=== PATIENT | male | born 1970 | race Caucasian/White ===

== ENCOUNTER 2017-04-19 22:22 | Observation (INO) | payer OTHER ==
[~2017-04-19] VITALS: Ht 188 cm; Wt 201.6 kg
[2017-04-19 23:06] LABS: BASOPHILS % 0.4 % (0.0-1.0); EOSINOPHILS # (AUTO) 0.1 (0.0-0.4); EOSINOPHILS % 2.2 % (0.0-6.0); HEMATOCRIT 39.1 % (38.2-49.6); HEMOGLOBIN 13.8 g/dL (14.0-18.0); LYMPHOCYTES # (AUTO) 1.8 (1.0-3.2); MEAN CORPUSCULAR HEMOGLOBIN 31.5 pg (28-32); MEAN CORPUSCULAR HGB CONC 35.3 g/dL (31-35); MEAN CORPUSCULAR VOLUME 89.3 fL (81-99); MONOCYTES # (AUTO) 0.4 (0.2-0.8); MONOCYTES % 6.9 % (4.4-11.3); NEUTROPHILS # (AUTO) 3.2 (2.1-6.9); PLATELET COUNT 202 x10e3/uL (140-360); RED BLOOD COUNT 4.38 x10e6/uL (4.3-5.7); RED CELL DISTRIBUTION WIDTH 14.4 % (11.7-14.4)
[2017-04-19 23:17] LABS: INR 1.19; PROTHROMBIN TIME 14.2 seconds (11.9-14.5)
[2017-04-19 23:18] LABS: PARTIAL THROMBOPLASTIN TIME 33.6 seconds (23.8-35.5)
[2017-04-19 23:28] LABS: ALANINE AMINOTRANSFERASE 37 IU/L (0-55); ALBUMIN 3.8 g/dL (3.5-5.0); ALBUMIN/GLOBULIN RATIO 1.1 (0.8-2.0); ALKALINE PHOSPHATASE 92 IU/L (40-150); ANION GAP 17.2 mmol/L (8-16); BLOOD UREA NITROGEN 11 mg/dL (7-26); BUN/CREATININE RATIO 9 (6-25); CALCIUM 9.3 mg/dL (8.4-10.2); CARBON DIOXIDE 26 mmol/L (22-29); CHLORIDE 100 mmol/L (98-107); CREATINE KINASE 201 IU/L (30-200); CREATININE, SERUM 1.22 mg/dL (0.72-1.25); EST GLOMERULAR FILTRATION RATE > 60 ML/MIN (60-); GLUCOSE 117 mg/dL (74-118); LIPASE 18 U/L (8-78); POTASSIUM 3.2 mmol/L (3.5-5.1); SODIUM 140 mmol/L (136-145)
[2017-04-20] VITALS (8 sets, daily range): BP systolic 98–140; BP diastolic 8–68
--- NOTE | 2017-04-20 00:26 | Diagnostic Imaging Report ---
EXAM: CHEST SINGLE (PORTABLE), AP 1 view INDICATION: Left-sided chest, jaw and arm pain COMPARISON: None FINDINGS: LINES/TUBES: None LUNGS: Perihilar and bibasilar atelectasis and bronchial thickening. PLEURA: No effusions or pneumothorax. HEART AND MEDIASTINUM: The heart is within normal size limits. Upper median sternotomy wires. Nonspecific densities projected over the lower thorax, may be external to the patient. BONES AND SOFT TISSUES: No acute findings. IMPRESSION: Perihilar and bibasilar atelectasis and bronchial thickening. This may be due to low inspiration or infection in the proper clinical setting. Signed by: Dr. Simona Godinez M.D. on 04/20/2017 12:22 AM
--- NOTE | 2017-04-20 00:33 | Diagnostic Imaging Report ---
EXAM: CT CHEST W INDICATION: Left-sided chest, jaw and arm pain COMPARISON: None TECHNIQUE: Multidetector CT scanning of the chest was performed. Coronal and sagittal multiplanar reformations were obtained. PE protocol performed. IV Contrast: 84 cc Isovue-370 CTDIvol has been reviewed. It is below the limits set by the Radiation Protocol Committee (RPC). FINDINGS: LUNGS AND AIRWAYS: The trachea and major bronchi are unremarkable. Limited evaluation for small pulmonary nodules secondary to respiratory artifact. Increased attenuation of the lungs secondary to low inspiration. Right middle lobe and lingular atelectasis and bronchial thickening. Scattered atelectatic changes in the lung bases. PLEURA: No effusions or pneumothorax. HEART, MEDIASTINUM, VESSELS: Mild cardiac enlargement, which may be secondary to low inspiration.. No abnormal pericardial effusion. No thoracic aortic aneurysm. 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 No mediastinal mass. Mildly prominent right hilar lymphoid tissue up to 1.8 cm. No evidence of a pulmonary embolism. UPPER ABDOMEN: No acute finding. MUSCULOSKELETAL: Incidental bilateral gynecomastia. Surgical changes of median sternotomy. IMPRESSION: Low inspiration with predominantly perihilar and right middle lobe atelectasis and bronchial thickening, which could be seen secondary to chronic changes or acute bronchitis. No evidence of a pulmonary embolism. Signed by: Dr. Simona Godinez M.D. on 04/20/2017 12:30 AM
[2017-04-20] MEDS ORDERED: KETOROLAC TROMETHAMINE 30 MG/ML VIAL IV STA (01:54)
[2017-04-20] MEDS ORDERED: POTASSIUM CHLORIDE 20 MEQ TAB CR PO STA (01:55)
[2017-04-20] MEDS ORDERED: ONDANSETRON HCL INJ 2 MG/ML VIAL IV PRN (02:00)
[2017-04-20] MEDS ORDERED: SODIUM CHLORIDE 0.9% 500ML 500 ML IV ONE (02:00)
[2017-04-20] MEDS ORDERED: DEXTROSE 50% SYRINGE 50 ML IV PRN (02:00)
--- OUTSIDE RECORDS SUMMARY | 2017-04-20 02:06 | XMS REPORT | Clinical Summary ---
Author Author Eliel Church Organization [facility] Address Unknown Phone Unavailable Care Team Providers Care Elevator Repairer Name Role Phone Asked, Pcp PCP Unavailable Allergies Active Allergy Reactions Severity Noted Date Comments Ampicillin Rash Low 01/21/2016 Other 10/23/2015 Paper tape Metoclopramide Hcl Rash Low 01/22/2016 Ondansetron Hcl Rash Low 10/23/2015 Current Medications Prescription Sig. Disp. Refills Start End Date Status Date aspirin (ECOTRIN) 325 MG Take 325 mg by mouth Active enteric coated tablet daily. enoxaparin (LOVENOX) 150 Inject 150 mg under the Active mg/mL injection skin daily. clopidogrel (PLAVIX) 75 Take 75 mg by mouth Active mg tablet daily. furosemide (LASIX) 40 mg Take 40 mg by mouth Active tablet daily. metFORMIN (GLUCOPHAGE) Take 1,000 mg by mouth 2 Active 1,000 mg tablet (two) times a day with meals. QUEtiapine (SEROquel) 400 Take 800 mg by mouth Active MG tablet nightly. atorvastatin (LIPITOR) 40 Take 40 mg by mouth 0 01/25/20 Active MG tablet nightly. 16 pantoprazole (PROTONIX) Take 40 mg by mouth once 1 04/12/19 Active 40 MG EC tablet daily. 17 gabapentin (NEURONTIN) Take 300 mg by mouth 3 Active 300 mg capsule (three) times a day as needed (pain). fluticasone-vilanterol Inhale 1 inhalations Active (BREO ELLIPTA) 100-25 daily. mcg/dose blister with device powder for inhalation isosorbide mononitrate Take 30 mg by mouth Active (IMDUR) 30 MG 24 hr daily. tablet nitroglycerin (NITROSTAT) Place 0.4 mg under the Active 0.4 MG SL tablet tongue every 5 (five) minutes as needed for chest pain. acetaminophen-codeine Take 1 tablet by mouth Active (TYLENOL WITH CODEINE #4) every 4 (four) hours as 300-60 mg per tablet needed for moderate pain. ibuprofen (ADVIL,MOTRIN) Take 800 mg by mouth Active 800 MG tablet every 8 (eight) hours as needed for mild pain. metoprolol tartrate Take 25 mg by mouth 2 Active (LOPRESSOR) 25 mg tablet (two) times a day. budesonide-formoterol Inhale 2 puffs 2 (two) 04/25/19 Discontin (SYMBICORT) 80-4.5 times a day. 17 ued mcg/actuation inhaler gabapentin (NEURONTIN) TAKE ONE CAPSULE BY MOUTH 1 04/12/19 04/25/19 Discontin 300 mg capsule 3 TIMES A DAY NEEDED 17 17 ued FOR PAIN isosorbide mononitrate TAKE 1 TABLET BY MOUTH 1 04/12/19 04/25/19 Discontin (IMDUR) 30 MG 24 hr EVERY DAY IN THE MORNING 17 17 ued tablet METOPROLOL SUCCINATE ORAL Take 25 mg by mouth 2 04/25/19 Discontin (two) times a day. 17 ued traMADol (ULTRAM) 50 mg Take 1 tablet (50 mg 20 tablet 0 04/25/19 tablet total) by mouth every 6 17 17 (six) hours as needed for moderate pain for up to 5 days. 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., MD underlying condition 04/24/2016 without complication, without long-term current use of insulin (Primary Dx); Other emphysema; Pulmonary embolism, other; Precordial pain; Chest pain, unspecified type after 04/19/2016 Family History Medical History Relation Name Comments Heart attack Brother Hodgkin's lymphoma Brother Factor V Leiden Father deficiency Heart attack Father Stroke Father Factor V Leiden Mother deficiency Heart attack Mother Hodgkin's lymphoma Sister Relation Name Status Comments Brother Father Mother Sister Social History Tobacco Use Types Packs/Day Years Used Date Current Every Day Smoker Cigarettes 0.5 35 Comments: prev 2-3 packs per day Alcohol Use Drinks/Week oz/Week Comments No Sex Assigned at Date Recorded Not on file Last Filed Vital Signs Vital Sign Reading Time Taken Blood Pressure 133/72 04/24/2016 3:53 PM LEGAL ADMINISTRATOR Pulse 90 04/24/2016 5:12 PM LEGAL ADMINISTRATOR Temperature 36.3 C (97.4 F) 04/24/2016 3:53 PM LEGAL ADMINISTRATOR Respiratory Rate 17 04/24/2016 5:12 PM LEGAL ADMINISTRATOR Oxygen Saturation 94% 04/24/2016 5:08 PM LEGAL ADMINISTRATOR Inhaled Oxygen - - Concentration Weight - - Height 188 cm (6' 2") 04/23/2016 7:29 PM LEGAL ADMINISTRATOR Body Mass Index - - Plan of Treatment Health Maintenance Due Date Last Done Comments FOOT EXAM 1980 OPHTHALMOLOGY EXAM 1980 URINE MICROALBUMIN 1980 INFLUENZA VACCINE 09/18/2016 Implants Implanted Type Area Railway Signal Technician Device Expiration Model / Identifier Date Serial / Lot . Procedures Procedure Name Priority Date/Time Associated Diagnosis Comments CV STRESS TEST NUCLEAR Routine 04/24/2016 Results for this CARDIO 2:08 PM LEGAL ADMINISTRATOR procedure are in the results section. after 04/19/2016 Results * CV stress test (04/24/2016 2:08 PM) Component Value Ref Range Resting HR 68 Resting BP 124 Peak MET Achieved 1.0 Protocol Name REGADENO Time in Exercise Phase 00:01:00 Max Systolic BP 124 Max Diastolic BP 92 Max Heart Rate 114 Max Predicted Heart Rate 175 Target HR Formula (220 - Age)*100% Test Indication CHEST PAIN Arrhy During Ex ECG Interp Before EX ECG Interp During Ex Ex Summary Comment Overall HR Response to Exercise Overall BP Response To Exercise Reason for Termination Stress Test Impression -Waveform interpreted in report associated with image study. No interpretation is provided as part of this Stress ECG report.-Electronically Signed By Alison LOGAN, Jordi Llamas ([id number]), editor trade journal Andra Muñoz ([id number]) on 04/25/2016 10:05:51 PM Specimen Performing Laboratory [facility] [address] [place] [address] * CV myocardial perfusion (04/24/2016 2:08 PM) Specimen Performing Laboratory [facility] [address] [place] [address] Narrative Nuclear Cardiology and Cardiac CT [address] [place] [address] Myocardial Perfusion Imaging Report Stress ECG tracings are available in MethOD, HPF and CV Web All ECg interpretations are included in this report Pat.Name:ARANZA LOPEZ Pat.ID:[id number] .Date: 04/24/2016Refer.MD:EARL RUGGIERO MD Exam Time: 11:58:00 AM Study Type:Myocardial Perfusion Imaging Height:73inWeight:324lb BSA: 2.64 m2 DOBAge:1970 ,45Y Sex: MALEBP: 124/92 HR:68 bpmHCT: 36.6 % Nuclear Tech:Wai Philip, CMRT, TRACTOR OPERATOR HELPER/Adrian Douglas, TRACTOR OPERATOR HELPER, ARRT/Jeremías Bowden, TRACTOR OPERATOR HELPER, ARRT Pat. Stat.:Inpatient Room:37 Nuclear Event ID:[id number] Order ID:[id number] Reason for Study:Chest pain, unspecified* History / Clinical:Congestive heart failure, COPD, Coronary artery disease, Family history CAD, Hyperlipidemia, Hypertension, Transient ischemic attack/CVA, CAD, h/o [place] Procedures:Two Day Stress / Rest Race: Risk Factors:Cardiovascular Disease, Hyperlipidemia, Hypertension, Smoker, Family history of cardiovascular disease Clinical Symptoms:Regadenoson Physical Exam:S1, S2 Surgery: Serum K+ Date,3.5/04/24/2016, Troponin I Date,1)negative /04/23/2016 , BUN/Creatinine Date,12/0.9/04/24/2016 Medications:Aspirin, Insulin, Lipitor, Nitrates, Plavix, Breo-Ellipta, Atrovent, Lovenox Albeuterol SUMMARY: SCINTIGRAPHIC RESULTS Perfusion Defect Size (% LV) 0 % Total 0 % Ischemia 0 % Scar Left Ventricular Perfusion Results There is normal tracer distribution throughout the myocardium during stress. Gated SPECT Results The post-stress left ventricular ejection fraction is 76 % with normal regional wall motion and left ventricular thickening.Left ventricular end-diastolic volume is 97 ml; end-systolic volume is23 ml. The left ventricle is of normal size at stress.The right ventricle is of normal size with normal wall motion. Conclusion Normal regadenoson Tc-99m tetrofosmin myocardial perfusion study. The left ventricular ejection fraction is normal. Comments Patients with a normal stress myocardial perfusion study have a low (< 1%) annual risk of cardiac or nonfatal myocardial infarction. Study Quality/Artifacts The study quality is good. Comparison to Previous Study None available. STRESS: Baseline Vital Signs:Intervention: Regadenoson 0.4mg /5ml IV over 10 seconds followed by radiotracer injection and 5ml saline flush ECG: Normal Sinus Rhythm HR:68 BP:124/92 Stress Test Results: Target HR: 149 Symptoms and Complications: Arrhythmias: None Terminated: As per Regadenoson protocol Symptoms:Chest pain Complications: None Conclusions: Normal heart rate response to pharmacological stress, Normal blood pressure response to pharmacological stress Stress ECG Interp: No ischemic ST segment change occurred with stress. Signed 04/24/2016 02:37 PM Shannan Gloria MD Procedure Note Interface, Radiology Results In - 04/24/2016 2:37 PM [facility] Nuclear Cardiology and Cardiac CT [address] [place] [address] Myocardial Perfusion Imaging Report Stress ECG tracings are available in MethOD, [facility] and [employer] Web All ECg interpretations are included in this report Pat.Name: ARANZA LOPEZ Pat.ID: [id number] .Date: 04/24/2016 Refer.MD: EARL RUGGIERO MD Exam Time: 11:58:00 AM Study Type:Myocardial Perfusion Imaging Height: 73in Weight: 324lb BSA: 2.64 m2 Age: 4 1970,45Y Sex: MALE BP: 124/92 HR: 68 bpm HCT: 36.6 % Nuclear Tech:Wai Philip, SANDIPT, TRACTOR OPERATOR HELPER/Adrian Douglas TRACTOR OPERATOR HELPER, ARRT/TOSHIA Kathleen, ARRT Pat. Stat.:Inpatient Room: [facility] [place] Nuclear Event ID:[id number] Order ID: [id number] Reason for Study:Chest pain, unspecified* History / Clinical:Congestive heart failure, COPD, Coronary artery disease, Family history CAD, Hyperlipidemia, Hypertension, Transient ischemic attack/CVA, CAD, h/o [place] Procedures:Two Day Stress / Rest Race: Risk Factors:Cardiovascular Disease, Hyperlipidemia, Hypertension, Smoker, Family history of cardiovascular disease Clinical Symptoms:Regadenoson Physical Exam:S1, S2 Surgery: Serum K+ Date, 3.5/04/24/2016, Troponin I Date, 1)negative /04/23/2016 , BUN/Creatinine Date, 120.904/24/2016 Medications:Aspirin, Insulin, Lipitor, Nitrates, Plavix, Breo-Ellipta, Atrovent, Lovenox Albeuterol SUMMARY: SCINTIGRAPHIC RESULTS Perfusion Defect Size (% LV) 0 % Total 0 % Ischemia 0 % Scar Left Ventricular Perfusion Results There is normal tracer distribution throughout the myocardium during stress. Gated SPECT Results The post-stress left ventricular ejection fraction is 76 % with normal regional wall motion and left ventricular thickening. Left ventricular end-diastolic volume is 97 ml; end-systolic volume is 23 ml. The left ventricle is of normal size at stress. The right ventricle is of normal size with normal wall motion. Conclusion Normal regadenoson Tc-99m tetrofosmin myocardial perfusion study. The left ventricular ejection fraction is normal. Comments Patients with a normal stress myocardial perfusion study have a low (< 1%) annual risk of cardiac or nonfatal myocardial infarction. Study Quality/Artifacts The study quality is good. Comparison to Previous Study None available. STRESS: Baseline Vital Signs: Intervention: Regadenoson 0.4mg/5ml IV over 10 seconds followed by radiotracer injection and 5ml saline flush ECG: Normal Sinus Rhythm HR: 68 BP: 124/92 Stress Test Results: Target HR: 149 Symptoms and Complications: Arrhythmias: None Terminated: As per Regadenoson protocol Symptoms: Chest pain Complications: None Conclusions: Normal heart rate response to pharmacological stress, Normal blood pressure response to pharmacological stress Stress ECG Interp: No ischemic ST segment change occurred with stress. Signed 04/24/2016 02:37 PM Shannan Gloria MD * POC glucose (04/24/2016 9:52 AM) Component Value Ref Range POC glucose 152 (H) 65 - 99 mg/dL Comment: [facility] Notified RN Meter ID: [id number] Medical Lead: Abebe Lobo Specimen Performing Laboratory [facility] DEPARTMENT OF PATHOLOGY AND GENOMIC MEDICINE [address] [place] [address] * B natriuretic peptide (04/24/2016 9:35 AM) Only the most recent of 2 results within the time period is included. Component Value Ref Range BNP 19 0 - 100 pg/mL Specimen Performing Laboratory Blood [facility] DEPARTMENT OF PATHOLOGY AND GENOMIC MEDICINE [address] [place] [address] * Respiratory pathogen panel (04/24/2016 9:30 AM) Component Value Ref Range Respiratory pathogen Negative for all pathogens tested: panel Negative for Adenovirus Negative for Coronavirus HKU1 Negative for Coronavirus NL63 Negative for Coronavirus 229E Negative for Coronavirus OC43 Negative for Human Metapneumovirus Negative for Rhinovirus/Enterovirus Negative for Influenza A Negative for Influenza A/H1 Negative for Influenza A/H3 Negative for Influenza A/H1-2009 Negative for Influenza B Negative for Parainfluenza Virus 1 Negative for Parainfluenza Virus 2 Negative for Parainfluenza Virus 3 Negative for Parainfluenza Virus 4 Negative for Respiratory Syncytial Virus Negative for Bordetella pertussis Negative for Chlamydophila pneumoniae Negative for Mycoplasma pneumoniae This real-time PCR assay detects the presence of nucleic acids (RNA or DNA) for the respiratory pathogens listed. A result of "Not-detected" does not exclude the possibility of the presence of one or more pathogens at concentrations less than the detectable limits of the assay. Comment: Specimen Information Specimen Source: Nasopharyngeal Specimen Site: washing Specimen Performing Laboratory Nasopharyngeal - Washing [facility] DEPARTMENT OF PATHOLOGY AND GENOMIC MEDICINE [address] [place] [address] * ECG ED Preliminary Interpretation - NOT AN ORDER (04/24/2016 3:32 AM) Justyn Ochoa MD 04/24/20163:32 AM ECG ED Preliminary Interpretation - Not an Order Performed by: INGRID OCHOA Authorized by: INGRID OCHOA ECG reviewed by ED Physician in the absence of a bun icer: yes Previous ECG: Previous ECG:Unavailable Interpretation: Interpretation: abnormal Rate: ECG rate:79 ECG rate assessment: normal Rhythm: Rhythm: sinus rhythm Ectopy: Ectopy: none QRS: QRS axis:Normal QRS intervals:Normal Conduction: Conduction: normal ST segments: ST segments:Normal T waves: T waves: flattening and inverted Flattening:AVL Inverted:V2 * Estimated GFR (04/24/2016 3:15 AM) Only the most recent of 3 results within the time period is included. Component Value Ref Range GFR Non Af Amer >90 mL/min/1.73 m2 GFR Af Amer >90 mL/min/1.73 m2 Comment: Chronic kidney disease: <60 mL/min/1.73m2 Kidney failure: <15 mL/min/1.73m2 The estimated GFR is calculated from the IDMS-traceable Modification of Diet in Renal Disease Equation. The accuracy of the calculation is poor when the creatinine is normal. Calculated values >90 mL/min/1.73m2 are not reported. This equation has not been validated in children (<18 years), women, the elderly (>70 years), or ethnic groups other than Caucasians and Americans. Specimen Performing Laboratory Plasma specimen [facility] DEPARTMENT OF PATHOLOGY AND GENOMIC MEDICINE [address] [place] [address] * Troponin (04/24/2016 3:15 AM) Only the most recent of 2 results within the time period is included. Component Value Ref Range Troponin <0.30 0.00 - 0.30 ng/mL Comment: 0.30 - 1.49 ng/ml May indicate increased risk of acute coronary syndrome. >=1.5 ng/ml Consistent with acute myocardial infarction. The diagnostic value of a single normal or non-diagnostic result is questionable. Serial samples at 2-6 hour intervals are required to rule out acute myocardial injury. Specimen Performing Laboratory Plasma specimen [facility] DEPARTMENT OF PATHOLOGY AND GENOMIC MEDICINE [address] [place] [address] * Partial thromboplastin time (04/24/2016 3:15 AM) Component Value Ref Range PTT 28.9 23.0 - 36.0 sec Comment: PTT therapeutic range for unfractionated heparin is 61.0-112.0 seconds which corresponds to Anti-Xa 0.3-0.7 U/ml. Specimen Performing Laboratory Blood [facility] DEPARTMENT OF PATHOLOGY AND [facility] [address] [place] [address] * Prothrombin time with INR (04/24/2016 3:15 AM) Only the most recent of 2 results within the time period is included. Component Value Ref Range Prothrombin time 13.4 12.0 - 15.0 sec INR 1.0 Comment: The International Normalized Ratio (INR) is a therapeutic monitoring tool for patients who are stable on oral anticoagulant therapy. An INR of 2.0-3.0 is suggested for deep vein thrombosis/pulmonary embolism. Specimen Performing Laboratory Blood [facility] DEPARTMENT OF PATHOLOGY AND [address] [address] * CBC with platelet and differential (04/24/2016 3:15 AM) Only the most recent of 3 results within the time period is included. Component Value Ref Range WBC 4.71 4.50 - 11.00 k/uL RBC 4.13 (L) 4.40 - 6.00 m/uL HGB 12.5 (L) 14.0 - 18.0 g/dL HCT 36.6 (L) 41.0 - 51.0 % MCV 88.6 82.0 - 100.0 fL MCH 30.3 27.0 - 34.0 pg MCHC 34.2 31.0 - 37.0 g/dL RDW - SD 44.3 37.0 - 55.0 fL MPV 9.6 8.8 - 13.2 fL Platelet count 198 150 - 400 k/uL Nucleated RBC 0.00 /100 WBC Neutrophils 35.7 (L) 39.0 - 69.0 % Lymphocytes 51.2 (H) 25.0 - 45.0 % Monocytes 8.9 0.0 - 10.0 % Eosinophils 3.2 0.0 - 5.0 % Basophils 0.6 0.0 - 1.0 % Immature granulocytes 0.4Comment: "Immature granulocytes" 0.0 - 1.0 % (promyelocytes, myelocytes, metamyelocytes) Specimen Performing Laboratory Blood [facility] DEPARTMENT OF PATHOLOGY AND [facility] [address] [place] [address] * Thyroid stimulating hormone (04/24/2016 3:15 AM) Component Value Ref Range TSH 1.67 0.27 - 4.20 uIU/mL Specimen Performing Laboratory Plasma specimen [facility] DEPARTMENT OF PATHOLOGY AND GENOMIC MEDICINE [address] [place] [address] * T4, free (04/24/2016 3:15 AM) Component Value Ref Range T4, free 1.0 0.9 - 1.7 ng/dL Specimen Performing Laboratory Plasma specimen [facility] DEPARTMENT OF PATHOLOGY AND GENOMIC MEDICINE [address] [place] [address] * Hemoglobin A1c (04/24/2016 3:15 AM) Component Value Ref Range Hemoglobin A1C 5.1 4.0 - 5.6 % Comment: HbA1c cutoffs for diagnosing diabetes: 4.0% - 5.6%=normal 5.7% - 6.4%=increased risk for diabetes (prediabetes) >=6.5%=diabetes Goals for glycemic control (ADA 2016) < 7.0% Target for non adults with diabetes. More or less stringent targets may be appropriate for individual patients. <7.5% Target for Children and adolescents with type 1 diabetes. Specimen Performing Laboratory Blood [facility] DEPARTMENT OF PATHOLOGY AND GENOMIC MEDICINE [address] [place] [address] * Lipid panel (04/24/2016 3:15 AM) Component Value Ref Range Cholesterol 181 <200 mg/dL Triglycerides 231 (H) <150 mg/dL HDL cholesterol 28 (L) >40 mg/dL LDL cholesterol 138 (H)Comment: Result obtained by direct LDL <100 mg/dL measurement Lipid panel SeeBelow interpretation Comment: Total Cholesterol (mg/dL) <200 Desirable 200-239 Borderline-high >=240 High Triglycerides (mg/dL) <150 Normal 150-199 Borderline-high 200-499 High >=500 Very high HDL Cholesterol (mg/dL) <40 Low (male) <40 Low (female) LDL Cholesterol (mg/dL) <100 Optimal 100-129 Near or above optimal 130-159 Borderline-high 160-189 High >=190 Very high Risk Catergories that modify LDL goals. Risk Catergories LDL goal (mg/dL) CHD and CHD risk equivalent <100 (10-year risk >20%) Multiple (2+) risk factors <130 (10-year risk=<20%) 0-1 risk factors <160 (<10-year risk) Defining levels of lipids in metabolic syndrome Triglycerides >=150 mg/dL HDL Cholesterol Men <40 mg/dL Women <40 mg/dL Non-HDL cholesterol is a second target for therapy in persons with high triglycerides (>=200 mg/dL) Specimen Performing Laboratory Plasma specimen [facility] DEPARTMENT OF PATHOLOGY AND GENOMIC MEDICINE [address] [place] [address] * Basic metabolic panel (04/24/2016 3:15 AM) Only the most recent of 2 results within the time period is included. Component Value Ref Range Sodium 139 135 - 148 mEq/L Potassium 3.4 (L) 3.5 - 5.0 mEq/L Chloride 103 98 - 112 mEq/L CO2 24 24 - 31 mEq/L Anion gap 12 7 - 15 mEq/L Comment: Starting from May , anion gap calculation no longer incorporates potassium. Please note the change. BUN 12 6 - 20 mg/dL Creatinine 1.0 0.7 - 1.2 mg/dL Glucose 110 (H) 65 - 99 mg/dL Calcium 8.3 8.3 - 10.2 mg/dL Specimen Performing Laboratory Plasma specimen [facility] DEPARTMENT OF PATHOLOGY AND [facility] [address] [place] [address] * D-dimer (04/24/2016 12:58 AM) Component Value Ref Range D-dimer 0.32 0.00 - 0.40 ug/mL FEU Comment: Units are ug/ml Fibrinogen Equivalent Unit. When combined with low clinical probability, D-dimer results of less than 0.5 ug/ml FEU have a good negative predictive value in excluding PE or DVT. For D-dimer results greater than 0.5 ug/ml FEU further testing is indicated if PE or DVT is suspected clinically. Elevated D-dimer results have been reported in DVT, PE, and DIC cases and may indicate the presence of a clot. D-dimer results may be elevated due to old age, , inflammatory diseases, trauma, post-operative states, sepsis, and malignancies. Specimen Performing Laboratory Blood [facility] DEPARTMENT OF PATHOLOGY AND GENOMIC MEDICINE [address] [place] [address] * XR Chest 1 Vw (04/23/2016 8:59 PM) Specimen Performing Laboratory [facility] [address] [place] [address] Narrative Examination: XR CHEST 1 VW Clinical history: chest pain Comparison: January 21, 2016 Impression: 1. Mild interstitial prominence likely represents borderline pulmonary congestion. The heart is not enlarged. 2. No confluent infiltrate or effusion is demonstrated. 3. Postsurgical changes are stable. Appearance of the chest is otherwise unchanged. [facility]-[id number] Procedure Note Hm Interface, Radiology Results Incoming - 04/23/2016 9:04 PM LEGAL ADMINISTRATOR Examination: XR CHEST 1 VW Clinical history: chest pain Comparison: January 21, 2016 Impression: 1. Mild interstitial prominence likely represents borderline pulmonary congestion. The heart is not enlarged. 2. No confluent infiltrate or effusion is demonstrated. 3. Postsurgical changes are stable. Appearance of the chest is otherwise unchanged. [facility]-[id number] * ECG 12 lead (04/23/2016 8:42 PM) Component Value Ref Range Ventricular rate 79 Atrial rate 79 CA interval 150 QRSD interval 88 QT interval 408 QTC interval 467 P axis 1 64 QRS axis 1 43 T wave axis 64 EKG impression Normal sinus rhythm-Possible Left atrial enlargement-Borderline ECG-In automated comparison with ECG of 22-JAN-2016 00:47,-No significant change was found- Specimen Performing Laboratory [facility] [address] [place] [address] * Creatine kinase, total (CPK) (04/23/2016 8:30 PM) Component Value Ref Range Creatine kinase 120 39 - 308 U/L Specimen Performing Laboratory Plasma specimen [facility] DEPARTMENT OF PATHOLOGY AND GENOMIC MEDICINE [address] [place] [address] * Comprehensive metabolic panel (04/23/2016 8:30 PM) Component Value Ref Range Sodium 140 135 - 148 mEq/L Potassium 3.8 3.5 - 5.0 mEq/L Chloride 101 98 - 112 mEq/L CO2 23 (L) 24 - 31 mEq/L Anion gap 16 (H) 7 - 15 mEq/L Comment: Starting from May , anion gap calculation no longer incorporates potassium. Please note the change. BUN 13 6 - 20 mg/dL Creatinine 0.9 0.7 - 1.2 mg/dL Glucose 98 65 - 99 mg/dL Calcium 8.8 8.3 - 10.2 mg/dL Protein 6.6 6.3 - 8.3 g/dL Comment: [place] 4.6-7.0 g/dL 1 week 4.4-7.6 g/dL 7 months-1year 5.1-7.3 g/dL 1-2 years 5.6-7.5 g/dL >3 years 6.0-8.0 g/dL 18-150 6.3-8.3 g/dL Albumin 3.8 3.5 - 5.0 g/dL A/G ratio 1.4 0.7 - 3.8 Alkaline phosphatase 90 40 - 129 U/L AST 22 10 - 50 U/L ALT 23 5 - 50 U/L Total bilirubin 0.3 0.0 - 1.2 mg/dL Specimen Performing Laboratory Plasma specimen [facility] DEPARTMENT OF PATHOLOGY AND GENOMIC MEDICINE [address] [place] [address] after 04/19/2016 Insurance Payer Benefit Subscriber ID Type Phone Address Plan / Group [employer] MEDICAID [employer] xxxxxxxxx HMO COMM [employer]+ VIMAL [address] [place] [address]
--- OUTSIDE RECORDS SUMMARY | 2017-04-20 02:07 | XMS REPORT | Clinical Summary ---
Author Author AMISH PhotoTLCMinidoka [facility] HospitalDNA SEQJeff[facility] Hospital Organization [facility] Address Unknown Phone Unavailable Care Team Providers Care Passenger Service Manager Name Role Phone PCP Unavailable Allergies Active Allergy Reactions Severity Noted Date Comments Baclofen 12/25/2016 Prochlorperazine 01/05/2017 Edisylate Cyclobenzaprine 12/25/2016 Florien Analogues 01/05/2017 Caused nausea and Syncope ( When he passed out he broke his neck ) Morphine 12/25/2016 Other 10/23/2015 Paper tape Ampicillin Rash Low 01/21/2016 Metoclopramide Hcl Rash Low 01/22/2016 Ondansetron Hcl Rash Low 10/23/2015 Current Medications Prescription Sig. Disp. Refills Start End Date Status Date albuterol (ACCUNEB) 0.63 Take 1 ampule by Active mg/3 mL nebulizer nebulization every 6 solution (six) hours as needed for Wheezing or Shortness of Breath . aspirin 81 MG EC tablet Take 81 mg by mouth Active daily. budesonide (PULMICORT) 90 Inhale 1 puff by mouth Active mcg/actuation inhaler via inhaler 2 (two) times daily. clopidogrel (PLAVIX) 75 Take 75 mg by mouth Active mg tablet daily. metFORMIN (GLUCOPHAGE) Take 1,000 mg by mouth 2 Active 1000 MG tablet (two) times daily with breakfast and dinner. metoprolol (LOPRESSOR) 25 Take 25 mg by mouth 2 Active MG tablet (two) times daily. pantoprazole (PROTONIX) Take 20 mg by mouth Active 20 MG tablet daily. potassium chloride Take 20 mEq by mouth Active (KLOR-CON) 20 mEq packet daily. ranolazine (RANEXA) 500 Take 500 mg by mouth 2 Active MG 12 hr tablet (two) times daily. QUEtiapine (SEROQUEL) 400 Take 400 mg by mouth Active MG tablet nightly. hydrOXYzine (ATARAX) 50 Take 50 mg by mouth every Active MG tablet 8 (eight) hours as needed for Anxiety. isosorbide mononitrate Take 30 mg by mouth. Active (IMDUR) 30 MG 24 hr tablet atorvastatin (LIPITOR) 40 Take 40 mg by mouth. 01/25/20 Active MG tablet 16 furosemide (LASIX) 40 MG Take 40 mg by mouth 2 Active tablet (two) times daily . ALPRAZolam (XANAX) 0.5 MG Take 0.5 mg by mouth Active tablet every 8 (eight) hours as needed for Anxiety. doxepin (SINEQUAN) 100 MG Take 100 mg by mouth Active capsule nightly. DULoxetine (CYMBALTA) 60 Take 60 mg by mouth Active MG capsule daily. levETIRAcetam (KEPPRA) Take 500 mg by mouth 2 Active 500 MG tablet (two) times daily. LORazepam (ATIVAN) 0.5 MG Take 0.5 mg by mouth Active tablet every 12 (twelve) hours as needed for Anxiety. melatonin 5 mg Cap Take 5 mg by mouth Active nightly. methadone (DOLOPHINE) 5 Take 5 mg by mouth 2 Active MG tablet (two) times daily as needed for Pain. mirtazapine (REMERON) 7.5 Take 7.5 mg by mouth Active MG tablet nightly. oxyCODONE-acetaminophen Take 1 tablet by mouth Active (PERCOCET) 10-325 mg per every 6 (six) hours as tablet needed for Pain. acetaminophen (TYLENOL) Take 650 mg by mouth Active 325 MG tablet every 6 (six) hours as needed for Pain. carisoprodol (SOMA) 350 Take 1 tablet (350 mg 90 tablet 0 02/07/20 Active MG tablet total) by mouth every 8 17 (eight) hours as needed for Muscle spasms. Max Daily Amount: 1,050 mg pregabalin (LYRICA) 100 Take 1 capsule (100 mg 60 capsule 2 02/19/19 Active MG capsule total) by mouth 2 (two) 18 times daily. Max Daily Amount: 200 mg atorvastatin (LIPITOR) 40 Take 40 mg by mouth 01/10/20 Discontin MG tablet daily. 17 ued carisoprodol (SOMA) 350 Take 350 mg by mouth 01/25/20 Discontin MG tablet every 8 (eight) hours as 17 ued needed for Muscle spasms. isosorbide dinitrate Take 30 mg by mouth 01/15/20 Discontin (ISORDIL) 30 MG tablet daily. 17 ued furosemide (LASIX) 40 MG Take 40 mg by mouth 2 01/25/20 Discontin tablet (two) times daily. 17 ued mirtazapine (REMERON) 15 Take 15 mg by mouth 01/25/20 Discontin MG tablet nightly. 17 ued naproxen Take 220 mg by mouth 01/25/20 Discontin (ALEVE,ANAPROX,MIDOL) 220 every 6 (six) hours. 17 ued MG tablet acetaminophen 500 mg Take 1,000 mg by mouth 2 01/25/20 Discontin coapsule (two) times daily. 17 ued ALPRAZolam (XANAX) 1 MG I po q6hr prn x4days. 16 tablet 0 01/08/20 01/25/20 Discontin tablet 17 17 ued fluticasone-vilanterol Inhale by mouth via 01/25/20 Discontin 100-25 mcg/dose DsDv inhaler. 17 ued gabapentin (NEURONTIN) Take 300 mg by mouth. 01/25/20 Discontin 300 MG capsule 17 ued nitroglycerin (NITROSTAT) Place 0.4 mg under the 01/25/20 Discontin 0.4 MG SL tablet tongue. 17 ued aspirin 325 MG EC tablet Take 325 mg by mouth. 01/25/20 Discontin 17 ued clopidogrel (PLAVIX) 75 Take 75 mg by mouth. 01/10/20 Discontin mg tablet 17 ued metFORMIN (GLUCOPHAGE) Take 1,000 mg by mouth. 01/25/20 Discontin 1000 MG tablet 17 ued metoprolol (LOPRESSOR) 25 Take 25 mg by mouth. 01/25/20 Discontin MG tablet 17 ued pantoprazole (PROTONIX) Take 40 mg by mouth. 04/12/19 01/25/20 Discontin 40 MG tablet 17 17 ued SYMBICORT 80-4.5 11/25/19 01/25/20 Discontin mcg/actuation inhaler 17 17 ued furosemide (LASIX) 20 MG 11/25/19 01/25/20 Discontin tablet 17 17 ued fenofibrate (TRICOR) 145 Take 1 tablet (145 mg 30 tablet 11 01/16/20 01/25/20 Discontin MG tablet total) by mouth daily. 17 17 ued pregabalin (LYRICA) 100 Take 100 mg by mouth 2 02/19/19 Discontin MG capsule (two) times daily. 18 ued Active Problems Problem Noted Date Bilateral swelling of feet 01/22/2016 Chest pain 01/21/2016 Precordial pain 01/21/2016 Encounters Date Type Specialty Care Team Description 03/20/2017 Orders Only Family Janet Wang MD 03/15/2017 Orders Only Family Janet Wang MD 03/06/2017 Office Visit Family Janet Wang, Bipolar disorder, in MD partial remission, most recent episode manic (HCC) (Primary Dx);Fall as cause of accidental injury in home as place of occurrence, initial encounter;Chronic bilateral low back pain without sciatica;Essential hypertension;Right hip pain;DM coma, type 2 (HCC) 02/19/2017 Refill Janet Cervantes MD 02/14/2017 Orders Only Family Janet Wang MD 02/08/2017 Orders Only Family Janet Wang MD 02/06/2017 Telephone Family Janet Wang, Medication Refill 01/29/2017 Telephone Family Janet Wang Advice Only 01/24/2017 Office Visit Family Altagracia Mcnally, Bipolar affective BRIM CUTTER disorder, current episode mixed, current episode severity unspecified (HCC) (Primary Dx);Type 2 diabetes mellitus with other neurologic complication, without long-term current use of insulin (HCC);History of CVA (cerebrovascular accident);Coronary artery disease involving paimiut heart without angina pectoris, unspecified vessel or lesion type;Chronic pain syndrome;Essential hypertension 01/21/2017 Orders Only Family Narciso Boston MD 01/18/2017 Telephone Janet Cervantes Advice Only 01/15/2017 Orders Only Janet Cervantes MD 01/14/2017 Telephone Janet Cervantes, Advice Only 01/14/2017 Orders Only Janet Cervantes MD 01/07/2017 Refill Family Medicine Janet Stewart MD 01/05/2017 Office Visit Family Medicine Janet Stewart, Myositis of multiple MD sites, unspecified myositis type (Primary Dx);Bipolar affective disorder, current episode mixed, current episode severity unspecified (HCC);Opioid dependence with opioid-induced mood disorder (HCC);Type 2 diabetes mellitus with other neurologic complication, without long-term current use of insulin (HCC);History of CVA (cerebrovascular accident);Morbid obesity (HCC);Other hyperlipidemia 01/02/2017 Telephone Family Medicine Janet Stewart, Medication Management 01/01/2017 Orders Only Family Medicine Janet Stewart MD 12/29/2016 Telephone Family Medicine Elizabeth Regalado, Chest Pain 12/28/2016 Telephone Family Medicine Elizabeth Regalado, Pain Management 12/25/2016 Office Visit Family Medicine Altagracia Allen, Chronic pain syndrome BRIM CUTTER (Primary Dx);Essential hypertension;Chronic obstructive pulmonary disease, unspecified COPD type (HCC);Gastroesophageal reflux disease without esophagitis after 04/19/2016 Family History Medical History Relation Name Comments Hodgkin's lymphoma Brother Stroke Brother COPD Father Cancer Father Heart disease Father Stroke Father Hodgkin's lymphoma Maternal Grandmother COPD Mother Heart disease Mother Hodgkin's lymphoma Mother Heart disease Sister Relation Name Status Comments Brother Father Maternal Grandmother Mother Sister Social History Tobacco Use Types Packs/Day Years Used Date Former Smoker Cigarettes Alcohol Use Drinks/Week oz/Week Comments No Sex Assigned at Date Recorded Not on file Last Filed Vital Signs Vital Sign Reading Time Taken Blood Pressure 146/88 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 Pulse 95 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 Specimen Performing Laboratory Blood OTHER (EXTERNAL) * XR spine lumbar 2 or 3 views (03/15/2017) * Drug screen, urine, comprehensive (03/15/2017) Specimen Performing Laboratory Urine OTHER (EXTERNAL) * XR ankle 2 views left (01/31/2017) Specimen Performing Laboratory OTHER (EXTERNAL) * Basic Metabolic Panel (01/24/2017) Specimen Performing Laboratory Blood OTHER (EXTERNAL) * Comprehensive metabolic panel (01/07/2017) Specimen Performing Laboratory Blood OTHER (EXTERNAL) * CBC with platelet count + automated diff (12/26/2016) Only the most recent of 4 results within the time period is included. Specimen Performing Laboratory Blood OTHER (EXTERNAL) after 04/19/2016
--- OUTSIDE RECORDS SUMMARY | 2017-04-20 02:07 | XMS REPORT ---
Author Author [facility] Address Unknown Phone Unavailable Care Team Providers Care Calender Wind Up Tender Name Role Phone UNKNOWN, REFFERING PP Unavailable KISHOR, LAIRD Unavailable Unavailable RASSOLI, AMIR Unavailable Unavailable Divinsky, Ianir Unavailable Unavailable Problems This patient has no known problems. Allergies, Adverse Reactions, Alerts This patient has no known allergies or adverse reactions. Medications This patient has no known medications. Results Test Description Test Time Test Comments Text Results Atomic Results Result Comments D-Dimer, Quantitative 2016-09-07 09:54:00 D-Dimer, Quant (test code=DDQNT) 620 ng/mL 0-500 Troponin [id number] 09:37:00* Test Item Value Reference Range Comments Troponin T (test code=JOSÉ) <0.010 ng/mL 0.000-0.090 Comprehensive Metabolic Wxzbw6238-38-92 09:37:00* Test Item Value Reference Range Comments Sodium (test code=NA) 138 mmol/L 135-145 Potassium (test code=K) 3.6 mmol/L 3.5-5.1 Chloride (test code=CL) 103 mmol/L 98-105 Carbon Dioxide (test code=CO2) 26 mmol/L 22-29 Glucose (test code=GLU) 107 mg/dL 70-115 Blood Urea Nitrogen (test code=BUN) 14 mg/dL 6-20 Creatinine (test code=CREAT) 0.9 mg/dL 0.7-1.2 Calcium (test code=CA) 8.7 mg/dL 8.3-10.5 Prot Total (test code=TP) 5.5 g/dL 6.4-8.3 Albumin (test code=ALB) 3.6 g/dL 3.5-5.2 A/G Ratio (test code=AGRATIO) 1.9 Ratio Globulin (test code=GLOB) 1.9 2.9-3.1 Bili Total (test code=TBIL) 0.4 mg/dL 0.1-0.9 Alk Phos (test code=APHOS) 84 U/L 40-129 AST (test code=AST) 25 U/L 1-40 ALT (test code=ALT) 22 U/L 1-41 BUN/Creatinine Ratio (test code=BCRATIO) 15.6 Anion Gap (test code=AGAP) 9 mmol/L 7-16 Estimated GFR (test code=GFR) >60 mL/min/1.73m2 eGFR (estimated Glomerular Filtration Rate) is an estimated value,calculated from the patient's serum creatinine using the MDRD equation.It is NOT the patient's actual GFR. The eGFR provides a more clinicallyuseful measure of kidney disease than serum creatinine alone.This calculation takes sex and race into account, if the informationis provided. If the race is not provided, and the patient isAfrican- Belgian, multiply by 1.212. If sex is not provided, and thepatient is female, multiply by 0.742. Results for patients <18 years ofage have not been validated by the MDRD study and should be interpretedwith caution.eGFR Result Interpretation:eGFR > or=60 is in the Normal RangeeGFR < 60 may mean kidney diseaseeGFR < 15 may mean kidney failureRanges recommended by the National Kidney Foundation,http://nkdep.nih.gov CBC with Jmtrlxkuihgw4069-14-52 09:00:00* Test Item Value Reference Range Comments WBC (test code=WBC) 5.2 K/cumm 4.4-10.5 RBC (test code=RBC) 4.09 M/cumm 4.10-5.70 Hemoglobin (test code=HGB) 12.6 gm/dL 13.4-17.4 Hematocrit (test code=HCT) 36.2 % 38.7-52.0 MCV (test code=MCV) 88.5 fL 80-100 MCH (test code=MCH) 30.9 pg 27.0-32.5 MCHC (test code=MCHC) 34.9 g/dL 32.0-37.5 RDW (test code=RDW) 15.5 % 11.5-14.5 Platelet Count (test code=PLTCT) 191 K/cumm 140-440 MPV (test code=MPV) 8.4 fL Diff Method (test code=DIFFM) Auto Neutrophil (test code=NEUT) 61.9 % 36-70 Lymphocyte (test code=LYMPH) 27.7 % 12-44 Monocyte (test code=MONO) 6.7 % 0-11 Eosinophil (test code=EOS) 3.4 % 0-7 Basophil (test code=BASO) 0.3 % 0-2 Neutro Abs (test code=ANEUT) 3.2 K/cumm 1.6-7.4 Lymph Abs (test code=ALYMPH) 1.4 K/cumm 0.5-4.6 [place] Abs (test code=AMONO) 0.4 K/cumm 0.0-1.2 Eos Abs (test code=AEOS) 0.18 K/cumm 0.00-0.74 Baso Abs (test code=ABASO) 0.0 K/cumm 0.00-0.21 Glucose blood lajtgynoflo7468-38-94 11:05:00* Test Item Value Reference Range Comments Glucose blood fingerstick (test qxwg=IQN4416) 173 mg/dL 65-120 Complete blood count (CBC) with automated white blood cell (WBC) hhgyxfrvnyjb1158-72-08 06:15:00* Test Item Value Reference Range Comments White blood cell count (test tkco=PKI2486) 6.0 4.3-10.9 Blood erythrocytes count (number/volume) (test qogh=76415-5) 4.52 M/ul 4.33- 5.43 Hemoglobin measurement (test fduo=JBC8332) 13.6 g/dL 13.6-17.9 Blood hematocrit (volume fraction) (test tcqu=61289-8) 39.7 % 39.6-49.0 MCV (test eeoq=76224-0) 87.7 fL 80-100 MCH (test jlkt=86218-2) 30.0 pg 27.0-35.0 MCHC (test code=MCHC) 34.2 g/dL 32.0-36.0 Platelets (test code=PLT) 184 152-406 Red Cell Distribution Width (test code=RDW) 15.0 % 12.1-15.2 Blood platelet mean volume (test trdk=23349-0) 8.2 fL 7.6-11.3 Neutrophils % (test code=RENETTA%) 61.7 % 41.7-73.7 Lymphocytes/leuk NFr Bld (test xqxi=99732-1) 26.6 % 15.3-44.8 Monocyte percentage (test tmgu=2831-1) 9.0 % 3.3-12.3 Eosinophil % (test fvnn=170-0) 1.9 % 0-4.4 Basophil % (test svpk=43583-5) 0.8 % 0-1.3 Absolute neutrophil count (test wnat=664-6) 3.7 1.8-8.0 Absolute lymphocyte count (test lbce=40766-0) 1.6 0.7-4.9 Absolute monocyte count (test qyfd=664-4) 0.5 0.1-1.3 Absolute Eosinophils (test code=EOA) 0.1 0-0.5 Absolute Basophils (test code=BASA) 0.0 0-0.5 Primary Language [facility] F1322-87-28 05:57:00* Test Item Value Reference Range Comments Troponin I (test code=TROP) < 0.03 <0.03 Primary Language Palestinian Physician Instructions Edit Troponin Times according to first ED TroponinBasic Metabolic Gqguw6722-85-21 05:55 :00* Test Item Value Reference Range Comments Sodium level (test yxpj=IGE5684) 139 meq/L 135-145 4.0 Chloride measurement (test sgtq=SFN5108) 107 meq/L 101-111 Bicarbonate (test code=CO2) 26 meq/L 21-31 Glucose measurement (test ldgk=TTT4009) 112 mg/dL 65-120 ADA Clinical Practice Recommendation: <100 mg/dl=Normal Fasting Glucose BUN Bld-mCnc (test gest=7565-5) 14 mg/dL 6-20 Creatinine measurement (test nsta=YGY9166) 0.99 mg/dL 0.61-1.24 The creatinine method used has been calibrated to be traceable to Isotope dilution Mass Spectrometry (IDMS). For more information: www.nkdep.nih.gov Estimated glomerular filtration rate (GFR) determination (test srje=15200-6) 81 mL =/>90 FOR CHRONIC KIDNEY DISEASE: GFR STAGE DESCRIPTION =/>90 STAGE 1 NORMAL--OR-- MINIMAL KIDNEY DAMAGE WITH NORMAL GFR 60-89 STAGE 2 MILD DECREASE IN GFR 30-59 STAGE 3 MODERATE DECREASE IN GFR 15-29 STAGE 4 SEVERE DECREASE IN GFR <15 STAGE 5 KIDNEY FAILURE The Glomerular Filtration Rate (GFR) has been calculated using the IDMS-Traceable MDRD Study Equation. Calcium Level (test code=CA) 9.1 mg/dL 8.5-10.5 Primary Language Cynthia D0430-06-48 22:43:00* Test Item Value Reference Range Comments Troponin I (test code=TROP) < 0.03 <0.03 Primary Language Palestinian Physician Instructions Edit Troponin Times according to first ED TroponinUrine dipstick testing at point-of- pheb5464-34-26 17:00:00* Test Item Value Reference Range Comments Urine specific gravity measurement (test iqmm=2476-3) 1.020 1.005-1.030 Urine glucose detection (test ghxe=2881-2) Negative NEG Urine Ketones (test code=UKET) NEGATIVE NEG Urine blood detection (test lifx=65845-4) Negative NEG Urine pH (test supu=6346-1) 6.0 5.0-7.0 Urinalysis with microscopy (test lqdr=32448-6) NEGATIVE NEG Urine nitrate measurement (test elgc=45044-4) NEGATIVE NEG Urine Leukocyte Esterase (test code=UESTR) TRACE NEG Comment Bed:20 mc NEG NEG NEG TRACE NEG 6.0 NEG Y 1.020Brain natriuretic peptide (BNP) mzwdbexzqgp8682-00-70 15:04:00* Test Item Value Reference Range Comments Brain natriuretic peptide (BNP) measurement (test agan=44120-1) 46 pg/mL <= 100 Basic Metabolic Hrwfg6187-96-08 14:54:00* Test Item Value Reference Range Comments Sodium level (test ealw=FWG8581) 140 meq/L 135-145 3.6 Chloride measurement (test veiy=VAO4035) 105 meq/L 101-111 Bicarbonate (test code=CO2) 24 meq/L 21-31 Glucose measurement (test qdwn=GOU1336) 115 mg/dL 65-120 ADA Clinical Practice Recommendation: <100 mg/dl=Normal Fasting Glucose BUN Bld-mCnc (test vjiy=8535-5) 12 mg/dL 6-20 Creatinine measurement (test ojvg=LYJ4829) 1.02 mg/dL 0.61-1.24 The creatinine method used has been calibrated to be traceable to Isotope dilution Mass Spectrometry (IDMS). For more information: www.nkdep.nih.gov Estimated glomerular filtration rate (GFR) determination (test xfiq=01571-4) 79 mL =/>90 FOR CHRONIC KIDNEY DISEASE: GFR STAGE DESCRIPTION =/>90 STAGE 1 NORMAL--OR-- MINIMAL KIDNEY DAMAGE WITH NORMAL GFR 60-89 STAGE 2 MILD DECREASE IN GFR 30-59 STAGE 3 MODERATE DECREASE IN GFR 15-29 STAGE 4 SEVERE DECREASE IN GFR <15 STAGE 5 KIDNEY FAILURE The Glomerular Filtration Rate (GFR) has been calculated using the IDMS-Traceable MDRD Study Equation. Calcium Level (test code=CA) 9.3 mg/dL 8.5-10.5 Liver (Hepatic) Aaboxswd1345-08-96 14:54:00* Test Item Value Reference Range Comments Aspartate aminotransferase (AST) measurement (test seiy=IYT5941) 22 [iU]/L 10 -42 ALT/SGPT (test code=SGPT) 23 [iU]/L 10-60 Alkaline Phosphatase (test code=ALK) 76 [iU]/L 42-121 Bilirubin total (test lgxq=UNI3779) 0.8 mg/dL 0.3-1.2 Bilirubin direct (test ujcc=0464-4) 0.1 mg/dL 0-0.2 Serum total protein measurement (test ibsr=8833-0) 6.5 g/dL 6.0-8.3 Albumin measurement (test awdd=IBH0633) 4.1 g/dL 3.2-5.5 Globulin (test code=GLOB) 2.4 g/dL 2.3-3.5 Albumin/Globulin Ratio (test code=A/G) 1.7 1.1-1.8 Creatine Ihlogtbzpflmy4058-41-46 14:54:00* Test Item Value Reference Range Comments Creatine Phosphokinase (test code=CPK) 114 [iU]/L 22-269 CKMB Creatine Kinase HQ1428-66-61 14:54:00* Test Item Value Reference Range Comments CKMB Creatine Kinase MB (test code=CKMB) 1.6 ng/mL 0.3-4.0 Magnesium nkigiogvjmk3218-59-23 14:54:00* Test Item Value Reference Range Comments Magnesium measurement (test usrm=91489-4) 1.9 mg/dL 1.8-2.5 Troponin (Emerg Dept Use Only)2016-06-06 14:51:00* Test Item Value Reference Range Comments Troponin (Emerg Dept Use Only) (test code=TROPED) < 0.03 <0.03 Comment Bed:20 Test Ordered to Rule Out VTE/DVT? NProthrombin time (PT) with international normalized ratio (INR)2016-06-06 14:40:00* Test Item Value Reference Range Comments PT Prothrombin Time (test code=PROTIME) 11.8 s 9.5-12.5 INR in Blood by Coagulation assay (test kwkz=65150-6) 1.04 Monitor pts using INR value (not prothrombin time) INR Coumadin Therapy: Low Range ( prophylaxis) 2.0-3.0 High Range (high risk of clot formation) 2.5-3.5 Test Ordered to Rule Out VTE/DVT? N Test Ordered to Rule Out VTE/DVT? NPTT, Activated Partial Bviatn5113-78-53 14:40:00* Test Item Value Reference Range Comments PTT, Activated Partial Thromb (test code=PTT) 33.2 s 24.3-36.9 Test Ordered to Rule Out VTE/DVT? N Test Ordered to Rule Out VTE/DVT? NComplete blood count (CBC) with automated white blood cell (WBC) picbehkzpdnh9811-63-72 14:37:00* Test Item Value Reference Range Comments White blood cell count (test ajxq=BHV2613) 6.2 4.3-10.9 Blood erythrocytes count (number/volume) (test adgs=72288-6) 4.87 M/ul 4.33- 5.43 Hemoglobin measurement (test gwpz=JYO9276) 14.4 g/dL 13.6-17.9 Blood hematocrit (volume fraction) (test ycxf=98835-7) 42.5 % 39.6-49.0 MCV (test wzbv=07434-7) 87.3 fL 80-100 MCH (test yjtg=80074-9) 29.5 pg 27.0-35.0 MCHC (test code=MCHC) 33.8 g/dL 32.0-36.0 Platelets (test code=PLT) 213 152-406 Red Cell Distribution Width (test code=RDW) 14.6 % 12.1-15.2 Blood platelet mean volume (test znas=35416-0) 8.2 fL 7.6-11.3 Neutrophils % (test code=RENETTA%) 56.1 % 41.7-73.7 Lymphocytes/leuk NFr Bld (test obex=54119-6) 33.4 % 15.3-44.8 Monocyte percentage (test ofcv=3868-0) 8.3 % 3.3-12.3 Eosinophil % (test oinw=928-6) 1.5 % 0-4.4 Basophil % (test fqum=42798-0) 0.7 % 0-1.3 Absolute neutrophil count (test dzol=149-2) 3.5 1.8-8.0 Absolute lymphocyte count (test npsr=36060-8) 2.1 0.7-4.9 Absolute monocyte count (test jpzl=700-6) 0.5 0.1-1.3 Absolute Eosinophils (test code=EOA) 0.1 0-0.5 Absolute Basophils (test code=BASA) 0.0 0-0.5 CHEST SINGLE (PORTABLE) [place] [address] Patient Name: ARANZA WHITNEY MR #: [id number] : 1970 Age/Sex: 46/M Req #: [id number] Adm Physician: Ordered by: SARA IVERSON MD Report #: [id number] Location: ER Room/Bed: Procedure: DX/CHEST SINGLE (PORTABLE) Exam Date: 04/20/17 Exam Time: 6 REPORT STATUS: Signed EXAM: CHEST SINGLE (PORTABLE), AP 1 view INDICATION: Left-sided chest, jaw and arm pain COMPARISON: None FINDINGS: LINES/TUBES: None LUNGS: Perihilar and bibasilar atelectasis and bronchial thickening. PLEURA: No effusions or pneumothorax. HEART AND MEDIASTINUM: The heart is within normal size limits. Upper median sternotomy wires. Nonspecific densities projected over the lower thorax, may be external to the patient. BONES AND SOFT TISSUES: No acute findings. IMPRESSION: Perihilar and bibasilar atelectasis and bronchial thickening. This may be due to low inspiration or infection in the proper clinical setting. Signed by: Dr. Vitaly Diehl M.D. on 04/20/2017 12:22 AM Dictated By: VITALY DIEHL MD Transcribed By: ADALBERTO on 04/20/1721 COPY TO: SARA IVERSON MD CT CHEST W [place] [address] Patient Name: ARANZA WHITNEY MR #: [id number] : 1970 Age/Sex: 46/M Req #: [id number] Adm Physician: Ordered by: SARA IVERSON MD Report #: [id number] Location: ER Room/Bed: Procedure: [id number] CT/CT CHEST W Exam Date: 04/20/17 Exam Time: 2017 REPORT STATUS: Signed EXAM: CT CHEST W INDICATION : Left-sided chest, jaw and arm pain COMPARISON: None TECHNIQUE: Multidetector CT scanning of the chest was performed. Coronal and sagittal multiplanar reformations were obtained. PE protocol performed. IV Contrast: 84 cc Isovue-370 CTDIvol has been reviewed. It is below the limits set by the Radiation Protocol Committee (RPC). FINDINGS: LUNGS AND AIRWAYS: The trachea and major bronchi are unremarkable. Limited evaluation for small pulmonary nodules secondary to respiratory artifact. Increased attenuation of the lungs secondary to low inspiration. Right middle lobe and lingular atelectasis and bronchial thickening. Scattered atelectatic changes in the lung bases. PLEURA: No effusions or pneumothorax. HEART, MEDIASTINUM, VESSELS: Mild cardiac enlargement, which may be secondary to low inspiration.. No abnormal pericardial effusion. No thoracic aortic aneurysm. 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 No mediastinal mass. Mildly prominent right hilar lymphoid tissue up to 1.8 cm. No evidence of a pulmonary embolism. UPPER ABDOMEN: No acute finding. MUSCULOSKELETAL: Incidental bilateral gynecomastia. Surgical changes of median sternotomy. IMPRESSION: Low inspiration with predominantly perihilar and right middle lobe atelectasis and bronchial thickening, which could be seen secondary to chronic changes or acute bronchitis. No evidence of a pulmonary embolism. Signed by: Dr. Vitaly Diehl M.D. on 04/20/2017 12:30 AM Dictated By: VITALY DIEHL MD Transcribed By : ADALBERTO on 04/20/1729 COPY TO: SAAR IVERSON MD
[2017-04-20] MEDS ORDERED: IOPAMIDOL 370 MG/ML 200 ML INFUS..BTL INJ ONE (03:50)
[2017-04-20] MEDS ORDERED: SODIUM CHLORIDE 0.9% 50ML 50 ML ONE (03:50)
[2017-04-20] MEDS: INSULIN REGULAR, HUMAN 100 UNIT/1 ML 3ML VIAL SQ SCH ×2 (07:30→11:30)
[2017-04-20] MEDS: HYDROCODONE/APAP 10MG-325MG TAB PO PRN ×2 (08:45→20:51)
[2017-04-20] MEDS: FAMOTIDINE 20 MG/2 ML VIAL IV SCH ×2 (08:49→20:51)
[2017-04-20] MEDS: ASPIRIN 81 MG ENTERIC COATED PO SCH (08:49)
[2017-04-20] MEDS: CLOPIDOGREL BISULFATE 75 MG TAB PO SCH (08:49)
[2017-04-20 10:50] LABS: CREATINE KINASE 153 IU/L (30-200)
[2017-04-20] MEDS: NITROGLYCERIN 0.4 MG SUBL SL PRN ×2 (11:50→11:55)
[2017-04-20 12:24] LABS: KETONES,URINE TRACE (NEGATIVE); LEUKOCYTE ESTERASE ,URINE 1+ (NEGATIVE); NITRITE,URINE NEGATIVE (NEGATIVE); PROTEIN,URINE DIPSTICK NEGATIVE (NEGATIVE); URINE UROBILINOGEN 0.2 mg/dL (0.2 - 1)
[2017-04-20 12:33] LABS: BILIRUBIN,URINE 1+ (NEGATIVE)
[2017-04-20 12:34] LABS: CLARITY,URINE CLEAR (CLEAR); COLOR,URINE YELLOW (YELLOW)
[2017-04-20] MEDS ORDERED: HYDRALAZINE HCL 20 MG/ML VIAL IV PRN (12:45)
[2017-04-20 12:52] LABS: CHOL/HDL RATIO 6.7 (3.9-4.7); MAGNESIUM 1.9 MG/DL (1.3-2.1); PHOSPHORUS 3.8 MG/DL (2.3-4.7)
[2017-04-20] MEDS ORDERED: METOPROLOL TARTRATE INJ 1 MG/ML VIAL IV PRN (13:00)
[2017-04-20 13:01] LABS: RBC,URINE 0-5 /HPF (0-5)
[2017-04-20 13:02] LABS: CALCIUM OXALATE CRYSTALS,UR RARE (FEW)
[2017-04-20] MEDS: METHADONE HCL 10 MG TAB PO SCH ×2 (14:01→20:51)
[2017-04-20 18:10] LABS: CREATINE KINASE MB 1.3 ng/mL (0-5.0)
[2017-04-20] MEDS ORDERED: METHOCARBAMOL 750 MG TAB PO PRN (19:00)
[2017-04-20] MEDS ORDERED: DOXEPIN HCL 25 MG CAP PO SCH (21:00)
[2017-04-20] MEDS: ALBUTEROL SULF 0.083% NEB SOLN 3 ML NEB NEB PRN (21:33)
[2017-04-20] MEDS ORDERED: FUROSEMIDE40 MG PO (21:53)
[2017-04-20] MEDS ORDERED: DOXEPIN HCL25 MG PO (21:55)
[2017-04-20] MEDS ORDERED: ATORVASTATIN CA20 MG PO (21:55)
[2017-04-20] MEDS ORDERED: SOMA350 MG PO (22:17)
[2017-04-20] MEDS ORDERED: QUETIAPINE FUM100 MG PO (22:17)
[2017-04-20] MEDS ORDERED: KEPPRA500 MG PO (22:17)
[2017-04-20] MEDS ORDERED: PLAVIX75 MG PO (22:17)
[2017-04-20] MEDS ORDERED: PREDNISONE10 MG PO (22:17)
[2017-04-20] MEDS ORDERED: HYDROXYZINE HCL25 MG PO (22:17)
[2017-04-20] MEDS ORDERED: LYRICA50 MG PO (22:17)
[2017-04-20] MEDS ORDERED: XARELTO20 MG (22:17)
[2017-04-20] MEDS ORDERED: METOPROLOL TART25 MG PO (22:17)
[2017-04-20] MEDS ORDERED: TRAZODONE HCL50 MG PO (22:17)
[2017-04-20] MEDS ORDERED: PANTOPRAZOLE SO40 MG PO (22:17)
[2017-04-20] MEDS ORDERED: PROMETHAZINE HC25 M1 PO (22:17)
[2017-04-20] MEDS ORDERED: CYMBALTA30 MG PO (22:17)
[2017-04-20] MEDS ORDERED: LAMICTAL25 MG PO (22:17)
[2017-04-20] MEDS ORDERED: MIRTAZAPINE15 MG PO (22:17)
[2017-04-20] MEDS ORDERED: LORAZEPAM0.5 MG PO (22:17)
[2017-04-20] MEDS ORDERED: QUETIAPINE FUMA25 MG PO (22:17)
[2017-04-20] MEDS ORDERED: LORAZEPAM 0.5 MG TAB PO PRN (22:30)
[2017-04-20] MEDS ORDERED: PROMETHAZINE HCL 25 MG TAB PO PRN (22:30)
[2017-04-20] MEDS ORDERED: CARISOPRODOL 350 MG TAB PO PRN (22:30)
[2017-04-20] MEDS ORDERED: HYDROXYZINE HCL 25 MG TAB PO PRN (22:30)
[2017-04-20] MEDS ORDERED: TRAZODONE HCL 50 MG TAB PO SCH (22:48)
[2017-04-20] MEDS: LAMOTRIGINE 25 MG TAB PO SCH (23:04)
[2017-04-20] MEDS: PREGABALIN 50 MG CAP PO SCH (23:04)
[2017-04-20] MEDS ORDERED: QUETIAPINE FUMARATE 100 MG TAB PO SCH (23:11)
[2017-04-21] VITALS: BP 130/60
[2017-04-21 04:00] VITALS: BP 125/73
[2017-04-21] MEDS: NITROGLYCERIN 0.4 MG SUBL SL PRN (05:44)
[2017-04-21] MEDS: ASPIRIN 81 MG ENTERIC COATED PO SCH (05:49)
[2017-04-21 06:19] VITALS: BP 137/65
[2017-04-21] MEDS: ALBUTEROL SULF 0.083% NEB SOLN 3 ML NEB NEB PRN ×2 (06:20→10:14)
[2017-04-21 07:04] LABS: CHOL/HDL RATIO 7.1 (3.9-4.7)
[2017-04-21 07:30] VITALS: BP 117/60
[2017-04-21] MEDS: FAMOTIDINE 20 MG/2 ML VIAL IV SCH (08:05)
[2017-04-21] MEDS: LAMOTRIGINE 25 MG TAB PO SCH (08:05)
[2017-04-21] MEDS: CLOPIDOGREL BISULFATE 75 MG TAB PO SCH (08:06)
[2017-04-21] MEDS: METHADONE HCL 10 MG TAB PO SCH (08:06)
[2017-04-21] MEDS: PREGABALIN 50 MG CAP PO SCH (08:06)
[2017-04-21] MEDS ORDERED: DULOXETINE HCL 30 MG DELAYED RELEASE PO SCH (09:00)
[2017-04-21] MEDS ORDERED: QUETIAPINE FUMARATE 25 MG TAB PO SCH (09:00)
[2017-04-21] MEDS ORDERED: PREDNISONE 10 MG TAB PO SCH (09:00)
[2017-04-21] MEDS ORDERED: LIDOCAINE 5% PATCH TP SCH (09:00)
[2017-04-21] MEDS ORDERED: LEVETIRACETAM 500 MG TAB PO SCH (09:00)
[2017-04-21] MEDS ORDERED: FUROSEMIDE 40 MG TAB PO SCH (09:00)
[2017-04-21] MEDS ORDERED: CLOPIDOGREL BISULFATE 75 MG TAB PO SCH (09:00)
[2017-04-21] MEDS ORDERED: PANTOPRAZOLE SOD 40 MG TABEC PO SCH (09:00)
[2017-04-21] MEDS ORDERED: RIVAROXABAN 20 MG TABLET PO SCH (09:00)
[2017-04-21] MEDS ORDERED: METOPROLOL TARTRATE 25 MG TAB PO SCH (09:00)
[2017-04-21 11:52] VITALS: BP 109/57
[2017-04-21] MEDS ORDERED: MIRTAZAPINE 15 MG TAB PO SCH (21:00)
[2017-04-21] MEDS ORDERED: ATORVASTATIN 20 MG TAB PO SCH (21:00)
== END 2017-04-21 16:13 | disposition home or self-care (01) ==
LOC: ER 22:22 → ERHOLD 04-20 02:04 → IMCU 04-20 03:52
PROVIDERS: ADMIT Internal Medicine; ATTEND Internal Medicine
DX: R07.9 Chest pain, unspecified (principal); I25.10 Atherosclerotic heart disease of native coronary artery without angina pectoris; E11.9 Type 2 diabetes mellitus without complications; E78.5 Hyperlipidemia, unspecified; I11.0 Hypertensive heart disease with heart failure; I50.9 Heart failure, unspecified; R68.84 Jaw pain; I71.01 Dissection of thoracic aorta; G40.909 Epilepsy, unspecified, not intractable, without status epilepticus; Z95.1 Presence of aortocoronary bypass graft; K21.9 Gastro-esophageal reflux disease without esophagitis; I69.351 Hemiplegia and hemiparesis following cerebral infarction affecting right dominant side; Z88.5 Allergy status to narcotic agent; Z88.1 Allergy status to other antibiotic agents; Z88.8 Allergy status to other drugs, medicaments and biological substances; Z91.018 Allergy to other foods; I34.0 Nonrheumatic mitral (valve) insufficiency; Z79.891 Long term (current) use of opiate analgesic; Z68.43 Body mass index [BMI] 50.0-59.9, adult; Z87.891 Personal history of nicotine dependence; E66.9 Obesity, unspecified
CPT/HCPCS: 36415 ×2; 71045; 71260; 80053; 80061 ×2; 81001; 82550 ×2; 82553 ×2; 83690; 83735 ×2; 83880; 84100; 84484 ×2; 84550; 85025; 85379; 85610; 85730; 93005 ×3; 93306; 94640 ×3; 99284; G0378 ×2; J1885; J7040; Q9967

== ENCOUNTER 2017-05-26 21:08 | Observation (INO) | payer OTHER ==
[~2017-05-26] VITALS: Ht 188 cm; Wt 201.4 kg
[~2017-05-26 21:08] MED LIST: ATORVASTATIN CA20 MG PO; CYMBALTA30 MG PO; DOXEPIN HCL25 MG PO; FUROSEMIDE40 MG PO; HYDROXYZINE HCL25 MG PO; KEPPRA500 MG PO; LAMICTAL25 MG PO; LORAZEPAM0.5 MG PO; LYRICA50 MG PO; METOPROLOL TART25 MG PO; MIRTAZAPINE15 MG PO; PANTOPRAZOLE SO40 MG PO; PLAVIX75 MG PO; PREDNISONE10 MG PO; PROMETHAZINE HC25 M1 PO; QUETIAPINE FUM100 MG PO; QUETIAPINE FUMA25 MG PO; SOMA350 MG PO; TRAZODONE HCL50 MG PO; XARELTO20 MG
--- OUTSIDE RECORDS SUMMARY | 2017-05-26 21:10 | XMS REPORT | Clinical Summary ---
Author Author [facility] Address Unknown Phone Unavailable Care Team Providers Care Landing Worker Name Role Phone Asked, Pcp PCP Unavailable [...] 25 mg tablet (two) times a day. Active Problems Problem Noted Date Bilateral swelling of feet 01/22/2016 Precordial pain 01/21/2016 Chest pain 01/21/2016 Family History Medical History Relation Name Comments [...] Not on file Last Filed Vital Signs Not on file Plan of Treatment Health Maintenance Due Date Last Done Comments INFLUENZA VACCINE 09/18/2017 Implants Implanted Type Area Metalworking Specialist Device Expiration Model / Identifier Date Serial / Lot . Results Not on fileafter 05/25/2016 Insurance Payer Benefit Subscriber ID Type Phone Address Plan / Group [facility] MEDICAID [facility] xxxxxxxxx HMO [place] [address]
--- OUTSIDE RECORDS SUMMARY | 2017-05-26 21:10 | XMS REPORT | Clinical Summary ---
Author Author [facility] Address Unknown Phone Unavailable Care Team Providers Care Contractor Buyer Name Role Phone PCP Unavailable Allergies Active Allergy Reactions Severity Noted Date Comments Baclofen 12/25/2016 Prochlorperazine 01/05/2017 Edisylate Cyclobenzaprine 12/25/2016 [place] Analogues 01/05/2017 Caused nausea and Syncope ( [...] Office Visit Family Altagracia Mcnally, Bipolar affective PEDIATRIC SPEECH LANGUAGE PATHOLOGIST disorder, current episode mixed, current episode severity unspecified (HCC) (Primary Dx);Type 2 diabetes mellitus with other neurologic complication, without long-term current use of insulin (HCC);History of CVA (cerebrovascular accident);Coronary artery disease involving [place] heart without angina pectoris, unspecified vessel or [...] Family Medicine Altagracia Allen, Chronic pain syndrome PEDIATRIC SPEECH LANGUAGE PATHOLOGIST (Primary Dx);Essential hypertension;Chronic obstructive pulmonary disease, unspecified COPD type (HCC);Gastroesophageal reflux disease without esophagitis after 05/25/2016 Family History Medical History Relation Name Comments [...] Taken Blood Pressure 146/88 01/24/2017 4:05 PM FORKLIFT WHEEL LOADER Pulse 95 01/24/2017 4:05 PM FORKLIFT WHEEL LOADER Temperature 36.9 C (98.4 F) 01/24/2017 4:05 PM FORKLIFT WHEEL LOADER Respiratory Rate 19 01/24/2017 4:05 PM FORKLIFT WHEEL LOADER Oxygen Saturation 98% 01/24/2017 4:05 PM FORKLIFT WHEEL LOADER Inhaled Oxygen - - Concentration Weight 177.8 kg (392 lb) 01/05/2017 6:03 AM FORKLIFT WHEEL LOADER Height - - Body Mass Index - - Plan of Treatment Health Maintenance Due Date Last Done Comments INFLUENZA VACCINE 11/18/2017 Results * Hemoglobin A1c (03/20/2017) Only the [...] Specimen Performing Laboratory Blood OTHER (EXTERNAL) after 05/25/2016
--- OUTSIDE RECORDS SUMMARY | 2017-05-26 21:11 | XMS REPORT | Continuity of Care Document ---
Author Author [facility] Organization [facility] Address [address] [place] [address] Phone Unavailable Care Team Providers Care Pest Control Worker Helper Name Role Phone NO, PCP PCP Unavailable Advance Directives Directive Response Recorded Date/Time Does the patient have an advance directive? No 04/20/17 4:59am If yes, is advance directive on file with [facility]? No 04/20/17 4:59am If not on file with [facility] will patient provide a copy? No 04/20/17 4:59am Do you have a Directive to Physician? No 04/20/17 12:10am Do you have a Medical Power of Raspberry Checker? No 04/20/17 12:10am Do you have an out of hospital Do Not Resuscitate Order? No 04/20/17 12:10am Do you have any special needs we should be aware of? No 04/20/17 12:10am Do you have a support person here with you today? No 04/20/17 12:10am Did patient receive Notice of Privacy Practices? Yes 04/20/17 12:10am Did patient receive patient rights and responsibilities? Yes 04/20/17 12:10am Problems Medical Problem Onset Date Status Chest pain Unknown Medications Current Home Medications Medication Dose Units Route Directions Days Qty Instructions Start Date Atorvastatin Calcium 20 Mg Tablet 40 Mg Oral Bedtime 30 Tab Carisoprodol (Soma) 350 Mg Tablet 350 Mg Oral Every 8 Hours as needed for Cramps Clopidogrel Bisulfate (Plavix) 75 Mg Tablet 75 Mg Oral Daily 30 Tab Doxepin Hcl 25 Mg Capsule 100 Mg Oral Qhs 30 Cap Duloxetine Hcl (Cymbalta) 30 Mg Capsule.dr 60 Mg Oral Daily 30 Cap Furosemide 40 Mg Tablet 40 Mg Oral Twice A Day 30 Tab Hydroxyzine Hcl 25 Mg Tablet 50 Mg Oral Every 8 Hours as needed for Anxiety 30 Tab Lamotrigine (Lamictal) 25 Mg Tab Mg Oral Twice A Day Levetiracetam (Keppra) 500 Mg Tablet 500 Mg Oral Twice A Day Lorazepam 0.5 Mg Tablet 0.5 Mg Oral Every 8 Hours as needed for Anxiety Metoprolol Tartrate 25 Mg Tablet 25 Mg Oral Twice A Day Mirtazapine 15 Mg Tab 7.5 Mg Oral Qhs Pantoprazole Sodium (Protonix) 40 Mg Tablet.dr 20 Mg Oral Daily Prednisone 10 Mg Tab 10 Mg Oral Twice A Day Pregabalin (Lyrica) 50 Mg Cap 100 Mg Oral Twice A Day 30 Tab Promethazine Hcl 25 Mg Tablet 25 Mg Oral Every 6 Hours as needed for Nasal Congestion Quetiapine Fumarate 25 Mg Tablet 25 Mg Oral Every Morning Quetiapine Fumarate 100 Mg Tablet 425 Mg Oral Qhs 30 Tab Rivaroxaban (Xarelto) 20 Mg Tablet Daily Trazodone Hcl 50 Mg Tablet 150 Mg Oral Qhs 30 Tab Social History Social History Problem Response Recorded Date/Time Onset Date Status Hx Psychiatric Problems Yes 04/20/2017 4:59am Not Applicable Not Applicable Hx Eating Disorder Yes 04/20/2017 4:59am Not Applicable Not Applicable Hx Substance Use Disorder No 04/20/2017 4:59am Not Applicable Not Applicable Hx Depression No 04/20/2017 4:59am Not Applicable Not Applicable Smoking Status Start Date Stop Date Former smoker Hospital Discharge Instructions No hospital discharge instruction information available. Plan of Care Discharge Date 04/21/17 4:13pm Disposition HOME, SELF-CARE Instructions/Education Provided Chest Pain - Noncardiac Chest Pain - Chest Wall Prescriptions See Medication Section Functional Status Query Response Date Recorded Assistive Devices None April 20, 2017 5:12am Ambulation Ability Maximum Assistance April 20, 2017 5:12am Toileting Ability Standby Assistance April 21, 2017 1:00pm Allergies, Adverse Reactions, Alerts Allergen Type Severity Reaction Status Last Updated Morphine Allergy Unknown Active 04/20/17 Warfarin Allergy Unknown Active 04/20/17 Ampicillin Allergy Unknown Active 04/20/17 Metoclopramide Allergy Unknown Active 04/20/17 Ondansetron Allergy Unknown Active 04/20/17 Green Vegetables Allergy Unknown Active 04/20/17 Margerine Allergy Unknown Active 04/20/17 Paper Tape Allergy Unknown Active 04/20/17 Immunizations No immunization information available. Vital Signs Acute Vital Signs Vital Response Date/Time Temperature (Fahrenheit) 97.8 degrees F (97.6 - 99.5) 04/21/2017 11:52am Pulse Pulse Rate (adult) 82 bpm (60 - 90) 04/21/2017 11:52am Respiratory Rate 20 bpm (12 - 24) 04/21/2017 11:52am Blood Pressure 109/57 mm Hg 04/21/2017 11:52am Height 6 ft 2 in 04/19/2017 10:36pm Weight 444.38 lb 04/21/2017 12:56am Body Mass Index 57.1 kg/m^2 04/21/2017 12:56am Results Laboratory Results Test Name Result Units Flags Reference Collection Date/Time Result Date/ Time Comments White Blood Count 5.52 x10e3/uL 4.8-10.8 04/19/2017 10:58pm 04/19/2017 11:09pm Red Blood Count 4.38 x10e6/uL 4.3-5.7 04/19/2017 10:58pm 04/19/2017 11: 09pm Hemoglobin 13.8 g/dL L 14.0-18.0 04/19/2017 10:58pm 04/19/2017 11:09pm Hematocrit 39.1 % 38.2-49.6 04/19/2017 10:58pm 04/19/2017 11:09pm Mean Corpuscular Volume 89.3 fL 81-99 04/19/2017 10:58pm 04/19/2017 11: 09pm Mean Corpuscular Hemoglobin 31.5 pg 28-32 04/19/2017 10:58pm 2017 11:09pm Mean Corpuscular Hemoglobin Concent 35.3 g/dL H 31-35 04/19/2017 10:58pm 04/19/2017 11:09pm Red Cell Distribution Width 14.4 % 11.7-14.4 04/19/2017 10:58pm 2017 11:09pm Platelet Count 202 x10e3/uL 140-360 04/19/2017 10:58pm 04/19/2017 11: 09pm Neutrophils (%) (Auto) 57.0 % 38.7-80.0 04/19/2017 10:58pm 04/19/2017 11:09pm Lymphocytes (%) (Auto) 33.0 % 18.0-39.1 04/19/2017 10:58pm 04/19/2017 11:09pm Monocytes (%) (Auto) 6.9 % 4.4-11.3 04/19/2017 10:58pm 04/19/2017 11: 09pm Eosinophils (%) (Auto) 2.2 % 0.0-6.0 04/19/2017 10:58pm 04/19/2017 11: 09pm Basophils (%) (Auto) 0.4 % 0.0-1.0 04/19/2017 10:58pm 04/19/2017 11: 09pm IM GRANULOCYTES % 0.5 % 0.0-1.0 04/19/2017 10:58pm 04/19/2017 11:09pm Neutrophils # (Auto) 3.2 2.1-6.9 04/19/2017 10:58pm 04/19/2017 11: 09pm Lymphocytes # (Auto) 1.8 1.0-3.2 04/19/2017 10:58pm 04/19/2017 11: 09pm Monocytes # (Auto) 0.4 0.2-0.8 04/19/2017 10:58pm 04/19/2017 11:09pm Eosinophils # (Auto) 0.1 0.0-0.4 04/19/2017 10:58pm 04/19/2017 11: 09pm Basophils # (Auto) 0.0 0.0-0.1 04/19/2017 10:58pm 04/19/2017 11:09pm Absolute Immature Granulocyte (auto 0.03 x10e3/uL 0-0.1 04/19/2017 10: 58pm 04/19/2017 11:09pm Prothrombin Time 14.2 seconds 11.9-14.5 04/19/2017 10:58pm 04/19/2017 11:22pm Prothromb Time International Ratio 1.19 04/19/2017 10:58pm 2017 11:22pm Oral Anticoagulant Therapy INR Values: 1. Low Intensity Therapy 1.5 - 2.0 2. Moderate Intensity Therapy 2.0 - 3.0 3. High Intensity Therapy(1) 2.5 - 3.5 4. High Intensity Therapy(2) 3.0 - 4.0 5. Panic Value INR > 5.0 Activated Partial Thromboplast Time 33.6 seconds 23.8-35.5 04/19/2017 10 :58pm 04/19/2017 11:22pm D-Dimer Quantitative (PE/DVT) 0.56 ug/mLFEU H 0.00-0.45 04/19/2017 10: 58pm 04/19/2017 11:22pm Urine Color YELLOW YELLOW 04/20/2017 11:25am 04/20/2017 12:34pm Urine Clarity CLEAR CLEAR 04/20/2017 11:25am 04/20/2017 12:34pm Urine Specific [place] 1.020 1.010-1.025 04/20/2017 11:25am 2017 12:34pm Urine pH 5 5 - 7 04/20/2017 11:25am 04/20/2017 12:34pm Urine Leukocyte Esterase 1+ H NEGATIVE 04/20/2017 11:25am 04/20/2017 12:34pm Urine Nitrite NEGATIVE NEGATIVE 04/20/2017 11:25am 04/20/2017 12: 34pm Urine Protein NEGATIVE NEGATIVE 04/20/2017 11:25am 04/20/2017 12: 34pm Urine Glucose (UA) NEGATIVE NEGATIVE 04/20/2017 11:25am 04/20/2017 12 :34pm Urine Ketones TRACE H NEGATIVE 04/20/2017 11:25am 04/20/2017 12:34pm Urine Urobilinogen 0.2 mg/dL 0.2 - 1 04/20/2017 11:25am 04/20/2017 12: 34pm Urine Bilirubin 1+ H NEGATIVE 04/20/2017 11:25am 04/20/2017 12:34pm Confirmatory test currently unavailable. False positive results may occur. Urine Blood NEGATIVE NEGATIVE 04/20/2017 11:25am 04/20/2017 12:34pm Urine WBC 6-10 /HPF H 0-5 04/20/2017 11:25am 04/20/2017 1:02pm Urine RBC 0-5 /HPF 0-5 04/20/2017 11:25am 04/20/2017 1:02pm Urine Bacteria NONE /HPF NONE 04/20/2017 11:25am 04/20/2017 1:02pm Urine Epithelial Cells NONE /LPF NONE 04/20/2017 11:25am 04/20/2017 1: 02pm Urine Calcium Oxalate Crystals RARE FEW 04/20/2017 11:25am 2017 1:02pm Sodium Level 140 mmol/L 136-145 04/19/2017 10:58pm 04/19/2017 11:28pm Potassium Level 3.2 mmol/L L 3.5-5.1 04/19/2017 10:58pm 04/19/2017 11: 28pm Chloride Level 100 mmol/L 98-107 04/19/2017 10:58pm 04/19/2017 11:28pm Carbon Dioxide Level 26 mmol/L 22-29 04/19/2017 10:58pm 04/19/2017 11: 28pm Anion Gap 17.2 mmol/L H 8-16 04/19/2017 10:58pm 04/19/2017 11:28pm Blood Urea Nitrogen 11 mg/dL 7-26 04/19/2017 10:58pm 04/19/2017 11: 28pm Creatinine 1.22 mg/dL 0.72-1.25 04/19/2017 10:58pm 04/19/2017 11:28pm BUN/Creatinine Ratio 9 6-25 04/19/2017 10:58pm 04/19/2017 11:28pm Estimat Glomerular Filtration Rate > 60 ML/MIN 60- 04/19/2017 10:58pm 04/19/2017 11:28pm Ranges were taken from the National Kidney Disease Education Program and the National Kidney Foundation literature. Reference ranges: 60 or greater: Normal 16-59 (for 3 consecutive months): Chronic kidney disease 15 or less: Kidney failure Glucose Level 117 mg/dL 74-118 04/19/2017 10:58pm 04/19/2017 11:28pm Calcium Level 9.3 mg/dL 8.4-10.2 04/19/2017 10:58pm 04/19/2017 11:28pm Uric Acid 9.7 mg/dL H 4.8-8.0 04/20/2017 10:16am 04/20/2017 12:53pm Phosphorus Level 3.8 MG/DL 2.3-4.7 04/20/2017 10:16am 04/20/2017 12: 53pm Magnesium Level 1.9 MG/DL 1.3-2.1 04/20/2017 10:16am 04/20/2017 12: 53pm Total Bilirubin 0.5 mg/dL 0.2-1.2 04/19/2017 10:58pm 04/19/2017 11: 28pm Aspartate Amino Transf (AST/SGOT) 29 IU/L 5-34 04/19/2017 10:58pm 04/19 11:28pm Alanine Aminotransferase (ALT/SGPT) 37 IU/L 0-55 04/19/2017 10:58pm 03/2017 11:28pm Total Protein 7.3 g/dL 6.5-8.1 04/19/2017 10:58pm 04/19/2017 11:28pm Albumin 3.8 g/dL 3.5-5.0 04/19/2017 10:58pm 04/19/2017 11:28pm Globulin 3.5 g/dL 2.3-3.5 04/19/2017 10:58pm 04/19/2017 11:28pm Albumin/Globulin Ratio 1.1 0.8-2.0 04/19/2017 10:58pm 04/19/2017 11: 28pm Alkaline Phosphatase 92 IU/L 40-150 04/19/2017 10:58pm 04/19/2017 11: 28pm Triglycerides Level 248 MG/DL H 0-149 04/21/2017 5:50am 04/21/2017 7: 06am Cholesterol Level 141 MD/DL 0-199 04/21/2017 5:50am 04/21/2017 7:06am Less than 200 mg/dL Low Risk 201 - 239 mg/dL Borderline Risk 240 mg/dl and greater High Risk LDL Cholesterol 71 MG/DL 60-130 04/21/2017 5:50am 04/21/2017 7:06am HDL Cholesterol 20 MG/DL L 40-60 04/21/2017 5:50am 04/21/2017 7:06am Cholesterol/HDL Ratio 7.1 H 3.9-4.7 04/21/2017 5:50am 04/21/2017 7: 06am B-Type Natriuretic Peptide < 12.0 pg/mL 0-100 04/19/2017 10:58pm 2017 11:28pm Creatine Kinase 145 IU/L 30-200 04/20/2017 5:13pm 04/20/2017 6:01pm Creatine Kinase MB 1.30 ng/mL 0-5.0 04/20/2017 5:13pm 04/20/2017 6: 11pm Troponin I 0.006 ng/mL 0-0.300 04/20/2017 5:13pm 04/20/2017 6:11pm Lipase 18 U/L 8-78 04/19/2017 10:58pm 04/19/2017 11:28pm Procedures Procedure Status Date Provider(s) Computed tomography of chest with contrast Active 04/20/17 SARA IVERSON MD Encounters Encounter Location Arrival/Admit Date Discharge/Depart Date Attending Provider Discharged Inpatient (obs) [facility] 04/20/17 2:04am 06/05 4:13pm ALVARO SCHUMACHER MD
--- NOTE | 2017-05-26 22:35 | Diagnostic Imaging Report ---
EXAMINATION: Head CT without contrast. HISTORY:Syncope. COMPARISON:None. TECHNIQUE: Multidetector axial images were obtained from the foramen magnum to the vertex without contrast. The images were reconstructed using brain and bone algorithms. Thin section brain images were reformatted into coronal and sagittal planes. Intravenous contrast: None IMAGE QUALITY: Acceptable. FINDINGS: Skull/scalp: No lytic or blastic. lesions. No surgical changes. Parenchyma: No abnormal density. No acute hemorrhage, mass or acute major vascular territorial infarct. Arteries: No density suggestive of thrombosis. Dural sinuses: No abnormal density suggestive of thrombosis. Ventricles: No hydrocephalus or displacement. Extra-axial spaces: No abnormal density. Brain volume: Moderate cerebellar volume loss Craniocervical junction: No mass, Chiari malformation, or basilar invagination. Sella: No mass. Paranasal/mastoid sinuses: Imaged portions unremarkable. IMPRESSION: No acute intracranial abnormality. Nonspecific moderate cerebellar volume loss. Signed by: Dr. Dian Browning M.D. on 05/26/2017 10:31 PM
[2017-05-26 22:55] LABS: BASOPHILS % 0.6 % (0.0-1.0); EOSINOPHILS # (AUTO) 0.2 (0.0-0.4); EOSINOPHILS % 2.1 % (0.0-6.0); HEMATOCRIT 38.5 % (38.2-49.6); HEMOGLOBIN 13.5 g/dL (14.0-18.0); LYMPHOCYTES # (AUTO) 2.3 (1.0-3.2); LYMPHOCYTES % 31.5 % (18.0-39.1); MEAN CORPUSCULAR HEMOGLOBIN 31.3 pg (28-32); MEAN CORPUSCULAR HGB CONC 35.1 g/dL (31-35); MEAN CORPUSCULAR VOLUME 89.1 fL (81-99); MONOCYTES # (AUTO) 0.6 (0.2-0.8); MONOCYTES % 8.8 % (4.4-11.3); NEUTROPHILS % 56.3 % (38.7-80.0); PLATELET COUNT 187 x10e3/uL (140-360); RED BLOOD COUNT 4.32 x10e6/uL (4.3-5.7); RED CELL DISTRIBUTION WIDTH 13.1 % (11.7-14.4)
--- NOTE | 2017-05-26 22:57 | Diagnostic Imaging Report ---
EXAMINATION: CHEST SINGLE (PORTABLE) INDICATION: Chest pain COMPARISON: CT of the chest on 04/19/2017 and chest x-ray on 04/20/2017 FINDINGS: TUBES and LINES: None. LUNGS: Lungs are not well inflated. There are bibasilar atelectasis. There is mild prominence of the central pulmonary vasculature, consistent with pulmonary venous congestion. PLEURA: No pleural effusion or pneumothorax. HEART AND MEDIASTINUM: Cardiac size is mildly enlarged. There are atherosclerotic calcifications within the aorta. Midline sternotomy wires and cerclage are intact BONES AND SOFT TISSUES: No acute osseous lesion. Soft tissues are unremarkable. UPPER ABDOMEN: No free air under the diaphragm. IMPRESSION: 1. No acute thoracic abnormality. 2. Low lung volumes and severely limited due to patient's body habitus Signed by: Dr. Antonio Soto M.D. on 05/26/2017 10:54 PM
[2017-05-26 23:03] LABS: INR 1.14; PROTHROMBIN TIME 13.7 seconds (11.9-14.5)
[2017-05-26 23:04] LABS: PARTIAL THROMBOPLASTIN TIME 32.7 seconds (23.8-35.5)
[2017-05-26 23:13] LABS: ALANINE AMINOTRANSFERASE 40 IU/L (0-55); ALBUMIN 3.6 g/dL (3.5-5.0); ALBUMIN/GLOBULIN RATIO 1.2 (0.8-2.0); ALKALINE PHOSPHATASE 88 IU/L (40-150); ANION GAP 11.7 mmol/L (8-16); BLOOD UREA NITROGEN 14 mg/dL (7-26); BUN/CREATININE RATIO 11 (6-25); CALCIUM 8.8 mg/dL (8.4-10.2); CARBON DIOXIDE 25 mmol/L (22-29); CHLORIDE 106 mmol/L (98-107); CREATININE, SERUM 1.27 mg/dL (0.72-1.25); EST GLOMERULAR FILTRATION RATE > 60 ML/MIN (60-); GLUCOSE 128 mg/dL (74-118); POTASSIUM 3.7 mmol/L (3.5-5.1); SODIUM 139 mmol/L (136-145)
[2017-05-26 23:24] LABS: CREATINE KINASE 74 IU/L (30-200)
[2017-05-27] VITALS (7 sets, daily range): BP systolic 89–138; BP diastolic 46–82
[2017-05-27] MEDS ORDERED: SODIUM CHLORIDE FLUSH 10 ML SYR INJ PRN
--- OUTSIDE RECORDS SUMMARY | 2017-05-27 00:15 | XMS REPORT | Clinical Summary ---
Author Author [facility] [employer] Organization [facility] [employer] Address Unknown Phone Unavailable Care Team Providers Care Affirmative Action Specialist Name Role Phone Asked, Pcp PCP Unavailable [...] INFLUENZA VACCINE 09/18/2017 Implants Implanted Type Area Spray Gun Operator Device Expiration Model / Identifier Date Serial / Lot . Results Not on fileafter 05/26/2016 Insurance Payer Benefit Subscriber ID Type Phone Address Plan / Group [facility] MEDICAID [facility] xxxxxxxxx HMO COMM [place] [address]
--- OUTSIDE RECORDS SUMMARY | 2017-05-27 00:15 | XMS REPORT | Clinical Summary ---
Author Author [facility] Organization [facility] Address Unknown Phone Unavailable Care Team Providers Care Mechanical Apprentice Name Role Phone PCP Unavailable Allergies Active Allergy Reactions Severity Noted Date Comments Baclofen 12/25/2016 Prochlorperazine 01/05/2017 Edisylate Cyclobenzaprine 12/25/2016 [place] Analogues 01/05/2017 Caused nausea and Syncope ( [...] Office Visit Family Altagracia Mcnally, Bipolar affective BAIL BOND AGENT disorder, current episode mixed, current episode severity unspecified (HCC) (Primary Dx);Type 2 diabetes mellitus with other neurologic complication, without long-term current use of insulin (HCC);History of CVA (cerebrovascular accident);Coronary artery disease involving nez perce heart without angina pectoris, unspecified vessel or [...] Family Medicine Altagracia Allen, Chronic pain syndrome BAIL BOND AGENT (Primary Dx);Essential hypertension;Chronic obstructive pulmonary disease, unspecified COPD type (HCC);Gastroesophageal reflux disease without esophagitis after 05/26/2016 Family History Medical History Relation Name Comments [...] Taken Blood Pressure 146/88 01/24/2017 4:05 PM SCALLOP CUTTER Pulse 95 01/24/2017 4:05 PM SCALLOP CUTTER Temperature 36.9 C (98.4 F) 01/24/2017 4:05 PM SCALLOP CUTTER Respiratory Rate 19 01/24/2017 4:05 PM SCALLOP CUTTER Oxygen Saturation 98% 01/24/2017 4:05 PM SCALLOP CUTTER Inhaled Oxygen - - Concentration Weight 177.8 kg (392 lb) 01/05/2017 6:03 AM SCALLOP CUTTER Height - - Body Mass Index - [...] Specimen Performing Laboratory Blood OTHER (EXTERNAL) after 05/26/2016
[2017-05-27] MEDS ORDERED: NITROGLYCERIN 2% OINT 1 GM PKT TOP ONE (00:30)
[2017-05-27] MEDS ORDERED: CARISOPRODOL 350 MG TAB PO PRN (07:30)
[2017-05-27] MEDS ORDERED: PROMETHAZINE HCL 25 MG TAB PO PRN (07:30)
[2017-05-27] MEDS ORDERED: LORAZEPAM 0.5 MG TAB PO PRN (07:30)
[2017-05-27] MEDS ORDERED: HYDROXYZINE HCL 25 MG TAB PO PRN (07:30)
--- NOTE | 2017-05-27 08:11 | History and Physical ---
PRIMARY CARE PHYSICIAN: Dr. Cruz CHIEF COMPLAINT: Fall from wheelchair. HISTORY OF PRESENT ILLNESS: A 47-year-old man with a history of chronic pain disorder and psychosomatoform disorder, who had been seen multiple times at [facility] for complaints of chronic pain with all testing negative, now presenting here from the nursing facility with complaints of falling out of wheelchair. CT scan of the brain is negative for any acute abnormalities. Chest x-ray is also negative. Cardiac enzymes are negative here. Currently, the patient states that he feels a little better and wants to go home to celebrate his birthday. PAST MEDICAL HISTORY: Questionable bipolar disorder, psychosomatoform disorder, chronic pain syndrome, epilepsy, atypical chest pain, hyperlipidemia, Plavix use, hypertension, gout, insomnia, morbid obesity. PAST SURGICAL HISTORY: Unknown. ALLERGIES: PER ELECTRONIC MEDICAL RECORDS. FAMILY HISTORY/SOCIAL HISTORY: [facility] resident. No alcohol or illicits at this time. MEDICATIONS: Per electronic medical record. REVIEW OF SYSTEMS: Denies any chest pain or shortness of breath. PHYSICAL EXAMINATION VITAL SIGNS: Have been reviewed. GENERAL: A tired-appearing man resting in bed. HEENT: Anicteric. Pupils respond to light. No oral lesions. CARDIOVASCULAR: Normal S1 and S2. LUNGS: Moderate breath sounds. ABDOMEN: Soft, nontender and nondistended. EXTREMITIES: No edema. SKIN: Dry. PSYCHIATRIC: Flat affect. NEUROLOGICAL: Alert and oriented times 3. LABS: Reviewed. MEDICATIONS: Reviewed. ASSESSMENT AND PLAN: A 47-year-old man with: 1. Fall: All testing is negative. Currently, the patient denies any pain. Computerized tomography scan of the brain was negative. Cardiac enzymes negative. 2. Psychosomatoform disorder: Restart home medications. 3. Chronic pain syndrome: Restart home medications. 4. Questionable bipolar disorder: Restart home medications. 5. Epilepsy: Continue home medications. 6. Insomnia and agitation: Restart Seroquel. 7. Hyperlipidemia: Statin. 8. Prophylaxis: Use sequential compression devices. 9. Disposition: Physical therapy. Transition back to nursing facility today. All findings are negative. Furthermore, the patient wants to be discharged today. Job#: [id number] [place]
--- NOTE | 2017-05-27 08:14 | Discharge Summary ---
PRINCIPAL DIAGNOSES 1. Psychosomatoform disorder. 2. Fall without any injuries. 3. Chronic pain syndrome. 4. Epilepsy. 5. Bipolar disorder. SECONDARY DIAGNOSES 1. Bipolar disorder. 2. Epilepsy. CHIEF COMPLAINT: Fall. HISTORY OF PRESENT ILLNESS: A 47-year-old man with fall. Please refer to the H and P for further details. HOSPITAL COURSE: The patient fell. All imaging negative. No pain at this time. No injuries. The patient is currently symptom free. He has been resumed on his home medications and will be discharged to the nursing facility. DISCHARGE MEDICATIONS: Per electronic medical record. FOLLOWUP: Primary care doctor in 1 week. CONDITION ON DISCHARGE: Stable and improving. DISCHARGE LOCATION: Prior living situation. DIANE RENTERIA MD Job#: [id number] [place]
[2017-05-27] MEDS: FUROSEMIDE 40 MG TAB PO SCH ×2 (08:34→09:00)
[2017-05-27 08:46] LABS: CREATINE KINASE 59 IU/L (30-200)
[2017-05-27] MEDS: QUETIAPINE FUMARATE 25 MG TAB PO SCH ×2 (09:00→09:11)
[2017-05-27] MEDS: PREGABALIN 50 MG CAP PO SCH ×2 (09:00→09:11)
[2017-05-27] MEDS: LEVETIRACETAM 500 MG TAB PO SCH ×2 (09:00→09:09)
[2017-05-27] MEDS: RIVAROXABAN 10 MG TABLET PO SCH ×2 (09:00→09:25)
[2017-05-27] MEDS: PREDNISONE 10 MG TAB PO SCH ×2 (09:00→09:11)
[2017-05-27] MEDS: METOPROLOL TARTRATE 25 MG TAB PO SCH (09:00)
[2017-05-27] MEDS: LAMOTRIGINE 25 MG TAB PO SCH ×2 (09:00→09:31)
[2017-05-27] MEDS: DOXEPIN HCL 25 MG CAP PO SCH ×2 (09:00→09:14)
[2017-05-27] MEDS: PANTOPRAZOLE SOD 40 MG TABEC PO SCH ×2 (09:00→09:11)
[2017-05-27] MEDS: DULOXETINE HCL 30 MG DELAYED RELEASE PO SCH ×2 (09:00→09:09)
[2017-05-27] MEDS ORDERED: RIVAROXABAN 20 MG TABLET PO SCH (09:00)
[2017-05-27] MEDS: CLOPIDOGREL BISULFATE 75 MG TAB PO SCH ×2 (09:00→09:11)
[2017-05-27 09:05] LABS: CHOL/HDL RATIO 5.3 (3.9-4.7)
[2017-05-27 14:08] LABS: CREATINE KINASE 69 IU/L (30-200)
[2017-05-27] MEDS ORDERED: SODIUM CHLORIDE 0.9% 500ML 500 ML IV ONE (16:05)
[2017-05-27] MEDS ORDERED: MIRTAZAPINE 15 MG TAB PO SCH (21:00)
[2017-05-27] MEDS ORDERED: ATORVASTATIN 20 MG TAB PO SCH (21:00)
[2017-05-27] MEDS ORDERED: ATORVASTATIN 40 MG TAB PO SCH (21:00)
[2017-05-27] MEDS ORDERED: QUETIAPINE FUMARATE 100 MG TAB PO SCH (21:00)
[2017-05-27] MEDS ORDERED: TRAZODONE HCL 50 MG TAB PO SCH (21:00)
== END 2017-05-27 17:38 | disposition home or self-care (01) ==
LOC: ER 21:08 → ERHOLD 23:59 → IMCU 05-27 01:14
PROVIDERS: ADMIT Internal Medicine; ATTEND Internal Medicine
DX: F45.9 Somatoform disorder, unspecified (principal); R55 Syncope and collapse; R07.2 Precordial pain; W05.0XXA Fall from non-moving wheelchair, initial encounter; G89.4 Chronic pain syndrome; G40.909 Epilepsy, unspecified, not intractable, without status epilepticus; G47.00 Insomnia, unspecified; E78.5 Hyperlipidemia, unspecified; R45.1 Restlessness and agitation; F31.9 Bipolar disorder, unspecified
CPT/HCPCS: 36415 ×2; 70450; 71045; 80053; 80061; 82550 ×2; 82553 ×2; 84484 ×2; 85025; 85610; 85730; 93005; 93306; 93880; 99284; G0378 ×2; J7040

== ENCOUNTER 2017-06-23 16:37 | Emergency (ER) | payer OTHER ==
[~2017-06-23] VITALS: Ht 188 cm; Wt 217.7 kg
--- OUTSIDE RECORDS SUMMARY | 2017-06-23 16:40 | XMS REPORT | Clinical Summary ---
Author Author [facility] [employer] Organization [facility] Address Unknown Phone Unavailable Care Team Providers Care Pastry Assistant Name Role Phone Asked, Pcp PCP Unavailable [...] INFLUENZA VACCINE 09/18/2017 Implants Implanted Type Area Sales And Marketing Representative Device Expiration Model / Identifier Date Serial / Lot . Results Not on fileafter 06/22/2016 Insurance Payer Benefit Subscriber ID Type Phone Address Plan / Group [facility] MEDICAID [facility] xxxxxxxxx HMO COMM STAR[place] [address]
--- OUTSIDE RECORDS SUMMARY | 2017-06-23 16:40 | XMS REPORT | Clinical Summary ---
Author Author AMISH [facility]St[facility] Organization [facility] Address Unknown Phone Unavailable Care Team Providers Care Talent Manager Name Role Phone PCP Unavailable Allergies Active Allergy Reactions Severity Noted Date Comments Baclofen 12/25/2016 Prochlorperazine 01/05/2017 Edisylate Cyclobenzaprine 12/25/2016 [place] Analogues 01/05/2017 Caused nausea and Syncope ( [...] Office Visit Family Altagracia Mcnally, Bipolar affective SENIOR SAS DEVELOPER disorder, current episode mixed, current episode severity unspecified (HCC) (Primary Dx);Type 2 diabetes mellitus with other neurologic complication, without long-term current use of insulin (HCC);History of CVA (cerebrovascular accident);Coronary artery disease involving [place] heart without angina pectoris, unspecified vessel or [...] Family Medicine Altagracia Allen, Chronic pain syndrome SENIOR SAS DEVELOPER (Primary Dx);Essential hypertension;Chronic obstructive pulmonary disease, unspecified COPD type (HCC);Gastroesophageal reflux disease without esophagitis after 06/22/2016 Family History Medical History Relation Name Comments [...] Taken Blood Pressure 146/88 01/24/2017 4:05 PM SOCIAL SCIENCE TEACHER Pulse 95 01/24/2017 4:05 PM SOCIAL SCIENCE TEACHER Temperature 36.9 C (98.4 F) 01/24/2017 4:05 PM SOCIAL SCIENCE TEACHER Respiratory Rate 19 01/24/2017 4:05 PM SOCIAL SCIENCE TEACHER Oxygen Saturation 98% 01/24/2017 4:05 PM SOCIAL SCIENCE TEACHER Inhaled Oxygen - - Concentration Weight 177.8 kg (392 lb) 01/05/2017 6:03 AM SOCIAL SCIENCE TEACHER Height - - Body Mass Index - [...] Specimen Performing Laboratory Blood OTHER (EXTERNAL) after 06/22/2016
--- OUTSIDE RECORDS SUMMARY | 2017-06-23 16:40 | XMS REPORT | Continuity of Care Document ---
Author Author [facility] Organization [facility] Address [address] [place] [address] Phone Unavailable Care Team Providers Care Supervisor [employer] Name Role Phone MARYBEL WOODARD MD PCP Insurance Providers Guarantor Lui Whitney Address [address] [place] [address] Email NONE Payer [facility] [employer] Policy Number [id number] Subscriber's Name Jessica,Lui Relationship 18 Self / Same As Patient Group Number [id number] Effective Date 17 Advance Directives Directive Response Recorded Date/Time Does the patient have an advance directive? No 05/27/17 1:44am If yes, is advance directive on file with [facility]? No 05/27/17 1:44am If not on file with [facility] will patient provide a copy? Yes 05/27/17 1:44am Do you have a Directive to Physician? No 05/27/17 12:08am Do you have a Medical Power of Pressroom Supervisor? No 05/27/17 12:08am Do you have an out of hospital Do Not Resuscitate Order? No 05/27/17 12:08am Do you have any special needs we should be aware of? No 05/27/17 12:08am Do you have a support person here with you today? Yes 05/27/17 12:08am Did patient receive Notice of Privacy Practices? Yes 05/27/17 12:08am Did patient receive patient rights and responsibilities? Yes 05/27/17 12:08am Problems Medical Problem Onset Date Status Chest pain Unknown Syncope Unknown Medications Current Home Medications Medication Dose [...] Onset Date Status Hx Psychiatric Problems Yes 2017 1:44am Not Applicable Not Applicable Hx Eating Disorder Yes 2017 1:44am Not Applicable Not Applicable Hx Substance Use Disorder No 2017 1:44am Not Applicable Not Applicable Hx Depression No 2017 1:44am Not Applicable Not Applicable Hx Alcohol Use No 2017 1:44am Not Applicable Not Applicable Hx Substance Use Treatment No 2017 1:44am Not Applicable Not Applicable Hx Physical Abuse No 2017 1:44am Not Applicable Not Applicable Smoking Status Start Date Stop Date Current every day smoker Hospital Discharge Instructions No hospital discharge instruction information available. Plan of Care Discharge Date 05/27/17 5:38pm Disposition HOME, SELF-CARE Instructions/Education Provided Syncope Chest Pain - Chest Wall Prescriptions See Medication Section Referrals pcp (Internal Medicine) Order Date: 5-7 Days Entered Date: 2017 7:50am Additional Instructions/Education RESUME ACTIVITY TOLERATED LOW FAT LOW SALT DIET GO TO NEAREST EMERGENGY IF FEVER GREATER THAN 100.1 URELEIVED PAIN, NAUSE VOMTING Functional Status Query Response Date Recorded Assistive Devices Straight Cane 2017 1:55am Ambulation Ability Standby Assistance 1 person assist 2017 1:55am Toileting Ability Moderate Assistance 2017 1:55am Allergies, Adverse Reactions, Alerts Allergen Type Severity [...] (Fahrenheit) 97.8 degrees F (97.6 - 99.5) 2017 5:40pm Pulse Pulse Rate (adult) 64 bpm (60 - 90) 2017 5:40pm Respiratory Rate 21 bpm (12 - 24) 2017 5:40pm Blood Pressure 104/49 mm Hg 2017 5:40pm Height 6 ft 2 in 05/26/2017 9:10pm Weight 444 lb 05/26/2017 9:10pm Body Mass Index 57.0 kg/m^2 2017 1:44am Results Laboratory Results Test Name Result Units Flags Reference Collection Date/Time Result Date/ Time Comments D-Dimer Quantitative (PE/DVT) 0.56 ug/mLFEU H 0.00-0.45 04/19/2017 10: 58pm 04/19/2017 11:22pm Urine Color YELLOW YELLOW 04/20/2017 11:25am 04/20/2017 12:34pm Urine Clarity CLEAR CLEAR 04/20/2017 11:25am 04/20/2017 12:34pm Urine Specific [place] 1.020 1.010-1.025 04/20/2017 11:252017 12:34pm Urine pH 5 5 - 7 04/20/2017 11:25am 04/20/2017 12:34pm Urine Leukocyte Esterase 1+ H NEGATIVE 04/20/2017 11:25am 04/20/2017 12:34pm Urine Nitrite NEGATIVE NEGATIVE 04/20/2017 11:25am 04/20/2017 12: 34pm Urine Protein NEGATIVE NEGATIVE 04/20/2017 11:25am 04/20/2017 12: 34pm Urine Glucose (UA) NEGATIVE NEGATIVE 04/20/2017 11:2504/20/2017 12 :34pm Urine Ketones TRACE H NEGATIVE 04/20/2017 11:25am 04/20/2017 12:34pm Urine Urobilinogen 0.2 mg/dL 0.2 - 1 04/20/2017 11:25am 04/20/2017 12: 34pm Urine Bilirubin 1+ H NEGATIVE 04/20/2017 11:2504/20/2017 12:34pm Confirmatory test currently unavailable. False positive results may occur. Urine Blood NEGATIVE NEGATIVE 04/20/2017 11:2504/20/2017 12:34pm Urine WBC 6-10 /HPF H 0-5 04/20/2017 11:2504/20/2017 1:02pm Urine RBC 0-5 /HPF 0-5 04/20/2017 11:25am 04/20/2017 1:02pm Urine Bacteria NONE /HPF NONE 04/20/2017 11:25am 04/20/2017 1:02pm Urine Epithelial Cells NONE /LPF NONE 04/20/2017 11:25am 04/20/2017 1: 02pm Urine Calcium Oxalate Crystals RARE FEW 04/20/2017 11:25am 2017 1:02pm Uric Acid 9.7 mg/dL H 4.8-8.0 04/20/2017 10:16am 04/20/2017 12:53pm Phosphorus Level 3.8 MG/DL 2.3-4.7 04/20/2017 10:16am 04/20/2017 12: 53pm Magnesium Level 1.9 MG/DL 1.3-2.1 04/20/2017 10:16am 04/20/2017 12: 53pm B-Type Natriuretic Peptide < 12.0 pg/mL 0-100 04/19/2017 10:58pm 2017 11:28pm Lipase 18 U/L 8-78 04/19/2017 10:58pm 04/19/2017 11:28pm White Blood Count 7.14 x10e3/uL 4.8-10.8 05/26/2017 10:40pm 05/26/2017 10:59pm Red Blood Count 4.32 x10e6/uL 4.3-5.7 05/26/2017 10:40pm 05/26/2017 10: 59pm Hemoglobin 13.5 g/dL L 14.0-18.0 05/26/2017 10:40pm 05/26/2017 10:59pm Hematocrit 38.5 % 38.2-49.6 05/26/2017 10:40pm 05/26/2017 10:59pm Mean Corpuscular Volume 89.1 fL 81-99 05/26/2017 10:40pm 05/26/2017 10: 59pm Mean Corpuscular Hemoglobin 31.3 pg 28-32 05/26/2017 10:40pm 2017 10:59pm Mean Corpuscular Hemoglobin Concent 35.1 g/dL H 31-35 05/26/2017 10:40pm 05/26/2017 10:59pm Red Cell Distribution Width 13.1 % 11.7-14.4 05/26/2017 10:40pm 2017 10:59pm Platelet Count 187 x10e3/uL 140-360 05/26/2017 10:40pm 05/26/2017 10: 59pm Neutrophils (%) (Auto) 56.3 % 38.7-80.0 05/26/2017 10:40pm 05/26/2017 10:59pm Lymphocytes (%) (Auto) 31.5 % 18.0-39.1 05/26/2017 10:40pm 05/26/2017 10:59pm Monocytes (%) (Auto) 8.8 % 4.4-11.3 05/26/2017 10:40pm 05/26/2017 10: 59pm Eosinophils (%) (Auto) 2.1 % 0.0-6.0 05/26/2017 10:40pm 05/26/2017 10: 59pm Basophils (%) (Auto) 0.6 % 0.0-1.0 05/26/2017 10:40pm 05/26/2017 10: 59pm IM GRANULOCYTES % 0.7 % 0.0-1.0 05/26/2017 10:40pm 05/26/2017 10:59pm Neutrophils # (Auto) 4.0 2.1-6.9 05/26/2017 10:40pm 05/26/2017 10: 59pm Lymphocytes # (Auto) 2.3 1.0-3.2 05/26/2017 10:40pm 05/26/2017 10: 59pm Monocytes # (Auto) 0.6 0.2-0.8 05/26/2017 10:40pm 05/26/2017 10:59pm Eosinophils # (Auto) 0.2 0.0-0.4 05/26/2017 10:40pm 05/26/2017 10: 59pm Basophils # (Auto) 0.0 0.0-0.1 05/26/2017 10:40pm 05/26/2017 10:59pm Absolute Immature Granulocyte (auto 0.05 x10e3/uL 0-0.1 05/26/2017 10: 40pm 05/26/2017 10:59pm Prothrombin Time 13.7 seconds 11.9-14.5 05/26/2017 10:40pm 05/26/2017 11:07pm Prothromb Time International Ratio 1.14 05/26/2017 10:40pm 2017 11:07pm Oral Anticoagulant Therapy INR Values: 1. Low Intensity Therapy 1.5 - 2.0 2. Moderate Intensity Therapy 2.0 - 3.0 3. High Intensity Therapy(1) 2.5 - 3.5 4. High Intensity Therapy(2) 3.0 - 4.0 5. Panic Value INR > 5.0 Activated Partial Thromboplast Time 32.7 seconds 23.8-35.5 05/26/2017 10 :40pm 05/26/2017 11:07pm Sodium Level 139 mmol/L 136-145 05/26/2017 10:40pm 05/26/2017 11:14pm Potassium Level 3.7 mmol/L 3.5-5.1 05/26/2017 10:40pm 05/26/2017 11: 14pm Chloride Level 106 mmol/L 98-107 05/26/2017 10:40pm 05/26/2017 11:14pm Carbon Dioxide Level 25 mmol/L 22-29 05/26/2017 10:40pm 05/26/2017 11: 14pm Anion Gap 11.7 mmol/L 8-16 05/26/2017 10:40pm 05/26/2017 11:14pm Blood Urea Nitrogen 14 mg/dL 7-05/26/2017 10:40pm 05/26/2017 11: 14pm Creatinine 1.27 mg/dL H 0.72-1.25 05/26/2017 10:40pm 05/26/2017 11:14pm BUN/Creatinine Ratio 11 6-25 05/26/2017 10:40pm 05/26/2017 11:14pm Estimat Glomerular Filtration Rate > 60 ML/MIN 60- 05/26/2017 10:40pm 05/26/2017 11:14pm Ranges were taken from the National Kidney Disease Education Program and the National Kid[employer] Foundation literature. Reference ranges: 60 or greater: Normal 16-59 (for 3 consecutive months): Chronic kidney disease 15 or less: Kidney failure Glucose Level 128 mg/dL H 74-118 05/26/2017 10:40pm 05/26/2017 11:14pm Calcium Level 8.8 mg/dL 8.4-10.2 05/26/2017 10:40pm 05/26/2017 11:14pm Total Bilirubin 0.4 mg/dL 0.2-1.2 05/26/2017 10:40pm 05/26/2017 11: 14pm Aspartate Amino Transf (AST/SGOT) 21 IU/L 5-34 05/26/2017 10:40pm 05/26 11:14pm Alanine Aminotransferase (ALT/SGPT) 40 IU/L 0-55 05/26/2017 10:40pm 09/2017 11:14pm Total Protein 6.6 g/dL 6.5-8.1 05/26/2017 10:40pm 05/26/2017 11:14pm Albumin 3.6 g/dL 3.5-5.0 05/26/2017 10:40pm 05/26/2017 11:14pm Globulin 3.0 g/dL 2.3-3.5 05/26/2017 10:40pm 05/26/2017 11:14pm Albumin/Globulin Ratio 1.2 0.8-2.0 05/26/2017 10:40pm 05/26/2017 11: 14pm Alkaline Phosphatase 88 IU/L 40-150 05/26/2017 10:40pm 05/26/2017 11: 14pm Triglycerides Level 276 MG/DL H 0-149 2017 8:10am 2017 9: 07am Cholesterol Level 132 MD/DL 0-199 2017 8:10am 2017 9:07am Less than 200 mg/dL Low Risk 201 - 239 mg/dL Borderline Risk 240 mg/dl and greater High Risk LDL Cholesterol 52 MG/DL L 60-130 2017 8:10am 2017 9:07am HDL Cholesterol 25 MG/DL L 40-60 2017 8:10am 2017 9:07am Cholesterol/HDL Ratio 5.3 H 3.9-4.7 2017 8:10am 2017 9: 07am Creatine Kinase 69 IU/L 30-200 2017 1:49pm 2017 2:09pm Creatine Kinase MB 1.10 ng/mL 0-5.0 2017 1:49pm 2017 2: 18pm Troponin I < 0.001 ng/mL 0-0.300 2017 1:49pm 2017 2:18pm Procedures Procedure Status Date Provider(s) Computed tomography of chest with contrast Active 04/20/17 SARA IVERSON MD Computed tomography of brain without radiopaque contrast Active 05/26/17 AZAEL HARMAN MD Encounters Encounter Location Arrival/Admit Date Discharge/Depart Date Attending Provider Admitted Inpatient (obs) [facility] 05/26/17 11:59pm DIANE RENTERIA MD Discharged Inpatient (obs) [facility] 04/20/17 2:04am 06/05 4:13pm ALVARO SCHUMACHER MD
[2017-06-23] MEDS ORDERED: ONDANSETRON HCL 4 MG ORAL DISINTEGRATING TAB PO ONE (17:45)
[2017-06-23] MEDS ORDERED: SODIUM CHLORIDE 0.9% 1000ML 1,000 ML IV STA (17:45)
[2017-06-23] MEDS ORDERED: PROMETHAZINE 25MG/ NS 50ML (IV) IV ONE (18:15)
[2017-06-23] MEDS ORDERED: FENTANYL CITRATE/PF 100MCG/2 ML INJ IV ONE (18:15)
[2017-06-23 18:18] LABS: BASOPHILS % 0.4 % (0.0-1.0); EOSINOPHILS # (AUTO) 0.1 (0.0-0.4); EOSINOPHILS % 1.9 % (0.0-6.0); HEMATOCRIT 40.9 % (38.2-49.6); HEMOGLOBIN 14.1 g/dL (14.0-18.0); LYMPHOCYTES % 28.8 % (18.0-39.1); MEAN CORPUSCULAR HGB CONC 34.5 g/dL (31-35); MEAN CORPUSCULAR VOLUME 89.9 fL (81-99); MONOCYTES # (AUTO) 0.5 (0.2-0.8); MONOCYTES % 6.9 % (4.4-11.3); NEUTROPHILS # (AUTO) 4.3 (2.1-6.9); NEUTROPHILS % 61.3 % (38.7-80.0); PLATELET COUNT 235 x10e3/uL (140-360); RED BLOOD COUNT 4.55 x10e6/uL (4.3-5.7); RED CELL DISTRIBUTION WIDTH 13.5 % (11.7-14.4)
[2017-06-23 18:38] LABS: ALBUMIN 3.9 g/dL (3.5-5.0); ANION GAP 17.8 mmol/L (8-16); CALCIUM 9.5 mg/dL (8.4-10.2); CREATININE, SERUM 1.32 mg/dL (0.72-1.25); MAGNESIUM 2.1 MG/DL (1.3-2.1); POTASSIUM 3.8 mmol/L (3.5-5.1)
--- NOTE | 2017-06-23 19:36 | Diagnostic Imaging Report ---
EXAM: CT ABDOMEN AND PELVIS with IV CONTRAST DATE: 06/23/2017 5:45 PM Time stamp on Exam: 1910 hours INDICATION: Abdominal pain, nausea and vomiting, right-sided pain COMPARISON: None TECHNIQUE: The abdomen and pelvis were scanned using a multidetector helical scanner. Coronal and sagittal reformations were obtained. Routine protocol performed. IV Contrast: 100 cc Isovue-370 Oral Contrast: Water CTDIvol has been reviewed. It is below the limits set by the Radiation Protocol Committee (RPC). FINDINGS: LOWER THORAX: Nonspecific 5 mm right middle lobe pulmonary nodule, likely postinfectious/postinflammatory. LIVER: No masses BILIARY: Cholecystectomy without ductal dilation. SPLEEN: No masses PANCREAS: No masses ADRENALS: No nodules KIDNEYS: Normal appearance of the right kidney. There is no left kidney. GI TRACT: No distention, wall thickening or evidence of obstruction. Normal appendix. VESSELS: Mild atherosclerotic changes of the abdominal aorta without aneurysm. Infrarenal inferior vena cava filter. PERITONEUM/RETROPERITONEUM: No free air or fluid LYMPH NODES: No lymphadenopathy REPRODUCTIVE ORGANS: Unremarkable BLADDER: Unremarkable SOFT TISSUES: Tiny umbilical hernia. BONES: Degenerative disc disease predominantly at L3/L4. IMPRESSION: No acute findings in the CT of the abdomen or pelvis. Signed by: Dr. Simona Godinez M.D. on 06/23/2017 7:33 PM
[2017-06-23] MEDS ORDERED: HYOSCYAMINE SULFATE 0.5 MG/ML AMP IV ONE (20:00)
[2017-06-24] MEDS ORDERED: SODIUM CHLORIDE 0.9% 50ML 50 ML ONE (01:25)
[2017-06-24] MEDS ORDERED: IOPAMIDOL 370 MG/ML 200 ML INFUS..BTL INJ ONE (01:25)
== END 2017-06-23 23:07 | disposition home or self-care (01) ==
LOC: ER 16:37
DX: R10.31 Right lower quadrant pain (principal); R11.2 Nausea with vomiting, unspecified; I25.10 Atherosclerotic heart disease of native coronary artery without angina pectoris; I10 Essential (primary) hypertension; I50.9 Heart failure, unspecified; E78.5 Hyperlipidemia, unspecified; Z95.1 Presence of aortocoronary bypass graft
CPT/HCPCS: 36415; 74177; 80053; 82150; 83605; 83690; 83735; 85025; 99283; J1980; J2550; J7030

== ENCOUNTER 2018-01-02 00:47 | Emergency (ER) | payer OTHER ==
[~2018-01-02] VITALS: Ht 188 cm; Wt 195.0 kg
--- OUTSIDE RECORDS SUMMARY | 2018-01-02 00:50 | XMS REPORT | Clinical Summary ---
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 Ok to take tylenol with codeine no reaction Hydrocodone-Acetaminophen Rash Low 12/22/2017 Paper tape Other 10/23/2015 Metoclopramide Hcl Rash Low 01/22/2016 Tramadol 12/22/2017 Ondansetron Hcl Rash Low 10/23/2015 Medications End Date Status Medication Sig Dispensed Refills Start Date Active enoxaparin (LOVENOX) 150 Inject 150 mg 0 mg/mL injection under the skin daily. Active clopidogrel (PLAVIX) 75 Take 75 mg by 0 mg tablet mouth daily. Active furosemide (LASIX) 40 mg Take 40 mg by 0 tablet mouth daily. Active metFORMIN (GLUCOPHAGE) Take 1,000 mg 0 1,000 mg tablet by mouth 2 (two) times a day with meals. Active QUEtiapine (SEROquel) 400 Take 800 mg 0 MG tablet by mouth nightly. Active atorvastatin (LIPITOR) 40 Take 40 mg by 0 MG tablet mouth 6 nightly. Active pantoprazole (PROTONIX) Take 40 mg by 1 40 MG EC tablet mouth once 7 daily. Active gabapentin (NEURONTIN) Take 300 mg 0 300 mg capsule by mouth 3 (three) times a day as needed (pain). Active fluticasone-vilanterol Inhale 1 0 (BREO ELLIPTA) 100-25 inhalations mcg/dose blister with daily. device powder for inhalation Active isosorbide mononitrate Take 30 mg by 0 (IMDUR) 30 MG 24 hr mouth daily. tablet Active nitroglycerin (NITROSTAT) Place 0.4 mg 0 0.4 MG SL tablet under the tongue every 5 (five) minutes as needed for chest pain. Active acetaminophen-codeine Take 1 tablet 0 (TYLENOL WITH CODEINE #4) by mouth 300-60 mg per tablet every 4 (four) hours as needed for moderate pain. Active ibuprofen (ADVIL,MOTRIN) Take 800 mg 0 800 MG tablet by mouth every 8 (eight) hours as needed for mild pain. Active metoprolol tartrate Take 25 mg by 0 (LOPRESSOR) 25 mg tablet mouth 2 (two) times a day. 01/23/2018 Active aspirin (ECOTRIN) 81 MG Take 1 tablet 30 tablet 0 enteric coated tablet (81 mg total) 8 by mouth daily for 30 days. 12/24/2017 Discontinued aspirin (ECOTRIN) 325 MG Take 325 mg 0 enteric coated tablet by mouth daily. 12/31/2017 clindamycin (CLEOCIN HCL) Take 1 21 capsule 0 300 MG capsule capsule (300 8 mg total) by mouth 3 (three) times a day for 7 days. 12/31/2017 clindamycin (CLEOCIN HCL) Take 1 21 capsule 0 300 MG capsule capsule (300 8 mg total) by mouth 3 (three) times a day for 7 days. Active Problems Problem Noted Date Bilateral swelling of feet 01/22/2016 Precordial pain 01/21/2016 Chest pain 01/21/2016 Encounters Care Team Description Date Type Specialty Farzad Santos MD CV LEFT HEART CATH LV GRAM WITH CORS [28812 (CPT)] 12/24/2017 Surgery Procedural Cardiology Hawa Russell MD Bavare, Arusha Amod, MD Yerramadha, Muralidhar Reddy, MD Chest pain, unspecified type (Primary Dx); Cutaneous abscess of abdominal wall; Precordial pain; Bilateral swelling of feet 12/22/2017 Emergency General Internal Medicine - 12/24/2017 after 01/01/2017 Family History Medical History Relation Name Comments Heart attack Brother Hodgkin's lymphoma Brother Factor V Leiden Father deficiency Heart attack Father Stroke Father Factor V Leiden Mother deficiency Heart attack Mother Hodgkin's lymphoma Sister Relation Name Status Comments Brother Father Mother Sister Social History Date Tobacco Use Types Packs/Day Years Used Current Every Day Smoker Cigarettes 0.5 35 Smokeless Tobacco: Never Used Comments: prev 2-3 packs per day Alcohol Use Drinks/Week oz/Week Comments No Sex Assigned at Date Recorded Not on file Industry Job Start Date Occupation Not on file Not on file Not on file Travel End Travel History Travel Start No recent travel history available. Last Filed Vital Signs Time Taken Vital Sign Reading 12/24/2017 1:52 PM TRACK LAYER Blood Pressure 133/62 12/24/2017 1:52 PM TRACK LAYER Pulse 76 12/24/2017 11:24 AM TRACK LAYER Temperature 36.8 C (98.3 F) 12/24/2017 11:24 AM TRACK LAYER Respiratory Rate 18 12/24/2017 11:24 AM TRACK LAYER Oxygen Saturation 97% - Inhaled Oxygen - Concentration 12/22/2017 3:31 AM TRACK LAYER Weight 186 kg (410 lb) 12/22/2017 3:31 AM TRACK LAYER Height 188 cm (6' 2") 12/22/2017 3:31 AM TRACK LAYER Body Mass Index 52.64 Plan of Treatment Health Maintenance Due Date Last Done Comments MMR VACCINES (1 of - 05/28/1971 Standard series) VARICELLA VACCINES (1 of 05/28/1983 2 - 2-dose adolescent series) INFLUENZA VACCINE 09/18/2017 HEPATITIS B VACCINES Aged Out No longer eligible based on patient's age to complete this topic IPV VACCINES Aged Out No longer eligible based on patient's age to complete this topic MENINGOCOCCAL VACCINE Aged Out No longer eligible based on patient's age to complete this topic Implants Device Identifier Shelf Expiration Date Model / Serial / Lot Implanted Type Area Manufactur er 08/17/2018 [id number] / / [id number] Device Vasclr Clsr Vasoactive Cardiovasc Right: Groin Intstnl Peptd 6fr Angio-Seal - ular [id number] Implants Implanted: Qty: 1 on 12/24/2017 by Farzad Santos MD . Procedures Comments Procedure Name Priority Date/Time Associated Diagnosis CV LEFT HEART CATH LV Routine 12/24/2017 GRAM WITH CORS 10:16 AM TRACK LAYER ECG 12-LEAD Routine 12/24/2017 7:03 AM TRACK LAYER ESTIMATED GFR Routine 12/24/2017 5:00 AM TRACK LAYER HC COMPLETE BLD COUNT Routine 12/24/2017 W/AUTO DIFF 5:00 AM TRACK LAYER BASIC METABOLIC PANEL Routine 12/24/2017 5:00 AM TRACK LAYER TYPE AND SCREEN Routine 12/24/2017 5:00 AM TRACK LAYER PARTIAL THROMBOPLASTIN Routine 12/24/2017 TIME (PTT) 5:00 AM TRACK LAYER PROTHROMBIN TIME WITH INR Routine 12/24/2017 5:00 AM TRACK LAYER TROPONIN Timed 12/23/2017 6:57 PM TRACK LAYER NM MYOCARDIAL PERFUSION Routine 12/23/2017 STRESS ONLY 2:52 PM TRACK LAYER CV STRESS TEST NUCLEAR Routine 12/23/2017 CARDIO 2:52 PM TRACK LAYER TROPONIN Timed 12/23/2017 1:57 PM TRACK LAYER ECHOCARDIOGRAM 2D Routine 12/22/2017 COMPLETE W MMODE SPECTRAL 6:32 PM TRACK LAYER COLOR DOPPLER (22455) TROPONIN Timed 12/22/2017 10:58 AM TRACK LAYER TROPONIN Timed 12/22/2017 6:[address] ANGIOGRAM PE CHEST STAT 12/22/2017 5:48 AM TRACK LAYER ECG 12-LEAD STAT 12/22/2017 4:28 AM TRACK LAYER XR CHEST 1 VW PORTABLE STAT 12/22/2017 3:52 AM TRACK LAYER ESTIMATED GFR STAT 12/22/2017 3:36 AM TRACK LAYER B NATRIURETIC PEPTIDE STAT 12/22/2017 3:36 AM TRACK LAYER TROPONIN STAT 12/22/2017 3:36 AM TRACK LAYER LIPASE LEVEL STAT 12/22/2017 3:36 AM TRACK LAYER HEPATIC FUNCTION PANEL STAT 12/22/2017 3:36 AM TRACK LAYER BASIC METABOLIC PANEL STAT 12/22/2017 3:36 AM TRACK LAYER HC COMPLETE BLD COUNT STAT 12/22/2017 W/AUTO DIFF 3:36 AM TRACK LAYER ECG ED PRELIMINARY Routine 12/22/2017 INTERPRETATION 3:28 AM TRACK LAYER after 01/01/2017 Results * Cv labor utilization superintendent procedure (12/24/2017 10:16 AM TRACK LAYER) Narrative Performed At [facility] MD Physician Signed CardiologyBrief Op Note Date of Service: 12/24/2017 8:53 AM Case Time: 12/24/2017 8:53 AM Surgeon: Farzad Santos MD Procedure: CV LEFT HEART CATH LV GRAM WITH CORS Location: [facility] Biomass Plant Manager Invasive Location []Hide copied text []Hover for attribution information Cardiac Catheterization Operative Note Lui Lopez,[id number] y.o. male 12/24/2017; [facility] BRAKE LINING MAKER RM 1 Procedure(s): CV LEFT HEART CATH without LV GRAM WITH CORS Tolerated procedure well Condition: stable Complications:None; patient tolerated the procedure well. Findings: LM: Normal LAD:Large. Normal.Wraps around apex LCX: Large, Dominant. multiple OMs. Normal RCA: Non -Dominant, Medium size. normal LVEDP: 44 No gradient across the aortic valve Contrast: 80 ml Fluoro time:8.6 Air Kerma :[id number] Procedure Details: After informed consent patient was brought in to the labor utilization superintendent and was prepped and draped in a sterile fashion. Under moderate sedation and under local anesthesia a 6F sheath was placed into the common femoral artery using modified Seldinger technique.Due to patient severe obesity this was done with the help of US as well as fluroscopy. We used amplatz wire to advance a 6F 23 cms.A 6F JL4 diagnostic catheter was advanced over a J wire and LM was engaged. Serial angiogram were performed. The JL4 was removed over a J-wire. A 6F 3 DRC diagnostic catheter was advanced and RCA was engaged. Serial coronary angiograms were performed.The 3DRC catheter was e and aortic valve was crossed. LVEDP was measured.The catheter was removed over a J wire. A limited femoral angiogram was performed. The puncture site was closed with 6F Angioseal device over amplatz wire. Good hemostasis was obtained. Pre-op Diagnosis: * No Diagnosis Codes entered * Surgeon(s) and Role: * Farzad Santos MD - Primary Anesthesia: Moderate sedation Blood Products Administered:None Estimated Blood Loss:None Sheath/IV: Specimens: * No specimens in log * Grafts/Implants: Implant Name Type Inv. Item Serial No. Barge Master Lot No. LRB No. Used Action DEVICE VASCLR CLSR VASOACTIVE INTSTNL PEPTD 6FR ANGIO-SEAL - [id number] Cardiovascular Implants DEVICE VASCLR CLSR VASOACTIVE INTSTNL PEPTD 6FR ANGIO-SEAL [id number] Right 1 Implanted Impression: Normal coronaries Elevated LVEDP Farzad Santos MD Date: 12/24/2017Time: 10:06 AM Performing Organization Address [facility] Phone Number [facility] [address] [place] [address] * ECG 12 lead (12/24/2017 7:03 AM TRACK LAYER) Only the most recent of 2 results within the time period is included. Ventricular rate 71 [facility] Atrial rate 71 [facility] SD interval 172 [facility] QRSD interval 92 [facility] QT interval 438 [facility] QTC interval 475 [facility] P axis 1 68 [facility] QRS axis 1 26 [facility] T wave axis 65 [facility] EKG impression Normal sinus rhythm-Normal H MUSE ECG-In automated comparison with ECG of 22-DEC-2017 04:28,-Vent. rate has decreased BY50 BPM-ST no longer depressed in Anterolateral leads-Nonspecific T wave abnormality no longer evident in Lateral leads- Performing Organization Address [facility] Phone Number [facility] MUSE [address] [place] [address] * Estimated GFR (12/24/2017 5:00 AM TRACK LAYER) Only the most recent of 2 results within the time period is included. Estimated GFR 65 mL/min/1.73 m2 [facility] DEPARTMENT OF Comment: PATHOLOGY AND CatergoryUnitsInte GENOMIC MEDICINE rpretation G1 >=90 Normal or high G2 60-89Mildly decreased [id number] Mildly to moderately decreased [id number] Moderately to severely decreased G4 15-29Severely decreased G5 <15Kidney failure The eGFR was calculated using the Chronic Kidney Disease Epidemiology Collaboration (CKD-EPI) equation. Interpretation is based on recommendations of the National Kidney Foundation-Kidney Disease Outcomes Quality Initiative (NKF-KDOQI) published in 2014. Specimen Plasma specimen Performing Organization Address [facility] Phone Number [address] [place] [address] PATHOLOGY AND [employer] MEDICINE * Partial thromboplastin time, activated (12/24/2017 5:00 AM TRACK LAYER) PTT 42.1 (H) 23.0 - 36.0 sec [facility] DEPARTMENT OF Comment: PATHOLOGY AND PTT therapeutic range for GENOMIC MEDICINE unfractionated heparin is 61.0-112.0 seconds which corresponds to Anti-Xa 0.3-0.7 U/ml. Specimen Blood Performing Organization Address [facility] Phone Number [address] [place] [address] PATHOLOGY AND [employer] Communication [facility] * Prothrombin time with INR (12/24/2017 5:00 AM TRACK LAYER) Prothrombin time 12.9 11.5 - 14.5 sec [facility] DEPARTMENT OF PATHOLOGY AND [employer] MEDICINE INR 1.0 [facility] DEPARTMENT OF Comment: PATHOLOGY AND The International Normalized GENOMIC MEDICINE Ratio (INR) is a therapeutic monitoring tool for patients who are stable on oral anticoagulant therapy. An INR of 2.0-3.0 is suggested for deep vein thrombosis/pulmonary embolism. Specimen Blood Performing Organization Address [facility] Phone Number [address] [place] [phone] PATHOLOGY AND [employer] MEDICINE * CBC with platelet and differential (12/24/2017 5:00 AM TRACK LAYER) Only the most recent of 2 results within the time period is included. WBC 5.75 4.50 - 11.00 k/uL [facility] DEPARTMENT OF PATHOLOGY AND GENOMIC MEDICINE RBC 4.44 4.40 - 6.00 m/uL [facility] DEPARTMENT OF PATHOLOGY AND GENOMIC MEDICINE HGB 13.7 (L) 14.0 - 18.0 g/dL [facility] DEPARTMENT OF PATHOLOGY AND GENOMIC MEDICINE HCT 41.1 41.0 - 51.0 % [facility] DEPARTMENT OF PATHOLOGY AND GENOMIC MEDICINE MCV 92.6 82.0 - 100.0 fL [facility] DEPARTMENT OF PATHOLOGY AND GENOMIC MEDICINE MCH 30.9 27.0 - 34.0 pg [facility] DEPARTMENT OF PATHOLOGY AND GENOMIC MEDICINE MCHC 33.3 31.0 - 37.0 g/dL [facility] DEPARTMENT OF PATHOLOGY AND GENOMIC MEDICINE RDW - SD 45.7 37.0 - 55.0 fL [facility] DEPARTMENT OF PATHOLOGY AND GENOMIC MEDICINE MPV 10.6 8.8 - 13.2 fL [facility] DEPARTMENT OF PATHOLOGY AND GENOMIC MEDICINE Platelet count 193 150 - 400 k/uL [facility] DEPARTMENT OF PATHOLOGY AND GENOMIC MEDICINE Nucleated RBC 0.00 /100 WBC [facility] DEPARTMENT OF PATHOLOGY AND GENOMIC MEDICINE Neutrophils 51.0 39.0 - 69.0 % [facility] DEPARTMENT OF PATHOLOGY AND GENOMIC MEDICINE Lymphocytes 37.2 25.0 - 45.0 % [facility] DEPARTMENT OF PATHOLOGY AND GENOMIC MEDICINE Monocytes 8.2 0.0 - 10.0 % [facility] DEPARTMENT OF PATHOLOGY AND GENOMIC MEDICINE Eosinophils 2.4 0.0 - 5.0 % [facility] DEPARTMENT OF PATHOLOGY AND GENOMIC MEDICINE Basophils 0.5 0.0 - 1.0 % [facility] DEPARTMENT OF PATHOLOGY AND GENOMIC MEDICINE Specimen Blood Performing Organization Address [facility] Phone Number [address] [place] [address] PATHOLOGY [facility] * Type and screen (12/24/2017 5:00 AM TRACK LAYER) ABO grouping O [facility] DEPARTMENT OF PATHOLOGY AND GENOMIC MEDICINE Rh type NEG [facility] DEPARTMENT OF PATHOLOGY AND GENOMIC MEDICINE Antibody screen NEG [facility] DEPARTMENT OF PATHOLOGY AND GENOMIC MEDICINE Specimen Blood Performing Organization Address [facility] Phone Number [address] [place] [address] PATHOLOGY [facility] * Basic metabolic panel (12/24/2017 5:00 AM TRACK LAYER) Only the most recent of 2 results within the time period is included. Sodium 143 135 - 148 mEq/L [facility] DEPARTMENT OF PATHOLOGY AND GENOMIC MEDICINE Potassium 4.1 3.5 - 5.0 mEq/L [facility] DEPARTMENT OF PATHOLOGY AND GENOMIC MEDICINE Chloride 101 98 - 112 mEq/L [facility] DEPARTMENT OF PATHOLOGY AND GENOMIC MEDICINE CO2 30 24 - 31 mEq/L [facility] DEPARTMENT OF PATHOLOGY AND GENOMIC MEDICINE Anion gap 12@ANIO 7 - 15 mEq/L [facility] DEPARTMENT OF PATHOLOGY AND GENOMIC MEDICINE BUN 18 6 - 20 mg/dL [facility] PATHOLOGY AND GENOMIC MEDICINE Creatinine 1.30 (H) 0.70 - 1.20 mg/dL [facility] OF PATHOLOGY AND GENOMIC MEDICINE Glucose 161 (H) 65 - 99 mg/dL [facility] PATHOLOGY AND GENOMIC MEDICINE Calcium 9.9 8.3 - 10.2 mg/dL [facility] OF PATHOLOGY AND GENOMIC MEDICINE Specimen Plasma specimen Performing Organization Address [facility] Phone Number [address] [place] [address] PATHOLOGY AND [facility] * Troponin (12/23/2017 6:57 PM TRACK LAYER) Only the most recent of 5 results within the time period is included. Troponin <0.300 0.000 - 0.300 ng/mL [facility] DEPARTMENT OF Comment: PATHOLOGY AND 0.30 - 1.49 GENOMIC MEDICINE ng/mlMay indicate increased risk of acute coronary syndrome. >=1.5 ng/ml Consistent with acute myocardial infarction. The diagnostic value of a single normal or non-diagnostic result is questionable.Serial samples at 2-6 hour intervals are required to rule out acute myocardial injury. Specimen Plasma specimen Performing Organization Address [facility] Phone Number [address] [place] [address] PATHOLOGY [facility] * Cv stress test (12/23/2017 2:52 PM TRACK LAYER) Resting BP [facility] MUSE Protocol Name CHRISTA H MUSE Time in Exercise Phase 00:03:16 [facility] Max Systolic BP 146 H MUSE Max Diastolic BP 86 H MUSE Max Heart Rate 106 H MUSE Max Predicted Heart Rate 173 H MUSE Test Indication [facility] Arrhy During Ex [facility] ECG Interp Before EX [facility] ECG Interp During Ex [facility] Ex Summary Comment [facility] Overall HR Response to [facility] Exercise Overall BP Response To [facility] Exercise Reason for Termination [facility] Stress Test Impression Reason for Termination: [facility] -Comments: --Waveform interpreted in report associated with image study.No interpretation is provided as part of this Stress ECG report.-Electronically Signed By Farzad Santos MD ([id number]), multimedia editor Merline Palmer ([id number]) on 12/24/2017 10:25:10 AM Performing Organization Address City/State/Zipcode Phone Number [facility] MUSE [address] [place] [address] * Nm myocardial perfusion (12/23/2017 2:52 PM TRACK LAYER) Target HR 173.00 bpm [facility] Resting HR 71 BPM [facility] Resting BP 143/96 mmHg [facility] Narrative Performed At [facility] Study Quality: good. Normal left ventricular systolic function. Stress only study. Patient was noted to have inferioe defect that is small to medium in size. Patient had severe , typical angina with stress and also had mild worsening od ST elevation in inferolateral elads, despite the fact that these chanegs are old. Will cancel the rest imaging and proceed with cath. Performing Organization Address [facility] Phone Number [facility] [address] [place] [address] * Echocardiogram complete w contrast and 3D if needed (12/22/2017 6:32 PM TRACK LAYER) Velocity Ratio (V1/V2) 0.99 m/s [facility] IVS,d 1.28 cm [facility] EF 61.32 % [facility] LA volume 70.00 cm3 [facility] LVPWD,d 1.88 cm [facility] AoV Mean PG 3.27 mmHg [facility] AV LVOT peak gradient 6.18 mmHg [facility] MV valve area p 1/2 3.96 cm2 [facility] method E/A ratio 1.09 [facility] E wave decelartion time 200.88 msec [facility] LVOT Diam,S 2.42 cm [facility] LVOT area 4.60 cm2 [facility] LVOT Vmax 1.24 m/s [facility] LVOT VTI 0.26 m [facility] AoV Peak PG 6.28 mmHg [facility] MV Peak E Aly 0.95 m/s [facility] MV stenosis pressure 1/2 55.55 ms [facility] time MV Peak A Aly 0.87 m/s [facility] LV Vol,s A2C 53.16 mL [facility] LV Vol,d A2C 129.70 mL [facility] AoV Area, Vmax 4.55 cm2 [facility] AoV Area, VTI 5.18 cm2 [facility] AoV Vmax 1.25 m/s [facility] LA Area d A4C 78 cm2 [facility] LV,d 4.38 cm [facility] LV,s 2.95 cm [facility] LV Vol,d A4C 88.65 ml [facility] LV Vol,s A4C 42.27 ml [facility] TR Vpeak 3.16 mm/s [facility] MV E A ratio 1.09 [facility] RA pressure 5.00 mmHg [facility] TR pk grad 30.16 mmHg [facility] RVSP 44.99 mmHg [facility] LV SYS VOL 33.58 ml [facility] LV JOSHUA VOL 86.81 ml [facility] LA diam s 4.90 cm [facility] LA area s A4C 27.07 cm2 [facility] LV SV Teich 2D 53.23 ml [facility] LVOT SI 40.81 ml/m2 [facility] AoV Cusp sep 1.23 [facility] Aortic Root 3.75 cm [facility] AoV Vmn 0.87 [facility] IVS s 2D 1.77 [facility] LA Ao Ratio Mmode 1.32 [facility] D E excurs 2.10 [facility] E f slope 0.06 [facility] E prime lat 0.10 [facility] E nabil sept 0.11 [facility] PV acc T slope 4.40 [facility] PV AT 154.14 msec [facility] AoV VTI 0.23 m [facility] LV EF,A2C 59.01 % [facility] LV EF,A4C 52.32 % [facility] LV EF,BP 54.62 % [facility] [place],d A2C 8.13 cm [facility] [place],d A4C 8.20 cm [facility] [place],s A2C 6.33 cm [facility] [place],s A4C 6.75 cm [facility] LV SV,A2C 76.54 % [facility] LV SV,A4C 46.38 % [facility] LV Vol,d BP 107.58 ml [facility] LV Vol,s BP 48.82 nl [facility] LVOT Vmn 0.82 [facility] Pt Size 187.96 [facility] Pt Wt 185.97 [facility] LVOT mean grad 3.06 mmHg [facility] LVPW s PLAX 2.27 cm [facility] MV Decel slope 4.73 m/s2 [facility] Narrative Performed At [facility] Left ventricular systolic function is normal. Left Ventricular ejection fraction is 55 - 60%. No pericardial effusion Mild pulmonary hypertension present. Performing Organization Address City/State/Zipcode Phone Number [facility] [address] [place] [address] * CT Angiogram Pe Chest (12/22/2017 5:48 AM TRACK LAYER) Narrative Performed At EXAMINATION: CT ANGIOGRAM PE CHEST RADIANT CLINICAL HISTORY: rule out PE TECHNIQUE:PE PROTOCOL: CT angiographic images of the chest were obtained during intravenous administration of iodinated contrast. Computerized reformatted images and 3-D MIP images were also obtained and archived (CT pulmonary embolus protocol). CT imaging was performed with iterative reconstruction technique and/or automated exposure control to reduce radiation dose. COMPARISON: 01/21/2016 IMPRESSION: CHEST: 1. Pulmonary Arteries: Timing of the bolus is late. Suboptimal opacification of the pulmonary arteries. A large or central pulmonary embolus is not identified. Assessment of peripheral pulmonary vasculature limited. 2. Aorta: The thoracic aorta is nonaneurysmal 3. Heart: The heart is normal in size. Sternotomy wires are present. 4. Pericardial Fluid: No pericardial effusion. 5. Mediastinum: No enlarged mediastinal or hilar lymphadenopathy. No mediastinal mass. 4. Airways: Central airways are patent. 5. Lungs: Interstitial pulmonary congestion is noted. No acute infiltrates. Mild patchy bandlike atelectasis at the lung bases. No suspicious masses. 6. Pleural Fluid: No pleural effusions. 7. Bones: Degenerative changes of the osseous structures. No suspicious lesions. 8. Upper Abdomen: Fatty infiltration of the liver. Status post cholecystectomy. Spleen appears enlarged. This is incompletely included in the [id number]. 9. Other Findings: None SUMMARY: 1. No CT scan evidence of acute pulmonary embolus. 2.Interstitial pulmonary congestion and mild pulmonary edema. No acute infiltrates. [facility]-[id number] Procedure Note Interface, Radiology Results Incoming - 12/22/2017 6:02 AM TRACK LAYER EXAMINATION: CT ANGIOGRAM PE CHEST CLINICAL HISTORY: rule out PE TECHNIQUE: PE PROTOCOL: CT angiographic images of the chest were obtained during intravenous administration of iodinated contrast. Computerized reformatted images and 3-D MIP images were also obtained and archived (CT pulmonary embolus protocol). CT imaging was performed with iterative reconstruction technique and/or automated exposure control to reduce radiation dose. COMPARISON: 01/21/2016 IMPRESSION: CHEST: 1. Pulmonary Arteries: Timing of the bolus is late. Suboptimal opacification of the pulmonary arteries. A large or central pulmonary embolus is not identified. Assessment of peripheral pulmonary vasculature limited. 2. Aorta: The thoracic aorta is nonaneurysmal 3. Heart: The heart is normal in size. Sternotomy wires are present. 4. Pericardial Fluid: No pericardial effusion. 5. Mediastinum: No enlarged mediastinal or hilar lymphadenopathy. No mediastinal mass. 4. Airways: Central airways are patent. 5. Lungs: Interstitial pulmonary congestion is noted. No acute infiltrates. Mild patchy bandlike atelectasis at the lung bases. No suspicious masses. 6. Pleural Fluid: No pleural effusions. 7. Bones: Degenerative changes of the osseous structures. No suspicious lesions. 8. Upper Abdomen: Fatty infiltration of the liver. Status post cholecystectomy. Spleen appears enlarged. This is incompletely included in the pvpfy-aw-wjbw. 9. Other Findings: None SUMMARY: 1. No CT scan evidence of acute pulmonary embolus. 2. Interstitial pulmonary congestion and mild pulmonary edema. No acute infiltrates. [facility]-[id number] Performing Organization Address [facility] Phone [facility] [address] [place] [address] * XR Chest 1 Vw Portable (12/22/2017 3:52 AM TRACK LAYER) Narrative Performed At EXAMINATION:XR CHEST 1 VW PORTABLE RADIANT CLINICAL HISTORY:chest pain COMPARISON:04/23/2016 IMPRESSION: Cardiac silhouette is normal. Mild to moderate vascular congestion/edema. No effusions or pneumothorax. No acute osseous abnormalities. [facility]-[id number] Procedure Note Interface, Radiology Results Incoming - 12/22/2017 4:16 AM TRACK LAYER EXAMINATION: XR CHEST 1 VW PORTABLE CLINICAL HISTORY: chest pain COMPARISON: 04/23/2016 IMPRESSION: Cardiac silhouette is normal. Mild to moderate vascular congestion/edema. No effusions or pneumothorax. No acute osseous abnormalities. [facility]-[id number] Performing Organization Address [facility] Phone Number Cover [phone] [place] [address] * B natriuretic peptide (12/22/2017 3:36 AM TRACK LAYER) BNP 17 0 - 100 pg/mL [facility] DEPARTMENT OF PATHOLOGY AND GENOMIC MEDICINE Specimen Blood Performing Organization Address [facility] Phone Number [address] [place] [address] PATHOLOGY AND GENOMIC MEDICINE * Lipase level (12/22/2017 3:36 AM TRACK LAYER) Lipase 30 13 - 60 U/L [facility] DEPARTMENT OF PATHOLOGY AND GENOMIC MEDICINE Specimen Plasma specimen Performing Organization Address [facility] Phone Number [address] [place] [address] PATHOLOGY AND GENOMIC MEDICINE * Hepatic function panel (12/22/2017 3:36 AM TRACK LAYER) Albumin 4.2 3.5 - 5.0 g/dL [facility] DEPARTMENT OF PATHOLOGY AND GENOMIC MEDICINE Total bilirubin 0.3 0.0 - 1.2 mg/dL [facility] DEPARTMENT OF PATHOLOGY AND GENOMIC MEDICINE Bilirubin direct <0.1 0.0 - 0.3 mg/dL [facility] DEPARTMENT OF PATHOLOGY AND GENOMIC MEDICINE Alkaline phosphatase 86 40 - 129 U/L [facility] DEPARTMENT OF PATHOLOGY AND GENOMIC MEDICINE Protein 7.2 6.3 - 8.3 g/dL [facility] DEPARTMENT OF Comment: PATHOLOGY AND GENOMIC MEDICINE 4.6-7.0 g/dL 1 week 4.4-7.6 g/dL 7 months-1year 5.1-7.3 g/dL 1-2 years5.6-7 .5 g/dL >3 years6.0-8 .0 g/dL 18-150 6.3-8.3 g/dL ALT 24 5 - 50 U/L [facility] DEPARTMENT OF PATHOLOGY AND GENOMIC MEDICINE AST 35 10 - 50 U/L [facility] DEPARTMENT OF PATHOLOGY AND GENOMIC MEDICINE Specimen Plasma specimen Performing Organization Address [facility] Phone Number [address] [place] [address] PATHOLOGY AND GENOMIC MEDICINE * ECG ED Preliminary Interpretation - NOT AN ORDER (12/22/2017 3:28 AM TRACK LAYER) Narrative Performed At Hawa Russell MD 12/23/2017 11:06 AM ECG ED Preliminary Interpretation - Not an Order Performed by: HAWA RUSSELL Authorized by: HAWA RUSSELL ECG reviewed by ED Physician in the absence of a nurse healthcare manager: yes Interpretation: Interpretation: abnormal Rate: ECG rate:121 ECG rate assessment: tachycardic Rhythm: Rhythm: sinus tachycardia Ectopy: Ectopy: none QRS: QRS axis:Normal Conduction: Conduction: normal ST segments: ST segments:Abnormal Depression:V3, V2 and V4 T waves: T waves: normal after 01/01/2017 Insurance Payer Benefit Subscriber ID Type Phone Address Plan / Group [facility] MEDICAID [employer] xxxxxxxxx HMO COMM [address]+ [address] [facility] (Home) [place] [address] Advance Directives Patient has advance care planning documents, and code status on file. For more i nformation, please contact: Eliel Garcia [address] [place] [address] Date Inactivated Comments Code Status Date Activated 12/24/2017 7:48 PM Full Code 12/22/2017 10:39 AM Code Status decision reached by: Patient 01/24/2016 4:50 PM Full Code 01/22/2016 3:07 AM Code Status decision reached by: Patient
--- OUTSIDE RECORDS SUMMARY | 2018-01-02 00:51 | XMS REPORT ---
Author Author [facility] Address Unknown Phone Unavailable Care Team Providers Care Embedded Software Test Engineer Name Role Phone UNKNOWN, REFFERING PP Unavailable Jean Carlos CLOUD Unavailable Unavailable Kassandra HARMAN Unavailable Unavailable Jean Carlos IVERSON Unavailable Unavailable RASSOLI, AMIR Unavailable Unavailable Divinsky, Ianir Unavailable Unavailable Payers Payer Name Policy Type Policy Number Effective Date Expiration Date Problems This patient has no known problems. Allergies, Adverse Reactions, Alerts Allergy Name Allergy Type Status Severity Reaction(s) Onset Date Inactive Date Treating Clinician Comments morphine DA Active [place] 2017-11-20 00:00:00 ampicillin DA Active SV 2017-11-20 00:00:00 tramadol DA Active U 2017-11-20 00:00:00 gabapentin DA Active SV 2017-11-20 00:00:00 metoclopramide DA Active U 2017-11-20 00:00:00 ondansetron DA Active [place] 2017-11-20 00:00:00 ketorolac DA Active [place] 2017-11-20 00:00:00 morphine DA Active [place] 2017-11-01 00:00:00 ampicillin DA Active SV 2017-11-01 00:00:00 tramadol DA Active U 2017-11-01 00:00:00 gabapentin DA Active SV 2017-11-01 00:00:00 metoclopramide DA Active U 2017-11-01 00:00:00 ondansetron DA Active [place] 2017-11-01 00:00:00 ketorolac DA Active MO 2017-11-01 00:00:00 morphine DA Active [place] 2017-09-29 00:00:00 ampicillin DA Active SV 2017-09-29 00:00:00 tramadol DA Active U 2017-09-29 00:00:00 gabapentin DA Active SV 2017-09-29 00:00:00 metoclopramide DA Active U 2017-09-29 00:00:00 ondansetron DA Active [place] 2017-09-29 00:00:00 ketorolac DA Active MO 2017-09-29 00:00:00 Medications This patient has no known medications. Results Test Description Test Time Test Comments Text Results Atomic Results Result Comments D-Dimer, Quantitative 2016-09-07 09:54:00 D-Dimer, Quant (test code=DDQNT) 620 ng/mL 0-500 Troponin [id number] 09:37:00* Test Item Value Reference Range Comments Troponin T (test code=JOSÉ) <0.010 ng/mL 0.000-0.090 Comprehensive Metabolic Ioqsl3104-08-63 09:37:00* Test Item Value Reference Range Comments [...] race is not provided, and the patient isAfrican-Jamaican, multiply by 1.212. If sex is not provided, and thepatient is female, multiply by 0.742. Results for patients <18 years ofage have not been validated by the MDRD study and should be interpretedwith caution.eGFR Result Interpretation:eGFR > or=60 is in the Normal RangeeGFR < 60 may mean kidney diseaseeGFR < 15 may mean kidney failureRanges recommended by the National Kidney Foundat ion,http://nkdep.nih.gov CBC with Ojifpqurdxtz9543-14-24 09:00:00* Test Item Value Reference Range Comments [...] Lymph Abs (test code=ALYMPH) 1.4 K/cumm 0.5-4.6 [place] Abs (test code=AMONO) 0.4 K/cumm 0.0-1.2 Eos Abs (test code=AEOS) 0.18 K/cumm 0.00-0.74 Baso Abs (test code=ABASO) 0.0 K/cumm 0.00-0.21 Glucose blood wrvanbwuaic6859-88-01 11:05:00* Test Item Value Reference Range Comments Glucose blood fingerstick (test iuze=ZTJ5388) 173 mg/dL 65-120 Complete blood count (CBC) with automated white blood cell (WBC) differential 2016-06-07 06:15:00* Test Item Value Reference Range Comments White blood cell count (test bxpl=IUE4414) 6.0 4.3-10.9 Blood erythrocytes count (number/volume) (test syzp=03613-9) 4.52 M/ul 4.33-5.43 Hemoglobin measurement (test ggeq=FSQ7767) 13.6 g/dL 13.6-17.9 Blood hematocrit (volume fraction) (test tauo=36558-3) 39.7 % 39.6-49.0 MCV (test qxbc=32294-4) 87.7 fL 80-100 MCH (test yiki=77013-6) 30.0 pg 27.0-35.0 MCHC (test code=MCHC) 34.2 g/dL 32.0-36.0 Platelets (test code=PLT) 184 152-406 Red Cell Distribution Width (test code=RDW) 15.0 % 12.1-15.2 Blood platelet mean volume (test jlpj=59678-7) 8.2 fL 7.6-11.3 Neutrophils % (test code=RENETTA%) 61.7 % 41.7-73.7 Lymphocytes/leuk NFr Bld (test kyer=72522-9) 26.6 % 15.3-44.8 Monocyte percentage (test evno=7558-1) 9.0 % 3.3-12.3 Eosinophil % (test bfyw=171-8) 1.9 % 0-4.4 Basophil % (test tdcg=60331-7) 0.8 % 0-1.3 Absolute neutrophil count (test ddgw=423-8) 3.7 1.8-8.0 Absolute lymphocyte count (test pskt=82108-1) 1.6 0.7-4.9 Absolute monocyte count (test oolz=967-9) 0.5 0.1-1.3 Absolute Eosinophils (test code=EOA) 0.1 0-0.5 Absolute Basophils (test code=BASA) 0.0 0-0.5 [facility] K4405-03-64 05:57:00* Test Item Value Reference Range Comments Troponin I (test code=TROP) < 0.03 <0.03 Primary Language Iranian Physician Instructions Edit Troponin Times according to first ED TroponinBasi Metabolic Xpqvp6635-16-80 05:55:00 * Test Item Value Reference Range Comments Sodium level (test bdvi=GHY1474) 139 meq/L 135-145 4.0 Chloride measurement (test jses=YKX6785) 107 meq/L 101-111 Bicarbonate (test code=CO2) 26 meq/L 21-31 Glucose measurement (test jtxw=SWT7748) 112 mg/dL 65-120 ADA Clinical Practice Recommendation: <100 mg/dl=Normal Fasting Glucose BUN Bld-mCnc (test cswc=4404-3) 14 mg/dL 6-20 Creatinine measurement (test jplk=VTS4475) 0.99 mg/dL 0.61-1.24 The creatinine method used has been calibrated to be traceable to Isotope dilution Mass Spectrometry (IDMS). For more information: www.nkdep.nih.gov Estimated glomerular filtration rate (GFR) determination (test mdxa=42048-1) 81 mL =/>90 FOR CHRONIC KIDNEY DISEASE: GFR STAGE DESCRIPTION=/>90 STAGE 1 NORMAL--OR-- MINIMAL KIDNEY DAMAGE WITH NORMAL GFR 60-89 STAGE 2 MILD DECREASE IN GFR 30-59 STAGE 3 MODERATE DECREASE IN GFR 15-29 STAGE 4 SEVERE DECREASE IN GFR <15 STAGE 5 KIDNEY FAILURE The Glomerular Filtration Rate (GFR) has been calculated using the IDMS-Traceable MDRD Study Equation. Calcium Level (test code=CA) 9.1 mg/dL 8.5-10.5 [facility] F9013-41-20 22:43:00* Test Item Value Reference Range Comments Troponin I (test code=TROP) < 0.03 <0.03 Primary Language Iranian Physician Instructions Edit Troponin Times according to first ED TroponinUrine dipstick testing at [facility] 2016-06-06 17:00:00* Test Item Value Reference Range Comments Urine specific gravity measurement (test naav=8519-0) 1.020 1.005-1.030 Urine glucose detection (test jaqq=5952-7) Negative NEG Urine Ketones (test code=UKET) NEGATIVE NEG Urine blood detection (test otma=08797-4) Negative NEG Urine pH (test nzov=9750-4) 6.0 5.0-7.0 Urinalysis with microscopy (test zcvf=95142-8) NEGATIVE NEG Urine nitrate measurement (test ctyh=96784-9) NEGATIVE NEG Urine Leukocyte Esterase (test code=UESTR) TRACE NEG Comment Bed:20 mc NEG NEG NEG TRACE NEG 6.0 NEG Y 1.020Brain natriuretic peptide (BNP) sesvyovaxir4167-46-31 15:04:00* Test Item Value Reference Range Comments Brain natriuretic peptide (BNP) measurement (test xnhr=36305-5) 46 pg/mL <=100 Basic Metabolic Ixuci3953-46-56 14:54:00* Test Item Value Reference Range Comments Sodium level (test pulm=OZU6937) 140 meq/L 135-145 3.6 Chloride measurement (test qpff=FSG8608) 105 meq/L 101-111 Bicarbonate (test code=CO2) 24 meq/L 21-31 Glucose measurement (test qgjj=MKZ3466) 115 mg/dL 65-120 ADA Clinical Practice Recommendation: <100 mg/dl=Normal Fasting Glucose BUN Bld-mCnc (test prci=9133-4) 12 mg/dL 6-20 Creatinine measurement (test dchd=TJB5632) 1.02 mg/dL 0.61-1.24 The creatinine method used has been calibrated to be traceable to Isotope dilution Mass Spectrometry (IDMS). For more information: www.nkdep.nih.gov Estimated glomerular filtration rate (GFR) determination (test evte=84399-0) 79 mL =/>90 FOR CHRONIC KIDNEY DISEASE: GFR STAGE DESCRIPTION=/>90 STAGE 1 NORMAL--OR-- MINIMAL KIDNEY DAMAGE WITH NORMAL GFR 60-89 STAGE 2 MILD DECREASE IN GFR 30-59 STAGE 3 MODERATE DECREASE IN GFR 15-29 STAGE 4 SEVERE DECREASE IN GFR <15 STAGE 5 KIDNEY FAILURE The Glomerular Filtration Rate (GFR) has been calculated using the IDMS-Traceable MDRD Study Equation. Calcium Level (test code=CA) 9.3 mg/dL 8.5-10.5 Liver (Hepatic) Bfawhnql2676-25-16 14:54:00* Test Item Value Reference Range Comments Aspartate aminotransferase (AST) measurement (test yagg=ITP0732) 22 [iU]/L 10-42 ALT/SGPT (test code=SGPT) 23 [iU]/L 10-60 Alkaline Phosphatase (test code=ALK) 76 [iU]/L 42-121 Bilirubin total (test wkxb=IZY3381) 0.8 mg/dL 0.3-1.2 Bilirubin direct (test okcb=0681-1) 0.1 mg/dL 0-0.2 Serum total protein measurement (test awfi=2470-6) 6.5 g/dL 6.0-8.3 Albumin measurement (test lprg=JAB5590) 4.1 g/dL 3.2-5.5 Globulin (test code=GLOB) 2.4 g/dL 2.3-3.5 Albumin/Globulin Ratio (test code=A/G) 1.7 1.1-1.8 Creatine Hkchcipaurrmg7798-02-36 14:54:00* Test Item Value Reference Range Comments Creatine Phosphokinase (test code=CPK) 114 [iU]/L 22-269 CKMB Creatine Kinase RL3879-21-39 14:54:00* Test Item Value Reference Range Comments CKMB Creatine Kinase MB (test code=CKMB) 1.6 ng/mL 0.3-4.0 Magnesium atmsyyjorra0067-76-24 14:54:00* Test Item Value Reference Range Comments Magnesium measurement (test rpjo=13739-4) 1.9 mg/dL 1.8-2.5 Troponin (Emerg Dept Use Only)2016-06-06 14:51:00* Test Item Value Reference Range Comments Troponin (Emerg Dept Use Only) (test code=TROPED) < 0.03 <0.03 Comment Bed:20 Test Ordered to Rule Out VTE/DVT? NProthrombin time (PT) with international normalized ratio (INR)2016-06-06 14:40:00* Test Item Value Reference Range Comments PT Prothrombin Time (test code=PROTIME) 11.8 s 9.5-12.5 INR in Blood by Coagulation assay (test feka=57945-2) 1.04 Monitor pts using INR value (not prothrombin time) INR Coumadin Therapy: Low Range (prophylaxis) 2.0-3.0 High Range (high risk of clot formation) 2.5-3.5 Test Ordered to Rule Out VTE/DVT? N Test Ordered to Rule Out VTE/DVT? NPTT, Activated Partial Somkpb8374-85-85 14:40:00* Test Item Value Reference Range Comments PTT, Activated Partial Thromb (test code=PTT) 33.2 s 24.3-36.9 Test Ordered to Rule Out VTE/DVT? N Test Ordered to Rule Out VTE/DVT? NComplete blood count (CBC) with automated white blood cell (WBC) ltzdonfdmmnq9618-89-37 14:37:00* Test Item Value Reference Range Comments White blood cell count (test ctcs=HZH4077) 6.2 4.3-10.9 Blood erythrocytes count (number/volume) (test ufcc=79024-3) 4.87 M/ul 4.33-5.43 Hemoglobin measurement (test swwp=NYJ4699) 14.4 g/dL 13.6-17.9 Blood hematocrit (volume fraction) (test cgnk=73190-2) 42.5 % 39.6-49.0 MCV (test ajdv=26465-7) 87.3 fL 80-100 MCH (test rhsz=60723-3) 29.5 pg 27.0-35.0 MCHC (test code=MCHC) 33.8 g/dL 32.0-36.0 Platelets (test code=PLT) 213 152-406 Red Cell Distribution Width (test code=RDW) 14.6 % 12.1-15.2 Blood platelet mean volume (test vbsu=91244-7) 8.2 fL 7.6-11.3 Neutrophils % (test code=RENETTA%) 56.1 % 41.7-73.7 Lymphocytes/leuk NFr Bld (test fwxq=06140-4) 33.4 % 15.3-44.8 Monocyte percentage (test kupd=0295-1) 8.3 % 3.3-12.3 Eosinophil % (test tfot=988-5) 1.5 % 0-4.4 Basophil % (test rrdk=05575-2) 0.7 % 0-1.3 Absolute neutrophil count (test buua=711-6) 3.5 1.8-8.0 Absolute lymphocyte count (test epae=27532-3) 2.1 0.7-4.9 Absolute monocyte count (test vzxz=456-9) 0.5 0.1-1.3 Absolute Eosinophils (test code=EOA) 0.1 0-0.5 Absolute Basophils (test code=BASA) 0.0 0-0.5 CT ABDOMEN/PELVIS [place] [address] Patient Name: ARANZA WHITNEY MR #: [id number] : 1970 Age/Sex: 47/M Req #: [id number] Adm Physician: Ordered by: RUFIN[address] CASH CONTROLLER Report #: [id number] Location: ER Room/Bed: Procedure: [id number] CT/CT ABDOMEN/PELVIS W Exam D ate: 06/23/17 Exam Time: 1900 REPORT STATUS: Si gned EXAM: CT ABDOMEN AND PELVIS with IV CONTRAST DATE: 06/23/2017 5:45 PM T ana stamp on Exam: 1910 hours INDICATION: Abdominal pain, nausea and vomiting , right-sided pain COMPARISON: None TECHNIQUE: The abdomen and pelvis were scanned using a multidetector helical scanner. Coronal and sagittal reformati ons were obtained. Routine protocol performed. IV Contrast: 100 cc Isovue-37 0 Oral Contrast: Water CTDIvol has been reviewed. It is below the limits set by the Radiation Protocol Committee (RPC). FINDINGS: LOWER THORAX: Non specific 5 mm right middle lobe pulmonary nodule, likely postinfectious/postin flammatory. LIVER: No masses BILIARY: Cholecystectomy without ductal dila tion. SPLEEN: No masses PANCREAS: No masses ADRENALS: No nodules KIDNEYS: Normal appearance of the right kidney. There is no left kidney. GI TRACT: No distention, wall thickening or evidence of obstruction. Normal appe ndix. VESSELS: Mild atherosclerotic changes of the abdominal aorta without aneurysm. Infrarenal inferior vena cava filter. PERITONEUM/RETROPERITONEUM: No free air or fluid LYMPH NODES: No lymphadenopathy REPRODUCTIVE ORGANS: Unremarkable BLADDER: Unremarkable SOFT TISSUES: Tiny umbilical hernia. BONES: Degenerative disc disease predominantly at L3/L4. IMPRESSION: No acute findings in the CT of the abdomen or pelvis. Signed by: Dr. Vitaly Fontanez M.D. on 06/23/2017 7:33 PM Dictated By: VITALY GODINEZ MD Electr onically Signed By: VITALY GODINEZ MD on 06/23/171932 Transcribed By: ADALBERTO frost 06/23/171932 COPY TO: RUFINA ST[address] CASH CONTROLLER CT BRAIN WO [place] [address] Patient Name: ARANZA WHITNEY MR #: [id number] : 10/1970 Age/Sex: 46/M Req #: [id number] Adm Physician: Ordered by: AZAEL HARMAN MD Report #: [id number] Location: ER Room /Bed: Procedure: [id number] CT/CT BRAIN WO Exam Date: 05/26/17 Exam Time: 2144 REPORT STATUS: Signed EXAMINATION: Head CT without contrast. HISTORY:Syncope. COMP ARISON:None. TECHNIQUE: Multidetector axial images were obtained from the fora men magnum to the vertex without contrast. The images were reconstructed using brain and bone algorithms. Thin section brain images were reformatted into c oronal and sagittal planes. Intravenous contrast: None IMAGE QUALIT Y: Acceptable. FINDINGS: Skull/scalp: No lytic or blastic. lesions. No surgical changes. Parenchyma: No abnormal density. No acute hemorrhag e, mass or acute major vascular territorial infarct. Arteries: No density suggestive of thrombosis. Dural sinuses: No abnormal density suggestive of thrombosis. Ventricles: No hydrocephalus or displacement. Extra -axial spaces: No abnormal density. Brain volume: Moderate cerebellar vo lume loss Craniocervical junction: No mass, Chiari malformation, or basila r invagination. Sella: No mass. Paranasal/mastoid sinuses: Imaged portions unremarkable. IMPRESSION: No acute intracranial abnormality. Nonspecific moderate cerebellar volume loss. Signed by: Dr. Dian arreola M.D. on 05/26/2017 10:31 PM Dictated By: DIAN MACIAS MD [facility] Signed By: DIAN MACIAS MD on 05/26/172230 Transcribed By: ADALBERTO on 05/26/172230 COPY TO: AZAEL HARMAN MD CHEST SINGLE (PORTABLE) [place] [address] Patient Name: ARANZA WHITNEY MR #: [id number] : 1970 Age/Sex: 46/M Req #: [id number] Adm Physician: Ordered by: AZAEL HARMAN MD Report #: [id number] Location: ER Room/Bed: Procedure: [id number] DX/CHEST SINGLE (PORTABLE) Exam Date: 05/26/17 Exam Time: [address] ATUS: Signed EXAMINATION: CHEST SINGLE (PORTABLE) INDICATION: Chest pain COMPARISON: CT of the chest on 04/19/2017 and chest x-ray o n 04/20/2017 FINDINGS: TUBES and LINES: None. LUNGS: Lungs are not well inflated. There are bibasilar atelectasis. There is mild prominenc e of the central pulmonary vasculature, consistent with pulmonary venous conge stion. PLEURA: No pleural effusion or pneumothorax. HEART AND MEDIAST INUM: Cardiac size is mildly enlarged. There are atherosclerotic calcificatio ns within the aorta. Midline sternotomy wires and cerclage are intact BON ES AND SOFT TISSUES: No acute osseous lesion. Soft tissues are unremarkable. UPPER ABDOMEN: No free air under the diaphragm. IMPRESSION: 1. No acute thoracic abnormality. 2. Low lung volumes and severely limited due to patient's body habitus Signed by: Dr. Antonio Soto M.D. on 05/26/2017 10: 54 PM Dictated By: ANTONIO RICK MD 53 Transcribed By: ADALBERTO on 05/26/172253 COPY TO: AZAEL HARMAN MD CHEST SINGLE (PORTABLE) [place] [address] Patient Name: ARANZA WHITNEY MR #: [id number] : 10/1970 Age/Sex: 46/M Req #: [id number] Adm Physician: Ordered by: SARA IVERSON MD Report #: [id number] Location: ER Room/Bed: Procedure: [id number] DX/CHEST SINGLE (PORTABLE) Exam Date: 04/20/17 Exam Time: 0007 REPORT STATUS: S igned EXAM: CHEST SINGLE (PORTABLE), AP 1 view INDICATION: Left-sided chest , jaw and arm pain COMPARISON: None FINDINGS: LINES/TUBES: None JAILYN NGS: Perihilar and bibasilar atelectasis and bronchial thickening. PLEURA: No effusions or pneumothorax. HEART AND MEDIASTINUM: The heart is within n ormal size limits. Upper median sternotomy wires. Nonspecific densities projec jon over the lower thorax, may be external to the patient. BONES AND SOFT TISSUES: No acute findings. IMPRESSION: Perihilar and bibasilar atelect asis and bronchial thickening. This may be due to low inspiration or infection in the proper clinical setting. Signed by: Kelley Vicente on 04/20/2017 12:22 AM Dictated By: VITALY GODINEZ MD Electronically Sig pedro By: VITALY GODINEZ MD on 04/20/17 0022 Transcribed By: ADALBERTO on 04/20/17 0 022 COPY TO: SARA IVERSON MD CT CHEST W [place] [address] Patient Name: ARANZA WHITNEY MR #: [id number] : 1970 Age/Sex: 46/M Req #: [id number] Adm Physician: Ordered by: SARA IVERSON MD Report #: [id number] Location: ER Room/Bed: Procedure: [id number] CT/CT CHEST W Exam Date: 8 Exam Time: 2253 REPORT STATUS: Signed EXAM : CT CHEST W INDICATION: Left-sided chest, jaw and arm pain COMPARISON: No ne TECHNIQUE: Multidetector CT scanning of the chest was performed. Coronal a nd sagittal multiplanar reformations were obtained. PE protocol performed. I V Contrast: 84 cc Isovue-370 CTDIvol has been reviewed. It is below the limits set by the Radiation Protocol Committee (RPC). FINDINGS: LUNGS AND AIR WAYS: The trachea and major bronchi are unremarkable. Limited evaluation for s mall pulmonary nodules secondary to respiratory artifact. Increased attenuatio n of the lungs secondary to low inspiration. Right middle lobe and lingular at electasis and bronchial thickening. Scattered atelectatic changes in the lung bases. PLEURA: No effusions or pneumothorax. HEART, MEDIASTINUM, VESSE LS: Mild cardiac enlargement, which may be secondary to low inspiration.. No a bnormal pericardial effusion. No thoracic aortic aneurysm. 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 No mediastinal mass. Mildly prominent right hilar lymphoid tissue up to 1.8 cm. No evide nce of a pulmonary embolism. UPPER ABDOMEN: No acute finding. MUSCULOS KELETAL: Incidental bilateral gynecomastia. Surgical changes of median sternot adore. IMPRESSION: Low inspiration with predominantly perihilar and right m iddle lobe atelectasis and bronchial thickening, which could be seen secondary to chronic changes or acute bronchitis. No evidence of a pulmonary embol ism. Signed by: Dr. Vitaly Godinez M.D. on 04/20/2017 12:30 AM Dictated By: VITALY GODINEZ MD Transcribed By: ADALBERTO on 04/20/1729 COPY TO: Kassandra IVERSON MD
--- OUTSIDE RECORDS SUMMARY | 2018-01-02 00:51 | XMS REPORT | Clinical Summary ---
Author Author AMISH [employer] Organization [facility] Address Unknown Phone Unavailable Care Team Providers Care Package Sealer Name Role Phone Janet Stewart MD PCP Allergies Comments Active Allergy Reactions Severity Noted Date Ampicillin Rash Low 01/21/2016 Baclofen 12/25/2016 Prochlorperazine 01/05/2017 Edisylate Cyclobenzaprine 12/25/2016 Caused nausea and Syncope ( When he passed out he broke his neck ) [place] Analogues 01/05/2017 Metoclopramide Hcl Rash Low 01/22/2016 Morphine 12/25/2016 Ondansetron Hcl Rash Low 10/23/2015 Paper tape Other 10/23/2015 Medications End Date Status Medication Sig Dispensed Refills Start Date Active albuterol (ACCUNEB) 0.63 Take 1 ampule 0 mg/3 mL nebulizer by solution nebulization every 6 (six) hours as needed for Wheezing or Shortness of Breath . Active aspirin 81 MG EC tablet Take 81 mg by 0 mouth daily. Active budesonide (PULMICORT) 90 Inhale 1 puff 0 mcg/actuation inhaler by mouth via inhaler 2 (two) times daily. Active clopidogrel (PLAVIX) 75 Take 75 mg by 0 mg tablet mouth daily. Active metFORMIN (GLUCOPHAGE) Take 1,000 mg 0 1000 MG tablet by mouth 2 (two) times daily with breakfast and dinner. Active metoprolol (LOPRESSOR) 25 Take 25 mg by 0 MG tablet mouth 2 (two) times daily. Active pantoprazole (PROTONIX) Take 20 mg by 0 20 MG tablet mouth daily. Active potassium chloride Take 20 mEq 0 (KLOR-CON) 20 mEq packet by mouth daily. Active ranolazine (RANEXA) 500 Take 500 mg 0 MG 12 hr tablet by mouth 2 (two) times daily. Active QUEtiapine (SEROQUEL) 400 Take 400 mg 0 MG tablet by mouth nightly. Active hydrOXYzine (ATARAX) 50 Take 50 mg by 0 MG tablet mouth every 8 (eight) hours as needed for Anxiety. Active isosorbide mononitrate Take 30 mg by 0 (IMDUR) 30 MG 24 hr mouth. tablet Active atorvastatin (LIPITOR) 40 Take 40 mg by 0 01/24/201 MG tablet mouth. 6 Active furosemide (LASIX) 40 MG Take 40 mg by 0 tablet mouth 2 (two) times daily . Active ALPRAZolam (XANAX) 0.5 MG Take 0.5 mg 0 tablet by mouth every 8 (eight) hours as needed for Anxiety. Active doxepin (SINEQUAN) 100 MG Take 100 mg 0 capsule by mouth nightly. Active DULoxetine (CYMBALTA) 60 Take 60 mg by 0 MG capsule mouth daily. Active levETIRAcetam (KEPPRA) Take 500 mg 0 500 MG tablet by mouth 2 (two) times daily. Active LORazepam (ATIVAN) 0.5 MG Take 0.5 mg 0 tablet by mouth every 12 (twelve) hours as needed for Anxiety. Active melatonin 5 mg Cap Take 5 mg by 0 mouth nightly. Active methadone (DOLOPHINE) 5 Take 5 mg by 0 MG tablet mouth 2 (two) times daily as needed for Pain. Active mirtazapine (REMERON) 7.5 Take 7.5 mg 0 MG tablet by mouth nightly. Active oxyCODONE-acetaminophen Take 1 tablet 0 (PERCOCET) 10-325 mg per by mouth tablet every 6 (six) hours as needed for Pain. Active acetaminophen (TYLENOL) Take 650 mg 0 325 MG tablet by mouth every 6 (six) hours as needed for Pain. Active carisoprodol (SOMA) 350 Take 1 tablet 90 tablet 0 02/06/201 MG tablet (350 mg 7 total) by mouth every 8 (eight) hours as needed for Muscle spasms. Max Daily Amount: 1,050 mg Active pregabalin (LYRICA) 100 Take 1 60 capsule 2 02/19/201 MG capsule capsule (100 8 mg total) by mouth 2 (two) times daily. Max Daily Amount: 200 mg 01/09/2017 Discontinued atorvastatin (LIPITOR) 40 Take 40 mg by 0 MG tablet mouth daily. 01/24/2017 Discontinued carisoprodol (SOMA) 350 Take 350 mg 0 MG tablet by mouth every 8 (eight) hours as needed for Muscle spasms. 01/14/2017 Discontinued isosorbide dinitrate Take 30 mg by 0 (ISORDIL) 30 MG tablet mouth daily. 01/24/2017 Discontinued furosemide (LASIX) 40 MG Take 40 mg by 0 tablet mouth 2 (two) times daily. 01/24/2017 Discontinued mirtazapine (REMERON) 15 Take 15 mg by 0 MG tablet mouth nightly. 01/24/2017 Discontinued naproxen Take 220 mg 0 (ALEVE,ANAPROX,MIDOL) 220 by mouth MG tablet every 6 (six) hours. 01/24/2017 Discontinued acetaminophen 500 mg Take 1,000 mg 0 coapsule by mouth 2 (two) times daily. 01/24/2017 Discontinued ALPRAZolam (XANAX) 1 MG I po q6hr prn 16 tablet 0 tablet x4days. 7 01/24/2017 Discontinued fluticasone-vilanterol Inhale by 0 100-25 mcg/dose DsDv mouth via inhaler. 01/24/2017 Discontinued gabapentin (NEURONTIN) Take 300 mg 0 300 MG capsule by mouth. 01/24/2017 Discontinued nitroglycerin (NITROSTAT) Place 0.4 mg 0 0.4 MG SL tablet under the tongue. 01/24/2017 Discontinued aspirin 325 MG EC tablet Take 325 mg 0 by mouth. 01/09/2017 Discontinued clopidogrel (PLAVIX) 75 Take 75 mg by 0 mg tablet mouth. 01/24/2017 Discontinued metFORMIN (GLUCOPHAGE) Take 1,000 mg 0 1000 MG tablet by mouth. 01/24/2017 Discontinued metoprolol (LOPRESSOR) 25 Take 25 mg by 0 MG tablet mouth. 01/24/2017 Discontinued pantoprazole (PROTONIX) Take 40 mg by 0 40 MG tablet mouth. 7 01/24/2017 Discontinued SYMBICORT 80-4.5 0 mcg/actuation inhaler 7 01/24/2017 Discontinued furosemide (LASIX) 20 MG 0 tablet 7 01/24/2017 Discontinued fenofibrate (TRICOR) 145 Take 1 tablet 30 tablet 11 MG tablet (145 mg 7 total) by mouth daily. 02/19/2017 Discontinued pregabalin (LYRICA) 100 Take 100 mg 0 MG capsule by mouth 2 (two) times daily. Active Problems Problem Noted Date Bilateral swelling of feet 01/22/2016 Chest pain 01/21/2016 Precordial pain 01/21/2016 Encounters Care Team Description Date Type Specialty Janet Stewart MD 03/20/2017 Orders Only Family Janet Wang MD 03/15/2017 Orders Only Family Janet Wang MD Bipolar disorder, in partial remission, most recent episode manic (HCC) (Primary Dx); Fall as cause of accidental injury in home as place of occurrence, initial encounter; Chronic bilateral low back pain without sciatica; Essential hypertension; Right hip pain; DM coma, type 2 (HCC) 03/06/2017 Office Visit Family Janet Wang MD 02/19/2017 Refill Family Janet Wang MD 02/14/2017 Orders Only Family Janet Wang MD 02/08/2017 Orders Only Family Janet Wang MD Medication Refill 02/06/2017 Telephone Family Janet Wang MD Advice Only 01/29/2017 Telephone Family Altagracia Mcnally NP Bipolar affective disorder, current episode mixed, current episode severity unspecified (HCC) (Primary Dx); Type 2 diabetes mellitus with other neurologic complication, without long-term current use of insulin (HCC); History of CVA (cerebrovascular accident); Coronary artery disease involving tejon heart without angina pectoris, unspecified vessel or lesion type; Chronic pain syndrome; Essential hypertension; Chronic obstructive pulmonary disease, unspecified COPD type ([facility]) 01/24/2017 Office Visit Family Narciso Boston MD 01/21/2017 Orders Only Janet Cervantes MD Advice Only 01/18/2017 Telephone Janet Cervantes MD 01/15/2017 Orders Only Family Janet Wang MD Advice Only 01/14/2017 Telephone Janet Cervantes MD 01/14/2017 Orders Only Family Janet Wang MD 01/07/2017 Refill Family Janet Wang MD Myositis of multiple sites, unspecified myositis type (Primary Dx); Bipolar affective disorder, current episode mixed, current episode severity unspecified (HCC); Opioid dependence with opioid-induced mood disorder (HCC); Type 2 diabetes mellitus with other neurologic complication, without long-term current use of insulin (HCC); History of CVA (cerebrovascular accident); Morbid obesity ([facility]); Other hyperlipidemia; Pulmonary emphysema, unspecified emphysema type (HCC); Coronary artery disease involving tejon heart without angina pectoris, unspecified vessel or lesion type; Neuropathy 01/05/2017 Office Visit Family Janet Wang MD Medication Management 01/02/2017 Telephone Family Janet Wang MD 01/01/2017 Orders Only Family Medicine after 01/01/2017 Family History Medical History Relation Name Comments Hodgkin's lymphoma Brother Stroke Brother COPD Father Cancer Father Heart disease Father Stroke Father Hodgkin's lymphoma Maternal Grandmother COPD Mother Heart disease Mother Hodgkin's lymphoma Mother Heart disease Sister Relation Name Status Comments Brother Father Maternal Grandmother Mother Sister Social History Date Tobacco Use Types Packs/Day Years Used Former Smoker Cigarettes Alcohol Use Drinks/Week oz/Week Comments No Sex Assigned at Date Recorded Not on file Industry Job Start Date Occupation Not on file Not on file Not on file Travel End Travel History Travel Start No recent travel history available. Last Filed Vital Signs Time Taken Vital Sign Reading 01/24/2017 4:05 PM [employer] Blood Pressure 146/88 01/24/2017 4:05 PM [employer] Pulse 95 01/24/2017 4:05 PM [employer] Temperature 36.9 C (98.4 F) 01/24/2017 4:05 PM [employer] Respiratory Rate 19 01/24/2017 4:05 PM [employer] Oxygen Saturation 98% - Inhaled Oxygen - Concentration 01/05/2017 6:03 AM [employer] Weight 177.8 kg (392 lb) - Height - - Body Mass Index - Plan of Treatment Health Maintenance Due Date Last Done Comments INFLUENZA VACCINE 11/18/2017 Procedures Comments Procedure Name Priority Date/Time Associated Diagnosis HEMOGLOBIN A1C Routine 03/20/2017 DRUG SCREEN, URINE, Routine 03/15/2017 COMPREHENSIVE XR SPINE LUMBER 2 OR 3 Routine 03/15/2017 VIEWS HEMOGLOBIN A1C Routine 03/08/2017 XR ANKLE 2 VIEWS LEFT Routine 01/31/2017 BASIC METABOLIC PANEL (7) Routine 01/24/2017 COMPREHENSIVE METABOLIC Routine 01/07/2017 PANEL after 01/01/2017 Results * Hemoglobin A1c (03/20/2017) Only the most recent of 2 results within the time period is included. Specimen Blood Narrative Performed At Performing Organization Address City/State/[facility] Phone Number OTHER (EXTERNAL) * XR spine lumbar 2 or 3 views (03/15/2017) Narrative Performed At * Drug screen, urine, comprehensive (03/15/2017) Specimen Urine Narrative Performed At Performing Organization Address City/State/[facility] Phone Number OTHER (EXTERNAL) * XR ankle 2 views left (01/31/2017) Narrative Performed At Performing Organization Address City/[facility] Phone Number OTHER (EXTERNAL) * Basic Metabolic Panel (01/24/2017) Specimen Blood Narrative Performed At Performing Organization Address City/State/[place] Phone Number OTHER (EXTERNAL) * Comprehensive metabolic panel (01/07/2017) Specimen Blood Narrative Performed At Performing Organization Address City/State/[place] Phone Number OTHER (EXTERNAL) after 01/01/2017 Insurance Payer Benefit Subscriber ID Type Phone Address Plan / Group MEDICAID - MEDICAID [facility] xxxxxxxxx Medicaid CARE COMM STAR Contracted PLAN
--- OUTSIDE RECORDS SUMMARY | 2018-01-02 00:51 | XMS REPORT | Continuity of Care Document ---
Author Author [facility] Interface Address Unknown Phone Unavailable Problems Problem Status Onset Date Classification Date Reported Comments Source Medications Medication Details Route Status Patient Instructions Ordering Provider Order Date Source Allergies, Adverse Reactions, Alerts Substance Category Reaction Severity Reaction type Status Date Reported Comments Source Immunizations Immunization Date Given Site Status Last Updated Comments Source Results Order Name Results Value Reference Range Date Interpretation Comments Source Vital Signs Vital Sign Value Date Comments Source Encounters Location Location Details Encounter Type Encounter Number Reason For Visit Attending Provider ADM Date DC Date Status Source Outpatient [id number] TANA BENNETT 01/08/2016 Active [facility] Procedures Procedure Code Date Perfomer Comments Source
[2018-01-02] MEDS ORDERED: NITROGLYCERIN 2% OINT 1 GM PKT ONE (01:49)
[2018-01-02 02:00] LABS: BASOPHILS # (AUTO) 0.1 (0.0-0.1); BASOPHILS % 0.8 % (0.0-1.0); EOSINOPHILS # (AUTO) 0.2 (0.0-0.4); EOSINOPHILS % 2.1 % (0.0-6.0); HEMATOCRIT 40.7 % (38.2-49.6); HEMOGLOBIN 14.2 g/dL (14.0-18.0); LYMPHOCYTES # (AUTO) 2.4 (1.0-3.2); LYMPHOCYTES % 31.7 % (18.0-39.1); MEAN CORPUSCULAR HEMOGLOBIN 31.7 pg (28-32); MEAN CORPUSCULAR HGB CONC 34.9 g/dL (31-35); MEAN CORPUSCULAR VOLUME 90.8 fL (81-99); MONOCYTES # (AUTO) 0.5 (0.2-0.8); MONOCYTES % 7.2 % (4.4-11.3); NEUTROPHILS # (AUTO) 4.3 (2.1-6.9); NEUTROPHILS % 57.1 % (38.7-80.0); PLATELET COUNT 269 x10e3/uL (140-360); RED BLOOD COUNT 4.48 x10e6/uL (4.3-5.7); RED CELL DISTRIBUTION WIDTH 13.8 % (11.7-14.4)
[2018-01-02 02:09] LABS: INR 1.49; PROTHROMBIN TIME 19.3 seconds (11.9-14.5)
[2018-01-02 02:12] LABS: ALANINE AMINOTRANSFERASE 28 IU/L (0-55); ALBUMIN 4.1 g/dL (3.5-5.0); ALBUMIN/GLOBULIN RATIO 1.6 (0.8-2.0); ALKALINE PHOSPHATASE 75 IU/L (40-150); ANION GAP 18.5 mmol/L (8-16); BLOOD UREA NITROGEN 15 mg/dL (7-26); BUN/CREATININE RATIO 13 (6-25); CALCIUM 8.3 mg/dL (8.4-10.2); CARBON DIOXIDE 20 mmol/L (22-29); CHLORIDE 99 mmol/L (98-107); CREATINE KINASE 210 IU/L (30-200); CREATININE, SERUM 1.14 mg/dL (0.72-1.25); EST GLOMERULAR FILTRATION RATE > 60 ML/MIN (60-); GLUCOSE 123 mg/dL (74-118); POTASSIUM 3.5 mmol/L (3.5-5.1); SODIUM 134 mmol/L (136-145)
--- NOTE | 2018-01-02 02:25 | Diagnostic Imaging Report ---
EXAM: CHEST SINGLE (PORTABLE), AP 1 view INDICATION: Chest pain, left side COMPARISON: None FINDINGS: Limited evaluation secondary to soft tissue attenuation. LINES/TUBES: None LUNGS: Perihilar bronchial thickening and atelectasis. PLEURA: No effusions or pneumothorax. HEART AND MEDIASTINUM: Stable appearance BONES AND SOFT TISSUES: No acute findings. Median sternotomy hardware. IMPRESSION: No interval change Signed by: Dr. Simona Godinez M.D. on 01/02/2018 2:22 AM
[2018-01-02 02:57] VITALS: BP 129/80
== END 2018-01-02 03:15 | disposition left against medical advice (07) ==
LOC: ER 00:47
DX: R07.89 Other chest pain (principal); Z87.891 Personal history of nicotine dependence
CPT/HCPCS: 36415; 71045; 80053; 82550; 82553; 83880; 84484; 85025; 85610; 85730; 93005; 99284

== ENCOUNTER 2018-02-09 01:16 | Inpatient (IN) | payer OTHER ==
[~2018-02-09] VITALS: Ht 188 cm; Wt 212.3 kg
[2018-02-09] VITALS (7 sets, daily range): BP systolic 100–165; BP diastolic 50–71
--- OUTSIDE RECORDS SUMMARY | 2018-02-09 01:20 | XMS REPORT | Clinical Summary ---
Author Author AMISH [employer] Organization [facility] [employer] [facility] Address Unknown Phone Unavailable Care Team Providers Care Health And Safety Coordinator Name Role Phone Janet Stewart MD PCP Allergies Comments Active Allergy Reactions Severity Noted Date Ampicillin Rash Low 01/21/2016 Baclofen 12/25/2016 Prochlorperazine 01/05/2017 Edisylate Cyclobenzaprine 12/25/2016 Caused nausea and Syncope ( When he passed out he broke his neck ) [place] Analogues 01/05/2017 Metoclopramide Hcl Rash Low 01/22/2016 [...] times daily. Max Daily Amount: 200 mg 02/19/2017 Discontinued pregabalin (LYRICA) 100 Take 100 mg 0 MG capsule by mouth 2 (two) times daily. Active Problems Problem Noted Date Bilateral swelling of feet 01/22/2016 Chest pain 01/21/2016 Precordial pain 01/21/2016 Encounters Care Team Description Date Type Specialty Janet Stewart MD 03/20/2017 Orders Only Family Medicine Janet Stewart MD 03/15/2017 Orders Only Family Medicine Janet Stewart MD Bipolar disorder, in partial remission, most recent episode manic (HCC) (Primary Dx); Fall as cause of accidental injury in home as place of occurrence, initial encounter; Chronic bilateral low back pain without sciatica; Essential hypertension; Right hip pain; DM coma, type 2 (HCC) 03/06/2017 Office Visit Family Medicine Janet Stewart MD 02/19/2017 Refill Family Medicine Janet Stewart MD 02/14/2017 Orders Only Family Medicine Janet Stewart MD 02/08/2017 Orders Only Family Medicine after 02/08/2017 Family History Medical History Relation Name Comments [...] travel history available. Last Filed Vital Signs Not on file Plan of Treatment Health Maintenance Due Date Last Done Comments INFLUENZA VACCINE 11/18/2017 Procedures Comments Procedure Name Priority Date/Time Associated Diagnosis HEMOGLOBIN A1C Routine 03/20/2017 DRUG SCREEN, URINE, Routine 03/15/2017 COMPREHENSIVE XR SPINE LUMBER 2 OR 3 Routine 03/15/2017 VIEWS HEMOGLOBIN A1C Routine 03/08/2017 after 02/08/2017 Results * Hemoglobin A1c (03/20/2017) Only the most recent of 2 results within the time period is included. Specimen Blood Narrative Performed At Performing Organization Address City/State/Zipcode Phone Number OTHER (EXTERNAL) * XR spine lumbar 2 or 3 views (03/15/2017) Narrative Performed At * Drug screen, urine, comprehensive (03/15/2017) Specimen Urine Narrative Performed At Performing Organization Address City/State/Zipcode Phone Number OTHER (EXTERNAL) after 02/08/2017 Insurance Payer Benefit Subscriber ID Type Phone Address Plan / Group MEDICAID - MEDICAID [facility] xxxxxxxxx Medicaid CARE COMM STAR Contracted PLAN
--- OUTSIDE RECORDS SUMMARY | 2018-02-09 01:20 | XMS REPORT | Clinical Summary ---
Author Author Eliel Yazidi Organization [facility] Address Unknown Phone Unavailable Care Team Providers Care Sterile Supervisor Name Role Phone Asked, No Pcp PCP [...] tablet mouth 2 (two) times a day. 12/24/2017 Discontinued aspirin (ECOTRIN) 325 MG Take 325 mg 0 enteric coated tablet by mouth daily. 01/23/2018 aspirin (ECOTRIN) 81 MG Take 1 tablet 30 tablet 0 enteric coated tablet (81 mg total) 8 by mouth daily for 30 days. 12/31/2017 clindamycin (CLEOCIN HCL) Take 1 [...] LEFT HEART CATH LV GRAM WITH CORS [01571 (CPT)] 12/24/2017 Surgery Procedural Cardiology Hawa Russell MD Bavare, Arusha Amod, MD Yerramadha, Muralidhar Reddy, MD Chest pain, unspecified type (Primary Dx); Cutaneous abscess of abdominal wall; Precordial pain; Bilateral swelling of feet 12/22/2017 Emergency General Internal Medicine - 12/24/2017 after 02/08/2017 Family History Medical History Relation [...] Taken Vital Sign Reading 12/24/2017 1:52 PM CUSTOMS OFFICER Blood Pressure 133/62 12/24/2017 1:52 PM CUSTOMS OFFICER Pulse 76 12/24/2017 11:24 AM CUSTOMS OFFICER Temperature 36.8 C (98.3 F) 12/24/2017 11:24 AM CUSTOMS OFFICER Respiratory Rate 18 12/24/2017 11:24 AM CUSTOMS OFFICER Oxygen Saturation 97% - Inhaled Oxygen - Concentration 12/22/2017 3:31 AM CUSTOMS OFFICER Weight 186 kg (410 lb) 12/22/2017 3:31 AM CUSTOMS OFFICER Height 188 cm (6' 2") 12/22/2017 3:31 AM CUSTOMS OFFICER Body Mass Index 52.64 Plan of Treatment Health Maintenance Due Date Last Done Comments INFLUENZA VACCINE 09/18/2017 Implants Device Identifier Shelf Expiration Date Model / Serial / Lot Implanted Type Area Manufactur er 08/17/2018 [id number] / / [id number] Device Vasclr Clsr Vasoactive Cardiovasc Right: Groin Intstnl Peptd 6fr Angio-Seal - ular [id number] Implants Implanted: Qty: 1 on 12/24/2017 by Farzad Santos MD . Procedures Comments Procedure Name Priority Date/Time Associated Diagnosis CV LEFT HEART CATH LV Routine 12/24/2017 GRAM WITH CORS 10:16 AM CUSTOMS OFFICER ECG 12-LEAD Routine 12/24/2017 7:03 AM CUSTOMS OFFICER ESTIMATED GFR Routine 12/24/2017 5:00 AM CUSTOMS OFFICER HC COMPLETE BLD COUNT Routine 12/24/2017 W/AUTO DIFF 5:00 AM CUSTOMS OFFICER BASIC METABOLIC PANEL Routine 12/24/2017 5:00 AM CUSTOMS OFFICER TYPE AND SCREEN Routine 12/24/2017 5:00 AM CUSTOMS OFFICER PARTIAL THROMBOPLASTIN Routine 12/24/2017 TIME (PTT) 5:00 AM CUSTOMS OFFICER PROTHROMBIN TIME WITH INR Routine 12/24/2017 5:00 AM CUSTOMS OFFICER TROPONIN Timed 12/23/2017 6:57 PM CUSTOMS OFFICER NM MYOCARDIAL PERFUSION Routine 12/23/2017 STRESS ONLY 2:52 PM CUSTOMS OFFICER CV STRESS TEST NUCLEAR Routine 12/23/2017 CARDIO 2:52 PM CUSTOMS OFFICER TROPONIN Timed 12/23/2017 1:57 PM CUSTOMS OFFICER ECHOCARDIOGRAM 2D Routine 12/22/2017 COMPLETE W MMODE SPECTRAL 6:32 PM CUSTOMS OFFICER COLOR DOPPLER ([id number]) TROPONIN Timed 12/22/2017 10:58 AM CUSTOMS OFFICER TROPONIN Timed 12/22/2017 6:[address] ANGIOGRAM PE CHEST STAT 12/22/2017 5:48 AM CUSTOMS OFFICER ECG 12-LEAD STAT 12/22/2017 4:28 AM CUSTOMS OFFICER XR CHEST 1 VW PORTABLE STAT 12/22/2017 3:52 AM CUSTOMS OFFICER ESTIMATED GFR STAT 12/22/2017 3:36 AM CUSTOMS OFFICER B NATRIURETIC PEPTIDE STAT 12/22/2017 3:36 AM CUSTOMS OFFICER TROPONIN STAT 12/22/2017 3:36 AM CUSTOMS OFFICER LIPASE LEVEL STAT 12/22/2017 3:36 AM CUSTOMS OFFICER HEPATIC FUNCTION PANEL STAT 12/22/2017 3:36 AM CUSTOMS OFFICER BASIC METABOLIC PANEL STAT 12/22/2017 3:36 AM CUSTOMS OFFICER HC COMPLETE BLD COUNT STAT 12/22/2017 W/AUTO DIFF 3:36 AM CUSTOMS OFFICER ECG ED PRELIMINARY Routine 12/22/2017 INTERPRETATION 3:28 AM CUSTOMS OFFICER after 02/08/2017 Results * Cv brine room laborer procedure (12/24/2017 10:16 AM CUSTOMS OFFICER) Narrative Performed At [facility] Farzad Santos MD Physician Signed CardiologyBrief Op Note Date of Service: 12/24/2017 8:53 AM Case Time: 12/24/2017 8:53 AM Surgeon: Farzad Santos MD Procedure: CV LEFT HEART CATH LV GRAM WITH CORS Location: [facility] Boilers Inspector Invasive Location []Hide copied text []Hover for attribution information Cardiac Catheterization Operative Note Lui Lopez,[id number] y.o. 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 Item Serial No. Intermodal Customer Service Lot No. LRB No. Used Action DEVICE VASCLR CLSR VASOACTIVE INTSTNL PEPTD 6FR ANGIO-SEAL - [id number] Cardiovascular Implants DEVICE VASCLR CLSR VASOACTIVE INTSTNL PEPTD 6FR ANGIO-SEAL [id number] Right 1 Implanted Impression: Normal coronaries Elevated LVEDP Farzad Santos MD Date: 12/24/2017Time: 10:06 AM Performing Organization Address [facility] Phone Number [facility] [address] [place] [address] * ECG 12 lead (12/24/2017 7:03 AM CUSTOMS OFFICER) Only the most recent of 2 results within the time period is included. Ventricular rate 71 [facility] Atrial rate 71 [facility] MD interval 172 [facility] QRSD interval 92 [facility] QT interval 438 [facility] QTC interval 475 [facility] P axis 1 68 [facility] QRS axis 1 26 [facility] T wave axis 65 [facility] EKG impression Normal sinus rhythm-Normal [facility] ECG-In automated comparison with ECG of 22-DEC-2017 04:28,-Vent. rate has decreased BY50 BPM-ST no longer depressed in Anterolateral leads-Nonspecific T wave abnormality no longer evident in Lateral leads- Performing Organization Address [facility] Phone Number [facility] [address] [place] [address] * Estimated GFR (12/24/2017 5:00 AM CUSTOMS OFFICER) Only the most recent of 2 results within the time period is included. Estimated GFR 65 mL/min/1.73 m2 [facility] DEPARTMENT OF Comment: PATHOLOGY AND CatergoryUnitsInte GENOMIC MEDICINE rpretation G1 >=90 Normal or high G2 60-89Mildly decreased Y6v28-68 Mildly to moderately decreased G4s92-48 Moderately to severely decreased G4 15-29Severely decreased G5 <15Kidney failure The eGFR was calculated using the Chronic Kidney Disease Epidemiology Collaboration (CKD-EPI) equation. Interpretation is based on recommendations of the National Kidney Foundation-Kidney Disease Outcomes Quality Initiative (NKF-KDOQI) published in 2014. Specimen Plasma specimen Performing Organization Address [facility] Phone Number [facility] [place] [address] PATHOLOGY AND [facility] * Partial thromboplastin time, activated (12/24/2017 5:00 AM CUSTOMS OFFICER) PTT 42.1 (H) 23.0 - 36.0 sec [facility] DEPARTMENT OF Comment: PATHOLOGY AND PTT therapeutic range for GENOMIC MEDICINE unfractionated heparin is 61.0-112.0 seconds which corresponds to Anti-Xa 0.3-0.7 U/ml. Specimen Blood Performing Organization Address [facility] Phone Number [address] [place] [address] PATHOLOGY [facility] * Prothrombin time with INR (12/24/2017 5:00 AM CUSTOMS OFFICER) Prothrombin time 12.9 11.5 - 14.5 sec [facility] DEPARTMENT OF PATHOLOGY AND GENOMIC MEDICINE INR 1.0 [facility] DEPARTMENT OF Comment: PATHOLOGY AND The International Normalized [facility] Ratio (INR) is a therapeutic monitoring tool for patients who are stable on oral anticoagulant therapy. An INR of 2.0-3.0 is suggested for deep vein thrombosis/pulmonary embolism. Specimen Blood Performing Organization Address City/[facility] Phone Number [address] [place] [address] PATHOLOGY AND [facility] * CBC with platelet and differential (12/24/2017 5:00 AM CUSTOMS OFFICER) Only the most recent of 2 results within the time period is included. WBC 5.75 4.50 - 11.00 k/uL [facility] DEPARTMENT OF PATHOLOGY AND GENOMIC MEDICINE RBC 4.44 4.40 - 6.00 m/uL [facility] DEPARTMENT OF PATHOLOGY AND GENOMIC MEDICINE HGB 13.7 (L) 14.0 - 18.0 g/dL [facility] DEPARTMENT OF PATHOLOGY AND GENOMIC MEDICINE HCT 41.1 41.0 - 51.0 % [facility] DEPARTMENT OF PATHOLOGY AND GENOMIC MEDICINE MCV 92.6 82.0 - 100.0 fL [facility] DEPARTMENT OF PATHOLOGY AND GENOMIC MEDICINE MCH 30.9 27.0 - 34.0 pg [facility] DEPARTMENT OF PATHOLOGY AND GENOMIC MEDICINE MCHC 33.3 31.0 - 37.0 g/dL [facility] DEPARTMENT OF PATHOLOGY AND GENOMIC MEDICINE RDW - SD 45.7 37.0 - 55.0 fL [facility] DEPARTMENT OF PATHOLOGY AND GENOMIC MEDICINE MPV 10.6 8.8 - 13.2 fL [facility] DEPARTMENT OF PATHOLOGY AND GENOMIC MEDICINE Platelet count 193 150 - 400 k/uL [facility] DEPARTMENT OF PATHOLOGY AND GENOMIC MEDICINE Nucleated RBC 0.00 /100 WBC [facility] DEPARTMENT OF PATHOLOGY AND GENOMIC MEDICINE Neutrophils 51.0 39.0 - 69.0 % [facility] DEPARTMENT OF PATHOLOGY AND GENOMIC MEDICINE Lymphocytes 37.2 25.0 - 45.0 % [facility] DEPARTMENT OF PATHOLOGY AND GENOMIC MEDICINE Monocytes 8.2 0.0 - 10.0 % [facility] DEPARTMENT OF PATHOLOGY AND GENOMIC MEDICINE Eosinophils 2.4 0.0 - 5.0 % [facility] DEPARTMENT OF PATHOLOGY AND GENOMIC MEDICINE Basophils 0.5 0.0 - 1.0 % [facility] DEPARTMENT OF PATHOLOGY AND GENOMIC MEDICINE Specimen Blood Performing Organization Address City/[facility] Phone Number [address] [place] [address] PATHOLOGY AND GENOMIC MEDICINE * Type and screen (12/24/2017 5:00 AM CUSTOMS OFFICER) ABO grouping O [facility] DEPARTMENT OF PATHOLOGY AND GENOMIC MEDICINE Rh type NEG [facility] OF PATHOLOGY AND GENOMIC MEDICINE Antibody screen NEG [facility] OF PATHOLOGY AND GENOMIC MEDICINE Specimen Blood Performing Organization Address City/[facility] Phone Number [address] [place] [address] PATHOLOGY [facility] * Basic metabolic panel (12/24/2017 5:00 AM CUSTOMS OFFICER) Only the most recent of 2 results within the time period is included. Sodium 143 135 - 148 mEq/L [facility] DEPARTMENT OF PATHOLOGY AND GENOMIC MEDICINE Potassium 4.1 3.5 - 5.0 mEq/L [facility] DEPARTMENT OF PATHOLOGY AND GENOMIC MEDICINE Chloride 101 98 - 112 mEq/L [facility] DEPARTMENT OF PATHOLOGY AND GENOMIC MEDICINE CO2 30 24 - 31 mEq/L [facility] DEPARTMENT OF PATHOLOGY AND GENOMIC MEDICINE Anion gap 12@ANIO 7 - 15 mEq/L [facility] DEPARTMENT OF PATHOLOGY AND GENOMIC MEDICINE BUN 18 6 - 20 mg/dL [facility] DEPARTMENT OF PATHOLOGY AND GENOMIC MEDICINE Creatinine 1.30 (H) 0.70 - 1.20 mg/dL [facility] DEPARTMENT OF PATHOLOGY AND GENOMIC MEDICINE Glucose 161 (H) 65 - 99 mg/dL [facility] DEPARTMENT OF PATHOLOGY AND GENOMIC MEDICINE Calcium 9.9 8.3 - 10.2 mg/dL [facility] DEPARTMENT OF PATHOLOGY AND GENOMIC MEDICINE Specimen Plasma specimen Performing Organization Address City/[facility] Phone Number [facility] [address] [facility] [address] [place] [id number] PATHOLOGY AND GENOMIC MEDICINE * Troponin (12/23/2017 6:57 PM CUSTOMS OFFICER) Only the most recent of 5 results within the time period is included. Troponin <0.300 0.000 - 0.300 ng/mL [facility] DEPARTMENT OF Comment: PATHOLOGY AND 0.30 - 1.49 GENOMIC MEDICINE ng/mlMay indicate increased risk of acute coronary syndrome. >=1.5 ng/ml Consistent with acute myocardial infarction. The diagnostic value of a single normal or non-diagnostic result is questionable.Serial samples at 2-6 hour intervals are required to rule out acute myocardial injury. Specimen Plasma specimen Performing Organization Address [facility] Phone Number [address] [place] [phone] PATHOLOGY AND GENOMIC MEDICINE * Cv stress test (12/23/2017 2:52 PM CUSTOMS OFFICER) Resting BP [facility] Protocol Name [facility]STA H [facility]USE Time in Exercise Phase 00:03:16 [facility] Max Systolic BP 146 [facility] Max Diastolic BP 86 [facility] Max Heart Rate 106 [facility] Max Predicted Heart Rate 173 [facility] Test Indication [facility] Arrhy During [...] of this Stress ECG report.-Electronically Signed By Tom LOGAN, Farzad ([id number]), international editorial producer Merline Plamer ([id number]) on 12/24/2017 10:25:10 AM Performing Organization Address City/[facility]/Zipcode Phone Number [facility] [address] [place] [address] * Nm myocardial perfusion (12/23/2017 2:52 PM CUSTOMS OFFICER) Target HR 173.00 bpm [facility] Resting [...] and proceed with cath. Performing Organization Address City/State/Zipcode Phone Number [facility] [address] [place] [address] * Echocardiogram complete w contrast and 3D if needed (12/22/2017 6:32 PM CUSTOMS OFFICER) Velocity Ratio (V1/V2) 0.99 m/s [facility] [...] LV EF,BP 54.62 % [facility] Jackson Alexander,d A2C 8.13 cm [facility] Jackson Alexander,d A4C 8.20 cm [facility] Jackson Alexander,s A2C 6.33 cm [facility] Jackson Alexander,s A4C 6.75 cm [facility] LV SV,A2C [...] 4.73 m/s2 [facility] Narrative Performed At [facility] Left ventricular systolic function is normal. Left Ventricular ejection fraction is 55 - 60%. No pericardial effusion Mild pulmonary hypertension present. Performing Organization Address City/State/Zipcode Phone Number [facility] [address] [place] [address] * CT Angiogram Pe Chest (12/22/2017 5:48 AM CUSTOMS OFFICER) Narrative Performed At EXAMINATION: CT ANGIOGRAM PE [...] enlarged. This is incompletely included in the [id number]. 9. Other Findings: None SUMMARY: 1. No CT scan evidence of acute pulmonary embolus. 2.Interstitial pulmonary congestion and mild pulmonary edema. No acute infiltrates. [id number] Procedure Note Interface, Radiology Results Incoming - 12/22/2017 6:02 AM CUSTOMS OFFICER EXAMINATION: CT ANGIOGRAM PE CHEST CLINICAL HISTORY: [...] enlarged. This is incompletely included in the [id number]. 9. Other Findings: None SUMMARY: 1. No CT scan evidence of acute pulmonary embolus. 2. Interstitial pulmonary congestion and mild pulmonary edema. No acute infiltrates. [id number] Performing Organization Address [facility] Phone Number [facility] [address] [place] [address] * XR Chest 1 Vw Portable (12/22/2017 3:52 AM CUSTOMS OFFICER) Narrative Performed At EXAMINATION:XR CHEST 1 VW PORTABLE RADIANT CLINICAL HISTORY:chest pain COMPARISON:04/23/2016 IMPRESSION: Cardiac silhouette is normal. Mild to moderate vascular congestion/edema. No effusions or pneumothorax. No acute osseous abnormalities. [id number] Procedure Note Hm Interface, Radiology Results Incoming - 12/22/2017 4:16 AM CUSTOMS OFFICER EXAMINATION: XR CHEST 1 VW PORTABLE CLINICAL HISTORY: chest pain COMPARISON: 04/23/2016 IMPRESSION: Cardiac silhouette is normal. Mild to moderate vascular congestion/edema. No effusions or pneumothorax. No acute osseous abnormalities. [id number] Performing Organization Address [facility] Phone Number [facility] [address] [place] [address] * B natriuretic peptide (12/22/2017 3:36 AM CUSTOMS OFFICER) BNP 17 0 - 100 pg/mL [facility] DEPARTMENT OF PATHOLOGY AND GENOMIC MEDICINE Specimen Blood Performing Organization Address [facility] Phone Number [address] [place] [address] PATHOLOGY AND GENOMIC MEDICINE * Lipase level (12/22/2017 3:36 AM CUSTOMS OFFICER) Lipase 30 13 - 60 U/L [facility] DEPARTMENT OF PATHOLOGY AND GENOMIC MEDICINE Specimen Plasma specimen Performing Organization Address [facility]/Zipcode Phone Number [facility] [address] [place] [address] PATHOLOGY AND GENOMIC MEDICINE * Hepatic function panel (12/22/2017 3:36 AM CUSTOMS OFFICER) Albumin 4.2 3.5 - 5.0 g/dL [facility] DEPARTMENT OF PATHOLOGY AND GENOMIC MEDICINE Total bilirubin 0.3 0.0 - 1.2 mg/dL [facility] DEPARTMENT OF PATHOLOGY AND GENOMIC MEDICINE Bilirubin direct <0.1 0.0 - 0.3 mg/dL [facility] DEPARTMENT OF PATHOLOGY AND GENOMIC MEDICINE Alkaline phosphatase 86 40 - 129 U/L [facility] DEPARTMENT OF PATHOLOGY AND GENOMIC MEDICINE Protein 7.2 6.3 - 8.3 g/dL [facility] DEPARTMENT OF Comment: PATHOLOGY AND [place] GENOMIC MEDICINE 4.6-7.0 g/dL 1 week 4.4-7.6 g/dL 7 months-1year 5.1-7.3 g/dL 1-2 years5.6-7 .5 g/dL >3 years6.0-8 .0 g/dL 18-150 6.3-8.3 g/dL ALT 24 5 - 50 U/L [facility] DEPARTMENT OF PATHOLOGY AND GENOMIC MEDICINE AST 35 10 - 50 U/L [facility] DEPARTMENT OF PATHOLOGY AND GENOMIC MEDICINE Specimen Plasma specimen Performing Organization Address [facility] Phone Number [place] [address] [place] [address] PATHOLOGY AND GENOMIC MEDICINE * ECG ED Preliminary Interpretation - NOT AN ORDER (12/22/2017 3:28 AM CUSTOMS OFFICER) Narrative Performed At Hawa Russell MD 12/23/2017 11:06 AM ECG ED Preliminary Interpretation - Not an Order Performed by: HAWA RUSSELL Authorized by: HAWA RUSSELL ECG reviewed by ED Physician in the absence of a genetics physician: yes Interpretation: Interpretation: abnormal Rate: ECG rate:121 ECG rate assessment: tachycardic Rhythm: Rhythm: sinus tachycardia Ectopy: Ectopy: none QRS: QRS axis:Normal Conduction: Conduction: normal ST segments: ST segments:Abnormal Depression:V3, V2 and V4 T waves: T waves: normal after 02/08/2017 Insurance Payer Benefit Subscriber ID Type Phone Address Plan / Group [employer] MEDICAID [employer] xxxxxxxxx HMO COMM STAR+ VIMAL [address] (Home) [place] [address] Advance Directives Patient has advance care planning documents, and code status on file. For more i nformation, please contact: Eliel Garcia [address] [place] [address] Date Inactivated Comments Code Status Date Activated 12/24/2017 7:48 PM Full Code 12/22/2017 10:39 AM Code Status decision reached by: Patient 01/24/2016 4:50 PM Full Code 01/22/2016 3:07 AM Code Status decision reached by: Patient
[2018-02-09] MEDS ORDERED: ASPIRIN 81 MG CHEW TAB PO ONE ×2 (01:30→14:30)
[2018-02-09] MEDS ORDERED: SODIUM CHLORIDE 0.9% 1000ML 1,000 ML IV SCH (01:45)
--- NOTE | 2018-02-09 01:45 | NUR ---
Patient evaluated, not oriented to time. Unknown baseline mental status. Noted to be tachycardic- will treat as possible sepsis at this time. Fluctuating oxygen saturation likely secondary to obesity hypoventilation syndrome. Spesis protocol initiated.
[2018-02-09] MEDS ORDERED: VANCOMYCIN 1GM/NS 250 ML 250 ML IV STA (01:46)
[2018-02-09] MEDS ORDERED: CEFEPIME HCL 1 GM VIAL IV SCH (02:00)
[2018-02-09] MEDS ORDERED: SODIUM CHLORIDE 0.9% 1000ML 1,000 ML IV ONE (02:00)
[2018-02-09 02:11] LABS: BASOPHILS % 0.3 % (0.0-1.0); EOSINOPHILS # (AUTO) 0.1 (0.0-0.4); EOSINOPHILS % 1.7 % (0.0-6.0); HEMATOCRIT 39.9 % (38.2-49.6); HEMOGLOBIN 13.7 g/dL (14.0-18.0); LYMPHOCYTES # (AUTO) 2.3 (1.0-3.2); LYMPHOCYTES % 34.9 % (18.0-39.1); MEAN CORPUSCULAR HEMOGLOBIN 31.1 pg (28-32); MEAN CORPUSCULAR HGB CONC 34.3 g/dL (31-35); MEAN CORPUSCULAR VOLUME 90.5 fL (81-99); MONOCYTES # (AUTO) 0.4 (0.2-0.8); MONOCYTES % 5.7 % (4.4-11.3); NEUTROPHILS # (AUTO) 3.8 (2.1-6.9); NEUTROPHILS % 56.9 % (38.7-80.0); PLATELET COUNT 208 x10e3/uL (140-360); RED BLOOD COUNT 4.41 x10e6/uL (4.3-5.7); RED CELL DISTRIBUTION WIDTH 13.7 % (11.7-14.4)
[2018-02-09 02:31] LABS: ALBUMIN 4.1 g/dL (3.5-5.0); ALBUMIN/GLOBULIN RATIO 1.5 (0.8-2.0); ANION GAP 17.4 mmol/L (8-16); CALCIUM 8.9 mg/dL (8.4-10.2); CREATININE, SERUM 1.51 mg/dL (0.72-1.25)
[2018-02-09 02:38] LABS: CREATINE KINASE MB 3.3 ng/mL (0-5.0)
[2018-02-09 02:58] LABS: POTASSIUM 2.4 mmol/L (3.5-5.1)
[2018-02-09] MEDS ORDERED: POTASSIUM CHLORIDE 20 MEQ TAB CR PO STA (03:00)
[2018-02-09] MEDS ORDERED: POTASSIUM CHLORIDE 10MEQ/100ML 100 ML IV ONE (03:00)
[2018-02-09] MEDS ORDERED: POTASSIUM CHLORIDE 20 MEQ TAB CR PO ONE (03:18)
[2018-02-09] MEDS ORDERED: POTASSIUM CHLORIDE 10MEQ/100ML 100 ML ONE (03:18)
[2018-02-09] MEDS ORDERED: CEFEPIME 1GM/NS 0.9% 50 ML 50 ML IV ONE (03:19)
[2018-02-09 03:51] LABS: CLARITY,URINE CLEAR (CLEAR); COLOR,URINE YELLOW (YELLOW); KETONES,URINE NEGATIVE (NEGATIVE); LEUKOCYTE ESTERASE ,URINE 1+ (NEGATIVE); NITRITE,URINE NEGATIVE (NEGATIVE); PHENCYCLIDINE SCREEN,URINE NEGATIVE (NEGATIVE); PROTEIN,URINE DIPSTICK NEGATIVE (NEGATIVE)
[2018-02-09 03:52] LABS: AMPHETAMINES SCREEN,URINE NEGATIVE (NEGATIVE); BENZODIAZEPINES SCREEN,URINE NEGATIVE (NEGATIVE)
[2018-02-09 03:53] LABS: BACTERIA,URINE RARE /HPF; BILIRUBIN,URINE NEGATIVE (NEGATIVE); EPITHELIAL CELLS,URINE RARE /LPF; RBC,URINE 0-5 /HPF (0-5); URINE UROBILINOGEN 0.2 mg/dL (0.2 - 1)
--- NOTE | 2018-02-09 04:21 | NUR ---
PATIENTS EMAR RECORDS DO NOT REFLECT ACTUAL TIME MEDICATIONS WERE ADMINISTERED. IT DEPARTMENT OPENED UP A CRITICAL TICKET IN REGARDS TO DIFFICULTY ACCESSING PATIENT MAR. ER CHARGE AND NON DESTRUCTIVE TESTING SUPERVISOR INFORMED, PLEASE REFLECT TO SOPATecXIS REMOVAL TIMES FOR REAL TIME MEDICATION ADMINSTRATION TIMES.
--- NOTE | 2018-02-09 04:41 | Diagnostic Imaging Report ---
CHEST SINGLE (PORTABLE), 02/09/2018 1:46 AM Technique: CHEST SINGLE (PORTABLE) Comparison: 01/02/2018 Clinical history: Shortness of breath Findings: See Impression Impression: Limited by portable technique and motion. 1. Lines/Tubes: Stable median sternotomy wires and hardware 2. Stable cardiomediastinal silhouette. 3. Limited evaluation. Perihilar opacities may reflect central vascular congestion and/or atelectasis 4. No effusion or pneumothorax. Signed by: Dr Tanvi Pritchett MD on 02/09/2018 4:38 AM
--- NOTE | 2018-02-09 04:52 | Diagnostic Imaging Report ---
EXAM: CT CHEST W DATE: 02/09/2018 1:46 AM INDICATION: Altered mental status COMPARISON: 04/19/2017 TECHNIQUE: Multidetector CT scanning of the chest was performed. Coronal and sagittal multiplanar reformations were obtained. CT low dose techniques were utilized, as applicable. IV Contrast: 100 ml Isovue 370/300, 70 mL administered FINDINGS: Extensive noise related to large body habitus and suboptimal contrast attenuation within the main pulmonary artery (124 HU) precludes adequate assessment of the pulmonary arteries for embolism. No large central main filling defect. LUNGS AND PLEURA: Central airways are patent. Stable right greater than left perihilar opacity and right upper/middle lobe traction bronchiectasis from prior, likely atelectasis/scarring. No effusions or pneumothorax. HEART, MEDIASTINUM, VESSELS: Normal heart size, aortic and main pulmonary artery caliber. No pericardial effusion. Stable prominent mediastinal nodes. UPPER ABDOMEN: Administered high density fluid within the stomach and lower esophagus. MUSCULOSKELETAL: Changes status post median sternotomy with incomplete union superiorly. Partially visualized ACDF. IMPRESSION: 1. Severely limited assessment related to body habitus and suboptimal attenuation in the pulmonary arteries. No large central embolism. 2. Otherwise stable from prior. No consolidation. Signed by: Dr Tanvi Pritchett MD on 02/09/2018 4:49 AM
--- NOTE | 2018-02-09 05:10 | Diagnostic Imaging Report ---
EXAMINATION: Head CT without contrast. HISTORY:Sharp right-sided headache. COMPARISON:CT brain from 05/26/2017. TECHNIQUE: Multidetector axial images were obtained from the foramen magnum to the vertex without contrast. The images were reconstructed using brain and bone algorithms. Thin section brain images were reformatted into coronal and sagittal planes. Dose modulation, iterative reconstruction, and/or weight based adjustment of the mA/kV was utilized to reduce the radiation dose to as low as reasonably achievable. Intravenous contrast: None IMAGE QUALITY: Acceptable. FINDINGS: Skull/scalp: No lytic or blastic. lesions. No surgical changes. Parenchyma: No abnormal density. No acute hemorrhage, mass or acute major vascular territorial infarct. Arteries: No density suggestive of thrombosis. Dural sinuses: No abnormal density suggestive of thrombosis. Ventricles: No hydrocephalus or displacement. Extra-axial spaces: No abnormal density. Brain volume: Unchanged moderate cerebellar volume loss. Craniocervical junction: No mass, Chiari malformation, or basilar invagination. Sella: No mass. Paranasal/mastoid sinuses: Imaged portions unremarkable. IMPRESSION: No acute intracranial abnormality. Unchanged nonspecific moderate cerebellar volume loss. Signed by: Dr. Dian Browning M.D. on 02/09/2018 5:07 AM
--- NOTE | 2018-02-09 05:32 | NUR ---
IV POTASSIUM AND PO POTASSIUM GIVEN TODAY AT 0318. ISSUE WITH [facility] EMAR RESOLVED
[2018-02-09] MEDS ORDERED: IOPAMIDOL 370 MG/ML 200 ML INFUS..BTL INJ ONE (06:08)
[2018-02-09] MEDS ORDERED: SODIUM CHLORIDE 0.9% 50ML 50 ML ONE (06:08)
--- NOTE | 2018-02-09 06:45 | NUR ---
Patient transferred from ER via stretcher. Patient c/o weakness to BLE, multiple staff assisted to transfer patient from stretcher to bed. A&O3, respirations even & unlabored, no distress noted. Tele # [phone] IV to R AC 18g SL. Patient does c/o pain, unable to rate or state the location at this time. Call light within reach, bed alarm placed, & siderailsx2 raised.
[2018-02-09] MEDS ORDERED: METFORMIN HCL1000 MG PO (06:56)
[2018-02-09] MEDS ORDERED: ISOSORBIDE MONONITRATE PO (06:56)
[2018-02-09] MEDS ORDERED: RISPERDAL1 MG PO (06:56)
[2018-02-09] MEDS ORDERED: MOBIC15 MG PO (06:56)
[2018-02-09] MEDS ORDERED: TRICOR145 MG PO (06:56)
[2018-02-09] MEDS ORDERED: RANEXA500 MG PO (06:56)
[2018-02-09] MEDS ORDERED: [UNRECOGNIZED DRUG - OTHER] PO (06:56)
--- NOTE | 2018-02-09 07:58 | NUR ---
ASSESSMENT COMPLETE NO DISTRESS NOTED,UPDATED ON POC VOICED UNDERSTANDING, DENIES PAIN AT THIS TIME, R AC 20G NO SS OF INFILTRATION NOTED, NO OTHER CO VOICED CALL LIGHT IN REACH WILL CONTINUE TO MONITOR
[2018-02-09] MEDS ORDERED: POTASSIUM CHLORIDE 20 MEQ TAB CR PO SCH (09:00)
[2018-02-09] MEDS: POTASSIUM CHLORIDE 20 MEQ TAB CR PO SCH (09:34)
[2018-02-09] MEDS ORDERED: LORAZEPAM 0.5 MG TAB PO PRN (09:45)
--- NOTE | 2018-02-09 10:56 | History and Physical ---
CHIEF COMPLAINT: Left side hemiparesis, both in upper and lower extremity. Baseline dysarthria with previous CVA. Atherosclerotic heart disease with previous bypass surgery approximately 3 year ago. Chest pain. Headaches. HISTORY OF PRESENT ILLNESS: Patient is a 47-year-old male, previous cerebral infarction diagnosis at [facility] where the patient resides. The patient came in with increase in headaches, visual changes, and left hemiparesis both upper and lower extremity, and difficulty walking. Prior to that, the patient was without any deficit per patient. Baseline, the patient had chronic obstructive pulmonary disease associated with recurrent acute exacerbation. He had hypertensive heart disease with previous bypass surgery. He had bypass and then 2 redo bypass, last was approximately 3 years ago. He also has posttraumatic stress disorder associated with schizoaffective disorder, bipolar type. Baseline, the patient has dysarthria, most likely from his previous stroke. He is morbidly obese at baseline. The patient will go in the middle of the night with increasing headaches and visual changes and increasing left-sided weakness. The patient also complained of left-sided chest pain as well. Chest pain is pressure like radiating to his left side, both in the left facial area and then his left upper extremity as well. The patient is currently stable. He does not have any vomiting. He does have some nausea previously. The patient also has history of DVT and previous IVC filter placement years ago. Currently, the patient is on Plavix, Xarelto, fully anticoagulated. PAST MEDICAL HISTORY: CVA, COPD, hypertensive heart disease, coronary artery disease with previous bypass surgery, congestive heart failure, posttraumatic stress disorder, schizoaffective disorder bipolar type, seizure disorder, hypertension, major depression, osteoarthritis, dyslipidemia, anticoagulant therapy from previous DVT, epilepsy, panic disorder, and psycho-somatoform disorder. PAST SURGICAL HISTORY: Left nephrectomy, appendectomy, coronary artery bypass surgery, neck surgery, lower back surgery, history of spinal stenosis with lumbar spinal surgery. SOCIAL HISTORY: The patient is a resident of [facility]. He does not smoke or use alcohol. ALLERGIES: AMPICILLIN, GABAPENTIN, REGLAN, MORPHINE, AND ONDANSETRON. HOME MEDICATIONS: Duloxetine, furosemide, Imdur, potassium, Keppra, Lamictal, Lyrica, metformin, metoprolol, Mobic, Protonix, Plavix, Ranexa, Risperdal, TriCor, Xarelto, Lipitor, doxepin, and trazodone. P.r.n. medications hyoscyamine, Soma, clonazepam, Flexeril, and lactulose. REVIEW OF SYSTEMS: Left-sided chest pain, headaches, visual changes, left-sided weakness, and nausea. PHYSICAL EXAMINATION GENERAL: The patient is obese. He is not in any distress. He has dysarthria baseline. VITAL SIGNS: Temperature is 98, blood pressure 127/57, pulse rate is 95, and respirations 18. HEENT: Normocephalic, atraumatic, anicteric. NECK: Supple grossly. PULMONARY: Diminished breath sound without any wheezing. CARDIOVASCULAR: Regular rate and rhythm. ABDOMEN: Morbidly obese. Scar in left flank area, sternal scar. Nontender. Non-distention. EXTREMITIES: No gross cyanosis or edema. NEUROLOGIC: Left hemiparesis. Dysarthria. LABORATORY: Sodium 137, potassium 2.4, chloride 99, bicarb 23, BUN 17, creatinine 1.5. Glucose 189. WBC 6.6. Hemoglobin 13.7. Hematocrit 40. Platelets 208. IMPRESSION 1. Left side hemiparesis. The patient is stating that this is new. I am not sure because he does have history of CVA previously. He is on multiple medication. 2. Chest pain could be unstable angina, not clear given the patient's dysarthria, but he does have sign and symptoms of consisting with coronary artery disease where he did have bypass surgery previously with a sternal scar as evident. 3. Morbidly obese, possible obstructive sleep apnea, and pulmonary hypertension. With baseline, most likely diastolic dysfunction congestive heart failure. 4. Low potassium, we will replace. 5. Multiple medical chronic problems including epilepsy, PTSD, major depression, panic disorder, chronic kidney disease, hypertension, dyslipidemia, chronic neck and lower back pain with previous surgery. PLAN: Echocardiogram. Consultation with Dr. Scott. Consultation with Dr. Agustin, Neurology. Resume home medications. PT/OT. MRI of the brain without contrast if able to do. He does have titanium plate in his neck and his lower back area. The patient is on Xarelto. We will resume Xarelto, Plavix, and other medications as well including his epilepsy medication. Job#: [id number] GREGORIO
[2018-02-09] MEDS: HYDROCODONE/APAP 10MG-325MG TAB PO PRN (13:47)
[2018-02-09] MEDS: CEFEPIME 1GM/NS 0.9% 50 ML 50 ML IV SCH (14:19)
[2018-02-09 15:58] LABS: ANION GAP 12.7 mmol/L (8-16); BLOOD UREA NITROGEN 14 mg/dL (7-26); BUN/CREATININE RATIO 12 (6-25); CALCIUM 8.5 mg/dL (8.4-10.2); CARBON DIOXIDE 25 mmol/L (22-29); CHLORIDE 103 mmol/L (98-107); CREATININE, SERUM 1.14 mg/dL (0.72-1.25); EST GLOMERULAR FILTRATION RATE > 60 ML/MIN (60-); GLUCOSE 142 mg/dL (74-118); POTASSIUM 3.7 mmol/L (3.5-5.1); SODIUM 137 mmol/L (136-145)
--- NOTE | 2018-02-09 16:00 | Consultation ---
DATE OF CONSULTATION: February 09, 2018 ATTENDING PHYSICIAN: Dr. Del Sanders. Thank you so much for asking to see this nice man in consultation. Mr. Lopez is a very complex and morbidly obese 47-year-old man, resident of [facility]. CHIEF COMPLAINT: Patient is a very poor historian, but finally does admit that he came to the hospital because he found he could not walk. HISTORY OF PRESENT ILLNESS: Patient is a very poor historian, but reports that he was previously walking and now finds that left side of his body is weak, left arm and left leg. PAST MEDICAL HISTORY: Very complex with coronary artery bypass graft surgery 2014. He report he is life flighted from [place] to [facility] in the [facility]. Evidently, he has had previous deep venous thrombosis and pulmonary embolus and IVC filter placement. Evidently, he has had previous cerebrovascular accident as well and some psychiatric illness called schizoaffective disorder, bipolar. MEDICATIONS: His medicines in the residential include; 1. Duloxetine 40 mg b.i.d. 2. Furosemide 40 mg b.i.d. 3. Isosorbide Imdur 30 mg daily. 4. Potassium 99 mg daily. 5. Keppra 500 mg twice daily. 6. Lamictal 25 mg twice a day. 7. Lyrica 100 mg twice daily. 8. Metformin 1000 mg twice daily. 9. Metoprolol 25 mg twice daily. 10. Meloxicam 15 mg daily. 11. Pantoprazole 20 mg daily. 12. Plavix 75 mg daily. 13. Ranolazine 500 mg twice a day. 14. Risperdal 0.5 mg b.i.d. 15. TriCor 145 mg daily. 16. Xarelto 20 mg daily. 17. Atorvastatin 40 mg daily. 18. Doxepin 100 mg each evening. 19. Trazodone 150 mg each evening. SOCIAL HISTORY: He does not smoke or drink. FAMILY HISTORY: He reports that his father of cancer. His mother has coronary artery disease. His sister is apparently healthy. PHYSICAL EXAMINATION GENERAL: At time shows a large morbidly obese man, reported 6 feet 2 inches tall and reported weight 430 pounds. He has multiple tattoos and very poor dentition. HEENT: Unremarkable. NECK: No jugular venous distention visible. No bruits. THORAX: There is healed midline sternotomy. HEART: Sounds S1, S2 equal. No murmurs. LUNGS: Relatively clear. ABDOMEN: Markedly protuberant. There is left lateral nephrectomy incision healed. EXTREMITIES: Trace pretibial edema. LABORATORY DATA: Current echocardiogram showed mild left ventricular hypertrophy and ejection fraction estimated 60% with mildly dilated left atrium. His carotid Doppler scan did not show any severe stenosis. One set of cardiac enzymes on the chart is negative. His creatinine is 1.5, potassium 2.4, glucose 189. ASSESSMENT 1. New left-sided weakness suggesting cerebrovascular accident. 2. Coronary artery disease, clinically stable with previous coronary artery bypass graft surgery. 3. Type 2 adult onset diabetes. 4. Mild renal insufficiency, status post nephrectomy. PLAN: In view of his size, we will need to use medical management alone and supportive care. Prognosis is guarded. Thank you for asking me to see him in consultation. Job#: [id number] CARY
[2018-02-09] MEDS: METOPROLOL TARTRATE 25 MG TAB PO SCH (17:00)
[2018-02-09] MEDS: RANOLAZINE 500 MG TABSR PO SCH (17:00)
[2018-02-09] MEDS ORDERED: DULOXETINE HCL 30 MG DELAYED RELEASE PO SCH (17:00)
[2018-02-09] MEDS: LEVETIRACETAM 500 MG TAB PO SCH (17:43)
[2018-02-09] MEDS: LAMOTRIGINE 25 MG TAB PO SCH (17:44)
[2018-02-09] MEDS: FUROSEMIDE 40 MG TAB PO SCH (17:44)
[2018-02-09] MEDS: RISPERIDONE 1 MG TAB PO SCH (17:45)
--- NOTE | 2018-02-09 19:30 | NUR ---
RECEIVED PATIENT IN BED. RESPONSIVE WITH SLURRING OF SPEECH AND WEAKNESS OF LEFT UPPER AND LOWER EXTREMITIES. CALL LIGHT WITHIN REACH AND INSTRUCTED TO USE IF ASSISTANCE IS NEEDED.
--- NOTE | 2018-02-09 19:35 | NUR ---
dr escobar paged re: pt unable to do MRI due to obesity. waiting for call back
[2018-02-09] MEDS: PREGABALIN 50 MG CAP PO SCH (20:00)
[2018-02-09] MEDS: TRAZODONE HCL 50 MG TAB PO SCH (21:16)
[2018-02-09] MEDS: DOXEPIN HCL 25 MG CAP PO SCH (21:16)
[2018-02-09] MEDS: ATORVASTATIN 20 MG TAB PO SCH (21:16)
[2018-02-09] MEDS: MIRTAZAPINE 15 MG TAB PO SCH (21:16)
[2018-02-10] VITALS: BP 96/52
[2018-02-10] MEDS: CEFEPIME 1GM/NS 0.9% 50 ML 50 ML IV SCH ×2 (03:04→14:57)
[2018-02-10 05:57] LABS: BASOPHILS % 0.4 % (0.0-1.0); EOSINOPHILS # (AUTO) 0.1 (0.0-0.4); HEMATOCRIT 37.8 % (38.2-49.6); HEMOGLOBIN 12.6 g/dL (14.0-18.0); LYMPHOCYTES # (AUTO) 1.5 (1.0-3.2); LYMPHOCYTES % 30.7 % (18.0-39.1); MEAN CORPUSCULAR HGB CONC 33.3 g/dL (31-35); MEAN CORPUSCULAR VOLUME 92.9 fL (81-99); MONOCYTES # (AUTO) 0.4 (0.2-0.8); MONOCYTES % 8.8 % (4.4-11.3); NEUTROPHILS # (AUTO) 2.9 (2.1-6.9); NEUTROPHILS % 57.5 % (38.7-80.0); PLATELET COUNT 180 x10e3/uL (140-360); RED BLOOD COUNT 4.07 x10e6/uL (4.3-5.7); RED CELL DISTRIBUTION WIDTH 13.8 % (11.7-14.4)
[2018-02-10 06:16] LABS: ANION GAP 13.3 mmol/L (8-16); BLOOD UREA NITROGEN 12 mg/dL (7-26); BUN/CREATININE RATIO 11 (6-25); CALCIUM 8.6 mg/dL (8.4-10.2); CARBON DIOXIDE 25 mmol/L (22-29); CHLORIDE 102 mmol/L (98-107); CREATINE KINASE 339 IU/L (30-200); EST GLOMERULAR FILTRATION RATE > 60 ML/MIN (60-); GLUCOSE 182 mg/dL (74-118); POTASSIUM 3.3 mmol/L (3.5-5.1); SODIUM 137 mmol/L (136-145)
--- NOTE | 2018-02-10 06:55 | NUR ---
REPORT GIVEN TO ONCOMING NURSE
[2018-02-10] MEDS: PANTOPRAZOLE SOD 40 MG TABEC PO SCH (08:29)
[2018-02-10] MEDS: PREGABALIN 50 MG CAP PO SCH ×2 (08:29→20:40)
[2018-02-10] MEDS: DULOXETINE HCL 20 MG DELAYED RELEASE PO SCH ×3 (08:30→18:41)
[2018-02-10] MEDS: LEVETIRACETAM 500 MG TAB PO SCH ×2 (08:30→18:41)
[2018-02-10] MEDS: POTASSIUM CHLORIDE 20 MEQ TAB CR PO SCH (08:30)
[2018-02-10] MEDS: FUROSEMIDE 40 MG TAB PO SCH ×2 (08:31→18:41)
[2018-02-10] MEDS: LAMOTRIGINE 25 MG TAB PO SCH ×2 (08:31→18:41)
[2018-02-10] MEDS: RANOLAZINE 500 MG TABSR PO SCH ×2 (08:35→18:41)
[2018-02-10] MEDS: RISPERIDONE 1 MG TAB PO SCH ×2 (08:36→08:46)
[2018-02-10] MEDS: RIVAROXABAN 20 MG TABLET PO SCH (08:37)
[2018-02-10] MEDS: ISOSORBIDE MONONITRATE 30 MG TAB CR PO SCH (08:37)
[2018-02-10] MEDS: FENOFIBRATE 145 MG TAB PO SCH (08:37)
[2018-02-10] MEDS: HYDROCODONE/APAP 10MG-325MG TAB PO PRN (08:38)
[2018-02-10] MEDS: METOPROLOL TARTRATE 25 MG TAB PO SCH ×2 (08:44→18:41)
[2018-02-10] MEDS: CLOPIDOGREL BISULFATE 75 MG TAB PO SCH (08:45)
[2018-02-10 09:01] VITALS: BP 115/56
--- NOTE | 2018-02-10 10:00 | NUR ---
Patient informed primary nurse his belongings bag was left in [facility]. I called [employer] @[phone] and spoke to Miguel who took report on missing belongings. 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 Patient notified.
[2018-02-10] MEDS ORDERED: ALBUTEROL/IPRATROPIUM 3 ML NEB NEB PRN (10:15)
[2018-02-10] MEDS: ALBUTEROL/IPRATROPIUM 3 ML NEB NEB SCH ×2 (10:15→19:27)
[2018-02-10] MEDS ORDERED: POTASSIUM CHLORIDE 10MEQ EA PO ONE (11:00)
[2018-02-10 12:00] VITALS: BP 124/59
[2018-02-10] MEDS ORDERED: VALPROATE SOD INJ 500 MG in SODIUM CHLORIDE 0.9% 100 ML 100 ML IV SCH (14:00)
[2018-02-10] MEDS: HYDROCORTISONE SOD SUCCINATE 250 MG VIAL IV SCH ×2 (15:00→20:40)
--- NOTE | 2018-02-10 16:00 | NUR ---
Handoff report given to nurse Bell verbalized understanding.
--- NOTE | 2018-02-10 16:38 | NUR ---
called [facility] spoke with nurse Feliciano to make patient's nurse aware 1500 medications not given due to patient's c/o of IV burning and hurting, and asked to speak with charge nurse.
--- NOTE | 2018-02-10 16:40 | NUR ---
PT RECEIVED FROM FROM MED [facility] 1, A&O X 4, DENIES PAIN NO S/S OF DISTRESS NOTED. ORIENTED TO ROOM, CALL LIGHT INPLACE
[2018-02-10] MEDS: VALPROATE SOD INJ 500 MG in SODIUM CHLORIDE 0.9% 100 ML 100 ML IV SCH ×2 (16:55→22:00)
--- NOTE | 2018-02-10 17:08 | Consultation ---
DATE OF CONSULTATION: February 10, 2018 NEUROLOGY CONSULT HISTORY OF PRESENT ILLNESS: Mr. Lopez is a 47-year-old right-hand dominant man with multiple vascular risk factors, admitted to [facility] on February 09, 2018, with symptoms suspicious for stroke. Mr. Lopez endorses a unilateral headache, which is described as follows: The pain is located over the right side of the head and does not radiate. The pain is described as sharp and is moderate to severe in intensity. Mr. Lopez endorses blurred vision affecting both eyes. However, he cannot provide additional details regarding a headache. Specifically, he cannot say whether or not there is photophobia, phonophobia, nausea, vomiting, or dizziness associated with the headaches. In addition to the above symptoms, the patient endorses mild dysarthria, moderate expressive aphasia, and left hemiparesis. All these symptoms began approximately 1 day ago and have occurred intermittently. At present, all of the above-described symptoms are present. Mr. Lopez does not report experiencing similar symptoms, including the severe unilateral headache, previously. He does report a prior history of transient ischemic attacks at the ages of 17 years, 22 years, and 26 years. According to the patient, he has never had a stroke. Due to the presence of the above-described symptoms, emergency medical services were contacted and Mr. Lopez was brought to the emergency center at [facility] for further evaluation. Upon arrival in the emergency center, the patient was afebrile with a blood pressure of 129/63 mmHg and a pulse 118 beats per minute. The patient's neurological examination in the emergency room was significant for disorientation and a decreased level of alertness. A CT of the brain without contrast was performed while Mr. Lopez was in the emergency room. This study did not reveal evidence of recent large territorial ischemia or hemorrhage. It should be noted there is no evidence of remote large territorial ischemia, hemorrhage, mass, or mass effect as well. Mr. Lopez was admitted to [facility] for further evaluation and treatment of his symptoms. REVIEW OF SYSTEMS: Blurred vision, dysarthria, aphasia, weakness of the left arm and leg, impairment of balance and gait, unilateral headache. Otherwise, the 12-point review of systems is negative. PAST MEDICAL HISTORY: Hypertension, hyperlipidemia, coronary artery disease, atrial fibrillation, chronic obstructive pulmonary disease, bipolar disorder, seizure disorder treated with Keppra, multiple prior transient ischemic attacks, non-Hodgkin's lymphoma. PAST SURGICAL HISTORY: Coronary artery bypass graft times 3, left nephrectomy, appendectomy, possible prior tonsillectomy, cervical spine surgery. PAST HOSPITALIZATIONS: Surgeries/procedures as listed, numerous prior hospitalizations. FAMILY MEDICAL HISTORY: The patient's paternal and maternal grandparents are . Their medical histories are unknown. The patient's father is from non-Hodgkin's lymphoma. His mother is alive and healthy. One brother is from non-Hodgkin's lymphoma. Two sisters are alive. The eldest sister has heart disease. The younger sister is morbidly obese. Mr. Lopez has 3 children, 1 son and 2 daughters, all of whom are alive and healthy. SOCIAL HISTORY: Mr. Lopez is single. He is a [facility] resident. The patient is on disability. Mr. Lopez reports smoking 1 cigar per day. He does not report current or prior alcohol or recreational drug use. HOME MEDICATIONS: Reviewed. Please see the list of home medications available on electronic medical record. ALLERGIES: AMPICILLIN, GABAPENTIN, METOCLOPRAMIDE, MORPHINE, ONDANSETRON. NO KNOWN FOOD ALLERGIES. NO KNOWN ALLERGIES TO LATEX. NO KNOWN ALLERGIES TO IODINE OR OTHER CONTRAST MATERIALS. PHYSICAL EXAMINATION VITAL SIGNS: Height 74 inches, weight 430 pounds, BMI 55.2 kg per meter squared. Blood pressure 115/56 mmHg, pulse 76 beats per minute, respiratory rate 16 breaths per minute, oxygen saturation 96% on room air. GENERAL: The patient is awake and alert, does not appear distressed. Morbidly obese. HEENT: Normocephalic and atraumatic. Pupils are equal, round, and reactive to light. Moist mucous membranes. NECK: Supple. No appreciable thyromegaly. No appreciable carotid bruits. CARDIOVASCULAR: S1 and S2. Regular rate and rhythm. No murmurs, rubs or gallops. RESPIRATORY: Expiratory wheezes throughout. EXTREMITIES: The skin is warm and dry. No clubbing or cyanosis. One plus pretibial pitting edema is present. The posterior tibial and dorsalis pedis pulses are 1+ and symmetric. SKIN: No rashes or lesions. NEUROLOGIC: Memory/attention: The patient is awake and alert, oriented to person, place, time, and situation. CRANIAL NERVES: Cranial nerve 1, not tested. Cranial nerve II, III, IV, and : Pupils are equal and round, react briskly to light (from 3 mm to 2 mm). Extraocular movements intact. No nystagmus. Cranial nerve V: Sensation is diminished to light touch in the right V1 and V2 distributions. Sensation to pinprick is diminished in the left V1 through V3 distributions. Strength of the temporalis and masseter muscles is within normal limits. Cranial nerve VII: There is possible left facial asymmetry. However, all facial movements are symmetric. Strength is within normal limits. Cranial nerve VIII: Hearing is diminished to finger rub bilaterally. Cranial nerve IX and X: The soft palate elevates equally and symmetrically. Cranial nerve XI: Normal strength of the bilateral sternocleidomastoid and trapezius muscles. Cranial nerve XII: The tongue protrudes midline. Moves symmetrically from side to side. STRENGTH: Bulk is normal. Strength is 5/5 in the right arm and right leg. Mr. Lopez reports he cannot move either his left arm or left leg. However, the patient "assists" with passive extension of the fingers, wrists, and elbow. Mr. Lopez "assists" with lifting of the left leg as well. Tone is normal in all 4 extremities. DTRs: Are 1+ and symmetric at the triceps, biceps, brachioradialis. Deep tendon reflexes are absent and symmetric at the patellas and Achilles. Plantar responses are flexor bilaterally. SENSATION: Is decreased to light touch and pinprick over the left arm and left leg. CEREBELLAR: Tmdoaa-[id number] and heel-chan movements are intact on the right without dysmetria or other impairment. Unable to assess in the left arm and left leg secondary to weakness. GAIT: Deferred. SPEECH: Spontaneous speech is mildly dysarthric with moderate to severe expressive aphasia. INVOLUNTARY MOVEMENTS: None. PRONATOR DRIFT: As per motor exam. LABORATORY DATA: The most recent basic metabolic panel is significant for potassium of 3.3, and an elevated serum glucose of 182. Liver function panel drawn on February 09, 2018, was unremarkable. Creatinine kinase 270, 339. CK-MB 3.3, 2.3. Troponin I 0.141, 0.117. Serum glucoses have ranged from 124 to 193 in the past 24 hours. CBC with differential and platelets reveals a white blood cell count of 4.99 with a normal differential. The hemoglobin and hematocrit are 12.6 and 37.8, respectively. The platelet count is 180,000. An arterial blood gas revealed pH of 7.435, pCO2 of 36.1, pO2 of 37, bicarbonate 24.1, total CO2 25, oxygen saturation of 73, base excess of zero, and FIO2 of 21. A urinalysis was significant for 1+ leukocyte esterase, and 6-10 white blood cells. A urine drug screen was negative. DIAGNOSTIC STUDIES: Chest x-ray on February 09, 2018, limited by portable technique and motion. 1. Lines/tubes: Stable median sternotomy wires and hardware. 2. Stable cardiomediastinal silhouette. 3. Limited evaluation. Perihilar opacities may reflect central vascular congestion and/or atelectasis. 4. No effusion or pneumothorax. CT of the brain without contrast on February 09, 2018, on my review, there is no evidence of recent large territorial ischemia, hemorrhage, mass, or mass effect. There is no evidence of remote large territorial ischemia or hemorrhage. Cerebral volumes appear appropriate for age. There are findings compatible with mild to moderate chronic small vessel ischemic disease. CT of the chest with contrast on February 09, 2018: 1. Severely limited assessment related to body habitus and suboptimal attenuation of pulmonary arteries. No large central embolism. 2. Otherwise, stable from prior. No consolidation. Echocardiogram on February 09, 2018, ejection fraction 60% to 65%. Concentric left ventricular hypertrophy. Left atrium is dilated. Bilateral carotid artery ultrasound with Doppler on February 09, 2018, mild (1 to 15% stenosis) of the bilateral internal carotid arteries. Flow is antegrade in the bilateral vertebral arteries. Electrocardiogram on February 10, 2018, normal sinus rhythm at 69 beats per minute. ASSESSMENT AND PLAN: Mr. Lopez is a 47-year-old man with an extensive past medical history admitted with a unilateral, severe headache with dysarthria, aphasia, and "left hemiparesis." The patient has undergone a thorough neurological examination with findings detailed above. The patient's laboratory data and other diagnostic studies have been reviewed and are documented above. Mr. Lopez reports the above-described symptoms have occurred intermittently over the past 24 hours. Therefore, there is low suspicion for either a transient ischemic attack or stroke. In my opinion, it is possible Mr. Lopez is experiencing a complex migraine. Therefore, treatment recommendations are as follows: 1. Promethazine 25 mg intravenously every 6 hours times 2 doses. 2. Hydrocortisone 125 mg intravenously every 6 hours times 2 doses. 3. Valproate 500 mg intravenously every 6 hours times 2 doses. 4[address] Repeat a CT of the brain without contrast to exclude a diagnosis of stroke. 5. Defer treatment of the remaining medical comorbidities to the primary and other services following the patient. Thank you for this consultation. I will continue to follow the patient while he remains in the hospital. Time spent 70 minutes. Job#: [id number] EDE VELARDE
[2018-02-10] MEDS ORDERED: SODIUM CHLORIDE 0.9% 250ML 250 ML ONE (18:26)
[2018-02-10] MEDS: RISPERIDONE 0.5 MG TAB PO SCH (18:43)
[2018-02-10] MEDS: PROMETHAZINE 25MG/ NS 50ML (IV) IV SCH (19:00)
--- NOTE | 2018-02-10 19:35 | NUR ---
Patient received lying in bed. AAO x 3. No complaints of pain. No signs of respiratory distress. Patient instructed to call for assistance when needed. Call light within reach.
--- NOTE | 2018-02-10 19:40 | Diagnostic Imaging Report ---
EXAMINATION: Head CT without contrast. HISTORY:TIA, migraine. COMPARISON:CT brain from 02/09/2018. TECHNIQUE: Multidetector axial images were obtained from the foramen magnum to the vertex without contrast. The images were reconstructed using brain and bone algorithms. Thin section brain images were reformatted into coronal and sagittal planes. Dose modulation, iterative reconstruction, and/or weight based adjustment of the mA/kV was utilized to reduce the radiation dose to as low as reasonably achievable. Intravenous contrast: None IMAGE QUALITY: Acceptable. FINDINGS: Skull/scalp: No lytic or blastic. lesions. No surgical changes. Parenchyma: No abnormal density. No acute hemorrhage, mass or acute major vascular territorial infarct. Arteries: No density suggestive of thrombosis. Dural sinuses: No abnormal density suggestive of thrombosis. Ventricles: No hydrocephalus or displacement. Extra-axial spaces: No abnormal density. Brain volume: Unchanged moderate cerebellar volume loss. Craniocervical junction: No mass, Chiari malformation, or basilar invagination. Sella: No mass. Paranasal/mastoid sinuses: Imaged portions unremarkable. IMPRESSION: No acute intracranial abnormality. Unchanged nonspecific moderate cerebellar volume loss. Signed by: Dr. Dian Browning M.D. on 02/10/2018 7:36 PM
[2018-02-10] MEDS: DOXEPIN HCL 25 MG CAP PO SCH (20:40)
[2018-02-10] MEDS: ATORVASTATIN 20 MG TAB PO SCH (20:40)
[2018-02-10] MEDS: TRAZODONE HCL 50 MG TAB PO SCH (20:40)
[2018-02-10] MEDS: MIRTAZAPINE 15 MG TAB PO SCH (20:40)
[2018-02-10 21:00] VITALS: BP 122/69
[2018-02-10 22:04] VITALS: BP 122/69
[2018-02-11] MEDS: PROMETHAZINE 25MG/ NS 50ML (IV) IV SCH ×6 (00:09→23:48)
[2018-02-11 01:10] VITALS: BP 123/70
[2018-02-11] MEDS: ALBUTEROL/IPRATROPIUM 3 ML NEB NEB SCH ×4 (01:25→19:38)
[2018-02-11] MEDS: CEFEPIME 1GM/NS 0.9% 50 ML 50 ML IV SCH ×2 (03:00→14:30)
[2018-02-11 06:45] VITALS: BP 108/65
[2018-02-11 08:00] VITALS: BP 118/70
[2018-02-11] MEDS: PANTOPRAZOLE SOD 40 MG TABEC PO SCH (08:00)
[2018-02-11] MEDS: PREGABALIN 50 MG CAP PO SCH ×2 (08:00→21:19)
--- NOTE | 2018-02-11 08:00 | NUR ---
PT ROUNDING EARLIER. NO COMPLAINTS VOICED AT THAT TIME.
[2018-02-11] MEDS: LAMOTRIGINE 25 MG TAB PO SCH ×2 (09:00→17:00)
[2018-02-11] MEDS: ISOSORBIDE MONONITRATE 30 MG TAB CR PO SCH (09:00)
[2018-02-11] MEDS: DULOXETINE HCL 20 MG DELAYED RELEASE PO SCH ×2 (09:00→17:00)
[2018-02-11] MEDS: METOPROLOL TARTRATE 25 MG TAB PO SCH ×2 (09:00→17:00)
[2018-02-11] MEDS: FUROSEMIDE 40 MG TAB PO SCH ×2 (09:00→17:00)
[2018-02-11] MEDS: CLOPIDOGREL BISULFATE 75 MG TAB PO SCH (09:00)
[2018-02-11] MEDS: POTASSIUM CHLORIDE 20 MEQ TAB CR PO SCH (09:00)
[2018-02-11] MEDS: RANOLAZINE 500 MG TABSR PO SCH ×2 (09:00→17:00)
[2018-02-11] MEDS: RISPERIDONE 0.5 MG TAB PO SCH ×2 (09:00→17:00)
[2018-02-11] MEDS: RIVAROXABAN 20 MG TABLET PO SCH (09:00)
[2018-02-11] MEDS: FENOFIBRATE 145 MG TAB PO SCH (09:00)
[2018-02-11] MEDS: LEVETIRACETAM 500 MG TAB PO SCH ×2 (09:00→17:00)
--- NOTE | 2018-02-11 12:00 | NUR ---
DR DILL IN EARLIER NO NEW ORDERS.
[2018-02-11 12:53] VITALS: BP 106/61
[2018-02-11] MEDS: PROMETHAZINE HCL 25 MG TAB PO PRN (13:00)
[2018-02-11 15:58] VITALS: BP 114/66
--- NOTE | 2018-02-11 18:30 | NUR ---
NO CHANGES AT THIS TIME IN PT STATUS.
[2018-02-11 20:00] VITALS: BP 119/70
[2018-02-11] MEDS: TRAZODONE HCL 50 MG TAB PO SCH (21:00)
[2018-02-11] MEDS: ATORVASTATIN 20 MG TAB PO SCH (21:19)
[2018-02-11] MEDS: DOXEPIN HCL 25 MG CAP PO SCH (21:19)
[2018-02-11] MEDS: MIRTAZAPINE 15 MG TAB PO SCH (21:19)
[2018-02-12] VITALS (8 sets, daily range): BP systolic 97–118; BP diastolic 62–80
[2018-02-12] MEDS: PROMETHAZINE 25MG/ NS 50ML (IV) IV SCH
[2018-02-12] MEDS: ALBUTEROL/IPRATROPIUM 3 ML NEB NEB SCH ×4 (01:25→20:30)
[2018-02-12] MEDS: CARISOPRODOL 350 MG TAB PO PRN (02:19)
[2018-02-12] MEDS: CEFEPIME 1GM/NS 0.9% 50 ML 50 ML IV SCH ×2 (02:19→14:47)
[2018-02-12] MEDS: RIVAROXABAN 20 MG TABLET PO SCH (09:41)
[2018-02-12] MEDS: RISPERIDONE 0.5 MG TAB PO SCH ×2 (09:41→17:57)
[2018-02-12] MEDS: FENOFIBRATE 145 MG TAB PO SCH (09:41)
[2018-02-12] MEDS: RANOLAZINE 500 MG TABSR PO SCH ×2 (09:42→17:57)
[2018-02-12] MEDS: LEVETIRACETAM 500 MG TAB PO SCH ×2 (09:42→17:56)
[2018-02-12] MEDS: DULOXETINE HCL 20 MG DELAYED RELEASE PO SCH ×2 (09:42→17:00)
[2018-02-12] MEDS: LAMOTRIGINE 25 MG TAB PO SCH ×2 (09:42→17:56)
[2018-02-12] MEDS: PREGABALIN 50 MG CAP PO SCH ×2 (09:42→21:14)
[2018-02-12] MEDS: ISOSORBIDE MONONITRATE 30 MG TAB CR PO SCH (09:42)
[2018-02-12] MEDS: POTASSIUM CHLORIDE 20 MEQ TAB CR PO SCH (09:42)
[2018-02-12] MEDS: METOPROLOL TARTRATE 25 MG TAB PO SCH ×2 (09:42→17:57)
[2018-02-12] MEDS: PANTOPRAZOLE SOD 40 MG TABEC PO SCH (09:42)
[2018-02-12] MEDS: CLOPIDOGREL BISULFATE 75 MG TAB PO SCH (09:42)
[2018-02-12] MEDS: FUROSEMIDE 40 MG TAB PO SCH ×2 (09:42→17:56)
[2018-02-12 10:26] LABS: BASOPHILS % 0.5 % (0.0-1.0); EOSINOPHILS # (AUTO) 0.1 (0.0-0.4); EOSINOPHILS % 1.6 % (0.0-6.0); HEMATOCRIT 41.4 % (38.2-49.6); HEMOGLOBIN 14.2 g/dL (14.0-18.0); LYMPHOCYTES # (AUTO) 1.6 (1.0-3.2); LYMPHOCYTES % 28.5 % (18.0-39.1); MEAN CORPUSCULAR HEMOGLOBIN 31.4 pg (28-32); MEAN CORPUSCULAR HGB CONC 34.3 g/dL (31-35); MEAN CORPUSCULAR VOLUME 91.6 fL (81-99); MONOCYTES # (AUTO) 0.4 (0.2-0.8); MONOCYTES % 6.7 % (4.4-11.3); NEUTROPHILS # (AUTO) 3.5 (2.1-6.9); NEUTROPHILS % 62.2 % (38.7-80.0); PLATELET COUNT 196 x10e3/uL (140-360); RED BLOOD COUNT 4.52 x10e6/uL (4.3-5.7); RED CELL DISTRIBUTION WIDTH 13.4 % (11.7-14.4)
[2018-02-12 10:47] LABS: ANION GAP 13.7 mmol/L (8-16); CALCIUM 9.3 mg/dL (8.4-10.2); CREATININE, SERUM 1.39 mg/dL (0.72-1.25); POTASSIUM 3.7 mmol/L (3.5-5.1)
[2018-02-12] MEDS: KETOROLAC TROMETHAMINE 30 MG/ML VIAL IV SCH ×3 (11:22→17:57)
--- NOTE | 2018-02-12 12:14 | NUR ---
Cdl A Driver to bedside to discuss plan of care with patient/family. CM/SW role and care transitions discussed. Anticipated discharge plan discussed along with duration of care. CM/SW discussed patients right to make decisions in care. CM/SW work hours given. Patient lives: in assisted living at [facility] Admit/Transfer: thru ED, from [facility] POA/Emergency contact: pt states his family members do not have phones. they communicate thru [employer]. states to call Juan (program administrator at [facility]) [phone] Current/Previous Home Health: previously with [facility] PCP/Follow-up Care: Anthony Current/Previous DME: none; but pt asking for a wheelchair now Other Services: none Employment Status: unemployed Areas of Concerns: n/a Referral Needs: may need home health for therapy on discharge Education Needs: medical management IMM/MATIAS given and signed (if applicable): n/a Goal for discharge: home with home health; pt states he would like to have [facility] home health if possible. choice letter signed and placed in chart. Copy to pt. Pt also asked about other assisted living facilities, CM provided him with Senior Resource guide with list of [facility]. CM/SW left business card at the bedside with contact information. Name and number was also written on the patients whiteboard. Patient verbalized understanding of discussion. CM will follow-up with ongoing discharge and transition of care needs.
--- NOTE | 2018-02-12 16:00 | NUR ---
Spoke with Dr. Sanders regarding PT recommendation for inpatient rehab. Informed MD of pt's insurance. Would only be able to get pt home health. MD gave order to set up home health. Also notified MD that pt is asking for a wheelchair and bedside commode to assist with ADLs. Received order for DME.
[2018-02-12] MEDS ORDERED: ATORVASTATIN 40 MG TAB PO SCH (21:00)
[2018-02-12] MEDS: TRAZODONE HCL 50 MG TAB PO SCH (21:10)
[2018-02-12] MEDS: DOXEPIN HCL 25 MG CAP PO SCH (21:10)
[2018-02-12] MEDS: MIRTAZAPINE 15 MG TAB PO SCH (21:10)
[2018-02-13] VITALS: BP 101/57
[2018-02-13] MEDS: ALBUTEROL/IPRATROPIUM 3 ML NEB NEB SCH ×2 (01:30→07:26)
[2018-02-13] MEDS: HYDROCODONE/APAP 10MG-325MG TAB PO PRN (01:42)
[2018-02-13] MEDS: PROMETHAZINE HCL 25 MG TAB PO PRN (01:42)
[2018-02-13] MEDS: CEFEPIME 1GM/NS 0.9% 50 ML 50 ML IV SCH ×2 (02:33→14:30)
[2018-02-13] MEDS: CARISOPRODOL 350 MG TAB PO PRN (03:04)
[2018-02-13 04:00] VITALS: BP 108/59
[2018-02-13 08:33] VITALS: BP 133/72
[2018-02-13] MEDS: PANTOPRAZOLE SOD 40 MG TABEC PO SCH (09:17)
[2018-02-13] MEDS: PREGABALIN 50 MG CAP PO SCH (09:17)
[2018-02-13] MEDS: DULOXETINE HCL 20 MG DELAYED RELEASE PO SCH ×2 (09:17→17:00)
[2018-02-13] MEDS: LAMOTRIGINE 25 MG TAB PO SCH ×2 (09:18→17:00)
[2018-02-13] MEDS: ISOSORBIDE MONONITRATE 30 MG TAB CR PO SCH (09:18)
[2018-02-13] MEDS: LEVETIRACETAM 500 MG TAB PO SCH ×2 (09:18→17:00)
[2018-02-13] MEDS: FUROSEMIDE 40 MG TAB PO SCH ×2 (09:18→17:00)
[2018-02-13] MEDS: POTASSIUM CHLORIDE 20 MEQ TAB CR PO SCH (09:18)
[2018-02-13] MEDS: RIVAROXABAN 20 MG TABLET PO SCH (09:19)
[2018-02-13] MEDS: RANOLAZINE 500 MG TABSR PO SCH ×2 (09:19→17:00)
[2018-02-13] MEDS: FENOFIBRATE 145 MG TAB PO SCH (09:19)
[2018-02-13] MEDS: CLOPIDOGREL BISULFATE 75 MG TAB PO SCH (09:19)
[2018-02-13] MEDS: RISPERIDONE 0.5 MG TAB PO SCH ×2 (09:19→17:00)
[2018-02-13] MEDS: METOPROLOL TARTRATE 25 MG TAB PO SCH ×2 (09:19→17:00)
--- NOTE | 2018-02-13 10:33 | NUR ---
MIAH called and spoke with Estela at [employer]. Verified that pt was previously with this company and they still take his insurance. Estela stated they are able to provide service at [facility]. Referral was faxed to [phone] / P [phone]. Informed Estela that pt is discharging today. [employer] [facility] [address] [place] [address] Miah called and spoke with Harini at [facility]. She verified they are able to take pt's insurance. Referral for wheelchair and bedside commode was faxed to [phone] / P [phone]. Informed [facility] that pt is discharging today and requested order to be processed stat.
--- NOTE | 2018-02-13 12:00 | NUR ---
Spoke with Radha from [facility]. Gave her an updated phone number for pt. She stated they are able to accept pt and will call him and schedule a time to come out to see him. MIAH called and spoke with Namrata at [facility] for DME. Namrata stated they are still pending insurance auth, but will be able to deliver the equipment tomorrow as long as they have a credit card on file. Earliest delivery date is tomorrow since their delivery techs do not carry bariatric equipment on their trucks.
[2018-02-13 12:08] VITALS: BP 130/76
--- NOTE | 2018-02-13 13:26 | Progress Note ---
DATE: February 13, 2018 CARDIOLOGY PROGRESS NOTE I am seeing this patient for Dr. Bg Weber. The patient at this time is feeling better. The patient is not having any dizziness or TIA. The patient is already seen by primary physician and Dr. Weber in the past. At this time, I believe he is going to be discharged by the primary physician. The patient has a long history of coronary artery disease and complex bypass surgery in 2014. The patient had a stroke on the left side, but is able to move the left arm, but not the left leg. The patient is in skilled assisted-care facility. The patient also IVC filter placed in the past. The patient is known to have type 2 diabetes mellitus. He is on Plavix and Xarelto because of DVT. Also, the patient is on Keppra and isosorbide daily, and Lasix daily. 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 Does not complain of chest pain at this time. The patient did not have an acute cerebrovascular accident at this time. The patient is going to be discharged. Cardiac carpenter, the patient is stable. The patient is discharged by Dr. Bg Weber from cardiac point of view. IMPRESSION 1. Transient ischemic attack, but no new stroke. 2. Chest pain, atypical. 3. Morbid obesity. Weighs about 400 pounds. 4. Type 2 diabetes mellitus. 5. Possible depression. 6. History of deep venous thrombosis. 7. Hyperlipidemia. The patient is quite stable at the point he can be discharged. Job#: [id number] EDE
--- NOTE | 2018-02-13 15:30 | NUR ---
Received call from Jodi at [facility]. She stated that they provided pt with a heavy duty walker, bariatric wheelchair and bariatric bedside commode on October 18, 2016 so they would not be able to get another one thru insurance. CM spoke with pt and he stated that he never received anything. Jodi said they delivered to pt's room at [facility] in [facility]. Pt said he was at [facility] a year ago, but continues to state that he did not receive anything. Asked about out of pocket arzola for these equipment. Jodi said bariatric wheelchair would be $750 and bedside commode is $225. Pt stated that is too expensive. CM offered to find DME at a more affordable rate. Pt stated he will not pay for anything out of pocket and he will just use his electric chair until it breaks. Stated he just wants to go home. PT at bedside to work with pt and he is refusing to work with them, again stating he just wants to go home. Clinicals were faxed to Guero Perez at [phone]. [address] [place] [address] - nursing to call this number for report. [facility] [address] [place] [address]
[2018-02-13 16:24] VITALS: BP 133/71
--- NOTE | 2018-02-13 19:07 | NUR ---
PT'S MEDICATIONS NOT GIVEN BECAUSE HE HAS BEEN DISCHARGED AND IS WAITING FOR HIS RIDE. PT SITTING IN CHAIR, ALERT AND ORIENTED X3, NO C/O PAIN AT THIS TIME. IV TAKEN OUT SITE CLEAN, NO REDNESS OR SWELLING NOTED.DISCHARGED PAPERS SIGNED AND PT COPY IS WITH HIM.
--- NOTE | 2018-02-13 22:42 | NUR ---
SPOKE TO JORGE WITH [facility]. REQUESTED SPECIALITY BED OPERATIONS ADMINISTRATIVE ASSISTANT. CONFIRMATION #[id number].
== END 2018-02-13 19:45 | disposition home health service (06) | DRG 69 ==
LOC: ER 01:16 → MED/SURG 04:48 → ER 06:30 → OBSVTOIN 09:34 → MED/SURG2 02-10 16:21
PROVIDERS: ADMIT Internal Medicine; ATTEND Internal Medicine
DX: G45.9 Transient cerebral ischemic attack, unspecified (principal); I50.30 Unspecified diastolic (congestive) heart failure; I13.0 Hypertensive heart and chronic kidney disease with heart failure and stage 1 through stage 4 chronic kidney disease, or unspecified chronic kidney disease; Z68.43 Body mass index [BMI] 50.0-59.9, adult; G81.94 Hemiplegia, unspecified affecting left nondominant side; J44.1 Chronic obstructive pulmonary disease with (acute) exacerbation; G43.109 Migraine with aura, not intractable, without status migrainosus; I25.10 Atherosclerotic heart disease of native coronary artery without angina pectoris; Z95.1 Presence of aortocoronary bypass graft; I69.322 Dysarthria following cerebral infarction; R07.9 Chest pain, unspecified; E87.6 Hypokalemia; E66.01 Morbid (severe) obesity due to excess calories; G47.33 Obstructive sleep apnea (adult) (pediatric); I27.20 Pulmonary hypertension, unspecified; F43.10 Post-traumatic stress disorder, unspecified; F32.9 Major depressive disorder, single episode, unspecified; Z90.5 Acquired absence of kidney; E11.9 Type 2 diabetes mellitus without complications; Z79.01 Long term (current) use of anticoagulants; Z86.718 Personal history of other venous thrombosis and embolism; N18.3 Chronic kidney disease, stage 3 (moderate); Z88.1 Allergy status to other antibiotic agents; Z88.5 Allergy status to narcotic agent; Z88.8 Allergy status to other drugs, medicaments and biological substances
CPT/HCPCS: 36415; 36600; 70450; 71045; 71260; 80048; 80053; 80307; 81001; 82550; 82553; 82948; 83735; 84484; 85025; 93005; 93306; 93880; 94640; 97139; 99284; J0692; J1720; J1885; J2550; J3370; J3480; J7030; J7050; Q9967

== ENCOUNTER 2018-04-10 12:50 | Emergency (ER) | payer OTHER ==
[~2018-04-10] VITALS: Ht 188 cm; Wt 204.1 kg
[~2018-04-10 12:50] MED LIST changes: +ISOSORBIDE MONONITRATE PO; +METFORMIN HCL1000 MG PO; +MOBIC15 MG PO; +RANEXA500 MG PO; +RISPERDAL1 MG PO; +TRICOR145 MG PO; +[UNRECOGNIZED DRUG - OTHER] PO
[2018-04-10 14:14] LABS: BASOPHILS % 0.5 % (0.0-1.0); EOSINOPHILS # (AUTO) 0.1 (0.0-0.4); EOSINOPHILS % 2.2 % (0.0-6.0); HEMATOCRIT 40.6 % (38.2-49.6); HEMOGLOBIN 13.6 g/dL (14.0-18.0); LYMPHOCYTES # (AUTO) 1.9 (1.0-3.2); LYMPHOCYTES % 29.6 % (18.0-39.1); MEAN CORPUSCULAR HEMOGLOBIN 30.6 pg (28-32); MEAN CORPUSCULAR HGB CONC 33.5 g/dL (31-35); MEAN CORPUSCULAR VOLUME 91.2 fL (81-99); MONOCYTES # (AUTO) 0.6 (0.2-0.8); NEUTROPHILS # (AUTO) 3.7 (2.1-6.9); NEUTROPHILS % 57.9 % (38.7-80.0); PLATELET COUNT 226 x10e3/uL (140-360); RED BLOOD COUNT 4.45 x10e6/uL (4.3-5.7); RED CELL DISTRIBUTION WIDTH 13.7 % (11.7-14.4)
[2018-04-10 14:19] LABS: BILIRUBIN,URINE NEGATIVE (NEGATIVE); CLARITY,URINE CLEAR (CLEAR); COLOR,URINE YELLOW (YELLOW); INR 0.9; KETONES,URINE NEGATIVE (NEGATIVE); LEUKOCYTE ESTERASE ,URINE NEGATIVE (NEGATIVE); NITRITE,URINE NEGATIVE (NEGATIVE); PROTEIN,URINE DIPSTICK NEGATIVE (NEGATIVE); URINE UROBILINOGEN 0.2 mg/dL (0.2 - 1)
[2018-04-10 14:20] LABS: PARTIAL THROMBOPLASTIN TIME 30.7 seconds (23.8-35.5)
--- NOTE | 2018-04-10 14:26 | NUR ---
PATIENT REQUESTING PAIN MEDICATION. STATES HE IS ALSO ALLERGIC TO TORADOL AND TRAMADOL. THESE ARE NOT ON HIS LIST. HE STATES, "THAT IS AN OLD LIST I CARRY A ROUND"
[2018-04-10 14:28] LABS: WBC,URINE (MAN) 0-5 /HPF (0-5)
[2018-04-10 14:30] LABS: ALANINE AMINOTRANSFERASE 33 IU/L (0-55); ALBUMIN 3.6 g/dL (3.5-5.0); ALBUMIN/GLOBULIN RATIO 1.4 (0.8-2.0); ALKALINE PHOSPHATASE 90 IU/L (40-150); AMYLASE 26 U/L (25-125); ANION GAP 9.1 mmol/L (8-16); BLOOD UREA NITROGEN 10 mg/dL (7-26); BUN/CREATININE RATIO 9 (6-25); CALCIUM 8.9 mg/dL (8.4-10.2); CARBON DIOXIDE 25 mmol/L (22-29); CHLORIDE 103 mmol/L (98-107); CREATINE KINASE 138 IU/L (30-200); CREATININE, SERUM 1.06 mg/dL (0.72-1.25); EST GLOMERULAR FILTRATION RATE > 60 ML/MIN (60-); GLUCOSE 159 mg/dL (74-118); LIPASE 30 U/L (8-78); POTASSIUM 4.1 mmol/L (3.5-5.1); SODIUM 133 mmol/L (136-145)
[2018-04-10] MEDS ORDERED: HYDROMORPHONE 1MG/1ML INJ IV PRN (14:30)
[2018-04-10] MEDS ORDERED: NITROGLYCERIN 2% OINT 1 GM PKT TOP ONE (14:30)
[2018-04-10] MEDS ORDERED: HYDROMORPHONE 2MG/ML 2 MG/ML ML IV PRN (14:30)
[2018-04-10] MEDS ORDERED: ASPIRIN 325 MG TAB PO ONE (14:30)
--- NOTE | 2018-04-10 14:35 | Diagnostic Imaging Report ---
Examination: Single AP view of the chest. COMPARISON: 02/09/2018 INDICATION: Left chest pressure, dry cough, ankle swelling DISCUSSION: Lungs are well-inflated. No gross consolidation, pleural effusion, or pneumothorax. Stable mild enlargement of the cardiac silhouette. Prominence of the central pulmonary vasculature. Median sternotomy postsurgical changes. No acute osseous abnormality. IMPRESSION: Mild enlargement of the cardiac silhouette with pulmonary venous congestion. Signed by: Dr. Luan Santana M.D. on 04/10/2018 2:32 PM
[2018-04-10] MEDS ORDERED: FUROSEMIDE INJ 10 MG/ML 4 ML VIAL IV ONE (16:00)
--- NOTE | 2018-04-10 16:14 | NUR ---
DR. IBRAHIM AT BEDSIDE SPEAKING WITH PATIENT. HE IS UPSET. STATES HE IS IN PAIN AND WERE ARE NOT TREATING IT. AND IF WERE GOING TO GIVE HIM LASIX HE WOULD RATHER GO BACK TO HIS ASSISTED LIVING AND PEE. 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
[2018-04-10] MEDS ORDERED: ALBUTEROL/IPRATROPIUM 3 ML NEB NEB ONE (16:15)
[2018-04-10] MEDS ORDERED: ASPIR 8181 MG PO (16:28)
[2018-04-10] MEDS ORDERED: METHYLPREDNISOLONE SOD SUCC 125 MG/2ML VIAL IV NR (16:30)
--- NOTE | 2018-04-10 16:30 | NUR ---
DR. SALGADO AT BEDSIDE EVALUATING PATIENT
--- NOTE | 2018-04-11 02:50 | Consultation ---
DATE OF CONSULTATION: 04/10/2018 Cardiology Consultation REFERRING PHYSICIAN: Alesha Crowder MD. CONSULTING PHYSICIAN: Hay Ospina MD, Interventional Cardiology REASON FOR CONSULTATION: Palpitations. HISTORY OF PRESENT ILLNESS: Mr. Lopez is a 47-year-old man known from multiple previous visits to various hospitals with recurrent symptoms. He reports a remote history of CAD, status post bypass; diabetes mellitus, type 2; hypertension; depression; dyslipidemia; and prior history of DVT. He lives in an assisted-living facility. He has extreme morbid obesity. He has bipolar disorder; seizure disorder, treated with Keppra; COPD; and atrial fibrillation, status post left nephrectomy. On previous recent evaluation, he had preserved left ventricular systolic function with LVH, left atrial dilatation, mild plaque on carotid ultrasound with antegrade vertebrals, and a normal EKG. On current evaluation, he has normal sinus rhythm and normal EKG. Serial cardiac enzymes negative x1 and BNP of 55. Normal creatinine. He presents with self described episode of tachycardia per his own assessment. On telemetry, he has been in sinus rhythm with no evidence of arrhythmia. He does not elicit any shortness of breath at this point in time and improved symptoms overall. On multiple prior admissions, he has described various different symptoms for TIA or CVA as well as recent chest discomfort with reassuring workup. He also had a history of PTSD, major depression, and panic disorder. REVIEW OF SYSTEMS: A 12 systems review negative except for as noted above. PAST MEDICAL HISTORY: As per HPI. Complex reported history. ALLERGIES: REPORTED TO AMPICILLIN, GABAPENTIN, KETOROLAC, METOCLOPRAMIDE, MORPHINE, ZOFRAN, AND TRAMADOL. SOCIAL HISTORY: No active smoking, alcohol, or drugs. FAMILY HISTORY: Noncontributory. PHYSICAL EXAMINATION: VITAL SIGNS: Temperature 97.3, heart rate 72, respiratory rate 18, blood pressure 139/91. O2 sat 99% on room air. GENERAL: No acute distress. Alert. NECK: No JVD. CHEST: Clear to auscultation. CARDIOVASCULAR: Regular rate and rhythm. Normal S1 and S2. No S3. No S4. No murmurs. No rubs. ABDOMEN: Soft, nontender, nondistended. EXTREMITIES: No cyanosis or clubbing, with trace edema to bilateral lower extremities. LABORATORY DATA: Studies reviewed. Chest x-ray, mild enlargement of cardiac silhouette with mild pulmonary venous congestion, now status post IV Lasix, symptomatic improvement by patient. INR 0.9. Sodium 133, potassium 4.1, chloride 103, bicarbonate 25, BUN 10, creatinine 1.06, glucose 159, calcium 8.9, total bilirubin 0.4, AST 25, ALT 33, alk phos 90. CK 138, CK-MB 2.2, troponin I less than 0.001. BNP 55.4, total protein 6.1, albumin 3.6, lipase 30, amylase 26. White blood cell count 6.3, hemoglobin 13.6, platelets 266. INR 0.9. PT 13. PTT 30. CARDIOVASCULAR MEDICATIONS: 1. Furosemide 40 mg IV x1. 2. Aspirin 325 mg daily. 3. Nitroglycerine p.r.n. 4. Hydromorphone 0.5 mg p.r.n. 5. Methylprednisolone 125 mg x1. 6. Albuterol p.r.n. All medications include aspirin, atorvastatin, clopidogrel, fenofibrate, furosemide, metoprolol, Ranolazine, Xarelto, isosorbide dinitrate. ASSESSMENT: 1. Reported palpitations with no documented evidence of arrhythmia while inhouse with reported history of paroxysmal atrial fibrillation, on Xarelto. 2. Chest pain, atypical and chronic recurrent, multiple admissions to various hospitals including [facility], [facility], in this hospital with different complaints including this atypical chest pain repeatedly with rule out. 3. Opiate-seeking behavior. 4. History of coronary artery disease with prior bypass. 5. Bipolar disorder. 6. Depression and anxiety. 7. Posttraumatic stress disorder. 8. Chronic obstructive pulmonary disease. 9. Remote history of deep vein thrombosis. 10. Status post nephrectomy, partial. RECOMMENDATIONS: 1. Rule out with serial cardiac enzymes. 2. Pain management, would advice with non opiate alternatives. 3. As blood pressure allows, resume antihypertensives. 4. Continue antiplatelets and anticoagulants. 5. Continue statin. 6. Outpatient followup for further evaluation advised, this patient ruled out and discharged. MD IAIN Morel/MODL /[id number]
== END 2018-04-10 18:25 | disposition home or self-care (01) ==
LOC: ER 12:50
DX: R07.89 Other chest pain (principal); J44.1 Chronic obstructive pulmonary disease with (acute) exacerbation; I50.9 Heart failure, unspecified; R11.2 Nausea with vomiting, unspecified; I10 Essential (primary) hypertension; I25.10 Atherosclerotic heart disease of native coronary artery without angina pectoris; E78.5 Hyperlipidemia, unspecified; F43.10 Post-traumatic stress disorder, unspecified; G89.4 Chronic pain syndrome; I25.2 Old myocardial infarction; Z85.528 Personal history of other malignant neoplasm of kidney; Z85.028 Personal history of other malignant neoplasm of stomach
CPT/HCPCS: 36415; 71045; 80053; 81001; 82150; 82550; 82553; 83690; 83880; 84484; 85025; 85610; 85730; 93005; 99284; J1940

== ENCOUNTER 2018-05-29 00:03 | Emergency (ER) | payer OTHER ==
[~2018-05-29] VITALS: Ht 188 cm; Wt 204.1 kg
[~2018-05-29 00:03] MED LIST changes: +ASPIR 8181 MG PO
--- OUTSIDE RECORDS SUMMARY | 2018-05-29 00:05 | XMS REPORT | Continuity of Care Document ---
Author Author [facility] Interface Address Unknown Phone Unavailable Problems Problem Status Onset Date Classification Date Reported Comments Source Physical deconditioning Active 04/25/2018 05/28/2018 [facility] Impaired mobility and ADLs Active 04/25/2018 05/28/2018 [facility] Impaired gait and mobility Active 04/25/2018 05/28/2018 [facility] At risk for falls Active 04/25/2018 05/28/2018 [facility] Chest pain Active 07/03/2010 05/28/2018 [facility] Pulmonary embolus Active 07/03/2010 05/28/2018 [facility] Medications Medication Details Route Status Patient Instructions Ordering Provider Order Date Source clopidogrel (PLAVIX) 75 mg tablet Take 1 Tab by mouth daily. Oral Active 07/04/2010 [facility] gabapentin (NEURONTIN) 300 mg capsule Take 2 Caps by mouth 2 times daily. Oral Active 07/04/2010 [facility] nitroGLYCERIN (NITROSTAT) 0.[address] 1 Tab under tongue every 5 minutes as needed for Chest pain. Sublingual Active 07/04/2010 [facility] warfarin (COUMADIN) 7.5 mg tablet Take 1 Tab by mouth daily (warfarin). Oral Active 07/04/2010 [facility] risperdone (RISPERDAL) 1 mg tablet Take by mouth every morning. 0.5mg in am2.5mg in pmAs previously instructed Oral Active 07/04/2010 [facility] famotidine (PEPCID) 20 mg tablet Take 1 Tab by mouth 2 times daily. Oral Active 07/04/2010 [facility] lisinopril (PRINIVIL, ZESTRIL) 2.5 mg tablet Take 8 Tabs by mouth daily. Oral Active 07/04/2010 [facility] metoprolol tartrate (LOPRESSOR) 25 mg tablet Take 1 Tab by mouth 2 times daily. Oral Active 07/04/2010 [facility] rosuvastatin (CRESTOR) 10 mg tablet Take 1 Tab by mouth at bedtime. Oral Active 07/04/2010 [facility] Allergies, Adverse Reactions, Alerts Substance Category Reaction Severity Reaction type Status Date Reported Comments Source Morphine Propensity to adverse reactions to drug Active 07/03/2010 [facility] Ondansetron Hcl (Pf) Propensity to adverse reactions to drug Active 07/03/2010 [facility] Immunizations Immunization Date Given Site Status Last Updated Comments Source Results Order Name Results Value Reference Range Date Interpretation Comments Source Vital Signs Vital Sign Value Date Comments Source Systolic (mm Hg) 117 04/24/2018 [facility] Diastolic (mm Hg) 74 04/24/2018 [facility] Heart Rate 81 04/24/2018 [facility] Encounters Location Location Details Encounter Type Encounter Number Reason For Visit Attending Provider ADM Date DC Date Status Source Outpatient [id number] TANA BENNETT 01/08/2016 Active [facility] Travel [id number] 04/24/2018 [facility] Therapy [id number] Katina Tracy PT 04/24/2018 04/24/2018 [facility] Procedures Procedure Code Date Perfomer Comments Source
--- OUTSIDE RECORDS SUMMARY | 2018-05-29 00:05 | XMS REPORT | Clinical Summary ---
Author Author [facility] Organization [facility] Address Unknown Phone Unavailable Care Team Providers Care Orthopedic Podiatrist Name Role Phone PCP Unavailable Allergies Comments Active Allergy Reactions Severity Noted Date Morphine 07/03/2010 Ondansetron Hcl (Pf) 07/03/2010 Medications End Date Status Medication Sig Dispensed Refills Start Date Active clopidogrel (PLAVIX) 75 Take 1 Tab by 30 Tab 0 mg tabletIndications: mouth daily. 1 Other pulmonary embolism and infarction Active gabapentin (NEURONTIN) Take 2 Caps 90 Cap 0 300 mg by mouth 2 1 capsuleIndications: times daily. Psychiatric problem Active nitroGLYCERIN (NITROSTAT) Place 1 Tab 90 Tab 0 0.4 mg sublingual under tongue 1 tabletIndications: Chest every 5 pain, unspecified minutes as needed for Chest pain. Active warfarin (COUMADIN) 7.5 Take 1 Tab by 30 Tab 0 201 mg tabletIndications: mouth daily 1 Pulmonary embolus (warfarin). Active risperdone (RISPERDAL) 1 Take by 90 Tab 0 mg tabletIndications: mouth every 1 Psychiatric problem morning. 0.5mg in am 2.5mg in pm As previously instructed Active famotidine (PEPCID) 20 mg Take 1 Tab by 60 Tab 2 tabletIndications: Chest mouth 2 times 1 pain daily. Active lisinopril (PRINIVIL, Take 8 Tabs 30 Tab 0 ZESTRIL) 2.5 mg by mouth 1 tabletIndications: Chest daily. pain Active metoprolol tartrate Take 1 Tab by 60 Tab 0 (LOPRESSOR) 25 mg mouth 2 times 1 tabletIndications: Chest daily. pain Active rosuvastatin (CRESTOR) 10 Take 1 Tab by 30 Tab 0 mg tabletIndications: mouth at 1 Pulmonary embolus bedtime. Active Problems Problem Noted Date Physical deconditioning 04/25/2018 Impaired mobility and ADLs 04/25/2018 Impaired gait and mobility 04/25/2018 At risk for falls 04/25/2018 Psychiatric problem 07/04/2010 Chest pain 07/03/2010 Pulmonary embolus 07/03/2010 Encounters Care Team Description Date Type Specialty Katina Tracy PT Impaired gait and mobility (Primary Dx); Impaired mobility and ADLs; Physical deconditioning; At risk for falls 04/24/2018 Therapy Physical Therapy 04/24/2018 Travel after 05/06/2017 Social History Date Tobacco Use Types Packs/Day Years Used Never Assessed Sex Assigned at Date Recorded Not on file Industry Job Start Date Occupation Not on file Not on file Not on file Travel End Travel History Travel Start No recent travel history available. 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 COMMUNITY Present [id number] [place] [address] Advance Directives For more information, please contact: [address] [address] Date Inactivated Comments Code Status Date Activated 07/04/2010 9:05 PM Full Code 07/03/2010 10:11 AM
--- OUTSIDE RECORDS SUMMARY | 2018-05-29 00:05 | XMS REPORT | Clinical Summary ---
Author Author [facility] Organization [facility] Address Unknown Phone Unavailable Care Team Providers Care Rim Roller Setter Name Role Phone PCP Unavailable Allergies Comments [...] Take 1 Tab by 30 Tab 0 05/17/201 mg tabletIndications: mouth at 1 Pulmonary embolus bedtime. Active Problems Problem Noted Date Psychiatric problem 07/04/2010 Chest pain 07/03/2010 Pulmonary embolus 07/03/2010 Encounters Care Team Description Date Type Specialty Katina Tracy, BRITT 04/24/2018 Therapy Physical Therapy 04/24/2018 Travel after 04/23/2017 Social History Date Tobacco Use Types Packs/Day Years Used Never Assessed Sex Assigned at Date Recorded Not on file Industry Job Start Date Occupation Not on file Not on file Not on file Travel End Travel History Travel Start No recent travel history available. 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 COMMUNITY Present [id number] [place] [address] Advance Directives For more information, please contact: [address] [address] Date Inactivated Comments Code Status Date Activated 07/04/2010 9:05 PM Full Code 07/03/2010 10:11 AM
--- OUTSIDE RECORDS SUMMARY | 2018-05-29 00:05 | XMS REPORT | Clinical Summary ---
Author Author [facility] Organization [facility] Address Unknown Phone Unavailable Care Team Providers Care Calender Let Off Helper Name Role Phone PCP Unavailable Allergies Comments [...] 04/24/2018 Therapy Physical Therapy 04/24/2018 Travel after 2017 Social History Date Tobacco Use Types Packs/Day Years Used Never Assessed Sex Assigned at Date Recorded Not on file Industry Job Start Date Occupation Not on file Not on file Not on file Travel End Travel History Travel Start No recent travel history available. Last Filed Vital Signs Time Taken Vital Sign Reading 04/24/2018 2:06 PM COMMUNITY FACILITATOR Blood Pressure 117/74 04/24/2018 2:06 PM COMMUNITY FACILITATOR Pulse 81 - Temperature - - Respiratory Rate - 04/24/2018 2:06 PM COMMUNITY FACILITATOR Oxygen Saturation 96% - Inhaled Oxygen - Concentration - Weight - - Height - - Body Mass Index - Plan of Treatment Health Maintenance Due Date Last Done Comments IMM Influenza Seasonal 11/18/2018Nov to April (>/=19 yrs) Results Not on fileafter 2017 Insurance Type Payer Benefit Subscriber ID Effective Phone Address Plan / Dates Group [facility] xxxxxxxxx 2017- [phone] COMMUNITY Present [id number] [place] [address] Advance Directives For more information, please contact: [address] [address] Date Inactivated Comments Code Status Date Activated 07/04/2010 9:05 PM Full Code 07/03/2010 10:11 AM
[2018-05-29] MEDS ORDERED: NITROGLYCERIN 2% OINT 1 GM PKT TOP ONE (00:30)
[2018-05-29] MEDS ORDERED: FAMOTIDINE 20 MG/2 ML VIAL IV ONE (00:30)
[2018-05-29 00:33] LABS: BASOPHILS # (AUTO) 0.1 (0.0-0.1); BASOPHILS % 0.4 % (0.0-1.0); EOSINOPHILS # (AUTO) 0.2 (0.0-0.4); EOSINOPHILS % 1.7 % (0.0-6.0); HEMATOCRIT 42.5 % (38.2-49.6); HEMOGLOBIN 14.4 g/dL (14.0-18.0); LYMPHOCYTES # (AUTO) 3.4 (1.0-3.2); LYMPHOCYTES % 30.2 % (18.0-39.1); MEAN CORPUSCULAR HEMOGLOBIN 30.4 pg (28-32); MEAN CORPUSCULAR HGB CONC 33.9 g/dL (31-35); MEAN CORPUSCULAR VOLUME 89.7 fL (81-99); MONOCYTES # (AUTO) 0.8 (0.2-0.8); MONOCYTES % 7.1 % (4.4-11.3); NEUTROPHILS # (AUTO) 6.5 (2.1-6.9); NEUTROPHILS % 58.3 % (38.7-80.0); PLATELET COUNT 262 x10e3/uL (140-360); RED BLOOD COUNT 4.74 x10e6/uL (4.3-5.7); RED CELL DISTRIBUTION WIDTH 13.5 % (11.7-14.4)
[2018-05-29 00:37] LABS: INR 0.92; PROTHROMBIN TIME 12.9 seconds (11.9-14.5)
[2018-05-29 00:38] LABS: PARTIAL THROMBOPLASTIN TIME 27.8 seconds (23.8-35.5)
--- NOTE | 2018-05-29 00:53 | Diagnostic Imaging Report ---
EXAMINATION: CHEST SINGLE (PORTABLE) INDICATION: ^Chest pain, look for CHF, enlarge Mediastinum COMPARISON: Chest x-ray 04/10/2018 FINDINGS: AP view TUBES and LINES: Median sternotomy wires are again seen with fracture of the third wire. Mediastinal plates in the lower sternum remain unchanged. LUNGS: Lungs are moderately inflated. There are bibasilar atelectasis. There is mild prominence of the central pulmonary vasculature, consistent with pulmonary venous congestion. PLEURA: No pleural effusion or pneumothorax. HEART AND MEDIASTINUM: Cardiac size is mildly enlarged. BONES AND SOFT TISSUES: No acute osseous lesion. Anterior cervical fusion plate. Soft tissues are unremarkable. UPPER ABDOMEN: No free air under the diaphragm. IMPRESSION: Unchanged mild cardiomegaly with central pulmonary venous congestion and bibasilar atelectasis. Signed by: Dr. Augustine Bermudez M.D. on 05/29/2018 12:50 AM
[2018-05-29 00:56] LABS: ALANINE AMINOTRANSFERASE 31 IU/L (0-55); ALBUMIN 3.8 g/dL (3.5-5.0); ALBUMIN/GLOBULIN RATIO 1.2 (0.8-2.0); ALKALINE PHOSPHATASE 104 IU/L (40-150); ANION GAP 16.4 mmol/L (8-16); BLOOD UREA NITROGEN 19 mg/dL (7-26); BUN/CREATININE RATIO 15 (6-25); CALCIUM 9.6 mg/dL (8.4-10.2); CARBON DIOXIDE 28 mmol/L (22-29); CHLORIDE 97 mmol/L (98-107); CREATINE KINASE 97 IU/L (30-200); CREATININE, SERUM 1.26 mg/dL (0.72-1.25); EST GLOMERULAR FILTRATION RATE > 60 ML/MIN (60-); GLUCOSE 146 mg/dL (74-118); POTASSIUM 3.4 mmol/L (3.5-5.1); SODIUM 138 mmol/L (136-145)
[2018-05-29 00:58] LABS: CLARITY,URINE CLEAR (CLEAR); COLOR,URINE YELLOW (YELLOW); LEUKOCYTE ESTERASE ,URINE NEGATIVE (NEGATIVE); NITRITE,URINE NEGATIVE (NEGATIVE)
[2018-05-29 00:59] LABS: AMPHETAMINES SCREEN,URINE NEGATIVE (NEGATIVE); BENZODIAZEPINES SCREEN,URINE NEGATIVE (NEGATIVE); BILIRUBIN,URINE NEGATIVE (NEGATIVE); KETONES,URINE NEGATIVE (NEGATIVE); PHENCYCLIDINE SCREEN,URINE NEGATIVE (NEGATIVE); PROTEIN,URINE DIPSTICK NEGATIVE (NEGATIVE); URINE UROBILINOGEN 0.2 mg/dL (0.2 - 1)
[2018-05-29 01:14] LABS: RBC,URINE 0-5 /HPF (0-5); WBC,URINE (MAN) 0-5 /HPF (0-5)
[2018-05-29 01:15] LABS: EPITHELIAL CELLS,URINE RARE /LPF
[2018-05-29 01:43] VITALS: BP 115/65
== END 2018-05-29 02:41 | disposition home or self-care (01) ==
LOC: ER 00:03
DX: R07.89 Other chest pain (principal); I10 Essential (primary) hypertension; I51.9 Heart disease, unspecified; I25.10 Atherosclerotic heart disease of native coronary artery without angina pectoris; I50.9 Heart failure, unspecified; E66.01 Morbid (severe) obesity due to excess calories
CPT/HCPCS: 36415; 71045; 80053; 80307; 81001; 82550; 82553; 83690; 83880; 84484; 85025; 85610; 85730; 93005; 99284

== ENCOUNTER 2018-10-22 17:48 | Observation (INO) | payer OTHER ==
[~2018-10-22] VITALS: Ht 188 cm; Wt 186.4 kg
--- OUTSIDE RECORDS SUMMARY | 2018-10-22 17:51 | XMS REPORT | Clinical Summary ---
Author Author [facility] Organization [facility] Address Unknown Phone Unavailable Care Team Providers Care Special Makeup Fx Artist Instructor Name Role Phone PCP Unavailable Allergies Comments [...] 04/24/2018 Therapy Physical Therapy 04/24/2018 Travel after 10/21/2017 Social History Date Tobacco Use Types Packs/Day Years Used Never Assessed Sex Assigned at Date Recorded Not on file Industry Job Start Date Occupation Not on file Not on file Not on file Travel End Travel History Travel Start No recent travel history available. 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 COMMUNITY Present [id number] [place] [address] Advance Directives Date Inactivated Comments Code Status Date Activated 07/04/2010 9:05 PM Full Code 07/03/2010 10:11 AM
--- OUTSIDE RECORDS SUMMARY | 2018-10-22 17:52 | XMS REPORT | Clinical Summary ---
Author Author [facility] Organization [facility] Address Unknown Phone Unavailable Care Team Providers Care Junior Underwriter Name Role Phone Janet Stewart MD PCP Unavailable Allergies Comments Active Allergy Reactions Severity Noted Date Ampicillin Rash Low 01/21/2016 Baclofen 12/25/2016 Prochlorperazine 01/05/2017 Edisylate Cyclobenzaprine 12/25/2016 Caused nausea and Syncope ( When he passed out he broke his neck ) [place] Analogues 01/05/2017 Metoclopramide Hcl Rash Low 01/22/2016 [...] times daily. Max Daily Amount: 200 mg Active Problems Problem Noted Date Bilateral swelling of feet 01/22/2016 Chest pain 01/21/2016 Precordial pain 01/21/2016 Family History Medical History Relation [...] Signs Not on file Plan of Treatment Not on file Results Not on fileafter 10/21/2017 Insurance Payer Benefit Subscriber ID Type Phone Address Plan / Group MEDICAID - MEDICAID [facility] xxxxxxxxx Medicaid CARE COMM [employer]AR Contracted PLAN
--- OUTSIDE RECORDS SUMMARY | 2018-10-22 17:52 | XMS REPORT | Clinical Summary ---
Author Author [facility] Organization [facility] Address Unknown Phone Unavailable Care Team Providers Care Crisis Clinician Name Role Phone Asked, No Pcp PCP Unavailable Allergies Comments Active Allergy Reactions Severity Noted Date Ampicillin Rash Low 01/21/2016 Gabapentin 05/02/2018 Ears ring Morphine Other (See 12/22/2017 Comments) Pt notified he cannot take norco as its one of his previous allergy . Ok to take tylenol with codeine no reaction Hydrocodone-Acetaminophen Rash Low 12/22/2017 Paper tape Other 10/23/2015 Metoclopramide Hcl Rash Low 01/22/2016 Ketorolac 05/02/2018 Tramadol 12/22/2017 Ondansetron Hcl Rash Low 10/23/2015 Medications End Date Status Medication Sig Dispensed Refills Start Date Active furosemide (LASIX) 40 mg Take 40 mg by 0 tablet mouth 2 (two) times a day. Active atorvastatin (LIPITOR) 40 Take 40 mg by 0 MG tablet mouth 6 nightly. Active pantoprazole (PROTONIX) Take 20 mg by 1 40 MG EC tablet mouth every 7 morning. Active nitroglycerin (NITROSTAT) Place 0.4 mg 0 0.4 MG SL tablet under the tongue every 5 (five) minutes as needed for chest pain. Active metoprolol tartrate Take 25 mg by 0 (LOPRESSOR) 25 mg tablet mouth 2 (two) times a day. Active levETIRAcetam (KEPPRA) Take 500 mg 0 500 MG tablet by mouth 2 (two) times a day. Active pregabalin (LYRICA) 100 Take 100 mg 0 MG capsule by mouth 2 (two) times a day. Active ranolazine (RANEXA) 500 Take 500 mg 0 MG 12 hr ER tablet by mouth 2 (two) times a day. Active fenofibrate (TRICOR) 145 Take 145 mg 0 MG tablet by mouth every morning. Active rivaroxaban (XARELTO) 20 Take 20 mg by 0 mg tablet mouth every evening. Active traZODone (DESYREL) 150 Take 150 mg 0 MG tablet by mouth nightly as needed. Active hyoscyamine Take 0.125 mg 0 (ANASPAZ,LEVSIN) 0.125 mg by mouth tablet every 4 (four) hours as needed (nausea). Active carisoprodol (SOMA) 350 Take 350 mg 0 MG tablet by mouth every 8 (eight) hours as needed for muscle spasms. Active albuterol (PROAIR Inhale 2 0 HFA,PROVENTIL puffs every 4 HFA,VENTOLIN HFA) 90 (four) hours mcg/actuation inhaler as needed for wheezing or shortness of breath. Active promethazine (PHENERGAN) Take 25 mg by 0 25 MG tablet mouth every 6 (six) hours as needed for nausea or vomiting (congestion). Active potassium chloride Take 20 mEq 0 (KLOR-CON) 20 mEq packet by mouth every morning. Active clonAZEPAM (KlonoPIN) 1 Take 1 mg by 0 MG tablet mouth 2 (two) times a day as needed for seizures. 05/04/2019 Active metFORMIN (GLUCOPHAGE) Take 1 tablet 60 tablet 11 500 mg tablet (500 mg 9 total) by mouth 2 (two) times a day with meals. 12/24/2017 Discontinued aspirin (ECOTRIN) 325 MG Take 325 mg 0 enteric coated tablet by mouth daily. 03/10/2018 Discontinued enoxaparin (LOVENOX) 150 Inject 150 mg 0 mg/mL injection under the skin daily. 03/10/2018 Discontinued clopidogrel (PLAVIX) 75 Take 75 mg by 0 mg tablet mouth daily. 05/04/2018 Discontinued (Stop Taking at Discharge) metFORMIN (GLUCOPHAGE) Take 1,000 mg 0 1,000 mg tablet by mouth 2 (two) times a day with meals. 03/10/2018 Discontinued QUEtiapine (SEROquel) 400 Take 800 mg 0 MG tablet by mouth nightly. 05/02/2018 Discontinued (Med List Cleanup) gabapentin (NEURONTIN) Take 300 mg 0 300 mg capsule by mouth 3 (three) times a day as needed (pain). 03/10/2018 Discontinued fluticasone-vilanterol Inhale 1 0 (BREO ELLIPTA) 100-25 inhalations mcg/dose blister with daily. device powder for inhalation 03/10/2018 Discontinued (Stop Taking at Discharge) isosorbide mononitrate Take 30 mg by 0 (IMDUR) 30 MG 24 hr mouth daily. tablet 05/02/2018 Discontinued (Med List Cleanup) acetaminophen-codeine Take 1 tablet 0 (TYLENOL WITH CODEINE #4) by mouth 300-60 mg per tablet every 4 (four) hours as needed for moderate pain. 05/02/2018 Discontinued (Med List Cleanup) ibuprofen (ADVIL,MOTRIN) Take 800 mg 0 800 MG tablet by mouth every 8 (eight) hours as needed for mild pain. 01/23/2018 aspirin (ECOTRIN) 81 MG Take 1 [...] (three) times a day for 7 days. 05/02/2018 Discontinued (Med List Cleanup) DULoxetine (CYMBALTA) 20 Take 40 mg by 0 MG capsule mouth 2 (two) times a day. 03/10/2018 Discontinued lamoTRIgine (LaMICtal) 25 Take 25 mg by 0 MG tablet mouth 2 (two) times a day. 05/02/2018 Discontinued (Med List Cleanup) meloxicam (MOBIC) 15 mg Take 15 mg by 0 tablet mouth daily. 03/10/2018 Discontinued risperiDONE (RisperDAL) Take 0.5 mg 0 0.5 MG tablet by mouth 2 (two) times a day. 05/02/2018 Discontinued (Med List Cleanup) doxepin (SINEquan) 100 MG Take 100 mg 0 capsule by mouth nightly. 05/02/2018 Discontinued (Med List Cleanup) clonAZEPAM (KlonoPIN) 0.5 Take 0.5 mg 0 MG tablet by mouth 2 (two) times a day as needed for anxiety. 05/02/2018 Discontinued (Med List Cleanup) cyclobenzaprine Take 10 mg by 0 (FLEXERIL) 10 mg tablet mouth every 8 (eight) hours as needed for muscle spasms. 05/02/2018 Discontinued (Med List Cleanup) lactulose 20 gram/30 mL Take 10 g by 0 solution mouth 2 (two) times a day as needed (constipation ). 03/10/2018 Discontinued hydrOXYzine (ATARAX) 25 Take 50 mg by 0 MG tablet mouth every 8 (eight) hours as needed for anxiety. 04/09/2018 ipratropium-albuterol Take 3 mL by 30 mL 0 (DUO-NEB) 0.5-2.5 mg/mL nebulization 9 nebulizer every 4 (four) hours as needed for wheezing for up to 30 days. 04/09/2018 clopidogrel (PLAVIX) 75 Take 1 tablet 30 tablet 0 mg tablet (75 mg total) 9 by mouth daily for 30 days. 04/09/2018 aspirin (ECOTRIN) 81 MG Take 1 tablet 30 tablet 0 enteric coated tablet (81 mg total) 9 by mouth daily for 30 days. 04/09/2018 isosorbide mononitrate Take 1 tablet 30 tablet 0 (IMDUR) 60 MG 24 hr (60 mg total) 9 tablet by mouth daily for 30 days. 05/04/2018 Discontinued (Stop Taking at Discharge) isosorbide mononitrate Take 30 mg by 0 (IMDUR) 30 MG 24 hr mouth every tablet morning. 06/03/2018 insulin GLARGINE (LANTUS) Inject 50 15 mL 0 100 unit/mL injection Units under 9 (vial) the skin nightly for 30 days. 05/08/2018 levoFLOXacin (LEVAQUIN) Take 1 tablet 4 tablet 0 500 MG tablet (500 mg 9 total) by mouth daily for 4 days. 05/09/2018 methylPREDNISolone follow 21 tablet 0 (MEDROL DOSEPAK) 4 mg package 9 tablet directions Active Problems Problem Noted Date Chest pain, rule out acute myocardial infarction 05/03/2018 CHF (congestive heart failure) 03/06/2018 Bilateral swelling of feet 01/22/2016 Precordial pain 01/21/2016 Chest pain 01/21/2016 Encounters Care Team Description Date Type Specialty Pepito Slade MD Hyperglycemia (Primary Dx); Other chest pain; Left leg swelling; Right leg swelling; Abdominal fullness 09/24/2018 Emergency Emergency Medicine - 09/25/2018 Alexandre Blackmon DO Keller, Jason James, [employer] Contusion of left great toe without damage to nail, initial encounter (Primary Dx); Chronic chest pain; Personality disorder (HCC) 05/17/2018 Emergency Emergency Medicine Jayden Broderick MD Alberto, Paul, MD Chest pain, unspecified type (Primary Dx) 05/01/2018 Hospital General Surgery - Encounter 05/04/2018 Patel Hammonds MD Cv right heart cath [[id number] (CPT)] 03/10/2018 Surgery Procedural Cardiology Behzad Samano MD Yerramadha, Muralidhar Reddy, MD Acute on chronic diastolic congestive heart failure (HCC) (Primary Dx); Chest pain, unspecified type; PALLAVI (obstructive sleep apnea); Morbid obesity due to excess calories (HCC); Precordial pain; Bilateral swelling of feet 03/03/2018 Hospital General Surgery - Encounter 03/10/2018 Farzad Santos MD CV LEFT HEART CATH LV GRAM WITH CORS [[id number] (CPT)] 12/24/2017 Surgery Procedural Cardiology Zaid Russell MD Bavare, Arusha Amod, MD Yerramadha, Muralidhar Reddy, MD Chest pain, unspecified type (Primary Dx); Cutaneous abscess of abdominal wall; Precordial pain; Bilateral swelling of feet 12/22/2017 Emergency General Internal Medicine - 12/24/2017 after 10/21/2017 Family History Medical History Relation Name Comments [...] Used Comments: prev 2-3 packs per day Drinks/Week oz/Week Comments Alcohol Use Defer Sex Assigned at Date Recorded Not on file Industry Job Start Date Occupation Not on file Not on file Not on file Travel End Travel History Travel Start No recent travel history available. Last Filed Vital Signs Reading Time Taken Comments Vital Sign 98/51 09/24/2018 10:15 PM CDT Blood Pressure 99 09/24/2018 10:15 PM CDT Pulse 36.8 C (98.3 F) 09/24/2018 10:15 PM CDT Temperature 22 09/24/2018 10:15 PM CDT Respiratory Rate 95% 09/24/2018 10:15 PM CDT Oxygen Saturation - - Inhaled Oxygen Concentration 195 kg (430 lb) 05/17/2018 4:27 PM CDT Weight 188 cm (6' 2") 09/24/2018 7:32 PM CDT Height 55.21 05/17/2018 4:27 PM CDT Body Mass Index Plan of Treatment Health Maintenance Due Date Last Done Comments INFLUENZA VACCINE 09/18/2018 Implants Device Identifier Shelf Expiration Date Model / Serial / Lot Implanted Type Area Manufactur er 08/17/2018 [id number] / / [id number] Device Vasclr Clsr Vasoactive Cardiovasc Right: Groin Intstnl Peptd 6fr Angio-Seal - ular [id number] Implants Implanted: Qty: 1 on 12/24/2017 by Farzad Santos MD at [facility] . Description:plate in the neck Procedures Comments Procedure Name Priority Date/Time Associated Diagnosis ESTIMATED GFR STAT 09/24/2018 8:52 PM CDT B NATRIURETIC PEPTIDE STAT 09/24/2018 8:52 PM CDT TROPONIN STAT 09/24/2018 8:52 PM CDT PARTIAL THROMBOPLASTIN STAT 09/24/2018 TIME (PTT) 8:52 PM CDT PROTHROMBIN TIME WITH INR STAT 09/24/2018 8:52 PM CDT COMPREHENSIVE METABOLIC STAT 09/24/2018 PANEL 8:52 PM CDT HC COMPLETE BLD COUNT STAT 09/24/2018 W/AUTO DIFF 8:52 PM CDT XR CHEST 1 VW STAT 09/24/2018 8:10 PM CDT POC GLUCOSE Routine 09/24/2018 7:35 PM CDT ECG 12-LEAD STAT 09/24/2018 7:32 PM CDT ECG ED PRELIMINARY Routine 09/24/2018 INTERPRETATION 7:32 PM CDT ECG ED PRELIMINARY Routine 05/17/2018 INTERPRETATION 8:57 PM CDT MAGNESIUM LEVEL STAT 05/17/2018 6:15 PM CDT CREATINE KINASE, TOTAL STAT 05/17/2018 (CPK) 6:15 PM CDT PARTIAL THROMBOPLASTIN STAT 05/17/2018 TIME (PTT) 6:15 PM CDT PROTHROMBIN TIME WITH INR STAT 05/17/2018 6:15 PM CDT XR TOE 2+ VW LEFT STAT 05/17/2018 6:05 PM CDT XR CHEST 2 VW STAT 05/17/2018 6:05 PM CDT ESTIMATED GFR STAT 05/17/2018 4:54 PM CDT B NATRIURETIC PEPTIDE STAT 05/17/2018 4:54 PM CDT TROPONIN STAT 05/17/2018 4:54 PM CDT COMPREHENSIVE METABOLIC STAT 05/17/2018 PANEL 4:54 PM CDT HC COMPLETE BLD COUNT STAT 05/17/2018 W/AUTO DIFF 4:54 PM CDT ECG 12-LEAD STAT 05/17/2018 4:37 PM CDT POC GLUCOSE Routine 05/04/2018 11:59 AM CDT POC GLUCOSE Routine 05/04/2018 6:30 AM CDT ESTIMATED GFR Routine 05/04/2018 5:35 AM CDT BASIC METABOLIC PANEL Routine 05/04/2018 5:35 AM CDT HC COMPLETE BLD COUNT Routine 05/04/2018 W/AUTO DIFF 5:35 AM CDT POC GLUCOSE Routine 05/04/2018 12:55 AM CDT POC GLUCOSE Routine 05/03/2018 9:12 PM CDT POC GLUCOSE Routine 05/03/2018 5:21 PM CDT POC GLUCOSE Routine 05/03/2018 3:35 PM CDT POC GLUCOSE Routine 05/03/2018 12:00 PM CDT POC GLUCOSE Routine 05/03/2018 9:44 AM CDT POC GLUCOSE Routine 05/03/2018 7:08 AM CDT HEMOGLOBIN A1C Routine 05/03/2018 5:32 AM CDT ESTIMATED GFR Routine 05/03/2018 5:32 AM CDT BASIC METABOLIC PANEL Routine 05/03/2018 5:32 AM CDT HC COMPLETE BLD COUNT Routine 05/03/2018 W/AUTO DIFF 5:32 AM CDT ESTIMATED GFR Routine 05/02/2018 6:10 AM CDT BASIC METABOLIC PANEL Routine 05/02/2018 6:10 AM CDT TROPONIN Timed 05/02/2018 6:10 AM CDT ECG 12-LEAD Routine 05/02/2018 4:18 AM CDT TROPONIN Timed 05/02/2018 3:20 AM CDT XR CHEST 1 VW PORTABLE STAT 05/01/2018 11:08 PM CDT ESTIMATED GFR STAT 05/01/2018 10:52 PM CDT B NATRIURETIC PEPTIDE STAT 05/01/2018 10:52 PM CDT TROPONIN STAT 05/01/2018 10:52 PM CDT HC COMPLETE BLD COUNT STAT 05/01/2018 W/AUTO DIFF 10:52 PM CDT BASIC METABOLIC PANEL STAT 05/01/2018 10:52 PM CDT ECG ED PRELIMINARY Routine 05/01/2018 INTERPRETATION 10:48 PM CDT ECG 12-LEAD STAT 05/01/2018 10:45 PM CDT CV RIGHT HEART CATH Routine 03/10/2018 3:08 PM CLASSIFICATIONS OFFICER CC/CM POC CG8, ARTERIAL Routine 03/10/2018 2:55 PM CLASSIFICATIONS OFFICER CC/CM POC CG8, ARTERIAL Routine 03/10/2018 2:44 PM CLASSIFICATIONS OFFICER CC/CM ESTIMATED GFR Routine 03/10/2018 7:10 AM CLASSIFICATIONS OFFICER CC/CM HC COMPLETE BLD COUNT Routine 03/10/2018 W/AUTO DIFF 7:10 AM CLASSIFICATIONS OFFICER CC/CM BASIC METABOLIC PANEL Routine 03/10/2018 7:10 AM CLASSIFICATIONS OFFICER CC/CM TYPE AND SCREEN Routine 03/10/2018 12:10 AM CLASSIFICATIONS OFFICER CC/CM ARTERIAL BLOOD GAS Routine 03/08/2018 5:01 PM CLASSIFICATIONS OFFICER CC/CM ESTIMATED GFR Routine 03/07/2018 5:50 AM CLASSIFICATIONS OFFICER CC/CM MAGNESIUM LEVEL Routine 03/07/2018 5:50 AM CLASSIFICATIONS OFFICER CC/CM BASIC METABOLIC PANEL Routine 03/07/2018 5:50 AM CLASSIFICATIONS OFFICER CC/CM XR CHEST 1 VW PORTABLE Routine 03/06/2018 6:45 AM CLASSIFICATIONS OFFICER CC/CM ESTIMATED GFR Routine 03/06/2018 5:05 AM CLASSIFICATIONS OFFICER CC/CM MAGNESIUM LEVEL Routine 03/06/2018 5:05 AM CLASSIFICATIONS OFFICER CC/CM BASIC METABOLIC PANEL Routine 03/06/2018 5:05 AM CLASSIFICATIONS OFFICER CC/CM ESTIMATED GFR Routine 03/05/2018 4:16 AM CLASSIFICATIONS OFFICER CC/CM MAGNESIUM LEVEL Routine 03/05/2018 4:16 AM CLASSIFICATIONS OFFICER CC/CM BASIC METABOLIC PANEL Routine 03/05/2018 4:16 AM CLASSIFICATIONS OFFICER CC/CM ESTIMATED GFR Routine 03/04/2018 6:08 PM CLASSIFICATIONS OFFICER CC/CM MAGNESIUM LEVEL Routine 03/04/2018 6:08 PM CLASSIFICATIONS OFFICER CC/CM BASIC METABOLIC PANEL Routine 03/04/2018 6:08 PM CLASSIFICATIONS OFFICER CC/CM GRAM STAIN STAT 03/04/2018 8:34 AM CLASSIFICATIONS OFFICER CC/CM URINE CULTURE STAT 03/04/2018 8:34 AM CLASSIFICATIONS OFFICER CC/CM URINALYSIS SCREEN AND STAT 03/04/2018 MICROSCOPY, WITH REFLEX 7:40 AM CLASSIFICATIONS OFFICER CC/CM TO CULTURE ESTIMATED GFR Timed 03/04/2018 3:10 AM CLASSIFICATIONS OFFICER CC/CM BASIC METABOLIC PANEL Timed 03/04/2018 3:10 AM CLASSIFICATIONS OFFICER CC/CM HC COMPLETE BLD COUNT Timed 03/04/2018 W/AUTO DIFF 3:10 AM CLASSIFICATIONS OFFICER CC/CM TROPONIN Timed 03/04/2018 3:10 AM CLASSIFICATIONS OFFICER CC/CM ECG 12-LEAD Routine 03/04/2018 1:27 AM CLASSIFICATIONS OFFICER CC/CM TROPONIN Timed 03/04/2018 12:31 AM CLASSIFICATIONS OFFICER CC/CM XR CHEST 1 VW PORTABLE STAT 03/03/2018 9:26 PM CLASSIFICATIONS OFFICER CC/CM ECG 12-LEAD STAT 03/03/2018 9:08 PM CLASSIFICATIONS OFFICER CC/CM D-DIMER STAT 03/03/2018 9:08 PM CLASSIFICATIONS OFFICER CC/CM ESTIMATED GFR STAT 03/03/2018 9:08 PM CLASSIFICATIONS OFFICER CC/CM B NATRIURETIC PEPTIDE STAT 03/03/2018 9:08 PM CLASSIFICATIONS OFFICER CC/CM TROPONIN STAT 03/03/2018 9:08 PM CLASSIFICATIONS OFFICER CC/CM COMPREHENSIVE METABOLIC STAT 03/03/2018 PANEL 9:08 PM CLASSIFICATIONS OFFICER CC/CM PARTIAL THROMBOPLASTIN STAT 03/03/2018 TIME (PTT) 9:08 PM CLASSIFICATIONS OFFICER CC/CM PROTHROMBIN TIME WITH INR STAT 03/03/2018 9:08 PM CLASSIFICATIONS OFFICER CC/CM HC COMPLETE BLD COUNT STAT 03/03/2018 W/AUTO DIFF 9:08 PM CLASSIFICATIONS OFFICER CC/CM ECG ED PRELIMINARY Routine 03/03/2018 INTERPRETATION 9:06 PM CLASSIFICATIONS OFFICER CC/CM CV LEFT HEART CATH LV Routine 12/24/2017 GRAM WITH CORS 10:16 AM CLASSIFICATIONS OFFICER CC/CM ECG 12-LEAD Routine 12/24/2017 7:03 AM CLASSIFICATIONS OFFICER CC/CM ESTIMATED GFR Routine 12/24/2017 5:00 AM CLASSIFICATIONS OFFICER CC/CM HC COMPLETE BLD COUNT Routine 12/24/2017 W/AUTO DIFF 5:00 AM CLASSIFICATIONS OFFICER CC/CM BASIC METABOLIC PANEL Routine 12/24/2017 5:00 AM CLASSIFICATIONS OFFICER CC/CM TYPE AND SCREEN Routine 12/24/2017 5:00 AM CLASSIFICATIONS OFFICER CC/CM PARTIAL THROMBOPLASTIN Routine 12/24/2017 TIME (PTT) 5:00 AM CLASSIFICATIONS OFFICER CC/CM PROTHROMBIN TIME WITH INR Routine 12/24/2017 5:00 AM CLASSIFICATIONS OFFICER CC/CM TROPONIN Timed 12/23/2017 6:57 PM CLASSIFICATIONS OFFICER CC/CM NM MYOCARDIAL PERFUSION Routine 12/23/2017 STRESS ONLY 2:52 PM CLASSIFICATIONS OFFICER CC/CM CV STRESS TEST NUCLEAR Routine 12/23/2017 CARDIO 2:52 PM CLASSIFICATIONS OFFICER CC/CM TROPONIN Timed 12/23/2017 1:57 PM CLASSIFICATIONS OFFICER CC/CM ECHOCARDIOGRAM 2D Routine 12/22/2017 COMPLETE W MMODE SPECTRAL 6:32 PM CLASSIFICATIONS OFFICER CC/CM COLOR DOPPLER (17356) TROPONIN Timed 12/22/2017 10:58 AM CLASSIFICATIONS OFFICER CC/CM TROPONIN Timed 12/22/2017 6:15 AM CLASSIFICATIONS OFFICER CC/CM CT ANGIOGRAM PE CHEST STAT 12/22/2017 5:48 AM CLASSIFICATIONS OFFICER CC/CM ECG 12-LEAD STAT 12/22/2017 4:28 AM CLASSIFICATIONS OFFICER CC/CM XR CHEST 1 VW PORTABLE STAT 12/22/2017 3:52 AM CLASSIFICATIONS OFFICER CC/CM ESTIMATED GFR STAT 12/22/2017 3:36 AM CLASSIFICATIONS OFFICER CC/CM B NATRIURETIC PEPTIDE STAT 12/22/2017 3:36 AM CLASSIFICATIONS OFFICER CC/CM TROPONIN STAT 12/22/2017 3:36 AM CLASSIFICATIONS OFFICER CC/CM LIPASE LEVEL STAT 12/22/2017 3:36 AM CLASSIFICATIONS OFFICER CC/CM HEPATIC FUNCTION PANEL STAT 12/22/2017 3:36 AM CLASSIFICATIONS OFFICER CC/CM BASIC METABOLIC PANEL STAT 12/22/2017 3:36 AM CLASSIFICATIONS OFFICER CC/CM HC COMPLETE BLD COUNT STAT 12/22/2017 W/AUTO DIFF 3:36 AM CLASSIFICATIONS OFFICER CC/CM ECG ED PRELIMINARY Routine 12/22/2017 INTERPRETATION 3:28 AM CLASSIFICATIONS OFFICER CC/CM after 10/21/2017 Results * Estimated GFR (09/24/2018 8:52 PM CDT) Only the most recent of 15 results within the time period is included. Estimated GFR 71 mL/min/1.73 m2 [place] Comment: CONFUCIANIST CLEAR [facility] rpretation G1 >=90 Normal or high G2 60-89Mildly decreased [id number] Mildly to moderately decreased V1y53-20 Moderately to severely decreased G4 15-29Severely decreased G5 <15Kidney failure The eGFR was calculated using the Chronic Kidney Disease Epidemiology Collaboration (CKD-EPI) equation. Interpretation is based on recommendations of the National Kidney Foundation-Kidney Disease Outcomes Quality Initiative (NKF-KDOQI) published in 2014. Specimen Plasma specimen Performing Organization Address City/State/[place]code [place] [address] [place] [address] PATHOLOGY [facility] CONFUCIANIST [place] [address] [address] * Troponin (09/24/2018 8:52 PM CDT) Only the most recent of 13 results within the time period is included. Pathologist [facility] Troponin <0.006 0.000 - 0.040 ng/mL [place] Comment: ANTONIO GLOVER [facility] changed methodology effective: 06/24/2018 at 10:00 am The new method has a 99th percentile cutoff of 0.040 ng/mL Specimen Plasma specimen Performing Organization Address [facility] Phone Number [facility] DEPART[place] [address] [address] [place] [address] [address] * Partial thromboplastin time, activated (09/24/2018 8:52 PM CDT) Only the most recent of 4 results within the time period is included. Pathologist [facility] PTT 28.8 23.0 - 36.0 sec [place] Comment: ANTONIO GLOVER PTT therapeutic range for [facility] unfractionated heparin is 61.0-112.0 seconds which corresponds to Anti-Xa 0.3-0.7 U/ml. Specimen Blood Performing Organization Address [facility] Phone Number [facility] DEPARTMENT [place] [address] [address] [place] [address] [address] * Prothrombin time with INR (09/24/2018 8:52 PM CDT) Only the most recent of 4 results within the time period is included. Pathologist [facility] Prothrombin 12.5 11.5 - 14.5 sec [facility] INR 1.0 [place] Comment: ANTONIO GLOVER The International Normalized [facility] Ratio (INR) is a therapeutic monitoring tool for patients who are stable on oral anticoagulant therapy. An INR of 2.0-3.0 is suggested for deep vein thrombosis/pulmonary embolism. Specimen Blood Performing Organization Address [facility] Phone Number [facility] DEPARTMENT [place] [address] [place] [address] PATHOLOGY [facility] MEDICINE [place] CONFUCIANIST [place] [address] * CBC with platelet and differential (09/24/2018 8:52 PM CDT) Only the most recent of 10 results within the time period is included. WBC 7.66 4.50 - 11.00 k/uL [facility] RBC 4.07 (L) 4.40 - 6.00 m/uL [facility] HGB 12.4 (L) 14.0 - 18.0 g/dL [facility] HCT 37.7 (L) 41.0 - 51.0 % [facility] MCV 92.6 82.0 - 100.0 fL [facility] MCH 30.5 27.0 - 34.0 pg [facility] MCHC 32.9 31.0 - 37.0 g/dL [facility] RDW - SD 46.9 37.0 - 55.0 fL [facility] MPV 9.8 8.8 - 13.2 fL [facility] Platelet count 203 150 - 400 k/uL [facility] Nucleated RBC 0.30 /100 WBC [facility] Neutrophils 61.5 39.0 - 69.0 % [facility] Lymphocytes 26.8 25.0 - 45.0 % [facility] Monocytes 6.7 0.0 - 10.0 % [facility] Eosinophils 2.7 0.0 - 5.0 % [facility] Basophils 0.5 0.0 - 1.0 % [facility] Specimen Blood Performing Organization Address City/State/Zipcode Phone Number [facility] DEPARTMENT [place] [address] [address] [place] [phone] PATHOLOGY AND GENOMIC MEDICINE [place] [address] [address] * B natriuretic peptide (09/24/2018 8:52 PM CDT) Only the most recent of 5 results within the time period is included. BNP 25 0 - 100 pg/mL [facility] Specimen Blood Performing Organization Address City/[facility]/Zipcode Phone Number [facility] [place] [address] [address] [place] [phone] PATHOLOGY AND GENOMIC MEDICINE [facility] [address] [address] * Comprehensive metabolic panel (09/24/2018 8:52 PM CDT) Only the most recent of 3 results within the time period is included. Sodium 138 135 - 148 mEq/L [facility] Potassium 4.0 3.5 - 5.0 mEq/L [facility] Chloride 98 98 - 112 mEq/L [facility] CO2 29 24 - 31 mEq/L [facility] Anion gap 11@ANIO 7 - 15 mEq/L [facility] BUN 18 6 - 20 mg/dL [facility] Creatinine 1.20 0.70 - 1.20 mg/dL [facility] Glucose 268 (H) 65 - 99 mg/dL [facility] Calcium 9.2 8.3 - 10.2 mg/dL [facility] Protein 6.3 6.3 - 8.3 g/dL [place] Comment: [facility] 4.6-7.0 g/dL 1 week 4.4-7.6 g/dL 7 months-1year 5.1-7.3 g/dL 1-2 years5.6-7 .5 g/dL >3 years6.0-8 .0 g/dL 18-150 6.3-8.3 g/dL Albumin 3.6 3.5 - 5.0 g/dL [facility] A/G ratio 1.3 0.7 - 3.8 [facility] Alkaline 121 40 - 129 U/L [place] phosphatase [facility] AST 24 10 - 50 U/L [facility] ALT 21 5 - 50 U/L [facility] Total bilirubin 0.3 0.0 - 1.2 mg/dL [facility] Specimen Plasma specimen Performing Organization Address City/State/Zipcode [place] [address] [place] [phone] PATHOLOGY AND GENOMIC MEDICINE [facility] [address] [address] * XR Chest 1 Vw (09/24/2018 8:10 PM CDT) Specimen Narrative Performed At EXAMINATION:XR CHEST 1 VW RADIANT CLINICAL HISTORY:Chest painacutenonspecificlow prob CAD COMPARISON: May 17, 2018 . IMPRESSION: 1.Heart size is normal. Median sternotomy wires overlie the midline. 2.Interval left basilar atelectasis. 3.No pneumothorax. 4.Osseous structures are intact. [id number] Procedure Note Hm Interface, Radiology Results Incoming - 09/24/2018 8:24 PM CDT EXAMINATION: XR CHEST 1 VW CLINICAL HISTORY: Chest pain acute nonspecific low prob CAD COMPARISON: May 17, 2018 . IMPRESSION: 1. Heart size is normal. Median sternotomy wires overlie the midline. 2. Interval left basilar atelectasis. 3. No pneumothorax. 4. Osseous structures are intact. [id number] Performing Organization Address City/[facility]/Zipcode Phone Number [facility] [address] [place] [address] * POC glucose (09/24/2018 7:35 PM CDT) Only the most recent of 10 results within the time period is included. POC glucose 299 (H) 65 - 99 mg/dL [place] Comment: ANTONIO GLOVER Meter ID: [id number] [facility] Asphalt Heater Tender: Shun Garcia (TECH) Specimen Performing Organization Address City/[facility]/Zipcode [place] Number [place] [address] [place] [address] PATHOLOGY AND GENOMIC MEDICINE [place] ANTONIO GLOVER [address] [place] [address] [facility] * ECG 12 lead (09/24/2018 7:32 PM CDT) Only the most recent of 8 results within the time period is included. Ventricular 95 [facility] rate Atrial rate 95 [facility] UT interval 152 [facility] QRSD interval 92 [facility] QT interval 396 [facility] QTC interval 497 [facility] P axis 1 55 [facility] QRS axis 1 30 [facility] T wave axis 61 [facility] EKG impression Normal sinus rhythm-Prolonged [facility] QT Lateral infarct-Abnormal ECG-In automated comparison with ECG of 17-MAY-2018 16:37,-No significant change was found- Specimen Narrative Performed At Performing Organization Address [facility] Phone Number [facility] MUSE [address] [place] [address] * ECG ED Preliminary Interpretation - Not an Order (09/24/2018 7:32 PM CDT) Only the most recent of 5 results within the time period is included. Narrative Performed At Pepito Slade MD 09/25/2018 12:13 AM ECG ED Preliminary Interpretation - Not an Order Performed by: Pepito Slade MD Authorized by: Pepito Slade MD ECG reviewed by ED Physician in the absence of a human resources benefits specialist: yes (2007) Interpretation: Interpretation: normal Rate: ECG rate:95 ECG rate assessment: normal Rhythm: Rhythm: sinus rhythm Ectopy: Ectopy: none QRS: QRS axis:Normal QRS intervals:Normal Conduction: Conduction: normal ST segments: ST segments:Normal T waves: T waves: normal Other findings: Other findings: prolonged qTc interval * Magnesium level (05/17/2018 6:15 PM CDT) Only the most recent of 5 results within the time period is included. Magnesium 1.7 1.6 - 2.6 mg/dL [facility] Specimen Plasma specimen Performing Organization Address [facility] Phone Number [address] [place] [address] PATHOLOGY AND GENOMIC MEDICINE [address] * Creatine kinase, total (CPK) (05/17/2018 6:15 PM CDT) Creatine kinase 114 39 - 308 U/L [facility] Specimen Plasma specimen Performing Organization Address [facility] Phone Number [address] [place] [address] PATHOLOGY AND GENOMIC MEDICINE [address] * XR Toe 2+ Vw Left (05/17/2018 6:05 PM CDT) Specimen Narrative Performed At EXAMINATION:XR TOE 2VW LEFT [facility] CLINICAL HISTORY:left great toe injury TECHNIQUE:2views of left great toeobtained. COMPARISON:None. IMPRESSION: No acute fracture or dislocation identified. 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 Mild degenerative change of the IP joint of the hallux. [facility][id number] Procedure Note Interface, Radiology Results Incoming - 05/17/2018 7:02 PM CDT EXAMINATION: XR TOE 2 VW LEFT CLINICAL HISTORY: left great toe injury TECHNIQUE: 2 views of left great toe obtained. COMPARISON: None. IMPRESSION: No acute fracture or dislocation identified. 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 Mild degenerative change of the IP joint of the hallux. [facility]-[id number] Performing Organization Address [facility] Phone Number [facility] [address] [place] [address] * XR Chest 2 Vw (05/17/2018 6:05 PM CDT) Specimen Narrative Performed At EXAMINATION:XR CHEST 2 VW [facility] CLINICAL HISTORY:chest pain COMPARISON:05/01/2018. FINDINGS: Two views of the chest demonstrate normal cardiomediastinal silhouette. Pulmonary vasculature is within normal limits. Postsurgical change of median sternotomy is again noted. Both lungs are clear. No pleural disease is identified. Regional osseous structures is unremarkable. IMPRESSION: No radiographic evidence of acute cardiopulmonary process or active disease of the chest. [id number] Procedure Note Interface, Radiology Results Incoming - 05/17/2018 6:25 PM CDT EXAMINATION: XR CHEST 2 VW CLINICAL HISTORY: chest pain COMPARISON: 05/01/2018. FINDINGS: Two views of the chest demonstrate normal cardiomediastinal silhouette. Pulmonary vasculature is within normal limits. Postsurgical change of median sternotomy is again noted. Both lungs are clear. No pleural disease is identified. Regional osseous structures is unremarkable. IMPRESSION: No radiographic evidence of acute cardiopulmonary process or active disease of the chest. [id number] Performing Organization Address City/[facility]/Zipcode Phone Number [facility] [address] [place] [address] * Basic metabolic panel (05/04/2018 5:35 AM CDT) Only the most recent of 12 results within the time period is included. Sodium 132 (L) 135 - 148 mEq/L [facility] Potassium 4.8 3.5 - 5.0 mEq/L [facility] Chloride 94 (L) 98 - 112 mEq/L [facility] CO2 26 24 - 31 mEq/L [facility] Anion gap 12@ANIO 7 - 15 mEq/L [facility] BUN 22 (H) 6 - 20 mg/dL [facility] Creatinine 1.10 0.70 - 1.20 mg/dL [facility] Glucose 318 (H) 65 - 99 mg/dL [facility] Calcium 9.9 8.3 - 10.2 mg/dL [facility] Specimen Plasma specimen Performing Organization Address [facility] Phone Number [address] [place] [address] PATHOLOGY AND GENOMIC MEDICINE [address] * Hemoglobin A1c (05/03/2018 5:32 AM CDT) Hemoglobin A1C 6.5 (H) 4.0 - 6.0 % [place] Comment: CONFUCIANIST [facility] Less than 6% - Goal of therapy for Type II Diabetes Less than 7%-Goal of therapy for Type I Diabetes Less than 8%-Accepta ble control for Type I or Type II Diabetes Greater than 8%-Unacceptabl e control; action indicated. ([id number]) Specimen Blood Performing Organization Address [facility] Phone Number [address] [place] [address] PATHOLOGY AND GENOMIC MEDICINE [address] * XR Chest 1 Vw Portable (05/01/2018 11:08 PM CDT) Only the most recent of 4 results within the time period is included. Specimen Narrative Performed At EXAMINATION:XR CHEST 1 VW PORTABLE [facility] CLINICAL HISTORY:cp COMPARISON:03/06/2018 IMPRESSION: Prominence of the central peribronchial vascular markings is unchanged since a chest radiograph 12/22/2017. Allowing for portable technique, the lungs are otherwise grossly clear. The heart is not enlarged. There is no pneumothorax or obvious pleural effusion. There is no acute skeletal finding. [facility]-[id number] Procedure Note Interface, Radiology Results Incoming - 05/01/2018 11:31 PM CDT EXAMINATION: XR CHEST 1 VW PORTABLE CLINICAL HISTORY: cp COMPARISON: 03/06/2018 IMPRESSION: Prominence of the central peribronchial vascular markings is unchanged since a chest radiograph 12/22/2017. Allowing for portable technique, the lungs are otherwise grossly clear. The heart is not enlarged. There is no pneumothorax or obvious pleural effusion. There is no acute skeletal finding. [facility]-[id number] Performing Organization Address City/State/Zipcode Phone Number [facility] [address] [place] [address] * Cv parking lot laborer procedure (03/10/2018 3:08 PM CLASSIFICATIONS OFFICER CC/CM) Specimen Narrative Performed At Next Caller Lui Lopez 1970 [id number] 03/10/18 Indications: Pulmonary hypertension Procedures: RHC with cardiac output Closure: Manual compression Access site: Right internal jugular vein Procedure details: Risks and benefits were discussed with the patient, informed consent was obtained. Patient was brought to the parking lot laborer in a fasting state and prepped in a sterile manner. Patient was sedated with fentanyl and versed. The site was then infiltrated with 1% lidocaine.Right internal jugular vein was then accessed. A 6Fr balloon guided swan-krista catheter was then inserted into the venous sheath and directed toward the heart.Pressures were then measure.The catheter was then left at the PA position and thermodilution cardiac output was then measure.O2 sat was also obtained.The catheter was then removed from the body. RHC: CPWP: 13 mmHg PA: 31/10 mmHg Mean 20 RV: 35/5 mmHgMean 12 RA: 8 O2 sat: Arterial 93%; PA 59%; RA 54% C.O. 6.3 (T) 4.94 (F) C.I. 2.1 (T) 1.65 (F) P mmHg PVR: 1.11 TY Sheath was then removed and hemostasis was achieved with manual pressure. Patient tolerate the procedure well. Complication: There is no immediate complication EBL: 5 cc Impression: Normal pulmonary pressure.No evidence of pulmonary hypertension Plan: Medical therapy Flouro-time: 1.6 minutes Air Kerma: 110 mGy 03/10/18 Patel Hammonds MD Performing Organization Address City/[facility]/Zipcode Phone Number [facility] [address] [place] [address] * POC CG8, arterial (03/10/2018 2:55 PM CLASSIFICATIONS OFFICER CC/CM) Only the most recent of 2 results within the time period is included. Pathologist [facility] POC sodium 140 135 - 148 mmol/L [facility] POC potassium 3.6 3.5 - 5.0 mmol/L [facility] POC hematocrit 38 (L) 41 - 51 % [facility] Ionized 1.17 1.11 - 1.32 mmol/L [place] [facility] arterial, [facility] pH, arterial, 7.37 7.35 - 7.45 [facility] pCO2, arterial, 47 (H) 35 - 45 mm Hg [facility] pO2, arterial, 30 (LL)Comment: MD/RN aware of 80 - 90 mm Hg [place] POC results! [facility] O2 saturation, 54 (L) 95 - 100 % [place] arterial, [facility] Base excess, 2 -2 - 2 mmol/L [place] arterial, [facility] Bicarbonate, 27.4 21.0 - 28.0 mmol/L [place] [facility] CO2 calculated, 29 24 - 31 mmol/L [place] arterial, [facility] POC glucose 109 (H) 65 - 99 mg/dL [facility] Specimen Performing Organization Address [facility] Phone Number [facility] [place] [id number] [place] [address] [place] [address] PATHOLOGY AND GENOMIC MEDICINE [address] [place] [address] [facility] * Type and screen (03/10/2018 12:10 AM CLASSIFICATIONS OFFICER CC/CM) Only the most recent of 2 results within the time period is included. ABO grouping O [facility] Rh type NEG [facility] Antibody screen NEG [facility] Specimen Blood Performing Organization Address City/[facility] Phone Number [facility] [place] [id number] [place] [address] [place] [address] PATHOLOGY AND GENOMIC MEDICINE [address] * Arterial blood gas (03/08/2018 5:01 PM CLASSIFICATIONS OFFICER CC/CM) [facility] pH, arterial 7.44 7.35 - 7.45 [facility] pCO2, arterial 39 35 - 45 mmHg [facility] pO2, arterial 78 (L) 80 - 90 mmHg [facility] Bicarbonate, 26.5 21.0 - 28.0 mmol/L [facility] Base excess, 3 (H) -2 - 2 mEq/L [facility] O2 saturation, 97 95 - 100 % [facility] FiO2, inspired Unknown % [place] O2% [facility] Specimen Blood Performing Organization Address [facility] Phone Number [facility] DEPARTMENT [address] [place] [address] PATHOLOGY AND GENOMIC MEDICINE [address] * Gram stain (03/04/2018 8:34 AM CLASSIFICATIONS OFFICER CC/CM) [facility] Gram stain Moderate WBC's [place] result Few Gram positive rods CONFUCIANIST Comment: HOSPITAL Specimen Information Specimen Source: Urine Specimen Site: Catheterized Specimen Urine - Catheterized Performing Organization Address City/[facility] Phone Number [facility] [place] [address] PATHOLOGY AND GENOMIC MEDICINE [address] * Urine culture (03/04/2018 8:34 AM CLASSIFICATIONS OFFICER CC/CM) [facility] Urine culture Mixed erendira <=10-3 col/cc [place] isolate Comment: CONFUCIANIST Specimen Information HOSPITAL Specimen Source: Urine Specimen Site: Catheterized Specimen Urine - Catheterized Performing Organization Address City/[facility]/Zipcode Phone Number [facility] DEPARTMENT OF [address] [place] [address] PATHOLOGY AND GENOMIC MEDICINE [address] * Urinalysis screen and microscopy, with reflex to culture (03/04/2018 7:40 AM CLASSIFICATIONS OFFICER CC/CM) Pathologist [facility] Specimen site Catheterized [facility] Color, UA Yellow [facility] Appearance, UA Clear [facility] Specific 1.024 1.001 - 1.035 [place] gravity, UA [facility] pH, UA 5.0 5.0 - 8.5 [facility] Protein, UA Negative Negative [facility] Glucose, UA 3+ (A) Negative [facility] Ketones, UA Trace (A) Negative [facility] Bilirubin, UA Negative Negative [facility] Blood, UA Negative Negative [facility] Nitrite, UA Negative Negative [facility] Urobilinogen, Negative <2.0 [facility] Leukocyte Small (A) Negative [place] esterase, [facility] Epithelial Few /HPF [place] cells, UA [facility] Round Few 0 - 1 /HPF [place] epithelial CONFUCIANIST ST. cells, [facility] WBC, UA 6-10 (H) 0 - 1 /HPF [facility] RBC, UA 0-5 0 - 5 /HPF [facility] Bacteria, UA None seen None seen [facility] Yeast, UA None seen [facility] Yeast with None seen [place] [facility] Specimen Urine Performing Organization Address City/State/Zipcode [place] [address] [place] [address] PATHOLOGY AND GENOMIC MEDICINE [facility] [address] [place] [address] [facility] * D-dimer (03/03/2018 9:08 PM CLASSIFICATIONS OFFICER CC/CM) [facility] D-dimer <0.27 0.00 - 0.40 ug/mL [place] Comment: FEU [facility] Units are ug/ml Fibrinogen [facility] Equivalent Unit. When combined with low clinical probability, D-dimer results of less than 0.5 ug/ml FEU have a good negativepredictive value in excluding PE or DVT. For D-dimer results greater than 0.5ug/ml FEU further testing is indicated if PE or DVT is suspectedclinically. Elevated D-dimer results have been reported in DVT, PE, and DIC cases and may indicate the presence of a clot. D-dimer results may be elevated due to old age, , inflammatory diseases, trauma, post-operative states, sepsis, and malignancies. Specimen Blood Performing Organization Address City/State/Zipcode Phone Number [facility] [place] [address] [place] [address] PATHOLOGY AND GENOMIC MEDICINE [facility] [address] [place] [address] [facility] * Cv parking lot laborer procedure (12/24/2017 10:16 AM CLASSIFICATIONS OFFICER CC/CM) Specimen Narrative Performed At AMADEO Santos MD Physician Signed CardiologyBrief Op Note Date of Service: 12/24/2017 8:53 AM Case Time: 12/24/2017 8:53 AM Surgeon: Farzad Santos MD Procedure: CV LEFT HEART CATH LV GRAM WITH CORS Location: [facility] Industrial Relations Specialist Invasive Location []Hide copied text []Hover for attribution information Cardiac Catheterization Operative Note Lui Lopez,[id number] 47 y.o. male 12/24/2017; [facility] BLOOD COORDINATOR RM 1 Procedure(s): CV LEFT HEART CATH [...] consent patient was brought in to the parking lot laborer and was prepped and draped in [...] Implant Name Type Inv. Item Serial No. Nanny/Household Manager Lot No. LRB No. Used Action DEVICE VASCLR CLSR VASOACTIVE INTSTNL PEPTD 6FR ANGIO-SEAL - [id number] Cardiovascular Implants DEVICE VASCLR CLSR VASOACTIVE INTSTNL PEPTD 6FR ANGIO-SEAL [id number] Right 1 Implanted Impression: Normal coronaries Elevated LVEDP Farzad Santos MD Date: 12/24/2017Time: 10:06 AM Performing Organization Address [facility] Phone Number [facility] [address] [place] [address] * Cv stress test (12/23/2017 2:52 PM CLASSIFICATIONS OFFICER CC/CM) Resting BP [facility] Protocol Name CHRISTA [facility] Time in 00:03:16 [facility] Exercise Phase Max Systolic BP 146 [facility] Max Diastolic 86 [facility] BP Max Heart Rate 106 [facility] Max Predicted 173 [facility] Heart Rate Test Indication [facility] Arrhy During Ex [facility] ECG Interp [facility] Before EX ECG Interp [facility] During Ex Ex Summary [facility] Comment Overall HR [facility] Response to Exercise Overall BP [facility] Response To Exercise Reason for [facility] Termination Stress Test Reason for Termination: [facility] Impression -Comments: --Waveform interpreted in report associated with image study.No interpretation is provided as part of this Stress ECG report.-Electronically Signed By Tom LOGAN, Farzad ([id number]), production editor Merline Palmer ([id number]) on 12/24/2017 10:25:10 AM Specimen Performing Organization Address [facility] Phone Number [facility] MUSE [address] [place] [address] * Nm myocardial perfusion (12/23/2017 2:52 PM CLASSIFICATIONS OFFICER CC/CM) Target HR 173.00 bpm [facility] Resting HR 71 BPM [facility] Resting BP 143/96 mmHg [facility] Specimen Narrative Performed At [facility] Study Quality: [...] Address City/State/Zipcode Phone Number [facility] [address] [place] [address] * Echocardiogram complete w contrast and 3D if needed (12/22/2017 6:32 PM CLASSIFICATIONS OFFICER CC/CM) Velocity Ratio 0.99 m/s [facility] (V1/V2) IVS,d 1.28 cm [facility] EF 61.32 % [facility] LA volume 70.00 cm3 [facility] LVPWD,d 1.88 cm [facility] AoV Mean PG 3.27 mmHg [facility] AV LVOT peak 6.18 mmHg [facility] gradient MV valve area p 3.96 cm2 [facility] 1/2 method E/A ratio 1.09 [facility] E wave 200.88 msec [facility] decelartion time LVOT Diam,S 2.42 cm [facility] LVOT area 4.60 cm2 [facility] LVOT Vmax 1.24 m/s [facility] LVOT VTI 0.26 m [facility] AoV Peak PG 6.28 mmHg [facility] MV Peak E Aly 0.95 m/s [facility] MV stenosis 55.55 ms [facility] pressure 1/2 time MV Peak A Aly 0.87 m/s [...] 2D 1.77 [facility] LA Ao Ratio 1.32 [facility] Mmode D E excurs 2.10 [facility] E f slope 0.06 [facility] E prime lat 0.10 [facility] E nabil sept 0.11 [facility] PV acc T slope 4.40 [facility] PV AT 154.14 msec [facility] AoV VTI 0.23 m [facility] LV EF,A2C 59.01 % [facility] LV EF,A4C 52.32 % [facility] LV EF,BP 54.62 % [facility] [place],d A2C 8.13 cm [facility] [place],d A4C 8.20 cm [facility] [place],s A2C 6.33 cm [facility] [place],s A4C 6.75 cm [facility] LV SV,A2C [...] MV Decel slope 4.73 m/s2 [facility] Specimen Narrative Performed At [facility] Left ventricular systolic function is normal. Left Ventricular ejection fraction is 55 - 60%. No pericardial effusion Mild pulmonary hypertension present. Performing Organization Address City/State/Zipcode Phone Number [facility] [address] [place] [address] * CT Angiogram Pe Chest (12/22/2017 5:48 AM CLASSIFICATIONS OFFICER CC/CM) Specimen Narrative Performed At EXAMINATION: CT ANGIOGRAM PE [...] enlarged. This is incompletely included in the [id number]. 9. Other Findings: None SUMMARY: 1. No CT scan evidence of acute pulmonary embolus. 2.Interstitial pulmonary congestion and mild pulmonary edema. No acute infiltrates. [facility]-[id number] Procedure Note Interface, Radiology Results [facility] - 12/22/2017 6:02 AM CLASSIFICATIONS OFFICER CC/CM EXAMINATION: CT ANGIOGRAM PE CHEST CLINICAL HISTORY: [...] enlarged. This is incompletely included in the [id number]. 9. Other Findings: None SUMMARY: 1. No CT scan evidence of acute pulmonary embolus. 2. Interstitial pulmonary congestion and mild pulmonary edema. No acute infiltrates. [id number] Performing Organization Address City/[facility]/Zipcode Phone Number [facility] [address] [place] [address] * Lipase level (12/22/2017 3:36 AM CLASSIFICATIONS OFFICER CC/CM) Pathologist [facility] Lipase 30 13 - 60 U/L [facility] DEPARTMENT OF PATHOLOGY AND GENOMIC MEDICINE Specimen Plasma specimen Performing Organization Address City/[facility]/[place] [address] PATHOLOGY AND [facility] * Hepatic function panel (12/22/2017 3:36 AM CLASSIFICATIONS OFFICER CC/CM) Pathologist [facility] Albumin 4.2 3.5 - 5.0 g/dL [facility] DEPARTMENT OF PATHOLOGY AND GENOMIC MEDICINE Total bilirubin 0.3 0.0 - 1.2 mg/dL [facility] DEPARTMENT OF PATHOLOGY AND GENOMIC MEDICINE Bilirubin <0.1 0.0 - 0.3 mg/dL [facility] direct DEPARTMENT OF PATHOLOGY AND GENOMIC MEDICINE Alkaline 86 40 - 129 U/L [facility] phosphatase DEPARTMENT OF PATHOLOGY AND [facility] MEDICINE Protein 7.2 6.3 - 8.3 g/dL [facility] Comment: DEPARTMENT OF PATHOLOGY AND 4.6-7.0 g/dL GENOMIC MEDICINE week 4.4-7.6 g/dL 7 months-1year 5.1-7.3 g/dL 1-2 years5.6-7 .5 g/dL >3 years6.0-8 .0 g/dL 18-150 6.3-8.3 g/dL ALT 24 5 - 50 U/L [facility] DEPARTMENT OF PATHOLOGY AND GENOMIC MEDICINE AST 35 10 - 50 U/L [facility] DEPARTMENT OF PATHOLOGY AND GENOMIC MEDICINE Specimen Plasma specimen Performing Organization Address City/State/Zipcode Phone Number [facility] [place] [address] [place] [address] PATHOLOGY AND GENOMIC MEDICINE after 10/21/2017 Insurance Type Payer Benefit Subscriber ID Effective Phone Address Plan / Dates Group [id number] xxxxxxxxx 2015- COMM STAR+ Present VIMAL Advance Directives For more information, please contact: [phone] Patient [employer]shore [employer] Explanation Type Date Recorded Advance Directives, 09/10/2015 12:22 AM Living Will and Medical Power of Manager Shift Advance Directives, 09/10/2015 6:44 PM Living Will and Medical Power of Manager Shift Advance Directives, 09/28/2015 11:18 PM Living Will and Medical Power of Manager Shift Advance Directives, 09/29/2015 5:04 PM Living Will and Medical Power of Manager Shift Advance Directives, 09/24/2018 7:54 PM Living Will and Medical Power of Manager Shift Date Inactivated Comments Code Status Date Activated 05/04/2018 6:07 PM Full Code 05/02/2018 1:33 AM Code Status decision reached by: Patient 03/10/2018 9:08 PM Full Code 03/04/2018 1:10 AM Code Status decision reached by: Patient 12/24/2017 7:48 PM Full Code 12/22/2017 10:39 AM Code Status decision reached by: Patient 01/24/2016 4:50 PM Full Code 01/22/2016 3:07 AM Code Status decision reached by: Patient
--- OUTSIDE RECORDS SUMMARY | 2018-10-22 17:53 | XMS REPORT | Clinical Summary ---
Author Author [facility] Organization [facility] Address Unknown Phone Unavailable Care Team Providers Care Cardroom Hand Name Role Phone PCP Unavailable Allergies Comments [...] by 30 Tab 0 mg tabletIndications: mouth daily 1 Pulmonary embolus [...] 04/24/2018 Therapy Physical Therapy 04/24/2018 Travel after 09/02/2017 Social History Date Tobacco Use Types Packs/Day Years Used Never Assessed Sex Assigned at Date Recorded Not on file Industry Job Start Date Occupation Not on file Not on file Not on file Travel End Travel History Travel Start No recent travel history available. Last Filed Vital Signs Reading Time Taken Comments Vital Sign 117/74 04/24/2018 2:06 PM [employer]GEMENT [employer]OC[employer]ATE Blood Pressure 81 04/24/2018 2:06 PM [employer] MANAGEMENT [employer]IATE Pulse - - Temperature - - Respiratory Rate 96% 04/24/2018 2:06 PM [employer]OR[employer] MANAGEMENT ASSOCIATE Oxygen Saturation - - Inhaled Oxygen Concentration - - Weight - - Height - - Body Mass Index Plan of Treatment Health Maintenance Due Date Last Done Comments IMM Influenza Seasonal 11/18/2018Nov to April (>/=19 yrs) Results Not on fileafter 09/02/2017 Insurance Type Payer Benefit Subscriber ID Effective Phone Address Plan / Dates Group [facility] xxxxxxxxx 2017- [phone] COMMUNITY Present [id number] [place] [address] Advance Directives Date Inactivated Comments Code Status Date Activated 07/04/2010 9:05 PM Full Code 07/03/2010 10:11 AM
--- OUTSIDE RECORDS SUMMARY | 2018-10-22 17:53 | XMS REPORT | Summary of Care ---
Author Author [facility] - Health Organization [facility] - Health Address Unknown Phone Unavailable Care Team Providers Care Disk Operator Name Role Phone Laura Holland PCP Reason for Referral * (Routine) Referred By Contact Referred To Contact Status Reason Specialty Diagnoses / Procedures Jasson Florez MD [address] [place] [phone] New Request IM-INTERVENTIONA Diagnoses L CARDIOLOGY Chest pain, unspecified type P rocedures Discharge Follow-Up: Specialty Service IM-INTERVENTIONAL CARDIOLOGY; 2 Weeks * (Routine) Referred By Contact Referred To Contact Status Reason Specialty Diagnoses / Procedures Myrtle Dhaliwal, CONTINUITY WRITER [address] [place] [address] Laura Holland [id number] [place] [address] New Request Diagnoses Chest pain, unspecified type P rocedures Discharge Follow-up: PCP LAURA HOLLAND; 2 Weeks * MRI/CAT Scan (STAT) Referred By Contact Referred To Contact Status Reason Specialty Diagnoses / Procedures Annette Gamboa MD [address] [facility] [address] [place] [address] New Request Diagnostic Diagnoses Radiology Chest pain, unspecified type P rocedures CT THORAX WO CONTRAST CT ANGIOGRAM CHEST CT THORAX W CONTRAST * Radiology Services (STAT) Referred By Contact Referred To Contact Status Reason Specialty Diagnoses / Procedures Annette Gamboa MD [address] [facility] [address] [place] [address] New Request Diagnostic Diagnoses Radiology Chest pain, unspecified type P rocedures Chest 1 View * Radiology Services (STAT) Referred By Contact Referred To Contact Status Reason Specialty Diagnoses / Procedures Annette Gamboa MD [address] [facility] [address] [place] [address] New Request Diagnostic Diagnoses Radiology Chest pain, unspecified type P rocedures Chest 1 View Reason for Visit * Reason Comments * Auth/Cert Referred By Contact Referred To Contact Status Reason Specialty Diagnoses / Procedures [facility] [address] [place] [address] Emergency Medicine Encounter Details Care Team Description Date Type Department Annette Gamboa MD [address] [facility] [address] [place], [place] [id number] Ana Bravo MD [address] [place] [address] Chest pain 09/19/2018 Emergency [facility] - Medicine/Surgery CLC 4A 09/20/2018 [address] [place] [address] Allergies Comments Active Allergy Reactions Severity Noted Date Ampicillin Unknown - See 06/19/2018 comments Gabapentin Unknown - See 06/19/2018 comments "merino my stomach" Hydrocodone-Acetaminophen Other - See 07/07/2018 comments Metoclopramide Hcl Unknown - See 06/19/2018 comments Ketorolac Tromethamine Hives 09/19/2018 Tramadol Unknown - See High 07/07/2018 comments Ondansetron Hcl (Pf) Itching 06/19/2018 documented as of this encounter (statuses as of 09/20/2018) Medications End Date Status Medication Sig Dispensed Refills Start Date Active DULoxetine 20 mg capsule Take 40 mg by 0 mouth 2 (two) times daily. Active isosorbide mononitrate 30 Take 30 mg by 0 mg 24 hr tablet mouth daily. Active levETIRAcetam (KEPPRA) Take 500 mg 0 500 mg tablet by mouth 2 (two) times daily. Active lamotrigine (LAMICTAL Take 25 mg by 0 ORAL) mouth 2 (two) times daily. Active pregabalin (LYRICA) 100 Take 100 mg 0 mg capsule by mouth 2 (two) times daily. Active meloxicam (MOBIC) 15 mg Take 15 mg by 0 tablet mouth as needed for Inflammation. Active pantoprazole 20 mg EC Take 40 mg by 0 tablet mouth daily. Active homeopathic drugs (RENEEL Take by 0 ORAL) mouth. Active risperiDONE (RISPERDAL) Take 0.5 mg 0 0.5 mg tablet by mouth 2 (two) times daily. Active doxepin 100 mg capsule Take 100 mg 0 by mouth at bedtime. Active traZODone 150 mg tablet Take 150 mg 0 by mouth at bedtime. Active Hyoscyamine Sulfate Take 0.125 mg 0 (ANASPAZ) 0.125 mg TbDL by mouth every 4 (four) hours as needed. Active cyclobenzaprine HCl Take 10 mg by 0 (FLEXERIL ORAL) mouth every 8 (eight) hours as needed. Active hydrOXYzine 50 mg capsule Take 50 mg by 0 mouth 3 (three) times daily as needed for Anxiety. Active albuterol (PROAIR HFA) 90 Inhale 2 0 mcg/actuation inhaler Puffs every 6 (six) hours as needed for Wheezing or Shortness of Breath. Active proMETHazine 25 mg tablet Take 25 mg by 0 mouth every 6 (six) hours as needed. Active furosemide 40 mg Take 1 tablet 120 tablet 3 tabletIndications: Other by mouth 3 9 chest pain, Acute on (three) times chronic congestive heart daily. failure, unspecified heart failure type Active atorvastatin 80 mg Take 1 tablet 30 tablet 0 tabletIndications: Chest by mouth 9 pain at rest every evening. Active insulin glargine 100 inject 20 10 mL 0 unit/mL Units under 9 injectionIndications: the skin Type 2 diabetes mellitus every 12 with complication, (twelve) without long-term current hours. use of insulin Active aspirin 81 mg chewable Take 81 mg by 0 tablet mouth daily. Active digoxin 125 mcg tablet Take 0.125 mg 0 by mouth daily. Active insulin lispro (HUMALOG inject under 0 KWIKPEN INSULIN SC) the skin before meals as needed (150-200 blood glucose - 4 units; 201-300 blood glucose - 6 units; 301-400 blood glucose - 8 units; 401 and above blood glucose call MD). Active KCL 10 mEq tablet Take 10 mEq 0 by mouth 2 (two) times daily. Active metFORMIN 1,000 mg tablet Take 1,000 mg 0 by mouth 2 (two) times daily with meals. Active spironolactone 50 mg Take 50 mg by 0 tablet mouth daily. Active rivaroxaban (XARELTO) 20 Take 20 mg by 0 mg tablet mouth every evening. Active Carisoprodol 250 mg Take 250 mg 0 tablet by mouth every 8 (eight) hours as needed (Muscle spasm). Active nitroglycerin 0.[address] 0.4 mg 0 sublingual tablet under the tongue every 5 (five) minutes as needed for Chest pain. Active Loperamide HCl (IMODIUM Take 2 mg by 0 A-D) 2 mg Tab tablet mouth 4 (four) times daily as needed for Other (Diarrhea). Active lactulose 10 gram/15 mL Take 30 mL by 0 oral solution mouth 2 (two) times daily as needed for Constipation. 10/20/2018 Active metoprolol tartrate 50 mg Take 1 tablet 60 tablet 0 tabletIndications: Chest by mouth 2 9 pain, unspecified type (two) times daily for 30 days. 09/20/2018 Discontinued carisoprodol 350 mg Take 350 mg 0 tablet by mouth every 8 (eight) hours as needed. 09/20/2018 Discontinued multivit with Take 30 mL by 0 iron,minerals (GENERIX T mouth 2 (two) ORAL) times daily as needed. 09/20/2018 Discontinued metoprolol tartrate 25 mg Take 25 mg by 0 tablet mouth 2 (two) times daily. 09/20/2018 Discontinued ALPRAZolam (XANAX) 2 mg Take 2 mg by 0 tablet mouth 2 (two) times daily as needed for Anxiety. 09/20/2018 Discontinued clopidogrel 75 mg tablet Take 75 mg by 0 mouth daily. documented as of this encounter (statuses as of 09/20/2018) Active Problems Problem Noted Date Tachycardia 09/05/2018 Chronic obstructive pulmonary disease with acute exacerbation 07/15/2018 Atrial fibrillation 07/15/2018 Hypokalemia 07/15/2018 Hypocalcemia 07/15/2018 Hypomagnesemia 07/15/2018 Chest pain 07/14/2018 HLD (hyperlipidemia) 07/14/2018 Hypothyroid 07/14/2018 Emphysema lung 07/14/2018 DM (diabetes mellitus) 07/14/2018 Chest pain due to coronary artery disease 07/07/2018 Chest pain at rest 06/29/2018 Morbid obesity with body mass index of 50 or higher 06/20/2018 documented as of this encounter (statuses as of 09/20/2018) Social History Date Tobacco Use Types Packs/Day Years Used Current Some Day Smoker Smokeless Tobacco: Never Used Comments: Pt. smokes 1-2 cigarettes a day. Attempted to quit with Chantix x 1 month ago. Drinks/Week oz/Week Comments Alcohol Use No Sex Assigned at Date Recorded Not on file Industry Job Start Date Occupation Not on file Not on file Not on file Travel End Travel History Travel Start No recent travel history available. documented as of this encounter Last Filed Vital Signs Reading Time Taken Comments Vital Sign 97/58 09/20/2018 8:00 AM CDT Blood Pressure 98 09/20/2018 8:00 AM CDT Pulse 35.2 C (95.4 F) 09/20/2018 8:00 AM CDT Temperature 18 09/20/2018 8:00 AM CDT Respiratory Rate 97% 09/20/2018 8:00 AM CDT Oxygen Saturation - - Inhaled Oxygen Concentration 197.6 kg (435 lb 11.2 oz) 09/20/2018 12:43 AM CDT Weight 188 cm (6' 2") 09/20/2018 12:48 AM CDT Height 55.94 09/20/2018 12:43 AM CDT Body Mass Index documented in this encounter Progress Notes * Carie Silva RN - 09/20/2018 12:20 PM CDT Care Management Discharge Disposition Note (DCDN) 5-2-1 Interventions: Disease specific education;Intensive medication reconciliat ion/management;Teach back;Clear discharge plan 5-2-1 Providers: Physician;Frog Farmer/Supervisor Carpenters;Nurse Pinsetter Mechanic Automatic 5-2-1 Patient Capacity Improvements: Avoidance of adverse events/readmission;Tra nsportation arrangements Discharge Plan for ongoing care and services: Other Discharge location(s): [facility] Patient choice completed for referred services: Return to previous provider Discussed with patient/patients family involved in decision making: Yes Patient or family caregiver understands, and agrees with discharge plan. Transportation: Wheelchair Van Nursing informed of discharge plan: Yes Name of RN informed: Xiao Estimated discharge date: 09/20/18 Time: 1400 CM/SW Name & Contact number: Carie Silva RN Ph. [phone] The following information has been provided to the facility noted above: reason for the patient discharge or transfer; patients physical and psychosocial sta tus; summary of care, treatment, services provided to patient; and the patient p rogress toward goals. * Carie Silva RN - 09/20/2018 8:56 AM CDT Care Management Social Functional Assessment Patient Name: Lui Whitney Age: [age] year old Sex: male Patient's Previous Admission Date at [facility]: 07/07/2018 Current diagnosis and co-morbidities: chest pain Readmission Questions: Was patient discharged from any acute care hospital within the last 30 days: No Social Functional Assessment: Primary language spoken/preferred: Greenlandic Mental Status: Alert & Oriented to Person,Place & Time Information given by: Self Patient's support system: None Primary Aviation Survival Technician: Self MPOA: No Address of living arrangement : [facility] [address] [place] [id number] Persons living in home: Self Barriers to returning home: None Baseline functional status- ambulation: Requires minimal to moderate assistance Functional status-baseline personal care: Independent Baseline functional status- driving: Dependent Baseline functional status- grocery shopping: Dependent Functional status-baseline housekeeping: Dependent Functional status-baseline meal prep: Dependent Current functional status same as prior: Yes Do you have a PCP?: Yes Name of PCP: Laura Holland Home Health Care Agency: No Provider Services: No DME Company: No Equipment: Shower Chair;Wheelchair: Electric Hemodialysis: No Community resources utilized: SSA/SSI/Medicaid Funding Resources: Medicaid HMO Prescription coverage plan: Medicaid unlimited slots Pharmacy where meds are filled: Mail Order Anticipated services prior to disharge: Continue Medical Eval Expected mode of discharge transportation: Wheelchair van;Medicaid transportatio n Additional info required for discharge planning: Pending medical evaluation Recommended discharge plan: Home(return to [place]) SFA Complete: Social Functional Assessment complete: Yes Alcohol Use Screening (AUDIT-C) How often do you have a drink containing alcohol?: Never SCORE: 0 Role of Care Management explained. Carie Silva RN, BSN Torch Straightener And Heater- [facility] Department of Care Management O [phone] E [email or web address] F [phone] documented in this encounter Plan of Treatment Order Schedule Name Type Priority Associated Diagnoses EVERY 6 HOURS (START TIME ADJUSTABLE) START TIME ADJUSTABLE for 3 Occurrences starting 09/20/2018 until 09/20/2018, 1 completed Troponin I LAB Routine Health Maintenance Due Date Last Done Comments PNEUMOCOCCAL 0-64 YEARS 1976 COMBINED SERIES (1 of 1 - PPSV23) EYE EXAM 1980 URINE MICROALBUMIN 1980 FOOT EXAM 1988 DTaP,Tdap,and Td Vaccines 1989 (1 - Tdap) INFLUENZA VACCINE 10/19/2018 HgA1C 01/14/2019 07/14/2018, 06/19/2018 LDL-C 07/15/2019 07/14/2018, 06/20/2018 CREATININE (SERUM) 09/20/2019 09/19/2018, 09/04/2018, 07/15/2018, Additional history exists documented as of this encounter Implants Device Identifier Shelf Expiration Date Model / Serial / Lot Implanted Type 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 Chest documented as of this encounter Procedures Comments Procedure Name Priority Date/Time Associated Diagnosis POCT GLUCOSE (AUTOMATED) Routine 09/20/2018 8:54 AM CDT TROPONIN I Routine 09/20/2018 4:[address] THORAX WO CONTRAST STAT 09/19/2018 Chest pain, unspecified 10:28 PM CDT type XR CHEST 1 VW STAT 09/19/2018 Chest pain, unspecified 9:42 PM CDT type GALV/CLC ONLY - URINE STAT 09/19/2018 Chest pain, unspecified DRUG (IMMUNOASSAY) - 4 ER 9:02 PM CDT type PANEL CBC WITH DIFFERENTIAL STAT 09/19/2018 Chest pain, unspecified 8:03 PM CDT type EXTRA TUBE LT. BLUE STAT 09/19/2018 8:03 PM CDT N-TERMINAL PRO-BNP STAT 09/19/2018 Chest pain, unspecified 8:03 PM CDT type CBC WITH DIFF Routine 09/19/2018 Chest pain, unspecified 8:03 PM CDT type ETHANOL STAT 09/19/2018 Chest pain, unspecified 8:03 PM CDT type BASIC METABOLIC PANEL STAT 09/19/2018 Chest pain, unspecified (NA, K, CL, CO2, GLUCOSE, 8:03 PM CDT type BUN, CREATININE, CA) HEPATIC FUNCTION PANEL STAT 09/19/2018 Chest pain, unspecified (90895) (ALB,T.PRO,BILI 8:03 PM CDT type T,BU/BC,ALT,AST,ALK PHOS) TROPONIN I STAT 09/19/2018 Chest pain, unspecified 8:03 PM CDT type EKG-12 LEAD STAT 09/19/2018 7:54 PM CDT documented in this encounter Results * POCT GLUCOSE (AUTOMATED) (09/20/2018 8:54 AM CDT) Pathologist [facility] POCT GLU 387 (H) 70 - 110 mg/dL [facility] Specimen Blood Performing Organization Address City/State/Zipcode Phone Number [facility] CLIA: [id number], [address] [place] [address] St * Troponin I (09/20/2018 4:05 AM CDT) TROPONIN I 0.003 <=0.034 ng/mL [facility] SERVICES-[facility] Specimen Blood - VENOUS Narrative Performed At Equal or Less than 0.034 ng/ml---Normal [facility] Note: Cardiac troponin begins to rise 3-4 hours after the onset of ischemia. [facility] Repeat in 4-6 hours if the sample was drawn within 3-4 hours of the onset of the CAMPUS symptom and found normal. Between 0.035 and 0.120 ng/mL--- Borderline. Questionable myocardial injury or necrosis Note: Serial measurement may be necessary to confirm or exclude the diagnosis of myocardial injury or necrosis; Clinical correlation (symptoms, EKGs, imaging studies, and others) required; Repeat in 4-6 hours if clinically indicated. Equal or Higher than 0.121 ng/mL---Abnormal. Myocardial Injury or Necrosis Likely Biotin has been reported to cause a negative bias, interpret results relative to patient's use of biotin. Performing Organization Address City/State/Zipcode Phone Number [facility] CLIA: [id number], [address] [place] [address] SERVICES-[facility] * CT THORAX WO CONTRAST (09/19/2018 10:28 PM CDT) Specimen Impressions Performed At No thoracic aortic aneurysm. No displacement of aortic wall calcification PACS/VR/DOSE to indirectly suggest dissection. Focal groundglass attenuation in the anterior right upper lobe, similar to the previous exam. This may reflect persistent pneumonia. Continued follow-up is recommended to ensure resolution. Subsegmental atelectasis in the lung bases. RL: [id number] AFC: [id number] Narrative Performed At Ordering physician: ANNETTE GAMBOA PACS/VR/DOSE INDICATION: Chest pain COMPARISON: CTA of the chest dated 09/04/2017 TECHNIQUE: Axial images of the chest were performed without the administration of intravenous contrast material. Images were reformatted in the coronal and sagittal plane. CT scan was performed according to ALARA (as low as reasonably achievable) policy. FINDINGS: The patient is status post median sternotomy. The heart is stably enlarged without pericardial effusion. No thoracic aortic aneurysm is appreciated. Lack of contrast precludes evaluation for dissection, but no displacement of aortic wall calcification is seen to indirectly suggest dissection. There are no pathologically enlarged mediastinal or hilar lymph nodes. No acute process is appreciated in the visualized aspect of the upper abdomen. There is focal groundglass disease in the anterior right upper lobe. There is subsegmental atelectasis in the lung bases. Procedure Note [facility], Radiant Results Inft User - 09/19/2018 11:10 PM CDT Ordering physician: ANNETTE GAMBOA INDICATION: Chest pain COMPARISON: CTA of the chest dated 09/04/2017 TECHNIQUE: Axial images of the chest were performed without the administration of intravenous contrast material. Images were reformatted in the coronal and sagittal plane. CT scan was performed according to ALARA (as low as reasonably achievable) policy. FINDINGS: The patient is status post median sternotomy. The heart is stably enlarged without pericardial effusion. No thoracic aortic aneurysm is appreciated. Lack of contrast precludes evaluation for dissection, but no displacement of aortic wall calcification is seen to indirectly suggest dissection. There are no pathologically enlarged mediastinal or hilar lymph nodes. No acute process is appreciated in the visualized aspect of the upper abdomen. There is focal groundglass disease in the anterior right upper lobe. There is subsegmental atelectasis in the lung bases. IMPRESSION No thoracic aortic aneurysm. No displacement of aortic wall calcification to indirectly suggest dissection. Focal groundglass attenuation in the anterior right upper lobe, similar to the previous exam. This may reflect persistent pneumonia. Continued follow-up is recommended to ensure resolution. Subsegmental atelectasis in the lung bases. RL: 460 AFC: [id number] Performing Organization Address [facility]/State/Zipcode Phone Number PACS/VR/DOSE * Chest 1 View (09/19/2018 9:42 PM CDT) Specimen Impressions Performed At Cardiomegaly with mild edema. No effusions. PACS/VR/DOSE RL: [id number] AFC: [id number] Narrative Performed At Patient name: LUI WHITNEY PACS/VR/DOSE : 1970 48 years EXAMINATION: XR CHEST 1 VW Ordering Physician: ANNETTE GAMBOA CLINICAL HISTORY: chest pain COMPARISON: None TECHNIQUE: Single frontal view the chest was performed. FINDINGS: Sternotomy wires are identified. Cervical fusion hardware. Heart is mildly enlarged. Prominence of the vascularity is present. No definite infiltrate. No definite effusion or pneumothorax. Normal aortic contours. Procedure Note [facility], Radiant Results Inft User - 09/19/2018 11:08 PM CDT Patient name: LUI WHITNEY : 1970 48 years EXAMINATION: XR CHEST 1 VW Ordering Physician: ANNETTE GAMBOA CLINICAL HISTORY: chest pain COMPARISON: None TECHNIQUE: Single frontal view the chest was performed. FINDINGS: Sternotomy wires are identified. Cervical fusion hardware. Heart is mildly enlarged. Prominence of the vascularity is present. No definite infiltrate. No definite effusion or pneumothorax. Normal aortic contours. IMPRESSION Cardiomegaly with mild edema. No effusions. RL: [id number] AFC: [id number] Performing Organization Address City/State/Zipcode Phone Number PACS/VR/DOSE * DRUG SCREEN ER (URINE) (09/19/2018 9:02 PM CDT) AMPHET Negative Negative [facility] Cocaine Negative Negative [facility] Metabolite [facility] OPIATES Negative Negative [facility] THC Negative Negative [facility] Specimen Urine - URINE, CLEAN CATCH Narrative Performed At Urine Drug Cutoff Ranges [facility] Amphetamine: 1,000 ng/mL [facility] Cocaine: 150 ng/mL CAMPUS Opiates: 300 ng/mL Cannabinoids:50 ng/mL The results are to be used only for medical (i.e., treatment) purposes. Unconfirmed screening results must not be used for non-medical purposes (e.g., employment testing, legal testing). Performing Organization Address City/[facility]/Zipcode Phone Number [facility] CLIA: [id number], [address] [place], [place] [address] [facility] * EXTRA TUBE LT. BLUE (09/19/2018 8:03 PM CDT) Specimen Blood Performing Organization Address [facility]/Zipcode Phone Number [facility] CLIA: [id number], [address] [place] [address] [facility] * ETHANOL (09/19/2018 8:03 PM CDT) ALCOHOL <10 mg/dL [facility] Specimen Blood - VENOUS Narrative Performed At Toxic Greater than or equal to 80 mg/dL. [facility] NOTE: Whole blood values are approximately 10% to 15% lower than serum and [facility] plasma. CAMPUS Performing Organization Address City/[facility]/Zipcode Phone Number [facility] CLIA: [id number], [address] [place] [address] [facility] * CBC WITH DIFFERENTIAL (09/19/2018 8:03 PM CDT) WBC 8.70 4.20 - 10.70 [facility] 10*3/L [facility] RBC 4.22 (L) 4.26 - 5.52 10*6/L [facility] HGB 13.2 12.2 - 16.4 g/dL [facility] HCT 38.9 38.4 - 49.3 % [facility] MCV 92.2 81.7 - 95.6 fL [facility] MCH 31.3 26.1 - 32.7 pg [facility] MCHC 33.9 31.2 - 35.0 g/dL [facility] RDW-SD 47.6 38.5 - 51.6 fL [facility] RDW-CV 14.3 12.1 - 15.4 % [facility] PLT 217 150 - 328 10*3/L [facility] MPV 9.7 (L) 9.8 - 13.0 fL [facility] NRBC/100 WBC 0.0 0.0 - 10.0 /100 WBCs [facility] NRBC x10^3 <0.01 10*3/L [facility] GRAN MAT (NEUT) 67.6 % [facility] % [facility] IMM GRAN % 1.10 % [facility] LYMPH % 21.7 % [facility] MONO % 7.6 % [facility] EOS % 1.7 % [facility] BASO % 0.3 % [facility] GRAN MAT 5.87 1.99 - 6.95 10*3/uL [facility] x10^3(ANC) [facility] IMM GRAN x10^3 0.10 (H) 0.00 - 0.06 10*3/uL [facility] LYMPH x10^3 1.89 1.09 - 3.23 10*3/uL [facility] MONO x10^3 0.66 0.36 - 1.02 10*3/uL [facility] EOS x10^3 0.15 0.06 - 0.53 10*3/uL [facility] BASO x10^3 0.03 0.01 - 0.09 10*3/uL [facility] Specimen Blood - VENOUS Performing Organization Address City/[facility]/Zipcode Phone Number [facility] CLIA: [id number], [address] [place] [address] [facility] * N-TERMINAL PRO-BNP (09/19/2018 8:03 PM CDT) NT-proBNP 91 <=125 pg/mL [facility] Specimen Blood - VENOUS Narrative Performed At Biotin has been reported to cause a negative bias, interpret results relative to [facility] patient's use of biotin. [facility] Performing Organization Address City/[facility] Phone Number [facility] CLIA: [id number], [address] [place] [address] [facility] * Hepatic Function Panel (ALB, T.PRO, BILI T, BU/BC, ALT, AST, ALK PHOS) (09/19/2018 8:03 PM CDT) TOTAL BILI 0.3 0.1 - 1.1 mg/dL [facility] BILI UNCON 0.2 0.1 - 1.1 mg/dL [facility] BILI CONJ 0.0 0.0 - 0.3 mg/dL [facility] T PROTEIN 6.6 6.3 - 8.2 g/dL [facility] ALBUMIN 3.9 3.5 - 5.0 g/dL [facility] ALK PHOS 154 (H) 34 - 122 U/L [facility] ALT(SGPT) 39 9 - 51 U/L [facility] AST(SGOT) 21 13 - 40 U/L [facility] Specimen Blood - VENOUS Performing Organization Address City/[facility]/Zipcode Phone Number [facility] CLIA: [id number], [address] [place] [address] [facility] * Basic Metabolic Panel (NA, K, CL, CO2, GLUCOSE, BUN, CREATININE, CA) (09/19/2018 8:03 PM CDT) NA 140 135 - 145 mmol/L [facility] K 3.2 (L) 3.5 - 5.0 mmol/L [facility] CL 99 98 - 108 mmol/L [facility] CO2 TOTAL 25 23 - 31 mmol/L [facility] AGAP 16 2 - 16 [facility] BUN 18 7 - 23 mg/dL [facility] GLUCOSE 220 (H) 70 - 110 mg/dL [facility] CREATININE 1.10 0.60 - 1.25 mg/dL [facility] CALCIUM 9.3 8.6 - 10.6 mg/dL [facility] eGFR 71.4 mL/min/1.73m2 [facility] Calculation [facility] ([facility]) eGFR 86.6 mL/min/1.73m2 [facility] Calculation [facility] ([facility]) Specimen Blood - VENOUS Narrative Performed At Association of Glomerular Filtration Rate (GFR) and Staging of Kidney Disease* [facility] + + + + [facility] | GFR (mL/min/1.73 m2)| With Kidney Damage|Without Kidney Damage CAMPUS + + + + |>90|Stage one| Normal + + + + |60-89|Stage two| Decreased GFR + + + + |30-59|Stage three| Stage three + + + + |15-29|Stage four | Stage four + + + + |<15 (or dialysis)|Stage five | Stage five + + + + *Each stage assumes the associated GFR level has been in effect for at least three months.Stages 1 to 5, with or without kidney disease, indicate chronic kidney disease. Notes: Determination of stages one and two (with eGFR >59mL/min/1.73 m2) requires estimation of kidney damage for at least three months as defined by structural or functional abnormalities of the kidney, manifested by either: Pathological abnormalities or Markers of kidney damage (including abnormalities in the composition of the blood or urine or abnormalities in imaging tests). Performing Organization Address City/State/Zipcode Phone Number [facility] CLIA: [id number], [address] [place] [address] [facility] * Troponin I (09/19/2018 8:03 PM CDT) TROPONIN I 0.000 <=0.034 ng/mL [facility] Specimen Blood - VENOUS Narrative Performed At Equal or Less than 0.034 ng/ml---Normal [facility] Note: Cardiac troponin begins to rise 3-4 hours after the onset of ischemia. [facility] Repeat in 4-6 hours if the sample was drawn within 3-4 hours of the onset of the [place] symptom and found normal. Between 0.035 and 0.120 ng/mL--- Borderline. Questionable myocardial injury or necrosis Note: Serial measurement may be necessary to confirm or exclude the diagnosis of myocardial injury or necrosis; Clinical correlation (symptoms, EKGs, imaging studies, and others) required; Repeat in 4-6 hours if clinically indicated. Equal or Higher than 0.121 ng/mL---Abnormal. Myocardial Injury or Necrosis Likely Biotin has been reported to cause a negative bias, interpret results relative to patient's use of biotin. Performing Organization Address City/State/Zipcode Phone Number [facility] CLIA: [id number], [address] [place] [address] [facility] documented in this encounter Visit Diagnoses Diagnosis Chest pain, unspecified type - Primary Angina at rest Other and unspecified angina pectoris documented in this encounter Administered Medications Action Date Dose Rate Site Medication Order MAR Action 09/20/2018 9:02 AM CDT 81 mg aspirin chewable tablet 81 mg Given 81 mg, Oral, DAILY, First dose on 09/20/18 at 0900, Until Discontinued, Routine dextrose 50 % in water (D50W) injection 25 mL 25 mL, Slow IV Push, PRN, Starting 09/20/18 at 0151, Until Discontinued, DEBBIE, Blood Glucose < or=70 mg/dL and patient is unable to swallow or has mental status changes. 09/20/2018 9:03 AM CDT 125 mcg digoxin (LANOXIN) tablet 125 mcg Given 125 mcg, Oral, DAILY, First dose on 09/20/18 at 0900, Until Discontinued 09/20/2018 9:02 AM CDT 40 mg DULoxetine (CYMBALTA) capsule 40 mg Given 40 mg, Oral, BID, First dose on 09/20/18 at 0800, Until Discontinued, Routine 09/20/2018 3:59 AM CDT 40 mg furosemide (LASIX) injection 40 mg Given 40 mg, Slow IV Push, Q6H, First dose on 09/20/18 at 0145, Until Discontinued, Routine glucagon (GLUCAGEN DIAGNOSTIC KIT) injection 1 mg 1 mg, Intramuscular, PRN, Starting 09/20/18 at 0151, Until Discontinued, DEBBIE, Blood Glucose < or=70 mg/dL and patient is unable to swallow or has mental changes. 09/20/2018 9:13 AM CDT 20 Units Abdomen-SC insulin glargine (LANTUS U-100) Given injection 20 Units 20 Units, Subcutaneous, Q12H, First dose on 09/20/18 at 0800, Until Discontinued, Routine ipratropium (ATROVENT) 0.02 % nebulizer solution 0.5 mg 0.5 mg, Inhalation, Q4HPRN, Starting 09/20/18 at 0142, Until Discontinued, Routine, Wheezing, Shortness of Breath 09/20/2018 9:03 AM CDT 30 mg isosorbide mononitrate (IMDUR) 24 hr Given tablet 30 mg 30 mg, Oral, DAILY, First dose on 09/20/18 at 0900, Until Discontinued, Routine 09/20/2018 9:02 AM CDT 25 mg lamoTRIgine (LAMICTAL) tablet 25 mg Given 25 mg, Oral, BID, First dose on 09/20/18 at 0800, Until Discontinued 09/20/2018 9:03 AM CDT 500 mg levETIRAcetam (KEPPRA) tablet 500 mg Given 500 mg, Oral, BID, First dose on 09/20/18 at 0800, Until Discontinued, Routine 09/20/2018 4:05 AM CDT 750 mg levoFLOXacin in D5W (LEVAQUIN) 750 Given mg/150 mL Piggyback 750 mg 750 mg, IV Piggyback, Administer over 90 Minutes, Q24H ABX, First dose on 09/20/18 at 0245, Until Discontinued, DEBBIE, Reason for Anti-Infective: Empiric Therapy for Suspected Infection, Empiric Therapy Site: Skin / Soft tissue, Duration of therapy: 72 hours 09/20/2018 4:04 AM CDT 60 mg methylprednisolone sod succ Given (SOLU-MEDROL) injection 60 mg 60 mg, Intravenous, Q12H, First dose on 09/20/18 at 0200, Until Discontinued, Routine metoprolol tartrate (LOPRESSOR) tablet 50 mg 50 mg, Oral, BID, First dose on 09/20/18 at 2000, Until Discontinued, Routine 09/20/2018 9:04 AM CDT 4 mg morpHINE injection 4 mg Given 4 mg, Slow IV Push, Q4HPRN, Starting 09/20/18 at 0135, Until 09/21/18 at 0134, Routine, Pain (scale 7-10) 4 mg Given 09/20/2018 3:58 AM CDT 09/20/2018 9:02 AM CDT 100 mg pregabalin (LYRICA) capsule 100 mg Given 100 mg, Oral, BID, First dose on 09/20/18 at 0800, Until Discontinued, Routine, natural resources faculty member approving Restricted medication: ANA BRAVO 09/20/2018 9:03 AM CDT 0.5 mg risperiDONE (RISPERDAL) tablet 0.5 mg Given 0.5 mg, Oral, BID, First dose on 09/20/18 at 0800, Until Discontinued, Routine 09/20/2018 9:12 AM CDT 4 Units Abdomen-SC Sliding Scale Insulin - Aspart (NOVOLOG) Given + Fsbg Testing Subcutaneous, TID MEALS+HS, First dose on 09/20/18 at 0800, Until Discontinued, Routine Action Date Dose Rate Site Medication Order MAR Action 09/19/2018 8:13 PM CDT 325 mg aspirin tablet 325 mg Given 325 mg, Oral, ONCE, 1 dose, 09/19/18 at 2115, STAT 09/20/2018 9:03 AM CDT 75 mg clopidogrel (PLAVIX) tablet 75 mg Given 75 mg, Oral, DAILY, First dose on 09/20/18 at 0900, Until Discontinued, Routine 09/20/2018 12:16 AM CDT 0.5 mg Left Arm HYDROmorphone (DILAUDID) injection 0.5 Given mg 0.5 mg, Slow IV Push, ONCE, 1 dose, 09/20/18 at 0115, DEBBIE, Use approved by (Faculty): CLC PROVIDER 09/20/2018 9:03 AM CDT 25 mg metoprolol tartrate (LOPRESSOR) tablet Given 25 mg 25 mg, Oral, BID, First dose on 09/20/18 at 0800, Until Discontinued, Routine 09/19/2018 8:14 PM CDT 1 Inch Chest nitroglycerin (NITROL) 2 % ointment 1 Given Inch 1 Inch, Transdermal (Apply To Skin), ONCE, 1 dose, Sat09/19/18 at 2115, DEBBIE documented in this encounter Insurance Type Payer Benefit Subscriber ID Effective Phone Address Plan / Dates Group Medicaid [employer] [place] xxxxxxxxx 2018-P PLAN - MANAGED MEDICAID STAR PLUS resent documented as of this encounter
--- OUTSIDE RECORDS SUMMARY | 2018-10-22 17:53 | XMS REPORT | Clinical Summary ---
Author Author [facility] Organization [facility] Address Unknown Phone Unavailable Care Team Providers Care Real Estate Representative Name Role Phone PCP Unavailable Allergies Comments [...] 04/24/2018 Therapy Physical Therapy 04/24/2018 Travel after 05/31/2017 Social History Date Tobacco Use Types Packs/Day Years Used Never Assessed Sex Assigned at Date Recorded Not on file Industry Job Start Date Occupation Not on file Not on file Not on file Travel End Travel History Travel Start No recent travel history available. 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 COMMUNITY Present [id number] [place] [address] Advance Directives For more information, please contact: [address] [address] Date Inactivated Comments Code Status Date Activated 07/04/2010 9:05 PM Full Code 07/03/2010 10:11 AM
--- OUTSIDE RECORDS SUMMARY | 2018-10-22 17:53 | XMS REPORT | Summary of Care ---
Author Author [facility] - Health Organization [facility] - Health Address Unknown Phone Unavailable Care Team Providers Care Special Education Administrator Name Role Phone Gwendolyn Gimenezliet PCP Encounter Details Care Team Description Date Type Department Doctor Unassigned, [place] [address] [place] [address] 09/15/2018 Orders Only [facility] [address] [place] [address] Allergies Comments Active Allergy Reactions Severity Noted Date Ampicillin Unknown - See 06/19/2018 comments Gabapentin Unknown - See 06/19/2018 comments "merino my stomach" Hydrocodone-Acetaminophen Other - See 07/07/2018 comments Metoclopramide Hcl Unknown - See 06/19/2018 comments Tramadol Unknown - See High 07/07/2018 comments Ondansetron Hcl (Pf) Itching 06/19/2018 documented as of this encounter (statuses as of 09/15/2018) Medications End Date Status Medication Sig Dispensed [...] 15 mg by 0 tablet mouth daily. Active pantoprazole 20 mg EC Take 20 mg by 0 tablet mouth daily. Active [...] every 4 (four) hours as needed. Active carisoprodol 350 mg Take 350 mg 0 tablet by mouth every 8 (eight) hours as needed. Active cyclobenzaprine HCl Take 10 mg by 0 (FLEXERIL ORAL) mouth every 8 (eight) hours as needed. Active multivit with Take 30 mL by 0 iron,minerals (GENERIX T mouth 2 (two) ORAL) times daily as needed. Active hydrOXYzine 50 mg capsule Take 50 mg by 0 mouth 3 (three) times daily as needed for Itching. Active albuterol (PROAIR HFA) 90 Inhale 2 0 mcg/actuation inhaler Puffs every 6 (six) hours as needed for Wheezing or Shortness of Breath. Active proMETHazine 25 mg tablet Take 25 mg by 0 mouth every 4 (four) hours as needed. Active metoprolol tartrate 25 mg Take 25 mg by 0 tablet mouth 2 (two) times daily. Active ALPRAZolam (XANAX) 2 mg Take 2 mg by 0 tablet mouth 2 (two) times daily as needed for Anxiety. Active furosemide 40 mg Take 1 tablet [...] without long-term current hours. use of insulin documented as of this encounter (statuses as of 09/15/2018) Active Problems Problem Noted Date Tachycardia 09/05/2018 [...] as of this encounter (statuses as of 09/15/2018) Social History Date Tobacco Use Types Packs/Day [...] of this encounter Last Filed Vital Signs Not on filedocumented in this encounter Plan of Treatment Health Maintenance Due Date Last Done Comments PNEUMOCOCCAL 0-64 YEARS 1976 COMBINED SERIES (1 of 1 - PPSV23) EYE EXAM 1980 URINE MICROALBUMIN 1980 FOOT EXAM 1988 DTaP,Tdap,and Td Vaccines 1989 (1 - Tdap) INFLUENZA VACCINE 10/19/2018 HgA1C 01/14/2019 07/14/2018, 06/19/2018 LDL-C 07/15/2019 07/14/2018, 06/20/2018 CREATININE (SERUM) 09/05/2019 09/04/2018, 07/15/2018, 07/14/2018, Additional history exists documented as of this encounter Implants Device Identifier Shelf Expiration Date Model / Serial / Lot Implanted Type 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 Chest documented as of this encounter Procedures Comments Procedure Name Priority Date/Time Associated Diagnosis EXTERNAL PROVIDER RECORDS Routine 09/15/2018 12:01 AM CDT documented in this encounter Results Not on filedocumented in this encounter Insurance Type Payer Benefit Subscriber ID Effective Phone Address Plan / Dates Group Medicaid [employer] [place] xxxxxxxxx 2018-P PLAN - MANAGED MEDICAID STAR PLUS resent documented as of this encounter
--- OUTSIDE RECORDS SUMMARY | 2018-10-22 17:53 | XMS REPORT | Clinical Summary ---
Author Author [facility] Organization [facility] Address Unknown Phone Unavailable Care Team Providers Care Artificial Flowers Supervisor Name Role Phone PCP Unavailable Allergies Comments [...] 04/24/2018 Therapy Physical Therapy 04/24/2018 Travel after 07/05/2017 Social History Date Tobacco Use Types Packs/Day Years Used Never Assessed Sex Assigned at Date Recorded Not on file Industry Job Start Date Occupation Not on file Not on file Not on file Travel End Travel History Travel Start No recent travel history available. 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 COMMUNITY Present [id number] [place] [address] Advance Directives For more information, please contact: [address] [address] Date Inactivated Comments Code Status Date Activated 07/04/2010 9:05 PM Full Code 07/03/2010 10:11 AM
--- OUTSIDE RECORDS SUMMARY | 2018-10-22 17:53 | XMS REPORT | Clinical Summary ---
Author Author [facility] Organization [facility] Address Unknown Phone Unavailable Care Team Providers Care Ticket Dispatcher Name Role Phone PCP Unavailable Allergies Comments [...] 04/24/2018 Therapy Physical Therapy 04/24/2018 Travel after 07/09/2017 Social History Date Tobacco Use Types Packs/Day Years Used Never Assessed Sex Assigned at Date Recorded Not on file Industry Job Start Date Occupation Not on file Not on file Not on file Travel End Travel History Travel Start No recent travel history available. Last Filed Vital Signs Reading Time Taken Comments Vital Sign 117/74 04/24/2018 2:06 PM WAGE CONCILIATOR Blood Pressure 81 04/24/2018 2:06 PM WAGE CONCILIATOR Pulse - - Temperature - - Respiratory Rate 96% 04/24/2018 2:06 PM WAGE CONCILIATOR Oxygen Saturation - - Inhaled Oxygen Concentration - - Weight - - Height - - Body Mass Index Plan of Treatment Health Maintenance Due Date Last Done Comments IMM Influenza Seasonal 11/18/2018Nov to April (>/=19 yrs) Results Not on fileafter 07/09/2017 Insurance Type Payer Benefit Subscriber ID Effective Phone Address Plan / Dates Group [facility] xxxxxxxxx 2017- [phone] COMMUNITY Present [id number] [place] [address] Advance Directives Date Inactivated Comments Code Status Date Activated 07/04/2010 9:05 PM Full Code 07/03/2010 10:11 AM
--- OUTSIDE RECORDS SUMMARY | 2018-10-22 17:53 | XMS REPORT | Continuity of Care Document ---
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 [employer] Unavailable Unavailable Problems Problem Status Onset Date Classification Date Reported Comments Source Physical deconditioning Active 04/25/2018 09/03/2018 [facility] Impaired mobility and ADLs Active 04/25/2018 09/03/2018 [facility] Impaired gait and mobility Active 04/25/2018 09/03/2018 [facility] At risk for falls Active 04/25/2018 09/03/2018 [facility] Chest pain Active 07/03/2010 09/03/2018 [facility] Pulmonary embolus Active 07/03/2010 09/03/2018 [facility] Syncope Active Problem 05/29/2018 [facility] TIA Active Problem 05/29/2018 [facility] Medications Medication Details Route Status Patient Instructions Ordering Provider Order Date Source Aspirin (Aspir 81) 81 Mg Tablet.dr Alvarenga Active Lakesha 04/10/2018 [facility] Hydroxyzine Hcl 25 Mg Tablet, 50 Mg Oral Every 8 Hours as needed for Anxiety Active 02/09/2018 [facility] Prednisone 10 Mg Tab, 10 Mg Oral Twice A Day Active 02/09/2018 [facility] clopidogrel (PLAVIX) 75 mg tablet Take 1 Tab by mouth daily. Oral Active 07/04/2010 [facility] gabapentin (NEURONTIN) 300 mg capsule Take 2 Caps by mouth 2 times daily. Oral Active 07/04/2010 [facility] nitroGLYCERIN (NITROSTAT) 0.[address] 1 Tab under tongue every 5 minutes as needed for Chest pain. Sublingual Active 07/04/2010 [facility] warfarin (COUMADIN) 7.5 mg tablet Take 1 Tab by mouth daily (warfarin). Oral Active 07/04/2010 [facility] risperdone (RISPERDAL) 1 mg tablet Take by mouth every morning. 0.5mg in am2.5mg in pmAs previously instructed Oral Active 07/04/2010 [facility] famotidine (PEPCID) 20 mg tablet Take 1 Tab by mouth 2 times daily. Oral Active 07/04/2010 [facility] lisinopril (PRINIVIL, ZESTRIL) 2.5 mg tablet Take 8 Tabs by mouth daily. Oral Active 07/04/2010 [facility] metoprolol tartrate (LOPRESSOR) 25 mg tablet Take 1 Tab by mouth 2 times daily. Oral Active 07/04/2010 [facility] rosuvastatin (CRESTOR) 10 mg tablet Take 1 Tab by mouth at bedtime. Oral Active 07/04/2010 [facility] nitroGLYCERIN (NITROSTAT) 0.[address] 1 Tab under tongue every 5 minutes as needed for Chest pain. Sublingual Active 07/04/2010 [facility] rosuvastatin (CRESTOR) 10 mg tablet Take 1 Tab by mouth at bedtime. Oral Active 07/04/2010 [facility] Atorvastatin Calcium 20 Mg Tablet Bedtime Active [facility] Carisoprodol (Soma) 350 Mg Tablet Every 8 Hours as needed for Cramps Active [facility] Clopidogrel Bisulfate (Plavix) 75 Mg Tablet Daily Active [facility] Doxepin Hcl 25 Mg Capsule Qhs Active [facility] Duloxetine Hcl (Cymbalta) 30 Mg Capsule.dr Alvarenga Active [facility] Furosemide 40 Mg Tablet Twice A Day Active [facility] Hydroxyzine Hcl 25 Mg Tablet Every 8 Hours as needed for Anxiety Active [facility] Lamotrigine (Lamictal) 25 Mg Tab Twice A Day Active [facility] Levetiracetam (Keppra) 500 Mg Tablet Twice A Day Active [facility] Lorazepam 0.5 Mg Tablet Every 8 Hours as needed for Anxiety Active [facility] Metoprolol Tartrate 25 Mg Tablet Twice A Day Active [facility] Mirtazapine 15 Mg Tab Qhs Active [facility] Pantoprazole Sodium (Protonix) 40 Mg Tablet.dr Alvarenga Active [facility] Prednisone 10 Mg Tab Twice A Day Active [facility] Pregabalin (Lyrica) 50 Mg Cap Twice A Day Active [facility] Promethazine Hcl 25 Mg Tablet Every 6 Hours as needed for Nasal Congestion Active [facility] Quetiapine Fumarate 25 Mg Tablet Every Morning Active [facility] Quetiapine Fumarate 100 Mg Tablet Qhs Active [facility] Rivaroxaban (Xarelto) 20 Mg Tablet Daily Active [facility] Trazodone Hcl 50 Mg Tablet Qhs Active [facility] Atorvastatin Calcium 20 Mg Tablet Bedtime Active [facility] Carisoprodol (Soma) 350 Mg Tablet Every 8 Hours as needed for Cramps Active [facility] Clopidogrel Bisulfate (Plavix) 75 Mg Tablet Daily Active [facility] Doxepin Hcl 25 Mg Capsule Qhs Active [facility] Duloxetine Hcl (Cymbalta) 30 Mg Capsule. Twice A Day Active [facility] Fenofibrate (Tricor) 145 Mg Tab Daily Active [facility] Furosemide 40 Mg Tablet Twice A Day Active [facility] Isosorb Pettis/Imdur Daily Active [facility] Lamotrigine (Lamictal) 25 Mg Tab Twice A Day Active [facility] Levetiracetam (Keppra) 500 Mg Tablet Twice A Day Active [facility] Lorazepam 0.5 Mg Tablet Every 8 Hours as needed for Anxiety Active [facility] Meloxicam (Mobic) 15 Mg Tablet Daily Active [facility] Metformin Hcl 1,000 Mg Tablet Twice A Day Active [facility] Metoprolol Tartrate 25 Mg Tablet Twice A Day Active [facility] Mirtazapine 15 Mg Tab Qhs Active [facility] Pantoprazole Sodium (Protonix) 40 Mg Tablet. Daily Active [facility] Pregabalin (Lyrica) 50 Mg Cap Twice A Day Active [facility] Promethazine Hcl 25 Mg Tablet Every 6 Hours as needed for Nasal Congestion Active [facility] Quetiapine Fumarate 25 Mg Tablet Every Morning Active [facility] Quetiapine Fumarate 100 Mg Tablet Qhs Active [facility] Ranolazine (Ranexa) 500 Mg Tabsr Twice A Day Active [facility] Risperidone (Risperdal) 1 Mg Tablet Twice A Day Active [facility] Rivaroxaban (Xarelto) 20 Mg Tablet Daily Active [facility] Trazodone Hcl 50 Mg Tablet Qhs Active [facility] Allergies, Adverse Reactions, Alerts Substance Category Reaction Severity Reaction type Status Date Reported Comments Source Morphine Propensity to adverse reactions to drug Active 07/03/2010 [facility] Ondansetron Hcl (Pf) Propensity to adverse reactions to drug Active 07/03/2010 [facility] Green Vegetables Unknown Allergy to Substance Active 04/20/2017 [facility] Margerine Unknown Allergy to Substance Active 04/20/2017 [facility] Paper Tape Unknown Allergy to Substance Active 04/20/2017 [facility] Ampicillin Unknown Allergy to Substance Active 04/10/2018 [facility] Metoclopramide Unknown Allergy to Substance Active 04/10/2018 [facility] Ondansetron Unknown Allergy to Substance Active 04/10/2018 [facility] Tramadol EARS RINGING Intermediate Allergy to Substance Active 04/10/2018 [facility] Gabapentin Mild Allergy to Substance Active 04/10/2018 [facility] Ketorolac RASH Intermediate Allergy to Substance Active 04/10/2018 [facility] Immunizations No Data Provided for This Section Results Order Name Results Value Reference Range Date Interpretation Comments Source Urine color determination YELLOW YELLOW 05/29/2018 [facility] Urine clarity CLEAR CLEAR 05/29/2018 [facility] Specific gravity of Urine by Test strip 1.010 1.010 - 1.025 05/29/2018 [facility] Urine pH measurement by automated test strip 7 5 - 7 05/29/2018 [facility] Urine leukocyte esterase detection by dipstick NEGATIVE NEGATIVE 05/29/2018 [facility] Urine nitrite detection NEGATIVE NEGATIVE 05/29/2018 [facility] Urine protein measurement by test strip (mass/volume) NEGATIVE NEGATIVE 05/29/2018 [facility] Urine glucose detection NEGATIVE NEGATIVE 05/29/2018 [facility] Urine ketones detection by automated test strip NEGATIVE NEGATIVE 05/29/2018 [facility] Urine opiates screening test NEGATIVE NEGATIVE 05/29/2018 [facility] Barbiturates screen, urine NEGATIVE NEGATIVE 05/29/2018 [facility] Urine phencyclidine detection by screening method NEGATIVE NEGATIVE 05/29/2018 [facility] Urine amphetamines detection by screen method > 1000 ng/mL NEGATIVE NEGATIVE 05/29/2018 [facility] Urine Methamphetamines Screen NEGATIVE NEGATIVE 05/29/2018 [facility] Urine benzodiazepines detection by screening method NEGATIVE NEGATIVE 05/29/2018 [facility] Urine cocaine measurement (mass/volume) NEGATIVE NEGATIVE 05/29/2018 [facility] Urine cannabinoids detection by screening method NEGATIVE NEGATIVE 05/29/2018 [facility] Urine methadone screen NEGATIVE NEGATIVE 05/29/2018 [facility] Urine urobilinogen measurement by test strip (mass/volume) 0.2 0.2 - 1 05/29/2018 [facility] Urine total bilirubin measurement (mass/volume) NEGATIVE NEGATIVE 05/29/2018 [facility] Urine erythrocytes detection NEGATIVE NEGATIVE 05/29/2018 [facility] Automated urine sediment leukocyte count by microscopy (number/high power field) 0-5 0 - 5 05/29/2018 [facility] Erythrocytes detection in urine sediment by light microscopy 0-5 0 - 5 05/29/2018 [facility] Bacteria detection in urine sediment by light microscopy NONE NONE 05/29/2018 [facility] Epithelial cells detection in urine sediment by light microscopy RARE NONE 05/29/2018 [facility] Blood leukocytes automated count (number/volume) 11.14 4.8 - 10.8 05/29/2018 [facility] Blood erythrocytes automated count (number/volume) 4.74 4.3 - 5.7 05/29/2018 [facility] Blood hemoglobin measurement (moles/volume) 14.4 14.0 - 18.0 05/29/2018 [facility] Automated blood hematocrit (volume fraction) 42.5 38.2 - 49.6 05/29/2018 [facility] Automated erythrocyte mean corpuscular volume 89.7 81 - 99 05/29/2018 [facility] Automated erythrocyte mean corpuscular hemoglobin (mass per erythrocyte) 30.4 28 - 32 05/29/2018 [facility] Automated erythrocyte mean corpuscular hemoglobin concentration measurement (mass/volume) 33.9 31 - 35 05/29/2018 [facility] RDW BldCo-Rto 13.5 11.7 - 14.4 05/29/2018 [facility] Automated blood platelet count (count/volume) 262 140 - 360 05/29/2018 [facility] Automated blood segmented neutrophil count as percentage of total leukocytes 58.3 38.7 - 80.0 05/29/2018 [facility] Automated blood lymphocyte count as percentage ot total leukocytes 30.2 18.0 - 39.1 05/29/2018 [facility] Automated blood monocyte count as percentage of total leukocytes 7.1 4.4 - 11.3 05/29/2018 [facility] Automated blood eosinophil count as percentage of total leukocytes 1.7 0.0 - 6.0 05/29/2018 [facility] Automated blood basophil count as percentage of total leukocytes 0.4 0.0 - 1.0 05/29/2018 [facility] IM GRANULOCYTES % 2.3 0.0 - 1.0 05/29/2018 [facility] Automated blood neutrophil count 6.5 2.1 - 6.9 05/29/2018 [facility] Blood lymphocytes count (number/volume) 3.4 1.0 - 3.2 05/29/2018 [facility] Blood monocytes automated count (number/volume) 0.8 0.2 - 0.8 05/29/2018 [facility] Automated blood eosinophil count 0.2 0.0 - 0.4 05/29/2018 [facility] Automated blood basophil count (count/volume) 0.1 0.0 - 0.1 05/29/2018 [facility] Absolute Immature Granulocyte (auto 0.26 0 - 0.1 05/29/2018 [facility] Prothrombin time (PT) in platelet poor plasma by coagulation assay 12.9 11.9 - 14.5 05/29/2018 [facility] INR in Platelet poor plasma by Coagulation assay 0.92 05/29/2018 [facility] Activated partial thromboplastin time (aPTT) in platelet poor plasma bycoagulation assay 27.8 23.8 - 35.5 05/29/2018 [facility] Serum or plasma sodium measurement (moles/volume) 138 136 - 145 05/29/2018 [facility] Serum or plasma potassium measurement (moles/volume) 3.4 3.5 - 5.1 05/29/2018 [facility] Serum or plasma chloride measurement (moles/volume) 97 98 - 107 05/29/2018 [facility] Serum or plasma carbon dioxide, total measurement (moles/volume) 28 22 - 29 05/29/2018 [facility] Serum or plasma anion gap 16.4 8 - 16 05/29/2018 [facility] Serum or plasma urea nitrogen measurement (mass/volume) 19 7 - 26 05/29/2018 [facility] Serum or plasma creatinine measurement (mass/volume) 1.26 0.72 - 1.25 05/29/2018 [facility] Serum or plasma urea nitrogen/creatinine mass ratio 15 6 - 25 05/29/2018 [facility] Estimated glomerular filtration rate (GFR) determination > 60 60 05/29/2018 [facility] Glucose measurement 146 74 - 118 05/29/2018 [facility] Serum or plasma calcium measurement (mass/volume) 9.6 8.4 - 10.2 05/29/2018 [facility] Serum or plasma total bilirubin measurement (mass/volume) 0.4 0.2 - 1.2 05/29/2018 [facility] Aspartate Amino Transf (AST/SGOT) 18 5 - 34 05/29/2018 [facility] Serum or plasma alanine aminotransferase measurement (enzymatic activity/volume) 31 0 - 55 05/29/2018 [facility] Serum or plasma protein measurement (mass/volume) 7.0 6.5 - 8.1 05/29/2018 [facility] Serum or plasma albumin measurement (mass/volume) 3.8 3.5 - 5.0 05/29/2018 [facility] Plasma globulin measurement (mass/volume) 3.2 2.3 - 3.5 05/29/2018 [facility] Serum or plasma albumin/globulin mass ratio 1.2 0.8 - 2.0 05/29/2018 [facility] Serum or plasma alkaline phosphatase measurement (enzymatic activity/volume) 104 40 - 150 05/29/2018 [facility] BNP Bld-mCnc 34.1 0 - 100 05/29/2018 [facility] Serum or plasma creatine kinase measurement (enzymatic activity/volume) 97 30 - 200 05/29/2018 [facility] Serum or plasma creatine kinase MB measurement (mass/volume) 1.50 0 - 5.0 05/29/2018 [facility] Troponin I measurement by highly sensitive enzyme immunoassay 0.002 0 - 0.300 05/29/2018 [facility] Serum or plasma lipase measurement (enzymatic activity/volume) 41 8 - 78 05/29/2018 [facility] Serum or plasma amylase measurement (enzymatic activity/volume) 26 25 - 125 04/10/2018 [facility] Blood leukocytes automated count (number/volume) 6.31 4.8 - 10.8 04/10/2018 [facility] Blood erythrocytes automated count (number/volume) 4.45 4.3 - 5.7 04/10/2018 [facility] Blood hemoglobin measurement (moles/volume) 13.6 14.0 - 18.0 04/10/2018 [facility] Automated blood hematocrit (volume fraction) 40.6 38.2 - 49.6 04/10/2018 [facility] Automated erythrocyte mean corpuscular volume 91.2 81 - 99 04/10/2018 [facility] Automated erythrocyte mean corpuscular hemoglobin (mass per erythrocyte) 30.6 28 - 32 04/10/2018 [facility] Automated erythrocyte mean corpuscular hemoglobin concentration measurement (mass/volume) 33.5 31 - 35 04/10/2018 [facility] RDW BldCo-Rto 13.7 11.7 - 14.4 04/10/2018 [facility] Automated blood platelet count (count/volume) 226 140 - 360 04/10/2018 [facility] Automated blood segmented neutrophil count as percentage of total leukocytes 57.9 38.7 - 80.0 04/10/2018 [facility] Automated blood lymphocyte count as percentage ot total leukocytes 29.6 18.0 - 39.1 04/10/2018 [facility] Automated blood monocyte count as percentage of total leukocytes 9.0 4.4 - 11.3 04/10/2018 [facility] Automated blood eosinophil count as percentage of total leukocytes 2.2 0.0 - 6.0 04/10/2018 [facility] Automated blood basophil count as percentage of total leukocytes 0.5 0.0 - 1.0 04/10/2018 [facility] IM GRANULOCYTES % 0.8 0.0 - 1.0 04/10/2018 [facility] Automated blood neutrophil count 3.7 2.1 - 6.9 04/10/2018 [facility] Blood lymphocytes count (number/volume) 1.9 1.0 - 3.2 04/10/2018 [facility] Blood monocytes automated count (number/volume) 0.6 0.2 - 0.8 04/10/2018 [facility] Automated blood eosinophil count 0.1 0.0 - 0.4 04/10/2018 [facility] Automated blood basophil count (count/volume) 0.0 0.0 - 0.1 04/10/2018 [facility] Absolute Immature Granulocyte (auto 0.05 0 - 0.1 04/10/2018 [facility] Prothrombin time (PT) in platelet poor plasma by coagulation assay 13.0 11.9 - 14.5 04/10/2018 [facility] INR in Platelet poor plasma by Coagulation assay 0.90 04/10/2018 [facility] Activated partial thromboplastin time (aPTT) in platelet poor plasma bycoagulation assay 30.7 23.8 - 35.5 04/10/2018 [facility] Urine color determination YELLOW YELLOW 04/10/2018 [facility] Urine clarity CLEAR CLEAR 04/10/2018 [facility] Specific gravity of Urine by Test strip 1.015 1.010 - 1.025 04/10/2018 [facility] Urine pH measurement by automated test strip 6 5 - 7 04/10/2018 [facility] Urine leukocyte esterase detection by dipstick NEGATIVE NEGATIVE 04/10/2018 [facility] Urine nitrite detection NEGATIVE NEGATIVE 04/10/2018 [facility] Urine protein measurement by test strip (mass/volume) NEGATIVE NEGATIVE 04/10/2018 [facility] Urine glucose detection 1+ NEGATIVE 04/10/2018 [facility] Urine ketones detection by automated test strip NEGATIVE NEGATIVE 04/10/2018 [facility] Urine urobilinogen measurement by test strip (mass/volume) 0.2 0.2 - 1 04/10/2018 [facility] Urine total bilirubin measurement (mass/volume) NEGATIVE NEGATIVE 04/10/2018 [facility] Urine erythrocytes detection NEGATIVE NEGATIVE 04/10/2018 [facility] Automated urine sediment leukocyte count by microscopy (number/high power field) 0-5 0 - 5 04/10/2018 [facility] Erythrocytes detection in urine sediment by light microscopy NONE 0 - 5 04/10/2018 [facility] Bacteria detection in urine sediment by light microscopy NONE NONE 04/10/2018 [facility] Epithelial cells detection in urine sediment by light microscopy NONE NONE 04/10/2018 [facility] Serum or plasma sodium measurement (moles/volume) 133 136 - 145 04/10/2018 [facility] Serum or plasma potassium measurement (moles/volume) 4.1 3.5 - 5.1 04/10/2018 [facility] Serum or plasma chloride measurement (moles/volume) 103 98 - 107 04/10/2018 [facility] Serum or plasma carbon dioxide, total measurement (moles/volume) 25 22 - 29 04/10/2018 [facility] Serum or plasma anion gap 9.1 8 - 16 04/10/2018 [facility] Serum or plasma urea nitrogen measurement (mass/volume) 10 7 - 26 04/10/2018 [facility] Serum or plasma creatinine measurement (mass/volume) 1.06 0.72 - 1.25 04/10/2018 [facility] Serum or plasma urea nitrogen/creatinine mass ratio 9 6 - 25 04/10/2018 [facility] Estimated glomerular filtration rate (GFR) determination > 60 60 04/10/2018 [facility] Glucose measurement 159 74 - 118 04/10/2018 [facility] Serum or plasma calcium measurement (mass/volume) 8.9 8.4 - 10.2 04/10/2018 [facility] Serum or plasma total bilirubin measurement (mass/volume) 0.4 0.2 - 1.2 04/10/2018 [facility] Aspartate Amino Transf (AST/SGOT) 25 5 - 34 04/10/2018 [facility] Serum or plasma alanine aminotransferase measurement (enzymatic activity/volume) 33 0 - 55 04/10/2018 [facility] Serum or plasma protein measurement (mass/volume) 6.1 6.5 - 8.1 04/10/2018 [facility] Serum or plasma albumin measurement (mass/volume) 3.6 3.5 - 5.0 04/10/2018 [facility] Plasma globulin measurement (mass/volume) 2.5 2.3 - 3.5 04/10/2018 [facility] Serum or plasma albumin/globulin mass ratio 1.4 0.8 - 2.0 04/10/2018 [facility] Serum or plasma alkaline phosphatase measurement (enzymatic activity/volume) 90 40 - 150 04/10/2018 [facility] BNP Bld-mCnc 55.4 0 - 100 04/10/2018 [facility] Serum or plasma creatine kinase measurement (enzymatic activity/volume) 138 30 - 200 04/10/2018 [facility] Serum or plasma creatine kinase MB measurement (mass/volume) 2.20 0 - 5.0 04/10/2018 [facility] Troponin I measurement by highly sensitive enzyme immunoassay < 0.001 0 - 0.300 04/10/2018 [facility] Serum or plasma amylase measurement (enzymatic activity/volume) 26 25 - 125 04/10/2018 [facility] Serum or plasma lipase measurement (enzymatic activity/volume) 30 8 - 78 04/10/2018 [facility] Capillary blood glucose measurement by glucometer (mass/volume) 145 70 - 120 02/13/2018 [facility] Capillary blood glucose measurement by glucometer (mass/volume) 145 70 - 120 02/13/2018 [facility] Urine opiates screening test NEGATIVE NEGATIVE 02/09/2018 [facility] Barbiturates screen, urine NEGATIVE NEGATIVE 02/09/2018 [facility] Urine phencyclidine detection by screening method NEGATIVE NEGATIVE 02/09/2018 [facility] Urine amphetamines detection by screen method > 1000 ng/mL NEGATIVE NEGATIVE 02/09/2018 [facility] [facility] Urine Methamphetamines Screen NEGATIVE NEGATIVE 02/09/2018 [facility] Urine benzodiazepines detection by screening method NEGATIVE NEGATIVE 02/09/2018 [facility] Urine cocaine measurement (mass/volume) NEGATIVE NEGATIVE 02/09/2018 [facility] Urine cannabinoids detection by screening method NEGATIVE NEGATIVE 02/09/2018 [facility] Urine methadone screen NEGATIVE NEGATIVE 02/09/2018 [facility] Venous Blood pH 7.435 7.35 - 7.38 02/09/2018 [facility] Venous Blood Partial Pressure CO2 36.1 44 - 48 02/09/2018 [facility] Venous Blood Partial Pressure O2 37 40 - 41 02/09/2018 [facility] Venous Blood HCO3 24.1 21 - 22 02/09/2018 [facility] Venous Blood Total Carbon Dioxide 25 02/09/2018 [facility] Venous Blood Base Excess 0 02/09/2018 [facility] Venous Blood Oxygen Saturation 73 02/09/2018 [facility] FiO2 21 02/09/2018 [facility] Venous Blood pH 7.435 7.35 - 7.38 02/09/2018 [facility] Venous Blood Partial Pressure CO2 36.1 44 - 48 02/09/2018 [facility] Venous Blood Partial Pressure O2 37 40 - 41 02/09/2018 [facility] Venous Blood HCO3 24.1 21 - 22 02/09/2018 [facility] Venous Blood Total Carbon Dioxide 25 02/09/2018 [facility] Venous Blood Base Excess 0 02/09/2018 [facility] Venous Blood Oxygen Saturation 73 02/09/2018 [facility] FiO2 21 02/09/2018 [facility] Serum or plasma magnesium measurement (mass/volume) 1.8 1.3 - 2.1 02/09/2018 [facility] Serum or plasma magnesium measurement (mass/volume) 1.8 1.3 - 2.1 02/09/2018 [facility] Lactic Acid Level 14.5 4.5 - 19.8 06/23/2017 [facility] Lactic Acid Level 14.5 4.5 - 19.8 06/23/2017 [facility] Automated blood basophil count (count/volume) Automated blood basophil count (count/volume) 0.0 0.0 - 0.1 06/23/2017 [facility] Automated blood basophil count as percentage of total leukocytes Automated blood basophil count as percentage of total leukocytes 0.4 0.0 - 1.0 06/23/2017 [facility] Automated blood eosinophil count Automated blood eosinophil count 0.1 0.0 - 0.4 06/23/2017 [facility] Automated blood eosinophil count as percentage of total leukocytes Automated blood eosinophil count as percentage of total leukocytes 1.9 0.0 - 6.0 06/23/2017 [facility] Automated blood hematocrit (volume fraction) Automated blood hematocrit (volume fraction) 40.9 38.2 - 49.6 06/23/2017 [facility] Automated blood lymphocyte count as percentage ot total leukocytes Automated blood lymphocyte count as percentage ot total leukocytes 28.8 18.0 - 39.1 06/23/2017 [facility] Automated blood monocyte count as percentage of total leukocytes Automated blood monocyte count as percentage of total leukocytes 6.9 4.4 - 11.3 06/23/2017 [facility] Automated blood neutrophil count Automated blood neutrophil count 4.3 2.1 - 6.9 06/23/2017 [facility] Automated blood platelet count (count/volume) Automated blood platelet count (count/volume) 235 140 - 360 06/23/2017 [facility] Automated blood segmented neutrophil count as percentage of total leukocytes Automated blood segmented neutrophil count as percentage of total leukocytes 61.3 38.7 - 80.0 06/23/2017 [facility] Automated erythrocyte mean corpuscular hemoglobin (mass per erythrocyte) Automated erythrocyte mean corpuscular hemoglobin (mass per erythrocyte) 31.0 28 - 32 06/23/2017 [facility] Automated erythrocyte mean corpuscular hemoglobin concentration measurement (mass/volume) Automated erythrocyte mean corpuscular hemoglobin concentration measurement (mass/volume) 34.5 31 - 35 06/23/2017 [facility] Automated erythrocyte mean corpuscular volume Automated erythrocyte mean corpuscular volume 89.9 81 - 99 06/23/2017 [facility] Blood erythrocytes automated count (number/volume) Blood erythrocytes automated count (number/volume) 4.55 4.3 - 5.7 06/23/2017 [facility] Blood hemoglobin measurement (moles/volume) Blood hemoglobin measurement (moles/volume) 14.1 14.0 - 18.0 06/23/2017 [facility] Blood leukocytes automated count (number/volume) Blood leukocytes automated count (number/volume) 6.97 4.8 - 10.8 06/23/2017 [facility] Blood lymphocytes count (number/volume) Blood lymphocytes count (number/volume) 2.0 1.0 - 3.2 06/23/2017 [facility] Blood monocytes automated count (number/volume) Blood monocytes automated count (number/volume) 0.5 0.2 - 0.8 06/23/2017 [facility] Estimated glomerular filtration rate (GFR) determination Estimated glomerular filtration rate (GFR) determination 58 60 06/23/2017 [facility] Glucose measurement Glucose measurement 107 74 - 118 06/23/2017 [facility] Plasma globulin measurement (mass/volume) Plasma globulin measurement (mass/volume) 4.0 2.3 - 3.5 06/23/2017 [facility] Serum or plasma alanine aminotransferase measurement (enzymatic activity/volume) Serum or plasma alanine aminotransferase measurement (enzymatic activity/volume) 23 0 - 55 06/23/2017 [facility] Serum or plasma albumin measurement (mass/volume) Serum or plasma albumin measurement (mass/volume) 3.9 3.5 - 5.0 06/23/2017 [facility] Serum or plasma albumin/globulin mass ratio Serum or plasma albumin/globulin mass ratio 1.0 0.8 - 2.0 06/23/2017 [facility] Serum or plasma alkaline phosphatase measurement (enzymatic activity/volume) Serum or plasma alkaline phosphatase measurement (enzymatic activity/volume) 89 40 - 150 06/23/2017 [facility] Serum or plasma amylase measurement (enzymatic activity/volume) Serum or plasma amylase measurement (enzymatic activity/volume) 31 25 - 125 06/23/2017 [facility] Serum or plasma anion gap Serum or plasma anion gap 17.8 8 - 16 06/23/2017 [facility] Serum or plasma calcium measurement (mass/volume) Serum or plasma calcium measurement (mass/volume) 9.5 8.4 - 10.2 06/23/2017 [facility] Serum or plasma carbon dioxide, total measurement (moles/volume) Serum or plasma carbon dioxide, total measurement (moles/volume) 25 22 - 29 06/23/2017 [facility] Serum or plasma chloride measurement (moles/volume) Serum or plasma chloride measurement (moles/volume) 100 98 - 107 06/23/2017 [facility] Serum or plasma creatinine measurement (mass/volume) Serum or plasma creatinine measurement (mass/volume) 1.32 0.72 - 1.25 06/23/2017 [facility] Serum or plasma lipase measurement (enzymatic activity/volume) Serum or plasma lipase measurement (enzymatic activity/volume) 34 8 - 78 06/23/2017 [facility] Serum or plasma magnesium measurement (mass/volume) Serum or plasma magnesium measurement (mass/volume) 2.1 1.3 - 2.1 06/23/2017 [facility] Serum or plasma potassium measurement (moles/volume) Serum or plasma potassium measurement (moles/volume) 3.8 3.5 - 5.1 06/23/2017 [facility] Serum or plasma protein measurement (mass/volume) Serum or plasma protein measurement (mass/volume) 7.9 6.5 - 8.1 06/23/2017 [facility] Serum or plasma sodium measurement (moles/volume) Serum or plasma sodium measurement (moles/volume) 139 136 - 145 06/23/2017 [facility] Serum or plasma total bilirubin measurement (mass/volume) Serum or plasma total bilirubin measurement (mass/volume) 0.4 0.2 - 1.2 06/23/2017 [facility] Serum or plasma urea nitrogen measurement (mass/volume) Serum or plasma urea nitrogen measurement (mass/volume) 17 7 - 26 06/23/2017 [facility] Serum or plasma urea nitrogen/creatinine mass ratio Serum or plasma urea nitrogen/creatinine mass ratio 13 6 - 25 06/23/2017 [facility] Red Cell Distribution Width 13.5 11.7 - 14.4 06/23/2017 [facility] IM GRANULOCYTES % 0.7 0.0 - 1.0 06/23/2017 [facility] Absolute Immature Granulocyte (auto 0.05 0 - 0.1 06/23/2017 [facility] Aspartate Amino Transf (AST/SGOT) 31 5 - 34 06/23/2017 [facility] Serum or plasma creatine kinase MB measurement (mass/volume) Serum or plasma creatine kinase MB measurement (mass/volume) 1.10 0 - 5.0 2017 [facility] Serum or plasma creatine kinase measurement (enzymatic activity/volume) Serum or plasma creatine kinase measurement (enzymatic activity/volume) 69 30 - 200 2017 [facility] Troponin I measurement by highly sensitive enzyme immunoassay Troponin I measurement by highly sensitive enzyme immunoassay <0.001 0 - 0.300 2017 [facility] Serum or plasma cholesterol in HDL measurement (mass/volume) Serum or plasma cholesterol in HDL measurement (mass/volume) 25 40 - 60 2017 [facility] Serum or plasma cholesterol in LDL measurement (mass/volume) Serum or plasma cholesterol in LDL measurement (mass/volume) 52 60 - 130 2017 [facility] Serum or plasma cholesterol measurement (mass/volume) Serum or plasma cholesterol measurement (mass/volume) 132 0 - 199 2017 [facility] Serum or plasma total cholesterol/cholesterol in HDL mass ratio Serum or plasma total cholesterol/cholesterol in HDL mass ratio 5.3 3.9 - 4.7 2017 [facility] Serum or plasma triglyceride measurement (mass/volume) Serum or plasma triglyceride measurement (mass/volume) 276 0 - 149 2017 [facility] Activated partial thromboplastin time (aPTT) in platelet poor plasma bycoagulation assay Activated partial thromboplastin time (aPTT) in platelet poor plasma bycoagulation assay 32.7 23.8 - 35.5 05/26/2017 [facility] INR in Platelet poor plasma by Coagulation assay INR in Platelet poor plasma by Coagulation assay 1.14 05/26/2017 [facility] Prothrombin time (PT) in platelet poor plasma by coagulation assay Prothrombin time (PT) in platelet poor plasma by coagulation assay 13.7 11.9 - 14.5 05/26/2017 [facility] Automated urine sediment leukocyte count by microscopy (number/high power field) Automated urine sediment leukocyte count by microscopy (number/high power field) <10 0 - 5 04/20/2017 [facility] Bacteria detection in urine sediment by light microscopy Bacteria detection in urine sediment by light microscopy NONE NONE 04/20/2017 [facility] Calcium oxalate crystals detection in urine sediment by light microscopy Calcium oxalate crystals detection in urine sediment by light microscopy RARE FEW 04/20/2017 [facility] Epithelial cells detection in urine sediment by light microscopy Epithelial cells detection in urine sediment by light microscopy NONE NONE 04/20/2017 [facility] Erythrocytes detection in urine sediment by light microscopy Erythrocytes detection in urine sediment by light microscopy <5 0 - 5 04/20/2017 [facility] Specific gravity of Urine by Test strip Specific gravity of Urine by Test strip 1.020 1.010 - 1.025 04/20/2017 [facility] Urine clarity Urine clarity CLEAR CLEAR 04/20/2017 [facility] Urine color determination Urine color determination YELLOW YELLOW 04/20/2017 [facility] Urine erythrocytes detection Urine erythrocytes detection NEGATIVE NEGATIVE 04/20/2017 [facility] Urine glucose detection Urine glucose detection NEGATIVE NEGATIVE 04/20/2017 [facility] Urine ketones detection by automated test strip Urine ketones detection by automated test strip TRACE NEGATIVE 04/20/2017 [facility] Urine leukocyte esterase detection by dipstick Urine leukocyte esterase detection by dipstick 1+ NEGATIVE 04/20/2017 [facility] Urine nitrite detection Urine nitrite detection NEGATIVE NEGATIVE 04/20/2017 [facility] Urine pH measurement by automated test strip Urine pH measurement by automated test strip 5 5 - 7 04/20/2017 [facility] Urine protein measurement by test strip (mass/volume) Urine protein measurement by test strip (mass/volume) NEGATIVE NEGATIVE 04/20/2017 [facility] Urine total bilirubin measurement (mass/volume) Urine total bilirubin measurement (mass/volume) 1+ NEGATIVE 04/20/2017 [facility] Urine urobilinogen measurement by test strip (mass/volume) Urine urobilinogen measurement by test strip (mass/volume) 0.2 0.2 - 1 04/20/2017 [facility] Phosphorus measurement Phosphorus measurement 3.8 2.3 - 4.7 04/20/2017 [facility] Serum or plasma uric acid measurement (mass/volume) Serum or plasma uric acid measurement (mass/volume) 9.7 4.8 - 8.0 04/20/2017 [facility] Fibrin D-dimer DDU measurement in platelet poor plasma (mass/volume) Fibrin D-dimer DDU measurement in platelet poor plasma (mass/volume) 0.56 0.00 - 0.45 04/19/2017 [facility] B-Type Natriuretic Peptide <12.0 0 - 100 04/19/2017 [facility] Pathology Reports No Data Provided for This Section Diagnostic Reports No Data Provided for This Section Consultation Notes No Data Provided for This Section Discharge Summaries No Data Provided for This Section History and Physicals No Data Provided for This Section Vital Signs Vital Sign Value Date Comments Source Systolic (mm Hg) 117 04/24/2018 [facility] Diastolic (mm Hg) 74 04/24/2018 [facility] Heart Rate 81 04/24/2018 [facility] Encounters Location Location Details Encounter Type Encounter Number Reason For Visit Attending Provider ADM Date DC Date Status Source Outpatient [id number] TANA BENNETT 01/08/2016 [facility] Discharged Inpatient (obs) [id number] ALVARO SCHUMACHER MD 04/20/2017 04/21/2017 [facility] Discharged Inpatient (obs) [id number] DIANE RENTERIA MD 05/26/2017 2017 [facility] Departed Emergency Room [id number] DEBRA CLOUD MD 06/23/2017 06/23/2017 [facility] Departed Emergency Room [id number] ORACIO STARR MD 01/02/2018 01/02/2018 [facility] Discharged Inpatient [id number] DEXTER DILL MD 02/09/2018 02/13/2018 [facility] Departed Emergency Room [id number] ORACIO STARR MD 04/10/2018 04/10/2018 [facility] Travel [id number] 04/24/2018 [facility] Therapy [id number] Katina Tracy PT 04/24/2018 04/24/2018 [facility] Departed Emergency Room [id number] REED CURTIS MD 05/29/2018 05/29/2018 [facility] Procedures Procedure Code Date Perfomer Comments Source Computed tomography of brain without radiopaque contrast [id number] 02/10/2018 [facility] Computed tomography of chest with contrast [id number] 02/09/2018 [place] [facility] Computed tomography of abdomen and pelvis with contrast [id number] 06/23/2017 [facility] Assessment and Plan No Data Provided for This Section Plan of Care Plan of Care Date Source IMM Influenza Seasonal Nov to April (>/=19 yrs) 11/18/2018 [facility] Discharge Date 05/29/18 2:41am Disposition HOME, SELF-CARE Condition at Discharge Stable Instructions/Education Provided Chest Pain - Noncardiac Prescriptions See Medication Section 05/29/2018 [facility] Discharge Date 04/10/18 6:25pm Disposition HOME, SELF-CARE Condition at Discharge Stable Instructions/Education Provided Chest Pain - Chest Wall Forms Provided Work/School Excuse Prescriptions See Medication Section Referrals MARYBEL WOODARD MD Address: [address] [place] [id number] Additional Instructions/Education 1. 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 as an outpt you are not having an acute cardiac event at this time 04/10/2018 [facility] IMM Influenza Seasonal Nov to April (>/=19 yrs) 11/18/2017 [facility] Discharge Date 06/23/17 11:07pm Disposition HOME, SELF-CARE Condition at Discharge Stable Instructions/Education Provided Abdominal Pain - Adult Vomiting - Adult Forms Provided Work/School Excuse Prescriptions See Medication Section Referrals JULIO PETTY MD Order Date: Call for an appointment Address: [address] [place] [phone] Additional Instructions/Education Call for follow up appointment to see your medical provider or the referral listed. Take over the counter Motrin or Tylenol medication as needed for comfort. If prescribed pain medication on discharge, take the pain medication as prescribed and adhere to the warnings given for pain medication such as no swimming, driving operating heavy machinery, drinking or mixing with other medications that can interact with the narcotic. discussed at the bedside, drink fluids, rest and return to the emergency department for any fever, shortness of breath, chest pain, abdominal pain, trouble handling oral secretions or any new concerns. 06/23/2017 [facility] Social History Social History Date Source Social History Problem Response Recorded Date/Time Onset [...] Applicable Smoking Status Start Date Stop Date Never Smoker 05/29/2018 [facility] Tobacco UseTypesPacks/DayYears UsedDate Never Assessed Sex Assigned at BirthDate Recorded Not on file Job Start DateOccupationIndustry Not on file Not on file Not on file Travel HistoryTravel StartTravel End No recent travel history available. 07/03/2010 [facility] Family History No Data Provided for This Section Advance Directives Order Name Results Value Date Source Advance Directives Advance Directives Latest Code Status on FileCode StatusDate ActivatedDate InactivatedComments Full Code 07/03/2010 10:11 AM 07/04/2010 9:05 PM 09/03/2018 [facility] Advance Directives Advance Directives Latest Code Status on FileCode StatusDate ActivatedDate InactivatedComments Full Code 07/03/2010 10:11 AM 07/04/2010 9:05 PM 07/10/2018 [facility] Advance Directives Advance Directives For more information, please contact:[address] [id number] Code Status on FileCode StatusDate ActivatedDate InactivatedComments Full Code 07/03/2010 10:11 AM 07/04/2010 9:05 PM 07/06/2018 [facility] Advance Directives Advance Directives For more information, please contact:[address] [id number] Code Status on FileCode StatusDate ActivatedDate InactivatedComments Full Code 07/03/2010 10:11 AM 07/04/2010 9:05 PM 06/01/2018 [facility] Advance Directives Advance Directives Directive Response Recorded Date/Time Does the patient have an advance directive? No 02/09/18 7:58am Do you have a Directive to Physician? No 05/29/18 12:19am Do you have a Medical Power of Mysql Database Administrator? No 05/29/18 12:19am Do you have an out of hospital Do Not Resuscitate Order? No 05/29/18 12:19am Do you have any special needs we should be aware of? No 05/29/18 12:19am Do you have a support person here with you today? No 05/29/18 12:19am Did patient receive Notice of Privacy Practices? Yes 05/29/18 12:19am Did patient receive patient rights and responsibilities? Yes 05/29/18 12:19am 05/29/2018 [facility] Advance Directives Advance Directives For more information, please contact:[address] [id number] Code Status on FileCode StatusDate ActivatedDate InactivatedComments Full Code 07/03/2010 10:11 AM 07/04/2010 9:05 PM 05/28/2018 [facility] Advance Directives Advance Directives For more information, please contact:[address] [id number] Code Status on FileCode StatusDate ActivatedDate InactivatedComments Full Code 07/03/2010 10:11 AM 07/04/2010 9:05 PM 05/07/2018 [facility] Advance Directives Advance Directives For more information, please contact:[address] [id number] Code Status on FileCode StatusDate ActivatedDate InactivatedComments Full Code 07/03/2010 10:11 AM 07/04/2010 9:05 PM 04/24/2018 [facility] Advance Directives Advance Directives Directive Response Recorded Date/Time Does the patient have an advance directive? No 02/09/18 7:58am Do you have a Directive to Physician? No 04/10/18 2:32pm Do you have a Medical Power of Mysql Database Administrator? No 04/10/18 2:32pm Do you have an out of hospital Do Not Resuscitate Order? No 04/10/18 2:32pm Do you have any special needs we should be aware of? No 04/10/18 2:32pm Do you have a support person here with you today? No 04/10/18 2:32pm Did patient receive Notice of Privacy Practices? Yes 04/10/18 2:32pm Did patient receive patient rights and responsibilities? Yes 04/10/18 2:33pm 04/10/2018 [facility] Advance Directives Advance Directives Directive Response Recorded Date/Time Does the patient have an advance directive? No 05/27/17 1:44am If yes, is advance directive on file with [facility]? No 05/27/17 1:44am If not on file with [facility] will patient provide a copy? Yes 05/27/17 1:44am Do you have a Directive to Physician? No 06/23/17 9:24pm Do you have a Medical Power of Mysql Database Administrator? No 06/23/17 9:24pm Do you have an out of hospital Do Not Resuscitate Order? No 06/23/17 9:24pm Do you have any special needs we should be aware of? No 06/23/17 9:24pm Do you have a support person here with you today? No 06/23/17 9:24pm Did patient receive Notice of Privacy Practices? Yes 06/23/17 9:24pm Did patient receive patient rights and responsibilities? Yes 06/23/17 9:24pm 06/23/2017 [facility] Functional Status No Data Provided for This Section
--- OUTSIDE RECORDS SUMMARY | 2018-10-22 17:55 | XMS REPORT ---
Author Author [facility] Address Unknown Phone Unavailable Care Team Providers Care Automobile Tester Name Role Phone UNKNOWN, REFFERING PP Unavailable Nilson CURTIS Unavailable Unavailable Mattie STARR Unavailable Unavailable DEXTER DILL Unavailable Unavailable Jean Carlos CLOUD Unavailable Unavailable Kassandra HARMAN Unavailable Unavailable Jean Carlos IVERSON Unavailable Unavailable JUAN MIGUEL, RILEY Unavailable Unavailable Hubert Pina Unavailable Unavailable Payers Payer Name Policy Type Policy Number Effective Date Expiration Date Problems This patient has no known problems. Allergies, Adverse Reactions, Alerts Allergy Name Allergy Type Status Severity Reaction(s) Onset Date Inactive Date Treating Clinician Comments morphine DA Active U 2018-08-05 00:00:00 ampicillin DA Active 2018-08-04 00:00:00 tramadol DA Active U 2018-08-04 00:00:00 gabapentin DA Active 2018-08-04 00:00:00 metoclopramide DA Active U 2018-08-04 00:00:00 ondansetron DA Active AR 2018-08-04 00:00:00 ketorolac DA Active VA 2018-08-04 00:00:00 morphine DA Active AR 2018-06-05 00:00:00 ampicillin DA Active 2018-06-05 00:00:00 tramadol DA Active U 2018-06-05 00:00:00 gabapentin DA Active 2018-06-05 00:00:00 metoclopramide DA Active U 2018-06-05 00:00:00 ondansetron DA Active AR 2018-06-05 00:00:00 ketorolac DA Active MO 2018-06-05 00:00:00 morphine DA Active AR 2018-03-27 00:00:00 ampicillin DA Active SV 2018-03-27 00:00:00 tramadol DA Active U 2018-03-27 00:00:00 gabapentin DA Active SV 2018-03-27 00:00:00 metoclopramide DA Active U 2018-03-27 00:00:00 ondansetron DA Active AR 2018-03-27 00:00:00 ketorolac DA Active MO 2018-03-27 00:00:00 morphine DA Active AR 2017-11-20 00:00:00 ampicillin DA Active SV 2017-11-20 00:00:00 tramadol DA Active U 2017-11-20 00:00:00 gabapentin DA Active SV 2017-11-20 00:00:00 metoclopramide DA Active U 2017-11-20 00:00:00 ondansetron DA Active AR 2017-11-20 00:00:00 ketorolac DA Active MO 2017-11-20 00:00:00 morphine DA Active AR 2017-11-01 00:00:00 ampicillin DA Active SV 2017-11-01 00:00:00 tramadol DA Active U 2017-11-01 00:00:00 gabapentin DA Active SV 2017-11-01 00:00:00 metoclopramide DA Active U 2017-11-01 00:00:00 ondansetron DA Active AR 2017-11-01 00:00:00 ketorolac DA Active MO 2017-11-01 00:00:00 morphine DA Active AR 2017-09-29 00:00:00 ampicillin DA Active 2017-09-29 00:00:00 tramadol DA Active U 2017-09-29 00:00:00 gabapentin DA Active SV 2017-09-29 00:00:00 metoclopramide DA Active U 2017-09-29 00:00:00 ondansetron DA Active AR 2017-09-29 00:00:00 ketorolac DA Active MO 2017-09-29 00:00:00 Medications This patient has no known medications. Encounters Start Date/Time End Date/Time Encounter Type Admission Type Attending [facility] Care Department Encounter ID 2018-04-24 13:35:46 2018-04-24 13:35:46 Outpatient [facility] [id number] Results Test Description Test Time Test Comments Text Results Atomic Results Result Comments URINALYSIS COMPLETE 2018-10-08 13:37:00 UA COLOR (test code=COLU) Light-Yellow YELLOW UA APPEARANCE (test code=APPU) CLEAR CLEAR UA GLUCOSE DIPSTICK (test code=DGLUU) >1000 (4+) mg/dL NEGATIVE UA BILIRUBIN DIPSTICK (test code=BILU) NEGATIVE mg/dL NEGATIVE UA KETONE DIPSTICK (test code=KETU) NEGATIVE mg/dL NEGATIVE UA SPECIFIC GRAVITY (test code=SGU) 1.028 1.001-1.035 UA BLOOD DIPSTICK (test code=JOAQUIN) Negative mg/dL NEGATIVE UA PH DIPSTICK (test code=ROXIE) 5.5 5.0-8.0 UA PROTEIN DIPSTICK (test code=PROU) NEGATIVE mg/dL NEGATIVE UA UROBILINIOGEN DIPSTICK (test code=URO) Normal mg/dL NEGATIVE UA NITRITE DIPSTICK (test code=TWIN) NEGATIVE NEGATIVE UA LEUKOCYTE ESTERASE W REFLEX (test code=LEUUR) NEGATIVE Donal/uL NEGATIVE UA WBC (test code=WBCU) 0-5 per HPF 0-5 UA RBC (test code=RBCU) 0-2 #/HPF 0-5 UA EPITHELIAL CELLS (test code=EPIU) FEW per HPF FEW UA BACTERIA (test code=BACU) FEW #/HPF NONE UA MUCUS (test code=MUCU) FEW #/LPF FEW Urine Source? Clean CatchDRUGS OF ABUSE SCREEN [id number] 13:37:00* Test Item Value Reference Range Comments URN COCAINE (test code=COCAURN) NEGATIVE <300 ng/mL URN CANNABINOIDS (test code=CANNABURN) NEGATIVE <50 ng/mL URN AMPHETAMINE (test code=AMPHETURN) NEGATIVE <1000 ng/mL URN BARBITURATE (test code=BARBITURN) NEGATIVE <200 ng/mL URN BENZODIAZEPINE (test code=BENZOURN) NEGATIVE <200 ng/mL URN OPIATES (test code=OPIATURN) POSITIVE <300 ng/mL This test provides only a preliminary test result. A morespecific alternate chemical method must be used in order toobtain a confirmed analytical result. Gas chromatography/mass spectrometry (GC/MS) is thepreferred confirmatory method. Other chemical confirmationmethods are available. Clinical consideration and professional judgment should be applied to any drug of abusetest result, particularly when preliminary positive resultsare used.Unconfirmed screening results must not be used fornon-medical purposes (e.g., employment testing, legaltesting). URN PHENCYCLIDINE (PCP) (test code=PHENCURN) NEGATIVE <25 ng/mL URN METHADONE (test code=METHAURN) NEGATIVE <300 ng/mL Urine Source? Clean CatchURINALYSIS [id number] 13:13:00* Test Item Value Reference Range Comments UA COLOR (test code=COLU) Light-Yellow YELLOW UA APPEARANCE (test code=APPU) CLEAR CLEAR UA GLUCOSE DIPSTICK (test code=DGLUU) >1000 (4+) mg/dL NEGATIVE UA BILIRUBIN DIPSTICK (test code=BILU) NEGATIVE mg/dL NEGATIVE UA KETONE DIPSTICK (test code=KETU) NEGATIVE mg/dL NEGATIVE UA SPECIFIC GRAVITY (test code=SGU) 1.028 1.001-1.035 UA BLOOD DIPSTICK (test code=JOAQUIN) Negative mg/dL NEGATIVE UA PH DIPSTICK (test code=ROXIE) 5.5 5.0-8.0 UA PROTEIN DIPSTICK (test code=PROU) NEGATIVE mg/dL NEGATIVE UA UROBILINIOGEN DIPSTICK (test code=URO) Normal mg/dL NEGATIVE UA NITRITE DIPSTICK (test code=TWIN) NEGATIVE NEGATIVE UA LEUKOCYTE ESTERASE W REFLEX (test code=LEUUR) NEGATIVE Donal/uL NEGATIVE UA WBC (test code=WBCU) 0-5 per HPF 0-5 UA RBC (test code=RBCU) 0-2 #/HPF 0-5 UA EPITHELIAL CELLS (test code=EPIU) FEW per HPF FEW UA BACTERIA (test code=BACU) FEW #/HPF NONE UA MUCUS (test code=MUCU) FEW #/LPF FEW Urine Source? Clean CatchDRUGS OF ABUSE SCREEN [id number] 13:13:00* Test Item Value Reference Range Comments URN COCAINE (test code=COCAURN) <300 ng/mL URN CANNABINOIDS (test code=CANNABURN) <50 ng/mL URN AMPHETAMINE (test code=AMPHETURN) <1000 ng/mL URN BARBITURATE (test code=BARBITURN) <200 ng/mL URN BENZODIAZEPINE (test code=BENZOURN) <200 ng/mL URN OPIATES (test code=OPIATURN) <300 ng/mL URN PHENCYCLIDINE (PCP) (test code=PHENCURN) <25 ng/mL URN METHADONE (test code=METHAURN) <300 ng/mL Urine Source? Clean CatchB-TYPE NATRIURETIC [id number] 12:08:00* Test Item Value Reference Range Comments B-TYPE NATRIURETIC PEPTIDE (test code=BNP) 22.65 pgram/mL 0-100 [id number] 11:48:00* Test Item Value Reference Range Comments MAGNESIUM (test code=MAG) 2.2 mg/dL 1.8-2.4 - CT HEAD/BRAIN W/O [id number] 11:41:00 Name: ARANZA WHITNEY [facility] : 1970 Age/S: 48 / M [address] [facility] Unit #: [id number] Loc: [place] [address] Phys: Jan Ly MD Acct: [id number] Dis Date: Status: ADM IN PHONE #: [phone] Exam Date: 10/08/2018 1122 FAX #: [phone] Reason: ams EXAMS: CPT CODE: [id number] CT HEAD/BRAIN W/O CONT 46620 HISTORY: Confusion. COMPARISON: August 05, 2018. CT brain without contrast: Automated exposure control No acute intracranial bleeds or extra-axial collections and there is no acute territorial vascular infarction. The carter-white matter differentiation is preserved. The sulci, gyri, ventricles and subarachnoid spaces and the basilar cisterns are normal for patient's age. No herniation or hydrocephalus or midline shift is noted. Fourth ventricle remains midline. Portions of the visualized paranasal sinuses are unremarkable. No obvious bony calvarial defect is noted. IMPRESSION: No acute intracranial bleeds or extra-axial collections. No acute territorial vascular infarction. No herniation or hydrocephalus or midline shift. at 1141 Reported and signed by: Oliver Martinez M.D. CC: Jan Ly MD; Blake Cruz MD Technologist:Cb Dhaliwal RT(R)(CT) CTDI: DLP: Trnscb Date/Time: 10/08/2018 (4902) [email or web address] Orig Print D/T: S: 10/08/2018 (1597) PAGE 1 Signed Report BASIC METABOLIC [id number] 11:37:00* Test Item Value Reference Range Comments SODIUM (test code=NA) 139 mmol/L 136-145 POTASSIUM (test code=K) 3.6 mmol/L 3.5-5.1 CHLORIDE (test code=CL) 101.0 mmol/L 98-107 CARBON DIOXIDE (test code=CO2) 26.0 mmol/L 21-32 ANION GAP (test code=GAP) 15.6 10-20 GLUCOSE (test code=GLU) 230 mg/dL 74-106 BLOOD UREA NITROGEN (test code=BUN) 19 mg/dL 7-18 GLOMERULAR FILTRATION RATE (test code=GFR) 54 mL/min >=60 Estimated GFR by using Modified MDRD formula.Chronic kidney disease is defined as either kidney damageor GFR <60 mL/min/1.73 m2 for >3 months. CREATININE (test code=CREAT) 1.40 mg/dL 0.7-1.3 BUN/CREATININE RATIO (test code=BUN/CREA) 13.6 10-20 CALCIUM (test code=CA) 9.0 mg/dL 8.5-10.1 HEPATIC FUNCTION [id number] 11:37:00* Test Item Value Reference Range Comments TOTAL PROTEIN (test code=PROT) 6.7 gram/dL 6.4-8.2 ALBUMIN (test code=ALB) 3.6 g/dL 3.4-5.0 GLOBULIN (test code=GLOB) 3.1 gram/dL 2.7-4.2 ALBUMIN/GLOBULIN RATIO (test code=A/G) 1.2 0.75-1.50 BILIRUBIN TOTAL (test code=BILT) 0.40 mg/dL 0.0-1.0 BILIRUBIN DIRECT (test code=BILD) 0.09 mg/dL 0.0-0.20 SGOT/AST (test code=AST) 17 IUnit/L 15-37 SGPT/ALT (test code=ALT) 26 IUnit/L 12-78 ALKALINE PHOSPHATASE TOTAL (test code=ALKP) 116 IUnit/L 45-117 Note change in reference range due to change in reagent. [id number] 11:37:00* Test Item Value Reference Range Comments LIPASE (test code=LIP) 114 U/L 73.0-393.0 THYROID STIMULATING [id number] 11:37:00* Test Item Value Reference Range Comments THYROID STIMULATING HORMONE (test code=TSH) 1.560 uIU/mL 0.36-3.74 TSH REFERENCE RANGES: EUTHYROID: 0.35 - 4.3 mIU/mL HYPO : > 5.5 mIU/mL HYPER : < 0.35 mIU/mL [id number] 11:37:00* Test Item Value Reference Range Comments TROPONIN-I (test code=TROPI) <0.015 ng/mL 0-0.045 [id number] 11:37:00* Test Item Value Reference Range Comments ACETAMINOPHEN (test code=ACET) < 10 mcg/mL 10-30 A RANGE OF 10-30 mcg/mL IS A THERAPEUTIC RANGE. TOXIC CONCENTRATIONS: >150 mcg/mL AT 4 HOURS AFTER INGESTION >=50 mcg/mL AT 12 HOURS AFTER INGESTION [id number] 11:37:00* Test Item Value Reference Range Comments SALICYLATE (test code=JANET) 3.6 mg/dL 2.8-20.0 [id number] 11:37:00* Test Item Value Reference Range Comments ALCOHOL (test code=ALC) < 3 mg/dL 0.0-3.0 INTERPRETIVE DATA NOTE: POSITIVE SCREENING RESULTS SHOULD BE CONSIDERED PRESUMPTIVE.WHEN COLLECTED FOR MEDICAL PURPOSES ONLY. SPECIMEN WILL NOTBE COLLECTED BY CHAIN OF CUSTODY.IF A CONFIRMATION OF POSITIVE RESULTS IS DESIRED, ACONFIRMATION TEST MUST BE REQUESTED BY THE PHYSICIAN AT ANADDITIONAL CHARGE TO THE PATIENT. [id number] 10:58:00* Test Item Value Reference Range Comments AMMONIA (test code=AMM) 31 umol/L 11-32 PROTHROMBIN [id number] 10:57:00* Test Item Value Reference Range Comments PROTHROMBIN TIME PATIENT (test code=PTP) 14.0 seconds 9.0-14.0 INTERNATIONAL NORMAL RATIO (test code=INR) 1.2 0.8-1.2 The therapeutic range for oral anticoagulant therapy formost indications is an international normalized ratio (INR)of between 2.0 and 3.0. The recommended therapeutic INRrange for various clinical situations is listed below: Clinical Situation INR range Pulmonary e mbolism treatment (2.0-3.0)Venous thrombosis treatmentVenous thrombosis prophylaxis (high risk surgery)Prevention of systemic embolism from: Acute myocardial infarction Valvular heart disease Atrial fibrillation Mechanical prosthetic heart valves (2.5-3.5) IS PATIENT ON ANTICOAGULANTS? NTHROMBOPLASTIN TIME [id number] 10:57:00* Test Item Value Reference Range Comments THROMBOPLASTIN TIME PARTIAL (test code=PTT) 39.9 seconds 25.0-36.5 IS PATIENT ON ANTICOAGULANTS? NBASIC METABOLIC [id number] 10:55:00* Test Item Value Reference Range Comments SODIUM (test code=NA) 139 mmol/L 136-145 POTASSIUM (test code=K) 3.6 mmol/L 3.5-5.1 CHLORIDE (test code=CL) 101.0 mmol/L 98-107 CARBON DIOXIDE (test code=CO2) mmol/L 21-32 ANION GAP (test code=GAP) 10-20 GLUCOSE (test code=GLU) mg/dL 74-106 BLOOD UREA NITROGEN (test code=BUN) mg/dL 7-18 GLOMERULAR FILTRATION RATE (test code=GFR) mL/min >=60 CREATININE (test code=CREAT) mg/dL 0.7-1.3 BUN/CREATININE RATIO (test code=BUN/CREA) 10-20 CALCIUM (test code=CA) mg/dL 8.5-10.1 HEPATIC FUNCTION [id number] 10:55:00* Test Item Value Reference Range Comments TOTAL PROTEIN (test code=PROT) gram/dL 6.4-8.2 ALBUMIN (test code=ALB) g/dL 3.4-5.0 GLOBULIN (test code=GLOB) gram/dL 2.7-4.2 ALBUMIN/GLOBULIN RATIO (test code=A/G) 0.75-1.50 BILIRUBIN TOTAL (test code=BILT) mg/dL 0.0-1.0 BILIRUBIN DIRECT (test code=BILD) mg/dL 0.0-0.20 SGOT/AST (test code=AST) IUnit/L 15-37 SGPT/ALT (test code=ALT) IUnit/L 12-78 ALKALINE PHOSPHATASE TOTAL (test code=ALKP) IUnit/L 45-117 [id number] 10:55:00* Test Item Value Reference Range Comments LIPASE (test code=LIP) U/L 73.0-393.0 THYROID STIMULATING [id number] 10:55:00* Test Item Value Reference Range Comments THYROID STIMULATING HORMONE (test code=TSH) uIU/mL 0.36-3.74 [id number] 10:55:00* Test Item Value Reference Range Comments TROPONIN-I (test code=TROPI) ng/mL 0-0.045 [id number] 10:55:00* Test Item Value Reference Range Comments ACETAMINOPHEN (test code=ACET) mcg/mL 10-30 [id number] 10:55:00* Test Item Value Reference Range Comments SALICYLATE (test code=JANET) mg/dL 2.8-20.0 [id number] 10:55:00* Test Item Value Reference Range Comments ALCOHOL (test code=ALC) mg/dL 0-3 CBC W/O [id number] 10:53:00* Test Item Value Reference Range Comments WHITE BLOOD CELL (test code=WBC) 5.8 K/mm3 4.5-12.5 RED BLOOD CELL (test code=RBC) 4.43 mill/mm3 4.0-5.8 HEMOGLOBIN (test code=HGB) 13.5 gram/dL 13.0-17.5 HEMATOCRIT (test code=HCT) 39.9 % 42.0-52.0 MEAN CELL VOLUME (test code=MCV) 90.1 fL 80-98 MEAN CELL HGB (test code=MCH) 30.5 picogram 27.0-33.0 MEAN CELL HGB CONCETRATION (test code=MCHC) 33.8 gram/dL 33.0-36.0 RED CELL DISTRIBUTION WIDTH (test code=RDW) 13.8 % 11.6-16.2 PLATELET COUNT (test code=PLT) 175 K/mm3 150-450 MEAN PLATELET VOLUME (test code=MPV) 10.0 fL 6.7-11.0 - XR CHEST 1 [id number] 10:53:00 FAX: Jan Ly MD [phone] [place]: St: [facility] FAX: Blake Cazares MD [phone] Name: ARANZA WHITNEY [facility] : 1970 Age/S: 48/M [address] [facility] Unit #: [id number] Loc: [place] [address] Phys: Jan Ly MD Acct: [id number] Dis Date: Status: REG ER PHONE #: [phone] Exam Date: 10/08/2018 1044 FAX #: [phone] Reason: WEAKNESS EXAMS: CPT CODE: [id number] XR CHEST 1 V 21961 HISTORY: Weakness. COMPARISON: September 10, 2018. No acute infiltrates, effusion or congestion is noted. Suboptimal inspiration with dependent changes. Moderate cardiomegaly. Patient is post median sternotomy. Cervical fusion in the lower neck. IMPRESSION: No acute infiltrates, effusion or congestion. at 1053 Reported and signed by: Oliver Martinez M.D. CC: Jan Ly MD; Blake Cruz MD Technologist: LAURA DÍAZ, RT(R) [facility] Date/Time/By: 019 (1051) : By: [email or web address] Orig Print D/T: S: 10/08/2018 (0525) PAGE 1 Signed Report CBC W/O [id number] 10:44:00* Test Item Value Reference Range Comments WHITE BLOOD CELL (test code=WBC) K/mm3 4.5-12.5 RED BLOOD CELL (test code=RBC) mill/mm3 4.0-5.8 HEMOGLOBIN (test code=HGB) 13.5 gram/dL 13.0-17.5 HEMATOCRIT (test code=HCT) % 42.0-52.0 MEAN CELL VOLUME (test code=MCV) fL 80-98 MEAN CELL HGB (test code=MCH) picogram 27.0-33.0 MEAN CELL HGB CONCETRATION (test code=MCHC) gram/dL 33.0-36.0 RED CELL DISTRIBUTION WIDTH (test code=RDW) % 11.6-16.2 PLATELET COUNT (test code=PLT) K/mm3 150-450 MEAN PLATELET VOLUME (test code=MPV) fL 6.7-11.0 TROPONIN I [id number] 10:43:00* Test Item Value Reference Range Comments TROPONIN I RAPID (test code=TROPIRAP) 0.00 ng/mL <0.08 Please Note New Reference Range 0.00-0.079 ng/mL - Negative>or=0.08 ng/mL - Positive The use of serial sampling and testing protocol is arecommended practice.An elevated troponin level alone is often not sufficient fordiagnosis of myocardial infarction. Troponin results obtained by different assays may vary.Evaluation of the extent of myocardial damage based onincrease of troponin would be valid only if similarmethodology is used. ARTERIAL BLOOD [id number] 10:42:00* Test Item Value Reference Range Comments ARTERIAL BLOOD GAS PH (test code=PHA) 7.41 7.35-7.45 ARTERIAL BLOOD GAS PCO2 (test code=PCO2A) 39.0 mm Hg 35-45 ARTERIAL BLOOD GAS PO2 (test code=PO2A) 71.1 mmHg 80-100 BICARBONATE TOTAL HCO3 (test code=HCO3) 24.1 mmol/L 23.0-27.0 BASE EXCESS (test code=MYA) -0.4 mmol/L -3.0-5.0 ABG O2 SATURATION (test code=SATA) 93.9 % 90.0-98.0 ABG TYPE (test code=TYPEA) Arterial FIO2 (test code=FIO2A) 21.0 ABG SITE (test code=SITEA) Rt RADIAL ARTERY MODIFIED ALLENS (test code=MODALL) Yes CHECK PERFORMED SODIUM (test code=NA/ABG) 135.0 mEq/L 135-148 POTASSIUM (test code=K/ABG) 3.5 mEq/L 3.5-4.5 CHLORIDE (test code=CL/ABG) 99 mEq/L 98-106 GLUCOSE (test code=GLU/ABG) 235 mg/dL 74-99 HEMATOCRIT (test code=HCT/ABG) 41 % 42-52 IONIZED CALCIUM (test code=CAIABG) 1.13 mmol/L 1.1-1.37 TOTAL HGB (test code=THB) 13.9 gram/dL 13.0-17.5 HGB O2 SAT (test code=HBOSAT) 89.5 % 94.00-98.00 CARBOXYHEMOGLOBIN (test code=HOHGBT) 4.5 %totalHg 0.5-1.5 Results called to and read back by Ibis 10:40 - 10/08/2018; by costa jeff METHEMOGLOBIN (test code=METHGB) 0.2 % 0.0-1.50 O2 CONTENT (test code=O2CT) 17.5 % vol 18.0-22.0 B-TYPE NATRIURETIC [id number] 01:07:00* Test Item Value Reference Range Comments B-TYPE NATRIURETIC PEPTIDE (test code=BNP) 15.1 PG/ML 0-100 BASIC METABOLIC [id number] 01:04:00* Test Item Value Reference Range Comments SODIUM (test code=NA) 139 mEq/L 134-147 POTASSIUM (test code=K) 3.5 mEq/L 3.4-5.0 CHLORIDE (test code=CL) 107 mEq/L 100-108 CARBON DIOXIDE (test code=CO2) 25 mEq/L 21-33 ANION GAP (test code=GAP) 11 0-20 GLUCOSE (test code=GLU) 129 mg/dL 70-110 BLOOD UREA NITROGEN (test code=BUN) 13 mg/dL 7-18 GLOMERULAR FILTRATION RATE (test code=GFR) 71.4 95-105 Units of measure=ml/min/1.73 m2 CREATININE (test code=CREAT) 1.1 mg/dL 0.6-1.3 CALCIUM (test code=CA) 7.7 mg/dL 8.0-10.5 [id number] 01:04:00* Test Item Value Reference Range Comments TROPONIN-I (test code=TROPI) < 0.015 ng/mL 0.000-0.045 Negative: <=0.045 Positive: >=0.046 Correlation with serial results, other cardiac markers andclinical findings is necessary to determine the clinicalsignificance of this result. Results using different methodologies should not be comparedto one another as quantitative results may vary by method. - XR CHEST 2 [id number] 00:54:00 FAX: Ankita Billingsley MD [phone] [place]: St: REG FAX: Rodney Dubon MD [phone] FAX: Blake Cazares MD [phone] Name: ARANZA WHITNEY [facility] : 1970 Age/S: 48/M [address] [place] [address] Unit #: [id number] Loc: [place] [address] Phys: Rodney Dubon MD Acct: [id number] Dis Date: Status: REG ER PH ONE #: [phone] Exam Date: 09/16/2018 003 FAX #: [phone] Reason: chest pain EXAMS: CPT CODE: [id number] XR CHEST 2 V [id number] EXAM: CR, XR chest 2 views: 09/16/2018, 0029 hours HISTORY: chest pain TECHNIQUE: Frontal and lateral chest radiographs are submitted. COMPARISON: None available. FINDINGS: Trachea is in midl ine. Heart is normal in size. Midline sternotomy clips are present. Pul monary vascularity is not congested. Opacities in the right infrahilar shaheen ng. No airspace consolidation, pneumothorax or pleural effusion is seen. Osseous structures are stable. IMPRESSION: Right infrahil ar opacity may represent atelectasis or pneumonia. SL: [JSYED-H] at 0054 Reported and signed by: Jorje Blackmon M.D. CC: Deepak Ruby MD; Rodney Dubon MD; Blake Cruz M.D. Technologist: RT Kaylyn(R) Trnscrd Date/Time/By: 0 09/16/2018 (0054) : By: [email or web address] Orig Print D/T: S: 09/16/2018 (0057) PAGE 1 Signed Report CBC W/AUTO [id number] 00:28:00* Test Item Value Reference Range Comments WHITE BLOOD CELL (test code=WBC) 7.22 x10 3/uL 4.5-11.0 RED BLOOD CELL (test code=RBC) 4.36 x10 6/uL 4.00-5.60 HEMOGLOBIN (test code=HGB) 13.6 g/dL 12.5-16.9 HEMATOCRIT (test code=HCT) 39.7 % 37.5-50.7 MEAN CELL VOLUME (test code=MCV) 91.1 fL 81.0-99.0 MEAN CELL HGB (test code=MCH) 31.2 pg 27.0-33.0 MEAN CELL HGB CONCETRATION (test code=MCHC) 34.3 g/dL 33.0-37.0 RED CELL DISTRIBUTION WIDTH CV (test code=RDW) 14.1 % 11.5-14.5 RED CELL DISTRIBUTION WIDTH SD (test code=RDW-SD) 47.2 fL 37.0-54.0 PLATELET COUNT (test code=PLT) 218 x10 3/uL 150-400 MEAN PLATELET VOLUME (test code=MPV) 9.4 fL 7.0-9.0 NEUTROPHIL % (test code=NT%) 59.1 % 56.0-77.0 IMMATURE GRANULOCYTE % (test code=IG%) 1.0 % 0.0-2.0 LYMPHOCYTE % (test code=LY%) 29.2 % 14.0-32.0 MONOCYTE % (test code=MO%) 7.5 % 4.8-9.0 EOSINOPHIL % (test code=EO%) 2.6 % 0.3-3.7 BASOPHIL % (test code=BA%) 0.6 % 0.0-2.0 NUCLEATED RBC % (test code=NRBC%) 0.0 % 0-0 NEUTROPHIL # (test code=NT#) 4.27 x10 3/uL 2.0-7.6 IMMATURE GRANULOCYTE # (test code=IG#) 0.07 x10 3/uL 0.00-0.03 LYMPHOCYTE # (test code=LY#) 2.11 x10 3/uL 1.0-3.8 MONOCYTE # (test code=MO#) 0.54 x10 3/uL 0.1-0.8 EOSINOPHIL # (test code=EO#) 0.19 x10 3/uL 0.0-0.2 BASOPHIL # (test code=BA#) 0.04 x10 3/uL 0.0-0.2 NUCLEATED RBC # (test code=NRBC#) 0.00 x10 3/uL 0.0-0.1 MANUAL DIFF REQUIRED (test code=MDIFF) NO [id number] 19:28:00* Test Item Value Reference Range Comments GLUBED (test code=GLUBED) 154 MG/DL 70-110 Performed by certified roper operator at [facility] [id number] 12:07:00* Test Item Value Reference Range Comments GLUBED (test code=GLUBED) 213 MG/DL 70-110 Performed by certified roper operator at [facility] [id number] 07:55:00* Test Item Value Reference Range Comments GLUBED (test code=GLUBED) 203 MG/DL 70-110 Performed by certified roper operator at [facility] [id number] 20:11:00* Test Item Value Reference Range Comments GLUBED (test code=GLUBED) 216 MG/DL 70-110 Performed by certified roper operator at [facility] [id number] 16:32:00* Test Item Value Reference Range Comments GLUBED (test code=GLUBED) 257 MG/DL 70-110 Performed by certified roper operator at [facility] [id number] 11:24:00* Test Item Value Reference Range Comments GLUBED (test code=GLUBED) 253 MG/DL 70-110 Performed by certified roper operator at [facility] [id number] 08:54:00* Test Item Value Reference Range Comments GLUBED (test code=GLUBED) 201 MG/DL 70-110 Performed by certified roper operator at [facility] COMPREHENSIVE METABOLIC [id number] 07:38:00* Test Item Value Reference Range Comments SODIUM (test code=NA) 139 mEq/L 134-147 POTASSIUM (test code=K) 3.5 mEq/L 3.4-5.0 CHLORIDE (test code=CL) 104 mEq/L 100-108 CARBON DIOXIDE (test code=CO2) 31 mEq/L 21-33 ANION GAP (test code=GAP) 8 0-20 GLUCOSE (test code=GLU) 216 mg/dL 70-110 BLOOD UREA NITROGEN (test code=BUN) 13 mg/dL 7-18 GLOMERULAR FILTRATION RATE (test code=GFR) 71.4 95-105 Units of measure=ml/min/1.73 m2 CREATININE (test code=CREAT) 1.1 mg/dL 0.6-1.3 TOTAL PROTEIN (test code=PROT) 6.0 g/dL 6.4-8.2 ALBUMIN (test code=ALB) 3.00 g/dL 3.4-5.0 CALCIUM (test code=CA) 8.1 mg/dL 8.0-10.5 BILIRUBIN TOTAL (test code=BILT) 0.20 mg/dL 0.0-1.0 SGOT/AST (test code=AST) 14 IUnit/L 15-37 SGPT/ALT (test code=ALT) 24 IUnit/L 15-65 ALKALINE PHOSPHATASE TOTAL (test code=ALKP) 90 IUnit/L 20-125 CBC W/AUTO [id number] 07:19:00* Test Item Value Reference Range Comments WHITE BLOOD CELL (test code=WBC) 4.67 x10 3/uL 4.5-11.0 RED BLOOD CELL (test code=RBC) 3.73 x10 6/uL 4.00-5.60 HEMOGLOBIN (test code=HGB) 11.6 g/dL 12.5-16.9 HEMATOCRIT (test code=HCT) 34.6 % 37.5-50.7 MEAN CELL VOLUME (test code=MCV) 92.8 fL 81.0-99.0 MEAN CELL HGB (test code=MCH) 31.1 pg 27.0-33.0 MEAN CELL HGB CONCETRATION (test code=MCHC) 33.5 g/dL 33.0-37.0 RED CELL DISTRIBUTION WIDTH CV (test code=RDW) 14.2 % 11.5-14.5 RED CELL DISTRIBUTION WIDTH SD (test code=RDW-SD) 47.4 fL 37.0-54.0 PLATELET COUNT (test code=PLT) 190 x10 3/uL 150-400 MEAN PLATELET VOLUME (test code=MPV) 9.8 fL 7.0-9.0 NEUTROPHIL % (test code=NT%) 63.4 % 56.0-77.0 IMMATURE GRANULOCYTE % (test code=IG%) 1.1 % 0.0-2.0 LYMPHOCYTE % (test code=LY%) 25.3 % 14.0-32.0 MONOCYTE % (test code=MO%) 7.7 % 4.8-9.0 EOSINOPHIL % (test code=EO%) 2.1 % 0.3-3.7 BASOPHIL % (test code=BA%) 0.4 % 0.0-2.0 NUCLEATED RBC % (test code=NRBC%) 0.0 % 0-0 NEUTROPHIL # (test code=NT#) 2.96 x10 3/uL 2.0-7.6 IMMATURE GRANULOCYTE # (test code=IG#) 0.05 x10 3/uL 0.00-0.03 LYMPHOCYTE # (test code=LY#) 1.18 x10 3/uL 1.0-3.8 MONOCYTE # (test code=MO#) 0.36 x10 3/uL 0.1-0.8 EOSINOPHIL # (test code=EO#) 0.10 x10 3/uL 0.0-0.2 BASOPHIL # (test code=BA#) 0.02 x10 3/uL 0.0-0.2 NUCLEATED RBC # (test code=NRBC#) 0.00 x10 3/uL 0.0-0.1 MANUAL DIFF REQUIRED (test code=MDIFF) NO [id number] 03:42:00* Test Item Value Reference Range Comments TROPONIN-I (test code=TROPI) < 0.015 ng/mL 0.000-0.045 Negative: <=0.045 Positive: >=0.046 Correlation with serial results, other cardiac markers andclinical findings is necessary to determine the clinicalsignificance of this result. Results using different methodologies should not be comparedto one another as quantitative results may vary by method. COMMENTS: 3 troponins total (including troponin done in ED)LACTIC ACID 2ND [id number] 02:43:00* Test Item Value Reference Range Comments LACTIC ACID 2ND REPEAT (test code=LACT2) 2.5 mmol/L 0.4-1.9 [id number] 00:32:00* Test Item Value Reference Range Comments TROPONIN-I (test code=TROPI) < 0.015 ng/mL 0.000-0.045 Negative: <=0.045 Positive: >=0.046 Correlation with serial results, other cardiac markers andclinical findings is necessary to determine the clinicalsignificance of this result. Results using different methodologies should not be comparedto one another as quantitative results may vary by method. COMMENTS: 3 troponins total (including troponin done in ED)URINALYSIS COMPLETE 2018-09-11 00:22:00* Test Item Value Reference Range Comments UA COLOR (test code=COLU) YELLOW YEL/STRAW UA APPEARANCE (test code=APPU) CLEAR CLEAR UA GLUCOSE DIPSTICK (test code=DGLUU) NEGATIVE NEGATIVE UA BILIRUBIN DIPSTICK (test code=BILU) NEGATIVE NEGATIVE UA KETONE DIPSTICK (test code=KETU) NEGATIVE NEGATIVE UA SPECIFIC GRAVITY (test code=SGU) 1.025 1.005-1.030 UA BLOOD DIPSTICK (test code=JOAQUIN) NEGATIVE NEGATIVE UA PH DIPSTICK (test code=ROXIE) 5.0 5.0-7.0 UA PROTEIN DIPSTICK (test code=PROU) NEGATIVE NEGATIVE UA UROBILINIOGEN DIPSTICK (test code=URO) 0.2 mg/dL 0.2-1.0 UA NITRITE DIPSTICK (test code=TWIN) NEGATIVE NEGATIVE UA LEUKOCYTE ESTERASE DIPSTICK (test code=LEUU) TRACE NEGATIVE UA WBC (test code=WBCU) 0-3 WBC/HPF 0-3 UA RBC (test code=RBCU) 0-3 RBC/HPF 0-3 UA BACTERIA (test code=BACU) NONE SEEN /HPF NONE SEEN UA SQUAMOUS CELLS (test code=SQU) NONE SEEN /HPF NONE SEEN [id number] 23:51:00* Test Item Value Reference Range Comments DIGOXIN (test code=DIG) 0.1 NG/ML 0.8-2.0 LACTIC ACID [id number] 23:21:00* Test Item Value Reference Range Comments LACTIC ACID REPEAT (test code=LACTR) 2.1 mmol/l 0.4-1.9 - CTA ABD PEL W [id number] 22:16:00 Name: ARANZA WHITNEY [facility] : 1970 Age/S: 48 / M [address] [place] [address] Unit #: [id number] Loc: [place] [address] Phys: Coral Fonseca MD Acct: [id number] Dis Date: Status: REG ER PHONE #: [phone] Exam Date: 09/10/20182121 FAX #: [phone] Reason: dissection protocol EXAMS: CPT CODE: [id number] CTA ABD PEL W CONT 63991 Clinical Indication: dissection protocol Comparison: CTA chest 08/28/2018 TECHNIQUE: Helical imaging was performed after injection of IV contrast, from the chest through the symphysis with multiplanar reformations obtained. IV CONTRAST: 100 mL of Isovue-300 GI CONTRAST: Oral contrast was administered. DLP: 1978 mGy-cm FINDINGS: CT CHEST WITH CONTRAST: The study is suboptimal due to poor bolus timing. The contrast phase is portal venous instead of arterial phase. In the contrast phase, the aorta and its branches are not well visualized to evaluate for dissection. LUNG PARENCHYMA AND PLEURA: There are no lung nodules. Diffuse groundglass opacity is seen in the peribronchovascular distribution, likely representing pulmonary edema. Atelectasis is seen at the lung bases. There are no pleural effusions. There is no pneumothorax. AIRWAY: The central airway is normal.. LYMPH NODES: No axillary, hilar or mediastinal lymphadenopathy is seen. HEART: The heart is normal in size. There is no pericardial effusion. Mild coronary calcification is present. Sternotomy wires are present. VASCULAR STRUCTURES: The pulmonary arteries and great vessels are u nremarkable. The thoracic aorta is within normal limits. The superior vena cava is unremarkable. Mild atherosclerotic calcification affects the tho racic aorta. CT ABDOMEN AND PELVIS WITH CONTRAST: LI WILL: Liver is enlarged measuring 27.3 cm in cranial to caudal dimension. The liver parenchyma is normal in appearance without masses or intrahepati c biliary ductal dilatation. The portal vein is normal in caliber. PAGE 1 Signed Report (CONTINUED) Name: ARANZA WHITNEY [facility] [place] : 1970 Age/S: 48 / M [address] [place] [address] Blvd Unit #: [id number] Loc: [place] [address] Phys: Jean Carlos Fonseca MD Acct: [id number] Di s Date: Status: REG ER PHONE #: [phone] Exam Date: 09/10/20182121 FAX #: [phone] Reason: dissection protocol EXAMS: CPT CODE: [id number] CTA ABD PEL W CONT 55373 <Continued> BILIARY TREE: The common bile duct is normal in caliber without evidence of filling defects. GALLBLADDER: The gallbladder has been surgically resected. PANCREAS: The pancreas is unremarkable. The pancreatic duct is normal in caliber. SPLEEN: The spleen is enlarged measuring 15.8 cm in cranial to caudal dimension and there are no p arenchymal abnormalities. ADRENALS: The right adrenal gland is unr emarkable. The left adrenal gland is unremarkable. KIDNEYS : The kidneys demonstrates normal contrast enhancement. There are no hailey s. There is no evidence of renal or ureteral calculi. There is no evidence of hydronephrosis. BOWEL: The visualized portion of the esophagus is unremarkable. The stomach is unremarkable. The small bowel is normal in caliber and there is no evidence of masses or obstruction. The colon is normal in caliber without any masses. Moderate amount of stool is seen throughout the colon. APPENDIX: The appendix is nonvisualiz ed. PELVIS: There are no pelvic masses. The urinary bladder is unremarkable. The prostate and seminal vesicles are unremarkable. PERITONEUM: There is no evidence for free intraperitoneal fluid or air. SOFT TISSUES: The soft tissues are unremarkable. There is no alexander dence of masses or hernias. LYMPH NODES: There is no evidenc e of mesenteric, retroperitoneal, or inguinal lymphadenopathy. VASCULATURE: The abdominal aorta is normal in caliber. The branches of the abdominal aorta are widely patent. Splenorenal collateral vessels are present. An infrarenal IVC filter is present. MUSCULOSKELETAL: T he visualized bony skeleton is unremarkable. ACDF hardware fusing the cer vical spine are partially visualized. PAGE 2 Signed R eport (CONTINUED) Name: ARANZA WHITNEY [facility] : 1970 Age/S: 48 / M [address] Unit #: [id number] Loc: [place], [place] [address] Phys: Coral Fonseca MD Acct: [id number] Dis Date: Status: REG ER PHONE #: [phone] Exam Date: 09/10/20182121 FAX #: [phone] Reason: dissection protocol EXAMS: CPT CODE: [id number] CTA ABD PEL W CONT 04717 <Continued> IMPRESSION: This study is suboptimal due to poor bolus timing and body habitus. This study is nondiagnostic for evaluating dissection since the contrast phase is in the portal venous phase rather than in the arterial phase. 1. Hepatosplenomegaly. 2. Cholecystectomy. 3. Constipation. SL: LANVU-H at 2216 Reported and signed by: Joe Tomlin M.D. CC: Deepak Ruby MD; Coral Fonseca MD; Blake Cruz M.D. Technologist:RT Darell(R) CTDI: DLP: Trnscb Date/Time: 09/10/2018 (2216) t.SDR.LNV Orig Print D/T: S: 09/10/2018 (2219) PAGE 3 Signed Report - CT ANGIO [id number] 22:16:00 Name: ARANZA WHITNEY [facility] : 1970 Age/S: 48 / M [address] [place] [address] Blvd Unit #: [id number] Loc: [place] [address] Phys: Jean Carlos Fonseca MD Acct: [id number] Di s Date: Status: REG ER PHONE #: Exam Date: 09/10/20182121 FAX #: Reason: dissection protocol, cp EXAMS: CPT CODE: [id number] CT ANGIO CHEST 91994 Clinical Indication: diss ection protocol Comparison: CTA chest 08/28/2018 TECHNIQUE: H elical imaging was performed after injection of IV contrast, from the ches t through the symphysis with multiplanar reformations obtained. IV C ONTRAST: 100 mL of Isovue-300 GI CONTRAST: Oral contrast was administered. DLP: 1978 mGy-cm FINDINGS: CT CHEST WITH CON TRAST: The study is suboptimal due to poor bolus timing. The cont rast phase is portal venous instead of arterial phase. In the contrast ph ase, the aorta and its branches are not well visualized to evaluate for dissection. LUNG PARENCHYMA AND PLEURA: There are no lung nodu les. Diffuse groundglass opacity is seen in the peribronchovascular distribution, likely representing pulmonary edema. Atelectasis is seen at the lung bases. There are no pleural effusions. There is no pneumotho rax. AIRWAY: The central airway is normal.. LYMPH NO RASHMI: No axillary, hilar or mediastinal lymphadenopathy is seen. HEART: The heart is normal in size. There is no pericardial effusion. Mild coronary calcification is present. Sternotomy wires are present. VASCULAR STRUCTURES: The pulmonary arteries and great vessels are u nremarkable. The thoracic aorta is within normal limits. The superior vena cava is unremarkable. Mild atherosclerotic calcification affects the tho racic aorta. CT ABDOMEN AND PELVIS WITH CONTRAST: LI WILL: Liver is enlarged measuring 27.3 cm in cranial to caudal dimension. The liver parenchyma is normal in appearance without masses or intrahepati c biliary ductal dilatation. The portal vein is normal in caliber. PAGE 1 Signed Report (CONTINUED) Name: ARANZA WHITNEY [facility] : 1970 Age/S: 48 / M [address] [place] [address] Unit #: [id number] Loc: [place] [address] Phys: Jean Carlos Fonseca MD Acct: [id number] Di s Date: Status: REG ER PHONE #: Exam Date: 09/10/20182121 FAX #: Reason: dissection protocol, cp EXAMS: CPT CODE: [id number] CT ANGIO CHEST 44802 <Continued> BILIARY TREE: The common bile duct is normal in caliber without evidence of filling defects. GALLBLADDER: The gallbladder has been surgically resected. PANCREAS: The pancreas is unremarkable. The pancreatic duct is normal in caliber. SPLEEN: The spleen is enlarged measuring 15.8 cm in cranial to caudal dimension and there are no p arenchymal abnormalities. ADRENALS: The right adrenal gland is unr emarkable. The left adrenal gland is unremarkable. KIDNEYS : The kidneys demonstrates normal contrast enhancement. There are no hailey s. There is no evidence of renal or ureteral calculi. There is no evidence of hydronephrosis. BOWEL: The visualized portion of the esophagus is unremarkable. The stomach is unremarkable. The small bowel is normal in caliber and there is no evidence of masses or obstruction. The colon is normal in caliber without any masses. Moderate amount of stool is seen throughout the colon. APPENDIX: The appendix is nonvisualiz ed. PELVIS: There are no pelvic masses. The urinary bladder is unremarkable. The prostate and seminal vesicles are unremarkable. PERITONEUM: There is no evidence for free intraperitoneal fluid or air. SOFT TISSUES: The soft tissues are unremarkable. There is no alexander dence of masses or hernias. LYMPH NODES: There is no evidenc e of mesenteric, retroperitoneal, or inguinal lymphadenopathy. VASCULATURE: The abdominal aorta is normal in caliber. The branches of the abdominal aorta are widely patent. Splenorenal collateral vessels are present. An infrarenal IVC filter is present. MUSCULOSKELETAL: T he visualized bony skeleton is unremarkable. ACDF hardware fusing the cer vical spine are partially visualized. PAGE 2 Signed R eport (CONTINUED) Name: DEVONTEARANZA Elvia [facility] : 1970 Age/S: 48 / M [address] Unit #: [id number] Loc: [place], [place] [address] Phys: Coral Fonseca MD Acct: [id number] Dis Date: Status: REG ER PHONE #: [phone] Exam Date: 09/10/20182121 FAX #: [phone] Reason: dissection protocol, cp EXAMS: CPT CODE: [id number] CT ANGIO CHEST 89173 <Continued> IMPRESSION: This study is suboptimal due to poor bolus timing and body habitus. This study is nondiagnostic for evaluating dissection since the contrast phase is in the portal venous phase rather than in the arterial phase. 1. Hepatosplenomegaly. 2. Cholecystectomy. 3. Constipation. SL: LANVU-H at 2216 Reported and signed by: Joe Tomlin M.D. CC: Deepak Ruby MD; Coral Fonseca MD; Blake Cruz M.D. Technologist:Fanny Kennedy, RT(R) CTDI: DLP: Trnscb Date/Time: 09/10/2018 (2215) t.SDR.LNV Orig Print D/T: S: 09/10/2018 (2218) PAGE 3 Signed Report B-TYPE NATRIURETIC [id number] 21:21:00* Test Item Value Reference Range Comments B-TYPE NATRIURETIC PEPTIDE (test code=BNP) 17.8 PG/ML 0-100 - XR CHEST 1 [id number] 21:16:00 FAX: Ankita Billingsley MD [phone] [place]: St: REG FAX: Coral Fonseca MD [phone] FAX: Blake Cazares MD [phone] Name: ARANZA WHITNEY [facility] : 1970 Age/S: 48/M [address] [place] [address] Unit #: [id number] Loc: [address] [address] Phys: Coral Fonseca MD Acct: [id number] Dis Date: Status: REG ER PH ONE #: [phone] Exam Date: 09/10/20182051 FAX #: [phone] Reason: dissection protocol EXAMS: CPT CODE: [id number] XR CHEST 1 V Study: - XR C HEST 1 V 09/10/2018 8:23 PM Patient Name: ARANZA WHITNEY MR: [id number] : 1970; Age: 48 years y/o Male Ordering Physician: Coral Fonseca MD Clinical Indication: dissection protocol Comparison: August 27, 2018 x-ray FINDINGS LUNGS: The hypoinflated lungs are clear of consolidation, pleural effusion, and pn eumothorax. HEART AND MEDIASTINUM: Normal size heart. 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 LINES: None. OSSEOUS STRU CTURES: No fracture, dislocation, or suspicious focal osseous lesion. Medi an sternotomy wires and postoperative plates. Postoperative hardware in t he lower cervical spine. OTHER: None. IMPR ESSION: No acute abnormality as above discussed. SL: RADHA at 5891 Reported and signed by: Jean Carlos Ford M.D. PAGE 1 Signed Report (CONTINUED) FAX: Ankita Billingsley MD [phone] [place]: St: REG FAX: Coral Fonseca MD [phone] FAX: Blake Ford ra, MD [phone] Name: ARANZA WHITNEY [facility] : 1970 Age/S: 48/M [address] [place] [address] Unit #: [id number] Loc: [address] [address] Phys: Coral Fonseca MD Acct: [id number] Dis Date: Status: REG ER PHONE #: [phone] Exam Date: 09/10/20182051 FAX #: [phone] Reason: dissection protocol EXAMS: CPT CODE: [id number] XR CHEST 1 V 37917 < Continued> CC: Deepak Ruby MD; Coral Fonseca MD; Blake Cruz M.D. Technologist: VIDAL Ramirez RT(R); Amparo Daniel RT(R) Trnscrd Date/Time/By: 09/10/2018 (2115) : By: [email or web address] Orig Print D/T: S: 09/10/2018 (2118) PAGE 2 Signed Report - XR ELBOW 2 VIEWS RT 2018-09-10 21:15:00 FAX: Ankita Billingsley MD [phone] [place]: St: REG FAX: Coral Fonseca MD [phone] FAX: Blake Cazares MD [phone] Name: ARANZA WHITNEY [facility] : 1970 Age/S: 48/M [address] [place] [address] Unit #: [id number] Loc: [address] [address] Phys: Coral Fonseca MD Acct: [id number] Dis Date: Status: REG ER PH ONE #: [phone] Exam Date: 09/10/20182051 FAX #: [phone] Reason: fall EXAMS: CPT CODE: [id number] XR [place] [address] [place] [address] Clinical Indic ation: fall; Comparison: None FINDINGS: The 2 views of the right elbow show normal alignment without fractures or disl ocations. The joint spaces are normal. There is no joint effusion. There is mild elbow region soft tissue swelling in the posterior elbow. There ar e no radiopaque foreign bodies. If there is further concern, gabino mmend follow-up radiographs or MRI for complete assessment. IMPRESSION: No fracture or dislocation of the right elbow. SL: ROBEL at 2112 Reported and signed by: Joe Tomlin M.D. CC: Deepak Ruby MD; Coral Fonseca MD; Blake Cruz M.D. Technologist: VIDAL Ramirez RT(R); Amparo Daniel RT(R) Trnscrd Date/Time/By: 09/10/2018 ( 2114) : By: OpalLNV Orig Print D/T: S: 09/10/2018 (2117) PAGE 1 Signed Report BASIC METABOLIC [id number] 21:09:00* Test Item Value Reference Range Comments SODIUM (test code=NA) 139 mEq/L 134-147 POTASSIUM (test code=K) 2.7 mEq/L 3.4-5.0 CHLORIDE (test code=CL) 102 mEq/L 100-108 CARBON DIOXIDE (test code=CO2) 29 mEq/L 21-33 ANION GAP (test code=GAP) 11 0-20 GLUCOSE (test code=GLU) 212 mg/dL 70-110 BLOOD UREA NITROGEN (test code=BUN) 15 mg/dL 7-18 GLOMERULAR FILTRATION RATE (test code=GFR) 58.9 95-105 Units of measure=ml/min/1.73 m2 CREATININE (test code=CREAT) 1.3 mg/dL 0.6-1.3 CALCIUM (test code=CA) 8.6 mg/dL 8.0-10.5 HEPATIC FUNCTION [id number] 21:09:00* Test Item Value Reference Range Comments TOTAL PROTEIN (test code=PROT) 6.5 g/dL 6.4-8.2 ALBUMIN (test code=ALB) 3.40 g/dL 3.4-5.0 BILIRUBIN TOTAL (test code=BILT) 0.40 mg/dL 0.0-1.0 BILIRUBIN DIRECT (test code=BILD) 0.10 MG/DL 0.0-0.30 BILIRUBIN INDIRECT (test code=BILIND) 0.30 MG/DL SGOT/AST (test code=AST) 19 IUnit/L 15-37 SGPT/ALT (test code=ALT) 25 IUnit/L 15-65 ALKALINE PHOSPHATASE TOTAL (test code=ALKP) 112 IUnit/L 20-125 CBC W/AUTO [id number] 20:50:00* Test Item Value Reference Range Comments WHITE BLOOD CELL (test code=WBC) 7.22 x10 3/uL 4.5-11.0 RED BLOOD CELL (test code=RBC) 4.05 x10 6/uL 4.00-5.60 HEMOGLOBIN (test code=HGB) 12.4 g/dL 12.5-16.9 HEMATOCRIT (test code=HCT) 36.8 % 37.5-50.7 MEAN CELL VOLUME (test code=MCV) 90.9 fL 81.0-99.0 MEAN CELL HGB (test code=MCH) 30.6 pg 27.0-33.0 MEAN CELL HGB CONCETRATION (test code=MCHC) 33.7 g/dL 33.0-37.0 RED CELL DISTRIBUTION WIDTH CV (test code=RDW) 14.0 % 11.5-14.5 RED CELL DISTRIBUTION WIDTH SD (test code=RDW-SD) 46.2 fL 37.0-54.0 PLATELET COUNT (test code=PLT) 209 x10 3/uL 150-400 MEAN PLATELET VOLUME (test code=MPV) 9.8 fL 7.0-9.0 NEUTROPHIL % (test code=NT%) 53.9 % 56.0-77.0 IMMATURE GRANULOCYTE % (test code=IG%) 1.0 % 0.0-2.0 LYMPHOCYTE % (test code=LY%) 36.6 % 14.0-32.0 MONOCYTE % (test code=MO%) 6.2 % 4.8-9.0 EOSINOPHIL % (test code=EO%) 1.9 % 0.3-3.7 BASOPHIL % (test code=BA%) 0.4 % 0.0-2.0 NUCLEATED RBC % (test code=NRBC%) 0.0 % 0-0 NEUTROPHIL # (test code=NT#) 3.89 x10 3/uL 2.0-7.6 IMMATURE GRANULOCYTE # (test code=IG#) 0.07 x10 3/uL 0.00-0.03 LYMPHOCYTE # (test code=LY#) 2.64 x10 3/uL 1.0-3.8 MONOCYTE # (test code=MO#) 0.45 x10 3/uL 0.1-0.8 EOSINOPHIL # (test code=EO#) 0.14 x10 3/uL 0.0-0.2 BASOPHIL # (test code=BA#) 0.03 x10 3/uL 0.0-0.2 NUCLEATED RBC # (test code=NRBC#) 0.00 x10 3/uL 0.0-0.1 MANUAL DIFF REQUIRED (test code=MDIFF) NO TROPONIN-I [id number] 20:43:00* Test Item Value Reference Range Comments TROPONIN-I RAPID (test code=TROPIRAP) 0.00 ng/mL 0.00-0.08 Performed by certified roper operator at [facility] Negative: <=0.08 Positive: >=0.09An elevated troponin value alone is not sufficient todiagnose a myocardial infarction. Rather, the patient sclinical presentation (history, physical exam) and ECGshould be used in conjunction with troponin in thediagnostic evaluation of suspected myocardial infarction. Aserial sampling protocol is recommended to facilitate the identification of temporal changes in troponin levels characteristic of AR. LACTIC ACID [id number] 20:35:00* Test Item Value Reference Range Comments LACTIC ACID POC (test code=LACTP) 3.1 MMOL/L 0.90-1.70 Performed by certified roper operator at [facility] [id number] 04:55:00* Test Item Value Reference Range Comments GLUBED (test code=GLUBED) 223 MG/DL 70-110 Performed by certified roper operator at [facility] [id number] 21:25:00* Test Item Value Reference Range Comments GLUBED (test code=GLUBED) 195 MG/DL 70-110 Performed by certified roper operator at [facility] [id number] 12:25:00* Test Item Value Reference Range Comments GLUBED (test code=GLUBED) 166 MG/DL 70-110 Performed by certified roper operator at [facility] [id number] 08:14:00* Test Item Value Reference Range Comments GLUBED (test code=GLUBED) 218 MG/DL 70-110 Performed by certified roper operator at [facility] [id number] 21:21:00* Test Item Value Reference Range Comments GLUBED (test code=GLUBED) 193 MG/DL 70-110 Performed by certified roper operator at [facility] [id number] 17:27:00* Test Item Value Reference Range Comments GLUBED (test code=GLUBED) 184 MG/DL 70-110 Performed by certified roper operator at [facility] [id number] 12:21:00* Test Item Value Reference Range Comments GLUBED (test code=GLUBED) 187 MG/DL 70-110 Performed by certified roper operator at [facility] [id number] 10:20:00* Test Item Value Reference Range Comments GLUBED (test code=GLUBED) 185 MG/DL 70-110 Performed by certified roper operator at [facility] [id number] 20:07:00* Test Item Value Reference Range Comments GLUBED (test code=GLUBED) 238 MG/DL 70-110 Performed by certified roper operator at [facility] [id number] 17:10:00* Test Item Value Reference Range Comments GLUBED (test code=GLUBED) 220 MG/DL 70-110 Performed by certified roper operator at [facility] [id number] 12:07:00* Test Item Value Reference Range Comments GLUBED (test code=GLUBED) 197 MG/DL 70-110 Performed by certified roper operator at [facility] [id number] 08:58:00* Test Item Value Reference Range Comments GLUBED (test code=GLUBED) 185 MG/DL 70-110 Performed by certified roper operator at [facility] [id number] 21:18:00* Test Item Value Reference Range Comments GLUBED (test code=GLUBED) 251 MG/DL 70-110 Performed by certified roper operator at [facility] [id number] 18:01:00* Test Item Value Reference Range Comments GLUBED (test code=GLUBED) 202 MG/DL 70-110 Performed by certified roper operator at [facility] [id number] 16:46:00* Test Item Value Reference Range Comments GLUBED (test code=GLUBED) 197 MG/DL 70-110 Performed by certified roper operator at [facility] [id number] 07:11:00* Test Item Value Reference Range Comments GLUBED (test code=GLUBED) 200 MG/DL 70-110 Performed by certified roper operator at [facility] [id number] 03:39:00* Test Item Value Reference Range Comments TROPONIN-I (test code=TROPI) < 0.015 ng/mL 0.000-0.045 Negative: <=0.045 Positive: >=0.046 Correlation with serial results, other cardiac markers andclinical findings is necessary to determine the clinicalsignificance of this result. Results using different methodologies should not be comparedto one another as quantitative results may vary by method. COMMENTS: 3 troponins total (including troponin done in ED)- CT ANGIO CHEST 2018-08-28 01:22:00 Name: ARANZA WHITNEY [facility] : 1970 Age/S: 48 / M [address] [place] [address] Unit #: [id number] Loc: [place] [address] Phys: Song Echavarria MD Acct: [id number] Dis Date: Status: ADM IN PHONE #: [phone] Exam Date: 08/28/2018 0022 FAX #: [phone] Reason: chest pain EXAMS: CPT CODE: [id number] CT ANGIO CHEST 13693 PROCEDURE: CT ANGIOGRAM OF THE CHEST WITH RECONSTRUCTION DATED 08/28/2018. INDICATION: Chest pain. Prior history of aortic repair. COMPARISON: CT angiogram the chest dated 07/22/2018. TECHNIQUE: A dynamic contrast enhanced helical CT angiogram of the chest was performed with subsequent sagittal and coronal MIP reconstruction as well as 3-D reconstruction. IV Contrast: [address] imaging performed at this location utilizes radiation dose optimization techniques which include one or more of the followin) Automated exposure control; 2) Adjustment of mA and/or kV; 3) Use of iterative reconstructive technique. CT radiation dose DLP (mGy-cm): 471. FINDINGS: THORACIC AORTA: The patient is status post surgical repair of the ascending aorta. The aorta enhances normally without evidence of aneurysm or dissection. The proximal great vessels appear widely patent. Atherosclerotic calcification is noted in the coronary arteries. MEDIASTINUM: Examination of the mediastinum reveals no evidence of a mediastinal mass or mediastinal adenopathy. The 1.7 cm right hilar lymph node described on the preceding CT is stable in size. PLEURAL SPACE: No acute pleural space abnormalities are detected. LUNGS: The groundglass opacities seen in the perihilar regions and in the medial aspect of the right upper lobe and right middle lobe appear chronic and unchanged no new pulmonary infiltrates are identified. The 5 mm noncalcified nodule in the peripheral subpleural right middle lobe (series 2, image 62) is stable going back to a prior CT from 02/05/2016. No new or enlarging pulmonary nodules are identified. While the contrast injection was not optimized for pulmonary artery opacification, there is no evidence of embolic disease in the large central pulmonary arteries UPPER ABDOMEN: The visualized upper abdominal organs are unremarkable. PAGE 1 Signed Report (CONTINUED) Name: ARANZA WHITNEY [facility] : 1970 Age/S: 48 / M [address] [place] [address] Blvd Unit #: [id number] Loc: [place] [address] Phys: Song Echavarria MD Acct: [id number] Dis Date: Status: ADM IN PHONE #: [phone] Exam Date: 08/28/201821 FAX #: [phone] Reason: chest pain EXAMS: CPT CODE: [id number] CT ANGIO CHEST 48329 < Continued> ADDITIONAL FINDINGS: Note is made of bilateral gynecomastia. IMPRESSION: 1. No acute CT abnormalities of the lungs, mediastinum or pleural spaces are detected. The CT appearance of the chest has not significantly changed when compared the prior study dated 07/22/2018. SL: 131 at 0122 Reported and signed by: Richard Pickard M.D. CC: Deepak Ruby MD; Blake Cruz M.D.; Song Echavarria MD Technologist:Stan Briseno, RT(R) CTDI: DLP: Trnscb Date/Time: 08/28/2018 (012) t.LEAH Orig Print D/T: S: 08/28/2018 (012) PAGE 2 Signed Report [id number] 00:52:00* Test Item Value Reference Range Comments GLUBED (test code=GLUBED) 173 MG/DL 70-110 Performed by certified roper operator at [facility] [id number] 00:46:00* Test Item Value Reference Range Comments TROPONIN-I (test code=TROPI) < 0.015 ng/mL 0.000-0.045 Negative: <=0.045 Positive: >=0.046 Correlation with serial results, other cardiac markers andclinical findings is necessary to determine the clinicalsignificance of this result. Results using different methodologies should not be comparedto one another as quantitative results may vary by method. COMMENTS: 3 troponins total (including troponin done in ED)TROPONIN-I RAPID 2018-08-27 23:44:00* Test Item Value Reference Range Comments TROPONIN-I RAPID (test code=TROPIRAP) 0.00 ng/mL 0.00-0.08 Performed by certified roper operator at [facility] Negative: <=0.08 Positive: >=0.09An elevated troponin value alone is not sufficient todiagnose a myocardial infarction. Rather, the patient sclinical presentation (history, physical exam) and ECGshould be used in conjunction with troponin in thediagnostic evaluation of suspected myocardial infarction. Aserial sampling protocol is recommended to facilitate the identification of temporal changes in troponin levels characteristic of AR. CHEMISTRY 8 [id number] 23:23:00* Test Item Value Reference Range Comments ISTAT-SODIUM (test code=NAP) MMOL/L 134-147 ISTAT-POTASSIUM (test code=KP) MMOL/L 3.4-5.0 ISTAT-CHLORIDE (test code=CLP) MMOL/L 100-108 ISTAT CARBON DIOXIDE (test code=ISTAT-CO2) mmol/L 21-33 ISTAT CALCIUM IONIZED (test code=ISTAT-KAREEM) MG/DL 1.12-1.32 ISTAT-GLUCOSE (test code=GLUP) MG/DL 70-110 ISTAT-BUN (test code=BUNP) MG/DL 7-18 BEDSIDE CREATININE (test code=CREATBED) MG/DL 0.6-1.3 GLOMERULAR FILTRATION RATE POC (test code=GFRBED) 69 ML/MIN CHEMISTRY 8 [id number] 23:23:00* Test Item Value Reference Range Comments ISTAT-SODIUM (test code=NAP) 139 MMOL/L 134-147 ISTAT-POTASSIUM (test code=KP) 3.5 MMOL/L 3.4-5.0 ISTAT-CHLORIDE (test code=CLP) 99 MMOL/L 100-108 Performed by certified roper operator at [facility] ISTAT CARBON DIOXIDE (test code=ISTAT-CO2) 27.0 mmol/L 21-33 ISTAT CALCIUM IONIZED (test code=ISTAT-KAREEM) 1.20 MG/DL 1.12-1.32 ISTAT-GLUCOSE (test code=GLUP) 179 MG/DL 70-110 ISTAT-BUN (test code=BUNP) 17 MG/DL 7-18 BEDSIDE CREATININE (test code=CREATBED) 1.2 MG/DL 0.6-1.3 GLOMERULAR FILTRATION RATE POC (test code=GFRBED) 69 ML/MIN - XR CHEST 1 [id number] 23:19:00 FAX: Ankita Billingsley MD [phone] [place]: St: PRE FAX: Blake Cazares MD [phone] FAX: Song Montes MD [phone] Name: ARANZA WHITNEY [facility] : 1970 Age/S: 48/M [address] [place] [address] Unit #: [id number] Loc: [address] [address] Phys: Song Echavarria MD Acct: [id number] Dis Date: Status: PRE ER PH ONE #: [phone] Exam Date: 08/27/2018 2316 FAX #: [phone] Reason: Chest Pain EXAMS: CPT CODE: [id number] XR CHEST 1 V 93807 Chest, single view dated 08/27/2018. HISTORY: Chest pain. Compariso n is made to a prior study dated 08/04/2018. The patient is status post median sternotomy. The heart is normal in size. The cardiomediastin al shadow appears within normal limits. The lungs appear clear. The pulm onary vasculature is normal in caliber. No acute pleural space abnormalit ies are detected. IMPRESSION: 1. No radiographic eviden ce of acute cardiopulmonary disease. SL: 131 at 1019 Reported and signed by: Richard Pickard M.D. CC: Deepak Ruby MD; Blake Cruz M.D.; Song Echavarria MD Technologist: RT Catalino(Saritha) Trnscrd Date/Time/By: 08/27/2018 (5587) : By: OpalDMM Orig Print D/T: S: 08/27/2018 (5964) PAGE 1 Signed Report CBC W/AUTO DIFF 2018-08-27 23:18:00* Test Item Value Reference Range Comments WHITE BLOOD CELL (test code=WBC) 6.45 x10 3/uL 4.5-11.0 RED BLOOD CELL (test code=RBC) 4.22 x10 6/uL 4.00-5.60 HEMOGLOBIN (test code=HGB) 13.0 g/dL 12.5-16.9 HEMATOCRIT (test code=HCT) 38.0 % 37.5-50.7 MEAN CELL VOLUME (test code=MCV) 90.0 fL 81.0-99.0 MEAN CELL HGB (test code=MCH) 30.8 pg 27.0-33.0 MEAN CELL HGB CONCETRATION (test code=MCHC) 34.2 g/dL 33.0-37.0 RED CELL DISTRIBUTION WIDTH CV (test code=RDW) 13.4 % 11.5-14.5 RED CELL DISTRIBUTION WIDTH SD (test code=RDW-SD) 43.8 fL 37.0-54.0 PLATELET COUNT (test code=PLT) 223 x10 3/uL 150-400 MEAN PLATELET VOLUME (test code=MPV) 9.8 fL 7.0-9.0 NEUTROPHIL % (test code=NT%) 51.8 % 56.0-77.0 IMMATURE GRANULOCYTE % (test code=IG%) 1.9 % 0.0-2.0 LYMPHOCYTE % (test code=LY%) 37.1 % 14.0-32.0 MONOCYTE % (test code=MO%) 6.5 % 4.8-9.0 EOSINOPHIL % (test code=EO%) 2.2 % 0.3-3.7 BASOPHIL % (test code=BA%) 0.5 % 0.0-2.0 NUCLEATED RBC % (test code=NRBC%) 0.0 % 0-0 NEUTROPHIL # (test code=NT#) 3.35 x10 3/uL 2.0-7.6 IMMATURE GRANULOCYTE # (test code=IG#) 0.12 x10 3/uL 0.00-0.03 LYMPHOCYTE # (test code=LY#) 2.39 x10 3/uL 1.0-3.8 MONOCYTE # (test code=MO#) 0.42 x10 3/uL 0.1-0.8 EOSINOPHIL # (test code=EO#) 0.14 x10 3/uL 0.0-0.2 BASOPHIL # (test code=BA#) 0.03 x10 3/uL 0.0-0.2 NUCLEATED RBC # (test code=NRBC#) 0.00 x10 3/uL 0.0-0.1 MANUAL DIFF REQUIRED (test code=MDIFF) NO [id number] 22:06:00* Test Item Value Reference Range Comments GLUBED (test code=GLUBED) 180 MG/DL 70-110 Performed by certified roper operator at [facility] [id number] 22:06:00* Test Item Value Reference Range Comments GLUBED (test code=GLUBED) 144 MG/DL 70-110 Performed by certified roper operator at [facility] [id number] 22:06:00* Test Item Value Reference Range Comments GLUBED (test code=GLUBED) 198 MG/DL 70-110 Performed by certified roper operator at [facility] [id number] 22:06:00* Test Item Value Reference Range Comments GLUBED (test code=GLUBED) 180 MG/DL 70-110 Performed by certified roper operator at [facility] [id number] 22:05:00* Test Item Value Reference Range Comments GLUBED (test code=GLUBED) 147 MG/DL 70-110 Performed by certified roper operator at [facility] [id number] 22:05:00* Test Item Value Reference Range Comments GLUBED (test code=GLUBED) 159 MG/DL 70-110 Performed by certified roper operator at [facility] [id number] 22:05:00* Test Item Value Reference Range Comments GLUBED (test code=GLUBED) 114 MG/DL 70-110 Performed by certified roper operator at [facility] [id number] 22:05:00* Test Item Value Reference Range Comments GLUBED (test code=GLUBED) 166 MG/DL 70-110 Performed by certified roper operator at [facility] [id number] 22:05:00* Test Item Value Reference Range Comments GLUBED (test code=GLUBED) 154 MG/DL 70-110 Performed by certified roper operator at [facility] [id number] 22:05:00* Test Item Value Reference Range Comments GLUBED (test code=GLUBED) 133 MG/DL 70-110 Performed by certified roper operator at [facility] [id number] 12:28:00* Test Item Value Reference Range Comments GLUBED (test code=GLUBED) 147 MG/DL 70-110 Performed by certified roper operator at [facility] [id number] 08:31:00* Test Item Value Reference Range Comments GLUBED (test code=GLUBED) 144 MG/DL 70-110 Performed by certified roper operator at [facility] [id number] 21:01:00* Test Item Value Reference Range Comments GLUBED (test code=GLUBED) 168 MG/DL 70-110 Performed by certified roper operator at [facility] [id number] 21:01:00* Test Item Value Reference Range Comments GLUBED (test code=GLUBED) 154 MG/DL 70-110 Performed by certified roper operator at [facility] [id number] 14:38:00* Test Item Value Reference Range Comments GLUBED (test code=GLUBED) 228 MG/DL 70-110 Performed by certified roper operator at [facility] [id number] 14:38:00* Test Item Value Reference Range Comments GLUBED (test code=GLUBED) 141 MG/DL 70-110 Performed by certified roper operator at [facility] [id number] 14:37:00* Test Item Value Reference Range Comments GLUBED (test code=GLUBED) 132 MG/DL 70-110 Performed by certified roper operator at [facility] [id number] 14:37:00* Test Item Value Reference Range Comments GLUBED (test code=GLUBED) 160 MG/DL 70-110 Performed by certified roper operator at [facility] [id number] 08:50:00* Test Item Value Reference Range Comments GLUBED (test code=GLUBED) 188 MG/DL 70-110 Performed by certified roper operator at [facility] BASIC METABOLIC [id number] 08:44:00* Test Item Value Reference Range Comments SODIUM (test code=NA) 137 mEq/L 134-147 POTASSIUM (test code=K) 3.6 mEq/L 3.4-5.0 CHLORIDE (test code=CL) 102 mEq/L 100-108 CARBON DIOXIDE (test code=CO2) 27 mEq/L 21-33 ANION GAP (test code=GAP) 12 0-20 GLUCOSE (test code=GLU) 157 mg/dL 70-110 BLOOD UREA NITROGEN (test code=BUN) 17 mg/dL 7-18 GLOMERULAR FILTRATION RATE (test code=GFR) 58.9 95-105 Units of measure=ml/min/1.73 m2 CREATININE (test code=CREAT) 1.3 mg/dL 0.6-1.3 CALCIUM (test code=CA) 8.7 mg/dL 8.0-10.5 CBC W/AUTO [id number] 07:50:00* Test Item Value Reference Range Comments WHITE BLOOD CELL (test code=WBC) 5.29 x10 3/uL 4.5-11.0 RED BLOOD CELL (test code=RBC) 4.38 x10 6/uL 4.00-5.60 HEMOGLOBIN (test code=HGB) 13.3 g/dL 12.5-16.9 HEMATOCRIT (test code=HCT) 40.2 % 37.5-50.7 MEAN CELL VOLUME (test code=MCV) 91.8 fL 81.0-99.0 MEAN CELL HGB (test code=MCH) 30.4 pg 27.0-33.0 MEAN CELL HGB CONCETRATION (test code=MCHC) 33.1 g/dL 33.0-37.0 RED CELL DISTRIBUTION WIDTH CV (test code=RDW) 13.8 % 11.5-14.5 RED CELL DISTRIBUTION WIDTH SD (test code=RDW-SD) 46.5 fL 37.0-54.0 PLATELET COUNT (test code=PLT) 207 x10 3/uL 150-400 MEAN PLATELET VOLUME (test code=MPV) 10.5 fL 7.0-9.0 NEUTROPHIL % (test code=NT%) 49.5 % 56.0-77.0 IMMATURE GRANULOCYTE % (test code=IG%) 0.9 % 0.0-2.0 LYMPHOCYTE % (test code=LY%) 35.9 % 14.0-32.0 MONOCYTE % (test code=MO%) 10.6 % 4.8-9.0 EOSINOPHIL % (test code=EO%) 2.3 % 0.3-3.7 BASOPHIL % (test code=BA%) 0.8 % 0.0-2.0 NUCLEATED RBC % (test code=NRBC%) 0.0 % 0-0 NEUTROPHIL # (test code=NT#) 2.62 x10 3/uL 2.0-7.6 IMMATURE GRANULOCYTE # (test code=IG#) 0.05 x10 3/uL 0.00-0.03 LYMPHOCYTE # (test code=LY#) 1.90 x10 3/uL 1.0-3.8 MONOCYTE # (test code=MO#) 0.56 x10 3/uL 0.1-0.8 EOSINOPHIL # (test code=EO#) 0.12 x10 3/uL 0.0-0.2 BASOPHIL # (test code=BA#) 0.04 x10 3/uL 0.0-0.2 NUCLEATED RBC # (test code=NRBC#) 0.00 x10 3/uL 0.0-0.1 MANUAL DIFF REQUIRED (test code=MDIFF) NO [id number] 18:32:00* Test Item Value Reference Range Comments GLUBED (test code=GLUBED) 131 MG/DL 70-110 Performed by certified roper operator at [facility] [id number] 09:03:00* Test Item Value Reference Range Comments GLUBED (test code=GLUBED) 142 MG/DL 70-110 Performed by certified roper operator at [facility] [id number] 20:37:00* Test Item Value Reference Range Comments GLUBED (test code=GLUBED) 152 MG/DL 70-110 Performed by certified roper operator at [facility] [id number] 23:07:00* Test Item Value Reference Range Comments GLUBED (test code=GLUBED) 137 MG/DL 70-110 Performed by certified roper operator at [facility] [id number] 21:05:00* Test Item Value Reference Range Comments GLUBED (test code=GLUBED) 170 MG/DL 70-110 Performed by certified roper operator at [facility] [id number] 18:46:00* Test Item Value Reference Range Comments GLUBED (test code=GLUBED) 160 MG/DL 70-110 Performed by certified roper operator at [facility] [id number] 12:53:00* Test Item Value Reference Range Comments GLUBED (test code=GLUBED) 146 MG/DL 70-110 Performed by certified roper operator at [facility] [id number] 09:13:00* Test Item Value Reference Range Comments GLUBED (test code=GLUBED) 151 MG/DL 70-110 Performed by certified roper operator at [facility] [id number] 21:05:00* Test Item Value Reference Range Comments GLUBED (test code=GLUBED) 162 MG/DL 70-110 Performed by certified roper operator at [facility] [id number] 12:41:00* Test Item Value Reference Range Comments GLUBED (test code=GLUBED) 153 MG/DL 70-110 Performed by certified roper operator at [facility] [id number] 08:23:00* Test Item Value Reference Range Comments GLUBED (test code=GLUBED) 182 MG/DL 70-110 Performed by certified roper operator at [facility] [id number] 21:41:00* Test Item Value Reference Range Comments GLUBED (test code=GLUBED) 165 MG/DL 70-110 Performed by certified roper operator at [facility] [id number] 21:10:00* Test Item Value Reference Range Comments GLUBED (test code=GLUBED) 138 MG/DL 70-110 Performed by certified roper operator at [facility] [id number] 13:03:00* Test Item Value Reference Range Comments GLUBED (test code=GLUBED) 144 MG/DL 70-110 Performed by certified roper operator at [facility] [id number] 08:18:00* Test Item Value Reference Range Comments GLUBED (test code=GLUBED) 216 MG/DL 70-110 Performed by certified roper operator at [facility] [id number] 21:29:00* Test Item Value Reference Range Comments GLUBED (test code=GLUBED) 186 MG/DL 70-110 Performed by certified roper operator at [facility] [id number] 17:49:00* Test Item Value Reference Range Comments GLUBED (test code=GLUBED) 149 MG/DL 70-110 Performed by certified roper operator at [facility] [id number] 17:49:00* Test Item Value Reference Range Comments GLUBED (test code=GLUBED) 139 MG/DL 70-110 Performed by certified roper operator at [facility] [id number] 08:43:00* Test Item Value Reference Range Comments GLUBED (test code=GLUBED) 164 MG/DL 70-110 Performed by certified roper operator at [facility] [id number] 21:11:00* Test Item Value Reference Range Comments GLUBED (test code=GLUBED) 155 MG/DL 70-110 Performed by certified roper operator at [facility] [id number] 16:56:00* Test Item Value Reference Range Comments GLUBED (test code=GLUBED) 164 MG/DL 70-110 Performed by certified roper operator at [facility] [id number] 11:54:00* Test Item Value Reference Range Comments GLUBED (test code=GLUBED) 190 MG/DL 70-110 Performed by certified roper operator at [facility] [id number] 08:27:00* Test Item Value Reference Range Comments GLUBED (test code=GLUBED) 220 MG/DL 70-110 Performed by certified roper operator at [facility] [id number] 20:58:00* Test Item Value Reference Range Comments GLUBED (test code=GLUBED) 155 MG/DL 70-110 Performed by certified roper operator at [facility] [id number] 16:47:00* Test Item Value Reference Range Comments GLUBED (test code=GLUBED) 171 MG/DL 70-110 Performed by certified roper operator at [facility] [id number] 12:06:00* Test Item Value Reference Range Comments GLUBED (test code=GLUBED) 186 MG/DL 70-110 Performed by certified roper operator at [facility] [id number] 08:39:00* Test Item Value Reference Range Comments GLUBED (test code=GLUBED) 238 MG/DL 70-110 Performed by certified roper operator at [facility] BASIC METABOLIC [id number] 08:27:00* Test Item Value Reference Range Comments SODIUM (test code=NA) 134 mEq/L 134-147 POTASSIUM (test code=K) 4.1 mEq/L 3.4-5.0 CHLORIDE (test code=CL) 104 mEq/L 100-108 CARBON DIOXIDE (test code=CO2) 26 mEq/L 21-33 ANION GAP (test code=GAP) 8 0-20 GLUCOSE (test code=GLU) 240 mg/dL 70-110 BLOOD UREA NITROGEN (test code=BUN) 12 mg/dL 7-18 GLOMERULAR FILTRATION RATE (test code=GFR) 71.4 95-105 Units of measure=ml/min/1.73 m2 CREATININE (test code=CREAT) 1.1 mg/dL 0.6-1.3 CALCIUM (test code=CA) 8.3 mg/dL 8.0-10.5 [id number] 02:26:00* Test Item Value Reference Range Comments GLUBED (test code=GLUBED) 182 MG/DL 70-110 Performed by certified roper operator at [facility] [id number] 21:22:00* Test Item Value Reference Range Comments GLUBED (test code=GLUBED) 189 MG/DL 70-110 Performed by certified roper operator at [facility] [id number] 16:44:00* Test Item Value Reference Range Comments GLUBED (test code=GLUBED) 168 MG/DL 70-110 Performed by certified roper operator at [facility] [id number] 12:37:00* Test Item Value Reference Range Comments GLUBED (test code=GLUBED) 205 MG/DL 70-110 Performed by certified roper operator at [facility] [id number] 08:23:00* Test Item Value Reference Range Comments GLUBED (test code=GLUBED) 250 MG/DL 70-110 Performed by certified roper operator at [facility] [id number] 06:02:00* Test Item Value Reference Range Comments GLUBED (test code=GLUBED) 205 MG/DL 70-110 Performed by certified roper operator at [facility] [id number] 01:06:00* Test Item Value Reference Range Comments GLUBED (test code=GLUBED) 218 MG/DL 70-110 Performed by certified roper operator at [facility] [id number] 21:01:00* Test Item Value Reference Range Comments GLUBED (test code=GLUBED) 212 MG/DL 70-110 Performed by certified roper operator at [facility] [id number] 17:23:00* Test Item Value Reference Range Comments GLUBED (test code=GLUBED) 228 MG/DL 70-110 Performed by certified roper operator at [facility] CBC W/MANUAL [id number] 17:21:00* Test Item Value Reference Range Comments WHITE BLOOD CELL (test code=WBC) 5.88 x10 3/uL 4.5-11.0 RED BLOOD CELL (test code=RBC) 4.17 x10 6/uL 4.00-5.60 HEMOGLOBIN (test code=HGB) 12.8 g/dL 12.5-16.9 HEMATOCRIT (test code=HCT) 37.8 % 37.5-50.7 MEAN CELL VOLUME (test code=MCV) 90.6 fL 81.0-99.0 MEAN CELL HGB (test code=MCH) 30.7 pg 27.0-33.0 MEAN CELL HGB CONCETRATION (test code=MCHC) 33.9 g/dL 33.0-37.0 RED CELL DISTRIBUTION WIDTH CV (test code=RDW) 14.3 % 11.5-14.5 RED CELL DISTRIBUTION WIDTH SD (test code=RDW-SD) 47.4 fL 37.0-54.0 PLATELET COUNT (test code=PLT) 213 x10 3/uL 150-400 MEAN PLATELET VOLUME (test code=MPV) 10.0 fL 7.0-9.0 SEGMENTED NEUTROPHILS (test code=SEG) 66.7 % 37-69 LYMPHOCYTE (test code=LYMPH) 23.2 % 23-55 MONOCYTE (test code=MON) 7.4 % 0-10 EOSINOPHIL (test code=EOS) 0.9 % 0.0-4.0 BASOPHIL (test code=BASO) 0.9 % 0.0-2.0 METAMYELOCYTE (test code=META) 0.9 % 0.0-0.0 ANISOCYTOSIS (test code=ANISO) 1+ MICROCYTOSIS (test code=MICR) 1+ PLATELET ESTIMATE (test code=PLTEST) Adequate THOUSAND ADEQUATE PLATELET MORPHOLOGY (test code=PLTMORPH) FEW LARGE PLTS SEEN [id number] 11:39:00* Test Item Value Reference Range Comments GLUBED (test code=GLUBED) 293 MG/DL 70-110 Performed by certified roper operator at [facility] [id number] 08:39:00* Test Item Value Reference Range Comments GLUBED (test code=GLUBED) 280 MG/DL 70-110 Performed by certified roper operator at [facility] PROTHROMBIN [id number] 07:21:00* Test Item Value Reference Range Comments PROTHROMBIN TIME PATIENT (test code=PTP) 12.2 SECONDS 9.3-12.9 INTERNATIONAL NORMAL RATIO (test code=INR) 1.1 0.8-1.2 TARGET INR BY INDICATION Indication INR1. Prophylaxis of venous thrombosis 2.0 - 3.0 (orthopedic surgery), Prophylaxis of venous thrombosis (other than high-risk surgery), Treatment of Deep Vein Thrombosis/Pulmonary Embolism, Prevention of systemic embolism - Tissue heart valves, Acute Myocardial Infarction (to prevent systemic embolism), Valvular heart disease, Atrial Fibrillation, Bileaflet mechanical valve in aortic position.2. Mechanical prosthetic valves (high risk), 2.5 - 3.5 Presence of Lupus Anticoagulant or Antiphospholipid Antibodies, Prevention of systemic embolism - Acute Myocardial Infarction (to prevent recurrent infarct). THROMBOPLASTIN TIME [id number] 07:21:00* Test Item Value Reference Range Comments THROMBOPLASTIN TIME PARTIAL (test code=PTT) 33.4 Seconds 25.0-39.5 Therapeutic Range: 50.4 - 88.3 Seconds Effective 06/03/2018 COMPREHENSIVE METABOLIC [id number] 07:16:00* Test Item Value Reference Range Comments SODIUM (test code=NA) 136 mEq/L 134-147 POTASSIUM (test code=K) 3.3 mEq/L 3.4-5.0 CHLORIDE (test code=CL) 102 mEq/L 100-108 CARBON DIOXIDE (test code=CO2) 26 mEq/L 21-33 ANION GAP (test code=GAP) 11 0-20 GLUCOSE (test code=GLU) 209 mg/dL 70-110 BLOOD UREA NITROGEN (test code=BUN) 14 mg/dL 7-18 GLOMERULAR FILTRATION RATE (test code=GFR) 79.8 95-105 Units of measure=ml/min/1.73 m2 CREATININE (test code=CREAT) 1.0 mg/dL 0.6-1.3 TOTAL PROTEIN (test code=PROT) 6.2 g/dL 6.4-8.2 ALBUMIN (test code=ALB) 3.10 g/dL 3.4-5.0 CALCIUM (test code=CA) 8.4 mg/dL 8.0-10.5 BILIRUBIN TOTAL (test code=BILT) 0.30 mg/dL 0.0-1.0 SGOT/AST (test code=AST) 19 IUnit/L 15-37 SGPT/ALT (test code=ALT) 26 IUnit/L 15-65 ALKALINE PHOSPHATASE TOTAL (test code=ALKP) 92 IUnit/L 20-125 LIPID PROFILE (CORONARY RISK)2018-08-06 07:16:00* Test Item Value Reference Range Comments TRIGLYCERIDES (test code=TRIG) 322 mg/dL 40-150 CHOLESTEROL (test code=CHOL) 158 mg/dL <200 CHOLESTEROL/HDL RATIO (test code=CHOLHDL) 6.08 RATIO 3.43-4.97 RISK ASSOCIATED WITH CHOL/HDL RATIOS: RISK MALE FEMALE1/2 AVERAGE 3.43 3.27AVERAGE 4.97 4.442X AVERAGE 9.55 7.053X AVERAGE 23.39 11.04 NOTE THAT THE REFERENCE VALUE IS RELATEDTO RISK LEVELS RECOMMENDED BY THE NATL.HEART, LUNG, AND BLOOD INST. HDL CHOLESTEROL (test code=HDL) 26.0 mg/dL 32-72 LIPOPROTEIN LDL (test code=LDL) 89 mg/dL 0-100 <100 [id number] NEAR OPTIMAL/ABOVE [id number] HIGH>ZI=758 VERY HIGH*Guidelines provided by the National Cholesterol EducationProgram Adult Treatment Panel III [id number] 07:04:00* Test Item Value Reference Range Comments GLUBED (test code=GLUBED) 299 MG/DL 70-110 Performed by certified roper operator at [facility] CBC W/MANUAL [id number] 06:55:00* Test Item Value Reference Range Comments WHITE BLOOD CELL (test code=WBC) 5.88 x10 3/uL 4.5-11.0 RED BLOOD CELL (test code=RBC) 4.17 x10 6/uL 4.00-5.60 HEMOGLOBIN (test code=HGB) 12.8 g/dL 12.5-16.9 HEMATOCRIT (test code=HCT) 37.8 % 37.5-50.7 MEAN CELL VOLUME (test code=MCV) 90.6 fL 81.0-99.0 MEAN CELL HGB (test code=MCH) 30.7 pg 27.0-33.0 MEAN CELL HGB CONCETRATION (test code=MCHC) 33.9 g/dL 33.0-37.0 RED CELL DISTRIBUTION WIDTH CV (test code=RDW) 14.3 % 11.5-14.5 RED CELL DISTRIBUTION WIDTH SD (test code=RDW-SD) 47.4 fL 37.0-54.0 PLATELET COUNT (test code=PLT) 213 x10 3/uL 150-400 MEAN PLATELET VOLUME (test code=MPV) 10.0 fL 7.0-9.0 ANISOCYTOSIS (test code=ANISO) PLATELET ESTIMATE (test code=PLTEST) THOUSAND ADEQUATE - CT ANGIO [id number] 21:42:00 Name: ARANZA WHITNEY [facility] : 1970 Age/S: 48 / M [address] [place] [address] Unit #: [id number] Loc: [place] [address] Phys: Camila Richards MD Acct: [id number] Dis Date: Status: ADM IN PHONE #: [phone] Exam Date: 08/05/20182109 FAX #: [phone] Reason: stroke EXAMS: CPT CODE: [id number] CT ANGIO NECK 35964 CTA HEAD, CTA NECK INDICATION:stroke. TECHNIQUE: Isovue Iodinated intravenous contrast was administered. CT angiogram was performed of the head with axial, coronal and sagittal reconstructions. Maximum intensity projections were reviewed. CT angiogram of the neck was performed with axial, coronal and sagittal reconstructions. Maximum intensity projections were reviewed. Radiation dose length product 2983 mGy-cm. COMPARISONS: CT brain 08/04/2018. CT angiogram head and neck 03/15/2017 FINDINGS: CTA HEAD: The paranasal sinuses are clear as visualized. The mastoid air cells and middle ears appear clear as visualized. There is multifocal dental disease. There is no acute depressed skull fracture. The cerebral ventricles are normal caliber. There is no cerebral mass effect, midline shift or herniation. There is stable mild to moderate volume loss of the cerebellum, out of proportion to the remainder of the brain, previously reported. The dural veins reveal no evidence of thrombosis. The vertebral arteries reveal no aneurysm, dissection or high-grade luminal stenosis. The basilar artery reveals no aneurysm, dissection, high-grade stenosis or occlusion. The posterior cerebral arteries reveal no aneurysm, dissection or high-grade luminal stenosis. There is a patent left posterior communicating cerebral artery. PAGE 1 Signed Report (CONTINUED) Name: ARANZA WHITNEY [facility] : 1970 Age/S: 48 / M [address] [place] [address] Blvd Unit #: [id number] Loc: [place] [address] Phys: Camila Richards MD Acct: [id number] Dis Date: Status: ADM IN PHONE #: [phone] Exam Date: 08/05/20182109 FAX #: [phone] Reason: stroke EXAMS: CPT CODE: [id number] CT ANGIO NECK 94142 <Continued> The internal carotid arteries reveal no aneurysm, dissection or high-grade luminal stenosis. The anterior cerebral arteries reveal no aneurysm, dissection or high-grade luminal stenosis. The middle cerebral arteries reveal no aneurysm, dissection or high-grade luminal stenosis. CTA NECK: There is anterior metallic fusion of the cervical spine at C5-C6 with an intervertebral cage. There is no acute osseous fracture. There are surgical changes of sternotomy. There is stable scar in the right upper lobe of the lung. There is a mild burden of atherosclerotic calcification of the coronary arteries. There is mild atherosclerotic vascular calcification of the aorta. There is no aortic aneurysm, dissection or significant stenosis. There is a typical three- vessel configuration of the great vessel origins from the aortic arch. The right common carotid artery reveals no significant stenosis. There is nonstenotic atherosclerotic calcification of the proximal right internal carotid artery. The left common carotid artery reveals no significant stenosis. There is nonstenotic atherosclerotic calcification of the left proximal internal carotid artery. Evaluation of the bilateral vertebral arteries is limited due to late contrast bolus timing and beam hardening artifact from the spine. These vessels appear widely patent as visualized, however the proximal segment visualization is significantly limited. There is a 7 mm hypodense left thyroid nodule. Thyroid nodules this size in this patient's age are statistically most likely benign and require no additional follow-up. IMPRESSION: PAGE 2 Signed Report (CONTINUED) Name: ARANZA WHITNEY [facility] : 1970 Age/S: 48 / M [address] [place] [address] Blvd Unit #: [id number] Loc: [place] [address] Phys: Camila Richards MD Acct: [id number] Dis Date: Status: ADM IN PHONE #: [phone] Exam Date: 08/05/20182109 FAX #: [phone] Reason: stroke EXAMS: CPT CODE: [id number] CT ANGIO NECK 10936 < Continued> CTA HEAD: 1. There is no intracranial arterial occlusion, high-grade stenosis, dissection, aneurysm or vascular malformation. CTA NECK: 1. There is no cervical arterial occlusion, high-grade stenosis, dissection or aneurysm. 2. Evaluation of the bilateral vertebral arteries is limited due to late contrast bolus timing and beam hardening artifact from the spine. These vessels appear widely patent as visualized. CAROTID STENOSIS REFERENCE USING NASCET CRITERIA: % ICA stenosis=(1- narrowest ICA diameter/diameter of distal cervical ICA) x 100 - Mild: <50% stenosis -Moderate: 50-69% stenosis -Severe: 70-94% stenosis -Near occlusion: 95-99% stenosis -Occluded: 100% stenosis at 214 Reported and signed by: Christian Welch D.O. CC: Deepak Ruby MD; Camila Richards MD; Pepito Moore MD; Blake Cruz M.D. Technologist:RT Tyrone(R)(CT) CTDI: DLP: Trnscb Date/Time: 08/05/2018 (2141) [email or web address] Orig Print D/T: S: 08/05/2018 (214) PAGE 3 Signed Report - CT ANGIO [id number] 21:42:00 Name: ARANZA WHITNEY : 1970 Age/S: 48 / M [address] [place] [address] Unit #: [id number] Loc: [place] [address] Phys: Camila Richards MD Acct: [id number] Dis Date: Status: ADM IN PHONE #: [phone] Exam Date: 08/05/20182109 FAX #: [phone] Reason: stroke EXAMS: CPT CODE: [id number] CT ANGIO HEAD 13637 CTA HEAD, CTA NECK INDICATION:stroke. TECHNIQUE: Isovue Iodinated intravenous contrast was administered. CT angiogram was performed of the head with axial, coronal and sagittal reconstructions. Maximum intensity projections were reviewed. CT angiogram of the neck was performed with axial, coronal and sagittal reconstructions. Maximum intensity projections were reviewed. Radiation dose length product 2983 mGy-cm. COMPARISONS: CT brain 08/04/2018. CT angiogram head and neck 03/15/2017 FINDINGS: CTA HEAD: The paranasal sinuses are clear as visualized. The mastoid air cells and middle ears appear clear as visualized. There is multifocal dental disease. There is no acute depressed skull fracture. The cerebral ventricles are normal caliber. There is no cerebral mass effect, midline shift or herniation. There is stable mild to moderate volume loss of the cerebellum, out of proportion to the remainder of the brain, previously reported. The dural veins reveal no evidence of thrombosis. The vertebral arteries reveal no aneurysm, dissection or high-grade luminal stenosis. The basilar artery reveals no aneurysm, dissection, high-grade stenosis or occlusion. The posterior cerebral arteries reveal no aneurysm, dissection or high-grade luminal stenosis. There is a patent left posterior communicating cerebral artery. PAGE 1 Signed Report (CONTINUED) Name: ARANZA WHITNEY : 1970 Age/S: 48 / M [address] [place] [address] Unit #: [id number] Loc: [place] [address] Phys: Camila Richards MD Acct: [id number] Dis Date: Status: ADM IN PHONE #: [phone] Exam Date: 08/05/20182109 FAX #: [phone] Reason: stroke EXAMS: CPT CODE: [id number] CT ANGIO HEAD 20868 <Continued> The internal carotid arteries reveal no aneurysm, dissection or high-grade luminal stenosis. The anterior cerebral arteries reveal no aneurysm, dissection or high-grade luminal stenosis. The middle cerebral arteries reveal no aneurysm, dissection or high-grade luminal stenosis. CTA NECK: There is anterior metallic fusion of the cervical spine at C5-C6 with an intervertebral cage. There is no acute osseous fracture. There are surgical changes of sternotomy. There is stable scar in the right upper lobe of the lung. There is a mild burden of atherosclerotic calcification of the coronary arteries. There is mild atherosclerotic vascular calcification of the aorta. There is no aortic aneurysm, dissection or significant stenosis. There is a typical three- vessel configuration of the great vessel origins from the aortic arch. The right common carotid artery reveals no significant stenosis. There is nonstenotic atherosclerotic calcification of the proximal right internal carotid artery. The left common carotid artery reveals no significant stenosis. There is nonstenotic atherosclerotic calcification of the left proximal internal carotid artery. Evaluation of the bilateral vertebral arteries is limited due to late contrast bolus timing and beam hardening artifact from the spine. These vessels appear widely patent as visualized, however the proximal segment visualization is significantly limited. There is a 7 mm hypodense left thyroid nodule. Thyroid nodules this size in this patient's age are statistically most likely benign and require no additional follow-up. IMPRESSION: PAGE 2 Signed Report (CONTINUED) Name: ARANZA WHITNEY [facility] : 1970 Age/S: 48 / M [address] [place] [address] Unit #: [id number] Loc: [place] [address] Phys: Camila Richards MD Acct: [id number] Dis Date: Status: ADM IN PHONE #: [phone] Exam Date: 08/05/20182109 FAX #: [phone] Reason: stroke EXAMS: CPT CODE: [id number] CT ANGIO HEAD 82521 < Continued> CTA HEAD: 1. There is no intracranial arterial occlusion, high-grade stenosis, dissection, aneurysm or vascular malformation. CTA NECK: 1. There is no cervical arterial occlusion, high-grade stenosis, dissection or aneurysm. 2. Evaluation of the bilateral vertebral arteries is limited due to late contrast bolus timing and beam hardening artifact from the spine. These vessels appear widely patent as visualized. CAROTID STENOSIS REFERENCE USING NASCET CRITERIA: % ICA stenosis=(1- narrowest ICA diameter/diameter of distal cervical ICA) x 100 - Mild: <50% stenosis -Moderate: 50-69% stenosis -Severe: 70-94% stenosis -Near occlusion: 95-99% stenosis -Occluded: 100% stenosis at 2141 Reported and signed by: Christian Welch D.O. CC: Deepak Ruby MD; Camila Richards MD; Pepito Moore MD; Blake Cruz M.D. Technologist:RT Tyrone(R)(CT) CTDI: DLP: Trnscb Date/Time: 08/05/2018 (2141) [email or web address] Orig Print D/T: S: 08/05/2018 (2144) PAGE 3 Signed Report - CT HEAD/BRAIN W/O CONT 2018-08-05 21:26:00 Name: ARANZA WHITNEY [facility] : 1970 Age/S: 48 / M [address] [place] [address] Unit #: [id number] Loc: [place] [address] Phys: Camila Richards MD Acct: [id number] Dis Date: Status: ADM IN PHONE #: [phone] Exam Date: 08/05/20182110 FAX #: [phone] Reason: stroke EXAMS: CPT CODE: [id number] CT HEAD/BRAIN W/O CONT [address] HEAD INDICATION: stroke. TECHNIQUE: Unenhanced CT was performed from the skull vertex to the foramen magnum with axial, coronal and sagittal reconstructions. Radiation dose length product 1120 mGy-cm. COMPARISONS: CT head 08/04/2018, 06/12/2018, MRI brain 05/13/2017, CT head 05/26/2015, 12/11/2014 FINDINGS: The paranasal sinuses are clear as visualized. The mastoid air cells and middle ears appear clear as visualized. There is no acute depressed skull fracture. There is a mild burden of atherosclerotic vascular calcification of the intracranial arteries. The cerebral ventricles are normal caliber. There is no cerebral mass effect, midline shift, intracranial hemorrhage or acute large vessel territory cerebral cortical edema. There is mild to moderate generalized atrophy of the cerebellum, out of proportion to the cortex. This is nonspecific but can be associated with anticonvulsant therapy, chronic alcohol intake, a paraneoplastic or neurodegenerative syndrome. IMPRESSION: 1. There is no acute intracranial process. No intracranial hemorrhage or acute cerebral edema. 2. There is stable mild to moderate generalized atrophy of the cerebellum, out of proportion to the cortex. This is nonspecific but can be associated with anticonvulsant therapy, chronic alcohol intake, a paraneoplastic or neurodegenerative syndrome. at 2125 Reported and signed by: Christian Welch D.O. PAGE 1 Signed Report (CONTINUED) Name: ARANZA WHITNEY [facility] : 1970 Age/S: 48 / M [address] [place] [address] Unit #: [id number] Loc: [place] [address] Phys: Camila Richards MD Acct: [id number] Dis Date: Status: ADM IN PHONE #: [phone] Exam Date: 08/05/20182110 FAX #: [phone] Reason: stroke EXAMS: CPT CODE: [id number] CT HEAD/BRAIN W/O CONT 74646 < Continued> CC: Deepak Ruby MD; Camila Richards MD; Pepito Moore MD; Blake Cruz M.D. Technologist:RT Tyrone(R)(CT) CTDI: DLP: Trnscb Date/Time: 08/05/2018 (2125) [email or web address] Orig Print D/T: S: 08/05/2018 (2128) PAGE 2 Signed Report [id number] 19:47:00* Test Item Value Reference Range Comments GLUBED (test code=GLUBED) 223 MG/DL 70-110 Performed by certified roper operator at [facility] [id number] 17:02:00* Test Item Value Reference Range Comments GLUBED (test code=GLUBED) 194 MG/DL 70-110 Performed by certified roper operator at [facility] CBC W/AUTO [id number] 14:52:00* Test Item Value Reference Range Comments WHITE BLOOD CELL (test code=WBC) 6.13 x10 3/uL 4.5-11.0 RED BLOOD CELL (test code=RBC) 4.27 x10 6/uL 4.00-5.60 HEMOGLOBIN (test code=HGB) 13.1 g/dL 12.5-16.9 HEMATOCRIT (test code=HCT) 38.5 % 37.5-50.7 MEAN CELL VOLUME (test code=MCV) 90.2 fL 81.0-99.0 MEAN CELL HGB (test code=MCH) 30.7 pg 27.0-33.0 MEAN CELL HGB CONCETRATION (test code=MCHC) 34.0 g/dL 33.0-37.0 RED CELL DISTRIBUTION WIDTH CV (test code=RDW) 14.4 % 11.5-14.5 RED CELL DISTRIBUTION WIDTH SD (test code=RDW-SD) 47.6 fL 37.0-54.0 PLATELET COUNT (test code=PLT) 221 x10 3/uL 150-400 MEAN PLATELET VOLUME (test code=MPV) 10.1 fL 7.0-9.0 NEUTROPHIL % (test code=NT%) 58.1 % 56.0-77.0 IMMATURE GRANULOCYTE % (test code=IG%) 1.3 % 0.0-2.0 LYMPHOCYTE % (test code=LY%) 28.1 % 14.0-32.0 MONOCYTE % (test code=MO%) 10.3 % 4.8-9.0 EOSINOPHIL % (test code=EO%) 1.5 % 0.3-3.7 BASOPHIL % (test code=BA%) 0.7 % 0.0-2.0 NUCLEATED RBC % (test code=NRBC%) 0.0 % 0-0 NEUTROPHIL # (test code=NT#) 3.57 x10 3/uL 2.0-7.6 IMMATURE GRANULOCYTE # (test code=IG#) 0.08 x10 3/uL 0.00-0.03 LYMPHOCYTE # (test code=LY#) 1.72 x10 3/uL 1.0-3.8 MONOCYTE # (test code=MO#) 0.63 x10 3/uL 0.1-0.8 EOSINOPHIL # (test code=EO#) 0.09 x10 3/uL 0.0-0.2 BASOPHIL # (test code=BA#) 0.04 x10 3/uL 0.0-0.2 NUCLEATED RBC # (test code=NRBC#) 0.00 x10 3/uL 0.0-0.1 MANUAL DIFF REQUIRED (test code=MDIFF) NO BASIC METABOLIC [id number] 14:37:00* Test Item Value Reference Range Comments SODIUM (test code=NA) 137 mEq/L 134-147 POTASSIUM (test code=K) 3.6 mEq/L 3.4-5.0 CHLORIDE (test code=CL) 102 mEq/L 100-108 CARBON DIOXIDE (test code=CO2) 28 mEq/L 21-33 ANION GAP (test code=GAP) 11 0-20 GLUCOSE (test code=GLU) 204 mg/dL 70-110 BLOOD UREA NITROGEN (test code=BUN) 16 mg/dL 7-18 GLOMERULAR FILTRATION RATE (test code=GFR) 64.6 95-105 Units of measure=ml/min/1.73 m2 CREATININE (test code=CREAT) 1.2 mg/dL 0.6-1.3 CALCIUM (test code=CA) 8.4 mg/dL 8.0-10.5 [id number] 12:05:00* Test Item Value Reference Range Comments GLUBED (test code=GLUBED) 221 MG/DL 70-110 Performed by certified roper operator at [facility] [id number] 07:02:00* Test Item Value Reference Range Comments TROPONIN-I (test code=TROPI) < 0.015 ng/mL 0.000-0.045 Negative: <=0.045 Positive: >=0.046 Correlation with serial results, other cardiac markers andclinical findings is necessary to determine the clinicalsignificance of this result. Results using different methodologies should not be comparedto one another as quantitative results may vary by method. COMMENTS: 3 troponins total (including troponin done in ED)[id number] 06:03:00* Test Item Value Reference Range Comments GLUBED (test code=GLUBED) 189 MG/DL 70-110 Performed by certified roper operator at [facility] [id number] 03:19:00* Test Item Value Reference Range Comments TROPONIN-I (test code=TROPI) < 0.015 ng/mL 0.000-0.045 Negative: <=0.045 Positive: >=0.046 Correlation with serial results, other cardiac markers andclinical findings is necessary to determine the clinicalsignificance of this result. Results using different methodologies should not be comparedto one another as quantitative results may vary by method. COMMENTS: 3 troponins total (including troponin done in ED)- XR CHEST 1 V 2018-08-04 23:51:00 FAX: Ankita Billingsley MD [phone] [place]: St: [facility] FAX: Blake Cazares MD [phone] Name: ARANZA WHITNEY [facility] : 1970 Age/S: 48/M [address] [place] [address] Unit #: [id number] Loc: [place] [address] Phys: Dexter Montoya MD Acct: [id number] Dis Date: Status: REG ER PHONE #: [phone] Exam Date: 08/04/2018 2346 FAX #: [phone] Reason: stroke EXAMS: CPT CODE: [id number] XR CHEST 1 V 53348 EXAM: CR, XR chest one view: 08/04/2018, 2339 hours HISTORY: stroke TECHNIQUE: 1 view of the chest. COMPARISON: 07/26/2018, 2119 hours FINDINGS: Trachea is midline. Sternotomy clips are present. Heart is enlarged. Pulmonary vascularity is congested. There is no airspace consolidation, pleural effusion or pneumothorax. Osseous structures are stable. IMPRESSION: Findings suggestive of mild congestive cardiac failure. SL: [JSYED-H] at 2351 Reported and signed by: Jorje Blackmon M.D. CC: Deepak Ruby MD; Blake Cruz M.D. Technologist: RT Landon(Saritha) Trnscrd Date/Time/By: 08/04/2018 (3029) : By: [id number] Orig Print D/T: S: 08/04/2018 (2201) PAGE 1 Signed Report TROPONIN-I [id number] 23:34:00* Test Item Value Reference Range Comments TROPONIN-I RAPID (test code=TROPIRAP) 0.00 ng/mL 0.00-0.08 Performed by certified roper operator at [facility] Negative: <=0.08 Positive: >=0.09An elevated troponin value alone is not sufficient todiagnose a myocardial infarction. Rather, the patient sclinical presentation (history, physical exam) and ECGshould be used in conjunction with troponin in thediagnostic evaluation of suspected myocardial infarction. Aserial sampling protocol is recommended to facilitate the identification of temporal changes in troponin levels characteristic of AR. CHEMISTRY 8 [id number] 23:30:00* Test Item Value Reference Range Comments ISTAT-SODIUM (test code=NAP) MMOL/L 134-147 ISTAT-POTASSIUM (test code=KP) MMOL/L 3.4-5.0 ISTAT-CHLORIDE (test code=CLP) MMOL/L 100-108 ISTAT CARBON DIOXIDE (test code=ISTAT-CO2) mmol/L 21-33 ISTAT CALCIUM IONIZED (test code=ISTAT-KAREEM) MG/DL 1.12-1.32 ISTAT-GLUCOSE (test code=GLUP) MG/DL 70-110 ISTAT-BUN (test code=BUNP) MG/DL 7-18 BEDSIDE CREATININE (test code=CREATBED) MG/DL 0.6-1.3 GLOMERULAR FILTRATION RATE POC (test code=GFRBED) 69 ML/MIN CHEMISTRY 8 [id number] 23:30:00* Test Item Value Reference Range Comments ISTAT-SODIUM (test code=NAP) 138 MMOL/L 134-147 ISTAT-POTASSIUM (test code=KP) 3.2 MMOL/L 3.4-5.0 ISTAT-CHLORIDE (test code=CLP) 97 MMOL/L 100-108 Performed by certified roper operator at [facility] ISTAT CARBON DIOXIDE (test code=ISTAT-CO2) 26.0 mmol/L 21-33 ISTAT CALCIUM IONIZED (test code=ISTAT-KAREEM) 1.12 MG/DL 1.12-1.32 ISTAT-GLUCOSE (test code=GLUP) 175 MG/DL 70-110 ISTAT-BUN (test code=BUNP) 16 MG/DL 7-18 BEDSIDE CREATININE (test code=CREATBED) 1.2 MG/DL 0.6-1.3 GLOMERULAR FILTRATION RATE POC (test code=GFRBED) 69 ML/MIN PROTHROMBIN [id number] 23:28:00* Test Item Value Reference Range Comments PROTHROMBIN TIME PATIENT (test code=PTP) 12.8 SECONDS 9.3-12.9 INTERNATIONAL NORMAL RATIO (test code=INR) 1.1 0.8-1.2 TARGET INR BY INDICATION Indication INR1. Prophylaxis of venous thrombosis 2.0 - 3.0 (orthopedic surgery), Prophylaxis of venous thrombosis (other than high-risk surgery), Treatment of Deep Vein Thrombosis/Pulmonary Embolism, Prevention of systemic embolism - Tissue heart valves, Acute Myocardial Infarction (to prevent systemic embolism), Valvular heart disease, Atrial Fibrillation, Bileaflet mechanical valve in aortic position.2. Mechanical prosthetic valves (high risk), 2.5 - 3.5 Presence of Lupus Anticoagulant or Antiphospholipid Antibodies, Prevention of systemic embolism - Acute Myocardial Infarction (to prevent recurrent infarct). THROMBOPLASTIN TIME [id number] 23:28:00* Test Item Value Reference Range Comments THROMBOPLASTIN TIME PARTIAL (test code=PTT) 39.6 Seconds 25.0-39.5 Therapeutic Range: 50.4 - 88.3 Seconds Effective 06/03/2018 PROTHROMBIN [id number] 23:26:00* Test Item Value Reference Range Comments PROTHROMBIN TIME PATIENT (test code=PTP) 12.8 SECONDS 9.3-12.9 INTERNATIONAL NORMAL RATIO (test code=INR) 1.1 0.8-1.2 TARGET INR BY INDICATION Indication INR1. Prophylaxis of venous thrombosis 2.0 - 3.0 (orthopedic surgery), Prophylaxis of venous thrombosis (other than high-risk surgery), Treatment of Deep Vein Thrombosis/Pulmonary Embolism, Prevention of systemic embolism - Tissue heart valves, Acute Myocardial Infarction (to prevent systemic embolism), Valvular heart disease, Atrial Fibrillation, Bileaflet mechanical valve in aortic position.2. Mechanical prosthetic valves (high risk), 2.5 - 3.5 Presence of Lupus Anticoagulant or Antiphospholipid Antibodies, Prevention of systemic embolism - Acute Myocardial Infarction (to prevent recurrent infarct). THROMBOPLASTIN TIME [id number] 23:26:00* Test Item Value Reference Range Comments THROMBOPLASTIN TIME PARTIAL (test code=PTT) Seconds 25.0-39.5 CBC W/O [id number] 23:21:00* Test Item Value Reference Range Comments WHITE BLOOD CELL (test code=WBC) 7.52 x10 3/uL 4.5-11.0 RED BLOOD CELL (test code=RBC) 4.22 x10 6/uL 4.00-5.60 HEMOGLOBIN (test code=HGB) 12.9 g/dL 12.5-16.9 HEMATOCRIT (test code=HCT) 37.7 % 37.5-50.7 MEAN CELL VOLUME (test code=MCV) 89.3 fL 81.0-99.0 MEAN CELL HGB (test code=MCH) 30.6 pg 27.0-33.0 MEAN CELL HGB CONCETRATION (test code=MCHC) 34.2 g/dL 33.0-37.0 RED CELL DISTRIBUTION WIDTH CV (test code=RDW) 14.3 % 11.5-14.5 RED CELL DISTRIBUTION WIDTH SD (test code=RDW-SD) 46.7 fL 37.0-54.0 PLATELET COUNT (test code=PLT) 225 x10 3/uL 150-400 MEAN PLATELET VOLUME (test code=MPV) 9.3 fL 7.0-9.0 - CT HEAD/BRAIN W/O [id number] 23:18:00 Name: ARANZA WHITNEY [facility] : 1970 Age/S: 48 / M [address] [place] [address] Unit #: [id number] Loc: [place] [address] Phys: Dexter Montoya MD Acct: [id number] Dis Date: Status: REG ER PHONE #: [phone] Exam Date: 08/04/2018 0572 FAX #: [phone] Reason: LEFT HEMIPARESIS EXAMS: CPT CODE: [id number] CT HEAD/BRAIN W/O CONT 62994 CT HEAD WITHOUT CONTRAST INDICATION: Left hemiparesis. Chest pain. Stroke. COMPARISON: 06/12/2018 CT head. TECHNIQUE: Noncontrast CT head was performed from skull base to vertex at 3 mm slice collimation. Coronal and sagittal reconstructions performed. DOSE: CT imaging performed at this location utilizes radiation dose optimization technique which includes one or more of the followin) Automated exposure control; 2) Adjustment of the mA and/or kV according to patient's size; 3) Use of iterative r econstruction techniques. DLP: 918 mGy-cm FINDINGS: BRAIN PARENCHYMA AND VENTRICLES: Carter-white matter differentiation is preserved. Ventricles are normal in size. No mass effect or midline shift. No extra-axial fluid collections. No acute intraparenchymal hemorrhage. Posterior fossa and midline structures appear normal. ORBITS, PARANASAL SINUSES, AND MASTOIDS: Visualized portions of the par anasal sinuses and mastoid air cells are clear. SKULL: Calvarium i s intact. IMPRESSION: No acute intracranial findings. The findings were telephoned to Dr. Sweeney nt by Dr. Osborn on 08/04/2018 at 2316 hours. FOR INTERNAL CODING PURPOSES ONLY RESULT C ODE: CVR SL: SG-H at 2318 Reported and signed by: Bora Osborn M.D. PAGE 1 Signed Report (CONTINUED) Name: MANDO WHITNEY [facility] : 1970 Age /S: 48 / M [address] [place] [address] Unit #: [id number] Loc: [place] [address] Phys: Dexter Montoya MD Acct: [id number] Dis Date: Status: REG ER PHONE #: [phone] Exam Date: 08/04/20182253 FAX #: [phone] Reason: LEFT HEMIPARESIS EXAMS: CPT CODE: [id number] CT HEAD/BRAIN W/O CONT 63928 <Continued> CC: Deepak Ruby MD; Blake Cruz M.D. Technologist:RT Azul(R) CTDI: DLP: Trnscb Date/Time: 08/04/2018 (2317) [email or web address] Orig Print D/T: S: 08/04/2018 (6278) PAGE 2 Signed Report [id number] 07:10:00* Test Item Value Reference Range Comments GLUBED (test code=GLUBED) 176 MG/DL 70-110 Performed by certified roper operator at [facility] [id number] 08:33:00* Test Item Value Reference Range Comments GLUBED (test code=GLUBED) 197 MG/DL 70-110 Performed by certified roper operator at [facility] [id number] 21:03:00* Test Item Value Reference Range Comments GLUBED (test code=GLUBED) 182 MG/DL 70-110 Performed by certified roper operator at [facility] [id number] 21:03:00* Test Item Value Reference Range Comments GLUBED (test code=GLUBED) 200 MG/DL 70-110 Performed by certified roper operator at [facility] [id number] 21:03:00* Test Item Value Reference Range Comments GLUBED (test code=GLUBED) 249 MG/DL 70-110 Performed by certified roper operator at [facility] [id number] 21:03:00* Test Item Value Reference Range Comments GLUBED (test code=GLUBED) 217 MG/DL 70-110 Performed by certified roper operator at [facility] [id number] 18:13:00* Test Item Value Reference Range Comments GLUBED (test code=GLUBED) 234 MG/DL 70-110 Performed by certified roper operator at [facility] PROCALCITONIN (PCT)2018-07-29 09:18:00* Test Item Value Reference Range Comments PROCALCITONIN (PCT) (test code=PROCAL) 0.06 ng/mL 0.00-0.05 PROCALCITONIN (PCT) NORMAL RANGE (ADULT): <0.05 NG/ML. * a concentration <0.5 ng/mL represents a low risk of severe sepsis and/or septic shock.* a concentration >2 ng/mL represents a high risk of severe sepsis and/or septic shock.Nevertheless, concentrations <0.5 ng/mL do not exclude aninfection, on account of localized infections (withoutsystemic signs) which can be associated with such lowconcentrations, or a systemic infection in its initialstages (< 6 hours). Furthermore, increased procalcitonincan occur without infection. PCT concentrations between 0.5and 2.0 ng/mL should be interpreted taking into account thepatient's history. It is recommended to retest PCT within6-24 hours if any concentrations <2 ng/mL are obtained. T4 [id number] 22:42:00* Test Item Value Reference Range Comments T4 FREE (test code=T4F) 1.0 ng/dL 0.77-1.61 THYROID STIMULATING [id number] 22:42:00* Test Item Value Reference Range Comments THYROID STIMULATING HORMONE (test code=TSH) 3.48 0.42-5.47 Results in flor-International Units/mL HGBA1C%2018-07-28 22:40:00* Test Item Value Reference Range Comments HGBA1C% (test code=HGBA1C%) 8.5 %A1C 4.8-6.0 BASIC METABOLIC [id number] 22:34:00* Test Item Value Reference Range Comments SODIUM (test code=NA) 135 mEq/L 134-147 POTASSIUM (test code=K) 3.3 mEq/L 3.4-5.0 CHLORIDE (test code=CL) 99 mEq/L 100-108 CARBON DIOXIDE (test code=CO2) 27 mEq/L 21-33 ANION GAP (test code=GAP) 12 0-20 GLUCOSE (test code=GLU) 182 mg/dL 70-110 BLOOD UREA NITROGEN (test code=BUN) 21 mg/dL 7-18 GLOMERULAR FILTRATION RATE (test code=GFR) 54.1 95-105 Units of measure=ml/min/1.73 m2 CREATININE (test code=CREAT) 1.4 mg/dL 0.6-1.3 CALCIUM (test code=CA) 8.8 mg/dL 8.0-10.5 [id number] 20:59:00* Test Item Value Reference Range Comments GLUBED (test code=GLUBED) 155 MG/DL 70-110 Performed by certified roper operator at [facility] [id number] 17:18:00* Test Item Value Reference Range Comments GLUBED (test code=GLUBED) 170 MG/DL 70-110 Performed by certified roper operator at [facility] [id number] 11:50:00* Test Item Value Reference Range Comments GLUBED (test code=GLUBED) 280 MG/DL 70-110 Performed by certified roper operator at [facility] PROCALCITONIN (PCT)2018-07-28 09:45:00* Test Item Value Reference Range Comments PROCALCITONIN (PCT) (test code=PROCAL) < 0.05 ng/mL 0.00-0.05 PROCALCITONIN (PCT) NORMAL RANGE (ADULT): <0.05 NG/ML. * a concentration <0.5 ng/mL represents a low risk of severe sepsis and/or septic shock.* a concentration >2 ng/mL represents a high risk of severe sepsis and/or septic shock.Nevertheless, concentrations <0.5 ng/mL do not exclude aninfection, on account of localized infections (withoutsystemic signs) which can be associated with such lowconcentrations, or a systemic infection in its initialstages (< 6 hours). Furthermore, increased procalcitonincan occur without infection. PCT concentrations between 0.5and 2.0 ng/mL should be interpreted taking into account thepatient's history. It is recommended to retest PCT within6-24 hours if any concentrations <2 ng/mL are obtained. [id number] 08:14:00* Test Item Value Reference Range Comments GLUBED (test code=GLUBED) 300 MG/DL 70-110 Performed by certified roper operator at [facility] [id number] 06:16:00* Test Item Value Reference Range Comments GLUBED (test code=GLUBED) 367 MG/DL 70-110 Performed by certified roper operator at [facility] LACTIC ACID 2ND [id number] 05:35:00* Test Item Value Reference Range Comments LACTIC ACID 2ND REPEAT (test code=LACT2) 3.0 mmol/L 0.4-1.9 WHEN 0500 LABS ARE DUE 07/28/18 @0054 G. LAB [id number] 22:32:00* Test Item Value Reference Range Comments GLUBED (test code=GLUBED) 399 MG/DL 70-110 Performed by certified roper operator at [facility] LACTIC ACID [id number] 22:30:00* Test Item Value Reference Range Comments LACTIC ACID REPEAT (test code=LACTR) 3.6 mmol/l 0.4-1.9 LACTIC [id number] 18:49:00* Test Item Value Reference Range Comments LACTIC ACID (test code=LACT) 3.7 mmol/L 0.4-1.9 RECOLLECTION WITH TRUMANGABINO LongLAB.HJ3XLRM2D%2018-07-27 18:23:00* Test Item Value Reference Range Comments HGBA1C% (test code=HGBA1C%) 8.6 %A1C 4.8-6.0 [id number] 18:21:00* Test Item Value Reference Range Comments GLUBED (test code=GLUBED) 406 MG/DL 70-110 Performed by certified roper operator at [facility] PROCALCITONIN (PCT)2018-07-27 17:26:00* Test Item Value Reference Range Comments PROCALCITONIN (PCT) (test code=PROCAL) < 0.05 ng/mL 0.00-0.05 PROCALCITONIN (PCT) NORMAL RANGE (ADULT): <0.05 NG/ML. * a concentration <0.5 ng/mL represents a low risk of severe sepsis and/or septic shock.* a concentration >2 ng/mL represents a high risk of severe sepsis and/or septic shock.Nevertheless, concentrations <0.5 ng/mL do not exclude aninfection, on account of localized infections (withoutsystemic signs) which can be associated with such lowconcentrations, or a systemic infection in its initialstages (< 6 hours). Furthermore, increased procalcitonincan occur without infection. PCT concentrations between 0.5and 2.0 ng/mL should be interpreted taking into account thepatient's history. It is recommended to retest PCT within6-24 hours if any concentrations <2 ng/mL are obtained. COMPREHENSIVE METABOLIC [id number] 16:43:00* Test Item Value Reference Range Comments SODIUM (test code=NA) 130 mEq/L 134-147 POTASSIUM (test code=K) 4.1 mEq/L 3.4-5.0 CHLORIDE (test code=CL) 96 mEq/L 100-108 CARBON DIOXIDE (test code=CO2) 24 mEq/L 21-33 ANION GAP (test code=GAP) 14 0-20 GLUCOSE (test code=GLU) 404 mg/dL 70-110 BLOOD UREA NITROGEN (test code=BUN) 17 mg/dL 7-18 GLOMERULAR FILTRATION RATE (test code=GFR) 54.1 95-105 Units of measure=ml/min/1.73 m2 CREATININE (test code=CREAT) 1.4 mg/dL 0.6-1.3 TOTAL PROTEIN (test code=PROT) 7.0 g/dL 6.4-8.2 ALBUMIN (test code=ALB) 3.30 g/dL 3.4-5.0 CALCIUM (test code=CA) 8.3 mg/dL 8.0-10.5 BILIRUBIN TOTAL (test code=BILT) 0.30 mg/dL 0.0-1.0 SGOT/AST (test code=AST) 16 IUnit/L 15-37 SGPT/ALT (test code=ALT) 30 IUnit/L 15-65 ALKALINE PHOSPHATASE TOTAL (test code=ALKP) 109 IUnit/L 20-125 CBC W/AUTO [id number] 16:19:00* Test Item Value Reference Range Comments WHITE BLOOD CELL (test code=WBC) 9.85 x10 3/uL 4.5-11.0 RED BLOOD CELL (test code=RBC) 4.30 x10 6/uL 4.00-5.60 HEMOGLOBIN (test code=HGB) 13.2 g/dL 12.5-16.9 HEMATOCRIT (test code=HCT) 37.8 % 37.5-50.7 MEAN CELL VOLUME (test code=MCV) 87.9 fL 81.0-99.0 MEAN CELL HGB (test code=MCH) 30.7 pg 27.0-33.0 MEAN CELL HGB CONCETRATION (test code=MCHC) 34.9 g/dL 33.0-37.0 RED CELL DISTRIBUTION WIDTH CV (test code=RDW) 14.7 % 11.5-14.5 RED CELL DISTRIBUTION WIDTH SD (test code=RDW-SD) 47.2 fL 37.0-54.0 PLATELET COUNT (test code=PLT) 229 x10 3/uL 150-400 MEAN PLATELET VOLUME (test code=MPV) 10.2 fL 7.0-9.0 NEUTROPHIL % (test code=NT%) 82.9 % 56.0-77.0 IMMATURE GRANULOCYTE % (test code=IG%) 1.3 % 0.0-2.0 LYMPHOCYTE % (test code=LY%) 9.1 % 14.0-32.0 MONOCYTE % (test code=MO%) 6.5 % 4.8-9.0 EOSINOPHIL % (test code=EO%) 0.0 % 0.3-3.7 BASOPHIL % (test code=BA%) 0.2 % 0.0-2.0 NUCLEATED RBC % (test code=NRBC%) 0.0 % 0-0 NEUTROPHIL # (test code=NT#) 8.16 x10 3/uL 2.0-7.6 IMMATURE GRANULOCYTE # (test code=IG#) 0.13 x10 3/uL 0.00-0.03 LYMPHOCYTE # (test code=LY#) 0.90 x10 3/uL 1.0-3.8 MONOCYTE # (test code=MO#) 0.64 x10 3/uL 0.1-0.8 EOSINOPHIL # (test code=EO#) 0.00 x10 3/uL 0.0-0.2 BASOPHIL # (test code=BA#) 0.02 x10 3/uL 0.0-0.2 NUCLEATED RBC # (test code=NRBC#) 0.00 x10 3/uL 0.0-0.1 MANUAL DIFF REQUIRED (test code=MDIFF) NO [id number] 15:07:00* Test Item Value Reference Range Comments GLUBED (test code=GLUBED) 481 MG/DL 70-110 Performed by certified roper operator at [facility] [id number] 15:07:00* Test Item Value Reference Range Comments GLUBED (test code=GLUBED) 474 MG/DL 70-110 Performed by certified roper operator at [facility] [id number] 15:06:00* Test Item Value Reference Range Comments GLUBED (test code=GLUBED) 547 MG/DL 70-110 Performed by certified roper operator at [facility] URINALYSIS [id number] 15:03:00* Test Item Value Reference Range Comments UA COLOR (test code=COLU) YELLOW YEL/STRAW UA APPEARANCE (test code=APPU) CLEAR CLEAR UA GLUCOSE DIPSTICK (test code=DGLUU) 4+ NEGATIVE UA BILIRUBIN DIPSTICK (test code=BILU) NEGATIVE NEGATIVE UA KETONE DIPSTICK (test code=KETU) NEGATIVE NEGATIVE UA SPECIFIC GRAVITY (test code=SGU) 1.010 1.005-1.030 UA BLOOD DIPSTICK (test code=JOAQUIN) NEGATIVE NEGATIVE UA PH DIPSTICK (test code=ROXIE) 7.0 5.0-7.0 UA PROTEIN DIPSTICK (test code=PROU) NEGATIVE NEGATIVE UA UROBILINIOGEN DIPSTICK (test code=URO) 0.2 mg/dL 0.2-1.0 UA NITRITE DIPSTICK (test code=TWIN) NEGATIVE NEGATIVE UA LEUKOCYTE ESTERASE DIPSTICK (test code=LEUU) NEGATIVE NEGATIVE UA WBC (test code=WBCU) 0-3 WBC/HPF 0-3 UA RBC (test code=RBCU) 0-3 RBC/HPF 0-3 UA BACTERIA (test code=BACU) NONE SEEN /HPF NONE SEEN UA SQUAMOUS CELLS (test code=SQU) 0-5 /HPF NONE SEEN UA CULT [id number] 15:03:00* Test Item Value Reference Range Comments UA CULTURE NEEDED? (test code=UACULT) NO, WBC<10 Criteria Culture Chk Criteria not met, Urine Culture cancelled. URINALYSIS [id number] 14:53:00* Test Item Value Reference Range Comments UA COLOR (test code=COLU) YELLOW YEL/STRAW UA APPEARANCE (test code=APPU) CLEAR CLEAR UA GLUCOSE DIPSTICK (test code=DGLUU) 4+ NEGATIVE UA BILIRUBIN DIPSTICK (test code=BILU) NEGATIVE NEGATIVE UA KETONE DIPSTICK (test code=KETU) NEGATIVE NEGATIVE UA SPECIFIC GRAVITY (test code=SGU) 1.010 1.005-1.030 UA BLOOD DIPSTICK (test code=JOAQUIN) NEGATIVE NEGATIVE UA PH DIPSTICK (test code=ROXIE) 7.0 5.0-7.0 UA PROTEIN DIPSTICK (test code=PROU) NEGATIVE NEGATIVE UA UROBILINIOGEN DIPSTICK (test code=URO) 0.2 mg/dL 0.2-1.0 UA NITRITE DIPSTICK (test code=TWIN) NEGATIVE NEGATIVE UA LEUKOCYTE ESTERASE DIPSTICK (test code=LEUU) NEGATIVE NEGATIVE UA WBC (test code=WBCU) WBC/HPF 0-3 UA RBC (test code=RBCU) RBC/HPF 0-3 UA CULT [id number] 14:53:00* Test Item Value Reference Range Comments UA CULTURE NEEDED? (test code=UACULT) Criteria Culture Chk [id number] 14:10:00* Test Item Value Reference Range Comments GLUBED (test code=GLUBED) 441 MG/DL 70-110 Performed by certified roper operator at [facility] [id number] 12:41:00* Test Item Value Reference Range Comments GLUBED (test code=GLUBED) 392 MG/DL 70-110 Performed by certified roper operator at [facility] [id number] 10:46:00* Test Item Value Reference Range Comments GLUBED (test code=GLUBED) 419 MG/DL 70-110 Performed by certified roper operator at [facility] [id number] 03:34:00* Test Item Value Reference Range Comments TROPONIN-I (test code=TROPI) < 0.015 ng/mL 0.000-0.045 Negative: <=0.045 Positive: >=0.046 Correlation with serial results, other cardiac markers andclinical findings is necessary to determine the clinicalsignificance of this result. Results using different methodologies should not be comparedto one another as quantitative results may vary by method. COMMENTS: 3 troponins total (including troponin done in ED)DRUGS OF ABUSE SCREEN [id number] 01:12:00* Test Item Value Reference Range Comments URN COCAINE (test code=COCAURN) NEGATIVE NEGATIVE URN CANNABINOIDS (test code=CANNABURN) NEGATIVE NEGATIVE URN AMPHETAMINE (test code=AMPHETURN) NEGATIVE NEGATIVE URN BARBITURATE (test code=BARBITURN) NEGATIVE NEGATIVE URN BENZODIAZEPINE (test code=BENZOURN) NEGATIVE NEGATIVE Cut-off value:200 ng/mL URN OPIATES (test code=OPIATURN) POSITIVE NEGATIVE Cut-off value:2000 ng/mL URN PHENCYCLIDINE (PCP) (test code=PHENCURN) NEGATIVE NEGATIVE Cutoffs:Barbiturates 200 ng/mLBenzodiazepines 200 ng/mLTHC Cannabinoids 50 ng/mLOpiates(Morphine) 2000 ng/mLAmphetamine 1000 ng/mLCocaine 300 ng/mLPCP phencyclidine 25 ng/mL Unconfirmed screening results shouldnot be used for non-medical purposes. DRUGS OF ABUSE SCREEN [id number] 01:02:00* Test Item Value Reference Range Comments URN COCAINE (test code=COCAURN) NEGATIVE NEGATIVE URN CANNABINOIDS (test code=CANNABURN) NEGATIVE NEGATIVE URN AMPHETAMINE (test code=AMPHETURN) NEGATIVE NEGATIVE URN BARBITURATE (test code=BARBITURN) NEGATIVE NEGATIVE URN BENZODIAZEPINE (test code=BENZOURN) NEGATIVE NEGATIVE Cut-off value:200 ng/mL URN OPIATES (test code=OPIATURN) NEGATIVE URN PHENCYCLIDINE (PCP) (test code=PHENCURN) NEGATIVE NEGATIVE Cutoffs:Barbiturates 200 ng/mLBenzodiazepines 200 ng/mLTHC Cannabinoids 50 ng/mLOpiates(Morphine) 2000 ng/mLAmphetamine 1000 ng/mLCocaine 300 ng/mLPCP phencyclidine 25 ng/mL Unconfirmed screening results shouldnot be used for non-medical purposes. [id number] 00:40:00* Test Item Value Reference Range Comments TROPONIN-I (test code=TROPI) < 0.015 ng/mL 0.000-0.045 Negative: <=0.045 Positive: >=0.046 Correlation with serial results, other cardiac markers andclinical findings is necessary to determine the clinicalsignificance of this result. Results using different methodologies should not be comparedto one another as quantitative results may vary by method. COMMENTS: 3 troponins total (including troponin done in ED)B-TYPE NATRIURETIC [id number] 21:56:00* Test Item Value Reference Range Comments B-TYPE NATRIURETIC PEPTIDE (test code=BNP) 16.8 PG/ML 0-100 BASIC METABOLIC [id number] 21:50:00* Test Item Value Reference Range Comments SODIUM (test code=NA) 134 mEq/L 134-147 POTASSIUM (test code=K) 3.8 mEq/L 3.4-5.0 CHLORIDE (test code=CL) 100 mEq/L 100-108 CARBON DIOXIDE (test code=CO2) 27 mEq/L 21-33 ANION GAP (test code=GAP) 11 0-20 GLUCOSE (test code=GLU) 312 mg/dL 70-110 BLOOD UREA NITROGEN (test code=BUN) 14 mg/dL 7-18 GLOMERULAR FILTRATION RATE (test code=GFR) 71.4 95-105 Units of measure=ml/min/1.73 m2 CREATININE (test code=CREAT) 1.1 mg/dL 0.6-1.3 CALCIUM (test code=CA) 8.2 mg/dL 8.0-10.5 HEPATIC FUNCTION [id number] 21:50:00* Test Item Value Reference Range Comments TOTAL PROTEIN (test code=PROT) 6.7 g/dL 6.4-8.2 ALBUMIN (test code=ALB) 3.30 g/dL 3.4-5.0 BILIRUBIN TOTAL (test code=BILT) 0.50 mg/dL 0.0-1.0 BILIRUBIN DIRECT (test code=BILD) < 0.10 MG/DL 0.0-0.30 BILIRUBIN INDIRECT (test code=BILIND) 0.40 MG/DL SGOT/AST (test code=AST) 22 IUnit/L 15-37 SGPT/ALT (test code=ALT) 33 IUnit/L 15-65 ALKALINE PHOSPHATASE TOTAL (test code=ALKP) 127 IUnit/L 20-125 [id number] 21:50:00* Test Item Value Reference Range Comments LIPASE (test code=LIP) 96 IUnit/L 73-393 [id number] 21:50:00* Test Item Value Reference Range Comments MAGNESIUM (test code=MAG) 2.00 mg/dL 1.8-2.4 THYROID STIMULATING [id number] 21:50:00* Test Item Value Reference Range Comments THYROID STIMULATING HORMONE (test code=TSH) 3.04 0.42-5.47 Results in flor-International Units/mL [id number] 21:50:00* Test Item Value Reference Range Comments TROPONIN-I (test code=TROPI) < 0.015 ng/mL 0.000-0.045 Negative: <=0.045 Positive: >=0.046 Correlation with serial results, other cardiac markers andclinical findings is necessary to determine the clinicalsignificance of this result. Results using different methodologies should not be comparedto one another as quantitative results may vary by method. - XR CHEST 1 [id number] 21:48:00 FAX: Ankita Billingsley MD [phone] [place]: St: ADM FAX: Anders Huertas MD [phone] FAX: Blake Cazares MD [phone] Name: ARANZA WHITNEY [facility] : 1970 Age/S: 48/M [address] [place] [address] Unit #: [id number] Loc: [place] [address] Phys: Anders Horowitz MD Acct: [id number] Dis Date: Status: ADM IN ONE #: [phone] Exam Date: 07/26/20182144 FAX #: [phone] Reason: Chest Pain EXAMS: CPT CODE: [id number] XR CHEST 1 V [address]107 CHEST, SINGLE VIEW HISTORY: Chest pain Comparison made to chest x-ray. FINDINGS: The lungs are clear. The heart is enlarged. Pulmonary vascularity is prominent. No acute lung inf iltrate or pleural fluid. IMPRESSION: Congesti ve heart failure. SL:01 Electron maryam Signed by Jose Luis Sanchez on 9 at 8 Reported and signed by: Hollis tavarez M.D. CC: Deepak Ruby MD; Anders Horowitz MD; Blake Cruz M.D. Technologist: VIDAL Ramirez RT(R); Elisa Zeng RT(R) Trnnjrd Date/Time/By: 07/26/2018 (2147) : By: Deb Orig Print D/T: S: 07/26/2018 (1451) PAGE 1 Signed Report BASIC METABOLIC [id number] 21:44:00* Test Item Value Reference Range Comments SODIUM (test code=NA) 134 mEq/L 134-147 POTASSIUM (test code=K) 3.8 mEq/L 3.4-5.0 CHLORIDE (test code=CL) 100 mEq/L 100-108 CARBON DIOXIDE (test code=CO2) 27 mEq/L 21-33 ANION GAP (test code=GAP) 11 0-20 GLUCOSE (test code=GLU) 312 mg/dL 70-110 BLOOD UREA NITROGEN (test code=BUN) 14 mg/dL 7-18 GLOMERULAR FILTRATION RATE (test code=GFR) 71.4 95-105 Units of measure=ml/min/1.73 m2 CREATININE (test code=CREAT) 1.1 mg/dL 0.6-1.3 CALCIUM (test code=CA) 8.2 mg/dL 8.0-10.5 HEPATIC FUNCTION [id number] 21:44:00* Test Item Value Reference Range Comments TOTAL PROTEIN (test code=PROT) 6.7 g/dL 6.4-8.2 ALBUMIN (test code=ALB) 3.30 g/dL 3.4-5.0 BILIRUBIN TOTAL (test code=BILT) 0.50 mg/dL 0.0-1.0 BILIRUBIN DIRECT (test code=BILD) < 0.10 MG/DL 0.0-0.30 BILIRUBIN INDIRECT (test code=BILIND) 0.40 MG/DL SGOT/AST (test code=AST) 22 IUnit/L 15-37 SGPT/ALT (test code=ALT) 33 IUnit/L 15-65 ALKALINE PHOSPHATASE TOTAL (test code=ALKP) 127 IUnit/L 20-125 [id number] 21:44:00* Test Item Value Reference Range Comments LIPASE (test code=LIP) 96 IUnit/L 73-393 [id number] 21:44:00* Test Item Value Reference Range Comments MAGNESIUM (test code=MAG) 2.00 mg/dL 1.8-2.4 THYROID STIMULATING [id number] 21:44:00* Test Item Value Reference Range Comments THYROID STIMULATING HORMONE (test code=TSH) 0.42-5.47 [id number] 21:44:00* Test Item Value Reference Range Comments TROPONIN-I (test code=TROPI) < 0.015 ng/mL 0.000-0.045 Negative: <=0.045 Positive: >=0.046 Correlation with serial results, other cardiac markers andclinical findings is necessary to determine the clinicalsignificance of this result. Results using different methodologies should not be comparedto one another as quantitative results may vary by method. PROTHROMBIN [id number] 21:39:00* Test Item Value Reference Range Comments PROTHROMBIN TIME PATIENT (test code=PTP) 13.6 SECONDS 9.3-12.9 INTERNATIONAL NORMAL RATIO (test code=INR) 1.2 0.8-1.2 TARGET INR BY INDICATION Indication INR1. Prophylaxis of venous thrombosis 2.0 - 3.0 (orthopedic surgery), Prophylaxis of venous thrombosis (other than high-risk surgery), Treatment of Deep Vein Thrombosis/Pulmonary Embolism, Prevention of systemic embolism - Tissue heart valves, Acute Myocardial Infarction (to prevent systemic embolism), Valvular heart disease, Atrial Fibrillation, Bileaflet mechanical valve in aortic position.2. Mechanical prosthetic valves (high risk), 2.5 - 3.5 Presence of Lupus Anticoagulant or Antiphospholipid Antibodies, Prevention of systemic embolism - Acute Myocardial Infarction (to prevent recurrent infarct). THROMBOPLASTIN TIME [id number] 21:39:00* Test Item Value Reference Range Comments THROMBOPLASTIN TIME PARTIAL (test code=PTT) 39.6 Seconds 25.0-39.5 Therapeutic Range: 50.4 - 88.3 Seconds Effective 06/03/2018 CBC W/AUTO [id number] 21:32:00* Test Item Value Reference Range Comments WHITE BLOOD CELL (test code=WBC) 7.85 x10 3/uL 4.5-11.0 RED BLOOD CELL (test code=RBC) 4.15 x10 6/uL 4.00-5.60 HEMOGLOBIN (test code=HGB) 13.2 g/dL 12.5-16.9 HEMATOCRIT (test code=HCT) 36.6 % 37.5-50.7 MEAN CELL VOLUME (test code=MCV) 88.2 fL 81.0-99.0 MEAN CELL HGB (test code=MCH) 31.8 pg 27.0-33.0 MEAN CELL HGB CONCETRATION (test code=MCHC) 36.1 g/dL 33.0-37.0 RED CELL DISTRIBUTION WIDTH CV (test code=RDW) 15.0 % 11.5-14.5 RED CELL DISTRIBUTION WIDTH SD (test code=RDW-SD) 48.0 fL 37.0-54.0 PLATELET COUNT (test code=PLT) 213 x10 3/uL 150-400 MEAN PLATELET VOLUME (test code=MPV) 10.0 fL 7.0-9.0 NEUTROPHIL % (test code=NT%) 51.9 % 56.0-77.0 IMMATURE GRANULOCYTE % (test code=IG%) 1.3 % 0.0-2.0 LYMPHOCYTE % (test code=LY%) 37.7 % 14.0-32.0 MONOCYTE % (test code=MO%) 7.1 % 4.8-9.0 EOSINOPHIL % (test code=EO%) 1.5 % 0.3-3.7 BASOPHIL % (test code=BA%) 0.5 % 0.0-2.0 NUCLEATED RBC % (test code=NRBC%) 0.0 % 0-0 NEUTROPHIL # (test code=NT#) 4.07 x10 3/uL 2.0-7.6 IMMATURE GRANULOCYTE # (test code=IG#) 0.10 x10 3/uL 0.00-0.03 LYMPHOCYTE # (test code=LY#) 2.96 x10 3/uL 1.0-3.8 MONOCYTE # (test code=MO#) 0.56 x10 3/uL 0.1-0.8 EOSINOPHIL # (test code=EO#) 0.12 x10 3/uL 0.0-0.2 BASOPHIL # (test code=BA#) 0.04 x10 3/uL 0.0-0.2 NUCLEATED RBC # (test code=NRBC#) 0.00 x10 3/uL 0.0-0.1 MANUAL DIFF REQUIRED (test code=MDIFF) NO TROPONIN-I [id number] 23:49:00* Test Item Value Reference Range Comments TROPONIN-I RAPID (test code=TROPIRAP) 0.00 ng/mL 0.00-0.08 Performed by certified roper operator at [facility] Negative: <=0.08 Positive: >=0.09An elevated troponin value alone is not sufficient todiagnose a myocardial infarction. Rather, the patient sclinical presentation (history, physical exam) and ECGshould be used in conjunction with troponin in thediagnostic evaluation of suspected myocardial infarction. Aserial sampling protocol is recommended to facilitate the identification of temporal changes in troponin levels characteristic of AR. - XR CHEST 1 [id number] 22:47:00 FAX: Rodney Dubon MD [phone] [place]: St: [facility] FAX: Blake Cazares MD [phone] Name: ARANZA WHITNEY [facility] : 1970 Age/S: 48/M [address] [place] [address] Blvd Unit #: [id number] Loc: [place] [address] Phys: Rodney Dubon MD Acct: [id number] Dis Date: Status: REG ER PHONE #: [phone] Exam Date: 07/22/20182242 FAX #: [phone] Reason: Chest Pain EXAMS: CPT CODE: [id number] XR CHEST 1 V 90118 PROCEDURE: CHEST SINGLE VIEW INDICATION: Chest pain COMPARISON: Multiple priors, most recent 06/12/2018 FINDINGS: Previous median sternotomy. The cardiomediastinal silhouette is stable, normal for projection. The pulmonary vasculature is indistinct. Hazy perihilar opacities bilateral, similar in appearance. No consolidation. No pleural abnormality. No acute skeletal abnormality. IMPRESSION: Indistinct perihilar opacities, similar in appearance. Interstitial edema, inflammation and chronic processes are in the differential. Chest CTA performed concurrent with this exam. The reader is referred to results of that study. SL: VERENICE at 2247 Reported and signed by: Gonzalo Cespedes M.D. CC: Rodney Dubon MD; Blake Cruz M.D. Technologist: RT Kaylyn(Saritha) Trnscrd Date/Time/By: 07/22/2018 (4343) : By: Aimee Orig Print D/T: S: 07/22/2018 (3603) PAGE 1 Signed Report - CT ANGIO [id number] 22:46:00 Name: ARANZA WHITNEY [facility] : 1970 Age/S: 48 / M [address] [place] [address] Blvd Unit #: [id number] Loc: [place] [address] Phys: Rodney Dubon MD Acct: [id number] Dis Date: Status: REG ER PHONE #: [phone] Exam Date: 07/22/20182210 FAX #: [phone] Reason: Chest Pain EXAMS: CPT CODE: [id number] CT ANGIO CHEST 03734 PROCEDURE: CTA CHEST INDICATION: Chest pain. History of lymphoma. COMPARISON: 06/05/2018, 05/03/2017, 02/05/2016 TECHNIQUE: CTA of the pulmonary arteries was performed with 100 ml Isovue 300 intravenous contrast. Multiplanar and 3-D MIP angiographic reconstructions are reviewed. CT imaging performed at this location utilizes radiation dose optimization techniques which include one or more of the following: -Automated exposure control -Adjustment of the mA and/or kV according to patient size -Use of iterative reconstruction technique CT Radiation Dose DLP 498.68 mGy-cm FINDINGS: PULMONARY ARTERIES: Enhancement of the pulmonary arteries is technically suboptimal. No central emboli demonstrated. Sensitivity for segmental and subsegmental disease is limited. No discrete intraluminal filling defect demonstrated. MEDIASTINUM: Right hilar node 17 mm thickness, stable. No mediastinal adenopathy by size criteria. No mediastinal fluid collection. The esophagus is unremarkable. HEART: Left ventricular hypertrophy. No pericardial effusion. Coronary arterial calcification. VASCULAR STRUCTURES: Postoperative changes of surgical repair of the ascending aorta. Scattered calcified plaque. No aneurysm, dissection or other acute abnormality. LUNGS: Motion limited assessment. Scattered calcified granulomata left lung. Indistinct groundglass opacities perihilar regions. Groundglass opacities in the paramediastinal right upper and middle lobes with partial volume loss, stable in appearance. Stable subpleural 5 mm nodule lateral segment right middle lobe. No consolidation. No pleural abnormality. UPPER ABDOMEN: Survey of viscera may be limited by early phase of contrast enhancement. Diminished attenuation of the visualized liver without gross mass. The spleen is enlarged approximate 16.1 cm in length. Multiple periportal and gastrohepatic ligament nodes measuring up to 1.6 cm short axis, grossly stable. PAGE 1 Signed Report (CONTINUED) Name: ARANZA WHITNEY [facility] tarik Coronel : 1970 Age/S: 48 / M [address] [place] [address] Blvd Unit #: [id number] Loc: [place] [address] Phys: Rodney Dubon MD Acct: [id number] Dis Date: Status: REG ER PHONE #: [phone] Exam Date: 07/22/20182210 FAX #: [phone] Reason: Chest Pain EXAMS: CPT CODE: [id number] CT ANGIO CHEST 89055 < Continued> MUSCULOSKELETAL: Bilateral gynecomastia. Healed median sternotomy. No acute skeletal abnormality. IMPRESSION: 1. Technically suboptimal CTA of the pulmonary arteries without central emboli demonstrated. 2. Stable postoperative appearance of the thoracic aorta. Negative for aneurysm or dissection. 3. Mild groundglass opacities in the central lung zones are similar in distribution and may reflect a combination of chronic post therapy change, edema and inflammation. Other chronic pulmonary opacities are stable. 4. Stable right hilar node, upper abdominal lymphadenopathy. 5. Stable splenomegaly. 6. Hepatic steatosis. SL: KL-H at 2246 Reported and signed by: Gonzalo Cespedes M.D. CC: Rodney Dubon MD; Blake Cruz M.D. Technologist:RT Itz(R) CTDI: DLP: Trnscb Date/Time: 07/22/2018 (2245) Aimee Orig Print D/T: S: 07/22/2018 (7058) PAGE 2 Signed Report B- TYPE NATRIURETIC [id number] 22:28:00* Test Item Value Reference Range Comments B-TYPE NATRIURETIC PEPTIDE (test code=BNP) 16.6 PG/ML 0-100 - DUP VEIN [id number] 22:18:00 Name: ARANZA WHITNEY [facility] : 1970 Age/S: 48 / M [address] [place] [address] Blvd Unit #: [id number] Loc: [place] [address] Phys: Rodney Dubon MD Acct: [id number] Dis Date: Status: REG ER PHONE #: [phone] Exam Date: 07/22/20182207 FAX #: [phone] Reason: BLE swelling, worse on L, r/o DVT EXAMS: CPT CODE: [id number] DUP VEIN RUBEN 18956 PROCEDURE: BILATERAL LOWER EXTREMITY VENOUS ULTRASOUND INDICATION: Bilateral lower extremity edema. COMPARISON: None. TECHNIQUE: Sonographic evaluation of the bilateral lower extremity veins was performed using high resolution B-mode, pulse and color Doppler imaging. FINDINGS: Limitations: Examination is noted to be technically challenging secondary to patient body habitus. All segments are demonstrated to reasonable advantage with normal filling of the vessel lumen by color Doppler and normal venous waveforms. RIGHT: The common femoral, femoral, popliteal and visualized calf veins are patent. Normal venous waveforms. The saphenofemoral junction is unremarkable. Subcutaneous edema without focal fluid collection. LEFT: The common femoral, femoral, popliteal and visualized calf veins are patent. Normal venous waveforms. The saphenofemoral junction is unremarkable. Subcutaneous edema without focal fluid collection. IMPRESSION: No deep venous thrombosis. SL: KL-H at 2218 Reported and signed by: Gonzalo Cespedes M.D. CC: Rodney Dubon MD; Blake Cruz M.D. Technologist: Harmony Wylie RDMS(A)(OB) Trnscb Date/Time: 07/22/2018 (2217) Aimee Orig Print D/T: S: 07/22/2018 (222) Probe: PAGE 1 Signed Report CBC W/AUTO [id number] 22:02:00* Test Item Value Reference Range Comments WHITE BLOOD CELL (test code=WBC) 5.38 x10 3/uL 4.5-11.0 RED BLOOD CELL (test code=RBC) 4.36 x10 6/uL 4.00-5.60 HEMOGLOBIN (test code=HGB) 13.4 g/dL 12.5-16.9 HEMATOCRIT (test code=HCT) 39.1 % 37.5-50.7 MEAN CELL VOLUME (test code=MCV) 89.7 fL 81.0-99.0 MEAN CELL HGB (test code=MCH) 30.7 pg 27.0-33.0 MEAN CELL HGB CONCETRATION (test code=MCHC) 34.3 g/dL 33.0-37.0 RED CELL DISTRIBUTION WIDTH CV (test code=RDW) 15.1 % 11.5-14.5 RED CELL DISTRIBUTION WIDTH SD (test code=RDW-SD) 49.1 fL 37.0-54.0 PLATELET COUNT (test code=PLT) 203 x10 3/uL 150-400 MEAN PLATELET VOLUME (test code=MPV) 10.0 fL 7.0-9.0 NEUTROPHIL % (test code=NT%) 53.7 % 56.0-77.0 IMMATURE GRANULOCYTE % (test code=IG%) 1.5 % 0.0-2.0 LYMPHOCYTE % (test code=LY%) 34.6 % 14.0-32.0 MONOCYTE % (test code=MO%) 7.4 % 4.8-9.0 EOSINOPHIL % (test code=EO%) 2.2 % 0.3-3.7 BASOPHIL % (test code=BA%) 0.6 % 0.0-2.0 NUCLEATED RBC % (test code=NRBC%) 0.0 % 0-0 NEUTROPHIL # (test code=NT#) 2.89 x10 3/uL 2.0-7.6 IMMATURE GRANULOCYTE # (test code=IG#) 0.08 x10 3/uL 0.00-0.03 LYMPHOCYTE # (test code=LY#) 1.86 x10 3/uL 1.0-3.8 MONOCYTE # (test code=MO#) 0.40 x10 3/uL 0.1-0.8 EOSINOPHIL # (test code=EO#) 0.12 x10 3/uL 0.0-0.2 BASOPHIL # (test code=BA#) 0.03 x10 3/uL 0.0-0.2 NUCLEATED RBC # (test code=NRBC#) 0.00 x10 3/uL 0.0-0.1 MANUAL DIFF REQUIRED (test code=MDIFF) NO TROPONIN-I [id number] 21:58:00* Test Item Value Reference Range Comments TROPONIN-I RAPID (test code=TROPIRAP) 0.00 ng/mL 0.00-0.08 Performed by certified roper operator at [facility] Negative: <=0.08 Positive: >=0.09An elevated troponin value alone is not sufficient todiagnose a myocardial infarction. Rather, the patient sclinical presentation (history, physical exam) and ECGshould be used in conjunction with troponin in thediagnostic evaluation of suspected myocardial infarction. Aserial sampling protocol is recommended to facilitate the identification of temporal changes in troponin levels characteristic of AR. CHEMISTRY 8 [id number] 21:51:00* Test Item Value Reference Range Comments ISTAT-SODIUM (test code=NAP) MMOL/L 134-147 ISTAT-POTASSIUM (test code=KP) MMOL/L 3.4-5.0 ISTAT-CHLORIDE (test code=CLP) MMOL/L 100-108 ISTAT CARBON DIOXIDE (test code=ISTAT-CO2) mmol/L 21-33 ISTAT CALCIUM IONIZED (test code=ISTAT-KAREEM) MG/DL 1.12-1.32 ISTAT-GLUCOSE (test code=GLUP) MG/DL 70-110 ISTAT-BUN (test code=BUNP) MG/DL 7-18 BEDSIDE CREATININE (test code=CREATBED) MG/DL 0.6-1.3 GLOMERULAR FILTRATION RATE POC (test code=GFRBED) 69 ML/MIN CHEMISTRY 8 [id number] 21:51:00* Test Item Value Reference Range Comments ISTAT-SODIUM (test code=NAP) 138 MMOL/L 134-147 ISTAT-POTASSIUM (test code=KP) 3.6 MMOL/L 3.4-5.0 ISTAT-CHLORIDE (test code=CLP) 97 MMOL/L 100-108 Performed by certified roper operator at [facility] ISTAT CARBON DIOXIDE (test code=ISTAT-CO2) 27.0 mmol/L 21-33 ISTAT CALCIUM IONIZED (test code=ISTAT-KAREEM) 1.11 MG/DL 1.12-1.32 ISTAT-GLUCOSE (test code=GLUP) 295 MG/DL 70-110 ISTAT-BUN (test code=BUNP) 20 MG/DL 7-18 BEDSIDE CREATININE (test code=CREATBED) 1.2 MG/DL 0.6-1.3 GLOMERULAR FILTRATION RATE POC (test code=GFRBED) 69 ML/MIN [id number] 10:56:00* Test Item Value Reference Range Comments TROPONIN-I (test code=TROPI) <0.015 ng/mL 0-0.045 COMMENTS TO SPECIAL ORDER JEWELER: COLLECT 3 HOURS AFTER PREVIOUS [id number] 04:30:00* Test Item Value Reference Range Comments TROPONIN-I (test code=TROPI) <0.015 ng/mL 0-0.045 COMMENTS TO SPECIAL ORDER JEWELER: COLLECT 3 HOURS AFTER PREVIOUS SAMPLE- CT UP EXTREM W/O CONT [id number] 02:33:00 Name: ARANZA WHITNEY [facility] : 1970 Age/S: 48 / M [address] [facility] Unit #: [id number] Loc: [place] [address] Phys: Jan Ly MD Acct: [id number] Dis Date: Status: ADM IN PHONE #: [phone] Exam Date: 06/13/2018 0135 FAX #: [phone] Reason: R elbow pain and abnormal xray EXAMS: CPT CODE: [id number] [place] EXTREM W/[place] [address] R16 EXAM: - CT UP EXTREM W/O CONT RT HISTORY: R elbow pain and abnormal xray TECHNIQUE: Axial CT images were obtained through the right elbow and displayed in bone and soft tissue windows. Coronal and sagittal reformatted images were created from the data set. COMPARISON: Right elbow 3 views 06/12/2018 FINDINGS: No acute fracture or dislocation. The joint spaces are preserved. A small olecranon enthe sophyte is again noted. No aggressive osseous lesions. Marked soft tissue swelling overlying the olecranon IMPRESSION: No acute o sseous abnormality. Marked soft tissue swelling in the region of the ole cranon bursa. at 0233 Reported and signed by: Fausto Christy MD CC: Jan Ly MD; Blake Cruz MD Technologi st:DEXTER STERLING CT CTDI: DLP: Trnscb Date/Time: (232) [email or web address] Orig Print D/T: S: 06/13/2018 ( 023) CTDI: DLP: PAGE 1 Signed Re port BASIC METABOLIC [id number] 00:31:00* Test Item Value Reference Range Comments SODIUM (test code=NA) 139 mmol/L 136-145 POTASSIUM (test code=K) 2.9 mmol/L 3.5-5.1 Results called to [id number] by [email or web address] 06/13/18 0030Critical results verified and read back by Nurse? Y CHLORIDE (test code=CL) 102.0 mmol/L 98-107 CARBON DIOXIDE (test code=CO2) 28.0 mmol/L 21-32 ANION GAP (test code=GAP) 11.9 10-20 GLUCOSE (test code=GLU) 201 mg/dL 74-106 BLOOD UREA NITROGEN (test code=BUN) 14 mg/dL 7-18 GLOMERULAR FILTRATION RATE (test code=GFR) > 60 mL/min >=60 Estimated GFR by using Modified MDRD formula.Chronic kidney disease is defined as either kidney damageor GFR <60 mL/min/1.73 m2 for >3 months. CREATININE (test code=CREAT) 1.20 mg/dL 0.7-1.3 BUN/CREATININE RATIO (test code=BUN/CREA) 11.7 10-20 CALCIUM (test code=CA) 8.6 mg/dL 8.5-10.1 [id number] 00:31:00* Test Item Value Reference Range Comments TROPONIN-I (test code=TROPI) <0.015 ng/mL 0-0.045 B-TYPE NATRIURETIC [id number] 00:31:00* Test Item Value Reference Range Comments B-TYPE NATRIURETIC PEPTIDE (test code=BNP) 32.04 pgram/mL 0-100 PROTHROMBIN [id number] 00:13:00* Test Item Value Reference Range Comments PROTHROMBIN TIME PATIENT (test code=PTP) 12.0 seconds 9.0-14.0 INTERNATIONAL NORMAL RATIO (test code=INR) 1.0 0.8-1.2 The therapeutic range for oral anticoagulant therapy formost indications is an international normalized ratio (INR)of between 2.0 and 3.0. The recommended therapeutic INRrange for various clinical situations is listed below: Clinical Situation INR range Pulmonary e mbolism treatment (2.0-3.0)Venous thrombosis treatmentVenous thrombosis prophylaxis (high risk surgery)Prevention of systemic embolism from: Acute myocardial infarction Valvular heart disease Atrial fibrillation Mechanical prosthetic heart valves (2.5-3.5) IS PATIENT ON ANTICOAGULANTS? NTHROMBOPLASTIN TIME [id number] 00:13:00* Test Item Value Reference Range Comments THROMBOPLASTIN TIME PARTIAL (test code=PTT) 37.3 seconds 25.0-36.5 IS PATIENT ON ANTICOAGULANTS? [id number] 00:13:00* Test Item Value Reference Range Comments D-DIMER (test code=DDIMER) 454.00 ng/mLFEU 0-500 Clinical Cut-off value for D- Dimer is 500 ng/mL FEU. Comment: The [employer] D-Dimer assay is intended for use asan aid in the diagnosis of venous thromboembolism (VTE)[deep vein thrombosis (DVT) or pulmonary embolism (PE)].The measurement of D-Dimer should not be used as an aid inthe diagnosis of VTE, in patient with: -Therapeutic dose anticoagulant therapy for >24 hours -Fibrinolytic therapy within previous 7 days -Trauma or surgery within previous 4 weeks -Disseminated malignancies - Aortic aneurysm -Sepsis, severe infections, pneumonia, severe skin infections -Liver cirrhosis - IS PATIENT ON ANTICOAGULANTS? NCBC W/O [id number] 23:56:00* Test Item Value Reference Range Comments WHITE BLOOD CELL (test code=WBC) 8.3 K/mm3 4.5-12.5 RED BLOOD CELL (test code=RBC) 4.26 mill/mm3 4.0-5.8 HEMOGLOBIN (test code=HGB) 12.6 gram/dL 13.0-17.5 HEMATOCRIT (test code=HCT) 38.9 % 42.0-52.0 MEAN CELL VOLUME (test code=MCV) 91.3 fL 80-98 MEAN CELL HGB (test code=MCH) 29.6 picogram 27.0-33.0 MEAN CELL HGB CONCETRATION (test code=MCHC) 32.4 gram/dL 33.0-36.0 RED CELL DISTRIBUTION WIDTH (test code=RDW) 14.0 % 11.6-16.2 PLATELET COUNT (test code=PLT) 175 K/mm3 150-450 MEAN PLATELET VOLUME (test code=MPV) 9.8 fL 6.7-11.0 - XR ELBOW 3 + V [id number] 23:50:00 FAX: Jan Ly MD [phone] [place]: [facility]: [facility] FAX: Blake Cazares MD [phone] Name: ARANZA WHITNEY [facility] : 1970 Age/S: 48/M [address] [facility] Unit #: [id number] Loc: [place] [address] Phys: Jan Ly MD Acct: [id number] Dis Date: Status: REG ER PHONE #: [phone] Exam Date: 06/12/2018 2334 FAX #: [phone] Reason: elbow pain EXAMS: CPT CODE: [id number] XR ELBOW 3 + V RT 30598 - XR ELBOW 3 + V RT, 06/12/2018 11:06 PM Reason For Examination: elbow pain Comparison: May 10, 2018 Location: R16: Findings: There appears to be a new lucency through the patient's olecranon enthesophyte suggestive of possibl e enthesophyte fracture. No posterior joint effusion is seen. There is a questionable linear lucency seen through the lateral supracondylar region which is seen on single view only and may reflect superimposition of shad ow Impression: There appears to be a new lucen cy through the patient's olecranon enthesophyte suggestive of possible e nthesophyte fracture. No posterior joint effusion is seen. There is a questionable linear lucency seen through the lateral supracondylar regio n which is seen on single view only and may reflect superimposition of s hadow at 3889 Reported and signed by: Ana Paula Seaman M.D. CC: Jan Ly MD; Blake Cruz MD Technologist: RT CELESTINE Trnscrd Date/Time/By: 06/12/2018 (2723) : By: [email or web address] Orig Print D/T: S: 06/12/2018 (6853) PAGE 1 Signed Report - CT HEAD/BRAIN W/O [id number] 23:45:00 Name: ARANZA WHITNEY [facility] : 1970 Age/S: 48 / M [address] [facility] Unit #: [id number] Loc: [place] [address] Phys: Jan Ly MD Acct: [id number] Dis Date: Status: REG ER PHONE #: [phone] Exam Date: 06/12/2018 2334 FAX #: [phone] Reason: Syncope EXAMS: CPT CODE: [id number] CT HEAD/BRAIN W/O CONT 20413 Exam: CT of the brain without contrast. History: Syncope Technique: Contiguous axial CT images were obtained from the skull base through the vertex without contrast. One or more of the following dose reduction techniques were used: Automated exposure control, adjustment of the mA and/or kV according to patient size, and/or utilization of iterative reconstruction technique. Comparison: Exam March 27, 2018 Location: R16 Findings: Please note that this examination is very limited at the vertex is excluded from ldtmw-ix-lecy (the exam terminates prematurely and portion of the brain is excluded) The ventricles and sulci are normal in size and symmetric. The basal cisterns are patent. There is no mass effect or midline shift. There is no acute intracranial hemorrhage. There are no extra-axial fluid collections. No posterior circulation calcifications are noted Paranasal sinuses and mastoid air cells are clear. Impression: Please note that this examination is very limited at the vertex is excluded from letja-sh-dbsc (the exam terminates prematurely and portion of the brain is excluded) No CT evidence of an acute intracranial hemorrhage or significant mass effect is visualized. A repeat evaluation to include the entirety of the brain would be beneficial when the patient able to hold still. E lectronically Signed by Ana Paula Seaman M.D. on 06/12/2018 at 1073 Reported and signed by: Ana Paula Seaman M.D. CC: Jan Ly MD; Blake Cruz MD Technologist:DEXTER STERLING CT CTDI: DLP: T rnscb Date/Time: 06/12/2018 (8963) [email or web address] Orig Print D /T: S: 06/12/2018 (3248) CTDI: DLP: PAGE 1 Signed Report - XR CHEST 1 [id number] 23:39:00 FAX: Jan Ly MD [phone] [place]: [address]: [facility] FAX: Blake Cazares MD [phone] Name: ARANZA WHITNEY [facility] : 1970 Age/S: 48/M [address] [facility] Unit #: [id number] Loc: [place] [address] Phys: Jan Ly MD Acct: [id number] Dis Date: Status: REG ER PHONE #: [phone] Exam Date: 06/12/20184 FAX #: [phone] Reason: SYNCOPE EXAMS: CPT CODE: [id number] XR CHEST 1 V 16898 - XR CHEST 1 V, 06/12/2018 11:06 PM Reason For Examination: SYNCOPE Comparison: None available Location: R16 Findings LUNGS: Low lung volumes limit evaluation. Likely vascular congestion/mild edema PLEURA: No pleural effusions CARDIOMEDIASTINAL SILHOUETTE Mild enlargement IMPRESSION: Low lung volumes limit evaluation. Likely vascular congestion/mild edema and enlargement of the cardiac silhouette at 3171 Reported and signed by: Ana Paula Seaman M.D. CC: Jan Ly MD; Blake Cruz MD Technologist: Chyna Antunez Trnscrd Date/Time/By: 06/12/2018 (2338) : By: [email or web address] Orig Print D/T: S: 06/12/2018 (2290) PAGE 1 Signed Report GLUBED 2018-06-06 11:29:00* Test Item Value Reference Range Comments GLUBED (test code=GLUBED) 199 mg/dL 74-106 Performed by certified roper operator at [facility] [id number] 07:55:00* Test Item Value Reference Range Comments TROPONIN-I (test code=TROPI) 0.035 ng/mL 0-0.045 COMMENTS TO SPECIAL ORDER JEWELER: COLLECT 3 HOURS AFTER PREVIOUS [id number] 07:27:00* Test Item Value Reference Range Comments GLUBED (test code=GLUBED) 233 mg/dL 74-106 Performed by certified roper operator at [facility] [id number] 05:55:00* Test Item Value Reference Range Comments TROPONIN-I (test code=TROPI) 0.062 ng/mL 0-0.045 Results called to [id number] by [email or web address] 06/06/18 0554Critical results verified and read back by Nurse? Y COMMENTS TO SPECIAL ORDER JEWELER: COLLECT 3 HOURS AFTER PREVIOUS SAMPLEBASIC METABOLIC [id number] 05:28:00* Test Item Value Reference Range Comments SODIUM (test code=NA) 138 mmol/L 136-145 POTASSIUM (test code=K) 3.6 mmol/L 3.5-5.1 CHLORIDE (test code=CL) 100.0 mmol/L 98-107 CARBON DIOXIDE (test code=CO2) 29.0 mmol/L 21-32 ANION GAP (test code=GAP) 12.6 10-20 GLUCOSE (test code=GLU) 272 mg/dL 74-106 BLOOD UREA NITROGEN (test code=BUN) 15 mg/dL 7-18 GLOMERULAR FILTRATION RATE (test code=GFR) 54 mL/min >=60 Estimated GFR by using Modified MDRD formula.Chronic kidney disease is defined as either kidney damageor GFR <60 mL/min/1.73 m2 for >3 months. CREATININE (test code=CREAT) 1.40 mg/dL 0.7-1.3 BUN/CREATININE RATIO (test code=BUN/CREA) 10.7 10-20 CALCIUM (test code=CA) 8.2 mg/dL 8.5-10.1 BASIC METABOLIC [id number] 05:25:00* Test Item Value Reference Range Comments SODIUM (test code=NA) 138 mmol/L 136-145 POTASSIUM (test code=K) 3.6 mmol/L 3.5-5.1 CHLORIDE (test code=CL) 100.0 mmol/L 98-107 CARBON DIOXIDE (test code=CO2) mmol/L 21-32 ANION GAP (test code=GAP) 10-20 GLUCOSE (test code=GLU) mg/dL 74-106 BLOOD UREA NITROGEN (test code=BUN) mg/dL 7-18 GLOMERULAR FILTRATION RATE (test code=GFR) mL/min >=60 CREATININE (test code=CREAT) mg/dL 0.7-1.3 BUN/CREATININE RATIO (test code=BUN/CREA) 10-20 CALCIUM (test code=CA) mg/dL 8.5-10.1 [id number] 03:06:00* Test Item Value Reference Range Comments GLUBED (test code=GLUBED) 298 mg/dL 74-106 Performed by certified roper operator at [facility] [id number] 01:47:00* Test Item Value Reference Range Comments GLUBED (test code=GLUBED) 302 mg/dL 74-106 Performed by certified roper operator at [facility] - CTA [id number] 22:28:00 Name: ARANZA WHITNEY [facility] : 1970 Age/S: 48 / M [facility]rie [facility]nelly Unit #: [id number] Loc: [place] [address] Phys: STIVEN VASQUEZ MD Acct: [id number] Dis Date: Status: REG ER PHONE #: [phone] Exam Date: 06/05/20182219 FAX #: [phone] Reason: chest pain, prior PE, prior aortic dissection s EXAMS: CPT CODE: [id number] CTA CHEST 75770 REASON FOR EXAM: chest pain, prior PE, prior aortic dissection s/p repair EXAM ORDER DATE: 06/05/2018 9:41 PM Ordering M.D.: STIVEN VASQUEZ MD PROCEDURE: - CTA CHEST FINDINGS: CT images of the chest were obtained with IV contrast using PE protocol. Reconstructed sagittal and coronal images including 3D reconstructions of the chest were provided for interpretation. Dose reduction techniques were applied. Intravenous contrast: 100cc of Omnipaque 370. The heart size is minimally enlarged. No evidence of pericardial effusion The thoracic aorta is unremarkable. No evidence of dissection or aneurysmal dilatation. No filling defect seen within the main or lobar pulmonary arteries to suggest pulmonary embolus No evidence of mediastinal or hilar adenopathy No evidence of pleural effusion IMPRESSION: Limited exam due to suboptimal opacification of the pulmonary arteries and of the aorta. Hypoaerated lungs with atelectasis at the bases. No evidence of pulmonary embolus. No evidence of aortic dissection. at 2228 Reported and signed by: Alvin Barber M.D. CC: Blake Cruz MD; STIVEN VASQUEZ MD Technologist:Cb Dhaliwal RT(R)(CT); . CTDI: DLP: Trnscb Date/Time: 06/05/2018 (2227) [email or web address].MILINDR.VTL Orig Print D/T: S: 06/05/2018 (223) CTDI: DLP: PAGE 1 Signed Report PROTHROMBIN [id number] 21:47:00* Test Item Value Reference Range Comments PROTHROMBIN TIME PATIENT (test code=PTP) 11.9 seconds 9.0-14.0 INTERNATIONAL NORMAL RATIO (test code=INR) 1.0 0.8-1.2 The therapeutic range for oral anticoagulant therapy formost indications is an international normalized ratio (INR)of between 2.0 and 3.0. The recommended therapeutic INRrange for various clinical situations is listed below: Clinical Situation INR range Pulmonary e mbolism treatment (2.0-3.0)Venous thrombosis treatmentVenous thrombosis prophylaxis (high risk surgery)Prevention of systemic embolism from: Acute myocardial infarction Valvular heart disease Atrial fibrillation Mechanical prosthetic heart valves (2.5-3.5) IS PATIENT ON ANTICOAGULANTS? NTHROMBOPLASTIN TIME [id number] 21:47:00* Test Item Value Reference Range Comments THROMBOPLASTIN TIME PARTIAL (test code=PTT) 36.8 seconds 25.0-36.5 IS PATIENT ON ANTICOAGULANTS? NBASIC METABOLIC [id number] 21:46:00* Test Item Value Reference Range Comments SODIUM (test code=NA) 138 mmol/L 136-145 POTASSIUM (test code=K) 2.9 mmol/L 3.5-5.1 Results called to [id number] by [email or web address] 06/05/18 2146Critical results verified and read back by Nurse? Y CHLORIDE (test code=CL) 100.0 mmol/L 98-107 CARBON DIOXIDE (test code=CO2) 27.0 mmol/L 21-32 ANION GAP (test code=GAP) 13.9 10-20 GLUCOSE (test code=GLU) 303 mg/dL 74-106 BLOOD UREA NITROGEN (test code=BUN) 16 mg/dL 7-18 GLOMERULAR FILTRATION RATE (test code=GFR) 40 mL/min >=60 Estimated GFR by using Modified MDRD formula.Chronic kidney disease is defined as either kidney damageor GFR <60 mL/min/1.73 m2 for >3 months. CREATININE (test code=CREAT) 1.80 mg/dL 0.7-1.3 BUN/CREATININE RATIO (test code=BUN/CREA) 8.9 10-20 CALCIUM (test code=CA) 8.6 mg/dL 8.5-10.1 [id number] 21:46:00* Test Item Value Reference Range Comments MAGNESIUM (test code=MAG) 1.5 mg/dL 1.8-2.4 [id number] 21:46:00* Test Item Value Reference Range Comments TROPONIN-I (test code=TROPI) <0.015 ng/mL 0-0.045 CBC W/O [id number] 21:25:00* Test Item Value Reference Range Comments WHITE BLOOD CELL (test code=WBC) 6.9 K/mm3 4.5-12.5 RED BLOOD CELL (test code=RBC) 4.42 mill/mm3 4.0-5.8 HEMOGLOBIN (test code=HGB) 13.5 gram/dL 13.0-17.5 HEMATOCRIT (test code=HCT) 39.7 % 42.0-52.0 MEAN CELL VOLUME (test code=MCV) 89.8 fL 80-98 MEAN CELL HGB (test code=MCH) 30.5 picogram 27.0-33.0 MEAN CELL HGB CONCETRATION (test code=MCHC) 34.0 gram/dL 33.0-36.0 RED CELL DISTRIBUTION WIDTH (test code=RDW) 13.7 % 11.6-16.2 PLATELET COUNT (test code=PLT) 164 K/mm3 150-450 MEAN PLATELET VOLUME (test code=MPV) 9.6 fL 6.7-11.0 - XR CHEST 1 [id number] 21:25:00 FAX: Blake Cazares MD [phone] [place]: B St: [facility] FAX: STIVEN VASQUEZ MD Name: ARANZA WHITNEY [facility] : 1970 Age/S: 48/M [address] Unit #: [id number] Loc: [place] [address] Phys: STIVEN VASQUEZ MD Acct: [id number] Dis Date: Status: REG ER PHONE #: [phone] Exam Date: 06/05/20182117 FAX #: [phone] Reason: CHEST PAIN EXAMS: CPT CODE: [id number] XR CHEST 1 V 29390 REASON FOR EXAM: CHEST PAIN EXAM ORDER DATE: 06/05/2018 8:56 PM Ordering MCelena: STIVEN VASQUEZ MD PROCEDURE: - XR CHEST 1 V COMPARISON: 05/10/2018 FINDINGS: Portable AP frontal view of the chest obtained at 9:16 PM shows diffuse airspace opacity. There is no evidence of effusion. The heart size is minimally enlarged. Pulmonary vasculatures are mildly congested. IMPRESSION: Congestive heart failure with pulmonary edema at 2125 Reported and signed by: Alvin Barber M.D. CC: Blake Cruz MD; STIVEN VASQUEZ MD Technologist: DEACON RITCHIE Trnscrd Date/Time/By: 06/05/2018 (2124) : By: nilson CHILDERSVTL Orig Print D/T: S: 06/05/2018 (2127) PAGE 1 Signed Report CBC W/O [id number] 21:23:00* Test Item Value Reference Range Comments WHITE BLOOD CELL (test code=WBC) K/mm3 4.5-12.5 RED BLOOD CELL (test code=RBC) mill/mm3 4.0-5.8 HEMOGLOBIN (test code=HGB) 13.5 gram/dL 13.0-17.5 HEMATOCRIT (test code=HCT) % 42.0-52.0 MEAN CELL VOLUME (test code=MCV) fL 80-98 MEAN CELL HGB (test code=MCH) picogram 27.0-33.0 MEAN CELL HGB CONCETRATION (test code=MCHC) gram/dL 33.0-36.0 RED CELL DISTRIBUTION WIDTH (test code=RDW) % 11.6-16.2 PLATELET COUNT (test code=PLT) K/mm3 150-450 MEAN PLATELET VOLUME (test code=MPV) fL 6.7-11.0 CHEST SINGLE (PORTABLE)2018-05-29 00:49:00 [place] [address] Patient Name: ARANZA WHITNEY MR #: [id number] : 1970 Age/Sex: 48/M Req #: [id number] Adm Physician: Ordered by: REED CURTIS MD Report #: [id number] Location: ER Room/Bed: Procedure: [id number] DX/CHES T SINGLE (PORTABLE) Exam Date: Exam Time: REPORT STATUS: Signed EXAMINATION: CHEST SINGLE (PORTABLE) INDICATION: Chest pain, look for CHF, enlarge Mediastinum COMPARISON: Chest x-ray 04/10/2018 FINDINGS: AP view TUBES and LINES: Median sternotomy wires are again seen with fracture of the third wire. Mediastinal plates in the lower sternum remain unchanged. LUNGS: Lungs are moderately inflated. There are bibasilar atelectasis. Th ere is mild prominence of the central pulmonary vasculature, consistent with pulmonary venous congestion. PLEURA: No pleural effusion or pneumothorax. HEART AND MEDIASTINUM: Cardiac size is mildly enlarged. BONES AND SOFT TISSUES: No acute osseous lesion. Anterior cervical fusion plate. Soft tissues are unremarkable. UPPER ABDOMEN: No free air under the diaphragm. IMPRESSION: Unchanged mild cardiomegaly with central pulmonary venous congestion and bibasilar atelectasis. Signed by: Dr. Augustine Loza M.D. on 05/29/2018 12:50 AM Dictated By: AUGUSTINE LOZA MD Transcribed By: ADALBERTO on 05/29/1849 COPY TO: REED CURTIS MD URIC [id number] 11:56:00* Test Item Value Reference Range Comments URIC ACID (test code=URIC) 7.2 mg/dL 2.6-7.2 SED [id number] 20:34:00* Test Item Value Reference Range Comments SED RATE (test code=SEDW) 20 mm/hr 0-15 WINTROBE METHOD: NORMAL RANGE FOR MEN: 0-9 MM/HR WOMAN: 0-20 MM/HR SED RATE [id number] 20:33:00* Test Item Value Reference Range Comments SED RATE WESTERGREN (test code=SEDW) 20 mm/hr 0-15 BASIC METABOLIC [id number] 17:14:00* Test Item Value Reference Range Comments SODIUM (test code=NA) 138 mmol/L 136-145 POTASSIUM (test code=K) 3.8 mmol/L 3.5-5.1 CHLORIDE (test code=CL) 104.0 mmol/L 98-107 CARBON DIOXIDE (test code=CO2) 26.0 mmol/L 21-32 ANION GAP (test code=GAP) 11.8 10-20 GLUCOSE (test code=GLU) 133 mg/dL 74-106 BLOOD UREA NITROGEN (test code=BUN) 16 mg/dL 7-18 GLOMERULAR FILTRATION RATE (test code=GFR) > 60 mL/min >=60 Estimated GFR by using Modified MDRD formula.Chronic kidney disease is defined as either kidney damageor GFR <60 mL/min/1.73 m2 for >3 months. CREATININE (test code=CREAT) 1.20 mg/dL 0.7-1.3 BUN/CREATININE RATIO (test code=BUN/CREA) 13.3 10-20 CALCIUM (test code=CA) 8.5 mg/dL 8.5-10.1 [id number] 17:14:00* Test Item Value Reference Range Comments TROPONIN-I (test code=TROPI) <0.015 ng/mL 0-0.045 CBC W/O [id number] 17:10:00* Test Item Value Reference Range Comments WHITE BLOOD CELL (test code=WBC) 9.3 K/mm3 4.5-12.5 RED BLOOD CELL (test code=RBC) 4.37 mill/mm3 4.0-5.8 HEMOGLOBIN (test code=HGB) 13.0 gram/dL 13.0-17.5 HEMATOCRIT (test code=HCT) 40.6 % 42.0-52.0 MEAN CELL VOLUME (test code=MCV) 92.9 fL 80-98 MEAN CELL HGB (test code=MCH) 29.7 picogram 27.0-33.0 MEAN CELL HGB CONCETRATION (test code=MCHC) 32.0 gram/dL 33.0-36.0 RED CELL DISTRIBUTION WIDTH (test code=RDW) 13.4 % 11.6-16.2 PLATELET COUNT (test code=PLT) 218 K/mm3 150-450 MEAN PLATELET VOLUME (test code=MPV) 10.2 fL 6.7-11.0 C REACTIVE [id number] 17:09:00* Test Item Value Reference Range Comments C REACTIVE PROTEIN (test code=CRP) 2.10 mg/dL 0-0.3 CBC W/O [id number] 17:09:00* Test Item Value Reference Range Comments WHITE BLOOD CELL (test code=WBC) K/mm3 4.5-12.5 RED BLOOD CELL (test code=RBC) mill/mm3 4.0-5.8 HEMOGLOBIN (test code=HGB) 13.0 gram/dL 13.0-17.5 HEMATOCRIT (test code=HCT) % 42.0-52.0 MEAN CELL VOLUME (test code=MCV) fL 80-98 MEAN CELL HGB (test code=MCH) picogram 27.0-33.0 MEAN CELL HGB CONCETRATION (test code=MCHC) gram/dL 33.0-36.0 RED CELL DISTRIBUTION WIDTH (test code=RDW) % 11.6-16.2 PLATELET COUNT (test code=PLT) K/mm3 150-450 MEAN PLATELET VOLUME (test code=MPV) fL 6.7-11.0 BASIC METABOLIC [id number] 17:02:00* Test Item Value Reference Range Comments SODIUM (test code=NA) 138 mmol/L 136-145 POTASSIUM (test code=K) 3.8 mmol/L 3.5-5.1 CHLORIDE (test code=CL) 104.0 mmol/L 98-107 CARBON DIOXIDE (test code=CO2) mmol/L 21-32 ANION GAP (test code=GAP) 10-20 GLUCOSE (test code=GLU) mg/dL 74-106 BLOOD UREA NITROGEN (test code=BUN) mg/dL 7-18 GLOMERULAR FILTRATION RATE (test code=GFR) mL/min >=60 CREATININE (test code=CREAT) mg/dL 0.7-1.3 BUN/CREATININE RATIO (test code=BUN/CREA) 10-20 CALCIUM (test code=CA) mg/dL 8.5-10.1 [id number] 17:02:00* Test Item Value Reference Range Comments TROPONIN-I (test code=TROPI) ng/mL 0-0.045 - XR ELBOW 2 VIEWS [id number] 16:28:00 FAX: Dacia Maurice [phone] [place]: St: [facility] FAX: Blkae Cazares MD [phone] Name: ARANZA WHITNEY [facility] : 1970 Age/S: 47/M [address] [facility] Unit #: [id number] Loc: [place] [address] Phys: Dacia Caceres MD Acct: [id number] Dis Date: Status: REG ER PHONE #: [phone] Exam Date: 05/10/2018 1600 FAX #: [phone] Reason: redness and pain s/p fall EXAMS: CPT CODE: [id number] XR ELBOW [address] [place] [address] HISTORY: Pain. COMPARISON: Chest x-ray from April 06, 2018. SINGLE VIEW CHEST: No acute infiltrates, effusion or congestion is noted. Suboptimal inspiration with dependent changes. Cardiomegaly. Cervical fusion in the lower neck. IMPRESSION: No acute infiltrates, effusion or conges tion. 2 VIEWS OF THE LEFT ELBOW: AP view is very limited due to positioning. No acute fracture or dislocation on the lateral view. No joint fluid. Olecranon enthesop hyte. Mild soft tissue swelling along the dorsum. IMPRESSION: No acute fracture or dislocation of the visualized osseous st ructures AP view is markedly limited due to positioning or due to patien t's debility. No joint fluid visible. Mild soft tissue swelling along the dorsum. Electronically Signed by Jose Luis Martinez on at 6299 Reported and signed by: Amira Alanis CC: Dacia Caceres MD; Blake Cruz MD Technol ogist: MIKE SIMMONS RT(R) Trnscrd Date/Time/ By: 05/10/2018 (7144) : By: [email or web address] Orig Print D/T: S: 05/10/2018 (5 744) PAGE 1 Signed Report - XR CHEST 1 [id number] 16:28:00 FAX: Dacia Maurice [phone] [place]: St: REG FAX: Blake Cazares MD [phone] Name: ARANZA WHITNEY [facility] : 1970 Age/S: 47/M [address] [facility] Unit #: [id number] Loc: [place] [address] Phys: Dacia Caceres MD Acct: [id number] Dis Date: Status: REG ER PHONE #: [phone] Exam Date: 05/10/2018 1600 FAX #: [phone] Reason: CHEST PAIN EXAMS: CPT CODE: [id number] XR CHEST 1 V 93265 HISTORY: Pain. COMPARISON: Chest x-ray from April 06, 2018. SINGLE VIEW CHEST: No acute infiltrates, effusion or congestion is noted. Suboptimal inspiration with dependent changes. Cardiomegaly. Cervical fusion in the lower neck. IMPRESSION: No acute infiltrates, effusion or conges tion. 2 VIEWS OF THE LEFT ELBOW: AP view is very limited due to positioning. No acute fracture or dislocation on the lateral view. No joint fluid. Olecranon enthesop hyte. Mild soft tissue swelling along the dorsum. IMPRESSION: No acute fracture or dislocation of the visualized osseous st ructures AP view is markedly limited due to positioning or due to patien t's debility. No joint fluid visible. Mild soft tissue swelling along the dorsum. Electronically Signed by Jose Luis Martinez on at 8329 Reported and signed by: Amira Alanis CC: Dacia Caceres MD; Blake Cruz MD Technol ogist: MIKE SIMMONS RT(R) Trnscrd Date/Time/ By: 05/10/2018 (1628) : By: [email or web address] Orig Print D/T: S: 05/10/2018 (5 523) PAGE 1 Signed Report CHEST SINGLE (PORTABLE)2018-04-10 14:29:00 [place] [address] Patient Name: ARANZA WHITNEY MR #: [id number] : 1970 Age/Sex: 47/M Req #: [id number] Adm Physician: Ordered by: BETTINA HERNÁNDEZ HOCKEY PLAYER Report #: [id number] Location: ER Room/Bed: Procedure: [id number] DX /CHEST SINGLE (PORTABLE) Exam Date: 04/10/18 Exam Ti me: 1400 REPORT STATUS: Signed E xamination: Single AP view of the chest. COMPARISON: 02/09/2018 INDICA TION: Left chest pressure, dry cough, ankle swelling DISCUSSION: Lungs are well-inflated. No gross consolidation, pleural effusion, or pneumoth orax. Stable mild enlargement of the cardiac silhouette. Prominence of the truman tral pulmonary vasculature. Median sternotomy postsurgical changes. No acute osseous abnormality. IMPRESSION: Mild enlargement of the car diac silhouette with pulmonary venous congestion. Signed by: Dr. Jia prakash M.D. on 04/10/2018 2:32 PM Dictated By: JIA SAUCEDO MD [facility] Signed By: JIA SAUCEDO MD on 04/10/181431 Transcribed By: ADALBERTO on 1431 COPY TO: BETTINA HERNÁNDEZ HOCKEY PLAYER - XR FOOT 2 VIEWS LT 2018-03-28 14:37:00 FAX: Diego Mathis MD [phone] [place]: St: [facility] FAX: Blake Cazares MD [phone] Name: ARANZA WHITNEY [facility] : 1970 Age/S: 47/M [address] [facility] Unit #: [id number] Loc: V[address] [place] [address] Phys: Diego Mathis MD Acct: [id number] Dis Date: Status: ADM IN PHONE #: [phone] Exam Date: 03/28/2018 1046 FAX #: [phone] Reason: FALL EXAMS: CPT CODE: [id number] XR FOOT [address] [place] [address] HISTORY: Fall and pain. COMPARISON: None available. 3 VIEWS OF THE LEFT HIP: No acute fracture or dislocation. Pelvic ring is intact on a single view. Both hip joints are preserved. SI joints are preserved. Symphysis is well opposed. Trabecular pattern and mineralization are normal. There is no AVN. Soft tissues are normal. IMPRESSION: No acute fracture or dislocation. Hip joint is preserved. No AVN. AP AND LATERAL VIEW OF THE LEFT FOOT: No acute fracture or dislocation. 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 Narrowed DIP and the PIP joint spaces. Hammertoes. Achilles enthesophyte. No ankle joint fluid is noted. Mineralization and soft tissues are normal. IMPRESSION: No acute fracture or dislocation. Mild joint space narrowing at the DIP and PIP level. at 1433 Reported and signed by: Oliver Martinez M.D. CC: Diego Mathis MD; Blake Cruz MD Technologist: Walter Orellana RT(R) Trnscrd Date/Time/By: 03/28/2018 (6844) : By: [email or web address] Orig Print D/T: S: 03/28/2018 (5423) PAGE 1 Signed Report - XR HIP W/PEL UNI 2+V [id number] 14:37:00 FAX: Diego Mathis MD [phone] [place]: St: [facility] FAX: Blake Cazares MD [phone] Name: ARANZA WHITNEY [facility] : 1970 Age/S: 47/M [address] [facility] Unit #: [id number] Loc: V [facility] [place] [address] Phys: Diego Mathis MD Acct: [id number] Dis Date: Status: ADM IN PHONE #: [phone] Exam Date: 03/28/2018 1355 FAX #: [phone] Reason: FALL EXAMS: CPT CODE: [id number] XR HIP W/PEL UNI 2+[place] [address] HISTORY: Fall and pain. COMPARISON: None available. 3 VIEWS OF THE LEFT HIP: No acute fracture or dislocation. Pelvic ring is intact on a single view. Both hip joints are preserved. SI joints are preserved. Symphysis is well opposed. Trabecular pattern and mineralization are normal. There is no AVN. Soft tissues are normal. IMPRESSION: No acute fracture or dislocation. Hip joint is preserved. No AVN. AP AND LATERAL VIEW OF THE LEFT FOOT: No acute fracture or dislocation. 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 Narrowed DIP and the PIP joint spaces. Hammertoes. Achilles enthesophyte. No ankle joint fluid is noted. Mineralization and soft tissues are normal. IMPRESSION: No acute fracture or dislocation. Mild joint space narrowing at the DIP and PIP level. at 1437 Reported and signed by: Oliver Martinez M.D. CC: Diego Mathis MD; Blake Cruz MD Technologist: Mana Salazar(Saritha); STUDENT TECHNOLOGIST Trnscrd Date/Time/By: 03/28/2018 (7023) : By: [email or web address] Orig Print D/T: S: 03/28/2018 (2947) PAGE 1 Signed Report [id number] 09:05:00* Test Item Value Reference Range Comments GLYCOSYLATED HEMOGLOBIN (HA1C) (test code=GLYHGB) 6.6 % HbA1 4.8-6.0 ESTIMATED AVERAGE GLUCOSE (test code=EAG) 143 MG/DL LIPID PROFILE (CORONARY RISK)2018-03-28 09:05:00* Test Item Value Reference Range Comments TRIGLYCERIDES (test code=TRIG) 270 mg/dL 20-150 CHOLESTEROL (test code=CHOL) 164 mg/dL 0-200 CHOLESTEROL/HDL RATIO (test code=CHOLHDL) 6.0 RATIO 0-4.9 RISK ASSOCIATED WITH CHOL/HDL RATIOS: Risk Male Female1/2 AVERAGE 3.43 3.27AVERAGE 4.97 4.442X AVERAGE 9.55 7.053X AVERAGE 23.39 11.04 REFERENCE VALUE IS RELATED TO RISK LEVELS ASRECOMMENDED BY THE [facility]. HEART, LUNG, AND BLOOD INST. HDL CHOLESTEROL (test code=HDL) 26 mg/dL 40-60 LIPOPROTEIN LDL (test code=LDL) 108 mg/dL 100-129 RN PERSONNEL, CONTACT PHYSICIAN IMMEDIATELY IF THIS IS A STROKE, AMI OR CAROTID STENOSIS PATIENT WHEN THE LDL >100 (1ST OCCURENCE, THIS ADMISSION) Reference Interval: mg/dL mmol/L Optimal <100 <2.6Near/above optimal 100-129 2.6- 3.3Borderline High 130-159 3.4-4.1High 160-189 4.1-4.9Very High >=190 >=4.9=========This LDL result is a direct measurement.========= [id number] 06:56:00* Test Item Value Reference Range Comments TROPONIN-I (test code=TROPI) <0.015 ng/mL 0-0.045 COMMENTS TO SPECIAL ORDER JEWELER: COLLECT 3 HOURS AFTER PREVIOUS [id number] 02:02:00* Test Item Value Reference Range Comments TROPONIN-I (test code=TROPI) <0.015 ng/mL 0-0.045 COMMENTS TO SPECIAL ORDER JEWELER: COLLECT 3 HOURS AFTER PREVIOUS SAMPLEBASIC METABOLIC [id number] 18:34:00* Test Item Value Reference Range Comments SODIUM (test code=NA) 138 mmol/L 136-145 POTASSIUM (test code=K) 4.1 mmol/L 3.5-5.1 CHLORIDE (test code=CL) 107.0 mmol/L 98-107 CARBON DIOXIDE (test code=CO2) 23.0 mmol/L 21-32 ANION GAP (test code=GAP) 12.1 10-20 GLUCOSE (test code=GLU) 128 mg/dL 74-106 BLOOD UREA NITROGEN (test code=BUN) 13 mg/dL 7-18 GLOMERULAR FILTRATION RATE (test code=GFR) > 60 mL/min >=60 Estimated GFR by using Modified MDRD formula.Chronic kidney disease is defined as either kidney damageor GFR <60 mL/min/1.73 m2 for >3 months. CREATININE (test code=CREAT) 1.00 mg/dL 0.7-1.3 BUN/CREATININE RATIO (test code=BUN/CREA) 12.5 10-20 CALCIUM (test code=CA) 8.3 mg/dL 8.5-10.1 HEPATIC FUNCTION [id number] 18:34:00* Test Item Value Reference Range Comments TOTAL PROTEIN (test code=PROT) 6.7 gram/dL 6.4-8.2 ALBUMIN (test code=ALB) 3.3 g/dL 3.4-5.0 GLOBULIN (test code=GLOB) 3.4 gram/dL 2.7-4.2 ALBUMIN/GLOBULIN RATIO (test code=A/G) 1.0 0.75-1.50 BILIRUBIN TOTAL (test code=BILT) 0.40 mg/dL 0.0-1.0 BILIRUBIN DIRECT (test code=BILD) < 0.05 mg/dL 0.0-0.20 SGOT/AST (test code=AST) 52 IUnit/L 15-37 SGPT/ALT (test code=ALT) 43 IUnit/L 12-78 ALKALINE PHOSPHATASE TOTAL (test code=ALKP) 85 IUnit/L 45-117 Note change in reference range due to change in reagent. [id number] 18:34:00* Test Item Value Reference Range Comments TROPONIN-I (test code=TROPI) <0.015 ng/mL 0-0.045 BASIC METABOLIC [id number] 18:25:00* Test Item Value Reference Range Comments SODIUM (test code=NA) 138 mmol/L 136-145 POTASSIUM (test code=K) 4.1 mmol/L 3.5-5.1 CHLORIDE (test code=CL) 107.0 mmol/L 98-107 CARBON DIOXIDE (test code=CO2) mmol/L 21-32 ANION GAP (test code=GAP) 10-20 GLUCOSE (test code=GLU) mg/dL 74-106 BLOOD UREA NITROGEN (test code=BUN) mg/dL 7-18 GLOMERULAR FILTRATION RATE (test code=GFR) mL/min >=60 CREATININE (test code=CREAT) mg/dL 0.7-1.3 BUN/CREATININE RATIO (test code=BUN/CREA) 10-20 CALCIUM (test code=CA) mg/dL 8.5-10.1 HEPATIC FUNCTION [id number] 18:25:00* Test Item Value Reference Range Comments TOTAL PROTEIN (test code=PROT) gram/dL 6.4-8.2 ALBUMIN (test code=ALB) g/dL 3.4-5.0 GLOBULIN (test code=GLOB) gram/dL 2.7-4.2 ALBUMIN/GLOBULIN RATIO (test code=A/G) 0.75-1.50 BILIRUBIN TOTAL (test code=BILT) mg/dL 0.0-1.0 BILIRUBIN DIRECT (test code=BILD) mg/dL 0.0-0.20 SGOT/AST (test code=AST) IUnit/L 15-37 SGPT/ALT (test code=ALT) IUnit/L 12-78 ALKALINE PHOSPHATASE TOTAL (test code=ALKP) IUnit/L 45-117 [id number] 18:25:00* Test Item Value Reference Range Comments TROPONIN-I (test code=TROPI) ng/mL 0-0.045 CBC W/AUTO [id number] 18:00:00* Test Item Value Reference Range Comments WHITE BLOOD CELL (test code=WBC) K/mm3 4.5-12.5 RED BLOOD CELL (test code=RBC) mill/mm3 4.0-5.8 HEMOGLOBIN (test code=HGB) 13.4 gram/dL 13.0-17.5 HEMATOCRIT (test code=HCT) % 42.0-52.0 MEAN CELL VOLUME (test code=MCV) fL 80-98 MEAN CELL HGB (test code=MCH) picogram 27.0-33.0 MEAN CELL HGB CONCETRATION (test code=MCHC) gram/dL 33.0-36.0 RED CELL DISTRIBUTION WIDTH (test code=RDW) % 11.6-16.2 RED CELL DISTRIBUTION WIDTH SD (test code=RDW-SD) fL 37.0-51.0 PLATELET COUNT (test code=PLT) K/mm3 150-450 MEAN PLATELET VOLUME (test code=MPV) fL 6.7-11.0 NEUTROPHIL % (test code=NT%) % 39.0-69.0 IMMATURE GRANULOCYTE % (test code=IG%) % 0.0-5.0 LYMPHOCYTE % (test code=LY%) % 25.0-55.0 MONOCYTE % (test code=MO%) % 0.0-10.0 EOSINOPHIL % (test code=EO%) % 0.0-5.0 BASOPHIL % (test code=BA%) % 0.0-1.0 NEUTROPHIL # (test code=NT#) K/mm3 1.8-7.7 LYMPHOCYTE # (test code=LY#) K/mm3 1.0-5.0 MONOCYTE # (test code=MO#) K/mm3 0-0.8 EOSINOPHIL # (test code=EO#) K/mm3 0.0-0.5 BASOPHIL # (test code=BA#) K/mm3 0.0-0.2 CBC W/AUTO [id number] 18:00:00* Test Item Value Reference Range Comments WHITE BLOOD CELL (test code=WBC) 6.3 K/mm3 4.5-12.5 RED BLOOD CELL (test code=RBC) 4.35 mill/mm3 4.0-5.8 HEMOGLOBIN (test code=HGB) 13.4 gram/dL 13.0-17.5 HEMATOCRIT (test code=HCT) 40.8 % 42.0-52.0 MEAN CELL VOLUME (test code=MCV) 93.8 fL 80-98 MEAN CELL HGB (test code=MCH) 30.8 picogram 27.0-33.0 MEAN CELL HGB CONCETRATION (test code=MCHC) 32.8 gram/dL 33.0-36.0 RED CELL DISTRIBUTION WIDTH (test code=RDW) 13.7 % 11.6-16.2 RED CELL DISTRIBUTION WIDTH SD (test code=RDW-SD) 46.5 fL 37.0-51.0 PLATELET COUNT (test code=PLT) 197 K/mm3 150-450 MEAN PLATELET VOLUME (test code=MPV) 9.7 fL 6.7-11.0 NEUTROPHIL % (test code=NT%) 62.9 % 39.0-69.0 IMMATURE GRANULOCYTE % (test code=IG%) 0.8 % 0.0-5.0 LYMPHOCYTE % (test code=LY%) 26.1 % 25.0-55.0 MONOCYTE % (test code=MO%) 7.7 % 0.0-10.0 EOSINOPHIL % (test code=EO%) 1.9 % 0.0-5.0 BASOPHIL % (test code=BA%) 0.6 % 0.0-1.0 NUCLEATED RBC % (test code=NRBC%) 0.0 % 0-0 NEUTROPHIL # (test code=NT#) 3.93 K/mm3 1.8-7.7 IMMATURE GRANULOCYTE # (test code=IG#) 0.05 x10 3/uL 0-0.03 LYMPHOCYTE # (test code=LY#) 1.63 K/mm3 1.0-5.0 MONOCYTE # (test code=MO#) 0.48 K/mm3 0-0.8 EOSINOPHIL # (test code=EO#) 0.12 K/mm3 0.0-0.5 BASOPHIL # (test code=BA#) 0.04 K/mm3 0.0-0.2 NUCLEATED RBC # (test code=NRBC#) 0.00 K/mm3 0.0-0.1 - XR CHEST 1 [id number] 17:24:00 FAX: Dacia Maurice [phone] [place]: [facility]: [facility] FAX: Blake Cazares MD [phone] Name: ARANZA WHITNEY [facility] : 1970 Age/S: 47/M [address] [facility] Unit #: [id number] Loc: [facility] [place] [address] Phys: Dacia Caceres MD Acct: [id number] Dis Date: Status: REG ER PHONE #: [phone] Exam Date: 03/27/2018 1710 FAX #: [phone] Reason: Altered Mental Status EXAMS: CPT CODE: [id number] XR CHEST 1 V [id number] REASON FOR EXAM: Altered Mental Status EXAM ORDER DATE: 03/27/2018 4:51 PM Ordering Jose Luis: Dacia Caceres MD PROCEDURE: - XR CHEST 1 V COMPARISON: FINDINGS: Portable AP frontal view of the chest obtained at 5:04 PM shows the heart size is minimally enlarged. Pulmonary vasculatures are minimally congested. IMPRESSION: Minimal cardiomegaly and pulmonary venous congestion with atelectasis of the bases. Electronic ally Signed by Jose Luis Barber on 03/27/2018 at 5023 Report ed and signed by: Alvin Barber M.D. CC: Dacia Caceres MD; Blake Cruz MD Technologist: RT KAREL(Saritha) Trnscrd Date/Time/By: 03/27/2018 (3334) : By: OpalVTL Orig Print D/T: S: 03/27/2018 (7633) PAGE 1 Signed Report - CT HEAD/BRAIN W/O [id number] 17:13:00 Name: ARANZA WHITNEY [facility] : 1970 Age/S: 47 / M [address] [facility] Unit #: [id number] Loc: [facility]STOPHER [place]inter[place] [address] Phys: Dacia Caceres MD Acct: [id number] Dis Date: Status: PRE ER PHONE #: [phone] Exam Date: 03/27/2018 1701 FAX #: [phone] Reason: Altered Mental Status EXAMS: CPT CODE: [id number] CT HEAD/BRAIN W/O CONT [id number] REASON FOR EXAM: Altered Mental Status EXAM ORDER DATE: 03/27/2018 4:51 PM Ordering Jose Luis: Dacia Caceres MD PROCEDURE: - CT HEAD/BRAIN W/O CONT COMPARISON: FINDINGS: CT images of the brain were obtained without IV contrast. Dose reduction techniques were applied. The brain parenchyma is within normal limits. The carter-white matter delineation is unremarkable. The ventricles, cisterns, and sulci are unremarkable. There is no evidence of hemorrhage, mass, mass effect. There is no evidence of acute or old infarct. The calvarium is intact. IMPRESSION: Unremarkable brain. at 1713 Reported and signed by: Alvin Barber M.D. CC: Dacia Caceres MD; Blake Cruz MD Technologist:HAWA GALINDO, RT(R) CT CTDI: DLP: Trnscb Date/Time: 03/27/2018 (1712) t.CARRIE.VTL Orig Print D/T: S: 03/27/2018 (1717) CTDI: DLP: PAGE [address] BRAIN [id number] 19:31:00 [place] [address] Patient Name: ARANZA WHITNEY MR #: [id number] : 1970 Age/Sex: 47/M Req #: [id number] [facility] Physician: DEXTER DILL MD Ordered by: JAMES JONES M.D. Report #: [id number] Location: MED/SURG Room/Bed: [facility] Procedure: [id number] CT/CT BRAIN WO Exam Date: 02/10/18 Exam Time: 1620 REPORT STATUS: Signed EXAMINATION: Head CT without contrast. HISTORY:TIA, migraine. COMPARISON:CT brain from 02/09/2018. TECHNIQUE: Multidetector axial images were obtained from the foramen magnum to the vertex without contrast. The images were recon structed using brain and bone algorithms. Thin section brain images were refo rmatted into coronal and sagittal planes. Dose modulation, iterative reconst ruction, and/or weight based adjustment of the mA/kV was utilized to reduce th e radiation dose to as low as reasonably achievable. Intravenous contrast : None IMAGE QUALITY: Acceptable. FINDINGS: Skull/scalp: No ly tic or blastic. lesions. No surgical changes. Parenchyma: No abnormal den sity. No acute hemorrhage, mass or acute major vascular territorial infarct. Arteries: No density suggestive of thrombosis. Dural sinuses: No a bnormal density suggestive of thrombosis. Ventricles: No hydrocephalus or displacement. Extra-axial spaces: No abnormal density. Brain volu me: Unchanged moderate cerebellar volume loss. Craniocervical junction: No mass, Chiari malformation, or basilar invagination. Sella: No mass. Paranasal/mastoid sinuses: Imaged portions unremarkable. IMPRESSION: No acute intracranial abnormality. Unchanged nonspecific moderate cereb ellar volume loss. Signed by: Dr. Oneida Browning M.D. on 02/10/2018 7:3 6 PM Dictated By: ONEIDA BROWNING MD 35 Transcribed By: ADALBERTO on 02/10/181935 COPY TO: JAMES JONES MD CT BRAIN [id number] 05:03:00 [place] [address] Patient Name: ARANZA WHITNEY MR #: [id number] : 1970 Age/Sex: 47/M Req #: [id number] Adm Physician: Ordered by: ORACIO STARR MD Report #: [id number] Location: ER Room/Bed: Procedure: [id number] CT/C T BRAIN WO Exam Date: 02/09/18 Exam Time: 0333 REPORT STATUS: Signed EXAMINATION: He ad CT without contrast. HISTORY:Sharp right-sided headache. RYAN RISON:CT brain from 05/26/2017. TECHNIQUE: Multidetector axial images were ob tained from the foramen magnum to the vertex without contrast. The images were reconstructed using brain and bone algorithms. Thin section brain images were reformatted into coronal and sagittal planes. Dose modulation, iterative r econstruction, and/or weight based adjustment of the mA/kV was utilized to red uce the radiation dose to as low as reasonably achievable. Intravenous co ntrast: None IMAGE QUALITY: Acceptable. FINDINGS: Skull/scalp: No lytic or blastic. lesions. No surgical changes. Parenchyma: No abnorm al density. No acute hemorrhage, mass or acute major vascular territorial infa rct. Arteries: No density suggestive of thrombosis. Dural sinuses : No abnormal density suggestive of thrombosis. Ventricles: No hydrocepha amalia or displacement. Extra-axial spaces: No abnormal density. Brai n volume: Unchanged moderate cerebellar volume loss. Craniocervical juncti on: No mass, Chiari malformation, or basilar invagination. Sella: No mas s. Paranasal/mastoid sinuses: Imaged portions unremarkable. IMPRE SSION: No acute intracranial abnormality. Unchanged nonspecific moderate cerebellar volume loss. Signed by: Dr. Oneida Browning M.D. on 02/09/2018 5:07 AM Dictated By: ONEIDA BROWNING MD 6 Transcribed By: ADALBERTO on 02/09/18506 CO PY TO: ORACIO STARR MD CT CHEST [id number] 04:38:00 [place] [address] Patient Name: ARANZA WHITNEY MR #: [id number] : 1970 Age/Sex: 47/M Req #: [id number] Adm Physician: Ordered by: ORACIO STARR MD Report #: [id number] Location: ER Room/Bed: Procedure: [id number] CT/C T CHEST W Exam Date: 02/09/18 Exam Time: 0340 REPORT STATUS: Signed EXAM: CT CHEST W DATE: 02/09/2018 1:46 AM INDICATION: Altered mental status COMPARISON: 04/19/2017 TECHNIQUE: Multidetector CT scanning of the chest was performed. Co natividad and sagittal multiplanar reformations were obtained. CT low dose te chniques were utilized, as applicable. IV Contrast: 100 ml Isovue 370/300, 7 0 mL administered FINDINGS: Extensive noise related to large body habitus and suboptimal contrast attenuation within the main pulmonary artery (124 HU) precludes adequate assessment of the pulmonary arteries for embolism. No large central main filling defect. LUNGS AND PLEURA: Central airways are patent. Stable right greater than left perihilar opacity and right upper/middle lobe traction bronchiectasis from prior, likely atelectasis/scarring. No effusions or pneumothorax. HEART, MEDIASTINUM, VESSELS: Normal heart size, aortic and main pulmonary artery caliber. No pericardial effusion. Stable prominent m ediastinal nodes. UPPER ABDOMEN: Administered high density fluid within th e stomach and lower esophagus. MUSCULOSKELETAL: Changes status post media n sternotomy with incomplete union superiorly. Partially visualized ACDF. IMPRESSION: 1. Severely limited assessment related to body habitus and subopt imal attenuation in the pulmonary arteries. No large central embolism. 2. O therwise stable from prior. No consolidation. Signed by: Dr Mckay Ricardo MD on 02/09/2018 4:49 AM Dictated By: MCKAY RICARDO MD 8 Transcribed By: ADALBERTO on 01/19 COPY TO: ORACIO STARR MD CHEST SINGLE (PORTABLE) 2018-02-09 04:36:[address], [place], [place] [address] Patient Name: ARANZA WHITNEY MR #: [id number] : 1970 Age/Sex: 47/M Req #: [id number] Adm Physician: Ordered by: ORACIO STARR MD Report #: [id number] Location: ER Room/Bed: Procedure: [id number] DX/C HEST SINGLE (PORTABLE) Exam Date: 02/09/18 Exam Time : 0350 REPORT STATUS: Signed [facility] [address] ST SINGLE (PORTABLE), 02/09/2018 1:46 AM Technique: CHEST SINGLE (PORTABLE) Comparison: 01/02/2018 Clinical history: Shortness of breath Findings: See Impression Impression: Limited by portable technique and motion. 1. Lines/Tubes: Stable median sternotomy wires and hardware 2. Stable cardiom ediastinal silhouette. 3. Limited evaluation. Perihilar opacities may reflect central vascular congestion and/or atelectasis 4. No effusion or pneumothora x. Signed by: Dr Mckay Ricardo MD on 02/09/2018 4:38 AM Dictated By : MCKAY RICARDO MD 0 438 Transcribed By: ADALBERTO on 02/09/18 0438 COPY TO: ORACIO STARR CHEST SINGLE (PORTABLE)2018-01-02 02:21:[address] [address] Patient Name: ARANZA WHITNEY MR #: [id number] : 1970 Age/Sex: 47/M Req #: [id number] Adm Physician: Ordered by: ORACIO STARR MD Report #: [id number] Location: ER Room/Bed: Procedure: [id number] DX/C HEST SINGLE (PORTABLE) Exam Date: Exam Time: REPORT STATUS: Signed EXAM: CHEST SIN GLE (PORTABLE), AP 1 view INDICATION: Chest pain, left side COMPARISON: None FINDINGS: Limited evaluation secondary to soft tissue attenuation. DAGO ES/TUBES: None LUNGS: Perihilar bronchial thickening and atelectasis. PLEURA: No effusions or pneumothorax. HEART AND MEDIASTINUM: Stable appear ance BONES AND SOFT TISSUES: No acute findings. Median sternotomy hardware. IMPRESSION: No interval change Signed by: Dr. Vitaly carvalho M.D. on 01/02/2018 2:22 AM Dictated By: VITALY GODINEZ MD Electronica lly Signed By: VITALY GODINEZ MD on 01/02/18221 Transcribed By: ADALBERTO on 221 COPY TO: ORACIO STARR MD D-Dimer, Quantitative 2016-09-07 09:54:00* Test Item Value Reference Range Comments D-Dimer, Quant (test code=DDQNT) 620 ng/mL 0-500 Troponin [id number] 09:37:00* Test Item Value Reference Range Comments Troponin T (test code=JOSÉ) <0.010 ng/mL 0.000-0.090 Comprehensive Metabolic Brguf8870-70-09 09:37:00* Test Item Value Reference Range Comments [...] race is not provided, and the patient isAfrican-Sri Lankan, multiply by 1.212. If sex is not [...] the National Kidney Foundat ion,http://nkdep.nih.gov CBC with Oktinvfmcppj0973-28-25 09:00:00* Test Item Value Reference Range Comments [...] Lymph Abs (test code=ALYMPH) 1.4 K/cumm 0.5-4.6 Iron Abs (test code=AMONO) 0.4 K/cumm 0.0-1.2 Eos Abs (test code=AEOS) 0.18 K/cumm 0.00-0.74 Baso Abs (test code=ABASO) 0.0 K/cumm 0.00-0.21 Glucose blood bzjlolemqll4372-20-66 11:05:00* Test Item Value Reference Range Comments Glucose blood fingerstick (test whuh=AKY4252) 173 mg/dL 65-120 Complete blood count (CBC) with automated white blood cell (WBC) differential 2016-06-07 06:15:00* Test Item Value Reference Range Comments White blood cell count (test pcyd=ZZH2559) 6.0 4.3-10.9 Blood erythrocytes count (number/volume) (test fdup=28042-8) 4.52 M/ul 4.33-5.43 Hemoglobin measurement (test honw=HVJ9246) 13.6 g/dL 13.6-17.9 Blood hematocrit (volume fraction) (test vgtr=51556-2) 39.7 % 39.6-49.0 MCV (test pdpe=38417-9) 87.7 fL 80-100 MCH (test hfgt=87239-4) 30.0 pg 27.0-35.0 MCHC (test code=MCHC) 34.2 g/dL 32.0-36.0 Platelets (test code=PLT) 184 152-406 Red Cell Distribution Width (test code=RDW) 15.0 % 12.1-15.2 Blood platelet mean volume (test dmjj=41973-0) 8.2 fL 7.6-11.3 Neutrophils % (test code=RENETTA%) 61.7 % 41.7-73.7 Lymphocytes/leuk NFr Bld (test vrpq=41251-8) 26.6 % 15.3-44.8 Monocyte percentage (test wpsi=5461-7) 9.0 % 3.3-12.3 Eosinophil % (test epzu=883-0) 1.9 % 0-4.4 Basophil % (test oqko=94090-0) 0.8 % 0-1.3 Absolute neutrophil count (test sphf=203-3) 3.7 1.8-8.0 Absolute lymphocyte count (test rofv=53012-8) 1.6 0.7-4.9 Absolute monocyte count (test tlyn=695-7) 0.5 0.1-1.3 Absolute Eosinophils (test code=EOA) 0.1 0-0.5 Absolute Basophils (test code=BASA) 0.0 0-0.5 Primary Language Cynthia M9182-04-66 05:57:00* Test Item Value Reference Range Comments Troponin I (test code=TROP) < 0.03 <0.03 Primary Language Vietnamese Physician Instructions Edit Troponin Times according to first ED TroponinBasic Metabolic Picdt5767-47-95 05:55:00 * Test Item Value Reference Range Comments Sodium level (test diid=UJL9864) 139 meq/L 135-145 4.0 Chloride measurement (test bsuv=CXG0158) 107 meq/L 101-111 Bicarbonate (test code=CO2) 26 meq/L 21-31 Glucose measurement (test vmag=CAN9707) 112 mg/dL 65-120 ADA Clinical Practice Recommendation: <100 mg/dl=Normal Fasting Glucose BUN Bld-mCnc (test uwij=9480-8) 14 mg/dL 6-20 Creatinine measurement (test bioj=KBF6506) 0.99 mg/dL 0.61-1.24 The creatinine method used has been calibrated to be traceable to Isotope dilution Mass Spectrometry (IDMS). For more information: www.nkdep.nih.gov Estimated glomerular filtration rate (GFR) determination (test aobo=38655-5) 81 mL =/>90 FOR CHRONIC KIDNEY DISEASE: [...] (test code=CA) 9.1 mg/dL 8.5-10.5 Primary Language Englishoponin V5969-97-64 22:43:00* Test Item Value Reference Range Comments Troponin I (test code=TROP) < 0.03 <0.03 Primary Language Vietnamese Physician Instructions Edit Troponin Times according to first ED TroponinUrine dipstick testing at [facility]-rds[facility] 2016-06-06 17:00:00* Test Item Value Reference Range Comments Urine specific gravity measurement (test vbcg=3660-7) 1.020 1.005-1.030 Urine glucose detection (test zbzb=2455-0) Negative NEG Urine Ketones (test code=UKET) NEGATIVE NEG Urine blood detection (test rfnz=05410-4) Negative NEG Urine pH (test pofo=8071-6) 6.0 5.0-7.0 Urinalysis with microscopy (test eang=11075-4) NEGATIVE NEG Urine nitrate measurement (test zcfs=52994-8) NEGATIVE NEG Urine Leukocyte Esterase (test code=UESTR) TRACE NEG Comment Bed:20 mc NEG NEG NEG TRACE NEG 6.0 NEG Y 1.020Brain natriuretic peptide (BNP) flprzidgykc4384-14-52 15:04:00* Test Item Value Reference Range Comments Brain natriuretic peptide (BNP) measurement (test iptd=87511-6) 46 pg/mL <=100 Basic Metabolic Jyibh8831-25-17 14:54:00* Test Item Value Reference Range Comments Sodium level (test sxtk=VQZ1617) 140 meq/L 135-145 3.6 Chloride measurement (test wohs=PHV9103) 105 meq/L 101-111 Bicarbonate (test code=CO2) 24 meq/L 21-31 Glucose measurement (test bznr=RCK5072) 115 mg/dL 65-120 ADA Clinical Practice Recommendation: <100 mg/dl=Normal Fasting Glucose BUN Bld-mCnc (test pyss=3024-8) 12 mg/dL 6-20 Creatinine measurement (test hrqj=JAM3297) 1.02 mg/dL 0.61-1.24 The creatinine method used has been calibrated to be traceable to Isotope dilution Mass Spectrometry (IDMS). For more information: www.nkdep.nih.gov Estimated glomerular filtration rate (GFR) determination (test gbad=75869-5) 79 mL =/>90 FOR CHRONIC KIDNEY DISEASE: [...] (test code=CA) 9.3 mg/dL 8.5-10.5 Liver (Hepatic) Eivnbfbb3700-90-36 14:54:00* Test Item Value Reference Range Comments Aspartate aminotransferase (AST) measurement (test pdxm=FTU4591) 22 [iU]/L 10-42 ALT/SGPT (test code=SGPT) 23 [iU]/L 10-60 Alkaline Phosphatase (test code=ALK) 76 [iU]/L 42-121 Bilirubin total (test bptm=HOB8210) 0.8 mg/dL 0.3-1.2 Bilirubin direct (test bcds=0247-1) 0.1 mg/dL 0-0.2 Serum total protein measurement (test qcna=0527-5) 6.5 g/dL 6.0-8.3 Albumin measurement (test lmxh=WVY7655) 4.1 g/dL 3.2-5.5 Globulin (test code=GLOB) 2.4 g/dL 2.3-3.5 Albumin/Globulin Ratio (test code=A/G) 1.7 1.1-1.8 Creatine Iewyhpisqtmvs5650-67-30 14:54:00* Test Item Value Reference Range Comments Creatine Phosphokinase (test code=CPK) 114 [iU]/L 22-269 CKMB Creatine Kinase OA6406-75-95 14:54:00* Test Item Value Reference Range Comments CKMB Creatine Kinase MB (test code=CKMB) 1.6 ng/mL 0.3-4.0 Magnesium bnfxxtcuzow5313-64-18 14:54:00* Test Item Value Reference Range Comments Magnesium measurement (test saiz=49256-5) 1.9 mg/dL 1.8-2.5 Troponin (Emerg Dept Use Only)2016-06-06 14:51:00* Test Item Value Reference Range Comments Troponin (Emerg Dept Use Only) (test code=TROPED) < 0.03 <0.03 Comment Bed:20 Test Ordered to Rule Out VTE/DVT? NProthrombin time (PT) with international normalized ratio (INR)2016-06-06 14:40:00* Test Item Value Reference Range Comments PT Prothrombin Time (test code=PROTIME) 11.8 s 9.5-12.5 INR in Blood by Coagulation assay (test wiak=46745-9) 1.04 Monitor pts using INR value (not prothrombin time) INR Coumadin Therapy: Low Range (prophylaxis) 2.0-3.0 High Range (high risk of clot formation) 2.5-3.5 Test Ordered to Rule Out VTE/DVT? N Test Ordered to Rule Out VTE/DVT? NPTT, Activated Partial Bfcksv5797-93-61 14:40:00* Test Item Value Reference Range Comments PTT, Activated Partial Thromb (test code=PTT) 33.2 s 24.3-36.9 Test Ordered to Rule Out VTE/DVT? N Test Ordered to Rule Out VTE/DVT? NComplete blood count (CBC) with automated white blood cell (WBC) xqgfaxjqahjm7885-20-32 14:37:00* Test Item Value Reference Range Comments White blood cell count (test tkef=GVT3257) 6.2 4.3-10.9 Blood erythrocytes count (number/volume) (test dbti=26855-6) 4.87 M/ul 4.33-5.43 Hemoglobin measurement (test drnu=SMA8972) 14.4 g/dL 13.6-17.9 Blood hematocrit (volume fraction) (test lcun=50325-4) 42.5 % 39.6-49.0 MCV (test jfxg=30706-8) 87.3 fL 80-100 MCH (test krxq=41806-5) 29.5 pg 27.0-35.0 MCHC (test code=MCHC) 33.8 g/dL 32.0-36.0 Platelets (test code=PLT) 213 152-406 Red Cell Distribution Width (test code=RDW) 14.6 % 12.1-15.2 Blood platelet mean volume (test legk=03609-8) 8.2 fL 7.6-11.3 Neutrophils % (test code=RENETTA%) 56.1 % 41.7-73.7 Lymphocytes/leuk NFr Bld (test rhgc=72313-5) 33.4 % 15.3-44.8 Monocyte percentage (test sjou=4382-9) 8.3 % 3.3-12.3 Eosinophil % (test qcia=731-7) 1.5 % 0-4.4 Basophil % (test olum=65737-0) 0.7 % 0-1.3 Absolute neutrophil count (test boxx=651-5) 3.5 1.8-8.0 Absolute lymphocyte count (test xuhc=98701-2) 2.1 0.7-4.9 Absolute monocyte count (test qvcq=552-7) 0.5 0.1-1.3 Absolute Eosinophils (test code=EOA) 0.1 0-0.5 Absolute Basophils (test code=BASA) 0.0 0-0.5 CT ABDOMEN/PELVIS [place] [address] Patient Name: ARANZA WHITNEY MR #: [id number] : 1970 Age/Sex: 47/M Req #: [id number] Adm Physician: Ordered by: RUFINA STREET NP Report #: [id number] Location: ER Room/Bed: Procedure: [id number] CT/CT ABDOMEN/PELVIS W Exam D ate: 06/23/17 Exam Time: 190 REPORT STATUS: Si gned EXAM: CT ABDOMEN [...] ADALBERTO frost 06/23/171932 COPY TO: RUFINA STREET NP CT BRAIN [facility] [address] [place] [address] Patient Name: ARANZA WHITNEY MR #: [id number] : 10/1970 Age/Sex: 46/M Req #: [id number] Adm Physician: Ordered by: AZAEL HARMAN MD Report #: [id number] Location: ER Room /Bed: Procedure: [id number] CT/CT BRAIN WO Exam Date: 05/26/17 Exam [...] moderate cerebellar volume loss. Signed by: Dr. Oneida arreola M.D. on 05/26/2017 10:31 PM Dictated By: ONEIDA garcia Signed By: ONEIDA BROWNING MD on 05/26/172230 Transcribed By: ADALBERTO on 05/26/172230 COPY TO: AZAEL HARMAN MD [facility] (PORTABLE) [facility] [address] [place] [address] Patient Name: ARANZA WHITNEY MR #: [id number] : 1970 Age/Sex: 46/M Req #: [id number] Adm Physician: Ordered by: AZAEL HARMAN MD Report #: [id number] Location: ER Room/Bed: Procedure: [id number] DX/CHEST SINGLE (PORTABLE) Exam Date: 05/26/17 Exam [...] 54 PM Dictated By: ANTONIO RICK MD 1607 Transcribed By: ADALBERTO on 05/26/17 3556 COPY TO: AZAEL HARMAN MD CHEST SINGLE (PORTABLE) [place] [address] Patient Name: ARANZA WHITNEY MR #: [id number] : 10/1970 Age/Sex: 46/M Req #: [id number] Adm Physician: Ordered by: SARA IVERSON MD Report #: [id number] Location: ER Room/Bed: Procedure: [id number] DX/CHEST SINGLE (PORTABLE) Exam Date: 04/20/17 Exam Time: 6 REPORT STATUS: S igned EXAM: CHEST SINGLE (PORTABLE), AP 1 view INDICATION: Left-sided chest , jaw and arm pain COMPARISON: None FINDINGS: LINES/TUBES: None SHAHEEN NGS: Perihilar and bibasilar atelectasis and bronchial [...] TO: SARA IVERSON MD CT CHEST W [place] [address] Patient Name: ARANZA WHITNEY MR #: [id number] : 1970 Age/Sex: 46/M Req #: [id number] Adm Physician: Ordered by: SARA IVERSON MD Report #: [id number] Location: ER Room/Bed: Procedure: [id number] CT/CT CHEST W Exam Date: Exam Time: 2338 REPORT STATUS: Signed EXAM : CT CHEST [...]
--- OUTSIDE RECORDS SUMMARY | 2018-10-22 17:56 | XMS REPORT | Summary of Care ---
Author Author [facility] Organization [facility] Address Unknown Phone Unavailable Care Team Providers Care Stringing Machine Operator Name Role Phone Laura Holland PCP Reason for Referral * (Routine) Referred By Contact Referred To Contact Status Reason Specialty Diagnoses / Procedures Glenn Shine MBBS [address] [facility] [id number] [place] [address] Laura Holland [address] [facility] [address] [place] [address] New Request Diagnoses Chest pain, unspecified type Acute on chronic congestive heart failure, unspecified heart failure type P rocedures Discharge Follow-up: PCP LAURA HOLLAND; 3-5 Days * (Routine) Referred By Contact Referred To Contact Status Reason Specialty Diagnoses / Procedures Glenn Shine MBBS [address] [facility] [id number] [place] [address] New Request IM-CARDIOVASCULA Diagnoses R DISEASE Chest pain, unspecified type Acute on chronic congestive heart failure, unspecified heart failure type P rocedures Discharge Follow-Up: Specialty Service IM-CARDIOVASCULAR DISEASE; 4-6 Weeks * Radiology Services (STAT) Referred By Contact Referred To Contact Status Reason Specialty Diagnoses / Procedures Bernarda Fleming, DNP [address] [facility] [address] [place] [address] New Request Diagnostic Diagnoses Radiology Chest pain, unspecified type P rocedures Chest 1 View * Radiology Services (STAT) Referred By Contact Referred To Contact Status Reason Specialty Diagnoses / Procedures Toby PlattBernarda brooks, DNP [address] [place] [address] New Request Diagnostic Diagnoses Radiology Chest pain, unspecified type P rocedures Chest 1 View Reason for Visit * Reason Comments Chest Pain * Auth/Cert Referred By Contact Referred To Contact Status Reason Specialty Diagnoses / Procedures [facility] Emergency Dept [address] [place] [id number] Emergency Medicine Encounter Details Care Team Description Date Type Department Toby Bernarda Solano, DNP [address] [place], [place] [id number] Glenn Shine MBBS [id number] [place], [place] [id number] Chest pain 09/28/[address]/ Vascular (LIZ 9A) - [address] [facility] 09/29/2018 [place], [place] [id number] Allergies Comments Active Allergy Reactions Severity Noted Date Ampicillin Unknown - See 06/19/2018 comments Gabapentin Unknown - See 06/19/2018 comments "merino my stomach" Hydrocodone-Acetaminophen Other - See 07/07/2018 comments Metoclopramide Hcl Unknown - See 06/19/2018 comments Ketorolac Tromethamine Hives 09/19/2018 Tramadol Unknown - See High 07/07/2018 comments Ondansetron Hcl (Pf) Itching 06/19/2018 documented as of this encounter (statuses as of 09/29/2018) Medications End Date Status Medication Sig Dispensed [...] every 6 (six) hours as needed. Active atorvastatin 80 mg Take 1 tablet [...] type (two) times daily for 30 days. Active LORazepam 1 mg tablet Take 1 mg by 0 mouth 3 (three) times daily. Active furosemide 40 mg Take 2 120 tablet 2 tabletIndications: Other tablets by 9 chest pain, Acute on mouth every chronic congestive heart morning and failure, unspecified evening. heart failure type 09/29/2018 Discontinued furosemide 40 mg Take 1 tablet 120 tablet 3 tabletIndications: Other by mouth 3 9 chest pain, Acute on (three) times chronic congestive heart daily. failure, unspecified heart failure type documented as of this encounter (statuses as of 09/29/2018) Active Problems Problem Noted Date Tachycardia 09/05/2018 [...] as of this encounter (statuses as of 09/29/2018) Social History Date Tobacco Use Types Packs/Day [...] Signs Reading Time Taken Comments Vital Sign 126/92 09/29/2018 12:08 PM CDT Blood Pressure 87 09/29/2018 12:08 PM CDT Pulse 36.7 C (98.1 F) 09/29/2018 12:08 PM CDT Temperature 18 09/29/2018 12:08 PM CDT Respiratory Rate 98% 09/29/2018 12:08 PM CDT Oxygen Saturation - - Inhaled Oxygen Concentration 194 kg (427 lb 11.1 oz) 09/29/2018 3:14 AM CDT bed weight Weight 188 cm (6' 2") 09/28/2018 4:55 PM CDT Height 54.91 09/28/2018 4:55 PM CDT Body Mass Index documented in this encounter Discharge Instructions * Attachments The following attachments cannot be sent through Care Everywhere.* Angina, Discharge Instructions for (Brazilian) documented in this encounter Progress Notes * Ariana Andrews - 09/29/2018 4:02 PM CDT Care Management Social Functional Assessment Patient Name: Lui Lopez Age: [age] year old Sex: male Patient's Previous Ad[facility] Date [facility]: 07/07[facility]2018 Current diagnosis and co-morbidities: Chest Pain Readmission Questions: Was patient discharged from any acute care hospital within the last 30 days: No Social Functional Assessment: Primary language spoken/preferred: Brazilian Mental Status: Alert & Oriented to Person,Place & Time Information given by: Self Patient's support system: None Living Arrangement: Other Other living arrangement: [facility] in [place] Address of living arrangement : [address] [place] [address] [address] [facility] [address] Barriers to returning home: None Baseline functional status- ambulation: Dependent Functional status-baseline personal care: Requires minimal to moderate assistanc e Baseline functional status- driving: Requires minimal to moderate assistance Baseline functional status- grocery shopping: Requires minimal to moderate leighann tance Functional status-baseline housekeeping: Requires minimal to moderate assistance Functional status-baseline meal prep: Requires minimal to moderate assistance Current functional status same as prior: Yes Do you have a PCP?: Yes Name of PCP: LAURA HOLLAND Home Health Care Agency: No Provider Services: No DME Company: No Equipment: Scooter;Shower Chair;Grab bars Hemodialysis: No Funding Resources: Medicaid HMO Prescription coverage plan: Medicaid unlimited slots Pharmacy where meds are filled: (RX are filled at the assisted living) Anticipated services prior to disharge: Continue Medical Eval Expected mode of discharge transportation: Medicaid transportation(Will need ass istance with transportation) Additional info required for discharge planning: Pending medical evaluation Recommended discharge plan: Return to facility SFA Complete: Social Functional Assessment complete: Yes Alcohol Use Screening (AUDIT-C) How often do you have a drink containing alcohol?: Never SCORE: 0 Did patient elect to have resources provided: No Role of Care Management explained. documented in this encounter Plan of Treatment Order Schedule Name Type Priority Associated Diagnoses ONCE for 1 Occurrences starting 09/29/2018 until 09/29/2018 EKG-12 LEAD ROUTINE HEART STATION Routine Health Maintenance Due Date Last Done Comments PNEUMOCOCCAL 0-64 YEARS 1976 COMBINED SERIES (1 of 1 - PPSV23) EYE EXAM 1980 URINE MICROALBUMIN 1980 FOOT EXAM 1988 DTaP,Tdap,and Td Vaccines 1989 (1 - Tdap) INFLUENZA VACCINE 10/19/2018 HgA1C 01/14/2019 07/14/2018, 06/19/2018 LDL-C 07/15/2019 07/14/2018, 06/20/2018 CREATININE (SERUM) 09/29/2019 09/28/2018, 09/19/2018, 09/04/2018, Additional history exists documented as of this encounter Implants Device Identifier Shelf Expiration Date Model / Serial / Lot Implanted Type 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 Chest documented as of this encounter Procedures Comments Procedure Name Priority Date/Time Associated Diagnosis ECHO ROUTINE W/DOPPLER DEBBIE 09/29/2018 Chest pain, unspecified COLOR 10:44 AM CDT type POCT GLUCOSE (AUTOMATED) Routine 09/29/2018 9:29 AM CDT BASIC METABOLIC PANEL Add-on 09/29/2018 (NA, K, CL, CO2, GLUCOSE, 2:36 AM CDT BUN, CREATININE, CA) TROPONIN I Routine 09/29/2018 2:36 AM CDT MAGNESIUM Add-on 09/29/2018 2:36 AM CDT XR CHEST 1 VW STAT 09/28/2018 Chest pain, unspecified 5:50 PM CDT type CBC WITH DIFFERENTIAL STAT 09/28/2018 Chest pain, unspecified 5:28 PM CDT type EXTRA TUBE LAV STAT 09/28/2018 5:28 PM CDT N-TERMINAL PRO-BNP STAT 09/28/2018 Chest pain, unspecified Add-On 5:28 PM CDT type ACTIVATED PARTIAL STAT 09/28/2018 Chest pain, unspecified THRMPLAS GIRISH 5:28 PM CDT type D-DIMER STAT 09/28/2018 Chest pain, unspecified Add-On 5:28 PM CDT type PROTHROMBIN TIME / INR STAT 09/28/2018 Chest pain, unspecified 5:28 PM CDT type CBC WITH DIFF Routine 09/28/2018 Chest pain, unspecified 5:28 PM CDT type BASIC METABOLIC PANEL STAT 09/28/2018 Chest pain, unspecified (NA, K, CL, CO2, GLUCOSE, 5:28 PM CDT type BUN, CREATININE, CA) TROPONIN I STAT 09/28/2018 Chest pain, unspecified 5:28 PM CDT type EKG-12 LEAD STAT 09/28/2018 5:17 PM CDT documented in this encounter Results * POCT GLUCOSE (AUTOMATED) (09/29/2018 9:29 AM CDT) POCT GLU 194 (H) 70 - 110 mg/dL [facility] Specimen Blood Performing Organization Address City/State/Zipcode Phone Number [facility] CLIA: [id number], [address] [place] [address] [facility] * MAGNESIUM (09/29/2018 2:36 AM CDT) MAGNESIUM 1.5 (L) 1.7 - 2.4 mg/dL [facility] Specimen Blood - VENOUS Performing Organization Address City/State/Zipcode Phone Number [facility] CLIA: [id number], [address] [place] [address] [facility] * BASIC METABOLIC PANEL (NA, K, CL, CO2, GLUCOSE, BUN, CREATININE, CA) (09/29/2018 2:36 AM CDT) NA 137 135 - 145 mmol/L [facility] K 3.6 3.5 - 5.0 mmol/L [facility] CL 102 98 - 108 mmol/L [facility] CO2 TOTAL 27 23 - 31 mmol/L [facility] AGAP 8 2 - 16 [facility] BUN 12 7 - 23 mg/dL [facility] GLUCOSE 231 (H) 70 - 110 mg/dL [facility] CREATININE 0.95 0.60 - 1.25 mg/dL [facility] CALCIUM 8.3 (L) 8.6 - 10.6 mg/dL [facility] eGFR 84.6 mL/min/1.73m2 [facility] Calculation SERVICES (Non-) eGFR 102.6 mL/min/1.73m2 [facility] Calculation SERVICES () Specimen Blood - VENOUS Narrative Performed At Association of Glomerular Filtration Rate (GFR) and Staging of Kidney Disease* [facility] + + + + SERVICES | GFR (mL/min/1.73 m2)| With Kidney Damage|Without Kidney Damage + + + + |>90|Stage one| Normal [...] tests). Performing Organization Address City/State/Zipcode Phone Number [facility] CLIA: [id number], [address] [place] [address] [facility] * TROPONIN I (09/29/2018 2:36 AM CDT) TROPONIN I 0.002 <=0.034 ng/mL [facility] Specimen Blood - VENOUS Narrative Performed At Equal or Less than 0.034 ng/ml---Normal [facility] Note: Cardiac troponin begins to rise 3-4 hours after the onset of ischemia. SERVICES Repeat in 4-6 hours if the sample was drawn within 3-4 hours of the onset of the symptom and found normal. Between 0.035 and [...] patient's use of biotin. Performing Organization Address [facility] Phone Number [facility] CLIA: [id number], [address] [place] [address] [facility] * Chest 1 View (09/28/2018 5:50 PM CDT) Specimen Impressions Performed At Mild interstitial pulmonary edema. PACS/VR/DOSE No focal consolidation to suggest pneumonia. Narrative Performed At * * * * * * * * ORIGINAL REPORT * * * * * * * * PACS/VR/DOSE XR CHEST 1 VW HISTORY: chest pain COMPARISON: 09/19/2018, 07/14/2018 chest radiographs. FINDINGS: Sternotomy sutures project over the upper midline, as well as the polygonal radiopaque structures present in multiple prior studies. ACDF hardware is again noted. Cardiomediastinal silhouette is of normal size and morphology. Trachea is not abnormally deviated. Lung volumes are normal. There is no confluent consolidation, however, again noted is central vascular prominence and prominent interstitial markings bilaterally. Procedure Note [facility], Radiant Results Inft User - 09/28/2018 6:07 PM CDT * * * * * * * * ORIGINAL REPORT * * * * * * * * XR CHEST 1 VW HISTORY: chest pain COMPARISON: 09/19/2018, 07/14/2018 chest radiographs. FINDINGS: Sternotomy sutures project over the upper midline, as well as the polygonal radiopaque structures present in multiple prior studies. ACDF hardware is again noted. Cardiomediastinal silhouette is of normal size and morphology. Trachea is not abnormally deviated. Lung volumes are normal. There is no confluent consolidation, however, again noted is central vascular prominence and prominent interstitial markings bilaterally. IMPRESSION Mild interstitial pulmonary edema. No focal consolidation to suggest pneumonia. Performing Organization Address City/[facility]/Zipcode Phone Number PACS/VR/DOSE * D-DIMER (09/28/2018 5:28 PM CDT) D-DIMER 0.32 <0.50 g/mL (FEU) [facility] Specimen Blood - LINE, VENOUS Narrative Performed At This test may be used in conjunction with a clinical pretest probability (PTP) [facility] assessment model to exclude pulmonary embolism (PE) and as an aid in the [facility] diagnosis of deep venous thrombosis (DVT) in outpatients suspected of PE or DVT. JUPITER A D-Dimer value less than 0.50 g/ml (FEU) has a negative predicative value of 98 to 100% (95% CI) for the exclusion of pulmonary embolism (PE) and 95 to 100% (95% CI) as an aid in the diagnosis of deep vein thrombosis (DVT) when there is low or moderate pretest probability of PE or DVT. D-Dimer values are expressed in initial fibrinogen equivalent units (FEU). Performing Organization Address City/State/Zipcode Phone Number [facility] CLIA: [id number], [address] [place] [address] [facility] * N-TERMINAL PRO-BNP (09/28/2018 5:28 PM CDT) NT-proBNP 549 (H) <=125 pg/mL [facility] Specimen Blood - LINE, VENOUS Narrative Performed At [facility] has been reported to cause a negative bias, interpret results relative to [facility] patient's use of biotin. [facility] Performing Organization Address City/State/Zipcode Phone Number [facility] CLIA: [id number], [address] [place] [address] [facility] * EXTRA TUBE LAV (09/28/2018 5:28 PM CDT) Specimen Blood Performing Organization Address City/[facility]/Zipcode Phone Number [facility] CLIA: [id number], [address] [place] [address] [facility] * CBC WITH DIFFERENTIAL (09/28/2018 5:28 PM CDT) WBC 5.62 4.20 - 10.70 [facility] 10*3/L [facility] RBC 4.06 (L) 4.26 - 5.52 10*6/L [facility] HGB 12.6 12.2 - 16.4 g/dL [facility] HCT 38.0 (L) 38.4 - 49.3 % [facility] MCV 93.6 81.7 - 95.6 fL [facility] MCH 31.0 26.1 - 32.7 pg [facility] MCHC 33.2 31.2 - 35.0 g/dL [facility] RDW-SD 47.1 38.5 - 51.6 fL [facility] RDW-CV 14.0 12.1 - 15.4 % [facility] PLT 200 150 - 328 10*3/L [facility] MPV 9.5 (L) 9.8 - 13.0 fL [facility] NRBC/100 WBC 0.0 0.0 - 10.0 /100 WBCs [facility] NRBC x10^3 <0.01 10*3/L [facility] GRAN MAT (NEUT) 56.7 % [facility] % [facility] IMM GRAN % 2.10 % [facility] LYMPH % 29.0 % [facility] MONO % 9.3 % [facility] EOS % 2.5 % [facility] BASO % 0.4 % [facility] GRAN MAT 3.19 1.99 - 6.95 10*3/uL [facility] x10^3(ANC) [facility] IMM GRAN x10^3 0.12 (H) 0.00 - 0.06 10*3/uL [facility] LYMPH x10^3 1.63 1.09 - 3.23 10*3/uL [facility] MONO x10^3 0.52 0.36 - 1.02 10*3/uL [facility] EOS x10^3 0.14 0.06 - 0.53 10*3/uL [facility] BASO x10^3 <0.03 0.01 - 0.09 10*3/uL [facility] Specimen Blood - LINE, VENOUS Performing Organization Address City/[facility] Phone Number [facility] CLIA: [id number], [address] [place], [place] [phone] [facility] * Prothrombin Time (PT) / INR (09/28/2018 5:28 PM CDT) PROTIME PATIENT 11.1 10.1 - 12.6 Seconds [facility] INR 1.0Comment: Normal INR <1.1; [facility] Warfarin Therapeutic range 2.0 [facility] to 3.0 or 2.5 to 3.5, [facility] depending upon the indications. Specimen Blood - LINE, VENOUS Performing Organization Address City/[facility]ode Phone Number [facility] CLIA: [id number], [address] [place], [place] [phone] [facility] * aPTT (09/28/2018 5:28 PM CDT) APTT Patient 33 26 - 36 Seconds [facility] Specimen Blood - LINE, VENOUS Performing Organization Address City/[facility]/Zipcode Phone Number [facility] CLIA: [id number], [address] [place] [address] [facility] * Troponin I (09/28/2018 5:28 PM CDT) TROPONIN I 0.001 <=0.034 ng/mL [facility] Specimen Blood - LINE, VENOUS Narrative Performed At Equal or Less than 0.034 ng/ml---Normal [facility] Note: Cardiac troponin begins to rise 3-4 hours after the onset of ischemia. [facility] Repeat in 4-6 hours if the sample was drawn within 3-4 hours of the onset of the JUPITER symptom and found normal. Between 0.035 and [...] biotin. Performing Organization Address City/State/Zipcode Phone Number [facility] CLIA: [id number], [address] [place] [address] [facility] * Basic Metabolic Panel (NA, K, CL, CO2, GLUCOSE, BUN, CREATININE, CA) (09/28/2018 5:28 PM CDT) Pathologist [facility] NA 137 135 - 145 mmol/L [facility] K 3.6 3.5 - 5.0 mmol/L [facility] CL 103 98 - 108 mmol/L [facility] CO2 TOTAL 25 23 - 31 mmol/L [facility] AGAP 9 2 - 16 [facility] BUN 13 7 - 23 mg/dL [facility] GLUCOSE 157 (H) 70 - 110 mg/dL [facility] CREATININE 0.88 0.60 - 1.25 mg/dL [facility] CALCIUM 9.1 8.6 - 10.6 mg/dL [facility] eGFR 92.4 mL/min/1.73m2 [facility] Calculation SERVICES-CLEAR (Non-[facility]) eGFR 112.0 mL/min/1.73m2 [facility] Calculation SERVICES-CLEAR ([facility]) Specimen Blood - LINE, VENOUS Narrative Performed At [facility] of Glomerular Filtration Rate (GFR) and Staging of Kidney Disease* [facility] + + + + SERVICES- HAPPY JACK | GFR (mL/min/1.73 m2)| With Kidney Damage|Without [...] tests). Performing Organization Address City/State/Zipcode Phone Number [facility] CLIA: [id number], [address] [place] [address] [facility] documented in this encounter Visit Diagnoses Diagnosis Chest pain, unspecified type - Primary Acute on chronic congestive heart failure, unspecified heart failure type documented in this encounter Administered Medications Action Date Dose Rate Site Medication Order MAR Action 09/29/2018 9:23 AM CDT 81 mg aspirin chewable tablet 81 mg Given 81 mg, Oral, DAILY, First dose on Sat09/29/18 at 0900, Until Discontinued, Routine 09/29/2018 3:37 PM CDT 80 mg atorvastatin (LIPITOR) tablet 80 mg Given 80 mg, Oral, QPM, First dose on Sat09/29/18 at 1700, Until Discontinued, Routine, produce service team member approving Restricted medication: GLENN SHINE 09/29/2018 9:23 AM CDT 125 mcg digoxin (LANOXIN) tablet 125 mcg Given 125 mcg, Oral, DAILY, First dose on Sat09/29/18 at 0900, Until Discontinued 09/29/2018 9:23 AM CDT 40 mg DULoxetine (CYMBALTA) capsule 40 mg Given 40 mg, Oral, BID, First dose on Sat09/29/18 at 0800, Until Discontinued, Routine 09/29/2018 3:37 PM CDT 40 mg furosemide (LASIX) injection 40 mg Given 40 mg, Slow IV Push, Q8H, First dose on Sat09/29/18 at 0130, Until Discontinued, Routine 40 mg Given 09/29/2018 6:12 AM CDT 40 mg Given 09/29/2018 1:46 AM CDT 09/29/2018 9:30 AM CDT 20 Units Left Upper Arm-SC insulin glargine (LANTUS U-100) Given injection 20 Units 20 Units, Subcutaneous, Q12H, First dose on Sat09/29/18 at 0800, Until Discontinued, Routine 09/29/2018 9:23 AM CDT 30 mg isosorbide mononitrate (IMDUR) 24 hr Given tablet 30 mg 30 mg, Oral, DAILY, First dose on Sat09/29/18 at 0900, Until Discontinued, Routine 09/29/2018 9:23 AM CDT 10 mEq KCL (KLOR-CON M10) tablet 10 mEq Given 10 mEq, Oral, BID, First dose on Sat09/29/18 at 0800, Until Discontinued, Routine 09/29/2018 9:23 AM CDT 25 mg lamoTRIgine (LAMICTAL) tablet 25 mg Given 25 mg, Oral, BID, First dose on Sat09/29/18 at 0800, Until Discontinued 09/29/2018 9:23 AM CDT 500 mg levETIRAcetam (KEPPRA) tablet 500 mg Given 500 mg, Oral, BID, First dose on Sat09/29/18 at 0800, Until Discontinued, Routine 09/29/2018 11:39 AM CDT 50 mg metoprolol tartrate (LOPRESSOR) tablet Given 50 mg 50 mg, Oral, BID, First dose on Sat09/29/18 at 1000, Until Discontinued, Routine 09/29/2018 5:40 PM CDT 4 mg morpHINE injection 4 mg Given 4 mg, Slow IV Push, Q4HPRN, Starting Sat09/29/18 at 0045, Until Discontinued, Routine, Pain (scale 7-10) 4 mg Given 09/29/2018 11:39 AM CDT 4 mg Given 09/29/2018 6:24 AM CDT 09/29/2018 9:23 AM CDT 40 mg pantoprazole (PROTONIX) EC tablet 40 mg Given 40 mg, Oral, DAILY, First dose on Sat09/29/18 at 0900, Until Discontinued, Routine 09/29/2018 9:23 AM CDT 100 mg pregabalin (LYRICA) capsule 100 mg Given 100 mg, Oral, BID, First dose on Sat09/29/18 at 0800, Until Discontinued, Routine, produce service team member approving Restricted medication: GLENN SHINE 09/29/2018 9:23 AM CDT 20 mg rivaroxaban (XARELTO) 20 mg tablet 20 mg Given 20 mg, Oral, DAILY, First dose on Sat09/29/18 at 0900, Until Discontinued, Routine, produce service team member approving Restricted medication: GLENN SHINE Action Date Dose Rate Site Medication Order MAR Action 09/28/2018 6:46 PM CDT 20 mg furosemide (LASIX) injection 20 mg Given 20 mg, IV Push, ONCE, 1 dose, 09/28/18 at 1945, DEBBIE 09/29/2018 6:13 AM CDT 40 mEq KCL (KLOR-CON M20) tablet 40 mEq Given 40 mEq, Oral, ONCE, 1 dose, Sat09/29/18 at 0615, Routine 09/29/2018 6:13 AM CDT 4 g magnesium sulfate in water 4 gram/50 mL New Bag (8 %) IV Piggyback 4 g 4 g, IV Piggyback, ONCE, 1 dose, 09/29/18 at 0545, Routine 09/28/2018 6:46 PM CDT 4 mg morpHINE injection 4 mg Given 4 mg, Slow IV Push, ONCE, 1 dose, [place] 09/28/18 at 1945, STAT 09/29/2018 11:30 AM CDT 3 mL perflutren protein-A microsphr (OPTISON) Given injection 3 mL 3 mL, IV Push, ONCE, 1 dose, [facility] 09/29/18 at 1630, Routine documented in this encounter Insurance Type Payer Benefit Subscriber ID Effective Phone Address Plan / Dates Group Medicaid [facility] xxxxxxxxx 2018-P PLAN - MANAGED MEDICAID STAR PLUS resent documented as of this encounter
[2018-10-22] MEDS ORDERED: SODIUM CHLORIDE 0.9% 1000ML 1,000 ML IV STA (18:31)
[2018-10-22] MEDS ORDERED: HYDROMORPHONE 1MG/1ML INJ IV ONE (18:31)
[2018-10-22] MEDS ORDERED: PROMETHAZINE HCL (IM) 25 MG/ML VIAL IV STA (18:31)
[2018-10-22] MEDS ORDERED: PANTOPRAZOLE 40 MG 10ML VIAL IV ONE (18:31)
[2018-10-22] MEDS ORDERED: PROMETHAZINE 25MG/SOD CHL 0.9% 50 ML IV ONE (18:45)
[2018-10-22] MEDS ORDERED: PROMETHAZINE HCL (IM) 25 MG/ML VIAL IV PRN (18:45)
[2018-10-22] MEDS ORDERED: METOPROLOL TARTRATE INJ 1 MG/ML VIAL IV ONE (18:45)
--- OUTSIDE RECORDS SUMMARY | 2018-10-22 18:59 | XMS REPORT | Clinical Summary ---
Author Author [facility] Organization [facility] Address Unknown Phone Unavailable Care Team Providers Care Upward Bound Director Name Role Phone PCP Unavailable Allergies Comments [...] Comments Vital Sign 117/74 04/24/2018 2:06 PM [facility] Blood Pressure 81 04/24/2018 2:06 PM [facility] Pulse - - Temperature - - Respiratory Rate 96% 04/24/2018 2:06 PM [facility] Oxygen Saturation - - Inhaled Oxygen Concentration - - Weight - - Height - - Body Mass Index Plan of Treatment Health Maintenance Due Date Last Done Comments IMM Influenza Seasonal 11/18/2018Nov to April (>/=19 yrs) Results Not on fileafter 10/21/2017 Insurance Type Payer Benefit Subscriber ID Effective Phone Address Plan / Dates Group [facility] xxxxxxxxx 2017- [phone] COMMUNITY Present [id number] [place] [address] Advance Directives Date Inactivated Comments Code Status Date Activated 07/04/2010 9:05 PM Full Code 07/03/2010 10:11 AM
--- OUTSIDE RECORDS SUMMARY | 2018-10-22 19:01 | XMS REPORT | Clinical Summary ---
Author Author Eliel Sikh Organization [place] [facility] Address Unknown Phone Unavailable Care Team Providers Care Bend Up Name Role Phone Asked, No Pcp PCP [...] 09/25/2018 Alexandre Blackmon DO Keller, Jason James, [employer] Contusion of left great toe without damage to nail, initial encounter (Primary Dx); Chronic chest pain; Personality disorder (HCC) 05/17/2018 Emergency Emergency Medicine Jayden Broderick MD Alberto, Paul, MD Chest pain, unspecified type (Primary Dx) 05/01/2018 Hospital General Surgery - Encounter 05/04/2018 Patel Hammonds MD Cv right heart cath [45808 (CPT)] 03/10/2018 Surgery Procedural Cardiology Behzad Samano MD Yerramadha, Muralidhar Reddy, MD Acute on chronic diastolic congestive heart failure (HCC) (Primary Dx); Chest pain, unspecified type; PALLAVI (obstructive sleep apnea); Morbid obesity due to excess calories (HCC); Precordial pain; Bilateral swelling of feet 03/03/2018 Hospital General Surgery - Encounter 03/10/2018 Farzad Santos MD CV LEFT HEART CATH LV GRAM WITH CORS [[id number] (CPT)] 12/24/2017 Surgery Procedural Cardiology Zaid Russell [...] Lot Implanted Type Area Manufactur er 08/17/2018 [id number] / / [id number] Device Vasclr Clsr Vasoactive Cardiovasc Right: Groin Intstnl Peptd 6fr Angio-Seal - ular [id number] Implants Implanted: Qty: 1 on 12/24/2017 by Farzad Santos MD at [facility] . Description:plate in the neck Procedures Comments [...] RIGHT HEART CATH Routine 03/10/2018 3:08 PM POWDER TRUCK DRIVER POC CG8, ARTERIAL Routine 03/10/2018 2:55 PM POWDER TRUCK DRIVER POC CG8, ARTERIAL Routine 03/10/2018 2:44 PM POWDER TRUCK DRIVER ESTIMATED GFR Routine 03/10/2018 7:10 AM POWDER TRUCK DRIVER HC COMPLETE BLD COUNT Routine 03/10/2018 W/AUTO DIFF 7:10 AM POWDER TRUCK DRIVER BASIC METABOLIC PANEL Routine 03/10/2018 7:10 AM POWDER TRUCK DRIVER TYPE AND SCREEN Routine 03/10/2018 12:10 AM POWDER TRUCK DRIVER ARTERIAL BLOOD GAS Routine 03/08/2018 5:01 PM POWDER TRUCK DRIVER ESTIMATED GFR Routine 03/07/2018 5:50 AM POWDER TRUCK DRIVER MAGNESIUM LEVEL Routine 03/07/2018 5:50 AM POWDER TRUCK DRIVER BASIC METABOLIC PANEL Routine 03/07/2018 5:50 AM POWDER TRUCK DRIVER XR CHEST 1 VW PORTABLE Routine 03/06/2018 6:45 AM POWDER TRUCK DRIVER ESTIMATED GFR Routine 03/06/2018 5:05 AM POWDER TRUCK DRIVER MAGNESIUM LEVEL Routine 03/06/2018 5:05 AM POWDER TRUCK DRIVER BASIC METABOLIC PANEL Routine 03/06/2018 5:05 AM POWDER TRUCK DRIVER ESTIMATED GFR Routine 03/05/2018 4:16 AM POWDER TRUCK DRIVER MAGNESIUM LEVEL Routine 03/05/2018 4:16 AM POWDER TRUCK DRIVER BASIC METABOLIC PANEL Routine 03/05/2018 4:16 AM POWDER TRUCK DRIVER ESTIMATED GFR Routine 03/04/2018 6:08 PM POWDER TRUCK DRIVER MAGNESIUM LEVEL Routine 03/04/2018 6:08 PM POWDER TRUCK DRIVER BASIC METABOLIC PANEL Routine 03/04/2018 6:08 PM POWDER TRUCK DRIVER GRAM STAIN STAT 03/04/2018 8:34 AM POWDER TRUCK DRIVER URINE CULTURE STAT 03/04/2018 8:34 AM POWDER TRUCK DRIVER URINALYSIS SCREEN AND STAT 03/04/2018 MICROSCOPY, WITH REFLEX 7:40 AM POWDER TRUCK DRIVER TO CULTURE ESTIMATED GFR Timed 03/04/2018 3:10 AM POWDER TRUCK DRIVER BASIC METABOLIC PANEL Timed 03/04/2018 3:10 AM POWDER TRUCK DRIVER HC COMPLETE BLD COUNT Timed 03/04/2018 W/AUTO DIFF 3:10 AM POWDER TRUCK DRIVER TROPONIN Timed 03/04/2018 3:10 AM POWDER TRUCK DRIVER ECG 12-LEAD Routine 03/04/2018 1:27 AM POWDER TRUCK DRIVER TROPONIN Timed 03/04/2018 12:31 AM POWDER TRUCK DRIVER XR CHEST 1 VW PORTABLE STAT 03/03/2018 9:26 PM POWDER TRUCK DRIVER ECG 12-LEAD STAT 03/03/2018 9:08 PM POWDER TRUCK DRIVER D-DIMER STAT 03/03/2018 9:08 PM POWDER TRUCK DRIVER ESTIMATED GFR STAT 03/03/2018 9:08 PM POWDER TRUCK DRIVER B NATRIURETIC PEPTIDE STAT 03/03/2018 9:08 PM POWDER TRUCK DRIVER TROPONIN STAT 03/03/2018 9:08 PM POWDER TRUCK DRIVER COMPREHENSIVE METABOLIC STAT 03/03/2018 PANEL 9:08 PM POWDER TRUCK DRIVER PARTIAL THROMBOPLASTIN STAT 03/03/2018 TIME (PTT) 9:08 PM POWDER TRUCK DRIVER PROTHROMBIN TIME WITH INR STAT 03/03/2018 9:08 PM POWDER TRUCK DRIVER HC COMPLETE BLD COUNT STAT 03/03/2018 W/AUTO DIFF 9:08 PM POWDER TRUCK DRIVER ECG ED PRELIMINARY Routine 03/03/2018 INTERPRETATION 9:06 PM POWDER TRUCK DRIVER CV LEFT HEART CATH LV Routine 12/24/2017 GRAM WITH CORS 10:16 AM POWDER TRUCK DRIVER ECG 12-LEAD Routine 12/24/2017 7:03 AM POWDER TRUCK DRIVER ESTIMATED GFR Routine 12/24/2017 5:00 AM POWDER TRUCK DRIVER HC COMPLETE BLD COUNT Routine 12/24/2017 W/AUTO DIFF 5:00 AM POWDER TRUCK DRIVER BASIC METABOLIC PANEL Routine 12/24/2017 5:00 AM POWDER TRUCK DRIVER TYPE AND SCREEN Routine 12/24/2017 5:00 AM POWDER TRUCK DRIVER PARTIAL THROMBOPLASTIN Routine 12/24/2017 TIME (PTT) 5:00 AM POWDER TRUCK DRIVER PROTHROMBIN TIME WITH INR Routine 12/24/2017 5:00 AM POWDER TRUCK DRIVER TROPONIN Timed 12/23/2017 6:57 PM POWDER TRUCK DRIVER NM MYOCARDIAL PERFUSION Routine 12/23/2017 STRESS ONLY 2:52 PM POWDER TRUCK DRIVER CV STRESS TEST NUCLEAR Routine 12/23/2017 CARDIO 2:52 PM POWDER TRUCK DRIVER TROPONIN Timed 12/23/2017 1:57 PM POWDER TRUCK DRIVER ECHOCARDIOGRAM 2D Routine 12/22/2017 COMPLETE W MMODE SPECTRAL 6:32 PM POWDER TRUCK DRIVER COLOR DOPPLER (88081) TROPONIN Timed 12/22/2017 10:58 AM POWDER TRUCK DRIVER TROPONIN Timed 12/22/2017 6:15 [address] ANGIOGRAM PE CHEST STAT 12/22/2017 5:48 AM POWDER TRUCK DRIVER ECG 12-LEAD STAT 12/22/2017 4:28 AM POWDER TRUCK DRIVER XR CHEST 1 VW PORTABLE STAT 12/22/2017 3:52 AM POWDER TRUCK DRIVER ESTIMATED GFR STAT 12/22/2017 3:36 AM POWDER TRUCK DRIVER B NATRIURETIC PEPTIDE STAT 12/22/2017 3:36 AM POWDER TRUCK DRIVER TROPONIN STAT 12/22/2017 3:36 AM POWDER TRUCK DRIVER LIPASE LEVEL STAT 12/22/2017 3:36 AM POWDER TRUCK DRIVER HEPATIC FUNCTION PANEL STAT 12/22/2017 3:36 AM POWDER TRUCK DRIVER BASIC METABOLIC PANEL STAT 12/22/2017 3:36 AM POWDER TRUCK DRIVER HC COMPLETE BLD COUNT STAT 12/22/2017 W/AUTO DIFF 3:36 AM POWDER TRUCK DRIVER ECG ED PRELIMINARY Routine 12/22/2017 INTERPRETATION 3:28 AM POWDER TRUCK DRIVER after 10/21/2017 Results * Estimated GFR (09/24/2018 8:52 PM CDT) Only the most recent of 15 results within the time period is included. Estimated GFR 71 mL/min/1.73 m2 [facility] Comment: JAIN CLEAR [facility] rpretation G1 >=90 Normal or high G2 60-89Mildly decreased [id number] Mildly to moderately decreased [id number] Moderately to severely decreased G4 15-29Severely decreased G5 <15Kidney failure The eGFR was calculated using the Chronic Kidney Disease Epidemiology Collaboration (CKD-EPI) equation. Interpretation is based on recommendations of the National Kidney Foundation-Kidney Disease Outcomes Quality Initiative (NKF-KDOQI) published in 2014. Specimen Plasma specimen Performing Organization Address City/State/Zipcode [place] [address] [place] [address] PATHOLOGY [facility] [place] [address] * Troponin (09/24/2018 8:52 PM CDT) Only the most recent of 13 results within the time period is included. Pathologist [facility] Troponin <0.006 0.000 - 0.040 ng/mL [facility] Comment: ANTONIO GLOVER [facility] changed methodology effective: 06/24/2018 at 10:00 am The new method has a 99th percentile cutoff of 0.040 ng/mL Specimen Plasma specimen Performing Organization Address [facility] Phone Number [facility] [place] [address] [place] [address] [address] * Partial thromboplastin time, activated (09/24/2018 8:52 PM CDT) Only the most recent of 4 results within the time period is included. Pathologist [facility] PTT 28.8 23.0 - 36.0 sec [facility] Comment: ANTONIO GLOVER PTT therapeutic range for [facility] unfractionated heparin is 61.0-112.0 seconds which corresponds to Anti-Xa 0.3-0.7 U/ml. Specimen Blood Performing Organization Address [facility] Phone Number [facility] [place] [address] [place] [address] [address] * Prothrombin time with INR (09/24/2018 8:52 PM CDT) Only the most recent of 4 results within the time period is included. Pathologist [facility] Prothrombin 12.5 11.5 - 14.5 sec [facility] INR 1.0 [facility] Comment: ANTONIO GLOVER The International Normalized [facility] Ratio (INR) is a therapeutic monitoring tool for patients who are stable on oral anticoagulant therapy. An INR of 2.0-3.0 is suggested for deep vein thrombosis/pulmonary embolism. Specimen Blood Performing Organization Address [facility] Phone Number [facility] [place] [address] [place] [address] PATHOLOGY [facility]IC[facility] [place] [address] * CBC with platelet and differential (09/24/2018 8:52 PM CDT) Only the most recent of 10 results within the time period is included. WBC 7.66 4.50 - 11.00 k/uL [facility] RBC 4.07 (L) 4.40 - 6.00 m/uL [facility] HGB 12.4 (L) 14.0 - 18.0 g/dL [facility] HCT 37.7 (L) 41.0 - 51.0 % [facility] MCV 92.6 82.0 - 100.0 fL [facility] MCH 30.5 27.0 - 34.0 pg [facility] MCHC 32.9 31.0 - 37.0 g/dL [facility] RDW - SD 46.9 37.0 - 55.0 fL [facility] MPV 9.8 8.8 - 13.2 fL [facility] Platelet count 203 150 - 400 k/uL [facility] Nucleated RBC 0.30 /100 WBC [facility] Neutrophils 61.5 39.0 - 69.0 % [facility] Lymphocytes 26.8 25.0 - 45.0 % [facility] Monocytes 6.7 0.0 - 10.0 % [facility] Eosinophils 2.7 0.0 - 5.0 % [facility] Basophils 0.5 0.0 - 1.0 % [facility] Specimen Blood Performing Organization Address City/State/Zipcode Phone Number [facility] DEPART[place] [address] [place] [phone] PATHOLOGY AND GENOMIC MEDICINE [place] [address] [address] * B natriuretic peptide (09/24/2018 8:52 PM CDT) Only the most recent of 5 results within the time period is included. BNP 25 0 - 100 pg/mL [facility] Specimen Blood Performing Organization Address City/[facility]/Zipcode Phone Number [facility] [place] [address] [place] [phone] PATHOLOGY AND GENOMIC MEDICINE [facility] [address] * Comprehensive metabolic panel (09/24/2018 8:52 PM CDT) Only the most recent of 3 results within the time period is included. Sodium 138 135 - 148 mEq/L [facility] Potassium 4.0 3.5 - 5.0 mEq/L [facility] Chloride 98 98 - 112 mEq/L [facility] CO2 29 24 - 31 mEq/L [facility] Anion gap 11@ANIO 7 - 15 mEq/L [facility] BUN 18 6 - 20 mg/dL [facility] Creatinine 1.20 0.70 - 1.20 mg/dL [facility] Glucose 268 (H) 65 - 99 mg/dL [facility] Calcium 9.2 8.3 - 10.2 mg/dL [facility] Protein 6.3 6.3 - 8.3 g/dL [facility] Comment: [facility] 4.6-7.0 g/dL 1 week 4.4-7.6 g/dL 7 months-1year 5.1-7.3 g/dL 1-2 years5.6-7 .5 g/dL >3 years6.0-8 .0 g/dL 18-150 6.3-8.3 g/dL Albumin 3.6 3.5 - 5.0 g/dL [facility] A/G ratio 1.3 0.7 - 3.8 [facility] Alkaline 121 40 - 129 U/L [facility] phosphatase [facility] AST 24 10 - 50 U/L [facility] ALT 21 5 - 50 U/L [facility] Total bilirubin 0.3 0.0 - 1.2 mg/dL [facility] Specimen Plasma specimen Performing Organization Address City/State/Zipcode [place] Number [place] [address] [place] [phone] PATHOLOGY AND GENOMIC MEDICINE [facility] [address] * XR Chest 1 Vw (09/24/2018 8:10 PM CDT) Specimen Narrative Performed At EXAMINATION:XR CHEST 1 VW [facility] CLINICAL HISTORY:Chest painacutenonspecificlow prob CAD COMPARISON: May 17, 2018 . IMPRESSION: 1.Heart size is normal. Median sternotomy wires overlie the midline. 2.Interval left basilar atelectasis. 3.No pneumothorax. 4.Osseous structures are intact. [id number] Procedure Note Hm Interface, Radiology Results Incoming - 09/24/2018 8:24 PM CDT EXAMINATION: XR CHEST 1 VW CLINICAL HISTORY: Chest pain acute nonspecific low prob CAD COMPARISON: May 17, 2018 . IMPRESSION: 1. Heart size is normal. Median sternotomy wires overlie the midline. 2. Interval left basilar atelectasis. 3. No pneumothorax. 4. Osseous structures are intact. [id number] Performing Organization Address City/[facility]/Zipcode Phone Number [facility] [address] [place] [address] * POC glucose (09/24/2018 7:35 PM CDT) Only the most recent of 10 results within the time period is included. POC glucose 299 (H) 65 - 99 mg/dL [facility] Comment: ANTONIO GLOVER Meter ID: [id number] [facility] Apartment Coordinator: Shun Garcia (TECH) Specimen Performing Organization Address City/[facility]/Zipcode [place] Number [place] [address] [place] [address] PATHOLOGY AND GENOMIC MEDICINE [facility] ANTONIO GLOVER [address] [place] [address] [facility] * ECG 12 lead (09/24/2018 7:32 PM CDT) Only the most recent of 8 results within the time period is included. Ventricular 95 [facility] MUSE rate Atrial rate 95 [facility] DC interval 152 [facility] QRSD interval 92 [...] Specimen Narrative Performed At Performing Organization Address [facility] [email or web address] Phone Number [facility] MUSE [address] [place] [address] * ECG ED Preliminary Interpretation - Not an Order (09/24/2018 7:32 PM CDT) Only the most recent of 5 results within the time period is included. Narrative Performed At Pepito Slade MD 09/25/2018 12:13 AM ECG ED Preliminary Interpretation - Not an Order Performed by: Pepito Slade MD Authorized by: Pepito Slade MD ECG reviewed by ED Physician in the absence of a photo mask inspector: yes (2007) Interpretation: Interpretation: normal Rate: ECG [...] included. Magnesium 1.7 1.6 - 2.6 mg/dL [facility] Specimen Plasma specimen Performing Organization Address [facility] Phone Number [address] [place] [address] PATHOLOGY AND GENOMIC MEDICINE [address] * Creatine kinase, total (CPK) (05/17/2018 6:15 PM CDT) Creatine kinase 114 39 - 308 U/L [facility] Specimen Plasma specimen Performing Organization Address [facility] [[email or web address] Phone Number [address] [place] [address] PATHOLOGY AND GENOMIC MEDICINE [address] * XR Toe 2+ Vw Left [...] of the IP joint of the hallux. [id number] Procedure Note Interface, Radiology Results Incoming - [...] of the IP joint of the hallux. [id number] Performing Organization Address [facility] [[email or web address] Phone Number [facility] [address] [place] [address] * XR Chest 2 Vw (05/17/2018 6:05 [...] process or active disease of the chest. [id number] Procedure Note Interface, Radiology Results Incoming - [...] process or active disease of the chest. [id number] Performing Organization Address City/[facility]/Zipcode Phone Number [facility] [address] [place] [address] * Basic metabolic panel (05/04/2018 5:35 AM CDT) Only the most recent of 12 results within the time period is included. Sodium 132 (L) 135 - 148 mEq/L [facility] Potassium 4.8 3.5 - 5.0 mEq/L [facility] Chloride 94 (L) 98 - 112 mEq/L [facility] CO2 26 24 - 31 mEq/L [facility] Anion gap 12@ANIO 7 - 15 mEq/L [facility] BUN 22 (H) 6 - 20 mg/dL [facility] Creatinine 1.10 0.70 - 1.20 mg/dL [facility] Glucose 318 (H) 65 - 99 mg/dL [facility] Calcium 9.9 8.3 - 10.2 mg/dL [facility] Specimen Plasma specimen Performing Organization Address [facility] [[email or web address] Phone Number [address] [place] [address] PATHOLOGY AND GENOMIC MEDICINE [address] * Hemoglobin A1c (05/03/2018 5:32 AM CDT) Hemoglobin A1C 6.5 (H) 4.0 - 6.0 % [facility] Comment: [facility] Less than 6% - Goal of therapy for Type II Diabetes Less than 7%-Goal of therapy for Type I Diabetes Less than 8%-Accepta ble control for Type I or Type II Diabetes Greater than 8%-Unacceptabl e control; action indicated. (ADA94) Specimen Blood Performing Organization Address [facility] [[email or web address] Phone Number [address] [place] [address] PATHOLOGY AND GENOMIC MEDICINE [address] * XR Chest 1 Vw Portable [...] is no acute skeletal finding. [id number] Procedure Note Interface, Radiology Results Incoming - [...] is no acute skeletal finding. [facility]-[id number] Performing Organization Address City/State/Zipcode Phone Number [facility] [address] [place] [address] * Cv pathology lab technician procedure (03/10/2018 3:08 PM POWDER TRUCK DRIVER) Specimen Narrative Performed At [employer] Lui Lopez 1970 [id number] 03/10/18 Indications: Pulmonary hypertension Procedures: RHC with cardiac output Closure: Manual compression Access site: Right internal jugular vein Procedure details: Risks and benefits were discussed with the patient, informed consent was obtained. Patient was brought to the pathology lab technician in a fasting state and prepped in [...] 03/10/18 Patel Hammonds MD Performing Organization Address City/[facility]/Zipcode Phone Number [facility] [address] [place] [address] * POC CG8, arterial (03/10/2018 2:55 PM POWDER TRUCK DRIVER) Only the most recent of 2 results within the time period is included. Pathologist [facility] POC sodium 140 135 - 148 mmol/L [facility] POC potassium 3.6 3.5 - 5.0 mmol/L [facility] POC hematocrit 38 (L) 41 - 51 % [facility] Ionized 1.17 1.11 - 1.32 mmol/L [facility] arterial, [facility] pH, arterial, 7.37 7.35 - 7.45 [facility] pCO2, arterial, 47 (H) 35 - 45 mm Hg [facility] pO2, arterial, 30 (LL)Comment: MD/RN aware of 80 - 90 mm Hg [facility] POC results! [facility] O2 saturation, 54 (L) 95 - 100 % [facility] arterial, [facility] Base excess, 2 -2 - 2 mmol/L [facility] arterial, [facility] Bicarbonate, 27.4 21.0 - 28.0 mmol/L [facility] [place] CO2 calculated, 29 24 - 31 mmol/L [facility] arterial, [facility] POC glucose 109 (H) 65 - 99 mg/dL [facility] Specimen Performing Organization Address [facility] Phone Number [facility] [place] [id number] [place] [address] [place] [address] PATHOLOGY AND GENOMIC MEDICINE [address] [place] [address] [facility] * Type and screen (03/10/2018 12:10 AM POWDER TRUCK DRIVER) Only the most recent of 2 results within the time period is included. ABO grouping O [facility] Rh type NEG [facility] Antibody screen NEG [facility] Specimen Blood Performing Organization Address City/[facility] [email or web address] Phone Number [facility] [place] [id number] [place] [address] [place] [address] PATHOLOGY AND GENOMIC MEDICINE [address] * Arterial blood gas (03/08/2018 5:01 PM POWDER TRUCK DRIVER) [facility] pH, arterial 7.44 7.35 - 7.45 [facility] pCO2, arterial 39 35 - 45 mmHg [facility] pO2, arterial 78 (L) 80 - 90 mmHg [facility] Bicarbonate, 26.5 21.0 - 28.0 mmol/L [facility] Base excess, 3 (H) -2 - 2 mEq/L [facility] O2 saturation, 97 95 - 100 % [facility] FiO2, inspired Unknown % [facility] O2% [facility] Specimen Blood Performing Organization Address [facility] [[email or web address] Phone Number [facility] [address] [place] [address] PATHOLOGY AND GENOMIC MEDICINE [address] * Gram stain (03/04/2018 8:34 AM POWDER TRUCK DRIVER) [facility] Gram stain Moderate WBC's [facility] result Few Gram positive rods [facility] Comment: HOSPITAL Specimen Information Specimen Source: Urine Specimen Site: Catheterized Specimen Urine - Catheterized Performing Organization Address City/[facility] [[email or web address] Phone Number [facility] [place] [address] PATHOLOGY AND GENOMIC MEDICINE [address] * Urine culture (03/04/2018 8:34 AM POWDER TRUCK DRIVER) [facility] Urine culture Mixed erendira <=10-3 col/cc [facility] isolate Comment: [facility] Specimen Information HOSPITAL Specimen Source: Urine Specimen Site: Catheterized Specimen Urine - Catheterized Performing Organization Address City/[facility]/Zipcode Phone Number [facility] DEPARTMENT OF [address] [place] [address] PATHOLOGY AND GENOMIC MEDICINE [address] * Urinalysis screen and microscopy, with reflex to culture (03/04/2018 7:40 AM POWDER TRUCK DRIVER) Pathologist [facility] Specimen site Catheterized [facility] Color, UA Yellow [facility] Appearance, UA Clear [facility] Specific 1.024 1.001 - 1.035 [facility] gravity, UA [facility] pH, UA 5.0 5.0 - 8.5 [facility] Protein, UA Negative Negative [facility] Glucose, UA 3+ (A) Negative [facility] Ketones, UA Trace (A) Negative [facility] Bilirubin, UA Negative Negative [facility] Blood, UA Negative Negative [facility] Nitrite, UA Negative Negative [facility] Urobilinogen, Negative <2.0 [facility] Leukocyte Small (A) Negative [facility] esterase, [facility] Epithelial Few /HPF [facility] cells, [facility]A [facility] [facility] Round Few 0 - 1 /HPF [place] epithelial [address] cells, [facility] WBC, UA 6-10 (H) 0 - 1 /HPF [facility] RBC, UA 0-5 0 - 5 /HPF [facility] Bacteria, UA None seen None seen [facility] Yeast, UA None seen [facility] Yeast with None seen [place] Specimen Urine Performing Organization Address City/State/Zipcode [place] [address] [place] [address] PATHOLOGY AND GENOMIC MEDICINE [facility] [address] [place] [address] [facility] * D-dimer (03/03/2018 9:08 PM POWDER TRUCK DRIVER) [facility] D-dimer <0.27 0.00 - 0.40 ug/mL [place] Comment: [facility] Units are ug/ml Fibrinogen [facility] Equivalent Unit. When combined with low clinical [...] Blood Performing Organization Address City/State/Zipcode Phone Number [place] [address] [place] [address] PATHOLOGY AND GENOMIC MEDICINE [facility] [address] [place] [address] [facility] * Cv pathology lab technician procedure (12/24/2017 10:16 AM POWDER TRUCK DRIVER) Specimen Narrative Performed At AMADEO Santos MD Physician Signed CardiologyBrief Op Note Date of Service: 12/24/2017 8:53 AM Case Time: 12/24/2017 8:53 AM Surgeon: Farzad Santos MD Procedure: CV LEFT HEART CATH LV GRAM WITH CORS Location: [facility] Sport Intern Invasive Location []Hide copied text []Hover for attribution information Cardiac Catheterization Operative Note Lui Lopez,[id number] y.o. male 12/24/2017; [facility] LUBE MAN RM 1 Procedure(s): CV LEFT HEART CATH [...] consent patient was brought in to the pathology lab technician and was prepped and draped in a [...] Implant Name Type Inv. Item Serial No. Manager Utilization Lot No. LRB No. Used Action DEVICE VASCLR CLSR VASOACTIVE INTSTNL PEPTD 6FR ANGIO-SEAL - [id number] Cardiovascular Implants DEVICE VASCLR CLSR VASOACTIVE INTSTNL PEPTD 6FR ANGIO-SEAL [id number] Right 1 Implanted Impression: Normal coronaries Elevated LVEDP Farzad Santos MD Date: 12/24/2017Time: 10:06 AM Performing Organization Address [facility] Phone Number [facility] [address] [place] [address] * Cv stress test (12/23/2017 2:52 PM POWDER TRUCK DRIVER) Resting BP [facility] Protocol Name CHRISTA [...] ECG report.-Electronically Signed By Tom LOGAN, Farzad ([id number]), editorial cartoonist Merline Palmer ([id number]) on 12/24/2017 10:25:10 AM Specimen Performing Organization Address [facility] Phone Number [facility] MUSE [address] [place] [address] * Nm myocardial perfusion (12/23/2017 2:52 PM POWDER TRUCK DRIVER) Target HR 173.00 bpm [facility] Resting [...] Address City/State/Zipcode Phone Number [facility] [address] [place] [address] * Echocardiogram complete w contrast and 3D if needed (12/22/2017 6:32 PM POWDER TRUCK DRIVER) Velocity Ratio 0.99 m/s [facility] (V1/V2) [...] LV EF,BP 54.62 % [facility] [place],d A2C 8.13 cm [facility] [place],d A4C 8.20 cm [facility] [place],s A2C 6.33 cm [facility] [place],s A4C 6.75 cm [facility] LV [...] Address City/State/Zipcode Phone Number [facility] [address] [place] [address] * CT Angiogram Pe Chest (12/22/2017 5:48 AM POWDER TRUCK DRIVER) Specimen Narrative Performed At EXAMINATION: CT ANGIOGRAM [...] enlarged. This is incompletely included in the [id number]-vm-bdmz. 9. Other Findings: None SUMMARY: 1. No CT scan evidence of acute pulmonary embolus. 2.Interstitial pulmonary congestion and mild pulmonary edema. No acute infiltrates. [facility]-[id number] Procedure Note Interface, Radiology Results [facility] - 12/22/2017 6:02 AM POWDER TRUCK DRIVER EXAMINATION: CT ANGIOGRAM PE CHEST CLINICAL HISTORY: [...] enlarged. This is incompletely included in the [id number]-oj-[id number]. 9. Other Findings: None SUMMARY: 1. No CT scan evidence of acute pulmonary embolus. 2. Interstitial pulmonary congestion and mild pulmonary edema. No acute infiltrates. [facility]-[id number] Performing Organization Address City/[facility]/Zipcode Phone Number [facility] [address] [place] [address] * Lipase level (12/22/2017 3:36 AM POWDER TRUCK DRIVER) Pathologist [facility] Lipase 30 13 - 60 U/L [facility] DEPARTMENT OF PATHOLOGY AND GENOMIC MEDICINE Specimen Plasma specimen Performing Organization Address City/[facility]/[place] [address] PATHOLOGY AND [facility] * Hepatic function panel (12/22/2017 3:36 AM POWDER TRUCK DRIVER) Pathologist [facility] Albumin 4.2 3.5 - 5.0 g/dL [facility] DEPARTMENT OF PATHOLOGY AND GENOMIC MEDICINE Total bilirubin 0.3 0.0 - 1.2 mg/dL [facility] DEPARTMENT OF PATHOLOGY AND GENOMIC MEDICINE Bilirubin <0.1 0.0 - 0.3 mg/dL [facility] direct DEPARTMENT OF PATHOLOGY AND GENOMIC MEDICINE Alkaline 86 40 - 129 U/L [facility] phosphatase DEPARTMENT OF PATHOLOGY AND [facility] Protein 7.2 6.3 - 8.3 g/dL [facility] Comment: DEPARTMENT OF PATHOLOGY AND 4.6-7.0 g/dL GENOMIC MEDICINE week 4.4-7.6 g/dL 7 months-1year 5.1-7.3 g/dL 1-2 years5.6-7 .5 g/dL >3 years6.0-8 .0 g/dL 18-150 6.3-8.3 g/dL ALT 24 5 - 50 U/L [facility] DEPARTMENT OF PATHOLOGY AND GENOMIC MEDICINE AST 35 10 - 50 U/L [facility] DEPARTMENT OF PATHOLOGY AND GENOMIC MEDICINE Specimen Plasma specimen Performing Organization Address City/State/Zipcode Phone [place] [address] [place] [address] PATHOLOGY AND GENOMIC MEDICINE after 10/21/2017 Insurance Type Payer Benefit Subscriber ID Effective Phone Address Plan / Dates Group [facility] MEDICAID [facility] xxxxxxxxx 2015- COMM STAR+ Present VIMAL Advance Directives For more information, please contact: [phone] Patient Internet Developer Explanation Type Date Recorded Advance Directives, 09/10/2015 12:22 AM Living Will and Medical Power of [place] [employer] Advance Directives, 09/10/2015 6:44 PM Living Will and Medical Power of [place] [employer] Advance Directives, 09/28/2015 11:18 PM Living Will and Medical Power of [place] [employer] Advance Directives, 09/29/2015 5:04 PM Living Will and Medical Power of [place] [employer] Advance Directives, 09/24/2018 7:54 PM Living Will and Medical Power of [place] [employer] Date Inactivated Comments Code Status Date Activated [...]
--- OUTSIDE RECORDS SUMMARY | 2018-10-22 19:01 | XMS REPORT | Clinical Summary ---
Author Author [facility] Organization [facility] [email or web address] [facility] Address Unknown Phone Unavailable Care Team Providers Care Housing Inspector Name Role Phone Janet Stewart MD PCP Unavailable Allergies Comments Active Allergy Reactions Severity Noted Date Ampicillin Rash Low 01/21/2016 Baclofen 12/25/2016 Prochlorperazine 01/05/2017 Edisylate Cyclobenzaprine 12/25/2016 Caused nausea and Syncope ( When he passed out he broke his neck ) [place] Analogues 01/05/2017 Metoclopramide Hcl Rash Low 01/22/2016 [...] Plan / Group MEDICAID - MEDICAID [facility] xxxxxxxxx Medicaid CARE COMM STAR Contracted PLAN
--- OUTSIDE RECORDS SUMMARY | 2018-10-22 19:02 | XMS REPORT | Continuity of Care Document ---
Author Author [employer] Organization [employer] Address Unknown Phone Unavailable Care Team Providers [employer] Job Titles Name Role Phone [place] [employer] Unavailable Unavailable Problems Problem Status [...] [place] Chest pain Active 07/03/2010 09/03/2018 [facility] Pulmonary embolus Active 07/03/2010 09/03/2018 [facility] Syncope Active Problem 05/29/2018 [facility] TIA Active Problem 05/29/2018 [facility] Medications Medication Details Route Status Patient Instructions Ordering Provider Order Date Source Aspirin (Aspir 81) 81 Mg Tablet.dr Alvarenga Active [place] 04/10/2018 [facility] Hydroxyzine Hcl 25 Mg Tablet, 50 Mg Oral Every 8 Hours as needed for Anxiety Active 02/09/2018 [facility] Prednisone 10 Mg Tab, 10 Mg Oral Twice A Day Active 02/09/2018 [facility] clopidogrel (PLAVIX) 75 mg tablet Take 1 [...] Atorvastatin Calcium 20 Mg Tablet Bedtime Active [facility] Carisoprodol (Soma) 350 Mg Tablet Every 8 Hours as needed for Cramps Active [facility] Clopidogrel Bisulfate (Plavix) 75 Mg Tablet Daily Active [facility] Doxepin Hcl 25 Mg Capsule Qhs Active [facility] Duloxetine Hcl (Cymbalta) 30 Mg Capsule.dr Alvarenga Active [facility] Furosemide 40 Mg Tablet Twice A Day Active [facility] Hydroxyzine Hcl 25 Mg Tablet Every 8 Hours as needed for Anxiety Active [facility] Lamotrigine (Lamictal) 25 Mg Tab Twice A Day Active [facility] Levetiracetam (Keppra) 500 Mg Tablet Twice A Day Active [facility] Lorazepam 0.5 Mg Tablet Every 8 Hours as needed for Anxiety Active [facility] Metoprolol Tartrate 25 Mg Tablet Twice A Day Active [facility] Mirtazapine 15 Mg Tab Qhs Active [facility] Pantoprazole Sodium (Protonix) 40 Mg Tablet.dr Alvarenga Active [facility] Prednisone 10 Mg Tab Twice A Day Active [facility] Pregabalin (Lyrica) 50 Mg Cap Twice A Day Active [facility] Promethazine Hcl 25 Mg Tablet Every 6 Hours as needed for Nasal Congestion Active [facility] Quetiapine Fumarate 25 Mg Tablet Every Morning Active [facility] Quetiapine Fumarate 100 Mg Tablet Qhs Active [facility] Rivaroxaban (Xarelto) 20 Mg Tablet Daily Active [facility] Trazodone Hcl 50 Mg Tablet Qhs Active [facility] Atorvastatin Calcium 20 Mg Tablet Bedtime Active [facility] Carisoprodol (Soma) 350 Mg Tablet Every 8 Hours as needed for Cramps Active [facility] Clopidogrel Bisulfate (Plavix) 75 Mg Tablet Daily Active [facility] Doxepin Hcl 25 Mg Capsule Qhs Active [facility] Duloxetine Hcl (Cymbalta) 30 Mg Capsule. Twice A Day Active [facility] Fenofibrate (Tricor) 145 Mg Tab Daily Active [facility] Furosemide 40 Mg Tablet Twice A Day Active [facility] Isosorb Lyman/Imdur Daily Active [facility] Lamotrigine (Lamictal) 25 Mg Tab Twice A Day Active [facility] Levetiracetam (Keppra) 500 Mg Tablet Twice A Day Active [facility] Lorazepam 0.5 Mg Tablet Every 8 Hours as needed for Anxiety Active [facility] Meloxicam (Mobic) 15 Mg Tablet Daily Active [facility] Metformin Hcl 1,000 Mg Tablet Twice A Day Active [facility] Metoprolol Tartrate 25 Mg Tablet Twice A Day Active [facility] Mirtazapine 15 Mg Tab Qhs Active [facility] Pantoprazole Sodium (Protonix) 40 Mg Tablet. Daily Active [facility] Pregabalin (Lyrica) 50 Mg Cap Twice A Day Active [facility] Promethazine Hcl 25 Mg Tablet Every 6 Hours as needed for Nasal Congestion Active [facility] Quetiapine Fumarate 25 Mg Tablet Every Morning Active [facility] Quetiapine Fumarate 100 Mg Tablet Qhs Active [facility] Ranolazine (Ranexa) 500 Mg Tabsr Twice A Day Active [facility] Risperidone (Risperdal) 1 Mg Tablet Twice A Day Active [facility] Rivaroxaban (Xarelto) 20 Mg Tablet Daily Active [facility] Trazodone Hcl 50 Mg Tablet Qhs Active [facility] Allergies, Adverse Reactions, Alerts Substance Category Reaction Severity Reaction type Status Date Reported Comments Source Morphine Propensity to adverse reactions to drug Active 07/03/2010 [facility] Ondansetron Hcl (Pf) Propensity to adverse reactions to drug Active 07/03/2010 [facility] Green Vegetables Unknown Allergy to Substance Active 04/20/2017 [facility] Margerine Unknown Allergy to Substance Active 04/20/2017 [facility] Paper Tape Unknown Allergy to Substance Active 04/20/2017 [facility] Ampicillin Unknown Allergy to Substance Active 04/10/2018 [facility] Metoclopramide Unknown Allergy to Substance Active 04/10/2018 [facility] Ondansetron Unknown Allergy to Substance Active 04/10/2018 [facility] Tramadol EARS RINGING Intermediate Allergy to Substance Active 04/10/2018 [facility] Gabapentin Mild Allergy to Substance Active 04/10/2018 [facility] Ketorolac RASH Intermediate Allergy to Substance Active 04/10/2018 [facility] Immunizations No Data Provided for This Section Results Order Name Results Value Reference Range Date Interpretation Comments Source Urine color determination YELLOW YELLOW 05/29/2018 [facility] Urine clarity CLEAR CLEAR 05/29/2018 [facility] Specific gravity of Urine by Test strip 1.010 1.010 - 1.025 05/29/2018 [facility] Urine pH measurement by automated test strip 7 5 - 7 05/29/2018 [facility] Urine leukocyte esterase detection by dipstick NEGATIVE NEGATIVE 05/29/2018 [facility] Urine nitrite detection NEGATIVE NEGATIVE 05/29/2018 [facility] Urine protein measurement by test strip (mass/volume) NEGATIVE NEGATIVE 05/29/2018 [facility] Urine glucose detection NEGATIVE NEGATIVE 05/29/2018 [facility] Urine ketones detection by automated test strip NEGATIVE NEGATIVE 05/29/2018 [facility] Urine opiates screening test NEGATIVE NEGATIVE 05/29/2018 [facility] Barbiturates screen, urine NEGATIVE NEGATIVE 05/29/2018 [facility] Urine phencyclidine detection by screening method NEGATIVE NEGATIVE 05/29/2018 [facility] Urine amphetamines detection by screen method > 1000 ng/mL NEGATIVE NEGATIVE 05/29/2018 [facility] Urine Methamphetamines Screen NEGATIVE NEGATIVE 05/29/2018 [facility] Urine benzodiazepines detection by screening method NEGATIVE NEGATIVE 05/29/2018 [facility] Urine cocaine measurement (mass/volume) NEGATIVE NEGATIVE 05/29/2018 [facility] Urine cannabinoids detection by screening method NEGATIVE NEGATIVE 05/29/2018 [facility] Urine methadone screen NEGATIVE NEGATIVE 05/29/2018 [facility] Urine urobilinogen measurement by test strip (mass/volume) 0.2 0.2 - 1 05/29/2018 [facility] Urine total bilirubin measurement (mass/volume) NEGATIVE NEGATIVE 05/29/2018 [facility] Urine erythrocytes detection NEGATIVE NEGATIVE 05/29/2018 [facility] Automated urine sediment leukocyte count by microscopy (number/high power field) 0-5 0 - 5 05/29/2018 [facility] Erythrocytes detection in urine sediment by light microscopy 0-5 0 - 5 05/29/2018 [facility] Bacteria detection in urine sediment by light microscopy NONE NONE 05/29/2018 [facility] Epithelial cells detection in urine sediment by light microscopy RARE NONE 05/29/2018 [facility] Blood leukocytes automated count (number/volume) 11.14 4.8 - 10.8 05/29/2018 [facility] Blood erythrocytes automated count (number/volume) 4.74 4.3 - 5.7 05/29/2018 [facility] Blood hemoglobin measurement (moles/volume) 14.4 14.0 - 18.0 05/29/2018 [facility] Automated blood hematocrit (volume fraction) 42.5 38.2 - 49.6 05/29/2018 [facility] Automated erythrocyte mean corpuscular volume 89.7 81 - 99 05/29/2018 [facility] Automated erythrocyte mean corpuscular hemoglobin (mass per erythrocyte) 30.4 28 - 32 05/29/2018 [facility] Automated erythrocyte mean corpuscular hemoglobin concentration measurement (mass/volume) 33.9 31 - 35 05/29/2018 [facility] RDW BldCo-Rto 13.5 11.7 - 14.4 05/29/2018 [facility] Automated blood platelet count (count/volume) 262 140 - 360 05/29/2018 [facility] Automated blood segmented neutrophil count as percentage of total leukocytes 58.3 38.7 - 80.0 05/29/2018 [facility] Automated blood lymphocyte count as percentage ot total leukocytes 30.2 18.0 - 39.1 05/29/2018 [facility] Automated blood monocyte count as percentage of total leukocytes 7.1 4.4 - 11.3 05/29/2018 [facility] Automated blood eosinophil count as percentage of total leukocytes 1.7 0.0 - 6.0 05/29/2018 [facility] Automated blood basophil count as percentage of total leukocytes 0.4 0.0 - 1.0 05/29/2018 [facility] IM GRANULOCYTES % 2.3 0.0 - 1.0 05/29/2018 [facility] Automated blood neutrophil count 6.5 2.1 - 6.9 05/29/2018 [facility] Blood lymphocytes count (number/volume) 3.4 1.0 - 3.2 05/29/2018 [facility] Blood monocytes automated count (number/volume) 0.8 0.2 - 0.8 05/29/2018 [facility] Automated blood eosinophil count 0.2 0.0 - 0.4 05/29/2018 [facility] Automated blood basophil count (count/volume) 0.1 0.0 - 0.1 05/29/2018 [facility] Absolute Immature Granulocyte (auto 0.26 0 - 0.1 05/29/2018 [facility] Prothrombin time (PT) in platelet poor plasma by coagulation assay 12.9 11.9 - 14.5 05/29/2018 [facility] INR in Platelet poor plasma by Coagulation assay 0.92 05/29/2018 [facility] Activated partial thromboplastin time (aPTT) in platelet poor plasma bycoagulation assay 27.8 23.8 - 35.5 05/29/2018 [facility] Serum or plasma sodium measurement (moles/volume) 138 136 - 145 05/29/2018 [facility] Serum or plasma potassium measurement (moles/volume) 3.4 3.5 - 5.1 05/29/2018 [facility] Serum or plasma chloride measurement (moles/volume) 97 98 - 107 05/29/2018 [facility] Serum or plasma carbon dioxide, total measurement (moles/volume) 28 22 - 29 05/29/2018 [facility] Serum or plasma anion gap 16.4 8 - 16 05/29/2018 [facility] Serum or plasma urea nitrogen measurement (mass/volume) 19 7 - 26 05/29/2018 [facility] Serum or plasma creatinine measurement (mass/volume) 1.26 0.72 - 1.25 05/29/2018 [facility] Serum or plasma urea nitrogen/creatinine mass ratio 15 6 - 25 05/29/2018 [facility] Estimated glomerular filtration rate (GFR) determination > 60 60 05/29/2018 [facility] Glucose measurement 146 74 - 118 05/29/2018 [facility] Serum or plasma calcium measurement (mass/volume) 9.6 8.4 - 10.2 05/29/2018 [facility] Serum or plasma total bilirubin measurement (mass/volume) 0.4 0.2 - 1.2 05/29/2018 [facility] Aspartate Amino Transf (AST/SGOT) 18 5 - 34 05/29/2018 [facility] Serum or plasma alanine aminotransferase measurement (enzymatic activity/volume) 31 0 - 55 05/29/2018 [facility] Serum or plasma protein measurement (mass/volume) 7.0 6.5 - 8.1 05/29/2018 [facility] Serum or plasma albumin measurement (mass/volume) 3.8 3.5 - 5.0 05/29/2018 [facility] Plasma globulin measurement (mass/volume) 3.2 2.3 - 3.5 05/29/2018 [facility] Serum or plasma albumin/globulin mass ratio 1.2 0.8 - 2.0 05/29/2018 [facility] Serum or plasma alkaline phosphatase measurement (enzymatic activity/volume) 104 40 - 150 05/29/2018 [facility] BNP Bld-mCnc 34.1 0 - 100 05/29/2018 [facility] Serum or plasma creatine kinase measurement (enzymatic activity/volume) 97 30 - 200 05/29/2018 [facility] Serum or plasma creatine kinase MB measurement (mass/volume) 1.50 0 - 5.0 05/29/2018 [facility] Troponin I measurement by highly sensitive enzyme immunoassay 0.002 0 - 0.300 05/29/2018 [facility] Serum or plasma lipase measurement (enzymatic activity/volume) 41 8 - 78 05/29/2018 [facility] Serum or plasma amylase measurement (enzymatic activity/volume) 26 25 - 125 04/10/2018 [facility] Blood leukocytes automated count (number/volume) 6.31 4.8 - 10.8 04/10/2018 [facility] Blood erythrocytes automated count (number/volume) 4.45 4.3 - 5.7 04/10/2018 [facility] Blood hemoglobin measurement (moles/volume) 13.6 14.0 - 18.0 04/10/2018 [facility] Automated blood hematocrit (volume fraction) 40.6 38.2 - 49.6 04/10/2018 [facility] Automated erythrocyte mean corpuscular volume 91.2 81 - 99 04/10/2018 [facility] Automated erythrocyte mean corpuscular hemoglobin (mass per erythrocyte) 30.6 28 - 32 04/10/2018 [facility] Automated erythrocyte mean corpuscular hemoglobin concentration measurement (mass/volume) 33.5 31 - 35 04/10/2018 [facility] RDW BldCo-Rto 13.7 11.7 - 14.4 04/10/2018 [facility] Automated blood platelet count (count/volume) 226 140 - 360 04/10/2018 [facility] Automated blood segmented neutrophil count as percentage of total leukocytes 57.9 38.7 - 80.0 04/10/2018 [facility] Automated blood lymphocyte count as percentage ot total leukocytes 29.6 18.0 - 39.1 04/10/2018 [facility] Automated blood monocyte count as percentage of total leukocytes 9.0 4.4 - 11.3 04/10/2018 [facility] Automated blood eosinophil count as percentage of total leukocytes 2.2 0.0 - 6.0 04/10/2018 [facility] Automated blood basophil count as percentage of total leukocytes 0.5 0.0 - 1.0 04/10/2018 [facility] IM GRANULOCYTES % 0.8 0.0 - 1.0 04/10/2018 [facility] Automated blood neutrophil count 3.7 2.1 - 6.9 04/10/2018 [facility] Blood lymphocytes count (number/volume) 1.9 1.0 - 3.2 04/10/2018 [facility] Blood monocytes automated count (number/volume) 0.6 0.2 - 0.8 04/10/2018 [facility] Automated blood eosinophil count 0.1 0.0 - 0.4 04/10/2018 [facility] Automated blood basophil count (count/volume) 0.0 0.0 - 0.1 04/10/2018 [facility] Absolute Immature Granulocyte (auto 0.05 0 - 0.1 04/10/2018 [facility] Prothrombin time (PT) in platelet poor plasma by coagulation assay 13.0 11.9 - 14.5 04/10/2018 [facility] INR in Platelet poor plasma by Coagulation assay 0.90 04/10/2018 [facility] Activated partial thromboplastin time (aPTT) in platelet poor plasma bycoagulation assay 30.7 23.8 - 35.5 04/10/2018 [facility] Urine color determination YELLOW YELLOW 04/10/2018 [facility] Urine clarity CLEAR CLEAR 04/10/2018 [facility] Specific gravity of Urine by Test strip 1.015 1.010 - 1.025 04/10/2018 [facility] Urine pH measurement by automated test strip 6 5 - 7 04/10/2018 [facility] Urine leukocyte esterase detection by dipstick NEGATIVE NEGATIVE 04/10/2018 [facility] Urine nitrite detection NEGATIVE NEGATIVE 04/10/2018 [facility] Urine protein measurement by test strip (mass/volume) NEGATIVE NEGATIVE 04/10/2018 [facility] Urine glucose detection 1+ NEGATIVE 04/10/2018 [facility] Urine ketones detection by automated test strip NEGATIVE NEGATIVE 04/10/2018 [facility] Urine urobilinogen measurement by test strip (mass/volume) 0.2 0.2 - 1 04/10/2018 [facility] Urine total bilirubin measurement (mass/volume) NEGATIVE NEGATIVE 04/10/2018 [facility] Urine erythrocytes detection NEGATIVE NEGATIVE 04/10/2018 [facility] Automated urine sediment leukocyte count by microscopy (number/high power field) 0-5 0 - 5 04/10/2018 [facility] Erythrocytes detection in urine sediment by light microscopy NONE 0 - 5 04/10/2018 [facility] Bacteria detection in urine sediment by light microscopy NONE NONE 04/10/2018 [facility] Epithelial cells detection in urine sediment by light microscopy NONE NONE 04/10/2018 [facility] Serum or plasma sodium measurement (moles/volume) 133 136 - 145 04/10/2018 [facility] Serum or plasma potassium measurement (moles/volume) 4.1 3.5 - 5.1 04/10/2018 [facility] Serum or plasma chloride measurement (moles/volume) 103 98 - 107 04/10/2018 [facility] Serum or plasma carbon dioxide, total measurement (moles/volume) 25 22 - 29 04/10/2018 [facility] Serum or plasma anion gap 9.1 8 - 16 04/10/2018 [facility] Serum or plasma urea nitrogen measurement (mass/volume) 10 7 - 26 04/10/2018 [facility] Serum or plasma creatinine measurement (mass/volume) 1.06 0.72 - 1.25 04/10/2018 [facility] Serum or plasma urea nitrogen/creatinine mass ratio 9 6 - 25 04/10/2018 [facility] Estimated glomerular filtration rate (GFR) determination > 60 60 04/10/2018 [facility] Glucose measurement 159 74 - 118 04/10/2018 [facility] Serum or plasma calcium measurement (mass/volume) 8.9 8.4 - 10.2 04/10/2018 [facility] Serum or plasma total bilirubin measurement (mass/volume) 0.4 0.2 - 1.2 04/10/2018 [facility] Aspartate Amino Transf (AST/SGOT) 25 5 - 34 04/10/2018 [facility] Serum or plasma alanine aminotransferase measurement (enzymatic activity/volume) 33 0 - 55 04/10/2018 [facility] Serum or plasma protein measurement (mass/volume) 6.1 6.5 - 8.1 04/10/2018 [facility] Serum or plasma albumin measurement (mass/volume) 3.6 3.5 - 5.0 04/10/2018 [facility] Plasma globulin measurement (mass/volume) 2.5 2.3 - 3.5 04/10/2018 [facility] Serum or plasma albumin/globulin mass ratio 1.4 0.8 - 2.0 04/10/2018 [facility] Serum or plasma alkaline phosphatase measurement (enzymatic activity/volume) 90 40 - 150 04/10/2018 [facility] BNP Bld-mCnc 55.4 0 - 100 04/10/2018 [facility] Serum or plasma creatine kinase measurement (enzymatic activity/volume) 138 30 - 200 04/10/2018 [facility] Serum or plasma creatine kinase MB measurement (mass/volume) 2.20 0 - 5.0 04/10/2018 [facility] Troponin I measurement by highly sensitive enzyme immunoassay < 0.001 0 - 0.300 04/10/2018 [facility] Serum or plasma amylase measurement (enzymatic activity/volume) 26 25 - 125 04/10/2018 [facility] Serum or plasma lipase measurement (enzymatic activity/volume) 30 8 - 78 04/10/2018 [facility] Capillary blood glucose measurement by glucometer (mass/volume) 145 70 - 120 02/13/2018 [facility] Capillary blood glucose measurement by glucometer (mass/volume) 145 70 - 120 02/13/2018 [facility] Urine opiates screening test NEGATIVE NEGATIVE 02/09/2018 [facility] Barbiturates screen, urine NEGATIVE NEGATIVE 02/09/2018 [facility] Urine phencyclidine detection by screening method NEGATIVE NEGATIVE 02/09/2018 [facility] Urine amphetamines detection by screen method > 1000 ng/mL NEGATIVE NEGATIVE 02/09/2018 [facility] Urine Methamphetamines Screen NEGATIVE NEGATIVE 02/09/2018 [facility] Urine benzodiazepines detection by screening method NEGATIVE NEGATIVE 02/09/2018 [facility] Urine cocaine measurement (mass/volume) NEGATIVE NEGATIVE 02/09/2018 [facility] Urine cannabinoids detection by screening method NEGATIVE NEGATIVE 02/09/2018 [facility] Urine methadone screen NEGATIVE NEGATIVE 02/09/2018 [facility] Venous Blood pH 7.435 7.35 - 7.38 02/09/2018 [facility] Venous Blood Partial Pressure CO2 36.1 44 - 48 02/09/2018 [facility] Venous Blood Partial Pressure O2 37 40 - 41 02/09/2018 [facility] Venous Blood HCO3 24.1 21 - 22 02/09/2018 [facility] Venous Blood Total Carbon Dioxide 25 02/09/2018 [facility] Venous Blood Base Excess 0 02/09/2018 [facility] Venous Blood Oxygen Saturation 73 02/09/2018 [facility] FiO2 21 02/09/2018 [facility] Venous Blood pH 7.435 7.35 - 7.38 02/09/2018 [facility] Venous Blood Partial Pressure CO2 36.1 44 - 48 02/09/2018 [facility] Venous Blood Partial Pressure O2 37 40 - 41 02/09/2018 [facility] Venous Blood HCO3 24.1 21 - 22 02/09/2018 [facility] Venous Blood Total Carbon Dioxide 25 02/09/2018 [facility] Venous Blood Base Excess 0 02/09/2018 [facility] Venous Blood Oxygen Saturation 73 02/09/2018 [facility] FiO2 21 02/09/2018 [facility] Serum or plasma magnesium measurement (mass/volume) 1.8 1.3 - 2.1 02/09/2018 [facility] Serum or plasma magnesium measurement (mass/volume) 1.8 1.3 - 2.1 02/09/2018 [facility] Lactic Acid Level 14.5 4.5 - 19.8 06/23/2017 [facility] Lactic Acid Level 14.5 4.5 - 19.8 06/23/2017 [facility] Automated blood basophil count (count/volume) Automated blood basophil count (count/volume) 0.0 0.0 - 0.1 06/23/2017 [facility] Automated blood basophil count as percentage of total leukocytes Automated blood basophil count as percentage of total leukocytes 0.4 0.0 - 1.0 06/23/2017 [facility] Automated blood eosinophil count Automated blood eosinophil count 0.1 0.0 - 0.4 06/23/2017 [facility] Automated blood eosinophil count as percentage of total leukocytes Automated blood eosinophil count as percentage of total leukocytes 1.9 0.0 - 6.0 06/23/2017 [facility] Automated blood hematocrit (volume fraction) Automated blood hematocrit (volume fraction) 40.9 38.2 - 49.6 06/23/2017 [facility] Automated blood lymphocyte count as percentage ot total leukocytes Automated blood lymphocyte count as percentage ot total leukocytes 28.8 18.0 - 39.1 06/23/2017 [facility] Automated blood monocyte count as percentage of total leukocytes Automated blood monocyte count as percentage of total leukocytes 6.9 4.4 - 11.3 06/23/2017 [facility] Automated blood neutrophil count Automated blood neutrophil count 4.3 2.1 - 6.9 06/23/2017 [facility] Automated blood platelet count (count/volume) Automated blood platelet count (count/volume) 235 140 - 360 06/23/2017 [facility] Automated blood segmented neutrophil count as percentage of total leukocytes Automated blood segmented neutrophil count as percentage of total leukocytes 61.3 38.7 - 80.0 06/23/2017 [facility] Automated erythrocyte mean corpuscular hemoglobin (mass per erythrocyte) Automated erythrocyte mean corpuscular hemoglobin (mass per erythrocyte) 31.0 28 - 32 06/23/2017 [facility] Automated erythrocyte mean corpuscular hemoglobin concentration measurement (mass/volume) Automated erythrocyte mean corpuscular hemoglobin concentration measurement (mass/volume) 34.5 31 - 35 06/23/2017 [facility] Automated erythrocyte mean corpuscular volume Automated erythrocyte mean corpuscular volume 89.9 81 - 99 06/23/2017 [facility] Blood erythrocytes automated count (number/volume) Blood erythrocytes automated count (number/volume) 4.55 4.3 - 5.7 06/23/2017 [facility] Blood hemoglobin measurement (moles/volume) Blood hemoglobin measurement (moles/volume) 14.1 14.0 - 18.0 06/23/2017 [facility] Blood leukocytes automated count (number/volume) Blood leukocytes automated count (number/volume) 6.97 4.8 - 10.8 06/23/2017 [facility] Blood lymphocytes count (number/volume) Blood lymphocytes count (number/volume) 2.0 1.0 - 3.2 06/23/2017 [facility] Blood monocytes automated count (number/volume) Blood monocytes automated count (number/volume) 0.5 0.2 - 0.8 06/23/2017 [facility] Estimated glomerular filtration rate (GFR) determination Estimated glomerular filtration rate (GFR) determination 58 60 06/23/2017 [facility] Glucose measurement Glucose measurement 107 74 - 118 06/23/2017 [facility] Plasma globulin measurement (mass/volume) Plasma globulin measurement (mass/volume) 4.0 2.3 - 3.5 06/23/2017 [facility] Serum or plasma alanine aminotransferase measurement (enzymatic activity/volume) Serum or plasma alanine aminotransferase measurement (enzymatic activity/volume) 23 0 - 55 06/23/2017 [facility] Serum or plasma albumin measurement (mass/volume) Serum or plasma albumin measurement (mass/volume) 3.9 3.5 - 5.0 06/23/2017 [facility] Serum or plasma albumin/globulin mass ratio Serum or plasma albumin/globulin mass ratio 1.0 0.8 - 2.0 06/23/2017 [facility] Serum or plasma alkaline phosphatase measurement (enzymatic activity/volume) Serum or plasma alkaline phosphatase measurement (enzymatic activity/volume) 89 40 - 150 06/23/2017 [facility] Serum or plasma amylase measurement (enzymatic activity/volume) Serum or plasma amylase measurement (enzymatic activity/volume) 31 25 - 125 06/23/2017 [facility] Serum or plasma anion gap Serum or plasma anion gap 17.8 8 - 16 06/23/2017 [facility] Serum or plasma calcium measurement (mass/volume) Serum or plasma calcium measurement (mass/volume) 9.5 8.4 - 10.2 06/23/2017 [facility] Serum or plasma carbon dioxide, total measurement (moles/volume) Serum or plasma carbon dioxide, total measurement (moles/volume) 25 22 - 29 06/23/2017 [facility] Serum or plasma chloride measurement (moles/volume) Serum or plasma chloride measurement (moles/volume) 100 98 - 107 06/23/2017 [facility] Serum or plasma creatinine measurement (mass/volume) Serum or plasma creatinine measurement (mass/volume) 1.32 0.72 - 1.25 06/23/2017 [facility] Serum or plasma lipase measurement (enzymatic activity/volume) Serum or plasma lipase measurement (enzymatic activity/volume) 34 8 - 78 06/23/2017 [facility] Serum or plasma magnesium measurement (mass/volume) Serum or plasma magnesium measurement (mass/volume) 2.1 1.3 - 2.1 06/23/2017 [facility] Serum or plasma potassium measurement (moles/volume) Serum or plasma potassium measurement (moles/volume) 3.8 3.5 - 5.1 06/23/2017 [facility] Serum or plasma protein measurement (mass/volume) Serum or plasma protein measurement (mass/volume) 7.9 6.5 - 8.1 06/23/2017 [facility] Serum or plasma sodium measurement (moles/volume) Serum or plasma sodium measurement (moles/volume) 139 136 - 145 06/23/2017 [facility] Serum or plasma total bilirubin measurement (mass/volume) Serum or plasma total bilirubin measurement (mass/volume) 0.4 0.2 - 1.2 06/23/2017 [facility] Serum or plasma urea nitrogen measurement (mass/volume) Serum or plasma urea nitrogen measurement (mass/volume) 17 7 - 26 06/23/2017 [facility] Serum or plasma urea nitrogen/creatinine mass ratio Serum or plasma urea nitrogen/creatinine mass ratio 13 6 - 25 06/23/2017 [facility] Red Cell Distribution Width 13.5 11.7 - 14.4 06/23/2017 [facility] IM GRANULOCYTES % 0.7 0.0 - 1.0 06/23/2017 [facility] Absolute Immature Granulocyte (auto 0.05 0 - 0.1 06/23/2017 [facility] Aspartate Amino Transf (AST/SGOT) 31 5 - 34 06/23/2017 [facility] Serum or plasma creatine kinase MB measurement (mass/volume) Serum or plasma creatine kinase MB measurement (mass/volume) 1.10 0 - 5.0 2017 [facility] Serum or plasma creatine kinase measurement (enzymatic activity/volume) Serum or plasma creatine kinase measurement (enzymatic activity/volume) 69 30 - 200 2017 [facility] Troponin I measurement by highly sensitive enzyme immunoassay Troponin I measurement by highly sensitive enzyme immunoassay <0.001 0 - 0.300 2017 [facility] Serum or plasma cholesterol in HDL measurement (mass/volume) Serum or plasma cholesterol in HDL measurement (mass/volume) 25 40 - 60 2017 [facility] Serum or plasma cholesterol in LDL measurement (mass/volume) Serum or plasma cholesterol in LDL measurement (mass/volume) 52 60 - 130 2017 [facility] Serum or plasma cholesterol measurement (mass/volume) Serum or plasma cholesterol measurement (mass/volume) 132 0 - 199 2017 [facility] Serum or plasma total cholesterol/cholesterol in HDL mass ratio Serum or plasma total cholesterol/cholesterol in HDL mass ratio 5.3 3.9 - 4.7 2017 [facility] Serum or plasma triglyceride measurement (mass/volume) Serum or plasma triglyceride measurement (mass/volume) 276 0 - 149 2017 [facility] Activated partial thromboplastin time (aPTT) in platelet poor plasma bycoagulation assay Activated partial thromboplastin time (aPTT) in platelet poor plasma bycoagulation assay 32.7 23.8 - 35.5 05/26/2017 [facility] INR in Platelet poor plasma by Coagulation assay INR in Platelet poor plasma by Coagulation assay 1.14 05/26/2017 [facility] Prothrombin time (PT) in platelet poor plasma by coagulation assay Prothrombin time (PT) in platelet poor plasma by coagulation assay 13.7 11.9 - 14.5 05/26/2017 [facility] Automated urine sediment leukocyte count by microscopy (number/high power field) Automated urine sediment leukocyte count by microscopy (number/high power field) <10 0 - 5 04/20/2017 [facility] Bacteria detection in urine sediment by light microscopy Bacteria detection in urine sediment by light microscopy NONE NONE 04/20/2017 [facility] Calcium oxalate crystals detection in urine sediment by light microscopy Calcium oxalate crystals detection in urine sediment by light microscopy RARE FEW 04/20/2017 [facility] Epithelial cells detection in urine sediment by light microscopy Epithelial cells detection in urine sediment by light microscopy NONE NONE 04/20/2017 [facility] Erythrocytes detection in urine sediment by light microscopy Erythrocytes detection in urine sediment by light microscopy <5 0 - 5 04/20/2017 [facility] Specific gravity of Urine by Test strip Specific gravity of Urine by Test strip 1.020 1.010 - 1.025 04/20/2017 [facility] Urine clarity Urine clarity CLEAR CLEAR 04/20/2017 [facility] Urine color determination Urine color determination YELLOW YELLOW 04/20/2017 [facility] Urine erythrocytes detection Urine erythrocytes detection NEGATIVE NEGATIVE 04/20/2017 [facility] Urine glucose detection Urine glucose detection NEGATIVE NEGATIVE 04/20/2017 [facility] Urine ketones detection by automated test strip Urine ketones detection by automated test strip TRACE NEGATIVE 04/20/2017 [facility] Urine leukocyte esterase detection by dipstick Urine leukocyte esterase detection by dipstick 1+ NEGATIVE 04/20/2017 [facility] Urine nitrite detection Urine nitrite detection NEGATIVE NEGATIVE 04/20/2017 [facility] Urine pH measurement by automated test strip Urine pH measurement by automated test strip 5 5 - 7 04/20/2017 [facility] Urine protein measurement by test strip (mass/volume) Urine protein measurement by test strip (mass/volume) NEGATIVE NEGATIVE 04/20/2017 [facility] Urine total bilirubin measurement (mass/volume) Urine total bilirubin measurement (mass/volume) 1+ NEGATIVE 04/20/2017 [facility] Urine urobilinogen measurement by test strip (mass/volume) Urine urobilinogen measurement by test strip (mass/volume) 0.2 0.2 - 1 04/20/2017 [facility] Phosphorus measurement Phosphorus measurement 3.8 2.3 - 4.7 04/20/2017 [facility] Serum or plasma uric acid measurement (mass/volume) Serum or plasma uric acid measurement (mass/volume) 9.7 4.8 - 8.0 04/20/2017 [facility] Fibrin D-dimer DDU measurement in platelet poor plasma (mass/volume) Fibrin D-dimer DDU measurement in platelet poor plasma (mass/volume) 0.56 0.00 - 0.45 04/19/2017 [facility] B-Type Natriuretic Peptide <12.0 0 - 100 04/19/2017 [facility] Pathology Reports No Data Provided for This [...] ADM Date DC Date Status Source Outpatient [id number] TANA BENNETT 01/08/2016 [facility] Discharged Inpatient (obs) [id number] ALVARO SCHUMACHER MD 04/20/2017 04/21/2017 [facility] Discharged Inpatient (obs) [id number] DIANE RENTERIA MD 05/26/2017 2017 [facility] Departed Emergency Room [id number] DEBRA CLOUD MD 06/23/2017 06/23/2017 [facility] Departed Emergency Room [id number] ORACIO STARR MD 01/02/2018 01/02/2018 [facility] Discharged Inpatient [id number] DEXTER DILL MD 02/09/2018 02/13/2018 [facility] Departed Emergency Room [id number] ORACIO STARR MD 04/10/2018 04/10/2018 [facility] Travel [id number] 04/24/2018 [facility] Therapy [id number] Katina Tracy PT 04/24/2018 04/24/2018 [facility] Departed Emergency Room [id number] REED CURTIS MD 05/29/2018 05/29/2018 [facility] Procedures Procedure Code Date Perfomer Comments Source Computed tomography of brain without radiopaque contrast [id number] 02/10/2018 [facility] Computed tomography of chest with contrast [id number] 02/09/2018 [place] [facility] Computed tomography of abdomen and pelvis with contrast [id number] 06/23/2017 [facility] Assessment and Plan No Data Provided for This Section Plan of Care Plan of Care Date Source IMM Influenza Seasonal Nov to April (>/=19 yrs) 11/18/2018 [facility] Discharge Date 05/29/18 2:41am Disposition HOME, SELF-CARE Condition at Discharge Stable Instructions/Education Provided Chest Pain - Noncardiac Prescriptions See Medication Section 05/29/2018 [facility] Discharge Date 04/10/18 6:25pm Disposition HOME, SELF-CARE Condition at Discharge Stable Instructions/Education Provided Chest Pain - Chest Wall Forms Provided Work/School Excuse Prescriptions See Medication Section Referrals [facility] WOODARD MD Address: [address] [place] [address] Additional Instructions/Education 1. Please f/u with news commentator as an outpt you are not having an acute cardiac event at this time 04/10/2018 [facility] IMM Influenza Seasonal Nov to April (>/=19 yrs) 11/18/2017 [facility] Discharge Date 06/23/17 11:07pm Disposition HOME, SELF-CARE Condition at Discharge Stable Instructions/Education Provided Abdominal Pain - Adult Vomiting - Adult Forms Provided Work/School Excuse Prescriptions See Medication Section Referrals JULIO PETTY MD Order Date: Call for an appointment Address: [address] [place] [id number] Additional Instructions/Education Call for follow up appointment [...] oral secretions or any new concerns. 06/23/2017 [facility] Social History Social History Date Source Social [...] Start Date Stop Date Never Smoker 05/29/2018 [facility] Tobacco UseTypesPacks/DayYears UsedDate Never Assessed Sex Assigned [...] Directives Advance Directives For more information, please contact:[address] [id number] Code Status on FileCode StatusDate ActivatedDate InactivatedComments Full Code 07/03/2010 10:11 AM 07/04/2010 9:05 PM 07/06/2018 [facility] Advance Directives Advance Directives For more information, please contact:[address] [id number] Code Status on FileCode StatusDate ActivatedDate InactivatedComments Full Code 07/03/2010 10:11 AM 07/04/2010 9:05 PM 06/01/2018 [facility] Advance Directives Advance Directives Directive Response Recorded Date/Time Does the patient have an advance directive? No 02/09/18 7:58am Do you have a Directive to Physician? No 05/29/18 12:19am Do you have a Medical Power of Sliver Machine Operator? No 05/29/18 12:19am Do you have an [...] rights and responsibilities? Yes 05/29/18 12:19am 05/29/2018 [facility] Advance Directives Advance Directives For more information, please contact:[address] [id number] Code Status on FileCode StatusDate ActivatedDate InactivatedComments Full Code 07/03/2010 10:11 AM 07/04/2010 9:05 PM 05/28/2018 [facility] Advance Directives Advance Directives For more information, please contact:[address] [id number] Code Status on FileCode StatusDate ActivatedDate InactivatedComments Full Code 07/03/2010 10:11 AM 07/04/2010 9:05 PM 05/07/2018 [facility] Advance Directives Advance Directives For more information, please contact:[address] [phone] Code Status on FileCode StatusDate ActivatedDate InactivatedComments Full Code 07/03/2010 10:11 AM 07/04/2010 9:05 PM 04/24/2018 [facility] Advance Directives Advance Directives Directive Response Recorded Date/Time Does the patient have an advance directive? No 02/09/18 7:58am Do you have a Directive to Physician? No 04/10/18 2:32pm Do you have a Medical Power of Sliver Machine Operator? No 04/10/18 2:32pm Do you have an [...] rights and responsibilities? Yes 04/10/18 2:33pm 04/10/2018 [facility] Advance Directives Advance Directives Directive Response Recorded Date/Time Does the patient have an advance directive? No 05/27/17 1:44am If yes, is advance directive on file with [facility]? No 05/27/17 1:44am If not on file with [facility] will patient provide a copy? Yes 05/27/17 1:44am Do you have a Directive to Physician? No 06/23/17 9:24pm Do you have a Medical Power of Sliver Machine Operator? No 06/23/17 9:24pm Do you have an [...] rights and responsibilities? Yes 06/23/17 9:24pm 06/23/2017 [facility] Functional Status No Data Provided for This Section
--- NOTE | 2018-10-22 19:42 | Diagnostic Imaging Report ---
Examination: Single AP view of the chest. COMPARISON: June 28, 2018 INDICATION: Chest pain DISCUSSION: Lines/tubes: Sternotomy wires. Lungs: Central pulmonary venous congestion. Pleura: No pleural effusion or pneumothorax. Heart and mediastinum: Cardiomegaly. Bones and soft tissues: No acute bony abnormalities. IMPRESSION: 1. Cardiomegaly with central pulmonary venous congestion Signed by: Dr. Nicolás Cohn M.D. on 10/22/2018 7:38 PM
[2018-10-22 20:06] LABS: BASOPHILS % 0.3 % (0.0-1.0); EOSINOPHILS # (AUTO) 0.1 (0.0-0.4); EOSINOPHILS % 1.1 % (0.0-6.0); HEMATOCRIT 40.6 % (38.2-49.6); HEMOGLOBIN 14.1 g/dL (14.0-18.0); LYMPHOCYTES # (AUTO) 1.6 (1.0-3.2); LYMPHOCYTES % 16.8 % (18.0-39.1); MEAN CORPUSCULAR HEMOGLOBIN 31.3 pg (28-32); MEAN CORPUSCULAR HGB CONC 34.7 g/dL (31-35); MEAN CORPUSCULAR VOLUME 90.2 fL (81-99); MONOCYTES # (AUTO) 0.7 (0.2-0.8); MONOCYTES % 7.2 % (4.4-11.3); NEUTROPHILS # (AUTO) 7.1 (2.1-6.9); NEUTROPHILS % 73.5 % (38.7-80.0); PLATELET COUNT 220 x10e3/uL (140-360)
[2018-10-22 20:14] LABS: INR 0.91; PROTHROMBIN TIME 12.7 seconds (11.9-14.5)
[2018-10-22 20:15] LABS: PARTIAL THROMBOPLASTIN TIME 27.2 seconds (23.8-35.5)
[2018-10-22 20:23] LABS: ALANINE AMINOTRANSFERASE 22 IU/L (0-55); ALBUMIN/GLOBULIN RATIO 1.2 (0.8-2.0); ALKALINE PHOSPHATASE 106 IU/L (40-150); ANION GAP 16.4 mmol/L (8-16); BLOOD UREA NITROGEN 17 mg/dL (7-26); BUN/CREATININE RATIO 11 (6-25); CALCIUM 9.6 mg/dL (8.4-10.2); CARBON DIOXIDE 27 mmol/L (22-29); CHLORIDE 94 mmol/L (98-107); CREATINE KINASE 207 IU/L (30-200); CREATININE, SERUM 1.48 mg/dL (0.72-1.25); EST GLOMERULAR FILTRATION RATE 51 ML/MIN (60-); GLUCOSE 225 mg/dL (74-118); LIPASE 26 U/L (8-78); MAGNESIUM 2.1 MG/DL (1.3-2.1); POTASSIUM 3.4 mmol/L (3.5-5.1); SODIUM 134 mmol/L (136-145)
[2018-10-22] MEDS: FAMOTIDINE 20 MG/2 ML VIAL IV SCH (20:27)
[2018-10-22 20:43] LABS: THYROID STIMULATING HORMONE 1.497 uIU/mL (0.350-4.940)
[2018-10-22] MEDS ORDERED: LAMOTRIGINE25 MG PO (20:45)
[2018-10-22] MEDS ORDERED: PROMETHAZINE 12.5MG/ NACL 0.9% 50 ML IV PRN (20:45)
[2018-10-22] MEDS ORDERED: JARDIANCE PO (20:45)
[2018-10-22] MEDS ORDERED: K DUR10 MEQ PO (20:45)
[2018-10-22] MEDS ORDERED: VITAMIN D250000 UNIT PO (20:45)
[2018-10-22] MEDS ORDERED: DIGOXIN125 MCG PO (20:45)
[2018-10-22] MEDS ORDERED: SPIRONOLACTONE50 MG PO (20:45)
[2018-10-22 21:14] LABS: BILIRUBIN,URINE NEGATIVE (NEGATIVE); CLARITY,URINE CLEAR (CLEAR); COLOR,URINE YELLOW (YELLOW); KETONES,URINE NEGATIVE (NEGATIVE); LEUKOCYTE ESTERASE ,URINE NEGATIVE (NEGATIVE); NITRITE,URINE NEGATIVE (NEGATIVE); PROTEIN,URINE DIPSTICK NEGATIVE (NEGATIVE); URINE UROBILINOGEN 0.2 mg/dL (0.2 - 1)
[2018-10-22 21:20] LABS: AMPHETAMINES SCREEN,URINE NEGATIVE (NEGATIVE); BENZODIAZEPINES SCREEN,URINE NEGATIVE (NEGATIVE); PHENCYCLIDINE SCREEN,URINE NEGATIVE (NEGATIVE)
[2018-10-22 21:27] LABS: WBC,URINE (MAN) 0-5 /HPF (0-5)
--- NOTE | 2018-10-22 21:41 | NUR ---
Pt arrived to the unit via stretcher and accompanied by ER nurse (Channel). Pt alert and oriented x4 with diagnosis of CP, HTN, obesity. Pt ambulatory with standby assist prn. Pt having intermittent chest pain but comfortable at this time. On telemetry. Pt states he prefers to go to bathroom to urinate rather than using urinal. Call szymanski within reach. Will monitor pt closely.
--- NOTE | 2018-10-22 22:04 | NUR ---
New consult was reported by (Bernarda) to answering service of Dr. Chambers. Awaiting on MD call back or for MD to make rounds in AM (10/23/18).
[2018-10-22 22:30] VITALS: BP 122/56
[2018-10-22 23:00] VITALS: BP 122/56
[2018-10-23] VITALS (9 sets, daily range): BP systolic 104–130; BP diastolic 55–78
[2018-10-23] MEDS: HYDROMORPHONE 1MG/1ML INJ IV PRN ×4 (02:24→21:58)
[2018-10-23 06:00] LABS: BASOPHILS % 0.3 % (0.0-1.0); EOSINOPHILS # (AUTO) 0.1 (0.0-0.4); EOSINOPHILS % 1.6 % (0.0-6.0); HEMATOCRIT 35.7 % (38.2-49.6); HEMOGLOBIN 12.2 g/dL (14.0-18.0); LYMPHOCYTES # (AUTO) 1.4 (1.0-3.2); LYMPHOCYTES % 18.9 % (18.0-39.1); MEAN CORPUSCULAR HEMOGLOBIN 31.1 pg (28-32); MEAN CORPUSCULAR HGB CONC 34.2 g/dL (31-35); MEAN CORPUSCULAR VOLUME 91.1 fL (81-99); MONOCYTES # (AUTO) 0.6 (0.2-0.8); MONOCYTES % 8.3 % (4.4-11.3); NEUTROPHILS # (AUTO) 5.1 (2.1-6.9); NEUTROPHILS % 69.9 % (38.7-80.0); PLATELET COUNT 187 x10e3/uL (140-360); RED BLOOD COUNT 3.92 x10e6/uL (4.3-5.7); RED CELL DISTRIBUTION WIDTH 15.1 % (11.7-14.4)
[2018-10-23] MEDS: FAMOTIDINE 20 MG/2 ML VIAL IV SCH ×2 (06:14→18:04)
[2018-10-23 06:28] LABS: ALANINE AMINOTRANSFERASE 17 IU/L (0-55); ALBUMIN 3.2 g/dL (3.5-5.0); ALBUMIN/GLOBULIN RATIO 1.2 (0.8-2.0); ALKALINE PHOSPHATASE 83 IU/L (40-150); ANION GAP 13.9 mmol/L (8-16); BLOOD UREA NITROGEN 17 mg/dL (7-26); BUN/CREATININE RATIO 14 (6-25); CARBON DIOXIDE 25 mmol/L (22-29); CHLORIDE 100 mmol/L (98-107); CHOL/HDL RATIO 6.4 (3.9-4.7); CHOLESTEROL 140 MD/DL (0-199); CREATININE, SERUM 1.24 mg/dL (0.72-1.25); EST GLOMERULAR FILTRATION RATE > 60 ML/MIN (60-); GLUCOSE 254 mg/dL (74-118); HDL CHOLESTEROL 22 MG/DL (40-60); LDL CHOLESTEROL 38 MG/DL (60-130); PHOSPHORUS 4.4 MG/DL (2.3-4.7); POTASSIUM 3.9 mmol/L (3.5-5.1); SODIUM 135 mmol/L (136-145); TRIGLYCERIDES 400 MG/DL (0-149)
--- NOTE | 2018-10-23 07:30 | NUR ---
PATIENT IN BED WITH HEAD OF BED ELEVATED TALKING ON THE PHONE, NO DISTRESS NOTED. BED IN LOWER POSITION, CALL LIGHT AT REACH.
[2018-10-23 07:52] LABS: CREATINE KINASE 150 IU/L (30-200)
--- NOTE | 2018-10-23 11:20 | NUR ---
PATIENT C/O PAIN AND WAS MEDICATED ORDERED. NO MORE COMPLAIN OF PAIN AT THIS TIME.
[2018-10-23 14:21] LABS: CREATINE KINASE MB 1.4 ng/mL (0-5.0)
--- NOTE | 2018-10-23 16:06 | NUR ---
MD IN TO SEE PATIENT. NOTIFIED OF ELEVATED BLOOD SUGAR, NEW ORDER RECEIVED.
[2018-10-23] MEDS ORDERED: DEXTROSE 50% SYRINGE 50 ML IV PRN (16:15)
[2018-10-23] MEDS ORDERED: LORAZEPAM 0.5 MG TAB PO PRN (16:15)
[2018-10-23] MEDS ORDERED: TRAZODONE HCL 50 MG TAB PO PRN (16:15)
[2018-10-23] MEDS: INSULIN REGULAR, HUMAN 100 UNIT/1 ML 3ML VIAL SQ SCH ×2 (16:30→21:37)
[2018-10-23] MEDS: METOPROLOL TARTRATE 25 MG TAB PO SCH (17:00)
[2018-10-23] MEDS: LAMOTRIGINE 25 MG TAB PO SCH (17:00)
[2018-10-23] MEDS: LEVETIRACETAM 500 MG TAB PO SCH (17:00)
[2018-10-23] MEDS ORDERED: DULOXETINE HCL 30 MG DELAYED RELEASE PO SCH (17:00)
[2018-10-23] MEDS: RANOLAZINE 500 MG TABSR PO SCH (17:00)
[2018-10-23] MEDS: RISPERIDONE 1 MG TAB PO SCH (17:00)
[2018-10-23] MEDS: DULOXETINE HCL 20 MG DELAYED RELEASE PO SCH (17:00)
--- NOTE | 2018-10-23 17:12 | NUR ---
PATIENT OFF UNIT TO RADIOLOGY.
[2018-10-23] MEDS: FUROSEMIDE INJ 10 MG/ML 4 ML VIAL IV SCH (17:30)
--- NOTE | 2018-10-23 17:35 | NUR ---
PATIENT BACK TO UNIT FROM RADIOLOGY.
--- NOTE | 2018-10-23 18:27 | Diagnostic Imaging Report ---
EXAMINATION: CT scan of the chest with contrast. TECHNIQUE: Helical CT images of the chest were performed from the lung apices to the level of the adrenal glands before and after the intravenous administration of 100 cc of Isovue 300. Coronal and sagittal reformatted images were obtained. 3-D post processing. Dose modulation, iterative reconstruction, and/or weight based adjustment of the mA/kV was utilized to reduce the radiation dose to as low as reasonably achievable. COMPARISON: None. CLINICAL HISTORY:Chest pain, history of aortic dissection DISCUSSION: LINES/TUBES: Prior sternotomy. LUNGS AND AIRWAYS: 3 mm right upper lobe pulmonary nodule image 18. 4 mm right middle lobe nodule image 37. Scarring/atelectasis in the medial aspect of the right lung. No concerning consolidation or mass. PLEURA: No pneumothorax or pleural effusions. HEART AND MEDIASTINUM: The thyroid gland is normal. The heart size is mildly prominent. The pulmonary artery is normal in caliber. Circumflex frontal density around the ascending aorta axial image 27 precontrast may reflect prior surgical change. No dissection or aneurysm. LYMPH NODES: There is no mediastinal, hilar or axillary lymphadenopathy. ABDOMEN: Limited contrast-enhanced views of the upper abdomen show no abnormality within the visualized liver, spleen, pancreas, or kidneys. The adrenal glands are normal. BONES AND SOFT TISSUES: No acute bony abnormalities. IMPRESSION: No aortic dissection or aneurysm. Signed by: Dr. Nicolás Cohn M.D. on 10/23/2018 6:24 PM
[2018-10-23] MEDS ORDERED: SODIUM CHLORIDE 0.9% 100 ML 100 ML ONE (19:10)
[2018-10-23] MEDS ORDERED: IOPAMIDOL 370 MG/ML 200 ML INFUS..BTL INJ ONE (19:10)
--- NOTE | 2018-10-23 19:39 | NUR ---
RECEIVED PT IN BED AOX3 .C/O PAIN AT THE LOWER BACK .CALL LIGHT WITH IN REACH .CONTINUE TO MONITOR Addendum: 10/23/18 at 1951 by Lorraine Archuleta RN WRONG PT
--- NOTE | 2018-10-23 19:52 | NUR ---
RECEIVED PT IN BED AOX3 ,.TELE 27 SHOWS SR .C/O ALLERGY .LEFT FA NS AT 75 ML/HR .CALL LIGHT WITH IN REACH .CONTINUE TO MONITOR
[2018-10-23] MEDS ORDERED: LORATADINE 10 MG TAB PO ONE (20:30)
[2018-10-23] MEDS: FLUTICASONE PROPIONATE NASAL SPRAY NS SCH (20:37)
[2018-10-23] MEDS ORDERED: ATORVASTATIN 20 MG TAB PO SCH (21:00)
[2018-10-23] MEDS ORDERED: ATORVASTATIN 40 MG TAB PO SCH (21:00)
--- NOTE | 2018-10-23 22:10 | History and Physical ---
CHIEF COMPLAINT: Chest pain. HISTORY OF PRESENT ILLNESS: This is a -[age] male, morbidly obese, reports history of hypertension type 2 diabetes, heart failure unknown dysfunction and EF, multiple psychiatric disorders, also on seizure medications, presents to the emergency room to follow with complaints of chest pain that began yesterday and has been ongoing for the last several weeks as well. 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 Sullivan with [facility]. At that time apparently, according to the patient about two months ago, he had a cardiac stress test that was told to be normal. He does endorse that he has heart failure, but does not note an ejection fraction of his heart. He does take significant amount of diuretics at home. He denies any current chest pain, palpitation, nausea, vomiting. He endorses some orthopnea and dyspnea on exertion. The patient was seen and evaluated at bedside on the medical floor. He is currently doing well with no other issues at this time. REVIEW OF SYSTEMS: 1. Pertinent positive: Chest pain, orthopnea. 2. Pertinent negatives: Denies any palpitation, nausea, vomiting, diarrhea, dysuria, hematuria, frequency, urgency, lightheadedness, dizziness, abdominal pain, headaches, cough, congestion, fever, or any other complaints. The rest of 14-point review of systems have been reviewed with the patient and are negative. ALLERGIES: TO AMPICILLIN, GABAPENTIN, KETOROLAC, REGLAN, MORPHINE, ZOFRAN, AND TRAMADOL. HOME MEDICATIONS: Aspirin, Lipitor, Soma, Plavix, digoxin, doxepin, Cymbalta, ergocalciferol, Tricor, furosemide, lamotrigine, Keppra, lorazepam, metoprolol, Protonix, promethazine, Ranexa, risperidone, Xarelto, trazodone, meloxicam, metformin, Aldactone, isosorbide mononitrate, and Jardiance. PAST MEDICAL HISTORY: History of heart failure, unknown dysfunction or EF, history of coronary artery disease, type 2 diabetes, hypertension, morbidly obese, peripheral neuropathy, history of anxiety, psychiatric disorders as well, and hyperlipidemia. PAST SURGICAL HISTORY: Reports none. FAMILY HISTORY: Hypertension and diabetes. SOCIAL HISTORY: No drugs. No alcohol. He is a smoker for several years now. LAB FINDINGS: Show white count 7.3, hemoglobin 12, hematocrit is 35, and platelets of 187. Coags: PT is 12, INR 0.91, PTT 27. Chemistry: Sodium 135, potassium 3.9, chloride 100, bicarb 25, anion gap of 13, BUN 17, creatinine is 1.24, glucose is 254, calcium 9, phosphorus 4.4, magnesium 2, total bilirubin 0.5, AST 15, ALT 17, alkaline phosphatase 83. Troponins are negative. Albumin 3.2 and LDL 38. Lipase level was 26. TSH 1.4. Urinalysis was negative. Urine drug screen positive for opioids. MICROBIOLOGY: Urine cultures are negative to date. IMAGING STUDIES: Chest x-ray, cardiomegaly with central pulmonary vascular congestion. PHYSICAL EXAMINATION: VITAL SIGNS: Temperature is 98.2, pulse 91, respiratory rate is 20, blood pressure 130/60, and pulse ox 96% on room air. GENERAL: Not in acute distress. Alert and oriented x3. Cooperative on exam. Morbidly obese. HEENT: Head normocephalic, atraumatic. Eyes; pupils are equal, round, and reactive to light bilaterally. Extraocular movements intact bilaterally. NECK: Supple. Good range of motion throughout PULMONARY: Decreased breath sounds bilaterally, mild wheezing, but no crackles. Positive rales. CARDIOVASCULAR: Positive S1, S2. No murmurs, rubs, or gallops appreciated. ABDOMEN: Soft, nondistended, and nontender to palpation. Bowel sounds present. MUSCULOSKELETAL: Strength is 5/5 throughout. No evidence of any muscle deficits on examination. No weakness appreciated. NEUROLOGIC: Cranial nerves II through XII grossly intact. No evidence of any neurological deficits on exam. SKIN: Intact. Warm to touch. Good cap refill. PSYCHIATRIC: Normal affect and mood. EXTREMITIES: No edema. Good range of motion throughout. IMPRESSION: 1. Chest pain, rule out acute coronary syndrome. 2. Acute exacerbation of congestive heart failure with unknown dysfunction. 3. Type 2 diabetes. 4. Hypertension. 5. Morbidly obese. 6. History of depression and multiple psychiatric disorders. PLAN: At this time, we will trend troponins. Aspirin, statin, cardioprotective medications. Cardiology was notified and consulted on this case. The patient's fender mechanic is in [facility]. Put him on insulin sliding scale, Accu-Cheks, A1c. Lipid panel with TSH. Resume same home medications with no changes. Minimize pain medications. Use Lovenox for deep venous thrombosis prophylaxis. Encourage ambulation. MD STORMY Anderson/MODL /[id number]
--- NOTE | 2018-10-23 23:04 | Consultation ---
DATE OF CONSULTATION: Cardiology Consultation REASON FOR CONSULTATION: Chest pain. HISTORY OF PRESENT ILLNESS: This is a 48-year-old man with a history of hypertension; myocardial infarction; coronary artery disease, status post coronary artery bypass graft surgery; aortic dissections with unknown surgery; seizure disorder; anxiety; depression; psychiatric disease; gastroesophageal reflux disease; hyperlipidemia; chronic pain; obesity; obstructive sleep apnea; history of paroxysmal atrial fibrillation; cerebrovascular accident and stomach cancer, who presented to the emergency department with chest pain. The patient states that he had central chest pressure with radiation to his left neck and left arm, cpxzkzsp-od-aprjfk in intensity, no exacerbating or relieving factors, associated with shortness of breath. He is now reporting fever, body aches, and generalized pain. REVIEW OF SYSTEMS: A 12-point review of system was conducted, is negative except as stated above in the HPI. PAST MEDICAL HISTORY: As stated above in the HPI. PAST SURGICAL HISTORY: As stated above in the HPI. PAST FAMILY HISTORY: Noncontributory. SOCIAL HISTORY: Tobacco use. ALLERGIES: MULTIPLE, SEE CHART. MEDICATIONS: See medication reconciliation form. PHYSICAL EXAMINATION: VITAL SIGNS: Temperature is 96.2, heart rate is 94, respirations are 20, blood pressure is 126/56, oxygen saturation 96% on room air. GENERAL: He is well appearing, well built, in no apparent distress. Alert and oriented x3. HEAD: Normocephalic and atraumatic. Eyes, the extraocular muscles are intact. Conjunctivae Clear. NECK: No JVD. No bruits. CARDIOVASCULAR: Regular rate and rhythm. No murmurs. LUNGS: Scattered wheezing and rhonchi. ABDOMEN: Soft, obese, nontender, and nondistended. EXTREMITIES: Edema. VASCULAR: Diminished pulses. SKIN: Warm, dry, and intact. NEUROLOGIC: No focal deficits noted. Cranial nerves grossly intact. PSYCHIATRIC: Normal mood and affect. LABORATORY DATA: Reveals negative troponins x3. Creatinine 1.2. Triglycerides 400, LDL 38. A 12-lead electrocardiogram showed sinus tachycardia, poor R-wave progression. Chest x-ray shows cardiomegaly with mild central pulmonary vascular congestion. 2D echocardiogram showed preserved left ventricular systolic function with grade 1 diastolic dysfunction. IMPRESSION: 1. Chest pain. 2. Ebodi-sw-ywbnfpa diastolic heart failure. 3. Shortness of breath with wheezing. 4. Coronary artery disease, status post bypass surgery. 5. History of aortic dissection, status post surgery. 6. Hyperlipidemia. 7. Obesity. 8. Paroxysmal atrial fibrillation. 9. Cerebrovascular accident. RECOMMENDATIONS: So far the patient has ruled out for acute myocardial infarction. His 2D echocardiogram showed preserved left ventricular systolic function with grade 1 diastolic dysfunction. Given his chest pain and history of aortic dissection, recommend CT angiogram of the chest. Continue shortness of breath and wheezing, treatment per primary team. Continue current cardiovascular medications and diuresis. He is on anticoagulation. If the CTA of the chest is within normal limits, the patient may be discharged from cardiovascular standpoint with outpatient stress testing with his primary vacuum frame operator, Dr. Sullivan. DO ALESSANDRO Mcgill/TAYLORL /[id number]
[2018-10-24 04:05] VITALS: BP 130/63
[2018-10-24] MEDS: ALBUTEROL/IPRATROPIUM 3 ML NEB NEB PRN ×2 (04:25→07:00)
[2018-10-24] MEDS: HYDROMORPHONE 1MG/1ML INJ IV PRN ×2 (04:30→10:30)
[2018-10-24] MEDS: FUROSEMIDE INJ 10 MG/ML 4 ML VIAL IV SCH ×3 (06:00→12:02)
--- NOTE | 2018-10-24 06:15 | NUR ---
PT C/O PAIN AND GIVEN ORDERED PAIN MEDICATION .CALL LIGHT WITH IN REACH .CONTINUE TO MONITOR
--- NOTE | 2018-10-24 06:24 | Diagnostic Imaging Report ---
EXAMINATION: CHEST SINGLE (PORTABLE) COMPARISON: Chest x-ray 10/22/2018, CTA chest 10/23/2018 INDICATION: ^wheezing ^[id number] ^0535 ^Y DISCUSSION: Frontal view of the chest obtained at 0536 hours. HEART AND MEDIASTINUM: The heart is mildly enlarged, stable. Stable prominence of the pulmonary arteries. LINES: None. LUNGS: The lungs are well-inflated. Pulmonary vasculature is prominent. Bibasilar atelectasis PLEURA: No pleural effusion or pneumothorax. BONES AND SOFT TISSUES: Upper median sternotomy wires are fractured. Lower median sternotomy plates are stable. A fusion plate in the lower cervical spine is partially imaged. IMPRESSION: Stable cardiomegaly and pulmonary artery enlargement suggestive of pulmonary artery hypertension. Bibasilar atelectasis. Signed by: Dr. Camden Martínez MD on 10/24/2018 6:21 AM
[2018-10-24 06:45] LABS: CHOL/HDL RATIO 5.8 (3.9-4.7)
[2018-10-24] MEDS: FAMOTIDINE 20 MG/2 ML VIAL IV SCH (06:45)
--- NOTE | 2018-10-24 07:10 | NUR ---
BEDSIDE REPORT GIVEN TO THE ONCOMING NURSE
[2018-10-24 07:26] LABS: BASOPHILS % 0.3 % (0.0-1.0); EOSINOPHILS # (AUTO) 0.2 (0.0-0.4); EOSINOPHILS % 2.3 % (0.0-6.0); HEMATOCRIT 38.6 % (38.2-49.6); HEMOGLOBIN 13.2 g/dL (14.0-18.0); LYMPHOCYTES # (AUTO) 1.1 (1.0-3.2); MEAN CORPUSCULAR HEMOGLOBIN 31.1 pg (28-32); MEAN CORPUSCULAR HGB CONC 34.2 g/dL (31-35); MEAN CORPUSCULAR VOLUME 90.8 fL (81-99); MONOCYTES # (AUTO) 0.6 (0.2-0.8); MONOCYTES % 8.7 % (4.4-11.3); NEUTROPHILS # (AUTO) 4.7 (2.1-6.9); NEUTROPHILS % 70.9 % (38.7-80.0); PLATELET COUNT 192 x10e3/uL (140-360); RED BLOOD COUNT 4.25 x10e6/uL (4.3-5.7); RED CELL DISTRIBUTION WIDTH 15.2 % (11.7-14.4)
[2018-10-24] MEDS: INSULIN REGULAR, HUMAN 100 UNIT/1 ML 3ML VIAL SQ SCH (07:30)
[2018-10-24 07:37] LABS: ANION GAP 14.7 mmol/L (8-16); BLOOD UREA NITROGEN 15 mg/dL (7-26); BUN/CREATININE RATIO 13 (6-25); CALCIUM 9.4 mg/dL (8.4-10.2); CARBON DIOXIDE 24 mmol/L (22-29); CHLORIDE 97 mmol/L (98-107); CREATININE, SERUM 1.12 mg/dL (0.72-1.25); EST GLOMERULAR FILTRATION RATE > 60 ML/MIN (60-); GLUCOSE 201 mg/dL (74-118); POTASSIUM 3.7 mmol/L (3.5-5.1); SODIUM 132 mmol/L (136-145)
[2018-10-24 07:49] VITALS: BP 109/57
[2018-10-24] MEDS: FLUTICASONE PROPIONATE NASAL SPRAY NS SCH (08:42)
[2018-10-24] MEDS: DULOXETINE HCL 20 MG DELAYED RELEASE PO SCH (08:42)
[2018-10-24] MEDS: LEVETIRACETAM 500 MG TAB PO SCH (08:43)
[2018-10-24] MEDS: RANOLAZINE 500 MG TABSR PO SCH (08:43)
[2018-10-24] MEDS: METOPROLOL TARTRATE 25 MG TAB PO SCH (08:43)
[2018-10-24] MEDS: LAMOTRIGINE 25 MG TAB PO SCH (08:43)
[2018-10-24] MEDS: RISPERIDONE 1 MG TAB PO SCH (08:44)
[2018-10-24 08:53] VITALS: BP 109/57
[2018-10-24] MEDS ORDERED: LORATADINE 10 MG TAB PO SCH (09:00)
[2018-10-24] MEDS ORDERED: ISOSORBIDE MONONITRATE PO SCH (09:00)
[2018-10-24] MEDS ORDERED: FENOFIBRATE 145 MG TAB PO SCH (09:00)
[2018-10-24] MEDS ORDERED: ASPIRIN 81 MG CHEW TAB PO SCH (09:00)
[2018-10-24] MEDS ORDERED: FLUTICASONE PROPIONATE NASAL SPRAY NS SCH (09:00)
[2018-10-24] MEDS ORDERED: CLOPIDOGREL BISULFATE 75 MG TAB PO SCH (09:00)
[2018-10-24] MEDS ORDERED: PANTOPRAZOLE SOD 40 MG TABEC PO SCH (09:00)
[2018-10-24] MEDS ORDERED: RIVAROXABAN 20 MG TABLET PO SCH ×2 (09:00)
[2018-10-24] MEDS ORDERED: ISOSORBIDE MONONITRATE 30 MG TAB CR PO SCH (09:00)
[2018-10-24] MEDS ORDERED: DOXEPIN HCL 25 MG CAP PO SCH (09:00)
[2018-10-24] MEDS ORDERED: [UNRECOGNIZED DRUG - OTHER] PO SCH (09:00)
[2018-10-24 10:31] VITALS: BP 109/57
[2018-10-24 11:25] VITALS: BP 123/64
[2018-10-24 15:31] VITALS: BP 103/55
--- NOTE | 2018-10-25 14:37 | Discharge Summary ---
FINAL DISCHARGE DIAGNOSES: 1. Chest pain, ruled now. 2. History of congestive heart failure with diastolic dysfunction. 3. Type 2 diabetes. 4. Hypertension. 5. Morbidly obese. 6. History of depression and multiple psychiatric disorders. CONSULTANTS: Cardiology. PHYSICAL EXAMINATION: VITAL SIGNS: Temperature is 97.3, pulse 86, respiratory rate is 20, blood pressure 123/64, pulse ox 94% on room air. LAB FINDINGS: Show white count 6.5, hemoglobin is 13, hematocrit is 38.6, platelets of 192. Coagulation; PT 12, INR 0.9, APTT 27. Chemistry; sodium is 132, potassium is 3.7, chloride 97, bicarb is 24, anion gap of 14, BUN is 15, creatinine is 1.1, glucose was 201, A1c 7.5, calcium is 9.4, phosphorus is 4.4, magnesium is 2, total bilirubin is 0.5, AST is 15, ALT is 17. Troponins are all negative. Albumin is 3.2, LDL 66, triglycerides 344, lipase is 26, TSH is 1.49. Urinalysis negative. Urine drug screen positive for opioids. MICROBIOLOGY: Urine cultures were negative. IMAGING STUDIES: Chest x-ray shows cardiomegaly with central pulmonary vascular congestion. CTA of the chest shows no aortic dissection or aneurysm. Chest x-ray shows stable cardiomegaly with pulmonary artery engorgement suggestive of pulmonary arterial hypertension. Bibasilar atelectasis. HOSPITAL COURSE: This is a 48-year-old male with multiple comorbidities, came into the emergency room department with complaints of chest pain and underlying shortness of breath. The patient has a history of diastolic heart failure. He came in for further management and care. While here, his cardiac enzymes were found to be negative. EKG showed no acute findings. A 2D echo shows grade 1 diastolic dysfunction. The patient was evaluated by Cardiology and cleared the patient for discharge to home. He had a CTA of the chest showed negative for any dissection or any aneurysm. He was to continue with cardioprotective medications and diuretics as per Cardiology recommendations, and they cleared the patient for discharge home. He did have some underlying upper respiratory infection, given some Flonase and Claritin with much improvement. Despite him stating to me that he has a history of aortic dissection, his CTA does not even comment on that. I am not sure the patient is truly telling me the truth or not. Our imaging studies were found to be negative. Otherwise, he has been doing well with no complaints. He was ready for discharge to home. He was cleared by Cardiology for discharge. He was breathing well, stating that no chest pain prior to discharge. On the day of discharge, vital signs were stable, labs were reviewed and stable. The patient is seen and evaluated, examined thoroughly on the day of discharge. No other complaints. The patient verbalized understanding and agrees to plan of care to follow up accordingly as an outpatient with the primary care physician in 1 week and the water pollution control inspector in 1-2 weeks' time. MEDICATIONS: See med reconciliation form. DISPOSITION: Home. CONDITION: Stable. DIET: Heart healthy. In the event of any worsening symptoms, the patient advised to come back to the ED for further evaluation. Discharge summary took greater than 35 minutes. Once again, the patient has been cleared for discharge by Cardiology. MD STORMY Anderson/FREDY /[id number]
== END 2018-10-24 16:04 | disposition home or self-care (01) ==
LOC: ER 17:48 → ERHOLD 18:41 → INTOOBSV 18:41 → MED/SURG3 21:48
PROVIDERS: ADMIT Internal Medicine; ATTEND Internal Medicine
DX: I11.0 Hypertensive heart disease with heart failure (principal); E11.22 Type 2 diabetes mellitus with diabetic chronic kidney disease; E66.01 Morbid (severe) obesity due to excess calories; Z68.43 Body mass index [BMI] 50.0-59.9, adult; I50.33 Acute on chronic diastolic (congestive) heart failure; I48.0 Paroxysmal atrial fibrillation; Z79.01 Long term (current) use of anticoagulants; I25.10 Atherosclerotic heart disease of native coronary artery without angina pectoris; E78.5 Hyperlipidemia, unspecified; F32.9 Major depressive disorder, single episode, unspecified; J98.8 Other specified respiratory disorders; J06.9 Acute upper respiratory infection, unspecified
CPT/HCPCS: 36415 ×3; 71045 ×2; 71275; 80048; 80053 ×2; 80061 ×2; 80307; 81001; 82550 ×2; 82553 ×2; 82948 ×3; 83036; 83690; 83735 ×2; 83880; 84100; 84443; 84484 ×2; 85025 ×3; 85610; 85730; 87086; 93005; 93306; 94640; 96374; 96375; 99284; C9113; G0378 ×3; J1170 ×3; J1817; J1940 ×2; J2550; J7030; Q9967; S0164

== ENCOUNTER 2018-10-29 21:18 | Emergency (ER) | payer OTHER ==
[~2018-10-29] VITALS: Ht 188 cm; Wt 186.4 kg
[~2018-10-29 21:18] MED LIST changes: +DIGOXIN125 MCG PO; +JARDIANCE PO; +K DUR10 MEQ PO; +LAMOTRIGINE25 MG PO; +SPIRONOLACTONE50 MG PO; +VITAMIN D250000 UNIT PO
--- OUTSIDE RECORDS SUMMARY | 2018-10-29 21:22 | XMS REPORT | Clinical Summary ---
Author Author AMISH [employer] Organization [facility] [address] [facility] Address Unknown Phone Unavailable Care Team Providers Care Flame Burner Name Role Phone Janet Stewart MD PCP Unavailable Allergies Comments Active Allergy Reactions Severity Noted Date Ampicillin Rash Low 01/21/2016 Baclofen 12/25/2016 Prochlorperazine 01/05/2017 Edisylate Cyclobenzaprine 12/25/2016 Caused nausea and Syncope ( When he passed out he broke his neck ) [place] Analogues 01/05/2017 Metoclopramide Hcl Rash Low 01/22/2016 [...] Not on file Results Not on fileafter 10/28/2017 Insurance Payer Benefit Subscriber ID Type Phone Address Plan / Group MEDICAID - MEDICAID [facility] xxxxxxxxx Medicaid [employer] Contracted PLAN
--- OUTSIDE RECORDS SUMMARY | 2018-10-29 21:22 | XMS REPORT | Clinical Summary ---
Author Author [facility] [place] [facility] Address Unknown Phone Unavailable Care Team Providers Care Valet Parking Attendant Name Role Phone Asked, No Pcp PCP [...] 09/25/2018 Alexandre Blackmon DO Keller, Jason James, CHEMISTRY SPECIALIST-C Contusion of left great toe without damage to nail, initial encounter (Primary Dx); Chronic chest pain; Personality disorder (HCC) 05/17/2018 Emergency Emergency Medicine Jayden Broderick MD Alberto, Paul, MD Chest pain, unspecified type (Primary Dx) 05/01/2018 Hospital General Surgery - Encounter 05/04/2018 Patel Hammonds MD Cv right heart cath [[id number] (CPT)] 03/10/2018 Surgery Procedural Cardiology Behzad Samano MD Yerramadha, Muralidhar Reddy, MD Acute on chronic diastolic congestive heart failure (HCC) (Primary Dx); Chest pain, unspecified type; PALLAVI (obstructive sleep apnea); Morbid obesity due to excess calories (HCC); Precordial pain; Bilateral swelling of feet 03/03/2018 Hospital General Surgery - Encounter 03/10/2018 Farzad Santos MD CV LEFT HEART CATH LV GRAM WITH CORS [[id number] (CPT)] 12/24/2017 Surgery Procedural Cardiology Zaid Russell MD Bavare, Arusha Amod, MD Yerramadha, Muralidhar Reddy, MD Chest pain, unspecified type (Primary Dx); Cutaneous abscess of abdominal wall; Precordial pain; Bilateral swelling of feet 12/22/2017 Emergency General Internal Medicine - 12/24/2017 after 10/28/2017 Family History Medical History Relation Name Comments [...] Lot Implanted Type Area Manufactur er 08/17/2018 [id number] / / [id number] Device Vasclr Clsr Vasoactive Cardiovasc Right: Groin Intstnl Peptd 6fr Angio-Seal - ular [id number] Implants Implanted: Qty: 1 on 12/24/2017 by Farzad Santos MD at [facility] . Description:plate in the neck Procedures [...] RIGHT HEART CATH Routine 03/10/2018 3:08 PM RAIL CAR REPAIRMAN POC CG8, ARTERIAL Routine 03/10/2018 2:55 PM RAIL CAR REPAIRMAN POC CG8, ARTERIAL Routine 03/10/2018 2:44 PM RAIL CAR REPAIRMAN ESTIMATED GFR Routine 03/10/2018 7:10 AM RAIL CAR REPAIRMAN HC COMPLETE BLD COUNT Routine 03/10/2018 W/AUTO DIFF 7:10 AM RAIL CAR REPAIRMAN BASIC METABOLIC PANEL Routine 03/10/2018 7:10 AM RAIL CAR REPAIRMAN TYPE AND SCREEN Routine 03/10/2018 12:10 AM RAIL CAR REPAIRMAN ARTERIAL BLOOD GAS Routine 03/08/2018 5:01 PM RAIL CAR REPAIRMAN ESTIMATED GFR Routine 03/07/2018 5:50 AM RAIL CAR REPAIRMAN MAGNESIUM LEVEL Routine 03/07/2018 5:50 AM RAIL CAR REPAIRMAN BASIC METABOLIC PANEL Routine 03/07/2018 5:50 AM RAIL CAR REPAIRMAN XR CHEST 1 VW PORTABLE Routine 03/06/2018 6:45 AM RAIL CAR REPAIRMAN ESTIMATED GFR Routine 03/06/2018 5:05 AM RAIL CAR REPAIRMAN MAGNESIUM LEVEL Routine 03/06/2018 5:05 AM RAIL CAR REPAIRMAN BASIC METABOLIC PANEL Routine 03/06/2018 5:05 AM RAIL CAR REPAIRMAN ESTIMATED GFR Routine 03/05/2018 4:16 AM RAIL CAR REPAIRMAN MAGNESIUM LEVEL Routine 03/05/2018 4:16 AM RAIL CAR REPAIRMAN BASIC METABOLIC PANEL Routine 03/05/2018 4:16 AM RAIL CAR REPAIRMAN ESTIMATED GFR Routine 03/04/2018 6:08 PM RAIL CAR REPAIRMAN MAGNESIUM LEVEL Routine 03/04/2018 6:08 PM RAIL CAR REPAIRMAN BASIC METABOLIC PANEL Routine 03/04/2018 6:08 PM RAIL CAR REPAIRMAN GRAM STAIN STAT 03/04/2018 8:34 AM RAIL CAR REPAIRMAN URINE CULTURE STAT 03/04/2018 8:34 AM RAIL CAR REPAIRMAN URINALYSIS SCREEN AND STAT 03/04/2018 MICROSCOPY, WITH REFLEX 7:40 AM RAIL CAR REPAIRMAN TO CULTURE ESTIMATED GFR Timed 03/04/2018 3:10 AM RAIL CAR REPAIRMAN BASIC METABOLIC PANEL Timed 03/04/2018 3:10 AM RAIL CAR REPAIRMAN HC COMPLETE BLD COUNT Timed 03/04/2018 W/AUTO DIFF 3:10 AM RAIL CAR REPAIRMAN TROPONIN Timed 03/04/2018 3:10 AM RAIL CAR REPAIRMAN ECG 12-LEAD Routine 03/04/2018 1:27 AM RAIL CAR REPAIRMAN TROPONIN Timed 03/04/2018 12:31 AM RAIL CAR REPAIRMAN XR CHEST 1 VW PORTABLE STAT 03/03/2018 9:26 PM RAIL CAR REPAIRMAN ECG 12-LEAD STAT 03/03/2018 9:08 PM RAIL CAR REPAIRMAN D-DIMER STAT 03/03/2018 9:08 PM RAIL CAR REPAIRMAN ESTIMATED GFR STAT 03/03/2018 9:08 PM RAIL CAR REPAIRMAN B NATRIURETIC PEPTIDE STAT 03/03/2018 9:08 PM RAIL CAR REPAIRMAN TROPONIN STAT 03/03/2018 9:08 PM RAIL CAR REPAIRMAN COMPREHENSIVE METABOLIC STAT 03/03/2018 PANEL 9:08 PM RAIL CAR REPAIRMAN PARTIAL THROMBOPLASTIN STAT 03/03/2018 TIME (PTT) 9:08 PM RAIL CAR REPAIRMAN PROTHROMBIN TIME WITH INR STAT 03/03/2018 9:08 PM RAIL CAR REPAIRMAN HC COMPLETE BLD COUNT STAT 03/03/2018 W/AUTO DIFF 9:08 PM RAIL CAR REPAIRMAN ECG ED PRELIMINARY Routine 03/03/2018 INTERPRETATION 9:06 PM RAIL CAR REPAIRMAN CV LEFT HEART CATH LV Routine 12/24/2017 GRAM WITH CORS 10:16 AM RAIL CAR REPAIRMAN ECG 12-LEAD Routine 12/24/2017 7:03 AM RAIL CAR REPAIRMAN ESTIMATED GFR Routine 12/24/2017 5:00 AM RAIL CAR REPAIRMAN HC COMPLETE BLD COUNT Routine 12/24/2017 W/AUTO DIFF 5:00 AM RAIL CAR REPAIRMAN BASIC METABOLIC PANEL Routine 12/24/2017 5:00 AM RAIL CAR REPAIRMAN TYPE AND SCREEN Routine 12/24/2017 5:00 AM RAIL CAR REPAIRMAN PARTIAL THROMBOPLASTIN Routine 12/24/2017 TIME (PTT) 5:00 AM RAIL CAR REPAIRMAN PROTHROMBIN TIME WITH INR Routine 12/24/2017 5:00 AM RAIL CAR REPAIRMAN TROPONIN Timed 12/23/2017 6:57 PM RAIL CAR REPAIRMAN NM MYOCARDIAL PERFUSION Routine 12/23/2017 STRESS ONLY 2:52 PM RAIL CAR REPAIRMAN CV STRESS TEST NUCLEAR Routine 12/23/2017 CARDIO 2:52 PM RAIL CAR REPAIRMAN TROPONIN Timed 12/23/2017 1:57 PM RAIL CAR REPAIRMAN ECHOCARDIOGRAM 2D Routine 12/22/2017 COMPLETE W MMODE SPECTRAL 6:32 PM RAIL CAR REPAIRMAN COLOR DOPPLER (63941) TROPONIN Timed 12/22/2017 10:58 AM RAIL CAR REPAIRMAN TROPONIN Timed 12/22/2017 6:15 AM RAIL CAR REPAIRMAN CT ANGIOGRAM PE CHEST STAT 12/22/2017 5:48 AM RAIL CAR REPAIRMAN ECG 12-LEAD STAT 12/22/2017 4:28 AM RAIL CAR REPAIRMAN XR CHEST 1 VW PORTABLE STAT 12/22/2017 3:52 AM RAIL CAR REPAIRMAN ESTIMATED GFR STAT 12/22/2017 3:36 AM RAIL CAR REPAIRMAN B NATRIURETIC PEPTIDE STAT 12/22/2017 3:36 AM RAIL CAR REPAIRMAN TROPONIN STAT 12/22/2017 3:36 AM RAIL CAR REPAIRMAN LIPASE LEVEL STAT 12/22/2017 3:36 AM RAIL CAR REPAIRMAN HEPATIC FUNCTION PANEL STAT 12/22/2017 3:36 AM RAIL CAR REPAIRMAN BASIC METABOLIC PANEL STAT 12/22/2017 3:36 AM RAIL CAR REPAIRMAN HC COMPLETE BLD COUNT STAT 12/22/2017 W/AUTO DIFF 3:36 AM RAIL CAR REPAIRMAN ECG ED PRELIMINARY Routine 12/22/2017 INTERPRETATION 3:28 AM RAIL CAR REPAIRMAN after 10/28/2017 Results * Estimated GFR (09/24/2018 8:52 PM CDT) Only the most recent of 15 results within the time period is included. Estimated GFR 71 mL/min/1.73 m2 ART Comment: [facility] [facility] rpretation G1 >=90 Normal or high G2 60-89Mildly decreased X9l09-02 Mildly to moderately decreased F1l33-29 Moderately to severely decreased G4 15-29Severely decreased G5 <15Kidney failure The eGFR was calculated using the Chronic Kidney Disease Epidemiology Collaboration (CKD-EPI) equation. Interpretation is based on recommendations of the National Kidney Foundation-Kidney Disease Outcomes Quality Initiative (NKF-KDOQI) published in 2014. Specimen Plasma specimen Performing Organization Address City/State/Zipcode [place] [address] [place] [place] [address] PATHOLOGY [facility] [place] [address] [address] * Troponin (09/24/2018 8:52 PM CDT) Only the most recent of 13 results within the time period is included. Pathologist [facility] Troponin <0.006 0.000 - 0.040 ng/mL ART Comment: ANTONIO GLOVER [facility] changed methodology effective: 06/24/2018 at 10:00 am The new method has a 99th percentile cutoff of 0.040 ng/mL Specimen Plasma specimen Performing Organization Address [facility] Phone Number [facility] DEPARTMENT [place] [address] [address] [place] [address] [address] * Partial thromboplastin time, activated (09/24/2018 8:52 PM CDT) Only the most recent of 4 results within the time period is included. Pathologist [facility] PTT 28.8 23.0 - 36.0 sec ART Comment: ANTONIO GLOVER PTT therapeutic range for [facility] unfractionated heparin is 61.0-112.0 seconds which corresponds to Anti-Xa 0.3-0.7 U/ml. Specimen Blood Performing Organization Address [facility] Phone Number [facility] DEPARTMENT [place] [address] [address] [place] [address] [address] * Prothrombin time with INR (09/24/2018 8:52 PM CDT) Only the most recent of 4 results within the time period is included. Pathologist [facility] Prothrombin 12.5 11.5 - 14.5 sec [facility] INR 1.0 ART Comment: ANTONIO GLOVER The International Normalized [facility] Ratio (INR) is a therapeutic monitoring tool for patients who are stable on oral anticoagulant therapy. An INR of 2.0-3.0 is suggested for deep vein thrombosis/pulmonary embolism. Specimen Blood Performing Organization Address [facility] Phone Number [facility] DEPARTMENT [place] [address] [address] [place] [address] [facility] MEDICINE ART [place] [address] * CBC with platelet and differential (09/24/2018 8:52 PM CDT) Only the most recent of 10 results within the time period is included. WBC 7.66 4.50 - 11.00 k/uL [facility] RBC 4.07 (L) 4.40 - 6.00 m/uL [facility] HGB 12.4 (L) 14.0 - 18.0 g/dL [facility] HCT 37.7 (L) 41.0 - 51.0 % [facility] MCV 92.6 82.0 - 100.0 fL [facility] MCH 30.5 27.0 - 34.0 pg [facility] MCHC 32.9 31.0 - 37.0 g/dL [facility] RDW - SD 46.9 37.0 - 55.0 fL [facility] MPV 9.8 8.8 - 13.2 fL [facility] Platelet count 203 150 - 400 k/uL [facility] Nucleated RBC 0.30 /100 WBC [facility] Neutrophils 61.5 39.0 - 69.0 % [facility] Lymphocytes 26.8 25.0 - 45.0 % [facility] Monocytes 6.7 0.0 - 10.0 % [facility] Eosinophils 2.7 0.0 - 5.0 % [facility] Basophils 0.5 0.0 - 1.0 % [facility] Specimen Blood Performing Organization Address City/State/Zipcode Phone Number [facility] DEPARTMENT [place] [address] [address] [place] [phone] PATHOLOGY AND GENOMIC MEDICINE [place] [address] [address] * B natriuretic peptide (09/24/2018 8:52 PM CDT) Only the most recent of 5 results within the time period is included. BNP 25 0 - 100 pg/mL [facility] Specimen Blood Performing Organization Address City/[facility]/Zipcode Phone Number [facility] [place] [address] [address] [place] [phone] PATHOLOGY AND GENOMIC MEDICINE [facility] [address] [address] * Comprehensive metabolic panel (09/24/2018 8:52 PM CDT) Only the most recent of 3 results within the time period is included. Sodium 138 135 - 148 mEq/L [facility] Potassium 4.0 3.5 - 5.0 mEq/L [facility] Chloride 98 98 - 112 mEq/L [facility] CO2 29 24 - 31 mEq/L [facility] Anion gap 11@ANIO 7 - 15 mEq/L [facility] BUN 18 6 - 20 mg/dL [facility] Creatinine 1.20 0.70 - 1.20 mg/dL [facility] Glucose 268 (H) 65 - 99 mg/dL [facility] Calcium 9.2 8.3 - 10.2 mg/dL [facility] Protein 6.3 6.3 - 8.3 g/dL ART Comment: [facility] 4.6-7.0 g/dL 1 week 4.4-7.6 g/dL 7 months-1year 5.1-7.3 g/dL 1-2 years5.6-7 .5 g/dL >3 years6.0-8 .0 g/dL 18-150 6.3-8.3 g/dL Albumin 3.6 3.5 - 5.0 g/dL [facility] A/G ratio 1.3 0.7 - 3.8 [facility] Alkaline 121 40 - 129 U/L ART phosphatase [facility] AST 24 10 - 50 U/L [facility] ALT 21 5 - 50 U/L [facility] Total bilirubin 0.3 0.0 - 1.2 mg/dL [facility] Specimen Plasma specimen Performing Organization Address City/State/Zipcode [place] Number [place] [address] [place] [phone] PATHOLOGY AND GENOMIC MEDICINE [facility] [address] [address] * XR Chest 1 Vw (09/24/2018 8:10 PM CDT) Specimen Narrative Performed At EXAMINATION:XR CHEST 1 VW [facility] CLINICAL HISTORY:Chest painacutenonspecificlow prob CAD COMPARISON: May 17, 2018 . IMPRESSION: 1.Heart size is normal. Median sternotomy wires overlie the midline. 2.Interval left basilar atelectasis. 3.No pneumothorax. 4.Osseous structures are intact. [id number] Procedure Note Hm Interface, Radiology Results Incoming - 09/24/2018 8:24 PM CDT EXAMINATION: XR CHEST 1 VW CLINICAL HISTORY: Chest pain acute nonspecific low prob CAD COMPARISON: May 17, 2018 . IMPRESSION: 1. Heart size is normal. Median sternotomy wires overlie the midline. 2. Interval left basilar atelectasis. 3. No pneumothorax. 4. Osseous structures are intact. [id number] Performing Organization Address City/[facility]/Zipcode Phone Number [facility] [address] [place] [address] * POC glucose (09/24/2018 7:35 PM CDT) Only the most recent of 10 results within the time period is included. POC glucose 299 (H) 65 - 99 mg/dL ART Comment: ANTONIO GLOVER Meter ID: [id number] [facility] Freight And Passenger Agent: Shun Garcia (TECH) Specimen Performing Organization Address City/[facility]/Zipcode [place] Number [place] [address] [place] [address] PATHOLOGY AND GENOMIC MEDICINE ART ANTONIO GLOVER [address] [place] [address] [facility] * ECG 12 lead (09/24/2018 7:32 PM CDT) Only the most recent of 8 results within the time period is included. Ventricular 95 [facility] MUSE rate Atrial rate 95 [facility] MUSE [place] interval 152 [facility] QRSD interval 92 [...] Specimen Narrative Performed At Performing Organization Address [facility] Phone Number [facility] MUSE [address] [place] [address] * ECG ED Preliminary Interpretation - Not an Order (09/24/2018 7:32 PM CDT) Only the most recent of 5 results within the time period is included. Narrative Performed At Pepito Slade MD 09/25/2018 12:13 AM ECG ED Preliminary Interpretation - Not an Order Performed by: Pepito Slade MD Authorized by: Pepito Slade MD ECG reviewed by ED Physician in the absence of a program host: yes (2007) Interpretation: Interpretation: normal Rate: ECG [...] included. Magnesium 1.7 1.6 - 2.6 mg/dL [facility] Specimen Plasma specimen Performing Organization Address [facility] Phone Number [address] [place] [address] PATHOLOGY AND GENOMIC MEDICINE [address] * Creatine kinase, total (CPK) (05/17/2018 6:15 PM CDT) Creatine kinase 114 39 - 308 U/L [facility] Specimen Plasma specimen Performing Organization Address [facility] Phone Number [address] [place] [address] PATHOLOGY AND GENOMIC MEDICINE [address] * XR Toe 2+ Vw Left [...] of the IP joint of the hallux. [id number] Procedure Note Interface, Radiology Results Incoming - [...] of the IP joint of the hallux. [id number] Performing Organization Address [facility] Phone Number [facility] [address] [place] [address] * XR Chest 2 Vw (05/17/2018 6:05 [...] process or active disease of the chest. [id number] Procedure Note Interface, Radiology Results Incoming - [...] process or active disease of the chest. [id number] Performing Organization Address City/[facility]/Zipcode Phone Number [facility] [address] [place] [address] * Basic metabolic panel (05/04/2018 5:35 AM CDT) Only the most recent of 12 results within the time period is included. Sodium 132 (L) 135 - 148 mEq/L [facility] Potassium 4.8 3.5 - 5.0 mEq/L [facility] Chloride 94 (L) 98 - 112 mEq/L [facility] CO2 26 24 - 31 mEq/L [facility] Anion gap 12@ANIO 7 - 15 mEq/L [facility] BUN 22 (H) 6 - 20 mg/dL [facility] Creatinine 1.10 0.70 - 1.20 mg/dL [facility] Glucose 318 (H) 65 - 99 mg/dL [facility] Calcium 9.9 8.3 - 10.2 mg/dL [facility] Specimen Plasma specimen Performing Organization Address [facility] Phone Number [address] [place] [address] PATHOLOGY AND GENOMIC MEDICINE [address] * Hemoglobin A1c (05/03/2018 5:32 AM CDT) Hemoglobin A1C 6.5 (H) 4.0 - 6.0 % ART Comment: [place] [facility] Less than 6% - Goal of therapy for Type II Diabetes Less than 7%-Goal of therapy for Type I Diabetes Less than 8%-Accepta ble control for Type I or Type II Diabetes Greater than 8%-Unacceptabl e control; action indicated. (ADA94) Specimen Blood Performing Organization Address [facility] Phone Number [address] [place] [address] PATHOLOGY AND GENOMIC MEDICINE [address] * XR Chest 1 Vw Portable [...] effusion. There is no acute skeletal finding. [id number] Procedure Note Interface, Radiology Results Incoming - [...] effusion. There is no acute skeletal finding. [id number] Performing Organization Address City/State/Zipcode Phone Number [facility] [address] [place] [address] * Cv quality control lab technician procedure (03/10/2018 3:08 PM RAIL CAR REPAIRMAN) Specimen Narrative Performed At [employer] Lui Lopez 1970 [id number] 03/10/18 Indications: Pulmonary hypertension Procedures: RHC with cardiac output Closure: Manual compression Access site: Right internal jugular vein Procedure details: Risks and benefits were discussed with the patient, informed consent was obtained. Patient was brought to the quality control lab technician in a fasting state and [...] 03/10/18 Patel Hammonds MD Performing Organization Address City/[facility]/Zipcode Phone Number [facility] [address] [place] [address] * POC CG8, arterial (03/10/2018 2:55 PM RAIL CAR REPAIRMAN) Only the most recent of 2 results within the time period is included. Pathologist [facility] POC sodium 140 135 - 148 mmol/L [facility] POC potassium 3.6 3.5 - 5.0 mmol/L [facility] POC hematocrit 38 (L) 41 - 51 % [facility] Ionized 1.17 1.11 - 1.32 mmol/L ART [facility] arterial, [facility] pH, arterial, 7.37 7.35 - 7.45 [facility] pCO2, arterial, 47 (H) 35 - 45 mm Hg [facility] pO2, arterial, 30 (LL)Comment: MD/RN aware of 80 - 90 mm Hg ART POC results! [facility] O2 saturation, 54 (L) 95 - 100 % ART arterial, [facility] Base excess, 2 -2 - 2 mmol/L ART arterial, [facility] Bicarbonate, 27.4 21.0 - 28.0 mmol/L [facility] CO2 calculated, 29 24 - 31 mmol/L ART arterial, [facility] POC glucose 109 (H) 65 - 99 mg/dL [facility] Specimen Performing Organization Address [facility] Phone Number [facility] [place] [id number] [place] [address] [place] [address] PATHOLOGY AND GENOMIC MEDICINE [address] [place] [address] [facility] * Type and screen (03/10/2018 12:10 AM RAIL CAR REPAIRMAN) Only the most recent of 2 results within the time period is included. ABO grouping O [facility] Rh type NEG [facility] Antibody screen NEG [facility] Specimen Blood Performing Organization Address City/[facility] Phone Number [facility] [place] [id number] [place] [address] [place] [address] PATHOLOGY AND GENOMIC MEDICINE [address] * Arterial blood gas (03/08/2018 5:01 PM RAIL CAR REPAIRMAN) [facility] pH, arterial 7.44 7.35 - 7.45 [facility] pCO2, arterial 39 35 - [address] [facility] pO2, arterial 78 (L) 80 - [address] [facility] Bicarbonate, 26.5 21.0 - 28.0 mmol/L [facility] Base excess, 3 (H) -2 - 2 mEq/L [facility] O2 saturation, 97 95 - 100 % [facility] FiO2, inspired Unknown % ART O2% [facility] Specimen Blood Performing Organization Address [facility] Phone Number [facility] DEPARTMENT [address] [place] [address] PATHOLOGY AND GENOMIC MEDICINE [address] * Gram stain (03/04/2018 8:34 AM RAIL CAR REPAIRMAN) [facility] Gram stain Moderate WBC's ART result Few Gram positive rods [place] Comment: HOSPITAL Specimen Information Specimen Source: Urine Specimen Site: Catheterized Specimen Urine - Catheterized Performing Organization Address City/[facility] Phone Number [facility] [place] [address] PATHOLOGY AND GENOMIC MEDICINE [address] * Urine culture (03/04/2018 8:34 AM RAIL CAR REPAIRMAN) [facility] Urine culture Mixed erendira <=10-3 col/cc ART isolate Comment: [place] Specimen Information HOSPITAL Specimen Source: Urine Specimen Site: Catheterized Specimen Urine - Catheterized Performing Organization Address City/[facility]/Zipcode Phone Number [facility] DEPARTMENT OF [address] [place] [address] PATHOLOGY AND GENOMIC MEDICINE [address] * Urinalysis screen and microscopy, with reflex to culture (03/04/2018 7:40 AM RAIL CAR REPAIRMAN) Pathologist [facility] Specimen site Catheterized [facility] Color, UA Yellow [facility] Appearance, UA Clear [facility] Specific 1.024 1.001 - 1.035 ART gravity, UA [facility] pH, UA 5.0 5.0 - 8.5 [facility] Protein, UA Negative Negative [facility] Glucose, UA 3+ (A) Negative [facility] Ketones, UA Trace (A) Negative [facility] Bilirubin, UA Negative Negative [facility] Blood, UA Negative Negative [facility] Nitrite, UA Negative Negative [facility] Urobilinogen, Negative <2.0 [facility] Leukocyte Small (A) Negative ART esterase, [facility] Epithelial Few /HPF ART cells, UA [facility] Round Few 0 - 1 /HPF ART epithelial [facility] [facility]. cells, [facility] WBC, UA 6-10 (H) 0 - 1 /HPF [facility] RBC, UA 0-5 0 - 5 /HPF [facility] Bacteria, UA None seen None seen [facility] Yeast, UA None seen [facility] Yeast with None seen [facility] Specimen Urine Performing Organization Address City/State/Zipcode Phone Number [facility] [place] [address] [place] [address] PATHOLOGY AND GENOMIC MEDICINE [facility] [address] [place] [address] [facility] * D-dimer (03/03/2018 9:08 PM RAIL CAR REPAIRMAN) [facility] D-dimer <0.27 0.00 - 0.40 ug/mL ART Comment: [facility] Units are ug/ml Fibrinogen [facility] Equivalent Unit. When combined with low [...] Performing Organization Address City/State/Zipcode Phone Number [facility] [place] [address] [place] [address] PATHOLOGY AND GENOMIC MEDICINE [facility] [address] [place] [address] [facility] * Cv quality control lab technician procedure (12/24/2017 10:16 AM RAIL CAR REPAIRMAN) Specimen Narrative Performed At AMADEO Santos MD Physician Signed CardiologyBrief Op Note Date of Service: 12/24/2017 8:53 AM Case Time: 12/24/2017 8:53 AM Surgeon: Farzad Santos MD Procedure: CV LEFT HEART CATH LV GRAM WITH CORS Location: [facility] Furniture Dipper Invasive Location []Hide copied text []Hover for attribution information Cardiac Catheterization Operative Note Lui Lopez,[phone] [id number] y.o. male 12/24/2017; [facility] HOME CARE LIAISON RM 1 Procedure(s): CV LEFT HEART CATH [...] consent patient was brought in to the quality control lab technician and was prepped and draped [...] Implant Name Type Inv. Item Serial No. Breaker Layer Lot No. LRB No. Used Action DEVICE VASCLR CLSR VASOACTIVE INTSTNL PEPTD 6FR ANGIO-SEAL - [id number] Cardiovascular Implants DEVICE VASCLR CLSR VASOACTIVE INTSTNL PEPTD 6FR ANGIO-SEAL [id number] Right 1 Implanted Impression: Normal coronaries Elevated LVEDP Farzad Santos MD Date: 12/24/2017Time: 10:06 AM Performing Organization Address [facility] Phone Number [facility] [address] [place] [address] * Cv stress test (12/23/2017 2:52 PM RAIL CAR REPAIRMAN) Resting BP [facility] Protocol Name CHRISTA [...] ECG report.-Electronically Signed By Tom LOGAN, Farzad ([id number]), book or script editor Merline Palmer ([id number]) on 12/24/2017 10:25:10 AM Specimen Performing Organization Address [facility] Phone Number [facility] [address] [place] [address] * Nm myocardial perfusion (12/23/2017 2:52 PM RAIL CAR REPAIRMAN) Target HR 173.00 bpm [facility] Resting [...] Address City/State/Zipcode Phone Number [facility] [address] [place] [address] * Echocardiogram complete w contrast and 3D if needed (12/22/2017 6:32 PM RAIL CAR REPAIRMAN) Velocity Ratio 0.99 m/s [facility] (V1/V2) [...] 6.28 mmHg [facility] MV Peak E Ayl 0.95 m/s [facility] MV stenosis 55.55 [...] LV EF,BP 54.62 % [facility] [place],d A2C 8.13 cm [facility] [place],d A4C 8.20 cm [facility] [place],s A2C 6.33 cm [facility] [place],s A4C 6.75 cm [facility] LV SV,A2C [...] Address City/State/Zipcode Phone Number [facility] [address] [place] [address] * CT Angiogram Pe Chest (12/22/2017 5:48 AM RAIL CAR REPAIRMAN) Specimen Narrative Performed At EXAMINATION: CT ANGIOGRAM [...] enlarged. This is incompletely included in the [id number]-xe-ztef. 9. Other Findings: None SUMMARY: 1. No CT scan evidence of acute pulmonary embolus. 2.Interstitial pulmonary congestion and mild pulmonary edema. No acute infiltrates. [facility]-[id number] Procedure Note Interface, Radiology Results [facility] - 12/22/2017 6:02 AM RAIL CAR REPAIRMAN EXAMINATION: CT ANGIOGRAM PE CHEST CLINICAL HISTORY: [...] enlarged. This is incompletely included in the [id number]-jb-mtop. 9. Other Findings: None SUMMARY: 1. No CT scan evidence of acute pulmonary embolus. 2. Interstitial pulmonary congestion and mild pulmonary edema. No acute infiltrates. [facility]-[id number] Performing Organization Address City/[facility]/Zipcode Phone Number [facility] [address] [place] [address] * Lipase level (12/22/2017 3:36 AM RAIL CAR REPAIRMAN) Pathologist [facility] Lipase 30 13 - 60 U/L [facility] DEPARTMENT OF PATHOLOGY AND GENOMIC MEDICINE Specimen Plasma specimen Performing Organization Address City/[facility]/Zipcode [place] [address] PATHOLOGY AND [facility] * Hepatic function panel (12/22/2017 3:36 AM RAIL CAR REPAIRMAN) Pathologist [facility] Albumin 4.2 3.5 - 5.0 g/dL [facility] DEPARTMENT OF PATHOLOGY AND GENOMIC MEDICINE Total bilirubin 0.3 0.0 - 1.2 mg/dL [facility] DEPARTMENT OF PATHOLOGY AND GENOMIC MEDICINE Bilirubin <0.1 0.0 - 0.3 mg/dL [facility] direct DEPARTMENT OF PATHOLOGY AND GENOMIC MEDICINE Alkaline 86 40 - 129 U/L [facility] phosphatase DEPARTMENT OF PATHOLOGY AND [facility] Protein 7.2 6.3 - 8.3 g/dL [facility] Comment: DEPARTMENT OF PATHOLOGY AND 4.6-7.0 g/dL GENOMIC MEDICINE week 4.4-7.6 g/dL 7 months-1year 5.1-7.3 g/dL 1-2 years5.6-7 .5 g/dL >3 years6.0-8 .0 g/dL 18-150 6.3-8.3 g/dL ALT 24 5 - 50 U/L [facility] DEPARTMENT OF PATHOLOGY AND GENOMIC MEDICINE AST 35 10 - 50 U/L [facility] DEPARTMENT OF PATHOLOGY AND GENOMIC MEDICINE Specimen Plasma specimen Performing Organization Address City/State/Zipcode Phone Number [facility] [place] [address] 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
--- OUTSIDE RECORDS SUMMARY | 2018-10-29 21:22 | XMS REPORT | Clinical Summary ---
Author Author [facility] Organization [facility] Address Unknown Phone Unavailable Care Team Providers Care Freight Separator Name Role Phone PCP Unavailable Allergies Comments [...] risk for falls 04/24/2018 Therapy Physical Therapy after 10/28/2017 Social History Date Tobacco Use Types Packs/Day Years Used Never Assessed Sex Assigned at Date Recorded Not on file Industry Job Start Date Occupation Not on file Not on file Not on file Travel End Travel History Travel Start No recent travel history available. Last Filed Vital Signs Reading Time Taken Comments Vital Sign 117/74 04/24/2018 2:06 PM OUTSEWER Blood Pressure 81 04/24/2018 2:06 PM OUTSEWER Pulse - - Temperature - - Respiratory Rate 96% 04/24/2018 2:06 PM OUTSEWER Oxygen Saturation - - Inhaled Oxygen Concentration - - Weight - - Height - - Body Mass Index Plan of Treatment Health Maintenance Due Date Last Done Comments IMM Influenza Seasonal 11/18/2018Nov to April (>/=19 yrs) Results Not on fileafter 10/28/2017 Insurance Type Payer Benefit Subscriber ID Effective Phone Address Plan / Dates Group [facility] xxxxxxxxx 2017- [phone] COMMUNITY Present [id number] [place] [address] Advance Directives Date Inactivated Comments Code Status Date Activated 07/04/2010 9:05 PM Full Code 07/03/2010 10:11 AM
--- OUTSIDE RECORDS SUMMARY | 2018-10-29 21:23 | XMS REPORT | Continuity of Care Document ---
Author Author [facility] Organization [facility] Address Unknown Phone Unavailable Care Team Providers Care Bi Data Modeler Name Role Phone [employer] 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) Information Exchange Unavailable Unavailable Problems Problem Status Onset Date Classification Date Reported Comments Source Physical deconditioning Active 04/25/2018 09/03/2018 [facility] Impaired mobility and ADLs Active 04/25/2018 09/03/2018 [facility] Impaired gait and mobility Active 04/25/2018 09/03/2018 [facility] At risk for falls Active 04/25/2018 09/03/2018 [facility] Chest pain Active 07/03/2010 09/03/2018 [facility] Pulmonary embolus Active 07/03/2010 09/03/2018 [facility] Syncope Active Problem 05/29/2018 [facility] TIA Active Problem 05/29/2018 [facility] Medications Medication Details Route Status Patient Instructions Ordering Provider Order Date Source Aspirin (Aspir 81) 81 Mg Tablet.dr Alvarenga Active Lakesha 04/10/2018 [facility] Hydroxyzine Hcl 25 Mg Tablet, 50 Mg Oral Every 8 Hours as needed for Anxiety Active 02/09/2018 [facility] Prednisone 10 Mg Tab, 10 Mg Oral Twice A Day Active 02/09/2018 [facility] clopidogrel (PLAVIX) 75 mg tablet Take 1 Tab by mouth daily. Oral Active 07/04/2010 [facility] gabapentin (NEURONTIN) 300 mg capsule Take 2 Caps by mouth 2 times daily. Oral Active 07/04/2010 [facility] nitroGLYCERIN (NITROSTAT) 0.[address] 1 Tab under tongue every 5 minutes as needed for Chest pain. Sublingual Active 07/04/2010 [facility] warfarin (COUMADIN) 7.5 mg tablet Take 1 Tab by mouth daily (warfarin). Oral Active 07/04/2010 [facility] risperdone (RISPERDAL) 1 mg tablet Take by mouth every morning. 0.5mg in am2.5mg in pmAs previously instructed Oral Active 07/04/2010 [facility] famotidine (PEPCID) 20 mg tablet Take 1 Tab by mouth 2 times daily. Oral Active 07/04/2010 [facility] lisinopril (PRINIVIL, ZESTRIL) 2.5 mg tablet Take 8 Tabs by mouth daily. Oral Active 07/04/2010 [facility] metoprolol tartrate (LOPRESSOR) 25 mg tablet Take 1 Tab by mouth 2 times daily. Oral Active 07/04/2010 [facility] rosuvastatin (CRESTOR) 10 mg tablet Take 1 Tab by mouth at bedtime. Oral Active 07/04/2010 [facility] nitroGLYCERIN (NITROSTAT) 0.[address] 1 Tab under tongue every 5 minutes as needed for Chest pain. Sublingual Active 07/04/2010 [facility] rosuvastatin (CRESTOR) 10 mg tablet Take 1 Tab by mouth at bedtime. Oral Active 07/04/2010 [facility] Atorvastatin Calcium 20 Mg Tablet Bedtime Active [facility] Carisoprodol (Soma) 350 Mg Tablet Every 8 Hours as needed for Cramps Active [facility] Clopidogrel Bisulfate (Plavix) 75 Mg Tablet Daily Active [facility] Doxepin Hcl 25 Mg Capsule Qhs Active [facility] Duloxetine Hcl (Cymbalta) 30 Mg Capsule.dr Alvarenga Active [facility] Furosemide 40 Mg Tablet Twice A Day Active [facility] Hydroxyzine Hcl 25 Mg Tablet Every 8 Hours as needed for Anxiety Active [facility] Lamotrigine (Lamictal) 25 Mg Tab Twice A Day Active [facility] Levetiracetam (Keppra) 500 Mg Tablet Twice A Day Active [facility] Lorazepam 0.5 Mg Tablet Every 8 Hours as needed for Anxiety Active [facility] Metoprolol Tartrate 25 Mg Tablet Twice A Day Active [facility] Mirtazapine 15 Mg Tab Qhs Active [facility] Pantoprazole Sodium (Protonix) 40 Mg Tablet.dr Alvarenga Active [facility] Prednisone 10 Mg Tab Twice A Day Active [facility] Pregabalin (Lyrica) 50 Mg Cap Twice A Day Active [facility] Promethazine Hcl 25 Mg Tablet Every 6 Hours as needed for Nasal Congestion Active [facility] Quetiapine Fumarate 25 Mg Tablet Every Morning Active [facility] Quetiapine Fumarate 100 Mg Tablet Qhs Active [facility] Rivaroxaban (Xarelto) 20 Mg Tablet Daily Active [facility] Trazodone Hcl 50 Mg Tablet Qhs Active [facility] Atorvastatin Calcium 20 Mg Tablet Bedtime Active [facility] Carisoprodol (Soma) 350 Mg Tablet Every 8 Hours as needed for Cramps Active [facility] Clopidogrel Bisulfate (Plavix) 75 Mg Tablet Daily Active [facility] Doxepin Hcl 25 Mg Capsule Qhs Active [facility] Duloxetine Hcl (Cymbalta) 30 Mg Capsule. Twice A Day Active [facility] Fenofibrate (Tricor) 145 Mg Tab Daily Active [facility] Furosemide 40 Mg Tablet Twice A Day Active [facility] Isosorb Erie/Imdur Daily Active [facility] Lamotrigine (Lamictal) 25 Mg Tab Twice A Day Active [facility] Levetiracetam (Keppra) 500 Mg Tablet Twice A Day Active [facility] Lorazepam 0.5 Mg Tablet Every 8 Hours as needed for Anxiety Active [facility] Meloxicam (Mobic) 15 Mg Tablet Daily Active [facility] Metformin Hcl 1,000 Mg Tablet Twice A Day Active [facility] Metoprolol Tartrate 25 Mg Tablet Twice A Day Active [facility] Mirtazapine 15 Mg Tab Qhs Active [facility] Pantoprazole Sodium (Protonix) 40 Mg Tablet. Daily Active [facility] Pregabalin (Lyrica) 50 Mg Cap Twice A Day Active [facility] Promethazine Hcl 25 Mg Tablet Every 6 Hours as needed for Nasal Congestion Active [facility] Quetiapine Fumarate 25 Mg Tablet Every Morning Active [facility] Quetiapine Fumarate 100 Mg Tablet Qhs Active [facility] Ranolazine (Ranexa) 500 Mg Tabsr Twice A Day Active [facility] Risperidone (Risperdal) 1 Mg Tablet Twice A Day Active [facility] Rivaroxaban (Xarelto) 20 Mg Tablet Daily Active [facility] Trazodone Hcl 50 Mg Tablet Qhs Active [facility] Allergies, Adverse Reactions, Alerts Substance Category Reaction Severity Reaction type Status Date Reported Comments Source Morphine Propensity to adverse reactions to drug Active 07/03/2010 [facility] Ondansetron Hcl (Pf) Propensity to adverse reactions to drug Active 07/03/2010 [facility] Green Vegetables Unknown Allergy to Substance Active 04/20/2017 [facility] Margerine Unknown Allergy to Substance Active 04/20/2017 [facility] Paper Tape Unknown Allergy to Substance Active 04/20/2017 [facility] Ampicillin Unknown Allergy to Substance Active 04/10/2018 [facility] Metoclopramide Unknown Allergy to Substance Active 04/10/2018 [facility] Ondansetron Unknown Allergy to Substance Active 04/10/2018 [facility] Tramadol EARS RINGING Intermediate Allergy to Substance Active 04/10/2018 [facility] Gabapentin Mild Allergy to Substance Active 04/10/2018 [facility] Ketorolac RASH Intermediate Allergy to Substance Active 04/10/2018 [facility] Immunizations No Data Provided for This Section Results Order Name Results Value Reference Range Date Interpretation Comments Source Urine color determination YELLOW YELLOW 05/29/2018 [facility] Urine clarity CLEAR CLEAR 05/29/2018 [facility] Specific gravity of Urine by Test strip 1.010 1.010 - 1.025 05/29/2018 [facility] Urine pH measurement by automated test strip 7 5 - 7 05/29/2018 [facility] Urine leukocyte esterase detection by dipstick NEGATIVE NEGATIVE 05/29/2018 [facility] Urine nitrite detection NEGATIVE NEGATIVE 05/29/2018 [facility] Urine protein measurement by test strip (mass/volume) NEGATIVE NEGATIVE 05/29/2018 [facility] Urine glucose detection NEGATIVE NEGATIVE 05/29/2018 [facility] Urine ketones detection by automated test strip NEGATIVE NEGATIVE 05/29/2018 [facility] Urine opiates screening test NEGATIVE NEGATIVE 05/29/2018 [facility] Barbiturates screen, urine NEGATIVE NEGATIVE 05/29/2018 [facility] Urine phencyclidine detection by screening method NEGATIVE NEGATIVE 05/29/2018 [facility] Urine amphetamines detection by screen method > 1000 ng/mL NEGATIVE NEGATIVE 05/29/2018 [facility] Urine Methamphetamines Screen NEGATIVE NEGATIVE 05/29/2018 [facility] Urine benzodiazepines detection by screening method NEGATIVE NEGATIVE 05/29/2018 [facility] Urine cocaine measurement (mass/volume) NEGATIVE NEGATIVE 05/29/2018 [facility] Urine cannabinoids detection by screening method NEGATIVE NEGATIVE 05/29/2018 [facility] Urine methadone screen NEGATIVE NEGATIVE 05/29/2018 [facility] Urine urobilinogen measurement by test strip (mass/volume) 0.2 0.2 - 1 05/29/2018 [facility] Urine total bilirubin measurement (mass/volume) NEGATIVE NEGATIVE 05/29/2018 [facility] Urine erythrocytes detection NEGATIVE NEGATIVE 05/29/2018 [facility] Automated urine sediment leukocyte count by microscopy (number/high power field) 0-5 0 - 5 05/29/2018 [facility] Erythrocytes detection in urine sediment by light microscopy 0-5 0 - 5 05/29/2018 [facility] Bacteria detection in urine sediment by light microscopy NONE NONE 05/29/2018 [facility] Epithelial cells detection in urine sediment by light microscopy RARE NONE 05/29/2018 [facility] Blood leukocytes automated count (number/volume) 11.14 4.8 - 10.8 05/29/2018 [facility] Blood erythrocytes automated count (number/volume) 4.74 4.3 - 5.7 05/29/2018 [facility] Blood hemoglobin measurement (moles/volume) 14.4 14.0 - 18.0 05/29/2018 [facility] Automated blood hematocrit (volume fraction) 42.5 38.2 - 49.6 05/29/2018 [facility] Automated erythrocyte mean corpuscular volume 89.7 81 - 99 05/29/2018 [facility] Automated erythrocyte mean corpuscular hemoglobin (mass per erythrocyte) 30.4 28 - 32 05/29/2018 [facility] Automated erythrocyte mean corpuscular hemoglobin concentration measurement (mass/volume) 33.9 31 - 35 05/29/2018 [facility] RDW BldCo-Rto 13.5 11.7 - 14.4 05/29/2018 [facility] Automated blood platelet count (count/volume) 262 140 - 360 05/29/2018 [facility] Automated blood segmented neutrophil count as percentage of total leukocytes 58.3 38.7 - 80.0 05/29/2018 [facility] Automated blood lymphocyte count as percentage ot total leukocytes 30.2 18.0 - 39.1 05/29/2018 [facility] Automated blood monocyte count as percentage of total leukocytes 7.1 4.4 - 11.3 05/29/2018 [facility] Automated blood eosinophil count as percentage of total leukocytes 1.7 0.0 - 6.0 05/29/2018 [facility] Automated blood basophil count as percentage of total leukocytes 0.4 0.0 - 1.0 05/29/2018 [facility] IM GRANULOCYTES % 2.3 0.0 - 1.0 05/29/2018 [facility] Automated blood neutrophil count 6.5 2.1 - 6.9 05/29/2018 [facility] Blood lymphocytes count (number/volume) 3.4 1.0 - 3.2 05/29/2018 [facility] Blood monocytes automated count (number/volume) 0.8 0.2 - 0.8 05/29/2018 [facility] Automated blood eosinophil count 0.2 0.0 - 0.4 05/29/2018 [facility] Automated blood basophil count (count/volume) 0.1 0.0 - 0.1 05/29/2018 [facility] Absolute Immature Granulocyte (auto 0.26 0 - 0.1 05/29/2018 [facility] Prothrombin time (PT) in platelet poor plasma by coagulation assay 12.9 11.9 - 14.5 05/29/2018 [facility] INR in Platelet poor plasma by Coagulation assay 0.92 05/29/2018 [facility] Activated partial thromboplastin time (aPTT) in platelet poor plasma bycoagulation assay 27.8 23.8 - 35.5 05/29/2018 [facility] Serum or plasma sodium measurement (moles/volume) 138 136 - 145 05/29/2018 [facility] Serum or plasma potassium measurement (moles/volume) 3.4 3.5 - 5.1 05/29/2018 [facility] Serum or plasma chloride measurement (moles/volume) 97 98 - 107 05/29/2018 [facility] Serum or plasma carbon dioxide, total measurement (moles/volume) 28 22 - 29 05/29/2018 [facility] Serum or plasma anion gap 16.4 8 - 16 05/29/2018 [facility] Serum or plasma urea nitrogen measurement (mass/volume) 19 7 - 26 05/29/2018 [facility] Serum or plasma creatinine measurement (mass/volume) 1.26 0.72 - 1.25 05/29/2018 [facility] Serum or plasma urea nitrogen/creatinine mass ratio 15 6 - 25 05/29/2018 [facility] Estimated glomerular filtration rate (GFR) determination > 60 60 05/29/2018 [facility] Glucose measurement 146 74 - 118 05/29/2018 [facility] Serum or plasma calcium measurement (mass/volume) 9.6 8.4 - 10.2 05/29/2018 [facility] Serum or plasma total bilirubin measurement (mass/volume) 0.4 0.2 - 1.2 05/29/2018 [facility] Aspartate Amino Transf (AST/SGOT) 18 5 - 34 05/29/2018 [facility] Serum or plasma alanine aminotransferase measurement (enzymatic activity/volume) 31 0 - 55 05/29/2018 [facility] Serum or plasma protein measurement (mass/volume) 7.0 6.5 - 8.1 05/29/2018 [facility] Serum or plasma albumin measurement (mass/volume) 3.8 3.5 - 5.0 05/29/2018 [facility] Plasma globulin measurement (mass/volume) 3.2 2.3 - 3.5 05/29/2018 [facility] Serum or plasma albumin/globulin mass ratio 1.2 0.8 - 2.0 05/29/2018 [facility] Serum or plasma alkaline phosphatase measurement (enzymatic activity/volume) 104 40 - 150 05/29/2018 [facility] BNP Bld-mCnc 34.1 0 - 100 05/29/2018 [facility] Serum or plasma creatine kinase measurement (enzymatic activity/volume) 97 30 - 200 05/29/2018 [facility] Serum or plasma creatine kinase MB measurement (mass/volume) 1.50 0 - 5.0 05/29/2018 [facility] Troponin I measurement by highly sensitive enzyme immunoassay 0.002 0 - 0.300 05/29/2018 [facility] Serum or plasma lipase measurement (enzymatic activity/volume) 41 8 - 78 05/29/2018 [facility] Serum or plasma amylase measurement (enzymatic activity/volume) 26 25 - 125 04/10/2018 [facility] Blood leukocytes automated count (number/volume) 6.31 4.8 - 10.8 04/10/2018 [facility] Blood erythrocytes automated count (number/volume) 4.45 4.3 - 5.7 04/10/2018 [facility] Blood hemoglobin measurement (moles/volume) 13.6 14.0 - 18.0 04/10/2018 [facility] Automated blood hematocrit (volume fraction) 40.6 38.2 - 49.6 04/10/2018 [facility] Automated erythrocyte mean corpuscular volume 91.2 81 - 99 04/10/2018 [facility] Automated erythrocyte mean corpuscular hemoglobin (mass per erythrocyte) 30.6 28 - 32 04/10/2018 [facility] Automated erythrocyte mean corpuscular hemoglobin concentration measurement (mass/volume) 33.5 31 - 35 04/10/2018 [facility] RDW BldCo-Rto 13.7 11.7 - 14.4 04/10/2018 [facility] Automated blood platelet count (count/volume) 226 140 - 360 04/10/2018 [facility] Automated blood segmented neutrophil count as percentage of total leukocytes 57.9 38.7 - 80.0 04/10/2018 [facility] Automated blood lymphocyte count as percentage ot total leukocytes 29.6 18.0 - 39.1 04/10/2018 [facility] Automated blood monocyte count as percentage of total leukocytes 9.0 4.4 - 11.3 04/10/2018 [facility] Automated blood eosinophil count as percentage of total leukocytes 2.2 0.0 - 6.0 04/10/2018 [facility] Automated blood basophil count as percentage of total leukocytes 0.5 0.0 - 1.0 04/10/2018 [facility] IM GRANULOCYTES % 0.8 0.0 - 1.0 04/10/2018 [facility] Automated blood neutrophil count 3.7 2.1 - 6.9 04/10/2018 [facility] Blood lymphocytes count (number/volume) 1.9 1.0 - 3.2 04/10/2018 [facility] Blood monocytes automated count (number/volume) 0.6 0.2 - 0.8 04/10/2018 [facility] Automated blood eosinophil count 0.1 0.0 - 0.4 04/10/2018 [facility] Automated blood basophil count (count/volume) 0.0 0.0 - 0.1 04/10/2018 [facility] Absolute Immature Granulocyte (auto 0.05 0 - 0.1 04/10/2018 [facility] Prothrombin time (PT) in platelet poor plasma by coagulation assay 13.0 11.9 - 14.5 04/10/2018 [facility] INR in Platelet poor plasma by Coagulation assay 0.90 04/10/2018 [facility] Activated partial thromboplastin time (aPTT) in platelet poor plasma bycoagulation assay 30.7 23.8 - 35.5 04/10/2018 [facility] Urine color determination YELLOW YELLOW 04/10/2018 [facility] Urine clarity CLEAR CLEAR 04/10/2018 [facility] Specific gravity of Urine by Test strip 1.015 1.010 - 1.025 04/10/2018 [facility] Urine pH measurement by automated test strip 6 5 - 7 04/10/2018 [facility] Urine leukocyte esterase detection by dipstick NEGATIVE NEGATIVE 04/10/2018 [facility] Urine nitrite detection NEGATIVE NEGATIVE 04/10/2018 [facility] Urine protein measurement by test strip (mass/volume) NEGATIVE NEGATIVE 04/10/2018 [facility] Urine glucose detection 1+ NEGATIVE 04/10/2018 [facility] Urine ketones detection by automated test strip NEGATIVE NEGATIVE 04/10/2018 [facility] Urine urobilinogen measurement by test strip (mass/volume) 0.2 0.2 - 1 04/10/2018 [facility] Urine total bilirubin measurement (mass/volume) NEGATIVE NEGATIVE 04/10/2018 [facility] Urine erythrocytes detection NEGATIVE NEGATIVE 04/10/2018 [facility] Automated urine sediment leukocyte count by microscopy (number/high power field) 0-5 0 - 5 04/10/2018 [facility] Erythrocytes detection in urine sediment by light microscopy NONE 0 - 5 04/10/2018 [facility] Bacteria detection in urine sediment by light microscopy NONE NONE 04/10/2018 [facility] Epithelial cells detection in urine sediment by light microscopy NONE NONE 04/10/2018 [facility] Serum or plasma sodium measurement (moles/volume) 133 136 - 145 04/10/2018 [facility] Serum or plasma potassium measurement (moles/volume) 4.1 3.5 - 5.1 04/10/2018 [facility] Serum or plasma chloride measurement (moles/volume) 103 98 - 107 04/10/2018 [facility] Serum or plasma carbon dioxide, total measurement (moles/volume) 25 22 - 29 04/10/2018 [facility] Serum or plasma anion gap 9.1 8 - 16 04/10/2018 [facility] Serum or plasma urea nitrogen measurement (mass/volume) 10 7 - 26 04/10/2018 [facility] Serum or plasma creatinine measurement (mass/volume) 1.06 0.72 - 1.25 04/10/2018 [facility] Serum or plasma urea nitrogen/creatinine mass ratio 9 6 - 25 04/10/2018 [facility] Estimated glomerular filtration rate (GFR) determination > 60 60 04/10/2018 [facility] Glucose measurement 159 74 - 118 04/10/2018 [facility] Serum or plasma calcium measurement (mass/volume) 8.9 8.4 - 10.2 04/10/2018 [facility] Serum or plasma total bilirubin measurement (mass/volume) 0.4 0.2 - 1.2 04/10/2018 [facility] Aspartate Amino Transf (AST/SGOT) 25 5 - 34 04/10/2018 [facility] Serum or plasma alanine aminotransferase measurement (enzymatic activity/volume) 33 0 - 55 04/10/2018 [facility] Serum or plasma protein measurement (mass/volume) 6.1 6.5 - 8.1 04/10/2018 [facility] Serum or plasma albumin measurement (mass/volume) 3.6 3.5 - 5.0 04/10/2018 [facility] Plasma globulin measurement (mass/volume) 2.5 2.3 - 3.5 04/10/2018 [facility] Serum or plasma albumin/globulin mass ratio 1.4 0.8 - 2.0 04/10/2018 [facility] Serum or plasma alkaline phosphatase measurement (enzymatic activity/volume) 90 40 - 150 04/10/2018 [facility] BNP Bld-mCnc 55.4 0 - 100 04/10/2018 [facility] Serum or plasma creatine kinase measurement (enzymatic activity/volume) 138 30 - 200 04/10/2018 [facility] Serum or plasma creatine kinase MB measurement (mass/volume) 2.20 0 - 5.0 04/10/2018 [facility] Troponin I measurement by highly sensitive enzyme immunoassay < 0.001 0 - 0.300 04/10/2018 [facility] Serum or plasma amylase measurement (enzymatic activity/volume) 26 25 - 125 04/10/2018 [facility] Serum or plasma lipase measurement (enzymatic activity/volume) 30 8 - 78 04/10/2018 [facility] Capillary blood glucose measurement by glucometer (mass/volume) 145 70 - 120 02/13/2018 [facility] Capillary blood glucose measurement by glucometer (mass/volume) 145 70 - 120 02/13/2018 [facility] Urine opiates screening test NEGATIVE NEGATIVE 02/09/2018 [facility] Barbiturates screen, urine NEGATIVE NEGATIVE 02/09/2018 [facility] Urine phencyclidine detection by screening method NEGATIVE NEGATIVE 02/09/2018 [facility] Urine amphetamines detection by screen method > 1000 ng/mL NEGATIVE NEGATIVE 02/09/2018 [facility] Urine Methamphetamines Screen NEGATIVE NEGATIVE 02/09/2018 [facility] Urine benzodiazepines detection by screening method NEGATIVE NEGATIVE 02/09/2018 [facility] Urine cocaine measurement (mass/volume) NEGATIVE NEGATIVE 02/09/2018 [facility] Urine cannabinoids detection by screening method NEGATIVE NEGATIVE 02/09/2018 [facility] Urine methadone screen NEGATIVE NEGATIVE 02/09/2018 [facility] Venous Blood pH 7.435 7.35 - 7.38 02/09/2018 [facility] Venous Blood Partial Pressure CO2 36.1 44 - 48 02/09/2018 [facility] Venous Blood Partial Pressure O2 37 40 - 41 02/09/2018 [facility] Venous Blood HCO3 24.1 21 - 22 02/09/2018 [facility] Venous Blood Total Carbon Dioxide 25 02/09/2018 [facility] Venous Blood Base Excess 0 02/09/2018 [facility] Venous Blood Oxygen Saturation 73 02/09/2018 [facility] FiO2 21 02/09/2018 [facility] Venous Blood pH 7.435 7.35 - 7.38 02/09/2018 [facility] Venous Blood Partial Pressure CO2 36.1 44 - 48 02/09/2018 [facility] Venous Blood Partial Pressure O2 37 40 - 41 02/09/2018 [facility] Venous Blood HCO3 24.1 21 - 22 02/09/2018 [facility] Venous Blood Total Carbon Dioxide 25 02/09/2018 [facility] Venous Blood Base Excess 0 02/09/2018 [facility] Venous Blood Oxygen Saturation 73 02/09/2018 [facility] FiO2 21 02/09/2018 [facility] Serum or plasma magnesium measurement (mass/volume) 1.8 1.3 - 2.1 02/09/2018 [facility] Serum or plasma magnesium measurement (mass/volume) 1.8 1.3 - 2.1 02/09/2018 [facility] Lactic Acid Level 14.5 4.5 - 19.8 06/23/2017 [facility] Lactic Acid Level 14.5 4.5 - 19.8 06/23/2017 [facility] Automated blood basophil count (count/volume) Automated blood basophil count (count/volume) 0.0 0.0 - 0.1 06/23/2017 [facility] Automated blood basophil count as percentage of total leukocytes Automated blood basophil count as percentage of total leukocytes 0.4 0.0 - 1.0 06/23/2017 [facility] Automated blood eosinophil count Automated blood eosinophil count 0.1 0.0 - 0.4 06/23/2017 [facility] Automated blood eosinophil count as percentage of total leukocytes Automated blood eosinophil count as percentage of total leukocytes 1.9 0.0 - 6.0 06/23/2017 [facility] Automated blood hematocrit (volume fraction) Automated blood hematocrit (volume fraction) 40.9 38.2 - 49.6 06/23/2017 [facility] Automated blood lymphocyte count as percentage ot total leukocytes Automated blood lymphocyte count as percentage ot total leukocytes 28.8 18.0 - 39.1 06/23/2017 [facility] Automated blood monocyte count as percentage of total leukocytes Automated blood monocyte count as percentage of total leukocytes 6.9 4.4 - 11.3 06/23/2017 [facility] Automated blood neutrophil count Automated blood neutrophil count 4.3 2.1 - 6.9 06/23/2017 [facility] Automated blood platelet count (count/volume) Automated blood platelet count (count/volume) 235 140 - 360 06/23/2017 [facility] Automated blood segmented neutrophil count as percentage of total leukocytes Automated blood segmented neutrophil count as percentage of total leukocytes 61.3 38.7 - 80.0 06/23/2017 [facility] Automated erythrocyte mean corpuscular hemoglobin (mass per erythrocyte) Automated erythrocyte mean corpuscular hemoglobin (mass per erythrocyte) 31.0 28 - 32 06/23/2017 [facility] Automated erythrocyte mean corpuscular hemoglobin concentration measurement (mass/volume) Automated erythrocyte mean corpuscular hemoglobin concentration measurement (mass/volume) 34.5 31 - 35 06/23/2017 [facility] Automated erythrocyte mean corpuscular volume Automated erythrocyte mean corpuscular volume 89.9 81 - 99 06/23/2017 [facility] Blood erythrocytes automated count (number/volume) Blood erythrocytes automated count (number/volume) 4.55 4.3 - 5.7 06/23/2017 [facility] Blood hemoglobin measurement (moles/volume) Blood hemoglobin measurement (moles/volume) 14.1 14.0 - 18.0 06/23/2017 [facility] Blood leukocytes automated count (number/volume) Blood leukocytes automated count (number/volume) 6.97 4.8 - 10.8 06/23/2017 [facility] Blood lymphocytes count (number/volume) Blood lymphocytes count (number/volume) 2.0 1.0 - 3.2 06/23/2017 [facility] Blood monocytes automated count (number/volume) Blood monocytes automated count (number/volume) 0.5 0.2 - 0.8 06/23/2017 [facility] Estimated glomerular filtration rate (GFR) determination Estimated glomerular filtration rate (GFR) determination 58 60 06/23/2017 [facility] Glucose measurement Glucose measurement 107 74 - 118 06/23/2017 [facility] Plasma globulin measurement (mass/volume) Plasma globulin measurement (mass/volume) 4.0 2.3 - 3.5 06/23/2017 [facility] Serum or plasma alanine aminotransferase measurement (enzymatic activity/volume) Serum or plasma alanine aminotransferase measurement (enzymatic activity/volume) 23 0 - 55 06/23/2017 [facility] Serum or plasma albumin measurement (mass/volume) Serum or plasma albumin measurement (mass/volume) 3.9 3.5 - 5.0 06/23/2017 [facility] Serum or plasma albumin/globulin mass ratio Serum or plasma albumin/globulin mass ratio 1.0 0.8 - 2.0 06/23/2017 [facility] Serum or plasma alkaline phosphatase measurement (enzymatic activity/volume) Serum or plasma alkaline phosphatase measurement (enzymatic activity/volume) 89 40 - 150 06/23/2017 [facility] Serum or plasma amylase measurement (enzymatic activity/volume) Serum or plasma amylase measurement (enzymatic activity/volume) 31 25 - 125 06/23/2017 [facility] Serum or plasma anion gap Serum or plasma anion gap 17.8 8 - 16 06/23/2017 [facility] Serum or plasma calcium measurement (mass/volume) Serum or plasma calcium measurement (mass/volume) 9.5 8.4 - 10.2 06/23/2017 [facility] Serum or plasma carbon dioxide, total measurement (moles/volume) Serum or plasma carbon dioxide, total measurement (moles/volume) 25 22 - 29 06/23/2017 [facility] Serum or plasma chloride measurement (moles/volume) Serum or plasma chloride measurement (moles/volume) 100 98 - 107 06/23/2017 [facility] Serum or plasma creatinine measurement (mass/volume) Serum or plasma creatinine measurement (mass/volume) 1.32 0.72 - 1.25 06/23/2017 [facility] Serum or plasma lipase measurement (enzymatic activity/volume) Serum or plasma lipase measurement (enzymatic activity/volume) 34 8 - 78 06/23/2017 [facility] Serum or plasma magnesium measurement (mass/volume) Serum or plasma magnesium measurement (mass/volume) 2.1 1.3 - 2.1 06/23/2017 [facility] Serum or plasma potassium measurement (moles/volume) Serum or plasma potassium measurement (moles/volume) 3.8 3.5 - 5.1 06/23/2017 [facility] Serum or plasma protein measurement (mass/volume) Serum or plasma protein measurement (mass/volume) 7.9 6.5 - 8.1 06/23/2017 [facility] Serum or plasma sodium measurement (moles/volume) Serum or plasma sodium measurement (moles/volume) 139 136 - 145 06/23/2017 [facility] Serum or plasma total bilirubin measurement (mass/volume) Serum or plasma total bilirubin measurement (mass/volume) 0.4 0.2 - 1.2 06/23/2017 [facility] Serum or plasma urea nitrogen measurement (mass/volume) Serum or plasma urea nitrogen measurement (mass/volume) 17 7 - 26 06/23/2017 [facility] Serum or plasma urea nitrogen/creatinine mass ratio Serum or plasma urea nitrogen/creatinine mass ratio 13 6 - 25 06/23/2017 [facility] Red Cell Distribution Width 13.5 11.7 - 14.4 06/23/2017 [facility] IM GRANULOCYTES % 0.7 0.0 - 1.0 06/23/2017 [facility] Absolute Immature Granulocyte (auto 0.05 0 - 0.1 06/23/2017 [facility] Aspartate Amino Transf (AST/SGOT) 31 5 - 34 06/23/2017 [facility] Serum or plasma creatine kinase MB measurement (mass/volume) Serum or plasma creatine kinase MB measurement (mass/volume) 1.10 0 - 5.0 2017 [facility] Serum or plasma creatine kinase measurement (enzymatic activity/volume) Serum or plasma creatine kinase measurement (enzymatic activity/volume) 69 30 - 200 2017 [facility] Troponin I measurement by highly sensitive enzyme immunoassay Troponin I measurement by highly sensitive enzyme immunoassay <0.001 0 - 0.300 2017 [facility] Serum or plasma cholesterol in HDL measurement (mass/volume) Serum or plasma cholesterol in HDL measurement (mass/volume) 25 40 - 60 2017 [facility] Serum or plasma cholesterol in LDL measurement (mass/volume) Serum or plasma cholesterol in LDL measurement (mass/volume) 52 60 - 130 2017 [facility] Serum or plasma cholesterol measurement (mass/volume) Serum or plasma cholesterol measurement (mass/volume) 132 0 - 199 2017 [facility] Serum or plasma total cholesterol/cholesterol in HDL mass ratio Serum or plasma total cholesterol/cholesterol in HDL mass ratio 5.3 3.9 - 4.7 2017 [facility] Serum or plasma triglyceride measurement (mass/volume) Serum or plasma triglyceride measurement (mass/volume) 276 0 - 149 2017 [facility] Activated partial thromboplastin time (aPTT) in platelet poor plasma bycoagulation assay Activated partial thromboplastin time (aPTT) in platelet poor plasma bycoagulation assay 32.7 23.8 - 35.5 05/26/2017 [facility] INR in Platelet poor plasma by Coagulation assay INR in Platelet poor plasma by Coagulation assay 1.14 05/26/2017 [facility] Prothrombin time (PT) in platelet poor plasma by coagulation assay Prothrombin time (PT) in platelet poor plasma by coagulation assay 13.7 11.9 - 14.5 05/26/2017 [facility] Automated urine sediment leukocyte count by microscopy (number/high power field) Automated urine sediment leukocyte count by microscopy (number/high power field) <10 0 - 5 04/20/2017 [facility] Bacteria detection in urine sediment by light microscopy Bacteria detection in urine sediment by light microscopy NONE NONE 04/20/2017 [facility] Calcium oxalate crystals detection in urine sediment by light microscopy Calcium oxalate crystals detection in urine sediment by light microscopy RARE FEW 04/20/2017 [facility] Epithelial cells detection in urine sediment by light microscopy Epithelial cells detection in urine sediment by light microscopy NONE NONE 04/20/2017 [facility] Erythrocytes detection in urine sediment by light microscopy Erythrocytes detection in urine sediment by light microscopy <5 0 - 5 04/20/2017 [facility] Specific gravity of Urine by Test strip Specific gravity of Urine by Test strip 1.020 1.010 - 1.025 04/20/2017 [facility] Urine clarity Urine clarity CLEAR CLEAR 04/20/2017 [facility] Urine color determination Urine color determination YELLOW YELLOW 04/20/2017 [facility] Urine erythrocytes detection Urine erythrocytes detection NEGATIVE NEGATIVE 04/20/2017 [facility] Urine glucose detection Urine glucose detection NEGATIVE NEGATIVE 04/20/2017 [facility] Urine ketones detection by automated test strip Urine ketones detection by automated test strip TRACE NEGATIVE 04/20/2017 [facility] Urine leukocyte esterase detection by dipstick Urine leukocyte esterase detection by dipstick 1+ NEGATIVE 04/20/2017 [facility] Urine nitrite detection Urine nitrite detection NEGATIVE NEGATIVE 04/20/2017 [facility] Urine pH measurement by automated test strip Urine pH measurement by automated test strip 5 5 - 7 04/20/2017 [facility] Urine protein measurement by test strip (mass/volume) Urine protein measurement by test strip (mass/volume) NEGATIVE NEGATIVE 04/20/2017 [facility] Urine total bilirubin measurement (mass/volume) Urine total bilirubin measurement (mass/volume) 1+ NEGATIVE 04/20/2017 [facility] Urine urobilinogen measurement by test strip (mass/volume) Urine urobilinogen measurement by test strip (mass/volume) 0.2 0.2 - 1 04/20/2017 [facility] Phosphorus measurement Phosphorus measurement 3.8 2.3 - 4.7 04/20/2017 [facility] Serum or plasma uric acid measurement (mass/volume) Serum or plasma uric acid measurement (mass/volume) 9.7 4.8 - 8.0 04/20/2017 [facility] Fibrin D-dimer DDU measurement in platelet poor plasma (mass/volume) Fibrin D-dimer DDU measurement in platelet poor plasma (mass/volume) 0.56 0.00 - 0.45 04/19/2017 [facility] B-Type Natriuretic Peptide <12.0 0 - 100 04/19/2017 [facility] Pathology Reports No Data Provided for This Section Diagnostic Reports No Data Provided for This Section Consultation Notes No Data Provided for This Section Discharge Summaries No Data Provided for This Section History and Physicals No Data Provided for This Section Vital Signs Vital Sign Value Date Comments Source Systolic (mm Hg) 117 04/24/2018 [facility] Diastolic (mm Hg) 74 04/24/2018 [facility] Heart Rate 81 04/24/2018 [facility] Encounters Location Location Details Encounter Type Encounter Number Reason For Visit Attending Provider ADM Date DC Date Status Source Outpatient [id number] TANA BENNETT 01/08/2016 [facility] Discharged Inpatient (obs) [id number] ALVARO SCHUMACHER MD 04/20/2017 04/21/2017 [facility] Discharged Inpatient (obs) [id number] DIANE RENTERIA MD 05/26/2017 2017 [facility] Departed Emergency Room [id number] DEBRA CLOUD MD 06/23/2017 06/23/2017 [facility] Departed Emergency Room [id number] ORACIO STARR MD 01/02/2018 01/02/2018 [facility] Discharged Inpatient [id number] DEXTER DILL MD 02/09/2018 02/13/2018 [facility] Departed Emergency Room [id number] ORACIO STARR MD 04/10/2018 04/10/2018 [facility] Travel [id number] 04/24/2018 [facility] Therapy [id number] Katina Tracy PT 04/24/2018 04/24/2018 [facility] Departed Emergency Room [id number] REED CURTIS MD 05/29/2018 05/29/2018 [facility] Procedures Procedure Code Date Perfomer Comments Source Computed tomography of brain without radiopaque contrast [id number] 02/10/2018 [facility] Computed tomography of chest with contrast [id number] 02/09/2018 [place] [facility] Computed tomography of abdomen and pelvis with contrast [id number] 06/23/2017 JAD [facility] Assessment and Plan No Data Provided for This Section Plan of Care Plan of Care Date Source IMM Influenza Seasonal Nov to April (>/=19 yrs) 11/18/2018 [facility] Discharge Date 05/29/18 2:41am Disposition HOME, SELF-CARE Condition at Discharge Stable Instructions/Education Provided Chest Pain - Noncardiac Prescriptions See Medication Section 05/29/2018 [facility] Discharge Date 04/10/18 6:25pm Disposition HOME, SELF-CARE Condition at Discharge Stable Instructions/Education Provided Chest Pain - Chest Wall Forms Provided Work/School Excuse Prescriptions See Medication Section Referrals MARYBEL WOODARD MD Address: [address] [place] [id number] Additional Instructions/Education 1. Please f/u with dehydrogenation operator as an outpt you are not having an acute cardiac event at this time 04/10/2018 [facility] IMM Influenza Seasonal Nov to April (>/=19 yrs) 11/18/2017 [facility] Discharge Date 06/23/17 11:07pm Disposition HOME, SELF-CARE Condition at Discharge Stable Instructions/Education Provided Abdominal Pain - Adult Vomiting - Adult Forms Provided Work/School Excuse Prescriptions See Medication Section Referrals JULIO PETTY MD Order Date: Call for an appointment Address: [address] [place] [id number] Additional Instructions/Education Call for follow up appointment [...] oral secretions or any new concerns. 06/23/2017 [facility] Social History Social History Date Source Social [...] Start Date Stop Date Never Smoker 05/29/2018 [facility] Tobacco UseTypesPacks/DayYears UsedDate Never Assessed Sex Assigned at BirthDate Recorded Not on file Job Start DateOccupationIndustry Not on file Not on file Not on file Travel HistoryTravel StartTravel End No recent travel history available. 07/03/2010 [facility] Family History No Data Provided for This Section Advance Directives Order Name Results Value Date Source Advance Directives Advance Directives Latest Code Status on FileCode StatusDate ActivatedDate InactivatedComments Full Code 07/03/2010 10:11 AM 07/04/2010 9:05 PM 09/03/2018 [facility] Advance Directives Advance Directives Latest Code Status on FileCode StatusDate ActivatedDate InactivatedComments Full Code 07/03/2010 10:11 AM 07/04/2010 9:05 PM 07/10/2018 [facility] Advance Directives Advance Directives For more information, please contact:[address] [id number] Code Status on FileCode StatusDate ActivatedDate InactivatedComments Full Code 07/03/2010 10:11 AM 07/04/2010 9:05 PM 07/06/2018 [facility] Advance Directives Advance Directives For more information, please contact:[address] [id number] Code Status on FileCode StatusDate ActivatedDate InactivatedComments Full Code 07/03/2010 10:11 AM 07/04/2010 9:05 PM 06/01/2018 [facility] Advance Directives Advance Directives Directive Response Recorded Date/Time Does the patient have an advance directive? No 02/09/18 7:58am Do you have a Directive to Physician? No 05/29/18 12:19am Do you have a Medical Power of Soft Mud M[employer]? No 05/29/18 12:19am Do you have an [...] rights and responsibilities? Yes 05/29/18 12:19am 05/29/2018 [facility] Advance Directives Advance Directives For more information, please contact:[address] [id number] Code Status on FileCode StatusDate ActivatedDate InactivatedComments Full Code 07/03/2010 10:11 AM 07/04/2010 9:05 PM 05/28/2018 [facility] Advance Directives Advance Directives For more information, please contact:[address] [id number] Code Status on FileCode StatusDate ActivatedDate InactivatedComments Full Code 07/03/2010 10:11 AM 07/04/2010 9:05 PM 05/07/2018 [facility] Advance Directives Advance Directives For more information, please contact:[address] [id number] Code Status on FileCode StatusDate ActivatedDate InactivatedComments Full Code 07/03/2010 10:11 AM 07/04/2010 9:05 PM 04/24/2018 [facility] Advance Directives Advance Directives Directive Response Recorded Date/Time Does the patient have an advance directive? No 02/09/18 7:58am Do you have a Directive to Physician? No 04/10/18 2:32pm Do you have a Medical Power of Soft Mud Molder? No 04/10/18 2:32pm Do you have an [...] rights and responsibilities? Yes 04/10/18 2:33pm 04/10/2018 [facility] Advance Directives Advance Directives Directive Response Recorded Date/Time Does the patient have an advance directive? No 05/27/17 1:44am If yes, is advance directive on file with [facility]? No 05/27/17 1:44am If not on file with [facility] will patient provide a copy? Yes 05/27/17 1:44am Do you have a Directive to Physician? No 06/23/17 9:24pm Do you have a Medical Power of Soft Mud Molder? No 06/23/17 9:24pm Do you have an [...] rights and responsibilities? Yes 06/23/17 9:24pm 06/23/2017 [facility] Functional Status No Data Provided for This Section
[2018-10-29] MEDS ORDERED: ALBUTEROL SULF 0.083% NEB SOLN 3 ML NEB NEB ONE (21:35)
[2018-10-29] MEDS ORDERED: IPRATROPIUM BROMIDE 0.02% 2.5 ML NEB NEB ONE (21:45)
[2018-10-29 22:18] LABS: BASOPHILS % 0.5 % (0.0-1.0); EOSINOPHILS # (AUTO) 0.1 (0.0-0.4); EOSINOPHILS % 1.8 % (0.0-6.0); HEMATOCRIT 39.9 % (38.2-49.6); HEMOGLOBIN 14.1 g/dL (14.0-18.0); LYMPHOCYTES # (AUTO) 2.5 (1.0-3.2); LYMPHOCYTES % 32.1 % (18.0-39.1); MEAN CORPUSCULAR HEMOGLOBIN 31.1 pg (28-32); MEAN CORPUSCULAR HGB CONC 35.3 g/dL (31-35); MEAN CORPUSCULAR VOLUME 88.1 fL (81-99); MONOCYTES # (AUTO) 0.7 (0.2-0.8); MONOCYTES % 9.3 % (4.4-11.3); NEUTROPHILS # (AUTO) 4.2 (2.1-6.9); NEUTROPHILS % 55.1 % (38.7-80.0); PLATELET COUNT 230 x10e3/uL (140-360); RED BLOOD COUNT 4.53 x10e6/uL (4.3-5.7); RED CELL DISTRIBUTION WIDTH 14.6 % (11.7-14.4)
[2018-10-29 22:40] LABS: ALANINE AMINOTRANSFERASE 27 IU/L (0-55); ALBUMIN 3.8 g/dL (3.5-5.0); ALBUMIN/GLOBULIN RATIO 1.2 (0.8-2.0); ALKALINE PHOSPHATASE 113 IU/L (40-150); ANION GAP 17.4 mmol/L (8-16); BLOOD UREA NITROGEN 21 mg/dL (7-26); BUN/CREATININE RATIO 14 (6-25); CALCIUM 9.1 mg/dL (8.4-10.2); CARBON DIOXIDE 24 mmol/L (22-29); CHLORIDE 96 mmol/L (98-107); CREATINE KINASE 164 IU/L (30-200); CREATININE, SERUM 1.54 mg/dL (0.72-1.25); EST GLOMERULAR FILTRATION RATE 48 ML/MIN (60-); GLUCOSE 185 mg/dL (74-118); POTASSIUM 3.4 mmol/L (3.5-5.1); SODIUM 134 mmol/L (136-145)
--- NOTE | 2018-10-29 22:48 | Diagnostic Imaging Report ---
EXAMINATION: CHEST SINGLE (PORTABLE) INDICATION: Short of breath COMPARISON: Chest CT 10/23/2018, chest radiograph 10/24/2018 FINDINGS: AP view TUBES and LINES: None. LUNGS: Lungs are well inflated. Central pulmonary vascular prominence. No consolidations. PLEURA: No pleural effusion or pneumothorax. HEART AND MEDIASTINUM: The cardiomediastinal silhouette is unremarkable. BONES AND SOFT TISSUES: No acute osseous lesion. Soft tissues are unremarkable. Unchanged sternal fixation hardware. Partially visualized cervical fixation hardware UPPER ABDOMEN: No free air under the diaphragm. IMPRESSION: Central pulmonary vascular congestion. Signed by: Christian Silva DO on 10/29/2018 10:45 PM
== END 2018-10-29 23:38 | disposition home or self-care (01) ==
LOC: ER 21:18
DX: J20.9 Acute bronchitis, unspecified (principal); J44.0 Chronic obstructive pulmonary disease with (acute) lower respiratory infection; Z88.1 Allergy status to other antibiotic agents; Z88.5 Allergy status to narcotic agent; Z88.8 Allergy status to other drugs, medicaments and biological substances; I11.0 Hypertensive heart disease with heart failure; I50.9 Heart failure, unspecified; Z86.73 Personal history of transient ischemic attack (TIA), and cerebral infarction without residual deficits; F17.210 Nicotine dependence, cigarettes, uncomplicated; Z83.3 Family history of diabetes mellitus; Z82.49 Family history of ischemic heart disease and other diseases of the circulatory system
CPT/HCPCS: 36415; 71045; 80053; 82550; 82553; 83880; 84484; 85025; 93005; 99283

== ENCOUNTER 2018-10-31 18:20 | Emergency (ER) | payer OTHER ==
[~2018-10-31] VITALS: Ht 188 cm; Wt 186.4 kg
--- OUTSIDE RECORDS SUMMARY | 2018-10-31 18:22 | XMS REPORT | Clinical Summary ---
Author Author [facility] Organization [facility] Address Unknown Phone Unavailable Care Team Providers Care Insurance Verify Rep Name Role Phone PCP Unavailable Allergies Comments [...] for falls 04/24/2018 Therapy Physical Therapy after 10/30/2017 Social History Date Tobacco Use Types Packs/Day Years Used Never Assessed Sex Assigned at Date Recorded Not on file Industry Job Start Date Occupation Not on file Not on file Not on file Travel End Travel History Travel Start No recent travel history available. Last Filed Vital Signs Reading Time Taken Comments Vital Sign 117/74 04/24/2018 2:06 PM [facility] Blood Pressure 81 04/24/2018 2:06 PM [facility] Pulse - - Temperature - - Respiratory Rate 96% 04/24/2018 2:06 PM [facility] Oxygen Saturation - - Inhaled Oxygen Concentration - - Weight - - Height - - Body Mass Index Plan of Treatment Health Maintenance Due Date Last Done Comments IMM Influenza Seasonal 11/18/2018Nov to April (>/=19 yrs) Results Not on fileafter 10/30/2017 Insurance Type Payer Benefit Subscriber ID Effective Phone Address Plan / Dates Group [facility] xxxxxxxxx 2017- [phone] COMMUNITY Present [id number] [place] [address] Advance Directives Date Inactivated Comments Code Status Date Activated 07/04/2010 9:05 PM Full Code 07/03/2010 10:11 AM
--- OUTSIDE RECORDS SUMMARY | 2018-10-31 18:23 | XMS REPORT | Clinical Summary ---
Author Author Eliel Yazidi Organization [facility] Address Unknown Phone Unavailable Care Team Providers Care Medical Assistant Internal Medicine Name Role Phone Asked, No Pcp PCP [...] 09/25/2018 Alexandre Blackmon DO Keller, Jason James, ON SITE NURSE-C Contusion of left great toe without damage to nail, initial encounter (Primary Dx); Chronic chest pain; Personality disorder (HCC) 05/17/2018 Emergency Emergency Medicine Jayden Broderick MD Alberto, Paul, MD Chest pain, unspecified type (Primary Dx) 05/01/2018 Hospital General Surgery - Encounter 05/04/2018 Patel Hammonds MD Cv right heart cath [[id number] (CPT)] 03/10/2018 Surgery Procedural Cardiology Behzad Samano MD Yerramadha, Muralidhar Reddy, MD Acute on chronic diastolic congestive heart failure (HCC) (Primary Dx); Chest pain, unspecified type; PALLAVI (obstructive sleep apnea); Morbid obesity due to excess calories (HCC); Precordial pain; Bilateral swelling of feet 03/03/2018 Hospital General Surgery - Encounter 03/10/2018 Farzad Santos MD CV LEFT HEART CATH LV GRAM WITH CORS [[id number] (CPT)] 12/24/2017 Surgery Procedural Cardiology Zaid Russell MD Bavare, Arusha Amod, MD Yerramadha, Muralidhar Reddy, MD Chest pain, unspecified type (Primary Dx); Cutaneous abscess of abdominal wall; Precordial pain; Bilateral swelling of feet 12/22/2017 Emergency General Internal Medicine - 12/24/2017 after 10/30/2017 Family History Medical History Relation Name Comments [...] Lot Implanted Type Area Manufactur er 08/17/2018 [id number] / / [id number] Device Vasclr Clsr Vasoactive Cardiovasc Right: Groin Intstnl Peptd 6fr Angio-Seal - ular [id number] Implants Implanted: Qty: 1 on 12/24/2017 by Farzad Santos MD at [facility] . Description:plate in the neck Procedures Comments [...] RIGHT HEART CATH Routine 03/10/2018 3:08 PM NURSING STUDENT POC CG8, ARTERIAL Routine 03/10/2018 2:55 PM NURSING STUDENT POC CG8, ARTERIAL Routine 03/10/2018 2:44 PM NURSING STUDENT ESTIMATED GFR Routine 03/10/2018 7:10 AM NURSING STUDENT HC COMPLETE BLD COUNT Routine 03/10/2018 W/AUTO DIFF 7:10 AM NURSING STUDENT BASIC METABOLIC PANEL Routine 03/10/2018 7:10 AM NURSING STUDENT TYPE AND SCREEN Routine 03/10/2018 12:10 AM NURSING STUDENT ARTERIAL BLOOD GAS Routine 03/08/2018 5:01 PM NURSING STUDENT ESTIMATED GFR Routine 03/07/2018 5:50 AM NURSING STUDENT MAGNESIUM LEVEL Routine 03/07/2018 5:50 AM NURSING STUDENT BASIC METABOLIC PANEL Routine 03/07/2018 5:50 AM NURSING STUDENT XR CHEST 1 VW PORTABLE Routine 03/06/2018 6:45 AM NURSING STUDENT ESTIMATED GFR Routine 03/06/2018 5:05 AM NURSING STUDENT MAGNESIUM LEVEL Routine 03/06/2018 5:05 AM NURSING STUDENT BASIC METABOLIC PANEL Routine 03/06/2018 5:05 AM NURSING STUDENT ESTIMATED GFR Routine 03/05/2018 4:16 AM NURSING STUDENT MAGNESIUM LEVEL Routine 03/05/2018 4:16 AM NURSING STUDENT BASIC METABOLIC PANEL Routine 03/05/2018 4:16 AM NURSING STUDENT ESTIMATED GFR Routine 03/04/2018 6:08 PM NURSING STUDENT MAGNESIUM LEVEL Routine 03/04/2018 6:08 PM NURSING STUDENT BASIC METABOLIC PANEL Routine 03/04/2018 6:08 PM NURSING STUDENT GRAM STAIN STAT 03/04/2018 8:34 AM NURSING STUDENT URINE CULTURE STAT 03/04/2018 8:34 AM NURSING STUDENT URINALYSIS SCREEN AND STAT 03/04/2018 MICROSCOPY, WITH REFLEX 7:40 AM NURSING STUDENT TO CULTURE ESTIMATED GFR Timed 03/04/2018 3:10 AM NURSING STUDENT BASIC METABOLIC PANEL Timed 03/04/2018 3:10 AM NURSING STUDENT HC COMPLETE BLD COUNT Timed 03/04/2018 W/AUTO DIFF 3:10 AM NURSING STUDENT TROPONIN Timed 03/04/2018 3:10 AM NURSING STUDENT ECG 12-LEAD Routine 03/04/2018 1:27 AM NURSING STUDENT TROPONIN Timed 03/04/2018 12:31 AM NURSING STUDENT XR CHEST 1 VW PORTABLE STAT 03/03/2018 9:26 PM NURSING STUDENT ECG 12-LEAD STAT 03/03/2018 9:08 PM NURSING STUDENT D-DIMER STAT 03/03/2018 9:08 PM NURSING STUDENT ESTIMATED GFR STAT 03/03/2018 9:08 PM NURSING STUDENT B NATRIURETIC PEPTIDE STAT 03/03/2018 9:08 PM NURSING STUDENT TROPONIN STAT 03/03/2018 9:08 PM NURSING STUDENT COMPREHENSIVE METABOLIC STAT 03/03/2018 PANEL 9:08 PM NURSING STUDENT PARTIAL THROMBOPLASTIN STAT 03/03/2018 TIME (PTT) 9:08 PM NURSING STUDENT PROTHROMBIN TIME WITH INR STAT 03/03/2018 9:08 PM NURSING STUDENT HC COMPLETE BLD COUNT STAT 03/03/2018 W/AUTO DIFF 9:08 PM NURSING STUDENT ECG ED PRELIMINARY Routine 03/03/2018 INTERPRETATION 9:06 PM NURSING STUDENT CV LEFT HEART CATH LV Routine 12/24/2017 GRAM WITH CORS 10:16 AM NURSING STUDENT ECG 12-LEAD Routine 12/24/2017 7:03 AM NURSING STUDENT ESTIMATED GFR Routine 12/24/2017 5:00 AM NURSING STUDENT HC COMPLETE BLD COUNT Routine 12/24/2017 W/AUTO DIFF 5:00 AM NURSING STUDENT BASIC METABOLIC PANEL Routine 12/24/2017 5:00 AM NURSING STUDENT TYPE AND SCREEN Routine 12/24/2017 5:00 AM NURSING STUDENT PARTIAL THROMBOPLASTIN Routine 12/24/2017 TIME (PTT) 5:00 AM NURSING STUDENT PROTHROMBIN TIME WITH INR Routine 12/24/2017 5:00 AM NURSING STUDENT TROPONIN Timed 12/23/2017 6:57 PM NURSING STUDENT NM MYOCARDIAL PERFUSION Routine 12/23/2017 STRESS ONLY 2:52 PM NURSING STUDENT CV STRESS TEST NUCLEAR Routine 12/23/2017 CARDIO 2:52 PM NURSING STUDENT TROPONIN Timed 12/23/2017 1:57 PM NURSING STUDENT ECHOCARDIOGRAM 2D Routine 12/22/2017 COMPLETE W MMODE SPECTRAL 6:32 PM NURSING STUDENT COLOR DOPPLER ([id number]) TROPONIN Timed 12/22/2017 10:58 AM NURSING STUDENT TROPONIN Timed 12/22/2017 6:[address] ANGIOGRAM PE CHEST STAT 12/22/2017 5:48 AM NURSING STUDENT ECG 12-LEAD STAT 12/22/2017 4:28 AM NURSING STUDENT XR CHEST 1 VW PORTABLE STAT 12/22/2017 3:52 AM NURSING STUDENT ESTIMATED GFR STAT 12/22/2017 3:36 AM NURSING STUDENT B NATRIURETIC PEPTIDE STAT 12/22/2017 3:36 AM NURSING STUDENT TROPONIN STAT 12/22/2017 3:36 AM NURSING STUDENT LIPASE LEVEL STAT 12/22/2017 3:36 AM NURSING STUDENT HEPATIC FUNCTION PANEL STAT 12/22/2017 3:36 AM NURSING STUDENT BASIC METABOLIC PANEL STAT 12/22/2017 3:36 AM NURSING STUDENT HC COMPLETE BLD COUNT STAT 12/22/2017 W/AUTO DIFF 3:36 AM NURSING STUDENT ECG ED PRELIMINARY Routine 12/22/2017 INTERPRETATION 3:28 AM NURSING STUDENT after 10/30/2017 Results * Estimated GFR (09/24/2018 8:52 PM CDT) Only the most recent of 15 results within the time period is included. Estimated GFR 71 mL/min/1.73 m2 [place] Comment: CATHOLIC CLEAR [facility] rpretation G1 >=90 Normal or high G2 60-89Mildly decreased [id number] Mildly to moderately decreased Y2z85-15 Moderately to severely decreased G4 15-29Severely decreased G5 <15Kidney failure The eGFR was calculated using the Chronic Kidney Disease Epidemiology Collaboration (CKD-EPI) equation. Interpretation is based on recommendations of the National Kidney Foundation-Kidney Disease Outcomes Quality Initiative (NKF-KDOQI) published in 2014. Specimen Plasma specimen Performing Organization Address City/State/Zipcode [place] [address] [place] [address] PATHOLOGY [facility] [place] [address] [address] * Troponin (09/24/2018 8:52 PM CDT) Only the most recent of 13 results within the time period is included. Pathologist [facility] Troponin <0.006 0.000 - 0.040 ng/mL [place] Comment: ANTONIO GLOVER [facility] changed methodology effective: 06/24/2018 at 10:00 am The new method has a 99th percentile cutoff of 0.040 ng/mL Specimen Plasma specimen Performing Organization Address [facility] Phone Number [place] [place] [address] [place] [address] [address] * Partial thromboplastin time, activated (09/24/2018 8:52 PM CDT) Only the most recent of 4 results within the time period is included. Pathologist [facility] PTT 28.8 23.0 - 36.0 sec [place] Comment: ANTONIO GLOVER PTT therapeutic range for [facility] unfractionated heparin is 61.0-112.0 seconds which corresponds to Anti-Xa 0.3-0.7 U/ml. Specimen Blood Performing Organization Address [facility] Phone Number [place] [place] [address] [place] [address] [address] * Prothrombin time with INR (09/24/2018 8:52 PM CDT) Only the most recent of 4 results within the time period is included. Pathologist [facility] Prothrombin 12.5 11.5 - 14.5 sec [facility] INR 1.0 [place] Comment: ANTONIO GLOVER The International Normalized [facility] Ratio (INR) is a therapeutic monitoring tool for patients who are stable on oral anticoagulant therapy. An INR of 2.0-3.0 is suggested for deep vein thrombosis/pulmonary embolism. Specimen Blood Performing Organization Address [facility] Phone Number [facility] [place] [address] [place] [address] PATHOLOGY [facility] MEDICINE [place] [address] * CBC with platelet and differential (09/24/2018 8:52 PM CDT) Only the most recent of 10 results within the time period is included. WBC 7.66 4.50 - 11.00 k/uL [facility] RBC 4.07 (L) 4.40 - 6.00 m/uL [facility] HGB 12.4 (L) 14.0 - 18.0 g/dL [facility] HCT 37.7 (L) 41.0 - 51.0 % [facility] MCV 92.6 82.0 - 100.0 fL [facility] MCH 30.5 27.0 - 34.0 pg [facility] MCHC 32.9 31.0 - 37.0 g/dL [facility] RDW - SD 46.9 37.0 - 55.0 fL [facility] MPV 9.8 8.8 - 13.2 fL [facility] Platelet count 203 150 - 400 k/uL [facility] Nucleated RBC 0.30 /100 WBC [facility] Neutrophils 61.5 39.0 - 69.0 % [facility] Lymphocytes 26.8 25.0 - 45.0 % [facility] Monocytes 6.7 0.0 - 10.0 % [facility] Eosinophils 2.7 0.0 - 5.0 % [facility] Basophils 0.5 0.0 - 1.0 % [facility] Specimen Blood Performing Organization Address City/State/Zipcode Phone Number [facility] DE[place] [address] [place] [phone] PATHOLOGY AND GENOMIC MEDICINE [place] [address] [address] * B natriuretic peptide (09/24/2018 8:52 PM CDT) Only the most recent of 5 results within the time period is included. BNP 25 0 - 100 pg/mL [facility] Specimen Blood Performing Organization Address City/[facility]/Zipcode Phone Number [facility] [place] [address] [address] [place] [phone] PATHOLOGY AND GENOMIC MEDICINE [facility] [address] [address] * Comprehensive metabolic panel (09/24/2018 8:52 PM CDT) Only the most recent of 3 results within the time period is included. Sodium 138 135 - 148 mEq/L [facility] Potassium 4.0 3.5 - 5.0 mEq/L [facility] Chloride 98 98 - 112 mEq/L [facility] CO2 29 24 - 31 mEq/L [facility] Anion gap 11@ANIO 7 - 15 mEq/L [facility] BUN 18 6 - 20 mg/dL [facility] Creatinine 1.20 0.70 - 1.20 mg/dL [facility] Glucose 268 (H) 65 - 99 mg/dL [facility] Calcium 9.2 8.3 - 10.2 mg/dL [facility] Protein 6.3 6.3 - 8.3 g/dL [place] Comment: [facility] 4.6-7.0 g/dL 1 week 4.4-7.6 g/dL 7 months-1year 5.1-7.3 g/dL 1-2 years5.6-7 .5 g/dL >3 years6.0-8 .0 g/dL 18-150 6.3-8.3 g/dL Albumin 3.6 3.5 - 5.0 g/dL [facility] A/G ratio 1.3 0.7 - 3.8 [facility] Alkaline 121 40 - 129 U/L [place] phosphatase [facility] AST 24 10 - 50 U/L [facility] ALT 21 5 - 50 U/L [facility] Total bilirubin 0.3 0.0 - 1.2 mg/dL [facility] Specimen Plasma specimen Performing Organization Address City/State/Zipcode [place] Number [place] [address] [place] [phone] PATHOLOGY AND GENOMIC MEDICINE [facility] [address] [address] * XR Chest 1 Vw (09/24/2018 8:10 PM CDT) Specimen Narrative Performed At EXAMINATION:XR CHEST 1 VW [facility] CLINICAL HISTORY:Chest painacutenonspecificlow prob CAD COMPARISON: May 17, 2018 . IMPRESSION: 1.Heart size is normal. Median sternotomy wires overlie the midline. 2.Interval left basilar atelectasis. 3.No pneumothorax. 4.Osseous structures are intact. [id number] Procedure Note Hm Interface, Radiology Results Incoming - 09/24/2018 8:24 PM CDT EXAMINATION: XR CHEST 1 VW CLINICAL HISTORY: Chest pain acute nonspecific low prob CAD COMPARISON: May 17, 2018 . IMPRESSION: 1. Heart size is normal. Median sternotomy wires overlie the midline. 2. Interval left basilar atelectasis. 3. No pneumothorax. 4. Osseous structures are intact. [id number] Performing Organization Address City/[facility]/Zipcode Phone Number [facility] [address] [place] [address] * POC glucose (09/24/2018 7:35 PM CDT) Only the most recent of 10 results within the time period is included. POC glucose 299 (H) 65 - 99 mg/dL [place] Comment: ANTONIO GLOVER Meter ID: [id number] [facility] Casing Fluid Tender: Shun Garcia (TECH) Specimen Performing Organization Address City/[facility]/Zipcode [place] Number [place] [address] [place] [address] PATHOLOGY AND GENOMIC MEDICINE [place] ANTONIO GLOVER [address] [place] [address] [facility] * ECG 12 lead (09/24/2018 7:32 PM CDT) Only the most recent of 8 results within the time period is included. Ventricular 95 [facility] MUSE rate Atrial rate 95 [facility] FL interval 152 [facility] QRSD interval 92 [...] Specimen Narrative Performed At Performing Organization Address [facility] Phone Number [facility] MUSE [address] [place] [address] * ECG ED Preliminary Interpretation - Not an Order (09/24/2018 7:32 PM CDT) Only the most recent of 5 results within the time period is included. Narrative Performed At Pepito Slade MD 09/25/2018 12:13 AM ECG ED Preliminary Interpretation - Not an Order Performed by: Pepito Slade MD Authorized by: Pepito Slade MD ECG reviewed by ED Physician in the absence of a patient care representative: yes (2007) Interpretation: Interpretation: normal Rate: ECG [...] included. Magnesium 1.7 1.6 - 2.6 mg/dL [facility] Specimen Plasma specimen Performing Organization Address [facility] Phone Number [address] [place] [address] PATHOLOGY AND GENOMIC MEDICINE [address] * Creatine kinase, total (CPK) (05/17/2018 6:15 PM CDT) Creatine kinase 114 39 - 308 U/L [facility] Specimen Plasma specimen Performing Organization Address [facility] Phone Number [address] [place] [address] PATHOLOGY AND GENOMIC MEDICINE [address] * XR Toe 2+ Vw Left [...] of the IP joint of the hallux. [facility] [id number] [id number] Procedure Note Interface, Radiology Results Incoming - [...] of the IP joint of the hallux. [facility] [place] [id number] Performing Organization Address [facility] Phone Number [facility] [address] [place] [address] * XR Chest 2 Vw (05/17/2018 6:05 [...] process or active disease of the chest. [id number] Procedure Note Interface, Radiology Results Incoming - [...] process or active disease of the chest. [id number] Performing Organization Address City/[facility]/Zipcode Phone Number [facility] [address] [place] [address] * Basic metabolic panel (05/04/2018 5:35 AM CDT) Only the most recent of 12 results within the time period is included. Sodium 132 (L) 135 - 148 mEq/L [facility] Potassium 4.8 3.5 - 5.0 mEq/L [facility] Chloride 94 (L) 98 - 112 mEq/L [facility] CO2 26 24 - 31 mEq/L [facility] Anion gap 12@ANIO 7 - 15 mEq/L [facility] BUN 22 (H) 6 - 20 mg/dL [facility] Creatinine 1.10 0.70 - 1.20 mg/dL [facility] Glucose 318 (H) 65 - 99 mg/dL [facility] Calcium 9.9 8.3 - 10.2 mg/dL [facility] Specimen Plasma specimen Performing Organization Address [facility] Phone Number [address] [place] [address] PATHOLOGY AND GENOMIC MEDICINE [address] * Hemoglobin A1c (05/03/2018 5:32 AM CDT) Hemoglobin A1C 6.5 (H) 4.0 - 6.0 % [place] Comment: [facility] Less than 6% - Goal of therapy for Type II Diabetes Less than 7%-Goal of therapy for Type I Diabetes Less than 8%-Accepta ble control for Type I or Type II Diabetes Greater than 8%-Unacceptabl e control; action indicated. ([id number]) Specimen Blood Performing Organization Address [facility] Phone Number [address] [place] [address] PATHOLOGY AND GENOMIC MEDICINE [address] * XR Chest 1 Vw Portable [...] effusion. There is no acute skeletal finding. [facility]-[id number] Procedure Note Interface, Radiology Results Incoming - [...] effusion. There is no acute skeletal finding. [id number] Performing Organization Address City/State/Zipcode Phone Number [facility] [address] [place] [address] * Cv computer lab para professional procedure (03/10/2018 3:08 PM NURSING STUDENT) Specimen Narrative Performed At [employer] Lui Lopez 1970 [id number] 03/10/18 Indications: Pulmonary hypertension Procedures: RHC with cardiac output Closure: Manual compression Access site: Right internal jugular vein Procedure details: Risks and benefits were discussed with the patient, informed consent was obtained. Patient was brought to the computer lab para professional in a fasting state and prepped in [...] 03/10/18 Patel Hammonds MD Performing Organization Address City/[facility]/Zipcode Phone Number [facility] [address] [place] [address] * POC CG8, arterial (03/10/2018 2:55 PM NURSING STUDENT) Only the most recent of 2 results within the time period is included. Pathologist [facility] POC sodium 140 135 - 148 mmol/L [facility] POC potassium 3.6 3.5 - 5.0 mmol/L [facility] POC hematocrit 38 (L) 41 - 51 % [facility] Ionized 1.17 1.11 - 1.32 mmol/L [place] [facility] arterial, [facility] pH, arterial, 7.37 7.35 - 7.45 [facility] pCO2, arterial, 47 (H) 35 - 45 mm Hg [facility] pO2, arterial, 30 (LL)Comment: MD/RN aware of 80 - 90 mm Hg [place] POC results! [facility] [place] O2 saturation, 54 (L) 95 - 100 % [place] arterial, [facility] Base excess, 2 -2 - 2 mmol/L [place] arterial, [facility] Bicarbonate, 27.4 21.0 - 28.0 mmol/L [place] arterialM[facility]RIST[facility] [place] CO2 calculated, 29 24 - 31 mmol/L [place] arterial, [facility] POC glucose 109 (H) 65 - 99 mg/dL [facility] Specimen Performing Organization Address [facility] Phone Number [facility] [place] [id number] [place] [address] [place] [address] PATHOLOGY AND GENOMIC MEDICINE [address] [place] [address] [facility] * Type and screen (03/10/2018 12:10 AM NURSING STUDENT) Only the most recent of 2 results within the time period is included. ABO grouping O [facility] Rh type NEG [facility] Antibody screen NEG [facility] Specimen Blood Performing Organization Address City/[facility] Phone Number [place] [phone] [place] [address] [place] [address] PATHOLOGY AND GENOMIC MEDICINE [address] * Arterial blood gas (03/08/2018 5:01 PM NURSING STUDENT) [facility] pH, arterial 7.44 7.35 - 7.45 [facility] pCO2, arterial 39 35 - 45 mmHg [facility] pO2, arterial 78 (L) 80 - 90 mmHg [facility] Bicarbonate, 26.5 21.0 - 28.0 mmol/L [facility] Base excess, 3 (H) -2 - 2 mEq/L [facility] O2 saturation, 97 95 - 100 % [facility] FiO2, inspired Unknown % [place] O2% [facility] [place] Specimen Blood Performing Organization Address [facility] Phone Number [facility] [address] [place] [address] PATHOLOGY AND GENOMIC MEDICINE [address] * Gram stain (03/04/2018 8:34 AM NURSING STUDENT) [facility] Gram stain Moderate WBC's [place] result Few Gram positive rods [facility] Comment: HOSPITAL Specimen Information Specimen Source: Urine Specimen Site: Catheterized Specimen Urine - Catheterized Performing Organization Address City/[facility] Phone Number [facility] [place] [address] PATHOLOGY AND GENOMIC MEDICINE [address] * Urine culture (03/04/2018 8:34 AM NURSING STUDENT) [facility] Urine culture Mixed erendira <=10-3 col/cc [place] isolate Comment: [facility] Specimen Information HOSPITAL Specimen Source: Urine Specimen Site: Catheterized Specimen Urine - Catheterized Performing Organization Address City/[facility]/Zipcode Phone Number [facility] DEPARTMENT OF [address] [place] [address] PATHOLOGY AND GENOMIC MEDICINE [address] * Urinalysis screen and microscopy, with reflex to culture (03/04/2018 7:40 AM NURSING STUDENT) Pathologist [facility] Specimen site Catheterized [facility] Color, UA Yellow [facility] Appearance, UA Clear [facility] Specific 1.024 1.001 - 1.035 [place] gravity, UA [facility] [place] pH, UA 5.0 5.0 - 8.5 [facility] Protein, UA Negative Negative [facility] Glucose, UA 3+ (A) Negative [facility] Ketones, UA Trace (A) Negative [facility] Bilirubin, UA Negative Negative [facility] Blood, UA Negative Negative [facility] Nitrite, UA Negative Negative [facility] Urobilinogen, Negative <2.0 [facility] Leukocyte Small (A) Negative [place] esterase, [facility] Epithelial Few /HPF [place] cells, UA [facility] [place] Round Few 0 - 1 /HPF [place] epithelial [facility] ST[address] cells, [facility] WBC, UA 6-10 (H) 0 - 1 /HPF [facility] RBC, UA 0-5 0 - 5 /HPF [facility] [facility] Bacteria, UA None seen None seen [facility] Yeast, UA None seen [facility] Yeast with None seen [place] [facility] Specimen Urine Performing Organization Address City/State/Zipcode [place] [address] [place] [address] PATHOLOGY AND GENOMIC MEDICINE [facility] [address] [place] [address] [facility] * D-dimer (03/03/2018 9:08 PM NURSING STUDENT) [facility] D-dimer <0.27 0.00 - 0.40 ug/mL [place] Comment: [facility] Units are ug/ml Fibrinogen [facility] Equivalent Unit. When combined with low clinical [...] Blood Performing Organization Address City/State/Zipcode [place] [address] [place] [address] PATHOLOGY AND GENOMIC MEDICINE [facility] [address] [place] [address] [facility] * Cv computer lab para professional procedure (12/24/2017 10:16 AM NURSING STUDENT) Specimen Narrative Performed At AMADEO Santos MD Physician Signed CardiologyBrief Op Note Date of Service: 12/24/2017 8:53 AM Case Time: 12/24/2017 8:53 AM Surgeon: Farzad Santos MD Procedure: CV LEFT HEART CATH LV GRAM WITH CORS Location: [facility] Invasive Location []Hide copied text []Hover for attribution information Cardiac Catheterization Operative Note Lui Lopez,[id number] y.o. male 12/24/2017; [facility] LUMBER TAILER RM 1 Procedure(s): CV LEFT HEART CATH [...] consent patient was brought in to the computer lab para professional and was prepped and draped in a [...] Implant Name Type Inv. Item Serial No. Beef Grinder Lot No. LRB No. Used Action DEVICE VASCLR CLSR VASOACTIVE INTSTNL PEPTD 6FR ANGIO-SEAL - [id number] Cardiovascular Implants DEVICE VASCLR CLSR VASOACTIVE INTSTNL PEPTD 6FR ANGIO-SEAL [id number] Right 1 Implanted Impression: Normal coronaries Elevated LVEDP Farzad Santos MD Date: 12/24/2017Time: 10:06 AM Performing Organization Address [facility] Phone Number [facility] [address] [place] [address] * Cv stress test (12/23/2017 2:52 PM NURSING STUDENT) Resting BP [facility] Protocol Name CHRISTA [...] ECG report.-Electronically Signed By Tom LOGAN, Farzad ([id number]), peoplesoft financial developer Merline Palmer ([id number]) on 12/24/2017 10:25:10 AM Specimen Performing Organization Address [facility] Phone Number [facility] MUSE [address] [place] [address] * Nm myocardial perfusion (12/23/2017 2:52 PM NURSING STUDENT) Target HR 173.00 bpm [facility] Resting [...] Address City/State/Zipcode Phone Number [facility] [address] [place] [address] * Echocardiogram complete w contrast and 3D if needed (12/22/2017 6:32 PM NURSING STUDENT) Velocity Ratio 0.99 m/s [facility] (V1/V2) [...] LV EF,BP 54.62 % [facility] [place],d A2C 8.13 cm [facility] [place],d A4C 8.20 cm [facility] [place],s A2C 6.33 cm [facility] [place],s A4C 6.75 cm [facility] LV SV,A2C [...] Address City/State/Zipcode Phone Number [facility] [address] [place] [address] * CT Angiogram Pe Chest (12/22/2017 5:48 AM NURSING STUDENT) Specimen Narrative Performed At EXAMINATION: CT ANGIOGRAM [...] enlarged. This is incompletely included in the [id number]-tu-jgcr. 9. Other Findings: None SUMMARY: 1. No CT scan evidence of acute pulmonary embolus. 2.Interstitial pulmonary congestion and mild pulmonary edema. No acute infiltrates. [facility]-[id number] Procedure Note Interface, Radiology Results [facility] - 12/22/2017 6:02 AM NURSING STUDENT EXAMINATION: CT ANGIOGRAM PE CHEST CLINICAL HISTORY: [...] enlarged. This is incompletely included in the qpkli-fk-lsns. 9. Other Findings: None SUMMARY: 1. No CT scan evidence of acute pulmonary embolus. 2. Interstitial pulmonary congestion and mild pulmonary edema. No acute infiltrates. [facility]-[id number] Performing Organization Address City/[facility]/Zipcode Phone Number [facility] [address] [place] [address] * Lipase level (12/22/2017 3:36 AM NURSING STUDENT) Pathologist [facility] Lipase 30 13 - 60 U/L [facility]PART[facility] OF PATHOLOGY AND GENOMIC MEDICINE Specimen Plasma specimen Performing Organization Address City/[facility]/[place] [address] PATHOLOGY AND [facility] * Hepatic function panel (12/22/2017 3:36 AM NURSING STUDENT) Pathologist [facility] Albumin 4.2 3.5 - 5.0 g/dL [facility] OF PATHOLOGY AND GENOMIC MEDICINE Total bilirubin 0.3 0.0 - 1.2 mg/dL [facility] OF PATHOLOGY AND GENOMIC MEDICINE Bilirubin <0.1 0.0 - 0.3 mg/dL [facility] direct DEPARTMENT OF PATHOLOGY AND GENOMIC MEDICINE Alkaline 86 40 - 129 U/L [facility] phosphatase DEPARTMENT OF PATHOLOGY AND [facility] MEDICINE Protein 7.2 6.3 - 8.3 g/dL [facility] Comment: DEPARTMENT OF PATHOLOGY AND 4.6-7.0 g/dL GENOMIC MEDICINE week 4.4-7.6 g/dL 7 months-1year 5.1-7.3 g/dL 1-2 years5.6-7 .5 g/dL >3 years6.0-8 .0 g/dL 18-150 6.3-8.3 g/dL ALT 24 5 - 50 U/L [facility] OF PATHOLOGY AND GENOMIC MEDICINE AST 35 10 - 50 U/L [facility]PART[facility] OF PATHOLOGY AND GENOMIC MEDICINE Specimen Plasma specimen Performing Organization Address City/State/Zipcode [place] [address] 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
--- OUTSIDE RECORDS SUMMARY | 2018-10-31 18:23 | XMS REPORT | Clinical Summary ---
Author Author AMISH Qardio Organization [facility] [employer] [facility] Address Unknown Phone Unavailable Care Team Providers Care Bar Host Name Role Phone Janet Stewart MD PCP Unavailable Allergies Comments Active Allergy Reactions Severity Noted Date Ampicillin Rash Low 01/21/2016 Baclofen 12/25/2016 Prochlorperazine 01/05/2017 Edisylate Cyclobenzaprine 12/25/2016 Caused nausea and Syncope ( When he passed out he broke his neck ) [place] Analogues 01/05/2017 Metoclopramide Hcl Rash Low 01/22/2016 [...] Not on file Results Not on fileafter 10/30/2017 Insurance Payer Benefit Subscriber ID Type Phone Address Plan / Group MEDICAID - MEDICAID [facility] xxxxxxxxx Medicaid CARE COMM STAR Contracted PLAN
--- OUTSIDE RECORDS SUMMARY | 2018-10-31 18:24 | XMS REPORT | Continuity of Care Document ---
Author Author [employer] Organization [employer] Address Unknown Phone Unavailable Care Team Providers [employer] [facility] Team Member Name Role Phone [employer] Unavailable Unavailable Problems Problem Status Onset Date Classification Date Reported Comments Source Physical deconditioning Active 04/25/2018 09/03/2018 [facility] Impaired mobility and ADLs Active 04/25/2018 09/03/2018 [facility] Impaired gait and mobility Active 04/25/2018 09/03/2018 [facility] At risk for falls Active 04/25/2018 09/03/2018 [facility] Chest pain Active 07/03/2010 09/03/2018 [facility] Pulmonary embolus Active 07/03/2010 09/03/2018 [facility] Syncope Active Problem 05/29/2018 [facility] TIA Active Problem 05/29/2018 [facility] Medications Medication Details Route Status Patient Instructions Ordering Provider Order Date Source Aspirin (Aspir 81) 81 Mg Tablet.dr Alvarenga Active Lakesha 04/10/2018 [facility] Hydroxyzine Hcl 25 Mg Tablet, 50 Mg Oral Every 8 Hours as needed for Anxiety Active 02/09/2018 [facility] Prednisone 10 Mg Tab, 10 Mg Oral Twice A Day Active 02/09/2018 [facility] clopidogrel (PLAVIX) 75 mg tablet Take 1 Tab by mouth daily. Oral Active 07/04/2010 [facility] gabapentin (NEURONTIN) 300 mg capsule Take 2 Caps by mouth 2 times daily. Oral Active 07/04/2010 [facility] nitroGLYCERIN (NITROSTAT) 0.[address] 1 Tab under tongue every 5 minutes as needed for Chest pain. Sublingual Active 07/04/2010 [facility] warfarin (COUMADIN) 7.5 mg tablet Take 1 Tab by mouth daily (warfarin). Oral Active 07/04/2010 [facility] risperdone (RISPERDAL) 1 mg tablet Take by mouth every morning. 0.5mg in am2.5mg in pmAs previously instructed Oral Active 07/04/2010 [facility] famotidine (PEPCID) 20 mg tablet Take 1 Tab by mouth 2 times daily. Oral Active 07/04/2010 [facility] lisinopril (PRINIVIL, ZESTRIL) 2.5 mg tablet Take 8 Tabs by mouth daily. Oral Active 07/04/2010 [facility] metoprolol tartrate (LOPRESSOR) 25 mg tablet Take 1 Tab by mouth 2 times daily. Oral Active 07/04/2010 [facility] rosuvastatin (CRESTOR) 10 mg tablet Take 1 Tab by mouth at bedtime. Oral Active 07/04/2010 [facility] nitroGLYCERIN (NITROSTAT) 0.[address] 1 Tab under tongue every 5 minutes as needed for Chest pain. Sublingual Active 07/04/2010 [facility] rosuvastatin (CRESTOR) 10 mg tablet Take 1 Tab by mouth at bedtime. Oral Active 07/04/2010 [facility] Atorvastatin Calcium 20 Mg Tablet Bedtime Active [facility] Carisoprodol (Soma) 350 Mg Tablet Every 8 Hours as needed for Cramps Active [facility] Clopidogrel Bisulfate (Plavix) 75 Mg Tablet Daily Active [facility] Doxepin Hcl 25 Mg Capsule Qhs Active [facility] Duloxetine Hcl (Cymbalta) 30 Mg Capsule.dr Alvarenga Active [facility] Furosemide 40 Mg Tablet Twice A Day Active [facility] Hydroxyzine Hcl 25 Mg Tablet Every 8 Hours as needed for Anxiety Active [facility] Lamotrigine (Lamictal) 25 Mg Tab Twice A Day Active [facility] Levetiracetam (Keppra) 500 Mg Tablet Twice A Day Active [facility] Lorazepam 0.5 Mg Tablet Every 8 Hours as needed for Anxiety Active [facility] Metoprolol Tartrate 25 Mg Tablet Twice A Day Active [facility] Mirtazapine 15 Mg Tab Qhs Active [facility] Pantoprazole Sodium (Protonix) 40 Mg Tablet.dr Alvarenga Active [facility] Prednisone 10 Mg Tab Twice A Day Active [facility] Pregabalin (Lyrica) 50 Mg Cap Twice A Day Active [facility] Promethazine Hcl 25 Mg Tablet Every 6 Hours as needed for Nasal Congestion Active [facility] Quetiapine Fumarate 25 Mg Tablet Every Morning Active [facility] Quetiapine Fumarate 100 Mg Tablet Qhs Active [facility] Rivaroxaban (Xarelto) 20 Mg Tablet Daily Active [facility] Trazodone Hcl 50 Mg Tablet Qhs Active [facility] Atorvastatin Calcium 20 Mg Tablet Bedtime Active [facility] Carisoprodol (Soma) 350 Mg Tablet Every 8 Hours as needed for Cramps Active [facility] Clopidogrel Bisulfate (Plavix) 75 Mg Tablet Daily Active [facility] Doxepin Hcl 25 Mg Capsule Qhs Active [facility] Duloxetine Hcl (Cymbalta) 30 Mg Capsule. Twice A Day Active [facility] Fenofibrate (Tricor) 145 Mg Tab Daily Active [facility] Furosemide 40 Mg Tablet Twice A Day Active [facility] Isosorb [place]/Imdur Daily Active [facility] Lamotrigine (Lamictal) 25 Mg Tab Twice A Day Active [facility] Levetiracetam (Keppra) 500 Mg Tablet Twice A Day Active [facility] Lorazepam 0.5 Mg Tablet Every 8 Hours as needed for Anxiety Active [facility] Meloxicam (Mobic) 15 Mg Tablet Daily Active [facility] Metformin Hcl 1,000 Mg Tablet Twice A Day Active [facility] Metoprolol Tartrate 25 Mg Tablet Twice A Day Active [facility] Mirtazapine 15 Mg Tab Qhs Active [facility] Pantoprazole Sodium (Protonix) 40 Mg Tablet. Daily Active [facility] Pregabalin (Lyrica) 50 Mg Cap Twice A Day Active [facility] Promethazine Hcl 25 Mg Tablet Every 6 Hours as needed for Nasal Congestion Active [facility] Quetiapine Fumarate 25 Mg Tablet Every Morning Active [facility] Quetiapine Fumarate 100 Mg Tablet Qhs Active [facility] Ranolazine (Ranexa) 500 Mg Tabsr Twice A Day Active [facility] Risperidone (Risperdal) 1 Mg Tablet Twice A Day Active [facility] Rivaroxaban (Xarelto) 20 Mg Tablet Daily Active [facility] Trazodone Hcl 50 Mg Tablet Qhs Active [facility] Allergies, Adverse Reactions, Alerts Substance Category Reaction Severity Reaction type Status Date Reported Comments Source Morphine Propensity to adverse reactions to drug Active 07/03/2010 [facility] Ondansetron Hcl (Pf) Propensity to adverse reactions to drug Active 07/03/2010 [facility] Green Vegetables Unknown Allergy to Substance Active 04/20/2017 [facility] Margerine Unknown Allergy to Substance Active 04/20/2017 [facility] Paper Tape Unknown Allergy to Substance Active 04/20/2017 [facility] Ampicillin Unknown Allergy to Substance Active 04/10/2018 [facility] Metoclopramide Unknown Allergy to Substance Active 04/10/2018 [facility] Ondansetron Unknown Allergy to Substance Active 04/10/2018 [facility] Tramadol EARS RINGING Intermediate Allergy to Substance Active 04/10/2018 [facility] Gabapentin Mild Allergy to Substance Active 04/10/2018 [facility] Ketorolac RASH Intermediate Allergy to Substance Active 04/10/2018 [facility] Immunizations No Data Provided for This Section Results Order Name Results Value Reference Range Date Interpretation Comments Source Urine color determination YELLOW YELLOW 05/29/2018 [facility] Urine clarity CLEAR CLEAR 05/29/2018 [facility] Specific gravity of Urine by Test strip 1.010 1.010 - 1.025 05/29/2018 [facility] Urine pH measurement by automated test strip 7 5 - 7 05/29/2018 [facility] Urine leukocyte esterase detection by dipstick NEGATIVE NEGATIVE 05/29/2018 [facility] Urine nitrite detection NEGATIVE NEGATIVE 05/29/2018 [facility] Urine protein measurement by test strip (mass/volume) NEGATIVE NEGATIVE 05/29/2018 [facility] Urine glucose detection NEGATIVE NEGATIVE 05/29/2018 [facility] Urine ketones detection by automated test strip NEGATIVE NEGATIVE 05/29/2018 [facility] Urine opiates screening test NEGATIVE NEGATIVE 05/29/2018 [facility] Barbiturates screen, urine NEGATIVE NEGATIVE 05/29/2018 [facility] Urine phencyclidine detection by screening method NEGATIVE NEGATIVE 05/29/2018 [facility] Urine amphetamines detection by screen method > 1000 ng/mL NEGATIVE NEGATIVE 05/29/2018 [facility] Urine Methamphetamines Screen NEGATIVE NEGATIVE 05/29/2018 [facility] Urine benzodiazepines detection by screening method NEGATIVE NEGATIVE 05/29/2018 [facility] Urine cocaine measurement (mass/volume) NEGATIVE NEGATIVE 05/29/2018 [facility] Urine cannabinoids detection by screening method NEGATIVE NEGATIVE 05/29/2018 [facility] Urine methadone screen NEGATIVE NEGATIVE 05/29/2018 [facility] Urine urobilinogen measurement by test strip (mass/volume) 0.2 0.2 - 1 05/29/2018 [facility] Urine total bilirubin measurement (mass/volume) NEGATIVE NEGATIVE 05/29/2018 [facility] Urine erythrocytes detection NEGATIVE NEGATIVE 05/29/2018 [facility] Automated urine sediment leukocyte count by microscopy (number/high power field) 0-5 0 - 5 05/29/2018 [facility] Erythrocytes detection in urine sediment by light microscopy 0-5 0 - 5 05/29/2018 [facility] Bacteria detection in urine sediment by light microscopy NONE NONE 05/29/2018 [facility] Epithelial cells detection in urine sediment by light microscopy RARE NONE 05/29/2018 [facility] Blood leukocytes automated count (number/volume) 11.14 4.8 - 10.8 05/29/2018 [facility] Blood erythrocytes automated count (number/volume) 4.74 4.3 - 5.7 05/29/2018 [facility] Blood hemoglobin measurement (moles/volume) 14.4 14.0 - 18.0 05/29/2018 [facility] Automated blood hematocrit (volume fraction) 42.5 38.2 - 49.6 05/29/2018 [facility] Automated erythrocyte mean corpuscular volume 89.7 81 - 99 05/29/2018 [facility] Automated erythrocyte mean corpuscular hemoglobin (mass per erythrocyte) 30.4 28 - 32 05/29/2018 [facility] Automated erythrocyte mean corpuscular hemoglobin concentration measurement (mass/volume) 33.9 31 - 35 05/29/2018 [facility] RDW BldCo-Rto 13.5 11.7 - 14.4 05/29/2018 [facility] Automated blood platelet count (count/volume) 262 140 - 360 05/29/2018 [facility] Automated blood segmented neutrophil count as percentage of total leukocytes 58.3 38.7 - 80.0 05/29/2018 [facility] Automated blood lymphocyte count as percentage ot total leukocytes 30.2 18.0 - 39.1 05/29/2018 [facility] Automated blood monocyte count as percentage of total leukocytes 7.1 4.4 - 11.3 05/29/2018 [facility] Automated blood eosinophil count as percentage of total leukocytes 1.7 0.0 - 6.0 05/29/2018 [facility] Automated blood basophil count as percentage of total leukocytes 0.4 0.0 - 1.0 05/29/2018 [facility] IM GRANULOCYTES % 2.3 0.0 - 1.0 05/29/2018 [facility] Automated blood neutrophil count 6.5 2.1 - 6.9 05/29/2018 [facility] Blood lymphocytes count (number/volume) 3.4 1.0 - 3.2 05/29/2018 [facility] Blood monocytes automated count (number/volume) 0.8 0.2 - 0.8 05/29/2018 [facility] Automated blood eosinophil count 0.2 0.0 - 0.4 05/29/2018 [facility] Automated blood basophil count (count/volume) 0.1 0.0 - 0.1 05/29/2018 [facility] Absolute Immature Granulocyte (auto 0.26 0 - 0.1 05/29/2018 [facility] Prothrombin time (PT) in platelet poor plasma by coagulation assay 12.9 11.9 - 14.5 05/29/2018 [facility] INR in Platelet poor plasma by Coagulation assay 0.92 05/29/2018 [facility] Activated partial thromboplastin time (aPTT) in platelet poor plasma bycoagulation assay 27.8 23.8 - 35.5 05/29/2018 [facility] Serum or plasma sodium measurement (moles/volume) 138 136 - 145 05/29/2018 [facility] Serum or plasma potassium measurement (moles/volume) 3.4 3.5 - 5.1 05/29/2018 [facility] Serum or plasma chloride measurement (moles/volume) 97 98 - 107 05/29/2018 [facility] Serum or plasma carbon dioxide, total measurement (moles/volume) 28 22 - 29 05/29/2018 [facility] Serum or plasma anion gap 16.4 8 - 16 05/29/2018 [facility] Serum or plasma urea nitrogen measurement (mass/volume) 19 7 - 26 05/29/2018 [facility] Serum or plasma creatinine measurement (mass/volume) 1.26 0.72 - 1.25 05/29/2018 [facility] Serum or plasma urea nitrogen/creatinine mass ratio 15 6 - 25 05/29/2018 [facility] Estimated glomerular filtration rate (GFR) determination > 60 60 05/29/2018 [facility] Glucose measurement 146 74 - 118 05/29/2018 [facility] Serum or plasma calcium measurement (mass/volume) 9.6 8.4 - 10.2 05/29/2018 [facility] Serum or plasma total bilirubin measurement (mass/volume) 0.4 0.2 - 1.2 05/29/2018 [facility] Aspartate Amino Transf (AST/SGOT) 18 5 - 34 05/29/2018 [facility] Serum or plasma alanine aminotransferase measurement (enzymatic activity/volume) 31 0 - 55 05/29/2018 [facility] Serum or plasma protein measurement (mass/volume) 7.0 6.5 - 8.1 05/29/2018 [facility] Serum or plasma albumin measurement (mass/volume) 3.8 3.5 - 5.0 05/29/2018 [facility] Plasma globulin measurement (mass/volume) 3.2 2.3 - 3.5 05/29/2018 [facility] Serum or plasma albumin/globulin mass ratio 1.2 0.8 - 2.0 05/29/2018 [facility] Serum or plasma alkaline phosphatase measurement (enzymatic activity/volume) 104 40 - 150 05/29/2018 [facility] BNP Bld-mCnc 34.1 0 - 100 05/29/2018 [facility] Serum or plasma creatine kinase measurement (enzymatic activity/volume) 97 30 - 200 05/29/2018 [facility] Serum or plasma creatine kinase MB measurement (mass/volume) 1.50 0 - 5.0 05/29/2018 [facility] Troponin I measurement by highly sensitive enzyme immunoassay 0.002 0 - 0.300 05/29/2018 [facility] Serum or plasma lipase measurement (enzymatic activity/volume) 41 8 - 78 05/29/2018 [facility] Serum or plasma amylase measurement (enzymatic activity/volume) 26 25 - 125 04/10/2018 [facility] Blood leukocytes automated count (number/volume) 6.31 4.8 - 10.8 04/10/2018 [facility] Blood erythrocytes automated count (number/volume) 4.45 4.3 - 5.7 04/10/2018 [facility] Blood hemoglobin measurement (moles/volume) 13.6 14.0 - 18.0 04/10/2018 [facility] Automated blood hematocrit (volume fraction) 40.6 38.2 - 49.6 04/10/2018 [facility] Automated erythrocyte mean corpuscular volume 91.2 81 - 99 04/10/2018 [facility] Automated erythrocyte mean corpuscular hemoglobin (mass per erythrocyte) 30.6 28 - 32 04/10/2018 [facility] Automated erythrocyte mean corpuscular hemoglobin concentration measurement (mass/volume) 33.5 31 - 35 04/10/2018 [facility] RDW BldCo-Rto 13.7 11.7 - 14.4 04/10/2018 [facility] Automated blood platelet count (count/volume) 226 140 - 360 04/10/2018 [facility] Automated blood segmented neutrophil count as percentage of total leukocytes 57.9 38.7 - 80.0 04/10/2018 [facility] Automated blood lymphocyte count as percentage ot total leukocytes 29.6 18.0 - 39.1 04/10/2018 [facility] Automated blood monocyte count as percentage of total leukocytes 9.0 4.4 - 11.3 04/10/2018 [facility] Automated blood eosinophil count as percentage of total leukocytes 2.2 0.0 - 6.0 04/10/2018 [facility] Automated blood basophil count as percentage of total leukocytes 0.5 0.0 - 1.0 04/10/2018 [facility] IM GRANULOCYTES % 0.8 0.0 - 1.0 04/10/2018 [facility] Automated blood neutrophil count 3.7 2.1 - 6.9 04/10/2018 [facility] Blood lymphocytes count (number/volume) 1.9 1.0 - 3.2 04/10/2018 [facility] Blood monocytes automated count (number/volume) 0.6 0.2 - 0.8 04/10/2018 [facility] Automated blood eosinophil count 0.1 0.0 - 0.4 04/10/2018 [facility] Automated blood basophil count (count/volume) 0.0 0.0 - 0.1 04/10/2018 [facility] Absolute Immature Granulocyte (auto 0.05 0 - 0.1 04/10/2018 [facility] Prothrombin time (PT) in platelet poor plasma by coagulation assay 13.0 11.9 - 14.5 04/10/2018 [facility] INR in Platelet poor plasma by Coagulation assay 0.90 04/10/2018 [facility] Activated partial thromboplastin time (aPTT) in platelet poor plasma bycoagulation assay 30.7 23.8 - 35.5 04/10/2018 [facility] Urine color determination YELLOW YELLOW 04/10/2018 [facility] Urine clarity CLEAR CLEAR 04/10/2018 [facility] Specific gravity of Urine by Test strip 1.015 1.010 - 1.025 04/10/2018 [facility] Urine pH measurement by automated test strip 6 5 - 7 04/10/2018 [facility] Urine leukocyte esterase detection by dipstick NEGATIVE NEGATIVE 04/10/2018 [facility] Urine nitrite detection NEGATIVE NEGATIVE 04/10/2018 [facility] Urine protein measurement by test strip (mass/volume) NEGATIVE NEGATIVE 04/10/2018 [facility] Urine glucose detection 1+ NEGATIVE 04/10/2018 [facility] Urine ketones detection by automated test strip NEGATIVE NEGATIVE 04/10/2018 [facility] Urine urobilinogen measurement by test strip (mass/volume) 0.2 0.2 - 1 04/10/2018 [facility] Urine total bilirubin measurement (mass/volume) NEGATIVE NEGATIVE 04/10/2018 [facility] Urine erythrocytes detection NEGATIVE NEGATIVE 04/10/2018 [facility] Automated urine sediment leukocyte count by microscopy (number/high power field) 0-5 0 - 5 04/10/2018 [facility] Erythrocytes detection in urine sediment by light microscopy NONE 0 - 5 04/10/2018 [facility] Bacteria detection in urine sediment by light microscopy NONE NONE 04/10/2018 [facility] Epithelial cells detection in urine sediment by light microscopy NONE NONE 04/10/2018 [facility] Serum or plasma sodium measurement (moles/volume) 133 136 - 145 04/10/2018 [facility] Serum or plasma potassium measurement (moles/volume) 4.1 3.5 - 5.1 04/10/2018 [facility] Serum or plasma chloride measurement (moles/volume) 103 98 - 107 04/10/2018 [facility] Serum or plasma carbon dioxide, total measurement (moles/volume) 25 22 - 29 04/10/2018 [facility] Serum or plasma anion gap 9.1 8 - 16 04/10/2018 [facility] Serum or plasma urea nitrogen measurement (mass/volume) 10 7 - 26 04/10/2018 [facility] Serum or plasma creatinine measurement (mass/volume) 1.06 0.72 - 1.25 04/10/2018 [facility] Serum or plasma urea nitrogen/creatinine mass ratio 9 6 - 25 04/10/2018 [facility] Estimated glomerular filtration rate (GFR) determination > 60 60 04/10/2018 [facility] Glucose measurement 159 74 - 118 04/10/2018 [facility] Serum or plasma calcium measurement (mass/volume) 8.9 8.4 - 10.2 04/10/2018 [facility] Serum or plasma total bilirubin measurement (mass/volume) 0.4 0.2 - 1.2 04/10/2018 [facility] Aspartate Amino Transf (AST/SGOT) 25 5 - 34 04/10/2018 [facility] Serum or plasma alanine aminotransferase measurement (enzymatic activity/volume) 33 0 - 55 04/10/2018 [facility] Serum or plasma protein measurement (mass/volume) 6.1 6.5 - 8.1 04/10/2018 [facility] Serum or plasma albumin measurement (mass/volume) 3.6 3.5 - 5.0 04/10/2018 [facility] Plasma globulin measurement (mass/volume) 2.5 2.3 - 3.5 04/10/2018 [facility] Serum or plasma albumin/globulin mass ratio 1.4 0.8 - 2.0 04/10/2018 [facility] Serum or plasma alkaline phosphatase measurement (enzymatic activity/volume) 90 40 - 150 04/10/2018 [facility] BNP Bld-mCnc 55.4 0 - 100 04/10/2018 [facility] Serum or plasma creatine kinase measurement (enzymatic activity/volume) 138 30 - 200 04/10/2018 [facility] Serum or plasma creatine kinase MB measurement (mass/volume) 2.20 0 - 5.0 04/10/2018 [facility] Troponin I measurement by highly sensitive enzyme immunoassay < 0.001 0 - 0.300 04/10/2018 [facility] Serum or plasma amylase measurement (enzymatic activity/volume) 26 25 - 125 04/10/2018 [facility] Serum or plasma lipase measurement (enzymatic activity/volume) 30 8 - 78 04/10/2018 [facility] Capillary blood glucose measurement by glucometer (mass/volume) 145 70 - 120 02/13/2018 [facility] Capillary blood glucose measurement by glucometer (mass/volume) 145 70 - 120 02/13/2018 [facility] Urine opiates screening test NEGATIVE NEGATIVE 02/09/2018 [facility] Barbiturates screen, urine NEGATIVE NEGATIVE 02/09/2018 [facility] Urine phencyclidine detection by screening method NEGATIVE NEGATIVE 02/09/2018 [facility] Urine amphetamines detection by screen method > 1000 ng/mL NEGATIVE NEGATIVE 02/09/2018 [facility] Urine Methamphetamines Screen NEGATIVE NEGATIVE 02/09/2018 [facility] Urine benzodiazepines detection by screening method NEGATIVE NEGATIVE 02/09/2018 [facility] Urine cocaine measurement (mass/volume) NEGATIVE NEGATIVE 02/09/2018 [facility] Urine cannabinoids detection by screening method NEGATIVE NEGATIVE 02/09/2018 [facility] Urine methadone screen NEGATIVE NEGATIVE 02/09/2018 [facility] Venous Blood pH 7.435 7.35 - 7.38 02/09/2018 [facility] Venous Blood Partial Pressure CO2 36.1 44 - 48 02/09/2018 [facility] Venous Blood Partial Pressure O2 37 40 - 41 02/09/2018 [facility] Venous Blood HCO3 24.1 21 - 22 02/09/2018 [facility] Venous Blood Total Carbon Dioxide 25 02/09/2018 [facility] Venous Blood Base Excess 0 02/09/2018 [facility] Venous Blood Oxygen Saturation 73 02/09/2018 [facility] FiO2 21 02/09/2018 [facility] Venous Blood pH 7.435 7.35 - 7.38 02/09/2018 [facility] Venous Blood Partial Pressure CO2 36.1 44 - 48 02/09/2018 [facility] Venous Blood Partial Pressure O2 37 40 - 41 02/09/2018 [facility] Venous Blood HCO3 24.1 21 - 22 02/09/2018 [facility] Venous Blood Total Carbon Dioxide 25 02/09/2018 [facility] Venous Blood Base Excess 0 02/09/2018 [facility] Venous Blood Oxygen Saturation 73 02/09/2018 [facility] FiO2 21 02/09/2018 [facility] Serum or plasma magnesium measurement (mass/volume) 1.8 1.3 - 2.1 02/09/2018 [facility] Serum or plasma magnesium measurement (mass/volume) 1.8 1.3 - 2.1 02/09/2018 [facility] Lactic Acid Level 14.5 4.5 - 19.8 06/23/2017 [facility] Lactic Acid Level 14.5 4.5 - 19.8 06/23/2017 [facility] Automated blood basophil count (count/volume) Automated blood basophil count (count/volume) 0.0 0.0 - 0.1 06/23/2017 [facility] [facility] Automated blood basophil count as percentage of total leukocytes Automated blood basophil count as percentage of total leukocytes 0.4 0.0 - 1.0 06/23/2017 [facility] Automated blood eosinophil count Automated blood eosinophil count 0.1 0.0 - 0.4 06/23/2017 [facility] Automated blood eosinophil count as percentage of total leukocytes Automated blood eosinophil count as percentage of total leukocytes 1.9 0.0 - 6.0 06/23/2017 [facility] Automated blood hematocrit (volume fraction) Automated blood hematocrit (volume fraction) 40.9 38.2 - 49.6 06/23/2017 [facility] Automated blood lymphocyte count as percentage ot total leukocytes Automated blood lymphocyte count as percentage ot total leukocytes 28.8 18.0 - 39.1 06/23/2017 [facility] Automated blood monocyte count as percentage of total leukocytes Automated blood monocyte count as percentage of total leukocytes 6.9 4.4 - 11.3 06/23/2017 [facility] Automated blood neutrophil count Automated blood neutrophil count 4.3 2.1 - 6.9 06/23/2017 [facility] Automated blood platelet count (count/volume) Automated blood platelet count (count/volume) 235 140 - 360 06/23/2017 [facility] Automated blood segmented neutrophil count as percentage of total leukocytes Automated blood segmented neutrophil count as percentage of total leukocytes 61.3 38.7 - 80.0 06/23/2017 [facility] Automated erythrocyte mean corpuscular hemoglobin (mass per erythrocyte) Automated erythrocyte mean corpuscular hemoglobin (mass per erythrocyte) 31.0 28 - 32 06/23/2017 [facility] Automated erythrocyte mean corpuscular hemoglobin concentration measurement (mass/volume) Automated erythrocyte mean corpuscular hemoglobin concentration measurement (mass/volume) 34.5 31 - 35 06/23/2017 [facility] Automated erythrocyte mean corpuscular volume Automated erythrocyte mean corpuscular volume 89.9 81 - 99 06/23/2017 [facility] Blood erythrocytes automated count (number/volume) Blood erythrocytes automated count (number/volume) 4.55 4.3 - 5.7 06/23/2017 [facility] Blood hemoglobin measurement (moles/volume) Blood hemoglobin measurement (moles/volume) 14.1 14.0 - 18.0 06/23/2017 [facility] Blood leukocytes automated count (number/volume) Blood leukocytes automated count (number/volume) 6.97 4.8 - 10.8 06/23/2017 [facility] Blood lymphocytes count (number/volume) Blood lymphocytes count (number/volume) 2.0 1.0 - 3.2 06/23/2017 [facility] Blood monocytes automated count (number/volume) Blood monocytes automated count (number/volume) 0.5 0.2 - 0.8 06/23/2017 [facility] Estimated glomerular filtration rate (GFR) determination Estimated glomerular filtration rate (GFR) determination 58 60 06/23/2017 [facility] Glucose measurement Glucose measurement 107 74 - 118 06/23/2017 [facility] Plasma globulin measurement (mass/volume) Plasma globulin measurement (mass/volume) 4.0 2.3 - 3.5 06/23/2017 [facility] Serum or plasma alanine aminotransferase measurement (enzymatic activity/volume) Serum or plasma alanine aminotransferase measurement (enzymatic activity/volume) 23 0 - 55 06/23/2017 [facility] Serum or plasma albumin measurement (mass/volume) Serum or plasma albumin measurement (mass/volume) 3.9 3.5 - 5.0 06/23/2017 [facility] Serum or plasma albumin/globulin mass ratio Serum or plasma albumin/globulin mass ratio 1.0 0.8 - 2.0 06/23/2017 [facility] Serum or plasma alkaline phosphatase measurement (enzymatic activity/volume) Serum or plasma alkaline phosphatase measurement (enzymatic activity/volume) 89 40 - 150 06/23/2017 [facility] Serum or plasma amylase measurement (enzymatic activity/volume) Serum or plasma amylase measurement (enzymatic activity/volume) 31 25 - 125 06/23/2017 [facility] Serum or plasma anion gap Serum or plasma anion gap 17.8 8 - 16 06/23/2017 [facility] Serum or plasma calcium measurement (mass/volume) Serum or plasma calcium measurement (mass/volume) 9.5 8.4 - 10.2 06/23/2017 [facility] Serum or plasma carbon dioxide, total measurement (moles/volume) Serum or plasma carbon dioxide, total measurement (moles/volume) 25 22 - 29 06/23/2017 [facility] Serum or plasma chloride measurement (moles/volume) Serum or plasma chloride measurement (moles/volume) 100 98 - 107 06/23/2017 [facility] Serum or plasma creatinine measurement (mass/volume) Serum or plasma creatinine measurement (mass/volume) 1.32 0.72 - 1.25 06/23/2017 [facility] Serum or plasma lipase measurement (enzymatic activity/volume) Serum or plasma lipase measurement (enzymatic activity/volume) 34 8 - 78 06/23/2017 [facility] Serum or plasma magnesium measurement (mass/volume) Serum or plasma magnesium measurement (mass/volume) 2.1 1.3 - 2.1 06/23/2017 [facility] Serum or plasma potassium measurement (moles/volume) Serum or plasma potassium measurement (moles/volume) 3.8 3.5 - 5.1 06/23/2017 [facility] Serum or plasma protein measurement (mass/volume) Serum or plasma protein measurement (mass/volume) 7.9 6.5 - 8.1 06/23/2017 [facility] Serum or plasma sodium measurement (moles/volume) Serum or plasma sodium measurement (moles/volume) 139 136 - 145 06/23/2017 [facility] Serum or plasma total bilirubin measurement (mass/volume) Serum or plasma total bilirubin measurement (mass/volume) 0.4 0.2 - 1.2 06/23/2017 [facility] Serum or plasma urea nitrogen measurement (mass/volume) Serum or plasma urea nitrogen measurement (mass/volume) 17 7 - 26 06/23/2017 [facility] Serum or plasma urea nitrogen/creatinine mass ratio Serum or plasma urea nitrogen/creatinine mass ratio 13 6 - 25 06/23/2017 [facility] Red Cell Distribution Width 13.5 11.7 - 14.4 06/23/2017 [facility] IM GRANULOCYTES % 0.7 0.0 - 1.0 06/23/2017 [facility] Absolute Immature Granulocyte (auto 0.05 0 - 0.1 06/23/2017 [facility] Aspartate Amino Transf (AST/SGOT) 31 5 - 34 06/23/2017 [facility] Serum or plasma creatine kinase MB measurement (mass/volume) Serum or plasma creatine kinase MB measurement (mass/volume) 1.10 0 - 5.0 2017 [facility] Serum or plasma creatine kinase measurement (enzymatic activity/volume) Serum or plasma creatine kinase measurement (enzymatic activity/volume) 69 30 - 200 2017 [facility] Troponin I measurement by highly sensitive enzyme immunoassay Troponin I measurement by highly sensitive enzyme immunoassay <0.001 0 - 0.300 2017 [facility] Serum or plasma cholesterol in HDL measurement (mass/volume) Serum or plasma cholesterol in HDL measurement (mass/volume) 25 40 - 60 2017 [facility] Serum or plasma cholesterol in LDL measurement (mass/volume) Serum or plasma cholesterol in LDL measurement (mass/volume) 52 60 - 130 2017 [facility] Serum or plasma cholesterol measurement (mass/volume) Serum or plasma cholesterol measurement (mass/volume) 132 0 - 199 2017 [facility] Serum or plasma total cholesterol/cholesterol in HDL mass ratio Serum or plasma total cholesterol/cholesterol in HDL mass ratio 5.3 3.9 - 4.7 2017 [facility] Serum or plasma triglyceride measurement (mass/volume) Serum or plasma triglyceride measurement (mass/volume) 276 0 - 149 2017 [facility] Activated partial thromboplastin time (aPTT) in platelet poor plasma bycoagulation assay Activated partial thromboplastin time (aPTT) in platelet poor plasma bycoagulation assay 32.7 23.8 - 35.5 05/26/2017 [facility] INR in Platelet poor plasma by Coagulation assay INR in Platelet poor plasma by Coagulation assay 1.14 05/26/2017 [facility] Prothrombin time (PT) in platelet poor plasma by coagulation assay Prothrombin time (PT) in platelet poor plasma by coagulation assay 13.7 11.9 - 14.5 05/26/2017 [facility] Automated urine sediment leukocyte count by microscopy (number/high power field) Automated urine sediment leukocyte count by microscopy (number/high power field) <10 0 - 5 04/20/2017 [facility] Bacteria detection in urine sediment by light microscopy Bacteria detection in urine sediment by light microscopy NONE NONE 04/20/2017 [facility] Calcium oxalate crystals detection in urine sediment by light microscopy Calcium oxalate crystals detection in urine sediment by light microscopy RARE FEW 04/20/2017 [facility] Epithelial cells detection in urine sediment by light microscopy Epithelial cells detection in urine sediment by light microscopy NONE NONE 04/20/2017 [facility] Erythrocytes detection in urine sediment by light microscopy Erythrocytes detection in urine sediment by light microscopy <5 0 - 5 04/20/2017 [facility] Specific gravity of Urine by Test strip Specific gravity of Urine by Test strip 1.020 1.010 - 1.025 04/20/2017 [facility] Urine clarity Urine clarity CLEAR CLEAR 04/20/2017 [facility] Urine color determination Urine color determination YELLOW YELLOW 04/20/2017 [facility] Urine erythrocytes detection Urine erythrocytes detection NEGATIVE NEGATIVE 04/20/2017 [facility] Urine glucose detection Urine glucose detection NEGATIVE NEGATIVE 04/20/2017 [facility] Urine ketones detection by automated test strip Urine ketones detection by automated test strip TRACE NEGATIVE 04/20/2017 [facility] Urine leukocyte esterase detection by dipstick Urine leukocyte esterase detection by dipstick 1+ NEGATIVE 04/20/2017 [facility] Urine nitrite detection Urine nitrite detection NEGATIVE NEGATIVE 04/20/2017 [facility] Urine pH measurement by automated test strip Urine pH measurement by automated test strip 5 5 - 7 04/20/2017 [facility] Urine protein measurement by test strip (mass/volume) Urine protein measurement by test strip (mass/volume) NEGATIVE NEGATIVE 04/20/2017 [facility] Urine total bilirubin measurement (mass/volume) Urine total bilirubin measurement (mass/volume) 1+ NEGATIVE 04/20/2017 [facility] Urine urobilinogen measurement by test strip (mass/volume) Urine urobilinogen measurement by test strip (mass/volume) 0.2 0.2 - 1 04/20/2017 [facility] Phosphorus measurement Phosphorus measurement 3.8 2.3 - 4.7 04/20/2017 [facility] Serum or plasma uric acid measurement (mass/volume) Serum or plasma uric acid measurement (mass/volume) 9.7 4.8 - 8.0 04/20/2017 [facility] Fibrin D-dimer DDU measurement in platelet poor plasma (mass/volume) Fibrin D-dimer DDU measurement in platelet poor plasma (mass/volume) 0.56 0.00 - 0.45 04/19/2017 [facility] B-Type Natriuretic Peptide <12.0 0 - 100 04/19/2017 [facility] Pathology Reports No Data Provided for This Section Diagnostic Reports No Data Provided for This Section Consultation Notes No Data Provided for This Section Discharge Summaries No Data Provided for This Section History and Physicals No Data Provided for This Section Vital Signs Vital Sign Value Date Comments Source Systolic (mm Hg) 117 04/24/2018 [facility] Diastolic (mm Hg) 74 04/24/2018 [facility] Heart Rate 81 04/24/2018 [facility] Encounters Location Location Details Encounter Type Encounter Number Reason For Visit Attending Provider ADM Date DC Date Status Source Outpatient [id number] TANA BENNETT 01/08/2016 [facility] Discharged Inpatient (obs) [id number] ALVARO SCHUMACHER MD 04/20/2017 04/21/2017 [facility] Discharged Inpatient (obs) [id number] DIANE RENTERIA MD 05/26/2017 2017 [facility] Departed Emergency Room [id number] DEBRA CLOUD MD 06/23/2017 06/23/2017 [facility] Departed Emergency Room [id number] ORACIO STARR MD 01/02/2018 01/02/2018 [facility] Discharged Inpatient [id number] DEXTER IDLL MD 02/09/2018 02/13/2018 [facility] Departed Emergency Room [id number] ORACIO STARR MD 04/10/2018 04/10/2018 [facility] Travel [id number] 04/24/2018 [facility] Therapy [id number] Katina Tracy PT 04/24/2018 04/24/2018 [facility] Departed Emergency Room [id number] REED CURTIS MD 05/29/2018 05/29/2018 [facility] Procedures Procedure Code Date Perfomer Comments Source Computed tomography of brain without radiopaque contrast [id number] 02/10/2018 [facility] Computed tomography of chest with contrast [id number] 02/09/2018 [facility] Computed tomography of abdomen and pelvis with contrast [id number] 06/23/2017 [facility] Assessment and Plan No Data Provided for This Section Plan of Care Plan of Care Date Source IMM Influenza Seasonal Nov to April (>/=19 yrs) 11/18/2018 [facility] Discharge Date 05/29/18 2:41am Disposition HOME, SELF-CARE Condition at Discharge Stable Instructions/Education Provided Chest Pain - Noncardiac Prescriptions See Medication Section 05/29/2018 [facility] Discharge Date 04/10/18 6:25pm Disposition HOME, SELF-CARE Condition at Discharge Stable Instructions/Education Provided Chest Pain - Chest Wall Forms Provided Work/School Excuse Prescriptions See Medication Section Referrals MARYBEL WOODARD MD Address: [address] [place] [id number] Additional Instructions/Education 1. Please f/u with [facility] outpt you are not having an acute cardiac event at this time 04/10/2018 [facility] IMM Influenza Seasonal Nov to April (>/=19 yrs) 11/18/2017 [facility] Discharge Date 06/23/17 11:07pm Disposition HOME, SELF-CARE Condition at Discharge Stable Instructions/Education Provided Abdominal Pain - Adult Vomiting - Adult Forms Provided Work/School Excuse Prescriptions See Medication Section Referrals JULIO PETTY MD Order Date: Call for an appointment Address: [address] [place] [phone] Additional Instructions/Education Call for follow up appointment [...] oral secretions or any new concerns. 06/23/2017 [facility] Social History Social History Date Source Social [...] Start Date Stop Date Never Smoker 05/29/2018 [facility] Tobacco UseTypesPacks/DayYears UsedDate Never Assessed Sex Assigned at BirthDate Recorded Not on file Job Start DateOccupationIndustry Not on file Not on file Not on file Travel HistoryTravel StartTravel End No recent travel history available. 07/03/2010 [facility] Family History No Data Provided for This Section Advance Directives Order Name Results Value Date Source Advance Directives Advance Directives Latest Code Status on FileCode StatusDate ActivatedDate InactivatedComments Full Code 07/03/2010 10:11 AM 07/04/2010 9:05 PM 09/03/2018 [facility] Advance Directives Advance Directives Latest Code Status on FileCode StatusDate ActivatedDate InactivatedComments Full Code 07/03/2010 10:11 AM 07/04/2010 9:05 PM 07/10/2018 [facility] Advance Directives Advance Directives For more information, please contact:[address] [id number] Code Status on FileCode StatusDate ActivatedDate InactivatedComments Full Code 07/03/2010 10:11 AM 07/04/2010 9:05 PM 07/06/2018 [facility] Advance Directives Advance Directives For more information, please contact:[address] [id number] Code Status on FileCode StatusDate ActivatedDate InactivatedComments Full Code 07/03/2010 10:11 AM 07/04/2010 9:05 PM 06/01/2018 [facility] Advance Directives Advance Directives Directive Response Recorded Date/Time Does the patient have an advance directive? No 02/09/18 7:58am Do you have a Directive to Physician? No 05/29/18 12:19am Do you have a Medical Power of Materials Research Engineer? No 05/29/18 12:19am Do you have an [...] rights and responsibilities? Yes 05/29/18 12:19am 05/29/2018 [facility] Advance Directives Advance Directives For more information, please contact:[address] [id number] Code Status on FileCode StatusDate ActivatedDate InactivatedComments Full Code 07/03/2010 10:11 AM 07/04/2010 9:05 PM 05/28/2018 [facility] Advance Directives Advance Directives For more information, please contact:[address] [address]Gwwfqy Code Status on FileCode StatusDate ActivatedDate InactivatedComments Full Code 07/03/2010 10:11 AM 07/04/2010 9:05 PM 05/07/2018 [facility] Advance Directives Advance Directives For more information, please contact:[address] [id number] Code Status on FileCode StatusDate ActivatedDate InactivatedComments Full Code 07/03/2010 10:11 AM 07/04/2010 9:05 PM 04/24/2018 [facility] Advance Directives Advance Directives Directive Response Recorded Date/Time Does the patient have an advance directive? No 02/09/18 7:58am Do you have a Directive to Physician? No 04/10/18 2:32pm Do you have a Medical Power of Materials Research Engineer? No 04/10/18 2:32pm Do you have an [...] rights and responsibilities? Yes 04/10/18 2:33pm 04/10/2018 [facility] Advance Directives Advance Directives Directive Response Recorded Date/Time Does the patient have an advance directive? No 05/27/17 1:44am If yes, is advance directive on file with [facility]? No 05/27/17 1:44am If not on file with [facility] will patient provide a copy? Yes 05/27/17 1:44am Do you have a Directive to Physician? No 06/23/17 9:24pm Do you have a Medical Power of Materials Research Engineer? No 06/23/17 9:24pm Do you have an [...] rights and responsibilities? Yes 06/23/17 9:24pm 06/23/2017 [facility] Functional Status No Data Provided for This Section
[2018-10-31] MEDS ORDERED: KETOROLAC TROMETHAMINE 30 MG/ML VIAL IV STA (18:31)
[2018-10-31] MEDS ORDERED: SODIUM CHLORIDE 0.9% 1000ML 1,000 ML IV STA (18:31)
--- NOTE | 2018-10-31 18:35 | NUR ---
ATTEMPTED TO OBTAIN PIV, PT MOVING DURING STICK, LINE INFILTRATED, OTHER RN TO OBTAIN PIV FOR LABS.
[2018-10-31] MEDS ORDERED: ASPIRIN 81 MG CHEW TAB PO ONE (18:45)
[2018-10-31] MEDS ORDERED: ALBUTEROL/IPRATROPIUM 3 ML NEB NEB ONE (19:15)
[2018-10-31] MEDS ORDERED: PREDNISONE 20 MG TAB PO ONE (20:30)
[2018-10-31 20:47] LABS: BASOPHILS % 0.5 % (0.0-1.0); EOSINOPHILS # (AUTO) 0.1 (0.0-0.4); EOSINOPHILS % 1.1 % (0.0-6.0); HEMATOCRIT 40.8 % (38.2-49.6); HEMOGLOBIN 14.1 g/dL (14.0-18.0); LYMPHOCYTES # (AUTO) 1.8 (1.0-3.2); LYMPHOCYTES % 23.7 % (18.0-39.1); MEAN CORPUSCULAR HEMOGLOBIN 31.2 pg (28-32); MEAN CORPUSCULAR HGB CONC 34.6 g/dL (31-35); MEAN CORPUSCULAR VOLUME 90.3 fL (81-99); MONOCYTES # (AUTO) 0.6 (0.2-0.8); NEUTROPHILS # (AUTO) 4.8 (2.1-6.9); NEUTROPHILS % 65.1 % (38.7-80.0); PLATELET COUNT 215 x10e3/uL (140-360); RED BLOOD COUNT 4.52 x10e6/uL (4.3-5.7); RED CELL DISTRIBUTION WIDTH 14.8 % (11.7-14.4)
--- NOTE | 2018-10-31 20:49 | Diagnostic Imaging Report ---
EXAMINATION: CHEST SINGLE (PORTABLE) INDICATION: ^ERMD ORDER ^[id number] ^1945 ^Y COMPARISON: Chest radiograph 10/24/2018 FINDINGS: AP view TUBES and LINES: None. LUNGS: Lungs are well inflated. Bilateral interstitial edema. Bibasilar atelectasis. PLEURA: No pleural effusion or pneumothorax. HEART AND MEDIASTINUM: Prominent cardiac silhouette. BONES AND SOFT TISSUES: Intact median sternotomy wires. Fixation of the cervical spine, unchanged. Soft tissues are unremarkable. UPPER ABDOMEN: No free air under the diaphragm. IMPRESSION: Bilateral interstitial edema and bibasilar atelectasis, slightly decreased when compared to prior exam. Signed by: Dr. Sandee Lewis M.D. on 10/31/2018 8:46 PM
[2018-10-31 20:55] LABS: INR 0.92; PROTHROMBIN TIME 12.9 seconds (11.9-14.5)
[2018-10-31] MEDS ORDERED: METHYLPREDNISOLONE SOD SUCC 125 MG/2ML VIAL IV SCH (21:00)
[2018-10-31 21:05] LABS: ALBUMIN 3.8 g/dL (3.5-5.0); ALBUMIN/GLOBULIN RATIO 1.2 (0.8-2.0); ANION GAP 16.3 mmol/L (8-16); CALCIUM 9.4 mg/dL (8.4-10.2); CREATININE, SERUM 1.46 mg/dL (0.72-1.25); POTASSIUM 3.3 mmol/L (3.5-5.1)
--- NOTE | 2018-10-31 21:12 | NUR ---
PT REQUESTING PAIN MEDICATION, INFORMED DR. HARMAN, PT ALLERGIC TO RX'D MEDICATIONS.
--- NOTE | 2018-10-31 21:41 | NUR ---
INFORMED PT THAT HE IS STABLE FOR D/C PER DR. HARMAN, PT AGRESSIVE TOWARDS STAFF, STATES "YOU'RE JUST A FAGGOT THAT CAN'T DO SHIT AND YOU'RE PISSING ME OFF SAYING I'M HERE JUST FOR PAIN MEDS".
[2018-10-31 22:59] VITALS: BP 130/82
== END 2018-10-31 23:00 | disposition home or self-care (01) ==
LOC: ER 18:20
DX: R07.89 Other chest pain (principal); R06.09 Other forms of dyspnea; J20.9 Acute bronchitis, unspecified; I10 Essential (primary) hypertension; I25.10 Atherosclerotic heart disease of native coronary artery without angina pectoris; F41.9 Anxiety disorder, unspecified; K21.9 Gastro-esophageal reflux disease without esophagitis; F25.9 Schizoaffective disorder, unspecified; Z85.028 Personal history of other malignant neoplasm of stomach
CPT/HCPCS: 36415; 71045; 80053; 82550; 82553; 83880; 84484; 85025; 85610; 93005; 94640; 99284

== ENCOUNTER 2019-07-27 19:08 | Observation (INO) | payer OTHER ==
[~2019-07-27] VITALS: Ht 188 cm; Wt 186.4 kg
[2019-07-27] MEDS: SODIUM CHLORIDE 0.9% 1000ML 1,000 ML IV SCH (03:35)
--- OUTSIDE RECORDS SUMMARY | 2019-07-27 19:14 | XMS REPORT | Clinical Summary ---
Author Author [facility] Address Unknown Phone Unavailable Care Team Providers Care Oil Deliverer Name Role Phone Janet Stewart MD PCP Unavailable Allergies Comments Active Allergy Reactions Severity Noted Date Ampicillin Rash Low 01/21/2016 Baclofen 12/25/2016 Prochlorperazine 01/05/2017 Edisylate Cyclobenzaprine 12/25/2016 Caused nausea and Syncope ( When he passed out he broke his neck ) [place] Analogues 01/05/2017 Metoclopramide Hcl Rash Low 01/22/2016 Morphine 12/25/2016 Hydrocodone-Acetaminophen 12/07/2018 Ondansetron Hcl Rash Low 10/23/2015 Paper tape Other 10/23/2015 PAPER TAPE Tape, Occlusive Adhesive 12/07/2018 Ketorolac Hives 11/30/2018 "sick" Tramadol 11/30/2018 Medications End Date Status Medication Sig Dispensed Refills Start Date Active potassium chloride Take 20 mEq 0 (KLOR-CON) 20 mEq packet by mouth daily. Active ALPRAZolam (XANAX) 0.5 MG Take 2 mg by 0 tablet mouth 3 (three) times daily as needed for Anxiety . Active methadone (DOLOPHINE) 5 Take 5 mg by 0 MG tablet mouth 2 (two) times daily as needed for Pain. Active carisoprodol (SOMA) 350 Take 1 tablet 90 tablet 0 02/06/201 MG tablet (350 mg 7 total) by mouth every 8 (eight) hours as needed for Muscle spasms. Max Daily Amount: 1,050 mg Active albuterol (ACCUNEB) 0.63 Take 3 mLs 75 mL 12 1 03/01/201 mg/3 mL nebulizer (0.63 mg 9 solution total) by nebulization every 6 (six) hours as needed for Wheezing or Shortness of Breath. Active aspirin 81 MG EC tablet Take 1 tablet 90 tablet 0 (81 mg total) 9 by mouth daily. Active atorvastatin (LIPITOR) 40 Take 1 tablet 90 tablet 0 MG tablet (40 mg total) 9 by mouth daily. Active budesonide (PULMICORT) 90 Inhale 1 puff 1 Inhaler 0 mcg/actuation inhaler by mouth via 9 inhaler 2 (two) times daily. Active clopidogrel (PLAVIX) 75 Take 1 tablet 90 tablet 0 mg tablet (75 mg total) 9 by mouth daily. Active doxepin (SINEQUAN) 100 MG Take 1 90 capsule 0 capsule capsule (100 9 mg total) by mouth nightly. Active DULoxetine (CYMBALTA) 60 Take 1 30 tablet 0 1 MG capsule capsule (60 9 mg total) by mouth daily. Active furosemide (LASIX) 40 MG Take 1 tablet 90 tablet 0 tablet (40 mg total) 9 by mouth 2 (two) times daily. Active hydrOXYzine (ATARAX) 50 Take 1 tablet 30 tablet 0 MG tablet (50 mg total) 9 by mouth every 8 (eight) hours as needed for Anxiety. Active isosorbide mononitrate Take 1 tablet 90 tablet 0 1 (IMDUR) 30 MG 24 hr (30 mg total) 9 tablet by mouth daily. Active levETIRAcetam (KEPPRA) Take 1 tablet 90 tablet 0 1 500 MG tablet (500 mg 9 total) by mouth 2 (two) times daily. Active metFORMIN (GLUCOPHAGE) Take 1 tablet 90 tablet 0 1 1000 MG tablet (1,000 mg 9 total) by mouth 2 (two) times daily with breakfast and dinner. Active mirtazapine (REMERON) 7.5 Take 1 tablet 90 tablet 0 MG tablet (7.5 mg 9 total) by mouth nightly. Active pantoprazole (PROTONIX) Take 1 tablet 90 tablet 0 20 MG tablet (20 mg total) 9 by mouth daily. Active pregabalin (LYRICA) 100 Take 1 60 capsule 0 MG capsule capsule (100 9 mg total) by mouth 2 (two) times daily. Max Daily Amount: 200 mg Active QUEtiapine (SEROQUEL) 400 Take 1 tablet 90 tablet 0 MG tablet (400 mg 9 total) by mouth nightly. Active ranolazine (RANEXA) 500 Take 1 tablet 90 tablet 0 MG 12 hr tablet (500 mg 9 total) by mouth 2 (two) times daily. Active rivaroxaban (XARELTO) 20 Take 1 tablet 90 tablet 0 mg Tab tablet (20 mg total) 9 by mouth daily. Active traZODone (DESYREL) 100 Take 2 90 tablet 0 MG tablet tablets (200 9 mg total) by mouth nightly. Active insulin detemir U-100 Inject 15 10 mL 0 12/19 (LEVEMIR) 100 unit/mL Units 9 injection subcutaneousl y nightly. Active metoprolol (LOPRESSOR) 25 Take 1.5 90 tablet 0 MG tablet tablets (37.5 9 mg total) by mouth 2 (two) times daily. 12/30/2018 Discontinued albuterol (ACCUNEB) 0.63 Take 1 ampule 0 mg/3 mL nebulizer by solution nebulization every 6 (six) hours as needed for Wheezing or Shortness of Breath . 12/30/2018 Discontinued aspirin 81 MG EC tablet Take 81 mg by 0 mouth daily. 12/30/2018 Discontinued budesonide (PULMICORT) 90 Inhale 1 puff 0 mcg/actuation inhaler by mouth via inhaler 2 (two) times daily. 12/30/2018 Discontinued clopidogrel (PLAVIX) 75 Take 75 mg by 0 mg tablet mouth daily. 12/30/2018 Discontinued metFORMIN (GLUCOPHAGE) Take 1,000 mg 0 1000 MG tablet by mouth 2 (two) times daily with breakfast and dinner. 12/30/2018 Discontinued metoprolol (LOPRESSOR) 25 Take 25 mg by 0 MG tablet mouth 2 (two) times daily. 12/30/2018 Discontinued pantoprazole (PROTONIX) Take 20 mg by 0 20 MG tablet mouth daily. 12/30/2018 Discontinued ranolazine (RANEXA) 500 Take 500 mg 0 MG 12 hr tablet by mouth 2 (two) times daily. 12/30/2018 Discontinued QUEtiapine (SEROQUEL) 400 Take 400 mg 0 MG tablet by mouth nightly. 12/30/2018 Discontinued hydrOXYzine (ATARAX) 50 Take 50 mg by 0 MG tablet mouth every 8 (eight) hours as needed for Anxiety. 12/30/2018 Discontinued isosorbide mononitrate Take 30 mg by 0 (IMDUR) 30 MG 24 hr mouth. tablet 12/30/2018 Discontinued atorvastatin (LIPITOR) 40 Take 40 mg by 0 12/0 7/201 MG tablet mouth daily . 6 12/30/2018 Discontinued furosemide (LASIX) 40 MG Take 40 mg by 0 tablet mouth 2 (two) times daily . 12/30/2018 Discontinued doxepin (SINEQUAN) 100 MG Take 100 mg 0 capsule by mouth nightly. 12/30/2018 Discontinued DULoxetine (CYMBALTA) 60 Take 60 mg by 0 MG capsule mouth daily. 12/30/2018 Discontinued levETIRAcetam (KEPPRA) Take 500 mg 0 500 MG tablet by mouth 2 (two) times daily. 12/26/2018 Discontinued LORazepam (ATIVAN) 0.5 MG Take 0.5 mg 0 tablet by mouth every 12 (twelve) hours as needed for Anxiety. 12/26/2018 Discontinued melatonin 5 mg Cap Take 5 mg by 0 mouth nightly. 12/30/2018 Discontinued mirtazapine (REMERON) 7.5 Take 7.5 mg 0 MG tablet by mouth nightly. 12/26/2018 Discontinued oxyCODONE-acetaminophen Take 1 tablet 0 (PERCOCET) 10-325 mg per by mouth tablet every 6 (six) hours as needed for Pain. 12/26/2018 Discontinued acetaminophen (TYLENOL) Take 650 mg 0 325 MG tablet by mouth every 6 (six) hours as needed for Pain. 12/30/2018 Discontinued pregabalin (LYRICA) 100 Take 1 60 capsule 2 /201 MG capsule capsule (100 8 mg total) by mouth 2 (two) times daily. Max Daily Amount: 200 mg 12/30/2018 Discontinued rivaroxaban (XARELTO) 20 Take 20 mg by 0 mg Tab tablet mouth daily. 12/30/2018 Discontinued traZODone (DESYREL) 100 Take 200 mg 0 11/09/ 201 MG tablet by mouth 9 nightly. 01/06/2019 Discontinued metoprolol (LOPRESSOR) 25 Take 2 90 tablet 0 12/30/201 MG tablet tablets (50 9 mg total) by mouth 2 (two) times daily. Active Problems Problem Noted Date Coronary artery disease involving makah coronary art lacey of makah heart 01/03/2019 with unstable angina pectoris Other chest pain 12/26/2018 Chest pain with high risk of acute coronary syndrome 12/25/2018 COPD (chronic obstructive pulmonary disease) 019 A-fib 12/07/2018 CHF (congestive heart failure) 12/07/2018 Essential hypertension 12/07/2018 History of stroke 12/07/2018 History of deep vein thrombosis (DVT) of lower extrem ity 12/07/2018 Factor 5 Leiden mutation, heterozygous 12/07/2018 Acute chest pain 11/30/2018 Bilateral swelling of feet 01/22/2016 Chest pain 01/21/2016 Precordial pain 01/21/2016 Encounters Care Team Description Date Type Specialty Justin Ruelas MD Acute chest pain (Primary Dx); Numbness and tingling of left leg; Morbid obesity ([facility]); Essential hypertension; PAF (paroxysmal atrial fibrillation) ([facility]); Cigarette nicotine dependence with other nicotine-induced disorder 02/24/2019 Emergency Emergency Medicine 02/23/2019 Orders Only General Internal Ne dicine 02/23/2019 Travel Momo Dougherty MD L CATH & PCI 01/05/2019 Surgery 01/03/2019 Orders Only General Internal Ne dicine [place] MD Parhizgar, Alireza, MD Lin, Fang-Ying, MD Chest pain with high risk of acute coron constance syndrome (Primary Dx); Atrial fibrillation, unspecified type (HCC); Pulmonary emphysema, unspecified emphysema type (HCC); Coronary artery disease involving makah coronary artery of makah heart with unstable angina pectoris (HCC); Acute chest pain; Essential hypertension; History of deep vein thrombosis (DVT) of lower extremity; Hx of abdominal aortic aneurysm; Bilateral swelling of feet; Acute on chronic diastolic congestive heart failure (HCC) 01/02/2019 [facility] Internal Ne dicine - Encounter 01/06/2019 01/02/2019 Travel 12/26/2018 Travel [place] MD Bhattarai, Alok, MD Merchant, Omar, MD Chest pain with high risk of acute coron constance syndrome (Primary Dx); Shortness of breath; Acute chest pain; Atrial fibrillation, unspecified type (HCC); Congestive heart failure, unspecified HF chronicity, unspecified heart failure type (HCC); Chronic obstructive pulmonary disease, unspecified COPD type (HCC); Essential hypertension; Factor 5 Leiden mutation, heterozygous (HCC); History of deep vein thrombosis (DVT) of lower extremity; History of stroke; Smoker; PALLAVI (obstructive sleep apnea) 12/25/2018 Hospital Cardiology - Encounter 12/30/2018 12/25/2018 Travel Singh Zaidi MD Hoffman, Maria, MD Allahham, Mahmoud, MD Acute chest pain (Primary Dx); Non-intractable vomiting with nausea, unspecified vomiting type; Coronary artery disease involving makah coronary artery of makah heart with angina pectoris (HCC); Atrial fibrillation, unspecified type (HCC); Chest pain, unspecified type; Congestive heart failure, unspecified HF chronicity, unspecified heart failure type (HCC); Chronic obstructive pulmonary disease, unspecified COPD type (HCC); Essential hypertension; Factor 5 Leiden mutation, heterozygous (HCC); History of deep vein thrombosis (DVT) of lower extremity; History of stroke; Bilateral swelling of feet; Bipolar 1 disorder, depressed, severe (HCC) 12/07/2018 Emergency Transplant - 12/10/2018 12/07/2018 Travel 12/01/2018 Travel Emir Corral MD Asim, Amna, MD Henderson, Val Jalloh MD Acute chest pain (Primary Dx); Bilateral hand pain; Acute bilateral low back pain without sciatica; Acute pain of left knee; Acute exacerbation of chronic obstructive pulmonary disease (COPD) (HCC); Precordial pain; Chronic bronchitis, unspecified chronic bronchitis type (HCC) 11/30/2018 Emergency Cardiology - 12/01/2018 11/30/2018 Orders Only General Internal Me dicine 11/30/2018 Travel after 07/26/2018 Family History Medical History Relation Name Comments Hodgkin's lymphoma Brother Stroke Brother COPD Father Cancer Father Heart disease Father Stroke Father Hodgkin's lymphoma Maternal Grandmother COPD Mother Heart disease Mother Hodgkin's lymphoma Mother Heart disease Sister Relation Name Status Comments Brother Father Maternal Grandmother Mother Sister Social History Date Tobacco Use Types Packs/Day Years Used Current Every Day Smoker Cigarettes Smokeless Tobacco: Never Used Alcohol Use Drinks/Week oz/Week Comments No Sex Assigned at Date Recorded Not on file Industry Job Start Date Occupation Not on file Not on file Not on file Travel End Travel History Travel Start No recent travel history available. Last Filed Vital Signs Time Taken Vital Sign Reading 02/24/2019 12:45 PM AVIONICS REPAIR TECHNICIAN Blood Pressure 117/66 02/24/2019 12:45 PM AVIONICS REPAIR TECHNICIAN Pulse 91 02/24/2019 12:49 PM AVIONICS REPAIR TECHNICIAN Temperature 37.2 C (98.9 F) 02/24/2019 11:15 AM AVIONICS REPAIR TECHNICIAN Respiratory Rate 19 02/24/2019 12:45 PM AVIONICS REPAIR TECHNICIAN Oxygen Saturation 97% 01/06/2019 7:18 AM AVIONICS REPAIR TECHNICIAN Inhaled Oxygen 21% Concentration 02/23/2019 11:03 PM AVIONICS REPAIR TECHNICIAN Weight 186 kg (410 lb) 02/23/2019 11:03 PM AVIONICS REPAIR TECHNICIAN Height 188 cm (6' 2") 02/23/2019 11:03 PM AVIONICS REPAIR TECHNICIAN Body Mass Index 52.64 Plan of Treatment Health Maintenance Due Date Last Done Comments PNEUMOCOCCAL VACCINE 2-64 1976 YEARS AT RISK (1 of 1 - PPSV23) HEMOGLOBIN A1C 06/02/2019 12/01/2018 INFLUENZA VACCINE (Season 10/20/2019 Ended) Procedures Comments Procedure Name Priority Date/Time Associated Diag nosis ED ECG INTERPRETATION Routine 02/24/2019 12:52 PM AVIONICS REPAIR TECHNICIAN TROPONIN I STAT 02/24/2019 9:[address] [address] BRAIN WITHOUT IV STAT 02/24/2019 CONTRAST 8:32 AM AVIONICS REPAIR TECHNICIAN CBC W/PLT COUNT & AUTO STAT 02/24/2019 DIFFERENTIAL 12:46 AM AVIONICS REPAIR TECHNICIAN TROPONIN I STAT 02/24/2019 12:46 AM AVIONICS REPAIR TECHNICIAN CBC W/PLT COUNT & AUTO STAT 02/24/2019 DIFFERENTIAL 12:46 AM AVIONICS REPAIR TECHNICIAN BASIC METABOLIC PANEL (7) STAT 02/24/2019 12:46 AM AVIONICS REPAIR TECHNICIAN XR CHEST 1 VIEW STAT 02/23/2019 PORTABLE/BEDSIDE 11:47 PM AVIONICS REPAIR TECHNICIAN ECG 12-LEAD STAT 02/23/2019 10:45 PM AVIONICS REPAIR TECHNICIAN VASCULAR DIAGRAM -SCAN 01/14/2019 3:50 PM AVIONICS REPAIR TECHNICIAN RHYTHM STRIP - SCAN 01/07/2019 11:40 AM AVIONICS REPAIR TECHNICIAN REPORT OF PROCEDURE - 01/07/2019 ENDOSCOPY SCAN 11:40 AM AVIONICS REPAIR TECHNICIAN CARDIAC CATH REPORT - 01/07/2019 SCAN 11:40 AM AVIONICS REPAIR TECHNICIAN POCT-GLUCOSE METER Routine 01/06/2019 12:06 PM AVIONICS REPAIR TECHNICIAN POCT-GLUCOSE METER Routine 01/06/2019 7:08 AM AVIONICS REPAIR TECHNICIAN BASIC METABOLIC PANEL (7) Routine 01/06/2019 4:48 AM AVIONICS REPAIR TECHNICIAN POCT-GLUCOSE METER Routine 01/05/2019 11:19 PM AVIONICS REPAIR TECHNICIAN L CATH & PCI 01/05/2019 Chest pain, unspeci fied 5:54 PM AVIONICS REPAIR TECHNICIAN type POCT-GLUCOSE METER Routine 01/05/2019 4:40 PM AVIONICS REPAIR TECHNICIAN APTT Routine 01/05/2019 11:52 AM AVIONICS REPAIR TECHNICIAN POCT-GLUCOSE METER Routine 01/05/2019 11:35 AM AVIONICS REPAIR TECHNICIAN POCT-GLUCOSE METER Routine 01/05/2019 7:13 AM AVIONICS REPAIR TECHNICIAN CBC W/PLT COUNT & AUTO Routine 01/05/2019 DIFFERENTIAL 1:26 AM AVIONICS REPAIR TECHNICIAN APTT Routine 01/05/2019 1:26 AM AVIONICS REPAIR TECHNICIAN CBC W/PLT COUNT & AUTO Routine 01/05/2019 DIFFERENTIAL 1:26 AM AVIONICS REPAIR TECHNICIAN PHOSPHORUS Routine 01/05/2019 1:26 AM AVIONICS REPAIR TECHNICIAN CALCIUM, IONIZED Routine 01/05/2019 1:26 AM AVIONICS REPAIR TECHNICIAN MAGNESIUM Routine 01/05/2019 1:26 AM AVIONICS REPAIR TECHNICIAN BASIC METABOLIC PANEL (7) Routine 01/05/2019 1:26 AM AVIONICS REPAIR TECHNICIAN POCT-GLUCOSE METER Routine 01/04/2019 9:02 PM AVIONICS REPAIR TECHNICIAN APTT Routine 01/04/2019 6:08 PM AVIONICS REPAIR TECHNICIAN POCT-GLUCOSE METER Routine 01/04/2019 4:21 PM AVIONICS REPAIR TECHNICIAN POCT-GLUCOSE METER Routine 01/04/2019 12:29 PM AVIONICS REPAIR TECHNICIAN APTT Routine 01/04/2019 10:50 AM AVIONICS REPAIR TECHNICIAN POCT-GLUCOSE METER Routine 01/04/2019 7:31 AM AVIONICS REPAIR TECHNICIAN CBC W/PLT COUNT & AUTO Routine 01/04/2019 DIFFERENTIAL 2:43 AM AVIONICS REPAIR TECHNICIAN APTT Routine 01/04/2019 2:43 AM AVIONICS REPAIR TECHNICIAN CBC W/PLT COUNT & AUTO Routine 01/04/2019 DIFFERENTIAL 2:43 AM AVIONICS REPAIR TECHNICIAN PHOSPHORUS Routine 01/04/2019 2:43 AM AVIONICS REPAIR TECHNICIAN CALCIUM, IONIZED Routine 01/04/2019 2:43 AM AVIONICS REPAIR TECHNICIAN MAGNESIUM Routine 01/04/2019 2:43 AM AVIONICS REPAIR TECHNICIAN BASIC METABOLIC PANEL (7) Routine 01/04/2019 2:43 AM AVIONICS REPAIR TECHNICIAN POCT-GLUCOSE METER Routine 01/03/2019 10:11 PM AVIONICS REPAIR TECHNICIAN APTT Routine 01/03/2019 7:54 PM AVIONICS REPAIR TECHNICIAN POCT-GLUCOSE METER Routine 01/03/2019 5:13 PM AVIONICS REPAIR TECHNICIAN APTT Routine 01/03/2019 1:29 PM AVIONICS REPAIR TECHNICIAN TROPONIN I Routine 01/03/2019 1:29 PM AVIONICS REPAIR TECHNICIAN POCT-GLUCOSE METER Routine 01/03/2019 1:25 PM AVIONICS REPAIR TECHNICIAN POCT-GLUCOSE METER Routine 01/03/2019 7:47 AM AVIONICS REPAIR TECHNICIAN ECG 12-LEAD Routine 01/03/2019 6:58 AM AVIONICS REPAIR TECHNICIAN Procedure Note - Interface, External Ris In - 01/03/2019 7:02 AM AVIONICS REPAIR TECHNICIAN Ventricula r Rate 99 BPM Atrial Rate 99 BPM P-R Interval 166 ms QRS Duration 92 ms Q-T Interval 392 ms QTC Calculatio n(Bazett) 503 ms P [place] 59 degrees R [place] 13 degrees T [place] 67 degrees Normal sinus rhythm Prolonged QT Abnormal ECG When compared with ECG of 9 19:45, Criteria for Inferior infarct are no longer Present ECG 12-LEAD STAT 01/03/2019 6:58 AM AVIONICS REPAIR TECHNICIAN CBC (HEMOGRAM ONLY) Routine 01/03/2019 6:29 AM AVIONICS REPAIR TECHNICIAN TROPONIN I Routine 01/03/2019 4:44 AM AVIONICS REPAIR TECHNICIAN MAGNESIUM Routine 01/03/2019 4:44 AM AVIONICS REPAIR TECHNICIAN BASIC METABOLIC PANEL (7) Routine 01/03/2019 4:44 AM AVIONICS REPAIR TECHNICIAN POCT-GLUCOSE METER Routine 01/03/2019 3:06 AM AVIONICS REPAIR TECHNICIAN APTT Routine 01/03/2019 2:55 AM AVIONICS REPAIR TECHNICIAN CBC W/PLT COUNT & AUTO STAT 01/02/2019 DIFFERENTIAL 9:48 PM AVIONICS REPAIR TECHNICIAN TROPONIN I STAT 01/02/2019 9:48 PM AVIONICS REPAIR TECHNICIAN B-TYPE NATRIURETIC FACTOR STAT 01/02/2019 (BNP) 9:48 PM AVIONICS REPAIR TECHNICIAN CBC W/PLT COUNT & AUTO STAT 01/02/2019 DIFFERENTIAL 9:48 PM AVIONICS REPAIR TECHNICIAN BASIC METABOLIC PANEL (7) STAT 01/02/2019 9:48 PM AVIONICS REPAIR TECHNICIAN XR CHEST 1 VIEW STAT 01/02/2019 PORTABLE/BEDSIDE 9:30 PM AVIONICS REPAIR TECHNICIAN ECG 12-LEAD Timed 01/02/2019 8:51 PM AVIONICS REPAIR TECHNICIAN RHYTHM STRIP - SCAN 01/01/2019 10:34 AM AVIONICS REPAIR TECHNICIAN TRANSFUSION SERVICE 12/30/2018 REPORT - SCAN 5:50 PM AVIONICS REPAIR TECHNICIAN REPORT OF PROCEDURE - 12/30/2018 ENDOSCOPY SCAN 4:11 PM AVIONICS REPAIR TECHNICIAN REPORT OF PROCEDURE - 12/30/2018 ENDOSCOPY SCAN 12:50 PM AVIONICS REPAIR TECHNICIAN POCT-GLUCOSE METER Routine 12/30/2018 8:19 AM AVIONICS REPAIR TECHNICIAN POCT-GLUCOSE METER Routine 12/29/2018 9:28 PM AVIONICS REPAIR TECHNICIAN POCT-GLUCOSE METER Routine 12/29/2018 5:17 PM AVIONICS REPAIR TECHNICIAN POCT-GLUCOSE METER Routine 12/29/2018 12:47 PM AVIONICS REPAIR TECHNICIAN POCT-GLUCOSE METER Routine 12/29/2018 7:51 AM AVIONICS REPAIR TECHNICIAN ABORH, MANUAL STAT 12/29/2018 4:39 AM AVIONICS REPAIR TECHNICIAN TYPE AND SCREEN, Routine 12/29/2018 AUTOMATED 4:12 AM AVIONICS REPAIR TECHNICIAN POCT-GLUCOSE METER Routine 12/28/2018 9:25 PM AVIONICS REPAIR TECHNICIAN POCT-GLUCOSE METER Routine 12/28/2018 5:53 PM AVIONICS REPAIR TECHNICIAN POCT-GLUCOSE METER Routine 12/28/2018 2:05 PM AVIONICS REPAIR TECHNICIAN POCT-GLUCOSE METER Routine 12/28/2018 8:18 AM AVIONICS REPAIR TECHNICIAN CBC W/PLT COUNT & AUTO Routine 12/28/2018 DIFFERENTIAL 4:40 AM AVIONICS REPAIR TECHNICIAN BASIC METABOLIC PANEL (7) Routine 12/28/2018 4:40 AM AVIONICS REPAIR TECHNICIAN CBC W/PLT COUNT & AUTO Routine 12/28/2018 DIFFERENTIAL 4:40 AM AVIONICS REPAIR TECHNICIAN PHOSPHORUS Routine 12/28/2018 4:40 AM AVIONICS REPAIR TECHNICIAN MAGNESIUM Routine 12/28/2018 4:40 AM AVIONICS REPAIR TECHNICIAN POCT-GLUCOSE METER Routine 12/27/2018 9:24 PM AVIONICS REPAIR TECHNICIAN NM CARDIAC PET PERFUSION STAT 12/27/2018 REST AND/OR STRESS 1:35 PM AVIONICS REPAIR TECHNICIAN TREADMILL Routine 12/27/2018 TOLERANCE(NON-NUCLEAR 1:30 PM AVIONICS REPAIR TECHNICIAN TREADMILL) POCT-GLUCOSE METER Routine 12/27/2018 8:55 AM AVIONICS REPAIR TECHNICIAN POCT-GLUCOSE METER Routine 12/26/2018 7:52 PM AVIONICS REPAIR TECHNICIAN POCT-GLUCOSE METER Routine 12/26/2018 4:41 PM AVIONICS REPAIR TECHNICIAN TROPONIN I Routine 12/26/2018 10:20 AM AVIONICS REPAIR TECHNICIAN RAPID DRUG SCREEN, URINE Routine 12/26/2018 6:57 AM AVIONICS REPAIR TECHNICIAN POCT-GLUCOSE METER Routine 12/26/2018 5:56 AM AVIONICS REPAIR TECHNICIAN CBC W/PLT COUNT & AUTO Routine 12/26/2018 DIFFERENTIAL 5:54 AM AVIONICS REPAIR TECHNICIAN CBC W/PLT COUNT & AUTO Routine 12/26/2018 DIFFERENTIAL 5:54 AM AVIONICS REPAIR TECHNICIAN PHOSPHORUS Routine 12/26/2018 5:54 AM AVIONICS REPAIR TECHNICIAN MAGNESIUM Routine 12/26/2018 5:54 AM AVIONICS REPAIR TECHNICIAN HEPATIC FUNCTION PANEL Routine 12/26/2018 5:54 AM AVIONICS REPAIR TECHNICIAN BASIC METABOLIC PANEL (7) Routine 12/26/2018 5:54 AM AVIONICS REPAIR TECHNICIAN TROPONIN I Routine 12/26/2018 5:54 AM AVIONICS REPAIR TECHNICIAN XR CHEST 1 VIEW STAT 12/25/2018 PORTABLE/BEDSIDE 8:02 PM AVIONICS REPAIR TECHNICIAN CBC W/PLT COUNT & AUTO STAT 12/25/2018 DIFFERENTIAL 7:52 PM AVIONICS REPAIR TECHNICIAN D-DIMER STAT 12/25/2018 7:52 PM AVIONICS REPAIR TECHNICIAN B-TYPE NATRIURETIC FACTOR STAT 12/25/2018 (BNP) 7:52 PM AVIONICS REPAIR TECHNICIAN TROPONIN I STAT 12/25/2018 7:52 PM AVIONICS REPAIR TECHNICIAN CBC W/PLT COUNT & AUTO STAT 12/25/2018 DIFFERENTIAL 7:52 PM AVIONICS REPAIR TECHNICIAN BASIC METABOLIC PANEL (7) STAT 12/25/2018 7:52 PM AVIONICS REPAIR TECHNICIAN ECG 12-LEAD STAT 12/25/2018 7:45 PM AVIONICS REPAIR TECHNICIAN RHYTHM STRIP - SCAN 12/23/2018 12:43 PM AVIONICS REPAIR TECHNICIAN POCT-GLUCOSE METER Routine 12/10/2018 5:44 PM CDT RHYTHM STRIP - SCAN 12/10/2018 4:00 PM CDT POCT-GLUCOSE METER Routine 12/10/2018 11:29 AM CDT POCT-GLUCOSE METER Routine 12/09/2018 11:26 PM CDT REPORT OF PROCEDURE - 12/09/2018 ENDOSCOPY SCAN 3:50 PM CDT CBC W/PLT COUNT & AUTO Routine 12/09/2018 DIFFERENTIAL 6:39 AM CDT CBC W/PLT COUNT & AUTO Routine 12/09/2018 DIFFERENTIAL 6:39 AM CDT POCT-GLUCOSE METER Routine 12/08/2018 10:41 PM CDT ECG 12-LEAD Routine 12/08/2018 6:43 AM CDT Procedure Note - Interface, External Ris In - 12/08/2018 6:48 AM CDT Ventricula r Rate 77 BPM Atrial Rate 77 BPM P-R Interval 166 ms QRS Duration 98 ms Q-T Interval 408 ms QTC Calculatio n(Bazett) 461 ms P [place] 70 degrees R [place] 28 degrees T [place] 57 degrees Normal sinus rhythm Inferior infarct (cited on or before 9) Abnormal ECG When compared with ECG of 19:29, Vent. rate has decreased BY 42 BPM ECG 12-LEAD STAT 12/08/2018 6:43 AM CDT CBC W/PLT COUNT & AUTO Routine 12/08/2018 DIFFERENTIAL 4:48 AM CDT LIPID PANEL Routine 12/08/2018 4:48 AM CDT TROPONIN I Routine 12/08/2018 4:48 AM CDT CBC W/PLT COUNT & AUTO Routine 12/08/2018 DIFFERENTIAL 4:48 AM CDT MAGNESIUM Routine 12/08/2018 4:48 AM CDT BASIC METABOLIC PANEL (7) Routine 12/08/2018 4:48 AM CDT POCT-GLUCOSE METER Routine 12/08/2018 12:22 AM CDT TROPONIN I Routine 12/08/2018 12:20 AM CDT ED ECG INTERPRETATION Routine 12/07/2018 8:21 PM CDT CBC W/PLT COUNT & AUTO STAT 12/07/2018 DIFFERENTIAL 8:01 PM CDT PT/APTT STAT 12/07/2018 8:01 PM CDT MAGNESIUM STAT 12/07/2018 8:01 PM CDT B-TYPE NATRIURETIC FACTOR STAT 12/07/2018 (BNP) 8:01 PM CDT TROPONIN I STAT 12/07/2018 8:01 PM CDT BASIC METABOLIC PANEL (7) STAT 12/07/2018 8:01 PM CDT CBC W/PLT COUNT & AUTO STAT 12/07/2018 DIFFERENTIAL 8:01 PM CDT XR CHEST 1 VIEW STAT 12/07/2018 PORTABLE/BEDSIDE 8:00 PM CDT ECG 12-LEAD Routine 12/07/2018 7:29 PM CDT RHYTHM STRIP - SCAN 12/03/2018 11:31 AM CDT REPORT OF PROCEDURE - 12/02/2018 ENDOSCOPY SCAN 1:50 PM CDT TROPONIN I STAT 12/01/2018 10:17 AM CDT CBC W/PLT COUNT & AUTO Routine 12/01/2018 DIFFERENTIAL 4:19 AM CDT CBC W/PLT COUNT & AUTO Routine 12/01/2018 DIFFERENTIAL 4:19 AM CDT BASIC METABOLIC PANEL (7) Routine 12/01/2018 4:19 AM CDT TSH/FREE T4 IF INDICATED Routine 12/01/2018 4:19 AM CDT HEMOGLOBIN A1C Routine 12/01/2018 4:19 AM CDT TROPONIN I STAT 12/01/2018 4:19 AM CDT RAPID DRUG SCREEN, URINE STAT 12/01/2018 1:14 AM CDT SODIUM, RANDOM URINE Routine 12/01/2018 1:14 AM CDT CREATININE, RANDOM URINE Routine 12/01/2018 1:14 AM CDT US RENAL COMPLETE STAT 12/01/2018 1:02 AM CDT XR SPINE LUMBAR COMPLETE STAT 11/30/2018 MIN 4 VIEWS 11:10 PM CDT XR KNEE LEFT COMPLETE (4 STAT 11/30/2018 VIEWS) 11:09 PM CDT XR WRIST RIGHT COMPLETE STAT 11/30/2018 (MIN 3 VIEWS) 11:09 PM CDT XR HAND 3 VIEWS RIGHT STAT 11/30/2018 11:09 PM CDT XR HAND 3 VIEWS LEFT STAT 11/30/2018 11:08 PM CDT XR CHEST PA OR AP 1 VIEW STAT 11/30/2018 IN DEPT. 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 Narrative Performed At Justin Ruelas MD 02/25/2019 11:33 AM ECG/EKG Interpretation Date/Time: 02/23/2019 10:45 PM Performed by: Justin Ruelas MD Authorized by: Justin Ruelas MD The ECG was interpreted by ED physician . The ECG is interpreted as sinus rhythm. Heart rate is 90 BPM. ECG reviewed and does not meet STEMI cr iteria. Patient tolerance: Patient tolerated the procedure well with no im mediate complications Comments: NO ACUTE ISCHEMIC CHANGES * Troponin I (02/24/2019 9:44 AM AVIONICS REPAIR TECHNICIAN) Only the most recent of 14 results within the time period is included. Troponin I <0.01 0.00 - 0.03 ng/mL [facility] Specimen Blood Narrative Performed At Troponin I (TnI) levels must be interpreted in the co ntext of the presenting [facility] symptoms and the clinical findings. Elevated TnI leve ls indicate myocardial [facility] damage, but are not specific for ischem ic heart disease. Elevated TnI levels are seen in patients with other cardiac con ditions (including myocarditis and congestive heart failure), and slight T nI elevations occur in patients with other conditions, including sepsis, astrid al failure, acidosis, acute neurological disease, and persistent tachyarrhythmia . Performing Organization Address City/State/Zipcode Ph one Number [facility] [address], [place] [address] [facility] * CT brain without IV contrast (02/24/2019 8:32 AM AVIONICS REPAIR TECHNICIAN) Specimen Narrative Performed At FINAL REPORT GE [place] CT, BRAIN, WITHOUT CONTRAST CLINICAL INDICATION:LEFT LEG NUMBNE SS LEFT LEG NUMBNESS COMPARISON: None TECHNIQUE:Noncontrast axial CT imag ing of the brain and skull. DOSE REDUCTION: Dose modulation, iterat devonte reconstruction, and/or weight-based adjustment of the mA/kV wa s utilized to reduce the radiation dose to as low as reasonably achievable. FINDINGS: No intracranial hemorrhage, midline katy ft or mass effect. Midline structures are normally developed. Mild chronic microvascular ischemic changes of the periventricular and subcortical white matter are present. No hydrocephalus. Orbits are within normal limits. No obstructive paranasal sinus disease. IMPRESSION: No acute intracranial findings If there is persistent clinical concern for intracranial pathology, MR examination is recommended for furth er characterization. Signed: Virgilio Spencer MD Report Verified Date/Time: 0 08:57:26 Reading Location: [facility] LiveTop Reading Room Procedure Note Interface, External Ris In - 02/24/2019 8:59 AM AVIONICS REPAIR TECHNICIAN FINAL REPORT CT, BRAIN, WITHOUT CONTRAST CLINICAL INDICATION: LEFT LEG NUMBNESS LEFT LEG NUMBNESS COMPARISON: None TECHNIQUE: Noncontrast axial CT imaging of the brain and skull. DOSE REDUCTION: Dose modulation, iterative reconstruction, and/or weight-based adjustment of the mA/kV was utilized to reduce the radiation dose to as low as reasonably achievable. FINDINGS: No intracranial hemorrhage, midline shift or mass effect. Midline structures are normally developed. Mild chronic microvascular ischemic changes of the periventricular and subcortical white matter are present. No hydrocephalus. Orbits are within normal limits. No obstructive paranasal sinus disease. IMPRESSION: No acute intracranial findings If there is persistent clinical concern for intracranial pathology, MR examination is recommended for further characterization. Signed: Virgilio Spencer MD Report Verified Date/Time: 02/24/2019 08:57:26 Reading Location: [facility] Radiology Reading Room Performing Organization Address City/State/Zipcode Ph one Number [facility] * CBC with platelet count + automated diff (02/24/2019 12:46 AM AVIONICS REPAIR TECHNICIAN) Only the most recent of 12 results within the time period is included. WBC 8.0 3.5 - 10.5 K/L [facility] RBC 4.67 4.63 - 6.08 M/L [facility] Hemoglobin 14.2 13.7 - 17.5 GM/DL [facility] Hematocrit 42.9 40.1 - 51.0 % [facility] MCV 91.9 79.0 - 92.2 fL [facility] MCH 30.4 25.7 - 32.2 pg [facility] MCHC 33.1 32.3 - 36.5 GM/DL [facility] RDW 14.2 11.6 - 14.4 % [facility] Platelets 220 150 - 450 K/CU MM [facility] MPV 9.8 9.4 - 12.4 fL [facility] nRBC 0 0 - 0 /100 WBC [facility] % Neutros 66 % [facility] % Lymphs 22 % [facility] % Monos 9 % [facility] % Eos 2 % [facility] % Baso 1 % [facility] # Neutros 5.28 1.78 - 5.38 K/L [facility] # Lymphs 1.78 1.32 - 3.57 K/L [facility] # Monos 0.71 0.30 - 0.82 K/L [facility] # Eos 0.14 0.04 - 0.54 K/L [facility] # Baso 0.04 0.01 - 0.08 K/L [facility] Immature 0 0 - 1 % [facility] Granulocytes-Relative [facility] Specimen Blood Performing Organization Address City/State/[facility] Ph one Number [facility] [address], [place] [address] [facility] * Basic Metabolic Panel (02/24/2019 12:46 AM AVIONICS REPAIR TECHNICIAN) Only the most recent of 13 results within the time period is included. Sodium 137 136 - 145 meq/L [facility] Potassium 3.9 3.5 - 5.1 meq/L [facility] Chloride 105 98 - 107 meq/L [facility] CO2 23 22 - 29 meq/L [facility] BUN 10 7 - 21 mg/dL [facility] Creatinine 0.93 0.57 - 1.25 mg/dL [facility] Glucose 115 (H) 70 - 105 mg/dL [facility] Calcium 9.2 8.4 - 10.2 mg/dL [facility] EGFR 87Comment: ESTIMATED GFR IS mL/min/1.73 sq m [facility] NOT ACCURATE CREATININE [facility] CLEARANCE IN PREDICTING GLOMERULAR FILTRATION RATE. ESTIMATED GFR IS NOT APPLICABLE FOR DIALYSIS PATIENTS. Specimen Blood Performing Organization Address City/[facility] one Number [facility] [address], [place] [address] [facility] * XR chest 1 view portable / bedside (02/23/2019 11:47 PM AVIONICS REPAIR TECHNICIAN) Only the most recent of 4 results within the time period is included. Specimen Narrative Performed At FINAL REPORT [facility] RAD, CHEST, 1 VIEW, NON DEPT CLINICAL HISTORY: CHEST PAIN TECHNIQUE: Single view of the chest. COMPARISON: January 02, 2019, November 30, 2018 IMPRESSION: Perihilar increased interstitial markin gs are stable compared to old is available exam November 30, 2018. No new lung consolidation, pneumothorax or significant pleural eff usion. Postoperative changes are present. No pneumothorax. The cardi omediastinal silhouette is magnified by technique but stable in si ze. The osseous structures appear intact. Signed: Jez Aguilar MD Report Verified Date/Time: 0 00:02:07 Procedure Note Interface, External Ris In - 02/24/2019 12:04 AM AVIONICS REPAIR TECHNICIAN FINAL REPORT RAD, CHEST, 1 VIEW, NON DEPT CLINICAL HISTORY: CHEST PAIN TECHNIQUE: Single view of the chest. COMPARISON: January 02, 2019, November 30, 2018 IMPRESSION: Perihilar increased interstitial markings are stable compared to old is available exam November 30, 2018. No new lung consolidation, pneumothorax or significant pleural effusion. Postoperative changes are present. No pneumothorax. The cardiomediastinal silhouette is magnified by technique but stable in size. The osseous structures appear intact. Signed: Jez Aguilar MD Report Verified Date/Time: 02/24/2019 00:02:07 Performing Organization Address City/State/Zipcode Ph one Number [facility] * ECG 12 lead (02/23/2019 10:45 PM AVIONICS REPAIR TECHNICIAN) Only the most recent of 7 results within the time period is included. Specimen Narrative Performed At Ventricular Rate 90 BPM GE MUSE Atrial Rate 90 BPM P-R Interval 164 ms QRS Duration 92 ms Q-T Interval 402 ms QTC Calculation(Bazett) 491 ms P [place] 57 degrees R [place] 13 degrees T [place] 45 degrees Normal sinus rhythm Prolonged QT Abnormal ECG When compared with ECG of 03-JAN-2019 0 6:58, No significant change was found Confirmed by MD NAHEED, ROSE ([id number] ) on 02/24/2019 7:00:21 AM Procedure Note Interface, External Ris In - 02/24/2019 7:00 AM AVIONICS REPAIR TECHNICIAN Ventricular Rate 90 BPM Atrial Rate 90 BPM P-R Interval 164 ms QRS Duration 92 ms Q-T Interval 402 ms QTC Calculation(Bazett) 491 ms P [place] 57 degrees R [place] 13 degrees T [place] 45 degrees Normal sinus rhythm Prolonged QT Abnormal ECG When compared with ECG of 03-JAN-2019 06:58, No significant change was found Confirmed by MD NAHEED, ROSE ([id number]) on 02/24/2019 7:00:21 AM Performing Organization Address [facility] one Number GE MUSE * VASCULAR DIAGRAM -SCAN (01/14/2019 3:50 PM AVIONICS REPAIR TECHNICIAN) Narrative Performed At This result has an attachment that is n ot available. * RHYTHM STRIP - SCAN (01/07/2019 11:40 AM AVIONICS REPAIR TECHNICIAN) Only the most recent of 5 results within the time period is included. Narrative Performed At This result has an attachment that is n ot available. * EKG-SCANNED (01/07/2019 11:40 AM AVIONICS REPAIR TECHNICIAN) Only the most recent of 5 results within the time period is included. Narrative Performed At This result has an attachment that is n ot available. * CARDIAC CATH REPORT - SCAN (01/07/2019 11:40 AM AVIONICS REPAIR TECHNICIAN) Narrative Performed At This result has an attachment that is n ot available. * POC-Glucose meter (01/06/2019 12:06 PM AVIONICS REPAIR TECHNICIAN) Only the most recent of 34 results within the time period is included. POC-Glucose Meter 257 (H)Comment: : TESTED AT 70 - 110 mg/dL [facility] [address] [place] [id number]: Earth Sciences Professor/Consulting Marine Engineer ID = [id number] for Queen Cardona Specimen Blood Performing Organization Address [facility] one Number [facility] [address], [place] [address] [facility] * aPTT (01/05/2019 11:52 AM AVIONICS REPAIR TECHNICIAN) Only the most recent of 8 results within the time period is included. PTT 48.9 (H) 22.5 - 36.0 seconds [facility] Specimen Blood Performing Organization Address [facility] one Number [facility] [address], [place] [address] [facility] * Calcium, Ionized (01/05/2019 1:26 AM AVIONICS REPAIR TECHNICIAN) Only the most recent of 2 results within the time period is included. Calcium, Ion 1.10 (L) 1.12 - 1.27 mmol/L [facility] pH, Blood 7.43 [facility] Specimen Blood Performing Organization Address [facility] Ph one Number [address] [facility] * Phosphorus (01/05/2019 1:26 AM AVIONICS REPAIR TECHNICIAN) Only the most recent of 4 results within the time period is included. Phosphorus 4.5 2.3 - 4.7 mg/dL [facility] Specimen Blood Performing Organization Address [facility] Ph one Number [place] [address] [facility] * Magnesium (01/05/2019 1:26 AM AVIONICS REPAIR TECHNICIAN) Only the most recent of 8 results within the time period is included. Magnesium 2.0 1.6 - 2.6 mg/dL [facility] Specimen Blood Performing Organization Address [facility] one Number [address] [facility] * CBC (hemogram only) (01/03/2019 6:29 AM AVIONICS REPAIR TECHNICIAN) WBC 8.4 3.5 - 10.5 K/L [facility] RBC 4.62 (L) 4.63 - 6.08 M/L [facility] Hemoglobin 13.7 13.7 - 17.5 GM/DL [facility] Hematocrit 40.9 40.1 - 51.0 % [facility] MCV 88.5 79.0 - 92.2 fL [facility] MCH 29.7 25.7 - 32.2 pg [facility] MCHC 33.5 32.3 - 36.5 GM/DL [facility] RDW 14.0 11.6 - 14.4 % [facility] Platelets 225 150 - 450 K/CU MM [facility] MPV 10.3 9.4 - 12.4 fL [facility] nRBC 0 0 - 0 /100 WBC [facility] Specimen Blood Performing Organization Address [facility] one [place] [address] [place] [address] * B-type Natriuretic Factor (BNP) (01/02/2019 9:48 PM AVIONICS REPAIR TECHNICIAN) Only the most recent of 4 results within the time period is included. BNP 10 0 - 100 pg/mL [facility] Specimen Blood Performing Organization Address [facility] one Number [place] [address] [place] [address] * TRANSFUSION SERVICE REPORT - SCAN (12/30/2018 5:50 PM AVIONICS REPAIR TECHNICIAN) Narrative Performed At This result has an attachment that is n ot available. * ABORH, manual (12/29/2018 4:39 AM AVIONICS REPAIR TECHNICIAN) ABO Grouping O [facility] Rh Factor NEG [facility] Specimen Blood Performing Organization Address [facility] one Number [place] [address] [phone] [facility] * Type and screen, automated ([facility]) (12/29/2018 4:12 AM AVIONICS REPAIR TECHNICIAN) ABO/RH AUTOMATED (BEAKER) O NEGATIVE [facility] Ab Scrn NEGATIVE [facility] Specimen Blood Performing Organization Address City/State/Zipcode Ph one Number [facility] [address] [place] [address] [phone] [facility] * CO myocardial perfusion PET (rest and stress) (12/27/2018 1:35 PM AVIONICS REPAIR TECHNICIAN) Specimen Narrative Performed At FINAL REPORT [employer] PROCEDURE: MYOCARDIAL PERFUSION PET CATHY GING (Rest/Stress) CPT CODE: 78419 INDICATION: Chest pain, ACS suspected CARDIOVASCULAR PROFILE: Symptoms: Chest pain CAD History: Known CAD, CABG, atrial fi brillation, CHF, COPD Risk Factors: Diabetes mellitus, hypert ension, obesity, smoker, CVA BMI: 39.8 Medications: Aspirin, Lipitor, Plavix, Lasix, Imdur, metoprolol, nitroglycerin, Xarelto STRESS PROTOCOL: Pharmacologic stress was achieved with a 10-second intravenous infusion of regadenoson 0.4 mg. IMAGING PROTOCOL: Limited low-dose CT imaging was perform ed for attenuation correction. 40.1 mCi of Rb-82 chloride was injected intravenously at rest, and PET images were obtained. Then, 3.0 mCi of Rb-82 chloride was injected intravenously at peak stress, and PET images were obtained. The images are very hazy noisy and ther efore suboptimal secondary to the patient's body habitus REST FINDINGS: HR: 83 /min BP: 115/59 mmHg Prelim. EKG: Normal sinus rhythm. Perfusion: Normal. Wall Motion: Normal (LVEF rim and 70%). LV Volume: Normal. RV Volume: Normal. STRESS FINDINGS: HR: 96 /min (55% of MPHR) BP: 122/43 mmHg Prelim. EKG: No ischemic changes. Symptoms: None (treatment not required) . Perfusion: There is apparent decrease i n the anterior inferior wall. Wall Motion: Normal (LVEF greater than 70%). LV Volume: Unchanged from rest. IMPRESSION: 1. Suboptimal study. 2. Abnormal myocardial perfusion. There is an apparently reversible anterior inferior wall finding. 3.Normal global LV function, which does not deteriorate with stress. 4. Normal extracardiac tracer distribut ion. 5. No prior seen. Signed: Dejan Nevarez MD Report Verified Date/Time: 9 15:41:01 Procedure Note Interface, External Ris In - 12/27/2018 3:43 PM AVIONICS REPAIR TECHNICIAN FINAL REPORT PROCEDURE: MYOCARDIAL PERFUSION PET IMAGING (Rest/Stress) CPT CODE: 00221 INDICATION: Chest pain, ACS suspected CARDIOVASCULAR PROFILE: Symptoms: Chest pain CAD History: Known CAD, CABG, atrial fibrillation, CHF, COPD Risk Factors: Diabetes mellitus, hypertension, obesity, smoker, CVA BMI: 39.8 Medications: Aspirin, Lipitor, Plavix, Lasix, Imdur, metoprolol, nitroglycerin, Xarelto STRESS PROTOCOL: Pharmacologic stress was achieved with a 10-second intravenous infusion of regadenoson 0.4 mg. IMAGING PROTOCOL: Limited low-dose CT imaging was performed for attenuation correction. 40.1 mCi of Rb-82 chloride was injected intravenously at rest, and PET images were obtained. Then, 3.0 mCi of Rb-82 chloride was injected intravenously at peak stress, and PET images were obtained. The images are very hazy noisy and therefore suboptimal secondary to the patient's body habitus REST FINDINGS: HR: 83 /min BP: 115/59 mmHg Prelim. EKG: Normal sinus rhythm. Perfusion: Normal. Wall Motion: Normal (LVEF rim and 70%). LV Volume: Normal. RV Volume: Normal. STRESS FINDINGS: HR: 96 /min (55% of MPHR) BP: 122/43 mmHg Prelim. EKG: No ischemic changes. Symptoms: None (treatment not required). Perfusion: There is apparent decrease in the anterior inferior wall. Wall Motion: Normal (LVEF greater than 70%). LV Volume: Unchanged from rest. IMPRESSION: 1. Suboptimal study. 2. Abnormal myocardial perfusion. There is an apparently reversible anterior inferior wall finding. 3.Normal global LV function, which does not deteriorate with stress. 4. Normal extracardiac tracer distributi on. 5. No prior seen. Signed: Dejan Nevarez MD Report Verified Date/Time: 12/27/2018 15:41:01 Performing Organization Address City/State/Zipcode Ph one Number [facility] * Treadmill tolerance(Non-Nuclear Treadmill) (12/27/2018 1:30 PM AVIONICS REPAIR TECHNICIAN) Specimen Narrative Performed At Protocol Name [employer] MUSE Time In Exercise Phase 00:01:00 Max. Systolic BP 122 mmHg Max Diastolic BP 43 mmHg Max Heart Rate 96 BPM Max Predicted Heart Rate 172 BPM Reason For Termination Predetermined en d point Reason for Test Chest Pain Target HR Formula (220 - Age)*100% Arrhythmias none Resting ECG Normal sinus rhythm ST Changes No Significant Changes Overall Impression Indeterminate due to pharmacological stress Chest Pain CHEST TIGHTNESS HR Response To Exercise BP Response To Exercise ASA LIPITOR plavix LASIX Imdur metoprolol NITRO Xarelto Confirmed by fellow Ace Ojeda ([id number]) on 12/29/2018 10:07:26 AM Confirmed by MD BRAVO JORGE ([id number]) o n 01/19/2019 11:31:16 AM Procedure Note Interface, External Ris In - 01/19/2019 11:31 AM AVIONICS REPAIR TECHNICIAN Protocol Name Regadenoson Time In Exercise Phase 00:01:00 Max. Systolic BP 122 mmHg Max Diastolic BP 43 mmHg Max Heart Rate 96 BPM Max Predicted Heart Rate 172 BPM Reason For Termination Predetermined end point Reason for Test Chest Pain Target HR Formula (220 - Age)*100% Arrhythmias none Resting ECG Normal sinus rhythm ST Changes No Significant Changes Overall Impression Indeterminate due to pharmacological stress Chest Pain CHEST TIGHTNESS HR Response To Exercise BP Response To Exercise ASA LIPITOR plavix LASIX Imdur metoprolol NITRO Xarelto Confirmed by fellow Ace Ojeda ([id number]) on 12/29/2018 10:07:26 AM Confirmed by MD BRAVO JORGE ([id number]) on 01/19/2019 11:31:16 AM Performing Organization Address City/State/Zipcode Ph one Number GE MUSE * Rapid drug screen, urine (12/26/2018 6:57 AM AVIONICS REPAIR TECHNICIAN) Only the most recent of 2 results within the time period is included. Barbiturate Screen Negative Negative [facility] Benzodiazepine Screen Negative Negative [facility] Cocaine (Metab.) Screen Negative Negative [facility] Methadone Screen Negative Negative [facility] Opiate Screen Positive (A) Negative [facility] Cannabinoid Screen Negative Negative [facility] Amph/Methamph Screen Negative Negative [facility] Phencyclidine Screen Negative Negative [facility] Specimen Urine Narrative Performed At [facility] Cocaine 300 ng/mL [facility] Dpirelilahe73 n g/mL Domjvrhqwelrha046 ng/mL Barbiturate 200 ng/ mL Cvicpstrqenuj31 ng/ mL Opiate3 00 ng/mL Methadone 300 n g/mL Amphetamine/ 1000 ng/mL Methamphetamine This assay provides an unconfirmed qual itative test result for the clinical management of patients in emergency sit uations. Chain of custody not maintained. Some fjrc-zzf-rfkcrul medications, as w ell as adulterants, may cause inaccurate results. Clinical correlation should be applied. A more comprehensive drug screen or confirmation of a detected dr beatriz may be performed upon request. Performing Organization Address [facility] Ph one Number [place] [address] [phone] [place] [address] * Hepatic function panel (12/26/2018 5:54 AM AVIONICS REPAIR TECHNICIAN) Protein, Total 6.2Comment: Specimen slightly 6.0 - 8.3 gm/dL [facility] Albumin 3.6Comment: Specimen slightly 3.5 - 5.0 g/dL [facility] Total Bilirubin 0.3Comment: Specimen slightly 0.2 - 1.2 mg/dL [facility] Bilirubin, Direct 0.1Comment: Specimen slightly 0.1 - 0.5 mg/ dL [facility] Alkaline Phosphatase 84 40 - 150 U/L [facility] AST 22Comment: Specimen slightly 5 - 34 U/L C [facility] ALT 26Comment: Specimen slightly 6 - 55 U/L C [facility] Specimen Blood Performing Organization Address [facility] Ph one Number [place] [address] [facility] * D-dimer (12/25/2018 7:52 PM AVIONICS REPAIR TECHNICIAN) D-Dimer, Quant 0.32 <0.50 MG/L FEU [facility] Specimen Blood Narrative Performed At Intended Use: The D-Dimer Assay can be used to aid in the diagnosis of Deep Vein [facility] Thrombosis (DVT) and Pulmonary Embolism Disease (PED) . [facility] In patients with low pre-test probabili ty, various studies concerning STA Liatest D-dimer test have reported that with a cutoff value of 0.50 MG/L FEU, the Negative Predictive Value (NPV) reg arding the exclusion of thrombosis is within 95-100% range. Performing Organization Address [facility] Ph one Number [place] [address] [phone] * Lipid panel (12/08/2018 4:48 AM CDT) Only the most recent of 2 results within the time period is included. Triglycerides 329 mg/dL [facility] Cholesterol 168 mg/dL [facility] HDL 24 mg/dL [facility] LDL Calculated 78 mg/dL [facility] Specimen Blood Narrative Performed At Triglyceride Reference Range: [facility] Low Risk <150 [facility] [id number] High Risk 200-499 Very High Risk>=500 Cholesterol Reference Range: Low Risk <200 [id number] High Risk>240 HDL Cholesterol Reference Range: Low Risk >=60 High Risk <40 LDL Cholesterol Reference Range: Optimal<100 Near [id number] Very High >=190 Performing Organization Address [facility] Ph one Number [place] [phone] [place] [address] * PT/aPTT (12/07/2018 8:01 PM CDT) Only the most recent of 2 results within the time period is included. Protime 13.1 11.9 - 14.2 seconds [facility] INR 1.0 <=5.9 [facility] PTT 28.6 22.5 - 36.0 seconds [facility] Specimen Blood Narrative Performed At Effective 07/16/2018: PT Reference Range Change [facility] New: 11.9-14.2Previous: 11.7-14.7 [facility] CE NTER RECOMMENDED COUMADIN/WARFARIN INR THERA PY RANGES STANDARD DOSE: 2.0-3.0Includes: PRO PHYLAXIS for venous thrombosis, systemic embolization; TREATMENT for venous thro mbosis and/or pulmonary embolus. HIGH RISK: Target INR is 2.5-3.5 for pa tients wiht mechanical heart valves. Performing Organization Address [facility] one Number [address] [facility] * TSH/Free T4 If Indicated (12/01/2018 4:19 AM CDT) TSH 0.60 0.35 - 4.94 uIU/mL [facility] Specimen Blood Performing Organization Address [facility] one Number [address] [facility] * Hemoglobin A1c (12/01/2018 4:19 AM CDT) Hemoglobin A1C 7.6 (H) 4.3 - 6.1 % [facility] Specimen Blood Performing Organization Address [facility] Ph one Number [address] [facility] * Sodium, random urine (12/01/2018 1:14 AM CDT) Sodium Urine 71 meq/L [facility] Specimen Urine Narrative Performed At Reference Range: No Normals [facility] Performing Organization Address [facility] Ph one Number [address] [facility] * Creatinine, random urine (12/01/2018 1:14 AM CDT) Creatinine, Ur 49.3 mg/dL [facility] Specimen Urine Narrative Performed At Reference Range: No Normals [facility] Performing Organization Address City/[facility]/Zipcode Ph one Number [facility] [address] [place], [place] [address] [facility] * US renal complete (12/01/2018 1:02 AM CDT) Specimen Narrative Performed At FINAL REPORT [facility] TECHNIQUE: Grayscale ultrasound of the kidneys and bladder. INDICATION: JAQUELINE. COMPARISON: None. FINDINGS: RIGHT KIDNEY: The right kidney measures 13.3 x 6.6 x 7.4 cm. Cortical thickness measures 1.2 cm. No solid mas s lesions. No hydronephrosis. Renal artery and vein are patent. LEFT KIDNEY: No left kidney was seen. BLADDER: Unremarkable. IMPRESSION: Unremarkable ultrasound of the right ki dney. No left kidney was seen. Signed: Dexter St MD Report Verified Date/Time: 9 01:40:35 Procedure Note Interface, External Ris In - 12/01/2018 4:19 AM CDT FINAL REPORT TECHNIQUE: Grayscale ultrasound of the kidneys and bladder. INDICATION: JAQUELINE. COMPARISON: None. FINDINGS: RIGHT KIDNEY: The right kidney measures 13.3 x 6.6 x 7.4 cm. Cortical thickness measures 1.2 cm. No solid mass lesions. No hydronephrosis. Renal artery and vein are patent. LEFT KIDNEY: No left kidney was seen. BLADDER: Unremarkable. IMPRESSION: Unremarkable ultrasound of the right kidney. No left kidney was seen. Signed: Dexter St MD Report Verified Date/Time: 12/01/2018 01:40:35 Performing Organization Address City/State/Zipcode Ph one Number [facility] * XR spine lumbar complete 4 views min (11/30/2018 11:10 PM CDT) Specimen Narrative Performed At FINAL REPORT [facility] CLINICAL HISTORY: CHEST PAIN FALL TECHNIQUE: Five views of the lumbar spi ne. COMPARISON: None IMPRESSION: The vertebral body heights are maintained without fracture or dislocation.Rotary Dextrocu rvature of the lumbar spine. IVC filter to the left of the lumbar sp ine. Multilevel degenerative changes with disc space narrowing, oste ophytosis worse at L4-5. Vertebral body heights are maintained. Limited evaluation of the L5-S1 disc space, which may be related to transitional anatomy versus anterolisthesis. Moderate stool burden throughout the large bowel. Signed: Jacklyn Huang MD Report Verified Date/Time: 9 23:30:17 Procedure Note Interface, External Ris In - 11/30/2018 11:32 PM CDT FINAL REPORT CLINICAL HISTORY: CHEST PAIN FALL TECHNIQUE: Five views of the lumbar spine. COMPARISON: None IMPRESSION: The vertebral body heights are maintained without fracture or dislocation.Rotary Dextrocurvature of the lumbar spine. IVC filter to the left of the lumbar spine. Multilevel degenerative changes with disc space narrowing, osteophytosis worse at L4-5. Vertebral body heights are maintained. Limited evaluation of the L5-S1 disc space, which may be related to transitional anatomy versus anterolisthesis. Moderate stool burden throughout the large bowel. Signed: Jacklyn Huang MD Report Verified Date/Time: 11/30/2018 23:30:17 Performing Organization Address City/State/Zipcode Ph one Number [facility] * XR wrist complete 3 views min right (11/30/2018 11:09 PM CDT) Specimen Narrative Performed At FINAL REPORT [facility] CLINICAL HISTORY: wrist pain TECHNIQUE: 3 views of the right wrist COMPARISON: None IMPRESSION: The bones of the wrist are intact witho ut evidence of fracture or dislocation. Signed: Jacklyn Hunag MD Report Verified Date/Time: 9 23:27:53 Procedure Note Interface, External Ris In - 11/30/2018 11:30 PM CDT FINAL REPORT CLINICAL HISTORY: wrist pain TECHNIQUE: 3 views of the right wrist COMPARISON: None IMPRESSION: The bones of the wrist are intact without evidence of fracture or dislocation. Signed: Jacklyn Huang MD Report Verified Date/Time: 11/30/2018 23:27:53 Performing Organization Address [facility] one Number [facility] * XR knee complete 4 views left (11/30/2018 11:09 PM CDT) Specimen Narrative Performed At FINAL REPORT [facility] CLINICAL HISTORY: knee pain TECHNIQUE: 4 views of the left knee COMPARISON: None IMPRESSION: The bones of the knee are intact withou t evidence of fracture or dislocation. Ossific fragment adjacent to the medial tibial plateau likely sequela of prior trauma. Small s uprapatellar joint effusion. Mild soft tissue prominence about the k nee. No radiopaque foreign body. Patellar insertion enthesophyte. Signed: Jacklyn Huang MD Report Verified Date/Time: 9 23:40:45 Procedure Note Interface, External Ris In - 11/30/2018 11:42 PM CDT FINAL REPORT CLINICAL HISTORY: knee pain TECHNIQUE: 4 views of the left knee COMPARISON: None IMPRESSION: The bones of the knee are intact without evidence of fracture or dislocation. Ossific fragment adjacent to the medial tibial plateau likely sequela of prior trauma. Small suprapatellar joint effusion. Mild soft tissue prominence about the knee. No radiopaque foreign body. Patellar insertion enthesophyte. Signed: Jacklyn Huang MD Report Verified Date/Time: 11/30/2018 23:40:45 Performing Organization Address [facility] Ph one Number [facility] * XR hand 3 views right (11/30/2018 11:09 PM CDT) Specimen Narrative Performed At FINAL REPORT [facility] CLINICAL HISTORY: hand pain TECHNIQUE: 3 views of the right hand COMPARISON: None IMPRESSION: The bones of the hand are intact withou t evidence of fracture or dislocation. Punctate radiodensity jaswinder cent to the distal tuft of the first digit, correlate clinically to ex clude radiopaque foreign body. Signed: Jacklyn Huang MD Report Verified Date/Time: 9 23:26:46 Procedure Note Interface, External Ris In - 11/30/2018 11:29 PM CDT FINAL REPORT CLINICAL HISTORY: hand pain TECHNIQUE: 3 views of the right hand COMPARISON: None IMPRESSION: The bones of the hand are intact without evidence of fracture or dislocation. Punctate radiodensity adjacent to the distal tuft of the first digit, correlate clinically to exclude radiopaque foreign body. Signed: Jacklyn Huang MD Report Verified Date/Time: 11/30/2018 23:26:46 Performing Organization Address City/State/Zipcode Ph one Number [facility] * XR hand 3 views left (11/30/2018 11:08 PM CDT) Specimen Narrative Performed At FINAL REPORT [facility] CLINICAL HISTORY: hand pain TECHNIQUE: 3 views of the left hand COMPARISON: None IMPRESSION: Punctate ossific density adjacent to th e ulnar styloid, likely sequela of prior trauma however correla te for point tenderness as this remains age indeterminate. Otherwi se no acute fracture or malalignment. Scattered degenerative ch anges, most notably in the IP joints. No radiopaque foreign body. Signed: Jacklyn Huang MD Report Verified Date/Time: 9 23:39:40 Procedure Note Interface, External Ris In - 11/30/2018 11:41 PM CDT FINAL REPORT CLINICAL HISTORY: hand pain TECHNIQUE: 3 views of the left hand COMPARISON: None IMPRESSION: Punctate ossific density adjacent to the ulnar styloid, likely sequela of prior trauma however correlate for point tenderness as this remains age indeterminate. Otherwise no acute fracture or malalignment. Scattered degenerative changes, most notably in the IP joints. No radiopaque foreign body. Signed: Jacklyn Huang MD Report Verified Date/Time: 11/30/2018 23:39:40 Performing Organization Address City/[facility] one Number [facility] * XR chest PA or AP 1 view in dept (11/30/2018 11:05 PM CDT) Specimen Narrative Performed At FINAL REPORT [facility] Chest, 1 view. History: Chest pain Comparison: None available. IMPRESSION: Cardiac mediastinal silhoue tte is exaggerated by technique.Posterior changes of a me wojciech sternotomy with fractured inferior most sternotomy wire. Prominen t pulmonary vasculature consistent with pulmonary vascular castillo estion with mild interstitial pulmonary edema. No lobar consolidation or pleural effusion. No pneumothorax. Osseous structures are gr ossly unremarkable.Postsurgical changes of an anterior instrumented cervical spinal fusion incompletely lisa luated. Signed: Jacklyn Huang MD Report Verified Date/Time: 23:38:17 Procedure Note Interface, External Ris In - 11/30/2018 11:40 PM CDT FINAL REPORT Chest, 1 view. History: Chest pain Comparison: None available. IMPRESSION: Cardiac mediastinal silhouette is exaggerated by technique. Posterior changes of a median sternotomy with fractured inferior most sternotomy wire. Prominent pulmonary vasculature consistent with pulmonary vascular congestion with mild interstitial pulmonary edema. No lobar consolidation or pleural effusion. No pneumothorax. Osseous structures are grossly unremarkable.Postsurgical changes of an anterior instrumented cervical spinal fusion incompletely evaluated. Signed: Jacklyn Huang MD Report Verified Date/Time: 11/30/2018 23:38:17 Performing Organization Address City/State/[facility] Ph one Number [facility] after 07/26/2018 Insurance Payer Benefit Subscriber ID Type Phone Address Plan / Group MEDICAID - MEDICAID MGD [facility] xxxxxxxxx Med[employer] id CARE COMM STAR Contracted PLAN Advance Directives For more information, please contact: [address] [address] Date Inactivated Comments Code Status Date Activated 01/06/2019 3:41 PM Full Code 01/03/2019 1:27 AM This code status was determined by: Patient 12/30/2018 2:43 PM Full Code 12/26/2018 2:44 AM This code status was determined by: Patient 12/10/2018 11:44 PM Full Code 12/07/2018 11:50 PM This code status was determined by: Patient 12/01/2018 11:10 PM Full Code 12/01/2018 12:26 AM This code status was determined by: Patient
--- OUTSIDE RECORDS SUMMARY | 2019-07-27 19:14 | XMS REPORT | Clinical Summary ---
Author Author [facility] Address Unknown Phone Unavailable Care Team Providers Care Director [employer] Name Role Phone Asked, No Pcp PCP Unavailable Allergies Comments Active Allergy Reactions Severity Noted Date Ampicillin Rash Low 01/21/2016 Gabapentin 05/02/2018 Ears ring Morphine Other (See 12/22/2017 Comments) Pt notified he cannot take norco as its one of his previous allergy . Ok to take tylenol with codeine no reaction Hydrocodone-Acetaminophen Rash Low 05/2017 Paper tape Other 10/23/2015 Metoclopramide Hcl Rash Low 01/22/2016 Ketorolac 05/02/2018 Tramadol 12/22/2017 Ondansetron Hcl Rash Low 10/23/2015 Medications End Date Status Medication Sig Dispensed Refills Start Date Active furosemide (LASIX) 40 mg Take 40 mg by 0 tablet mouth 2 (two) times a day. Active atorvastatin (LIPITOR) 40 Take 40 mg by 0 / 7/201 MG tablet mouth 6 nightly. Active pantoprazole [...] a day as needed for seizures. 05/04/2019 metFORMIN (GLUCOPHAGE) Take 1 tablet 60 tablet 11 0 500 mg tablet (500 mg 9 total) by mouth 2 (two) times a day with meals. Active Problems Problem Noted Date Chest pain, rule out acute myocardial infarction CHF (congestive heart failure) 03/06/2018 Bilateral swelling of feet 01/22/2016 Precordial pain 01/21/2016 Chest pain 01/21/2016 Encounters Care Team Description Date Type Specialty Pepito Slade MD Hyperglycemia (Primary Dx); Other chest pain; Left leg swelling; Right leg swelling; Abdominal fullness 09/24/2018 Emergency Emergency Medicine - 09/25/2018 after 07/26/2018 Family History Medical History Relation [...] - Inhaled Oxygen Concentration - - Weight 188 cm (6' 2") 09/24/2018 7:32 PM CDT Height - - Body Mass Index Plan of Treatment Health Maintenance Due Date Last Done Comments INFLUENZA VACCINE 09/19/2019 Implants Device Identifier Shelf Expiration Date Model / Serial / L ot Implanted Type Area Manufactur er 08/17/2018 [id number] / / [id number] Device Vasclr Clsr Vasoactive Cardiovasc Right: G roin Intstnl Peptd 6fr Angio-Seal - ular [id number] Implants Implanted: Qty: 1 on 12/24/2017 by Farzad Santos MD at [facility] . Description:plate in the neck Procedures Comments Procedure Name Priority Date/Time Associated Diag nosis ESTIMATED GFR STAT 09/24/2018 8:52 PM CDT [...] PRELIMINARY Routine 09/24/2018 INTERPRETATION 7:32 PM CDT after 07/26/2018 Results * Estimated GFR (09/24/2018 8:52 PM CDT) [facility] Estimated GFR 71 mL/min/1.73 m2 [facility]URRAY Comment: ANTONIO GLOVER [facility] Interpretation G1 >=90 Normal or high G2 60-89 Mildly decreased G3a 45-59 Mildly to moderately decreased G3b 30-44 Moderately to severely decreased G4 15-29 Severely decreased G5 <15 Kidney failure The eGFR was calculated using the Chronic Kidney Disease Epidemiology Collaboration (CKD-EPI) equation. Interpretation is based on recommendations of the National Kidney Foundation-Kidney Disease Outcomes Quality Initiative (NKF-KDOQI) published in 2014. Specimen Plasma specimen Performing Organization Address [facility] Ph one Number [facility] DEPARTMENT [address] [place] [address] PATHOLOGY AND [facility] [address] MEDICINE [place] ANTONIO GLOVER [address] [place] [address] * Troponin (09/24/2018 8:52 PM CDT) [facility] Troponin <0.006 0.000 - 0.040 ng/mL M[facility]RAY Comment: ANTONIO GLOVER [facility] changed methodology effective: 06/24/2018 at 10:00 am The new method has a 99th percentile cutoff of 0.040 ng/mL Specimen Plasma specimen Performing Organization Address [facility] Ph one Number [facility] DEPARTMENT [address] [place] [address] PATHOLOGY AND [facility] [address] MEDICINE [place] ANTONIO GLOVER [address] [place] [address] * Partial thromboplastin time, activated (09/24/2018 8:52 PM CDT) [facility] PTT 28.8 23.0 - 36.0 sec MURRAY Comment: ANTONIO GLOVER PTT therapeutic range for [facility] unfractionated heparin is 61.0-112.0 seconds which corresponds to Anti-Xa 0.3-0.7 U/ml. Specimen Blood Performing Organization Address City/[facility] Ph one Number [facility] DEPARTMENT OF [address] [place] [address] [address] [place], [place] [address] PATHOLOGY AND GENOMIC MEDICINE [address] * Prothrombin time with INR (09/24/2018 8:52 PM CDT) Pathologist [facility] Prothrombin 12.5 11.5 - 14.5 sec [facility] INR 1.0 MURRAY Comment: [facility] Normalized [facility] Ratio (INR) is a therapeutic monitoring tool for patients who are stable on oral anticoagulant therapy. An INR of 2.0-3.0 is suggested for deep vein thrombosis/pulmonary embolism. Specimen Blood Performing Organization Address [facility] Ph one Number [facility] DEPARTMENT OF [facility] [place] [address] PATHOLOGY AND GENOMIC MEDICINE [address] John [address] * CBC with platelet and differential (09/24/2018 8:52 PM CDT) Pathologist [facility] WBC 7.66 4.50 - 11.00 k/uL [facility] RBC 4.07 (L) 4.40 - 6.00 m/uL [facility] HGB 12.4 (L) 14.0 - 18.0 g/dL [facility] HCT 37.7 (L) 41.0 - 51.0 % [facility] MCV 92.6 82.0 - 100.0 fL [facility] MCH 30.5 27.0 - 34.0 pg [facility] MCHC 32.9 31.0 - 37.0 g/dL [facility] RDW - SD 46.9 37.0 - 55.0 fL [facility] MPV 9.8 8.8 - 13.2 fL [facility] Platelet count 203 150 - 400 k/uL [facility] Nucleated RBC 0.30 /100 WBC [facility] Neutrophils 61.5 39.0 - 69.0 % [facility] Lymphocytes 26.8 25.0 - 45.0 % [facility] Monocytes 6.7 0.0 - 10.0 % [facility] Eosinophils 2.7 0.0 - 5.0 % [facility] Basophils 0.5 0.0 - 1.0 % [facility] Specimen Blood Performing Organization Address City/[facility] Ph one Number [facility] DEPARTMENT [place] [id number] [place] [address] [place], [place] [address] PATHOLOGY AND GENOMIC MEDICINE [facility] [id number] [place] [address] * B natriuretic peptide (09/24/2018 8:52 PM CDT) BNP 25 0 - 100 pg/mL [facility] Specimen Blood Performing Organization Address City/[facility] Ph one Number [facility] [place] [id number] [place] [address] [place], [place] [address] PATHOLOGY AND GENOMIC MEDICINE [facility] [address] [place] [address] * Comprehensive metabolic panel (09/24/2018 8:52 PM CDT) Sodium 138 135 - 148 mEq/L [facility] Potassium 4.0 3.5 - 5.0 mEq/L [facility] Chloride 98 98 - 112 mEq/L [facility] CO2 29 24 - 31 mEq/L [facility] Anion gap 11@ANIO 7 - 15 mEq/L [facility] BUN 18 6 - 20 mg/dL [facility] Creatinine 1.20 0.70 - 1.20 mg/dL [facility] Glucose 268 (H) 65 - 99 mg/dL [facility] Calcium 9.2 8.3 - 10.2 mg/dL [facility] Protein 6.3 6.3 - 8.3 g/dL [facility] Comment: [facility] 4.6-7.0 g/dL 1 week 4.4-7.6 g/dL 7 months-1year 5.1-7.3 g/dL 1-2 years 5.6-7.5 g/dL >3 years 6.0-8.0 g/dL 18-150 6.3-8.3 g/dL Albumin 3.6 3.5 - 5.0 g/dL [facility] A/G ratio 1.3 0.7 - 3.8 [facility] Alkaline 121 40 - 129 U/L [facility] phosphatase [facility] AST 24 10 - 50 U/L [facility] ALT 21 5 - 50 U/L [facility] Total bilirubin 0.3 0.0 - 1.2 mg/dL [facility] Specimen Plasma specimen Performing Organization Address [facility] one Number [facility] [place] [address] [place], [place] [address] PATHOLOGY AND GENOMIC MEDICINE [facility] [address] [address] [place] [phone] [facility] * XR Chest 1 Vw (09/24/2018 8:10 PM CDT) Specimen Narrative Performed At EXAMINATION: XR CHEST 1 VW HM [facility] CLINICAL HISTORY: Chest pain acute nonspecific low prob CAD COMPARISON: May 17, 2018 . IMPRESSION: 1. Heart size is normal. Median abraham otomy wires overlie the midline. 2. Interval left basilar atelectasis. 3. No pneumothorax. 4. Osseous structures are intact. [id number] Procedure Note Hm Interface, Radiology Results Incoming - 09/24/2018 8:24 PM CDT EXAMINATION: XR CHEST 1 VW CLINICAL HISTORY: Chest pain acute nonspecific low prob CAD COMPARISON: May 17, 2018 . IMPRESSION: 1. Heart size is normal. Median sternot adore wires overlie the midline. 2. Interval left basilar atelectasis. 3. No pneumothorax. 4. Osseous structures are intact. [id number] Performing Organization Address [facility] one Number [facility] [address] [place] [address] * POC glucose (09/24/2018 7:35 PM CDT) POC glucose 299 (H) 65 - 99 mg/dL [facility] Comment: [facility] Meter ID: [id number] [facility] Associate Juvenile Court Judge: Shun Garcia ([place]) Specimen Performing Organization Address City/[facility] Ph one Number [facility] [place] [address] [place] [address] PATHOLOGY AND GENOMIC MEDICINE [facility] [address] [address] [place] [phone] [facility] * ECG 12 lead (09/24/2018 7:32 PM CDT) Ventricular 95 [facility] rate Atrial rate 95 [facility] [place] interval 152 [facility] QRSD interval 92 [facility] QT interval 396 [facility] QTC interval 497 [facility] P axis 1 55 [facility] QRS axis 1 30 [facility] T wave axis 61 [facility] EKG impression Normal sinus rhythm-Prolonged [facility] MUS E QT Lateral infarct-Abnormal ECG-In automated comparison with ECG of 17-MAY-2018 16:37,-No significant change was found- Specimen Narrative Performed At This result has an attachment that is n ot available. Performing Organization Address City/State/Zipcode Ph one Number [facility] MUSE [address] [place] [address] * ECG ED Preliminary Interpretation - Not an Order (09/24/2018 7:32 PM CDT) Narrative Performed At Pepito Slade MD 09/26/19 19 12:13 AM ECG ED Preliminary Interpretation - Not an Order Performed by: Pepito Slade M D Authorized by: Pepito Slade MD ECG reviewed by ED Physician in the abs ence of a permaculture designer: yes (2007) Interpretation: Interpretation: normal Rate: ECG rate: 95 ECG rate assessment: normal Rhythm: Rhythm: sinus rhythm Ectopy: Ectopy: none QRS: QRS axis: Normal QRS intervals: Normal Conduction: Conduction: normal ST segments: ST segments: Normal T waves: T waves: normal Other findings: Other findings: prolonged qTc interva l after 07/26/2018 Insurance Type Payer Benefit Subscriber ID Effective Phone Address Plan / Dates Group [facility] MEDICAID [facility] xxxxxxxxx 2015- COMM STAR+ Present [facility] Advance Directives For more information, please contact: [phone] 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 Explanation Type Date Recorded Advance Directives, 09/10/2015 12:22 AM Living Will and Medical Power of Senior Safety Management Consultant Advance Directives, 09/10/2015 6:44 PM Living Will and Medical Power of Senior Safety Management Consultant Advance Directives, 09/28/2015 11:18 PM Living Will and Medical Power of Senior Safety Management Consultant Advance Directives, 09/29/2015 5:04 PM Living Will and Medical Power of Senior Safety Management Consultant Advance Directives, 09/24/2018 7:54 PM Living Will and Medical Power of Senior Safety Management Consultant Date Inactivated Comments Code Status Date Activated [...]
--- OUTSIDE RECORDS SUMMARY | 2019-07-27 19:14 | XMS REPORT | Clinical Summary ---
Author Author [facility] Organization [facility] Address Unknown Phone Unavailable Care Team Providers Care Rn Stars Name Role Phone PCP Unavailable Allergies Comments [...] (RISPERDAL) 1 Take by 90 Tab 0 0 mg tabletIndications: mouth every 1 Psychiatric problem morning. 0.5mg in am 2.5mg in pm As previously instructed Active famotidine (PEPCID) 20 mg Take 1 Tab by 60 Tab 2 tabletIndications: Chest mouth 2 times 1 pain daily. Active lisinopril (PRINIVIL, Take 8 Tabs 30 Tab 0 06/18 ZESTRIL) 2.5 mg by mouth 1 tabletIndications: Chest daily. pain Active metoprolol tartrate Take 1 Tab by 60 Tab 0 06/18 (LOPRESSOR) 25 mg mouth 2 times 1 tabletIndications: Chest daily. pain Active rosuvastatin (CRESTOR) 10 Take 1 Tab by 30 Tab 0 05/17/201 mg tabletIndications: mouth at 1 Pulmonary embolus bedtime. Active Problems Problem Noted Date Physical deconditioning 04/25/2018 Impaired mobility and ADLs 04/25/2018 Impaired gait and mobility 04/25/2018 At risk for falls 04/25/2018 Psychiatric problem 07/04/2010 Chest pain 07/03/2010 Pulmonary embolus 07/03/2010 Social History Date Tobacco Use Types Packs/Day [...] Date Last Done Comments IMM Influenza Seasonal 11/19/2019Nov to April (>/= 19 yrs) Results Not on fileafter 07/26/2018 Insurance Type Payer Benefit Subscriber ID Effective Phone Address Plan / Dates Group [facility] xxxxxxxxx 2017- [phone] COMMUNITY Present [id number] [place] [address] Advance Directives Date Inactivated Comments Code Status Date Activated 07/04/2010 9:05 PM Full Code 07/03/2010 10:11 AM
--- OUTSIDE RECORDS SUMMARY | 2019-07-27 19:15 | XMS REPORT | Summary of Care ---
Author Author [facility] Organization [facility] Address Unknown Phone Unavailable Encounter HQ Uyen(FIN) [id number] Date(s): 07/12/19 - 07/12/19 [facility] [address] [place] [address]- Encounter Diagnosis Nausea and/or vomiting (Discharge Diagnosis) - 07/12/19 Fever (Discharge Diagnosis) - 07/12/19 Discharge Disposition: Home or Self Care Attending Physician: Wesley Bunn MD Vital Signs 1 2 3 Most recent to oldest [Reference Range]: 99.9 DegF *HI* (07/12/19 4:55 AM) 101.4 DegF *HI* (07/12/19 12:46 AM) Temperature Oral [96.4-99.1 DegF] 109/53 mmHg (07/12/19 4:55 AM) 106/90 mmHg (07/12/19 3:20 AM) 140/57 mmHg (07/12/19 12:55 AM) Blood Pressure [90-140/60-90 mmHg] 18 BRMIN (07/12/19 4:55 AM) 18 BRMIN (07/12/19 12:55 AM) 18 BRMIN (07/12/19 12:46 AM) Respiratory Rate [14-20 BRMIN] 90 bpm (07/12/19 4:55 AM) 98 bpm (07/12/19 12:55 AM) 112 bpm *HI* (07/12/19 12:46 AM) Peripheral Pulse Rate [60-100 bpm] Problem List Condition Effective Dates Status Health Status Informan t Anxiety(Confirmed) Resolved Aortic aneurysm Resolved repair(Confirmed) Back pain(Confirmed) 10/03/10 Active Chronic ; Bipolar 1 Resolved disorder(Confirmed) Bipolar 1 Resolved disorder(Confirmed) Cervical Resolved postlaminectomy syndrome(Confirmed) CHF (congestive Active heart failure)(Confirmed) Cholecystectomy(Conf Resolved irmed) COPD(Confirmed) Active CVA (cerebral Resolved vascular accident)(Confirmed) DVT - Deep vein Active thrombosis(Confirmed ) Factor 5 Leiden Active mutation, heterozygous(Confirm ed) History of DVT (deep Active vein thrombosis)(Confirme d) Hodgkins Resolved lymphoma(Confirmed) Status post Active CVA(Confirmed) H/O ascending aorta Active repair(Confirmed) HLD - Active Hyperlipidemia(Confi rmed) Depression(Confirmed Resolved ) Myocardial Resolved infarction(Confirmed ) Nephrectomy(Confirme Resolved d)1 Occipital Resolved neuralgia(Confirmed) Pneumonia(Confirmed) Resolved Current every day Active smoker(Confirmed) PTSD (post-traumatic Resolved stress disorder)(Confirmed) 1left kidney Allergies, Adverse Reactions, Alerts Substance Reaction Severity Status ampicillin Active Toradol Active Zofran hives Active Neurontin Active Reglan Active Portal Active Paper Tape Active traMADol Active Medications No data available for this section Results Most recent to 1 oldest [Reference Range]: Procalcitonin Lvl 0.24 ng/mL [0.00-0.10 ng/mL] *HI* (07/12/19 1:52 AM) Neutrophils # 8.1 K/CMM [1.5-8.1 K/CMM] (07/12/19 1:52 AM) Lymphocytes # 1.2 K/CMM [1.0-5.5 K/CMM] (07/12/19 1:52 AM) Monocytes # [0.0-0.8 0.6 K/CMM K/CMM] (07/12/19 1:52 AM) Eosinophils # 0.1 K/CMM [0.0-0.5 K/CMM] (07/12/19 1:52 AM) eGFR 80 mL/min/1.73m2 1 *NA* (07/12/19 1:52 AM) A/G Ratio [0.7-1.6] 0.8 (07/12/19 1:52 AM) Albumin Lvl [3.5-5.0 3.4 g/dL g/dL] *LOW* (07/12/19 1:52 AM) Alk Phos [39-136 104 unit/L unit/L] (07/12/19 1:52 AM) ALT [0-65 unit/L] 35 unit/L (07/12/19 1:52 AM) AGAP [10.0-20.0 9.6 mEq/L mEq/L] *LOW* (07/12/19: AM) AST [0-37 unit/L] 25 unit/L (07/12/19:52 AM) B/C Ratio [6-25] 14 (07/12/19: AM) Basophils [0.0-1.0 0.3 % %] (07/12/19 1:52 AM) BUN [7-22 mg/dL] 15 mg/dL (07/12/19 1:52 AM) Calcium Lvl 9.2 mg/dL [8.5-10.5 mg/dL] (07/12/19: AM) Chloride Lvl [95-109 102 mEq/L mEq/L] (07/12/19: AM) CO2 [24-32 mEq/L] 28 mEq/L (07/12/19: AM) Creatinine Lvl 1.08 mg/dL [0.50-1.40 mg/dL] (07/12/19 1:52 AM) Eosinophils [0.0-4.0 0.9 % %] (07/12/19: AM) Globulin [2.7-4.2 4.0 g/dL g/dL] (07/12/19: AM) Glucose Lvl [70-99 156 mg/dL mg/dL] *HI* (07/12/19: AM) Hct [42.0-54.0 %] 40.6 % *LOW* (07/12/19: AM) Hgb [14.0-18.0 g/dL] 14.0 g/dL (07/12/19:52 AM) Potassium Lvl 3.6 mEq/L [3.5-5.1 mEq/L] (07/12/19:52 AM) Lactic Acid Lvl 1.5 mMol/L [0.5-2.2 mMol/L] (07/12/19 1:52 AM) Lymphocytes 12.2 % [20.0-40.0 %] *LOW* (07/12/19 1:52 AM) MCH [27.0-31.0 pg] 30.7 pg (07/12/19 1:52 AM) MCHC [32.0-36.0 34.4 g/dL g/dL] (07/12/19 1:52 AM) MCV [80.0-94.0 fL] 89.3 fL (07/12/19 1:52 AM) Monocytes [2.0-12.0 6.2 % %] (07/12/19 1:52 AM) MPV [7.4-10.4 fL] 7.9 fL (07/12/19 1:52 AM) Sodium Lvl [135-145 136 mEq/L mEq/L] (07/12/19:52 AM) Platelet [133-450 197 K/CMM K/CMM] (07/12/19 1:52 AM) Segs [45.0-75.0 %] 80.4 % *HI* (07/12/19 1:52 AM) Total Protein 7.4 g/dL [6.4-8.4 g/dL] (07/12/19 1:52 AM) RBC [4.70-6.10 4.55 M/CMM M/CMM] *LOW* (07/12/19:52 AM) RDW [11.5-14.5 %] 14.3 % (07/12/19 1:52 AM) Bili Total [0.2-1.3 0.5 mg/dL mg/dL] (07/12/19 1:52 AM) Troponin-I <0.02 ng/mL [0.00-0.40 ng/mL] (07/12/19 1:52 AM) WBC [3.7-10.4 K/CMM] 10.0 K/CMM (07/12/19 1:52 AM) 1Result Comment: The eGFR is calculated using the CKD-EPI formula. In most young, healthy individuals the eGFR will be >90 mL/min/1.73m2. The eGFR declines with age. An eGFR of 60-89 may be normal in some populations, particularly the elderly, for whom the CKD-EPI formula has not been extensively validated. Use of the eGFR is not recommended in the following populations: Individuals with unstable creatinine concentrations, including patients and those with serious co-morbid conditions. Patients with extremes in muscle mass or diet. The data above are obtained from the National Kidney Disease Education Program ( NKDEP) which additionally recommends that when the eGFR is used in patients with extremes of body mass index for purposes of drug dosing, the eGFR should be mul tiplied by the estimated BMI. Immunizations Given and Recorded Vaccine Date Status Refusal Reason pneumococcal 23-valent vaccine 04/18/18 Given Not Given Vaccine Date Status Refusal Reason pneumococcal 23-valent vaccine 10/02/16 Not Given Patient Refuses pneumococcal 23-valent vaccine1 01/06/16 Not Given Patient Refuses influenza virus vaccine, inactivated 02/03/15 Not Given Patient Refuses 1Result Note: Patient stated he already had pneumoccal vaccine couple months ago Procedures Procedure Date Related Diagnosis Body Site Status Aortic aneurysm repair Completed Back care1 Completed Cholecystectomy Completed IVC - Insertion of inferior vena caval filter Com pleted Nephrectomy2 Completed Procedure on bone3 Completed Surgical procedure on cervical spine Completed 1Pt states he has a titanium tube in his back due to spinal stenosis 2left 3titanium plate in neck Social History Social History Type Response Alcohol Never Employment/School Status: Unemployed, disable d. Exercise 1 Substance Abuse Use: None. Smoking Status Current every day smoker; T ype: Cigars; Previous treatment: None; Ready to change: Yes; Concerns about tobacco use in household: No; Exposure to Tobacco Smoke None; Cigarette Smoking L ast 365 Days Yes; Reg Smoking Cessation Counseling Yes; Started [age]: [age]; entered on: 07/10/19 1" I don't exercise , aboiut six mpnthsagoi was six hundred pounds i lost theweightbyhaving cancer" Assessment and Plan No data available for this section
--- OUTSIDE RECORDS SUMMARY | 2019-07-27 19:15 | XMS REPORT | Summary of Care ---
Author Author [facility] Organization [facility] Address Unknown Phone Unavailable Encounter ALFREDA Qiu(MARTHA) [id number] Date(s): 07/10/19 - 07/11/19 [facility] [address] [place] [address]- [phone] Discharge Disposition: Home or Self Care Attending Physician: Jimena Hester DO Admitting Physician: Jimena Hester DO Vital Signs 1 2 3 Most recent to oldest [Reference Range]: 187.96 cm (07/10/19 7:10 PM) 187.96 cm (07/10/19 1:22 PM) Height 97.8 DegF (07/11/19 12:00 PM) 97.8 DegF (07/11/19 7:01 AM) 98.3 DegF (07/11/19 3:44 AM) Temperature Oral [96.4-99.1 DegF] 123/68 mmHg (07/11/19 12:00 PM) 132/70 mmHg (07/11/19 7:01 AM) 96/46 mmHg (07/11/19 3:44 AM) Blood Pressure [90-140/60-90 mmHg] 16 BRMIN (07/11/19 12:00 PM) 14 BRMIN (07/11/19 7:01 AM) 16 BRMIN (07/11/19 3:44 AM) Respiratory Rate [14-20 BRMIN] 86 bpm (07/11/19 12:00 PM) 79 bpm (07/11/19 7:01 AM) 82 bpm (07/11/19 3:44 AM) Peripheral Pulse Rate [60-100 bpm] 182.045 kg (07/11/19 8:45 AM) 181.818 kg (07/10/19 7:10 PM) 181.818 kg (07/10/19 1:22 PM) Weight 51.46 m2 (07/10/19 7:10 PM) 51.46 m2 (07/10/19 1:22 PM) Body Mass Index Problem List Condition Effective Dates Status Health [...] Zofran hives Active Neurontin Active Reglan Active [place] Active Paper Tape Active traMADol Active Medications aspirin 325 mg, 1 tab, Route: PO, Drug form: ECTAB, ONCE, Dosing Weight 181.818, kg, Roya ority: STAT, Start date: 07/10/19 15:02:00 CDT, Stop date: 07/10/19 15:02:00 CDT , 0 Notes: (Do Not Crush) Do not crush or chew. Start Date: 07/10/19 Stop Date: 07/10/19 Status: Completed Ativan 1 mg, 0.5 mL, Route: IVP, Drug form: INJ, ONCE, Dosing Weight 181.818, kg, PRN A nxiety, Start date: 07/10/19 18:46:00 CDT, 0 Notes: (Same as: Ativan) Start Date: 07/10/19 Stop Date: 07/10/19 Status: Completed atorvastatin 40 mg, 1 tab, Route: PO, Drug form: TAB, Bedtime, Dosing Weight 181.818, kg, Sta rt date: 07/10/19 21:00:00 CDT, Duration: 30 day, Stop date: 08/08/19 21:00:00 C DT, 0 Notes: (Same as: Lipitor) Start Date: 07/10/19 Stop Date: 07/11/19 Status: Discontinued atorvastatin 40 mg oral tablet 40 mg = 1 tab, PO, Bedtime, # 30 tab, 0 Refill(s) Start Date: 07/10/19 Status: Ordered bisacodyl 10 mg, 1 supp, Route: SD, Drug form: SUPP, Daily, Dosing Weight 181.818, kg, PRN Constipation, Start date: 07/10/19 15:59:00 CDT, Duration: 30 day, Stop date: 0 08/09/19 15:58:00 CDT, 0 Notes: (Same As: Dulcolax, [place]-Lax) Start Date: 07/10/19 Stop Date: 07/11/19 Status: Discontinued buPROPion 150 mg, PO, BID, 0 Refill(s) Start Date: 07/10/19 Status: Ordered buPROPion 150 mg, 2 tab, Route: PO, Drug form: TAB, BID, Dosing Weight 182.045, kg, Start date: 07/11/19 17:00:00 CDT, Duration: 30 day, Stop date: 08/10/19 9:00:00 CDT, 0 Notes: (Same As: Wellbutrin) Start Date: 07/11/19 Stop Date: 07/11/19 Status: Canceled citalopram 40 mg, 4 tab, Route: PO, Drug form: TAB, Daily, Dosing Weight 182.045, kg, Start date: 07/12/19 9:00:00 CDT, Duration: 30 day, Stop date: 08/10/19 9:00:00 CDT, 0 Start Date: 07/12/19 Stop Date: 07/11/19 Status: Canceled citalopram 40 mg oral tablet 40 mg = 1 tab, PO, Daily, # 30 tab, 0 Refill(s) Start Date: 07/10/19 Status: Ordered Dextrose 50% Syringe (D50W) 25 mL, Route: IVP, Dosing Weight 181.818, kg, PRN, PRN Blood Glucose Results, St art date: 07/10/19 15:59:00 CDT, Duration: 30 day, Stop date: 08/09/19 15:58:00 CDT Start Date: 07/10/19 Stop Date: 07/10/19 Status: Deleted Dextrose 50% Syringe (D50W) 50 mL, Route: IVP, Dosing Weight 181.818, kg, PRN, PRN Blood Glucose Results, St art date: 07/10/19 15:59:00 CDT, Duration: 30 day, Stop date: 08/09/19 15:58:00 CDT Start Date: 07/10/19 Stop Date: 07/10/19 Status: Deleted Dextrose 50% Syringe (D50W) 12.5 gm, 25 mL, Route: IVP, Drug Form: INJ, Dosing Weight 181.818, kg, PRN, PRN Blood Glucose Results, Start date: 07/10/19 16:03:00 CDT, Duration: 30 day, Stop date: 08/09/19 16:02:00 CDT, 0 Start Date: 07/10/19 Stop Date: 07/11/19 Status: Discontinued Dextrose 50% Syringe (D50W) 25 gm, 50 mL, Route: IVP, Drug Form: INJ, Dosing Weight 181.818, kg, PRN, PRN Bl ood Glucose Results, Start date: 07/10/19 16:03:00 CDT, Duration: 30 day, Stop d ate: 08/09/19 16:02:00 CDT, 0 Start Date: 07/10/19 Stop Date: 07/11/19 Status: Discontinued digoxin 125 mcg (0.125 mg) oral tablet 0.125 mg, PO, Daily, # 30 tab, 0 Refill(s) Start Date: 07/10/19 Status: Ordered digoxin 125 mcg (0.125 mg) oral tablet 0.125 mg, 1 tab, Route: PO, Drug form: TAB, Daily, Dosing Weight 181.818, kg, St art date: 07/11/19 9:00:00 CDT, Duration: 30 day, Stop date: 08/09/19 9:00:00 CD T, 0 Start Date: 07/11/19 Stop Date: 07/11/19 Status: Discontinued docusate 100 mg, 1 cap, Route: PO, Drug form: CAP, BID, Dosing Weight 181.818, kg, Start date: 07/10/19 17:00:00 CDT, Duration: 30 day, Stop date: 08/09/19 9:00:00 CDT, 0 Notes: (Same as: Colace) (Do Not Crush) Start Date: 07/10/19 Stop Date: 07/11/19 Status: Discontinued DuoNeb inhalation solution 3 ml, Route: NEB, Drug Form: SOLN, Dosing Weight 181.818, kg, RQ6H, PRN Respirat ory Pathway, Start date: 07/10/19 17:07:00 CDT, Duration: 30 day, Stop date: 17:06:00 CDT, 0 Notes: (Same as: Duoneb) Start Date: 07/10/19 Stop Date: 07/11/19 Status: Discontinued furosemide 40 mg oral tablet 40 mg = 1 tab, PO, Daily, # 30 tab, 0 Refill(s) Start Date: 07/10/19 Stop Date: 07/10/19 Status: Deleted furosemide 40 mg oral tablet 40 mg, 2 tab, Route: PO, Drug form: TAB, Daily, Dosing Weight 181.818, kg, Start date: 07/11/19 9:00:00 CDT, Duration: 30 day, Stop date: 08/09/19 9:00:00 CDT, 0 Notes: (Same as: Lasix) May cause GI upset. Give with food or milk. Start Date: 07/11/19 Stop Date: 07/11/19 Status: Discontinued gabapentin 300 mg oral capsule 300 mg = 1 cap, PO, TID, # 90 cap, 0 Refill(s) Start Date: 07/10/19 Stop Date: 07/10/19 Status: Deleted gabapentin 300 mg oral capsule 300 mg, 1 cap, Route: PO, Drug form: CAP, TID, Dosing Weight 181.818, kg, Start date: 07/10/19 17:00:00 CDT, Duration: 30 day, Stop date: 08/09/19 13:00:00 CDT Start Date: 07/10/19 Stop Date: 07/10/19 Status: Discontinued glucagon 1 mg, Route: IM, PRN, Dosing Weight 181.818, kg, PRN Blood Glucose Results, Star t date: 07/10/19 15:59:00 CDT, Duration: 30 day, Stop date: 08/09/19 15:58:00 CD T Start Date: 07/10/19 Stop Date: 07/10/19 Status: Deleted glucagon 1 mg, Route: IM, Drug form: PDR/INJ, PRN, Dosing Weight 181.818, kg, PRN Blood G lucose Results, Start date: 07/10/19 16:03:00 CDT, Duration: 30 day, Stop date: 08/09/19 16:02:00 CDT, 0 Start Date: 07/10/19 Stop Date: 07/11/19 Status: Discontinued hydrALAZINE 10 mg, 0.5 mL, Route: IVP, Drug form: INJ, Q4H, Dosing Weight 181.818, kg, PRN, Start date: 07/10/19 15:59:00 CDT, Duration: 30 day, Stop date: 08/09/19 15:58:0 0 CDT, SBP > 160, 0 Notes: (Same as: Apresoline)Push over 5 minutes Start Date: 07/10/19 Stop Date: 07/11/19 Status: Discontinued insulin lispro 1 unit, 0.01 mL, Route: SUB-Q, Drug form: SOLN, TID-Before Meals, Dosing Weight 181.818, kg, PRN Blood Glucose Results, Start date: 07/10/19 16:03:00 CDT, Durat ion: 30 day, Stop date: 08/09/19 16:02:00 CDT, 0 Notes: (Same as: Humalog) Roll in palms of hands gently; Do not shake vigorously . WASTE: F/P - Black; E - Municipal Trash BinStable for 28 days at room tempera ture.Expires in days from Date Start Date: 07/10/19 Stop Date: 07/11/19 Status: Discontinued insulin lispro 2 unit, 0.02 mL, Route: SUB-Q, Drug form: SOLN, TID-Before Meals, Dosing Weight 181.818, kg, PRN Blood Glucose Results, Start date: 07/10/19 16:03:00 CDT, Durat ion: 30 day, Stop date: 08/09/19 16:02:00 CDT, 0 Notes: (Same as: Humalog) Roll in palms of hands gently; Do not shake vigorously . WASTE: F/P - Black; E - Municipal Trash BinStable for 28 days at room [facility].Expires in days from Date Start Date: 07/10/19 Stop Date: 07/11/19 Status: Discontinued insulin lispro 3 unit, 0.03 mL, Route: SUB-Q, Drug form: SOLN, TID-Before Meals, Dosing Weight 181.818, kg, PRN Blood Glucose Results, Start date: 07/10/19 16:03:00 CDT, Durat ion: 30 day, Stop date: 08/09/19 16:02:00 CDT, 0 Notes: (Same as: Humalog) Roll in palms of hands gently; Do not shake vigorously . WASTE: F/P - Black; E - Municipal Trash BinStable for 28 days at room [facility].Expires in days from Date Start Date: 07/10/19 Stop Date: 07/11/19 Status: Discontinued insulin lispro 4 unit, 0.04 mL, Route: SUB-Q, Drug form: SOLN, TID-Before Meals, Dosing Weight 181.818, kg, PRN Blood Glucose Results, Start date: 07/10/19 16:03:00 CDT, Durat ion: 30 day, Stop date: 08/09/19 16:02:00 CDT, 0 Notes: (Same as: Humalog) Roll in palms of hands gently; Do not shake vigorously . WASTE: F/P - Black; E - Municipal Trash BinStable [facility].Expires in days from Date Start Date: 07/10/19 Stop Date: 07/11/19 Status: Discontinued insulin lispro 5 unit, 0.05 mL, Route: SUB-Q, Drug form: SOLN, TID-Before Meals, Dosing Weight 181.818, kg, PRN Blood Glucose Results, Start date: 07/10/19 16:03:00 CDT, Durat ion: 30 day, Stop date: 08/09/19 16:02:00 CDT, 0 Notes: (Same as: Humalog) Roll in palms of hands gently; Do not shake vigorously . WASTE: F/P - Black; E - Municipal Trash BinStable for 28 days at room tempera ture.Expires in days from Date Start Date: 07/10/19 Stop Date: 07/11/19 Status: Discontinued isosorbide mononitrate 30 mg, 1 tab, Route: PO, Drug form: ERTAB, QAM, Dosing Weight 181.818, kg, Start date: 07/11/19 9:00:00 CDT, Duration: 30 day, Stop date: 08/09/19 9:00:00 CDT, 0 Start Date: 07/11/19 Stop Date: 07/11/19 Status: Discontinued isosorbide mononitrate 30 mg oral tablet, extended release 30 mg = 1 tab, PO, QAM, # 30 tab, 0 Refill(s) Start Date: 07/10/19 Status: Ordered Jardiance 25 mg oral tablet 25 mg = 1 tab, PO, QAM, 0 Refill(s) Start Date: 07/10/19 Stop Date: 07/10/19 Status: Completed Lasix 40 mg oral tablet 40 mg = 1 tab, PO, BID, # 30 tab, 0 Refill(s) Start Date: 07/10/19 Status: Ordered levETIRAcetam 500 mg oral tablet 1,000 mg = 2 tab, PO, BID, # 120 tab, 0 Refill(s) Start Date: 07/10/19 Stop Date: 07/10/19 Status: Deleted levETIRAcetam 500 mg oral tablet 1,000 mg, 4 tab, Route: PO, Drug form: TAB, BID, Dosing Weight 181.818, kg, Star t date: 07/10/19 17:00:00 CDT, Duration: 30 day, Stop date: 08/09/19 9:00:00 CDT , 0 Notes: (Same as:Keppra) Start Date: 07/10/19 Stop Date: 07/11/19 Status: Discontinued LORazepam 2 mg, 1 tab, Route: PO, Drug form: TAB, BID, Dosing Weight 181.818, kg, PRN Anxi ety, Start date: 07/10/19 16:28:00 CDT, Duration: 30 day, Stop date: 08/09/19 16 :27:00 CDT, 0 Notes: (Same as: Ativan) Start Date: 07/10/19 Stop Date: 07/11/19 Status: Discontinued LORazepam 2 mg oral tablet 2 mg = 1 tab, PO, BID, PRN Anxiety, 0 Refill(s) Start Date: 07/11/19 Status: Ordered LORazepam 2 mg oral tablet 2 mg = 1 tab, PO, BID, PRN Anxiety, # 60 tab, 0 Refill(s) Start Date: 07/10/19 Stop Date: 07/10/19 Status: Deleted melatonin 3 mg, 1 tab, Route: PO, Drug form: TAB, Bedtime, Dosing Weight 181.818, kg, PRN Insomnia, Start date: 07/10/19 15:59:00 CDT, Duration: 30 day, Stop date: 15:58:00 CDT, 0 Notes: (Same as: Melatonin) Start Date: 07/10/19 Stop Date: 07/11/19 Status: Discontinued metoprolol tartrate 25 mg, 1 tab, Route: PO, Drug form: TAB, Q12H, Dosing Weight 181.818, kg, Start date: 07/10/19 21:00:00 CDT, Duration: 30 day, Stop date: 08/09/19 9:00:00 CDT, 0 Notes: (Same as: Lopressor) Start Date: 07/10/19 Stop Date: 07/11/19 Status: Discontinued Metoprolol Tartrate 25 mg oral tablet 25 mg = 1 tab, PO, BID, # 60 tab, 0 Refill(s) Start Date: 07/10/19 Status: Ordered morphine 0.5 mg/mL preservative-free injectable solution 1 mg, 0.25 mL, Route: IVP, Drug form: SOLN, Q4H, Dosing Weight 181.818, kg, PRN Pain Score 7-10, Start date: 07/10/19 17:04:00 CDT, Duration: 30 day, Stop date: 08/09/19 17:03:00 CDT, 0 Notes: (Same as:MORPhine Sulfate) Start Date: 07/10/19 Stop Date: 07/11/19 Status: Discontinued pantoprazole 40 mg, PO, Daily, # 30 tab, 0 Refill(s) Start Date: 07/10/19 Stop Date: 08/09/19 Status: Ordered pantoprazole 40 mg, 1 tab, Route: PO, Drug form: ECTAB, Daily, Dosing Weight 182.045, kg, Sta rt date: 07/12/19 9:00:00 CDT, Duration: 30 day, Stop date: 08/10/19 9:00:00 CDT , 0 Notes: Tablet should not be chewed or crushed.(Same as: Protonix) Start Date: 07/12/19 Stop Date: 07/11/19 Status: Canceled pantoprazole 40 mg intravenous injection IV, Daily, 0 Refill(s) Start Date: 07/10/19 Stop Date: 07/10/19 Status: Deleted polyethylene glycol 3350 17 gm, 1 pkt, Route: PO, Drug form: PWDR, Daily, Dosing Weight 181.818, kg, PRN Constipation, Start date: 07/10/19 15:59:00 CDT, Duration: 30 day, Stop date: 15:58:00 CDT, 0 Notes: Dissolve in 8 oz of water or juice.(Same as: Miralax) Start Date: 07/10/19 Stop Date: 07/11/19 Status: Discontinued Proventil HFA 90 mcg/inh inhalation aerosol with adapter 1 puff, INHALER, QID, PRN for wheezing, # 25 gm, 0 Refill(s) Start Date: 07/10/19 Status: Ordered risperiDONE 2 mg, 1 tab, Route: PO, Drug form: TAB, BID, Dosing Weight 181.818, kg, Start da te: 07/10/19 17:00:00 CDT, Duration: 30 day, Stop date: 08/09/19 9:00:00 CDT, 0 Notes: (Same as: Risperdal)Hazardous Drug Group 2:Non-antineoplastic Hazardous D rug -- Refer to safe handling procedure PPE Matrix Start Date: 07/10/19 Stop Date: 07/11/19 Status: Discontinued risperiDONE 2 mg oral tablet 2 mg = 1 tab, PO, BID, # 60 tab, 0 Refill(s) Start Date: 07/10/19 Stop Date: 08/09/19 Status: Ordered Saline Flush 0.9% 10 mL, Route: IVP, Drug Form: INJ, Dosing Weight 190.909, kg, PRN, PRN Line Flus h, Start date: 07/10/19 13:12:00 CDT, Duration: 30 day, Stop date: 08/09/19 13:1 1:00 CDT, 0 Notes: (Same as: BD Posiflush) Start Date: 07/10/19 Stop Date: 07/10/19 Status: Discontinued Saline Flush 0.9% 10 ml, Route: IVP, Drug Form: INJ, Dosing Weight 181.818, kg, Q12H, Start date: 07/10/19 21:00:00 CDT, Duration: 30 day, Stop date: 08/09/19 9:00:00 CDT, 0 Notes: (Same as: BD Posiflush) Start Date: 07/10/19 Stop Date: 07/10/19 Status: Canceled Saline Flush 0.9% 10 ml, Route: IVP, Drug Form: INJ, Dosing Weight 181.818, kg, PRN, PRN Line Flus h, Start date: 07/10/19 16:01:00 CDT, Duration: 30 day, Stop date: 08/09/19 16:0 0:00 CDT, 0 Notes: (Same as: BD Posiflush) Start Date: 07/10/19 Stop Date: 07/10/19 Status: Discontinued spironolactone 50 mg, 1 tab, Route: PO, Drug form: TAB, Daily, Dosing Weight 182.045, kg, Start date: 07/12/19 9:00:00 CDT, Duration: 30 day, Stop date: 08/10/19 9:00:00 CDT, 0 Notes: (Same As: Aldactone)Hazardous Drug Group 2:Non-antineoplastic Hazardous D rug -- Refer to safe handling procedure PPE [id number] Start Date: 07/12/19 Stop Date: 07/11/19 Status: Canceled spironolactone 50 mg oral tablet 50 mg = 1 tab, PO, Daily, # 60 tab, 0 Refill(s) Start Date: 07/10/19 Stop Date: 07/10/19 Status: Deleted trazodone 100 mg oral tablet Route: PO, Drug form: TAB, Bedtime, Dosing Weight 182.045, kg, Start date: 07/10 21:00:00 CDT, Duration: 30 day, Stop date: 08/09/19 21:00:00 CDT Start Date: 07/11/19 Stop Date: 07/11/19 Status: Deleted trazodone 100 mg oral tablet See Instructions, 2 tab PO Bedtime 30 day, 0 Refill(s) Start Date: 07/10/19 Status: Ordered trazodone 50 mg oral tablet 200 mg, 4 tab, Route: PO, Drug form: TAB, Bedtime, Start date: 07/11/19 21:00:00 CDT, Duration: 30 day, Stop date: 08/09/19 21:00:00 CDT, 0 Notes: (Same As: Keri) Start Date: 07/11/19 Stop Date: 07/11/19 Status: Canceled Tylenol with Codeine #3 oral tablet 1 tab, PO, Q8H, # 32 tab, 0 Refill(s) Start Date: 07/10/19 Status: Ordered Tylenol with Codeine #3 oral tablet 1 tab, Route: PO, Drug Form: TAB, Dosing Weight 182.045, kg, Q8H, Start date: 16:00:00 CDT, Duration: 30 day, Stop date: 08/10/19 8:00:00 CDT, 0 Notes: Do not exceed 4gm/day of acetaminophen. (Same as: Tylenol with Codeine # 3) Start Date: 07/11/19 Stop Date: 07/11/19 Status: Canceled Xarelto 20 mg, 1 tab, Route: PO, Drug form: TAB, QPM, Dosing Weight 181.818, kg, Start d ate: 07/10/19 17:00:00 CDT, Duration: 30 day, Stop date: 08/08/19 17:00:00 CDT, 0 Notes: (Same as: Xarelto)Administer with food Start Date: 07/10/19 Stop Date: 07/11/19 Status: Discontinued Xarelto 20 mg oral tablet 20 mg, PO, Daily, For Atrial Fibrillation, 0 Refill(s), CrCl > 50 mL/min Start Date: 07/10/19 Stop Date: 07/10/19 Status: Completed Xarelto 20 mg oral tablet 20 mg, PO, QPM, For Atrial Fibrillation, 0 Refill(s), CrCl > 50 mL/min Start Date: 07/10/19 Status: Ordered Results Most recent to 1 2 oldest [Reference Range]: Procalcitonin Lvl 0.12 ng/mL [0.00-0.10 ng/mL] *HI* (07/10/19 5:11 PM) Neutrophils # 4.1 K/CMM 11.3 K/CMM [1.5-8.1 K/CMM] (07/11/19 3:21 AM) *HI* (07/10/19 1:46 PM) Lymphocytes # 0.9 K/CMM 1.1 K/CMM [1.0-5.5 K/CMM] *LOW* (07/10/19 1:46 PM) (07/11/19 3:21 AM) Monocytes # [0.0-0.8 0.4 K/CMM 0.6 K/CMM K/CMM] (07/11/19 3:21 AM) (07/10/19 1:46 PM) Eosinophils # 0.1 K/CMM 0.1 K/CMM [0.0-0.5 K/CMM] (07/11/19 3:21 AM) (07/10/19 1:46 PM) eGFR 83 mL/min/1.73m2 1 83 mL/min/1.73m2 2 *NA* *NA* (07/11/19 3:21 AM) (07/10/19 1:46 PM) A/G Ratio [0.7-1.6] 0.9 (07/11/19 3:21 AM) Albumin Lvl [3.5-5.0 3.0 g/dL g/dL] *LOW* (07/11/19 3:21 AM) Alk Phos [39-136 76 unit/L unit/L] (07/11/19 3: AM) ALT [0-65 unit/L] 29 unit/L (07/11/19 3: AM) AGAP [10.0-20.0 7.5 mEq/L 10.6 mEq/L mEq/L] *LOW* (07/10/19 1:46 PM) (07/11/19 3: AM) AST [0-37 unit/L] 16 unit/L (07/11/19 3: AM) B/C Ratio [6-25] 12 (07/11/19: AM) Basophils [0.0-1.0 0.5 % 0.3 % %] (07/11/19 3: AM) (07/10/19 1:46 PM) BUN [7-22 mg/dL] 13 mg/dL 14 mg/dL (07/11/19: AM) (07/10/19 1:46 PM) Calcium Lvl 8.3 mg/dL 8.9 mg/dL [8.5-10.5 mg/dL] *LOW* (07/10/19 1:46 PM) (07/11/19 3: AM) CHD Risk [4.00-7.30] 6.12 (07/10/19 5:11 PM) Chol [<=199 mg/dL] 196 mg/dL (07/10/19 5:11 PM) Total CK [12-191 207 unit/L unit/L] *HI* (07/10/19 1:46 PM) Chloride Lvl [95-109 104 mEq/L 101 mEq/L mEq/L] (07/11/19 3:21 AM) (07/10/19 1:46 PM) CO2 [24-32 mEq/L] 29 mEq/L 26 mEq/L (07/11/19 3:21 AM) (07/10/19 1:46 PM) Creatinine Lvl 1.05 mg/dL 1.05 mg/dL [0.50-1.40 mg/dL] (07/11/19 3:21 AM) (07/10/19 1:46 PM) Digoxin Lvl [0.8-2.0 0.2 ng/mL ng/mL] *LOW* (07/10/19 1:46 PM) Eosinophils [0.0-4.0 1.4 % 0.8 % %] (07/11/19 3:21 AM) (07/10/19 1:46 PM) Globulin [2.7-4.2 3.2 g/dL g/dL] (07/11/19 3:21 AM) Glucose Lvl [70-99 184 mg/dL 131 mg/dL mg/dL] *HI* *HI* (07/11/19 3:21 AM) (07/10/19 1:46 PM) Hct [42.0-54.0 %] 38.1 % 41.7 % *LOW* *LOW* (07/11/19 3:21 AM) (07/10/19 1:46 PM) HDL [>=61 mg/dL] 32 mg/dL *LOW* (07/10/19 5:11 PM) Hgb [14.0-18.0 g/dL] 13.0 g/dL 14.3 g/dL *LOW* (07/10/19 1:46 PM) (07/11/19 3:21 AM) Hgb A1C [<=5.6 %] 6.2 % *HI* (07/10/19 5:11 PM) INR [0.85-1.17] 1.02 (07/10/19 1:46 PM) Potassium Lvl 3.5 mEq/L 3.6 mEq/L [3.5-5.1 mEq/L] (07/11/19 3:21 AM) (07/10/19 1:46 PM) LDL (Calculated) 119 mg/dL [<=99 mg/dL] *HI* (07/10/19 5:11 PM) Lymphocytes 16.8 % 8.0 % [20.0-40.0 %] *LOW* *LOW* (07/11/19 3:21 AM) (07/10/19 1:46 PM) MCH [27.0-31.0 pg] 30.8 pg 30.7 pg (07/11/19 3:21 AM) (07/10/19 1:46 PM) MCHC [32.0-36.0 34.1 g/dL 34.4 g/dL g/dL] (07/11/19 3:21 AM) (07/10/19 1:46 PM) MCV [80.0-94.0 fL] 90.2 fL 89.3 fL (07/11/19 3:21 AM) (07/10/19 1:46 PM) Monocytes [2.0-12.0 7.4 % 4.7 % %] (07/11/19 3:21 AM) (07/10/19 1:46 PM) MPV [7.4-10.4 fL] 7.8 fL 7.9 fL (07/11/19 3:21 AM) (07/10/19 1:46 PM) Sodium Lvl [135-145 137 mEq/L 134 mEq/L mEq/L] (07/11/19 3:21 AM) *LOW* (07/10/19 1:46 PM) Platelet [133-450 160 K/CMM 203 K/CMM K/CMM] (07/11/19 3:21 AM) (07/10/19 1:46 PM) Segs [45.0-75.0 %] 73.9 % 86.2 % (07/11/19 3:21 AM) *HI* (07/10/19 1:46 PM) Total Protein 6.2 g/dL [6.4-8.4 g/dL] *LOW* (07/11/19 3:21 AM) PT [12.0-14.7 13.4 seconds seconds] (07/10/19 1:46 PM) PTT [22.9-35.8 31.6 seconds seconds] (07/10/19 1:46 PM) RBC [4.70-6.10 4.22 M/CMM 4.67 M/CMM M/CMM] *LOW* *LOW* (07/11/19 3:21 AM) (07/10/19 1:46 PM) RDW [11.5-14.5 %] 14.2 % 14.3 % (07/11/19 3:21 AM) (07/10/19 1:46 PM) Bili Total [0.2-1.3 0.5 mg/dL mg/dL] (07/11/19 3:21 AM) Trig [<=149 mg/dL] 226 mg/dL *HI* (07/10/19 5:11 PM) Troponin-I <0.02 ng/mL [0.00-0.40 ng/mL] (07/10/19 1:46 PM) UA Bili [Negative] Negative *NA* (07/10/19 5:11 PM) UA Blood [Negative] Negative (07/10/19 5:11 PM) UA Color [Yellow] Yellow *NA* (07/10/19 5:11 PM) UA Glucose [Negative 150 mg/dL mg/dL] *ABN* (07/10/19 5:11 PM) UA Ketones [Negative Negative mg/dL mg/dL] *NA* (07/10/19 5:11 PM) UA Leuk Est Negative [Negative] (07/10/19 5:11 PM) UA Nitrite Negative [Negative] (07/10/19 5:11 PM) UA pH [5.0-8.0] 6.0 (07/10/19 5:11 PM) UA Protein [Negative Negative mg/dL mg/dL] (07/10/19 5:11 PM) UA RBC [0-2 /HPF] 2 /HPF (07/10/19 5:11 PM) UA Spec Grav 1.030 [<=1.030] (07/10/19 5:11 PM) UA Sq Epi [Few /LPF] Occasional /LPF *NA* (07/10/19 5:11 PM) UA Turbidity [Clear] Clear (07/10/19 5:11 PM) UA Urobilinogen <=1.0 mg/dL [0.1-1.0 mg/dL] *NA* (07/10/19 5:11 PM) UA WBC [0-5 /HPF] <1 /HPF (07/10/19 5:11 PM) WBC [3.7-10.4 K/CMM] 5.6 K/CMM 13.2 K/CMM (07/11/19 3:21 AM) *HI* (07/10/19 1:46 PM) VLDL 45 *NA* (07/10/19 5:11 PM) 1Result Comment: The eGFR is calculated using [...] be mul tiplied by the estimated BMI. 2Result Comment: The eGFR is calculated using the [...] i lost theweightbyhaving cancer" Assessment and Plan Extracted from: Title: Neurology Consult Author: Kayleigh Rodriguez MD Date: 07/11/19 Impression and Plan Work-up: Vital signs since his admission reviewed. Labs since admission reviewed, glucose elevated to 184 troponin within normal limits. Triglycerides elevated to 226, LDL 119 Hemoglobin A1c 6.[address] head without contrast negative for presence of any acute intracranial abnormalities. CT angiogram of the head and neck was negative for any flow-limiting stenosis. MRI brain without contrast: Negative for presence of acute stroke. Could not appreciate any large areas of encephalomalacia from previous stroke. Next echocardiogram from zero 03/09: Grossly within normal limits. EF was 55 to 60%. Assessment and plan: 49-year-old male who has presented with 1. Acute left hemiparesis,? Superimpos ing chronic left sided weakness. Etiology unclear. 2. History of prior CVA x2 3. A. fib, on Xarelto 4. DVT, status post IVC filter placemen t 5. Hyperglycemia 6. Hyperlipidemia 7. Morbid obesity 8. Dilated deficiency 9. Aortic dissection status post repair 10. Coronary artery disease Plan: 1. Although patient has denied any resi dual deficits from previous strokes during my assessment, chronic left hemiparesis was endorsed during ER and primary team assessment. 2. He has denied any history of pain me dication usage, his previous admission in where patient left AMA after being upset from methadone. 3. It was unclear to me if current pres entation is related to any secondary benefit. During my assessment, patient complained of muscle cramps, he has denied using any pain medications as an outpatient. 4. At this point, recommend no further work-up from neuro standpoint. 5. Okay for the patient to be discharge d, if cleared by PT/OT. Extracted from: Title: History and Physical Author: Jimena Hester O Date: 07/10/19 Left sided weakness Headache - TIA, r/o CVA - check MRI brain - Previous ECHO in February with no evide nce of thrombus - Carotid ultrasoundin Februarynegati ve for significant stenosis, PT/OT/ST Neurochecks Check lipid panel and hemoglobin A1c Neurology consulted History of DVT Factor V Leiden mutation -S/p IVC filter Continue Xarelto Leukocytosis Check UA Check procalcitonin Chest x-ray negative for acute cardiopulmonary findings Hold off on antibiotics for now until further work-up returns Paroxysmal A. fib Continue digoxin and metoprolol Continue Xarelto DM, pt states that he has been off insulin for the past few months Continue gabapentin Continue ISS - check [email or web address] Hx of CHF? - TTE on 03/13/2019 EF of 55 to 60% -Continue home meds ofLasix and aldact one Hyperlipidemia -Continue statin Reported nonobstructive CAD -Cardiac catheterization on 04/28/2018 no significant CAD History of AAA with type a aortic dissection status post repair -Continue metoprolol PTSD Anxiety -Continue Risperdal and lorazepam - cont citalopram History of recurrent TIAs -Continue Xarelto and statin Chronic pain syndrome Patient unable to verifymethadone clinic-we will resume methadone once they are able toverify methadone dose Tobacco abuse Patient counseled on cessation Morbid obesity BMI of 51 CVA (cerebral vascular accident)(I63.9) Ordered: Admit/Condition, 07/10/19 15:59:00 CDT, Status: Out Patient with Observation Services, Telemetry Capable Location, Expected LOS: 1 Midnight, Jimena Hester DO, Admit MD Review/Approve Yes, Isolation: Contact, Droplet, CVA (cerebral vascular accident) xarelto [facility] vs SNF pending PT/OT eval. anticipate 1 midnight stay.
--- OUTSIDE RECORDS SUMMARY | 2019-07-27 19:15 | XMS REPORT | Summary of Care ---
Author Author [facility] Organization [facility] Address Unknown Phone Unavailable Encounter ALFREDA Qiu(MARTHA) [id number] Date(s): 03/12/19 - 03/13/19 [facility] [address] [place] [address]- Discharge Disposition: Left Against Medical Advise Attending Physician: Luis Philip MD Admitting Physician: Mo Dawson MD Vital Signs 1 2 3 Most recent to oldest [Reference Range]: 187.96 cm (03/12/19 7:26 PM) 187.96 cm (03/12/19 1:42 PM) Height 98.2 DegF (03/13/19 4:56 AM) 98.3 DegF (03/12/19 11:15 PM) 97.8 DegF (03/12/19 8:21 PM) Temperature Oral [96.4-99.1 DegF] 101/60 mmHg (03/13/19 4:56 AM) 100/60 mmHg (03/12/19 11:15 PM) 92/54 mmHg (03/12/19 8:21 PM) Blood Pressure [90-140/60-90 mmHg] 16 BRMIN (03/13/19 6:56 AM) 16 BRMIN (03/13/19 4:56 AM) 17 BRMIN (03/12/19 11:15 PM) Respiratory Rate [14-20 BRMIN] 82 bpm (03/13/19 4:56 AM) 88 bpm (03/12/19 11:15 PM) 78 bpm (03/12/19 8:21 PM) Peripheral Pulse Rate [60-100 bpm] 190.909 kg (03/12/19 7:26 PM) 187.727 kg (03/12/19 1:42 PM) Weight 54.04 m2 (03/12/19 7:26 PM) 53.14 m2 (03/12/19 1:42 PM) Body Mass Index Problem List Condition [...] Zofran hives Active Neurontin Active Reglan Active [place] Active Paper Tape Active traMADol Active Medications aspirin 324 mg, Route: CHEW, Drug form: CHEWTAB, ONCE, Dosing Weight 187.727, kg, Priori ty: STAT, Start date: 03/12/19 16:04:00 SYSTEMS MECHANIC, Stop date: 03/12/19 16:04:00 SYSTEMS MECHANIC Start Date: 03/12/19 Stop Date: 03/12/19 Status: Completed aspirin 81 mg tablet, enteric coated 81 mg, 1 tab, Route: PO, Drug form: ECTAB, Daily, Dosing Weight 190.909, kg, Sta rt date: 03/13/19 9:00:00 SYSTEMS MECHANIC, Duration: 30 day, Stop date: 04/11/19 9:00:00 SYSTEMS MECHANIC , 0 Notes: Do not crush or chew.(Same As: Ecotrin) Start Date: 03/13/19 Stop Date: 03/13/19 Status: Canceled Ativan 1 mg, 0.5 mL, Route: IVP, Drug form: INJ, ONCE, Dosing Weight 190.909, kg, PRN A nxiety, Start date: 03/13/19 3:31:00 SYSTEMS MECHANIC, 0 Notes: (Same as: Ativan) Start Date: 03/13/19 Stop Date: 03/13/19 Status: Completed atorvastatin 80 mg, 2 tab, Route: PO, Drug form: TAB, Bedtime, Dosing Weight 187.727, kg, Sta rt date: 03/12/19 21:00:00 SYSTEMS MECHANIC, Duration: 30 day, Stop date: 04/10/19 21:00:[address], 0 Notes: (Same as: Lipitor) Start Date: 03/12/19 Stop Date: 03/13/19 Status: Discontinued Benadryl 25 mg, 0.5 mL, Route: IVP, Drug form: INJ, ONCE, Dosing Weight 187.727, kg, Prio rity: STAT, Start date: 03/12/19 16:58:00 SYSTEMS MECHANIC, Stop date: 03/12/19 16:58:00 SYSTEMS MECHANIC, 0 Notes: (Same as: Benadryl) Start Date: 03/12/19 Stop Date: 03/12/19 Status: Completed Compazine 10 mg, 2 mL, Route: IVP, Drug form: INJ, ONCE, Dosing Weight 187.727, kg, Priori ty: STAT, Start date: 03/12/19 16:58:00 SYSTEMS MECHANIC, Stop date: 03/12/19 16:58:00 SYSTEMS MECHANIC, 0 Notes: (Same as: Compazine) Start Date: 03/12/19 Stop Date: 03/12/19 Status: Completed enoxaparin 40 mg, 0.4 mL, Route: SUB-Q, Drug form: INJ, [id number], Dosing Weight 187.727, kg , Consider for obese patients, Start date: 03/12/19 19:00:00 SYSTEMS MECHANIC, Duration: 30 d ay, Stop date: 04/11/19 7:00:00 SYSTEMS MECHANIC, 0 Notes: (Same as: Lovenox) Start Date: 03/12/19 Stop Date: 03/13/19 Status: Discontinued famotidine 20 mg, 1 tab, Route: PO, Drug form: TAB, Q12H, Dosing Weight 187.727, kg, Start date: 03/12/19 21:00:00 SYSTEMS MECHANIC, Duration: 30 day, Stop date: 04/11/19 9:00:00 SYSTEMS MECHANIC, 0 Notes: (Same as: Pepcid) Start Date: 03/12/19 Stop Date: 03/13/19 Status: Discontinued Lyrica 100 mg oral capsule 100 mg = 1 cap, PO, TID, # 90 cap, 0 Refill(s) Start Date: 03/12/19 Status: Ordered methadone 10 mg oral tablet 10 mg = 1 tab, PO, BID, 0 Refill(s) Start Date: 03/12/19 Stop Date: 03/19/19 Status: Ordered NS (Bolus) IV 1,000 mL, 1,000 ml/hr, Infuse Over: 1 hr, Route: IV, 1,000, Drug form: INJ, ONCE , Priority: STAT, Dosing Weight 187.727 kg, Start date: 03/12/19 16:58:00 SYSTEMS MECHANIC, S top date: 03/12/19 16:58:00 SYSTEMS MECHANIC, 0 Start Date: 03/12/19 Stop Date: 03/12/19 Status: Completed Risperdal PO, Daily, 0 Refill(s) Start Date: 03/12/19 Status: Ordered Saline Flush 0.9% 10 ml, Route: IVP, Drug Form: INJ, Dosing Weight 187.727, kg, Q12H, Start date: 03/12/19 21:00:00 SYSTEMS MECHANIC, Duration: 30 day, Stop date: 04/11/19 9:00:00 SYSTEMS MECHANIC, 0 Notes: preservative free. Start Date: 03/12/19 Stop Date: 03/13/19 Status: Discontinued Saline Flush 0.9% 10 ml, Route: IVP, Drug Form: INJ, Dosing Weight 187.727, kg, PRN, PRN Line Flus h, Start date: 03/12/19 18:56:00 SYSTEMS MECHANIC, Duration: 30 day, Stop date: 04/11/19 18:5 5:00 SYSTEMS MECHANIC, 0 Notes: preservative free. Start Date: 03/12/19 Stop Date: 03/13/19 Status: Discontinued Tylenol 650 mg, Route: PO, Drug form: TAB, ONCE, Dosing Weight 187.727, kg, Priority: ST AT, Start date: 03/12/19 16:58:00 SYSTEMS MECHANIC, Stop date: 03/12/19 16:58:00 SYSTEMS MECHANIC Start Date: 03/12/19 Stop Date: 03/12/19 Status: Completed Tylenol with Codeine #3 oral tablet 1 tab, Route: PO, Drug Form: TAB, Dosing Weight 190.909, kg, Q6H, PRN Pain Score 1-3, Start date: 03/13/19 1:10:00 SYSTEMS MECHANIC, Duration: 30 day, Stop date: 04/12/19 1: 09:00 SYSTEMS MECHANIC, 0 Notes: Do not exceed 4gm/day of acetaminophen. (Same as: Tylenol with Codeine # 3) Start Date: 03/13/19 Stop Date: 03/13/19 Status: Discontinued Results 1 2 3 Most recent to oldest [Reference Range]: 4.4 K/CMM (03/12/19 2:05 PM) Neutrophils # [1.5-8.1 K/CMM] 1.6 K/CMM (03/12/19 2:05 PM) Lymphocytes # [1.0-5.5 K/CMM] 0.5 K/CMM (03/12/19 2:05 PM) Monocytes # [0.0-0.8 K/CMM] 0.1 K/CMM (03/12/19 2:05 PM) Eosinophils # [0.0-0.5 K/CMM] 84 mL/min/1.73m2 1 *NA* (03/12/19 2:05 PM) eGFR 1.2 (03/12/19 2:05 PM) A/G Ratio [0.7-1.6] 3.7 g/dL (03/12/19 2:05 PM) Albumin Lvl [3.5-5.0 g/dL] 92 unit/L (03/12/19 2:05 PM) Alk Phos [39-136 unit/L] 31 unit/L (03/12/19 2:05 PM) ALT [0-65 unit/L] 8.7 mEq/L *LOW* (03/12/19 2:05 PM) AGAP [10.0-20.0 mEq/L] 16 unit/L (03/12/19 2:05 PM) AST [0-37 unit/L] 11 (03/12/19 2:05 PM) B/C Ratio [6-25] 0.7 % (03/12/19 2:05 PM) Basophils [0.0-1.0 %] 11 mg/dL (03/12/19 2:05 PM) BUN [7-22 mg/dL] 9.5 mg/dL (03/12/19 2:05 PM) Calcium Lvl [8.5-10.5 mg/dL] 5.46 (03/12/19 11:36 PM) CHD Risk [4.00-7.30] 131 mg/dL (03/12/19 11:36 PM) Chol [<=199 mg/dL] 121 unit/L (03/12/19 2:05 PM) Total CK [12-191 unit/L] 109 mEq/L (03/12/19 2:05 PM) Chloride Lvl [95-109 mEq/L] 26 mEq/L (03/12/19 2:05 PM) CO2 [24-32 mEq/L] 1.04 mg/dL (03/12/19 2:05 PM) Creatinine Lvl [0.50-1.40 mg/dL] 2.1 % (03/12/19 2:05 PM) Eosinophils [0.0-4.0 %] 3.2 g/dL (03/12/19 2:05 PM) Globulin [2.7-4.2 g/dL] 141 mg/dL *HI* (03/12/19 2:05 PM) Glucose Lvl [70-99 mg/dL] 43.2 % (03/12/19 2:05 PM) Hct [42.0-54.0 %] 24 mg/dL *LOW* (03/12/19 11:36 PM) HDL [>=61 mg/dL] 14.6 g/dL (03/12/19 2:05 PM) Hgb [14.0-18.0 g/dL] 6.7 % *HI* (03/12/19 11:36 PM) Hgb A1C [<=5.6 %] 1.17 (03/12/19 2:05 PM) INR [0.85-1.17] 3.7 mEq/L (03/12/19 2:05 PM) Potassium Lvl [3.5-5.1 mEq/L] 62 mg/dL (03/12/19 11:36 PM) LDL (Calculated) [<=99 mg/dL] 24.0 % (03/12/19 2:05 PM) Lymphocytes [20.0-40.0 %] 30.5 pg (03/12/19 2:05 PM) MCH [27.0-31.0 pg] 33.9 g/dL (03/12/19 2:05 PM) MCHC [32.0-36.0 g/dL] 90.0 fL (03/12/19 2:05 PM) MCV [80.0-94.0 fL] 6.8 % (03/12/19 2:05 PM) Monocytes [2.0-12.0 %] 8.2 fL (03/12/19 2:05 PM) MPV [7.4-10.4 fL] 140 mEq/L (03/12/19 2:05 PM) Sodium Lvl [135-145 mEq/L] 220 K/CMM (03/12/19 2:05 PM) Platelet [133-450 K/CMM] 66.4 % (03/12/19 2:05 PM) Segs [45.0-75.0 %] 6.9 g/dL (03/12/19 2:05 PM) Total Protein [6.4-8.4 g/dL] 15.0 seconds *HI* (03/12/19 2:05 PM) PT [12.0-14.7 seconds] 35.1 seconds (03/12/19 2:05 PM) PTT [22.9-35.8 seconds] 4.80 M/CMM (03/12/19 2:05 PM) RBC [4.70-6.10 M/CMM] 14.9 % *HI* (03/12/19 2:05 PM) RDW [11.5-14.5 %] 0.3 mg/dL (03/12/19 2:05 PM) Bili Total [0.2-1.3 mg/dL] 223 mg/dL *HI* (03/12/19 11:36 PM) Trig [<=149 mg/dL] <0.02 ng/mL (03/13/19 4:55 AM) <0.02 ng/mL (03/12/19 11:36 PM) <0.02 ng/mL (03/12/19 2:05 PM) Troponin-I [0.00-0.40 ng/mL] Negative *NA* (03/13/19 7:08 AM) UA Bili [Negative] Negative (03/13/19 7:08 AM) UA Blood [Negative] Ltyellow *NA* (03/13/19 7:08 AM) UA Color 500 mg/dL *ABN* (03/13/19 7:08 AM) UA Glucose [Negative mg/dL] Negative mg/dL *NA* (03/13/19 7:08 AM) UA Ketones [Negative mg/dL] Negative (03/13/19 7:08 AM) UA Leuk Est [Negative] Negative (03/13/19 7:08 AM) UA Nitrite [Negative] 6.0 (03/13/19 7:08 AM) UA pH [5.0-8.0] Negative mg/dL (03/13/19 7:08 AM) UA Protein [Negative mg/dL] <1 /HPF (03/13/19 7:08 AM) UA RBC [0-2 /HPF] 1.022 (03/13/19 7:08 AM) UA Spec Grav [<=1.030] None Seen *NA* (03/13/19 7:08 AM) UA Sq Epi Clear (03/13/19 7:08 AM) UA Turbidity [Clear] <=1.0 mg/dL *NA* (03/13/19 7:08 AM) UA Urobilinogen [0.1-1.0 mg/dL] 1 /HPF (03/13/19 7:08 AM) UA WBC [0-5 /HPF] 6.7 K/CMM (03/12/19 2:05 PM) WBC [3.7-10.4 K/CMM] 45 *NA* (03/12/19 11:36 PM) VLDL 1Result Comment: The eGFR is calculated using [...] Started at ag e: 46.0; entered on: 03/12/19 1" I don't exercise , aboiut six mpnthsagoi was six hundred pounds i lost theweightbyhaving cancer" Assessment and Plan Extracted from: Title: Overnight Events Author: Shari Feliciano MD Date: 03/13/19 Patient is a 48-year-old man with PMH of multiple TIAs, obesity, DM2, HLD, atrial fibrillation, CAD, CHF, aortic dissection status post repair, factor V Leiden mutation status post IVC filter and history of DVT admitted for possible TIA versus stroke. Patient reported severe headache with left foot weakness. Was notified by nurse that patient refused MRI and refused to take Tylenol with codeine. Patient requested to be discharged from hospital. After reviewing admission and patient's symptoms on presentation I spoke to patient and explained to him the need to proceed with MRI to rule out TIA versus CVA and him not being stable for discharge at this point. Patient became very agitated and was concerned that he is not receiving methadone inpatient. He requested for me to leave his room. Proceeded to call newspaper managing editor. Patient requested to speak to me again. When I came to speak to patient he demanded to know why I would not continue methadone. Patient then became very agitated and asked if I was categorizing him as drug-seeking. I explained to patient that there are many patients with drug-seeking behavior who reported multiple drug allergies and at this point I do not feel comfortable changing my colleagues medical plan. Recommended that he try Tylenol with codeine and proceed with MRI. Patient became very agitated and aggressive threatening " to take my job by tomorrow". Unfortunately other patients nearby were also being concerned for patients agitation, and security was alerted. Of note patient also reported that he had lower extremity/foot weakness, however during his agitation he was moving all extremities spontaneously. I explained to patient that he would have to sign out AMA as he is not stable for discharge given his reported symptoms and medical history. Extracted from: Title: General Admission H&P * Author: Mo Dawson hnakant Date: 03/12/19 Impression and Plan Impression: Left lower weakness, transient, rule out TIA/CVA Chest pain evaluate for acute coronary syndrome COPD Hyperlipidemia History of DVT Factor V Leiden mutation CHF Morbid obesity History of recurrent TIAs A. fib History of type A- Aortic dissection status post repair Abdominal aortic aneurysm Question Hodgkin's lymphoma PTSD Anxiety Plan: We will admit as an observation Activity as tolerated Vitals as per unit policy. Diet plan to do dysphagia screen if patient passes then heart healthy Continue telemetry We will start on aspirin, atorvastatin Check serial cardiac enzymes We will place patient on stroke/TIA MPP Check MRI of the brain, carotid Doppler and echo Will get neurology and cardiology evaluation We will reconcile home medication when available CODE STATUS full Prognosis guarded PT/OT DVT prophylaxis Lovenox SC
--- OUTSIDE RECORDS SUMMARY | 2019-07-27 19:15 | XMS REPORT | Continuity of Care Document ---
Author Author IXcellerate ARANZA Peguero [facility] [place] Address Unknown Phone Unavailable Care Team Providers Care Carton Wrapper Name Role Phone [facility] Unavailable Un available Problems Problem Status Onset Date Classification Date Reported Comments Source Nausea with vomiting, unspecified 07/12/2019 07/14/2019 [facility] Fever, unspecified 07/12/2019 07/14/2019 [facility] SOB Active 0 07/12/2019 [facility] STROKE Active 07/10/2019 [facility] CVA Active 0 07/10/2019 [facility] ACUTE CHEST PAIN Active 03/12/2019 [facility] CHEST PAIN Active 03/12/2019 [facility] Other chest pain 01/11/2019 01/13/2019 [facility] ACUTE ISCHEMIC STROKE Active 11/08/2018 [facility] Tachycardia Active 09/05/2018 09/29/2018 [facility] Chronic obstructive pulmonary disease [facility] acute exacerbation Active 07/15/2018 09/29/2018 [facility] Atrial fibrillation Active 07/15/2018 09/29/2018 [facility] Hypokalemia Active 07/15/2018 09/29/2018 [facility] Hypocalcemia Active 07/15/2018 09/29/2018 [facility] Hypomagnesemia Active 07/15/2018 09/29/2018 [facility] Chest pain Active 07/14/2018 09/29/2018 [facility] HLD (hyperlipidemia) Active 07/14/2018 09/29/2018 [facility] Hypothyroid Active 07/14/2018 09/29/2018 [facility] Emphysema lung Active 07/14/2018 09/29/2018 [facility] DM (diabetes mellitus) Active 07/14/2018 09/29/2018 [facility] Chest pain due to coronary artery disease Active 07/07/2018 09/29/2018 [facility] Chest pain at rest Active 06/29/2018 09/29/2018 [facility] Morbid obesity with body mass index of 50 or higher Active 06/20/2018 09/29/2018 [facility] Backache (finding) Active 10/03/2010 Problem 07/14/2019 [facility] Anxiety (finding) Resolved Problem 07/14/2019 [facility] [place] Aortic aneurysm repair (procedure) Resolved Problem [facility] Bipolar I disorder (disorder) Resolved Problem [facility] [place] [facility] Cervical post-laminectomy syndrome (disorder) Resolved Problem 07/14/2019 [facility] Congestive heart failure (disorder) Active Problem [facility] Cholecystectomy (procedure) Re solved Problem [facility] Chronic obstructive lung disease (disorder) Active Problem 07/14/2019 [facility] Cerebrovascular accident (disorder) Resolved Problem [facility] Deep venous thrombosis (disorder) Active Problem [facility] Heterozygous Factor V Leiden mutation (disorder) Active Problem 07/14/2019 [facility] History of - Deep Vein Thrombosis (anny xt-dependent category) Active Prob maribel 07/14/2019 [facility] Hodgkin's disease (disorder) R esolved Problem [facility] [place] History of - CVA (context-dependent category) Active Problem 07/14/2019 [facility] History of repair of ascending aorta (situation) Active Problem 07/14/2019 [facility] Hyperlipidemia (disorder) Acti ve Problem [facility] Depressive disorder (disorder) Resolved Problem [facility] Myocardial infarction (disorder) Resolved Problem [facility] Total nephrectomy (procedure) Resolved Problem left kidney [facility] [place] Cervico-occipital neuralgia (finding) Resolved Problem 07/14/2019 [facility] [place] Pneumonia (disorder) Resolved Problem 07/14/2019 [facility] Smokes tobacco daily (finding) Active Problem [facility] Posttraumatic stress disorder (disorder) Resolved Problem 07/14/2019 [facility] Chest pain, unspecified type A ctive 09/29/2018 [facility] Angina at rest Active 09/20/2018 [facility] Acute on chronic congestive heart failur e, unspecified heart failure type Active 09/29/2018 [facility] CEREBRAL INFARCTION, UNSPECIFIED Active [facility] CHEST PAIN, UNSPECIFIED Active [facility] Medications Medication Details Route Status Patient Instructions Ordering Provider Order Date Source Spironolactone Notes: (Same As : Aldactone) Hazardous Drug Group 2:Non-antineoplastic Hazardous Drug -- Refer to safe handling procedure PPE [id number] N o Longer Active 07/12/2019 [facility] Citalopram 40 mg, 4 tab, Route : PO, Drug form: TAB, Daily, Dosing Weight 182.045, kg, Start date: 07/12/19 9:00:00 CDT, Duration: 30 day, Stop date: 08/10/19 9:00:00 CDT, 0 No Longer Active 07/12/2019 [facility] pantoprazole Notes: Tablet cruz uld not be chewed or crushed. (Same as: Protonix) N o Longer Active 07/12/2019 [facility] Trazodone Hydrochloride 100 MG Oral Tablet Route: PO, Drug form: TAB, Bedtime, Dosing Weight 182.045, kg, Start date: 07/11/19 21:00:00 CDT, Duration: 30 day, Stop date: 08/09/19 21:00:00 CDT Inactive 07/12/2019 [facility] trazodone 50 mg oral tablet No shahram: (Same As: Eligioyrel) Inactive 07/12/2019 [facility] Bupropion Notes: (Same As: Mannie stewartutrin) Inactive 07/11/2019 [facility] Acetaminophen 300 MG / Codeine Phosphate 30 MG Oral Tablet [Tylenol with Codeine #3] Notes: Do not exceed 4gm/day of acetamin ophen. (Same as: Tylenol with Codeine # 3) Inactive 07/11/2019 [facility] LORazepam 2 mg oral tablet 2 m g = 1 tab, PO, BID, PRN Anxiety, 0 Refill(s) Active 07/11/2019 [facility] Isosorbide 30 mg, 1 tab, Route : PO, Drug form: ERTAB, QAM, Dosing Weight 181.818, kg, Start date: 07/11/19 9:00:00 CDT, Duration: 30 day, Stop date: 08/09/19 9:00:00 CDT, 0 Inactive 07/11/2019 [facility] Digoxin 0.125 MG Oral Tablet 0 .125 mg, 1 tab, Route: PO, Drug form: TAB, Daily, Dosing Weight 181.818, kg, Start date: 07/11/19 9:00:00 CDT, Duration: 30 day, Stop date: 08/09/19 9:00:00 CDT, 0 Inactive 07/11/2019 [facility] Furosemide 40 MG Oral Tablet N otes: (Same as: Lasix) May cause GI upset. Give with food or milk. Inactive 07/11/2019 [facility] Saline Flush 0.9% Notes: (Same as: BD Posiflush) Inactive 07/11/2019 [facility] atorvastatin Notes: (Same as: Lipitor) No Longer Active 07/11/2019 [facility] metoprolol tartrate Notes: (Sa me as: Lopressor) No Longer Active 07/11/2019 [facility] pantoprazole 40 mg, PO, Daily, # 30 tab, 0 Refill(s) Active 07/11/2019 [facility] Ativan Notes: (Same as: Ativan) Inactive 07/10/2019 [facility] Bupropion 150 mg, PO, BID, 0 R efill(s) Active 07/10/2019 [facility] pantoprazole 40 mg intravenous injection IV, Daily, 0 Refill(s) Inactive 07/10/2019 [facility] empagliflozin 25 MG Oral Tablet [Jardiance] 25 mg = 1 tab, PO, QAM, 0 Refill(s) Inactive 07/10/2019 [facility] Furosemide 40 MG Oral Tablet [Lasix] 40 mg = 1 tab, PO, BID, # 30 tab, 0 Refill(s) Active 07/10/2019 [facility] Acetaminophen 300 MG / Codeine Phosphate 30 MG Oral Tablet [Tylenol with Codeine #3] 1 tab, PO, Q8H, # 32 tab, 0 Refill(s) Active 07/10/2019 [facility] citalopram 40 mg oral tablet 4 0 mg = 1 tab, PO, Daily, # 30 tab, 0 Refill(s) Active 07/10/2019 [facility] rivaroxaban 20 MG Oral Tablet [Xarelto] 50 mL/min Inactive 07/10/2019 [facility] Albuterol 0.833 MG/ML / Ipratropium Brom tania 0.167 MG/ML Inhalant Solution [DuoNeb] Notes: (Same as: Duoneb) No Longer Active 07/10/2019 [facility] morphine 0.5 mg/mL preservative-free inj ectable solution Notes: (Same as:MORPhine Sulfate) No Longer Active 07/10/2019 [facility] Docusate Notes: (Same as: Cola ce) (Do Not Crush) No Longer Active 07/10/2019 [facility] Xarelto Notes: (Same as: Xarel to) Administer with food No Longer Active 07/10/2019 [facility] Levetiracetam 500 MG Oral Tablet Notes: (Same as:Keppra) No Longer Active 07/10/2019 [facility] gabapentin 300 MG Oral Capsule 300 mg, 1 cap, Route: PO, Drug form: CAP, TID, Dosing Weight 181.818, kg, Start date: 07/10/19 17:00:00 CDT, Duration: 30 day, Stop date: 08/09/19 13:00:00 CDT Inactive 07/10/2019 [facility] Risperidone Notes: (Same as: R isperdal) Hazardous Drug Group 2:Non-antineoplastic Hazardous Drug -- Refer to safe handling procedure PPE Matrix No Longer Active 07/10/2019 [facility] Lorazepam Notes: (Same as: Olu [place]) No Longer Active 07/10/2019 [facility] isosorbide mononitrate 30 mg oral tablet , extended release 30 mg = 1 tab, PO, QAM, # 30 tab, 0 Refill(s) Active 07/10/2019 [facility] gabapentin 300 MG Oral Capsule 300 mg = 1 cap, PO, TID, # 90 cap, 0 Refill(s) Inactive 07/10/2019 [facility] LORazepam 2 mg oral tablet 2 m g = 1 tab, PO, BID, PRN Anxiety, # 60 tab, 0 Refill(s) Inactive 07/10/2019 [facility] 200 ACTUAT Albuterol 0.09 MG/ACTUAT Mete red Dose Inhaler [Proventil] 1 puff, INHALER, QID, PRN for wheezing, # 25 gm, 0 Refill(s) Active 07/10/2019 [facility] atorvastatin 40 mg oral tablet 40 mg = 1 tab, PO, Bedtime, # 30 tab, 0 Refill(s) Active 07/10/2019 [facility] Levetiracetam 500 MG Oral Tablet 1,000 mg = 2 tab, PO, BID, # 120 tab, 0 Refill(s) Inactive 07/10/2019 [facility] risperiDONE 2 mg oral tablet 2 mg = 1 tab, PO, BID, # 60 tab, 0 Refill(s) Active 07/10/2019 [facility] spironolactone 50 mg oral tablet 50 mg = 1 tab, PO, Daily, # 60 tab, 0 Refill(s) Inactive 07/10/2019 [facility] Furosemide 40 MG Oral Tablet 4 0 mg = 1 tab, PO, Daily, # 30 tab, 0 Refill(s) Inactive 07/10/2019 [facility] Metoprolol Tartrate 25 mg oral tablet 25 mg = 1 tab, PO, BID, # 60 tab, 0 Refill(s) Active 07/10/2019 [facility] Digoxin 0.125 MG Oral Tablet 0 .125 mg, PO, Daily, # 30 tab, 0 Refill(s) Active 07/10/2019 [facility] Trazodone Hydrochloride 100 MG Oral Tablet See Instructions, 2 tab PO Bedtime 30 day, 0 Refill(s) Active 07/10/2019 [facility] rivaroxaban 20 MG Oral Tablet [Xarelto] 50 mL/min Active 07/10/2019 [facility] Dextrose 50% Syringe (D50W) 12 .5 gm, 25 mL, Route: IVP, Drug Form: INJ, Dosing Weight 181.818, kg, PRN, PRN Blood Glucose Results, Start date: 07/10/19 16:03:00 CDT, Duration: 30 day, Stop date: 08/09/19 16:02:00 CDT, 0 No Longer Active 07/10/2019 [facility] Glucagon 1 mg, Route: IM, Drug form: PDR/INJ, PRN, Dosing Weight 181.818, kg, PRN Blood Glucose Results, Start date: 07/10/19 16:03:00 CDT, Duration: 30 day, Stop date: 08/09/19 16:02:00 CDT, 0 No Longer Active 07/10/2019 [facility] Insulin Lispro Notes: (Same as : Humalog) Roll in palms of hands gently; Do not shake vigorously. WASTE: F/P - Black; E - Municipal Trash Bin Stable for 28 days at room temperature. Expires in days from Date No Longer Active 07/10/2019 [facility] Saline Flush 0.9% Notes: (Same as: BD Posiflush) Inactive 07/10/2019 [facility] Dextrose 50% Syringe (D50W) 25 mL, Route: IVP, Dosing Weight 181.818, kg, PRN, PRN Blood Glucose Results, Start date: 07/10/19 15:59:00 CDT, Duration: 30 day, Stop date: 08/09/19 15:58:00 CDT Inactive 07/10/2019 [facility] Glucagon 1 mg, Route: IM, PRN, Dosing Weight 181.818, kg, PRN Blood Glucose Results, Start date: 07/10/19 15:59:00 CDT, Duration: 30 day, Stop date: 08/09/19 15:58:00 CDT Inactive 07/10/2019 [facility] POLYETHYLENE GLYCOL 3350 Notes : Dissolve in 8 oz of water or juice. (Same as: Miralax) No Longer Active 07/10/2019 [facility] Bisacodyl Notes: (Same As: Dul colax, Bisco-Lax) No Longer Active 07/10/2019 [facility] Melatonin Notes: (Same as: Marge atonin) No Longer Active 07/10/2019 [facility] Hydralazine Notes: (Same as: A presoline) Push over 5 minutes No Longer Active 07/10/2019 [facility] Aspirin Notes: (Do Not Crush) Do not crush or chew. Inactive 07/10/2019 [facility] Saline Flush 0.9% Notes: (Same as: BD Posiflush) Inactive 07/10/2019 [facility] Aspirin 81 MG Enteric Coated Tablet Notes: Do not crush or chew. (Same As: Ecotrin) Inactive 03/13/2019 [facility] Ativan Notes: (Same as: Ativan) Inactive 03/13/2019 [facility] Acetaminophen 300 MG / Codeine Phosphate 30 MG Oral Tablet [Tylenol with Codeine #3] Notes: Do not exceed 4gm/day of acetamin ophen. (Same as: Tylenol with Codeine # 3) Inactive 03/13/2019 [facility] Famotidine Notes: (Same as: Pe pcid) No Longer Active 03/13/2019 [facility] atorvastatin Notes: (Same as: Lipitor) No Longer Active 03/13/2019 [facility] Saline Flush 0.9% Notes: prese rvative free. No Longer Active 03/13/2019 [facility] methadone 10 mg oral tablet 10 mg = 1 tab, PO, BID, 0 Refill(s) Active 03/13/2019 [facility] pregabalin 100 MG Oral Capsule [Lyrica] 100 mg = 1 cap, PO, TID, # 90 cap, 0 Refill(s) Active 03/13/2019 [facility] Risperdal PO, Daily, 0 Refill( s) Active 03/13/2019 [facility] Enoxaparin Notes: (Same as: Lo venox) No Longer Active 03/13/2019 [facility] Saline Flush 0.9% Notes: prese rvative free. No Longer Active 03/13/2019 [facility] NS (Bolus) IV 1,000 mL, 1,000 ml/hr, Infuse Over: 1 hr, Route: IV, 1,000, Drug form: INJ, ONCE, Priority: STAT, Dosing Weight 187.727 kg, Start date: 03/12/19 16:58:00 MDM SR, Stop date: 03/12/19 16:58:00 MDM SR, 0 Inactive 03/12/2019 [facility] Tylenol 650 mg, Route: PO, Dale g form: TAB, ONCE, Dosing Weight 187.727, kg, Priority: STAT, Start date: 03/12/19 16:58:00 MDM SR, Stop date: 03/12/19 16:58:00 MDM SR Inactive 03/12/2019 [facility] Benadryl Notes: (Same as: Catalina dryl) Inactive 03/12/2019 [facility] Compazine Notes: (Same as: Com pazine) Inactive 03/12/2019 [facility] Aspirin 324 mg, Route: CHEW, D rug form: CHEWTAB, ONCE, Dosing Weight 187.727, kg, Priority: STAT, Start date: 03/12/19 16:04:00 MDM SR, Stop date: 03/12/19 16:04:00 MDM SR Inactive 03/12/2019 [facility] Morphine 4 mg, Route: IVP, ONC E, Dosing Weight 185.455, kg, Priority: STAT, Start date: 01/11/19 16:17:00 MDM SR, Stop date: 01/11/19 16:17:00 MDM SR Inactive 01/11/2019 [facility] Iohexol 100 mL, Route: IVP, Dr henderson Form: SOLN, Dosing Weight 185.455, kg, ONCALL, STAT, Start date: 01/11/19 16:06:00 MDM SR, Duration: 1 doses or times, Dose = 2.2ml/kg, Max dose = 100ml -- "To be infused by Ra diology Staff ONLY" Inactive 01/11/2019 [facility] Morphine Notes: (Same as:MORPh ine Sulfate) Inactive 01/11/2019 [facility] atorvastatin 40 mg oral tablet 80 mg = 2 tab, PO, Bedtime, # 90 tab, 0 Refill(s), Pharmacy: [id number] Active 11/11/2018 [facility] rivaroxaban 20 mg oral tablet 20 mg = 1 tab, PO, QPM, # 90 tab, 0 Refill(s), Pharmacy: [id number] Active 11/11/2018 [facility] Insulin Lispro 10 unit, SUB-Q, TID-Before Meals, 0 Refill(s) Inactive 11/11/2018 [facility] Lyrica Notes: (Same as: Lyrica) Inactive 11/11/2018 [facility] Insulin Glargine 100 UNT/ML Injectable S olution [Lantus] Notes: (Same as: Lantus) Do not hold ins ulin without contacting prescriber WASTE: F/P - Black; E - Municipal Trash Bin "single patient use only" Stable for 28 days at room temperature Expires in days from Date Inactive 11/11/2018 [facility] 3 ML Insulin Glargine 100 UNT/ML Prefill ed Syringe [Lantus] Notes: (Same as: Lantus) Do not hold ins ulin without contacting prescriber WASTE: F/P - Black; E - Municipal Trash Bin "single patient use only" Stable for 28 days at room temperature Expires in days from Date No Longer Active 11/11/2018 [facility] Acetaminophen Notes: Do not ex ceed 4 gm/day. (Same as: Tylenol) Inactive 11/11/2018 [facility] Insulin Glargine 100 UNT/ML Injectable S olution [Lantus] 20 unit, SUB-Q, Bedtime, # 10 mL, 3 Refill(s) Active 11/11/2018 [facility] nt atorvastatin 40 mg oral tablet 80 mg = 2 tab, PO, Bedtime, # 90 tab, 0 Refill(s), Pharmacy: [facility] #[id number] No Longer Active 11/10/2018 [facility] rivaroxaban 20 mg oral tablet 20 mg = 1 tab, PO, QPM, # 90 tab, 0 Refill(s), Pharmacy: [facility] #[id number] No Longer Active 11/10/2018 [facility] Digoxin 0.125 MG Oral Tablet N otes: Take on an Empty Stomach (Same as: Lanoxin) No Longer Active 11/10/2018 [facility] nter 24 HR Metoprolol Tartrate 25 MG Extended Release Tablet [Toprol] Notes: (Same as: Toprol XL) Do Not Crush No Longer Active 11/10/2018 [facility] Spironolactone Notes: (Same As : Aldactone) No Longer Active 11/10/2018 [facility] Dextrose 50% Syringe 12.5 gm, 25 mL, Route: IVP, Drug Form: INJ, Dosing Weight 190, kg, PRN, PRN Blood Glucose Results, Start date: 11/10/18 6:22:00 CDT, Duration: 30 day, Stop date: 12/10/18 6:21:00 CDT, 0 No Longer Active 11/10/2018 [facility] Glucagon 1 mg, Route: IM, Drug form: PDR/INJ, PRN, Dosing Weight 190, kg, PRN Blood Glucose Results, Start date: 11/10/18 6:22:00 CDT, Duration: 30 day, Stop date: 12/10/18 6:21:00 CDT, 0 No Longer Active 11/10/2018 [facility] Insulin Lispro Notes: (Same as : Humalog) Roll in palms of hands gently; Do not shake vigorously. WASTE: F/P - Black; E - Municipal Trash Bin Stable for 28 days at room temperature. Expires in days from Date No Longer Active 11/10/2018 [facility] nter atorvastatin Notes: (Same as: Lipitor) No Longer Active 11/10/2018 [facility] Trazodone Notes: (Same As: Eligio yrel) No Longer Active 11/10/2018 [facility] Xarelto Notes: (Same as: Xarel to) Administer with food No Longer Active 11/09/2018 [facility] lamoTRIgine 25 mg oral tablet Notes: (Same as:LaMICtal) No Longer Active 11/09/2018 [facility] Furosemide 40 MG Oral Tablet [Lasix] Notes: (Same as: Lasix) May cause GI upset. Give with food or milk. No Longer Active 11/09/2018 [facility] Potassium Chloride 1.33 MEQ/ML Oral Solution Notes: (Same as: Potassium Chloride) Inactive 11/09/2018 [facility] nter Macrobid Notes: Not recommende d for patients with CrCl<30 ml/min (Same as:Macrobid) With food. No Longer Active 11/09/2018 [facility] Nitrofurantoin 100 mg, Route: PO, TID, Dosing Weight 190, kg, Start date: 11/09/18 13:00:00 CDT, Duration: 30 day, Stop date: 12/09/18 9:00:00 CDT Inactive 11/09/2018 [facility] metoprolol tartrate 25 mg oral tablet 25 mg = 1 tab, PO, BID, # 60 tab, 0 Refill(s) Active 11/09/2018 [facility] nter lamoTRIgine 25 mg oral tablet 25 mg = 1 tab, PO, BID, # 60 tab, 0 Refill(s) Active 11/09/2018 [facility] Furosemide 40 MG Oral Tablet [Lasix] 40 mg = 1 tab, PO, BID, 0 Refill(s) Active 11/09/2018 [facility] Ranexa 500 mg, PO, BID, 0 Refi ll(s) Active 11/09/2018 [facility] empagliflozin 25 MG Oral Tablet [Jardiance] 25 mg = 1 tab, PO, QAM, 0 Refill(s) Active 11/09/2018 [facility] nter spironolactone 50 mg oral tablet 50 mg = 1 tab, PO, Daily, # 30 tab, 1 Refill(s) Active 11/09/2018 [facility] nter isosorbide mononitrate 30 mg oral tablet , extended release 30 mg = 1 tab, PO, QAM, # 30 tab, 0 Refill(s) Active 11/09/2018 [facility] nter Digoxin 0.125 MG Oral Tablet 1 25 microgram = 1 tab, PO, Daily, # 30 tab, 0 Refill(s) Active 11/09/2018 [facility] nter trazodone 150 mg oral tablet 1 50 mg = 1 tab, PO, Bedtime, # 30 tab, 0 Refill(s) Active 11/09/2018 [facility] nter Saline Flush 0.9% Notes: Same as: BD Posiflush Sterile No Longer Active 11/09/2018 [facility] Docusate Sodium 50 MG / sennosides, [facility]IOR [facility] 8.6 MG Oral Tablet Notes: (Same as Senokot-S) Equiv. to Marjorie-Colace. No Longer Active 11/09/2018 [facility] Plavix Notes: (Same As: Plavix) Inactive 11/09/2018 [facility] Levetiracetam 500 MG Oral Tablet [Keppra] Notes: (Same as:Keppra) Inactive 11/09/2018 [facility] Aspirin 325 MG Enteric Coated Tablet Notes: (Do Not Crush) Do not crush or chew. Inactive 11/09/2018 [facility] nter Promethazine Notes: . (Same a s: Phenergan) Inactive 11/09/2018 [facility] Morphine Notes: (Same as:MORPh ine Sulfate) Inactive 11/09/2018 [facility] heparin sodium, porcine 2500 UNT/ML Injectable Solutio n Notes: porcine heparin Inactiv e 11/09/2018 [facility] Aspirin 325 MG Enteric Coated Tablet Notes: (Do Not Crush) Do not crush or chew. No Longer Active 11/09/2018 [facility] nter Isolyte S PH-7.4 (Bolus) IV No shahram: (Same as: Isolyte S PH 7.4) Inactive 11/09/2018 [facility] Sodium Chloride 0.9% IV 1,000 mL 1,000 mL, Rate: 75 ml/hr, Infuse over: 13.3 hr, Route: IV, Total Volume: 1,000, Start date: 11/08/18 21:04:00 CDT, Duration: 30 day, Stop date: 12/08/18 21:03:00 CDT, 0 No Longer Active 11/09/2018 [facility] Saline Flush 0.9% Notes: Same as: BD Posiflush Sterile No Longer Active 11/09/2018 [facility] Labetalol 10 mg, 2 mL, Route: IVP, Drug form: INJ, Q15Min, kg, PRN Hypertension, Start date: 11/08/18 21:04:00 CDT, Duration: 30 day, Stop date: 12/08/18 21:03:00 CDT, 0 No Longer Active 11/09/2018 [facility] nter Hydralazine Notes: (Same as: A presoline) Push over 5 minutes No Longer Active 11/09/2018 [facility] Saline Flush 0.9% Notes: Same as: BD Posiflush Sterile No Longer Active 11/09/2018 [facility] furosemide 40 mg tablet Take 2 tablets by mouth every morning and evening. Oral Active 09/29/2018 [facility] carisoprodol 350 mg tablet Andriy e 350 mg by mouth every 8 (eight) hours as needed. Oral No Longer Active 09/20/2018 [facility] multivit with iron,minerals (GENERIX T ORAL) Take 30 mL by mouth 2 (two) times daily as needed. Oral No Longer Active 09/20/2018 [facility] metoprolol tartrate 25 mg tablet Take 25 mg by mouth 2 (two) times daily. Oral No Longer Active 09/20/2018 [facility] ALPRAZolam (XANAX) 2 mg tablet Take 2 mg by mouth 2 (two) times daily as needed for Anxiety. Oral No Longer Active 09/20/2018 [facility] clopidogrel 75 mg tablet Take 75 mg by mouth daily. Oral No Longer Active 09/20/2018 [facility] metoprolol tartrate 50 mg tablet Take 1 tablet by mouth 2 (two) times daily for 30 days. Oral Active 09/20/2018 [facility] atorvastatin 80 mg tablet Take 1 tablet by mouth every evening. Oral Active 07/15/2018 [facility] insulin glargine 100 unit/mL injection inject 20 Units under the skin every 12 (twelve) hours. Subcutaneous Active 07/15/2018 [facility] furosemide 40 mg tablet Take 1 tablet by mouth 3 (three) times daily. Oral No Longer Active 07/09/2018 [facility] DULoxetine 20 mg capsule Take 40 mg by mouth 2 (two) times daily. Oral Active [facility] isosorbide mononitrate 30 mg 24 hr tablet Take 30 mg by mouth daily. Oral Active [facility] levETIRAcetam (KEPPRA) 500 mg tablet Take 500 mg by mouth 2 (two) times daily. Oral Active [facility] lamotrigine (LAMICTAL ORAL) Ta ke 25 mg by mouth 2 (two) times daily. Oral Active [facility] pregabalin (LYRICA) 100 mg capsule Take 100 mg by mouth 2 (two) times daily. Oral Active [facility] meloxicam (MOBIC) 15 mg tablet Take 15 mg by mouth as needed for Inflammation. Oral Active [facility] pantoprazole 20 mg EC tablet T vijaya 40 mg by mouth daily. Oral Active [facility] homeopathic drugs (RENEEL ORAL) Take by mouth. Oral Active [facility] risperiDONE (RISPERDAL) 0.5 mg tablet Take 0.5 mg by mouth 2 (two) times daily. Oral Active [facility] doxepin 100 mg capsule Take 10 0 mg by mouth at bedtime. Oral Active [facility] traZODone 150 mg tablet Take 1 50 mg by mouth at bedtime. Oral Active [facility] Hyoscyamine Sulfate (ANASPAZ) 0.125 mg TbDL Take 0.125 mg by mouth every 4 (four) hours as needed. Oral Active [facility] carisoprodol 350 mg tablet Andriy e 350 mg by mouth every 8 (eight) hours as needed. Oral Active [facility] cyclobenzaprine HCl (FLEXERIL ORAL) Take 10 mg by mouth every 8 (eight) hours as needed. Oral Active [facility] multivit with iron,minerals (GENERIX T ORAL) Take 30 mL by mouth 2 (two) times daily as needed. Oral Active [facility] hydrOXYzine 50 mg capsule Take 50 mg by mouth 3 (three) times daily as needed for Anxiety. Oral Active [facility] albuterol (PROAIR HFA) 90 mcg/actuation inhaler Inhale 2 Puffs every 6 (six) hours as needed for Wheezing or Shortness of Breath. Inhalation Active [facility] [employer] proMETHazine 25 mg tablet Take 25 mg by mouth every 6 (six) hours as needed. Oral Active [facility] [employer] metoprolol tartrate 25 mg tablet Take 25 mg by mouth 2 (two) times daily. Oral Active [facility] [employer] ALPRAZolam (XANAX) 2 mg tablet Take 2 mg by mouth 2 (two) times daily as needed for Anxiety. Oral Active [facility] [employer] aspirin 81 mg chewable tablet Take 81 mg by mouth daily. Oral Active [facility] [employer] digoxin 125 mcg tablet Take 0. 125 mg by mouth daily. Oral Active [facility] [employer] insulin lispro (HUMALOG KWIKPEN INSULIN SC) inject under the skin before meals as needed (150-200 blood glucose - 4 units; 201-300 blood glucose - 6 units; 301-400 blood glucose - 8 units; 401 and above blood glucose call MD). Subcutaneous Active [facility] [employer] KCL 10 mEq tablet Take 10 mEq by mouth 2 (two) times daily. Oral Active [facility] [employer] metFORMIN 1,000 mg tablet Take 1,000 mg by mouth 2 (two) times daily with meals. Oral Active [facility] [employer] spironolactone 50 mg tablet Ta ke 50 mg by mouth daily. Oral Active [facility] [employer] rivaroxaban (XARELTO) 20 mg tablet Take 20 mg by mouth every evening. Oral Active [facility] [employer] Carisoprodol 250 mg tablet Andriy e 250 mg by mouth every 8 (eight) hours as needed (Muscle spasm). Oral Active [facility] [employer] nitroglycerin 0.[address] 0.4 mg under the tongue every 5 (five) minutes as needed for Chest pain. Sublingual Active [facility] [employer] Loperamide HCl (IMODIUM A-D) 2 mg Tab tablet Take 2 mg by mouth 4 (four) times daily as needed for Other (Diarrhea). Oral Active [facility] [employer] lactulose 10 gram/15 mL oral solution Take 30 mL by mouth 2 (two) times daily as needed for Constipation. [facility] mg tablet Take 1 m g by mouth 3 (three) times daily. Oral Active [facility] [employer] Allergies, Adverse Reactions, Alerts Substance Category Reaction Severity Reaction type Status Date Reported Comments Source Ampicillin Unknown - See comments Propensity to adverse reactions Active 06/19/2018 [facility] Gabapentin Unknown - See comments Propensity to adverse reactions Active 06/19/2018 [facility] Metoclopramide Hcl Unknown - See comments Propensity to adverse reactions Active 06/19/2018 [facility] Ondansetron Hcl (Pf) Itching Propensity to adverse reacti ons Active 06/19/2018 [facility] Hydrocodone-Acetaminophen Other - See comments Propensity to adverse reactions Active 07/07/2018 [facility] Tramadol Un known - See comments High Drug Allergy Active 07/07/2018 [facility] Ketorolac Tromethamine Hives Propensity to adverse reacti ons Active 09/19/2018 [facility] ampicillin Assertion Drug allergy Active [facility] Toradol Assertion Drug allergy Active [facility] Zofran Assertion hives Drug allergy Active [facility] Neurontin Assertion Drug allergy Active [facility] Reglan Assertion Drug allergy Active [facility] [place] Assertion Drug allergy Active [facility] Paper Tape Assertion Drug allergy Active [facility] traMADol Assertion Drug allergy Active [facility] Immunizations Immunization Date Given Site Status Last Updated Comments Source pneumococcal 23-valent vaccine 04/18/2018 Left Deltoid completed Jitendra [facility] pneumococcal 23-valent vaccine 10/02/2016 Not Given [facility] pneumococcal 23-valent vaccine<sup>1</sup> 01/06/2016 Not Given [facility] influenza virus vaccine, inactivated 02/03/2015 Not Given [facility] Results Order Name Results Value Reference Range Date Interpretation Comments Source CARDIAC ENZYMES Troponin-I <0.02 0.00 - 0.40 07/12/2019 [facility] CHEM PANEL Glucose Lvl 156 70 - 99 07/12/2019 [facility] CHEM PANEL BUN 15 7 - 22 07/12/2019 [facility] CHEM PANEL Creatinine Lvl 1.08 0.50 - 1.40 07/12/2019 [facility] CHEM PANEL Sodium Lvl 136 135 - 145 07/12/2019 [facility] CHEM PANEL Potassium Lvl 3.6 3.5 - 5.1 07/12/2019 [facility] CHEM PANEL Chloride Lvl 102 95 - 109 07/12/2019 [facility] CHEM PANEL CO2 28 24 - 32 07/12/2019 [facility] CHEM PANEL Calcium Lvl 9.2 8.5 - 10.5 07/12/2019 [facility] CHEM PANEL Total Protein 7.4 6.4 - 8.4 07/12/2019 [facility] CHEM PANEL Albumin Lvl 3.4 3.5 - 5.0 07/12/2019 [facility] CHEM PANEL ALT 35 0 - 65 07/12/2019 [facility] CHEM PANEL AST 25 0 - 37 07/12/2019 [facility] CHEM PANEL Alk Phos 104 39 - 136 07/12/2019 [facility] CHEM PANEL Bili Total 0.5 0.2 - 1.3 07/12/2019 [facility] CHEM PANEL AGAP 9.6 10.0 - 20.0 07/12/2019 [facility] CHEM PANEL B/C Ratio 14 6 - 25 07/12/2019 [facility] CHEM PANEL Globulin 4.0 2.7 - 4.2 07/12/2019 [facility] CHEM PANEL A/G Ratio 0.8 0.7 - 1.6 07/12/2019 [facility] CHEM PANEL eGFR 80 07/12/2019 Result Comment: The eGFR is calculated using the [...] from the National Kidney Disease Education Program (NKDEP) which additionally recommends that when the eGFR is used in patients with extremes of body mass index for purposes of drug dosing, the eGFR should be multiplied by the estimated BMI. [facility] CHEM PANEL Lactic Acid Lvl 1.5 0.5 - 2.2 07/12/2019 [facility] CHEM PANEL Procalcitonin Lvl 0.24 0.00 - 0.10 07/12/2019 [facility] HEMATOLOGY WBC 10.0 3.7 - 10.4 07/12/2019 [facility] HEMATOLOGY RBC 4.55 4.70 - 6.10 07/12/2019 [facility] HEMATOLOGY Hgb 14.0 14.0 - 18.0 07/12/2019 [facility] HEMATOLOGY Hct 40.6 42.0 - 54.0 07/12/2019 [facility] HEMATOLOGY MCV 89.3 80.0 - 94.0 07/12/2019 [facility] HEMATOLOGY MCH 30.7 27.0 - 31.0 07/12/2019 [facility] HEMATOLOGY MCHC 34.4 32.0 - 36.0 07/12/2019 [facility] HEMATOLOGY RDW 14.3 11.5 - 14.5 07/12/2019 [facility] HEMATOLOGY Platelet 197 133 - 450 07/12/2019 [facility] HEMATOLOGY MPV 7.9 7.4 - 10.4 07/12/2019 [facility] HEMATOLOGY Segs 80.4 45.0 - 75.0 07/12/2019 [facility] HEMATOLOGY Lymphocytes 12.2 20.0 - 40.0 07/12/2019 [facility] HEMATOLOGY Monocytes 6.2 2.0 - 12.0 07/12/2019 [facility] HEMATOLOGY Eosinophils 0.9 0.0 - 4.0 07/12/2019 [facility] HEMATOLOGY Basophils 0.3 0.0 - 1.0 07/12/2019 [facility] HEMATOLOGY Neutrophils # 8.1 1.5 - 8.1 07/12/2019 [facility] HEMATOLOGY Lymphocytes # 1.2 1.0 - 5.5 07/12/2019 [facility] HEMATOLOGY Monocytes # 0.6 0.0 - 0.8 07/12/2019 [facility] HEMATOLOGY Eosinophils # 0.1 0.0 - 0.5 07/12/2019 [facility] CHEM PANEL Glucose Lvl 184 70 - 99 07/11/2019 [facility] CHEM PANEL BUN 13 7 - 22 07/11/2019 [facility] CHEM PANEL Creatinine Lvl 1.05 0.50 - 1.40 07/11/2019 [facility] CHEM PANEL Sodium Lvl 137 135 - 145 07/11/2019 [facility] CHEM PANEL Potassium Lvl 3.5 3.5 - 5.1 07/11/2019 [facility] CHEM PANEL Chloride Lvl 104 95 - 109 07/11/2019 [facility] CHEM PANEL CO2 29 24 - 32 07/11/2019 [facility] CHEM PANEL AGAP 7.5 10.0 - 20.0 07/11/2019 [facility] CHEM PANEL Calcium Lvl 8.3 8.5 - 10.5 07/11/2019 [facility] CHEM PANEL B/C Ratio 12 6 - 25 07/11/2019 [facility] CHEM PANEL Total Protein 6.2 6.4 - 8.4 07/11/2019 [facility] CHEM PANEL Albumin Lvl 3.0 3.5 - 5.0 07/11/2019 [facility] CHEM PANEL Globulin 3.2 2.7 - 4.2 07/11/2019 [facility] CHEM PANEL A/G Ratio 0.9 0.7 - 1.6 07/11/2019 [facility] CHEM PANEL ALT 29 0 - 65 07/11/2019 [facility] CHEM PANEL AST 16 0 - 37 07/11/2019 [facility] CHEM PANEL Alk Phos 76 39 - 136 07/11/2019 [facility] CHEM PANEL Bili Total 0.5 0.2 - 1.3 07/11/2019 [facility] CHEM PANEL eGFR 83 07/11/2019 Result Comment: The eGFR is calculated using the [...] from the National Kidney Disease Education Program (NKDEP) which additionally recommends that when the eGFR is used in patients with extremes of body mass index for purposes of drug dosing, the eGFR should be multiplied by the estimated BMI. [facility] HEMATOLOGY Segs 73.9 45.0 - 75.0 07/11/2019 [facility] HEMATOLOGY Lymphocytes 16.8 20.0 - 40.0 07/11/2019 [facility] HEMATOLOGY Monocytes 7.4 2.0 - 12.0 07/11/2019 [facility] HEMATOLOGY Eosinophils 1.4 0.0 - 4.0 07/11/2019 [facility] HEMATOLOGY Basophils 0.5 0.0 - 1.0 07/11/2019 [facility] HEMATOLOGY Neutrophils # 4.1 1.5 - 8.1 07/11/2019 [facility] HEMATOLOGY Lymphocytes # 0.9 1.0 - 5.5 07/11/2019 [facility] Monocytes # 0.4 0.0 - 0.8 07/11/2019 [facility] HEMATOLOGY Eosinophils # 0.1 0.0 - 0.5 07/11/2019 [facility] HEMATOLOGY WBC 5.6 3.7 - 10.4 07/11/2019 [facility] HEMATOLOGY RBC 4.22 4.70 - 6.10 07/11/2019 [facility] HEMATOLOGY Hgb 13.0 14.0 - 18.0 07/11/2019 [facility] HEMATOLOGY Hct 38.1 42.0 - 54.0 07/11/2019 [facility] HEMATOLOGY MCV 90.2 80.0 - 94.0 07/11/2019 [facility] HEMATOLOGY MCH 30.8 27.0 - 31.0 07/11/2019 [facility] HEMATOLOGY MCHC 34.1 32.0 - 36.0 07/11/2019 [facility] HEMATOLOGY RDW 14.2 11.5 - 14.5 07/11/2019 [facility] HEMATOLOGY Platelet 160 133 - 450 07/11/2019 [facility] HEMATOLOGY MPV 7.8 7.4 - 10.4 07/11/2019 [facility] CHEM PANEL Procalcitonin Lvl 0.12 0.00 - 0.10 07/10/2019 [facility] LIPIDS Trig 226 <=149 mg/dL 07/10/2019 [facility] LIPIDS Chol 196 <=199 mg/dL 07/10/2019 [facility] LIPIDS HDL 32 >=61 mg/dL 07/10/2019 [facility] LIPIDS CHD Risk 6.12 4.00 - 7.30 07/10/2019 [facility] LIPIDS LDL (Calculated) 119 <=99 mg/dL 07/10/2019 [facility] LIPIDS VLDL 45 07/10/2019 [facility] SPECIAL CHEMISTRY Hgb A1C 6.2 <=5.6 % 07/10/2019 [facility] URINE AND STOOL UA Color Yellow *NA* (07/10/19 5:11 PM) Yellow 07/10/2019 [facility] URINE AND STOOL UA Turbidity Clear (07/10/19 5:11 PM) Clear 07/10/2019 [facility] URINE AND STOOL UA Spec Grav 1.030 <=1.030 07/10/2019 [facility] URINE AND STOOL UA pH 6.0 5.0 - 8.0 07/10/2019 [facility] URINE AND STOOL UA Protein Negative mg/dL Negative mg/dL 07/10/2019 [facility] URINE AND STOOL UA Glucose 150 mg/dL Negative mg/dL 07/10/2019 [facility] URINE AND STOOL UA Ketones Negative mg/dL Negative mg/dL 07/10/2019 [facility] URINE AND STOOL UA Bili Negative *NA* (07/10/19 5:11 PM) Negative 07/10/2019 [facility] URINE AND STOOL UA Blood Negative (07/10/19 5:11 PM) Negative 07/10/2019 [facility] URINE AND STOOL UA Nitrite Negative (07/10/19 5:11 PM) Negative 07/10/2019 [facility] URINE AND STOOL UA Leuk Est Negative (07/10/19 5:11 PM) Negative 07/10/2019 [facility] URINE AND STOOL UA Sq Epi Occasional /LPF Few /LPF 07/10/2019 [facility] URINE AND STOOL UA WBC <1 0 - 5 07/10/2019 [facility] URINE AND STOOL UA RBC 2 0 - 2 07/10/2019 [facility] URINE AND STOOL UA Urobilinogen <=1.0 mg/dL 0.1 - 1.0 07/10/[address] [facility] [address] CARDIAC ENZYMES Total CK 207 12 - 191 07/10/2019 [facility] CARDIAC ENZYMES Troponin-I <0.02 0.00 - 0.40 07/10/2019 [facility] CHEM PANEL Glucose Lvl 131 70 - 99 07/10/2019 [facility] CHEM PANEL BUN 14 7 - 22 07/10/2019 [facility] CHEM PANEL Creatinine Lvl 1.05 0.50 - 1.40 07/10/2019 [facility] CHEM PANEL Sodium Lvl 134 135 - 145 07/10/2019 [facility] CHEM PANEL Potassium Lvl 3.6 3.5 - 5.1 07/10/2019 [facility] CHEM PANEL Chloride Lvl 101 95 - 109 07/10/2019 [facility] CHEM PANEL CO2 26 24 - 32 07/10/2019 [facility] CHEM PANEL Calcium Lvl 8.9 8.5 - 10.5 07/10/2019 [facility] CHEM PANEL AGAP 10.6 10.0 - 20.0 07/10/2019 [facility] CHEM PANEL eGFR 83 07/10/2019 Result Comment: The eGFR is calculated using the [...] from the National Kidney Disease Education Program (NKDEP) which additionally recommends that when the eGFR is used in patients with extremes of body mass index for purposes of drug dosing, the eGFR should be multiplied by the estimated BMI. [facility] HEMATOLOGY WBC 13.2 3.7 - 10.4 07/10/2019 [facility] HEMATOLOGY RBC 4.67 4.70 - 6.10 07/10/2019 [facility] HEMATOLOGY Hgb 14.3 14.0 - 18.0 07/10/2019 [facility] HEMATOLOGY Hct 41.7 42.0 - 54.0 07/10/2019 [facility] HEMATOLOGY MCV 89.3 80.0 - 94.0 07/10/2019 [facility] MCH 30.7 27.0 - 31.0 07/10/2019 [facility] MCHC 34.4 32.0 - 36.0 07/10/2019 [facility] HEMATOLOGY RDW 14.3 11.5 - 14.5 07/10/2019 [facility] Platelet 203 133 - 450 07/10/2019 [facility] MPV 7.9 7.4 - 10.4 07/10/2019 [facility] PT 13.4 12.0 - 14.7 07/10/2019 [facility] INR 1.02 0.85 - 1.17 07/10/2019 [facility] PTT 31.6 22.9 - 35.8 07/10/2019 [facility] Segs 86.2 45.0 - 75.0 07/10/2019 [facility] Lymphocytes 8.0 20.0 - 40.0 07/10/2019 [facility] Monocytes 4.7 2.0 - 12.0 07/10/2019 [facility] HEMATOLOGY Eosinophils 0.8 0.0 - 4.0 07/10/2019 [facility] HEMATOLOGY Basophils 0.3 0.0 - 1.0 07/10/2019 [facility] HEMATOLOGY Neutrophils # 11.3 1.5 - 8.1 07/10/2019 [facility] HEMATOLOGY Lymphocytes # 1.1 1.0 - 5.5 07/10/2019 [facility] HEMATOLOGY Monocytes # 0.6 0.0 - 0.8 07/10/2019 [facility] HEMATOLOGY Eosinophils # 0.1 0.0 - 0.5 07/10/2019 [facility] TOXICOLOGY Digoxin Lvl 0.2 0.8 - 2.0 07/10/2019 [facility] URINE AND STOOL UA Turbidity Clear (03/13/19 7:08 AM) Clear 03/13/2019 [facility] URINE AND STOOL UA Spec Grav 1.022 <=1.030 03/13/2019 [facility] URINE AND STOOL UA pH 6.0 5.0 - 8.0 03/13/2019 [facility] URINE AND STOOL UA Protein Negative mg/dL Negative mg/dL 03/13/[address] [facility] [address] URINE AND STOOL UA Glucose 500 mg/dL Negative mg/dL 03/13/2019 [facility] URINE AND STOOL UA Ketones Negative mg/dL Negative mg/dL 03/13/2019 [facility] URINE AND STOOL UA Bili Negative *NA* (03/13/19 7:08 AM) Negative 03/13/2019 [facility] URINE AND STOOL UA Blood Negative (03/13/19 7:08 AM) Negative 03/13/2019 [facility] URINE AND STOOL UA Nitrite Negative (03/13/19 7:08 AM) Negative 03/13/2019 [facility] URINE AND STOOL UA Leuk Est Negative (03/13/19 7:08 AM) Negative 03/13/2019 [facility] URINE AND STOOL UA WBC 1 0 - 5 03/13/2019 [facility] URINE AND STOOL UA RBC <1 0 - 2 03/13/2019 [facility] URINE AND STOOL UA Sq Epi None Seen 03/13/2019 [facility] URINE AND STOOL UA Color Ltyellow 03/13/2019 [facility] URINE AND STOOL UA Urobilinogen <=1.0 mg/dL 0.1 - 1.0 03/13/2019 [facility] CARDIAC ENZYMES Troponin-I <0.02 0.00 - 0.40 03/13/2019 [facility] CARDIAC ENZYMES Troponin-I <0.02 0.00 - 0.40 03/13/2019 [facility] LIPIDS Trig 223 <=149 mg/dL 03/13/2019 [facility] LIPIDS Chol 131 <=199 mg/dL 03/13/2019 [facility] LIPIDS HDL 24 >=61 mg/dL 03/13/2019 [facility] LIPIDS CHD Risk 5.46 4.00 - 7.30 03/13/2019 [facility] LIPIDS LDL (Calculated) 62 <=99 mg/dL 03/13/2019 [facility] LIPIDS VLDL 45 03/13/2019 [facility] SPECIAL CHEMISTRY Hgb A1C 6.7 <=5.6 % 03/13/2019 [facility] CARDIAC ENZYMES Total CK 121 12 - 191 03/12/2019 [facility] CARDIAC ENZYMES Troponin-I <0.02 0.00 - 0.40 03/12/2019 [facility] CHEM PANEL Glucose Lvl 141 70 - 99 03/12/2019 [facility] CHEM PANEL BUN 11 7 - 22 03/12/2019 [facility] CHEM PANEL Creatinine Lvl 1.04 0.50 - 1.40 03/12/2019 [facility] CHEM PANEL Sodium Lvl 140 135 - 145 03/12/2019 [facility] CHEM PANEL Potassium Lvl 3.7 3.5 - 5.1 03/12/2019 [facility] CHEM PANEL Chloride Lvl 109 95 - 109 03/12/2019 [facility] CHEM PANEL CO2 26 24 - 32 03/12/2019 [facility] CHEM PANEL Calcium Lvl 9.5 8.5 - 10.5 03/12/2019 [facility] CHEM PANEL Total Protein 6.9 6.4 - 8.4 03/12/2019 [facility] CHEM PANEL Albumin Lvl 3.7 3.5 - 5.0 03/12/2019 [facility] CHEM PANEL ALT 31 0 - 65 03/12/2019 [facility] CHEM PANEL AST 16 0 - 37 03/12/2019 [facility] CHEM PANEL Alk Phos 92 39 - 136 03/12/2019 [facility] CHEM PANEL Bili Total 0.3 0.2 - 1.3 03/12/2019 [facility] CHEM PANEL AGAP 8.7 10.0 - 20.0 03/12/2019 [facility] CHEM PANEL B/C Ratio 11 6 - 25 03/12/2019 [facility] CHEM PANEL Globulin 3.2 2.7 - 4.2 03/12/2019 [facility] CHEM PANEL A/G Ratio 1.2 0.7 - 1.6 03/12/2019 [facility] CHEM PANEL eGFR 84 03/12/2019 Result Comment: The eGFR is calculated using the [...] from the National Kidney Disease Education Program (NKDEP) which additionally recommends that when the eGFR is used in patients with extremes of body mass index for purposes of drug dosing, the eGFR should be multiplied by the estimated BMI. [facility] HEMATOLOGY WBC 6.7 3.7 - 10.4 03/12/2019 [facility] HEMATOLOGY RBC 4.80 4.70 - 6.10 03/12/2019 [facility] HEMATOLOGY Hgb 14.6 14.0 - 18.0 03/12/2019 [facility] HEMATOLOGY Hct 43.2 42.0 - 54.0 03/12/2019 [facility] HEMATOLOGY MCV 90.0 80.0 - 94.0 03/12/2019 [facility] MCH 30.5 27.0 - 31.0 03/12/2019 [facility] MCHC 33.9 32.0 - 36.0 03/12/2019 [facility] RDW 14.9 11.5 - 14.5 03/12/2019 [facility] Platelet 220 133 - 450 03/12/2019 [facility] MPV 8.2 7.4 - 10.4 03/12/2019 [facility] PTT 35.1 22.9 - 35.8 03/12/2019 [facility] HEMATOLOGY PT 15.0 12.0 - 14.7 03/12/2019 [facility] HEMATOLOGY INR 1.17 0.85 - 1.17 03/12/2019 [facility] Segs 66.4 45.0 - 75.0 03/12/2019 [facility] Lymphocytes 24.0 20.0 - 40.0 03/12/2019 [facility] HEMATOLOGY Monocytes 6.8 2.0 - 12.0 03/12/2019 [facility] HEMATOLOGY Eosinophils 2.1 0.0 - 4.0 03/12/2019 [facility] HEMATOLOGY Basophils 0.7 0.0 - 1.0 03/12/2019 [facility] HEMATOLOGY Neutrophils # 4.4 1.5 - 8.1 03/12/2019 [facility] HEMATOLOGY Lymphocytes # 1.6 1.0 - 5.5 03/12/2019 [facility] HEMATOLOGY Monocytes # 0.5 0.0 - 0.8 03/12/2019 [facility] HEMATOLOGY Eosinophils # 0.1 0.0 - 0.5 03/12/2019 [facility] IMMUNOLOGY CDC HIV 4th GEN Negat devonte *NA* (01/11/19 3:02 PM) Negative 01/11/2019 [facility] CARDIAC ENZYMES Troponin-I <0.02 0.00 - 0.40 01/11/2019 [facility] CHEM PANEL Glucose Lvl 207 70 - 99 01/11/2019 [facility] CHEM PANEL BUN 9 7 - 22 01/11/2019 [facility] CHEM PANEL Creatinine Lvl 1.25 0.50 - 1.40 01/11/2019 [facility] CHEM PANEL Sodium Lvl 140 135 - 145 01/11/2019 [facility] CHEM PANEL Potassium Lvl 3.8 3.5 - 5.1 01/11/2019 [facility] CHEM PANEL Chloride Lvl 102 95 - 109 01/11/2019 [facility] CHEM PANEL CO2 26 24 - 32 01/11/2019 [facility] CHEM PANEL Calcium Lvl 9.7 8.5 - 10.5 01/11/2019 [facility] CHEM PANEL AGAP 15.8 10.0 - 20.0 01/11/2019 [facility] CHEM PANEL eGFR 68 01/11/2019 Result Comment: The eGFR is calculated using the [...] from the National Kidney Disease Education Program (NKDEP) which additionally recommends that when the eGFR is used in patients with extremes of body mass index for purposes of drug dosing, the eGFR should be multiplied by the estimated BMI. [facility] HEMATOLOGY WBC 7.1 3.7 - 10.4 01/11/2019 [facility] HEMATOLOGY RBC 4.84 4.70 - 6.10 01/11/2019 [facility] HEMATOLOGY Hgb 14.7 14.0 - 18.0 01/11/2019 [facility] HEMATOLOGY Hct 42.8 42.0 - 54.0 01/11/2019 [facility] HEMATOLOGY MCV 88.5 80.0 - 94.0 01/11/2019 [facility] HEMATOLOGY MCH 30.5 27.0 - 31.0 01/11/2019 [facility] HEMATOLOGY MCHC 34.4 32.0 - 36.0 01/11/2019 [facility] HEMATOLOGY RDW 15.5 11.5 - 14.5 01/11/2019 [facility] HEMATOLOGY Platelet 215 133 - 450 01/11/2019 [facility] HEMATOLOGY MPV 8.0 7.4 - 10.4 01/11/2019 [facility] HEMATOLOGY Segs 63.2 45.0 - 75.0 01/11/2019 [facility] HEMATOLOGY Lymphocytes 25.9 20.0 - 40.0 01/11/2019 [facility] HEMATOLOGY Monocytes 7.9 2.0 - 12.0 01/11/2019 [facility] HEMATOLOGY Eosinophils 2.0 0.0 - 4.0 01/11/2019 [facility] HEMATOLOGY Basophils 1.0 0.0 - 1.0 01/11/2019 [facility] HEMATOLOGY Neutrophils # 4.5 1.5 - 8.1 01/11/2019 [facility] HEMATOLOGY Lymphocytes # 1.8 1.0 - 5.5 01/11/2019 [facility] HEMATOLOGY Monocytes # 0.6 0.0 - 0.8 01/11/2019 [facility] HEMATOLOGY Eosinophils # 0.1 0.0 - 0.5 01/11/2019 [facility] HEMATOLOGY Basophils # 0.1 0.0 - 0.2 01/11/2019 [facility] Culture: Urine <10,000 CFU/mL Skin Jacquie 11/09/2018 [facility] CARDIAC ENZYMES Troponin-I <0.02 0.00 - 0.40 11/09/2018 [facility] LIPIDS LDL Direct 75 <=99 mg/dL 11/09/2018 [facility] CARDIAC ENZYMES Troponin-I <0.02 0.00 - 0.40 11/09/2018 [facility] TOXICOLOGY Keppra Lvl <2.0 (11/09/18 1:47 AM) 11/09/2018 [facility] DRUG SCREEN U Amph Scr Nega tive *NA* (11/09/18 1:19 AM) Negative 11/09/2018 [facility] DRUG SCREEN U Debbie Scr Nega tive *NA* (11/09/18 1:19 AM) Negative 11/09/2018 [facility] DRUG SCREEN U Benzodiaz Scr Nega tive *NA* (11/09/18 1:19 AM) Negative 11/09/2018 [facility] DRUG SCREEN U Cocaine Scr Nega tive *NA* (11/09/18 1:19 AM) Negative 11/09/2018 [facility] DRUG SCREEN U Cannab Scr Nega tive *NA* (11/09/18 1:19 AM) Negative 11/09/2018 [facility] DRUG SCREEN U Opiate Scr Posi tive *ABN* (11/09/18 1:19 AM) Negative 11/09/2018 [facility] DRUG SCREEN U Phencyclidine Scr Nega tive *NA* (11/09/18 1:19 AM) Negative 11/09/2018 [facility] DRUG SCREEN UDS Note See Note (11/09/18 1:19 AM) 11/09/2018 [facility] URINE AND STOOL UA Color Light Yellow *NA* (11/09/18 1:12 AM) Yellow 11/09/2018 [facility] URINE AND STOOL UA Turbidity Clear (11/09/18 1:12 AM) Clear 11/09/2018 [facility] URINE AND STOOL UA Spec Grav 1.045 <=1.030 11/09/2018 [facility] URINE AND STOOL UA pH 6.0 5.0 - 8.0 11/09/2018 [facility] URINE AND STOOL UA Protein Negative (11/09/18 1:12 AM) Negative 11/09/2018 [facility] URINE AND STOOL UA Glucose 500 mg/dL Negative mg/dL 11/09/2018 [facility] URINE AND STOOL UA Ketones Negative *NA* (11/09/18 1:12 AM) Negative 11/09/2018 [facility] URINE AND STOOL UA Bili Negative *NA* (11/09/18 1:12 AM) Negative 11/09/2018 [facility] URINE AND STOOL UA Blood Negative (11/09/18 1:12 AM) Negative 11/09/2018 [facility] URINE AND STOOL UA Urobilinogen <1.0 0.1 - 1.0 11/09/2018 [facility] URINE AND STOOL UA Nitrite Negative (11/09/18 1:12 AM) Negative 11/09/2018 [facility] URINE AND STOOL UA Leuk Est Small *ABN* (11/09/18 1:12 AM) Negative 11/09/2018 [facility] URINE AND STOOL UA Sq Epi None Seen (11/09/18 1:12 AM) Few 11/09/2018 [facility] URINE AND STOOL UA WBC 6 0 - 5 11/09/2018 [facility] URINE AND STOOL UA RBC 1 0 - 2 11/09/2018 [facility] IMMUNOLOGY CDC HIV 4th GEN Negat devonte *NA* (11/08/18 9:58 PM) Negative 11/09/2018 [facility] CARDIAC ENZYMES Troponin-I <0.02 0.00 - 0.40 11/09/2018 [facility] CHEM PANEL Glucose Lvl 144 70 - 99 11/09/2018 [facility] CHEM PANEL BUN 13 7 - 22 11/09/2018 [facility] CHEM PANEL Creatinine Lvl 1.39 0.50 - 1.40 11/09/2018 [facility] CHEM PANEL Sodium Lvl 136 135 - 145 11/09/2018 [facility] CHEM PANEL Potassium Lvl 3.4 3.5 - 5.1 11/09/2018 [facility] CHEM PANEL Chloride Lvl 100 95 - 109 11/09/2018 [facility] CHEM PANEL CO2 28 24 - 32 11/09/2018 [facility] CHEM PANEL Calcium Lvl 9.0 8.5 - 10.5 11/09/2018 [facility] CHEM PANEL eGFR 60 11/09/2018 Result Comment: The eGFR is calculated using the [...] from the National Kidney Disease Education Program (NKDEP) which additionally recommends that when the eGFR is used in patients with extremes of body mass index for purposes of drug dosing, the eGFR should be multiplied by the estimated BMI. [facility] CHEM PANEL Total Protein 7.1 6.4 - 8.4 11/09/2018 [facility] CHEM PANEL Albumin Lvl 3.7 3.5 - 5.0 11/09/2018 [facility] CHEM PANEL ALT 29 0 - 65 11/09/2018 [facility] CHEM PANEL AST 23 0 - 37 11/09/2018 [facility] CHEM PANEL Alk Phos 99 39 - 136 11/09/2018 [facility] CHEM PANEL Bili Total 0.4 0.2 - 1.3 11/09/2018 [facility] CHEM PANEL AGAP 11.4 10.0 - 20.0 11/09/2018 [facility] CHEM PANEL B/C Ratio 9 6 - 25 11/09/2018 [facility] CHEM PANEL Globulin 3.4 2.7 - 4.2 11/09/2018 [facility] CHEM PANEL A/G Ratio 1.1 0.7 - 1.6 11/09/2018 [facility] HEMATOLOGY WBC 6.3 3.7 - 10.4 11/09/2018 [facility] HEMATOLOGY RBC 4.45 4.70 - 6.10 11/09/2018 [facility] HEMATOLOGY Hgb 14.2 14.0 - 18.0 11/09/2018 [facility] HEMATOLOGY Hct 40.1 42.0 - 54.0 11/09/2018 [facility] HEMATOLOGY MCV 90.1 80.0 - 94.0 11/09/2018 [facility] HEMATOLOGY MCH 31.9 27.0 - 31.0 11/09/2018 [facility] HEMATOLOGY MCHC 35.4 32.0 - 36.0 11/09/2018 [facility] HEMATOLOGY RDW 15.8 11.5 - 14.5 11/09/2018 [facility] HEMATOLOGY Platelet 225 133 - 450 11/09/2018 [facility] HEMATOLOGY MPV 7.4 7.4 - 10.4 11/09/2018 [facility] HEMATOLOGY Segs 54.9 45.0 - 75.0 11/09/2018 [facility] HEMATOLOGY Lymphocytes 32.4 20.0 - 40.0 11/09/2018 [facility] HEMATOLOGY Monocytes 9.2 2.0 - 12.0 11/09/2018 [facility] HEMATOLOGY Eosinophils 2.6 0.0 - 4.0 11/09/2018 [facility] HEMATOLOGY Basophils 0.9 0.0 - 1.0 11/09/2018 [facility] HEMATOLOGY Neutrophils # 3.5 1.5 - 8.1 11/09/2018 [facility] HEMATOLOGY Lymphocytes # 2.0 1.0 - 5.5 11/09/2018 [facility] HEMATOLOGY Monocytes # 0.6 0.0 - 0.8 11/09/2018 [facility] HEMATOLOGY Eosinophils # 0.2 0.0 - 0.5 11/09/2018 [facility] HEMATOLOGY Basophils # 0.1 0.0 - 0.2 11/09/2018 [facility] LIPIDS Trig 680 <=149 mg/dL 11/09/2018 [facility] LIPIDS Chol 177 <=199 mg/dL 11/09/2018 [facility] LIPIDS HDL 25 >=61 mg/dL 11/09/2018 [facility] LIPIDS CHD Risk 7.08 4.00 - 7.30 11/09/2018 [facility] LIPIDS LDL (Calculated) See Note mg/dL <=99 mg/dL 11/09/2018 Result Comment: LDL cholesterol cannot b e calculated due to very high triglycerides (>400 mg/dL). Recommend Direct LDL if clinically indicated. [facility] LIPIDS VLDL See Note 4 *NA* (11/08/18 9:38 PM) 11/09/2018 Result Comment: VLDL - Cholesterol level cannot be accurately calculated due to very high triglycerides (>400 mg/dL). [facility] SPECIAL CHEMISTRY Hgb A1C 7.7 <=5.6 % 11/09/2018 [facility] HEMATOLOGY ACT (TEG) Rapid 105 86 - 118 11/09/2018 [facility] HEMATOLOGY [place] Rapid 0.4 11/09/2018 [facility] HEMATOLOGY R-time Rapid 0.6 0.4 - 0.7 11/09/2018 [facility] HEMATOLOGY K-time Rapid 1.2 0.6 - 2.3 11/09/2018 [facility] HEMATOLOGY Angle Rapid 74 64 - 80 11/09/2018 [facility] HEMATOLOGY Max Amplitude Rapid 64 52 - 71 11/09/2018 [facility] HEMATOLOGY G-value Rapid 8.8 5.0 - 11.6 11/09/2018 [facility] HEMATOLOGY Estimated % Lysis Rapid 0 .1 0.0 - 7.5 11/09/2018 [facility] CARDIAC ENZYMES Total CK 181 12 - 191 11/09/2018 [facility] ELECTROLYTES AGAP 10.3 10.0 - 20.0 11/09/2018 [facility] ELECTROLYTES Glucose Lvl 154 70 - 99 11/09/2018 [facility] ELECTROLYTES BUN 12 7 - 22 11/09/2018 [facility] ELECTROLYTES Creatinine Lvl 1.4 3 0.50 - 1.40 11/09/2018 [facility] ELECTROLYTES Sodium Lvl 136 135 - 145 11/09/2018 [facility] ELECTROLYTES Potassium Lvl 3.3 3.5 - 5.1 11/09/2018 [facility] ELECTROLYTES Chloride Lvl 101 95 - 109 11/09/2018 [facility] ELECTROLYTES CO2 28 24 - 32 11/09/2018 [facility] ELECTROLYTES Calcium Lvl 9.0 8.5 - 10.5 11/09/2018 [facility] ELECTROLYTES eGFR 58 11/09/2018 Result Comment: The eGFR is calculated using the [...] from the National Kidney Disease Education Program (NKDEP) which additionally recommends that when the eGFR is used in patients with extremes of body mass index for purposes of drug dosing, the eGFR should be multiplied by the estimated BMI. [facility] HEMATOLOGY WBC 6.5 3.7 - 10.4 11/09/2018 [facility] HEMATOLOGY RBC 4.71 4.70 - 6.10 11/09/2018 [facility] HEMATOLOGY Hgb 14.9 14.0 - 18.0 11/09/2018 [facility] HEMATOLOGY Hct 42.5 42.0 - 54.0 11/09/2018 [facility] HEMATOLOGY MCV 90.2 80.0 - 94.0 11/09/2018 [facility] HEMATOLOGY MCH 31.7 27.0 - 31.0 11/09/2018 [facility] HEMATOLOGY MCHC 35.1 32.0 - 36.0 11/09/2018 [facility] HEMATOLOGY RDW 15.4 11.5 - 14.5 11/09/2018 [facility] HEMATOLOGY Platelet 226 133 - 450 11/09/2018 [facility] HEMATOLOGY MPV 7.6 7.4 - 10.4 11/09/2018 [facility] HEMATOLOGY PT 12.4 12.0 - 14.7 11/09/2018 [facility] HEMATOLOGY INR 0.94 0.85 - 1.17 11/09/2018 [facility] HEMATOLOGY PTT 30.9 22.9 - 35.8 11/09/2018 [facility] HEMATOLOGY Segs 54.6 45.0 - 75.0 11/09/2018 [facility] HEMATOLOGY Lymphocytes 32.0 20.0 - 40.0 11/09/2018 [facility] HEMATOLOGY Monocytes 9.8 2.0 - 12.0 11/09/2018 [facility] HEMATOLOGY Eosinophils 2.7 0.0 - 4.0 11/09/2018 [facility] HEMATOLOGY Basophils 0.9 0.0 - 1.0 11/09/2018 [facility] HEMATOLOGY Neutrophils # 3.6 1.5 - 8.1 11/09/2018 [facility] HEMATOLOGY Lymphocytes # 2.1 1.0 - 5.5 11/09/2018 [facility] HEMATOLOGY Monocytes # 0.6 0.0 - 0.8 11/09/2018 [facility] HEMATOLOGY Eosinophils # 0.2 0.0 - 0.5 11/09/2018 [facility] HEMATOLOGY Basophils # 0.1 0.0 - 0.2 11/09/2018 [facility] POCT GLUCOSE (AUTOMATED) POCT GLU 194 70 - 110 09/29/2018 [facility] POCT GLUCOSE (AUTOMATED) Lab Interpr etation Abnormal 09/29/2018 [facility] Healt h TROPONIN I TROPONIN I 0.002 <=0.034 09/29/2018 [facility] TROPONIN I <p>Equal or Less th an 0.034 ng/ml---Normal</p><p>Note: Cardiac troponin begins to rise 3-4 hours after the onset of ischemia. Repeat in 4-6 hours if the sample was drawn within 3-4 hours of the onset of the symptom and found normal. </p><p> </p><p>Between 0.035 and 0.120 ng/mL--- Borderline. Questionable myocardial injury or necrosis</p><p>Note: Serial measurement may be necessary to confirm or exclude the diagnosis of myocardial injury or necrosis; Clinical correlation (symptoms, EKGs, imaging studies, and others) required; Repeat in 4-6 hours if clinically indicated.</p><p> </p><p>Equal or Higher than 0.121 ng/mL---Abnormal. Myocardial Injury or Necrosis Likely </p><p>Biotin has been reported to cause a negative bias, interpret results relative to patient's use of biotin. </p><p></p> Equal or Less than 0.034 ng/ml---NormalNote: Cardiac troponin begins to rise 3-4 hours after the onset of ischemia. Repeat in 4-6 hours if the sample was drawn within 3-4 hours of the onset of the symptom and found normal. Between 0.035 and 0.120 ng/mL--- Borderline. Questionable myocardial injury or necrosisNote: Serial measurement may be necessary to confirm or exclude the diagnosis of myocardial injury or necrosis; Clinical correlation (symptoms, EKGs, imaging studies, and others) required; Repeat in 4-6 hours if clinically indicated. Equal or Higher than 0.121 ng/mL---Abnormal. Myocardial Injury or Necrosis Likely Biotin has been reported to cause a negative bias, interpret results relative to patient's use of biotin. 09/29/2018 [facility] TROPONIN I Lab Interpretation Merline l 09/29/2018 [facility] BASIC METABOLIC PANEL (NA, K, CL, CO2, G LUCOSE, BUN, CREATININE, CA) NA 137 135 - 145 09/29/2018 [facility] BASIC METABOLIC PANEL (NA, K, CL, CO2, G LUCOSE, BUN, CREATININE, CA) K 3.6 3.5 - 5 09/29/2018 [facility] BASIC METABOLIC PANEL (NA, K, CL, CO2, G LUCOSE, BUN, CREATININE, CA) CL 102 98 - 108 09/29/2018 [facility] BASIC METABOLIC PANEL (NA, K, CL, CO2, G LUCOSE, BUN, CREATININE, CA) CO2 TOTAL 27 23 - 31 09/29/2018 [facility] BASIC METABOLIC PANEL (NA, K, CL, CO2, G LUCOSE, BUN, CREATININE, CA) AGAP 8 2 - 16 09/29/2018 [facility] BASIC METABOLIC PANEL (NA, K, CL, CO2, G LUCOSE, BUN, CREATININE, CA) BUN 12 7 - 23 09/29/2018 [facility] BASIC METABOLIC PANEL (NA, K, CL, CO2, G LUCOSE, BUN, CREATININE, CA) GLUCOSE 231 70 - 110 09/29/2018 [facility] BASIC METABOLIC PANEL (NA, K, CL, CO2, G LUCOSE, BUN, CREATININE, CA) CREATININE 0.95 0.6 - 1.25 09/29/2018 [facility] BASIC METABOLIC PANEL (NA, K, CL, CO2, G LUCOSE, BUN, CREATININE, CA) CALCIUM 8.3 8.6 - 10.6 09/29/2018 [facility] BASIC METABOLIC PANEL (NA, K, CL, CO2, G LUCOSE, BUN, CREATININE, CA) eGFR Calculation (Non-) 84.6 mL/min/1.73m2 09/29/2018 [facility] BASIC METABOLIC PANEL (NA, K, CL, CO2, G LUCOSE, BUN, CREATININE, CA) eGFR Calculation () 102.6 mL/min/1.73m2 09/29/2018 [facility] BASIC METABOLIC PANEL (NA, K, CL, CO2, G LUCOSE, BUN, CREATININE, CA) <p>Association of Glomerular Filtration Rate (GFR) and Staging of Kidney Disease*</p><p>+ + + -------+</p><p>| GFR (mL/min/1.73 m2)| With Kidney Damage|Without Kidney Damage</p><p>+ + + -----+</p><p>|>90|Stage one| Normal</p><p>+ + + -----+</p><p>|60-89|Stage two| Decreased GFR </p><p>+ + + + </p><p>|30-59|Stage three| Stage three </p><p>+ + + + </p><p>|15-29|Stage four | Stage four</p&am p;gt;<p>+ + + +</p><p>|<15 (or dialysis)|Stage five | Stage five</p>& lt;p>+ + + +</ p><p>*Each stage assumes the associated GFR level has been in effect for at least three months.Stages 1 to 5, with or without kidney disease, indicate chronic kidney disease.</p><p>Notes: Determination of stages one and two (with eGFR >59mL/min/1.73 m2) requires estimation of kidney damage for at least three months as defined by structural or functional abnormalities of the kidney, manifested by either:</p><p>Pathological abnormalities or Markers of kidney damage (including abnormalities in the composition of the blood or urine or abnormalities in imaging tests). </p> Association of Glomerular Filtration Rat e (GFR) and Staging of Kidney Disease*+ + + +| GFR (mL/min/1.73 m2)| With Kidney Damage|Without Kidney Damage+ + + +| >90|Stage one| Normal+ + + +| 60-89|Stage two| Decreased GFR + + + +|30-59| Stage three| Stage three + + + +|15-29| Stage four | Stage four+ + + +|+- + + +*Each stage assumes the associated GFR level has been in effect for at least three months.Stages 1 to 5, with or without kidney disease, indicate chronic kidney disease.Notes: Determination of stages one and two (with eGFR >59mL/min/1.73 m2) requires estimation of kidney damage for at least three months as defined by structural or functional abnormalities of the kidney, manifested by either:Pathological abnormalities or Markers of kidney damage (including abnormalities in the composition of the blood or urine or abnormalities in imaging tests). 09/29/2018 [facility] [employer] BASIC METABOLIC PANEL (NA, K, CL, CO2, G LUCOSE, BUN, CREATININE, CA) Lab Interpretation Abnormal 09/29/2018 [employer] MAGNESIUM MAGNESIUM 1.5 1.7 - 2.4 09/29/2018 [facility] [employer] MAGNESIUM Lab Interpretation Abnorm al 09/29/2018 [facility] [employer] D-DIMER D-DIMER 0.32 <0.50 g/mL (FEU) 09/29/2018 [facility] [employer] D-DIMER <p>This test may be us ed in conjunction with a clinical pretest probability (PTP) assessment model to exclude pulmonary embolism (PE) and as an aid in the diagnosis of deep venous thrombosis (DVT) in outpatients suspected of PE or DVT.</p><p>A D-Dimer value less than 0.50 g/ml (FEU) has a negative predicative value of 98 to 100% (95% CI) for the exclusion of pulmonary embolism (PE) and 95 to 100% (95% CI) as an aid in the diagnosis of deep vein thrombosis (DVT) when there is low or moderate pretest probability of PE or DVT. </p><p>D-Dimer values are expressed in initial fibrinogen equivalent units (FEU).</p> This test may be used in conjunction wit h a clinical pretest probability (PTP) assessment model to exclude pulmonary embolism (PE) and as an aid in the diagnosis of deep venous thrombosis (DVT) in outpatients suspected of PE or DVT.A D-Dimer value less than 0.50 g/ml (FEU) [...] expressed in initial fibrinogen equivalent units (FEU). 09/29/2018 [facility] D-DIMER Lab Interpretation Normal 09/29/2018 [facility] N-TERMINAL PRO-BNP NT-proBNP 549 <=125 09/28/2018 [facility] N-TERMINAL PRO-BNP <p>Biotin h as been reported to cause a negative bias, interpret results relative to patient's use of biotin.</p> Biotin has been reported to cause a negative bias, interpret results relative to patient's use of biotin. 09/28/2018 [facility] N-TERMINAL PRO-BNP Lab Interpretatio n Abnormal 09/28/2018 [facility] CBC WITH DIFFERENTIAL <td ID="[id number]">WBC</td><td>5.62</td><td>4.20 - 10.70 10*3/L</td><td>[facility]</td><td ID="[id number]"/> 5.62 4.20 - 10.85328 09/28/2018 [facility] CBC WITH DIFFERENTIAL <td ID="[id number]">RBC</td><td><span style="flagData">4.06</span><span style="flagData"> (L)</span></td><td>4.26 - 5.52 10*6/L</td><td>[facility]</td><td ID="[id number]"/> 4.06 4.26 - 5.57247 09/28/2018 [facility] CBC WITH DIFFERENTIAL <td ID="[id number]">HGB</td><td>12.6</td><td>12.2 - 16.4 g/dL</td><td>[facility]</td><td ID="[id number]"/> 12.6 12.2 - 16.4 09/28/2018 [facility] CBC WITH DIFFERENTIAL <td ID="[id number]">HCT</td><td><span style="flagData">38.0</span><span style="flagData"> (L)</span></td><td>38.4 - 49.3 %</td><td>[facility]</td><td ID="[id number]"/> 38.0 38.4 - 49.3 09/28/2018 [facility] CBC WITH DIFFERENTIAL <td ID="[id number]">MCV</td><td>93.6</td><td>81.7 - 95.6 fL</td><td>[facility]</td><td ID="[id number]"/> 93.6 81.7 - 95.6 09/28/2018 [facility] CBC WITH DIFFERENTIAL <td ID="[id number]">MCH</td><td>31.0</td><td>26.1 - 32.7 pg</td><td>[facility]</td><td ID="[id number]"/> 31.0 26.1 - 32.7 09/28/2018 [facility] CBC WITH DIFFERENTIAL <td ID="[id number]">MCHC</td><td>33.2</td><td>31.2 - 35.0 g/dL</td><td>[facility]</td><td ID="[id number]"/> 33.2 31.2 - 35 09/28/2018 [facility] CBC WITH DIFFERENTIAL <td ID="[id number]">RDW-SD</td><td>47.1</td><td>38.5 - 51.6 fL</td><td>[facility]</td><td ID="[id number]"/> 47.1 38.5 - 51.6 09/28/2018 [facility] CBC WITH DIFFERENTIAL <td ID="[id number]">RDW-CV</td><td>14.0</td><td>12.1 - 15.4 %</td><td>[facility]</td><td ID="[id number]"/> 14.0 12.1 - 15.4 09/28/2018 [facility] CBC WITH DIFFERENTIAL <td ID="[id number]">PLT</td><td>200</td><td>150 - 328 10*3/L</td><td >[facility]</td><td ID="[id number]"/> 200 150 - [id number] 09/28/2018 [facility] CBC WITH DIFFERENTIAL <td ID="[id number]">MPV</td><td><span style="flagData">9.5</span><span style="flagData"> (L)</span></td><td>9.8 - 13.0 fL</td><td>[facility]</td><td ID="[id number]"/> 9.5 9.8 - 13 09/28/2018 [facility] CBC WITH DIFFERENTIAL NRBC/100 WBC 0.0 0.0 - 10.0100 09/28/2018 [facility] CBC WITH DIFFERENTIAL NRBC x10^3 <0.01 10*3/L 09/28/2018 [facility] CBC WITH DIFFERENTIAL <td ID="[id number]">GRAN MAT (NEUT) %</td><td>56.7</td><td>%</td><td>[facility]</td><td ID="[id number]"/> 56.7 09/28/2018 [facility] CBC WITH DIFFERENTIAL IMM GRAN % 2.10 09/28/2018 [facility] CBC WITH DIFFERENTIAL <td ID="[id number]">LYMPH %</td><td>29.0</td><td>%</td><td>[facility]</td><td ID="[id number]"/> 29.0 09/28/2018 [facility] CBC WITH DIFFERENTIAL <td ID="[id number]">MONO %</td><td>9.3</td><td>%</td><td>[facility]</td><td ID="[id number]"/> 9.3 09/28/2018 [facility] CBC WITH DIFFERENTIAL <td ID="[id number]">EOS %</td><td>2.5</td><td>%</td><td>[facility]</td><td ID="[id number]"/> 2.5 09/28/2018 [facility] CBC WITH DIFFERENTIAL <td ID="[id number]">BASO %</td><td>0.4</td><td>%</td><td>[facility]</td><td ID="[id number]"/> 0.4 09/28/2018 [facility] CBC WITH DIFFERENTIAL GRAN MAT x10^3 (ANC) 3.19 1.99 - 6.95 09/28/2018 [facility] Healt h CBC WITH DIFFERENTIAL IMM GRAN x10^3 0.12 0 - 0.06 09/28/2018 [facility] CBC WITH DIFFERENTIAL <td ID="[id number]">LYMPH x10^3</td><td>1.63</td><td>1.09 - 3.23 10*3/uL</td><td>[facility]</td><td ID="[id number]"/> 1.63 1.09 - 3.23 09/28/2018 [facility] CBC WITH DIFFERENTIAL <td ID="[id number]">MONO x10^3</td><td>0.52</td><td>0.36 - 1.02 10*3/uL</td><td>[facility]</td><td ID="[id number]"/> 0.52 0.36 - 1.02 09/28/2018 [facility] CBC WITH DIFFERENTIAL <td ID="[id number]">EOS x10^3</td><td>0.14</td><td>0.06 - 0.53 10*3/uL</td><td>[facility]</td><td ID="[id number]"/> 0.14 0.06 - 0.53 09/28/2018 [facility] CBC WITH DIFFERENTIAL <td ID="[id number]">BASO x10^3</td><td><0.03</td><td>0.01 - 0.09 10*3/uL</td><td[facility]td><td ID="[id number]"/> <0.03 0.01 - 0.09 09/28/2018 [facility] CBC WITH DIFFERENTIAL Lab Interpreta tion Abnormal 09/28/2018 [facility] Chest 1 View <p> </p><p>Mild i nterstitial pulmonary edema.</p><p> </p><p>No focal consolidation to suggest pneumonia.</p><p> </p><p> </p><p> </p> Mild interstitial pulmonary edema. No f ocal consolidation to suggest pneumonia. 09/28/2018 [facility] Chest 1 View <p>* * * * * * * * ORIGINAL REPORT * * * * * * * *</p><p>XR CHEST 1 VW</p><p> </p><p>HISTORY: chest pain </p><p> </p><p>COMPARISON: 09/19/2018, 07/14/2018 chest radiographs.</p><p> </p><p>FINDINGS:</p><p> </p><p>Sternotomy sutures project over the upper midline, as well as the polygonal</p><p>radiopaque structures present in multiple prior studies. ACDF hardware is</p><p>again noted.</p><p> </p><p>Cardiomediastinal silhouette is of normal size and morphology. Trachea is</p><p>not abnormally deviated.</p><p> </p><p>Lung volumes are normal. There is no confluent consolidation, however,</p><p>again noted is central vascular prominence and prominent interstitial</p><p>markings bilaterally.</p><p> </p> * * * * * * * * ORIGINAL REPORT * * * * * * * *XR CHEST 1 VW HISTORY: chest pain COMPARISON: 09/19/2018, 07/14/2018 chest radiographs. FINDINGS: Sternotomy sutures project over the upper midline, as well as the polygonalradiopaque structures present in multiple prior studies. ACDF hardware isagain noted. Cardiomediastinal silhouette is of normal size and morphology. Trachea isnot abnormally deviated. Lung volumes are normal. There is no confluent consolidation, however,again noted is central vascular prominence and prominent interstitialmarkings bilaterally. 09/28/2018 [facility] Chest 1 View <p styleCode="hea jonnie">[facility], Radiant Results Inft User - 09/28/2018 6:07 PM CDT</p><p><span>* * * * * * * * ORIGINAL REPORT * * * * * * * *</span>
<span>XR CHEST 1 VW</span>

<span>HISTORY: chest pain </span>

<span>COMPARISON: 09/19/2018, 07/14/2018 chest radiographs.</span>

<span>FINDINGS:&amp ;lt;/span>

<span>Sternotomy sutures project over the upper midline, as well as the </span><span>polygonal</span>
<span>radiopaque structures present in multiple prior studies. ACDF hardware </span><span>is</span><br/&gt ;<span>again noted.</span>

<span>Cardiomediastinal silhouette is of normal size and morphology. Trachea </span><span>is</span>
<span>not abnormally deviated.</span>

<span>Lung volumes are normal. There is no confluent consolidation, however,</span>
<span>again noted is central vascular prominence and prominent interstitial</span>
<span>markings bilaterally.</span>

<span>IMPRESSION</span>

<span>Mild interstitial pulmonary edema.</span>

<span>No focal consolidation to suggest pneumonia.</span>

</p> [facility], Radiant Results Inft User - 09/28/2018 6:07 PM CDT* * * * * * * * [...] edema. No focal consolidation to suggest pneumonia. 09/28/2018 [facility] Healt h Troponin I TROPONIN I 0.001 <=0.034 09/28/2018 [facility] Health Troponin I <p>Equal or Less th an 0.034 ng/ml---Normal</p><p>Note: Cardiac troponin begins to rise 3-4 hours after the onset of ischemia. Repeat in 4-6 hours if the sample was drawn within 3-4 hours of the onset of the symptom and found normal. </p><p> </p><p>Between 0.035 and 0.120 ng/mL--- Borderline. Questionable myocardial injury or necrosis</p><p>Note: Serial measurement may be necessary to confirm or exclude the diagnosis of myocardial injury or necrosis; Clinical correlation (symptoms, EKGs, imaging studies, and others) required; Repeat in 4-6 hours if clinically indicated.</p><p> </p><p>Equal or Higher than 0.121 ng/mL---Abnormal. Myocardial Injury or Necrosis Likely </p><p>Biotin has been reported to cause a negative bias, interpret results relative to patient's use of biotin. </p><p></p> Equal or Less than 0.034 ng/ml---NormalNote: Cardiac troponin begins to rise 3-4 hours after the onset of ischemia. Repeat in 4-6 hours if the sample was drawn within 3-4 hours of the onset of the symptom and found normal. Between 0.035 and 0.120 ng/mL--- Borderline. Questionable myocardial injury or necrosisNote: Serial measurement may be necessary to confirm or exclude the diagnosis of myocardial injury or necrosis; Clinical correlation (symptoms, EKGs, imaging studies, and others) required; Repeat in 4-6 hours if clinically indicated. Equal or Higher than 0.121 ng/mL---Abnormal. Myocardial Injury or Necrosis Likely Biotin has been reported to cause a negative bias, interpret results relative to patient's use of biotin. 09/28/2018 [facility] Troponin I Lab Interpretation [facility]line l 09/28/2018 [facility] Basic Metabolic Panel (NA, K, CL, CO2, G LUCOSE, BUN, CREATININE, CA) NA 137 135 - 145 09/28/2018 [facility] Basic Metabolic Panel (NA, K, CL, CO2, G LUCOSE, BUN, CREATININE, CA) K 3.6 3.5 - 5 09/28/2018 [facility] Basic Metabolic Panel (NA, K, CL, CO2, G LUCOSE, BUN, CREATININE, CA) CL 103 98 - 108 09/28/2018 [facility] Basic Metabolic Panel (NA, K, CL, CO2, G LUCOSE, BUN, CREATININE, CA) CO2 TOTAL 25 23 - 31 09/28/2018 [facility] Basic Metabolic Panel (NA, K, CL, CO2, G LUCOSE, BUN, CREATININE, CA) AGAP 9 2 - 16 09/28/2018 [facility] Basic Metabolic Panel (NA, K, CL, CO2, G LUCOSE, BUN, CREATININE, CA) BUN 13 7 - 23 09/28/2018 [facility] Basic Metabolic Panel (NA, K, CL, CO2, G LUCOSE, BUN, CREATININE, CA) GLUCOSE 157 70 - 110 09/28/2018 [facility] Basic Metabolic Panel (NA, K, CL, CO2, G LUCOSE, BUN, CREATININE, CA) CREATININE 0.88 0.6 - 1.25 09/28/2018 [facility] Basic Metabolic Panel (NA, K, CL, CO2, G LUCOSE, BUN, CREATININE, CA) CALCIUM 9.1 8.6 - 10.6 09/28/2018 [facility] Basic Metabolic Panel (NA, K, CL, CO2, G LUCOSE, BUN, CREATININE, CA) eGFR Calculation (Non-) 92.4 mL/min/1.73m2 09/28/2018 [facility] Basic Metabolic Panel (NA, K, CL, CO2, G LUCOSE, BUN, CREATININE, CA) eGFR Calculation () 112.0 mL/min/1.73m2 09/28/2018 [facility] Basic Metabolic Panel (NA, K, CL, CO2, G LUCOSE, BUN, CREATININE, CA) <p>Association of Glomerular Filtration Rate (GFR) and Staging of Kidney Disease*</p><p>+ + + -------+</p><p>| GFR (mL/min/1.73 m2)| With Kidney Damage|Without Kidney Damage</p><p>+ + + -----+</p><p>|>90|Stage one| Normal</p><p>+ + + -----+</p><p>|60-89|Stage two| Decreased GFR </p><p>+ + + + </p><p>|30-59|Stage three| Stage three </p><p>+ + + + </p><p>|15-29|Stage four | Stage four</p&am p;gt;<p>+ + + +</p><p>|<15 (or dialysis)|Stage five | Stage five</p>& lt;p>+ + + +</ p><p>*Each stage assumes the associated GFR level has been in effect for at least three months.Stages 1 to 5, with or without kidney disease, indicate chronic kidney disease.</p><p>Notes: Determination of stages one and two (with eGFR >59mL/min/1.73 m2) requires estimation of kidney damage for at least three months as defined by structural or functional abnormalities of the kidney, manifested by either:</p><p>Pathological abnormalities or Markers of kidney damage (including abnormalities in the composition of the blood or urine or abnormalities in imaging tests). </p> Association of Glomerular Filtration Rat e (GFR) and Staging of Kidney Disease*+ + + +| GFR (mL/min/1.73 m2)| With Kidney Damage|Without Kidney Damage+ + + +| >90|Stage one| Normal+ + + +| 60-89|Stage two| Decreased GFR + + + +|30-59| Stage three| Stage three + + + +|15-29| Stage four | Stage four+ + + +|+- + + +*Each stage assumes the associated GFR level has been in effect for at least three months.Stages 1 to 5, with or without kidney disease, indicate chronic kidney disease.Notes: Determination of stages one and two (with eGFR >59mL/min/1.73 m2) requires estimation of kidney damage for at least three months as defined by structural or functional abnormalities of the kidney, manifested by either:Pathological abnormalities or Markers of kidney damage (including abnormalities in the composition of the blood or urine or abnormalities in imaging tests). 09/28/2018 [facility] Basic Metabolic Panel (NA, K, CL, CO2, G LUCOSE, BUN, CREATININE, CA) Lab Interpretation Abnormal 09/28/2018 [facility] aPTT <td ID="[id number]">APTT Patient</td><td>33</td><td>26 - 36 Seconds</td><td>[facility]</td><td ID="[id number]"/> 33 26 - 36 09/28/2018 [facility] Heal h aPTT Lab Interpretation Normal 09/28/2018 [facility] Prothrombin Time (PT) / INR <t d ID="[id number]">PROTIME PATIENT</td><td>11.1</td><td>10.1 - 12.6 Seconds</td><td>[facility]</td><td ID="[id number]"/> 11.1 10.1 - 12.6 09/28/2018 [facility] Prothrombin Time (PT) / INR <t d ID="[id number]">INR</td><td><span>1.0</span><span style="allIndent"><span style="cellHeader">Comment: </span><span ID="[id number]">Normal INR <1.1; Warfarin Therapeutic range 2.0 to 3.0 or 2.5 to 3.5, depending upon the indications.</span></span></td><td> </td><td>[facility]</td><td ID="[id number]"/> 1.0 09/28/2018 Normal INR <1.1; Warfarin Therapeutic range 2.0 to 3.0 or 2.5 to 3.5, depending upon the indications. [facility] Prothrombin Time (PT) / INR Lab Inte rpretation Normal 09/28/2018 [facility] POCT GLUCOSE (AUTOMATED) POCT GLU 387 70 - 110 09/20/2018 [facility] POCT GLUCOSE (AUTOMATED) Lab Interpr etation Abnormal 09/20/2018 [facility] Troponin I TROPONIN I 0.003 <=0.034 09/20/2018 [facility] Troponin I <p>Equal or Less th an 0.034 ng/ml---Normal</p><p>Note: Cardiac troponin begins to rise 3-4 hours after the onset of ischemia. Repeat in 4-6 hours if the sample was drawn within 3-4 hours of the onset of the symptom and found normal. </p><p> </p><p>Between 0.035 and 0.120 ng/mL--- Borderline. Questionable myocardial injury or necrosis</p><p>Note: Serial measurement may be necessary to confirm or exclude the diagnosis of myocardial injury or necrosis; Clinical correlation (symptoms, EKGs, imaging studies, and others) required; Repeat in 4-6 hours if clinically indicated.</p><p> </p><p>Equal or Higher than 0.121 ng/mL---Abnormal. Myocardial Injury or Necrosis Likely </p><p>Biotin has been reported to cause a negative bias, interpret results relative to patient's use of biotin. </p><p></p> Equal or Less than 0.034 ng/ml---NormalNote: Cardiac troponin begins to rise 3-4 hours after the onset of ischemia. Repeat in 4-6 hours if the sample was drawn within 3-4 hours of the onset of the symptom and found normal. Between 0.035 and 0.120 ng/mL--- Borderline. Questionable myocardial injury or necrosisNote: Serial measurement may be necessary to confirm or exclude the diagnosis of myocardial injury or necrosis; Clinical correlation (symptoms, EKGs, imaging studies, and others) required; Repeat in 4-6 hours if clinically indicated. Equal or Higher than 0.121 ng/mL---Abnormal. Myocardial Injury or Necrosis Likely Biotin has been reported to cause a negative bias, interpret results relative to patient's use of biotin. 09/20/2018 [facility] Troponin I Lab Interpretation [facility]line l 09/20/2018 [facility] Chest 1 View <p>Cardiomegaly w ith mild edema. No effusions.</p><p> </p><p> </p><p>RL: 6200</p><p>AFC: [id number]</p><p> </p><p> </p> Cardiomegaly with mild edema. No effusions. RL: 6200AFC: [id number] 09/20/2018 [facility] Chest 1 View <p>Patient name: ARANZA WHITNEY</p><p>: 1970 48 years </p><p> </p><p>EXAMINATION: XR CHEST 1 VW</p><p> </p><p>Ordering Physician: ANNETTE QUEZADA </p><p> </p><p>CLINICAL HISTORY:</p ><p>chest pain </p><p> </p><p>COMPARISON:</p><p>None</p><p> </ p><p>TECHNIQUE:</p><p>Single frontal view the chest was performed.</p><p> </p><p>FINDINGS:</p><p>Sternotomy wires are identified. Cervical fusion hardware. Heart is mildly</p><p>enlarged. Prominence of the vascularity is present. No definite infiltrate.</p><p>No definite effusion or pneumothorax. Normal aortic contours.</p><p> </p> Patient name: ARANZA KENOB: 1970 48 years EXAMINATION: XR CHEST 1 VW Ordering Physician: ANNETTE QUEZADA CLINICAL HISTORY:chest pain COMPARISON:None TECHNIQUE:Single frontal view the chest was performed. FINDINGS:Sternotomy wires are identified. Cervical fusion hardware. Heart is mildlyenlarged. Prominence of the vascularity is present. No definite infiltrate.No definite effusion or pneumothorax. Normal aortic contours. 09/20/2018 [facility] Chest 1 View <p styleCode="hea jonnie">[facility], Radiant Results Inft User - 09/19/2018 11:08 PM CDT</p><p><span>Patient name: ARANZA WHITNEY</s hawkins>
<span>: 1970 48 years </span>

<span>EXAMINATION: XR CHEST 1 VW</span>

<span>Ordering Physician: ANNETTE QUEZADA </span>

<span>CLINICAL HISTORY:</span>
<span>chest pain </span>

<span>COMPARISON:</span>
<span&am p;gt;None</span>

<span>TECHNIQUE:</span>
<span>Single frontal view the chest was performed. </span>

<span>FINDINGS:</span>
<span>Sternotomy wires are identified. Cervical fusion hardware. Heart is </span><span>mildly</span>
<span>enlarged. Prominence of the vascularity is present. No definite </span><span>infiltrate.</span>
<span>No definite effusion or pneumothorax. Normal aortic contours.</span>
&l t;br/><span>IMPRESSION</span>
<span>Cardiomegaly with mild edema. No effusions.</span>

<span>RL: 6200</span>
<span>AFC: [id number]</span>
<span> </span>
</p> [facility], Radiant Results Inft User - 09/19/2018 11:08 PM CDTPatient name: ARANZA WHITNEY : 1970 48 years EXAMINATION: XR CHEST 1 VW Ordering Physician: ANNETTE QUEZADA CLINICAL HISTORY: chest pain COMPARISON: None TECHNIQUE: Single frontal view the chest was performed. FINDINGS: Sternotomy wires are identified. Cervical fusion hardware. Heart is mildly enlarged. Prominence of the vascularity is present. No definite infiltrate. No definite effusion or pneumothorax. Normal aortic contours. IMPRESSION Cardiomegaly with mild edema. No effusions. RL: 6200 AFC: [id number] 09/20/2018 [facility] h DRUG SCREEN ER (URINE) AMPHET Negative Negative 09/20/2018 [facility] Health DRUG SCREEN ER (URINE) Cocaine Metab olite Negative Negative 09/20/2018 [facility] h DRUG SCREEN ER (URINE) OPIATES Negative Negative 09/20/2018 [facility] Health DRUG SCREEN ER (URINE) THC Negative Negative 09/20/2018 [facility] DRUG SCREEN ER (URINE) <p>Urin e Drug Cutoff Ranges</p><p>Amphetamine: 1,000 ng/mL</p><p>Cocaine: 150 ng/mL</p><p>Opiates: 300 ng/mL</p><p>Cannabinoids:50 ng/mL</p><p>The results are to be used only for medical (i.e., treatment) purposes. Unconfirmed screening results must not be used for non-medical purposes (e.g., employment testing, legal testing).</p> Urine Drug Cutoff RangesAmphetamine: 1,000 ng/mLCocaine: 150 ng/mLOpiates: 300 ng/mLCannabinoids:50 ng/mLThe results are to be used only for medical (i.e., treatment) purposes. Unconfirmed screening results must not be used for non- medical purposes (e.g., employment testing, legal testing). 09/20/2018 [facility] DRUG SCREEN ER (URINE) Lab Interpret ation Normal 09/20/2018 [facility] Troponin I TROPONIN I 0.000 <=0.034 09/20/2018 [facility] Troponin I <p>Equal or Less th an 0.034 ng/ml---Normal</p><p>Note: Cardiac troponin begins to rise 3-4 hours after the onset of ischemia. Repeat in 4-6 hours if the sample was drawn within 3-4 hours of the onset of the symptom and found normal. </p><p> </p><p>Between 0.035 and 0.120 ng/mL--- Borderline. Questionable myocardial injury or necrosis</p><p>Note: Serial measurement may be necessary to confirm or exclude the diagnosis of myocardial injury or necrosis; Clinical correlation (symptoms, EKGs, imaging studies, and others) required; Repeat in 4-6 hours if clinically indicated.</p><p> </p><p>Equal or Higher than 0.121 ng/mL---Abnormal. Myocardial Injury or Necrosis Likely </p><p>Biotin has been reported to cause a negative bias, interpret results relative to patient's use of biotin. </p><p></p> Equal or Less than 0.034 ng/ml---NormalNote: Cardiac troponin begins to rise 3-4 hours after the onset of ischemia. Repeat in 4-6 hours if the sample was drawn within 3-4 hours of the onset of the symptom and found normal. Between 0.035 and 0.120 ng/mL--- Borderline. Questionable myocardial injury or necrosisNote: Serial measurement may be necessary to confirm or exclude the diagnosis of myocardial injury or necrosis; Clinical correlation (symptoms, EKGs, imaging studies, and others) required; Repeat in 4-6 hours if clinically indicated. Equal or Higher than 0.121 ng/mL---Abnormal. Myocardial Injury or Necrosis Likely Biotin has been reported to cause a negative bias, interpret results relative to patient's use of biotin. 09/20/2018 [facility] Troponin I Lab Interpretation [facility]line l 09/20/2018 [facility] N-TERMINAL PRO-BNP NT-proBNP 91 <=125 09/20/2018 [facility] N-TERMINAL PRO-BNP <p>Biotin h as been reported to cause a negative bias, interpret results relative to patient's use of biotin.</p> Biotin has been reported to cause a negative bias, interpret results relative to patient's use of biotin. 09/20/2018 [facility] N-TERMINAL PRO-BNP Lab Interpretatio n Normal 09/20/2018 [facility] Basic Metabolic Panel (NA, K, CL, CO2, G LUCOSE, BUN, CREATININE, CA) NA 140 135 - 145 09/20/2018 [facility] Basic Metabolic Panel (NA, K, CL, CO2, G LUCOSE, BUN, CREATININE, CA) K 3.2 3.5 - 5 09/20/2018 [facility] Basic Metabolic Panel (NA, K, CL, CO2, G LUCOSE, BUN, CREATININE, CA) CL 99 98 - 108 09/20/2018 [facility] Basic Metabolic Panel (NA, K, CL, CO2, G LUCOSE, BUN, CREATININE, CA) CO2 TOTAL 25 23 - 31 09/20/2018 [facility] Basic Metabolic Panel (NA, K, CL, CO2, G LUCOSE, BUN, CREATININE, CA) AGAP 16 2 - 16 09/20/2018 [facility] Basic Metabolic Panel (NA, K, CL, CO2, G LUCOSE, BUN, CREATININE, CA) BUN 18 7 - 23 09/20/2018 [facility] Basic Metabolic Panel (NA, K, CL, CO2, G LUCOSE, BUN, CREATININE, CA) GLUCOSE 220 70 - 110 09/20/2018 [facility] Basic Metabolic Panel (NA, K, CL, CO2, G LUCOSE, BUN, CREATININE, CA) CREATININE 1.10 0.6 - 1.25 09/20/2018 [facility] Basic Metabolic Panel (NA, K, CL, CO2, G LUCOSE, BUN, CREATININE, CA) CALCIUM 9.3 8.6 - 10.6 09/20/2018 [facility] Basic Metabolic Panel (NA, K, CL, CO2, G LUCOSE, BUN, CREATININE, CA) eGFR Calculation (Non-) 71.4 mL/min/1.73m2 09/20/2018 [facility] Basic Metabolic Panel (NA, K, CL, CO2, G LUCOSE, BUN, CREATININE, CA) eGFR Calculation () 86.6 mL/min/1.73m2 09/20/2018 [facility] Basic Metabolic Panel (NA, K, CL, CO2, G LUCOSE, BUN, CREATININE, CA) <p>Association of Glomerular Filtration Rate (GFR) and Staging of Kidney Disease*</p><p>+ + + -------+</p><p>| GFR (mL/min/1.73 m2)| With Kidney Damage|Without Kidney Damage</p><p>+ + + -----+</p><p>|>90|Stage one| Normal</p><p>+ + + -----+</p><p>|60-89|Stage two| Decreased GFR </p><p>+ + + + </p><p>|30-59|Stage three| Stage three </p><p>+ + + + </p><p>|15-29|Stage four | Stage four</p&am p;gt;<p>+ + + +</p><p>|<15 (or dialysis)|Stage five | Stage five</p>& lt;p>+ + + +</ p><p>*Each stage assumes the associated GFR level has been in effect for at least three months.Stages 1 to 5, with or without kidney disease, indicate chronic kidney disease.</p><p>Notes: Determination of stages one and two (with eGFR >59mL/min/1.73 m2) requires estimation of kidney damage for at least three months as defined by structural or functional abnormalities of the kidney, manifested by either:</p><p>Pathological abnormalities or Markers of kidney damage (including abnormalities in the composition of the blood or urine or abnormalities in imaging tests). </p> Association of Glomerular Filtration Rat e (GFR) and Staging of Kidney Disease*+ + + +| GFR (mL/min/1.73 m2)| With Kidney Damage|Without Kidney Damage+ + + +| >90|Stage one| Normal+ + + +| 60-89|Stage two| Decreased GFR + + + +|30-59| Stage three| Stage three + + + +|15-29| Stage four | Stage four+ + + +|+- + + +*Each stage assumes the associated GFR level has been in effect for at least three months.Stages 1 to 5, with or without kidney disease, indicate chronic kidney disease.Notes: Determination of stages one and two (with eGFR >59mL/min/1.73 m2) requires estimation of kidney damage for at least three months as defined by structural or functional abnormalities of the kidney, manifested by either:Pathological abnormalities or Markers of kidney damage (including abnormalities in the composition of the blood or urine or abnormalities in imaging tests). 09/20/2018 [facility] Basic Metabolic Panel (NA, K, CL, CO2, G LUCOSE, BUN, CREATININE, CA) Lab Interpretation Abnormal 09/20/2018 [facility] Hepatic Function Panel (ALB, T.PRO, BILI T, BU/BC, ALT, AST, ALK PHOS) TOTAL BILI 0.3 0.1 - 1.1 09/20/2018 [facility] Hepatic Function Panel (ALB, T.PRO, BILI T, BU/BC, ALT, AST, ALK PHOS) BILI UNCON 0.2 0.1 - 1.1 09/20/2018 [facility] [facility] Hepatic Function Panel (ALB, T.PRO, BILI T, BU/BC, ALT, AST, ALK PHOS) BILI CONJ 0.0 0 - 0.3 09/20/2018 [facility] Hepatic Function Panel (ALB, T.PRO, BILI T, BU/BC, ALT, AST, ALK PHOS) T PROTEIN 6.6 6.3 - 8.2 09/20/2018 [facility] Hepatic Function Panel (ALB, T.PRO, BILI T, BU/BC, ALT, AST, ALK PHOS) ALBUMIN 3.9 3.5 - 5 09/20/2018 [facility] Hepatic Function Panel (ALB, T.PRO, BILI T, BU/BC, ALT, AST, ALK PHOS) ALK PHOS 154 34 - 122 09/20/2018 [facility] Hepatic Function Panel (ALB, T.PRO, BILI T, BU/BC, ALT, AST, ALK PHOS) ALT(SGPT) 39 9 - 51 09/20/2018 [facility] Hepatic Function Panel (ALB, T.PRO, BILI T, BU/BC, ALT, AST, ALK PHOS) AST(SGOT) 21 13 - 40 09/20/2018 [facility] Hepatic Function Panel (ALB, T.PRO, BILI T, BU/BC, ALT, AST, ALK PHOS) Lab Interpretation Abnormal 09/20/2018 [facility] ETHANOL ALCOHOL <10 mg/dL 09/20/2018 [facility] ETHANOL <p>Toxic Greater than or equal to 80 mg/dL.</p><p>NOTE: Whole blood values are approximately 10% to 15% lower than serum and plasma.</p> Toxic Greater than or equal to 80 mg/dL. NOTE: Whole blood values are approximately 10% to 15% lower than serum and plasma. 09/20/2018 [facility] CBC WITH DIFFERENTIAL <td ID="[id number]">WBC</td><td>8.70</td><td>4.20 - 10.70 10*3/L</td><td>[facility]</td><td ID="[id number]"/> 8.70 4.20 - 10.53725 09/20/2018 [facility] CBC WITH DIFFERENTIAL <td ID="[id number]">RBC</td><td><span style="flagData">4.22</span><span style="flagData"> (L)</span></td><td>4.26 - 5.52 10*6/L</td><td>[facility]</td><td ID="[id number]"/> 4.22 4.26 - 5.49635 09/20/2018 [facility] CBC WITH DIFFERENTIAL <td ID="[id number]">HGB</td><td>13.2</td><td>12.2 - 16.4 g/dL</td><td>[facility]</td><td ID="[id number]"/> 13.2 12.2 - 16.4 09/20/2018 [facility] CBC WITH DIFFERENTIAL <td ID="[id number]">HCT</td><td>38.9</td><td>38.4 - 49.3 %</td><td>[facility]</td><td ID="[id number]"/> 38.9 38.4 - 49.3 09/20/2018 [facility] CBC WITH DIFFERENTIAL <td ID="[id number]">MCV</td><td>92.2</td><td>81.7 - 95.6 fL</td><td>[facility]</td><td ID="[id number]"/> 92.2 81.7 - 95.6 09/20/2018 [facility] CBC WITH DIFFERENTIAL <td ID="[id number]">MCH</td><td>31.3</td><td>26.1 - 32.7 pg</td><td>[facility]</td><td ID="[id number]"/> 31.3 26.1 - 32.7 09/20/2018 [facility] CBC WITH DIFFERENTIAL <td ID="[id number]">MCHC</td><td>33.9</td><td>31.2 - 35.0 g/dL</td><td>[facility]</td><td ID="[id number]"/> 33.9 31.2 - 35 09/20/2018 [facility] CBC WITH DIFFERENTIAL <td ID="[id number]">RDW-SD</td><td>47.6</td><td>38.5 - 51.6 fL</td><td>[facility]</td><td ID="[id number]"/> 47.6 38.5 - 51.6 09/20/2018 [facility] CBC WITH DIFFERENTIAL <td ID="[id number]">RDW-CV</td><td>14.3</td><td>12.1 - 15.4 %</td><td>[facility]</td><td ID="[id number]"/> 14.3 12.1 - 15.4 09/20/2018 [facility] CBC WITH DIFFERENTIAL <td ID="[id number]">PLT</td><td>217</td><td>150 - 328 10*3/L</td><td >[facility]</td><td ID="[id number]"/> 217 150 - [id number] 09/20/2018 [facility] CBC WITH DIFFERENTIAL <td ID="[id number]">MPV</td><td><span style="flagData">9.7</span><span style="flagData"> (L)</span></td><td>9.8 - 13.0 fL</td><td>[facility]</td><td ID="[id number]"/> 9.7 9.8 - 13 09/20/2018 [facility] CBC WITH DIFFERENTIAL NRBC/100 WBC 0.0 0.0 - 10.0100 09/20/2018 [facility] CBC WITH DIFFERENTIAL NRBC x10^3 <0.01 10*3/L 09/20/2018 [facility] CBC WITH DIFFERENTIAL <td ID="[id number]">GRAN MAT (NEUT) %</td><td>67.6</td><td>%</td><td>[facility]</td><td ID="[id number]"/> 67.6 09/20/2018 [facility] CBC WITH DIFFERENTIAL IMM GRAN % 1.10 09/20/2018 [facility] CBC WITH DIFFERENTIAL <td ID="[id number]">LYMPH %</td><td>21.7</td><td>%</td><td>[facility]</td><td ID="[id number]"/> 21.7 09/20/2018 [facility] CBC WITH DIFFERENTIAL <td ID="[id number]">MONO %</td><td>7.6</td><td>%</td><td>[facility]</td><td ID="[id number]"/> 7.6 09/20/2018 [facility] CBC WITH DIFFERENTIAL <td ID="[id number]">EOS %</td><td>1.7</td><td>%</td><td>[facility]</td><td ID="[id number]"/> 1.7 09/20/2018 [facility] CBC WITH DIFFERENTIAL <td ID="[id number]">BASO %</td><td>0.3</td><td>%</td><td>[facility]</td><td ID="[id number]"/> 0.3 09/20/2018 [facility] CBC WITH DIFFERENTIAL GRAN MAT x10^3 (ANC) 5.87 1.99 - 6.95 09/20/2018 [facility] CBC WITH DIFFERENTIAL IMM GRAN x10^3 0.10 0 - 0.06 09/20/2018 [facility] CBC WITH DIFFERENTIAL <td ID="[id number]">LYMPH x10^3</td><td>1.89</td><td>1.09 - 3.23 10*3/uL</td><td>[facility]</td><td ID="[id number]"/> 1.89 1.09 - 3.23 09/20/2018 [facility] CBC WITH DIFFERENTIAL <td ID="[id number]">MONO x10^3</td><td>0.66</td><td>0.36 - 1.02 10*3/uL</td><td>[facility]</td><td ID="[id number]"/> 0.66 0.36 - 1.02 09/20/2018 [facility] CBC WITH DIFFERENTIAL <td ID="[id number]">EOS x10^3</td><td>0.15</td><td>0.06 - 0.53 10*3/uL</td><td>[facility]</td><td ID="[id number]"/> 0.15 0.06 - 0.53 09/20/2018 [facility] CBC WITH DIFFERENTIAL <td ID="[id number]">BASO x10^3</td><td>0.03</td><td>0.01 - 0.09 10*3/uL</td><td>[facility]</td><td ID="[id number]"/> 0.03 0.01 - 0.09 09/20/2018 [facility] CBC WITH DIFFERENTIAL Lab Interpreta tion Abnormal 09/20/2018 [facility] Pathology Reports No Data Provided for This Section Diagnostic Reports Report Value Date Source Chest 1view DX PROCEDURE INFOR MATION: Exam: XR Chest, 1 View Exam date and time: 07/12/2019 12:48 AM Age: 49 years old Clinical indication: Chest pain; fever TECHNIQUE: Imaging protocol: XR of the chest Views: 1 view. COMPARISON: CHEST 1VIEW DX 07/10/2019 1:40 PM FINDINGS: Lungs: Mild pulmonary vascular congestion. No focal lung consolidation. Pleural space: No pleural effusion. No pneumothorax. Heart/Mediastinum: Cardiac silhouette not enlarged. Bones/joints: Degenerative changes within the spine. Midline sternotomy wires. IMPRESSION: Mild pulmonary vascular congestion. No focal lung consolidation. Landry Dhaliwal MD On 07/12/2019 01:54:55; [id number] 07/12/2019 [facility] Brain wo contrast MRI PROCEDUR E INFORMATION: Exam: MR Head Without Contrast Exam date and time: 07/10/2019 9:48 PM Age: 49 years old Clinical indication: Pain; Weakness, extremity; Left; Headache; Additional info: /r/o CVA TECHNIQUE: Imaging protocol: MR of the head without contrast. COMPARISON: CT BRAIN STROKE WO CONTRAST 07/10/2019 1:17 PM FINDINGS: Limitations: Motion artifact degrades image quality. Brain: No acute territorial infarct or intracranial hemorrhage. There are no significant abnormal foci of T2/FLAIR signal abnormality within the white or holland matter. Pronounced central pontine and cerebellar atrophy is present. Ventricles: No ventriculomegaly. Bones/joints: Unremarkable. Soft tissues: Unremarkable. Sinuses: Mild mucoperiosteal thickening in the ethmoid sinus. No acute sinusitis. Mastoid air cells: Normal as visualized. No mastoid effusion. Orbits: Unremarkable. IMPRESSION: 1. Limited study as above. No acute terr itorial infarct or intracranial hemorrhage. 2. No significant migraine related palafox e or chronic small vessel ischemic change detected. Son Hammonds MD On 07/11/2019 07:30:47; [id number] 07/10/2019 [facility] Brain/Neck STROKE CTA Radiatio n Dose CTDIVOL = 0 (mGy): DLP = 2539.26 (mGy-cm) PROCEDURE INFORMATION: Exam: CT Angiography Head Without And With Contrast Exam date and time: 07/10/2019 4:07 PM Age: 49 years old Clinical indication: /left arm weakness TECHNIQUE: Imaging protocol: Computed tomographic angiography of the head without and with intravenous contrast. 3D rendering: MIP and/or 3D reconstructe d images were created by the technologist. Radiation optimization: All CT scans at this facility use at least one of these dose optimization techniques: automated exposure control; mA and/or kV adjustment per patient size (includes targeted exams where dose is matched to clinical indication); or iterative reconstruction. Contrast material: OMNIPAQUE 350; Contrast volume: 100 ml; Contrast route: IV; Other technique: STROKE PROTOCOL was implemented. COMPARISON: CTA BRAIN/NECK STROKE PERFUSION 11/08/2018 8:33 PM RADIATION DOSE METRICS: Total DLP: 2539.26 mGy-cm FINDINGS: Anterior cerebral arteries: No occlusion or significant stenosis. No aneurysm. Right internal carotid artery: Intracranial segment is patent with no significant stenosis. No aneurysm. Right middle cerebral artery: No occlusion or significant flow-limiting stenosis. No aneurysm. Right posterior cerebral artery: No occlusion or significant flow-limiting stenosis. No aneurysm. Right PCOM is not visualized. Right vertebral artery: No occlusion or significant flow-limiting stenosis. No aneurysm. Left internal carotid artery: Intracranial segment is patent with no significant stenosis. No aneurysm. Left middle cerebral artery: No occlusion or significant flow-limiting stenosis. No aneurysm. Left posterior cerebral artery: No occlusion or significant flow-limiting stenosis. No aneurysm. Small left PCOM is present. Left vertebral artery: No occlusion or significant flow-limiting stenosis. No aneurysm. Basilar artery: No occlusion or significant flow-limiting stenosis. No aneurysm. HEAD: Brain: No acute intracranial hemorrhage. No significant white matter disease. No edema. Pronounced cerebellar atrophy is present. Ventricles: No ventriculomegaly. Bones/joints: No acute fracture. Sinuses: Mild mucoperiosteal thickening in the ethmoid sinus. No fluid levels. Mastoid air cells: Visualized mastoids are normal. No mastoid effusion. Soft tissues: Unremarkable. PROCEDURE INFORMATION: Exam: CT Angiography Neck With Contrast Exam date and time: 07/10/2019 4:07 PM Age: 49 years old Clinical indication: /left arm weakness TECHNIQUE: Imaging protocol: Computed tomography angiography of the neck with intravenous contrast. 3D rendering: MIP and/or 3D reconstructe d images were created by the technologist. Radiation optimization: All CT scans at this facility use at least one of these dose optimization techniques: automated exposure control; mA and/or kV adjustment per patient size (includes targeted exams where dose is matched to clinical indication); or iterative reconstruction. Contrast material: OMNIPAQUE 350; Contrast volume: 100 ml; Contrast route: IV; COMPARISON: CTA BRAIN/NECK STROKE PERFUSION 11/08/2018 8:33 PM RADIATION DOSE METRICS: Total DLP: 2539.26 mGy-cm FINDINGS: Right common carotid artery: No flow-limiting stenosis. No dissection or occlusion. Right internal carotid artery: No flow-limiting stenosis. No dissection or occlusion. Right external carotid artery: No occlusion or stenosis of the origin. Right vertebral artery: No flow-limiting stenosis. No dissection or occlusion. Left common carotid artery: No flow-limiting stenosis. No dissection or occlusion. There is common origin of brachiocephalic and left common carotid arteries which is a normal variant. Left internal carotid artery: No flow-limiting stenosis. No dissection or occlusion. Left external carotid artery: No occlusion or stenosis of the origin. Left vertebral artery: No flow-limiting stenosis. No dissection or occlusion. Other vasculature: Suboptimal arterial contrast opacification is present most pronounced in the neck limiting evaluation. Limited study due to motion artifact. Bones/joints: No acute fracture. Soft tissues: No significant soft tissue swelling. Lungs: Nonspecific anterior right upper lobe interstitial opacity is present. Small right apical calcified granuloma is present. REFERENCES: NASCET CRITERIA. The degree of internal carotid artery stenosis is based on NASCET criteria. Normal is no stenosis. Mild is less than 50% stenosis. Moderate is 50-69% stenosis. Severe is 70% to 99% stenosis. Total occlusion is no detectable patent lumen. IMPRESSION: CT Angiography Head Without And With Contrast No major large vessel branch occlusion or flow-limiting intracranial stenosis. CT Angiography Neck With Contrast 1. Limited study due to motion artifact. No flow-limiting internal carotid artery or vertebral stenosis detected. 2. Nonspecific anterior right upper lobe interstitial opacity is present. ASSESSMENT: ASPECTS (Desiree Stroke Program Early CT Score) is 10. Son Hammonds MD On 07/10/2019 16:40:37; [id number] 07/10/2019 [facility] 1view DX PROCEDURE INFOR MATION: Exam: XR Chest, 1 View Exam date and time: 07/10/2019 1:40 PM Age: 49 years old Clinical indication: Other: Stroke symptoms; Additional info: /left sided weakness. HX of 2 strokes; Left sided weakness TECHNIQUE: Imaging protocol: XR of the chest Views: 1 view. COMPARISON: No relevant prior studies available. FINDINGS: Lungs: Mild decreased lung volumes. No consolidation. Pleural space: Unremarkable. No pleural effusion. No pneumothorax. Heart/Mediastinum: Heart size is within normal limits. Vasculature is unremarkable. Bones/joints: Thin wire sternotomy sutures and bandlike sternal fasteners are noted. Fusion plate lower cervical spine. IMPRESSION: No acute finding Vipul Gutiérrez MD On 07/10/2019 14:34:15; [id number] 07/10/2019 [facility] Brain Stroke wo contrast CT Ra diation Dose CTDIVOL = 0 (mGy): DLP = 1025.02 (mGy-cm) Findings were discussed with Nurys Licona RN at 07/10/2019 1:37 PM CDT. ER physicians are currently attending to patients. Nadeem Cruz MD On 07/10/2019 13:37:34; [id number] Radiation Dose CTDIVOL = 0 (mGy): DLP = 1025.02 (mGy-cm) PROCEDURE INFORMATION: Exam: CT Head Without Contrast Exam date and time: 07/10/2019 1:17 PM Age: 49 years old Clinical indication: Left sided weakness TECHNIQUE: Imaging protocol: Computed tomography of the head without contrast. Radiation optimization: All CT scans at this facility use at least one of these dose optimization techniques: automated exposure control; mA and/or kV adjustment per patient size (includes targeted exams where dose is matched to clinical indication); or iterative reconstruction. Other technique: STROKE PROTOCOL was implemented. COMPARISON: BRAIN WO CONTRAST CT 03/12/2019 2:37 PM RADIATION DOSE METRICS: Total DLP: 1025.02 mGy-cm FINDINGS: Brain: No acute parenchymal hemorrhage or large subacute infarction. The armstrong-white interface and deep armstrong nuclei are intact. No acute subdural or subarachnoid hemorrhage. No mass effect or midline shift. Cerebellar volume loss, advanced for age. Ventricles: No acute hydrocephalus. Bones/joints: No acute fracture or destructive osseous lesion. Sinuses: Visualized sinuses are unremarkable. Mastoid air cells: No mastoid effusion. Soft tissues: No soft tissue swelling or hematoma. IMPRESSION: No acute intracranial hemorrhage, mass effect or large subacute infarction. Chronic cerebellar volume loss, advanced for age. ASSESSMENT: ASPECTS (Desiree Stroke Program Early CT Score) is 10. Nadeem Cruz MD On 07/10/2019 13:31:56; [id number] 07/10/2019 [facility] Carotid artery Doppler bilat US PROCEDURE INFORMATION: Exam: US Duplex Bilateral Extracranial Arteries Exam date and time: 03/13/2019 12:23 AM Age: 48 years old Clinical indication: Other: TIA; Additional info: /tia TECHNIQUE: Imaging protocol: Real-time Duplex ultrasound scan of the bilateral carotid and vertebral arteries combining holland scale, color Doppler and spectral waveform analysis. Bilateral exam. COMPARISON: BRAIN WO CONTRAST CT 03/12/2019 2:37 PM FINDINGS: Grayscale images demonstrate minimal atheromatous plaque left carotid bulb. Normal color flow signal and spectral Doppler waveforms. Right internal carotid artery peak systolic velocity: 121 cm/sec Right internal to common carotid artery ratio: 1.0 Left internal carotid artery peak systolic velocity: 124 cm/sec Left internal to common carotid artery ratio: 0.7 Bilateral vertebral arteries demonstrate normal antegrade flow. The visualized external carotid arteries are unremarkable. IMPRESSION: 1. No evidence for hemodynamically signi ficant stenosis of the right or left extracranial internal carotid arteries. 2. Normal antegrade flow both vertebral arteries. REFERENCE: Carotid Stenosis Reference using SRU criteria: Mild: less than 50% stenosis. ICA PSV is less than 125 cm/second and plaque or intimal thickening is visible. Moderate: 50-69% stenosis. ICA PSV is 125 to 230 cm/second and plaque is visible. Severe: 70-94% stenosis. ICA PSV is more than 230 cm/second and visible plaque and lumen narrowing are seen. Near occlusion: 95-99% stenosis. ICA PSV is variable and significant plaque and luminal narrowing are seen. Occluded: 100% stenosis. No flow identified. Russell Ballesteros MD On 03/13/2019 01:12:38; [id number] 03/13/2019 [facility] Brain wo contrast CT Radiation Dose CTDIVOL = 0 (mGy): DLP = 1270.76 (mGy-cm) PROCEDURE INFORMATION: Exam: CT Head Without Contrast Exam date and time: 03/12/2019 2:37 PM Age: 48 years old Clinical indication: /swanson TECHNIQUE: Imaging protocol: Computed tomography of the head without contrast. Total DLP: 1270.76 mGy-cm Radiation optimization: All CT scans at this facility use at least one of these dose optimization techniques: automated exposure control; mA and/or kV adjustment per patient size (includes targeted exams where dose is matched to clinical indication); or iterative reconstruction. COMPARISON: BRAIN WO CONTRAST CT 11/09/2018 8:15 PM FINDINGS: Brain: There is no evidence of acute intracranial hemorrhage, subacute territorial infarct, mass effect or midline shift. Please note that acute infarcts can be occult on CT. moderate volume loss in the cerebellum, more than expected for patient's age. Please correlate for chronic alcoholism, chronic usage of anti seizure medicines or degenerative processes. Ventricles: Unremarkable for age Bones/joints: See Brain Finding. Sinuses: Visualized sinuses are unremarkable. No fluid levels. Mastoid air cells: Visualized mastoid air cells are well aerated. Soft tissues: Unremarkable. IMPRESSION: No CT evidence of acute intracranial findings. Moderate cerebellar atrophy. COMMENT: If there is a persistent concern for acute intracranial process, further assessment with MRI or CTA is recommended. Shayla Bonilla MD On 03/12/2019 15:14:25; [id number] 03/12/2019 [facility] 1view DX PROCEDURE INFOR MATION: Exam: XR Chest, 1 View Exam date and time: 03/12/2019 2:11 PM Age: 48 years old Clinical indication: Chest pain; Additional info: /chest pain TECHNIQUE: Imaging protocol: XR of the chest Views: 1 view. COMPARISON: CR CHEST 2 VIEWS DX 01/11/2019 2:28 PM FINDINGS: Lungs: Clear. No focal infiltrate. Pleural space: No pleural effusion. No pneumothorax. Heart/Mediastinum: Contours within normal limits. Bones/joints: Prior sternotomy changes. No detected acute osseous injury. IMPRESSION: No radiographically identified acute cardiopulmonary process. Hank Ashley MD On 03/12/2019 14:30:49; [id number] 03/12/2019 [facility] CTA UT SECTION: VIR EXAM : CTA CHEST WITH CONTRAST DATE: 01/11/2019 14:30 MDM SR INDICATION: - history of aortic dissection, now with chest pain radiation to back with nausea COMPARISON: 10/19/2018 TECHNIQUE: Volumetric CT of the chest, abdomen and pelvis is acquired in arterial phase following intravenous administration of contrast. Axial, coronal and sagittal reconstructions, along with MIP reconstructions, are created at the acquisition workstation. IV contrast: 100.1 Omnipaque 350 Oral contrast: None. DLP: 1074 mGy-cm FINDINGS: AORTA: The aorta measures: 3.2 cm at the ascending aorta at the lev el of the pulmonary artery, this is the man-made dissection of graft material 2.9 cm at the mid arch, 2.3 cm at the descending aorta at the le lauri of the main pulmonary artery, 2.3 cm at the level of the aortic hiatus , No significant atherosclerotic plaque. The branching pattern is unremarkable. No dissection or pseudoaneurysm. Lungs and pleura: There is groundglass pattern in the medial portion of the right upper and middle lobes with some atelectasis and distorted architecture. Also similar findings lower down adjacent to the heart on the left. This is related to prior radiation therapy in the region and is unchanged. There are also some blebs in the region from the same. No pleural effusion or pneumothorax. No pulmonary emboli seen. Heart and mediastinum: Heart size is normal no pericardial effusion No significant lymphadenopathy. There has been a median sternotomy present with fixation device for the sternum. The a sending aorta has a short tubular graft surgical repair which is unchanged. Abdomen: Hepatobiliary: Portions of the liver that are seen are normal. SMA is normal. Gallbladder: Surgically absent Spleen: Portions of the spleen that are seen are normal Pancreas: Unremarkable. Adrenals: Unremarkable. Kidneys: Portions of the kidneys seen are normal Bowel and mesentery: Scattered peripancreatic lymph nodes are present unchanged from the prior study and probably related to the prior lymphoma that is treated Bones: Unremarkable. IMPRESSION: 1. Replaced ascending aorta during prio r surgery. 2. No acute event visualized no change from 11/08/2018 01/11/2019 [facility] Chest 2 views DX EXAM: XR CHES T 2 VIEWS DATE: 01/11/2019 14:06 MDM SR INDICATION: - chest pain radiating to L arm COMPARISON: Chest radiograph from 11/08/2018. TECHNIQUE: PA and lateral chest radiographs. UT SECTION: ER FINDINGS: Lines, tubes and hardware: Postoperative changes of a prior median sternotomy with fractured 2nd and 3rd median sternotomy wires. Lower sternal plate and screw fixation is also seen. Cervical fusion hardware again noted. Lungs and pleura: Mild bibasilar subsegmental atelectasis. The costophrenic sulci are sharp without effusion. Heart and mediastinum: The heart size is normal. The mediastinal contours are normal. Bones, soft tissues: No acute abnormality. IMPRESSION: 1. No acute cardiopulmonary abnormality . 01/11/2019 [facility] Brain wo contrast CT EXAM: CT BRAIN DATE: 11/09/2018 at 20:15 CLINICAL INFORMATION: - stroke COMPARISON: CT brain 11/08/2018 TECHNIQUE: Axial images of the brain were obtained from the skull base through the vertex without contrast material administration. DLP: 1458 mGycm DISCUSSION: No acute hemorrhage, hydrocephalus or midline shift. Stable appearance of the brain parenchyma. IMPRESSION: No early signs of cortical-based ischemia or acute hemorrhage. Stable since prior 11/09/2018 [facility] Abdomen AP DX EXAM: XR ABDOMEN 1 VIEW DATE: 11/09/2018 9:57 AM CDT INDICATION: - Uncertain history of IVC filter placement COMPARISON: None. TECHNIQUE: AP view of the abdomen. FINDINGS: An IVC filter is noted adjacent to the L2 and L3 vertebral bodies along the right paravertebral location. Bowel: Stomach is mildly gas distended. No dilated small bowel loops. Moderate volume ascending colonic stool. Solid organs: No organomegaly. No abnormal calcifications found. Bones: Unremarkable. Contrast opacified urinary bladder noted. IMPRESSION: An IVC filter along the right paravertebral location at L2-L3 level. 11/09/2018 [facility] Chest/Abd/Pelvis CTA EXAM: CTA CHEST WITH CONTRAST EXAM: CTA ABDOMEN AND PELVIS WITH CONTRAST DATE: 11/08/2018 21:59 CDT INDICATION: 48-year-old man with a history of diabetes, dyslipidemia, stroke, atrial fibrillation on anticoagulation, coronary artery disease, congestive heart failure, type A aortic dissection status post aortic tube graft repair, factor V Leiden status post IVC filter placement, deep vein thrombosis, chronic obstructive pulmonary disease, Hodgkin lymphoma, status post nephrectomy, presenting with suspicion for stroke. ADDITIONAL INFORMATION: None. COMPARISON: None. TECHNIQUE: Volumetric CTA of the chest, abdomen, pelvis and lower extremities is acquired following intravenous administration of contrast. Axial, coronal and sagittal images, including MIPS, are provided. IV contrast: 100 mL IV Omnipaque 350. Enteric contrast: None. FINDINGS: VASCULAR: Aorta: Scattered minimal atherosclerosis. Ascending aorta: Status post ascending aortic tube graft repair, without evident complications. Normal caliber. No dissection, intramural hematoma, or acute penetrating aortic ulcer. Aortic arch: Unremarkable. Descending thoracic aorta: Normal caliber. No dissection, intramural hematoma, or acute penetrating aortic ulcer. Abdominal aorta: Normal caliber. No dissection, intramural hematoma, or acute penetrating aortic ulcer. Great vessels: Conventional anatomy Pulmonary arteries: Normal size. Celiac axis: Unremarkable. SMA: Unremarkable. Renal arteries: Unremarkable right renal artery. Status post left nephrectomy. CATHY: Unremarkable. Right common iliac artery: Unremarkable. Right external iliac artery: Unremarkable. Right internal iliac artery: Unremarkable. Right femoral arteries: Unremarkable. Left common iliac artery: Unremarkable. Left external iliac artery: Unremarkable. Left internal iliac artery: Unremarkable. Left femoral arteries: Unremarkable. SVC, IVC and veins: IVC filter noted in place, with perforation of the filter limbs to the IVC wall. Grossly unremarkable vasculature otherwise. Portal vasculature: Grossly unremarkable. NONVASCULAR: Lungs: Right upper lobe/middle lobe paramediastinal groundglass opacity and mild architectural distortion is of unclear significance. Right upper lobe 0.5 cm pulmonary nodule (image [id number]). No focal consolidation. No pleural effusions. No pneumothorax. 2 small pulmonary nodule seen within the left upper lobe, measuring 2 to 3 mm. Mediastinum/peter: Postoperative changes of median sternotomy, with intact sternal fusion hardware/wires. The thyroid is partially visualized and unremarkable. No lymphadenopathy. Heart/coronary arteries: Normal heart size. Conventional coronary anatomy. Trace coronary atherosclerosis. No pericardial effusion. Liver: Diffuse hepatic steatosis. Hepatomegaly. No focal lesions. Gallbladder/biliary system: Status post cholecystectomy. Otherwise unremarkable biliary ductal system. Spleen:Unremarkable. Pancreas: Unremarkable. Adrenals: Unremarkable. Kidneys/ureters/bladder: Status post left nephrectomy. Unremarkable right kidney, with appropriate compensatory hypertrophy. Subcentimeter inferior pole hypoattenuating structures to small to characterize. No overt mass lesions or large calculi. Unremarkable right ureter. The bladder is unremarkable. Reproductive organs: Unremarkable prostate. Stomach/bowel: Scattered mild colonic diverticulosis, without diverticulitis. The appendix is well-visualized and is unremarkable. The remainder of the visualized stomach/bowel is unremarkable. Vasculature: As above. Lymph nodes: Scattered enlarged peripancreatic lymph nodes measuring up to 2.1 cm are of uncertain significance. Other: No free fluid. Soft tissues: Mild bilateral gynecomastia. Small fat-containing umbilical hernia. Bones: Status post median sternotomy, well healed. Severe lumbosacral spondylosis. No fractures. No aggressive osseous lesions. Lumbar dextrocurvature. IMPRESSION: 1. No evidence of dissection or other a cute aortic syndrome. 2. Right upper/middle lobe groundglass opacities with mild associated architectural distortion, favor secondary to prior treatment. Correlate for history of radiation. 3. Enlarged scattered peripancreatic ly mph nodes are of uncertain significance, and may be related to treated lymphoma, given clinical history. 4. Hepatomegaly and diffuse hepatic kat atosis. Vin Galloway M.D. Fellow Physician, Interventional Radiology 11/08/2018 [facility] Brain Stroke wo contrast CT EXAMINATION: CT head without contrast DATE: 11/08/2018 INDICATION: Code stroke. Left-sided weakness. FINDINGS: Noncontrast CT images of the head are performed without comparison. There is no edema, hemorrhage, or other acute brain abnormality. There is marked atrophy of the cerebellar hemispheres and abel without any atrophy of the supratentorial brain. The paranasal sinuses and skull base are unremarkable. IMPRESSION: No acute abnormality. Aspect score 10. Cerebellar atrophy, suggesting chronic anticonvulsant therapy. Phillip's paralysis should be considered in the differential diagnosis. 11/08/2018 [facility] Brain/Neck Stroke perfusion CTA EXAM: CTA BRAIN EXAM: CTA NECK EXAM: CT PERFUSION BRAIN DATE: 11/08/2018 8:18 PM CDT INDICATION: - code stroke left sided weakness COMPARISON: CT head, contemporaneous TECHNIQUE: - Dynamic CT perfusion images on a limit ed area of the brain parenchyma are performed during bolus injection of iodinated contrast material. Color maps of relative cerebral blood flow, relative cerebral blood volume, time to peak, and mean transit time are created on an independent workstation and are submitted along with the source image data. -Rapid acquisition spiral CT images of t he brain and neck were obtained between the aortic arch and the cranial vertex during intravenous infusion of iodinated contrast for the purposes of CT angiography. 3-D CT angiographic images are created using MIP technique at the acquisition workstation. The source images are also presented for interpretation. IV contrast: 100 cc Omnipaque 350 DLP: 4792 mGy-cm FINDINGS: NECK CTA: Aortic arch: The great vessels originate from the aortic arch in the standard configuration. No origin stenosis is identified. The vertebral artery origins are patent bilaterally. Carotid arteries: The cervical common carotid arteries and cervical internal carotid arteries have a normal course, caliber, and contour. There are areas of calcification at the carotid bifurcations. No hemodynamically significant stenosis of the carotid bifurcations or internal carotid arteries is present by NASCET criteria. There is no evidence of vascular injury. Vertebral arteries: The vertebral arteries have a normal course, caliber and contour. There are some atherosclerotic changes in the left V4 segment. The soft tissues of the neck and other incidental structures are normal. BRAIN CTA: Anterior circulation: Normal appearance and a standard branching pattern. No branch occlusion, vascular injury, arteritis, vascular malformation or aneurysm is identified. Posterior circulation: Left posterior inferior cerebellar artery is not identified, probably occluded and there is a calcification in its presumed origin. The [place] is normal. There is no evidence of cortical collateral circulation, collateral score is not applicable. The deep cerebral veins and major venous sinuses are normal. CT PERFUSION: There is no regional abnormality in cerebral blood flow, cerebral blood volume, or transit time in the imaged areas of the brain to suggest active oligemia or infarction. IMPRESSION: 1. Absence of the left PICA, acute versu s chronic. Otherwise normal CTA of the head 2. Atherosclerotic changes in the caroti d and vertebral arteries without stenosis. 3. Normal CT perfusion. (All qualitative and quantitative assess ments of carotid bifurcation and proximal internal carotid artery stenosis are made referencing the distal internal carotid artery {NASCET criteria}.) 11/08/2018 [facility] Chest 1view DX EXAM: XR CHEST 1 VIEW DATE: 11/08/2018 at 2047 hours INDICATION: - code stroke COMPARISON: None. TECHNIQUE: AP chest. FINDINGS: The study is underpenetrated. Lines, tubes and hardware: There are postoperative changes of a prior median sternotomy with fractured 2nd and 3rd median sternotomy wires. Cervical fusion hardware is partially imaged. Lungs and pleura: Lung volumes are low with scattered bronchovascular crowding. The costophrenic sulci are sharp without effusion. Heart and mediastinum: The heart size is enlarged but evaluation is limited by technique. The mediastinal contours are normal. Bones, soft tissues: No acute abnormality. IMPRESSION: Low lung volumes with scattered bronchovascular crowding. Prior median sternotomy and cardiomegaly. Recommend repeat chest radiograph with improved inspiratory volume. UT SECTION: ER 11/08/2018 [facility] CT THORAX WO CONTRAST No thor acic aortic aneurysm. No displacement of aortic wall calcificationto indirectly suggest dissection. Focal groundglass attenuation in the anterior right upper lobe, similar tothe previous exam. This may reflect persistent pneumonia. Continuedfollow-up is recommended to ensure resolution. Subsegmental atelectasis in the lung bases. RL: 460 AFC: [id number] physician: ANNETTE QUEZADA INDICATION: Chest pain COMPARISON: CTA of the chest dated 09/04/2017 TECHNIQUE: Axial images of the chest were performed without theadministration of intravenous contrast material. Images were reformatted inthe coronal and sagittal plane. CT scan was performed according to ALARA(as low as reasonably achievable) policy. FINDINGS: The patient is status post median sternotomy. The heart is stablyenlarged without p ericardial effusion. No thoracic aortic aneurysm isappreciated. Lack of contrast precludes evaluation for dissection, but nodisplacement of aortic wall calcification is seen to indirectly suggestdissection. There are no pathologically enlarged mediastinal or hilar lymphnodes. No acute process is appreciated in the visualized aspect of theupper abdomen. There is focal groundglass disease in the anterior rightupper lobe. There is subsegmental atelectasis in the lung bases. [facility], Radiant Results Inft User - 09/19/2018 11:10 PM CDTOrdering physician: ANNETTE QUEZADA INDICATION: Chest pain COMPARISON: CTA of the chest dated 09/04/2017 TECHNIQUE: Axial images of the chest were performed without the administration of intravenous contrast material. Images were reformatted in the coronal and sagittal plane. CT scan was performed according to ALARA (as low as reasonably achievable) policy . FINDINGS: The patient is status post median [...] in the lung bases. RL: 460 AFC: [id number] 09/20/2018 [facility] Health Consultation Notes No Data Provided for This Section Discharge Summaries No Data Provided for This Section History and Physicals No Data Provided for This Section Vital Signs Vital Sign Value Date Comments Source Systolic (mm Hg) 109 07/12/2019 [facility] Diastolic (mm Hg) 53 07/12/2019 [facility] Heart Rate 90 07/12/2019 [facility] Respitory Rate 18 07/12/2019 [facility] Temperature Oral (F) 99.9 F 07/12/2019 [facility] Systolic (mm Hg) 106 07/12/2019 [facility] Diastolic (mm Hg) 90 07/12/2019 [facility] Systolic (mm Hg) 140 07/12/2019 [facility] Diastolic (mm Hg) 57 07/12/2019 [facility] Rate 98 07/12/2019 [facility] Respitory Rate 18 07/12/2019 [facility] Heart Rate 112 07/12/2019 [facility] Respitory Rate 18 07/12/2019 [facility] Temperature Oral (F) 101.4 F 07/12/2019 [facility] Temperature Oral (F) 97.8 F 07/11/2019 [facility] Heart Rate 86 07/11/2019 [facility] Respitory Rate 16 07/11/2019 [facility] Systolic (mm Hg) 123 07/11/2019 [facility] Diastolic (mm Hg) 68 07/11/2019 [facility] Weight 182.045 07/11/2019 [facility] Temperature Oral (F) 97.8 F 07/11/2019 [facility] Heart Rate 79 07/11/2019 [facility] Systolic (mm Hg) 132 07/11/2019 [facility] Diastolic (mm Hg) 70 07/11/2019 [facility] Respitory Rate 14 07/11/2019 [facility] Temperature Oral (F) 98.3 F 07/11/2019 [facility] Heart Rate 82 07/11/2019 [facility] Respitory Rate 16 07/11/2019 [facility] Systolic (mm Hg) 96 07/11/2019 [facility] Diastolic (mm Hg) 46 07/11/2019 [facility] Height 187.96 cm 07/11/2019 [facility] Weight 181.818 07/11/2019 [facility] BMI Calculated 51.46 07/11/2019 [facility] Height 187.96 cm 07/10/2019 [facility] BMI Calculated 51.46 07/10/2019 [facility] Weight 181.818 07/10/2019 [facility] Respitory Rate 16 03/13/2019 [facility] Temperature Oral (F) 98.2 F 03/13/2019 [facility] Heart Rate 82 03/13/2019 [facility] Respitory Rate 16 03/13/2019 [facility] Systolic (mm Hg) 101 03/13/2019 [facility] Diastolic (mm Hg) 60 03/13/2019 [facility] Temperature Oral (F) 98.3 F 03/13/2019 [facility] Heart Rate 88 03/13/2019 [facility] Respitory Rate 17 03/13/2019 [facility] Systolic (mm Hg) 100 03/13/2019 [facility] Diastolic (mm Hg) 60 03/13/2019 [facility] Temperature Oral (F) 97.8 F 03/13/2019 [facility] Heart Rate 78 03/13/2019 [facility] Systolic (mm Hg) 92 03/13/2019 [facility] Diastolic (mm Hg) 54 03/13/2019 [facility] Height 187.96 cm 03/13/2019 [facility] Weight 190.909 03/13/2019 [facility] BMI Calculated 54.04 03/13/2019 [facility] Height 187.96 cm 03/12/2019 [facility] BMI Calculated 53.14 03/12/2019 [facility] Weight 187.727 03/12/2019 [facility] Systolic (mm Hg) 106 01/11/2019 [facility] Diastolic (mm Hg) 71 01/11/2019 [facility] Temperature Oral (F) 98.3 F 01/11/2019 [facility] Systolic (mm Hg) 119 01/11/2019 [facility] Diastolic (mm Hg) 72 01/11/2019 [facility] Systolic (mm Hg) 107 01/11/2019 [facility] Diastolic (mm Hg) 67 01/11/2019 [facility] Heart Rate 20 01/11/2019 [facility] Respitory Rate 20 01/11/2019 [facility] Temperature Oral (F) 98.4 F 01/11/2019 [facility] Height 187.96 cm 01/11/2019 [facility] BMI Calculated 52.49 01/11/2019 [facility] Weight 185.455 01/11/2019 [facility] Temperature Oral (F) 98.1 F 11/11/2018 [facility] Heart Rate 77 11/11/2018 [facility] Respitory Rate 18 11/11/2018 [facility] Systolic (mm Hg) 139 11/11/2018 [facility] Diastolic (mm Hg) 69 11/11/2018 [facility] Temperature Oral (F) 98.2 F 11/11/2018 [facility] Heart Rate 81 11/11/2018 [facility] Respitory Rate 18 11/11/2018 [facility] Systolic (mm Hg) 139 11/11/2018 [facility] Diastolic (mm Hg) 74 11/11/2018 [facility] Temperature Oral (F) 98.1 F 11/11/2018 [facility] Heart Rate 82 11/11/2018 [facility] Respitory Rate 18 11/11/2018 [facility] Systolic (mm Hg) 135 11/11/2018 [facility] Diastolic (mm Hg) 70 11/11/2018 [facility] Height 187.96 cm 11/09/2018 [facility] Weight 190 11/09/2018 [facility] BMI Calculated 53.78 11/09/2018 [facility] Systolic (mm Hg) 126 09/29/2018 [facility] Diastolic (mm Hg) 92 09/29/2018 [facility] Heart Rate 87 09/29/2018 [facility] Temperature Oral (F) 36.72 Rose 09/29/2018 [facility] Respitory Rate 18 09/29/2018 [facility] Weight 194 09/29/2018 [facility] Height 188 cm 09/28/2018 [facility] Systolic (mm Hg) 97 09/20/2018 [facility] Diastolic (mm Hg) 58 09/20/2018 [facility] Heart Rate 98 09/20/2018 [facility] Temperature Oral (F) 35.22 Rose 09/20/2018 [facility] Respitory Rate 18 09/20/2018 [facility] Height 188 cm 09/20/2018 [facility] Weight 197.632 09/20/2018 [facility] Encounters Location Location Details Encounter Type Encounter Number Reason For Visit Attending Provider ADM Date DC Date Status Source Outpatient [id number] TANA BENNETT 01/08/2016 Active [facility] Orders Only [id number] No Doctor Unassigned 09/15/2018 [facility] Medicine/Surgery CLC 4A Emergency [id number] Annette Quezada MD 09/20/2018 09/20/2018 [facility] CT/ Vascular (LIZ 9A) Emergency [id number] Bernarda Solano DNP 09/2809/29/2018 [facility] Inpatient [id number] Qing Staples 11/09/2018 11/11/2018 [facility] Emergency [id number] Eric Romero 01/11/2019 01/11/2019 [facility] Observation [id number] Mo Dawson 03/12/2019 03/13/2019 [facility] Observation [id number] Jimena Hester 07/10/2019 07/11/2019 [facility] Emergency [id number] Wesley Bunn 07/12/2019 07/12/2019 [facility] Procedures Procedure Code Date Perfomer Comments Source ECHO ROUTINE W/DOPPLER COLOR 40 09/29/2018 [facility] POCT GLUCOSE (AUTOMATED) 63401 09/29/2018 Sony [facility] MAGNESIUM [id number] 09/29/2018 [facility] XR CHEST 1 VW 56973 09/29/2018 [facility] TROPONIN I 61542 09/29/2018 [facility] BASIC METABOLIC PANEL (NA, K, CL, CO2, G LUCOSE, BUN, [place]ATININE, [place]) [address] 09/29/2018 [facility] CBC WITH DIFF 02740 09/29/2018 [facility] N-TERMINAL PRO-BNP 78523 09/29/2018 [facility] CBC WITH DIFFERENTIAL 13329 09/29/2018 [facility] PROTHROMBIN TIME / INR 74103 09/29/2018 [facility] D-DIMER 63614 09/29/2018 [facility] ACTIVATED PARTIAL THRMPLAS GIRISH 60814 09/29/2018 [facility] EXTRA TUBE LAV 45171 09/29/2018 [facility] EKG-12 LEAD 4135 09/29/[address] [facility] CT THORAX WO CONTRAST 65126 09/20/2018 [facility] GALV/CLC ONLY - URINE DRUG (IMMUNOASSAY) - 4 ER PANEL 39655 09/20/2018 [facility] HEPATIC FUNCTION PANEL (68470) (ALB,T.AZ O,BILI T,BU/BC,ALT,AST,ALK PHOS) 34548 09/20/2018 [facility] ETHANOL 69634 09/20/2018 [facility] EXTRA TUBE LT. BLUE 16588 09/20/2018 [facility] EXTERNAL PROVIDER RECORDS [id number] 09/15/2018 Doctor Unassigned [facility] Aortic aneurysm repair [id number] [facility] Back care<sup>1</sup> [id number] Pt states he has a titanium tube in his back due to spinal stenosis [facility] Cholecystectomy [id number] [facility] IVC - Insertion of inferior vena caval filter [id number] [facility] Nephrectomy<sup>2</sup> 231104 003 left [facility] Procedure on bone<sup>3</sup> [id number] titanium p late in neck [facility] Surgical procedure on cervical spine [id number] [facility] Assessment and Plan Assessment and Plan Date Source Extracted from:Title: Neurology Consult Author: Kayleigh Rodriguez MD Date: [...] discharge d, if cleared by PT/OT. Extracted from:Title: History and Physical Author: Jimena Hester DO Date: 07/10/19 Left sided weakness Headache - TIA, r/o CVA - check MRI brain - Previous ECHO in February with no evide nce of thrombus - Carotid ultrasoundin Februarynegative f or significant stenosis, PT/OT/ST Neurochecks Check lipid panel [...] hba1c Hx of CHF? - TTE on 03/13/2019EF of 55 to 60% -Continue home meds ofLasix and aldacton e Hyperlipidemia -Continue statin Reported nonobstructive CAD -Cardiac catheterization on 04/28/2018no significant CAD History of AAA with type [...] Location, Expected LOS: 1 Midnight, Jimena Hester [facility] DO, Admit Review/Approve Yes, Isolation: Contact, Droplet, CVA (cerebral vascular accident) xarelto [facility] vs SNF pending PT/OT eval. anticipate 1 midnight stay. 07/11/2019 [facility] Extracted from:Title: Overnight Events Author: Shari Feliciano MD Date: [...] to leave his room. 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 Patient requested to speak to me again. [...] his reported symptoms and medical history. Extracted from:Title: General Admission H&P * Author: Mo Dawson MD Date: 03/12/19 Impression and Plan Impression: Left [...] as tolerated Vitals as per unit policy. Dietplan to do dysphagia screen if patient passes then heart healthy Continue telemetry We will start on aspirin, atorvastatin Check serial cardiac enzymes We will place patient on stroke/TIA MPP Check MRI of the brain, carotid Doppler and echo Will get neurology and cardiology evaluation We will reconcile home medication when available CODE STATUS full Prognosis guarded PT/OT DVT prophylaxisLovenox SC 03/13/2019 [facility] Plan of Care Plan of Care Date Source CREATININE (SERUM) 09/29/2019 [facility] CREATININE (SERUM) 09/20/2019 [facility] CREATININE (SERUM) 09/05/2019 [facility] LDL-C 07/15/2019 [facility] HgA1C 01/14/2019 [facility] INFLUENZA VACCINE 10/19/2018 [facility] Health EKG-12 LEAD ROUTINE HEART STATION Routine ONCE for 1 Occurrences starting 09/29/2018 until 09/29/2018 09/29/2018 [facility] Troponin I LAB Routine EVERY 6 HOURS (START TIME ADJUSTABLE) START TIME ADJUSTABLE for 3 Occurrences starting 09/20/2018 until 09/20/2018, 1 completed 09/20/2018 [facility] DTaP,Tdap,and Td Vaccines (1 - Tdap) 1989 [facility] Health FOOT EXAM 1988 [facility] Health EYE EXAM 1980 [facility] Health PNEUMOCOCCAL 0-64 YEARS COMBINED SERIES (1 of 1 - PPSV23) 1976 [facility] Health Social History Social History Date Source Social History TypeResponse Alcohol Never Employment/School Status: Unemployed, disabled. Exercise 1 Substance Abuse Use: None. Smoking Status Current every day smoker; Type: Cigars; Previous treatment: None; Ready to change: Yes; Concerns about tobacco use in household: No; Exposure to Tobacco Smoke None; Cigarette Smoking Last 365 Days Yes; Reg Smoking Cessation Counseling Yes; Started at age: [age]; entered on: 01/11/19 1" I don't exercise , aboiut six mpnthsa goi was six hundred pounds i lost theweightbyhaving cancer" 11/09/2018 [facility] Social History TypeResponse Alcohol Never Employment/School Status: Unemployed, disabled. Exercise 1 Substance Abuse Use: None. Smoking Status Current every day smoker; Type: Cigars; Previous treatment: None; Ready to change: Yes; Concerns about tobacco use in household: No; Exposure to Tobacco Smoke None; Cigarette Smoking Last 365 Days Yes; Reg Smoking Cessation Counseling Yes; Started at age: 46.0; entered on: 07/10/19 1" I don't exercise , aboiut six mpnthsa goi was six hundred pounds i lost theweightbyhaving cancer" 11/09/2018 [facility] Tobacco UseTypesPacks/DayYears UsedDate Current Some Day Smoker Smokeless Tobacco: Never Used Comments: Pt. smokes 1-2 cigarettes a day. Attempted to quit with Chantix x 1 month ago. Alcohol UseDrinks/Weekoz/WeekComments No Sex Assigned at BirthDate Recorded Not on file Job Start DateOccupationIndustry Not on file Not on file Not on file Travel HistoryTravel StartTravel End No recent travel history available. documented as of this encounter 09/28/2018 [facility] Health Family History No Data Provided for This Section Advance Directives No Data Provided for This Section Functional Status No Data Provided for This Section
--- OUTSIDE RECORDS SUMMARY | 2019-07-27 19:15 | XMS REPORT | Summary of Care ---
Author Author [facility] Address Unknown Phone Unavailable Encounter ALFREDA Qiu(MARTHA) [id number] Date(s): 01/11/19 - 01/11/19 [facility] [address] [employer] provided by [facility] [place] [address]- Encounter Diagnosis Atypical chest pain (Discharge Diagnosis) - 01/11/19 Discharge Disposition: Home or Self Care Attending Physician: Eric Romero MD Vital Signs 1 2 3 Most recent to oldest [Reference Range]: 187.96 cm (01/11/19 1:21 PM) Height 98.3 DegF (01/11/19 4:27 PM) 98.4 DegF (01/11/19 1:21 PM) Temperature Oral [96.4-99.1 DegF] 106/71 mmHg (01/11/19 4:27 PM) 119/72 mmHg (01/11/19 2:30 PM) 107/67 mmHg (01/11/19 1:21 PM) Blood Pressure [90-140/60-90 mmHg] 20 BRMIN (01/11/19 1:21 PM) Respiratory Rate [14-20 BRMIN] 20 bpm *LOW* (01/11/19 1:21 PM) Peripheral Pulse Rate [60-100 bpm] 185.455 kg (01/11/19 1:21 PM) Weight 52.49 m2 (01/11/19 1:21 PM) Body Mass Index Problem List Condition [...] Zofran hives Active Neurontin Active Reglan Active [place] Active Paper Tape Active traMADol Active Medications morphine Sulfate 4 mg, 1 mL, Route: IVP, Drug form: SOLN, ONCE, Dosing Weight 185.455, kg, Priori ty: STAT, Start date: 01/11/19 15:00:00 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 WORKER, Stop date: 01/11/19 15:00:00 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 WORKER, 0 Notes: (Same as:MORPhine Sulfate) Start Date: 01/11/19 Stop Date: 01/11/19 Status: Completed morphine Sulfate 4 mg, Route: IVP, ONCE, Dosing Weight 185.455, kg, Priority: STAT, Start date: 03/13/18 16:17:00 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 WORKER, Stop date: 01/11/19 16:17:00 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 WORKER Start Date: 01/11/19 Stop Date: 01/11/19 Status: Completed Omnipaque 350mg/ml 100 mL, Route: IVP, Drug Form: SOLN, Dosing Weight 185.455, kg, ONCALL, STAT, St art date: 01/11/19 16:06:00 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 WORKER, Duration: 1 doses or times, Dose = 2.2ml/kg, M ax dose = 100ml -- "To be infused by Radiology Staff ONLY" Start Date: 01/11/19 Stop Date: 01/11/19 Status: Completed Results Most recent to 1 oldest [Reference Range]: CDC HIV 4th GEN Negative [Negative] *NA* (01/11/19 3:02 PM) Neutrophils # 4.5 K/CMM [1.5-8.1 K/CMM] (01/11/19 2:50 PM) Lymphocytes # 1.8 K/CMM [1.0-5.5 K/CMM] (01/11/19 2:50 PM) Monocytes # [0.0-0.8 0.6 K/CMM K/CMM] (01/11/19 2:50 PM) Eosinophils # 0.1 K/CMM [0.0-0.5 K/CMM] (01/11/19 2:50 PM) Basophils # [0.0-0.2 0.1 K/CMM K/CMM] (01/11/19 2:50 PM) eGFR 68 mL/min/1.73m2 1 *NA* (01/11/19 2:50 PM) AGAP [10.0-20.0 15.8 mEq/L mEq/L] (01/11/19 2:50 PM) Basophils [0.0-1.0 1.0 % %] (01/11/19 2:50 PM) BUN [7-22 mg/dL] 9 mg/dL (01/11/19 2:50 PM) Calcium Lvl 9.7 mg/dL [8.5-10.5 mg/dL] (01/11/19 2:50 PM) Chloride Lvl [95-109 102 mEq/L mEq/L] (01/11/19 2:50 PM) CO2 [24-32 mEq/L] 26 mEq/L (01/11/19 2:50 PM) Creatinine Lvl 1.25 mg/dL [0.50-1.40 mg/dL] (01/11/19 2:50 PM) Eosinophils [0.0-4.0 2.0 % %] (01/11/19 2:50 PM) Glucose Lvl [70-99 207 mg/dL mg/dL] *HI* (01/11/19 2:50 PM) Hct [42.0-54.0 %] 42.8 % (01/11/19 2:50 PM) Hgb [14.0-18.0 g/dL] 14.7 g/dL (01/11/19 2:50 PM) Potassium Lvl 3.8 mEq/L [3.5-5.1 mEq/L] (01/11/19 2:50 PM) Lymphocytes 25.9 % [20.0-40.0 %] (01/11/19 2:50 PM) MCH [27.0-31.0 pg] 30.5 pg (01/11/19 2:50 PM) MCHC [32.0-36.0 34.4 g/dL g/dL] (01/11/19 2:50 PM) MCV [80.0-94.0 fL] 88.5 fL (01/11/19 2:50 PM) Monocytes [2.0-12.0 7.9 % %] (01/11/19 2:50 PM) MPV [7.4-10.4 fL] 8.0 fL (01/11/19 2:50 PM) Sodium Lvl [135-145 140 mEq/L mEq/L] (01/11/19 2:50 PM) Platelet [133-450 215 K/CMM K/CMM] (01/11/19 2:50 PM) Segs [45.0-75.0 %] 63.2 % (01/11/19 2:50 PM) RBC [4.70-6.10 4.84 M/CMM M/CMM] (01/11/19 2:50 PM) RDW [11.5-14.5 %] 15.5 % *HI* (01/11/19 2:50 PM) Troponin-I <0.02 ng/mL [0.00-0.40 ng/mL] (01/11/19 2:50 PM) WBC [3.7-10.4 K/CMM] 7.1 K/CMM (01/11/19 2:50 PM) 1Result Comment: The eGFR is calculated [...] Started at [age] e: [age]; entered on: 01/11/19 1" I don't exercise , aboiut six mpnthsagoi was six hundred pounds i lost theweightbyhaving cancer" Assessment and Plan No data available for this section
--- OUTSIDE RECORDS SUMMARY | 2019-07-27 19:15 | XMS REPORT | Summary of Care ---
Author Author [facility] Organization [facility] Address Unknown Phone Unavailable Encounter ALFREDA Qiu(MARTHA) [id number] Date(s): 11/08/18 - 11/11/18 [facility] [address] [employer] provided by [facility] [place] [address]- Discharge Disposition: Home or Self Care Attending Physician: Qing Staples MD Admitting Physician: Qing Staples MD Vital Signs 1 2 3 Most recent to oldest [Reference Range]: 187.96 cm (11/09/18 2:43 AM) Height 98.1 DegF (11/11/18 11:18 AM) 98.2 DegF (11/11/18 7:36 AM) 98.1 DegF (11/11/18 3:49 AM) Temperature Oral [96.4-99.1 DegF] 139/69 mmHg (11/11/18 11:18 AM) 139/74 mmHg (11/11/18 7:36 AM) 135/70 mmHg (11/11/18 3:49 AM) Blood Pressure [90-140/60-90 mmHg] 18 BRMIN (11/11/18 11:18 AM) 18 BRMIN (11/11/18 7:36 AM) 18 BRMIN (11/11/18 3:49 AM) Respiratory Rate [14-20 BRMIN] 77 bpm (11/11/18 11:18 AM) 81 bpm (11/11/18 7:36 AM) 82 bpm (11/11/18 3:49 AM) Peripheral Pulse Rate [60-100 bpm] 190 kg (11/09/18 2:43 AM) Weight 53.78 m2 (11/09/18 2:43 AM) Body Mass Index Problem List Condition Effective [...] Zofran hives Active Neurontin Active Reglan Active Guion Active Paper Tape Active traMADol Active Medications acetaminophen 650 mg, 2 tab, Route: PO, Drug form: TAB, Q6H, Dosing Weight 190, kg, PRN Pain S core 1-3, Start date: 11/10/18 23:18:00 CDT, Duration: 30 day, Stop date: 23:17:00 CDT, 0 Notes: Do not exceed 4 gm/day. (Same as: Tylenol) Start Date: 11/10/18 Stop Date: 11/10/18 Status: Discontinued aspirin 325 mg tablet, enteric coated 325 mg, 1 tab, Route: PO, Drug form: ECTAB, Q24H, kg, Start date: 11/08/18 22:00 :00 CDT, Duration: 30 day, Stop date: 12/07/18 22:00:00 CDT, 0 Notes: (Do Not Crush) Do not crush or chew. Start Date: 11/08/18 Stop Date: 11/09/18 Status: Deleted aspirin 325 mg tablet, enteric coated 325 mg, 1 tab, Route: PO, Drug form: ECTAB, ONCE, Dosing Weight 190, kg, Start d ate: 11/09/18 3:13:00 CDT, Stop date: 11/09/18 3:13:00 CDT, 0 Notes: (Do Not Crush) Do not crush or chew. Start Date: 11/09/18 Stop Date: 11/09/18 Status: Completed atorvastatin 80 mg, 2 tab, Route: PO, Drug form: TAB, Bedtime, kg, Start date: 11/09/18 21:00 :00 CDT, Duration: 30 day, Stop date: 12/08/18 21:00:00 CDT, 0 Notes: (Same as: Lipitor) Start Date: 11/09/18 Stop Date: 11/11/18 Status: Discontinued atorvastatin 40 mg oral tablet 80 mg = 2 tab, PO, Bedtime, # 90 tab, 0 Refill(s), Pharmacy: [facility] Start Date: 11/11/18 Status: Ordered atorvastatin 40 mg oral tablet 80 mg = 2 tab, PO, Bedtime, # 90 tab, 0 Refill(s), Pharmacy: [facility] #[id number] Start Date: 11/10/18 Stop Date: 11/11/18 Status: Discontinued Dextrose 50% Syringe 12.5 gm, 25 mL, Route: IVP, Drug Form: INJ, Dosing Weight 190, kg, PRN, PRN Bloo d Glucose Results, Start date: 11/10/18 6:22:00 CDT, Duration: 30 day, Stop date : 12/10/18 6:21:00 CDT, 0 Start Date: 11/10/18 Stop Date: 11/11/18 Status: Discontinued Dextrose 50% Syringe 25 gm, 50 mL, Route: IVP, Drug Form: INJ, Dosing Weight 190, kg, PRN, PRN Blood Glucose Results, Start date: 11/10/18 6:22:00 CDT, Duration: 30 day, Stop date: 12/10/18 6:21:00 CDT, 0 Start Date: 11/10/18 Stop Date: 11/11/18 Status: Discontinued digoxin 125 mcg (0.125 mg) oral tablet 125 microgram = 1 tab, PO, Daily, # 30 tab, 0 Refill(s) Start Date: 11/09/18 Status: Ordered digoxin 125 mcg (0.125 mg) oral tablet 125 microgram, 1 tab, Route: PO, Drug form: TAB, Daily, Dosing Weight 190, kg, S tart date: 11/10/18 9:00:00 CDT, Duration: 30 day, Stop date: 12/09/18 9:00:00 C DT, 0 Notes: Take on an Empty Stomach (Same as: Lanoxin) Start Date: 11/10/18 Stop Date: 11/11/18 Status: Discontinued docusate-senna 50 mg-8.6 mg oral tablet 1 tab, Route: PO, Drug Form: TAB, Dosing Weight 181.818, kg, Q12H, Start date: 0 11/09/18 9:00:00 CDT, Duration: 30 day, Stop date: 12/08/18 21:00:00 CDT, 0 Notes: (Same as Senokot-S) Equiv. to Marjorie-Colace. Start Date: 11/09/18 Stop Date: 11/11/18 Status: Discontinued glucagon 1 mg, Route: IM, Drug form: PDR/INJ, PRN, Dosing Weight 190, kg, PRN Blood Gluco se Results, Start date: 11/10/18 6:22:00 CDT, Duration: 30 day, Stop date: 12/10 6:21:00 CDT, 0 Start Date: 11/10/18 Stop Date: 11/11/18 Status: Discontinued heparin 5000 units/mL injectable solution 7,500 unit, 1.5 mL, Route: SUB-Q, Drug form: INJ, Q8H, Dosing Weight 181.818, kg , Start date: 11/09/18 0:00:00 CDT, Stop date: 12/08/18 16:00:00 CDT, 0 Notes: porcine heparin Start Date: 11/09/18 Stop Date: 11/09/18 Status: Discontinued hydrALAZINE 10 mg, 0.5 mL, Route: IVP, Drug form: INJ, Q6H, kg, PRN Hypertension, Start date : 11/08/18 21:04:00 CDT, Duration: 30 day, Stop date: 12/08/18 21:03:00 CDT, 0 Notes: (Same as: Apresoline)Push over 5 minutes Start Date: 11/08/18 Stop Date: 11/11/18 Status: Discontinued insulin lispro 10 unit, SUB-Q, TID-Before Meals, 0 Refill(s) Start Date: 11/11/18 Stop Date: 11/11/18 Status: Discontinued insulin lispro 2 unit, 0.02 mL, Route: SUB-Q, Drug form: SOLN, TID-Before Meals, Dosing Weight 190, kg, PRN Blood Glucose Results, Start date: 11/10/18 6:22:00 CDT, Duration: 30 day, Stop date: 12/10/18 6:21:00 CDT, 0 Notes: (Same as: Humalog) Roll in palms of hands gently; Do not shake vigorously . WASTE: F/P - Black; E - Municipal Trash BinStable for 28 days at room [facility].Expires in days from Date Start Date: 11/10/18 Stop Date: 11/11/18 Status: Discontinued insulin lispro 4 unit, 0.04 mL, Route: SUB-Q, Drug form: SOLN, TID-Before Meals, Dosing Weight 190, kg, PRN Blood Glucose Results, Start date: 11/10/18 6:22:00 CDT, Duration: 30 day, Stop date: 12/10/18 6:21:00 CDT, 0 Notes: (Same as: Humalog) Roll in palms of hands gently; Do not shake vigorously . WASTE: F/P - Black; E - Municipal Trash BinStable for 28 days at room [facility].Expires in days from Date Start Date: 11/10/18 Stop Date: 11/11/18 Status: Discontinued insulin lispro 6 unit, 0.06 mL, Route: SUB-Q, Drug form: SOLN, TID-Before Meals, Dosing Weight 190, kg, PRN Blood Glucose Results, Start date: 11/10/18 6:22:00 CDT, Duration: 30 day, Stop date: 12/10/18 6:21:00 CDT, 0 Notes: (Same as: Humalog) Roll in palms of hands gently; Do not shake vigorously . WASTE: F/P - Black; E - Municipal Trash BinStable for 28 days at room [facility].Expires in days from Date Start Date: 11/10/18 Stop Date: 11/11/18 Status: Discontinued insulin lispro 8 unit, 0.08 mL, Route: SUB-Q, Drug form: SOLN, TID-Before Meals, Dosing Weight 190, kg, PRN Blood Glucose Results, Start date: 11/10/18 6:22:00 CDT, Duration: 30 day, Stop date: 12/10/18 6:21:00 CDT, 0 Notes: (Same as: Humalog) Roll in palms of hands gently; Do not shake vigorously . WASTE: F/P - Black; E - Municipal Trash BinStable for 28 days at [facility].Expires in days from Date Start Date: 11/10/18 Stop Date: 11/11/18 Status: Discontinued insulin lispro 10 unit, 0.1 mL, Route: SUB-Q, Drug form: SOLN, TID-Before Meals, Dosing Weight 190, kg, PRN Blood Glucose Results, Start date: 11/10/18 6:22:00 CDT, Duration: 30 day, Stop date: 12/10/18 6:21:00 CDT, 0 Notes: (Same as: Humalog) Roll in palms of hands gently; Do not shake vigorously . WASTE: F/P - Black; E - Municipal Trash BinStable for 28 days at [facility].Expires in days from Date Start Date: 11/10/18 Stop Date: 11/11/18 Status: Discontinued Isolyte S PH-7.4 (Bolus) IV 1,000 mL, 1000 ml/hr, Infuse Over: 1 hr, Route: IV, 1,000, Drug form: SOLN, ONCE , Dosing Weight 181.818 kg, Start date: 11/08/18 21:21:00 CDT, Stop date: 21:21:00 CDT, 0 Notes: (Same as: Isolyte S PH 7.4) Start Date: 11/08/18 Stop Date: 11/08/18 Status: Completed isosorbide mononitrate 30 mg oral tablet, extended release 30 mg = 1 tab, PO, QAM, # 30 tab, 0 Refill(s) Start Date: 11/09/18 Status: Ordered Jardiance 25 mg oral tablet 25 mg = 1 tab, PO, QAM, 0 Refill(s) Start Date: 11/09/18 Status: Ordered Keppra 500 mg oral tablet 500 mg, 1 tab, Route: PO, Drug form: TAB, Q12H, Dosing Weight 181.818, kg, Start date: 11/09/18 9:00:00 CDT, Stop date: 12/08/18 21:00:00 CDT, 0 Notes: (Same as:Keppra) Start Date: 11/09/18 Stop Date: 11/09/18 Status: Voided With Results labetalol 10 mg, 2 mL, Route: IVP, Drug form: INJ, Q15Min, kg, PRN Hypertension, Start nay e: 11/08/18 21:04:00 CDT, Duration: 30 day, Stop date: 12/08/18 21:03:00 CDT, 0 Start Date: 11/08/18 Stop Date: 11/11/18 Status: Discontinued lamoTRIgine 25 mg oral tablet 25 mg = 1 tab, PO, BID, # 60 tab, 0 Refill(s) Start Date: 11/09/18 Status: Ordered lamoTRIgine 25 mg oral tablet 25 mg, 1 tab, Route: PO, Drug form: TAB, BID, Dosing Weight 190, kg, Start date: 11/09/18 17:00:00 CDT, Duration: 30 day, Stop date: 12/09/18 9:00:00 CDT, 0 Notes: (Same as:LaMICtal) Start Date: 11/09/18 Stop Date: 11/11/18 Status: Discontinued Lantus 100 units/mL 20 unit, SUB-Q, Bedtime, # 10 mL, 3 Refill(s) Start Date: 11/10/18 Status: Ordered Lantus 100 units/mL 20 unit, 0.2 mL, Route: SUB-Q, Drug form: SOLN, Bedtime, Dosing Weight 190, kg, Start date: 11/11/18 0:50:00 CDT, Duration: 30 day, Stop date: 12/10/18 21:00:00 CDT, 0 Notes: (Same as: Lantus)Do not hold insulin without contacting prescriberWASTE: F/P - Black; E - [employer] Trash Bin"single patient use only"Stable for 28 days at room temperature Expires in days from Date Start Date: 11/11/18 Stop Date: 11/11/18 Status: Discontinued Lantus Solostar Pen 100 units/mL subcutaneous solution 10 unit, 0.1 mL, Route: SUB-Q, Drug form: SOLN, Bedtime, Dosing Weight 190, kg, Start date: 11/10/18 23:21:00 CDT, Duration: 30 day, Stop date: 12/10/18 21:00:0 0 CDT, 0 Notes: (Same as: Lantus)Do not hold insulin without contacting prescriberWASTE: Farhad/P Aki Reese; E - [employer] Trash Bin"single patient use only"Stable for 28 days at room temperature Expires in days from Date Start Date: 11/10/18 Stop Date: 11/11/18 Status: Discontinued Lasix 40 mg oral tablet 40 mg = 1 tab, PO, BID, 0 Refill(s) Start Date: 11/09/18 Status: Ordered Lasix 40 mg oral tablet 40 mg, 1 tab, Route: PO, Drug form: TAB, BID Diuretic, Dosing Weight 190, kg, St art date: 11/09/18 15:00:00 CDT, Duration: 30 day, Stop date: 12/09/18 14:00:00 CDT, 0 Notes: (Same as: Lasix) May cause GI upset. Give with food or milk. Start Date: 11/09/18 Stop Date: 11/11/18 Status: Discontinued Lyrica 25 mg, 1 cap, Route: PO, Drug form: CAP, Q24H, Dosing Weight 190, kg, Start date : 11/11/18 1:00:00 CDT, Duration: 30 day, Stop date: 12/10/18 1:00:00 CDT, 0 Notes: (Same as: Lyrica) Start Date: 11/11/18 Stop Date: 11/11/18 Status: Discontinued Macrobid 100 mg, 1 cap, Route: PO, Drug form: CAP, Q12H, Start date: 11/09/18 13:19:00 CD T, Duration: 5 day, Stop date: 11/14/18 9:00:00 CDT, 0 Notes: Not recommended for patients with CrCl<30 ml/min (Same as:Macrobid) With food. Start Date: 11/09/18 Stop Date: 11/11/18 Status: Discontinued metoprolol tartrate 25 mg oral tablet 25 mg = 1 tab, PO, BID, # 60 tab, 0 Refill(s) Start Date: 11/09/18 Status: Ordered morphine Sulfate 4 mg, 1 mL, Route: IVP, Drug form: SOLN, ONCE, Dosing Weight 181.818, kg, Priori ty: STAT, Start date: 11/09/18 0:14:00 CDT, Stop date: 11/09/18 0:14:00 CDT, 0 Notes: (Same as:MORPhine Sulfate) Start Date: 11/09/18 Stop Date: 11/09/18 Status: Completed nitrofurantoin 100 mg, Route: PO, TID, Dosing Weight 190, kg, Start date: 11/09/18 13:00:00 CDT , Duration: 30 day, Stop date: 12/09/18 9:00:00 CDT Start Date: 11/09/18 Stop Date: 11/09/18 Status: Deleted Plavix 75 mg, 1 tab, Route: PO, Drug form: TAB, Daily, Dosing Weight 181.818, kg, Start date: 11/09/18 9:00:00 CDT, Stop date: 12/08/18 9:00:00 CDT, 0 Notes: (Same As: Plavix) Start Date: 11/09/18 Stop Date: 11/09/18 Status: Voided With Results potassium chloride 20 mEq/15 mL oral liquid 40 mEq, 30 mL, Route: PO, Drug form: LIQ, ONCE, Dosing Weight 190, kg, Start nay e: 11/09/18 14:31:00 CDT, Stop date: 11/09/18 14:31:00 CDT, 0 Notes: (Same as: Potassium Chloride) Start Date: 11/09/18 Stop Date: 11/09/18 Status: Completed promethazine 12.5 mg, 0.5 mL, Route: IVPB, Drug form: INJ, ONCE, Dosing Weight 181.818, kg, P riority: STAT, Start date: 11/09/18 0:14:00 CDT, Stop date: 11/09/18 0:14:00 CDT , 0 Notes: . (Same as: Phenergan) Start Date: 11/09/18 Stop Date: 11/09/18 Status: Completed Ranexa 500 mg, PO, BID, 0 Refill(s) Start Date: 11/09/18 Status: Ordered rivaroxaban 20 mg oral tablet 20 mg = 1 tab, PO, QPM, # 90 tab, 0 Refill(s), Pharmacy: [id number] Start Date: 11/11/18 Status: Ordered rivaroxaban 20 mg oral tablet 20 mg = 1 tab, PO, QPM, # 90 tab, 0 Refill(s), Pharmacy: [id number] Start Date: 11/10/18 Stop Date: 11/11/18 Status: Discontinued Saline Flush 0.9% 10 mL, Route: IVP, Drug Form: INJ, kg, PRN, PRN Line Flush, Start date: 11/08/18 20:18:00 CDT, Duration: 30 day, Stop date: 12/08/18 20:17:00 CDT, 0 Notes: Same as: BD Posiflush Sterile Start Date: 11/08/18 Stop Date: 11/11/18 Status: Discontinued Saline Flush 0.9% 10 ml, Route: IVP, Drug Form: INJ, kg, Q12H, Start date: 11/09/18 9:00:00 CDT, D uration: 30 day, Stop date: 12/08/18 21:00:00 CDT, 0 Notes: Same as: BD Posiflush Sterile Start Date: 11/09/18 Stop Date: 11/11/18 Status: Discontinued Saline Flush 0.9% 10 ml, Route: IVP, Drug Form: INJ, kg, PRN, PRN Line Flush, Start date: 11/08/18 21:04:00 CDT, Duration: 30 day, Stop date: 12/08/18 21:03:00 CDT, 0 Notes: Same as: BD Posiflush Sterile Start Date: 11/08/18 Stop Date: 11/11/18 Status: Discontinued Sodium Chloride 0.9% IV 1,000 mL 1,000 mL, Rate: 75 ml/hr, Infuse over: 13.3 hr, Route: IV, Total Volume: 1,000, Start date: 11/08/18 21:04:00 CDT, Duration: 30 day, Stop date: 12/08/18 21:03:0 0 CDT, 0 Start Date: 11/08/18 Stop Date: 11/09/18 Status: Discontinued spironolactone 50 mg, 2 tab, Route: PO, Drug form: TAB, Daily, Dosing Weight 190, kg, Start nay e: 11/10/18 9:00:00 CDT, Duration: 30 day, Stop date: 12/09/18 9:00:00 CDT, 0 Notes: (Same As: Aldactone) Start Date: 11/10/18 Stop Date: 11/11/18 Status: Discontinued spironolactone 50 mg oral tablet 50 mg = 1 tab, PO, Daily, # 30 tab, 1 Refill(s) Start Date: 11/09/18 Stop Date: 12/09/18 Status: Ordered Toprol-XL 25 mg oral tablet, extended release 50 mg, 2 tab, Route: PO, Drug form: ERTAB, Daily, Start date: 11/10/18 9:00:00 C DT, Duration: 30 day, Stop date: 12/09/18 9:00:00 CDT, 0 Notes: (Same as: Toprol XL) Do Not Crush Start Date: 11/10/18 Stop Date: 11/11/18 Status: Discontinued trazodone 150 mg, 3 tab, Route: PO, Drug form: TAB, Bedtime, Dosing Weight 190, kg, Start date: 11/09/18 21:00:00 CDT, Duration: 30 day, Stop date: 12/08/18 21:00:00 CDT, 0 Notes: (Same As: Desyrel) Start Date: 11/09/18 Stop Date: 11/11/18 Status: Discontinued trazodone 150 mg oral tablet 150 mg = 1 tab, PO, Bedtime, # 30 tab, 0 Refill(s) Start Date: 11/09/18 Status: Ordered Xarelto 20 mg, 1 tab, Route: PO, Drug form: TAB, QPM, Dosing Weight 190, kg, Start date: 11/09/18 17:00:00 CDT, Duration: 30 day, Stop date: 12/08/18 17:00:00 CDT, 0 Notes: (Same as: Xarelto)Administer with food Start Date: 11/09/18 Stop Date: 11/11/18 Status: Discontinued Results 1 2 3 Most recent to oldest [Reference Range]: Negative *NA* (11/08/18 9:58 PM) CDC HIV 4th GEN [Negative] 3.5 K/CMM (11/08/18 9:38 PM) 3.6 K/CMM (11/08/18 8:25 PM) Neutrophils # [1.5-8.1 K/CMM] 2.0 K/CMM (11/08/18 9:38 PM) 2.1 K/CMM (11/08/18 8:25 PM) Lymphocytes # [1.0-5.5 K/CMM] 0.6 K/CMM (11/08/18 9:38 PM) 0.6 K/CMM (11/08/18 8:25 PM) Monocytes # [0.0-0.8 K/CMM] 0.2 K/CMM (11/08/18 9:38 PM) 0.2 K/CMM (11/08/18 8:25 PM) Eosinophils # [0.0-0.5 K/CMM] 0.1 K/CMM (11/08/18 9:38 PM) 0.1 K/CMM (11/08/18 8:25 PM) Basophils # [0.0-0.2 K/CMM] 8.8 K d/sc (11/08/18 8:48 PM) G-value Rapid [5.0-11.6 K d/sc] 1.2 minutes (11/08/18 8:48 PM) K-time Rapid [0.6-2.3 minutes] 64 mm (11/08/18 8:48 PM) Max Amplitude Rapid [52-71 mm] 0.6 minutes (11/08/18 8:48 PM) R-time Rapid [0.4-0.7 minutes] 74 degrees (11/08/18 8:48 PM) Angle Rapid [64-80 degrees] 60 mL/min/1.73m2 1 *NA* (11/08/18 9:38 PM) 58 mL/min/1.73m2 2 *NA* (11/08/18 8:25 PM) eGFR See Note (11/09/18 1:19 AM) UDS Note 1.1 (11/08/18 9:38 PM) A/G Ratio [0.7-1.6] 3.7 g/dL (11/08/18 9:38 PM) Albumin Lvl [3.5-5.0 g/dL] 99 unit/L (11/08/18 9:38 PM) Alk Phos [39-136 unit/L] 29 unit/L (11/08/18 9:38 PM) ALT [0-65 unit/L] Negative *NA* (11/09/18 1:19 AM) U Amph Scr [Negative] 11.4 mEq/L (11/08/18 9:38 PM) 10.3 mEq/L (11/08/18 8:25 PM) AGAP [10.0-20.0 mEq/L] 23 unit/L (11/08/18 9:38 PM) AST [0-37 unit/L] 9 (11/08/18 9:38 PM) B/C Ratio [6-25] Negative *NA* (11/09/18 1:19 AM) U Debbie Scr [Negative] 0.9 % (11/08/18 9:38 PM) 0.9 % (11/08/18 8:25 PM) Basophils [0.0-1.0 %] Negative *NA* (11/09/18 1:19 AM) U Benzodiaz Scr [Negative] 13 mg/dL (11/08/18 9:38 PM) 12 mg/dL (11/08/18 8:25 PM) BUN [7-22 mg/dL] 9.0 mg/dL (11/08/18 9:38 PM) 9.0 mg/dL (11/08/18 8:25 PM) Calcium Lvl [8.5-10.5 mg/dL] 7.08 (11/08/18 9:38 PM) CHD Risk [4.00-7.30] 177 mg/dL (11/08/18 9:38 PM) Chol [<=199 mg/dL] 181 unit/L (11/08/18 8:25 PM) Total CK [12-191 unit/L] 100 mEq/L (11/08/18 9:38 PM) 101 mEq/L (11/08/18 8:25 PM) Chloride Lvl [95-109 mEq/L] 28 mEq/L (11/08/18 9:38 PM) 28 mEq/L (11/08/18 8:25 PM) CO2 [24-32 mEq/L] Negative *NA* (11/09/18 1:19 AM) U Cocaine Scr [Negative] 1.39 mg/dL (11/08/18 9:38 PM) 1.43 mg/dL *HI* (11/08/18 8:25 PM) Creatinine Lvl [0.50-1.40 mg/dL] 2.6 % (11/08/18 9:38 PM) 2.7 % (11/08/18 8:25 PM) Eosinophils [0.0-4.0 %] 3.4 g/dL (11/08/18 9:38 PM) Globulin [2.7-4.2 g/dL] 144 mg/dL *HI* (11/08/18 9:38 PM) 154 mg/dL *HI* (11/08/18 8:25 PM) Glucose Lvl [70-99 mg/dL] 40.1 % *LOW* (11/08/18 9:38 PM) 42.5 % (11/08/18 8:25 PM) Hct [42.0-54.0 %] 25 mg/dL *LOW* (11/08/18 9:38 PM) HDL [>=61 mg/dL] 14.2 g/dL (11/08/18 9:38 PM) 14.9 g/dL (11/08/18 8:25 PM) Hgb [14.0-18.0 g/dL] 7.7 % *HI* (11/08/18 9:38 PM) Hgb A1C [<=5.6 %] 0.94 (11/08/18 8:25 PM) INR [0.85-1.17] 3.4 mEq/L *LOW* (11/08/18 9:38 PM) 3.3 mEq/L *LOW* (11/08/18 8:25 PM) Potassium Lvl [3.5-5.1 mEq/L] See Note mg/dL 3 *NA* (11/08/18 9:38 PM) LDL (Calculated) [<=99 mg/dL] 75 mg/dL (11/09/18 9:22 AM) LDL Direct [<=99 mg/dL] 32.4 % (11/08/18 9:38 PM) 32.0 % (11/08/18 8:25 PM) Lymphocytes [20.0-40.0 %] 31.9 pg *HI* (11/08/18 9:38 PM) 31.7 pg *HI* (11/08/18 8:25 PM) MCH [27.0-31.0 pg] 35.4 g/dL (11/08/18 9:38 PM) 35.1 g/dL (11/08/18 8:25 PM) MCHC [32.0-36.0 g/dL] 90.1 fL (11/08/18 9:38 PM) 90.2 fL (11/08/18 8:25 PM) MCV [80.0-94.0 fL] 9.2 % (11/08/18 9:38 PM) 9.8 % (11/08/18 8:25 PM) Monocytes [2.0-12.0 %] 7.4 fL (11/08/18 9:38 PM) 7.6 fL (11/08/18 8:25 PM) MPV [7.4-10.4 fL] 136 mEq/L (11/08/18 9:38 PM) 136 mEq/L (11/08/18 8:25 PM) Sodium Lvl [135-145 mEq/L] Positive *ABN* (11/09/18 1:19 AM) U Opiate Scr [Negative] Negative *NA* (11/09/18 1:19 AM) U Phencyclidine Scr [Negative] 225 K/CMM (11/08/18 9:38 PM) 226 K/CMM (11/08/18 8:25 PM) Platelet [133-450 K/CMM] 54.9 % (11/08/18 9:38 PM) 54.6 % (11/08/18 8:25 PM) Segs [45.0-75.0 %] 7.1 g/dL (11/08/18 9:38 PM) Total Protein [6.4-8.4 g/dL] 12.4 seconds (11/08/18 8:25 PM) PT [12.0-14.7 seconds] 30.9 seconds (11/08/18 8:25 PM) PTT [22.9-35.8 seconds] 4.45 M/CMM *LOW* (11/08/18 9:38 PM) 4.71 M/CMM (11/08/18 8:25 PM) RBC [4.70-6.10 M/CMM] 15.8 % *HI* (11/08/18 9:38 PM) 15.4 % *HI* (11/08/18 8:25 PM) RDW [11.5-14.5 %] 0.4 mg/dL (11/08/18 9:38 PM) Bili Total [0.2-1.3 mg/dL] Negative *NA* (11/09/18 1:19 AM) U Cannab Scr [Negative] 680 mg/dL *HI* (11/08/18 9:38 PM) Trig [<=149 mg/dL] <0.02 ng/mL (11/09/18 9:22 AM) <0.02 ng/mL (11/09/18 5:34 AM) <0.02 ng/mL (11/08/18 9:38 PM) Troponin-I [0.00-0.40 ng/mL] Negative *NA* (11/09/18 1:12 AM) UA Bili [Negative] Negative (11/09/18 1:12 AM) UA Blood [Negative] Light Yellow *NA* (11/09/18 1:12 AM) UA Color [Yellow] 500 mg/dL *ABN* (11/09/18 1:12 AM) UA Glucose [Negative mg/dL] Negative *NA* (11/09/18 1:12 AM) UA Ketones [Negative] Small *ABN* (11/09/18 1:12 AM) UA Leuk Est [Negative] Negative (11/09/18 1:12 AM) UA Nitrite [Negative] 6.0 (11/09/18 1:12 AM) UA pH [5.0-8.0] Negative (11/09/18 1:12 AM) UA Protein [Negative] 1 /HPF (11/09/18 1:12 AM) UA RBC [0-2 /HPF] 1.045 *HI* (11/09/18 1:12 AM) UA Spec Grav [<=1.030] None Seen (11/09/18 1:12 AM) UA Sq Epi [Few] Clear (11/09/18 1:12 AM) UA Turbidity [Clear] <1.0 mg/dL (11/09/18 1:12 AM) UA Urobilinogen [0.1-1.0 mg/dL] 6 /HPF *HI* (11/09/18 1:12 AM) UA WBC [0-5 /HPF] 6.3 K/CMM (11/08/18 9:38 PM) 6.5 K/CMM (11/08/18 8:25 PM) WBC [3.7-10.4 K/CMM] 105 seconds (11/08/18 8:48 PM) ACT (TEG) Rapid [86-118 seconds] 0.1 % (11/08/18 8:48 PM) Estimated % Lysis Rapid [0.0-7.5 %] 0.4 minutes *NA* (11/08/18 8:48 PM) Split [place] Rapid <2.0 (11/09/18 1:47 AM) Keppra Lvl See Note 4 *NA* (11/08/18 9:38 PM) VLDL 1Result Comment: The eGFR is [...] be mul tiplied by the estimated BMI. 3Result Comment: LDL cholesterol cannot be calculated due to very high triglycerides (>400 mg/dL). Recommend Direct LDL if clinically indicated. 4Result Comment: VLDL - Cholesterol level cannot be accurately calculated due to very high triglycerides (>400 mg/dL). Microbiology Reports TEST: Culture: Urine STATUS: Auth (Verified) BODY SITE: SOURCE: Urine, Clean Catch COLLECTED DATE/TIME: 11/09/18 12:38 PM FINAL REPORT <10,000 CFU/mL Skin Jacquie Immunizations Given and Recorded Vaccine Date Status [...] Started at ag e: 46.0; entered on: 11/09/18 1" I don't exercise , aboiut six mpnthsagoi was six hundred pounds i lost theweightbyhaving cancer" Assessment and Plan Extracted from: Title: Stroke Progress Note Author: Son Breen MD Date: 11/10/18 Stroke Progress Note Patient's Name: ARANZA WHITNEY Patient's Age: 48 Years Patient's Gender: Male Patient's : 1970 Patient Room: INBOUND Service: Emergency Medicine Admission Date: 11/08/2018 20:06 Attending: River Su MD Chief Complaint: left sided weakness Subjective: Patient reports continued weakness. States that he felt that he was being mistreated at his previous SNF and would like to be placed at another facility History of Present Illness: The patient is a 48 yo male patient with PMH of DM, HLD, CVA, afib on Xarelto, CAD and CO, congestive heart failure, type A aortic dissection status post repair with Dacron graft and resuspension of the aortic valve, Factor V Leiden mutation and IVC filter placed, history of DVT, abdominal aortic aneurysm, COPD, Hodgkin's lymphoma, history of nephrectomy, PTSD, anxiety, and morbid obesity who presented to the ED with left sided weakness. His last seen normal was around 7 pm when he suddenly had left sided weakness. He reports that he took his Xarelto last night. EMS brought him to the ED and reports that his BP was 150/90. Upon arrival to the ED he was talking and following commands and have left sided weakness and neglect with NIHSS of 11. 11/09: Patient's medication list obtaine d from his assisted living facility, Xarelto not on the list. Review of Systems: GEN - fever - chills - fatigue CV - chest pain - palpitations RES - shortness of breath - cough GI - nausea - vomiting - diarrhea MSK - pain - swelling + weakness Past Medical History: Myocardial infarction Pneumonia Cervical postlaminectomy syndrome Occipital neuralgia Nephrectomy Cholecystectomy Aortic aneurysm repair CVA (cerebral vascular accident) Bipolar 1 disorder Anxiety Depression Bipolar 1 disorder PTSD (post-traumatic stress disorder) Hodgkins lymphoma Past Surgical History: IVC - Insertion of inferior vena caval filter Nephrectomy Cholecystectomy Procedure on bone Aortic aneurysm repair Surgical procedure on cervical spine Back care Family Medical History: Father: Cancer - unknown origin; Emphysema.; Heart attack; Stroke Mother: Emphysema.; Heart attack; Hodgkin's disease Brother: Hodgkin's disease; Stroke Sister: Heart attack; Lymphedema Grandparent: CA - Lung cancer; Cancer - unknown origin; Heart attack Home Medications: Home Medications (18) Active AMIODarone 200 mg oral tablet 200 mg = 1 tab, PO, Daily aspirin 81 mg tablet, enteric coated 81 mg = 1 tab, PO, Daily atorvastatin 40 mg oral tablet 40 mg = 1 tab, PO, Bedtime Flexeril 10 mg oral tablet 10 mg = 1 tab, PRN, PO, TID furosemide 20 mg oral tablet 20 mg = 1 tab, PO, BID isosorbide mononitrate 30 mg oral tablet, extended release 30 mg = 1 tab, PO, QAM Keppra 500 mg oral tablet 500 mg = 1 tab, PO, BID KlonoPIN 0.5 mg oral tablet 0.5 mg = 1 tab, PRN, PO, BID Lyrica 100 mg oral capsule 100 mg = 1 cap, PO, BID metFORMIN 1,000 mg, PO, BID metoprolol tartrate 25 mg, PO, BID mirtazapine 15 mg oral tablet 15 mg = 1 tab, PO, Bedtime Nitrostat 0.4 mg sublingual tablet 0.4 mg = 1 tab, PRN, SL, Q5Min Plavix 75 mg oral tablet 75 mg = 1 tab, PO, Daily Protonix 20 mg oral enteric coated tablet 20 mg = 1 tab, PO, Daily Ranexa 500 mg oral tablet, extended release 500 mg = 1 tab, PO, BID trazodone 150 mg oral tablet 150 mg = 1 tab, PO, Bedtime Xarelto 20 mg oral tablet 20 mg = 1 tab, PO, QPM Allergies: Allergies (8) ActiveReaction NorcoNone documented traMADolNone documented ToradolNone documented NeurontinNone documented Paper TapeNone documented ampicillinNone documented Zofranhives ReglanNone documented Physical Exam: Vitals: VitalsTmp(F)[id number] 11/10 03:5997.5 11/10 00:0997.7 11/09 21:00----[id number]--- 11/09 20:00----[id number]--- 11/09 19:1298.3 24 Hr Tmax: 98.3F (36.83c) at 11/09 19:1 2Vital Signs are the last 5 in the past 48 hours. General: awake, alert, morbidly obese, in no acute distress Head: normocephalic and atraumatic Skin: warm, dry, intact, no rashes Neurologic: HEENT: - Normocephalic and atraumatic, no oropharyngeal trauma or lacerations ABDOMEN - Soft, nontender, nondistended EXTREMITIES: No edema, cyanosis or clubbing NEURO: Mental Status: Alert and Oriented x3 Follow commands briskly Language: speech is mildly dysarthric and slow. Naming difficulties Cranial Nerves: PERRL2 mm/brisk . Extraoccular movements intact , no facial asymmetry , hearing intact, tongue midline Visual Laguerre: Full Motor: Some antigravity in LUE, effort dependent. LLE antigravity. Right UE and LE normal Tone: is normal and bulk is normal Sensation- Intact to light touch bilaterally Coordination: FTN intact bilaterally, no ataxia in BLE. Gait- deferred Pre-Morbid MRS 2 Imaging Studies and Diagnostic Tests: Chest 1view DX 11/08/2018 21:09 Impression: Low lung volumes with scattered bronchovascular crowding. Prior median sternotomy and cardiomegaly. Recommend repeat chest radiograph with improved inspiratory volume. UT SECTION: ER Brain/Neck Stroke perfusion CTA 11/08/2018 21:05 Impression: 1. Absence of the left PICA, acute versu s chronic. Otherwise normal CTA of the head 2. Atherosclerotic changes in the caroti d and vertebral arteries without stenosis. 3. Normal CT perfusion. (All qualitative and quantitative assess ments of carotid bifurcation and proximal internal carotid artery stenosis are made referencing the distal internal carotid artery ET criteria].) Brain Stroke wo contrast CT 11/08/2018 20:40 Impression: No acute abnormality. Aspect score 10. Cerebellar atrophy, suggesting chronic anticonvulsant therapy. Phillip's paralysis should be considered in the differential diagnosis. TTE normal Assessment: The patient is a 48 yo male patient with PMH of DM, HLD, CVA, afib on Xarelto, CAD and CO, congestive heart failure, type A aortic dissection status post repair with Dacron graft and resuspension of the aortic valve, Factor V Leiden mutation and IVC filter placed, history of DVT, abdominal aortic aneurysm, COPD, Hodgkin's lymphoma, history of nephrectomy, PTSD, anxiety, and morbid obesity who presented to the ED with left sided weakness. His last seen normal was around 7 pm when he suddenly had left sided weakness. His NIHSS is 11 but he is not a tPA candidate since he took his Xarelto last night. Also not IA candidate due to no LVO on CTA, will admit for stroke work up. Plan: Acute Ischemic Stroke Acuity: Acute Current suspected etiology: possible cardioembolic, suspicion for conversion disorder due to his history of conversion in the past. He did not like his previous assisted living facility so there is a potential element of secondary gain as well. Continue evaluation: - Admit to: Stroke unit - [facility]. 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 Dysarthria Dysphagia following cerebral infarction - NPO until cleared by speech - ST - Advance diet as tolerated Hemiplegia and hemiparesis following cerebral infarction affecting left non- dominant side - PT/OT RESP - Stable on room air CV Essential (primary) hypertension - Titrate oral agents Chronic systolic (congestive) heart failure - BB - Lasix Chronic atrial fibrillation - Rate control Hyperlipidemia, unspecified - LDL: direct = 75 - Triglycerides = >600 - Statin for goal LDL < 70 Renal Acute kidney failure - Creat: 1.39, GFR: 60 - Baseline creat: 0.77, GFR: 107 - Gentle hydration - Avoid nephrotoxic agents Fluid/Electrolyte Disorders Hypokalemia - Replete as needed - Repeat labs - Trend GI/ - NPO until cleared by speech ENDO Type 2 diabetes mellitus with hyperglycemia - Hgb A1c: pending - SSI - Goal HgbA1c < 7 ID Possible aspiration pneumonia - Afebrile and no leukocytosis - CXR: no consolidation - NPO - Monitor Possible UTI - U/A: pending Prophylaxis DVT: SCD/TEDs, heparin 7500 units sq Q8h GI: not indicated Bowel: docusate senna Diet: NPO until cleared by speech Code Status: Full code Dispo: pending STROKE STAFF I have seen and examined the patient. Furthermore, I have discussed the case with and reviewed the resident's note and agree with the history, exam, assessment and plan. See note below for additions and/or exceptions and my findings. I have personally viewed the patient's radiographic studies and laboratory tests. Exam consistent with significant functional overlay. Continue home Xeralto for ho DVT an afib Extracted from: Title: Stroke History and Physical Author: Jazmin Anne MD Date: 11/08/18 Stroke History and Physical Patient's Name: ARANZA WHITNEY Patient's Age: 48 Years Patient's Gender: Male Patient's : 1970 Patient Room: INBOUND Service: Emergency Medicine Admission Date: 11/08/2018 20:06 Attending: River Su MD Chief Complaint: left sided weakness History of Present Illness: The patient is a 48 yo male patient with PMH of DM, HLD, CVA, afib on Xarelto, CAD and CO, congestive heart failure, type A aortic dissection status post repair with Dacron graft and resuspension of the aortic valve, Factor V Leiden mutation and IVC filter placed, history of DVT, abdominal aortic aneurysm, COPD, Hodgkin's lymphoma, history of nephrectomy, PTSD, anxiety, and morbid obesity who presented to the ED with left sided weakness. His last seen normal was around 7 pm when he suddenly had left sided weakness. He reports that he took his Xarelto last night. EMS brought him to the ED and reports that his BP was 150/90. Upon arrival to the ED he was talking and following commands and have left sided weakness and neglect with NIHSS of 11. Review of Systems: GEN: no fever, chills, weight loss, fatigue EYES: no blurred vision, double vision CARDIO: +chest pain, palpitations PULM: no shortness of breath, cough GI: no nausea, vomiting, diarrhea, no abdominal pain : no frequency, dysuria, hematuria SKIN: no rash or lesion MSK: no pain, swelling, redness, heat in muscles, no limited ROM, weakness, or atrophy, no cramps LYMPH/IMMUNO: No lymph node enlargement/tenderness, no heat/cold intolerance NEURO: see HPI Past Medical History: Myocardial infarction Pneumonia Cervical postlaminectomy syndrome Occipital neuralgia Nephrectomy Cholecystectomy Aortic aneurysm repair CVA (cerebral vascular accident) Bipolar 1 disorder Anxiety Depression Bipolar 1 disorder PTSD (post-traumatic stress disorder) Hodgkins lymphoma Past Surgical History: IVC - Insertion of inferior vena caval filter Nephrectomy Cholecystectomy Procedure on bone Aortic aneurysm repair Surgical procedure on cervical spine Back care Family Medical History: Father: Cancer - unknown origin; Emphysema.; Heart attack; Stroke Mother: Emphysema.; Heart attack; Hodgkin's disease Brother: Hodgkin's disease; Stroke Sister: Heart attack; Lymphedema Grandparent: [place] - Lung cancer; Cancer - unknown origin; Heart attack Social History: Employment/School Details: Status: Unemployed, disabled. Alcohol Details: Never Exercise Comment(s): " I don't exercise , about six months ago I was six hundred pounds i lost the weight by having cancer" Tobacco Details: Use: Current every day smoker. Type: Cigars. Started age 46.0 Years. Previous treatment: None. Ready to change: Yes. Household tobacco concerns: No. Tobacco smoke exposure: None. Did the Patient Smoke Cigarettes Anytime During the Last 365 Days? Yes. Cessation Counseling Provided? Yes. Substance Abuse Details: Use: None. Details: Use: None. Home Medications: Home Medications (18) Active AMIODarone 200 mg oral tablet 200 mg = 1 tab, PO, Daily aspirin 81 mg tablet, enteric coated 81 mg = 1 tab, PO, Daily atorvastatin 40 mg oral tablet 40 mg = 1 tab, PO, Bedtime Flexeril 10 mg oral tablet 10 mg = 1 tab, PRN, PO, TID furosemide 20 mg oral tablet 20 mg = 1 tab, PO, BID isosorbide mononitrate 30 mg oral tablet, extended release 30 mg = 1 tab, PO, QAM Keppra 500 mg oral tablet 500 mg = 1 tab, PO, BID KlonoPIN 0.5 mg oral tablet 0.5 mg = 1 tab, PRN, PO, BID Lyrica 100 mg oral capsule 100 mg = 1 cap, PO, BID metFORMIN 1,000 mg, PO, BID metoprolol tartrate 25 mg, PO, BID mirtazapine 15 mg oral tablet 15 mg = 1 tab, PO, Bedtime Nitrostat 0.4 mg sublingual tablet 0.4 mg = 1 tab, PRN, SL, Q5Min Plavix 75 mg oral tablet 75 mg = 1 tab, PO, Daily Protonix 20 mg oral enteric coated tablet 20 mg = 1 tab, PO, Daily Ranexa 500 mg oral tablet, extended release 500 mg = 1 tab, PO, BID trazodone 150 mg oral tablet 150 mg = 1 tab, PO, Bedtime Xarelto 20 mg oral tablet 20 mg = 1 tab, PO, QPM Allergies: Allergies (8) ActiveReaction NorcoNone documented traMADolNone documented ToradolNone documented NeurontinNone documented Paper TapeNone documented ampicillinNone documented Zofranhives ReglanNone documented Physical Exam: Vitals: VitalsTmp(F)[id number] 11/08 21:30----[id number]--- 11/08 21:00----[id number]--- 11/08 20:45----[id number]--- 11/08 20:30----[id number]--- 11/08 20:18----[id number]--- 24 Hr Tmax: No Data AvailableVital Signs are the last 5 in the past 48 hours. General: awake, alert, morbidly obese, in no acute distress Head: normocephalic and atraumatic Neck: supple, non-tender, no lymphadenopathy, no thyromegaly Eye: normal conjunctiva, aligned Respiratory: lungs are clear to auscultation, respirations are non-labored, breath sounds are equal, no crackles, no wheezes Cardiovascular: S1 S2, normal rate, regular rhythm, no murmurs, no rubs, no gallops, good pulses equal in all extremities Gastrointestinal: soft, Non-tender, non-distended, normoactive bowel sounds, no hepatosplenomegaly, no masses, no hernia Genitourinary: no costovertebral angle tenderness Musculoskeletal: no edema, full range of motion including neck and spine, no scoliosis Skin: warm, dry, intact, no rashes Neurologic: Mental Status: awake, alert and oriented to place and person (AAOx2), follows simple commands Language: speech is mildly aphasic, answer in one word and does not hold a full conversation Cranial Nerves: - I: the olfactory nerve not tested - II: visual acuity normal, visual field s full - III: pupils are equal, round and react devonte to light and accommodation (PERRLA) 3 mm, brisk - III, IV, : extraocular movements are intact (EOMI) - V: facial sensation and masseter stren gth are intact. - VII: no facial asymmetry - VIII: hearing is intact - IX, X: uvula and soft palate midline, gag is normal - XI: normal sternocleidomastoid and tra pezius muscle strength - XII: tongue is midline, no evidence of tongue atrophy or fibrillations Motor: LUE: no movement, LLE: some AG, RUE: no drift, RLE: no drift Tone: is normal and bulk is normal Sensation: decreased to light touch on the left, left sided neglect Coordination: no ataxia, FTN intact on the right Gait: deferred Pre-Morbid MRS Unable [place] [facility] [place] NIH Stroke Scale (NIHSS) 1a. Level of Consciousness: 0-alert 1-dr goran 2-stupor 3-coma 2 1b. LOC Questions (month and age): 0-bot h 1-one 2-neither 1c. LOC Commands (open/close eyes, compliance technician/ release non-paretic hand): 0-both 1-one 2-neither 2. Best Gaze: 0-nl 1-partial 2-forced ga ze 3. Visual Laguerre: 0-No visual loss. 1-Pa rtial hemianopia 2-Complete 3-Bilateral 4. Facial Palsy: 0-none 1-minor 2-partia l 3-complete 4 5a. Motor - L arm: 0-No drift 1-Drift 2- Some antigravity 3-No antigravity 4-No movement 5b. Motor - R arm: 0-No drift 1-Drift 2- Some antigravity 3-No antigravity 4-No movement 2 6a. Motor - L Le-No drift 1-Drift 2- Some antigravity 3-No antigravity 4-No movement 6b. Motor - R le-No drift 1-Drift 2- Some antigravity 3-No antigravity 4-No movement 7. Limb Ataxia: 0 absent 1 - 1limb 2 - 2 limbs 1 8. Sensory: 0-nl 1-partial loss 2-dense loss 1 9. Best Language: 0-nl 1-mild/mod 2-kecia re 3-mute 10. Dysarthria: 0-nl 1-mild/mod 2-severe x-untestable 1 11. Extinction and Inattention (formerly Neglect): 0-none 1-partial 2-complete 11 Total Labs: Hct: 40.1 % Low (11/08/18:38:00) Hgb: 14.2 g/dL (11/08/18:38:00) MCH: 31.9 pg High (11/08/18:38:00) MCHC: 35.4 g/dL (11/08/18:38:00) MCV: 90.1 fL (11/08/18:38:00) MPV: 7.4 fL (11/08/18:38:00) Platelet: 225 K/CMM (11/08/18:38:00) RBC: 4.45 M/CMM Low (11/08/18:38:00) RDW: 15.8 % High (11/08/18:38:00) WBC: 6.3 K/CMM (11/08/18:38:00) AGAP: 11.4 mEq/L (11/08/18:38:00) Chloride Lvl: 100 mEq/L (11/08/18:38:00) CO2: 28 mEq/L (11/08/18:38:00) Potassium Lvl: 3.4 mEq/L Low (11/08/18:38:00) Sodium Lvl: 136 mEq/L (11/08/18:38:00) A/G Ratio: 1.1 (11/08/18:38:00) Albumin Lvl: 3.7 g/dL (09/21/19 21:38:00) Alk Phos: 99 unit/L (11/08/18 21:38:00) ALT: 29 unit/L (11/08/18:38:00) AST: 23 unit/L (11/08/18:38:00) B/C Ratio: 9 (11/08/18 21:38:00) Bili Total: 0.4 mg/dL (11/08/18 21:38:00) BUN: 13 mg/dL (11/08/18:38:00) Calcium Lvl: 9 mg/dL (11/08/18:38:00) Creatinine Lvl: 1.39 mg/dL (11/08/18:38:00) eGFR: 60 mL/min/1.73m2 (11/08/18:38:00) Globulin: 3.4 g/dL (11/08/18:38:00) Glucose Lvl: 144 mg/dL High (11/08/18:38:00) Total Protein: 7.1 g/dL (11/08/18:38:00) Medications: Scheduled Meds (4): 11/08/18 aspirin (aspirin 325 mg tablet, enteric coated) 325 mg PO Q24H 11/09/18 atorvastatin 80 mg PO Bedtime 11/09/18 heparin (heparin 5000 units/mL injectable solution) 7,500 unit SUB-Q Q8H 11/09/18 sodium chloride (Saline Flush 0 .9%) 10 ml IVP Q12H Continuous Infusions (1): 11/08/18 Sodium Chloride 0.9% IV 1,000 m L 1,000 mL 75 ml/hr Imaging Studies and Diagnostic Tests: Chest 1view DX 11/08/2018 21:09 Impression: Low lung volumes with scattered bronchovascular crowding. Prior median sternotomy and cardiomegaly. Recommend repeat chest radiograph with improved inspiratory volume. UT SECTION: ER Brain/Neck Stroke perfusion CTA 11/08/2018 21:05 Impression: 1. Absence of the left PICA, acute versu s chronic. Otherwise normal CTA of the head 2. Atherosclerotic changes in the caroti d and vertebral arteries without stenosis. 3. Normal CT perfusion. (All qualitative and quantitative assess ments of carotid bifurcation and proximal internal carotid artery stenosis are made referencing the distal internal carotid artery ET criteria].) Brain Stroke wo contrast CT 11/08/2018 20:40 Impression: No acute abnormality. Aspect score 10. Cerebellar atrophy, suggesting chronic anticonvulsant therapy. Phillip's paralysis should be considered in the differential diagnosis. ECG: Pending Assessment: The patient is a 48 yo male patient with PMH of DM, HLD, CVA, afib on Xarelto, CAD and CO, congestive heart failure, type A aortic dissection status post repair with Dacron graft and resuspension of the aortic valve, Factor V Leiden mutation and IVC filter placed, history of DVT, abdominal aortic aneurysm, COPD, Hodgkin's lymphoma, history of nephrectomy, PTSD, anxiety, and morbid obesity who presented to the ED with left sided weakness. His last seen normal was around 7 pm when he suddenly had left sided weakness. His NIHSS is 11 but he is not a tPA candidate since he took his Xarelto last night. Also not IA candidate due to no LVO on CTA, will admit for stroke work up. He can not confirm his medications specifically if he takes amiodarone or not. Will defer confirmation to the day team. 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 Dysarthria Dysphagia following cerebral infarction - NPO until cleared by speech - ST - Advance diet as tolerated Hemiplegia and hemiparesis following cerebral infarction affecting left non- dominant side - PT/OT RESP - Stable on room air CV Essential (primary) hypertension - Permissive BP control, goal SBP < 220 - Titrate oral agents Chronic systolic (congestive) heart failure - TTE - Hold BB due to permissive BP - Cards consult Chronic atrial fibrillation - Rate control - Hold BB due to permissive BP Hyperlipidemia, unspecified - LDL: pending - Statin for goal LDL < 70 Renal Acute kidney failure - Creat: 1.39, GFR: 60 - Baseline creat: 0.77, GFR: 107 - Gentle hydration - Avoid nephrotoxic agents Fluid/Electrolyte Disorders Hypokalemia - Replete as needed - Repeat labs - Trend GI/ - NPO until cleared by speech ENDO Type 2 diabetes mellitus with hyperglycemia - Hgb A1c: pending - SSI - Goal HgbA1c < 7 ID Possible aspiration pneumonia - Afebrile and no leukocytosis - CXR: no consolidation - NPO - Monitor Possible UTI - U/A: pending Prophylaxis DVT: SCD/TEDs, heparin 7500 units sq Q8h GI: not indicated Bowel: docusate senna Diet: NPO until cleared by speech Code Status: Full code Dispo: pending THE FOLLOWING WERE PRESENT ON ADMISSION: 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 On Xarelto Delays In This Process: (none) The patient has been seen and discussed with the stroke fellow, Dr. Banda. Patient and family members were updated on the above and all questions answered. Jazmin Anne MD MPH Resident Physician, PGY2 Department of Neurology [employer] POST ROUNDS ADDENDUM MRI cancelled, patient does not meet size requirements Pending repeat CT in AM rEEG for history of seizures. Obtained medication list from assisted living facility. Patient was taken off Xarelto for unclear reason. Restarted. He has not been taking ASA and Plavix. STROKE STAFF I have seen and examined the patient. Furthermore, I have discussed the case with and reviewed the resident's note and agree with the history, exam, assessment and plan. See note below for additions and/or exceptions and my findings. I have personally viewed the patient's radiographic studies and laboratory tests. Exam consistent with significant functional overlay. Continue home Xeralto for ho DVT an afib
--- OUTSIDE RECORDS SUMMARY | 2019-07-27 19:20 | XMS REPORT | Continuity of Care Document ---
Author Author [facility] t Organization [facility] Address [address] [place] [address] Phone Unavailable Care Team Providers Care Adoption Worker Name Role Phone NONSTAFF PCP Unavailable Nilson Bunn Attphys Josue Hester Attphys Joie Philip Attphys Dai Quinones MD Attphys Dai QUINONES Attphys Unavailable Pavan Romero Attphys Samir Skaggs MD Attphys Radu LOGAN, Irvin Attphys Lara LOGAN, Mann Attphys Ladonna LOGAN, Momo Attphys SAMIR SKAGGS Attphys Unavailable Maggie LOGAN, Damian Attphys Merchant LOGAN, Erick Attphys Dejuan LOGAN, Cary iWnters Attphys [phone] Jimmy LOGAN, Kelly Attphys Liset LOGAN, Lupe Attphys CARY ZAIDI Attphys Unavailable Ellis LOGAN, Unique Field Attphys [phone] Rafael LOGAN, Caroline Attphys Joe LOGAN, Ekaterina Neal Attphys [phone] UNIQUE CORRAL Attphys Unavailable Norma Staplescia Attphys KOTA DILL Attphys Unavailable Kassandra HARMAN Attphys Unavailable Mattie ALEXIS Attphys Unavailable Toby Solano DNP, Cindy Menchaca Attphys [phone] Sony CASTILLO, Breezy Mccabe Attphys [phone] [place] LOGAN, Cleve Beyer Attphys [phone] Damien LOGAN, Logan Attphys Varsha Espinal MD, Ana Attphys Doctor Unassigned, Name No Attphys Unavailable Nilson CURTIS Attphys Unavailable MATTY, S AMBADÁN Attphys Unavailable DEXTER DILL Attphys Unavailable Jean Carlos CLOUDOLPH Attphys Unavailable Jean Carlos IVERSON Attphys Unavailable RASSOLI, AMIR Attphys Unavailable Divinsky, Ianir Attphys Unavailable Kacie, Josue Sorensen Jimena Admphys Presley Dawson Admphys IRVIN MINOR Admphys Unavailable DAMIAN ZAMORA Admphys Unavailable LUPE BELLAMY Admphys Unavailable JOE, EKATERINA VAL Admphys Unavailable Norma Staples Qing Admphys Mattie ALEXIS Admphys Unavailable Sony SORENSON, Breezy Mccabe Admphys Varsha Espinal MD, Ana Admphys DEXTER DILL Admphys Unavailable RASSOLI, AMIR Admphys Unavailable Divinsky, Ianir Admphys Unavailable Payers Payer Name Policy Type Policy Number Effective Date Expiration Date S luciano MEDICAID - [facility]xxxxxxxxxMe dicaid Contracted xxxxxxxxx [facility] Star Com [id number] 2017 00:00 :00 [facility] MED[place]IDUNITEDHC COMM STAR+ [id number] [id number] 2015 00:00:00 Eliel Yazidi Problems Condition Name Condition Details Condition Category Status Onset Date Resolution Date Last Treatment Date Treating Clinician Comments Source SOB SOB Active 07/12/2019 [facility] Active 2019-07-12 00:00:00 2019-07-12 01:15:00 [facility] Artur STROKE STRO KE Active 07/10/2019 [facility] Diagnosis Active 2019-07-10 00:00:00 2019-07-10 16:06:00 [facility] CVA Active 07/10/2019 [facility] Diagnosis Active 2019-07-10 00:00:00 2019-07-20 [facility] ACUTE CHEST PAIN ACUT E CHEST PAIN Active 03/12/2019 [facility] Diagnosis Active 2019-03-12 00:00:00 2019-03-13 15:18:00 [facility] CHEST PAIN CHES T PAIN Active 03/12/2019 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 pectoris Disease Active 2019-01-03 00:00:00 [facility] Other chest pain Other chest pain Disease Active 2018-12-26 00:00:00 [facility] Chest pain with high risk of acute coronary syndrome C hest pain with high risk of acute coronary syndrome Disease Active 2018-12-25 00:00:00 [facility] A-fib A-fib Disease Active 2018-12-07 00:00:00 [facility] Essential hypertension Essential hypertension Disease Active 2018-12-07 00:00:00 [facility] Acute chest pain Acute chest pain Disease Active 2018-11-30 00:00:00 [facility] ACUTE ISCHEMIC STROKE ACUT E ISCHEMIC STROKE Active 11/08/2018 [facility] Diagnosis Active 2018-11-08 00:00:00 2018-11-28 21:54:00 [facility] Tachycardia Tach ycardia Active 09/05/2018 09/29/2018 [facility] Health Condition Active 2018-09-05 00:00:00 2018-09-29 23:05:02 [facility] Chronic obstructive pulmonary disease with acute exace rbation Chronic obstructive pulmonary disease with acute exacerbation Active 07/15/2018 09/29/2018 [facility] Health Condition Active 2018-07-15 00:00:00 2018-09-29 23:05:02 [facility] Artur Atrial fibrillation Atri al fibrillation Active 07/15/2018 09/29/2018 [facility] Health Condition Active 2018-07-15 00:00:00 2018-09-29 23:05:02 [facility] Hypokalemia Hypo kalemia Active 07/15/2018 09/29/2018 [facility] Health Condition Active 2018-07-15 00:00:00 2018-09-29 23:05:02 [facility] Hypocalcemia Hypo calcemia Active 07/15/2018 09/29/2018 [facility] Health Condition Active 2018-07-15 00:00:00 2018-09-29 23:05:02 [facility] Hypomagnesemia Hypo magnesemia Active 07/15/2018 09/29/2018 [facility] Health Condition Active 2018-07-15 00:00:00 2018-09-29 23:05:0 2 [facility] Artur Chest pain Ches t pain Active 07/14/2018 09/29/2018 [facility] Health Condition Active 2018-07-14 00:00:00 2018-09-29 23:05:02 [facility] Hypothyroid Hypo thyroid Active 07/14/2018 09/29/2018 [facility] Health Condition Active 2018-07-14 00:00:00 2018-09-29 23:05:02 Robert Siddiqui Emphysema lung Emph ysema lung Active 07/14/2018 09/29/2018 [facility] Health Condition Active 2018-07-14 00:00:00 2018-09-29 23:05:0 2 Robert Siddiqui DM (diabetes mellitus) DM ( diabetes mellitus) Active 07/14/2018 09/29/2018 [facility] Health Condition Active 2018-07-14 00:00:00 2018-09-29 23:05:02 Robert Siddiqui Chest pain due to coronary artery disease Chest pain due to coronary artery disease Active 07/07/2018 09/29/2018 [facility] Health Condition Active 2018-07-07 00:00:00 2018-09-29 23:05:02 Robert Siddiqui Chest pain at rest Ches t pain at rest Active 06/29/2018 09/29/2018 [facility] Health Condition Active 2018-06-29 00:00:00 2018-09 23:05:02 Robert Siddiqui Morbid obesity with body mass index of 50 or higher Morbid obesity with body mass index of 50 or higher Active 06/20/2018 09/29/2018 [facility] Health Condition Active 2018-06-20 00:00:00 2018-09-29 23:05:0 2 Robert Siddiqui Chest pain, rule out acute myocardial infarction Chest pain, rule out acute myocardial infarction Disease Active 2018-05-03 00:00:00 Eliel Garcia Physical deconditioning Physical deconditioning Disease Active 2018-04-25 00:00:00 [facility] Impaired mobility and ADLs Impaired mobility and ADLs Disease Active 2018-04-25 00:00:00 [facility] Impaired gait and mobility Impaired gait and mobility Disease Active 2018-04-25 00:00:00 [facility] At risk for falls At risk for falls Disease Active 2018-04-25 00:00:00 [facility] Bilateral swelling of feet Bilateral swelling of feet Disease Active 2016-01-22 00:00:00 [facility] Chest pain Chest pain Disease Active 2016-01-21 00:00:00 [facility] Precordial pain Precordial pain Disease Active 2016-01-21 00:00:00 [facility] Backache (finding) Back ache (finding) Active 10/03/2010 Problem 07/14/2019 [facility] Problem Active 2010-10-03 00:00:00 2019-07-14 21:06:28 [facility] Psychiatric problem Psychiatric problem Disease Active 2010-07-04 00:00 :00 [facility] Pulmonary embolus Pulmonary embolus Disease Active 2010-07-03 00:00:00 [facility] Syncope Syncope Problem Active [facility] Transient ischemic attack TIA (transient ischemic attack) Problem Active [facility] Hypertension Hypertension Problem Active [facility] Obesity Obesity Problem Active [facility] Anxiety (finding) Anxi ety (finding) Resolved Problem 07/14/2019 [facility] Problem Resolved 2019-07-14 21:06:28 Robert Siddiqui Aortic aneurysm repair (procedure) Aortic aneurysm repair (procedure) Resolved Problem 07/14/2019 [facility] Problem Resolved 2019-07-14 21:06:28 [facility] mariana Siddiqui Bipolar I disorder (disorder) Bipolar I disorder (disorder) Resolved Problem 07/14/2019 [facility] Problem Resolved 2019-07-14 21:06:28 [facility] Artur Cervical post-laminectomy syndrome (disorder) Cervical post-laminectomy syndrome (disorder) Resolved Problem 07/14/2019 [facility] Problem Resolved 2019-07-14 21:06:28 Robert Siddiqui Cholecystectomy (procedure) Ch olecystectomy (procedure) Resolved Problem 07/14/2019 [facility] Problem Resolved 2019-07-14 21:06:28 Dru Siddiqui Cerebrovascular accident (disorder) Cerebrovascular accident (disorder) Resolved Problem 07/14/2019 [facility] Problem Resolved 2019-07-14 21:06:28 Alan Siddiqui Hodgkin's disease (disorder) H odgkin's disease (disorder) Resolved Problem 07/14/2019 [facility] Problem Resolved 2019-07-14 21:06:28 [facility] Depressive disorder (disorder) Depressive disorder (disorder) Resolved Problem 07/14/2019 [facility] Problem Resolved 2019-07-14 21:06:28 [facility] Myocardial infarction (disorder) Myocardial infarction (disorder) Resolved Problem 07/14/2019 [facility] Problem Resolved 2019-07-14 21:06:28 [facility] Total nephrectomy (procedure) Total nephrectomy (procedure) Resolved Problem 07/14/[address] [facility] Problem Resolved 2019-07-14 21:06:28 [facility] orimary Hdezann Cervico-occipital neuralgia (finding) Cervico-occipital neuralgia (finding) Resolved Problem 07/14/2019 [facility] Problem Resolved 2019-07-14 21:06:28 [facility] mariana Siddiqui Pneumonia (disorder) Pneu monia (disorder) Resolved Problem 07/14/2019 [facility] Problem Resolved 2019-07-14 21:06:28 [facility] Posttraumatic stress disorder (disorder) Posttraumatic stress disorder (disorder) Resolved Problem 07/14/2019 [facility] Problem Resolved 2019-07-14 21:06:28 Dc fransisca Siddiqui Congestive heart failure (disorder) Congestive heart failure (disorder) Active Problem 07/14/2019 [facility] Problem Active 2019-07-14 21:06:28 [facility] Chronic obstructive lung disease (disorder) Chronic obstructive lung disease (disorder) Active Problem 07/14/2019 [facility] Problem Active 2019-07-14 21:06:28 [facility] Deep venous thrombosis (disorder) Deep venous thrombosis (disorder) Active Problem 07/14/2019 [facility] Problem Active 2019-07-14 21:06:28 Alanguillermo jessicakassandra Artur Heterozygous Factor V Leiden mutation (disorder) Heterozygous Factor V Leiden mutation (disorder) Active Problem 07/14/2019 [facility] Problem Active 2019-07-14 21:06:28 [facility] History of - Deep Vein Thrombosis (context-dependent c ategory) History of - Deep Vein Thrombosis (context-dependent category) Active Problem 07/14/2019 [facility] Problem Active 2019-07-14 21:06:28 [facility] History of - CVA (context-dependent category) History of - CVA (context-dependent category) Active Problem 07/14/2019 [facility] Problem Active 2019-07-14 21:06:28 [facility] History of repair of ascending aorta (situation) History of repair of ascending aorta (situation) Active Problem 07/14/2019 [facility] Problem Active 2019-07-14 21:06:2 8 Robert Siddiqui Hyperlipidemia (disorder) Hype rlipidemia (disorder) Active Problem 07/14/2019 [facility] Problem Active 2019-07-14 21:06:28 Robert Siddiqui Smokes tobacco daily (finding) Smokes tobacco daily (finding) Active Problem 07/14/2019 [facility] Problem Active 2019-07-14 21:06:28 Memguillermo Siddiqui Chest pain, unspecified type C hest pain, unspecified type Active 09/29/2018 [facility] Health Diagnosis Active 2018-09-29 2 3:05:02 Robert Siddiqui Angina at rest Flora na at rest Active 09/20/2018 [facility] Diagnosis Active 2018-09-20 20:03:46 M paulina Siddiqui Acute on chronic congestive heart failure, unspecified heart failure type Acute on chronic congestive heart failure, unspecified heart failure type Active 09/29/2018 [facility] Diagnosis Active 2018-09-29 23:05:02 Robert Siddiqui CEREBRAL INFARCTION, UNSPECIFIED CEREBRAL INFARCTION, UNSPECIFIED Active [facility] Diagnosis Active 2018-11-28 21:54:00 Robert Siddiqui CHEST PAIN, UNSPECIFIED CHES T PAIN, UNSPECIFIED Active [facility] Diagnosis Active 2019-03-13 15:18:00 Robert Siddiqui Nausea with vomiting, unspecified Nausea with vomiting, unspecified 07/12/2019 07/14/2019 [facility] Problem 20 08-07-23 17:00:00 2019-07-14 21:06:28 2019-07-14 21:06:28 Robert Siddiqui Fever, unspecified Feve r, unspecified 07/12/2019 07/14/2019 [facility] Problem 2019-07-12 17:00:00 2019-07-14 21:06:28 2019-07-14 21:06:28 Robert Siddiqui Other chest pain Othe r chest pain 01/11/2019 01/13/2019 [facility] Problem 2019-01-11 18:00:00 2018-12 22:38:37 2019-01-13 22:38:37 Robert Siddiqui Allergies, Adverse Reactions, Alerts Allergy Name Allergy Type Status Severity Reaction(s) Onset Date Inacti ve Date Treating Clinician Comments Source Hydrocodone-Acetaminophen Propensity to adverse reactions Active 2018-12-07 00:00:00 [facility] Tape, Occlusive Adhesive Propensity to adverse reactions Active 2018-12-07 00:00:00 PAPER TAPE [facility] Ketorolac Drug Allergy Active Hives 2018-11-30 00:00:00 [facility] Tramadol Propensity to adverse reactions Active 2018-11 00:00:00 "sick" [facility] Ketorolac Tromethamine Ketorolac Tromethamine Active H daniel 2018-09-19 00:00:00 [facility] Artur morphine DA Active U 2018-08-05 00:00:00 [facility] ampicillin DA Active SV 2018-08-04 00:00:00 [facility] tramadol DA Active U 2018-08-04 00:00:00 [facility] gabapentin DA Active SV 2018-08-04 00:00:00 [facility] metoclopramide DA Active U 2018-08-04 00:00:00 [facility] ondansetron DA Active [place] 2018-08-04 00:00:00 [facility] ketorolac DA Active [place] 2018-08-04 00:00:00 [facility] Tramadol Tramadol Active High Unknown - See comments 2018-07-07 00:00:0 0 [facility] Ampicillin Ampicillin Active Unknown - See comments 2018-06-19 00: 00:00 [facility] Gabapentin Gabapentin Active Unknown - See comments 2018-06-19 00: 00:00 [facility] Metoclopramide Hcl Metoclopramide Hcl Active Unknown - See comments 2018-06-19 00:00:00 [facility] Ondansetron Hcl (Pf) Ondansetron Hcl (Pf) Active Itching 2018-06-19 00:00:00 [facility] morphine DA Active [place] 2018-06-05 00:00:00 [facility] ampicillin DA Active SV 2018-06-05 00:00:00 [facility] tramadol DA Active U 2018-06-05 00:00:00 [facility] gabapentin DA Active SV 2018-06-05 00:00:00 [facility] metoclopramide DA Active U 2018-06-05 00:00:00 [facility] ondansetron DA Active [place] 2018-06-05 00:00:00 [facility] ketorolac DA Active MO 2018-06-05 00:00:00 [facility] Gabapentin Propensity to adverse reactions to drug Active 2018-05-02 00:00:00 Eliel Methodis t Ketorolac Propensity to adverse reactions to drug Active 2018-05-02 00:00:00 Eliel Doshiis t Morphine Allergy to Substance Active 2018-04-10 00:00:00 [facility] morphine DA Active [place] 2018-03-27 00:00:00 [facility] ampicillin DA Active SV 2018-03-27 00:00:00 [facility] tramadol DA Active U 2018-03-27 00:00:00 [facility] gabapentin DA Active SV 2018-03-27 00:00:00 [facility] metoclopramide DA Active U 2018-03-27 00:00:00 [facility] ondansetron DA Active [place] 2018-03-27 00:00:00 [facility] ketorolac DA Active MO 2018-03-27 00:00:00 [facility] Morphine Propensity to adverse reactions to drug Active Other (See Comments) 2017-12-22 00:00:00 Ears ring Eliel saavedra Hydrocodone-Acetaminophen Propensity to adverse reactions to drug Act devonte Rash 2017-12-22 00:00:00 Pt notified he canno t take norco as its one of his previous allergy . Ok to take tylenol with codeine no reaction Eliel Garcia Tramadol Propensity to adverse reactions to drug Active 2017-12-22 00:00:00 Eliel Garcia morphine DA Active [place] 2017-11-20 00:00:00 [facility] ampicillin DA Active SV 2017-11-20 00:00:00 [facility] tramadol DA Active U 2017-11-20 00:00:00 [facility] gabapentin DA Active SV 2017-11-20 00:00:00 [facility] metoclopramide DA Active U 2017-11-20 00:00:00 [facility] ondansetron DA Active [place] 2017-11-20 00:00:00 [facility] ketorolac DA Active MO 2017-11-20 00:00:00 [facility] morphine DA Active [place] 2017-11-01 00:00:00 [facility] ampicillin DA Active SV 2017-11-01 00:00:00 [facility] tramadol DA Active U 2017-11-01 00:00:00 [facility] gabapentin DA Active SV 2017-11-01 00:00:00 [facility] metoclopramide DA Active U 2017-11-01 00:00:00 [facility] ondansetron DA Active [place] 2017-11-01 00:00:00 [facility] ketorolac DA Active MO 2017-11-01 00:00:00 [facility] morphine DA Active [place] 2017-09-29 00:00:00 [facility] ampicillin DA Active SV 2017-09-29 00:00:00 [facility] tramadol DA Active U 2017-09-29 00:00:00 [facility] gabapentin DA Active SV 2017-09-29 00:00:00 [facility] metoclopramide DA Active U 2017-09-29 00:00:00 [facility] ondansetron DA Active [place] 2017-09-29 00:00:00 [facility] ketorolac DA Active MO 2017-09-29 00:00:00 [facility] Prochlorperazine Edisylate Propensity to adverse reactions Active 2017-01-05 00:00:00 [facility] [place] Analogues Propensity to adverse reactions Active 2017-01-05 00:00:00 Caused nausea and Syncope ( When he passed out he broke his neck ) [facility] Baclofen Drug Intolerance Active 2016-12-25 00:00:00 [facility] Cyclobenzaprine Drug Intolerance Active 2016-12-25 00:00:00 [facility] Morphine Propensity to adverse reactions Active 2016-12-25 00:00:00 [facility] Metoclopramide Hcl Propensity to adverse reactions to drug Active Rash 2016-01-22 00:00:00 [place] [facility] Metoclopramide Hcl Propensity to adverse reactions Active Rash 2016-01-22 00:00:00 [facility] Ampicillin Propensity to adverse reactions to drug Active Rash 2016-01-21 00:00:00 [facility] Ampicillin Propensity to adverse reactions Active Rash 01-20 00:00:00 [facility] Ondansetron Hcl Propensity to adverse reactions to drug Active Rash 2015-10-23 00:00:00 [facility] Ondansetron Hcl Propensity to adverse reactions Active Rash 2015-10-23 00:00:00 [facility] Other Propensity to adverse reactions Active 00:00:00 Paper tape [facility] Morphine Propensity to adverse reactions to drug Active 2010-07-03 00:00:00 [facility] Ondansetron Hcl (Pf) Propensity to adverse reactions to drug Active 2010-07-03 00:00:00 [facility] ampicillin ampicillin Active Me morial Artur Toradol Toradol Active [facility] Zofran Zofran Active [facility] Neurontin Neurontin Active [facility] Reglan Reglan Active [facility] [place] Active [facility] Paper Tape Paper Tape Active Me morial Artur tra[facility]ol [facility] Family [facility] Family Member Diagnosis Comments Start Date Stop Date Source Natural brother Heart attack [facility] Natural brother Hodgkin's lymphoma [facility] Natural brother Hodgkin's lymphoma [facility] Natural brother Stroke [facility] Natural father Factor V Leiden deficiency [facility] Natural father Heart attack [facility] Natural father Stroke [facility] Natural father COPD [facility] Natural father Cancer [facility] Natural father Heart disease [facility] Natural father Stroke [facility] Natural mother Factor V Leiden deficiency [facility] Natural mother Heart attack [facility] Natural mother COPD [facility] Natural mother Heart disease [facility] Natural mother Hodgkin's lymphoma [facility] Natural sister Hodgkin's [facility] Natural sister Heart disease [facility] Maternal grandmother Hodgkin's lymphoma [facility] Social History Social Habit Start Date Stop Date Quantity Comments Source History of tobacco use Cigarette Smoker [facility] Sex Assigned At [facility] Social History 2018-11-09 07:45:16 2018-11-09 07:45:16 Robert Siddiqui Cigarettes smoked current (pack per day) - Reported 00:00:00 2018-09-24 00:00:00 Eliel Doshiist Cigarette pack-years 2018-09-24 00:00:00 2018-09-24 00:00:00 Eliel Doshiist Alcohol intake 2018-09-24 00:00:00 2018-09-24 00:00:00 [place] Y[facility] Tobacco Comment 2016-01-21 00:00:00 2016-01-21 00:00:00 prev 2-3 pa cks per day Julian Yazidi Smoking Status Start Date Stop Date Source Current every day smoker 2019-03-01 00:00:00 [facility] Tobacco smoking status NHIS 2018-09-28 00:00:00 Robert Artur Medications Ordered Medication Name Filled Medication Name Start Date Stop Da te Current Medication? Ordering Clinician Indication Dosage Frequency Signature (SIG) Comments Components Source Spironolactone 2019-07-12 14:00:00 No Notes: (Same As: Aldactone) Hazardous Drug Group 2:Non-antineoplastic Hazardous Drug -- Refer to safe handling procedure PPE [id number] Me toledomary Artur Citalopram 2019-07-12 14:00:00 No 40 mg, 4 tab, Route: PO, Drug form: TAB, Daily, Dosing Weight 182.045, kg, Start date: 07/12/19 9:00:00 CDT, Duration: 30 day, Stop date: 08/10/19 9:00:00 CDT, 0 [facility] pant[facility]ole 2019-07-12 14:00:00 No Notes: Tablet should not be chewed or crushed. (Same as: Protonix) Amira Siddiqui Trazodone Hydrochloride 100 MG Oral Tablet 2019-07-12 02:00:00 No Route: PO, Drug form: TAB, Bedtime, Dosing Weight 182.045, kg, Start date: 07/11/19 21:00:00 CDT, Duration: 30 day, Stop date: 08/09/19 21:00:00 CDT [facility] trazodone 50 mg oral tablet 2019-07-12 02:00:00 No Notes: (Same As: Desyrel) [facility] Bupropion 2019-07-11 22:00:00 No Notes: (Sa me As: Wellbutrin) [facility] Acetaminophen 300 MG / Codeine Phosphate 30 MG Oral Tablet [Tylenol with Codeine #3] 2019-07-11 21:00:00 No Notes: Do not exceed 4gm/day of acetaminophen. (Same as: Tylenol with Codeine # 3) [facility] LORazepam 2 mg oral tablet 2019-07-11 18:16:00 Yes 2 mg = 1 tab, PO, BID, PRN Anxiety, 0 Refill(s) [facility] Isosorbide 2019-07-11 14:00:00 No 30 mg, 1 tab, Route: PO, Drug form: ERTAB, QAM, Dosing Weight 181.818, kg, Start date: 07/11/19 9:00:00 CDT, Duration: 30 day, Stop date: 08/09/19 9:00:00 CDT, 0 [facility] Digoxin 0.125 MG Oral Tablet 2019-07-11 14:00:00 No 0.125 mg, 1 tab, Route: PO, Drug form: TAB, Daily, Dosing Weight 181.818, kg, Start date: 07/11/19 9:00:00 CDT, Duration: 30 day, Stop date: 08/09/19 9:00:00 CDT, 0 [facility] Furosemide 40 MG Oral Tablet 2019-07-11 14:00:00 No Notes: (Same as: Lasix) May cause GI upset. Give with food or milk. [facility] Saline Flush 0.9% 2019-07-11 02:00:00 No Notes: (Same as: BD Posiflush) [facility] atorvastatin 2019-07-11 02:00:00 No Notes: (Same as: Lipitor) [facility] metoprolol tartrate 2019-07-11 02:00:00 No Notes: (Same as: Lopressor) [facility] pantoprazole 2019-07-11 01:18:00 Yes 40 mg, PO, Daily, # 30 tab, 0 Refill(s) [facility] Ativan 2019-07-10 23:46:00 No Notes: (Same as: Ativan) Robert Siddiqui Bupropion 2019-07-10 23:22:00 Yes 150 mg, PO , BID, 0 Refill(s) Robert Siddiqui pantoprazole 40 mg intravenous injection 2019-07-10 23:22:00 No IV, Daily, 0 Refill(s) Robert Siddiqui empagliflozin 25 MG Oral Tablet [Jardiance] 2019-07-10 23:22:00 No 25 mg = 1 tab, PO, QAM, 0 Refill(s) [facility] Furosemide 40 MG Oral Tablet [Lasix] 2019-07-10 23:22:00 Ye s 40 mg = 1 tab, PO, BID, # 30 tab, 0 [facility]ill(s) [facility] Acetaminophen 300 MG / Codeine Phosphate 30 MG Oral Tablet [Tylenol with Codeine #3] 2019-07-10 23:22:00 Yes 1 ta b, PO, Q8H, # 32 tab, 0 Refill(s) Robert Siddiqui citalopram 40 mg oral tablet 2019-07-10 23:22:00 Yes 40 mg = 1 tab, PO, Daily, # 30 tab, 0 Refill(s) [facility] rivaroxaban 20 MG Oral Tablet [Xarelto] 2019-07-10 23:22:00 No 50 mL/min Robert Siddiqui Albuterol 0.833 MG/ML / Ipratropium Brom tania 0.167 MG/ML Inhalant Solution [DuoNeb] 2019-07-10 22:07:00 No Notes: (S diana as: Duoneb) Robert Siddiqui morphine 0.5 mg/mL preservative-free injectable solution 2019-07-10 22:04:00 No Notes: (Same as:MORPhine Sulfate ) Robert Siddiqui Docusate 2019-07-10 22:00:00 No Notes: (Same as: Colace) (Do Not Crush) Robert Siddiqui Xarelto 2019-07-10 22:00:00 No Notes: (Same as: Xarelto) Administer with food Robert Siddiqui Levetiracetam 500 MG Oral Tablet 2019-07-10 22:00:00 No Notes: (Same as:Keppra) Robert Siddiqui gabapentin 300 MG Oral Capsule 2019-07-10 22:00:00 No 300 mg, 1 cap, Route: PO, Drug form: CAP, TID, Dosing Weight 181.818, kg, Start date: 07/10/19 17:00:00 CDT, Duration: 30 day, Stop date: 08/09/19 13:00:00 CDT [facility] Art[facility] Risperidone 2019-07-10 22:00:00 No Notes: (Same as: Risperdal) [facility] 2:Non-antineoplastic Hazardous Drug -- Refer to safe handling procedure PPE [employer] [facility] Lorazepam 2019-07-10 21:28:00 No Notes: (Sa me as: Ativan) [facility] isosorbide mononitrate 30 mg oral tablet, extended release 2019-07-10 21:25:00 Yes 30 mg = 1 tab, PO, QAM, # 30 ta b, 0 Refill(s) [facility] gabapentin 300 MG Oral Capsule 2019-07-10 21:25:00 No 300 mg = 1 cap, PO, TID, # 90 cap, 0 Refill(s) [facility] nicollel [place] LORazepam 2 mg oral tablet 2019-07-10 21:25:00 No 2 mg = 1 tab, PO, BID, PRN Anxiety, # 60 tab, 0 Refill(s) [facility] 200 ACTUAT Albuterol 0.09 MG/ACTUAT Metered Dose Inhaler [Pr oventil] 2019-07-10 21:25:00 Yes 1 puff, INHALER, QID, PRN for wheezing, # 25 gm, 0 Refill(s) [facility] atorvastatin 40 mg oral tablet 2019-07-10 21:25:00 Yes 40 mg = 1 tab, PO, Bedtime, # 30 tab, 0 Refill(s) [facility] Levetiracetam 500 MG Oral Tablet 2019-07-10 21:25:00 No 1,000 mg = 2 tab, PO, BID, # 120 tab, 0 [facility] [place] risperiDONE 2 mg oral tablet 2019-07-10 21:25:00 Yes 2 mg = 1 tab, PO, BID, # 60 tab, 0 Refill(s) [facility] spironolactone 50 mg oral tablet 2019-07-10 21:25:00 No 50 mg = 1 tab, PO, Daily, # 60 tab, 0 Refill(s) Me fransisca Siddiqui Furosemide 40 MG Oral Tablet 2019-07-10 21:25:00 No 40 mg = 1 tab, PO, Daily, # 30 tab, 0 Refill(s) Brien Siddiqui Metoprolol Tartrate 25 mg oral tablet 2019-07-10 21:25:00 Y es 25 mg = 1 tab, PO, BID, # 60 tab, 0 Refill(s) Robert Siddiqui Digoxin 0.125 MG Oral Tablet 2019-07-10 21:25:00 Yes 0.125 mg, PO, Daily, # 30 tab, 0 Refill(s) Robert montalvo Trazodone Hydrochloride 100 MG Oral Tablet 2019-07-10 21:25:00 Yes See Instructions, 2 tab PO Bedtime 30 day, 0 Refill(s) Robert Siddiqui rivaroxaban 20 MG Oral Tablet [Xarelto] 2019-07-10 21:24:00 Yes 50 mL/min Robert Siddiqui Dextrose 50% Syringe (D50W) 2019-07-10 21:03:00 No 12.5 gm, 25 mL, Route: IVP, Drug Form: INJ, Dosing Weight 181.818, kg, PRN, PRN Blood Glucose Results, Start date: 07/10/19 16:03:00 CDT, Duration: 30 day, Stop date: 08/09/19 16:02:00 CDT, 0 Robert Vazquez n Glucagon 2019-07-10 21:03:00 No 1 mg, Route: IM, Drug form: PDR/INJ, PRN, Dosing Weight 181.818, kg, PRN Blood Glucose Results, Start date: 07/10/19 16:03:00 CDT, Duration: 30 day, Stop date: 08/09/19 16:02:00 CDT, 0 Robert Siddiqui Insulin Lispro 2019-07-10 21:03:00 No Notes: (Same as: Humalog) Roll in palms of hands gently; Do not shake vigorously. WASTE: F/P - Black; E - Municipal Trash Bin Stable for 28 days at room temperature. Expires in days from Date Robert montalvo Saline Flush 0.9% 2019-07-10 21:01:00 No Notes: (Same as: BD Posiflush) [facility] Dextrose 50% Syringe (D50W) 2019-07-10 20:59:00 No 25 mL, Route: IVP, Dosing Weight 181.818, kg, PRN, PRN Blood Glucose Results, Start date: 07/10/19 15:59:00 CDT, Duration: 30 day, Stop date: 08/09/19 15:58:00 CDT [facility] Glucagon 2019-07-10 20:59:00 No 1 mg, Route: IM, PRN, Dosing Weight 181.818, kg, PRN Blood Glucose Results, Start date: 07/10/19 15:59:00 CDT, Duration: 30 day, Stop date: 08/09/19 15:58:00 CDT [facility] POLYETHYLENE GLYCOL 3350 2019-07-10 20:59:00 No Notes: Dissolve in 8 oz of water or juice. (Same as: Miralax) [facility] Bisacodyl 2019-07-10 20:59:00 No Notes: (Same As: Dulcolax, Bisco-Lax) [facility] Melatonin 2019-07-10 20:59:00 No Notes: (Sa me as: Melatonin) [facility] Hydralazine 2019-07-10 20:59:00 No Notes: (Same as: Apresoline) Push over 5 minutes [facility] Aspirin 2019-07-10 20:02:00 No Notes: (Do Not Crush) Do not crush or chew. [facility] Saline Flush 0.9% 2019-07-10 18:12:00 No Notes: (Same as: BD Posiflush) [facility] Aspirin 81 MG Enteric Coated Tablet 2019-03-13 15:00:00 No Notes: Do not crush or chew. (Same As: Ecotrin) [facility] Ativan 2019-03-13 09:31:00 No Notes: (Same as: Ativan) [facility] Acetaminophen 300 MG / Codeine Phosphate 30 MG Oral Tablet [Tylenol with Codeine #3] 2019-03-13 07:10:00 No Notes: Do not exceed 4gm/day of acetaminophen. (Same as: Tylenol with Codeine # 3) [facility] Famotidine 2019-03-13 03:00:00 No Notes: (S diana as: Pepcid) [facility] [place] atorvastatin 2019-03-13 03:00:00 No Notes: (Same as: Lipitor) [facility] [place] Saline Flush 0.9% 2019-03-13 03:00:00 No Notes: preservative free. [facility] [place] methadone 10 mg oral tablet 2019-03-13 01:34:00 Yes 10 mg = 1 tab, PO, BID, 0 Refill(s) [facility] [place] pregabalin 100 MG Oral Capsule [Lyrica] 2019-03-13 01:34:00 Yes 100 mg = 1 cap, PO, TID, # 90 cap, 0 Refill(s) [facility] Art[facility] Risperdal 2019-03-13 01:34:00 Yes PO, Daily, 0 Refill(s) [facility] Enoxaparin 2019-03-13 01:00:00 No Notes: (S diana as: Lovenox) [facility] Saline Flush 0.9% 2019-03-13 00:56:00 No Notes: preservative free. [facility] NS (Bolus) IV 2019-03-12 22:58:00 No 1,000 mL, 1,000 ml/hr, Infuse Over: 1 hr, Route: IV, 1,000, Drug form: INJ, ONCE, Priority: STAT, Dosing Weight 187.727 kg, Start date: 03/12/19 16:58:00 BATON TWIRLER, Stop date: 03/12/19 16:58:00 BATON TWIRLER, 0 [facility] Tylenol 2019-03-12 22:58:00 No 650 mg, Route: PO, Drug form: TAB, ONCE, Dosing Weight 187.727, kg, Priority: STAT, Start date: 03/12/19 16:58:00 BATON TWIRLER, Stop date: 03/12/19 16:58:00 BATON TWIRLER Dc morial Artur Benadryl 2019-03-12 22:58:00 No Notes: (Samuel e as: Benadryl) [facility] Compazine 2019-03-12 22:58:00 No Notes: (Sa me as: Compazine) [facility] Aspirin 2019-03-12 22:04:00 No 324 mg, Route: CHEW, Drug form: CHEWTAB, ONCE, Dosing Weight 187.727, kg, Priority: STAT, Start date: 03/12/19 16:04:00 BATON TWIRLER, Stop date: 03/12/19 16:04:00 BATON TWIRLER Robert Siddiqui Morphine 2019-01-11 22:17:00 No 4 mg, Route: IVP, ONCE, Dosing Weight 185.455, kg, Priority: STAT, Start date: 01/11/19 16:17:00 BATON TWIRLER, Stop date: 01/11/19 16:17:00 BATON TWIRLER Robert liu Iohexol 2019-01-11 22:06:00 No 100 mL, Route: IVP, Drug Form: SOLN, Dosing Weight 185.455, kg, ONCALL, STAT, Start date: 01/11/19 16:06:00 BATON TWIRLER, Duration: 1 doses or times, Dose = 2.2ml/kg, Max dose = 100ml -- "To be infused by Radiology Staff ONLY" Robert Parisi nn Morphine 2019-01-11 21:00:00 No Not es: (Same as:MORPhine Sulfate) [facility] metoprolol (LOPRESSOR) 25 MG tablet 2019-01-06 00:00:00 Yes 37.5mg Q.5D Take 1.5 tablets (37.5 mg total) by mouth 2 (two) times daily. [facility] albuterol (ACCUNEB) 0.63 mg/3 mL nebulizer solution 2018-12-30 07:40:2018-12-30 00:00:00 No 1{ampule} Take 1 ampule by nebulization every 6 (six) hours as needed for Wheezing or Shortness of Breath . [facility] aspirin 81 MG EC tablet 2018-12-30 07:40:2018-12-30 00:00:00 No 81mg QD Take 81 mg by mouth daily. [facility] budesonide (PULMICORT) 90 mcg/actuation inhaler 2018-12-30 07:40:2018-12-30 00:00:00 No 1{puff} Q.5D Inhale 1 puff by mouth via inhaler 2 (two) times daily. [facility] clopidogrel (PLAVIX) 75 mg tablet 2018-12-30 07:40:29 2018 00:00:00 No 75mg QD Take 75 mg by mouth daily. [facility] metFORMIN (GLUCOPHAGE) 1000 MG tablet 2018-12-30 07:40 :29 2018-12-30 00:00:00 No 1000mg Take 1,000 mg b y mouth 2 (two) times daily with breakfast and dinner. [facility] metoprolol (LOPRESSOR) 25 MG tablet 2018-12-30 07:40:2 9 2018-12-30 00:00:00 No 25mg Q.5D Take 25 mg by mouth 2 (two) times daily. [facility] pantoprazole (PROTONIX) 20 MG tablet 2018-12-30 07:40: 29 2018-12-30 00:00:00 No 20mg QD Take 20 mg by mouth daily. [facility] ranolazine (RANEXA) 500 MG 12 hr tablet 07:40:29 2018-12-30 00:00:00 No 500mg Q.5D Take 500 mg by mouth 2 (two) ti mes daily. [facility] QUEtiapine (SEROQUEL) 400 MG tablet 2018-12-30 07:40:2 9 2018-12-30 00:00:00 No 400mg QD Take 400 mg by mouth nightly. [facility] hydrOXYzine (ATARAX) 50 MG tablet 2018-12-30 07:40:29 2018 00:00:00 No 50mg Take 50 mg by mouth every 8 (eight) hour s as needed for Anxiety. [facility] isosorbide mononitrate (IMDUR) 30 MG 24 hr tablet 2018-12-30 07:40:29 2018-12-30 00:00:00 No 30mg Take 30 mg by mouth. [facility] furosemide (LASIX) 40 MG tablet 2018-12-30 07:40:29 00:00:00 No 40mg Q.5D Take 40 mg by mouth 2 (two) times daily . [facility] doxepin (SINEQUAN) 100 MG capsule 2018-12-30 07:40:29 2018 00:00:00 No 100mg QD Take 100 mg by mouth nightly. [facility] DULoxetine (CYMBALTA) 60 MG capsule 2018-12-30 07:40:2 9 2018-12-30 00:00:00 No 60mg QD Take 60 mg by mouth daily. [facility] levETIRAcetam (KEPPRA) 500 MG tablet 2018-12-30 07:40: 29 2018-12-30 00:00:00 No 500mg Q.5D Take 500 mg by mouth 2 (two) times daily . [facility] mirtazapine (REMERON) 7.5 MG tablet 2018-12-30 07:40:2 9 2018-12-30 00:00:00 No 7.5mg QD Take 7.5 mg by mouth nightly. [facility] rivaroxaban (XARELTO) 20 mg Tab tablet 2018-12-19 2 07:40:29 2018-12-30 00:00:00 No 20mg QD Take 20 mg by mouth daily. [facility] albuterol (ACCUNEB) 0.63 mg/3 mL nebulizer solution 2018-02 00:00:00 Yes .63mg Take 3 mLs (0.63 mg total) by nebulization every 6 (six) hours as needed for Wheezing or Shortness of Breath. [facility] aspirin 81 MG EC tablet 2018-12-30 00:00:00 Yes 81mg QD Take 1 tablet (81 mg total) by mouth daily. [facility] atorvastatin (LIPITOR) 40 MG tablet 2018-12-30 00:00:00 Yes 40mg QD Take 1 tablet (40 mg total) by mouth daily. [facility] budesonide (PULMICORT) 90 mcg/actuation inhaler 2018-12-30 00:00 :00 Yes 1{puff} Q.5D Inhale 1 puff by mouth via inhaler 2 (two) times daily . [facility] clopidogrel (PLAVIX) 75 mg tablet 2018-12-30 00:00:00 Yes 75mg QD Take 1 tablet (75 mg total) by mouth daily. [facility] doxepin (SINEQUAN) 100 MG capsule 2018-12-30 00:00:00 Yes 100mg QD Take 1 capsule (100 mg total) by mouth nightly. [facility] DULoxetine (CYMBALTA) 60 MG capsule 2018-12-30 00:00:00 Yes 60mg QD Take 1 capsule (60 mg total) by mouth daily. [facility] furosemide (LASIX) 40 MG tablet 2018-12-30 00:00:00 Yes 40mg Q.5D Take 1 tablet (40 mg total) by mouth 2 (two) times daily. [facility] hydrOXYzine (ATARAX) 50 MG tablet 2018-12-30 00:00:00 Yes 50mg Take 1 tablet (50 mg total) by mouth every 8 (eight) hours as needed for Anxiety. [facility] isosorbide mononitrate (IMDUR) 30 MG 24 hr tablet 2018-12-30 00:00:00 Yes 30mg QD Take 1 tablet (30 mg total) by mouth daily. [facility] levETIRAcetam (KEPPRA) 500 MG tablet 2018-12-30 00:00:00 Ye s 500mg Q.5D Take 1 tablet (500 mg total) by mouth 2 (two) times daily. [facility] metFORMIN (GLUCOPHAGE) 1000 MG tablet 2018-12-30 00:00:00 Y es 1000mg Take 1 tablet (1,000 mg total) by mouth 2 (two) times daily with breakfast and dinner. [facility] mirtazapine (REMERON) 7.5 MG tablet 2018-12-30 00:00:00 Yes 7.5mg QD Take 1 tablet (7.5 mg total) by mouth nightly. [facility] pantoprazole (PROTONIX) 20 MG tablet 2018-12-30 00:00:00 Ye s 20mg QD Take 1 tablet (20 mg total) by mouth daily. [facility] pregabalin (LYRICA) 100 MG capsule 2018-12-30 00:00:00 Yes 100mg Q.5D Take 1 capsule (100 mg total) by mouth 2 (two) times daily. Max Daily Amount: 200 mg [facility] QUEtiapine (SEROQUEL) 400 MG tablet 2018-12-30 00:00:00 Yes 400mg QD Take 1 tablet (400 mg total) by mouth nightly. [facility] ranolazine (RANEXA) 500 MG 12 hr tablet 2018-12-30 00:00:00 Yes 500mg Q.5D Take 1 tablet (500 mg total) by mouth 2 (two) times daily. [facility] rivaroxaban (XARELTO) 20 mg Tab tablet 2018-12-30 00:00:00 Yes 20mg QD Take 1 tablet (20 mg total) by mouth daily. [facility] traZODone (DESYREL) 100 MG tablet 2018-12-30 00:00:00 Yes 200mg QD Take 2 tablets (200 mg total) by mouth nightly. [facility] insulin detemir U-100 (LEVEMIR) 100 unit/mL injection 2018-12-30 00:00:00 Yes 15U QD Inject 15 Units subcutaneously nightly. [facility] metoprolol (LOPRESSOR) 25 MG tablet 2018-12-30 00:00:0 0 2019-01-06 00:00:00 No 50mg Q.5D Take 2 tablets (50 mg total) by mouth 2 (two) times daily. [facility] oxyCODONE-acetaminophen (PERCOCET) 10-325 mg per tablet 2018-12-26 10:00:07 2018-12-26 00:00:00 No 1{tbl} Take 1 tablet by mouth every 6 (six) hours as needed for Pain. [facility] melatonin 5 mg Cap 2018-12-26 09:59:47 2018-12-26 00:00:00 No 5mg QD Take 5 mg by mouth nightly. [place] [facility] LORazepam (ATIVAN) 0.5 MG tablet 2018-12-26 09:59:37 2018-12 00:00:00 No .5mg Take 0.5 mg by mouth every 12 (twelve) ho urs as needed for Anxiety. [facility] acetaminophen (TYLENOL) 325 MG tablet 2018-12-26 09:57 :14 2018-12-26 00:00:00 No 650mg Take 650 mg by mouth every 6 (six) hours as needed for Pain. [facility] ALPRAZolam (XANAX) 0.5 MG tablet 2018-12-07 23:08:51 Yes 2mg Take 2 mg by mouth 3 (three) times daily as needed for Anxiety . [facility] atorvastatin 40 mg oral tablet 2018-11-11 17:59:00 Yes 80 mg = 2 tab, PO, Bedtime, # 90 tab, 0 Refill(s), Pharmacy: [id number] rivaroxaban 20 mg oral tablet 2018-11-11 17:59:00 Yes 20 mg = 1 tab, PO, QPM, # 90 tab, 0 Refill(s), Pharmacy: [id number] Insulin Lispro 2018-11-11 13:55:00 No 10 unit, SUB-Q, TID-Before Meals, 0 Refill(s) [facility] Lyrica 2018-11-11 06:00:00 No Notes: (Same as: Lyrica) [facility] Art[facility] Insulin Glargine 100 UNT/ML Injectable Solution [Lantus] 2018-11-11 05:50:00 No Notes: (Same a s: Lantus) Do not hold insulin without contacting prescriber WASTE: F/P - Black; E - Municipal Trash Bin "single patient use only" Stable for 28 days at room temperature Expires in days from Date [facility] Artur 3 ML Insulin Glargine 100 UNT/ML Prefilled Syringe [Lantus] 2018-11-11 04:21:00 No Notes: (Sa me as: Lantus) Do not hold insulin without contacting prescriber WASTE: F/P - Black; E - Municipal Trash Bin "single patient use only" Stable for 28 days at room temperature Expires in days from Date [facility] selvin Acetaminophen 2018-11-11 04:18:00 No Notes: Do not exceed 4 gm/day. (Same as: Tylenol) [facility] [place] Insulin Glargine 100 UNT/ML Injectable Solution [Lantus] 2018-11-11 03:13:00 Yes 20 unit, SUB-Q, Bedtime, # 10 mL , 3 Refill(s) [facility] atorvastatin 40 mg oral tablet 2018-11-10 19:31:00 No 80 mg = 2 tab, PO, Bedtime, # 90 tab, 0 Refill(s), Pharmacy: [id number] rivaroxaban 20 mg oral tablet 2018-11-10 19:22:00 No 20 mg = 1 tab, PO, QPM, # 90 tab, 0 Refill(s), Pharmacy: [facility] #[id number] [facility] Digoxin 0.125 MG Oral Tablet 2018-11-10 14:00:00 No Notes: Take on an Empty Stomach (Same as: Lanoxin) [facility] [place] 24 HR Metoprolol Tartrate 25 MG Extended Release Tablet [Top rol] 2018-11-10 14:00:00 No Notes: (Same as: Toprol XL) D o Not Crush [facility] Spironolactone 2018-11-10 14:00:00 No Notes: (Same As: Aldactone) [facility] Dextrose 50% Syringe 2018-11-10 11:22:00 No 12.5 gm, 25 mL, Route: IVP, Drug Form: INJ, Dosing Weight 190, kg, PRN, PRN Blood Glucose Results, Start date: 11/10/18 6:22:00 CDT, Duration: 30 day, Stop date: 12/10/18 6:21:00 CDT, 0 [facility] Glucagon 2018-11-10 11:22:00 No 1 mg, Route: IM, Drug form: PDR/INJ, PRN, Dosing Weight 190, kg, PRN Blood Glucose Results, Start date: 11/10/18 6:22:00 CDT, Duration: 30 day, Stop date: 12/10/18 6:21:00 CDT, 0 [facility] Insulin Lispro 2018-11-10 11:22:00 No Notes: (Same as: Humalog) Roll in palms of hands gently; Do not shake vigorously. WASTE: F/P - Black; E - Municipal Trash Bin Stable for 28 days at room temperature. Expires in days from Date [facility] atorvastatin 2018-11-10 02:00:00 No Notes: (Same as: Lipitor) [facility] Trazodone 2018-11-10 02:00:00 No Notes: (Sa me As: Desyrel) Robert Siddiqui Xarelto 2018-11-09 22:00:00 No Notes: (Same as: Xarelto) Administer with food Robert Siddiqui lamoTRIgine 25 mg oral tablet 2018-11-09 22:00:00 No Notes: (Same as:LaMICtal) Robert Siddiqui Furosemide 40 MG Oral Tablet [Lasix] 2018-11-09 20:00:00 No Notes: (Same as: Lasix) May cause GI upset. Give with food or milk. Robert Hdezann Potassium Chloride 1.33 MEQ/ML Oral Solution 2018-11-09 19:31:00 No Notes: (Same as: Potassium Chloride) [facility] mariana Siddiqui Macrobid 2018-11-09 18:19:00 No Notes: Not recommended for patients with CrCl<30 ml/min (Same as:Macrobid) With food. [facility] Artur Nitrofurantoin 2018-11-09 18:00:00 No 100 mg, Route: PO, TID, Dosing Weight 190, kg, Start date: 11/09/18 13:00:00 CDT, Duration: 30 day, Stop date: 12/09/18 9:00:00 CDT [facility] Art[facility] metoprolol tartrate 25 mg oral tablet 2018-11-09 16:26:00 Y es 25 mg = 1 tab, PO, BID, # 60 tab, 0 Refill(s) [facility] Art[facility] lamoTRIgine 25 mg oral tablet 2018-11-09 16:26:00 Yes 25 mg = 1 tab, PO, BID, # 60 tab, 0 Refill(s) [facility] Furo[facility] 40 MG Oral Tablet [Lasix] 2018-11-09 16:26:00 Ye s 40 mg = 1 tab, PO, BID, 0 Refill(s) [facility] Nikolay selvin Ranexa 2018-11-09 16:26:00 Yes 500 mg, PO, B ID, 0 Refill(s) [facility] [place] empagliflozin 25 MG Oral Tablet [Jardiance] 2018-11-09 16:26:00 Yes 25 mg = 1 tab, PO, QAM, 0 Refill(s) Rocky Siddiqui spironolactone 50 mg oral tablet 2018-11-09 16:26:00 Yes 50 mg = 1 tab, PO, Daily, # 30 tab, 1 Refill(s) Dc fransisca Siddiqui isosorbide mononitrate 30 mg oral tablet, extended release 2018-11-09 16:26:00 Yes 30 mg = 1 tab, PO, QAM, # 30 ta b, 0 Refill(s) Robert Siddiqui Digoxin 0.125 MG Oral Tablet 2018-11-09 16:26:00 Yes 125 microgram = 1 tab, PO, Daily, # 30 tab, 0 Refill(s) Robert Siddiqui trazodone 150 mg oral tablet 2018-11-09 16:26:00 Yes 150 mg = 1 tab, PO, Bedtime, # 30 tab, 0 Refill(s) Rocky riakassandra Siddiqui Saline Flush 0.9% 2018-11-09 14:00:00 No Notes: Same as: BD Posiflush Sterile Robert Siddiqui Docusate Sodium 50 MG / sennosides, ASSISTED 8.6 MG Oral Tablet 2018-11-09 14:00:00 No Notes: (Same as [place]-S) Equ iv. to Marjorie-Colace. Robert Siddiqui Plavix 2018-11-09 14:00:00 No Notes: (Same As: Plavix) Robert Siddiqui Levetiracetam 500 MG Oral Tablet [Keppra] 2018-11-09 14:00:00 No Notes: (Same as:Keppra) Robert Siddiqui Aspirin 325 MG Enteric Coated Tablet 2018-11-09 08:13:00 No Notes: (Do Not Crush) Do not crush or chew. Dc fransisca Siddiqui Promethazine 2018-11-09 05:14:00 No Notes: . (Same as: Phenergan) Robert Siddiqui Morphine 2018-11-09 05:14:00 No Not es: (Same as:MORPhine Sulfate) Robert Siddiqui heparin sodium, porcine 2500 UNT/ML Injectable Solution 2018-11-09 05:00:00 No Notes: porcine [facility] Aspirin 325 MG Enteric Coated Tablet 2018-11-09 03:00:00 No Notes: (Do Not Crush) Do not crush or chew. Dc fransisca Siddiqui Isolyte S PH-7.4 (Bolus) IV 2018-11-09 02:21:00 No Notes: (Same as: Isolyte S PH 7.4) [facility] Sodium Chloride 0.9% IV 1,000 mL 2018-11-09 02:04:00 No 1,000 mL, Rate: 75 ml/hr, Infuse over: 13.3 hr, Route: IV, Total Volume: 1,000, Start date: 11/08/18 21:04:00 CDT, Duration: 30 day, Stop date: 12/08/18 21:03:00 CDT, 0 [facility] Saline Flush 0.9% 2018-11-09 02:04:00 No Notes: Same as: BD Posiflush Sterile [facility] Labetalol 2018-11-09 02:04:00 No 10 mg, 2 mL, Route: IVP, Drug form: INJ, Q15Min, kg, PRN Hypertension, Start date: 11/08/18 21:04:00 CDT, Duration: 30 day, Stop date: 12/08/18 21:03:00 CDT, 0 [facility] Hydralazine 2018-11-09 02:04:00 No Notes: (Same as: Apresoline) Push over 5 minutes [facility] Saline Flush 0.9% 2018-11-09 01:18:00 No Notes: Same as: BD Posiflush Sterile [facility] traZODone (DESYREL) 100 MG tablet 2018-11-09 00:00:00 2018 00:00:00 No 200mg QD Take 200 mg by mouth nightly. [facility] DULoxetine 20 mg capsule 2018-09-29 23:05:02 Yes Take 40 mg by mouth 2 (two) times daily. [facility] isosorbide mononitrate 30 mg 24 hr tablet 2018-09-29 23:05:02 Yes Take 30 mg by mouth daily. [facility] levETIRAcetam (KEPPRA) 500 mg tablet 2018-09-29 23:05:02 Ye s Take 500 mg by mouth 2 (two) times daily. [facility] lamotrigine (LAMICTAL ORAL) 2018-09-29 23:05:02 Yes Take 25 mg by mouth 2 (two) times daily. [facility] pregabalin (LYRICA) 100 mg capsule 2018-09-29 23:05:02 Yes Take 100 mg by mouth 2 (two) times daily. Brien Siddiqui meloxicam (MOBIC) 15 mg tablet 2018-09-29 23:05:02 Yes Take 15 mg by mouth as needed for Inflammation. Alanguillermo lopezkassandra Siddiqui pantoprazole 20 mg EC tablet 2018-09-29 23:05:02 Yes Take 40 mg by mouth daily. Robert Siddiqui homeopathic drugs (RENEEL ORAL) 2018-09-29 23:05:02 Yes Take by mouth. Robert Siddiqui risperiDONE (RISPERDAL) 0.5 mg tablet 2018-09-29 23:05:02 Y es Take 0.5 mg by mouth 2 (two) times daily. Alan Siddiqui doxepin 100 mg capsule 2018-09-29 23:05:02 Yes Take 100 mg by mouth at bedtime. Robert Siddiqui traZODone 150 mg tablet 2018-09-29 23:05:02 Yes Take 150 mg by mouth at bedtime. Robert Siddiqui Hyoscyamine Sulfate (ANASPAZ) 0.125 mg TbDL 2018-09-29 23:05:02 Yes Take 0.125 mg by mouth every 4 (four) hours as needed. Robert Siddiqui cyclobenzaprine HCl (FLEXERIL ORAL) 2018-09-29 23:05:02 Yes Take 10 mg by mouth every 8 (eight) hours as needed. Robert Siddiqui hydrOXYzine 50 mg capsule 2018-09-29 23:05:02 Yes Take 50 mg by mouth 3 (three) times daily as needed for Anxiety. Robert Siddiqui albuterol (PROAIR HFA) 90 mcg/actuation inhaler 2018-09-29 23:05 :02 Yes Inhale 2 Puffs every 6 (six) hours as needed for Wheezing or Shortness of Breath. Robert Siddiqui proMETHazine 25 mg tablet 2018-09-29 23:05:02 Yes Take 25 mg by mouth every 6 (six) hours as needed. [facility] mariana Siddiqui aspirin 81 mg chewable tablet 2018-09-29 23:05:02 Yes Take 81 mg by mouth daily. Robert Siddiqui digoxin 125 mcg tablet 2018-09-29 23:05:02 Yes Take 0.125 mg by mouth daily. Robert Siddiqui insulin lispro (HUMALOG KWIKPEN INSULIN SC) 2018-09-29 23:05:02 Yes inject under the skin before meals as needed (150-200 blood glucose - 4 units; 201-300 blood glucose - 6 units; 301-400 blood glucose - 8 units; 401 and above blood glucose call MD). Robert Siddiqui KCL 10 mEq tablet 2018-09-29 23:05:02 Yes Take 10 mEq by mouth 2 (two) times daily. Robert Siddiqui metFORMIN 1,000 mg tablet 2018-09-29 23:05:02 Yes Take 1,000 mg by mouth 2 (two) times daily with meals. Me fransisca Siddiqui spironolactone 50 mg tablet 2018-09-29 23:05:02 Yes Take 50 mg by mouth daily. Robert Siddiqui rivaroxaban (XARELTO) 20 mg tablet 2018-09-29 23:05:02 Yes Take 20 mg by mouth every evening. Robert page Carisoprodol 250 mg tablet 2018-09-29 23:05:02 Yes Take 250 mg by mouth every 8 (eight) hours as needed (Muscle spasm). Robert Siddiqui nitroglycerin 0.4 mg sublingual tablet 2018-09-29 23:05:[address] 0.4 mg under the tongue every 5 (five) minutes as needed for Chest pain. Robert Siddiqui Loperamide HCl (IMODIUM A-D) 2 mg Tab tablet 2018-09-29 23:05:02 Yes Take 2 mg by mouth 4 (four) times daily as needed for Other (Josefa rrhea). Robert Siddiqui lactulose 10 gram/15 mL oral solution 2018-09-29 23:05:02 Y es Take 30 mL by mouth 2 (two) times daily as needed for Constipation. Robert Siddiqui LORazepam 1 mg tablet 2018-09-29 23:05:02 Yes Take 1 mg by mouth 3 (three) times daily. Robert Siddiqui furosemide 40 mg tablet 2018-09-29 00:00:00 Yes Take 2 tablets by mouth every morning and evening. Brien Siddiqui carisoprodol 350 mg tablet 2018-09-20 00:00:00 No Take 350 mg by mouth every 8 (eight) hours as needed. Amira Siddiqui multivit with iron,minerals (GENERIX T ORAL) 2018-09-20 00:00:00 No Take 30 mL by mouth 2 (two) times daily as needed. Robert Siddiqui metoprolol tartrate 25 mg tablet 2018-09-20 00:00:00 No Take 25 mg by mouth 2 (two) times daily. Robert conn ALPRAZolam (XANAX) 2 mg tablet 2018-09-20 00:00:00 No Take 2 mg by mouth 2 (two) times daily as needed for Anxiety. Robert Siddiqui clopidogrel 75 mg tablet 2018-09-20 00:00:00 No Take 75 mg by mouth daily. Robert Siddiqui metoprolol tartrate 50 mg tablet 2018-09-20 00:00:00 Yes Take 1 tablet by mouth 2 (two) times daily for 30 days. Robert Siddiqui carisoprodol 350 mg tablet 2018-09-15 14:27:06 Yes Take 350 mg by mouth every 8 (eight) hours as needed. Amira Siddiqui multivit with iron,minerals (GENERIX T ORAL) 2018-09-15 14:27:06 Yes Take 30 mL by mouth 2 (two) times daily as needed. [facility] Artur metoprolol tartrate 25 mg tablet 2018-09-15 14:27:06 Yes Take 25 mg by mouth 2 (two) times daily. [facility] Elvia conn ALPRAZolam (XANAX) 2 mg tablet 2018-09-15 14:27:06 Yes Take 2 mg by mouth 2 (two) times daily as needed for Anxiety. [facility] Artur atorvastatin 80 mg tablet 2018-07-15 00:00:00 Yes Take 1 tablet by mouth every evening. [facility] Artur insulin glargine 100 unit/mL injection 2018-07-15 00:00:00 Yes inject 20 Units under the skin every 12 (twelve) hours. [facility] [place] furosemide 40 mg tablet 2018-07-09 00:00:00 No Take 1 tablet by mouth 3 (three) times daily. [facility] selvin furosemide (LASIX) 40 mg tablet 2018-05-04 14:07:46 Yes 40mg Q.5D Take 40 mg by mouth 2 (two) times a day. Liv Garcia nitroglycerin (NITROSTAT) 0.4 MG SL tablet 2018-05-04 14:07:[address] 0.4 mg under the tongue every 5 (f devonte) minutes as needed for chest pain. Eliel Garcia metoprolol tartrate (LOPRESSOR) 25 mg tablet 2018-05-04 14:07:46 Yes 25mg Q.5D Take 25 mg by mouth 2 (two) times a day. Eliel Garcia potassium chloride (KLOR-CON) 20 mEq packet 2018-05-04 14:07:46 Yes 20meq QD Take 20 mEq by mouth every morning. Eliel Garcia clonAZEPAM (KlonoPIN) 1 MG tablet 2018-05-04 14:07:46 Yes 1mg Q.5D Take 1 mg by mouth 2 (two) times a day as needed for seizures. Eliel Garcia levETIRAcetam (KEPPRA) 500 MG tablet 2018-05-04 14:07:45 Ye s 500mg Q.5D Take 500 mg by mouth 2 (two) times a day. Eliel Garcia pregabalin (LYRICA) 100 MG capsule 2018-05-04 14:07:45 Yes 100mg Q.5D Take 100 mg by mouth 2 (two) times a day. Eliel Garcia ranolazine (RANEXA) 500 MG 12 hr ER tablet 2018-05-04 14:07:45 Yes 500mg Q.5D Take 500 mg by mouth 2 (two) times a day. Eliel Garcia fenofibrate (TRICOR) 145 MG tablet 2018-05-04 14:07:45 Yes 145mg QD Take 145 mg by mouth every morning. Eliel Garcia rivaroxaban (XARELTO) 20 mg tablet 2018-05-04 14:07:45 Yes 20mg QD Take 20 mg by mouth every evening. Eliel Collier ethkeri traZODone (DESYREL) 150 MG tablet 2018-05-04 14:07:45 Yes 150mg QD Take 150 mg by mouth nightly as needed. Anne Marie Garcia hyoscyamine (ANASPAZ,LEVSIN) 0.125 mg tablet 2018-05-04 14:07:45 Yes .125mg Q4H Take 0.125 mg by mouth every 4 (four) hours as needed (nausea). Eliel Garcia carisoprodol (SOMA) 350 MG tablet 2018-05-04 14:07:45 Yes 350mg Q8H Take 350 mg by mouth every 8 (eight) hours as needed for muscle spasms. Eliel Garcia albuterol (PROAIR HFA,PROVENTIL HFA,VENTOLIN HFA) 90 mcg/act uation inhaler 2018-05-04 14:07:45 Yes 2{puff} Q4H Inhale 2 puffs every 4 (four) hours as needed for wheezing or shortness of breath. Eliel Garcia promethazine (PHENERGAN) 25 MG tablet 2018-05-04 14:07:45 Y es 25mg Q6H Take 25 mg by mouth every 6 (six) hours as needed for nausea or vomiting (congestion). Eliel Garcia metFORMIN (GLUCOPHAGE) 500 mg tablet 2018-05-04 00:00: 00 2019-05-04 23:59:00 No 500mg Q.5D Take 1 tablet ( 500 mg total) by mouth 2 (two) times a day with meals. Eliel Garcia Aspirin (Aspir 81) 81 Mg Tablet. Aspirin (Aspir 81) 81 Mg Tablet. 2018-04-10 00:00:00 Yes Oracio Starr Md 81 Daily [facility] pregabalin (LYRICA) 100 MG capsule 2017-02-19 00:00:00 201 10-30-11 00:00:00 No 100mg Q.5D Take 1 capsule ( 100 mg total) by mouth 2 (two) times daily. Max Daily Amount: 200 mg [facility] carisoprodol (SOMA) 350 MG tablet 2017-02-06 00:00:00 Yes 350mg Take 1 tablet (350 mg total) by mouth every 8 (eight) hours as needed for Muscle spasms. Max Daily Amount: 1,050 mg [facility] methadone (DOLOPHINE) 5 MG tablet 2017-01-24 16:22:44 Yes 5mg Take 5 mg by mouth 2 (two) times daily as needed for Pain. [facility] potassium chloride (KLOR-CON) 20 mEq packet 2016-12-25 10:28:53 Yes 20meq QD Take 20 mEq by mouth daily. [facility] pantoprazole (PROTONIX) 40 MG EC tablet 2016-04-12 00:00:00 Yes 20mg QD Take 20 mg by mouth every morning. Anne Marie Garcia atorvastatin (LIPITOR) 40 MG tablet 2016-01-25 00:00:00 Yes 40mg QD Take 40 mg by mouth nightly. Eliel jimenez atorvastatin (LIPITOR) 40 MG tablet 2016-01-25 00:00:0 0 2018-12-30 00:00:00 No 40mg QD Take 40 mg by mouth daily . [facility] clopidogrel (PLAVIX) 75 mg tablet 2010-07-04 00:00:00 Yes Other pulmonary embolism and infarction 75mg QD Take 1 Tab by mouth daily. [facility] gabapentin (NEURONTIN) 300 mg capsule 2010-07-04 00:00:00 Yes Psychiatric problem 600mg Q.5D Take 2 Caps by mouth 2 times daily. [facility] nitroGLYCERIN (NITROSTAT) 0.4 mg sublingual tablet 2010-06 00:00:00 Yes Chest pain, unspecified .4mg Place 1 Tab under tongue every 5 minutes as needed for Chest pain. [facility] warfarin (COUMADIN) 7.5 mg tablet 2010-07-04 00:00:00 Yes Pulmonary embolus 7.5mg QD Take 1 Tab by mouth daily (warfarin). [facility] risperdone (RISPERDAL) 1 mg tablet 2010-07-04 00:00:00 Yes Psychiatric problem Take by mouth every morning. 0.5mg in am2.5mg in pmAs previously instructed [facility] famotidine (PEPCID) 20 mg tablet 2010-07-04 00:00:00 Yes Chest pain 20mg Q.5D Take 1 Tab by mouth 2 times daily. [facility] lisinopril (PRINIVIL, ZESTRIL) 2.5 mg tablet 2010-07-04 00:0 0:00 Yes Chest pain 20mg QD Take 8 Tabs by mouth daily. [facility] metoprolol tartrate (LOPRESSOR) 25 mg tablet 2010-07-04 00:0 0:00 Yes Chest pain 25mg Q.5D Take 1 Tab by mouth 2 times daily. [facility] rosuvastatin (CRESTOR) 10 mg tablet 2010-07-04 00:00:00 Yes Pulmonary embolus 10mg Take 1 Tab by mouth at bedtime. [facility] Atorvastatin Calcium 20 Mg Tablet Atorvastatin Calcium 20 Mg Tablet Yes 40 Bedtime [facility] Carisoprodol (Soma) 350 Mg Tablet Carisoprodol (Soma) 350 Mg Tablet Yes 350 Every 8 Hours as needed for Cramps [facility] Clopidogrel Bisulfate (Plavix) 75 Mg Tablet Clopidogre l Bisulfate (Plavix) 75 Mg Tablet Yes 75 Daily [facility] Digoxin 125 Mcg Tablet Digoxin 125 Mcg Tablet Yes 125 Daily [facility] Doxepin Hcl 25 Mg Capsule Doxepin Hcl 25 Mg Capsule Yes 100 Qhs [facility] Duloxetine Hcl (Cymbalta) 30 Mg Capsule. Duloxetine Hcl (Cymbalta) 30 Mg Capsule. Yes 40 Twice A Day [facility] Ergocalciferol (Vitamin D2) (Vitamin D2) 50,000 Unit C apsule Ergocalciferol (Vitamin D2) (Vitamin D2) 50,000 Unit Capsule Yes 5000 0 Daily [facility] Fenofibrate (Tricor) 145 Mg Tab Fenofibrate (Tricor) 145 Mg Tab Yes 145 Daily [facility] Furosemide 40 Mg Tablet Furosemide 40 Mg Tablet Yes 80 Twice A Day [facility] Isosorb [place]/Imdur Isosorb [place]/Imdur Yes 30 Da jonny [facility] Jardiance 25 Mg Jardiance 25 Mg Yes 25 Daily [facility] Lamotrigine (Lamictal) 25 Mg Tab Lamotrigine (Lamictal) 25 Mg Tab Yes Twice A Day [facility] Lamotrigine 25 Mg Tablet Lamotrigine 25 Mg Tablet Yes 25 Twice A Day [facility] Levetiracetam (Keppra) 500 Mg Tablet Levetiracetam (Keppra) 500 Mg Tablet Yes 500 Twice A Day [facility] Lorazepam 0.5 Mg Tablet Lorazepam 0.5 Mg Tablet Yes .5 Every 8 Hours as needed for Anxiety [facility] Meloxicam (Mobic) 15 Mg Tablet Meloxicam (Mobic) 15 Mg Tablet Yes 15 Daily [facility] Metformin Hcl 1,000 Mg Tablet Metformin Hcl 1,000 Mg Tablet Yes 1000 Twice A Day [facility] Metoprolol Tartrate 25 Mg Tablet Metoprolol Tartrate 25 Mg Tablet Yes 25 Twice A Day [facility] Pantoprazole Sodium (Protonix) 40 Mg Tablet. Pantopr azole Sodium (Protonix) 40 Mg Tablet. Yes 20 Daily [facility] Potassium Chloride (K Dur*) 10 Meq Tabcr Potassium Chl oride (K Dur*) 10 Meq Tabcr Yes 10 Daily [facility] Promethazine Hcl 25 Mg Tablet Promethazine Hcl 25 Mg Tablet Yes 25 Every 6 Hours as needed for Nasal Congestion [facility] Ranolazine (Ranexa) 500 Mg Tabsr Ranolazine (Ranexa) 500 Mg Tabsr Yes 500 Twice A Day [facility] Risperidone (Risperdal) 1 Mg Tablet Risperidone (Risperdal) 1 Mg Tabl et Yes 2 Twice A Day [facility] Rivaroxaban (Xarelto) 20 Mg Tablet Rivaroxaban (Xarelto) 20 Mg Tablet Yes Daily [facility] Spironolactone 50 Mg Tablet Spironolactone 50 Mg Tablet Yes 50 Daily [facility] Trazodone Hcl 50 Mg Tablet T[facility]odone Hcl 50 Mg Tablet Yes [facility] Mg Tab, 7.5 Mg Oral Mirtazapine 15 Mg Tab, 7.5 Mg Oral 2018-10-22 00:00:00 [facility] Pregabalin (Lyrica) 50 Mg Cap, 100 Mg Oral Pregabalin (Lyrica) 50 Mg Cap, 100 Mg Oral 2018-10-22 00:00:00 No 100 Twice A Day [facility] Quetiapine Fumarate 25 Mg Tablet, 25 Mg Oral Quetiapin e Fumarate 25 Mg Tablet, 25 Mg Oral 2018-10-22 00:00:00 No 25 Every Morning [facility] Quetiapine Fumarate 100 Mg Tablet, 425 Mg Oral Quetiap ine Fumarate 100 Mg Tablet, 425 Mg Oral 2018-10-22 00:00:00 No 425 Qhs [facility] Hydroxyzine Hcl 25 Mg Tablet, 50 Mg Oral Hydroxyzine H cl 25 Mg Tablet, 50 Mg Oral 2018-02-09 00:00:00 No 50 Every 8 Hours as n eeded for Anxiety [facility] Prednisone 10 Mg Tab, 10 Mg Oral Prednisone 10 Mg Tab, 10 Mg Ora l 2018-02-09 00:00:00 No 10 Twice A Day [facility] Vital Signs Vital Name Observation Time Observation Value Comments Source Systolic (mm Hg) 2019-07-12 09:55:00 Rocky rial Artur Diastolic (mm Hg) 2019-07-12 09:55:00 [facility] [place] Heart Rate 2019-07-12 09:55:00 [facility] [place] Respitory Rate 2019-07-12 09:55:00 [facility] [place] Temperature Oral (F) 2019-07-12 09:55:00 99.9 F [facility] [place] Systolic (mm Hg) 2019-07-12 08:20:00 Rocky rial Artur Diastolic (mm Hg) 2019-07-12 08:20:00 [facility] [place] Systolic (mm Hg) 2019-07-12 05:55:00 Rocky rial [place] Diastolic (mm Hg) 2019-07-12 05:55:00 [facility] [place] Heart Rate 2019-07-12 05:55:00 [facility] [place] Respitory Rate 2019-07-12 05:55:00 Memori al [facility] Heart Rate 2019-07-12 05:46:00 [facility] [place] Respitory Rate 2019-07-12 05:46:00 Memori al [facility] Temperature Oral (F) 2019-07-12 05:46:00 101.4 F [facility] [place] Temperature Oral (F) 2019-07-11 17:00:00 97.8 F [facility] [place] Heart Rate 2019-07-11 17:00:00 [facility] [place] Respitory Rate 2019-07-11 17:00:00 Memori al [facility] Systolic (mm Hg) 2019-07-11 17:00:00 Rocky rial [place] Diastolic (mm Hg) 2019-07-11 17:00:00 [facility] [place] Weight 2019-07-11 13:45:00 [facility] [place] Temperature Oral (F) 2019-07-11 12:01:00 97.8 F [facility] Heart Rate 2019-07-11 12:01:00 [facility] Systolic (mm Hg) 2019-07-11 12:01:00 Rocky rial [place] Diastolic (mm Hg) 2019-07-11 12:01:00 [facility] [place] Respitory Rate 2019-07-11 12:01:00 Memori al [facility] Temperature Oral (F) 2019-07-11 08:44:00 98.3 F [facility] [place] Heart Rate 2019-07-11 08:44:00 [facility] Respitory Rate 2019-07-11 08:44:00 [facility] [place] Systolic (mm Hg) 2019-07-11 08:44:00 Rocky rial [place] Diastolic (mm Hg) 2019-07-11 08:44:00 Mem o[facility] Height 2019-07-11 00:10:00 187.96 cm [facility] Weight 2019-07-11 00:10:00 [facility] BMI Calculated 2019-07-11 00:10:00 [facility] [place] Height 2019-07-10 18:22:00 187.96 cm [facility] [place] BMI Calculated 2019-07-10 18:22:00 [facility] [place] Weight 2019-07-10 18:22:00 [facility] [place] Respitory Rate 2019-03-13 12:56:00 [facility] [place] Temperature Oral (F) 2019-03-13 10:56:00 98.2 F [facility] Heart Rate 2019-03-13 10:56:00 [facility] [place] Respitory Rate 2019-03-13 10:56:00 Memori al [facility] Systolic (mm Hg) 2019-03-13 10:56:00 Rocky rial Artur Diastolic (mm Hg) 2019-03-13 10:56:00 [facility] [place] Temperature Oral (F) 2019-03-13 05:15:00 98.3 F [facility] [place] Heart Rate 2019-03-13 05:15:00 [facility] [place] Respitory Rate 2019-03-13 05:15:00 [facility] [place] Systolic (mm Hg) 2019-03-13 05:15:00 Rocky rial [place] Diastolic (mm Hg) 2019-03-13 05:15:00 Mem o[facility] Temperature Oral (F) 2019-03-13 02:21:00 97.8 F [facility] Heart Rate 2019-03-13 02:21:00 [facility] [place] Systolic (mm Hg) 2019-03-13 02:21:00 Rocky rial Artur Diastolic (mm Hg) 2019-03-13 02:21:00 Mem [facility] Height 2019-03-13 01:26:00 187.96 cm [facility] [place] Weight 2019-03-13 01:26:00 [facility] BMI Calculated 2019-03-13 01:26:00 [facility] [place] Height 2019-03-12 19:42:00 187.96 cm [facility] [place] BMI Calculated 2019-03-12 19:42:00 [facility] [place] Weight 2019-03-12 19:42:00 [facility] Body temperature 2019-02-24 12:49:00 37.17 Rose [facility] Systolic blood pressure 2019-02-24 12:45:00 117 mm[Hg] [facility] Diastolic blood pressure 2019-02-24 12:45:00 66 mm[Hg] [facility] Heart rate 2019-02-24 12:45:00 91 /min [facility] Oxygen saturation in Arterial blood by Pulse oximetry 02-24 12:45:00 97 /min [facility] r Respiratory rate 2019-02-24 11:15:00 19 /min [facility] Body height 2019-02-23 23:03:00 188 cm [facility] Body weight Measured 2019-02-23 23:03:00 185.975 kg [facility] BMI 2019-02-23 23:03:00 52.64 kg/m2 [facility] Systolic (mm Hg) 2019-01-11 22:27:00 Rocky rial [facility] Diastolic (mm Hg) 2019-01-11 22:27:00 Mem [facility] Temperature Oral (F) 2019-01-11 22:27:00 98.3 F [facility] Systolic (mm Hg) 2019-01-11 20:30:00 [place] [facility] [place] Diastolic (mm Hg) 2019-01-11 20:30:00 [facility] [place] Systolic (mm Hg) 2019-01-11 19:21:00 [place] [facility] [place] Diastolic (mm Hg) 2019-01-11 19:21:00 Mem [facility] Heart Rate 2019-01-11 19:21:00 [facility] Respitory Rate 2019-01-11 19:21:00 Memori [facility] Temperature Oral (F) 2019-01-11 19:21:00 98.4 F [facility] Height 2019-01-11 19:21:00 187.96 cm [facility] [place] BMI Calculated 2019-01-11 19:21:00 Memori al [facility] Weight 2019-01-11 19:21:00 [facility] Temperature Oral (F) 2018-11-11 16:18:00 98.1 F [facility] Heart Rate 2018-11-11 16:18:00 [facility] [place] Respitory Rate 2018-11-11 16:18:00 Memori [facility] Systolic (mm Hg) 2018-11-11 16:18:00 Rocky rial Artur Diastolic (mm Hg) 2018-11-11 16:18:00 Mem [facility] Temperature Oral (F) 2018-11-11 12:36:00 98.2 F [facility] Heart Rate 2018-11-11 12:36:00 [facility] [place] Respitory Rate 2018-11-11 12:36:00 Memori al [facility] Systolic (mm Hg) 2018-11-11 12:36:00 [place] [facility] [place] Diastolic (mm Hg) 2018-11-11 12:36:00 Mem [facility] Temperature Oral (F) 2018-11-11 08:49:00 98.1 F [facility] [place] Heart Rate 2018-11-11 08:49:00 [facility] [place] Respitory Rate 2018-11-11 08:49:00 Memori al [facility] Systolic (mm Hg) 2018-11-11 08:49:00 Rocky rial Artur Diastolic (mm Hg) 2018-11-11 08:49:00 Mem [facility] Height 2018-11-09 07:43:00 187.96 cm [facility] [place] Weight 2018-11-09 07:43:00 [facility] [place] BMI Calculated 2018-11-09 07:43:00 Memori al [facility] Systolic (mm Hg) 2018-09-29 17:08:00 [place] [facility] [place] Diastolic (mm Hg) 2018-09-29 17:08:00 Mem [facility] Heart Rate 2018-09-29 17:08:00 [facility] Temperature Oral (F) 2018-09-29 17:08:00 36.72 Rose [facility] [place] Respitory Rate 2018-09-29 17:08:00 Aric Morales Weight 2018-09-29 08:14:00 Robert [facility] Height 2018-09-28 21:55:00 188 cm Robert Siddiqui Systolic blood pressure 2018-09-24 22:15:00 98 mm[Hg] Eliel Yazidi Diastolic blood pressure 2018-09-24 22:15:00 51 mm[Hg] Julian Yazidi Heart rate 2018-09-24 22:15:00 99 /min Julian Yazidi Body temperature 2018-09-24 22:15:00 36.83 Rose [place] Respiratory rate 2018-09-24 22:15:00 22 /min [place] [facility] Oxygen saturation in Arterial blood by Pulse oximetry 09-24 22:15:00 95 /min Eliel Doshiist Body height 2018-09-24 19:32:00 188 cm Julian Yazidi Systolic (mm Hg) 2018-09-20 13:00:00 Rocky Siddiqui Diastolic (mm Hg) 2018-09-20 13:00:00 [facility] [place] Heart Rate 2018-09-20 13:00:00 [facility] [place] Temperature Oral (F) 2018-09-20 13:00:00 35.22 Rose [facility] Artur Respitory Rate 2018-09-20 13:00:00 Aric Morales Height 2018-09-20 05:48:00 188 cm Robert Siddiqui Weight 2018-09-20 05:43:00 [facility] Procedures Procedure Date / Time Performed Performing Clinician [facility] e ED ECG INTERPRETATION 2019-02-24 12:52:00 Justin Quinones [facility] TROPONIN I 2019-02-24 09:44:00 Justin Quinones [facility] CT BRAIN WITHOUT IV CONTRAST 2019-02-24 08:32:00 Justin Quinones [facility] BASIC METABOLIC PANEL (7) 2019-02-24 00:46:00 River Skaggs [facility] TROPONIN I 2019-02-24 00:46:00 River Skaggs [facility] CBC W/PLT COUNT & AUTO DIFFERENTIAL 2019-02-24 00:46:00 River Skaggs [facility] XR CHEST 1 VIEW PORTABLE/BEDSIDE 2019-02-23 23:47:00 Sudeep Skaggs Samir [facility] ECG 12-LEAD 2019-02-23 22:45:16 River Skaggs Samir [facility] VASCULAR DIAGRAM -SCAN 2019-01-14 15:50:48 Provider, Default Sca nning [facility] RHYTHM STRIP - SCAN 2019-01-07 11:40:54 Provider, Default Scanni ng [facility] REPORT OF PROCEDURE - ENDOSCOPY SCAN 2019-01-07 11:40:52 Pro vider, Default Scanning [facility] CARDIAC CATH REPORT - SCAN 2019-01-07 11:40:50 Provider, Default Scanning [facility] POCT-GLUCOSE METER 2019-01-06 12:06:00 Lara ChristelTom [facility] POCT-GLUCOSE METER 2019-01-06 07:08:00 Mann Loza [facility] BASIC METABOLIC PANEL (7) 2019-01-06 04:48:[address] [facility] POCT-GLUCOSE METER 2019-01-05 23:19:00 Mann Loza [facility] L CATH & PCI 2019-01-05 17:54:00 Momo Dougherty [facility] POCT-GLUCOSE METER 2019-01-05 16:40:00 Mann Loza [facility] APTT 2019-01-05 11:52:00 Moe Aceves [facility] POCT-GLUCOSE METER 2019-01-05 11:35:00 Mann Loza [facility] POCT-GLUCOSE METER 2019-01-05 07:13:00 Mann Loza [facility] BASIC METABOLIC PANEL (7) 2019-01-05 01:26:00 Marco A Aceves [facility] MAGNESIUM 2019-01-05 01:26:00 Moe Aceves [facility] CALCIUM, IONIZED 2019-01-05 01:26:00 Irvin Minor [facility] PHOSPHORUS 2019-01-05 01:26:00 [facility] 2019-01-05 01:26:00 Ketan [facility] CBC W/PLT COUNT & AUTO DIFFERENTIAL 2019-01-05 01:26:00 [facility] POCT-GLUCOSE METER 2019-01-04 21:02:00 [facility] AP[facility] 2019-01-04 18:08:00 Ketan [facility] POCT-GLUCOSE METER 2019-01-04 16:21:00 Radu [facility] POCT-GLUCOSE METER 2019-01-04 12:29:00 [facility] 2019-01-04 10:50:00 Ketan [facility] POCT-GLUCOSE METER 2019-01-04 07:31:00 [facility] BASIC METABOLIC PANEL (7) 2019-01-04 02:43:00 Marco A Aceves [facility] MAGNESIUM 2019-01-04 02:43:00 Ketan [facility] CALCIUM, IONIZED 2019-01-04 02:43:00 Irvin Minor [facility] PHOSPHORUS 2019-01-04 02:43:00 [facility] 2019-01-04 02:43:00 Ketan [facility] CBC W/PLT COUNT & AUTO DIFFERENTIAL 2019-01-04 02:43:00 Christiano zavala [facility] POCT-GLUCOSE METER 2019-01-03 22:11:00 [facility] AP[facility] 2019-01-03 19:54:00 Ketan [facility] POCT-GLUCOSE METER 2019-01-03 17:13:00 [facility] TROPONIN I 2019-01-03 13:29:00 [facility] APTT 2019-01-03 13:29:00 [facility] POCT-GLUCOSE METER 2019-01-03 13:25:00 Radu [facility] POCT-GLUCOSE METER 2019-01-03 07:47:00 [facility] ECG 12-LEAD 2019-01-03 06:58:16 Unknown, Hl7 Doctor [facility] CBC (HEMOGRAM ONLY) 2019-01-03 06:29:00 [facility] BASIC [facility]OLIC PANEL (7) 2019-01-03 04:44:00 Marco A Aceves [facility] MAGNESIUM 2019-01-03 04:44:00 [facility] TROPONIN I 2019-01-03 04:44:00 [facility] POCT-GLUCOSE METER 2019-01-03 03:06:00 [facility] APTT 2019-01-03 02:55:00 [facility] BASIC METABOLIC PANEL (7) 2019-01-02 21:48:00 River Skaggs [facility] B-TYPE NATRIURETIC FACTOR (BNP) 2019-01-02 21:48:00 River Skaggs [facility] TROPONIN I 2019-01-02 21:48:00 River Skaggs [facility] CBC W/PLT COUNT & AUTO DIFFERENTIAL 2019-01-02 21:48:00 River Skaggs [facility] XR CHEST 1 VIEW PORTABLE/BEDSIDE 2019-01-02 21:30:00 Sudeep Skaggs Samir [facility] ECG 12-LEAD 2019-01-02 20:51:03 Moe Aceves [facility] RHYTHM STRIP - SCAN 2019-01-01 10:34:40 Provider, Default Scanni abbey [facility] TRANSFUSION SERVICE REPORT - SCAN 2018-12-30 17:50:48 Provid er, Default Scanning [facility] REPORT OF PROCEDURE - ENDOSCOPY SCAN 2018-12-30 16:11:49 Pro vider, Default Scanning [facility] REPORT OF PROCEDURE - ENDOSCOPY SCAN 2018-12-30 12:50:39 Pro vider, Default Scanning [facility] POCT-GLUCOSE METER 2018-12-30 08:19:00 Merchant, [facility] POCT-GLUCOSE METER 2018-12-29 21:28:00 Merchant, [facility] POCT-GLUCOSE METER 2018-12-29 17:17:00 [facility] POCT-[facility]UCOSE METER 2018-12-29 12:47:00 Merchant, [facility] POCT-GLUCOSE METER 2018-12-29 07:51:00 Merchant, [facility] ABORH, MANUAL 2018-12-29 04:39:00 Muriel Jasmine [facility] TYPE AND SCREEN, AUTOMATED 2018-12-29 04:12:00 Ayala Choudhury [facility] POCT-GLUCOSE METER 2018-12-28 21:25:00 Merchant, [facility] POCT-GLUCOSE METER 2018-12-28 17:53:00 Maggie [facility] POCT-GLUCOSE METER 2018-12-28 14:05:00 Maggie [facility] POCT-GLUCOSE METER 2018-12-28 08:18:00 Maggie Damian [facility] MAGNESIUM 2018-12-28 04:40:00 [facility] PHOSPHORUS 2018-12-28 04:40:00 [facility] BASIC METABOLIC PANEL (7) 2018-12-28 04:40:00 [facility] CBC W/PLT COUNT & AUTO DIFFERENTIAL 2018-12-28 04:40:00 [facility] POCT-GLUCOSE METER 2018-12-27 21:24:00 Damian Zamora [facility] NM CARDIAC PET PERFUSION REST AND/OR STRESS 2018-12-27 13:35 :00 Saad Villanueva [facility] TREADMILL TOLERANCE(NON-NUCLEAR TREADMILL) 2018-12-27 13:30: 54 Unknown, Hl7 Doctor [facility] POCT-GLUCOSE METER 2018-12-27 08:55:00 Maggie [facility] POCT-GLUCOSE METER 2018-12-26 19:52:00 Maggie [facility] POCT-GLUCOSE METER 2018-12-26 16:41:00 Maggie [facility] TROPONIN I 2018-12-26 10:20:00 [facility] RAPID DRUG SCREEN, URINE 2018-12-26 06:57:[address] [facility] POCT-GLUCOSE METER 2018-12-26 05:56:00 [facility] TROPONIN I 2018-12-26 05:54:00 [facility] BASIC METABOLIC PANEL (7) 2018-12-26 05:54:00 [facility] HEPATIC FUNCTION PANEL 2018-12-26 05:54:[address] [facility] MAGNESIUM 2018-12-26 05:54:00 [facility] PHOSPHORUS 2018-12-26 05:54:00 [facility] CBC W/PLT COUNT & AUTO DIFFERENTIAL 2018-12-26 05:54:00 [facility] XR CHEST 1 VIEW PORTABLE/BEDSIDE 2018-12-25 20:02:00 [facility]ep [facility] BASIC METABOLIC PANEL (7) 2018-12-25 19:52:00 River Skaggs [facility] TROPONIN I 2018-12-25 19:52:00 River Skaggs Samir [facility] B-TYPE NATRIURETIC FACTOR (BNP) 2018-12-25 19:52:00 River Skaggs [facility] D-DIMER 2018-12-25 19:52:00 River Skaggs [facility] CBC W/PLT COUNT & AUTO DIFFERENTIAL 2018-12-25 19:52:00 River Skaggs [facility] ECG 12-LEAD 2018-12-25 19:45:34 River Skaggs Samir [facility] RHYTHM STRIP - SCAN 2018-12-23 12:43:47 Provider, Default [facility] Access Hospitalkarly [facility] POCT-GLUCOSE METER 2018-12-10 17:44:00 Jimmy [facility] RHYTHM STRIP - SCAN 2018-12-10 16:00:33 Provider, Default Scanni [facility] POCT-GLUCOSE METER 2018-12-10 11:29:00 Jimmy [facility] POCT-GLUCOSE METER 2018-12-09 23:26:00 Jimmy [facility] REPORT OF PROCEDURE - ENDOSCOPY SCAN 2018-12-09 15:50:49 Pro vider, Default Scanning [facility] CBC W/PLT COUNT & AUTO DIFFERENTIAL 2018-12-09 06:39:[address] [facility] POCT-GLUCOSE METER 2018-12-08 22:41:00 Kelly Marquez [facility] ECG 12-LEAD 2018-12-08 06:43:12 Unknown, Hl7 Doctor [facility] BASIC METABOLIC PANEL (7) 2018-12-08 04:48:00 [facility] MAGNESIUM 2018-12-08 04:48:00 [facility]OPONIN [facility] 2018-12-08 04:48:00 [facility] LIPID PANEL 2018-12-08 04:48:00 [facility] CBC W/PLT COUNT & AUTO DIFFERENTIAL 2018-12-08 04:48:00 [facility] POCT-GLUCOSE METER 2018-12-08 00:22:00 [facility] TROPONIN I 2018-12-08 00:20:00 [facility] ED ECG INTERPRETATION 2018-12-07 20:21:01 Singh Zaidi [facility] BASIC METABOLIC PANEL (7) 2018-12-07 20:01:00 Singh Zaidi [facility] TROPONIN I 2018-12-07 20:01:00 Singh Zaidi [facility] B-TYPE NATRIURETIC FACTOR (BNP) 2018-12-07 20:01:00 Linsey [facility]idi [facility] MAGN[facility]UM 2018-12-07 20:01:00 Singh Zaidi [facility] PT/APTT 2018-12-07 20:01:00 Singh Zaidi [facility] CBC W/PLT COUNT & AUTO DIFFERENTIAL 2018-12-07 20:01:00 Saritha Zaidi Rick [facility] XR CHEST 1 VIEW PORTABLE/BEDSIDE 2018-12-07 20:00:00 Shagufta Zaidi [facility] ECG 12-LEAD 2018-12-07 19:29:03 [facility] RHYTHM STRIP - SCAN 2018-12-03 11:31:28 Provider, Mina potter [facility] REPORT OF PROCEDURE - ENDOSCOPY SCAN 2018-12-02 13:50:26 Pro vider, Mina Scanning [facility] TROPONIN I 2018-12-01 10:17:00 Caroline Hall [facility] TROPONIN I 2018-12-01 04:19:00 Val Diaz [facility] HEMOGLOBIN A1C 2018-12-01 04:19:00 Val Diaz [facility] TSH/FREE T4 IF INDICATED 2018-12-01 04:19:00 Val Diaz Luis Armando [facility] BASIC METABOLIC PANEL (7) 2018-12-01 04:19:00 Val Diaz I [facility] CBC W/PLT COUNT & AUTO DIFFERENTIAL 2018-12-01 04:19:00 Val Bagley [facility] CREATININE, RANDOM URINE 2018-12-01 01:14:00 Val Diaz [facility] SODIUM, RANDOM URINE 2018-12-01 01:14:00 Val Diaz [facility] RAPID DRUG SCREEN, URINE 2018-12-01 01:14:00 Val Diaz [facility] US RENAL COMPLETE 2018-12-01 01:02:[address] [facility] XR SPINE LUMBAR COMPLETE MIN 4 VIEWS 2018-11-30 23:10:00 Emir Olivia [facility] XR HAND 3 VIEWS RIGHT 2018-11-30 23:09:00 Emir Corral [facility] XR WRIST RIGHT COMPLETE (MIN 3 VIEWS) 2018-11-30 23:09:00 Of Emir lr [facility] XR KNEE LEFT COMPLETE (4 VIEWS) 2018-11-30 23:09:00 Bairon Corral [facility] XR HAND 3 VIEWS LEFT 2018-11-30 23:08:00 Emir Corral [facility] XR CHEST PA OR AP 1 VIEW IN DEPT. 2018-11-30 23:05:00 Emir Colmenares Unique [facility] BASIC METABOLIC PANEL (7) 2018-11-30 22:23:00 Keshia Corral [facility] B-TYPE NATRIURETIC FACTOR (BNP) 2018-11-30 22:23:00 Bairon Corral [facility] PT/APTT 2018-11-30 22:23:00 Jus Corralpending sale to [facility] health[facility] TROPONIN I 2018-11-30 22:23:00 [facility] LIPID PANEL 2018-11-30 22:23:00 DiazVal [facility] MAGNESIUM 2018-11-30 22:23:00 Val Diaz [facility] CBC W/PLT COUNT & AUTO DIFFERENTIAL 2018-11-30 22:23:00 Felton estebanneeta [facility] ED ECG INTERPRETATION 2018-11-30 22:09:02 Hakeem Corraljosué Itz mirela [facility] ECG 12-LEAD 2018-11-30 21:38:42 [facility] angiography of chest 2018-10-23 00:00:00 ROBER ROLON [facility] ECHO ROUTINE W/DOPPLER COLOR 2018-09-29 20:44:13 Hawa Crook POCT GLUCOSE (AUTOMATED) 2018-09-29 19:29:00 Eliot Cardoza MAGNESIUM 2018-09-29 12:36:00 Hawa Crook [facility] XR CHEST 1 VW 2018-09-29 03:50:07 Bernarda Fleming [place] TROPONIN I 2018-09-29 03:28:00 Bernarda Fleming BASIC METABOLIC PANEL (NA, K, CL, CO2, GLUCOSE, BUN, C REATININE, CA) 2018-09-29 03:28:00 Bernarda Fleming CBC WITH DIFF 2018-09-29 03:28:00 Bernarda Fleming [facility] N-TERMINAL PRO-BNP 2018-09-29 03:28:00 Bernarda Flemingneeta [facility] PROTHROMBIN TIME / INR 2018-09-29 03:28:00 Aline Fleminga Cindy [facility] [place] D-DIMER 2018-09-29 03:28:00 Aline Fleminga Cindy [facility] [place] ACTIVATED PARTIAL THRMPLAS GIRISH 2018-09-29 03:28:00 Toby Ramirez tBernarda Cindy Robert [facility] EXTRA TUBE LAV 2018-09-29 03:28:00 Aline Fleminga Cindy [facility] [place] EKG-12 LEAD 2018-09-29 03:17:43 Bernarda Fleming [facility] HC COMPLETE BLD COUNT W/AUTO DIFF 2018-09-24 20:52:00 Danika Slade se COMPREHENSIVE METABOLIC PANEL 2018-09-24 20:52:00 Pepito Slade PROTHROMBIN TIME WITH INR 2018-09-24 20:52:00 Pepito Slade Yaz[facility] PARTIAL THROMBOPLASTIN TIME (PTT) 2018-09-24 20:52:00 Danika Slade se [facility] TROPONIN 2018-09-24 20:52:00 Pepito Slade on Y[facility] B NATRIURETIC PEPTIDE 2018-09-24 20:52:00 Pepito Slade [facility] ESTIMATED GFR 2018-09-24 20:52:00 Pepito Slade on [facility] XR CHEST 1 VW 2018-09-24 20:10:00 Pepito Slade on [facility] POC GLUCOSE 2018-09-24 19:35:00 Pepito Slade on [facility] ECG 12-LEAD 2018-09-24 19:32:49 Pepito Slade on [facility] ECG ED PRELIMINARY INTERPRETATION 2018-09-24 19:32:[address] THORAX WO CONTRAST 2018-09-20 08:28:59 Logan Quezada GALV/CLC ONLY - URINE DRUG (IMMUNOASSAY) - 4 ER PANEL 09-20 07:02:00 Logan Quezada HEPATIC FUNCTION PANEL (45876) (ALB,T.PRO,BILI T,BU/BC ,ALT,AST,ALK PHOS) 2018-09-20 06:03:00 DamienWashingtonip Robert [place] ETHANOL 2018-09-20 06:03:00 Damien Logan Robert Gan ermann EXTRA TUBE LT. BLUE 2018-09-20 06:03:00 Logan Quezada Alanori al Artur EXTERNAL PROVIDER RECORDS 2018-09-15 10:01:00 Doctor Unassigned, [place] [facility] Computed tomography of brain without radiopaque contrast 201 09-30-23 00:00:00 JAMES JONES [facility] Computed tomography of brain without radiopaque contrast 201 09-29-22 00:00:00 ORACIO STARR [facility] Computed tomography of chest with contrast 2018-02-09 00:00:00 ORACIO REYES [facility] Aortic aneurysm repair [facility] Back care<sup>1</sup> [facility] ermann Cholecystectomy [facility] IVC - Insertion of inferior vena caval filter [facility] Nephrectomy<sup>2</sup> [facility] Procedure on bone<sup>3</sup> [facility] Surgical procedure on cervical spine [facility] Plan of Care Planned Activity Planned Date Details Comments Source Future Scheduled Test 2019-11-19 00:00:00 IMM Influenza Seas onal Nov to April (>/= 19 yrs) [code = IMM Influenza Seasonal Nov to April (>/= 19 yrs)] [facility] Future Scheduled Test 2019-10-20 00:00:00 INFLUENZA VACCINE (Season Ended) [code = INFLUENZA VACCINE (Season Ended)] [place] [facility] Future Scheduled Test 2019-09-29 00:00:00 Plan of Care [code = 1877 6-5] [facility] Future Scheduled Test 2019-09-20 00:00:00 Plan of Care [code = 1877 6-5] [facility] Future Scheduled Test 2019-09-19 00:00:00 INFLUENZA VACCINE [code = INFLUENZA VACCINE] [facility] Future Scheduled Test 2019-09-05 00:00:00 Plan of Care [code = 1877 6-5] [facility] Future Scheduled Test 2019-07-15 00:00:00 Plan of Care [code = 1877 6-5] [facility] Scheduled Test 2019-06-02 00:00:00 HEMOGLOBIN A1C [co de = HEMOGLOBIN A1C] [facility] Scheduled Test 2019-01-14 00:00:00 Plan of Care [code = 1877 6-5] [facility] Scheduled Test 2018-10-19 00:00:00 Plan of Care [code = 1877 6-5] [facility] Scheduled Test 2018-09-29 00:00:00 EKG-12 LEAD ROUTINE [code = 4135] [facility] Scheduled Test 2018-09-20 00:00:00 Troponin I [code = 83347- 9] [facility] Scheduled Test 1989 00:00:00 Plan of Care [code = 1877 6-5] [facility] Scheduled Test 1988 00:00:00 Plan of Care [code = 1877 6-5] [facility] Scheduled Test 1980 00:00:00 Plan of Care [code = 1877 6-5] [facility] Scheduled Test 1976 00:00:00 PNEUMOCOCCAL VACCI NE 2-64 YEARS AT RISK (1 of 1 - PPSV23) [code = PNEUMOCOCCAL VACCINE 2-64 YEARS AT RISK (1 of 1 - PPSV23)] [facility] Scheduled Test 1976 00:00:00 Plan of Care [code = 1877 6-5] [facility] Encounters Start Date/Time End Date/Time Encounter Type Admission Type Attendi [facility] Care Department Encounter ID Source 2019-07-12 00:44:56 2019-07-12 05:07:00 Outpatient Amira Bunn [facility] [id number] 2019-07-12 00:44:00 2019-07-12 00:44:00 Emergency E [id number] 2019-07-10 13:10:47 2019-07-11 13:58:00 Outpatient Jonelle Hester Phi Franchesca [facility] [id number] 2019-07-10 15:59:00 2019-07-10 15:59:00 Outpatient E [id number] 2019-03-12 13:40:11 2019-03-13 08:02:00 Outpatient Luis Philip [facility] [id number] 2019-03-12 18:02:00 2019-03-12 18:02:00 Outpatient E [id number] 2019-01-11 13:13:03 2019-01-11 16:52:00 Outpatient Eric Romero [facility] [id number] 2019-01-11 13:13:00 2019-01-11 13:13:00 [id number] 2018-11-08 20:06:23 2018-11-11 17:18:00 Outpatient Magdaleno Staples [facility] [id number] 2018-11-08 21:04:00 2018-11-08 20:06:00 Inpatient E [facility] [id number] [facility] 2018-10-31 18:20:00 2018-10-31 23:00:00 Departed Emergency Room 1 KOTA DILL [facility] [id number] [facility] 2018-10-29 21:18:00 2018-10-29 23:38:00 Departed Emergency Room 1 HARMANAZAEL CHAVEZ [facility] [id number] [facility] 2018-10-22 18:41:00 2018-10-24 16:04:00 Discharged Inpatient (obs) 1 JARRET ALEXIS [facility] [id number] [facility] 2018-09-28 16:53:01 2018-09-29 18:04:00 [facility] [id number] 2018-09-28 16:53:01 2018-09-29 18:04:00 Emergency Bernarda Frank [place] [id number] 2018-09-19 19:56:16 2018-09-20 15:03:00 Emergency Z robin Loganjeremy Estradacorey, Samanthaeve [facility] [id number] 2018-09-15 00:00:00 2018-09-15 00:00:00 Orders Only D octor Unassigned, [place] [facility] [id number] 2018-05-29 00:03:00 2018-05-29 02:41:00 Departed Emergency Room 1 REED CURTIS [facility] [id number] [facility] 2018-04-24 13:35:46 2018-04-24 13:35:46 Outpatient [facility] [id number] [facility] 2018-04-10 12:50:00 2018-04-10 18:25:00 Departed Emergency Room 1 ORACIO STARR [facility] [id number] [facility] 2018-02-09 09:34:00 2018-02-13 19:45:00 Discharged Inpatient 1 DEXTER DILL [facility] [id number] [facility] 2018-01-02 00:47:00 2018-01-02 03:15:00 Departed Emergency Room 1 ORACIO STARR [facility] [id number] [facility] 2017-06-23 16:37:00 2017-06-23 23:07:00 Departed Emergency Room ER DEBRA CLOUD [facility] [id number] [facility] 2017-05-26 23:59:00 2017 17:38:00 Discharged Inpatient (obs) ER AZAEL HARMAN [facility] [id number] [facility] 2017-04-20 02:04:00 2017-04-21 16:13:00 Discharged Inpatient (obs) SARA NEGRO [facility] [id number] [facility] Results Test Description Test Time Test Comments Results Result Comments Source CARDIAC ENZYMES 2019-07-12 06:52:00 <0.02 [facility] [place] CHEM PANEL 2019-07-12 06:52:00 156 [facility] CHEM PANEL 2019-07-12 06:52:00 15 [facility] CHEM PANEL 2019-07-12 06:52:00 1.08 [facility] CHEM PANEL 2019-07-12 06:52:00 136 [facility] [place] CHEM PANEL 2019-07-12 06:52:00 3.6 [facility] CHEM PANEL 2019-07-12 06:52:00 102 [facility] [place] CHEM PANEL 2019-07-12 06:52:00 28 [facility] [place] CHEM PANEL 2019-07-12 06:52:00 9.2 [facility] CHEM PANEL 2019-07-12 06:52:00 7.4 [facility] [place] CHEM PANEL 2019-07-12 06:52:00 3.4 [facility] [place] CHEM PANEL 2019-07-12 06:52:00 35 [facility] CHEM PANEL 2019-07-12 06:52:00 25 [facility] CHEM PANEL 2019-07-12 06:52:00 104 [facility] CHEM PANEL 2019-07-12 06:52:00 0.5 [facility] [place] CHEM PANEL 2019-07-12 06:52:00 9.6 [facility] CHEM PANEL 2019-07-12 06:52:00 Test Item B/C Ratio (test code = B/C Ratio) 14 1 6-25 [facility] [employer] [id number] 06:52:004.0[facility] PANEL 2019-07-12 06:52:00* Test Item Value Reference Range Interpretation Comments A/G Ratio (test code = A/G Ratio) 0.8 1 0.7-1.6 [facility] [employer]CHEM [id number] 06:52:0080[facility] HermannCHEM PANEL 2019-07-12 06:52:001.5[facility] HermannCHEM [id number] 06:52:000.24[facility]orial HikzoeiIZSVKVNSVS8977-66-94 06:52:0010.0[facility]orial BdewsncNXVCMLDHKM1085-38-59 06:52:004.55Memorial RnllrurTTLKMOAYSV3579-09-14 06:52:0014.0[facility] Art[facility] VKIQHGYKNS8125-57-42 06:52:0040.6[facility]orial AiaxtefJTMRPLHXIO9810-95-92 06:52:00 89.3[facility]orial XfdgnslUSXSSWZWXP9283-06-24 06:52:00* Test Item Value Reference Range Interpretation Comments MCH (test code = MCH) 30.7 pg 27.0-31.0 Memorial SpmoqwySUZSJJWOHT6804-61-94 06:52:0034.4[facility] HermannHEMATOLOGY 2019-07-12 06:52:0014.3[facility] JlqibqpOSQNWRLBPG6157-27-17 06:52:25850Eqhzelra QlumftuUEAYYETVMS3494-76-55 06:52:007.9[facility]orial ErjzgwqYODHZPVZPM0907-62-27 06:52:0080.4[facility] OmwcxgsAMPKARWZMU3786-95-71 06:52:0012.2[facility] [place] UXHJZWTBKU6072-53-97 06:52:006.2[facility]orial YjwbrccTHAEFFBTUM0763-48-31 06:52:000.9 Memorial BsvixsnJTMQCNVSTT9777-58-35 06:52:000.3[facility] HermannHEMATOLOGY 2019-07-12 06:52:008.1[facility] VoqkvhyTHUZXQVVAC7495-36-28 06:52:001.2[facility]orial YfaydzdFLKGVEJPFM8367-27-24 06:52:000.6[facility]orial UetccjjEQBDSKAUCL1685-94-60 06:52:000.1[facility] HermannCHEM IKVEP1681-69-58 08:21:28984Ptzoodbs HermannCHEM CJSJA2979-94-55 08:21:0013[facility]annCHEM SAKFT0534-27-15 08:21:001.05 [facility]annCHEM LBKSX1991-47-13 08:21:46196Njcjdgfk HermannCHEM PANEL 2019-07-11 08:21:003.5[facility] HermannCHEM GQFGB6098-57-07 08:21:57623Anfcvdrg HermannCHEM JCYIR6902-09-52 08:21:0029[facility] HermannCHEM UCZAK0768-47-94 08:21:007.5[facility]annCHEM FGAJD4267-26-94 08:21:008.3[facility] HermannCHEM [id number] 08:21:00* Test Item Value Reference Range Interpretation Comments B/C Ratio (test code = B/C Ratio) 12 1 625 [facility]annCHEM [id number] 08:21:006.2[facility]M PANEL 2019-07-11 08:21:003.0[facility]annCHEM ZBBBL6200-47-03 08:21:003.2[facility]annCHEM WCJLE8895-02-73 08:21:00* Test Item Value Reference Range Interpretation Comments A/G Ratio (test code = A/G Ratio) 0.9 1 0.7-1.6 [facility] EVKQG5445-72-15 08:21:0029[facility]annCHEM PANEL 2019-07-11 08:21:0016[facility]annCHEM KIDHH2168-38-21 08:21:0076[facility]annCHEM DYSSJ6247-02-91 08:21:000.5[facility]annCHEM TQNMH1270-18-02 08:21:0083[facility] JlrzdetLCRIDFTRYE6639-12-26 08:21:0073.9[facility] TKGKWXPWFM7032-67-29 08:21:0016.8[facility] IqhlurxKCZJEREPNZ0107-82-21 08:21:00 7.4[facility] FbmclxePEQBHMLEEV3910-07-43 08:21:001.4[facility]annHEMATOLOGY 2019-07-11 08:21:000.5[facility] PvklzsiJQOZTBSFAA0557-50-55 08:21:004.1[facility] WllhwfuNJWDRNJKSD1182-43-17 08:21:000.9[facility] RylhzxdQLBAEGGNMY8859-98-35 08:21:000.4[facility] LmwfsbnSCLYKFJLWP0259-26-94 08:21:000.1[facility] KHLAZLMBJT2397-44-61 08:21:005.6[facility] SjixexeYTIKPFHVXE7546-70-91 08:21:00 4.22[facility] NoxekslYIROIWQWXJ6170-69-46 08:21:0013.0[facility]annHEMATOLOGY 2019-07-11 08:21:0038.1[facility] EfutzbpCESBBNHNCR6281-57-23 08:21:0090.2[facility] XiwatftWSZRMLNQAX5710-20-44 08:21:00* Test Item Value Reference Range Interpretation Comments MCH (test code = MCH) 30.8 pg 27.0-31.0 [facility] FmillllXXBMVHASIC3478-31-23 08:21:0034.1[facility]annHEMATOLOGY 2019-07-11 08:21:0014.2[facility] RuuagrpKENXUYLHRB0910-79-27 08:21:91168Jmyfpqyi BtarwbnTCZOOZONMC9220-97-55 08:21:007.8[facility]annCHEM VYMHU4177-20-94 22:11:000.12[facility] BjqjhefXRRLOI2028-51-45 22:11:07415Mgixjbfx HermannLIPIDS 2019-07-10 22:11:31418Akqmditd OjyftlqVPPZMZ5454-71-88 22:11:0032[facility] OjmvlwuLCDPJK7622-11-19 22:11:00* Test Item Value Reference Range Interpretation Comments CHD Risk (test code = CHD Risk) 6.12 1 4.00-7.30 [facility] UdffehrKJLXAQ4894-84-90 22:11:04079Uwkvchjw MunvhgdEXVVEW6074-55-81 22:11:00* Test Item Value Reference Range Interpretation Comments VLDL (test code = VLDL) 45 1 [facility]annSPECIAL ZIULEVZGE9714-87-01 22:11:006.2[facility] AND RBGSZ0872-88-89 22:11:00Yellow *NA*(5/22/20 5:11 PM)[facility] CGKPP8648-58-75 22:11:00Clear (07/10/19 5:11 PM)[facility] STOOL 2019-07-10 22:11:00* Test Item Value Reference Range Interpretation Comments UA Spec Grav (test code = UA Spec Grav) 1.030 1 [facility] SPSIX8630-97-90 22:11:00* Test Item Value Reference Range Interpretation Comments UA pH (test code = UA pH) 6.0 1 5.0-8.0 [facility] NGXUR9126-99-55 22:11:00Negative *NA*(07/10/19 5:11 PM) [facility] ERMBC3178-59-31 22:11:00Negative (07/10/19 5:11 PM) [facility] VBFJP6395-22-09 22:11:00Negative (07/10/19 5:11 PM) [facility] IKEEZ1177-04-49 22:11:00Negative (07/10/19 5:11 PM) [facility] TSTIC1909-51-24 22:11:00<1[facility] KRIRE8184-01-03 22:11:002[facility]annCARDIAC GUPAWHK0103-43-57 18:46:50467 [facility]annCARDIAC BPQUFZB7487-23-38 18:46:00<0.02[facility]annCHEM JQUKO5211-62-14 18:46:45812Ijyzofjg HermannCHEM DVKMS6311-96-54 18:46:0014 [facility]CHE[facility] REPQA1812-00-76 18:46:001.05[facility]annCHEM PANEL 2019-07-10 18:46:23137Pvoprlcm HermannCHEM ECNLX7485-32-78 18:46:003.6[facility]annCHEM OYQRW5165-21-28 18:46:43301Vznwopok HermannCHEM MXTTU0630-79-45 18:46:0026[facility]annCHEM YAEJG0648-40-95 18:46:008.9[facility]annCHEM TCGRV8613-98-91 18:46:0010.6[facility]annCHEM SHLTJ9148-39-11 18:46:0083 [facility] SydnwcaPGRPBKNLVV7290-34-58 18:46:0013.2[facility]annHEMATOLOGY 2019-07-10 18:46:004.67[facility] BbngjiqREBSZEDWDW6965-98-45 18:46:0014.3[facility] ZzzrvjeBNUQYXUVAH9137-70-79 18:46:0041.7[facility] ZxacnhmCREDMLNINH3963-33-17 18:46:0089.3[facility] BsfdtfuUDJWRDIPFQ8452-11-65 18:46:00* Test Item Value Reference Range Interpretation Comments MCH (test code = MCH) 30.7 pg 27.0-31.0 [facility] FhsxinqHDQVIDRTFB4072-10-91 18:46:0034.4[facility]annHEMATOLOGY 2019-07-10 18:46:0014.3[facility] ZejxaghBXWILIBCML3762-69-17 18:46:51887Myobyxda WwnhnmbFDPNNNVZRZ4900-70-50 18:46:007.9[facility] KcppdoeKYTMVPQBBQ1598-19-97 18:46:00* Test Item Value Reference Range Interpretation Comments PT (test code = PT) 13.4 s 12.0-14.7 [facility] NdoxphiRRPLUUAMRO5941-33-26 18:46:00* Test Item Value Reference Range Interpretation Comments INR (test code = INR) 1.02 1 0.85-1.17 [facility] PaffvhvTOUBAHPIWO3455-61-49 18:46:00* Test Item Value Reference Range Interpretation Comments PTT (test code = PTT) 31.6 s 22.9-35.8 [facility] LcqfhbyGRQFFHNQPQ4237-49-48 18:46:0086.2[facility]annHEMATOLOGY 2019-07-10 18:46:008.0[facility] XesficxTTUPQOZLRS5588-37-22 18:46:004.7[facility] AohnhepRCNVKLKIMU5739-74-06 18:46:000.8[facility] FskrpnxNRWTZJGHIJ6800-67-01 18:46:000.3[facility] LbfwaxqFTVMDAWICX8584-73-80 18:46:0011.3[facility] VKJLZWEYPJ6892-88-31 18:46:001.1[facility] WoohaiaNXAOEEDDOE4218-17-69 18:46:000.6 [facility] UhuuvinFXUMMEBWNZ2741-46-24 18:46:000.1[facility] HermannTOXICOLOGY 2019-07-10 18:46:000.2[facility] AND MPYXR3845-29-75 13:08:00Clear (03/13/19 7:08 AM)[facility] JSTGM2290-76-10 13:08:00* Test Item Value Reference Range Interpretation Comments UA Spec Grav (test code = UA Spec Grav) 1.022 1 [facility] ESHDN6574-31-86 13:08:00* Test Item Value Reference Range Interpretation Comments UA pH (test code = UA pH) 6.0 1 5.0-8.0 [facility] BPPUW1187-54-23 13:08:00Negative *NA*(03/13/19 7:08 AM) [facility] YTCDE4290-92-70 13:08:00Negative (03/13/19 7:08 AM) [facility] YUQIZ0524-38-05 13:08:00Negative (03/13/19 7:08 AM) [facility] TICRI7743-24-62 13:08:00Negative (03/13/19 7:08 AM) [facility] IIEVX3495-90-71 13:08:001[facility] FEFRE6195-79-02 13:08:00<1[facility] HermannCARDIAC CVJTBHC8970-63-62 10:55:00< 0.02[facility]annCARDIAC XNWVDNT1734-30-69 05:36:00<0.02[facility] BERQSB2862-33-65 05:36:96716Bvzgpoqt GagbbrgLCKSBL9130-38-47 05:36:88819Oztevbfj QyimxecOWKWRA4644-19-79 05:36:0024[facility] TcpwgiiBMMWXO5854-98-17 05:36:00* Test Item Value Reference Range Interpretation Comments CHD Risk (test code = CHD Risk) 5.46 1 4.00-7.30 [facility] OjalsuvXTAJZC2994-42-51 05:36:0062[facility] VmirbbwMDQDJO7629-54-76 05:36:00* Test Item Value Reference Range Interpretation Comments VLDL (test code = VLDL) 45 1 [facility]annSPECIAL ORFWCDSDV4672-79-94 05:36:006.7[facility]annCARDIAC OQJKJKU1430-88-59 20:05:69827Ikrummiu HermannCARDIAC TVNSIVO1450-73-79 20:05:00< 0.02[facility]annCHEM PQGNP1694-27-17 20:05:44702Fuzvfnqc HermannCHEM PANEL 2019-03-12 20:05:0011[facility]annCHEM PFURJ6923-96-98 20:05:001.04[facility]annCHEM ZJVWH4206-45-33 20:05:72448Iukuxatk HermannCHEM BDGKC8942-17-83 20:05:003.7[facility]annCHEM XHGIY7549-40-66 20:05:45108Zytwrftl HermannCHEM DSCRI5451-35-12 20:05:0026[facility]annCHEM CMQZO3982-18-09 20:05:009.5 [facility]annCHE[facility] OJTZY7748-59-75 20:05:006.9[facility]annCHEM PANEL 2019-03-12 20:05:003.7[facility]annCHEM CYFUE0414-73-58 20:05:0031[facility]annCHEM OYBMT6642-63-98 20:05:0016[facility]annCHEM CYKPR2791-03-77 20:05:0092[facility]annCHEM UBXEQ2715-40-49 20:05:000.3[facility]annCHEM BVNDI5184-34-95 20:05:008.7[facility]annCHEM ZVAUG1322-02-67 20:05:00* Test Item Value Reference Range Interpretation Comments B/C Ratio (test code = B/C Ratio) 11 1 6-25 [facility]annCHEM HGCSC5797-69-66 20:05:003.2[facility]annCHEM PANEL 2019-03-12 20:05:00* Test Item Value Reference Range Interpretation Comments A/G Ratio (test code = A/G Ratio) 1.2 1 0.7-1.6 [facility] HermannCHEM JIHLR5966-02-66 20:05:0084[facility]annHEMATOLOGY 2019-03-12 20:05:006.7[facility] YpzhsjbKPYPNCURUY7897-81-33 20:05:004.80[facility] RtrxfhjRSNANHCHQT1459-65-44 20:05:0014.6[facility] JvnvujbXWHBYEJHQR8777-35-77 20:05:0043.2[facility] LmswladZGJWJUZJXO0193-66-61 20:05:0090.0[facility] PISMNPNMNA0964-98-39 20:05:00* Test Item Value Reference Range Interpretation Comments MCH (test code = MCH) 30.5 pg 27.0-31.0 [facility] RpnalgeRTODGDDDDO3083-14-44 20:05:0033.9[facility]annHEMATOLOGY 2019-03-12 20:05:0014.9[facility] VlqzbprBDWECBKBNZ0240-05-75 20:05:50516Ujmjbuql TyacqmvTYLZMEYWCH0646-43-89 20:05:008.2[facility] BwrqkiqIFJPFOWEDV7695-82-69 20:05:00* Test Item Value Reference Range Interpretation Comments PTT (test code = PTT) 35.1 s 22.9-35.8 [facility] AyauubuLBRHYOVQBN3274-05-83 20:05:00* Test Item Value Reference Range Interpretation Comments PT (test code = PT) 15.0 s 12.0-14.7 [facility] YscnbqlYAZTOQRHAI2416-46-88 20:05:00* Test Item Value Reference Range Interpretation Comments INR (test code = INR) 1.17 1 0.85-1.17 [facility] XqhviblSEMUXVNKPX1601-75-50 20:05:0066.4[facility]annHEMATOLOGY 2019-03-12 20:05:0024.0[facility] GdazivhRGUFOAHMNF0415-81-79 20:05:006.8[facility] QhixeknDBQZWSRWTA0476-96-68 20:05:002.1[facility] BzdfoybJFMLADZOIQ1457-15-87 20:05:000.7[facility] HroxyrrQYCCPFPPLV3456-32-27 20:05:004.4[facility] HXZTKTUQRN7354-88-17 20:05:001.6[facility] XigyoktVECKXOEHWS1010-39-74 20:05:000.5 [facility] UwfrgcwPBEJJYQQVA4132-89-33 20:05:000.1[facility] HermannECG/EKG Lrufilnbyedaga0283-27-71 12:52:00DiJustin castillo MD 02/25/2019 11:33 AMECG/EKG InterpretationDate/Time: 02/23/2019 10:45 PMPerformed by: Justin Quinones MDAuthorized by: Justin Quinones MD The ECG was interpreted by ED physician. The ECG is interpreted as sinus rhythm. Heart rate is 90 BPM.ECG reviewed and does not meet STEMI criteria. Patient tolerance: Patient tolerated the procedure well with no immediate complicationsComments: NO ACUTE ISCHEMIC CHANGES [facility] I6762-38-03 11:46:00* Test Item Value Reference Range Interpretation Comments Troponin I (test code = 25455-7) <0.01 0-0.03 JOSE (test code = JOSE) Troponin I (TnI) levels must be interpreted in the context of the presenting symptoms and the clinical findings. Elevated TnI levels indicate myocardial damage, but are not specific for ischemic heart disease. Elevated TnI levels are seen in patients with other cardiac conditions (including myocarditis and congestive heart failure), and slight TnI elevations occur in patients with other conditions, including sepsis, renal failure, acidosis, acute neurological disease, and persistent tachyarrhythmia. Lab Interpretation (test code = 68414-2) Normal [facility] [id number] 11:46:00* Test Item Value Reference Range Interpretation Comments TROPONIN I (BEAKER) (test code = 397) < ng/mL 0.00-0.03 Troponin I (TnI) levels must be interpreted in the context of the presenting sym ptoms and the clinical findings. Elevated TnI levels indicate myocardial damage, but are not specific for ischemic heart disease. Elevated TnI levels are seen in patients with other cardiac conditions (including myocarditis and congestive h eart failure), and slight TnI elevations occur in patients with other conditions , including sepsis, renal failure, acidosis, acute neurological disease, and per sistent tachyarrhythmia.CT, BRAIN, WITHOUT TCFCWPMI2014-04-04 08:57:00Reason for exam:->LEFT LEG NUMBNESS What is the patient's sedation requirement?->No SedationFINAL REPORT CT, BRAIN, WITHOUT CONTRAST CLINICAL INDICATION: LEFT LEG NUMBNESSLEFT LEG NUMBNESS COMPARISON: None TECHNIQUE: Noncontrast axial CT imaging of the brain and skull. DOSE REDUCTION: Dose modulation, iterative reconstruction, and/or weight-based adjustment of the mA/kV was utilized to reduce the radiation dose to as low as reasonably achievable. FINDINGS:No intracranial hemorrhage, midline shift or mass effect. Midline structures are normally developed. Mild chronic microvascular ischemic changes of the periventricular and subcortical white matter are present. No hydrocephalus. Orbits are within normal limits. No obstructive paranasal sinus disease. IMPRESSION: No acute intracranial findings If there is persistent clinical concern for intracranial pathology, MR examination is recommended for further characterization. Signed: Virgilio Olguineport Verified Date/Time: 02/24/2019 08:57:26 Reading Location: [facility] Radiology Reading Room brain without IV kqalltsw5617-54-65 08:57:00Interface, External Ris In - 02/24/2019 8:[address], BRAIN, WITHOUT CONTRAST CLINICAL INDICATION: LEFT LEG NUMBNESSLEFT LEG NUMBNESS COMPARISON: None TECHNIQUE: Noncontrast axial CT imaging of the brain and skull. DOSE REDUCTION: Dose modulation, iterative reconstruction, and/or weight-based adjustment of the mA/kV was utilized to reduce the radiation dose to as low as reasonably achievable. FINDINGS:No intracranial hemorrhage, midline shift or mass effect. Midline structures are normally developed. Mild chronic microvascular ischemic changes of the periventricular and subcortical white devante er are present. No hydrocephalus. Orbits are within normal limits. No obstructiv e paranasal sinus disease. IMPRESSION: No acute intracranial findings If there is persistent clinical concern for intracranial pathology, MR examination is rec ommended for further characterization. Signed: Virgilio Olguineport Verified Date/Time: 02/24/2019 08:57:26 Reading [facility] mdhe9667-34-53 07:00:25Interface, External Ris In - 02/24/2019 7:00 AM CSTVentricular Rate 90 BPMAtrial Rate 90 BPMP-R Interval 164 msQRS Duration 92 msQ-T Interval 402 msQTC Calcula tion(Bazett) 491 msP [place] 57 degreesR [place] 13 degreesT [place] 45 degreesNormal sin us rhythmProlonged QTAbnormal ECGWhen compared with ECG of 03-JAN-2019 06:58,No significant change was foundConfirmed by MD NAHEED, ROSE ([id number]) on 02/24/2019 7:00:21 [facility] [id number] 01:33:00* Test Item Value Reference Range Interpretation Comments TROPONIN I (BEAKER) (test code = 397) < ng/mL 0.00-0.03 Troponin I (TnI) levels must be interpreted in the context of the presenting sym ptoms and the clinical findings. Elevated TnI levels indicate myocardial damage, but are not specific for ischemic heart disease. Elevated TnI levels are seen in patients with other cardiac conditions (including myocarditis and congestive h eart failure), and slight TnI elevations occur in patients with other conditions , including sepsis, renal failure, acidosis, acute neurological disease, and per sistent tachyarrhythmia.Basic Metabolic Xvyds1858-32-21 01:26:00* Test Item Value Reference Range Interpretation Comments Sodium (test code = 2951-2) 137 meq/L 136-145 Potassium (test code = 2823-3) 3.9 meq/L 3.5-5.1 Chloride (test code = 2075-0) 105 meq/L 98-107 CO2 (test code = 8-9) 23 meq/L 22-29 BUN (test code = 3094-0) 10 mg/dL 7-21 Creatinine (test code = 2160-0) 0.93 mg/dL 0.57-1.25 Glucose (test code = 2345-7) 115 mg/dL 70-105 H Calcium (test code = 54095-7) 9.2 mg/dL 8.4-10.2 EGFR (test code = 58125-3) 87 mL/min/1.73 sq m ESTIMATED GFR IS NOT ACCURATE CREATININE CLEARANCE IN PREDICTING GLOMERULAR FILTRATION RATE. ESTIMATED GFR IS NOT APPLICABLE FOR DIALYSIS PATIENTS. Lab Interpretation (test code = 64581-6) Abnormal [facility] METABOLIC [id number] 01:26:00* Test Item Value Reference Range Interpretation Comments SODIUM (BEAKER) (test code = 381) 137 meq/L 136-145 POTASSIUM (BEAKER) (test code = 379) 3.9 meq/L 3.5-5.1 CHLORIDE (BEAKER) (test code = 382) 105 meq/L 98-107 CO2 (BEAKER) (test code = 355) 23 meq/L 22-29 BLOOD UREA NITROGEN (BEAKER) (test code = 354) 10 mg/dL 7-21 CREATININE (BEAKER) (test code = 358) 0.93 mg/dL 0.57-1.25 GLUCOSE RANDOM (BEAKER) (test code = 652) 115 mg/dL 70-105 H CALCIUM (BEAKER) (test code = 697) 9.2 mg/dL 8.4-10.2 EGFR (BEAKER) (test code = 1092) 87 mL/min/1.73 sq m ESTIMATED GFR IS NOT ACCURATE CREATININE CLEARANCE IN PREDICTING GLOMERULAR FILTRATION RATE. ESTIMATED GFR IS NOT APPLICABLE FOR DIALYSIS PATIENTS. CBC with platelet count + automated [id number] 00:59:00* Test Item Value Reference Range Interpretation Comments WBC (test code = 6690-2) 8.0 3.5- 10.5 K/L RBC (test code = 789-8) 4.67 4.63- 6.08 M/L MCHC (test code = 786-4) 33.1 32.3- 36.5 GM/DL Hematocrit (test code = 4544-3) 42.9 % 40.1-51 MCV (test code = 787-2) 91.9 fL 79-92.2 MCH (test code = 785-6) 30.4 pg 25.7-32.2 RDW (test code = 788-0) 14.2 % 11.6-14.4 Platelets (test code = 777-3) 220 150- 450 K/CU MM MPV (test code = 70701-3) 9.8 fL 9.4-12.4 nRBC (test code = 413) 0 0- 0 /100 WBC % Neutros (test code = 429) 66 % % Lymphs (test code = 430) 22 % % Monos (test code = 431) 9 % % Eos (test code = 432) 2 % % Baso (test code = 437) 1 % # Neutros (test code = 670) 5.28 1.78- 5.38 K/L # Lymphs (test code = 414) 1.78 1.32- 3.57 K/L # Monos (test code = 415) 0.71 0.30- 0.82 K/L # Eos (test code = 416) 0.14 0.04- 0.54 K/L # Baso (test code = 417) 0.04 0.01- 0.08 K/L Immature Granulocytes-Relative (test code = 2801) 0 % 0-1 [facility] W/PLT COUNT & AUTO STBRTMNNZGAL3232-95-28 00:59:00* Test Item Value Reference Range Interpretation Comments WHITE BLOOD CELL COUNT (BEAKER) (test code = 775) 8.0 K/ L 3.5- 10.5 RED BLOOD CELL COUNT (BEAKER) (test code = 761) 4.67 M/ L 4.63-6 .08 HEMOGLOBIN (BEAKER) (test code = 410) 14.2 GM/DL 13.7-17.5 HEMATOCRIT (BEAKER) (test code = 411) 42.9 % 40.1-51.0 MEAN CORPUSCULAR VOLUME (BEAKER) (test code = 753) 91.9 fL 79. 0-92.2 MEAN CORPUSCULAR HEMOGLOBIN (BEAKER) (test code = 751) 30.4 pg 25.7-32.2 MEAN CORPUSCULAR HEMOGLOBIN CONC (BEAKER) (test code = 752) 33.1 GM/DL 32.3-36.5 RED CELL DISTRIBUTION WIDTH (BEAKER) (test code = 412) 14.2 % 11.6-14.4 PLATELET COUNT (BEAKER) (test code = 756) 220 K/CU MM 150-450 MEAN PLATELET VOLUME (BEAKER) (test code = 754) 9.8 fL 9.4-12 .4 NUCLEATED RED BLOOD CELLS (BEAKER) (test code = 413) 0 /100 WBC 0 -0 NEUTROPHILS RELATIVE PERCENT (BEAKER) (test code = 429) 66 % LYMPHOCYTES RELATIVE PERCENT (BEAKER) (test code = 430) 22 % MONOCYTES RELATIVE PERCENT (BEAKER) (test code = 431) 9 % EOSINOPHILS RELATIVE PERCENT (BEAKER) (test code = 432) 2 % BASOPHILS RELATIVE PERCENT (BEAKER) (test code = 437) 1 % NEUTROPHILS ABSOLUTE COUNT (BEAKER) (test code = 670) 5.28 K/ L 1.78-5.38 LYMPHOCYTES ABSOLUTE COUNT (BEAKER) (test code = 414) 1.78 K/ L 1.32-3.57 MONOCYTES ABSOLUTE COUNT (BEAKER) (test code = 415) 0.71 K/ L 0. 30-0.82 EOSINOPHILS ABSOLUTE COUNT (BEAKER) (test code = 416) 0.14 K/ L 0.04-0.54 BASOPHILS ABSOLUTE COUNT (BEAKER) (test code = 417) 0.04 K/ L 0. 01-0.08 IMMATURE GRANULOCYTES-RELATIVE PERCENT (BEAKER) (test code = 2801) 0 % 0-1 RAD, CHEST, 1 VIEW, NON [id number] 00:02:00Reason for exam:->CHEST PAINShould this be performed at the bedside?->YesFINAL REPORT RAD, CHEST, 1 VIEW, NON DEPT [...] osseous structures appear intact. Signed: Jez Aguilar MDReport Verified Date/Time: 02/24/2019 00:02:07 chest 1 view portable / [id number] 00:02:00Interface, External Ris In - 02/24/2019 12:04 AM CSTFINAL REPORT RAD, CHEST, 1 VIEW, NON DEPT [...] osseous structures appear intact. Signed: Jez Aguilar MDReport Verified Date/Time: 02/24/2019 00:02:07 [facility](Non-Nuclear Treadmill)2019-01-19 11:31:22Interface, External Ris In - 01/19/2019 11:31 AM CSTProtocol Name Regadenoson Time In Exercise Phase 00:01:00 Max. Systolic BP 122 mmHgMax Diastolic BP 43 mmHgMax Heart Rate 96 BPMMax Predicted Heart Rate 172 BPMReason For Termination Predetermined end point Reason for Test Chest Pain Target HR Formula (220 - Age)*100% Arrhythmias none Resting ECG Normal sinus rhythm ST Changes No Significant Changes Overall Impression Indeterminate due to pharmacological stress Chest Pain CHEST TIGHTNESS HR Response To Exercise BP Response To Exercise ASALIPITORplavixLASIXImdurmetoprololNITROXareltoConfirmed by fellow Ace Ojeda ([id number]) on 12/29/2018 10:07:26 AMConfirmed by MD BRAVO JORGE ([id number]) on 01/19/2019 11:31:16 [facility] Hmsyfth2026-99-21 11:43:54* Test Item Value Reference Range Interpretation Comments Glucose POC (test code = Glucose POC) 201 mg/dL 70-115 H Notify RN or MDIf you consider your patient critically ill, the Desirae-Accu Check Infrom II meter should not be used for Glucose determination. Draw a venous Glucose and send to the main Lab for analysis. POC Lascvjt7746-45-75 08:00:51* Test Item Value Reference Range Interpretation Comments Glucose POC (test code = Glucose POC) 229 mg/dL 70-115 H Notify RN or MDIf you consider your patient critically ill, the Desirae-Accu Check Infrom II meter should not be used for Glucose determination. Draw a venous Glucose and send to the main Lab for analysis. Lipid Nsfan3727-14-62 06:54:30* Test Item Value Reference Range Interpretation Comments Cholesterol Total (test code = Cholesterol Total) 129 mg/dL 0-20 0 RISK OF HEART DISEASEPublished by [place] Heart Association Analyte Optimal Borderline Increased RiskCHOL <200 200-239 >240TRIG <150 150-199 >200HDL Male >60 <40HDL Female >60 <50LDL <100 130-159 >160LDL Near optimal is 100-129 Triglycerides (test code = Triglycerides) 356 mg/dL 9-200 H HDL (test code = HDL) 19 mg/dL 40-60 L LDL (test code = LDL) 39 mg/dL 0-130 The eq uation being used in this calculation is LDL = (Chol - HDL) - (Trig / 5) VLDL (test code = VLDL) 71 mg/dL 5-40 H The equation being used in this calculation is VLDL = Trig / 5 Chol/HDL (test code = Chol/HDL) 6.8 ratio 0.0-5.0 H LDL/HDL Ratio (test code = LDL/HDL Ratio) 2 N The equation being used in this calculation is LDL/HDL Ratio=LDL Calc/HDL Chol Hemoglobin [id number] 06:50:45* Test Item Value Reference Range Interpretation Comments Hemoglobin A1c (test code = Hemoglobin A1c) 7.7 % 4.8-5.9 H Non Diabetic 4.8- 5.9%Diabetic <7.0% Thyroid Stimulating [id number] 06:50:45* Test Item Value Reference Range Interpretation Comments TSH (test code = TSH) 0.854 mIU/mL 0.270-4.200 Troponin [id number] 06:50:45* Test Item Value Reference Range Interpretation Comments Troponin-T (test code = Troponin-T) 13.860 ng/L 0.000-22.000 The CV of the assay at 99th percentile for both male and female patient population is < 10%. A rise and fall in JOSÉ with at least one value above the 99th percentile with clinical evidence of myocardial ischemia would support a diagnosis of AMI. A delta of at least 20% is recommended to assess acute changes in results above the 99th percentile in serial measurements. Stable JOSÉ levels (<20%) delta above the 99th percentile URL would support a diagnosis of chronic myocardial injury. Urinalysis [id number] 02:14:12* Test Item Value Reference Range Interpretation Comments UA WBC (test code = UA WBC) 0-5 0-5 UA RBC (test code = UA RBC) None Seen 0-5 UA Bacteria (test code = UA Bacteria) Few A UA Squam Epithelial (test code = UA Squam Epithelial) 0-5 Troponin [id number] 02:13:54* Test Item Value Reference Range Interpretation Comments Troponin-T (test code = Troponin-T) 12.360 ng/L 0.000-22.000 The CV of the assay at 99th percentile for both male and female patient population is < 10%. A rise and fall in JOSÉ with at least one value above the 99th percentile with clinical evidence of myocardial ischemia would support a diagnosis of AMI. A delta of at least 20% is recommended to assess acute changes in results above the 99th percentile in serial measurements. Stable JOSÉ levels (<20%) delta above the 99th percentile URL would support a diagnosis of chronic myocardial injury. Urinalysis with Microscopic if [id number] 02:11:04* Test Item Value Reference Range Interpretation Comments UA Color (test code = UA Color) YELLO Yellow UA Appear (test code = UA Appear) CLEAR Clear UA pH (test code = UA pH) 6.5 UA Spec Grav (test code = UA Spec Grav) 1.028 1.001-1.035 UA Glucose (test code = UA Glucose) 1000 mg/dL Negative A UA Ketones (test code = UA Ketones) NEG Negative UA Blood (test code = UA Blood) NEG Negative UA Protein (test code = UA Protein) NEG Negative UA Bili (test code = UA Bili) NEG Negative UA Urobilinogen (test code = UA Urobilinogen) .2 mg/dL >0.2 UA Nitrite (test code = UA Nitrite) NEG Negative UA Leuk Est (test code = UA Leuk Est) 25 cells/mcL Negative A UA Micro Ind? (test code = UA Micro Ind?) Indicated Not Indicate d A Urine Drug [id number] 02:07:41* Test Item Value Reference Range Interpretation Comments Amphetamine Screen Ur (test code = Amphetamine Screen Ur) Negative Negative Barbiturate Screen Ur (test code = Barbiturate Screen Ur) Negative Negative Benzodiazepines Ur (test code = Benzodiazepines Ur) POSITIVE Ne gative A Cocaine Screen Ur (test code = Cocaine Screen Ur) Negative Nega tive U Methadone Scr (test code = U Methadone Scr) POSITIVE Negative A Opiate Screen Ur (test code = Opiate Screen Ur) POSITIVE Negati ve A U PCP Scrn (test code = U PCP Scrn) Negative Negative Cannabinoid Screen Ur (test code = Cannabinoid Screen Ur) Negative Negative U TCA (test code = U TCA) POSITIVE Negative A Th e results of all drug screen tests are only preliminary. Clinical consideration and professional judgment should be applied to any drug of abuse test result, particularly when preliminary positive results are obtained. Please order a separate confirmatory test if desired. Comprehensive Metabolic [id number] 22:40:04* Test Item Value Reference Range Interpretation Comments Sodium Level (test code = Sodium Level) 137.0 mmol/L 135.0-145.0 Potassium Level (test code = Potassium Level) 3.5 mmol/L 3.5-5.1 Chloride Level (test code = Chloride Level) 99 mmol/L 98-105 CO2 (test code = CO2) 22 mmol/L 22-29 Anion Gap (test code = Anion Gap) 16 mmol/L 7-16 BUN (test code = BUN) 12.70 mg/dL 6.00-20.00 Creatinine Level (test code = Creatinine Level) 1.10 mg/dL 0.70-1 .20 BUN/Creat Ratio (test code = BUN/Creat Ratio) 12 N Glucose Level (test code = Glucose Level) 177 mg/dL 70-115 H Calcium Level (test code = Calcium Level) 8.1 mg/dL 8.3-10.5 L Alk Phos (test code = Alk Phos) 79 U/L 40-129 Bilirubin Total (test code = Bilirubin Total) 0.4 mg/dL 0.1-0.9 Albumin Level (test code = Albumin Level) 3.3 g/dL 3.5-5.2 L Protein Total (test code = Protein Total) 5.6 g/dL 6.4-8.3 L ALT (test code = ALT) 35 U/L 1-41 AST (test code = AST) see comment U/L 1-40 N ast =30Specimen hemolyzed. Globulin (test code = Globulin) 2.3 g/dL 2.9-3.1 L A/G Ratio (test code = A/G Ratio) 1.4 ratio N eGFR AA (test code = eGFR AA) >60 mL/min/1.73 m2 N eGFR (estimated Glomerular Filtration Rate) is an estimated value, calculated from the patient's serum creatinine using the MDRD equation. It is NOT the patient's actual GFR. The eGFR provides a more clinically useful measure of kidney disease than serum creatinine alone.This calculation takes sex and race into account, if the information is provided. If the race is not provided, and the patient is -Fijian, multiply by 1.212. If sex is not provided, and the patient is female, multiply by 0.742. Results for patients <18 years of age have not been validated by the MDRD study and should be interpreted with caution. eGFR Result Interpretation:eGFR > or = 60 is in the Normal RangeeGFR < 60 may mean kidney diseaseeGFR < 15 may mean kidney failure Ranges recommended by the National Kidney Foundation, http://nkdep.nih.gov Comprehensive Metabolic [id number] 22:40:04* Test Item Value Reference Range Interpretation Comments Sodium Level (test code = Sodium Level) 137.0 mmol/L 135.0-145.0 Potassium Level (test code = Potassium Level) 3.5 mmol/L 3.5-5.1 Chloride Level (test code = Chloride Level) 99 mmol/L 98-105 CO2 (test code = CO2) 22 mmol/L 22-29 Anion Gap (test code = Anion Gap) 16 mmol/L 7-16 BUN (test code = BUN) 12.70 mg/dL 6.00-20.00 Creatinine Level (test code = Creatinine Level) 1.10 mg/dL 0.70-1 .20 BUN/Creat Ratio (test code = BUN/Creat Ratio) 12 N Glucose Level (test code = Glucose Level) 177 mg/dL 70-115 H Calcium Level (test code = Calcium Level) 8.1 mg/dL 8.3-10.5 L Alk Phos (test code = Alk Phos) 79 U/L 40-129 Bilirubin Total (test code = Bilirubin Total) 0.4 mg/dL 0.1-0.9 Albumin Level (test code = Albumin Level) 3.3 g/dL 3.5-5.2 L Protein Total (test code = Protein Total) 5.6 g/dL 6.4-8.3 L ALT (test code = ALT) 35 U/L 1-41 AST (test code = AST) see comment U/L 1-40 N ast =30Specimen hemolyzed. Globulin (test code = Globulin) 2.3 g/dL 2.9-3.1 L A/G Ratio (test code = A/G Ratio) 1.4 ratio N eGFR AA (test code = eGFR AA) >60 mL/min/1.73 m2 N eGFR (estimated Glomerular Filtration Rate) is an estimated value, calculated from the patient's serum creatinine using the MDRD equation. It is NOT the patient's actual GFR. The eGFR provides a more clinically useful measure of kidney disease than serum creatinine alone.This calculation takes sex and race into account, if the information is provided. If the race is not provided, and the patient is -Fijian, multiply by 1.212. If sex is not provided, and the patient is female, multiply by 0.742. Results for patients <18 years of age have not been validated by the MDRD study and should be interpreted with caution. eGFR Result Interpretation:eGFR > or = 60 is in the Normal RangeeGFR < 60 may mean kidney diseaseeGFR < 15 may mean kidney failure Ranges recommended by the National Kidney Foundation, http://nkdep.nih.gov eGFR Non-AA (test code = eGFR Non-AA) >60.00 mL/min/1.73 m2 N eGFR (estimated Glomerular Filtration Rate) is an estimated value, calculated from the patient's serum creatinine using the MDRD equation. It is NOT the patient's actual GFR. The eGFR provides a more clinically useful measure of kidney disease than serum creatinine alone.This calculation takes sex and race into account, if the information is provided. If the race is not provided, and the patient is -Fijian, multiply by 1.212. If sex is not provided, and the patient is female, multiply by 0.742. Results for patients <18 years of age have not been validated by the MDRD study and should be interpreted with caution. eGFR Result Interpretation:eGFR > or = 60 is in the Normal RangeeGFR < 60 may mean kidney diseaseeGFR < 15 may mean kidney failure Ranges recommended by the National Kidney Foundation, http://nkdep.nih.gov Creatine [id number] 22:40:04* Test Item Value Reference Range Interpretation Comments CK (test code = CK) 104 U/L 39-308 Lipase [id number] 22:40:04* Test Item Value Reference Range Interpretation Comments Lipase Level (test code = Lipase Level) 22 U/L 13-60 Pro B Natriuretic [id number] 22:40:04* Test Item Value Reference Range Interpretation Comments NT-proBNP (test code = NT-proBNP) 47 pg/mL 0-124 Comprehensive Metabolic [id number] 22:40:04* Test Item Value Reference Range Interpretation Comments Sodium Level (test code = Sodium Level) 137.0 mmol/L 135.0-145.0 Potassium Level (test code = Potassium Level) 3.5 mmol/L 3.5-5.1 Chloride Level (test code = Chloride Level) 99 mmol/L 98-105 CO2 (test code = CO2) 22 mmol/L 22-29 Anion Gap (test code = Anion Gap) 16 mmol/L 7-16 BUN (test code = BUN) 12.70 mg/dL 6.00-20.00 Creatinine Level (test code = Creatinine Level) 1.10 mg/dL 0.70-1 .20 BUN/Creat Ratio (test code = BUN/Creat Ratio) 12 N Glucose Level (test code = Glucose Level) 177 mg/dL 70-115 H Calcium Level (test code = Calcium Level) 8.1 mg/dL 8.3-10.5 L Alk Phos (test code = Alk Phos) 79 U/L 40-129 Bilirubin Total (test code = Bilirubin Total) 0.4 mg/dL 0.1-0.9 Albumin Level (test code = Albumin Level) 3.3 g/dL 3.5-5.2 L Protein Total (test code = Protein Total) 5.6 g/dL 6.4-8.3 L ALT (test code = ALT) 35 U/L 1-41 AST (test code = AST) see comment U/L 1-40 N ast =30Specimen hemolyzed. Globulin (test code = Globulin) 2.3 g/dL 2.9-3.1 L A/G Ratio (test code = A/G Ratio) 1.4 ratio N eGFR AA (test code = eGFR AA) >60 mL/min/1.73 m2 N eGFR (estimated Glomerular Filtration Rate) is an estimated value, calculated from the patient's serum creatinine using the MDRD equation. It is NOT the patient's actual GFR. The eGFR provides a more clinically useful measure of kidney disease than serum creatinine alone.This calculation takes sex and race into account, if the information is provided. If the race is not provided, and the patient is -Fijian, multiply by 1.212. If sex is not provided, and the patient is female, multiply by 0.742. Results for patients <18 years of age have not been validated by the MDRD study and should be interpreted with caution. eGFR Result Interpretation:eGFR > or = 60 is in the Normal RangeeGFR < 60 may mean kidney diseaseeGFR < 15 may mean kidney failure Ranges recommended by the National Kidney Foundation, http://nkdep.nih.gov eGFR Non-AA (test code = eGFR Non-AA) >60.00 mL/min/1.73 m2 N eGFR (estimated Glomerular Filtration Rate) is an estimated value, calculated from the patient's serum creatinine using the MDRD equation. It is NOT the patient's actual GFR. The eGFR provides a more clinically useful measure of kidney disease than serum creatinine alone.This calculation takes sex and race into account, if the information is provided. If the race is not provided, and the patient is -Fijian, multiply by 1.212. If sex is not provided, and the patient is female, multiply by 0.742. Results for patients <18 years of age have not been validated by the MDRD study and should be interpreted with caution. eGFR Result Interpretation:eGFR > or = 60 is in the Normal RangeeGFR < 60 may mean kidney diseaseeGFR < 15 may mean kidney failure Ranges recommended by the National Kidney Foundation, http://nkdep.nih.gov Troponin [id number] 22:40:04* Test Item Value Reference Range Interpretation Comments Troponin-T (test code = Troponin-T) 11.400 ng/L 0.000-22.000 The CV of the assay at 99th percentile for both male and female patient population is < 10%. A rise and fall in JOSÉ with at least one value above the 99th percentile with clinical evidence of myocardial ischemia would support a diagnosis of AMI. A delta of at least 20% is recommended to assess acute changes in results above the 99th percentile in serial measurements. Stable JOSÉ levels (<20%) delta above the 99th percentile URL would support a diagnosis of chronic myocardial injury. Prothrombin Time and [id number] 21:42:53* Test Item Value Reference Range Interpretation Comments Prothrombin Time (test code = Prothrombin Time) 12.6 seconds 9.8-13 .4 INR (test code = INR) 1.1 ratio 0.6-1.2 Partial Thromboplastin [id number] 21:42:53* Test Item Value Reference Range Interpretation Comments Partial Thromboplastin Time (test code = Partial Throm boplastin Time) 34.10 seconds 24.39-37.25 Complete Blood Count with Qhoaalxirdvm3726-70-08 21:34:23* Test Item Value Reference Range Interpretation Comments WBC (test code = WBC) 7.4 x10 4.4-10.5 RBC (test code = RBC) 4.42 x10 4.10-5.70 Hgb (test code = Hgb) 13.6 g/dL 13.4-17.4 Hct (test code = Hct) 38.8 % 38.7-52.0 MCV (test code = MCV) 87.80 fL 80.00-100.00 MCHC (test code = MCHC) 35.10 g/dL 32.00-37.50 MCH (test code = MCH) 30.8 pg 27.0-32.5 RDW CV (test code = RDW CV) 14.2 % 11.5-14.5 Platelets (test code = Platelets) 213.0 x10 140.0-440.0 MPV (test code = MPV) 9.9 fL N Slide Review (test code = Slide Review) Auto Auto Result created by [email or web address]_[email or web address]_AUTO nRBC (test code = nRBC) 0 N NRBC Abs (test code = NRBC Abs) 0.00 x10 N IPF (test code = IPF) 0 % N Automated [id number] 21:34:23* Test Item Value Reference Range Interpretation Comments Neutro Auto (test code = Neutro Auto) 65.4 % 36.0-70.0 Lymph Auto (test code = Lymph Auto) 23.3 % 12.0-44.0 [place] Auto (test code = [place] Auto) 8.6 % 0.0-11.0 Eos, Auto (test code = Eos, Auto) 1.6 % 0.0-7.0 Basophil Auto (test code = Basophil Auto) 0.3 % 0.0-2.0 Neutro Absolute (test code = Neutro Absolute) 4.8 x10 1.6-7.4 Lymph Absolute (test code = Lymph Absolute) 1.73 x10 .50-4.60 [place] Absolute (test code = [place] Absolute) .64 x10 .00-1.20 Eos Absolute (test code = Eos Absolute) 0.12 x10 0.00-0.74 Baso Absolute (test code = Baso Absolute) 0.02 x10 0.00-0.21 IG [id number] 21:34:23* Test Item Value Reference Range Interpretation Comments IG (test code = IG) 0.8 % 0.0-5.0 IG Abs (test code = IG Abs) 0 x10 N XR Chest 1 View Exaufve1308-18-51 21:08:50Patient: ARANZA LOPEZ Date/Time01/13/2019 20:43 CSTReason for ExamCHF (Congestive Heart Failure), knownReportChest one view AP 01/13/2019 9:08 PMCLINICAL INDICATION: CHFCOMPARISON: 09/07/2016LOCATION: [id number]:Cardiomediastinal contours are within normal limits. There is mild pulmonary edema. There are post surgical changes in the sternum and cervical spine. Final Dictated by: MD Johnston Timothy JDictated DT/TM: 01/13/2019 9:08 pmSigned by: MD Johnston Timothy JSigned (Electronic Signature): 01/13/2019 9:08 [id number] 21:02:00Negative *NA*(01/11/19 3:02 PM)[facility] [id number] 20:50:00<0.02 [facility]CHEM MYPXL0297-50-15 20:50:49832Pupqexsg HermannCHEM PANEL 2019-01-11 20:50:009[facility]annCHEM SHMVQ1471-70-19 20:50:001.25[facility]annCHEM EAKOD9977-65-75 20:50:41898Jxqqqwuj HermannCHEM OOYSN5881-87-18 20:50:003.8[facility]annCHEM OILEC5439-97-24 20:50:69655Whtckocl HermannCHEM LCAEB3437-24-23 20:50:0026[facility]annCHEM XRKXH0730-27-94 20:50:009.7 [facility]CHE[facility] VVCCS0647-52-43 20:50:0015.8[facility]annCHEM PANEL 2019-01-11 20:50:0068[facility] SfuflswUQHGQDQUGZ6266-57-14 20:50:007.1[facility] VcmjrnyDOUGYUCLNB0394-27-01 20:50:004.84[facility] GzrroauYKAVUQPZJP0476-18-53 20:50:0014.7[facility] GgetlrdCKKZPWGWXM3420-59-25 20:50:0042.8[facility]ur XJAYZJKHTW0574-08-04 20:50:0088.5[facility] NxxaidzOYQUZAMQGY5794-30-08 20:50:00* Test Item Value Reference Range Interpretation Comments MCH (test code = MCH) 30.5 pg 27.0-31.0 [facility] TunzqxaYOSSKEVBEE5852-92-15 20:50:0034.4[facility]annHEMATOLOGY 2019-01-11 20:50:0015.5[facility] DcdkjcwTEBWHRHQTA6246-57-37 20:50:08364Dmszcqdc LwgatyrAQDXCXRLJM2633-24-95 20:50:008.0[facility] SuyetklTKTDHUQDLX0975-02-79 20:50:0063.2[facility] VmpbbjyKECBGLJNBW7450-44-51 20:50:0025.9[facility] AKZASZZWSL9742-10-26 20:50:007.9[facility] FjjfeozVAWTMARKSF9350-57-19 20:50:002.0 [facility] JzlkcayOOLYKBXLXX5189-68-19 20:50:001.0[facility]annHEMATOLOGY 2019-01-11 20:50:004.5[facility] OoyrkzrAFVZENEXWF3440-90-38 20:50:001.8[facility] FdfjwkbSZFARHTFWD3033-74-84 20:50:000.6[facility] OzdakcgZQGXDMAOAL5672-52-06 20:50:000.1[facility] KwloxxoXEPSPIQTKJ6771-44-85 20:50:000.1[facility]annPOC- Glucose syngj9292-86-62 12:19:00* Test Item Value Reference Range Interpretation Comments POC-Glucose Meter (test code = 1538) 257 mg/dL 70-110 H : TESTED AT [place] [id number] [facility], [address]: Remote Sensing Scientist/Ambulatory Care Coordinator ID = [id number] for Queen aCrdona Lab Interpretation (test code = 26582-3) [facility] [id number] 12:19:00* Test Item Value Reference Range Interpretation Comments POC-GLUCOSE METER (BEAKER) (test code = 1538) 257 mg/dL 70-110 H : TESTED AT [place] [id number] [facility], [address]: Remote Sensing Scientist/Ambulatory Care Coordinator ID = [id number] for Queen Cardona POCT-GLUCOSE [id number] 07:21:00* Test Item Value Reference Range Interpretation Comments POC-GLUCOSE METER (BEAKER) (test code = 1538) 218 mg/dL 70-110 H : TESTED AT [place] [id number] [facility], [address]: Remote Sensing Scientist/Ambulatory Care Coordinator ID = [id number] for Queen Cardona BASIC METABOLIC [id number] 06:23:00* Test Item Value Reference Range Interpretation Comments SODIUM (BEAKER) (test code = 381) 137 meq/L 136-145 POTASSIUM (BEAKER) (test code = 379) 3.7 meq/L 3.5-5.1 CHLORIDE (BEAKER) (test code = 382) 102 meq/L 98-107 CO2 (BEAKER) (test code = 355) 25 meq/L 22-29 BLOOD UREA NITROGEN (BEAKER) (test code = 354) 22 mg/dL 7-21 H CREATININE (BEAKER) (test code = 358) 1.17 mg/dL 0.57-1.25 GLUCOSE RANDOM (BEAKER) (test code = 652) 226 mg/dL 70-105 H CALCIUM (BEAKER) (test code = 697) 9.0 mg/dL 8.4-10.2 EGFR (BEAKER) (test code = 1092) 67 mL/min/1.73 sq m ESTIMATED GFR IS NOT ACCURATE CREATININE CLEARANCE IN PREDICTING GLOMERULAR FILTRATION RATE. ESTIMATED GFR IS NOT APPLICABLE FOR DIALYSIS PATIENTS. POCT-GLUCOSE [id number] 23:30:00* Test Item Value Reference Range Interpretation Comments POC-GLUCOSE METER (BEAKER) (test code = 1538) 250 mg/dL 70-110 H : TESTED AT [address], [address]: Remote Sensing Scientist/Ambulatory Care Coordinator ID = [id number] for ABHISHEK ROBB POCT-GLUCOSE [id number] 16:53:00* Test Item Value Reference Range Interpretation Comments POC-GLUCOSE METER (BEAKER) (test code = 1538) 319 mg/dL 70-110 H : TESTED AT [address], [address]: Remote Sensing Scientist/Ambulatory Care Coordinator ID = [id number] for Queen Cardona [id number] 12:43:00* Test Item Value Reference Range Interpretation Comments PTT (test code = 15592-6) 48.9 22.5- 36.0 seconds H Lab Interpretation (test code = 19268-3) [facility] 12:43:00* Test Item Value Reference Range Interpretation Comments PARTIAL THROMBOPLASTIN TIME (BEAKER) (test code = 760) 48.9 seconds 22.5-36.0 H POCT-GLUCOSE [id number] 11:48:00* Test Item Value Reference Range Interpretation Comments POC-GLUCOSE METER (BEAKER) (test code = 1538) 250 mg/dL 70-110 H : TESTED AT [address], [address]: Remote Sensing Scientist/Ambulatory Care Coordinator ID = [id number] for Queen Cardona POCT-GLUCOSE [id number] 07:29:00* Test Item Value Reference Range Interpretation Comments POC-GLUCOSE METER (BEAKER) (test code = 1538) 214 mg/dL 70-110 H : TESTED AT [facility] [address] [facility], [address]: Remote Sensing Scientist/Ambulatory Care Coordinator ID = [id number] for Queen Cardona Dghbxqbsx2759-07-23 03:35:00* Test Item Value Reference Range Interpretation Comments Magnesium (test code = 34153-8) 2.0 mg/dL 1.6-2.6 Lab Interpretation (test code = 91975-9) [facility]:35[facility]* Test Item Value Reference Range Interpretation Comments Phosphorus (test code = 2777-1) 4.5 mg/dL 2.3-4.7 Lab Interpretation (test code = 41542-7) [facility] 03:35:00* Test Item Value Reference Range Interpretation Comments PHOSPHORUS (BEAKER) (test code = 604) 4.5 mg/dL 2.3-4.7 MNFOOQJRP8345-99-29 03:35:00* Test Item Value Reference Range Interpretation Comments MAGNESIUM (BEAKER) (test code = 627) 2.0 mg/dL 1.6-2.6 BASIC METABOLIC [id number] 03:35:00* Test Item Value Reference Range Interpretation Comments SODIUM (BEAKER) (test code = 381) 137 meq/L 136-145 POTASSIUM (BEAKER) (test code = 379) 3.8 meq/L 3.5-5.1 CHLORIDE (BEAKER) (test code = 382) 100 meq/L 98-107 CO2 (BEAKER) (test code = 355) 26 meq/L 22-29 BLOOD UREA NITROGEN (BEAKER) (test code = 354) 18 mg/dL 7-21 CREATININE (BEAKER) (test code = 358) 1.34 mg/dL 0.57-1.25 H GLUCOSE RANDOM (BEAKER) (test code = 652) 244 mg/dL 70-105 H CALCIUM (BEAKER) (test code = 697) 9.3 mg/dL 8.4-10.2 EGFR (BEAKER) (test code = 1092) 57 mL/min/1.73 sq m ESTIMATED GFR IS NOT ACCURATE CREATININE CLEARANCE IN PREDICTING GLOMERULAR FILTRATION RATE. ESTIMATED GFR IS NOT APPLICABLE FOR DIALYSIS PATIENTS. Calcium, Kfmzgsg0097-27-37 02:33:00* Test Item Value Reference Range Interpretation Comments Calcium, Ion (test code = 1994-3) 1.10 mmol/L 1.12-1.27 L pH, Blood (test code = 31196-3) 7.43 Lab Interpretation (test code = 89186-6) [facility], [id number] 02:33:00* Test Item Value Reference Range Interpretation Comments CALCIUM IONIZED (BEAKER) (test code = 698) 1.10 mmol/L 1.12-1.27 L PH, BLOOD (BEAKER) (test code = 1810) 7.43 [id number] 02:04:00* Test Item Value Reference Range Interpretation Comments PARTIAL THROMBOPLASTIN TIME (BEAKER) (test code = 760) 47.2 seconds 22.5-36.0 H CBC W/PLT COUNT & AUTO [id number] 01:46:00* Test Item Value Reference Range Interpretation Comments WHITE BLOOD CELL COUNT (BEAKER) (test code = 775) 8.6 K/ L 3.5- 10.5 RED BLOOD CELL COUNT (BEAKER) (test code = 761) 4.76 M/ L 4.63-6 .08 HEMOGLOBIN (BEAKER) (test code = 410) 14.3 GM/DL 13.7-17.5 HEMATOCRIT (BEAKER) (test code = 411) 42.4 % 40.1-51.0 MEAN CORPUSCULAR VOLUME (BEAKER) (test code = 753) 89.1 fL 79. 0-92.2 MEAN CORPUSCULAR HEMOGLOBIN (BEAKER) (test code = 751) 30.0 pg 25.7-32.2 MEAN CORPUSCULAR HEMOGLOBIN CONC (BEAKER) (test code = 752) 33.7 GM/DL 32.3-36.5 RED CELL DISTRIBUTION WIDTH (BEAKER) (test code = 412) 13.6 % 11.6-14.4 PLATELET COUNT (BEAKER) (test code = 756) 223 K/CU MM 150-450 MEAN PLATELET VOLUME (BEAKER) (test code = 754) 10.0 fL 9.4-12 .4 NUCLEATED RED BLOOD CELLS (BEAKER) (test code = 413) 0 /100 WBC 0 -0 NEUTROPHILS RELATIVE PERCENT (BEAKER) (test code = 429) 70 % LYMPHOCYTES RELATIVE PERCENT (BEAKER) (test code = 430) 21 % MONOCYTES RELATIVE PERCENT (BEAKER) (test code = 431) 6 % EOSINOPHILS RELATIVE PERCENT (BEAKER) (test code = 432) 1 % BASOPHILS RELATIVE PERCENT (BEAKER) (test code = 437) 1 % NEUTROPHILS ABSOLUTE COUNT (BEAKER) (test code = 670) 6.04 K/ L 1.78-5.38 H LYMPHOCYTES ABSOLUTE COUNT (BEAKER) (test code = 414) 1.83 K/ L 1.32-3.57 MONOCYTES ABSOLUTE COUNT (BEAKER) (test code = 415) 0.51 K/ L 0. 30-0.82 EOSINOPHILS ABSOLUTE COUNT (BEAKER) (test code = 416) 0.07 K/ L 0.04-0.54 BASOPHILS ABSOLUTE COUNT (BEAKER) (test code = 417) 0.04 K/ L 0. 01-0.08 IMMATURE GRANULOCYTES-RELATIVE PERCENT (BEAKER) (test code = 2801) 1 % 0-1 POCT-GLUCOSE [id number] 21:17:00* Test Item Value Reference Range Interpretation Comments POC-GLUCOSE METER (BEAKER) (test code = 1538) 333 mg/dL 70-110 H : TESTED AT [address], [address]: Remote Sensing Scientist/Ambulatory Care Coordinator ID = [id number] for FREDERIC MARTIN [id number] 18:25:00* Test Item Value Reference Range Interpretation Comments PARTIAL THROMBOPLASTIN TIME (BEAKER) (test code = 760) 37.9 seconds 22.5-36.0 H POCT-GLUCOSE [id number] 16:45:00* Test Item Value Reference Range Interpretation Comments POC-GLUCOSE METER (BEAKER) (test code = 1538) 334 mg/dL 70-110 H : TESTED AT [address], [address]: Remote Sensing Scientist/Ambulatory Care Coordinator ID = [id number] for Hillary Marley POCT-GLUCOSE [id number] 12:41:00* Test Item Value Reference Range Interpretation Comments POC-GLUCOSE METER (BEAKER) (test code = 1538) 290 mg/dL 70-110 H : TESTED AT [facility] [address] [facility], [address]: Remote Sensing Scientist/Ambulatory Care Coordinator ID = [id number] for Hillary Marley [id number] 11:29:00* Test Item Value Reference Range Interpretation Comments PARTIAL THROMBOPLASTIN TIME (BEAKER) (test code = 760) 39.1 seconds 22.5-36.0 H POCT-GLUCOSE [id number] 07:56:00* Test Item Value Reference Range Interpretation Comments POC-GLUCOSE METER (BEAKER) (test code = 1538) 274 mg/dL 70-110 H : TESTED AT [facility] [address] [facility], [address]: Remote Sensing Scientist/Ambulatory Care Coordinator ID = [id number] for Hillary Marley [id number] 03:14:00* Test Item Value Reference Range Interpretation Comments PARTIAL THROMBOPLASTIN TIME (BEAKER) (test code = 760) 35.4 seconds 22.5-36.0 CALCIUM, [id number] 03:13:00* Test Item Value Reference Range Interpretation Comments CALCIUM IONIZED (BEAKER) (test code = 698) 1.15 mmol/L 1.12-1.27 PH, BLOOD (BEAKER) (test code = 1810) 7.43 [id number] 03:09:00* Test Item Value Reference Range Interpretation Comments PHOSPHORUS (BEAKER) (test code = 604) 4.2 mg/dL 2.3-4.7 [id number] 03:09:00* Test Item Value Reference Range Interpretation Comments MAGNESIUM (BEAKER) (test code = 627) 2.0 mg/dL 1.6-2.6 BASIC METABOLIC [id number] 03:09:00* Test Item Value Reference Range Interpretation Comments SODIUM (BEAKER) (test code = 381) 136 meq/L 136-145 POTASSIUM (BEAKER) (test code = 379) 3.5 meq/L 3.5-5.1 CHLORIDE (BEAKER) (test code = 382) 102 meq/L 98-107 CO2 (BEAKER) (test code = 355) 25 meq/L 22-29 BLOOD UREA NITROGEN (BEAKER) (test code = 354) 16 mg/dL 7-21 CREATININE (BEAKER) (test code = 358) 1.09 mg/dL 0.57-1.25 GLUCOSE RANDOM (BEAKER) (test code = 652) 213 mg/dL 70-105 H CALCIUM (BEAKER) (test code = 697) 8.9 mg/dL 8.4-10.2 EGFR (BEAKER) (test code = 1092) 72 mL/min/1.73 sq m ESTIMATED GFR IS NOT ACCURATE CREATININE CLEARANCE IN PREDICTING GLOMERULAR FILTRATION RATE. ESTIMATED GFR IS NOT APPLICABLE FOR DIALYSIS PATIENTS. CBC W/PLT COUNT & AUTO [id number] 02:57:00* Test Item Value Reference Range Interpretation Comments WHITE BLOOD CELL COUNT (BEAKER) (test code = 775) 6.7 K/ L 3.5- 10.5 RED BLOOD CELL COUNT (BEAKER) (test code = 761) 4.39 M/ L 4.63-6 .08 L HEMOGLOBIN (BEAKER) (test code = 410) 13.2 GM/DL 13.7-17.5 L HEMATOCRIT (BEAKER) (test code = 411) 39.5 % 40.1-51.0 L MEAN CORPUSCULAR VOLUME (BEAKER) (test code = 753) 90.0 fL 79. 0-92.2 MEAN CORPUSCULAR HEMOGLOBIN (BEAKER) (test code = 751) 30.1 pg 25.7-32.2 MEAN CORPUSCULAR HEMOGLOBIN CONC (BEAKER) (test code = 752) 33.4 GM/DL 32.3-36.5 RED CELL DISTRIBUTION WIDTH (BEAKER) (test code = 412) 13.9 % 11.6-14.4 PLATELET COUNT (BEAKER) (test code = 756) 179 K/CU MM 150-450 MEAN PLATELET VOLUME (BEAKER) (test code = 754) 10.1 fL 9.4-12 .4 NUCLEATED RED BLOOD CELLS (BEAKER) (test code = 413) 0 /100 WBC 0 -0 NEUTROPHILS RELATIVE PERCENT (BEAKER) (test code = 429) 55 % LYMPHOCYTES RELATIVE PERCENT (BEAKER) (test code = 430) 35 % MONOCYTES RELATIVE PERCENT (BEAKER) (test code = 431) 7 % EOSINOPHILS RELATIVE PERCENT (BEAKER) (test code = 432) 2 % BASOPHILS RELATIVE PERCENT (BEAKER) (test code = 437) 1 % NEUTROPHILS ABSOLUTE COUNT (BEAKER) (test code = 670) 3.65 K/ L 1.78-5.38 LYMPHOCYTES ABSOLUTE COUNT (BEAKER) (test code = 414) 2.31 K/ L 1.32-3.57 MONOCYTES ABSOLUTE COUNT (BEAKER) (test code = 415) 0.49 K/ L 0. 30-0.82 EOSINOPHILS ABSOLUTE COUNT (BEAKER) (test code = 416) 0.12 K/ L 0.04-0.54 BASOPHILS ABSOLUTE COUNT (BEAKER) (test code = 417) 0.03 K/ L 0. 01-0.08 IMMATURE GRANULOCYTES-RELATIVE PERCENT (BEAKER) (test code = 2801) 1 % 0-1 POCT-GLUCOSE [id number] 22:22:00* Test Item Value Reference Range Interpretation Comments POC-GLUCOSE METER (BEAKER) (test code = 1538) 205 mg/dL 70-110 H : TESTED AT [place] [id number] [facility], [address]: Remote Sensing Scientist/Ambulatory Care Coordinator ID = [id number] for AMANDA QURESHI [id number] 20:09:00* Test Item Value Reference Range Interpretation Comments PARTIAL THROMBOPLASTIN TIME (BEAKER) (test code = 760) 33.8 seconds 22.5-36.0 POCT-GLUCOSE [id number] 17:24:00* Test Item Value Reference Range Interpretation Comments POC-GLUCOSE METER (BEAKER) (test code = 1538) 227 mg/dL 70-110 H : TESTED AT [facility] [address] [facility], [address]: Remote Sensing Scientist/Ambulatory Care Coordinator ID = [id number] for Hillary Marley [id number] 14:13:00* Test Item Value Reference Range Interpretation Comments PARTIAL THROMBOPLASTIN TIME (BEAKER) (test code = 760) 32.5 seconds 22.5-36.0 TROPONIN [id number] 14:01:00* Test Item Value Reference Range Interpretation Comments TROPONIN I (BEAKER) (test code = 397) < ng/mL 0.00-0.03 Troponin I (TnI) levels must be interpreted in the context of the presenting sym ptoms and the clinical findings. Elevated TnI levels indicate myocardial damage, but are not specific for ischemic heart disease. Elevated TnI levels are seen in patients with other cardiac conditions (including myocarditis and congestive h eart failure), and slight TnI elevations occur in patients with other conditions , including sepsis, renal failure, acidosis, acute neurological disease, and per sistent tachyarrhythmia.POCT-GLUCOSE [id number] 13:42:00* Test Item Value Reference Range Interpretation Comments POC-GLUCOSE METER (BEAKER) (test code = 1538) 245 mg/dL 70-110 H : TESTED AT [facility] [address] [facility], [address]: Remote Sensing Scientist/Ambulatory Care Coordinator ID = [id number] for MARJORIE MENG CBC (hemogram only)2019-01-03 08:12:00* Test Item Value Reference Range Interpretation Comments WBC (test code = 6690-2) 8.4 3.5- 10.5 K/L RBC (test code = 789-8) 4.62 4.63- 6.08 M/L L MCHC (test code = 786-4) 33.5 32.3- 36.5 GM/DL Hematocrit (test code = 4544-3) 40.9 % 40.1-51 MCV (test code = 787-2) 88.5 fL 79-92.2 MCH (test code = 785-6) 29.7 pg 25.7-32.2 RDW (test code = 788-0) 14.0 % 11.6-14.4 Platelets (test code = 777-3) 225 150- 450 K/CU MM MPV (test code = 14324-1) 10.3 fL 9.4-12.4 nRBC (test code = 413) 0 0- 0 /100 WBC Lab Interpretation (test code = 99227-1) [facility] 08:12:[facility]* Test Item Value Reference Range Interpretation Comments WHITE BLOOD CELL COUNT (BEAKER) (test code = 775) 8.4 K/ L 3.5- 10.5 RED BLOOD CELL COUNT (BEAKER) (test code = 761) 4.62 M/ L 4.63-6 .08 L HEMOGLOBIN (BEAKER) (test code = 410) 13.7 GM/DL 13.7-17.5 HEMATOCRIT (BEAKER) (test code = 411) 40.9 % 40.1-51.0 MEAN CORPUSCULAR VOLUME (BEAKER) (test code = 753) 88.5 fL 79. 0-92.2 MEAN CORPUSCULAR HEMOGLOBIN (BEAKER) (test code = 751) 29.7 pg 25.7-32.2 MEAN CORPUSCULAR HEMOGLOBIN CONC (BEAKER) (test code = 752) 33.5 GM/DL 32.3-36.5 RED CELL DISTRIBUTION WIDTH (BEAKER) (test code = 412) 14.0 % 11.6-14.4 PLATELET COUNT (BEAKER) (test code = 756) 225 K/CU MM 150-450 MEAN PLATELET VOLUME (BEAKER) (test code = 754) 10.3 fL 9.4-12 .4 NUCLEATED RED BLOOD CELLS (BEAKER) (test code = 413) 0 /100 WBC 0 -0 POCT-GLUCOSE [id number] 07:58:00* Test Item Value Reference Range Interpretation Comments POC-GLUCOSE METER (BEAKER) (test code = 1538) 252 mg/dL 70-110 H : TESTED AT [address], [address]: Remote Sensing Scientist/Ambulatory Care Coordinator ID = [id number] for Hillary Marley TROPONIN [id number] 06:38:00* Test Item Value Reference Range Interpretation Comments TROPONIN I (BEAKER) (test code = 397) < ng/mL 0.00-0.03 Troponin I (TnI) levels must be interpreted in the context of the presenting sym ptoms and the clinical findings. Elevated TnI levels indicate myocardial damage, but are not specific for ischemic heart disease. Elevated TnI levels are seen in patients with other cardiac conditions (including myocarditis and congestive h eart failure), and slight TnI elevations occur in patients with other conditions , including sepsis, renal failure, acidosis, acute neurological disease, and per sistent tachyarrhythmia.[id number] 06:29:00* Test Item Value Reference Range Interpretation Comments MAGNESIUM (BEAKER) (test code = 627) 2.1 mg/dL 1.6-2.6 BASIC METABOLIC [id number] 06:29:00* Test Item Value Reference Range Interpretation Comments SODIUM (BEAKER) (test code = 381) 137 meq/L 136-145 POTASSIUM (BEAKER) (test code = 379) 2.8 meq/L 3.5-5.1 L CHLORIDE (BEAKER) (test code = 382) 98 meq/L 98-107 CO2 (BEAKER) (test code = 355) 29 meq/L 22-29 BLOOD UREA NITROGEN (BEAKER) (test code = 354) 14 mg/dL 7-21 CREATININE (BEAKER) (test code = 358) 1.31 mg/dL 0.57-1.25 H GLUCOSE RANDOM (BEAKER) (test code = 652) 166 mg/dL 70-105 H CALCIUM (BEAKER) (test code = 697) 8.9 mg/dL 8.4-10.2 EGFR (BEAKER) (test code = 1092) 58 mL/min/1.73 sq m ESTIMATED GFR IS NOT ACCURATE CREATININE CLEARANCE IN PREDICTING GLOMERULAR FILTRATION RATE. ESTIMATED GFR IS NOT APPLICABLE FOR DIALYSIS PATIENTS. [id number] 03:41:00* Test Item Value Reference Range Interpretation Comments PARTIAL THROMBOPLASTIN TIME (BEAKER) (test code = 760) 36.2 seconds 22.5-36.0 H 6 hours after starting heparin infusion and as indicated per sliding scalePOCT- GLUCOSE [id number] 03:18:00* Test Item Value Reference Range Interpretation Comments POC-GLUCOSE METER (BEAKER) (test code = 1538) 190 mg/dL 70-110 H : TESTED AT [facility] [address] [place] [address], [address]: Remote Sensing Scientist/Ambulatory Care Coordinator ID = [id number] for AMANDA QURESHI B-type Natriuretic Factor (BNP)2019-01-02 22:23:00* Test Item Value Reference Range Interpretation Comments BNP (test code = 36175-8) 10 pg/mL 0-100 Lab Interpretation (test code = 46001-7) [facility] (BNP)2019-01-02 22:23:00 * Test Item Value Reference Range Interpretation Comments B-TYPE NATRIURETIC PEPTIDE (BEAKER) (test code = 700) 10 pg/mL 0-100 TROPONIN [id number] 22:23:00* Test Item Value Reference Range Interpretation Comments TROPONIN I (BEAKER) (test code = 397) < ng/mL 0.00-0.03 Troponin I (TnI) levels must be interpreted in the context of the presenting sym ptoms and the clinical findings. Elevated TnI levels indicate myocardial damage, but are not specific for ischemic heart disease. Elevated TnI levels are seen in patients with other cardiac conditions (including myocarditis and congestive h eart failure), and slight TnI elevations occur in patients with other conditions , including sepsis, renal failure, acidosis, acute neurological disease, and per sistent tachyarrhythmia.RAD, CHEST, 1 VIEW, NON [id number] 22:20:00Reason for exam:->CHEST PAINShould this be performed at the bedside?->YesFINAL REPORT Portable chest. CLINICAL HISTORY: CHEST PAIN. COMPARISON STUDY: December 25, 2018. FINDINGS: The cardiac silhouette is enlarged. Sternotomy wires are seen. The pulmonary parenchyma demonstrates increased i nterstitial markings with atelectasis or consolidation in the right perihilar re gion, similar to previous. No pneumothorax is seen. Degenerative changes are not ed. Posterior changes are seen in the cervical spine. IMPRESSION: No significant change. Signed: Thomas Fang MDReport Verified Date/Time: 01/02/2019 22:20: 00 Reading Location: [facility] [id number] Consult Reading Room Electronically flora d by: THOMAS FANG M.D. on 01/02/2019 10:20 PM BASIC METABOLIC PANEL 2019-01-02 22:14:00* Test Item Value Reference Range Interpretation Comments SODIUM (BEAKER) (test code = 381) 136 meq/L 136-145 POTASSIUM (BEAKER) (test code = 379) 3.5 meq/L 3.5-5.1 CHLORIDE (BEAKER) (test code = 382) 99 meq/L 98-107 CO2 (BEAKER) (test code = 355) 26 meq/L 22-29 BLOOD UREA NITROGEN (BEAKER) (test code = 354) 13 mg/dL 7-21 CREATININE (BEAKER) (test code = 358) 1.54 mg/dL 0.57-1.25 H GLUCOSE RANDOM (BEAKER) (test code = 652) 227 mg/dL 70-105 H CALCIUM (BEAKER) (test code = 697) 9.3 mg/dL 8.4-10.2 EGFR (BEAKER) (test code = 1092) 48 mL/min/1.73 sq m ESTIMATED GFR IS NOT ACCURATE CREATININE CLEARANCE IN PREDICTING GLOMERULAR FILTRATION RATE. ESTIMATED GFR IS NOT APPLICABLE FOR DIALYSIS PATIENTS. CBC W/PLT COUNT & AUTO [id number] 21:56:00* Test Item Value Reference Range Interpretation Comments WHITE BLOOD CELL COUNT (BEAKER) (test code = 775) 7.4 K/ L 3.5- 10.5 RED BLOOD CELL COUNT (BEAKER) (test code = 761) 5.11 M/ L 4.63-6 .08 HEMOGLOBIN (BEAKER) (test code = 410) 15.4 GM/DL 13.7-17.5 HEMATOCRIT (BEAKER) (test code = 411) 45.2 % 40.1-51.0 MEAN CORPUSCULAR VOLUME (BEAKER) (test code = 753) 88.5 fL 79. 0-92.2 MEAN CORPUSCULAR HEMOGLOBIN (BEAKER) (test code = 751) 30.1 pg 25.7-32.2 MEAN CORPUSCULAR HEMOGLOBIN CONC (BEAKER) (test code = 752) 34.1 GM/DL 32.3-36.5 RED CELL DISTRIBUTION WIDTH (BEAKER) (test code = 412) 14.0 % 11.6-14.4 PLATELET COUNT (BEAKER) (test code = 756) 217 K/CU MM 150-450 MEAN PLATELET VOLUME (BEAKER) (test code = 754) 9.9 fL 9.4-12 .4 NUCLEATED RED BLOOD CELLS (BEAKER) (test code = 413) 0 /100 WBC 0 -0 NEUTROPHILS RELATIVE PERCENT (BEAKER) (test code = 429) 60 % LYMPHOCYTES RELATIVE PERCENT (BEAKER) (test code = 430) 30 % MONOCYTES RELATIVE PERCENT (BEAKER) (test code = 431) 7 % EOSINOPHILS RELATIVE PERCENT (BEAKER) (test code = 432) 2 % BASOPHILS RELATIVE PERCENT (BEAKER) (test code = 437) 1 % NEUTROPHILS ABSOLUTE COUNT (BEAKER) (test code = 670) 4.43 K/ L 1.78-5.38 LYMPHOCYTES ABSOLUTE COUNT (BEAKER) (test code = 414) 2.17 K/ L 1.32-3.57 MONOCYTES ABSOLUTE COUNT (BEAKER) (test code = 415) 0.53 K/ L 0. 30-0.82 EOSINOPHILS ABSOLUTE COUNT (BEAKER) (test code = 416) 0.12 K/ L 0.04-0.54 BASOPHILS ABSOLUTE COUNT (BEAKER) (test code = 417) 0.04 K/ L 0. 01-0.08 IMMATURE GRANULOCYTES-RELATIVE PERCENT (BEAKER) (test code = 2801) 1 % 0-1 POCT-GLUCOSE [id number] 13:08:00* Test Item Value Reference Range Interpretation Comments POC-GLUCOSE METER (BEAKER) (test code = 1538) 180 mg/dL 70-110 H : TESTED AT [address], [address]: Remote Sensing Scientist/Ambulatory Care Coordinator ID = [id number] for Jw Healy POCT-GLUCOSE [id number] 13:05:00* Test Item Value Reference Range Interpretation Comments POC-GLUCOSE METER (BEAKER) (test code = 1538) 139 mg/dL 70-110 H : TESTED AT [address], [address]: Remote Sensing Scientist/Ambulatory Care Coordinator ID = [id number] for Brendan Bharathzurichava POCT-GLUCOSE [id number] 10:04:00* Test Item Value Reference Range Interpretation Comments POC-GLUCOSE METER (BEAKER) (test code = 1538) 155 mg/dL 70-110 H : TESTED AT [address], [address]: Remote Sensing Scientist/Ambulatory Care Coordinator ID = [id number] for TIN FREEMAN POCT-GLUCOSE [id number] 21:39:00* Test Item Value Reference Range Interpretation Comments POC-GLUCOSE METER (BEAKER) (test code = 1538) 240 mg/dL 70-110 H : TESTED AT [address], [address]: Remote Sensing Scientist/Ambulatory Care Coordinator ID = [id number] for JULIET GUZMAN POCT-GLUCOSE [id number] 17:30:00* Test Item Value Reference Range Interpretation Comments POC-GLUCOSE METER (BEAKER) (test code = 1538) 369 mg/dL 70-110 H : TESTED AT [address], [address]: Remote Sensing Scientist/Ambulatory Care Coordinator ID = [id number] for LYDIA TIN POCT-GLUCOSE [id number] 13:05:00* Test Item Value Reference Range Interpretation Comments POC-GLUCOSE METER (BEAKER) (test code = 1538) 265 mg/dL 70-110 H : TESTED AT [address], [address]: Remote Sensing Scientist/Ambulatory Care Coordinator ID = [id number] for TIN FREEMAN POCT-GLUCOSE [id number] 08:03:00* Test Item Value Reference Range Interpretation Comments POC-GLUCOSE METER (BEAKER) (test code = 1538) 167 mg/dL 70-110 H : TESTED AT [address], [address]: Remote Sensing Scientist/Ambulatory Care Coordinator ID = [id number] for TIN FREEMAN ABORH, [id number] 07:10:00* Test Item Value Reference Range Interpretation Comments ABO Grouping (test code = 2588) O Rh Factor (test code = 2589) [facility]G [facility] ([facility] Lab)2018-12-29 06:16:00* Test Item Value Reference Range Interpretation Comments ABO/RH AUTOMATED (BEAKER) (test code = 2260) O NEGATIVE Ab Scrn (test code = 890-4) NEGATIVE [facility] [id number] 22:15:00* Test Item Value Reference Range Interpretation Comments POC-GLUCOSE METER (BEAKER) (test code = 1538) 283 mg/dL 70-110 H : TESTED AT [address], [address]: Remote Sensing Scientist/Ambulatory Care Coordinator ID = [id number] for HERMES REYES POCT-GLUCOSE [id number] 18:04:00* Test Item Value Reference Range Interpretation Comments POC-GLUCOSE METER (BEAKER) (test code = 1538) 280 mg/dL 70-110 H : TESTED AT [address], [address]: Remote Sensing Scientist/Ambulatory Care Coordinator ID = [id number] for CALIN GIRON POCT-GLUCOSE [id number] 14:17:00* Test Item Value Reference Range Interpretation Comments POC-GLUCOSE METER (BEAKER) (test code = 1538) 372 mg/dL 70-110 H : TESTED AT [address], [address]: Remote Sensing Scientist/Ambulatory Care Coordinator ID = [id number] for CALIN GIRON POCT-GLUCOSE [id number] 08:29:00* Test Item Value Reference Range Interpretation Comments POC-GLUCOSE METER (BEAKER) (test code = 1538) 194 mg/dL 70-110 H : TESTED AT [address], [address]: Remote Sensing Scientist/Ambulatory Care Coordinator ID = [id number] for CALIN GIRON [id number] 05:39:00* Test Item Value Reference Range Interpretation Comments PHOSPHORUS (BEAKER) (test code = 604) 3.8 mg/dL 2.3-4.7 [id number] 05:39:00* Test Item Value Reference Range Interpretation Comments MAGNESIUM (BEAKER) (test code = 627) 2.1 mg/dL 1.6-2.6 BASIC METABOLIC [id number] 05:39:00* Test Item Value Reference Range Interpretation Comments SODIUM (BEAKER) (test code = 381) 135 meq/L 136-145 L POTASSIUM (BEAKER) (test code = 379) 3.6 meq/L 3.5-5.1 CHLORIDE (BEAKER) (test code = 382) 100 meq/L 98-107 CO2 (BEAKER) (test code = 355) 22 meq/L 22-29 BLOOD UREA NITROGEN (BEAKER) (test code = 354) 20 mg/dL 7-21 CREATININE (BEAKER) (test code = 358) 1.18 mg/dL 0.57-1.25 GLUCOSE RANDOM (BEAKER) (test code = 652) 192 mg/dL 70-105 H CALCIUM (BEAKER) (test code = 697) 9.0 mg/dL 8.4-10.2 EGFR (BEAKER) (test code = 1092) 66 mL/min/1.73 sq m ESTIMATED GFR IS NOT ACCURATE CREATININE CLEARANCE IN PREDICTING GLOMERULAR FILTRATION RATE. ESTIMATED GFR IS NOT APPLICABLE FOR DIALYSIS PATIENTS. CBC W/PLT COUNT & AUTO [id number] 05:29:00* Test Item Value Reference Range Interpretation Comments WHITE BLOOD CELL COUNT (BEAKER) (test code = 775) 6.3 K/ L 3.5- 10.5 RED BLOOD CELL COUNT (BEAKER) (test code = 761) 4.68 M/ L 4.63-6 .08 HEMOGLOBIN (BEAKER) (test code = 410) 14.0 GM/DL 13.7-17.5 HEMATOCRIT (BEAKER) (test code = 411) 41.7 % 40.1-51.0 MEAN CORPUSCULAR VOLUME (BEAKER) (test code = 753) 89.1 fL 79. 0-92.2 Discordant MCV results compared to previous results; clinical correlation required. MEAN CORPUSCULAR HEMOGLOBIN (BEAKER) (test code = 751) 29.9 pg 25.7-32.2 MEAN CORPUSCULAR HEMOGLOBIN CONC (BEAKER) (test code = 752) 33.6 GM/DL 32.3-36.5 RED CELL DISTRIBUTION WIDTH (BEAKER) (test code = 412) 13.5 % 11.6-14.4 PLATELET COUNT (BEAKER) (test code = 756) 217 K/CU MM 150-450 MEAN PLATELET VOLUME (BEAKER) (test code = 754) 9.9 fL 9.4-12 .4 NUCLEATED RED BLOOD CELLS (BEAKER) (test code = 413) 0 /100 WBC 0 -0 NEUTROPHILS RELATIVE PERCENT (BEAKER) (test code = 429) 61 % LYMPHOCYTES RELATIVE PERCENT (BEAKER) (test code = 430) 27 % MONOCYTES RELATIVE PERCENT (BEAKER) (test code = 431) 9 % EOSINOPHILS RELATIVE PERCENT (BEAKER) (test code = 432) 2 % BASOPHILS RELATIVE PERCENT (BEAKER) (test code = 437) 1 % NEUTROPHILS ABSOLUTE COUNT (BEAKER) (test code = 670) 3.82 K/ L 1.78-5.38 LYMPHOCYTES ABSOLUTE COUNT (BEAKER) (test code = 414) 1.69 K/ L 1.32-3.57 MONOCYTES ABSOLUTE COUNT (BEAKER) (test code = 415) 0.59 K/ L 0. 30-0.82 EOSINOPHILS ABSOLUTE COUNT (BEAKER) (test code = 416) 0.12 K/ L 0.04-0.54 BASOPHILS ABSOLUTE COUNT (BEAKER) (test code = 417) 0.03 K/ L 0. 01-0.08 IMMATURE GRANULOCYTES-RELATIVE PERCENT (BEAKER) (test code = 2801) 1 % 0-1 POCT-GLUCOSE [id number] 22:37:00* Test Item Value Reference Range Interpretation Comments POC-GLUCOSE METER (BEAKER) (test code = 1538) 267 mg/dL 70-110 H : TESTED AT [facility] [address] [facility], [address]: Remote Sensing Scientist/Ambulatory Care Coordinator ID = [id number] for HERMES REYES PET, CARDIAC PERFUSION MULTIPLE STUDIES, REST AND [id number] 15:41:00 Reason for exam:->Chest painFINAL REPORT PROCEDURE: MYOCARDIAL PERFUSION PET IMAGING (Rest/Stress)CPT CODE: 49276 INDICATION: Chest pain, ACS suspected CARDIOVASCULAR PROFILE:Symptoms: Chest painCAD History: Known CAD, CABG, atrial fibrillation, CHF, COPDRisk Factors: Diabetes mellitus, hypertension, obesity, smoker, CVABMI: 39.8Medications: Aspirin, Lipitor, Plavix, Lasix, Imdur, metoprolol, nitroglycerin, Xarelto STRESS PROTOCOL:Pharmacologic stress was achieved with a 10-second intravenous infusion of regadenoson 0.4 mg. IMAGING PROTOCOL:Limited low-dose CT imaging was performed for attenuation correction. 40.1 mCi of Rb-82 chloride was injected intravenously at rest, and PET images were obtained. Then, 3.0 mCi of Rb-82 chloride was injected intravenously at peak stress, and PET images were obtained. The images are very hazy noisy and therefore suboptimal secondary to the patient's body habitus REST FINDINGS:HR: 83 /minBP: 115/59 mmHgPrelim. EKG: Normal sinus rhythm.Perfusion: Normal.Wall Motion: Normal (LVEF rim and 70%).LV Volume: Normal.RV Volume: Normal. STRESS FINDINGS:HR: 96 /min (55% of MPHR)BP: 1 22/43 mmHgPrelim. EKG: No ischemic changes.Symptoms: None (treatment not require d).Perfusion: There is apparent decrease in the anterior inferior wall.Wall Abdullahi on: Normal (LVEF greater than 70%).LV Volume: Unchanged from rest. IMPRESSION:1. Suboptimal study.2. Abnormal myocardial perfusion. There is an apparently rever sible anterior inferior wall finding. 3.Normal global LV function, which does no t deteriorate with stress.4. Normal extracardiac tracer distribution.5. No prior seen. Signed: Noé Nevarez MDReport Verified Date/Time: 12/27/2018 15:41:01 myocardial perfusion PET (rest and stress)2018-12-27 15:41:00Interface, External Ris In - 12/27/2018 3:43 PM CSTFINAL REPORT PROCEDURE: MYOCARDIAL PERFUSION PET IMAGING (Rest/Stress)CPT CODE: 93560 INDICATION: Chest pain, ACS suspected CARDIOVASCULAR PROFILE:Symptoms: Chest painCAD History: Known CAD, CABG, atrial fibrillation, CHF, COPDRisk Factors: Diabetes mellitus, hypertension, obesity, smoker, CVABMI: 39.8Medications: Aspirin, Lipitor, Plavix, Lasix, Imdur, metoprolol, nitroglycerin, Xarelto STRESS PROTOC OL:Pharmacologic stress was achieved with a 10-second intravenous infusion of re gadenoson 0.4 mg. IMAGING PROTOCOL:Limited low-dose CT imaging was performed for attenuation correction. 40.1 mCi of Rb-82 chloride was injected intravenously at rest, and PET images were obtained. Then, 3.0 mCi of Rb-82 chloride was injected intravenously at peak stress, and PET images were obtained. The images are very hazy noisy and therefore suboptimal secondary to the patient's body habitus REST FINDINGS:HR: 83 /minBP: 115/59 mmHgPrelim. EKG: Normal sinus rhythm.Perfusion: Normal.Wall Motion: Normal (LVEF rim and 70%).LV Volume: Normal.RV Volume: No rmal. STRESS FINDINGS:HR: 96 /min (55% of MPHR)BP: 122/43 mmHgPrelim. EKG: No is chemic changes.Symptoms: None (treatment not required).Perfusion: There is appar ent decrease in the anterior inferior wall.Wall Motion: Normal (LVEF greater enrrique n 70%).LV Volume: Unchanged from rest. IMPRESSION:1. Suboptimal study.2. Abnorma l myocardial perfusion. There is an apparently reversible anterior inferior wall finding. 3.Normal global LV function, which does not deteriorate with stress.4. Normal extracardiac tracer distribution.5. No prior seen. Signed: Noé Nevarez MDReport Verified Date/Time: 12/27/2018 15:41:01 [facility] POCT-GLUCOSE [id number] 16:53:00* Test Item Value Reference Range Interpretation Comments POC-GLUCOSE METER (SHERRIEHEIDE) (test code = 1538) 185 mg/dL 70-110 H : TESTED AT [facility] [address] [place] [address], [address]: Remote Sensing Scientist/Ambulatory Care Coordinator ID = [id number] for ADRIAN BLACKWELL TROPONIN [id number] 10:51:00* Test Item Value Reference Range Interpretation Comments TROPONIN I (BEAKER) (test code = 397) < ng/mL 0.00-0.03 Troponin I (TnI) levels must be interpreted in the context of the presenting sym ptoms and the clinical findings. Elevated TnI levels indicate myocardial damage, but are not specific for ischemic heart disease. Elevated TnI levels are seen in patients with other cardiac conditions (including myocarditis and congestive h eart failure), and slight TnI elevations occur in patients with other conditions , including sepsis, renal failure, acidosis, acute neurological disease, and per sistent tachyarrhythmia.Rapid drug screen, [id number] 07:34:00* Test Item Value Reference Range Interpretation Comments Barbiturate Screen (test code = 80044-9) Negative Negative Benzodiazepine Screen (test code = 14483-5) Negative Negative Cocaine (Metab.) Screen (test code = 3397-7) Negative Negative Methadone Screen (test code = 96077-1) Negative Negative Opiate Screen (test code = 49609-2) Positive Negative A Cannabinoid Screen (test code = 45829-9) Negative Negative Amph/Methamph Screen (test code = 45686-8) Negative Negative Phencyclidine Screen (test code = 65262-8) Negative Negative JOSE (test code = JOSE) DRUG CUTOFF C ONC.Cocaine 300 ng/mL Cannabinoid 50 ng/mLBenzodiazepine 200 ng/mLBarbiturate 200 ng/mLPhencyclidine 25 ng/mLOpiate 300 ng/mLMethadone 300 ng/mLAmphetamine/ 1000 ng/mL Methamphetamine This assay provides an unconfirmed qualitative test result for the clinical management of patients in emergency situations. Chain of custody not maintained. Some [id number] medications, as well as adulterants, may cause inaccurate results. Clinical correlation should be applied. A more comprehensive drug screen or confirmation of a detected drug may be performed upon request. Lab Interpretation (test code = 37001-2) [facility] [id number] 07:34:00* Test Item Value Reference Range Interpretation Comments BARBITURATE URINE (BEAKER) (test code = 725) Negative Negative BENZODIAZEPINE SCREEN URINE (BEAKER) (test code = 726) Negative Negative COCAINE (METAB.) SCREEN (BEAKER) (test code = 1164) Negative Ne gative METHADONE SCREEN (BEAKER) (test code = 1436) Negative Negative OPIATE SCREEN URINE (BEAKER) (test code = 734) Positive Negativ e A CANNABINOID SCREEN URINE (BEAKER) (test code = 727) Negative Ne gative AMPH/METHAMPH SCREEN (BEAKER) (test code = 1438) Negative Negat devonte PHENCYCLIDINE SCREEN URINE (BEAKER) (test code = 608) Negative Negative DRUG CUTOFF CONC.Cocaine 300 ng/mL Cannabinoid 50 ng/mLBenzodiazepine 200 ng/mLBarbiturate 200 ng/mLPh encyclidine 25 ng/mLOpiate 300 ng/mLMethadone 300 ng/mLAmphetamine/ 1000 ng/mL MethamphetamineThis assay provides an unconfirmed qualitative test result for the clinical management of patients in emergency situations. Chain of custody not maintained. Some kwog-nii-dpeddgr me dications, as well as adulterants, may cause inaccurate results. Clinical correl ation should be applied. A more comprehensive drug screen or confirmation of a d etected drug may be performed upon request.POCT-GLUCOSE [id number] 07:10:00 * Test Item Value Reference Range Interpretation Comments POC-GLUCOSE METER (BEAKER) (test code = 1538) 198 mg/dL 70-110 H : TESTED AT [address], [address]: Remote Sensing Scientist/Ambulatory Care Coordinator ID = [id number] for FITO ESCOBAR CBC W/PLT COUNT & AUTO [id number] 06:53:00* Test Item Value Reference Range Interpretation Comments WHITE BLOOD CELL COUNT (BEAKER) (test code = 775) 4.9 K/ L 3.5- 10.5 RED BLOOD CELL COUNT (BEAKER) (test code = 761) 4.34 M/ L 4.63-6 .08 L HEMOGLOBIN (BEAKER) (test code = 410) 13.0 GM/DL 13.7-17.5 L HEMATOCRIT (BEAKER) (test code = 411) 40.9 % 40.1-51.0 MEAN CORPUSCULAR VOLUME (BEAKER) (test code = 753) 94.2 fL 79. 0-92.2 H Discordant result compares with previous; clinical correlation requires. MEAN CORPUSCULAR HEMOGLOBIN (BEAKER) (test code = 751) 30.0 pg 25.7-32.2 MEAN CORPUSCULAR HEMOGLOBIN CONC (BEAKER) (test code = 752) 31.8 GM/DL 32.3-36.5 L RED CELL DISTRIBUTION WIDTH (BEAKER) (test code = 412) 14.2 % 11.6-14.4 PLATELET COUNT (BEAKER) (test code = 756) 190 K/CU MM 150-450 MEAN PLATELET VOLUME (BEAKER) (test code = 754) 9.8 fL 9.4-12 .4 NUCLEATED RED BLOOD CELLS (BEAKER) (test code = 413) 0 /100 WBC 0 -0 NEUTROPHILS RELATIVE PERCENT (BEAKER) (test code = 429) 57 % LYMPHOCYTES RELATIVE PERCENT (BEAKER) (test code = 430) 30 % MONOCYTES RELATIVE PERCENT (BEAKER) (test code = 431) 9 % EOSINOPHILS RELATIVE PERCENT (BEAKER) (test code = 432) 2 % BASOPHILS RELATIVE PERCENT (BEAKER) (test code = 437) 1 % NEUTROPHILS ABSOLUTE COUNT (BEAKER) (test code = 670) 2.78 K/ L 1.78-5.38 LYMPHOCYTES ABSOLUTE COUNT (BEAKER) (test code = 414) 1.45 K/ L 1.32-3.57 MONOCYTES ABSOLUTE COUNT (BEAKER) (test code = 415) 0.44 K/ L 0. 30-0.82 EOSINOPHILS ABSOLUTE COUNT (BEAKER) (test code = 416) 0.09 K/ L 0.04-0.54 BASOPHILS ABSOLUTE COUNT (BEAKER) (test code = 417) 0.05 K/ L 0. 01-0.08 IMMATURE GRANULOCYTES-RELATIVE PERCENT (BEAKER) (test code = 2801) 1 % 0-1 TROPONIN [id number] 06:28:00* Test Item Value Reference Range Interpretation Comments TROPONIN I (BEAKER) (test code = 397) < ng/mL 0.00-0.03 Troponin I (TnI) levels must be interpreted in the context of the presenting sym ptoms and the clinical findings. Elevated TnI levels indicate myocardial damage, but are not specific for ischemic heart disease. Elevated TnI levels are seen in patients with other cardiac conditions (including myocarditis and congestive h eart failure), and slight TnI elevations occur in patients with other conditions , including sepsis, renal failure, acidosis, acute neurological disease, and per sistent tachyarrhythmia.Hepatic function [id number] 06:25:00* Test Item Value Reference Range Interpretation Comments Protein, Total (test code = 2885-2) 6.2 6.0- 8.3 gm/dL Specimen slightly hemolyzed Albumin (test code = 82052-2) 3.6 g/dL 3.5-5 Specimen slightly hemolyzed Total Bilirubin (test code = 1974-2) 0.3 mg/dL 0.2-1.2 Specimen slightly hemolyzed Bilirubin, Direct (test code = 1967-7) 0.1 mg/dL 0.1-0.5 Specimen slightly hemolyzed Alkaline Phosphatase (test code = 6768-6) 84 U/L 40-150 AST (test code = 1920-8) 22 U/L 5-34 Spe cimen slightly hemolyzed ALT (test code = 1742-6) 26 U/L 6-55 Spe cimen slightly hemolyzed Lab Interpretation (test code = 87574-4) [facility]* Test Item Value Reference Range Interpretation Comments MAGNESIUM (BEAKER) (test code = 627) 2.1 mg/dL 1.6-2.6 Specimen slightly hemolyzed [id number] 06:25:00* Test Item Value Reference Range Interpretation Comments PHOSPHORUS (BEAKER) (test code = 604) 5.2 mg/dL 2.3-4.7 H Specimen slightly hemolyzed BASIC METABOLIC [id number] 06:25:00* Test Item Value Reference Range Interpretation Comments SODIUM (BEAKER) (test code = 381) 138 meq/L 136-145 POTASSIUM (BEAKER) (test code = 379) 4.1 meq/L 3.5-5.1 Specimen slightly hemolyzed CHLORIDE (BEAKER) (test code = 382) 106 meq/L 98-107 CO2 (BEAKER) (test code = 355) 23 meq/L 22-29 BLOOD UREA NITROGEN (BEAKER) (test code = 354) 16 mg/dL 7-21 CREATININE (BEAKER) (test code = 358) 1.09 mg/dL 0.57-1.25 Specimen slightly hemolyzed GLUCOSE RANDOM (BEAKER) (test code = 652) 201 mg/dL 70-105 H CALCIUM (BEAKER) (test code = 697) 8.7 mg/dL 8.4-10.2 EGFR (BEAKER) (test code = 1092) 72 mL/min/1.73 sq m ESTIMATED GFR IS NOT ACCURATE CREATININE CLEARANCE IN PREDICTING GLOMERULAR FILTRATION RATE. ESTIMATED GFR IS NOT APPLICABLE FOR DIALYSIS PATIENTS. HEPATIC FUNCTION [id number] 06:25:00* Test Item Value Reference Range Interpretation Comments TOTAL PROTEIN (BEAKER) (test code = 770) 6.2 gm/dL 6.0-8.3 Specimen slightly hemolyzed ALBUMIN (BEAKER) (test code = 1145) 3.6 g/dL 3.5-5.0 Specimen slightly hemolyzed BILIRUBIN TOTAL (BEAKER) (test code = 377) 0.3 mg/dL 0.2-1.2 Specimen slightly hemolyzed BILIRUBIN DIRECT (BEAKER) (test code = 706) 0.1 mg/dL 0.1-0.5 Specimen slightly hemolyzed ALKALINE PHOSPHATASE (BEAKER) (test code = 346) 84 U/L 40-150 AST (SGOT) (BEAKER) (test code = 353) 22 U/L 5-34 Specimen slightly hemolyzed ALT (SGPT) (BEAKER) (test code = 347) 26 U/L 6-55 Specimen slightly hemolyzed RAD, CHEST, 1 VIEW, NON [id number] 20:40:00Reason for exam:->CHEST PAINShould this be performed at the bedside?->YesFINAL REPORT Chest, 1 view. History: Chest pain Comparison: Plain radiograph the chest dated 12/07/2018.. Findings: Low lung volumes. Prominent pulmonary vasculature and coarse interstitial lung markings favored to reflect pulmonary vascular congestion and interstitial pulmonary edema. The Cardiomediastinal silhouette is exaggerated by technique. Bandlike airspace opacities likely reflection of atelectasis in aforementioned interstitial edema however superimposed infection should be excluded clinically. No large pleural effusion or pneumothorax. Postsurgical changes of median sternotomy. Postsurgical changes of an anterior instrument cervical spinal fusion. Signed: Jacklyn Huang Verified Date/Time: 12/25/2018 20:40:59 B-TYPE NATRIURETIC FACTOR (BNP) 2018-12-25 20:26:00* Test Item Value Reference Range Interpretation Comments B-TYPE NATRIURETIC PEPTIDE (ZURI) (test code = 700) < pg/mL 0-100 [id number] 20:25:00* Test Item Value Reference Range Interpretation Comments D-Dimer, Quant (test code = 21278-4) 0.32 <0.50 MG/L FEU JOSE (test code = JOSE) Intended Use: The D-Dimer As say can be used to aid in the diagnosis of Deep Vein Thrombosis (DVT) and Pulmonary Embolism Disease (PED).In patients with low pre-test probability, various studies concerning STA Liatest D-dimer test have reported that with a cutoff value of 0.50 MG/L FEU, the Negative Predictive Value (NPV) regarding the exclusion of thrombosis is within 95-100% range. Lab Interpretation (test code = 63806-0) [facility] [id number] 20:25:00* Test Item Value Reference Range Interpretation Comments TROPONIN I (ZURI) (test code = 397) < ng/mL 0.00-0.03 Troponin I (TnI) levels must be interpreted in the context of the presenting sym ptoms and the clinical findings. Elevated TnI levels indicate myocardial damage, but are not specific for ischemic heart disease. Elevated TnI levels are seen in patients with other cardiac conditions (including myocarditis and congestive h eart failure), and slight TnI elevations occur in patients with other conditions , including sepsis, renal failure, acidosis, acute neurological disease, and per sistent tachyarrhythmia.[id number] 20:25:00* Test Item Value Reference Range Interpretation Comments D-DIMER QUANTITATIVE (ZURI) (test code = 671) 0.32 MG/L FEU <0.50 Intended Use: The D-Dimer Assay can be used to aid in the diagnosis of Deep Vein Thrombosis (DVT) and Pulmonary Embolism Disease (PED).In patients with low pre- test probability, various studies concerning STA Liatest D-dimer test have repor jon that with a cutoff value of 0.50 MG/L FEU, the Negative Predictive Value (TIN ASSORTER V) regarding the exclusion of thrombosis is within 95-100% range.BASIC METABOLIC [id number] 20:16:00* Test Item Value Reference Range Interpretation Comments SODIUM (BEAKER) (test code = 381) 139 meq/L 136-145 POTASSIUM (BEAKER) (test code = 379) 3.5 meq/L 3.5-5.1 CHLORIDE (BEAKER) (test code = 382) 104 meq/L 98-107 CO2 (BEAKER) (test code = 355) 25 meq/L 22-29 BLOOD UREA NITROGEN (BEAKER) (test code = 354) 16 mg/dL 7-21 CREATININE (BEAKER) (test code = 358) 1.34 mg/dL 0.57-1.25 H GLUCOSE RANDOM (BEAKER) (test code = 652) 215 mg/dL 70-105 H CALCIUM (BEAKER) (test code = 697) 9.5 mg/dL 8.4-10.2 EGFR (BEAKER) (test code = 1092) 57 mL/min/1.73 sq m ESTIMATED GFR IS NOT ACCURATE CREATININE CLEARANCE IN PREDICTING GLOMERULAR FILTRATION RATE. ESTIMATED GFR IS NOT APPLICABLE FOR DIALYSIS PATIENTS. CBC W/PLT COUNT & AUTO [id number] 20:02:00* Test Item Value Reference Range Interpretation Comments WHITE BLOOD CELL COUNT (BEAKER) (test code = 775) 6.5 K/ L 3.5- 10.5 RED BLOOD CELL COUNT (BEAKER) (test code = 761) 4.67 M/ L 4.63-6 .08 HEMOGLOBIN (BEAKER) (test code = 410) 14.1 GM/DL 13.7-17.5 HEMATOCRIT (BEAKER) (test code = 411) 41.9 % 40.1-51.0 MEAN CORPUSCULAR VOLUME (BEAKER) (test code = 753) 89.7 fL 79. 0-92.2 MEAN CORPUSCULAR HEMOGLOBIN (BEAKER) (test code = 751) 30.2 pg 25.7-32.2 MEAN CORPUSCULAR HEMOGLOBIN CONC (BEAKER) (test code = 752) 33.7 GM/DL 32.3-36.5 RED CELL DISTRIBUTION WIDTH (BEAKER) (test code = 412) 14.0 % 11.6-14.4 PLATELET COUNT (BEAKER) (test code = 756) 208 K/CU MM 150-450 MEAN PLATELET VOLUME (BEAKER) (test code = 754) 9.6 fL 9.4-12 .4 NUCLEATED RED BLOOD CELLS (BEAKER) (test code = 413) 0 /100 WBC 0 -0 NEUTROPHILS RELATIVE PERCENT (BEAKER) (test code = 429) 56 % LYMPHOCYTES RELATIVE PERCENT (BEAKER) (test code = 430) 33 % MONOCYTES RELATIVE PERCENT (BEAKER) (test code = 431) 8 % EOSINOPHILS RELATIVE PERCENT (BEAKER) (test code = 432) 2 % BASOPHILS RELATIVE PERCENT (BEAKER) (test code = 437) 1 % NEUTROPHILS ABSOLUTE COUNT (BEAKER) (test code = 670) 3.60 K/ L 1.78-5.38 LYMPHOCYTES ABSOLUTE COUNT (BEAKER) (test code = 414) 2.16 K/ L 1.32-3.57 MONOCYTES ABSOLUTE COUNT (BEAKER) (test code = 415) 0.49 K/ L 0. 30-0.82 EOSINOPHILS ABSOLUTE COUNT (BEAKER) (test code = 416) 0.14 K/ L 0.04-0.54 BASOPHILS ABSOLUTE COUNT (BEAKER) (test code = 417) 0.03 K/ L 0. 01-0.08 IMMATURE GRANULOCYTES-RELATIVE PERCENT (BEAKER) (test code = 2801) 1 % 0-1 POCT-GLUCOSE [id number] 17:55:00* Test Item Value Reference Range Interpretation Comments POC-GLUCOSE METER (BEAKER) (test code = 1538) 353 mg/dL 70-110 H : TESTED AT [address], [address]: Remote Sensing Scientist/Ambulatory Care Coordinator ID = [id number] for LEE, FRANTZ POCT-GLUCOSE [id number] 11:40:00* Test Item Value Reference Range Interpretation Comments POC-GLUCOSE METER (BEAKER) (test code = 1538) 196 mg/dL 70-110 H : TESTED AT [address], [address]: Remote Sensing Scientist/Ambulatory Care Coordinator ID = [id number] for LEE, FRANTZ POCT-GLUCOSE [id number] 23:38:00* Test Item Value Reference Range Interpretation Comments POC-GLUCOSE METER (BEAKER) (test code = 1538) 213 mg/dL 70-110 H : TESTED AT [address], [address]: Remote Sensing Scientist/Ambulatory Care Coordinator ID = [id number] for JAI CLEMENTS CBC W/PLT COUNT & AUTO [id number] 06:50:00* Test Item Value Reference Range Interpretation Comments WHITE BLOOD CELL COUNT (BEAKER) (test code = 775) 4.9 K/ L 3.5- 10.5 RED BLOOD CELL COUNT (BEAKER) (test code = 761) 4.65 M/ L 4.63-6 .08 HEMOGLOBIN (BEAKER) (test code = 410) 14.1 GM/DL 13.7-17.5 HEMATOCRIT (BEAKER) (test code = 411) 44.1 % 40.1-51.0 MEAN CORPUSCULAR VOLUME (BEAKER) (test code = 753) 94.8 fL 79. 0-92.2 H MEAN CORPUSCULAR HEMOGLOBIN (BEAKER) (test code = 751) 30.3 pg 25.7-32.2 MEAN CORPUSCULAR HEMOGLOBIN CONC (BEAKER) (test code = 752) 32.0 GM/DL 32.3-36.5 L RED CELL DISTRIBUTION WIDTH (BEAKER) (test code = 412) 14.0 % 11.6-14.4 PLATELET COUNT (BEAKER) (test code = 756) 170 K/CU MM 150-450 MEAN PLATELET VOLUME (BEAKER) (test code = 754) 9.8 fL 9.4-12 .4 NUCLEATED RED BLOOD CELLS (BEAKER) (test code = 413) 0 /100 WBC 0 -0 NEUTROPHILS RELATIVE PERCENT (BEAKER) (test code = 429) 55 % LYMPHOCYTES RELATIVE PERCENT (BEAKER) (test code = 430) 30 % MONOCYTES RELATIVE PERCENT (BEAKER) (test code = 431) 10 % EOSINOPHILS RELATIVE PERCENT (BEAKER) (test code = 432) 3 % BASOPHILS RELATIVE PERCENT (BEAKER) (test code = 437) 1 % NEUTROPHILS ABSOLUTE COUNT (BEAKER) (test code = 670) 2.68 K/ L 1.78-5.38 LYMPHOCYTES ABSOLUTE COUNT (BEAKER) (test code = 414) 1.47 K/ L 1.32-3.57 MONOCYTES ABSOLUTE COUNT (BEAKER) (test code = 415) 0.51 K/ L 0. 30-0.82 EOSINOPHILS ABSOLUTE COUNT (BEAKER) (test code = 416) 0.16 K/ L 0.04-0.54 BASOPHILS ABSOLUTE COUNT (BEAKER) (test code = 417) 0.04 K/ L 0. 01-0.08 IMMATURE GRANULOCYTES-RELATIVE PERCENT (BEAKER) (test code = 2801) 1 % 0-1 POCT-GLUCOSE [id number] 22:47:00* Test Item Value Reference Range Interpretation Comments POC-GLUCOSE METER (BEAKER) (test code = 1538) 150 mg/dL 70-[address] [facility] [address] [facility] [address] Lipid [id number] 05:26:00* Test Item Value Reference Range Interpretation Comments Triglycerides (test code = 2571-8) 329 mg/dL Cholesterol (test code = 2093-3) 168 mg/dL HDL (test code = 2085-9) 24 mg/dL LDL Calculated (test code = 23968-1) 78 mg/dL JOSE (test code = JOSE) Triglyceride Reference Range : Low Risk <150 Borderline 150-199 High Risk 200-499 Very High Risk >=500 Cholesterol Reference Range: Low Risk <200 Borderline 200-239 High Risk >240 HDL Cholesterol Reference Range: Low Risk >=60 High Risk <40 LDL Cholesterol Reference Range: Optimal <100 Near Optimal 100-129 Borderline 130-159 High 160-189 Very High >=190 [id number] 05:26[facility]* Test Item Value Reference Range Interpretation Comments MAGNESIUM (BEAKER) (test code = 627) 1.9 mg/dL 1.6-2.6 BASIC METABOLIC [id number] 05:26:00* Test Item Value Reference Range Interpretation Comments SODIUM (BEAKER) (test code = 381) 139 meq/L 136-145 POTASSIUM (BEAKER) (test code = 379) 3.9 meq/L 3.5-5.1 CHLORIDE (BEAKER) (test code = 382) 109 meq/L 98-107 H CO2 (BEAKER) (test code = 355) 24 meq/L 22-29 BLOOD UREA NITROGEN (BEAKER) (test code = 354) 8 mg/dL 7-21 CREATININE (BEAKER) (test code = 358) 0.94 mg/dL 0.57-1.25 GLUCOSE RANDOM (BEAKER) (test code = 652) 204 mg/dL 70-105 H CALCIUM (BEAKER) (test code = 697) 8.6 mg/dL 8.4-10.2 EGFR (BEAKER) (test code = 1092) 86 mL/min/1.73 sq m ESTIMATED GFR IS NOT ACCURATE CREATININE CLEARANCE IN PREDICTING GLOMERULAR FILTRATION RATE. ESTIMATED GFR IS NOT APPLICABLE FOR DIALYSIS PATIENTS. LIPID [id number] 05:26:00* Test Item Value Reference Range Interpretation Comments TRIGLYCERIDES (BEAKER) (test code = 540) 329 mg/dL CHOLESTEROL (BEAKER) (test code = 631) 168 mg/dL HDL CHOLESTEROL (BEAKER) (test code = 976) 24 mg/dL LDL CHOLESTEROL CALCULATED (BEAKER) (test code = 633) 78 mg/dL Triglyceride Reference Range: Low Risk <150 Borderline 150-199 High Risk 200-499 Very High Risk >=500Cholesterol Reference Range: Low Risk <200 Borderline 200-239 High Risk >240HDL Cholesterol Reference Range: Low Risk >=60 High Risk <40LDL Cholesterol Reference Range: Optimal <100 Near Optimal 100-129 Borderline 130-159 High 160-189 Very High >=190 TROPONIN [id number] 05:24:00* Test Item Value Reference Range Interpretation Comments TROPONIN I (BEAKER) (test code = 397) < ng/mL 0.00-0.03 Troponin I (TnI) levels must be interpreted in the context of the presenting sym ptoms and the clinical findings. Elevated TnI levels indicate myocardial damage, but are not specific for ischemic heart disease. Elevated TnI levels are seen in patients with other cardiac conditions (including myocarditis and congestive h eart failure), and slight TnI elevations occur in patients with other conditions , including sepsis, renal failure, acidosis, acute neurological disease, and per sistent tachyarrhythmia.CBC W/PLT COUNT & AUTO [id number] 05:10:00* Test Item Value Reference Range Interpretation Comments WHITE BLOOD CELL COUNT (BEAKER) (test code = 775) 4.6 K/ L 3.5- 10.5 RED BLOOD CELL COUNT (BEAKER) (test code = 761) 4.29 M/ L 4.63-6 .08 L HEMOGLOBIN (BEAKER) (test code = 410) 13.2 GM/DL 13.7-17.5 L HEMATOCRIT (BEAKER) (test code = 411) 40.3 % 40.1-51.0 MEAN CORPUSCULAR VOLUME (BEAKER) (test code = 753) 93.9 fL 79. 0-92.2 H MEAN CORPUSCULAR HEMOGLOBIN (BEAKER) (test code = 751) 30.8 pg 25.7-32.2 MEAN CORPUSCULAR HEMOGLOBIN CONC (BEAKER) (test code = 752) 32.8 GM/DL 32.3-36.5 RED CELL DISTRIBUTION WIDTH (BEAKER) (test code = 412) 14.3 % 11.6-14.4 PLATELET COUNT (BEAKER) (test code = 756) 176 K/CU MM 150-450 MEAN PLATELET VOLUME (BEAKER) (test code = 754) 9.6 fL 9.4-12 .4 NUCLEATED RED BLOOD CELLS (BEAKER) (test code = 413) 0 /100 WBC 0 -0 NEUTROPHILS RELATIVE PERCENT (BEAKER) (test code = 429) 49 % LYMPHOCYTES RELATIVE PERCENT (BEAKER) (test code = 430) 36 % MONOCYTES RELATIVE PERCENT (BEAKER) (test code = 431) 10 % EOSINOPHILS RELATIVE PERCENT (BEAKER) (test code = 432) 2 % BASOPHILS RELATIVE PERCENT (BEAKER) (test code = 437) 1 % NEUTROPHILS ABSOLUTE COUNT (BEAKER) (test code = 670) 2.26 K/ L 1.78-5.38 LYMPHOCYTES ABSOLUTE COUNT (BEAKER) (test code = 414) 1.68 K/ L 1.32-3.57 MONOCYTES ABSOLUTE COUNT (BEAKER) (test code = 415) 0.47 K/ L 0. 30-0.82 EOSINOPHILS ABSOLUTE COUNT (BEAKER) (test code = 416) 0.11 K/ L 0.04-0.54 BASOPHILS ABSOLUTE COUNT (BEAKER) (test code = 417) 0.03 K/ L 0. 01-0.08 IMMATURE GRANULOCYTES-RELATIVE PERCENT (BEAKER) (test code = 2801) 1 % 0-1 TROPONIN [id number] 02:00:00* Test Item Value Reference Range Interpretation Comments TROPONIN I (BEAKER) (test code = 397) < ng/mL 0.00-0.03 Troponin I (TnI) levels must be interpreted in the context of the presenting sym ptoms and the clinical findings. Elevated TnI levels indicate myocardial damage, but are not specific for ischemic heart disease. Elevated TnI levels are seen in patients with other cardiac conditions (including myocarditis and congestive h eart failure), and slight TnI elevations occur in patients with other conditions , including sepsis, renal failure, acidosis, acute neurological disease, and per sistent tachyarrhythmia.POCT-GLUCOSE [id number] 00:24:00* Test Item Value Reference Range Interpretation Comments POC-GLUCOSE METER (BEAKER) (test code = 1538) 155 mg/dL 70-[address] [facility] [address] [facility] [address] B-TYPE NATRIURETIC FACTOR (BNP)2018-12-07 20:37:00* Test Item Value Reference Range Interpretation Comments B-TYPE NATRIURETIC PEPTIDE (BEAKER) (test code = 700) 44 pg/mL 0-100 TROPONIN [id number] 20:36:00* Test Item Value Reference Range Interpretation Comments TROPONIN I (BEAKER) (test code = 397) < ng/mL 0.00-0.03 Troponin I (TnI) levels must be interpreted in the context of the presenting sym ptoms and the clinical findings. Elevated TnI levels indicate myocardial damage, but are not specific for ischemic heart disease. Elevated TnI levels are seen in patients with other cardiac conditions (including myocarditis and congestive h eart failure), and slight TnI elevations occur in patients with other conditions , including sepsis, renal failure, acidosis, acute neurological disease, and per sistent tachyarrhythmia.[id number] 20:29:00* Test Item Value Reference Range Interpretation Comments MAGNESIUM (BEAKER) (test code = 627) 1.7 mg/dL 1.6-2.6 BASIC METABOLIC [id number] 20:29:00* Test Item Value Reference Range Interpretation Comments SODIUM (BEAKER) (test code = 381) 139 meq/L 136-145 POTASSIUM (BEAKER) (test code = 379) 3.4 meq/L 3.5-5.1 L CHLORIDE (BEAKER) (test code = 382) 107 meq/L 98-107 CO2 (BEAKER) (test code = 355) 23 meq/L 22-29 BLOOD UREA NITROGEN (BEAKER) (test code = 354) 8 mg/dL 7-21 CREATININE (BEAKER) (test code = 358) 1.07 mg/dL 0.57-1.25 GLUCOSE RANDOM (BEAKER) (test code = 652) 169 mg/dL 70-105 H CALCIUM (BEAKER) (test code = 697) 9.4 mg/dL 8.4-10.2 EGFR (BEAKER) (test code = 1092) 74 mL/min/1.73 sq m ESTIMATED GFR IS NOT ACCURATE CREATININE CLEARANCE IN PREDICTING GLOMERULAR FILTRATION RATE. ESTIMATED GFR IS NOT APPLICABLE FOR DIALYSIS PATIENTS. PT/[id number] 20:18:00* Test Item Value Reference Range Interpretation Comments Protime (test code = 5902-2) 13.1 11.9- 14.2 seconds INR (test code = 6301-6) 1.0 <=5.9 PTT (test code = 23172-9) 28.6 22.5- 36.0 seconds JOSE (test code = JOSE) Effective 07/16/2018: PT Refe rence Range ChangeNew: 11.9- 14.2 Previous: 11.7-14.7 RECOMMENDED COUMADIN/WARFARIN INR THERAPY RANGESSTANDARD DOSE: 2.0-3.0 Includes: PROPHYLAXIS for venous thrombosis, sys temic embolization; TREATMENT for venous thrombosis and/or pulmonary embolus.HIGH RISK: Target INR is 2.5-3.5 for patients wiht mechanical heart valves. Lab Interpretation (test code = 47146-1) [id number] 20:18:00* Test Item Value Reference Range Interpretation Comments PROTIME (BEAKER) (test code = 759) 13.1 seconds 11.9-14.2 INR (BEAKER) (test code = 370) 1.0 <=5.9 PARTIAL THROMBOPLASTIN TIME (BEAKER) (test code = 760) 28.6 seconds 22.5-36.0 Effective 07/16/2018: PT Reference Range ChangeNew: 11.9-14.2 Previous: 11.7-14. 7RECOMMENDED COUMADIN/WARFARIN INR THERAPY RANGESSTANDARD DOSE: 2.0-3.0 Include s: PROPHYLAXIS for venous thrombosis, systemic embolization; TREATMENT for venou s thrombosis and/or pulmonary embolus.HIGH RISK: Target INR is 2.5-3.5 for patie nts wiht mechanical heart valves.RAD, CHEST, 1 VIEW, NON [id number] 20:10:00 Reason for exam:->sobShould this be performed at the bedside?->NoFINAL REPORT History: Shortness of breath. Comparison: 11/30/2018 Findings: A single view of the chest is submitted. The cardiac silhouette is within normal limits for size. Sternotomy wires and fasteners are in place. There is central vascular engorgement. Perihilar interstitial opacification and patchy infrahilar airspace opacity suggests pulmonary edema. There is no p neumothorax, large pleural effusion or acute bony abnormality. Cervical fusion h ardware is in place. Signed: Dalia Montero MDReport Verified Date/Time: 019 20:10:44 W/PLT COUNT & AUTO [id number] 20:08:00* Test Item Value Reference Range Interpretation Comments WHITE BLOOD CELL COUNT (BEAKER) (test code = 775) 6.3 K/ L 3.5- 10.5 RED BLOOD CELL COUNT (BEAKER) (test code = 761) 4.66 M/ L 4.63-6 .08 HEMOGLOBIN (BEAKER) (test code = 410) 14.3 GM/DL 13.7-17.5 HEMATOCRIT (BEAKER) (test code = 411) 42.8 % 40.1-51.0 MEAN CORPUSCULAR VOLUME (BEAKER) (test code = 753) 91.8 fL 79. 0-92.2 MEAN CORPUSCULAR HEMOGLOBIN (BEAKER) (test code = 751) 30.7 pg 25.7-32.2 MEAN CORPUSCULAR HEMOGLOBIN CONC (BEAKER) (test code = 752) 33.4 GM/DL 32.3-36.5 RED CELL DISTRIBUTION WIDTH (BEAKER) (test code = 412) 14.1 % 11.6-14.4 PLATELET COUNT (BEAKER) (test code = 756) 204 K/CU MM 150-450 MEAN PLATELET VOLUME (BEAKER) (test code = 754) 9.5 fL 9.4-12 .4 NUCLEATED RED BLOOD CELLS (BEAKER) (test code = 413) 0 /100 WBC 0 -0 NEUTROPHILS RELATIVE PERCENT (BEAKER) (test code = 429) 59 % LYMPHOCYTES RELATIVE PERCENT (BEAKER) (test code = 430) 29 % MONOCYTES RELATIVE PERCENT (BEAKER) (test code = 431) 9 % EOSINOPHILS RELATIVE PERCENT (BEAKER) (test code = 432) 2 % BASOPHILS RELATIVE PERCENT (BEAKER) (test code = 437) 1 % NEUTROPHILS ABSOLUTE COUNT (BEAKER) (test code = 670) 3.71 K/ L 1.78-5.38 LYMPHOCYTES ABSOLUTE COUNT (BEAKER) (test code = 414) 1.83 K/ L 1.32-3.57 MONOCYTES ABSOLUTE COUNT (BEAKER) (test code = 415) 0.53 K/ L 0. 30-0.82 EOSINOPHILS ABSOLUTE COUNT (BEAKER) (test code = 416) 0.10 K/ L 0.04-0.54 BASOPHILS ABSOLUTE COUNT (BEAKER) (test code = 417) 0.03 K/ L 0. 01-0.08 IMMATURE GRANULOCYTES-RELATIVE PERCENT (BEAKER) (test code = 2801) 1 % 0-1 TROPONIN [id number] 10:49:00* Test Item Value Reference Range Interpretation Comments TROPONIN I (BEAKER) (test code = 397) < ng/mL 0.00-0.03 Troponin I (TnI) levels must be interpreted in the context of the presenting sym ptoms and the clinical findings. Elevated TnI levels indicate myocardial damage, but are not specific for ischemic heart disease. Elevated TnI levels are seen in patients with other cardiac conditions (including myocarditis and congestive h eart failure), and slight TnI elevations occur in patients with other conditions , including sepsis, renal failure, acidosis, acute neurological disease, and per sistent tachyarrhythmia.Hemoglobin [id number] 07:54:00* Test Item Value Reference Range Interpretation Comments Hemoglobin A1C (test code = 4548-4) 7.6 % 4.3-6.1 H Lab Interpretation (test code = 26941-9) [facility]normal [facility] T[facility] If [id number] 07:54:00* Test Item Value Reference Range Interpretation Comments TSH (test code = 14662-7) 0.60 0.35- 4.94 uIU/mL Lab Interpretation (test code = 10592-5) Normal [facility] [id number] 07:54:00* Test Item Value Reference Range Interpretation Comments HEMOGLOBIN A1C (BEAKER) (test code = 368) 7.6 % 4.3-6.1 H TSH/FREE T4 IF [id number] 07:54:00* Test Item Value Reference Range Interpretation Comments THYROID STIMULATING HORMONE (BEAKER) (test code = 772) 0.60 uIU/mL 0.35-4.94 BASIC METABOLIC [id number] 06:43:00* Test Item Value Reference Range Interpretation Comments SODIUM (BEAKER) (test code = 381) 132 meq/L 136-145 L POTASSIUM (BEAKER) (test code = 379) 4.2 meq/L 3.5-5.1 CHLORIDE (BEAKER) (test code = 382) 98 meq/L 98-107 CO2 (BEAKER) (test code = 355) 24 meq/L 22-29 BLOOD UREA NITROGEN (BEAKER) (test code = 354) 19 mg/dL 7-21 CREATININE (BEAKER) (test code = 358) 1.58 mg/dL 0.57-1.25 H GLUCOSE RANDOM (BEAKER) (test code = 652) 385 mg/dL 70-105 H CALCIUM (BEAKER) (test code = 697) 8.8 mg/dL 8.4-10.2 EGFR (BEAKER) (test code = 1092) 47 mL/min/1.73 sq m ESTIMATED GFR IS NOT ACCURATE CREATININE CLEARANCE IN PREDICTING GLOMERULAR FILTRATION RATE. ESTIMATED GFR IS NOT APPLICABLE FOR DIALYSIS PATIENTS. TROPONIN [id number] 06:27:00* Test Item Value Reference Range Interpretation Comments TROPONIN I (BEAKER) (test code = 397) < ng/mL 0.00-0.03 Troponin I (TnI) levels must be interpreted in the context of the presenting sym ptoms and the clinical findings. Elevated TnI levels indicate myocardial damage, but are not specific for ischemic heart disease. Elevated TnI levels are seen in patients with other cardiac conditions (including myocarditis and congestive h eart failure), and slight TnI elevations occur in patients with other conditions , including sepsis, renal failure, acidosis, acute neurological disease, and per sistent tachyarrhythmia.CBC W/PLT COUNT & AUTO [id number] 04:55:00* Test Item Value Reference Range Interpretation Comments WHITE BLOOD CELL COUNT (BEAKER) (test code = 775) 5.2 K/ L 3.5- 10.5 RED BLOOD CELL COUNT (BEAKER) (test code = 761) 4.48 M/ L 4.63-6 .08 L HEMOGLOBIN (BEAKER) (test code = 410) 13.7 GM/DL 13.7-17.5 HEMATOCRIT (BEAKER) (test code = 411) 41.0 % 40.1-51.0 MEAN CORPUSCULAR VOLUME (BEAKER) (test code = 753) 91.5 fL 79. 0-92.2 MEAN CORPUSCULAR HEMOGLOBIN (BEAKER) (test code = 751) 30.6 pg 25.7-32.2 MEAN CORPUSCULAR HEMOGLOBIN CONC (BEAKER) (test code = 752) 33.4 GM/DL 32.3-36.5 RED CELL DISTRIBUTION WIDTH (BEAKER) (test code = 412) 14.1 % 11.6-14.4 PLATELET COUNT (BEAKER) (test code = 756) 192 K/CU MM 150-450 MEAN PLATELET VOLUME (BEAKER) (test code = 754) 9.8 fL 9.4-12 .4 NUCLEATED RED BLOOD CELLS (BEAKER) (test code = 413) 0 /100 WBC 0 -0 NEUTROPHILS RELATIVE PERCENT (BEAKER) (test code = 429) 84 % LYMPHOCYTES RELATIVE PERCENT (BEAKER) (test code = 430) 13 % MONOCYTES RELATIVE PERCENT (BEAKER) (test code = 431) 2 % EOSINOPHILS RELATIVE PERCENT (BEAKER) (test code = 432) 1 % BASOPHILS RELATIVE PERCENT (BEAKER) (test code = 437) 0 % NEUTROPHILS ABSOLUTE COUNT (BEAKER) (test code = 670) 4.38 K/ L 1.78-5.38 LYMPHOCYTES ABSOLUTE COUNT (BEAKER) (test code = 414) 0.68 K/ L 1.32-3.57 L MONOCYTES ABSOLUTE COUNT (BEAKER) (test code = 415) 0.10 K/ L 0. 30-0.82 L EOSINOPHILS ABSOLUTE COUNT (BEAKER) (test code = 416) 0.03 K/ L 0.04-0.54 L BASOPHILS ABSOLUTE COUNT (BEAKER) (test code = 417) 0.01 K/ L 0. 01-0.08 IMMATURE GRANULOCYTES-RELATIVE PERCENT (BEAKER) (test code = 2801) 1 % 0-1 RAPID DRUG SCREEN, [id number] 02:53:00* Test Item Value Reference Range Interpretation Comments BARBITURATE URINE (BEAKER) (test code = 725) Negative Negative BENZODIAZEPINE SCREEN URINE (BEAKER) (test code = 726) Negative Negative COCAINE (METAB.) SCREEN (BEAKER) (test code = 1164) Negative Ne gative METHADONE SCREEN (BEAKER) (test code = 1436) Negative Negative OPIATE SCREEN URINE (BEAKER) (test code = 734) Positive Negativ e A CANNABINOID SCREEN URINE (BEAKER) (test code = 727) Negative Ne gative AMPH/METHAMPH SCREEN (BEAKER) (test code = 1438) Negative Negat devonte PHENCYCLIDINE SCREEN URINE (BEAKER) (test code = 608) Negative Negative DRUG CUTOFF CONC.Cocaine 300 ng/mL Cannabinoid 50 ng/mLBenzodiazepine 200 ng/mLBarbiturate 200 ng/mLPh encyclidine 25 ng/mLOpiate 300 ng/mLMethadone 300 ng/mLAmphetamine/ 1000 ng/mL MethamphetamineThis assay provides an unconfirmed qualitative test result for the clinical management of patients in emergency situations. Chain of custody not maintained. Some zuxx-fjc-rnwkvkn me dications, as well as adulterants, may cause inaccurate results. Clinical correl ation should be applied. A more comprehensive drug screen or confirmation of a d etected drug may be performed upon request.Creatinine, random [id number] 02:03:00* Test Item Value Reference Range Interpretation Comments Creatinine, Ur (test code = 2161-8) 49.3 mg/dL JOSE (test code = JOSE) Reference Range: No Normals [facility] random [id number] 02:03:00* Test Item Value Reference Range Interpretation Comments Sodium Urine (test code = 2955-3) 71 meq/L JOSE (test code = JOSE) Reference Range: No Normals [facility]CREATININE, RANDOM [id number] 02:03:00* Test Item Value Reference Range Interpretation Comments CREATININE URINE (BEAKER) (test code = 375) 49.3 mg/dL Reference Range: No NormalsSODIUM, RANDOM [id number] 02:03:00* Test Item Value Reference Range Interpretation Comments SODIUM URINE (BEAKER) (test code = 243) 71 meq/L Reference Range: No [id number] 01:49:00* Test Item Value Reference Range Interpretation Comments MAGNESIUM (BEAKER) (test code = 627) 2.1 mg/dL 1.6-2.6 LIPID [id number] 01:49:00* Test Item Value Reference Range Interpretation Comments TRIGLYCERIDES (BEAKER) (test code = 540) 491 mg/dL CHOLESTEROL (BEAKER) (test code = 631) 166 mg/dL HDL CHOLESTEROL (BEAKER) (test code = 976) 21 mg/dL Calculated LDL not valid if triglyceride >400 mg/dLTriglyceride Reference Range: Low Risk <150 Borderline 150-199 High Risk 200-499 Very High Risk >=500Cholesterol Reference Range: Low Risk <200 Borderline 200-239 High Risk >240HDL Cholesterol Reference Range: Low Risk >=60 High Risk <40LDL Cholesterol Reference Range: Optimal <100 Near Optimal 100-129 Borderline 130-159 High 160-189 Very High >=190 U/S, RENAL, [id number] 01:40:00 Reason for exam:->AKIFINAL REPORT TECHNIQUE: Grayscale ultrasound of the kidneys and bladder. INDICATION: JAQUELINE. COMPARISON: None. FINDINGS: RIGHT KIDNEY: The right kidney measures 13.3 x 6.6 x 7.4 cm. Cortical thickness measures 1.2 cm. No solid mass lesions. No hydronephrosis. Renal artery and vein are patent. LEFT KIDNEY: No left kidney was seen. BLADDER: Unremarkable. IMPRESSION:Unremarkable ultrasound of the right kidney. No left kidney was seen. Signed: [facility] MDR[place] Verified Date/Time: 12/01/2018 01:40:35 renal [id number] 01:40:00Interface, External Ris In - 12/01/2018 4:19 AM CDTFINAL REPORT TECHNIQUE: Grayscale ultrasound of the kidneys and bladder. INDICATION: JAQUELINE. COMPARISON: None. FINDINGS: RIGHT KIDNEY: The right kidney measures 13.3 x 6.6 x 7.4 cm. Cortical thickness measures 1.2 cm. No solid mass lesions. No hydronephrosis. Renal artery and vein are patent. LEFT KIDNEY: No left kidney was seen. BLADDER: Unremarkable. IMPRESSION:Unremarkable ultrasound of the right kidney. No left kidney was seen. Signed: [facility] [facility] Verified Date/Time: 12/01/2018 01:40:35 [facility], [facility], COMPLETE (4 VIEWS), [id number] 23:40:00Reason for exam:->knee painShould this be performed at the bedside?->YesFINAL REPORT CLINICAL HISTORY: knee pain TECHNIQUE: 4 views of the left knee COMPARISON: None IMPRESSION: The bones of the knee are intact without evidence of fracture or dislocation. Ossific fragment adjacent to the medial tibial plateau likely sequela of prior trauma. Small suprapatellar joint effusion. Mild soft tissue prominence about the knee. No radiopaque foreign body . Patellar insertion enthesophyte. Signed: Jacklyn Huang Verified Date/Time: 11/30/2018 23:40:45 knee complete 4 views [id number] 23:40:00 Interface, External Ris In - 11/30/2018 11:42 PM CDTFINAL REPORT PATIENT ID: [id number] CLINICAL HISTORY: knee pain TECHNIQUE: 4 views of the left knee COMPARIS ON: None IMPRESSION: The bones of the knee are intact without evidence of fractu re or dislocation. Ossific fragment adjacent to the medial tibial plateau likely sequela of prior trauma. Small suprapatellar joint effusion. Mild soft tissue p rominence about the knee. No radiopaque foreign body. Patellar insertion entheso phyte. Signed: Jacklyn Huang Verified Date/Time: 11/30/2018 23:4 0:45 [facility], 3 VIEWS, [id number] 23:39:00 Reason for exam:->hand painShould this be performed at the bedside?->YesFINAL REPORT CLINICAL HISTORY: hand pain TECHNIQUE: 3 views of the left hand COMPARISON: None IMPRESSION: Punctate ossific density adjacent to the ulnar styloid, likely sequela of prior trauma however correlate for point tenderness as this remains age indeterminate. Otherwise no acute fracture or malalignment. Scattered degenerative changes, most notably in the IP joints. No radiopaque foreign body. Signed: Jacklyn Huang Verified Date/Ti me: 11/30/2018 23:39:40 hand 3 views [id number] 23:39:00Interface, External Ris In - 11/30/2018 11:41 PM CDTFINAL REPORT CLINICAL HISTORY: hand pain TECHNIQUE: 3 views of the left hand COMPARISON: None IMPRESSION: Punctate ossific density adjacent to the ulnar styloid, likely sequela of prior trauma however correlate for point tenderness as this remains age indeterminate. Otherwise no acute fracture or malalignment. Scattered deg enerative changes, most notably in the IP joints. No radiopaque foreign body. S igned: Jacklyn Huang Verified Date/Time: 11/30/2018 23:39:40 E lectronically signed by: JACKLYN HUANG MD on 11/30/2018 11:39 PM [facility]ST, PA OR AP, 1 [id number] 23:38:00Reason for exam:->chest painShould this be performed at the bedside?->YesFINAL REPORT Chest, 1 view. History: Chest pain Comparison: None available. IMPRESSION: Cardiac mediastinal silhouette is exaggerated by technique. Posterior changes of a median sternotomy with fractured inferior mo st sternotomy wire. Prominent pulmonary vasculature consistent with pulmonary va scular congestion with mild interstitial pulmonary edema. No lobar consolidation or pleural effusion. No pneumothorax. Osseous structures are grossly unremarkab le.Postsurgical changes of an anterior instrumented cervical spinal fusion incom pletely evaluated. Signed: Jacklyn Huang Verified Date/Time: 23:38:17 Electronically signed by: JACKLYN HUANG MD on 11/18 11:38 PM XR chest PA or AP 1 view in [id number] 23:38:00Interface, External Ris In - 11/30/2018 11:40 PM CDTFINAL REPORT Chest, 1 view. History: Chest pain Comparison: None available. IMPRESSION: Cardiac mediastinal silhouette is exaggerated by technique. Posterior changes of a median sternotomy with fractured inferior most sternotomy wire. Prominent pulmonary vasculature consistent with pulmonary vascular congestion with mild interstitial pulmonary edema. No lobar consolidation or pleural effusion. No pne umothorax. Osseous structures are grossly unremarkable.Postsurgical changes of a n anterior instrumented cervical spinal fusion incompletely evaluated. Signed: Jacklyn Moran Verified Date/Time: 11/30/2018 23:38:17 Taty garcia signed by: JACKLYN HUANG MD on 11/30/2018 11:38 PM [facility] SP[facility], LUMBAR, COMPLETE (MIN 4 VIEWS)2018-11-30 23:30:00 Reason for exam:->CHEST PAINReason for exam:->FALLShould this be performed at the bedside?->YesFINAL REPORT CLINICAL HISTORY: CHEST PAINFALL TECHNIQUE: Five views of the lumbar spine. [...] throughout the large bowel. Signed: Jacklyn Huang Verified Date/Time: 11/30/2018 23:30:17 spine lumbar complete 4 views [id number] 23:30:00Interface, External Ris In - 11/30/2018 11:32 PM CDTFINAL REPORT CLINICAL HISTORY: CHEST PAINFALL TECHNIQUE: Five views of the lumbar spine. [...] throughout the large bowel. Signed: Jacklyn Huang Verified Date/Time: 11/30/2018 23:30:17 [facility] RAD, WRIST, RIGHT, COMPLETE (MIN 3 VIEWS)2018-11-30 23:27:00Reason for exam:-> wrist painShould this be performed at the bedside?->YesFINAL REPORT CLINICAL HISTORY: wrist pain TECHNIQUE: 3 views of the right wrist COMPARISON: None IMPRESSION: The bones of the wrist are intact without evidence of fracture or dislocation. Signed: Jacklyn Huang Verified Date/Time: 11/30/2018 23:27:53 wrist complete 3 views min right 2018-11-30 23:27:00Interface, External Ris In - 11/30/2018 11:30 PM CDTFINAL REPORT CLINICAL HISTORY: wrist pain TECHNIQUE: 3 views of the right wrist COMPARISON: None IMPRESSION: The bones of the wrist are intact without evidence of fracture or dislocation. Signed: Jacklyn Huang Verified Date/Time: 11/30/2018 23:27:53 [facility] RAD, HAND, 3 VIEWS, [id number] 23:26:00Reason for exam:->hand painShould this be performed at the bedside?->YesFINAL REPORT CLINICAL HISTORY: hand pain TECHNIQUE: 3 views of the right hand COMPARISON: None IMPRESSION: The bones of the hand are intact without evidence of fracture or dislocation. Punctate radiodensity adjacent to the distal tuft of the first digit, correlate clinically to exclude radiopaque foreign body. Signed: Jacklyn Huang Verified Date/Time: 11/30/2018 23:26:46 hand 3 views [id number] 23:26:00Interface, External Ris In - 11/30/2018 11:29 PM CDTFINAL REPORT CLINICAL HISTORY: hand pain TECHNIQUE: 3 views of the right hand COMPARISON: None IMPRESSION: The bones of the hand are intact without evidence of fracture or dislocation. Punctate radiodensity adjacent to the distal tuft of the first digit, correlate clinically to exclude radiopaque foreign body. Signed: Jacklyn Huang Verified Date/Time: 11/30/2018 23:26:46 [facility] B-TYPE NATRIURETIC FACTOR (BNP)2018-11-30 23:05:00* Test Item Value Reference Range Interpretation Comments B-TYPE NATRIURETIC PEPTIDE (BEAKER) (test code = 700) 14 pg/mL 0-100 TROPONIN [id number] 23:05:00* Test Item Value Reference Range Interpretation Comments TROPONIN I (BEAKER) (test code = 397) < ng/mL 0.00-0.03 Troponin I (TnI) levels must be interpreted in the context of the presenting sym ptoms and the clinical findings. Elevated TnI levels indicate myocardial damage, but are not specific for ischemic heart disease. Elevated TnI levels are seen in patients with other cardiac conditions (including myocarditis and congestive h eart failure), and slight TnI elevations occur in patients with other conditions , including sepsis, renal failure, acidosis, acute neurological disease, and per sistent tachyarrhythmia.BASIC METABOLIC [id number] 22:56:00* Test Item Value Reference Range Interpretation Comments SODIUM (BEAKER) (test code = 381) 134 meq/L 136-145 L POTASSIUM (BEAKER) (test code = 379) 3.4 meq/L 3.5-5.1 L CHLORIDE (BEAKER) (test code = 382) 100 meq/L 98-107 CO2 (BEAKER) (test code = 355) 23 meq/L 22-29 BLOOD UREA NITROGEN (BEAKER) (test code = 354) 17 mg/dL 7-21 CREATININE (BEAKER) (test code = 358) 1.50 mg/dL 0.57-1.25 H GLUCOSE RANDOM (BEAKER) (test code = 652) 177 mg/dL 70-105 H CALCIUM (BEAKER) (test code = 697) 8.8 mg/dL 8.4-10.2 EGFR (BEAKER) (test code = 1092) 50 mL/min/1.73 sq m ESTIMATED GFR IS NOT ACCURATE CREATININE CLEARANCE IN PREDICTING GLOMERULAR FILTRATION RATE. ESTIMATED GFR IS NOT APPLICABLE FOR DIALYSIS PATIENTS. PT/[id number] 22:55:00* Test Item Value Reference Range Interpretation Comments PROTIME (BEAKER) (test code = 759) 13.2 seconds 11.9-14.2 INR (BEAKER) (test code = 370) 1.1 <=5.9 PARTIAL THROMBOPLASTIN TIME (BEAKER) (test code = 760) 30.3 seconds 22.5-36.0 Effective 07/16/2018: PT Reference Range ChangeNew: 11.9-14.2 Previous: 11.7-14. 7RECOMMENDED COUMADIN/WARFARIN INR THERAPY RANGESSTANDARD DOSE: 2.0-3.0 Include s: PROPHYLAXIS for venous thrombosis, systemic embolization; TREATMENT for venou s thrombosis and/or pulmonary embolus.HIGH RISK: Target INR is 2.5-3.5 for patie nts wiht mechanical heart valves.CBC W/PLT COUNT & AUTO [id number] 22:34:00* Test Item Value Reference Range Interpretation Comments WHITE BLOOD CELL COUNT (BEAKER) (test code = 775) 7.1 K/ L 3.5- 10.5 RED BLOOD CELL COUNT (BEAKER) (test code = 761) 4.36 M/ L 4.63-6 .08 L HEMOGLOBIN (BEAKER) (test code = 410) 13.6 GM/DL 13.7-17.5 L HEMATOCRIT (BEAKER) (test code = 411) 40.1 % 40.1-51.0 MEAN CORPUSCULAR VOLUME (BEAKER) (test code = 753) 92.0 fL 79. 0-92.2 MEAN CORPUSCULAR HEMOGLOBIN (BEAKER) (test code = 751) 31.2 pg 25.7-32.2 MEAN CORPUSCULAR HEMOGLOBIN CONC (BEAKER) (test code = 752) 33.9 GM/DL 32.3-36.5 RED CELL DISTRIBUTION WIDTH (BEAKER) (test code = 412) 14.2 % 11.6-14.4 PLATELET COUNT (BEAKER) (test code = 756) 199 K/CU MM 150-450 MEAN PLATELET VOLUME (BEAKER) (test code = 754) 9.4 fL 9.4-12 .4 NUCLEATED RED BLOOD CELLS (BEAKER) (test code = 413) 0 /100 WBC 0 -0 NEUTROPHILS RELATIVE PERCENT (BEAKER) (test code = 429) 64 % LYMPHOCYTES RELATIVE PERCENT (BEAKER) (test code = 430) 26 % MONOCYTES RELATIVE PERCENT (BEAKER) (test code = 431) 8 % EOSINOPHILS RELATIVE PERCENT (BEAKER) (test code = 432) 2 % BASOPHILS RELATIVE PERCENT (BEAKER) (test code = 437) 0 % NEUTROPHILS ABSOLUTE COUNT (BEAKER) (test code = 670) 4.57 K/ L 1.78-5.38 LYMPHOCYTES ABSOLUTE COUNT (BEAKER) (test code = 414) 1.82 K/ L 1.32-3.57 MONOCYTES ABSOLUTE COUNT (BEAKER) (test code = 415) 0.55 K/ L 0. 30-0.82 EOSINOPHILS ABSOLUTE COUNT (BEAKER) (test code = 416) 0.12 K/ L 0.04-0.54 BASOPHILS ABSOLUTE COUNT (BEAKER) (test code = 417) 0.02 K/ L 0. 01-0.08 IMMATURE GRANULOCYTES-RELATIVE PERCENT (BEAKER) (test code = 2801) 1 % 0-1 - CTA ABD PEL W [id number] 22:46:00 Name: ARANZA LOPEZ [facility] : 1970 Age/S: 48 / M [address] [place] [address] Unit #: [id number] Loc: [place] [address] Phys: Coral Fonseca MD Acct: [id number] Dis Date: Status: DIS IN PHONE #: [phone] Exam Date: 09/10/20182121 FAX #: [phone] Reason: dissection protocol Report Has Been Amended EXAMS: CPT CODE: [id number] CTA ABD PEL W CONT [id number] Addendum - 11/20/2018 SIGNED 11/20/2018 ADDENDUM: [id number] CT/CTAAPWCONT TECHNIQUE: Helical imaging was performed after injection of IV contrast, from the chest through the symphysis with multiplanar reformations obtained. Coronal and sagittal as well as 3D Maximum Intensity Projected MIP reconstructions were obtained. IV CONTRAST: 100 mL of Isovue-300 GI CONTRAST: Oral contrast was administered. DLP: 1978 mGy-cm at 2246 Reported and signed by: Joe Tomlin M.D. Report Clinical Indication: dissection protocol Comparison: CTA chest [...] no pleural effusions. There is no pneumothorax. PAGE 1 Signed Report (CONTINUED) Name: ARANZA LOPEZ [facility] Kimberly : 1970 Age/S: 48 / M [address] [place] [address] Unit #: [id number] [place]: [place] [address] Phys: Coral Fonseca MD Acct: [id number] Dis Date: Status: DIS IN PHONE #: [phone] Exam Date: 09/10/20182121 FAX #: [phone] Reason: dissection protocol Report Has Been Amended EXAMS: CPT CODE: [id number] CTA ABD PEL W CONT 27740 <Continued> AIRWAY: The central airway is normal.. LYMPH NODES: No axillary, hilar or mediastinal lymphadenopathy is seen. HEART: The heart is normal in size. There is no pericardial effusion. Mild coronary calcification is present. Sternotomy wires are present. VASCULAR STRUCTURES: The pulmonary arteries and great vessels are unremarkable. The thoracic aorta is within normal limits. The superior vena cava is unremarkable. Mild atherosclerotic calcification affects the thoracic aorta. CT ABDOMEN AND PELVIS WITH CONTRAST: LIVER: Liver is enlarged measuring 27.3 cm in cranial to caudal dimension. The liver parenchyma is normal in appearance without masses or intrahepatic biliary ductal dilatation. The portal vein is normal in caliber. BILIARY TREE: The common bile duct is normal in caliber without evidence of fi lling defects. GALLBLADDER: The gallbladder has been surgically re sected. PANCREAS: The pancreas is unremarkable. The pancreatic derek t is normal in caliber. SPLEEN: The spleen is enlarged measu ring 15.8 cm in cranial to caudal dimension and there are no parenchymal a bnormalities. ADRENALS: The right adrenal gland is unremarkable. The left adrenal gland is unremarkable. KIDNEYS: The kidneys demonstrates normal contrast enhancement. There are no masses. There is no evidence of renal or ureteral calculi. There is no evidence of hydronep hrosis. BOWEL: The visualized portion of the esophagus is unremark able. The stomach is unremarkable. The small bowel is normal in caliber and there is no evidence of masses or obstruction. The colon is normal in caliber without any masses. Moderate amount of stool is seen PAGE 2 Signed Report (CONTINUED) Name: ARANZA BALTAZAR [facility] : 1970 Age/S: 48 / M [address] [place] [address] Blvd Unit #: [id number] L oc: [place] [address] Phys: Coral Fonseca MD Acct: [id number] Dis Date: Status: DIS IN PHONE #: [phone] Exam Date: 09/10/20182121 FAX #: [phone] [place] son: dissection protocol R [place] Has Been Amended EXAMS: CPT CODE: [id number] CTA ABD PEL W CONT 20230 <Continued> throughout the colon. APPENDIX: The appendix is nonvisualized. PELVIS: There are no pelvic masses. The urinary bladder is unremarkable. The prostate and seminal vesicles are unremarkable. PERITONEUM: There is no evidence for free intraperitoneal fluid or air. SOFT TISSUES: The soft tissues are unremarkable. There is no evidence of masses or hernias. LYMPH NODES: There is no evidence of mesenteric, retroperitoneal, or inguinal lymphadenopathy. VASCULATURE: The abdominal aorta is normal in caliber. The branches of the abdominal aorta are widely patent. Splenorenal collateral vessels are present. An infrarenal IVC filter is present. MUSCULOSKELETAL: The visualized bony skeleton is unremarkable. ACDF hardware fusing the cervical spine are partially visualized. IMPRESSION: This study is suboptimal due to poor bolus timing and body habitus. This study is nondiagnostic for evaluating dissection since the contrast phase is in the portal venous phase rather than in the arterial phase. 1. Hepatosplenomegaly. 2. Cholecystectomy. 3. Constipation. SL: ROBEL at 2216 Reported and signed by: Joe Tomlin M.D. PAGE 3 Signed Report (CONTINUED) Name: ARANZA LOPEZ [facility] : 1970 Age/S: 48 / M [address] [place] [address] Unit #: [id number] Loc: [place] [address] Phys: Coral Fonseca MD Acct: [id number] Dis Date: Status: DIS IN PHONE #: [phone] Exam Date: 09/10/20182121 FAX #: [phone] Reason: dissection protocol Report Has Been Amended EXAMS: CPT CODE: [id number] CTA ABD PEL W CONT 21328 <Continued> CC: Deepak Ruby MD; Coral Fonseca MD; Blake Cruz M.D. Technologist:Fanny Kennedy, RT(R) CTDI: DLP: Trnscb Date/Time: 09/10/2018 (2215) [email or web address] Orig Print D/T: S: 09/10/2018 (2218) PAGE 4 Signed Report - CT ANGIO KBNJN4200-15-09 22:46:00 Name: ARANZA LOPEZ [facility] : 1970 Age/S: 48 / M [address] [place] [address] Unit #: [id number] Loc: [place] [address] Phys: Coral Fonseca MD Acct: [id number] Dis Date: Status: DIS IN PHONE #: [phone] Exam Date: 09/10/20182121 FAX #: [phone] Reason: dissection protocol, cp Report Has Been Amended EXAMS: CPT CODE: [id number] CT ANGIO CHEST 12402 Addendum - 11/20/2018 SIGNED 11/20/2018 ADDENDUM: [id number] CT/CTACHWWO TECHNIQUE: Helical imaging was performed after injection of IV contrast, from the chest through the symphysis with multiplanar reformations obtained. Coronal and sagittal as well as 3D Maximum Intensity Projected MIP reconstructions were obtained. IV CONTRAST: 100 mL of Isovue-300 GI CONTRAST: Oral contrast was administered. DLP: 1977 mGy-cm at 2246 Reported and signed by: Joe Tomlin M.D. Report Clinical Indication: dissection protocol Comparison: CTA chest [...] no pleural effusions. There is no pneumothorax. PAGE 1 Signed Report (CONTINUED) Name: ARANZA LOPEZ [facility] : 1970 Age/S: 48 / M [address] [place] [address] Unit #: [id number] Loc: [place] [address] Phys: Coral Fonseca MD Acct: [id number] Dis Date: Status: DIS IN PHONE #: [phone] Exam Date: 09/10/20182121 FAX #: [phone] Reason: dissection protocol, cp Report Has Been Amended EXAMS: CPT CODE: [id number] CT ANGIO CHEST 29150 <Continued> AIRWAY: The central airway is normal.. LYMPH NODES: No axillary, hilar or mediastinal lymphadenopathy is seen. HEART: The heart is normal in size. There is no pericardial effusion. Mild coronary calcification is present. Sternotomy wires are present. VASCULAR STRUCTURES: The pulmonary arteries and great vessels are unremarkable. The thoracic aorta is within normal limits. The superior vena cava is unremarkable. Mild atherosclerotic calcification affects the thoracic aorta. CT ABDOMEN AND PELVIS WITH CONTRAST: LIVER: Liver is enlarged measuring 27.3 cm in cranial to caudal dimension. The liver parenchyma is normal in appearance without masses or intrahepatic biliary ductal dilatation. The portal vein is normal in caliber. BILIARY TREE: The common bile duct is normal in caliber without evidence of fi lling defects. GALLBLADDER: The gallbladder has been surgically re sected. PANCREAS: The pancreas is unremarkable. The pancreatic derek t is normal in caliber. SPLEEN: The spleen is enlarged measu ring 15.8 cm in cranial to caudal dimension and there are no parenchymal a bnormalities. ADRENALS: The right adrenal gland is unremarkable. The left adrenal gland is unremarkable. KIDNEYS: The kidneys demonstrates normal contrast enhancement. There are no masses. There is no evidence of renal or ureteral calculi. There is no evidence of hydronep hrosis. BOWEL: The visualized portion of the esophagus is unremark able. The stomach is unremarkable. The small bowel is normal in caliber and there is no evidence of masses or obstruction. The colon is normal in caliber without any masses. Moderate amount of stool is seen PAGE 2 Signed Report (CONTINUED) Name: ARANZA BALTAZAR [facility] : 1970 Age/S: 48 / M [address] [place] [address] Blvd Unit #: [id number] L oc: [place] [address] Phys: Coral Fonseca MD Acct: [id number] Dis Date: Status: DIS IN PHONE #: [phone] Exam Date: 09/10/20182121 FAX #: [phone] Abby son: dissection protocol, cp R eport Has Been Amended EXAMS: CPT CODE: [id number] CT ANGIO CHEST 00102 <Continued> throughout the colon. APPENDIX: The appendix is nonvisualized. PELVIS: There are no pelvic masses. The urinary bladder is unremarkable. The prostate and seminal vesicles are unremarkable. PERITONEUM: There is no evidence for free intraperitoneal fluid or air. SOFT TISSUES: The soft tissues are unremarkable. There is no evidence of masses or hernias. LYMPH NODES: There is no evidence of mesenteric, retroperitoneal, or inguinal lymphadenopathy. VASCULATURE: The abdominal aorta is normal in caliber. The branches of the abdominal aorta are widely patent. Splenorenal collateral vessels are present. An infrarenal IVC filter is present. MUSCULOSKELETAL: The visualized bony skeleton is unremarkable. ACDF hardware fusing the cervical spine are partially visualized. IMPRESSION: This study is suboptimal due to poor bolus timing and body habitus. This study is nondiagnostic for evaluating dissection since the contrast phase is in the portal venous phase rather than in the arterial phase. 1. Hepatosplenomegaly. 2. Cholecystectomy. 3. Constipation. SL: LANVU-H at 2016 Reported and signed by: Joe Tomlin M.D. PAGE 3 Signed Report (CONTINUED) Name: ARANZA LOPEZ [facility] : 1970 Age/S: 48 / M [address] [place] [address] Unit #: [id number] Loc: [place] [address] Phys: Coral Fonseca MD Acct: [id number] Dis Date: Status: DIS IN PHONE #: [phone] Exam Date: 09/10/20182121 FAX #: [phone] Reason: dissection protocol, cp Report Has Been Amended EXAMS: CPT CODE: [id number] CT ANGIO CHEST 30582 <Continued> CC: Deepak Ruby MD; Coral Fonseca MD; Blake Cruz M.D. Technologist:RT Darell(R) CTDI: DLP: Trnscb Date/Time: 09/10/2018 (2215) [email or web address] Orig Print D/T: S: 09/10/2018 (9723) PAGE 4 Signed Report CARDIAC SFEBYPZ3446-34-52 14:22:00<0.02[facility]annLIPIDS 2018-11-09 14:22:0075[facility]annCARDIAC EUIYHCH2486-47-71 10:34:00<0.02 [facility] NckmhtrIQDQFGZKUP9990-27-94 06:47:00<2.0 (11/09/18 1:47 AM)[facility]annDRUG KHXYHF6255-12-51 06:19:00Negative *NA*(11/09/18 1:19 AM)[facility] COQTYC7469-36-87 06:19:00Negative *NA*(11/09/18 1:19 AM)[facility] WDZEJY6572-82-83 06:19:00Negative *NA*(11/09/18 1:19 AM)[facility]ann[facility] OUKOWB9789-03-02 06:19:00Negative *NA*(11/09/18 1:19 AM)[facility] IAMSTR8447-92-44 06:19:00Negative *NA*(11/09/18 1:19 AM)[facility]annDR[facility] RCTCVI8874-81-48 06:19:00Positive *ABN*(11/09/18 1:19 AM)[facility]ann[facility] BVOKHD8451-98-59 06:19:00Negative *NA*(11/09/18 1:19 AM)[facility]ann[facility] RQUNCP5249-02-13 06:19:00See Note (11/09/18 1:19 AM)[facility] AND YHSRN5292-53-24 06:12:00Light Yellow *NA*(11/09/18 1:12 AM)[facility] XLJUN8838-73-73 06:12:00Clear (11/09/18 1:12 AM)[facility] AND FJTJW5091-51-70 06:12:00* Test Item Value Reference Range Interpretation Comments UA Spec Grav (test code = UA Spec Grav) 1.045 1 [facility] DXJNJ4550-29-67 06:12:00* Test Item Value Reference Range Interpretation Comments UA pH (test code = UA pH) 6.0 1 5.0-8.0 [facility] KVNIS2670-26-49 06:12:00Negative (11/09/18 1:12 AM) [facility] SDZCV8654-88-22 06:12:00Negative *NA*(11/09/18 1:12 AM) [facility] DTLND6885-49-96 06:12:00Negative *NA*(11/09/18 1:12 AM) [facility] JNUBZ3624-27-21 06:12:00Negative (11/09/18 1:12 AM) [facility] NOQIQ1736-44-05 06:12:00<1.0[facility] ATYEI5036-97-49 06:12:00Negative (11/09/18 1:12 AM)[facility] ZNINN0020-77-41 06:12:00Small *ABN*(11/09/18 1:12 AM)[facility] WFOHQ2323-14-50 06:12:00None Seen (11/09/18 1:12 AM)[facility] QGQDI5699-57-56 06:12:006[facility] BCBKR6429-69-96 06:12:001 [facility] JyegimaYHEDDSWSND8974-96-68 02:58:00Negative *NA*(11/08/18 9:58 PM) [facility]annCARDIAC ALPWGCJ9080-83-65 02:38:00<0.02[facility] HermannCHEM YMZBK0940-42-28 02:38:89193Zgnqvicv HermannCHEM BLXUP8975-40-94 02:38:0013 [facility]annCHEM OEBAG9699-29-06 02:38:001.39[facility]annCHEM PANEL 2018-11-09 02:38:62966Qoubvhnk HermannCHEM BGEHM4553-75-08 02:38:003.4[facility] HermannCHEM NALOK8082-25-61 02:38:08828Eoxffjsf HermannCHEM QGYFX3153-23-70 02:38:0028[facility] HermannCHEM TEXAN5683-95-03 02:38:009.0[facility]annCHEM CUQPH0507-42-00 02:38:0060[facility]annCHEM SHRGW0816-97-57 02:38:007.1 [facility]annCHEM OUKUI4987-18-73 02:38:003.7[facility] HermannCHEM PANEL 2018-11-09 02:38:0029[facility] HermannCHEM QMHQT6202-42-89 02:38:0023[facility]annCHEM QIYIS4598-81-49 02:38:0099[facility]annCHEM AWFJR6925-99-69 02:38:000.4[facility]annCHEM ADKVX8341-13-42 02:38:0011.4[facility] HermannCHEM ULAWE7153-99-60 02:38:00* Test Item Value Reference Range Interpretation Comments B/C Ratio (test code = B/C Ratio) 9 1 6-25 [facility]annCHEM LXIUE1096-29-77 02:38:003.4[facility]annCHEM PANEL 2018-11-09 02:38:00* Test Item Value Reference Range Interpretation Comments A/G Ratio (test code = A/G Ratio) 1.1 1 0.7-1.6 [facility] TgpdgtmFTBPMLCSZR7975-51-47 02:38:006.3[facility] HermannHEMATOLOGY 2018-11-09 02:38:004.45[facility] HwrwivlGITYNDKKZY5325-09-74 02:38:0014.2[facility] FpkkkhzHIYVTHMKBD2917-76-75 02:38:0040.1[facility] VwcpxdfQYOPTLRIFJ3556-64-92 02:38:0090.1[facility] XuheedtNXYHJIJQSI8428-83-63 02:38:00* Test Item Value Reference Range Interpretation Comments MCH (test code = MCH) 31.9 pg 27.0-31.0 [facility] UnetlxaJZMJCDZWYL1686-36-71 02:38:0035.4[facility] HermannHEMATOLOGY 2018-11-09 02:38:0015.8[facility] OjhlamlQOPOIGCPOM5784-78-85 02:38:41236Jgpqtyui DeifyjiTISPTTVFYY8115-37-59 02:38:007.4[facility] CabnzrkOWOWYXFDGO0580-64-97 02:38:0054.9[facility] WxllxynNMSVQDSUQR8291-04-58 02:38:0032.4[facility] TVYOWWUJXO1221-98-77 02:38:009.2[facility] ZaeroauEAVUEUBPQJ8789-46-15 02:38:002.6 [facility] PbdehvqKCEMNZXOEZ4862-89-03 02:38:000.9[facility] HermannHEMATOLOGY 2018-11-09 02:38:003.5[facility] FpzwcipPIDUJAFWKS5980-60-74 02:38:002.0[facility] BqezxabUGKSZWUOXS9478-79-03 02:38:000.6[facility] QqkpjmsNYFINDJUQX0094-84-10 02:38:000.2[facility] GvveqreEVQMCIEJDA6870-84-02 02:38:000.1[facility] DDVNTB6647-80-23 02:38:96783Garstwqb YdanyxaYMMVHJ6353-55-62 02:38:79233Kbfjpixa XqrqpdhTIDZQR2892-20-74 02:38:0025[facility] CwmgmnjPMXWND7589-60-50 02:38:00* Test Item Value Reference Range Interpretation Comments CHD Risk (test code = CHD Risk) 7.08 1 4.00-7.30 [facility] MxctdyqCBDOAC4262-05-60 02:38:00See Note 4*NA*(11/08/18 9:38 PM)[facility] DZMQIIYYP5211-56-02 02:38:007.7[facility]annHEMATOLOGY 2018-11-09 01:48:00* Test Item Value Reference Range Interpretation Comments ACT (TEG) Rapid (test code = ACT (TEG) Rapid) 105 s 86-118 [facility] CenterLqgupjaIORTCSBUGH3673-75-59 01:48:00* Test Item Value Reference Range Interpretation Comments Split Point Rapid (test code = Split Point Rapid) 0.4 min [facility] CenterSnknwdjIMOBWAENRA1596-08-53 01:48:00* Test Item Value Reference Range Interpretation Comments R-time Rapid (test code = R-time Rapid) 0.6 min 0.4-0.7 [facility] CenterWzogenjKESXTUDBWU6554-90-82 01:48:00* Test Item Value Reference Range Interpretation Comments K-time Rapid (test code = K-time Rapid) 1.2 min 0.6-2.3 [facility] UllffxaOBWZSFHDLJ1002-23-95 01:48:00* Test Item Value Reference Range Interpretation Comments Angle Rapid (test code = Angle Rapid) 74 degrees 64-80 [facility] TicbcwoZGZZRVNWJW9924-89-15 01:48:00* Test Item Value Reference Range Interpretation Comments Max Amplitude Rapid (test code = Max Amplitude Rapid) 64 mm 52-71 [facility] EvdnkjgJZUJPXVBCA3401-42-42 01:48:008.8[facility]annHEMATOLOGY 2018-11-09 01:48:000.1[facility] HermannCARDIAC JANBXRW3023-41-43 01:25:78730 [facility] JndzeteABRNUZIUAMZO4141-47-91 01:25:0010.3[facility] HermannELECTROLYTES 2018-11-09 01:25:87011Etsptpav VahaqwbKLLWJJMFETUX3832-62-57 01:25:0012[facility] MbtjqivCLCHUSBSJTUG1137-73-75 01:25:001.43[facility] YefsxwrMLWEPITRFZUN3606-99-25 01:25:21822Vcyimgzd CmijkbaOAXSKHLDQKGN0024-27-01 01:25:003.3[facility] SOOOEHNYXSSX4619-14-58 01:25:35188Kvznorrb OrzeesqIVOYLTRKCLID8985-28-27 01:25:0028[facility] JmntkfxANDVIEWBYUKC0584-74-77 01:25:009.0[facility] ESUXCVDMCMSB8844-47-44 01:25:0058[facility] KvdwuprBGIIKFPKUV6631-03-79 01:25:00 6.5[facility] JbyouicVETMOOHCQY1265-21-98 01:25:004.71[facility]annHEMATOLOGY 2018-11-09 01:25:0014.9[facility] UhmlzztYTUGKHIAQO9582-07-42 01:25:0042.5[facility] UviupwbOGZPVDMPZS1606-52-69 01:25:0090.2[facility] VujezxyBJSEIITMBV1156-74-16 01:25:00* Test Item Value Reference Range Interpretation Comments MCH (test code = MCH) 31.7 pg 27.0-31.0 [facility] GjsnbngBRRKBFFOWN4250-78-21 01:25:0035.1[facility] HermannHEMATOLOGY 2018-11-09 01:25:0015.4[facility] IitojmwIQEOUJHJDM0881-76-24 01:25:87497Iesfyjbu BvatpesOASZJPCRGM6634-40-04 01:25:007.6[facility] GvspyiyZDUBZOQQPW3530-33-46 01:25:00* Test Item Value Reference Range Interpretation Comments PT (test code = PT) 12.4 s 12.0-14.7 [facility] PoxsggjWVOMHRKSJP3173-61-54 01:25:00* Test Item Value Reference Range Interpretation Comments INR (test code = INR) 0.94 1 0.85-1.17 [facility] RzgojtuXURADJFRJA3393-96-39 01:25:00* Test Item Value Reference Range Interpretation Comments PTT (test code = PTT) 30.9 s 22.9-35.8 [facility] GeaedqbQERINYNEDD9210-97-75 01:25:0054.6[facility] HermannHEMATOLOGY 2018-11-09 01:25:0032.0[facility] HreimymWHFYWLIUYL0574-09-19 01:25:009.8[facility] ZzdrpdaUBILTEWJKW3129-71-35 01:25:002.7[facility] DxcrfitVVGJFMZHLW3401-46-90 01:25:000.9[facility] CknfbauGAVRLZCHCR8192-67-94 01:25:003.6[facility] WTHNEILRSP1831-37-79 01:25:002.1[facility] NhslqirVWKFCRPVBQ6216-93-87 01:25:000.6 [facility] OgujweyUMWHWHSCJE4155-63-91 01:25:000.2[facility] HermannHEMATOLOGY 2018-11-09 01:25:000.1[facility] HermannB-Type Natriuretic Onkyqvw5779-20-34 21:15:00* Test Item Value Reference Range Interpretation Comments B-Type Natriuretic Peptide (test code = 61334-5) 41.1 0-100 [facility]ennial[facility]ine Kinase FP3126-96-12 21:13:00* Test Item Value Reference Range Interpretation Comments Creatine Kinase MB (test code = 02492-7) 2.00 0-5.0 [facility] CentennialTroponin Z4247-92-71 21:13:00* Test Item Value Reference Range Interpretation Comments Troponin I (test code = IYW6429) 0.008 0-0.300 [facility] Vjloo7408-87-39 21:06:00* Test Item Value Reference Range Interpretation Comments Sodium Level (test code = 2951-2) 137 136-145 [facility]ennialPotassium Fovyy2787-45-02 21:06:00* Test Item Value Reference Range Interpretation Comments Potassium Level (test code = 2823-3) 3.3 3.5-5.1 L [facility] CentennialChloride Phvjh4339-63-86 21:06:00* Test Item Value Reference Range Interpretation Comments Chloride Level (test code = 2075-0) 98 98-107 [facility] CentennialCarbon Dioxide Tayou8558-69-16 21:06:00* Test Item Value Reference Range Interpretation Comments Carbon Dioxide Level (test code = 2028-9) 26 22-29 [facility] CentennialAnion Rkx9883-89-86 21:06:00* Test Item Value Reference Range Interpretation Comments Anion Gap (test code = 12341-8) 16.3 8-16 H [facility] CentennialBlood Urea Bzkobrpf9081-36-28 21:06:00* Test Item Value Reference Range Interpretation Comments Blood Urea Nitrogen (test code = 3094-0) 16 7-26 [facility]ennialCreatinine2019-09-13 21:06:00* Test Item Value Reference Range Interpretation Comments Creatinine (test code = 2160-0) 1.46 0.72-1.25 H [facility] CentennialBUN/Creatinine Nuebv1464-30-44 21:06:00* Test Item Value Reference Range Interpretation Comments BUN/Creatinine Ratio (test code = 3097-3) 11 6-25 [facility] CentennialEstimat Glomerular Filtration Rate 2018-10-31 21:06:00* Test Item Value Reference Range Interpretation Comments Estimat Glomerular Filtration Rate (test code = 381820270) 52 >60 L Ranges were taken from the National Kidney Disease Education Program and the [facility] Foundation literature.Reference ranges:60 or greater: Jgsbot94-22 ( for 3 consecutive months): Chronic kidney disease 15 or less: Kidney failureBaylor Scott & White Medical Center – CentennialGlucose Ltcvf1658-27-23 21:06:00* Test Item Value Reference Range Interpretation Comments Glucose Level (test code = QIF6844) 271 74-118 H [facility] CentennialCalcium Bypbl9822-65-93 21:06:00* Test Item Value Reference Range Interpretation Comments Calcium Level (test code = 67619-8) 9.4 8.4-10.2 [facility] CentennialTotal Jfoibxuhe9202-42-64 21:06:00* Test Item Value Reference Range Interpretation Comments Total Bilirubin (test code = 1975-2) 0.4 0.2-1.2 [facility] CentennialAspartate Amino Transf (AST/SGOT) 2018-10-31 21:06:00* Test Item Value Reference Range Interpretation Comments Aspartate Amino Transf (AST/SGOT) (test code = Aspartate Amino Transf (AST/SGOT)) 28 5-34 [facility] CentennialAlanine Aminotransferase (ALT/SGPT) 2018-10-31 21:06:00* Test Item Value Reference Range Interpretation Comments Alanine Aminotransferase (ALT/SGPT) (test code = 1742-6) 28 0-55 [facility] CentennialTotal Yupjdgp9957-25-95 21:06:00* Test Item Value Reference Range Interpretation Comments Total Protein (test code = 2885-2) 7.1 6.5-8.1 [facility] CentennialAlbumin2019-09-13 21:06:00* Test Item Value Reference Range Interpretation Comments Albumin (test code = 1751-7) 3.8 3.5-5.0 [facility] CentennialGlobulin2019-09-13 21:06:00* Test Item Value Reference Range Interpretation Comments Globulin (test code = 65030-0) 3.3 2.3-3.5 [facility] CentennialAlbumin/Globulin Awhqj5320-58-96 21:06:00 * Test Item Value Reference Range Interpretation Comments Albumin/Globulin Ratio (test code = 1759-0) 1.2 0.8-2.0 [facility] CentennialAlkaline Hmuoynmeygj8879-46-44 21:06:00* Test Item Value Reference Range Interpretation Comments Alkaline Phosphatase (test code = 6768-6) 106 40-150 [facility] CentennialCreatine Oatmuj8066-17-12 21:06:00* Test Item Value Reference Range Interpretation Comments Creatine Kinase (test code = 2157-6) 185 30-200 [facility] CentennialProthrombin Qlkd6974-42-29 20:56:00* Test Item Value Reference Range Interpretation Comments Prothrombin Time (test code = 5902-2) 12.9 11.9-14.5 [facility] CentennialProthromb Time International Ratio 2018-10-31 20:56:00* Test Item Value Reference Range Interpretation Comments Prothromb Time International Ratio (test code = 6301-6) 0.92 Oral Anticoagulant Therapy INR Values:1. Low Intensity Therapy 1.5 - 2.02 . Moderate Intensity Therapy 2.0 - 3.03. High Intensity Therapy(1) 2.5 - 3. 54. High Intensity Therapy(2) 3.0 - 4.05. Panic Value INR > 5.0 [facility] CentennialWhite Blood Ucuir0454-12-42 20:53:00* Test Item Value Reference Range Interpretation Comments White Blood Count (test code = 6690-2) 7.42 4.8-10.8 [facility] CentennialRed Blood Irsjp0026-90-42 20:53:00* Test Item Value Reference Range Interpretation Comments Red Blood Count (test code = 789-8) 4.52 4.3-5.7 [facility] CentennialHemoglobin2019-09-13 20:53:00* Test Item Value Reference Range Interpretation Comments Hemoglobin (test code = 66292-0) 14.1 14.0-18.0 [facility] CentennialHematocrit2019-09-13 20:53:00* Test Item Value Reference Range Interpretation Comments Hematocrit (test code = 4544-3) 40.8 38.2-49.6 [facility] CentennialMean Corpuscular Rixzpa8933-61-45 20:53:00* Test Item Value Reference Range Interpretation Comments Mean Corpuscular Volume (test code = 787-2) 90.3 81-99 [facility] CentennialMean Corpuscular Aopusdpwdo7422-91-69 20:53:00* Test Item Value Reference Range Interpretation Comments Mean Corpuscular Hemoglobin (test code = 785-6) 31.2 28-32 [facility] CentennialMean Corpuscular Hemoglobin Concent 2018-10-31 20:53:00* Test Item Value Reference Range Interpretation Comments Mean Corpuscular Hemoglobin Concent (test code = 786-4) 34.6 31-35 [facility] CentennialRed Cell Distribution Fqkcb4592-70-02 20:53:00* Test Item Value Reference Range Interpretation Comments Red Cell Distribution Width (test code = 14017-7) 14.8 11.7 -14.4 H [facility] CentennialPlatelet Gknbu8864-44-73 20:53:00* Test Item Value Reference Range Interpretation Comments Platelet Count (test code = 777-3) 215 140-360 [facility] CentennialNeutrophils (%) (Auto)2018-10-31 20:53:00 * Test Item Value Reference Range Interpretation Comments Neutrophils (%) (Auto) (test code = 21686-7) 65.1 38.7-80.0 [facility] CentennialLymphocytes (%) (Auto)2018-10-31 20:53:00 * Test Item Value Reference Range Interpretation Comments Lymphocytes (%) (Auto) (test code = 736-9) 23.7 18.0-39.1 [facility] CentennialMonocytes (%) (Auto)2018-10-31 20:53:00* Test Item Value Reference Range Interpretation Comments Monocytes (%) (Auto) (test code = 5905-5) 8.0 4.4-11.3 [facility] CentennialEosinophils (%) (Auto)2018-10-31 20:53:00 * Test Item Value Reference Range Interpretation Comments Eosinophils (%) (Auto) (test code = 713-8) 1.1 0.0-6.0 [facility] CentennialBasophils (%) (Auto)2018-10-31 20:53:00* Test Item Value Reference Range Interpretation Comments Basophils (%) (Auto) (test code = 706-2) 0.5 0.0-1.0 [facility] CentennialIM GRANULOCYTES %2018-10-31 20:53:00* Test Item Value Reference Range Interpretation Comments IM GRANULOCYTES % (test code = IM GRANULOCYTES %) 1.6 0.0- 1.0 H [facility] CentennialNeutrophils # (Auto)2018-10-31 20:53:00* Test Item Value Reference Range Interpretation Comments Neutrophils # (Auto) (test code = 751-8) 4.8 2.1-6.9 [facility] CentennialLymphocytes # (Auto)2018-10-31 20:53:00* Test Item Value Reference Range Interpretation Comments Lymphocytes # (Auto) (test code = 00727-7) 1.8 1.0-3.2 [facility] CentennialMonocytes # (Auto)2018-10-31 20:53:00* Test Item Value Reference Range Interpretation Comments Monocytes # (Auto) (test code = 742-7) 0.6 0.2-0.8 [facility]ennialEosinophils # (Auto)2018-10-31 20:53:00* Test Item Value Reference Range Interpretation Comments Eosinophils # (Auto) (test code = 711-2) 0.1 0.0-0.4 [facility] CentennialBasophils # (Auto)2018-10-31 20:53:00* Test Item Value Reference Range Interpretation Comments Basophils # (Auto) (test code = 704-7) 0.0 0.0-0.1 [facility] CentennialAbsolute Immature Granulocyte (auto 2018-10-31 20:53:00* Test Item Value Reference Range Interpretation Comments Absolute Immature Granulocyte (auto (shahram t code = Absolute Immature Granulocyte (auto) 0.12 0-0.1 H [facility] CentennialCHEST SINGLE (PORTABLE)2018-10-31 20:45:00 [place] [address] Patient Name: ARANZA LOPEZ MR #: [id number] : 1970 Age/Sex: 48/M Req #: [id number] Adm Physician: Ordered by: KOTA DILL DO Report #: [id number] Location: ER Room/Bed: Procedure: [id number] DX/CHES T SINGLE (PORTABLE) Exam Date: 10/31/18 Exam Time: 1 945 REPORT STATUS: Signed EXAMIN ATION: CHEST SINGLE (PORTABLE) INDICATION: ERMD ORDER [id number] 1945 Y COMPARISON: Chest radiograph 10/24/2018 F INDINGS: AP view TUBES and LINES: None. LUNGS: Lungs are well in flated. Bilateral interstitial edema. Bibasilar atelectasis. PLEURA: No pleural effusion or pneumothorax. HEART AND MEDIASTINUM: Prominent card iac silhouette. BONES AND SOFT TISSUES: Intact median sternotomy wires. Fixation of the cervical spine, unchanged. Soft tissues are unremarkable. UPPER ABDOMEN: No free air under the diaphragm. IMPRESSION: Bilate ral interstitial edema and bibasilar atelectasis, slightly decreased when comp ared to prior exam. Signed by: Dr. Marleni Egan M.D. on 10/31 8:46 PM Dictated By: MARLENI EGAN MD Electronically Sig pedro By: MARLENI EGAN MD on 10/31/182045 Transcribed By: ADALBERTO on 10/31/182045 COPY TO: KOTA DILL DO Sodium Wlpyi0121-31-71 22:52:00* Test Item Value Reference Range Interpretation Comments Sodium Level (test code = 2951-2) 134 136-145 L [facility]ennialPotassium Nknjn0124-25-91 22:52:00* Test Item Value Reference Range Interpretation Comments Potassium Level (test code = 2823-3) 3.4 3.5-5.1 L [facility]ennialChloride Qtfpx5156-44-76 22:52:00* Test Item Value Reference Range Interpretation Comments Chloride Level (test code = 2075-0) 96 98-107 L [facility] CentennialCarbon Dioxide Kyfdi2305-60-41 22:52:00* Test Item Value Reference Range Interpretation Comments Carbon Dioxide Level (test code = 2028-9) 24 22-29 [facility] CentennialAnion Nte1995-77-33 22:52:00* Test Item Value Reference Range Interpretation Comments Anion Gap (test code = 46001-2) 17.4 8-16 H [facility] CentennialBlood Urea Ncxxgezb7250-53-88 22:52:00* Test Item Value Reference Range Interpretation Comments Blood Urea Nitrogen (test code = 3094-0) 21 7-26 [facility] CentennialCreatinine2019-09-11 22:52:00* Test Item Value Reference Range Interpretation Comments Creatinine (test code = 2160-0) 1.54 0.72-1.25 H [facility]ennialBUN/Creatinine Ohcjd5284-42-25 22:52:00* Test Item Value Reference Range Interpretation Comments BUN/Creatinine Ratio (test code = 3097-3) 14 6-25 [facility] CentennialEstimat Glomerular Filtration Rate 2018-10-29 22:52:00* Test Item Value Reference Range Interpretation Comments Estimat Glomerular Filtration Rate (test code = 950108547) 48 >60 L Ranges were taken from the National Kidney Disease Education Program and the [facility] Foundation literature.Reference ranges:60 or greater: Uiazfm45-83 ( for 3 consecutive months): Chronic kidney disease 15 or less: Kidney failureBaylor Scott & White Medical Center – CentennialGlucose Kpbgn9325-70-97 22:52:00* Test Item Value Reference Range Interpretation Comments Glucose Level (test code = DBX9019) 185 74-118 H [facility] CentennialCalcium Gbybb3389-69-71 22:52:00* Test Item Value Reference Range Interpretation Comments Calcium Level (test code = 30573-4) 9.1 8.4-10.2 [facility] CentennialTotal Aycufqktc7614-58-00 22:52:00* Test Item Value Reference Range Interpretation Comments Total Bilirubin (test code = 1975-2) 0.5 0.2-1.2 [facility] CentennialAspartate Amino Transf (AST/SGOT) 2018-10-29 22:52:00* Test Item Value Reference Range Interpretation Comments Aspartate Amino Transf (AST/SGOT) (test code = Aspartate Amino Transf (AST/SGOT)) 19 5-34 [facility] CentennialAlanine Aminotransferase (ALT/SGPT) 2018-10-29 22:52:00* Test Item Value Reference Range Interpretation Comments Alanine Aminotransferase (ALT/SGPT) (test code = 1742-6) 27 0-55 [facility] CentennialTotal Inoybvd9476-63-15 22:52:00* Test Item Value Reference Range Interpretation Comments Total Protein (test code = 2885-2) 7.0 6.5-8.1 [facility] CentennialAlbumin2019-09-11 22:52:00* Test Item Value Reference Range Interpretation Comments Albumin (test code = 1751-7) 3.8 3.5-5.0 [facility] CentennialGlobulin2019-09-11 22:52:00* Test Item Value Reference Range Interpretation Comments Globulin (test code = 00516-1) 3.2 2.3-3.5 [facility] CentennialAlbumin/Globulin Gzxgt1134-08-53 22:52:00 * Test Item Value Reference Range Interpretation Comments Albumin/Globulin Ratio (test code = 1759-0) 1.2 0.8-2.0 [facility] CentennialAlkaline Jxlthrwzzqx0720-90-11 22:52:00* Test Item Value Reference Range Interpretation Comments Alkaline Phosphatase (test code = 6768-6) 113 40-150 [facility] CentennialB-Type Natriuretic Ifqjcam5790-46-22 22:52:00* Test Item Value Reference Range Interpretation Comments B-Type Natriuretic Peptide (test code = 42815-5) 16.7 0-100 [facility] CentennialCreatine Xnkwjg2389-99-39 22:52:00* Test Item Value Reference Range Interpretation Comments Creatine Kinase (test code = 2157-6) 164 30-200 [facility] CentennialCreatine Kinase LE3878-46-85 22:52:00* Test Item Value Reference Range Interpretation Comments Creatine Kinase MB (test code = 75128-1) 1.90 0-5.0 [facility] CentennialTroponin U6018-05-63 22:52:00* Test Item Value Reference Range Interpretation Comments Troponin I (test code = XLS6666) < 0.001 0-0.300 [facility] CentennialCHEST SINGLE (PORTABLE)2018-10-29 22:43:00 [place] [address] Patient Name: ARANZA LOPEZ MR #: [id number] : 1970 Age/Sex: 48/M Req #: [id number] Adm Physician: Ordered by: AZAEL HARMAN MD Report #: [id number] Location: ER Room/Bed: Procedure: [id number] DX/CHEST SINGLE (PORTABLE) Exam Date: 10/29/18 Exam Time: 5 REPORT STATUS: Signed EXAMINATION: CHEST SINGLE (PORTABLE) INDICATION: Short of breath COMPARISON: Chest CT 10/23/2018, chest radiograph 10/24/2018 FINDINGS: AP view TUBES and LINES: None. LUNGS: Lungs are well inflated. Central pulmonary vascular prominence. No consolidations. PLEURA: No pleural effusion or pneumothorax. HEART AND MEDIASTINUM: The cardiomediast inal silhouette is unremarkable. BONES AND SOFT TISSUES: No acute osse ous lesion. Soft tissues are unremarkable. Unchanged sternal fixation hardwar e. Partially visualized cervical fixation hardware UPPER ABDOMEN: No free air under the diaphragm. IMPRESSION: Central pulmonary vascular congestion. Signed by: Suleman Muñoz DO on 10/29/2018 10:45 PM Dict ated By: SULEMAN MUÑOZ DO 44 Transcribed By: ADALBERTO on 10/29/182244 COPY TO: AZAEL FLORENCE MD White Blood Qvttx8211-29-43 22:27:00* Test Item Value Reference Range Interpretation Comments White Blood Count (test code = 6690-2) 7.64 4.8-10.8 [facility] CentennialRed Blood Bahyh5663-66-93 22:27:00* Test Item Value Reference Range Interpretation Comments Red Blood Count (test code = 789-8) 4.53 4.3-5.7 [facility] CentennialHemoglobin2019-09-11 22:27:00* Test Item Value Reference Range Interpretation Comments Hemoglobin (test code = 60422-8) 14.1 14.0-18.0 [facility] CentennialHematocrit2019-09-11 22:27:00* Test Item Value Reference Range Interpretation Comments Hematocrit (test code = 4544-3) 39.9 38.2-49.6 [facility] CentennialMean Corpuscular Ibzbea3532-95-51 22:27:00* Test Item Value Reference Range Interpretation Comments Mean Corpuscular Volume (test code = 787-2) 88.1 81-99 [facility] CentennialMean Corpuscular Yeupzvdxxh4135-46-14 22:27:00* Test Item Value Reference Range Interpretation Comments Mean Corpuscular Hemoglobin (test code = 785-6) 31.1 28-32 [facility] Corpuscular Hemoglobin Concent 2018-10-29 22:27:00* Test Item Value Reference Range Interpretation Comments Mean Corpuscular Hemoglobin Concent (test code = 786-4) 35.3 31-35 H [facility] CentennialRed Cell Distribution Byavs8547-20-67 22:27:00* Test Item Value Reference Range Interpretation Comments Red Cell Distribution Width (test code = 08267-6) 14.6 11.7 -14.4 H [facility] CentennialPlatelet Atdlj6541-84-88 22:27:00* Test Item Value Reference Range Interpretation Comments Platelet Count (test code = 777-3) 230 140-360 [facility] CentennialNeutrophils (%) (Auto)2018-10-29 22:27:00 * Test Item Value Reference Range Interpretation Comments Neutrophils (%) (Auto) (test code = 80341-5) 55.1 38.7-80.0 [facility] CentennialLymphocytes (%) (Auto)2018-10-29 22:27:00 * Test Item Value Reference Range Interpretation Comments Lymphocytes (%) (Auto) (test code = 736-9) 32.1 18.0-39.1 [facility] CentennialMonocytes (%) (Auto)2018-10-29 22:27:00* Test Item Value Reference Range Interpretation Comments Monocytes (%) (Auto) (test code = 5905-5) 9.3 4.4-11.3 [facility] CentennialEosinophils (%) (Auto)2018-10-29 22:27:00 * Test Item Value Reference Range Interpretation Comments Eosinophils (%) (Auto) (test code = 713-8) 1.8 0.0-6.0 [facility] CentennialBasophils (%) (Auto)2018-10-29 22:27:00* Test Item Value Reference Range Interpretation Comments Basophils (%) (Auto) (test code = 706-2) 0.5 0.0-1.0 [facility] CentennialIM GRANULOCYTES %2018-10-29 22:27:00* Test Item Value Reference Range Interpretation Comments IM GRANULOCYTES % (test code = IM GRANULOCYTES %) 1.2 0.0- 1.0 H [facility] CentennialNeutrophils # (Auto)2018-10-29 22:27:00* Test Item Value Reference Range Interpretation Comments Neutrophils # (Auto) (test code = 751-8) 4.2 2.1-6.9 [facility] CentennialLymphocytes # (Auto)2018-10-29 22:27:00* Test Item Value Reference Range Interpretation Comments Lymphocytes # (Auto) (test code = 93052-3) 2.5 1.0-3.2 [facility] CentennialMonocytes # (Auto)2018-10-29 22:27:00* Test Item Value Reference Range Interpretation Comments Monocytes # (Auto) (test code = 742-7) 0.7 0.2-0.8 [facility] CentennialEosinophils # (Auto)2018-10-29 22:27:00* Test Item Value Reference Range Interpretation Comments Eosinophils # (Auto) (test code = 711-2) 0.1 0.0-0.4 [facility] CentennialBasophils # (Auto)2018-10-29 22:27:00* Test Item Value Reference Range Interpretation Comments Basophils # (Auto) (test code = 704-7) 0.0 0.0-0.1 [facility] CentennialAbsolute Immature Granulocyte (auto 2018-10-29 22:27:00* Test Item Value Reference Range Interpretation Comments Absolute Immature Granulocyte (auto (shahram t code = Absolute Immature Granulocyte (auto) 0.09 0-0.1 [facility] Ijfzluf7439-22-92 15:14:00* Test Item Value Reference Range Interpretation Comments Bedside Glucose (test code = 90253-5) 250 70-120 H Meter ID: [id number] [facility] & [facility] Glucose 2018-10-24 15:14:00* Test Item Value Reference Range Interpretation Comments Bedside Glucose (test code = 25741-0) 250 70-120 H Meter ID: [id number] [facility] Glucose 2018-10-24 15:14:00* Test Item Value Reference Range Interpretation Comments Bedside Glucose (test code = 45049-2) 250 70-120 H Meter ID: [id number] Scott & White Medical Center – CentennialHemoglobin A1c Cpzruel5037-17-81 08:02:00* Test Item Value Reference Range Interpretation Comments Hemoglobin A1c Percent (test code = Hemoglobin A1c Percent) 7.5 4.0-7.0 H [facility] CentennialHemoglobin A1c Aqrqqyy5774-87-53 08:02:00 * Test Item Value Reference Range Interpretation Comments Hemoglobin A1c Percent (test code = Hemoglobin A1c Percent) 7.5 4.0-7.0 H [facility] CentennialHemoglobin A1c Petqwtd7398-98-43 08:02:00 * Test Item Value Reference Range Interpretation Comments Hemoglobin A1c Percent (test code = Hemoglobin A1c Percent) 7.5 4.0-7.0 [facility] Lhfqg2341-39-48 07:38:00* Test Item Value Reference Range Interpretation Comments Sodium Level (test code = 2951-2) 132 136-145 L [facility] CentennialPotassium Sfhqp2316-38-50 07:38:00* Test Item Value Reference Range Interpretation Comments Potassium Level (test code = 2823-3) 3.7 3.5-5.1 [facility] CentennialChloride Kleql1917-06-53 07:38:00* Test Item Value Reference Range Interpretation Comments Chloride Level (test code = 2075-0) 97 98-107 L [facility] CentennialCarbon Dioxide Skukw7406-41-69 07:38:00* Test Item Value Reference Range Interpretation Comments Carbon Dioxide Level (test code = 2028-9) 24 22-29 [facility] CentennialAnion Kas0081-09-94 07:38:00* Test Item Value Reference Range Interpretation Comments Anion Gap (test code = 19683-7) 14.7 8-16 [facility] CentennialBlood Urea Cbneaoeh4003-67-19 07:38:00* Test Item Value Reference Range Interpretation Comments Blood Urea Nitrogen (test code = 3094-0) 15 7-26 [facility] CentennialCreatinine2019-09-06 07:38:00* Test Item Value Reference Range Interpretation Comments Creatinine (test code = 2160-0) 1.12 0.72-1.25 [facility] CentennialBUN/Creatinine Ulowv7806-56-36 07:38:00* Test Item Value Reference Range Interpretation Comments BUN/Creatinine Ratio (test code = 3097-3) 13 6-25 [facility] CentennialEstimat Glomerular Filtration Rate 2018-10-24 07:38:00* Test Item Value Reference Range Interpretation Comments Estimat Glomerular Filtration Rate (test code = 452950204) > 60 >60 Ranges were taken from the National Kidney Disease Education Program and the [facility]ney Foundation literature.Reference ranges:60 or greater: Dywldy02-39 ( for 3 consecutive months): Chronic kidney disease 15 or less: Kidney failureBaylor Scott & White Medical Center – CentennialGlucose Qpygm8167-57-39 07:38:00* Test Item Value Reference Range Interpretation Comments Glucose Level (test code = UWK6478) 201 74-118 H [facility] CentennialCalcium Uvmqv4418-50-36 07:38:00* Test Item Value Reference Range Interpretation Comments Calcium Level (test code = 25813-3) 9.4 8.4-10.2 [facility] CentennialWhite Blood Ugjhg3168-02-26 07:33:00* Test Item Value Reference Range Interpretation Comments White Blood Count (test code = 6690-2) 6.57 4.8-10.8 [facility] CentennialRed Blood Tktms4361-09-03 07:33:00* Test Item Value Reference Range Interpretation Comments Red Blood Count (test code = 789-8) 4.25 4.3-5.7 L [facility] CentennialHemoglobin2019-09-06 07:33:00* Test Item Value Reference Range Interpretation Comments Hemoglobin (test code = 72363-8) 13.2 14.0-18.0 L [facility] CentennialHematocrit2019-09-06 07:33:00* Test Item Value Reference Range Interpretation Comments Hematocrit (test code = 4544-3) 38.6 38.2-49.6 [facility] CentennialMean Corpuscular Drafdv6909-96-12 07:33:00* Test Item Value Reference Range Interpretation Comments Mean Corpuscular Volume (test code = 787-2) 90.8 81-99 [facility] CentennialMean Corpuscular Vvvcyjxdav8065-76-50 07:33:00* Test Item Value Reference Range Interpretation Comments Mean Corpuscular Hemoglobin (test code = 785-6) 31.1 28-32 [facility] CentennialMean Corpuscular Hemoglobin Concent 2018-10-24 07:33:00* Test Item Value Reference Range Interpretation Comments Mean Corpuscular Hemoglobin Concent (test code = 786-4) 34.2 31-35 [facility] CentennialRed Cell Distribution Sdtkx3927-49-51 07:33:00* Test Item Value Reference Range Interpretation Comments Red Cell Distribution Width (test code = 11854-7) 15.2 11.7 -14.4 H [facility] CentennialPlatelet Gbyye0934-19-17 07:33:00* Test Item Value Reference Range Interpretation Comments Platelet Count (test code = 777-3) 192 140-360 [facility] CentennialNeutrophils (%) (Auto)2018-10-24 07:33:00 * Test Item Value Reference Range Interpretation Comments Neutrophils (%) (Auto) (test code = 28056-1) 70.9 38.7-80.0 [facility] CentennialLymphocytes (%) (Auto)2018-10-24 07:33:00 * Test Item Value Reference Range Interpretation Comments Lymphocytes (%) (Auto) (test code = 736-9) 17.0 18.0-39.1 L [facility] CentennialMonocytes (%) (Auto)2018-10-24 07:33:00* Test Item Value Reference Range Interpretation Comments Monocytes (%) (Auto) (test code = 5905-5) 8.7 4.4-11.3 [facility] CentennialEosinophils (%) (Auto)2018-10-24 07:33:00 * Test Item Value Reference Range Interpretation Comments Eosinophils (%) (Auto) (test code = 713-8) 2.3 0.0-6.0 [facility] CentennialBasophils (%) (Auto)2018-10-24 07:33:00* Test Item Value Reference Range Interpretation Comments Basophils (%) (Auto) (test code = 706-2) 0.3 0.0-1.0 [facility] CentennialIM GRANULOCYTES %2018-10-24 07:33:00* Test Item Value Reference Range Interpretation Comments IM GRANULOCYTES % (test code = IM GRANULOCYTES %) 0.8 0.0- 1.0 [facility] CentennialNeutrophils # (Auto)2018-10-24 07:33:00* Test Item Value Reference Range Interpretation Comments Neutrophils # (Auto) (test code = 751-8) 4.7 2.1-6.9 [facility] CentennialLymphocytes # (Auto)2018-10-24 07:33:00* Test Item Value Reference Range Interpretation Comments Lymphocytes # (Auto) (test code = 46818-7) 1.1 1.0-3.2 [facility] CentennialMonocytes # (Auto)2018-10-24 07:33:00* Test Item Value Reference Range Interpretation Comments Monocytes # (Auto) (test code = 742-7) 0.6 0.2-0.8 [facility] CentennialEosinophils # (Auto)2018-10-24 07:33:00* Test Item Value Reference Range Interpretation Comments Eosinophils # (Auto) (test code = 711-2) 0.2 0.0-0.4 [facility] CentennialBasophils # (Auto)2018-10-24 07:33:00* Test Item Value Reference Range Interpretation Comments Basophils # (Auto) (test code = 704-7) 0.0 0.0-0.1 [facility] CentennialAbsolute Immature Granulocyte (auto 2018-10-24 07:33:00* Test Item Value Reference Range Interpretation Comments Absolute Immature Granulocyte (auto (shahram t code = Absolute Immature Granulocyte (auto) 0.05 0-0.1 [facility] CentennialTriglycerides Xkzbm9479-79-15 07:02:00* Test Item Value Reference Range Interpretation Comments Triglycerides Level (test code = 2571-8) 344 0-149 H [facility] CentennialCholesterol Zoynn7182-98-72 07:02:00* Test Item Value Reference Range Interpretation Comments Cholesterol Level (test code = 2093-3) 163 0-199 Less than 200 mg/dL Low Qqqy130 - 239 mg/dL Borderline Awif730 m g/dl and greater High Risk [facility] CentennialLDL Eopjkgzydde9713-64-83 07:02:00* Test Item Value Reference Range Interpretation Comments LDL Cholesterol (test code = 2089-1) 66 60-130 [facility] Bidfqxcttfx8317-02-81 07:02:00* Test Item Value Reference Range Interpretation Comments HDL Cholesterol (test code = 2085-9) 28 40-60 L [facility] CentennialCholesterol/HDL Upiek5785-40-24 07:02:00 * Test Item Value Reference Range Interpretation Comments Cholesterol/HDL Ratio (test code = 9830-1) 5.8 3.9-4.7 H [facility] CentennialTriglycerides Bkjkf9107-00-27 07:02:00* Test Item Value Reference Range Interpretation Comments Triglycerides Level (test code = 2571-8) 344 0-149 H [facility] CentennialCholesterol Bipgn1149-40-60 07:02:00* Test Item Value Reference Range Interpretation Comments Cholesterol Level (test code = 2093-3) 163 0-199 Less than 200 mg/dL Low Tjpe572 - 239 mg/dL Borderline Xhkh940 m g/dl and greater High Risk [facility] CentennialLDL Odparbnnvim3441-69-34 07:02:00* Test Item Value Reference Range Interpretation Comments LDL Cholesterol (test code = 2089-1) 66 60-130 [facility] Sxnpjttztmf4875-15-14 07:02:00* Test Item Value Reference Range Interpretation Comments HDL Cholesterol (test code = 2085-9) 28 40-60 L [facility] CentennialCholesterol/HDL Acdlq7982-18-48 07:02:00 * Test Item Value Reference Range Interpretation Comments Cholesterol/HDL Ratio (test code = 9830-1) 5.8 3.9-4.7 H [facility] CentennialTriglycerides Bifsm8879-54-29 07:02:00* Test Item Value Reference Range Interpretation Comments Triglycerides Level (test code = 2571-8) 344 0-149 H [facility] CentennialCholesterol Sifyn0174-41-65 07:02:00* Test Item Value Reference Range Interpretation Comments Cholesterol Level (test code = 2093-3) 163 0-199 Less than 200 mg/dL Low Xcxb038 - 239 mg/dL Borderline Finw658 m g/dl and greater High Risk [facility] CentennialLDL Fxusguweljc5617-15-80 07:02:00* Test Item Value Reference Range Interpretation Comments LDL Cholesterol (test code = 2089-1) 66 60-130 [facility] CentennialHDL Ncgbzcjunip6195-55-54 07:02:00* Test Item Value Reference Range Interpretation Comments HDL Cholesterol (test code = 2085-9) 28 40-60 L [facility] CentennialCholesterol/HDL Lwaau8339-84-27 07:02:00 * Test Item Value Reference Range Interpretation Comments Cholesterol/HDL Ratio (test code = 9830-1) 5.8 3.9-4.7 H [facility] CentennialCHEST SINGLE (PORTABLE)2018-10-24 06:18:00 [place] [address] Patient Name: ARANZA LOPEZ MR #: [id number] : 1970 Age/Sex: 48/M Req #: [id number] Adm Physician: JARRET ALEXIS MD Ordered by: JARRET ALEXIS MD Report #: [id number] Location: MED/SURG3 Room/Bed: [facility] Procedure: DX/CH EST SINGLE (PORTABLE) Exam Date: 10/24/18 Exam Time: 0535 REPORT STATUS: Signed EXAM INATION: CHEST SINGLE (PORTABLE) COMPARISON: Chest x-ray 10/22/2018, CTA chest 10/23/2018 INDICATION: wheezing [id number] Y D ISCUSSION: Frontal view of the chest obtained at 0536 hours. HEART AND ME DIASTINUM: The heart is mildly enlarged, stable. Stable prominence of the pul monary arteries. LINES: None. LUNGS: The lungs are well-inflated. Pulmonary vasculature is prominent. Bibasilar atelectasis PLEURA: No ple ural effusion or pneumothorax. BONES AND SOFT TISSUES: Upper median sterno roxana wires are fractured. Lower median sternotomy plates are stable. A fusion plate in the lower cervical spine is partially imaged. IMPRESSION: Stable cardiomegaly and pulmonary artery enlargement suggestive of pulmonary a rtery hypertension. Bibasilar atelectasis. Signed by: Dr. Camden Milian MD on 10/24/2018 6:21 AM Dictated By: CAMDEN MILIAN MD Electronicall y Signed By: CAMDEN MILIAN MD on 10/24/18620 Transcribed By: ADALBERTO on 0 10/24/18620 COPY TO: JARRET ALEXIS MD CTA YHAUL3697-23-49 18:15:00 [place] [address] Patient Name: ARANZA LOPEZ MR #: [id number] : 1970 Age/Sex: 48/M Req #: [id number] Adm Physician: JARRET ALEXIS MD Ordered by: ROBER ROLON DO Report #: [id number] Location: MED/SURG3 Room/Bed: [facility] Procedure: CT/ CTA CHEST Exam Date: 10/23/18 Exam Time: 1722 REPORT STATUS: Signed EXAMINATION: CT scan of the chest with contrast. TECHNIQUE: Helical CT images of the chest were performed from the lung apices to the level of the adrenal glands before and after the intravenous administration of 100 cc of Isovue 300. Coronal and sagittal reformatted images were obtained. 3-D post processing. Dose modulat ion, iterative reconstruction, and/or weight based adjustment of the mA/kV was utilized to reduce the radiation dose to as low as reasonably achievable. COMPARISON: None. CLINICAL HISTORY:Chest pain, history of aortic dissect ion DISCUSSION: LINES/TUBES: Prior sternotomy. LUNGS AND AIRWAYS : 3 mm right upper lobe pulmonary nodule image 18. 4 mm right middle lobe nodu le image 37. Scarring/atelectasis in the medial aspect of the right lung. No concerning consolidation or mass. PLEURA: No pneumothorax or pleural ef fusions. HEART AND MEDIASTINUM: The thyroid gland is normal. The heart size is mildly prominent. The pulmonary artery is normal in caliber. Circumfle x frontal density around the ascending aorta axial image 27 precontrast may re flect prior surgical change. No dissection or aneurysm. LYMPH NODES: Ther e is no mediastinal, hilar or axillary lymphadenopathy. ABDOMEN: Limited co ntrast-enhanced views of the upper abdomen show no abnormality within the visu alized liver, spleen, pancreas, or kidneys. The adrenal glands are normal. BONES AND SOFT TISSUES: No acute bony abnormalities. IMPRESSION: No aortic dissection or aneurysm. Signed by: Dr. Chucky Serra M.D. on 2018 6:24 PM Dictated By: CHUCKY SERRA MD 23 Transcribed By: ADALBERTO on 10/23/181823 COPY TO: ROBER ROLON DO Creatine Kinase [id number] 14:27:00 * Test Item Value Reference Range Interpretation Comments Creatine Kinase MB (test code = 20599-0) 1.40 0-5.0 [facility]ennialTroponin [id number] 14:27:00* Test Item Value Reference Range Interpretation Comments Troponin I (test code = OBF5260) 0.007 0-0.300 [facility]ennialCreatine Ovvmbj6093-15-18 14:06:00* Test Item Value Reference Range Interpretation Comments Creatine Kinase (test code = 2157-6) 168 30-200 [facility]ennialPhosphorus Utchr0880-55-14 06:31:00* Test Item Value Reference Range Interpretation Comments Phosphorus Level (test code = KJA3888) 4.4 2.3-4.7 [facility]ennialMagnesium Rndiy6669-55-22 06:31:00* Test Item Value Reference Range Interpretation Comments Magnesium Level (test code = 12510-9) 2.0 1.3-2.1 [facility] CentennialTotal Flpwpviyj2928-12-43 06:31:00* Test Item Value Reference Range Interpretation Comments Total Bilirubin (test code = 1975-2) 0.5 0.2-1.2 [facility]ennialAspartate Amino Transf (AST/SGOT) 2018-10-23 06:31:00* Test Item Value Reference Range Interpretation Comments Aspartate Amino Transf (AST/SGOT) (test code = Aspartate Amino Transf (AST/SGOT)) 15 5-34 [facility]ennialAlanine Aminotransferase (ALT/SGPT) 2018-10-23 06:31:00* Test Item Value Reference Range Interpretation Comments Alanine Aminotransferase (ALT/SGPT) (test code = 1742-6) 17 0-55 [facility]ennialTotal Qvbtuoy5436-59-59 06:31:00* Test Item Value Reference Range Interpretation Comments Total Protein (test code = 2885-2) 5.9 6.5-8.1 L [facility] CentennialAlbumin2019-09-05 06:31:00* Test Item Value Reference Range Interpretation Comments Albumin (test code = 1751-7) 3.2 3.5-5.0 L [facility]ennialGlobulin2019-09-05 06:31:00* Test Item Value Reference Range Interpretation Comments Globulin (test code = 51898-8) 2.7 2.3-3.5 [facility]ennialAlbumin/Globulin Ufezf0902-76-17 06:31:00 * Test Item Value Reference Range Interpretation Comments Albumin/Globulin Ratio (test code = 1759-0) 1.2 0.8-2.0 [facility]ennialAlkaline Fnseipbpvtb1734-42-24 06:31:00* Test Item Value Reference Range Interpretation Comments Alkaline Phosphatase (test code = 6768-6) 83 40-150 [facility]ennialPhosphorus Sgqoe9096-76-03 06:31:00* Test Item Value Reference Range Interpretation Comments Phosphorus Level (test code = AMU9348) 4.4 2.3-4.7 [facility]ennialMagnesium Biygv0567-06-79 06:31:00* Test Item Value Reference Range Interpretation Comments Magnesium Level (test code = 05436-6) 2.0 1.3-2.1 [facility]ennialPhosphorus Xyvbp6445-47-37 06:31:00* Test Item Value Reference Range Interpretation Comments Phosphorus Level (test code = MXL9030) 4.4 2.3-4.7 [facility]ennialMagnesium Ewwgx7773-64-02 06:31:00* Test Item Value Reference Range Interpretation Comments Magnesium Level (test code = 22133-7) 2.0 1.3-2.1 [facility]ennialUrine IJG1693-26-86 21:27:00* Test Item Value Reference Range Interpretation Comments Urine WBC (test code = 5821-4) 0-5 0-5 [facility]ennialUrine ESW4093-02-19 21:27:00* Test Item Value Reference Range Interpretation Comments Urine RBC (test code = 18970-0) NONE 0-5 [facility]ennialUrine Wtkurjso0149-70-60 21:27:00* Test Item Value Reference Range Interpretation Comments Urine Bacteria (test code = 64959-3) NONE NONE [facility]ennialUrine Epithelial Tngad3927-16-81 21:27:00 * Test Item Value Reference Range Interpretation Comments Urine Epithelial Cells (test code = 45175-3) NONE NONE [facility]ennialUrine DQI1769-08-82 21:27:00* Test Item Value Reference Range Interpretation Comments Urine WBC (test code = 5821-4) 0-5 0-5 [facility]ennialUrine BOK2573-30-66 21:27:00* Test Item Value Reference Range Interpretation Comments Urine RBC (test code = 73214-6) NONE 0-5 [facility]ennialUrine Wcsiclgy0157-03-52 21:27:00* Test Item Value Reference Range Interpretation Comments Urine Bacteria (test code = 16801-8) NONE NONE [facility]ennialUrine Epithelial Vcokq6863-60-79 21:27:00 * Test Item Value Reference Range Interpretation Comments Urine Epithelial Cells (test code = 07869-4) NONE NONE [facility]ennialUrine MLS1254-63-16 21:27:00* Test Item Value Reference Range Interpretation Comments Urine WBC (test code = 5821-4) 0-5 0-5 [facility]ennialUrine PQL3232-87-13 21:27:00* Test Item Value Reference Range Interpretation Comments Urine RBC (test code = 75223-8) NONE 0-5 [facility]ennialUrine Loelzinm9308-51-80 21:27:00* Test Item Value Reference Range Interpretation Comments Urine Bacteria (test code = 05210-7) NONE NONE [facility]ennialUrine Epithelial Phiyh2491-99-11 21:27:00 * Test Item Value Reference Range Interpretation Comments Urine Epithelial Cells (test code = 32510-2) NONE NONE [facility]ennialUrine Opiates Jdvdzm3130-15-13 21:20:00* Test Item Value Reference Range Interpretation Comments Urine Opiates Screen (test code = 34088-0) POSITIVE NEGATIVE H ALL TESTS PERFORMED MANUALLY ON Kimeltu TOX/SEE TEST This test provides only a sc reen. Positive results should be repeated by a confirmatory test.[facility]ennialUrine Barbiturates Smrcaj7042-25-84 21:20:00* Test Item Value Reference Range Interpretation Comments Urine Barbiturates Screen (test code = 739601034) NEGATIVE NEGA TIVE [facility]ennialUrine Phencyclidine Uvzsup7953-08-97 21:20:00* Test Item Value Reference Range Interpretation Comments Urine Phencyclidine Screen (test code = 37917-7) NEGATIVE NEGAT DEVONTE [facility]ennialUrine Amphetamines Twolur7194-06-06 21:20:00* Test Item Value Reference Range Interpretation Comments Urine Amphetamines Screen (test code = 50703-3) NEGATIVE NEGATI VE [facility]ennialUrine Methamphetamines Jythag5000-66-02 21:20:00* Test Item Value Reference Range Interpretation Comments Urine Methamphetamines Screen (test code = Urine Metha mphetamines Screen) NEGATIVE NEGATIVE [facility]ennialUrine Benzodiazepines Mthkci1390-08-40 21:20:00* Test Item Value Reference Range Interpretation Comments Urine Benzodiazepines Screen (test code = 77118-1) NEGATIVE NEG ATIVE [facility]ennialUrine Cocaine Prwdtj2728-10-40 21:20:00* Test Item Value Reference Range Interpretation Comments Urine Cocaine Screen (test code = 3398-5) NEGATIVE NEGATIVE [facility]ennialU[facility] Cannabinoids Asjexc2673-38-25 21:20:00* Test Item Value Reference Range Interpretation Comments Urine Cannabinoids Screen (test code = 19071-3) NEGATIVE NEGATI VE THESE RESULTS ARE FOR MEDICAL TREATMENT ONLYTHIS REPORT CONTAINS UNCONFIR MED SCREENING RESULTS*POSITIVE RESULTS WILL BE CONFIRMED BY REFERENCE LAB UPON R EQUEST CUT-OFFDRUG CLASS CONCENTRATION ng/mLAmphetamines 1000Methamphetamines 1000Cocaine 300Opiate 300Phencyc lidine 25Cannabinoid 50Barbiturates 300Benzodiazepine 300Methadone 300[facility] Methadone Orcxwh8085-99-05 21:20:00* Test Item Value Reference Range Interpretation Comments Urine Methadone Screen (test code = 93103-9) NEGATIVE NEGATIVE THESE RESULTS ARE FOR MEDICAL TREATMENT ONLYTHIS REPORT CONTAINS UNCONFIR MED SCREENING RESULTS*POSITIVE RESULTS WILL BE CONFIRMED BY REFERENCE LAB UPON R EQUEST CUT-OFFDRUG CLASS CONCENTRATION ng/mLAmphetamines 1000Methamphetamines 1000Cocaine Metabolite 300Opiate 300Phencyc lidine 25Cannabinoid 50Barbiturates 300Benzodiazepine 300Methadone 300[facility] Opiates Jykjyg3755-56-61 21:20:00* Test Item Value Reference Range Interpretation Comments Urine Opiates Screen (test code = 85981-4) POSITIVE NEGATIVE H ALL TESTS PERFORMED MANUALLY ON Kimeltu TOX/SEE TEST This test provides only a sc reen. Positive results should be repeated by a confirmatory test.[facility]ennialUrine Barbiturates Hksqyd7068-57-82 21:20:00* Test Item Value Reference Range Interpretation Comments Urine Barbiturates Screen (test code = 481351515) NEGATIVE NEGA TIVE [facility]ennialU[facility] Phencyclidine Povhos6377-22-12 21:20:00* Test Item Value Reference Range Interpretation Comments Urine Phencyclidine Screen (test code = 28600-4) NEGATIVE NEGAT DEVONTE [facility] Amphetamines Syifpv6623-38-98 21:20:00* Test Item Value Reference Range Interpretation Comments Urine Amphetamines Screen (test code = 34400-1) NEGATIVE NEGATI VE [facility]ennialU[facility] Methamphetamines Tqdvyx4310-41-19 21:20:00* Test Item Value Reference Range Interpretation Comments Urine Methamphetamines Screen (test code = Urine Metha mphetamines Screen) NEGATIVE NEGATIVE [facility] Benzodiazepines Fhsoai6902-94-20 21:20:00* Test Item Value Reference Range Interpretation Comments Urine Benzodiazepines Screen (test code = 29699-5) NEGATIVE NEG ATIVE [facility]ennialU[facility] Cocaine Hovvjs7245-66-47 21:20:00* Test Item Value Reference Range Interpretation Comments Urine Cocaine Screen (test code = 3398-5) NEGATIVE NEGATIVE [facility] Cannabinoids Sgkelf1709-16-05 21:20:00* Test Item Value Reference Range Interpretation Comments Urine Cannabinoids Screen (test code = 06949-6) NEGATIVE NEGATI VE THESE RESULTS ARE FOR MEDICAL TREATMENT ONLYTHIS REPORT CONTAINS UNCONFIR MED SCREENING RESULTS*POSITIVE RESULTS WILL BE CONFIRMED BY REFERENCE LAB UPON R EQUEST CUT-OFFDRUG CLASS CONCENTRATION ng/mLAmphetamines 1000Methamphetamines 1000Cocaine 300Opiate 300Phencyc lidine 25Cannabinoid 50Barbiturates 300Benzodiazepine 300Methadone 300[facility] Methadone Vhidix2663-05-01 21:20:00* Test Item Value Reference Range Interpretation Comments Urine Methadone Screen (test code = 63915-4) NEGATIVE NEGATIVE THESE RESULTS ARE FOR MEDICAL TREATMENT ONLYTHIS REPORT CONTAINS UNCONFIR MED SCREENING RESULTS*POSITIVE RESULTS WILL BE CONFIRMED BY REFERENCE LAB UPON R EQUEST CUT-OFFDRUG CLASS CONCENTRATION ng/mLAmphetamines 1000Methamphetamines 1000Cocaine Metabolite 300Opiate 300Phencyc lidine 25Cannabinoid 50Barbiturates 300Benzodiazepine 300Methadone 300[facility] Opiates Pwpwxf7200-93-74 21:20:00* Test Item Value Reference Range Interpretation Comments Urine Opiates Screen (test code = 40710-8) POSITIVE NEGATIVE H ALL TESTS PERFORMED MANUALLY ON Kimeltu TOX/SEE TEST This test provides only a sc reen. Positive results should be repeated by a confirmatory test.[facility] Barbiturates Jgcuop1422-87-23 21:20:00* Test Item Value Reference Range Interpretation Comments Urine Barbiturates Screen (test code = 946529601) NEGATIVE NEGA TIVE [facility]ennialU[facility] Phencyclidine Bbpyzv7738-22-44 21:20:00* Test Item Value Reference Range Interpretation Comments Urine Phencyclidine Screen (test code = 37496-3) NEGATIVE NEGAT DEVONTE [facility]ennialU[facility] Amphetamines Fgphog4939-94-56 21:20:00* Test Item Value Reference Range Interpretation Comments Urine Amphetamines Screen (test code = 04263-9) NEGATIVE NEGATI VE [facility] Methamphetamines Uelxlv6614-47-38 21:20:00* Test Item Value Reference Range Interpretation Comments Urine Methamphetamines Screen (test code = Urine Metha mphetamines Screen) NEGATIVE NEGATIVE [facility] Benzodiazepines Anqsab9139-35-80 21:20:00* Test Item Value Reference Range Interpretation Comments Urine Benzodiazepines Screen (test code = 27394-0) NEGATIVE NEG ATIVE [facility]ennialU[facility] Cocaine Cjyjzd4603-30-52 21:20:00* Test Item Value Reference Range Interpretation Comments Urine Cocaine Screen (test code = 3398-5) NEGATIVE NEGATIVE [facility] Cannabinoids Rnxepp7032-46-93 21:20:00* Test Item Value Reference Range Interpretation Comments Urine Cannabinoids Screen (test code = 19500-1) NEGATIVE NEGATI VE THESE RESULTS ARE FOR MEDICAL TREATMENT ONLYTHIS REPORT CONTAINS UNCONFIR MED SCREENING RESULTS*POSITIVE RESULTS WILL BE CONFIRMED BY REFERENCE LAB UPON R EQUEST CUT-OFFDRUG CLASS CONCENTRATION ng/mLAmphetamines 1000Methamphetamines 1000Cocaine 300Opiate 300Phencyc lidine 25Cannabinoid 50Barbiturates 300Benzodiazepine 300Methadone 300[facility] Methadone Kawpfo7536-23-85 21:20:00* Test Item Value Reference Range Interpretation Comments Urine Methadone Screen (test code = 77625-1) NEGATIVE NEGATIVE THESE RESULTS ARE FOR MEDICAL TREATMENT ONLYTHIS REPORT CONTAINS UNCONFIR MED SCREENING RESULTS*POSITIVE RESULTS WILL BE CONFIRMED BY REFERENCE LAB UPON R EQUEST CUT-OFFDRUG CLASS CONCENTRATION ng/mLAmphetamines 1000Methamphetamines 1000Cocaine Metabolite 300Opiate 300Phencyc lidine 25Cannabinoid 50Barbiturates 300Benzodiazepine 300Methadone 300[facility]ennialU[facility] Xekdw1788-15-36 21:17:00* Test Item Value Reference Range Interpretation Comments Urine Color (test code = 5778-6) YELLOW YELLOW [facility]ennialU[facility] Vwnjjai0659-10-75 21:17:00* Test Item Value Reference Range Interpretation Comments Urine Clarity (test code = 45379-5) CLEAR CLEAR [facility]ennialU[facility] Specific Pnqjsmk8894-26-71 21:17:00 * Test Item Value Reference Range Interpretation Comments Urine Specific [place] (test code = 5811-5) 1.010 1.010-1.02 5 [facility] sV9911-79-64 21:17:00* Test Item Value Reference Range Interpretation Comments Urine pH (test code = 05291-5) 6 5-7 [facility] Leukocyte Mfbgtack3699-48-47 21:17:00* Test Item Value Reference Range Interpretation Comments Urine Leukocyte Esterase (test code = 09968-6) NEGATIVE NEGATIV E [facility]ennialU[facility] Htfehhs0523-85-89 21:17:00* Test Item Value Reference Range Interpretation Comments Urine Nitrite (test code = 45554-6) NEGATIVE NEGATIVE [facility] Pdsrgtu6163-72-23 21:17:00* Test Item Value Reference Range Interpretation Comments Urine Protein (test code = 72179-2) NEGATIVE NEGATIVE [facility] Glucose (UA)2018-10-22 21:17:00* Test Item Value Reference Range Interpretation Comments Urine Glucose (UA) (test code = 98912-9) 3+ NEGATIVE [facility] Tjxujfr6611-71-07 21:17:00* Test Item Value Reference Range Interpretation Comments Urine Ketones (test code = 68181-5) NEGATIVE NEGATIVE [facility] Padzocqchgjp5470-34-39 21:17:00* Test Item Value Reference Range Interpretation Comments Urine Urobilinogen (test code = 55376-5) 0.2 0.2-1 [facility] Cfschlekq7769-33-23 21:17:00* Test Item Value Reference Range Interpretation Comments Urine Bilirubin (test code = 1977-8) NEGATIVE NEGATIVE [facility] Pgshg4724-92-21 21:17:00* Test Item Value Reference Range Interpretation Comments Urine Blood (test code = 66465-4) NEGATIVE NEGATIVE [facility] Yozfq6648-00-45 21:17:00* Test Item Value Reference Range Interpretation Comments Urine Color (test code = 5778-6) YELLOW YELLOW [facility] Iulvfow1316-44-92 21:17:00* Test Item Value Reference Range Interpretation Comments Urine Clarity (test code = 03790-6) CLEAR CLEAR [facility]ennialU[facility] Specific Rsecxxa8101-37-52 21:17:00 * Test Item Value Reference Range Interpretation Comments Urine Specific [place] (test code = 5811-5) 1.010 1.010-1.02 5 [facility] oX9090-39-55 21:17:00* Test Item Value Reference Range Interpretation Comments Urine pH (test code = 29434-9) 6 5-7 [facility] Leukocyte Aasfeigd6511-49-29 21:17:00* Test Item Value Reference Range Interpretation Comments Urine Leukocyte Esterase (test code = 16242-1) NEGATIVE NEGATIV E [facility] Twslpag4435-91-56 21:17:00* Test Item Value Reference Range Interpretation Comments Urine Nitrite (test code = 34696-7) NEGATIVE NEGATIVE [facility] Rmzmcqd6078-89-49 21:17:00* Test Item Value Reference Range Interpretation Comments Urine Protein (test code = 67902-1) NEGATIVE NEGATIVE [facility] Glucose (UA)2018-10-22 21:17:00* Test Item Value Reference Range Interpretation Comments Urine Glucose (UA) (test code = 61296-2) 3+ NEGATIVE [facility] Duaaemt6410-23-88 21:17:00* Test Item Value Reference Range Interpretation Comments Urine Ketones (test code = 16258-2) NEGATIVE NEGATIVE [facility] Apjydmcujvow7316-59-93 21:17:00* Test Item Value Reference Range Interpretation Comments Urine Urobilinogen (test code = 18338-8) 0.2 0.2-1 [facility] Xwgziklmb2715-52-30 21:17:00* Test Item Value Reference Range Interpretation Comments Urine Bilirubin (test code = 1977-8) NEGATIVE NEGATIVE [facility] Zzozq7773-04-48 21:17:00* Test Item Value Reference Range Interpretation Comments Urine Blood (test code = 88098-9) NEGATIVE NEGATIVE [facility] Uuymw4349-44-03 21:17:00* Test Item Value Reference Range Interpretation Comments Urine Color (test code = 5778-6) YELLOW YELLOW [facility] Pppiwvv0596-29-90 21:17:00* Test Item Value Reference Range Interpretation Comments Urine Clarity (test code = 65472-4) CLEAR CLEAR [facility] Specific Bofiulm4826-18-83 21:17:00 * Test Item Value Reference Range Interpretation Comments Urine Specific [place] (test code = 5811-5) 1.010 1.010-1.02 5 [facility] bC7649-86-49 21:17:00* Test Item Value Reference Range Interpretation Comments Urine pH (test code = 46343-6) 6 5-7 [facility] Leukocyte Cxtvoeiy8263-58-13 21:17:00* Test Item Value Reference Range Interpretation Comments Urine Leukocyte Esterase (test code = 60982-9) NEGATIVE NEGATIV E [facility] Kzekkkc4105-30-16 21:17:00* Test Item Value Reference Range Interpretation Comments Urine Nitrite (test code = 67692-3) NEGATIVE NEGATIVE [facility]ennial[facility] Jyvobit1739-84-92 21:17:00* Test Item Value Reference Range Interpretation Comments Urine Protein (test code = 87402-7) NEGATIVE NEGATIVE [facility] Glucose (UA)2018-10-22 21:17:00* Test Item Value Reference Range Interpretation Comments Urine Glucose (UA) (test code = 34566-3) 3+ NEGATIVE [facility] Uiogmoy7154-12-92 21:17:00* Test Item Value Reference Range Interpretation Comments Urine Ketones (test code = 57660-9) NEGATIVE NEGATIVE [facility] Bwkbqfdhcyib5247-17-91 21:17:00* Test Item Value Reference Range Interpretation Comments Urine Urobilinogen (test code = 70765-0) 0.2 0.2-1 [facility] Lsxsiybiu7110-10-43 21:17:00* Test Item Value Reference Range Interpretation Comments Urine Bilirubin (test code = 1977-8) NEGATIVE NEGATIVE [facility] Rwaon9288-50-99 21:17:00* Test Item Value Reference Range Interpretation Comments Urine Blood (test code = 11960-6) NEGATIVE NEGATIVE [facility] CentennialThyroid Stimulating Hormone (TSH) 2018-10-22 20:49:00* Test Item Value Reference Range Interpretation Comments Thyroid Stimulating Hormone (TSH) (test code = 95652-3) 1.497 0.350-4.940 [facility]ennialThyroid Stimulating Hormone (TSH) 2018-10-22 20:49:00* Test Item Value Reference Range Interpretation Comments Thyroid Stimulating Hormone (TSH) (test code = 94602-0) 1.497 0.350-4.940 [facility]ennialThyroid Stimulating Hormone (TSH) 2018-10-22 20:49:00* Test Item Value Reference Range Interpretation Comments Thyroid Stimulating Hormone (TSH) (test code = 46642-3) 1.497 0.350-4.940 [facility]ennialB-Type Natriuretic Tirwbhx6774-95-19 20:32:00* Test Item Value Reference Range Interpretation Comments B-Type Natriuretic Peptide (test code = 88646-6) 32.2 0-100 [facility] CentennialLipase2019-09-04 20:27:00* Test Item Value Reference Range Interpretation Comments Lipase (test code = 3040-3) [facility]ennial[facility]ase2019-09-04 20:27:00* Test Item Value Reference Range Interpretation Comments Lipase (test code = 3040-3) [facility]ennialLipase2019-09-04 20:27:00* Test Item Value Reference Range Interpretation Comments Lipase (test code = 3040-3) [facility]ennialProthrombin Mrzv5160-06-47 20:20:00* Test Item Value Reference Range Interpretation Comments Prothrombin Time (test code = 5902-2) 12.7 11.9-14.5 [facility]ennialProthromb Time International Ratio 2018-10-22 20:20:00* Test Item Value Reference Range Interpretation Comments Prothromb Time International Ratio (test code = 6301-6) 0.91 Oral Anticoagulant Therapy INR Values:1. Low Intensity Therapy 1.5 - 2.02 . Moderate Intensity Therapy 2.0 - 3.03. High Intensity Therapy(1) 2.5 - 3. 54. High Intensity Therapy(2) 3.0 - 4.05. Panic Value INR > 5.0 [facility] CentennialActivated Partial Thromboplast Time 2018-10-22 20:20:00* Test Item Value Reference Range Interpretation Comments Activated Partial Thromboplast Time (test code = 24565-1) 27.2 23.8-35.5 [facility]th[facility] [id number] 20:20:00* Test Item Value Reference Range Interpretation Comments Prothrombin Time (test code = 5902-2) 12.7 11.9-14.5 [facility]th[facility] Time International Ratio 2018-10-22 20:20:00* Test Item Value Reference Range Interpretation Comments Prothromb Time International Ratio (test code = 6301-6) 0.91 Oral Anticoagulant Therapy INR Values:1. Low Intensity Therapy 1.5 - 2.02 . Moderate Intensity Therapy 2.0 - 3.03. High Intensity Therapy(1) 2.5 - 3. 54. High Intensity Therapy(2) 3.0 - 4.05. Panic Value INR > 5.0 [facility]ennial[facility] Partial Thromboplast Time 2018-10-22 20:20:00* Test Item Value Reference Range Interpretation Comments Activated Partial Thromboplast Time (test code = 23790-9) 27.2 23.8-35.5 [facility] Partial Thromboplast Time 2018-10-22 20:20:00* Test Item Value Reference Range Interpretation Comments Activated Partial Thromboplast Time (test code = 28448-6) 27.2 23.8-35.5 [facility] ([facility])2018-10-22 19:37:00 [facility] [address] [place] [address] Patient Name: ARANZA LOPEZ MR #: [id number] : 1970 Age/Sex: 48/M Req #: [id number] Adm Physician: JARRET ALEXIS MD Ordered by: SUE LOGAN, DIONICIO LOGAN Report #: [id number] Location: [facility] Room/Bed: [place] [address] Procedure: [id number] D X/CHEST SINGLE (PORTABLE) Exam Date: 10/22/18 Exam T ana: 1915 REPORT STATUS: Signed Examination: Single AP view of the chest. COMPARISON: June 28, 2018 IND ICATION: Chest pain DISCUSSION: Lines/tubes: Sternotomy wires. Lungs: Central pulmonary venous congestion. Pleura: No pleural effusi on or pneumothorax. Heart and mediastinum: Cardiomegaly. Bones and so ft tissues: No acute bony abnormalities. IMPRESSION: 1. Cardi omegaly with central pulmonary venous congestion Signed by: Dr. Chucky hernandez M.D. on 10/22/2018 7:38 PM Dictated By: CHUCKY SERRA MD [facility] radha Signed By: CHUCKY SERRA MD on 10/22/181937 Transcribed By: ADALBERTO frost 10/22/181937 COPY TO: DIONICIO ROGERS URINALYSIS COMPLETE 2018-10-08 13:37:00* Test Item Value Reference Range Interpretation Comments UA COLOR (test code = COLU) Light-Yellow YELLOW UA APPEARANCE (test code = APPU) CLEAR CLEAR UA GLUCOSE DIPSTICK (test code = DGLUU) >1000 (4+) mg/dL NEGATIVE UA BILIRUBIN DIPSTICK (test code = BILU) NEGATIVE mg/dL NEGATIVE UA KETONE DIPSTICK (test code = KETU) NEGATIVE mg/dL NEGATIVE UA SPECIFIC GRAVITY (test code = SGU) 1.028 1.001-1.035 UA BLOOD DIPSTICK (test code = JOAQUIN) Negative mg/dL NEGATIVE UA PH DIPSTICK (test code = ROXIE) 5.5 5.0-8.0 UA PROTEIN DIPSTICK (test code = PROU) NEGATIVE mg/dL NEGATIVE UA UROBILINIOGEN DIPSTICK (test code = URO) Normal mg/dL NEGATIVE UA NITRITE DIPSTICK (test code = TWIN) NEGATIVE NEGATIVE UA LEUKOCYTE ESTERASE W REFLEX (test code = LEUUR) NEGATIVE Donal/uL NEGATIVE UA WBC (test code = WBCU) 0-5 per HPF 0-5 UA RBC (test code = RBCU) 0-2 #/HPF 0-5 UA EPITHELIAL CELLS (test code = EPIU) FEW per HPF FEW UA BACTERIA (test code = BACU) FEW #/HPF NONE A UA MUCUS (test code = MUCU) FEW #/LPF FEW Urine Source? Clean CatchDRUGS OF ABUSE SCREEN [id number] 13:37:00* Test Item Value Reference Range Interpretation Comments URN COCAINE (test code = COCAURN) NEGATIVE <300 ng/mL URN CANNABINOIDS (test code = CANNABURN) NEGATIVE <50 ng/mL URN AMPHETAMINE (test code = AMPHETURN) NEGATIVE <1000 ng/mL URN BARBITURATE (test code = BARBITURN) NEGATIVE <200 ng/mL URN BENZODIAZEPINE (test code = BENZOURN) NEGATIVE <200 ng/mL URN OPIATES (test code = OPIATURN) POSITIVE <300 ng/mL A This test provides only a preliminary test [...] employment testing, legaltesting). URN PHENCYCLIDINE (PCP) (test code = PHENCURN) NEGATIVE <25 ng/ mL URN METHADONE (test code = METHAURN) NEGATIVE <300 ng/mL Urine Source? Clean CatchURINALYSIS [id number] 13:13:00* Test Item Value Reference Range Interpretation Comments UA COLOR (test code = COLU) Light-Yellow YELLOW UA APPEARANCE (test code = APPU) CLEAR CLEAR UA GLUCOSE DIPSTICK (test code = DGLUU) >1000 (4+) mg/dL NEGATIVE UA BILIRUBIN DIPSTICK (test code = BILU) NEGATIVE mg/dL NEGATIVE UA KETONE DIPSTICK (test code = KETU) NEGATIVE mg/dL NEGATIVE UA SPECIFIC GRAVITY (test code = SGU) 1.028 1.001-1.035 UA BLOOD DIPSTICK (test code = JOAQUIN) Negative mg/dL NEGATIVE UA PH DIPSTICK (test code = ROXIE) 5.5 5.0-8.0 UA PROTEIN DIPSTICK (test code = PROU) NEGATIVE mg/dL NEGATIVE UA UROBILINIOGEN DIPSTICK (test code = URO) Normal mg/dL NEGATIVE UA NITRITE DIPSTICK (test code = TWIN) NEGATIVE NEGATIVE UA LEUKOCYTE ESTERASE W REFLEX (test code = LEUUR) NEGATIVE Donal/uL NEGATIVE UA WBC (test code = WBCU) 0-5 per HPF 0-5 UA RBC (test code = RBCU) 0-2 #/HPF 0-5 UA EPITHELIAL CELLS (test code = EPIU) FEW per HPF FEW UA BACTERIA (test code = BACU) FEW #/HPF NONE A UA MUCUS (test code = MUCU) FEW #/LPF FEW Urine Source? Clean CatchDRUGS OF ABUSE SCREEN [id number] 13:13:00* Test Item Value Reference Range Interpretation Comments URN COCAINE (test code = COCAURN) <300 ng/mL URN CANNABINOIDS (test code = CANNABURN) <50 ng/mL URN AMPHETAMINE (test code = AMPHETURN) <1000 ng/mL URN BARBITURATE (test code = BARBITURN) <200 ng/mL URN BENZODIAZEPINE (test code = BENZOURN) <200 ng/mL URN OPIATES (test code = OPIATURN) <300 ng/mL URN PHENCYCLIDINE (PCP) (test code = PHENCURN) <25 ng/ mL URN METHADONE (test code = METHAURN) <300 ng/mL Urine Source? Clean CatchB-TYPE NATRIURETIC [id number] 12:08:00* Test Item Value Reference Range Interpretation Comments B-TYPE NATRIURETIC PEPTIDE (test code = BNP) 22.65 pgram/mL 0-100 N [id number] 11:48:00* Test Item Value Reference Range Interpretation Comments MAGNESIUM (test code = MAG) 2.2 mg/dL 1.8-2.4 N - CT HEAD/BRAIN W/O [id number] 11:41:00 Name: ARANZA LOPEZ [facility] : 1970 Age/S: 48 / M [address] [facility] Unit #: [id number] Loc: [facility] [place] [address] Phys: Jan Ly MD Acct: [id number] Dis Date: Status: ADM IN PHONE #: [phone] Exam Date: 10/08/2018 1122 FAX #: [phone] Reason: ams EXAMS: CPT CODE: [id number] CT HEAD/BRAIN W/O CONT 81565 HISTORY: Confusion. COMPARISON: August 05, 2018. CT [...] Dhaliwal RT(R)(CT) CTDI: DLP: Trnscb Date/Time: 10/08/2018 (1141) t.SDR.TH4 Orig Print D/T: S: 10/08/2018 (1140) PAGE 1 Signed Report BASIC METABOLIC [id number] 11:37:00* Test Item Value Reference Range Interpretation Comments SODIUM (test code = NA) 139 mmol/L 136-145 N POTASSIUM (test code = K) 3.6 mmol/L 3.5-5.1 N CHLORIDE (test code = CL) 101.0 mmol/L 98-107 N CARBON DIOXIDE (test code = CO2) 26.0 mmol/L 21-32 N ANION GAP (test code = GAP) 15.6 10-20 N GLUCOSE (test code = GLU) 230 mg/dL 74-106 H BLOOD UREA NITROGEN (test code = BUN) 19 mg/dL 7-18 H GLOMERULAR FILTRATION RATE (test code = GFR) 54 mL/min >=60 Estimated GFR by using Modified MDRD formula.Chronic kidney disease is defined as either kidney damageor GFR <60 mL/min/1.73 m2 for >3 months. CREATININE (test code = CREAT) 1.40 mg/dL 0.7-1.3 H BUN/CREATININE RATIO (test code = BUN/CREA) 13.6 10-20 N CALCIUM (test code = CA) 9.0 mg/dL 8.5-10.1 N HEPATIC FUNCTION [id number] 11:37:00* Test Item Value Reference Range Interpretation Comments TOTAL PROTEIN (test code = PROT) 6.7 gram/dL 6.4-8.2 N ALBUMIN (test code = ALB) 3.6 g/dL 3.4-5.0 N GLOBULIN (test code = GLOB) 3.1 gram/dL 2.7-4.2 N ALBUMIN/GLOBULIN RATIO (test code = A/G) 1.2 0.75-1.50 N BILIRUBIN TOTAL (test code = BILT) 0.40 mg/dL 0.0-1.0 N BILIRUBIN DIRECT (test code = BILD) 0.09 mg/dL 0.0-0.20 N SGOT/AST (test code = AST) 17 IUnit/L 15-37 N SGPT/ALT (test code = ALT) 26 IUnit/L 12-78 N ALKALINE PHOSPHATASE TOTAL (test code = ALKP) 116 IUnit/L 45-117 N Note change in reference range due to change in reagent. [id number] 11:37:00* Test Item Value Reference Range Interpretation Comments LIPASE (test code = LIP) 114 U/L 73.0-393.0 N THYROID STIMULATING [id number] 11:37:00* Test Item Value Reference Range Interpretation Comments THYROID STIMULATING HORMONE (test code = TSH) 1.560 uIU/mL 0.36-3.7 4 N TSH REFERENCE RANGES: EUTHYROID: 0.35 - 4.3 mIU/mL HYPO : > 5.5 mIU/mL HYPER : < 0.35 mIU/mL [id number] 11:37:00* Test Item Value Reference Range Interpretation Comments TROPONIN-I (test code = TROPI) <0.015 ng/mL 0-0.045 N [id number] 11:37:00* Test Item Value Reference Range Interpretation Comments ACETAMINOPHEN (test code = ACET) < 10 mcg/mL 10-30 L A RANGE OF 10-30 mcg/mL IS A THERAPEUTIC RANGE. TOXIC CONCENTRATIONS: >150 mcg/mL AT 4 HOURS AFTER INGESTION >= 50 mcg/mL AT 12 HOURS AFTER INGESTION [id number] 11:37:00* Test Item Value Reference Range Interpretation Comments SALICYLATE (test code = JANET) 3.6 mg/dL 2.8-20.0 N [id number] 11:37:00* Test Item Value Reference Range Interpretation Comments ALCOHOL (test code = ALC) < 3 mg/dL 0.0-3.0 N -- INTERPRETIVE DATA NOTE: POSITIVE SCREENING RESULTS SHOULD BE CONSIDERED PRESUMPTIVE.WHEN COLLECTED FOR MEDICAL PURPOSES ONLY. SPECIMEN WILL NOTBE COLLECTED BY CHAIN OF CUSTODY.IF A CONFIRMATION OF POSITIVE RESULTS IS DESIRED, ACONFIRMATION TEST MUST BE REQUESTED BY THE PHYSICIAN AT ANADDITIONAL CHARGE TO THE PATIENT. [id number] 10:58:00* Test Item Value Reference Range Interpretation Comments AMMONIA (test code = AMM) 31 umol/L 11-32 N PROTHROMBIN [id number] 10:57:00* Test Item Value Reference Range Interpretation Comments PROTHROMBIN TIME PATIENT (test code = PTP) 14.0 seconds 9.0-14.0 N INTERNATIONAL NORMAL RATIO (test code = INR) 1.2 0.8-1.2 N The therapeutic range for oral anticoagulant therapy [...] (2.5-3.5) IS PATIENT ON ANTICOAGULANTS? NTHROMBOPLASTIN TIME [id number] 10:57:00* Test Item Value Reference Range Interpretation Comments THROMBOPLASTIN TIME PARTIAL (test code = PTT) 39.9 seconds 25.0-36. 5 H IS PATIENT ON ANTICOAGULANTS? NBASIC METABOLIC [id number] 10:55:00* Test Item Value Reference Range Interpretation Comments SODIUM (test code = NA) 139 mmol/L 136-145 N POTASSIUM (test code = K) 3.6 mmol/L 3.5-5.1 N CHLORIDE (test code = CL) 101.0 mmol/L 98-107 N CARBON DIOXIDE (test code = CO2) mmol/L 21-32 ANION GAP (test code = GAP) 10-20 GLUCOSE (test code = GLU) mg/dL 74-106 BLOOD UREA NITROGEN (test code = BUN) mg/dL 7-18 GLOMERULAR FILTRATION RATE (test code = GFR) mL/min >=60 CREATININE (test code = CREAT) mg/dL 0.7-1.3 BUN/CREATININE RATIO (test code = BUN/CREA) 10-20 CALCIUM (test code = CA) mg/dL 8.5-10.1 HEPATIC FUNCTION [id number] 10:55:00* Test Item Value Reference Range Interpretation Comments TOTAL PROTEIN (test code = PROT) gram/dL 6.4-8.2 ALBUMIN (test code = ALB) g/dL 3.4-5.0 GLOBULIN (test code = GLOB) gram/dL 2.7-4.2 ALBUMIN/GLOBULIN RATIO (test code = A/G) 0.75-1.50 BILIRUBIN TOTAL (test code = BILT) mg/dL 0.0-1.0 BILIRUBIN DIRECT (test code = BILD) mg/dL 0.0-0.20 SGOT/AST (test code = AST) IUnit/L 15-37 SGPT/ALT (test code = ALT) IUnit/L 12-78 ALKALINE PHOSPHATASE TOTAL (test code = ALKP) IUnit/L 45-117 [id number] 10:55:00* Test Item Value Reference Range Interpretation Comments LIPASE (test code = LIP) U/L 73.0-393.0 THYROID STIMULATING [id number] 10:55:00* Test Item Value Reference Range Interpretation Comments THYROID STIMULATING HORMONE (test code = TSH) uIU/mL 0.36-3.7 4 [id number] 10:55:00* Test Item Value Reference Range Interpretation Comments TROPONIN-I (test code = TROPI) ng/mL 0-0.045 [id number] 10:55:00* Test Item Value Reference Range Interpretation Comments ACETAMINOPHEN (test code = ACET) mcg/mL 10-30 [id number] 10:55:00* Test Item Value Reference Range Interpretation Comments SALICYLATE (test code = JANET) mg/dL 2.8-20.0 [id number] 10:55:00* Test Item Value Reference Range Interpretation Comments ALCOHOL (test code = ALC) mg/dL 0-3 CBC W/O [id number] 10:53:00* Test Item Value Reference Range Interpretation Comments WHITE BLOOD CELL (test code = WBC) 5.8 K/mm3 4.5-12.5 N RED BLOOD CELL (test code = RBC) 4.43 mill/mm3 4.0-5.8 N HEMOGLOBIN (test code = HGB) 13.5 gram/dL 13.0-17.5 N HEMATOCRIT (test code = HCT) 39.9 % 42.0-52.0 L MEAN CELL VOLUME (test code = MCV) 90.1 fL 80-98 N MEAN CELL HGB (test code = MCH) 30.5 picogram 27.0-33.0 N MEAN CELL HGB CONCETRATION (test code = MCHC) 33.8 gram/dL 33.0-36. 0 N RED CELL DISTRIBUTION WIDTH (test code = RDW) 13.8 % 11.6-16. 2 N PLATELET COUNT (test code = PLT) 175 K/mm3 150-450 N MEAN PLATELET VOLUME (test code = MPV) 10.0 fL 6.7-11.0 N - XR CHEST 1 [id number] 10:53:00 FAX: Jan Ly MD [phone] [place]: B : [facility] FAX: Blake Cazares MD [phone] Name: ARANZA LOPEZ [facility] : 1970 Age/S: 48/M [facility] Unit #: [id number] Loc: [place] [place] [address] Phys: Jan Ly MD Acct: [id number] Dis Date: Status: REG ER PHONE #: [phone] Exam Date: 10/08/2018 1044 FAX #: [phone] Reason: WEAKNESS EXAMS: CPT CODE: [id number] XR CHEST 1 V 98588 HISTORY: Weakness. COMPARISON: September 10, 2018. No acute infiltrates, effusion or congestion is noted. Suboptimal inspiration with dependent changes. Moderate cardiomegaly. Patient is post median sternotomy. Cervical fusion in the lower neck. IMPRESSION: No acute infiltrates, effusion or congestion. at 1053 Reported and signed by: Oliver Martinez M.D. CC: Jan Ly MD; Blake Cruz MD Technologist: LAURA DÍAZ, RT(R) Trnscrd Date/Time/By: 019 (1053) : By: [email or web address] [facility] Print D/T: S: 10/08/2018 (5054) PAGE 1 Signed Report CBC W/O [id number] 10:44:00* Test Item Value Reference Range Interpretation Comments WHITE BLOOD CELL (test code = WBC) K/mm3 4.5-12.5 RED BLOOD CELL (test code = RBC) mill/mm3 4.0-5.8 HEMOGLOBIN (test code = HGB) 13.5 gram/dL 13.0-17.5 N HEMATOCRIT (test code = HCT) % 42.0-52.0 MEAN CELL VOLUME (test code = MCV) fL 80-98 MEAN CELL HGB (test code = MCH) picogram 27.0-33.0 MEAN CELL HGB CONCETRATION (test code = MCHC) gram/dL 33.0-36. 0 RED CELL DISTRIBUTION WIDTH (test code = RDW) % 11.6-16. 2 PLATELET COUNT (test code = PLT) K/mm3 150-450 MEAN PLATELET VOLUME (test code = MPV) fL 6.7-11.0 TROPONIN I [id number] 10:43:00* Test Item Value Reference Range Interpretation Comments TROPONIN I RAPID (test code = TROPIRAP) 0.00 ng/mL <0.08 Please Note New Reference Range 0.00-0.079 ng/mL - Negative>or= 0.08 ng/mL - Positive The use of serial sampling and testing protocol is arecommended practice.An elevated troponin level alone is often not sufficient fordiagnosis of myocardial infarction. Troponin results obtained by different assays may vary.Evaluation of the extent of myocardial damage based onincrease of troponin would be valid only if similarmethodology is used. ARTERIAL BLOOD [id number] 10:42:00* Test Item Value Reference Range Interpretation Comments ARTERIAL BLOOD GAS PH (test code = PHA) 7.41 7.35-7.45 N ARTERIAL BLOOD GAS PCO2 (test code = PCO2A) 39.0 mm Hg 35-45 N ARTERIAL BLOOD GAS PO2 (test code = PO2A) 71.1 mmHg 80-100 L BICARBONATE TOTAL HCO3 (test code = HCO3) 24.1 mmol/L 23.0-27.0 N BASE EXCESS (test code = MYA) -0.4 mmol/L -3.0-5.0 N ABG O2 SATURATION (test code = SATA) 93.9 % 90.0-98.0 N ABG TYPE (test code = TYPEA) Arterial FIO2 (test code = FIO2A) 21.0 ABG SITE (test code = SITEA) Rt RADIAL ARTERY MODIFIED ALLENS (test code = MODALL) Yes CHECK PERFORMED SODIUM (test code = NA/ABG) 135.0 mEq/L 135-148 N POTASSIUM (test code = K/ABG) 3.5 mEq/L 3.5-4.5 N CHLORIDE (test code = CL/ABG) 99 mEq/L 98-106 N GLUCOSE (test code = GLU/ABG) 235 mg/dL 74-99 H HEMATOCRIT (test code = HCT/ABG) 41 % 42-52 L IONIZED CALCIUM (test code = CAIABG) 1.13 mmol/L 1.1-1.37 N TOTAL HGB (test code = THB) 13.9 gram/dL 13.0-17.5 N HGB O2 SAT (test code = HBOSAT) 89.5 % 94.00-98.00 L CARBOXYHEMOGLOBIN (test code = HOHGBT) 4.5 %totalHg 0.5-1.5 HH Results called to and read back by Ibis 10:40 - 10/08/2018; by costa jeff METHEMOGLOBIN (test code = METHGB) 0.2 % 0.0-1.50 N O2 CONTENT (test code = O2CT) 17.5 % vol 18.0-22.0 L POCT GLUCOSE (AUTOMATED)2018-09-29 14:31:36194Jornbega HermannTROPONIN I 2018-09-29 08:54:000.002[facility] HermannBASIC METABOLIC PANEL (NA, K, CL, CO2, GLUCOSE, BUN, CREATININE, CA)2018-09-29 08:42:24766Cbrwhbtb HermannBASIC METABOLIC PANEL (NA, K, CL, CO2, GLUCOSE, BUN, CREATININE, CA)2018-09-29 08:42:003.6[facility] HermannBASIC METABOLIC PANEL (NA, K, CL, CO2, GLUCOSE, BUN, CREATININE, CA)2018-09-29 08:42:77662Ceuwjbif HermannBASIC METABOLIC PANEL (NA, K, CL, CO2, GLUCOSE, BUN, CREATININE, CA)2018-09-29 08:42:0027[facility] BASIC METABOLIC PANEL (NA, K, CL, CO2, GLUCOSE, BUN, CREATININE, CA)2018-09-29 08:42:008[facility] HermannBASIC METABOLIC PANEL (NA, K, CL, CO2, GLUCOSE, BUN, CREATININE, CA)2018-09-29 08:42:0012[facility] HermannBASIC METABOLIC PANEL (NA, K, CL, CO2, GLUCOSE, BUN, CREATININE, CA)2018-09-29 08:42:50238Sfwpjefk [place] BASIC METABOLIC PANEL (NA, K, CL, CO2, GLUCOSE, BUN, CREATININE, CA)2018-09-29 08:42:000.95[facility] HermannBASIC METABOLIC PANEL (NA, K, CL, CO2, GLUCOSE, BUN, CREATININE, CA)2018-09-29 08:42:008.3[facility] HermannBASIC METABOLIC PANEL (NA, K, CL, CO2, GLUCOSE, BUN, CREATININE, CA)2018-09-29 08:42:0084.6[facility] BASIC METABOLIC PANEL (NA, K, CL, CO2, GLUCOSE, BUN, CREATININE, CA)2018-09-29 08:42:60842.6[facility] PghtakwWPSPPNEBM8514-04-01 08:42:001.5[facility] [id number] 00:25:000.32Memorial HermannN-TERMINAL [id number] 23:32:92653Sczkliod HermannCBC WITH [id number] 23:14:005.62[facility] HermannCBC WITH [id number] 23:14:004.06[facility] HermannCBC WITH [id number] 23:14:0012.6[facility] HermannCBC WITH DIFFERENTIAL 2018-09-28 23:14:0038.0[facility] HermannCBC WITH [id number] 23:14:00 93.6[facility] HermannCBC WITH [id number] 23:14:00* Test Item Value Reference Range Interpretation Comments <td ID="[id number]">MCH</t d><td>31.0</td><td>26.1 - 32.7 pg</td><td>[facility]</td><td ID="[id number]"/> (test code = <td ID="[id number]">MCH</td><td>31.0</td><td>26.1 - 32.7 pg</td><td>[facility]</td><td ID="[id number]"/>) 31.0 pg 26.1-32.7 [facility]annCBC WITH [id number] 23:14:0033.2[facility] HermannCBC WITH [id number] 23:14:0047.1[facility] HermannCBC WITH DIFFERENTIAL 2018-09-28 23:14:0014.0[facility] HermannCBC WITH [id number] 23:14:00 200[facility] HermannCBC WITH [id number] 23:14:009.5[facility] CBC WITH [id number] 23:14:000.0[facility] HermannCBC WITH DIFFERENTIAL 2018-09-28 23:14:0056.7[facility] HermannCBC WITH [id number] 23:14:00 2.10[facility] HermannCBC WITH [id number] 23:14:0029.0[facility] CBC WITH [id number] 23:14:009.3[facility] HermannCBC WITH DIFFERENTIAL 2018-09-28 23:14:002.5[facility] HermannCBC WITH [id number] 23:14:00 0.4[facility] HermannCBC WITH [id number] 23:14:003.19[facility] CBC WITH [id number] 23:14:000.12[facility] HermannCBC WITH [id number] 23:14:001.63[facility] HermannCBC WITH DIFFERENTIAL 2018-09-28 23:14:000.52[facility] HermannCBC WITH [id number] 23:14:00 0.14Mem[facility] HermannTroponin [id number] 23:04:000.001[facility] HermannBasic Metabolic Panel (NA, K, CL, CO2, GLUCOSE, BUN, CREATININE, CA)2018-09-28 22:51:78449Fowiyxzy HermannBasic Metabolic Panel (NA, K, CL, CO2, GLUCOSE, BUN, CREATININE, CA)2018-09-28 22:51:003.6[facility] HermannBasic Metabolic Panel (NA, K, CL, CO2, GLUCOSE, BUN, CREATININE, CA)2018-09-28 22:51:23927Kwhxceob [place] Basic Metabolic Panel (NA, K, CL, CO2, GLUCOSE, BUN, CREATININE, CA)2018-09-28 22:51:0025Mem[facility] HermannBasic Metabolic Panel (NA, K, CL, CO2, GLUCOSE, BUN, CREATININE, CA)2018-09-28 22:51:009[facility] HermannBasic Metabolic Panel (NA, K, CL, CO2, GLUCOSE, BUN, CREATININE, CA)2018-09-28 22:51:0013[facility] HermannBasic Metabolic Panel (NA, K, CL, CO2, GLUCOSE, BUN, CREATININE, CA)2018-09-28 22:51:27777Ertgpmmo HermannBasic Metabolic Panel (NA, K, CL, CO2, GLUCOSE, BUN, CREATININE, CA)2018-09-28 22:51:000.88[facility] HermannBasic Metabolic Panel (NA, K, CL, CO2, GLUCOSE, BUN, CREATININE, CA)2018-09-28 22:51:009.1[facility] Basic Metabolic Panel (NA, K, CL, CO2, GLUCOSE, BUN, CREATININE, CA)2018-09-28 22:51:0092.4[facility]ann[facility] Metabolic Panel (NA, K, CL, CO2, GLUCOSE, BUN, CREATININE, CA)2018-09-28 22:51:64578.0[facility] [id number] 22:50:0033 [facility]annProthrombin Time (PT) / [id number] 22:50:0011.1[facility] HermannProthrombin Time (PT) / [id number] 22:50:001.0[facility] HermannTroponin 2018-09-24 21:50:29* Test Item Value Reference Range Interpretation Comments Troponin (test code = 92566-1) <0.006 0-0.04 [facility] changed methodology effective: 06/24/2018 at 10:00 amThe new method has a 99th percentile cutoff of 0.040 ng/mL [facility] natriuretic [id number] 21:28:35* Test Item Value Reference Range Interpretation Comments BNP (test code = 35015-2) 25 pg/mL 0-100 Julian MethodistECG 12 [id number] 21:23:13* Test Item Value Reference Range Interpretation Comments Ventricular rate (test code = 253) 95 Atrial rate (test code = 255) 95 DC interval (test code = 266) 152 QRSD interval (test code = 260) 92 QT interval (test code = 264) 396 QTC interval (test code = 265) 497 P axis 1 (test code = 267) 55 QRS axis 1 (test code = 268) 30 T wave axis (test code = 270) 61 EKG impression (test code = 273) Normal sinus rhythm-P rolonged QT Lateral infarct-Abnormal ECG-In automated comparison with ECG of 17-MAY-2018 16:37,-No significant change was found- [place] MethodistComprehensive metabolic [id number] 21:22:13* Test Item Value Reference Range Interpretation Comments Sodium (test code = 2951-2) 138 135- 148 mEq/L Potassium (test code = 2823-3) 4.0 3.5- 5.0 mEq/L Chloride (test code = 2075-0) 98 98- 112 mEq/L CO2 (test code = 2027-9) 29 24- 31 mEq/L Anion gap (test code = 49267-4) 11@ANIO 7- 15 mEq/L BUN (test code = 3094-0) 18 mg/dL 6-20 Creatinine (test code = 2160-0) 1.20 mg/dL 0.7-1.2 Glucose (test code = 2345-7) 268 mg/dL 65-99 H Calcium (test code = 19109-0) 9.2 mg/dL 8.3-10.2 Protein (test code = 2885-2) 6.3 g/dL 6.3-8.3 4.6-7.0 g/dL1 week 4.4-7.6 g/dL7 months-1year 5.1-7.3 g/dL1-2 years 5.6-7.5 g/dL>3 years 6.0-8.0 g/yB84-617 6.3-8.3 g/dL Albumin (test code = 1751-7) 3.6 g/dL 3.5-5 A/G ratio (test code = 1759-0) 1.3 0.7-3.8 Alkaline phosphatase (test code = 6768-6) 121 U/L 40-129 AST (test code = 1920-8) 24 U/L 10-50 ALT (test code = 1742-6) 21 U/L 5-50 Total bilirubin (test code = 1975-2) 0.3 mg/dL 0-1.2 Lab Interpretation (test code = 17730-9) Abnormal Julian MethodistEstimated [id number] 21:22:12* Test Item Value Reference Range Interpretation Comments Estimated GFR (test code = 5488) 71 mL/min/1.73 m2 Catergory Units InterpretationG1 >=90 Normal or highG2 60-89 Mildly eqjrqrldmI7h 45-59 Mildly to moderately zaayyhjdxH7d 30-44 Moderately to severely decreasedG4 15-29 Severely decreasedG5 <15 Kidney failureThe eGFR was calculated using the Chronic Kidney Disease Epidemiology Collaboration (CKD-EPI) equation. Interpretation is based on recommendations of the National Kid[employer] Foundation-Kidney Disease Outcomes Quality Initiative (NKF-KDOQI) published in 2014. Julian MethodistProthrombin time with [id number] 21:18:04* Test Item Value Reference Range Interpretation Comments Prothrombin time (test code = 5902-2) 12.5 11.5- 14.5 sec INR (test code = 86759-0) 1.0 Th e International Normalized Ratio (INR) is a therapeutic monitoring tool for patients who are stable on oral anticoagulant therapy. An INR of 2.0-3.0 is suggested for deep vein thrombosis/pulmonary embolism. Julian MethodistPartial thromboplastin time, kmmkhmife7267-41-49 21:18:04* Test Item Value Reference Range Interpretation Comments PTT (test code = 18609-0) 28.8 23.0- 36.0 sec PTT therapeutic range for unfractionated heparin is61.0-112.0 seconds which corresponds to Anti-Xa0.3-0.7 U/ml. [facility] MethodistCBC with platelet and oudcanwqyzcg7347-99-46 21:10:05* Test Item Value Reference Range Interpretation Comments WBC (test code = 59111-5) 7.66 4.50- 11.00 k/uL RBC (test code = 87508-6) 4.07 m/uL 4.4-6 L HGB (test code = 718-7) 12.4 g/dL 14-18 L HCT (test code = 4544-3) 37.7 % 41-51 L MCV (test code = 787-2) 92.6 fL 82-100 MCH (test code = 785-6) 30.5 pg 27-34 MCHC (test code = 786-4) 32.9 g/dL 31-37 RDW - SD (test code = 14892-2) 46.9 fL 37-55 MPV (test code = 08706-2) 9.8 fL 8.8-13.2 Platelet count (test code = 81394-6) 203 150- 400 k/uL Nucleated RBC (test code = 30101-0) 0.30 /100 WBC Neutrophils (test code = 23293-4) 61.5 % 39-69 Lymphocytes (test code = 41770-6) 26.8 % 25-45 Monocytes (test code = 88158-8) 6.7 % 0-10 Eosinophils (test code = 93251-1) 2.7 % 0-5 Basophils (test code = 30670-6) 0.5 % 0-1 Lab Interpretation (test code = 11477-8) Abnormal [facility] MethodistXR Chest 1 [id number] 20:21:03Hm Interface, Radiology Results - 09/24/2018 8:24 PM CDTEXAMINATION: XR CHEST 1 VWCLINICAL HISTORY: Chest pain acute nonspecific low prob CADCOMPARISON:May 17, 2018 .IMPRESSION:1. Heart size is normal. Median sternotomy wires overlie the midline.2. Interval left basilar atelectasis.3. No pneumothorax.4. Osseous structures are intact.OPC-[id number] [facility] qvuliko4169-68-15 19:41:51* Test Item Value Reference Range Interpretation Comments POC glucose (test code = 22291-1) 299 mg/dL 65-99 H Meter ID: [id number]: Shun Garcia ([employer]) Lab Interpretation (test code = 11217-2) Abnormal [facility] ED Preliminary Interpretation - Not an Kkcsn5194-03-33 19:32:29Pepito Slade MD 09/25/2018 12:13 [facility] Preliminary Interpretation - Not an OrderPerformed by: Pepito Slade MDAuthorized by: Pepito Slade MD ECG reviewed by ED Physician in the absence of a metal cabinet finisher: yes (2007) Interpretation: Interpretation: normal Rate: ECG rate: 95 ECG rate assessment: normal Rhythm: Rhythm: sinus rhythm Ectopy: Ectopy: none QRS: QRS axis: Normal QRS intervals: NormalConduction: Conduction: normal ST segments: ST segments: NormalT waves: T waves: normal Other findings: Other findings: prolonged qTc interval [facility] GLUCOSE (AUTOMATED)2018-09-20 13:56:95963Xydkuxnk HermannTroponin L2980-07-44 09:34:000.003[facility] HermannTroponin B1870-42-92 01:42:000.000 [facility] HermannN-TERMINAL LAE-WHT7620-39-03 01:33:0091[facility] HermannBasic Metabolic Panel (NA, K, CL, CO2, GLUCOSE, BUN, CREATININE, CA)2018-09-20 01:27:05958Txyyicpi HermannBasic Metabolic Panel (NA, K, CL, CO2, GLUCOSE, BUN, CREATININE, CA)2018-09-20 01:27:003.2[facility] HermannBasic Metabolic Panel (NA, K, CL, CO2, GLUCOSE, BUN, CREATININE, CA)2018-09-20 01:27:0099[facility] Metabolic Panel (NA, K, CL, CO2, GLUCOSE, BUN, CREATININE, CA)2018-09-20 01:27:0025[facility] HermannBasic Metabolic Panel (NA, K, CL, CO2, GLUCOSE, BUN, CREATININE, CA)2018-09-20 01:27:0016[facility] HermannBasic Metabolic Panel (NA, K, CL, CO2, GLUCOSE, BUN, CREATININE, CA)2018-09-20 01:27:0018[facility] Basic Metabolic Panel (NA, K, CL, CO2, GLUCOSE, BUN, CREATININE, CA)2018-09-20 01:27:51708Ubyajkpj HermannBasic Metabolic Panel (NA, K, CL, CO2, GLUCOSE, BUN, CREATININE, CA)2018-09-20 01:27:001.10[facility] HermannBasic Metabolic Panel (NA, K, CL, CO2, GLUCOSE, BUN, CREATININE, CA)2018-09-20 01:27:009.3[facility] Basic Metabolic Panel (NA, K, CL, CO2, GLUCOSE, BUN, CREATININE, CA)2018-09-20 01:27:0071.4[facility] HermannBasic Metabolic Panel (NA, K, CL, CO2, GLUCOSE, BUN, CREATININE, CA)2018-09-20 01:27:0086.6[facility] HermannHepatic Function Panel (ALB, T.PRO, BILI T, BU/BC, ALT, AST, ALK PHOS)2018-09-20 01:27:000.3[facility] HermannHepatic Function Panel (ALB, T.PRO, BILI T, BU/BC, ALT, AST, ALK PHOS) 2018-09-20 01:27:000.2[facility] HermannHepatic Function Panel (ALB, T.PRO, BILI T, BU/BC, ALT, AST, ALK PHOS)2018-09-20 01:27:000.0[facility] HermannHepatic Function Panel (ALB, T.PRO, BILI T, BU/BC, ALT, AST, ALK PHOS)2018-09-20 01:27:006.6[facility] HermannHepatic Function Panel (ALB, T.PRO, BILI T, BU/BC, ALT, AST, ALK PHOS)2018-09-20 01:27:003.9[facility] HermannHepatic Function Panel (ALB, T.PRO, BILI T, BU/BC, ALT, AST, ALK PHOS)2018-09-20 01:27:38282Rxxddmwt HermannHepatic Function Panel (ALB, T.PRO, BILI T, BU/BC, ALT, AST, ALK PHOS) 2018-09-20 01:27:0039[facility] HermannHepatic Function Panel (ALB, T.PRO, BILI T, BU/BC, ALT, AST, ALK PHOS)2018-09-20 01:27:0021[facility] HermannCBC WITH BUBZYWOGXVIK6644-51-40 01:11:008.70[facility] HermannCBC WITH DIFFERENTIAL 2018-09-20 01:11:004.22[facility] HermannCBC WITH NWLUPWBFOMWQ6793-69-81 01:11:00 13.2[facility] HermannCBC WITH QRPNZZSITRSD9053-02-24 01:11:0038.9[facility] CBC WITH FOAZIORKRAKP7202-68-57 01:11:0092.2[facility] HermannCBC WITH ZZJHRYLAYLGL0358-33-73 01:11:00* Test Item Value Reference Range Interpretation Comments <td ID="[id number]">MCH</t d><td>31.3</td><td>26.1 - 32.7 pg</td><td>[facility]</td><td ID="[id number]"/> (test code = <td ID="[id number]">MCH</td><td>31.3</td><td>26.1 - 32.7 pg</td><td>[facility]</td><td ID="[id number]"/>) 31.3 pg 26.1-32.7 [facility]annCBC WITH JQQGUBSGMJEA6552-53-08 01:11:0033.9[facility] HermannCBC WITH KWFMMRSONNRA3520-68-44 01:11:0047.6[facility]annCBC WITH DIFFERENTIAL 2018-09-20 01:11:0014.3[facility]annCBC WITH JOEJZSXXPMEL1069-55-47 01:11:00 217[facility] HermannCBC WITH VRJPZVTFYSYK5876-57-42 01:11:009.7[facility] CBC WITH SMMVSDRRROBC2588-87-80 01:11:000.0[facility]annCBC WITH DIFFERENTIAL 2018-09-20 01:11:0067.6[facility] HermannCBC WITH WPVANASDZCCJ8496-02-58 01:11:00 1.10[facility]annCBC WITH PCUBTTBAGSWW1963-95-50 01:11:0021.7[facility] CBC WITH YNWUDAODIMBW6917-55-51 01:11:007.6[facility]annCBC WITH DIFFERENTIAL 2018-09-20 01:11:001.7[facility] HermannCBC WITH TMTRJMLDAUYN3455-07-03 01:11:00 0.3[facility] HermannCBC WITH XADHXMAZZFBL1929-16-12 01:11:005.87[facility] CBC WITH LALVXLPJRKOF2338-53-81 01:11:000.10[facility] HermannCBC WITH DDZUCYMIHEGL7072-80-27 01:11:001.89[facility]annCBC WITH DIFFERENTIAL 2018-09-20 01:11:000.66[facility] HermannCBC WITH FJWPOVKZELRM5129-21-73 01:11:00 0.15[facility] HermannCBC WITH DKAHPKDHOOCD4283-68-88 01:11:000.03[facility] B-TYPE NATRIURETIC XOONZLA6181-01-49 01:07:00* Test Item Value Reference Range Interpretation Comments B-TYPE NATRIURETIC PEPTIDE (test code = BNP) 15.1 PG/ML 0-100 N BASIC METABOLIC [id number] 01:04:00* Test Item Value Reference Range Interpretation Comments SODIUM (test code = NA) 139 mEq/L 134-147 N POTASSIUM (test code = K) 3.5 mEq/L 3.4-5.0 N CHLORIDE (test code = CL) 107 mEq/L 100-108 N CARBON DIOXIDE (test code = CO2) 25 mEq/L 21-33 N ANION GAP (test code = GAP) 11 0-20 N GLUCOSE (test code = GLU) 129 mg/dL 70-110 H BLOOD UREA NITROGEN (test code = BUN) 13 mg/dL 7-18 N GLOMERULAR FILTRATION RATE (test code = GFR) 71.4 95-105 L Units of measure = ml/min/1.73 m2 CREATININE (test code = CREAT) 1.1 mg/dL 0.6-1.3 N CALCIUM (test code = CA) 7.7 mg/dL 8.0-10.5 L VNGARWMG-[id number] 01:04:00* Test Item Value Reference Range Interpretation Comments TROPONIN-I (test code = TROPI) < 0.015 ng/mL 0.000-0.045 N Negative: <= 0.045 Positive: >= 0.046 Correlation with serial results, other cardiac markers andclinical findings is necessary to determine the clinicalsignificance of this result. Results using different methodologies should not be comparedto one another as quantitative results may vary by method. - XR CHEST 2 [id number] 00:54:00 FAX: Ankita Billingsley MD [phone] [place]: St: REG FAX: Rodney Dubon MD [phone] FAX: Blake Cazares MD [phone] Name: ARANZA LOPEZ [facility] : 1970 Age/S: 48/M [address] [place] [address] Unit #: [id number] Loc: [place] [address] Phys: Rodney Dubon MD Acct: [id number] Dis Date: Status: REG ER PH ONE #: [phone] Exam Date: 09/16/2018 0031 FAX #: [phone] Reason: chest pain EXAMS: CPT CODE: [id number] XR CHEST 2 V 20740 EXAM: CR, XR chest 2 views: 09/16/2018, 0029 hours HISTORY: chest pain TECHNIQUE: Frontal and lateral chest radiographs are submitted. COMPARISON: None available. FINDINGS: Trachea is in midl ine. Heart is normal in size. Midline sternotomy clips are present. Pul monary vascularity is not congested. Opacities in the right infrahilar jailyn ng. No airspace consolidation, pneumothorax or pleural effusion is seen. Osseous structures are stable. IMPRESSION: Right infrahil ar opacity may represent atelectasis or pneumonia. SL: [JSYED-H] at 0054 Reported and signed by: Jorje Blackmon M.D. CC: Deepak Ruby MD; Rodney Dubon MD; Blake Cruz M.D. Technologist: Teri Bernabe RT(R) Trnscrd Date/Time/By: 0 09/16/2018 (0054) : By: [email or web address] Orig Print D/T: S: 09/16/2018 (0057) PAGE 1 Signed Report CBC W/AUTO [id number] 00:28:00* Test Item Value Reference Range Interpretation Comments WHITE BLOOD CELL (test code = WBC) 7.22 x10 3/uL 4.5-11.0 RED BLOOD CELL (test code = RBC) 4.36 x10 6/uL 4.00-5.60 N HEMOGLOBIN (test code = HGB) 13.6 g/dL 12.5-16.9 N HEMATOCRIT (test code = HCT) 39.7 % 37.5-50.7 N MEAN CELL VOLUME (test code = MCV) 91.1 fL 81.0-99.0 N MEAN CELL HGB (test code = MCH) 31.2 pg 27.0-33.0 N MEAN CELL HGB CONCETRATION (test code = MCHC) 34.3 g/dL 33.0-37. 0 N RED CELL DISTRIBUTION WIDTH CV (test code = RDW) 14.1 % 11.5- 14.5 N RED CELL DISTRIBUTION WIDTH SD (test code = RDW-SD) 47.2 fL 37 .0-54.0 N PLATELET COUNT (test code = PLT) 218 x10 3/uL 150-400 N MEAN PLATELET VOLUME (test code = MPV) 9.4 fL 7.0-9.0 H NEUTROPHIL % (test code = NT%) 59.1 % 56.0-77.0 N IMMATURE GRANULOCYTE % (test code = IG%) 1.0 % 0.0-2.0 N LYMPHOCYTE % (test code = LY%) 29.2 % 14.0-32.0 N MONOCYTE % (test code = MO%) 7.5 % 4.8-9.0 N EOSINOPHIL % (test code = EO%) 2.6 % 0.3-3.7 N BASOPHIL % (test code = BA%) 0.6 % 0.0-2.0 N NUCLEATED RBC % (test code = NRBC%) 0.0 % 0-0 N NEUTROPHIL # (test code = NT#) 4.27 x10 3/uL 2.0-7.6 N IMMATURE GRANULOCYTE # (test code = IG#) 0.07 x10 3/uL 0.00-0.03 H LYMPHOCYTE # (test code = LY#) 2.11 x10 3/uL 1.0-3.8 N MONOCYTE # (test code = MO#) 0.54 x10 3/uL 0.1-0.8 N EOSINOPHIL # (test code = EO#) 0.19 x10 3/uL 0.0-0.2 N BASOPHIL # (test code = BA#) 0.04 x10 3/uL 0.0-0.2 N NUCLEATED RBC # (test code = NRBC#) 0.00 x10 3/uL 0.0-0.1 N MANUAL DIFF REQUIRED (test code = MDIFF) NO [id number] 19:28:00* Test Item Value Reference Range Interpretation Comments GLUBED (test code = GLUBED) 154 MG/DL 70-110 H Performed by certified skoog patching machine operator at [facility] [id number] 12:07:00* Test Item Value Reference Range Interpretation Comments GLUBED (test code = GLUBED) 213 MG/DL 70-110 H Performed by certified skoog patching machine operator at [facility] YFYQIW4619-51-29 07:55:00* Test Item Value Reference Range Interpretation Comments GLUBED (test code = GLUBED) 203 MG/DL 70-110 H Performed by certified skoog patching machine operator at [facility] [id number] 20:11:00* Test Item Value Reference Range Interpretation Comments GLUBED (test code = GLUBED) 216 MG/DL 70-110 H Performed by certified skoog patching machine operator at [facility] [id number] 16:32:00* Test Item Value Reference Range Interpretation Comments GLUBED (test code = GLUBED) 257 MG/DL 70-110 H Performed by certified skoog patching machine operator at [facility] [id number] 11:24:00* Test Item Value Reference Range Interpretation Comments GLUBED (test code = GLUBED) 253 MG/DL 70-110 H Performed by certified skoog patching machine operator at [facility] [id number] 08:54:00* Test Item Value Reference Range Interpretation Comments GLUBED (test code = GLUBED) 201 MG/DL 70-110 H Performed by certified skoog patching machine operator at [facility] COMPREHENSIVE METABOLIC [id number] 07:38:00* Test Item Value Reference Range Interpretation Comments SODIUM (test code = NA) 139 mEq/L 134-147 N POTASSIUM (test code = K) 3.5 mEq/L 3.4-5.0 CHLORIDE (test code = CL) 104 mEq/L 100-108 N CARBON DIOXIDE (test code = CO2) 31 mEq/L 21-33 N ANION GAP (test code = GAP) 8 0-20 N GLUCOSE (test code = GLU) 216 mg/dL 70-110 H BLOOD UREA NITROGEN (test code = BUN) 13 mg/dL 7-18 N GLOMERULAR FILTRATION RATE (test code = GFR) 71.4 95-105 L Units of measure = ml/min/1.73 m2 CREATININE (test code = CREAT) 1.1 mg/dL 0.6-1.3 N TOTAL PROTEIN (test code = PROT) 6.0 g/dL 6.4-8.2 L ALBUMIN (test code = ALB) 3.00 g/dL 3.4-5.0 L CALCIUM (test code = CA) 8.1 mg/dL 8.0-10.5 N BILIRUBIN TOTAL (test code = BILT) 0.20 mg/dL 0.0-1.0 SGOT/AST (test code = AST) 14 IUnit/L 15-37 L SGPT/ALT (test code = ALT) 24 IUnit/L 15-65 N ALKALINE PHOSPHATASE TOTAL (test code = ALKP) 90 IUnit/L 20-125 N CBC W/AUTO [id number] 07:19:00* Test Item Value Reference Range Interpretation Comments WHITE BLOOD CELL (test code = WBC) 4.67 x10 3/uL 4.5-11.0 N RED BLOOD CELL (test code = RBC) 3.73 x10 6/uL 4.00-5.60 L HEMOGLOBIN (test code = HGB) 11.6 g/dL 12.5-16.9 L HEMATOCRIT (test code = HCT) 34.6 % 37.5-50.7 L MEAN CELL VOLUME (test code = MCV) 92.8 fL 81.0-99.0 N MEAN CELL HGB (test code = MCH) 31.1 pg 27.0-33.0 N MEAN CELL HGB CONCETRATION (test code = MCHC) 33.5 g/dL 33.0-37. 0 N RED CELL DISTRIBUTION WIDTH CV (test code = RDW) 14.2 % 11.5- 14.5 N RED CELL DISTRIBUTION WIDTH SD (test code = RDW-SD) 47.4 fL 37 .0-54.0 N PLATELET COUNT (test code = PLT) 190 x10 3/uL 150-400 N MEAN PLATELET VOLUME (test code = MPV) 9.8 fL 7.0-9.0 H NEUTROPHIL % (test code = NT%) 63.4 % 56.0-77.0 N IMMATURE GRANULOCYTE % (test code = IG%) 1.1 % 0.0-2.0 N LYMPHOCYTE % (test code = LY%) 25.3 % 14.0-32.0 N MONOCYTE % (test code = MO%) 7.7 % 4.8-9.0 N EOSINOPHIL % (test code = EO%) 2.1 % 0.3-3.7 N BASOPHIL % (test code = BA%) 0.4 % 0.0-2.0 N NUCLEATED RBC % (test code = NRBC%) 0.0 % 0-0 N NEUTROPHIL # (test code = NT#) 2.96 x10 3/uL 2.0-7.6 N IMMATURE GRANULOCYTE # (test code = IG#) 0.05 x10 3/uL 0.00-0.03 H LYMPHOCYTE # (test code = LY#) 1.18 x10 3/uL 1.0-3.8 N MONOCYTE # (test code = MO#) 0.36 x10 3/uL 0.1-0.8 N EOSINOPHIL # (test code = EO#) 0.10 x10 3/uL 0.0-0.2 N BASOPHIL # (test code = BA#) 0.02 x10 3/uL 0.0-0.2 N NUCLEATED RBC # (test code = NRBC#) 0.00 x10 3/uL 0.0-0.1 N MANUAL DIFF REQUIRED (test code = MDIFF) NO [id number] 03:42:00* Test Item Value Reference Range Interpretation Comments TROPONIN-I (test code = TROPI) < 0.015 ng/mL 0.000-0.045 N Negative: <= 0.045 Positive: >= 0.046 Correlation with serial results, other cardiac markers andclinical findings is necessary to determine the clinicalsignificance of this result. Results using different methodologies should not be comparedto one another as quantitative results may vary by method. COMMENTS: 3 troponins total (including troponin done in ED)LACTIC ACID 2ND [id number] 02:43:00* Test Item Value Reference Range Interpretation Comments LACTIC ACID 2ND REPEAT (test code = LACT2) 2.5 mmol/L 0.4-1.9 H [id number] 00:32:00* Test Item Value Reference Range Interpretation Comments TROPONIN-I (test code = TROPI) < 0.015 ng/mL 0.000-0.045 N Negative: <= 0.045 Positive: >= 0.046 Correlation with serial results, other cardiac markers andclinical findings is necessary to determine the clinicalsignificance of this result. Results using different methodologies should not be comparedto one another as quantitative results may vary by method. COMMENTS: 3 troponins total (including troponin done in ED)URINALYSIS COMPLETE 2018-09-11 00:22:00* Test Item Value Reference Range Interpretation Comments UA COLOR (test code = COLU) YELLOW YEL/STRAW UA APPEARANCE (test code = APPU) CLEAR CLEAR UA GLUCOSE DIPSTICK (test code = DGLUU) NEGATIVE NEGATIVE UA BILIRUBIN DIPSTICK (test code = BILU) NEGATIVE NEGATIVE UA KETONE DIPSTICK (test code = KETU) NEGATIVE NEGATIVE UA SPECIFIC GRAVITY (test code = SGU) 1.025 1.005-1.030 N UA BLOOD DIPSTICK (test code = JOAQUIN) NEGATIVE NEGATIVE UA PH DIPSTICK (test code = ROXIE) 5.0 5.0-7.0 N UA PROTEIN DIPSTICK (test code = PROU) NEGATIVE NEGATIVE UA UROBILINIOGEN DIPSTICK (test code = URO) 0.2 mg/dL 0.2-1.0 UA NITRITE DIPSTICK (test code = TWIN) NEGATIVE NEGATIVE UA LEUKOCYTE ESTERASE DIPSTICK (test code = LEUU) TRACE NEGA TIVE A UA WBC (test code = WBCU) 0-3 WBC/HPF 0-3 UA RBC (test code = RBCU) 0-3 RBC/HPF 0-3 UA BACTERIA (test code = BACU) NONE SEEN /HPF NONE SEEN UA SQUAMOUS CELLS (test code = SQU) NONE SEEN /HPF NONE SEEN [id number] 23:51:00* Test Item Value Reference Range Interpretation Comments DIGOXIN (test code = DIG) 0.1 NG/ML 0.8-2.0 L LACTIC ACID [id number] 23:21:00* Test Item Value Reference Range Interpretation Comments LACTIC ACID REPEAT (test code = LACTR) 2.1 mmol/l 0.4-1.9 H - CTA ABD PEL W [id number] 22:16:00 Name: ARANZA LOPEZ [facility] : 1970 Age/S: 48 / M [address] [place] [address] Unit #: [id number] Loc: [place] [address] Phys: Coral Fonseca MD Acct: [id number] Dis Date: Status: REG ER PHONE #: [phone] Exam Date: 09/10/20182121 FAX #: [phone] Reason: dissection protocol EXAMS: CPT CODE: [id number] CTA ABD PEL W CONT 61908 Clinical Indication: dissection protocol Comparison: CTA chest [...] PAGE 1 Signed Report (CONTINUED) Name: ARANZA LOPEZ [facility] : 1970 Age/S: 48 / M [address] [place] [address] Unit #: [id number] Loc: [place] [address] Phys: Jean Carlos Fonseca MD Acct: [id number] Di s Date: Status: REG ER PHONE #: Exam Date: 09/10/20182121 FAX #: [phone] Reason: dissection protocol EXAMS: CPT CODE: [id number] CTA ABD PEL W CONT 41521 <Continued> BILIARY TREE: The common bile duct [...] 2 Signed R e[place] (CONTINUED) Name: ARANZA LOPEZ [facility] : 1970 Age/S: 48 / M [address] Unit #: [id number] Loc: [place] [address] Phys: Coral Fonseca MD Acct: [id number] Dis Date: Status: REG ER PHONE #: [phone] Exam Date: 09/10/20182121 FAX #: [phone] Reason: dissection protocol EXAMS: CPT CODE: [id number] CTA ABD PEL W CONT 81307 <Continued> IMPRESSION: This study is suboptimal due to poor bolus timing and body habitus. This study is nondiagnostic for evaluating dissection since the contrast phase is in the portal venous phase rather than in the arterial phase. 1. Hepatosplenomegaly. 2. Cholecystectomy. 3. Constipation. SL: JOEVU-H at 2216 Reported and signed by: Joe Tomlin M.D. CC: Deepak Ruby MD; Coral Fonseca MD; Blake Cruz M.D. Technologist:Fanny Kennedy, (R) CTDI: DLP: Trnscb Date/Time: 09/10/2018 (2216) t.MILINDR.LNV Orig Print D/T: S: 09/10/2018 (9) PAGE 3 Signed Report - CT ANGIO [id number] 22:16:00 Name: HEBER LOPEZY [facility] : 1970 Age/S: 48 / M [address] [place] [address] Blvd Unit #: [id number] Loc: [place] [address] Phys: Jean Carlos Fonseca MD Acct: [id number] Di s Date: Status: REG ER PHONE #: 2 [phone] Exam Date: 09/10/20182121 FAX #: Reason: dissection protocol, cp EXAMS: CPT CODE: [id number] CT ANGIO CHEST 42006 Clinical Indication: diss ection protocol Comparison: CTA [...] PAGE 1 Signed Report (CONTINUED) Name: ARANZA LOPEZ [facility] : 1970 Age/S: 48 / M [address] [place] [address] Unit #: [id number] Loc: [place] [address] Phys: Jean Carlos Fonseca MD Acct: [id number] Di s Date: Status: REG ER PHONE #: 2 [phone] Exam Date: 09/10/20182121 FAX #: Reason: dissection protocol, cp EXAMS: CPT CODE: [id number] CT ANGIO CHEST 21448 <Continued> BILIARY TREE: The common bile duct [...] 2 Signed R e[place] (CONTINUED) Name: ARANZA LOPEZ [facility] : 1970 Age/S: 48 / M [address] Unit #: [id number] Loc: [place] [address] Phys: Coral Fonseca MD Acct: [id number] Dis Date: Status: REG ER PHONE #: [phone] Exam Date: 09/10/20182121 FAX #: [phone] Reason: dissection protocol, cp EXAMS: CPT CODE: [id number] CT ANGIO CHEST 43326 <Continued> IMPRESSION: This study is suboptimal due [...] RT(R) CTDI: DLP: Trnscb Date/Time: 09/10/2018 (2215) t.MILINDR.LNV Orig Print D/T: S: 09/10/2018 (2184) PAGE 3 Signed Report B-TYPE NATRIURETIC [id number] 21:21:00* Test Item Value Reference Range Interpretation Comments B-TYPE NATRIURETIC PEPTIDE (test code = BNP) 17.8 PG/ML 0-100 N - XR CHEST 1 [id number] 21:16:00 FAX: Ankita Billingsley MD [phone] [place]: St: REG FAX: Coral Fonseca MD [phone] FAX: Blake Cazares MD [phone] Name: DEVONTEARANZA [facility] : 1970 Age/S: 48/M [address] [place], [place] [address]vd Unit #: [id number] Loc: G.ERS[address] [place] [address] Phys: Coral Fonseca MD Acct: [id number] Dis Date: Status: REG ER PH ONE #: [phone] Exam Date: 09/10/20182051 FAX #: [phone] Reason: dissection protocol EXAMS: CPT CODE: [id number] XR CHEST 1 V 57872 Study: - XR C HEST 1 V 09/10/2018 8:23 PM Patient Name: ARANZA LOPEZ MR: [id number] 68 : 1970; Age: 48 years y/o [...] No acute abnormality as above discussed. SL: JH-H at 2116 Reported and signed by: Jean Carlos Ford M.D. PAGE 1 Signed Report (CONTINUED) FAX: Ankita Billingsley MD [phone] [place]: St: REG FAX: Coral Fonseca MD [phone] FAX: Blake Ford ra, MD [phone] Name: ARANZA LOPEZ [facility] Scott montanez [place] : 1970 Age/S: 48/M [address] [place] [address] Unit #: [id number] Loc: [address] [address] Phys: Coral Fonseca MD Acct: [id number] Dis Date: Status: REG ER PHONE #: [phone] Exam Date: 09/10/20182051 FAX #: [phone] Reason: dissection protocol EXAMS: CPT CODE: [id number] XR CHEST 1 V 12455 < Continued> CC: Deepak Ruby MD; Coral Fonseca MD; Blake Cruz M.D. Technologist: VIDAL Ramirez RT(R); Amparo Daniel RT(R) Trnscrd Date/Time/By: 09/10/2018 (2115) : By: [email or web address] Orig Print D/T: S: 09/10/2018 (2118) PAGE 2 Signed Report - XR ELBOW 2 VIEWS RT 2018-09-10 21:15:00 FAX: Ankita Billingsley MD [phone] [place]: St: REG FAX: Coral Fonseca MD [phone] FAX: Blake Cazares MD [phone] Name: DEVONTEARANZA [facility] : 1970 Age/S: 48/M [address] [place] [address] Unit #: [id number] Loc: [address] [address] Phys: Coral Fonseca MD Acct: [id number] Dis Date: Status: REG ER PH ONE #: [phone] Exam Date: 09/10/20182051 FAX #: [phone] Reason: fall EXAMS: CPT CODE: [id number] [place] [address] [place] [address] Clinical Indic ation: fall; Comparison: None FINDINGS: [...] or dislocation of the right elbow. SL: LANVU-H at 2114 Reported and signed by: Joe Tomlin M.D. CC: Deepak Ruby MD; Coral Fonseca MD; Blake Cruz M.D. Technologist: VIDAL Ramirez RT(R); Amparo Daniel RT(R) Trnscrd Date/Time/By: 09/10/2018 ( 2114) : By: [email or web address] Orig Print D/T: S: 09/10/2018 (2117) PAGE 1 Signed Report BASIC METABOLIC [id number] 21:09:00* Test Item Value Reference Range Interpretation Comments SODIUM (test code = NA) 139 mEq/L 134-147 N POTASSIUM (test code = K) 2.7 mEq/L 3.4-5.0 LL CHLORIDE (test code = CL) 102 mEq/L 100-108 N CARBON DIOXIDE (test code = CO2) 29 mEq/L 21-33 N ANION GAP (test code = GAP) 11 0-20 N GLUCOSE (test code = GLU) 212 mg/dL 70-110 H BLOOD UREA NITROGEN (test code = BUN) 15 mg/dL 7-18 N GLOMERULAR FILTRATION RATE (test code = GFR) 58.9 95-105 L Units of measure = ml/min/1.73 m2 CREATININE (test code = CREAT) 1.3 mg/dL 0.6-1.3 N CALCIUM (test code = CA) 8.6 mg/dL 8.0-10.5 N HEPATIC FUNCTION [id number] 21:09:00* Test Item Value Reference Range Interpretation Comments TOTAL PROTEIN (test code = PROT) 6.5 g/dL 6.4-8.2 N ALBUMIN (test code = ALB) 3.40 g/dL 3.4-5.0 N BILIRUBIN TOTAL (test code = BILT) 0.40 mg/dL 0.0-1.0 N BILIRUBIN DIRECT (test code = BILD) 0.10 MG/DL 0.0-0.30 N BILIRUBIN INDIRECT (test code = BILIND) 0.30 MG/DL SGOT/AST (test code = AST) 19 IUnit/L 15-37 N SGPT/ALT (test code = ALT) 25 IUnit/L 15-65 N ALKALINE PHOSPHATASE TOTAL (test code = ALKP) 112 IUnit/L 20-125 N CBC W/AUTO [id number] 20:50:00* Test Item Value Reference Range Interpretation Comments WHITE BLOOD CELL (test code = WBC) 7.22 x10 3/uL 4.5-11.0 N RED BLOOD CELL (test code = RBC) 4.05 x10 6/uL 4.00-5.60 N HEMOGLOBIN (test code = HGB) 12.4 g/dL 12.5-16.9 L HEMATOCRIT (test code = HCT) 36.8 % 37.5-50.7 L MEAN CELL VOLUME (test code = MCV) 90.9 fL 81.0-99.0 N MEAN CELL HGB (test code = MCH) 30.6 pg 27.0-33.0 N MEAN CELL HGB CONCETRATION (test code = MCHC) 33.7 g/dL 33.0-37. 0 N RED CELL DISTRIBUTION WIDTH CV (test code = RDW) 14.0 % 11.5- 14.5 N RED CELL DISTRIBUTION WIDTH SD (test code = RDW-SD) 46.2 fL 37 .0-54.0 N PLATELET COUNT (test code = PLT) 209 x10 3/uL 150-400 N MEAN PLATELET VOLUME (test code = MPV) 9.8 fL 7.0-9.0 H NEUTROPHIL % (test code = NT%) 53.9 % 56.0-77.0 L IMMATURE GRANULOCYTE % (test code = IG%) 1.0 % 0.0-2.0 N LYMPHOCYTE % (test code = LY%) 36.6 % 14.0-32.0 H MONOCYTE % (test code = MO%) 6.2 % 4.8-9.0 N EOSINOPHIL % (test code = EO%) 1.9 % 0.3-3.7 N BASOPHIL % (test code = BA%) 0.4 % 0.0-2.0 N NUCLEATED RBC % (test code = NRBC%) 0.0 % 0-0 N NEUTROPHIL # (test code = NT#) 3.89 x10 3/uL 2.0-7.6 N IMMATURE GRANULOCYTE # (test code = IG#) 0.07 x10 3/uL 0.00-0.03 H LYMPHOCYTE # (test code = LY#) 2.64 x10 3/uL 1.0-3.8 N MONOCYTE # (test code = MO#) 0.45 x10 3/uL 0.1-0.8 N EOSINOPHIL # (test code = EO#) 0.14 x10 3/uL 0.0-0.2 N BASOPHIL # (test code = BA#) 0.03 x10 3/uL 0.0-0.2 N NUCLEATED RBC # (test code = NRBC#) 0.00 x10 3/uL 0.0-0.1 N MANUAL DIFF REQUIRED (test code = MDIFF) NO TROPONIN-I [id number] 20:43:00* Test Item Value Reference Range Interpretation Comments TROPONIN-I RAPID (test code = TROPIRAP) 0.00 ng/mL 0.00-0.08 N Performed by certified skoog patching machine operator at [facility] Negative: <= 0.08 Positive: >= 0.09An elevated troponin value alone is not sufficient todiagnose a myocardial infarction. Rather, the patient sclinical presentation (history, physical exam) and ECGshould be used in conjunction with troponin in thediagnostic evaluation of suspected myocardial infarction. Aserial sampling protocol is recommended to facilitate the identification of temporal changes in troponin levels characteristic of IA. LACTIC ACID [id number] 20:35:00* Test Item Value Reference Range Interpretation Comments LACTIC ACID POC (test code = LACTP) 3.1 MMOL/L 0.90-1.70 H Performed by certified skoog patching machine operator at [facility] [id number] 04:55:00* Test Item Value Reference Range Interpretation Comments GLUBED (test code = GLUBED) 223 MG/DL 70-110 H Performed by certified skoog patching machine operator at [facility] [id number] 21:25:00* Test Item Value Reference Range Interpretation Comments GLUBED (test code = GLUBED) 195 MG/DL 70-110 H Performed by certified skoog patching machine operator at [facility] [id number] 12:25:00* Test Item Value Reference Range Interpretation Comments GLUBED (test code = GLUBED) 166 MG/DL 70-110 H Performed by certified skoog patching machine operator at [facility] [id number] 08:14:00* Test Item Value Reference Range Interpretation Comments GLUBED (test code = GLUBED) 218 MG/DL 70-110 H Performed by certified skoog patching machine operator at [facility] [id number] 21:21:00* Test Item Value Reference Range Interpretation Comments GLUBED (test code = GLUBED) 193 MG/DL 70-110 H Performed by certified skoog patching machine operator at [facility] [id number] 17:27:00* Test Item Value Reference Range Interpretation Comments GLUBED (test code = GLUBED) 184 MG/DL 70-110 H Performed by certified skoog patching machine operator at [facility] [id number] 12:21:00* Test Item Value Reference Range Interpretation Comments GLUBED (test code = GLUBED) 187 MG/DL 70-110 H Performed by certified skoog patching machine operator at [facility] [id number] 10:20:00* Test Item Value Reference Range Interpretation Comments GLUBED (test code = GLUBED) 185 MG/DL 70-110 H Performed by certified skoog patching machine operator at [facility] [id number] 20:07:00* Test Item Value Reference Range Interpretation Comments GLUBED (test code = GLUBED) 238 MG/DL 70-110 H Performed by certified skoog patching machine operator at [facility] [id number] 17:10:00* Test Item Value Reference Range Interpretation Comments GLUBED (test code = GLUBED) 220 MG/DL 70-110 H Performed by certified skoog patching machine operator at [facility] [id number] 12:07:00* Test Item Value Reference Range Interpretation Comments GLUBED (test code = GLUBED) 197 MG/DL 70-110 H Performed by certified skoog patching machine operator at [facility] [id number] 08:58:00* Test Item Value Reference Range Interpretation Comments GLUBED (test code = GLUBED) 185 MG/DL 70-110 H Performed by certified skoog patching machine operator at [facility] [id number] 21:18:00* Test Item Value Reference Range Interpretation Comments GLUBED (test code = GLUBED) 251 MG/DL 70-110 H Performed by certified skoog patching machine operator at [facility] [id number] 18:01:00* Test Item Value Reference Range Interpretation Comments GLUBED (test code = GLUBED) 202 MG/DL 70-110 H Performed by certified skoog patching machine operator at [facility] [id number] 16:46:00* Test Item Value Reference Range Interpretation Comments GLUBED (test code = GLUBED) 197 MG/DL 70-110 H Performed by certified skoog patching machine operator at [facility] [id number] 07:11:00* Test Item Value Reference Range Interpretation Comments GLUBED (test code = GLUBED) 200 MG/DL 70-110 H Performed by certified skoog patching machine operator at [facility] [id number] 03:39:00* Test Item Value Reference Range Interpretation Comments TROPONIN-I (test code = TROPI) < 0.015 ng/mL 0.000-0.045 N Negative: <= 0.045 Positive: >= 0.046 Correlation with serial results, other cardiac markers andclinical findings is necessary to determine the clinicalsignificance of this result. Results using different methodologies should not be comparedto one another as quantitative results may vary by method. COMMENTS: 3 troponins total (including troponin done in ED)- CT ANGIO CHEST 2018-08-28 01:22:00 Name: ARANZA LOPEZ [facility] : 1970 Age/S: 48 / M [address] [place] [address] Blvd Unit #: [id number] Loc: [place] [address] Phys: Song Echavarria MD Acct: [id number] Dis Date: Status: ADM IN PHONE #: [phone] Exam Date: 08/28/2018 0022 FAX #: [phone] Reason: chest pain EXAMS: CPT CODE: [id number] CT ANGIO CHEST 76841 PROCEDURE: CT ANGIOGRAM OF THE CHEST WITH [...] PAGE 1 Signed Report (CONTINUED) Name: ARANZA LOPEZ [facility] : 1970 Age/S: 48 / M [address] [place] [address] Blvd Unit #: [id number] Loc: [place] [address] Phys: Song Echavarria MD Acct: [id number] Dis Date: Status: ADM IN PHONE #: [phone] Exam Date: 08/28/2018 0022 FAX #: [phone] Reason: chest pain EXAMS: CPT CODE: [id number] CT ANGIO CHEST 25519 < Continued> ADDITIONAL FINDINGS: Note is made of bilateral gynecomastia. IMPRESSION: 1. No acute CT abnormalities of the lungs, mediastinum or pleural spaces are detected. The CT appearance of the chest has not significantly changed when compared the prior study dated 07/22/2018. SL: 131 at 0122 Reported and signed by: Richard Pickard M.D. CC: Deepak Ruby MD; Blake Cruz M.D.; Song Echavarria MD Technologist:RT Azul(R) CTDI: DLP: Trnscb Date/Time: 08/28/2018 (012) [email or web address] Orig Print D/T: S: 08/28/2018 (0120) PAGE 2 Signed Report [id number] 00:52:00* Test Item Value Reference Range Interpretation Comments GLUBED (test code = GLUBED) 173 MG/DL 70-110 H Performed by certified skoog patching machine operator at [facility] [id number] 00:46:00* Test Item Value Reference Range Interpretation Comments TROPONIN-I (test code = TROPI) < 0.015 ng/mL 0.000-0.045 N Negative: <= 0.045 Positive: >= 0.046 Correlation with serial results, other cardiac markers andclinical findings is necessary to determine the clinicalsignificance of this result. Results using different methodologies should not be comparedto one another as quantitative results may vary by method. COMMENTS: 3 troponins total (including troponin done in ED)TROPONIN-I RAPID 2018-08-27 23:44:00* Test Item Value Reference Range Interpretation Comments TROPONIN-I RAPID (test code = TROPIRAP) 0.00 ng/mL 0.00-0.08 N Performed by certified skoog patching machine operator at [facility] Negative: <= 0.08 Positive: >= 0.09An elevated troponin value alone is not sufficient todiagnose a myocardial infarction. Rather, the patient sclinical presentation (history, physical exam) and ECGshould be used in conjunction with troponin in thediagnostic evaluation of suspected myocardial infarction. Aserial sampling protocol is recommended to facilitate the identification of temporal changes in troponin levels characteristic of IA. CHEMISTRY 8 [id number] 23:23:00* Test Item Value Reference Range Interpretation Comments ISTAT-SODIUM (test code = NAP) MMOL/L 134-147 ISTAT-POTASSIUM (test code = KP) MMOL/L 3.4-5.0 ISTAT-CHLORIDE (test code = CLP) MMOL/L 100-108 ISTAT CARBON DIOXIDE (test code = ISTAT-CO2) mmol/L 21-33 N ISTAT CALCIUM IONIZED (test code = ISTAT-KAREEM) MG/DL 1.12-1.3 2 ISTAT-GLUCOSE (test code = GLUP) MG/DL 70-110 H ISTAT-BUN (test code = BUNP) MG/DL 7-18 N BEDSIDE CREATININE (test code = CREATBED) MG/DL 0.6-1.3 N GLOMERULAR FILTRATION RATE POC (test code = GFRBED) 69 ML/MIN CHEMISTRY 8 [id number] 23:23:00* Test Item Value Reference Range Interpretation Comments ISTAT-SODIUM (test code = NAP) 139 MMOL/L 134-147 N ISTAT-POTASSIUM (test code = KP) 3.5 MMOL/L 3.4-5.0 N ISTAT-CHLORIDE (test code = CLP) 99 MMOL/L 100-108 L Performed by certified skoog patching machine operator at [facility] ISTAT CARBON DIOXIDE (test code = ISTAT-CO2) 27.0 mmol/L 21-33 N ISTAT CALCIUM IONIZED (test code = ISTAT-KAREEM) 1.20 MG/DL 1.12-1.3 2 N ISTAT-GLUCOSE (test code = GLUP) 179 MG/DL 70-110 H ISTAT-BUN (test code = BUNP) 17 MG/DL 7-18 N BEDSIDE CREATININE (test code = CREATBED) 1.2 MG/DL 0.6-1.3 N GLOMERULAR FILTRATION RATE POC (test code = GFRBED) 69 ML/MIN - XR CHEST 1 [id number] 23:19:00 FAX: Ankita Billingsley MD [phone] [place]: St: PRE FAX: Blake Cazares MD [phone] FAX: Song Montes MD [phone] Name: ARANZA LOPEZ [facility] : 1970 Age/S: 48/M [address] [place] [address] Unit #: [id number] Loc: [address] [address] Phys: Song Echavarria MD Acct: [id number] Dis Date: Status: PRE ER PH ONE #: [phone] Exam Date: 08/27/2018 2316 FAX #: [phone] Reason: Chest Pain EXAMS: CPT CODE: [id number] XR CHEST 1 V 47338 Chest, single view dated 08/27/2018. HISTORY: Chest [...] of acute cardiopulmonary disease. SL: 131 at 8680 Reported and signed by: Richard Pickard M.D. CC: Deepak Ruby MD; Blake Cruz M.D.; Song Echavarria MD Technologist: RT Catalino(Saritha) Trnscrd Date/Time/By: 08/27/2018 (2340) : By: OpalDMM Orig Print D/T: S: 08/27/2018 (5311) PAGE 1 Signed Report CBC W/AUTO DIFF 2018-08-27 23:18:00* Test Item Value Reference Range Interpretation Comments WHITE BLOOD CELL (test code = WBC) 6.45 x10 3/uL 4.5-11.0 N RED BLOOD CELL (test code = RBC) 4.22 x10 6/uL 4.00-5.60 N HEMOGLOBIN (test code = HGB) 13.0 g/dL 12.5-16.9 N HEMATOCRIT (test code = HCT) 38.0 % 37.5-50.7 N MEAN CELL VOLUME (test code = MCV) 90.0 fL 81.0-99.0 N MEAN CELL HGB (test code = MCH) 30.8 pg 27.0-33.0 N MEAN CELL HGB CONCETRATION (test code = MCHC) 34.2 g/dL 33.0-37. 0 N RED CELL DISTRIBUTION WIDTH CV (test code = RDW) 13.4 % 11.5- 14.5 N RED CELL DISTRIBUTION WIDTH SD (test code = RDW-SD) 43.8 fL 37 .0-54.0 N PLATELET COUNT (test code = PLT) 223 x10 3/uL 150-400 N MEAN PLATELET VOLUME (test code = MPV) 9.8 fL 7.0-9.0 H NEUTROPHIL % (test code = NT%) 51.8 % 56.0-77.0 L IMMATURE GRANULOCYTE % (test code = IG%) 1.9 % 0.0-2.0 N LYMPHOCYTE % (test code = LY%) 37.1 % 14.0-32.0 H MONOCYTE % (test code = MO%) 6.5 % 4.8-9.0 N EOSINOPHIL % (test code = EO%) 2.2 % 0.3-3.7 N BASOPHIL % (test code = BA%) 0.5 % 0.0-2.0 N NUCLEATED RBC % (test code = NRBC%) 0.0 % 0-0 N NEUTROPHIL # (test code = NT#) 3.35 x10 3/uL 2.0-7.6 N IMMATURE GRANULOCYTE # (test code = IG#) 0.12 x10 3/uL 0.00-0.03 H LYMPHOCYTE # (test code = LY#) 2.39 x10 3/uL 1.0-3.8 N MONOCYTE # (test code = MO#) 0.42 x10 3/uL 0.1-0.8 N EOSINOPHIL # (test code = EO#) 0.14 x10 3/uL 0.0-0.2 N BASOPHIL # (test code = BA#) 0.03 x10 3/uL 0.0-0.2 N NUCLEATED RBC # (test code = NRBC#) 0.00 x10 3/uL 0.0-0.1 N MANUAL DIFF REQUIRED (test code = MDIFF) NO [id number] 22:06:00* Test Item Value Reference Range Interpretation Comments GLUBED (test code = GLUBED) 180 MG/DL 70-110 H Performed by certified skoog patching machine operator at [facility] [id number] 22:06:00* Test Item Value Reference Range Interpretation Comments GLUBED (test code = GLUBED) 144 MG/DL 70-110 H Performed by certified skoog patching machine operator at [facility] [id number] 22:06:00* Test Item Value Reference Range Interpretation Comments GLUBED (test code = GLUBED) 198 MG/DL 70-110 H Performed by certified skoog patching machine operator at [facility] [id number] 22:06:00* Test Item Value Reference Range Interpretation Comments GLUBED (test code = GLUBED) 180 MG/DL 70-110 H Performed by certified skoog patching machine operator at [facility] [id number] 22:05:00* Test Item Value Reference Range Interpretation Comments GLUBED (test code = GLUBED) 147 MG/DL 70-110 H Performed by certified skoog patching machine operator at [facility] [id number] 22:05:00* Test Item Value Reference Range Interpretation Comments GLUBED (test code = GLUBED) 159 MG/DL 70-110 H Performed by certified skoog patching machine operator at [facility] [id number] 22:05:00* Test Item Value Reference Range Interpretation Comments GLUBED (test code = GLUBED) 114 MG/DL 70-110 H Performed by certified skoog patching machine operator at [facility] [id number] 22:05:00* Test Item Value Reference Range Interpretation Comments GLUBED (test code = GLUBED) 166 MG/DL 70-110 H Performed by certified skoog patching machine operator at [facility] [id number] 22:05:00* Test Item Value Reference Range Interpretation Comments GLUBED (test code = GLUBED) 154 MG/DL 70-110 H Performed by certified skoog patching machine operator at [facility] [id number] 22:05:00* Test Item Value Reference Range Interpretation Comments GLUBED (test code = GLUBED) 133 MG/DL 70-110 H Performed by certified skoog patching machine operator at [facility] [id number] 12:28:00* Test Item Value Reference Range Interpretation Comments GLUBED (test code = GLUBED) 147 MG/DL 70-110 H Performed by certified skoog patching machine operator at [facility] [id number] 08:31:00* Test Item Value Reference Range Interpretation Comments GLUBED (test code = GLUBED) 144 MG/DL 70-110 H Performed by certified skoog patching machine operator at [facility] [id number] 21:01:00* Test Item Value Reference Range Interpretation Comments GLUBED (test code = GLUBED) 168 MG/DL 70-110 H Performed by certified skoog patching machine operator at [facility] [id number] 21:01:00* Test Item Value Reference Range Interpretation Comments GLUBED (test code = GLUBED) 154 MG/DL 70-110 H Performed by certified skoog patching machine operator at [facility] [id number] 14:38:00* Test Item Value Reference Range Interpretation Comments GLUBED (test code = GLUBED) 228 MG/DL 70-110 H Performed by certified skoog patching machine operator at [facility] [id number] 14:38:00* Test Item Value Reference Range Interpretation Comments GLUBED (test code = GLUBED) 141 MG/DL 70-110 H Performed by certified skoog patching machine operator at [facility] [id number] 14:37:00* Test Item Value Reference Range Interpretation Comments GLUBED (test code = GLUBED) 132 MG/DL 70-110 H Performed by certified skoog patching machine operator at [facility] [id number] 14:37:00* Test Item Value Reference Range Interpretation Comments GLUBED (test code = GLUBED) 160 MG/DL 70-110 H Performed by certified skoog patching machine operator at [facility] [id number] 08:50:00* Test Item Value Reference Range Interpretation Comments GLUBED (test code = GLUBED) 188 MG/DL 70-110 H Performed by certified skoog patching machine operator at [facility] BASIC METABOLIC [id number] 08:44:00* Test Item Value Reference Range Interpretation Comments SODIUM (test code = NA) 137 mEq/L 134-147 N POTASSIUM (test code = K) 3.6 mEq/L 3.4-5.0 N CHLORIDE (test code = CL) 102 mEq/L 100-108 N CARBON DIOXIDE (test code = CO2) 27 mEq/L 21-33 N ANION GAP (test code = GAP) 12 0-20 N GLUCOSE (test code = GLU) 157 mg/dL 70-110 H BLOOD UREA NITROGEN (test code = BUN) 17 mg/dL 7-18 N GLOMERULAR FILTRATION RATE (test code = GFR) 58.9 95-105 L Units of measure = ml/min/1.73 m2 CREATININE (test code = CREAT) 1.3 mg/dL 0.6-1.3 N CALCIUM (test code = CA) 8.7 mg/dL 8.0-10.5 N CBC W/AUTO [id number] 07:50:00* Test Item Value Reference Range Interpretation Comments WHITE BLOOD CELL (test code = WBC) 5.29 x10 3/uL 4.5-11.0 N RED BLOOD CELL (test code = RBC) 4.38 x10 6/uL 4.00-5.60 N HEMOGLOBIN (test code = HGB) 13.3 g/dL 12.5-16.9 N HEMATOCRIT (test code = HCT) 40.2 % 37.5-50.7 N MEAN CELL VOLUME (test code = MCV) 91.8 fL 81.0-99.0 N MEAN CELL HGB (test code = MCH) 30.4 pg 27.0-33.0 N MEAN CELL HGB CONCETRATION (test code = MCHC) 33.1 g/dL 33.0-37. 0 N RED CELL DISTRIBUTION WIDTH CV (test code = RDW) 13.8 % 11.5- 14.5 N RED CELL DISTRIBUTION WIDTH SD (test code = RDW-SD) 46.5 fL 37 .0-54.0 N PLATELET COUNT (test code = PLT) 207 x10 3/uL 150-400 N MEAN PLATELET VOLUME (test code = MPV) 10.5 fL 7.0-9.0 H NEUTROPHIL % (test code = NT%) 49.5 % 56.0-77.0 L IMMATURE GRANULOCYTE % (test code = IG%) 0.9 % 0.0-2.0 N LYMPHOCYTE % (test code = LY%) 35.9 % 14.0-32.0 H MONOCYTE % (test code = MO%) 10.6 % 4.8-9.0 H EOSINOPHIL % (test code = EO%) 2.3 % 0.3-3.7 N BASOPHIL % (test code = BA%) 0.8 % 0.0-2.0 N NUCLEATED RBC % (test code = NRBC%) 0.0 % 0-0 N NEUTROPHIL # (test code = NT#) 2.62 x10 3/uL 2.0-7.6 N IMMATURE GRANULOCYTE # (test code = IG#) 0.05 x10 3/uL 0.00-0.03 H LYMPHOCYTE # (test code = LY#) 1.90 x10 3/uL 1.0-3.8 N MONOCYTE # (test code = MO#) 0.56 x10 3/uL 0.1-0.8 N EOSINOPHIL # (test code = EO#) 0.12 x10 3/uL 0.0-0.2 N BASOPHIL # (test code = BA#) 0.04 x10 3/uL 0.0-0.2 N NUCLEATED RBC # (test code = NRBC#) 0.00 x10 3/uL 0.0-0.1 N MANUAL DIFF REQUIRED (test code = MDIFF) NO [id number] 18:32:00* Test Item Value Reference Range Interpretation Comments GLUBED (test code = GLUBED) 131 MG/DL 70-110 H Performed by certified skoog patching machine operator at [facility]2019-06-28 09:03:00* Test Item Value Reference Range Interpretation Comments GLUBED (test code = GLUBED) 142 MG/DL 70-110 H Performed by certified skoog patching machine operator at [facility]2019-06-27 20:37:00* Test Item Value Reference Range Interpretation Comments GLUBED (test code = GLUBED) 152 MG/DL 70-110 H Performed by certified skoog patching machine operator at [facility] [id number] 23:07:00* Test Item Value Reference Range Interpretation Comments GLUBED (test code = GLUBED) 137 MG/DL 70-110 H Performed by certified skoog patching machine operator at [facility] [id number] 21:05:00* Test Item Value Reference Range Interpretation Comments GLUBED (test code = GLUBED) 170 MG/DL 70-110 H Performed by certified skoog patching machine operator at [facility] [id number] 18:46:00* Test Item Value Reference Range Interpretation Comments GLUBED (test code = GLUBED) 160 MG/DL 70-110 H Performed by certified skoog patching machine operator at [facility] [id number] 12:53:00* Test Item Value Reference Range Interpretation Comments GLUBED (test code = GLUBED) 146 MG/DL 70-110 H Performed by certified skoog patching machine operator at [facility] [id number] 09:13:00* Test Item Value Reference Range Interpretation Comments GLUBED (test code = GLUBED) 151 MG/DL 70-110 H Performed by certified skoog patching machine operator at [facility] [id number] 21:05:00* Test Item Value Reference Range Interpretation Comments GLUBED (test code = GLUBED) 162 MG/DL 70-110 H Performed by certified skoog patching machine operator at [facility] [id number] 12:41:00* Test Item Value Reference Range Interpretation Comments GLUBED (test code = GLUBED) 153 MG/DL 70-110 H Performed by certified skoog patching machine operator at [facility] [id number] 08:23:00* Test Item Value Reference Range Interpretation Comments GLUBED (test code = GLUBED) 182 MG/DL 70-110 H Performed by certified skoog patching machine operator at [facility] [id number] 21:41:00* Test Item Value Reference Range Interpretation Comments GLUBED (test code = GLUBED) 165 MG/DL 70-110 H Performed by certified skoog patching machine operator at [facility] [id number] 21:10:00* Test Item Value Reference Range Interpretation Comments GLUBED (test code = GLUBED) 138 MG/DL 70-110 H Performed by certified skoog patching machine operator at [facility] [id number] 13:03:00* Test Item Value Reference Range Interpretation Comments GLUBED (test code = GLUBED) 144 MG/DL 70-110 H Performed by certified skoog patching machine operator at [facility] [id number] 08:18:00* Test Item Value Reference Range Interpretation Comments GLUBED (test code = GLUBED) 216 MG/DL 70-110 H Performed by certified skoog patching machine operator at [facility] [id number] 21:29:00* Test Item Value Reference Range Interpretation Comments GLUBED (test code = GLUBED) 186 MG/DL 70-110 H Performed by certified skoog patching machine operator at [facility] [id number] 17:49:00* Test Item Value Reference Range Interpretation Comments GLUBED (test code = GLUBED) 149 MG/DL 70-110 H Performed by certified skoog patching machine operator at [facility] [id number] 17:49:00* Test Item Value Reference Range Interpretation Comments GLUBED (test code = GLUBED) 139 MG/DL 70-110 H Performed by certified skoog patching machine operator at [facility] [id number] 08:43:00* Test Item Value Reference Range Interpretation Comments GLUBED (test code = GLUBED) 164 MG/DL 70-110 H Performed by certified skoog patching machine operator at [facility] [id number] 21:11:00* Test Item Value Reference Range Interpretation Comments GLUBED (test code = GLUBED) 155 MG/DL 70-110 H Performed by certified skoog patching machine operator at [facility] [id number] 16:56:00* Test Item Value Reference Range Interpretation Comments GLUBED (test code = GLUBED) 164 MG/DL 70-110 H Performed by certified skoog patching machine operator at [facility] [id number] 11:54:00* Test Item Value Reference Range Interpretation Comments GLUBED (test code = GLUBED) 190 MG/DL 70-110 H Performed by certified skoog patching machine operator at [facility] [id number] 08:27:00* Test Item Value Reference Range Interpretation Comments GLUBED (test code = GLUBED) 220 MG/DL 70-110 H Performed by certified skoog patching machine operator at [facility] [id number] 20:58:00* Test Item Value Reference Range Interpretation Comments GLUBED (test code = GLUBED) 155 MG/DL 70-110 H Performed by certified skoog patching machine operator at [facility] [id number] 16:47:00* Test Item Value Reference Range Interpretation Comments GLUBED (test code = GLUBED) 171 MG/DL 70-110 H Performed by certified skoog patching machine operator at [facility] [id number] 12:06:00* Test Item Value Reference Range Interpretation Comments GLUBED (test code = GLUBED) 186 MG/DL 70-110 H Performed by certified skoog patching machine operator at [facility] [id number] 08:39:00* Test Item Value Reference Range Interpretation Comments GLUBED (test code = GLUBED) 238 MG/DL 70-110 H Performed by certified skoog patching machine operator at [facility] BASIC METABOLIC [id number] 08:27:00* Test Item Value Reference Range Interpretation Comments SODIUM (test code = NA) 134 mEq/L 134-147 N POTASSIUM (test code = K) 4.1 mEq/L 3.4-5.0 N CHLORIDE (test code = CL) 104 mEq/L 100-108 N CARBON DIOXIDE (test code = CO2) 26 mEq/L 21-33 N ANION GAP (test code = GAP) 8 0-20 N GLUCOSE (test code = GLU) 240 mg/dL 70-110 H BLOOD UREA NITROGEN (test code = BUN) 12 mg/dL 7-18 N GLOMERULAR FILTRATION RATE (test code = GFR) 71.4 95-105 L Units of measure = ml/min/1.73 m2 CREATININE (test code = CREAT) 1.1 mg/dL 0.6-1.3 N CALCIUM (test code = CA) 8.3 mg/dL 8.0-10.5 N [id number] 02:26:00* Test Item Value Reference Range Interpretation Comments GLUBED (test code = GLUBED) 182 MG/DL 70-110 H Performed by certified skoog patching machine operator at [facility] [id number] 21:22:00* Test Item Value Reference Range Interpretation Comments GLUBED (test code = GLUBED) 189 MG/DL 70-110 H Performed by certified skoog patching machine operator at [facility] [id number] 16:44:00* Test Item Value Reference Range Interpretation Comments GLUBED (test code = GLUBED) 168 MG/DL 70-110 H Performed by certified skoog patching machine operator at [facility] [id number] 12:37:00* Test Item Value Reference Range Interpretation Comments GLUBED (test code = GLUBED) 205 MG/DL 70-110 H Performed by certified skoog patching machine operator at [facility] [id number] 08:23:00* Test Item Value Reference Range Interpretation Comments GLUBED (test code = GLUBED) 250 MG/DL 70-110 H Performed by certified skoog patching machine operator at [facility] [id number] 06:02:00* Test Item Value Reference Range Interpretation Comments GLUBED (test code = GLUBED) 205 MG/DL 70-110 H Performed by certified skoog patching machine operator at [facility] [id number] 01:06:00* Test Item Value Reference Range Interpretation Comments GLUBED (test code = GLUBED) 218 MG/DL 70-110 H Performed by certified skoog patching machine operator at [facility] [id number] 21:01:00* Test Item Value Reference Range Interpretation Comments GLUBED (test code = GLUBED) 212 MG/DL 70-110 H Performed by certified skoog patching machine operator at [facility] [id number] 17:23:00* Test Item Value Reference Range Interpretation Comments GLUBED (test code = GLUBED) 228 MG/DL 70-110 H Performed by certified skoog patching machine operator at [facility] CBC W/MANUAL [id number] 17:21:00* Test Item Value Reference Range Interpretation Comments WHITE BLOOD CELL (test code = WBC) 5.88 x10 3/uL 4.5-11.0 N RED BLOOD CELL (test code = RBC) 4.17 x10 6/uL 4.00-5.60 N HEMOGLOBIN (test code = HGB) 12.8 g/dL 12.5-16.9 N HEMATOCRIT (test code = HCT) 37.8 % 37.5-50.7 N MEAN CELL VOLUME (test code = MCV) 90.6 fL 81.0-99.0 N MEAN CELL HGB (test code = MCH) 30.7 pg 27.0-33.0 N MEAN CELL HGB CONCETRATION (test code = MCHC) 33.9 g/dL 33.0-37. 0 N RED CELL DISTRIBUTION WIDTH CV (test code = RDW) 14.3 % 11.5- 14.5 N RED CELL DISTRIBUTION WIDTH SD (test code = RDW-SD) 47.4 fL 37 .0-54.0 N PLATELET COUNT (test code = PLT) 213 x10 3/uL 150-400 N MEAN PLATELET VOLUME (test code = MPV) 10.0 fL 7.0-9.0 H SEGMENTED NEUTROPHILS (test code = SEG) 66.7 % 37-69 N LYMPHOCYTE (test code = LYMPH) 23.2 % 23-55 N MONOCYTE (test code = MON) 7.4 % 0-10 N EOSINOPHIL (test code = EOS) 0.9 % 0.0-4.0 N BASOPHIL (test code = BASO) 0.9 % 0.0-2.0 N METAMYELOCYTE (test code = META) 0.9 % 0.0-0.0 H ANISOCYTOSIS (test code = ANISO) 1+ MICROCYTOSIS (test code = MICR) 1+ PLATELET ESTIMATE (test code = PLTEST) Adequate THOUSAND ADEQUATE PLATELET MORPHOLOGY (test code = PLTMORPH) FEW LARGE PLTS SEEN [id number] 11:39:00* Test Item Value Reference Range Interpretation Comments GLUBED (test code = GLUBED) 293 MG/DL 70-110 H Performed by certified skoog patching machine operator at [facility] [id number] 08:39:00* Test Item Value Reference Range Interpretation Comments GLUBED (test code = GLUBED) 280 MG/DL 70-110 H Performed by certified skoog patching machine operator at [facility] PROTHROMBIN [id number] 07:21:00* Test Item Value Reference Range Interpretation Comments PROTHROMBIN TIME PATIENT (test code = PTP) 12.2 SECONDS 9.3-12.9 N INTERNATIONAL NORMAL RATIO (test code = INR) 1.1 0.8-1.2 N TARGET INR BY INDICATION Indication INR1. Prophylaxis [...] Infarction (to prevent recurrent infarct). THROMBOPLASTIN TIME [id number] 07:21:00* Test Item Value Reference Range Interpretation Comments THROMBOPLASTIN TIME PARTIAL (test code = PTT) 33.4 Seconds 25.0-39. 5 N Therapeutic Range: 50.4 - 88.3 Seconds Effective 06/03/2018 COMPREHENSIVE METABOLIC [id number] 07:16:00* Test Item Value Reference Range Interpretation Comments SODIUM (test code = NA) 136 mEq/L 134-147 N POTASSIUM (test code = K) 3.3 mEq/L 3.4-5.0 L CHLORIDE (test code = CL) 102 mEq/L 100-108 N CARBON DIOXIDE (test code = CO2) 26 mEq/L 21-33 N ANION GAP (test code = GAP) 11 0-20 N GLUCOSE (test code = GLU) 209 mg/dL 70-110 H BLOOD UREA NITROGEN (test code = BUN) 14 mg/dL 7-18 N GLOMERULAR FILTRATION RATE (test code = GFR) 79.8 95-105 L Units of measure = ml/min/1.73 m2 CREATININE (test code = CREAT) 1.0 mg/dL 0.6-1.3 N TOTAL PROTEIN (test code = PROT) 6.2 g/dL 6.4-8.2 L ALBUMIN (test code = ALB) 3.10 g/dL 3.4-5.0 L CALCIUM (test code = CA) 8.4 mg/dL 8.0-10.5 N BILIRUBIN TOTAL (test code = BILT) 0.30 mg/dL 0.0-1.0 N SGOT/AST (test code = AST) 19 IUnit/L 15-37 N SGPT/ALT (test code = ALT) 26 IUnit/L 15-65 N ALKALINE PHOSPHATASE TOTAL (test code = ALKP) 92 IUnit/L 20-125 N LIPID PROFILE (CORONARY RISK)2018-08-06 07:16:00* Test Item Value Reference Range Interpretation Comments TRIGLYCERIDES (test code = TRIG) 322 mg/dL 40-150 H CHOLESTEROL (test code = CHOL) 158 mg/dL <200 CHOLESTEROL/HDL RATIO (test code = CHOLHDL) 6.08 RATIO 3.43-4.97 H RISK ASSOCIATED WITH CHOL/HDL RATIOS: RISK MALE FEMALE1/2 AVERAGE 3.43 3.27AVERAGE 4.97 4.442X AVERAGE 9.55 7.053X AVERAGE 23.39 11.04 NOTE THAT THE REFERENCE VALUE IS RELATEDTO RISK LEVELS RECOMMENDED BY THE NATL.HEART, LUNG, AND BLOOD INST. HDL CHOLESTEROL (test code = HDL) 26.0 mg/dL 32-72 L LIPOPROTEIN LDL (test code = LDL) 89 mg/dL 0-100 N <100 [id number] NEAR OPTIMAL/ABOVE [id number] HIGH>FU=757 VERY HIGH*Guidelines provided by the National Cholesterol EducationProgram Adult Treatment Panel III [id number] 07:04:00* Test Item Value Reference Range Interpretation Comments GLUBED (test code = GLUBED) 299 MG/DL 70-110 H Performed by certified skoog patching machine operator at [facility] CBC W/MANUAL [id number] 06:55:00* Test Item Value Reference Range Interpretation Comments WHITE BLOOD CELL (test code = WBC) 5.88 x10 3/uL 4.5-11.0 N RED BLOOD CELL (test code = RBC) 4.17 x10 6/uL 4.00-5.60 N HEMOGLOBIN (test code = HGB) 12.8 g/dL 12.5-16.9 N HEMATOCRIT (test code = HCT) 37.8 % 37.5-50.7 N MEAN CELL VOLUME (test code = MCV) 90.6 fL 81.0-99.0 N MEAN CELL HGB (test code = MCH) 30.7 pg 27.0-33.0 N MEAN CELL HGB CONCETRATION (test code = MCHC) 33.9 g/dL 33.0-37. 0 N RED CELL DISTRIBUTION WIDTH CV (test code = RDW) 14.3 % 11.5- 14.5 N RED CELL DISTRIBUTION WIDTH SD (test code = RDW-SD) 47.4 fL 37 .0-54.0 N PLATELET COUNT (test code = PLT) 213 x10 3/uL 150-400 N MEAN PLATELET VOLUME (test code = MPV) 10.0 fL 7.0-9.0 H ANISOCYTOSIS (test code = ANISO) PLATELET ESTIMATE (test code = PLTEST) THOUSAND ADEQUATE - CT ANGIO [id number] 21:42:00 Name: ARANZA LOPEZ [facility] : 1970 Age/S: 48 / M [address] [place] [address] Unit #: [id number] Loc: [place] [address] Phys: Camila Richards MD Acct: [id number] Dis Date: Status: ADM IN PHONE #: [phone] Exam Date: 08/05/20182109 FAX #: [phone] Reason: stroke EXAMS: CPT CODE: [id number] CT ANGIO NECK [address]34 CTA HEAD, CTA NECK INDICATION:stroke. TECHNIQUE: Isovue [...] PAGE 1 Signed Report (CONTINUED) Name: ARANZA LOPEZ [facility] Kimberly : 1970 Age/S: 48 / M [address] [place] [address] Blvd Unit #: [id number] Loc: [place] [address] Phys: Camila Richards MD Acct: [id number] Dis Date: Status: ADM IN PHONE #: [phone] Exam Date: 08/05/20182109 FAX #: [phone] Reason: stroke EXAMS: CPT CODE: [id number] CT ANGIO NECK [address] <Continued> The internal carotid arteries reveal no [...] PAGE 2 Signed Report (CONTINUED) Name: ARANZA LOPEZ [facility] Kimberly : 1970 Age/S: 48 / M [address] [place] [address] Unit #: [id number] Loc: [place] [address] Phys: Camila Richards MD Acct: [id number] Dis Date: Status: ADM IN PHONE #: [phone] Exam Date: 08/05/2018 211 FAX #: [phone] Reason: stroke EXAMS: CPT CODE: [id number] CT ANGIO NECK [address] < Continued> CTA HEAD: 1. There is [...] STENOSIS REFERENCE USING NASCET CRITERIA: % ICA stenosis = (1-narrowest ICA diameter/diameter of distal cervical ICA) x 100 -Mild: <50% stenosis -Moderate: 50-69% stenosis -Severe: 70-94% stenosis -Near occlusion: 95-99% stenosis -Occluded: 100% stenosis at 2142 Reported and signed by: Suleman Welch D.O. CC: Deepak uRby MD; Camila Richards MD; Pepito Moore MD; Blake Cruz M.D. Technologist:RT Tyrone(R)(CT) CTDI: DLP: Trnscb Date/Time: 08/05/2018 (2141) [email or web address] Orig Print D/T: S: 08/05/2018 (2144) PAGE 3 Signed Report - CT ANGIO [id number] 21:42:00 Name: ARANZA LOPEZ : 1970 Age/S: 48 / M [address] [place] [address] Unit #: [id number] Loc: [place] [address] Phys: Camila Richards MD Acct: [id number] Dis Date: Status: ADM IN PHONE #: [phone] Exam Date: 08/05/20182109 FAX #: [phone] Reason: stroke EXAMS: CPT CODE: [id number] CT ANGIO HEAD [address]796 CTA HEAD, CTA NECK INDICATION:stroke. TECHNIQUE: Isovue [...] PAGE 1 Signed Report (CONTINUED) Name: ARANZA LOPEZ [facility] : 1970 Age/S: 48 / M [address] [place] [address] Unit #: [id number] Loc: [place] [address] Phys: Camila Richards MD Acct: [id number] Dis Date: Status: ADM IN PHONE #: [phone] Exam Date: 08/05/20182109 FAX #: [phone] Reason: stroke EXAMS: CPT CODE: [id number] CT ANGIO HEAD [address]41 <Continued> The internal carotid arteries reveal no [...] PAGE 2 Signed Report (CONTINUED) Name: ARANZA LOPEZ [facility] : 1970 Age/S: 48 / M [address] [place] [address] Blvd Unit #: [id number] Loc: [place] [address] Phys: Camila Richards MD Acct: [id number] Dis Date: Status: ADM IN PHONE #: [phone] Exam Date: 08/05/20182109 FAX #: [phone] Reason: stroke EXAMS: CPT CODE: [id number] CT ANGIO HEAD [address] < Continued> CTA HEAD: 1. There is [...] STENOSIS REFERENCE USING NASCET CRITERIA: % ICA stenosis = (1-narrowest ICA diameter/diameter of distal cervical ICA) x 100 -Mild: <50% stenosis -Moderate: 50-69% stenosis -Severe: 70-94% stenosis -Near occlusion: 95-99% stenosis -Occluded: 100% stenosis at 2142 Reported and signed by: Suleman Welch D.O. CC: Deepak Ruby MD; Camila Richards MD; Pepito Moore MD; Blake Cruz M.D. Technologist:RT Tyrone(R)(CT) CTDI: DLP: Trnscb Date/Time: 08/05/2018 (2141) [email or web address] Orig Print D/T: S: 08/05/2018 (0) PAGE 3 Signed Report - CT HEAD/BRAIN W/O CONT 2018-08-05 21:26:00 Name: ARANZA LOPEZ [facility] : 1970 Age/S: 48 / M [address] [place] [address] Unit #: [id number] Loc: [place] [address] Phys: Camila Richards MD Acct: [id number] Dis Date: Status: ADM IN PHONE #: [phone] Exam Date: 08/05/20182110 FAX #: [phone] Reason: stroke EXAMS: CPT CODE: [id number] CT HEAD/BRAIN W/O CONT [address] HEAD INDICATION: stroke. TECHNIQUE: Unenhanced [...] syndrome. at 2125 Reported and signed by: Suleman Welch D.O. PAGE 1 Signed Report (CONTINUED) Name: ARANZA LOPEZ [facility] : 1970 Age/S: 48 / M [address] [place] [address] Unit #: [id number] Loc: [place] [address] Phys: Camila Richards MD Acct: [id number] Dis Date: Status: ADM IN PHONE #: [phone] Exam Date: 08/05/20182110 FAX #: [phone] Reason: stroke EXAMS: CPT CODE: [id number] CT HEAD/BRAIN W/O CONT 97852 < Continued> CC: Deepak Ruby MD; Camila Richards MD; Pepito Moore MD; Blake Cruz M.D. Technologist:RT Tyrone(R)(CT) CTDI: DLP: Trnscb Date/Time: 08/05/2018 (2125) [email or web address] Orig Print D/T: S: 08/05/2018 (2128) PAGE 2 Signed Report [id number] 19:47:00* Test Item Value Reference Range Interpretation Comments GLUBED (test code = GLUBED) 223 MG/DL 70-110 H Performed by certified skoog patching machine operator at [facility] [id number] 17:02:00* Test Item Value Reference Range Interpretation Comments GLUBED (test code = GLUBED) 194 MG/DL 70-110 H Performed by certified skoog patching machine operator at [facility] CBC W/AUTO [id number] 14:52:00* Test Item Value Reference Range Interpretation Comments WHITE BLOOD CELL (test code = WBC) 6.13 x10 3/uL 4.5-11.0 N RED BLOOD CELL (test code = RBC) 4.27 x10 6/uL 4.00-5.60 N HEMOGLOBIN (test code = HGB) 13.1 g/dL 12.5-16.9 N HEMATOCRIT (test code = HCT) 38.5 % 37.5-50.7 N MEAN CELL VOLUME (test code = MCV) 90.2 fL 81.0-99.0 N MEAN CELL HGB (test code = MCH) 30.7 pg 27.0-33.0 N MEAN CELL HGB CONCETRATION (test code = MCHC) 34.0 g/dL 33.0-37. 0 N RED CELL DISTRIBUTION WIDTH CV (test code = RDW) 14.4 % 11.5- 14.5 N RED CELL DISTRIBUTION WIDTH SD (test code = RDW-SD) 47.6 fL 37 .0-54.0 N PLATELET COUNT (test code = PLT) 221 x10 3/uL 150-400 N MEAN PLATELET VOLUME (test code = MPV) 10.1 fL 7.0-9.0 H NEUTROPHIL % (test code = NT%) 58.1 % 56.0-77.0 N IMMATURE GRANULOCYTE % (test code = IG%) 1.3 % 0.0-2.0 N LYMPHOCYTE % (test code = LY%) 28.1 % 14.0-32.0 N MONOCYTE % (test code = MO%) 10.3 % 4.8-9.0 H EOSINOPHIL % (test code = EO%) 1.5 % 0.3-3.7 N BASOPHIL % (test code = BA%) 0.7 % 0.0-2.0 N NUCLEATED RBC % (test code = NRBC%) 0.0 % 0-0 N NEUTROPHIL # (test code = NT#) 3.57 x10 3/uL 2.0-7.6 N IMMATURE GRANULOCYTE # (test code = IG#) 0.08 x10 3/uL 0.00-0.03 H LYMPHOCYTE # (test code = LY#) 1.72 x10 3/uL 1.0-3.8 N MONOCYTE # (test code = MO#) 0.63 x10 3/uL 0.1-0.8 N EOSINOPHIL # (test code = EO#) 0.09 x10 3/uL 0.0-0.2 N BASOPHIL # (test code = BA#) 0.04 x10 3/uL 0.0-0.2 N NUCLEATED RBC # (test code = NRBC#) 0.00 x10 3/uL 0.0-0.1 N MANUAL DIFF REQUIRED (test code = MDIFF) NO BASIC METABOLIC [id number] 14:37:00* Test Item Value Reference Range Interpretation Comments SODIUM (test code = NA) 137 mEq/L 134-147 N POTASSIUM (test code = K) 3.6 mEq/L 3.4-5.0 N CHLORIDE (test code = CL) 102 mEq/L 100-108 N CARBON DIOXIDE (test code = CO2) 28 mEq/L 21-33 N ANION GAP (test code = GAP) 11 0-20 N GLUCOSE (test code = GLU) 204 mg/dL 70-110 H BLOOD UREA NITROGEN (test code = BUN) 16 mg/dL 7-18 N GLOMERULAR FILTRATION RATE (test code = GFR) 64.6 95-105 L Units of measure = ml/min/1.73 m2 CREATININE (test code = CREAT) 1.2 mg/dL 0.6-1.3 N CALCIUM (test code = CA) 8.4 mg/dL 8.0-10.5 N [id number] 12:05:00* Test Item Value Reference Range Interpretation Comments GLUBED (test code = GLUBED) 221 MG/DL 70-110 H Performed by certified skoog patching machine operator at [facility] [id number] 07:02:00* Test Item Value Reference Range Interpretation Comments TROPONIN-I (test code = TROPI) < 0.015 ng/mL 0.000-0.045 N Negative: <= 0.045 Positive: >= 0.046 Correlation with serial results, other cardiac markers andclinical findings is necessary to determine the clinicalsignificance of this result. Results using different methodologies should not be comparedto one another as quantitative results may vary by method. COMMENTS: 3 troponins total (including troponin done in ED)[id number] 06:03:00* Test Item Value Reference Range Interpretation Comments GLUBED (test code = GLUBED) 189 MG/DL 70-110 H Performed by certified skoog patching machine operator at [facility] [id number] 03:19:00* Test Item Value Reference Range Interpretation Comments TROPONIN-I (test code = TROPI) < 0.015 ng/mL 0.000-0.045 N Negative: <= 0.045 Positive: >= 0.046 Correlation with serial results, other cardiac markers andclinical findings is necessary to determine the clinicalsignificance of this result. Results using different methodologies should not be comparedto one another as quantitative results may vary by method. COMMENTS: 3 troponins total (including troponin done in ED)- XR CHEST 1 V 2018-08-04 23:51:00 FAX: Ankita Billingsley MD [phone] [place]: St: REG FAX: Blake Cazares MD [phone] Name: ARANZA LOPEZ [facility] : 1970 Age/S: 48/M [address] [place] [address] Unit #: [id number] Loc: [place] [address] Phys: Dexter Montoya MD Acct: [id number] Dis Date: Status: REG ER PHONE #: [phone] Exam Date: 08/04/2018 2346 FAX #: [phone] Reason: stroke EXAMS: CPT CODE: [id number] XR CHEST 1 V 74450 EXAM: CR, XR chest one view: 08/04/2018, [...] Ruby MD; Blake Cruz M.D. Technologist: RT Landon(R) Trnscrd Date/Time/By: 08/04/2018 (7116) : By: [email or web address] Orig Print D/T: S: 08/04/2018 (1291) PAGE 1 Signed Report TROPONIN-I [id number] 23:34:00* Test Item Value Reference Range Interpretation Comments TROPONIN-I RAPID (test code = TROPIRAP) 0.00 ng/mL 0.00-0.08 N Performed by certified skoog patching machine operator at [facility] Negative: <= 0.08 Positive: >= 0.09An elevated troponin value alone is not sufficient todiagnose a myocardial infarction. Rather, the patient sclinical presentation (history, physical exam) and ECGshould be used in conjunction with troponin in thediagnostic evaluation of suspected myocardial infarction. Aserial sampling protocol is recommended to facilitate the identification of temporal changes in troponin levels characteristic of IA. CHEMISTRY 8 [id number] 23:30:00* Test Item Value Reference Range Interpretation Comments ISTAT-SODIUM (test code = NAP) MMOL/L 134-147 ISTAT-POTASSIUM (test code = KP) MMOL/L 3.4-5.0 ISTAT-CHLORIDE (test code = CLP) MMOL/L 100-108 ISTAT CARBON DIOXIDE (test code = ISTAT-CO2) mmol/L 21-33 N ISTAT CALCIUM IONIZED (test code = ISTAT-KAREEM) MG/DL 1.12-1.3 2 ISTAT-GLUCOSE (test code = GLUP) MG/DL 70-110 H ISTAT-BUN (test code = BUNP) MG/DL 7-18 N BEDSIDE CREATININE (test code = CREATBED) MG/DL 0.6-1.3 N GLOMERULAR FILTRATION RATE POC (test code = GFRBED) 69 ML/MIN CHEMISTRY 8 [id number] 23:30:00* Test Item Value Reference Range Interpretation Comments ISTAT-SODIUM (test code = NAP) 138 MMOL/L 134-147 N ISTAT-POTASSIUM (test code = KP) 3.2 MMOL/L 3.4-5.0 L ISTAT-CHLORIDE (test code = CLP) 97 MMOL/L 100-108 L Performed by certified skoog patching machine operator at [facility] ISTAT CARBON DIOXIDE (test code = ISTAT-CO2) 26.0 mmol/L 21-33 N ISTAT CALCIUM IONIZED (test code = ISTAT-KAREEM) 1.12 MG/DL 1.12-1.3 2 N ISTAT-GLUCOSE (test code = GLUP) 175 MG/DL 70-110 H ISTAT-BUN (test code = BUNP) 16 MG/DL 7-18 N BEDSIDE CREATININE (test code = CREATBED) 1.2 MG/DL 0.6-1.3 N GLOMERULAR FILTRATION RATE POC (test code = GFRBED) 69 ML/MIN PROTHROMBIN [id number] 23:28:00* Test Item Value Reference Range Interpretation Comments PROTHROMBIN TIME PATIENT (test code = PTP) 12.8 SECONDS 9.3-12.9 N INTERNATIONAL NORMAL RATIO (test code = INR) 1.1 0.8-1.2 N TARGET INR BY INDICATION Indication INR1. Prophylaxis [...] Infarction (to prevent recurrent infarct). THROMBOPLASTIN TIME [id number] 23:28:00* Test Item Value Reference Range Interpretation Comments THROMBOPLASTIN TIME PARTIAL (test code = PTT) 39.6 Seconds 25.0-39. 5 H Therapeutic Range: 50.4 - 88.3 Seconds Effective 06/03/2018 PROTHROMBIN [id number] 23:26:00* Test Item Value Reference Range Interpretation Comments PROTHROMBIN TIME PATIENT (test code = PTP) 12.8 SECONDS 9.3-12.9 N INTERNATIONAL NORMAL RATIO (test code = INR) 1.1 0.8-1.2 N TARGET INR BY INDICATION Indication INR1. Prophylaxis [...] Infarction (to prevent recurrent infarct). THROMBOPLASTIN TIME [id number] 23:26:00* Test Item Value Reference Range Interpretation Comments THROMBOPLASTIN TIME PARTIAL (test code = PTT) Seconds 25.0-39. 5 CBC W/O [id number] 23:21:00* Test Item Value Reference Range Interpretation Comments WHITE BLOOD CELL (test code = WBC) 7.52 x10 3/uL 4.5-11.0 N RED BLOOD CELL (test code = RBC) 4.22 x10 6/uL 4.00-5.60 N HEMOGLOBIN (test code = HGB) 12.9 g/dL 12.5-16.9 N HEMATOCRIT (test code = HCT) 37.7 % 37.5-50.7 N MEAN CELL VOLUME (test code = MCV) 89.3 fL 81.0-99.0 N MEAN CELL HGB (test code = MCH) 30.6 pg 27.0-33.0 N MEAN CELL HGB CONCETRATION (test code = MCHC) 34.2 g/dL 33.0-37. 0 N RED CELL DISTRIBUTION WIDTH CV (test code = RDW) 14.3 % 11.5- 14.5 N RED CELL DISTRIBUTION WIDTH SD (test code = RDW-SD) 46.7 fL 37 .0-54.0 N PLATELET COUNT (test code = PLT) 225 x10 3/uL 150-400 N MEAN PLATELET VOLUME (test code = MPV) 9.3 fL 7.0-9.0 H - CT HEAD/BRAIN W/O [id number] 23:18:00 Name: ARANZA LOPEZ [facility] : 1970 Age/S: 48 / M [address] [place] [address] Bl Unit #: [id number] Loc: [place] [address] Phys: Dexter Montoya MD Acct: [id number] Dis Date: Status: REG ER PHONE #: [phone] Exam Date: 08/04/20181 FAX #: [phone] Reason: LEFT HEMIPARESIS EXAMS: CPT CODE: [id number] CT HEAD/BRAIN W/O CONT 89254 CT HEAD WITHOUT CONTRAST INDICATION: Left hemiparesis. [...] M.D. PAGE 1 Signed Report (CONTINUED) Name: DEVONTEMANDO [facility] : 1970 Age /S: 48 / M [address] [place] [address] Unit #: [id number] Loc: [place] [address] Phys: Dexter Montoya MD Acct: [id number] Dis Date: Status: REG ER PHONE #: [phone] Exam Date: 08/04/20182253 FAX #: [phone] Reason: LEFT HEMIPARESIS EXAMS: CPT CODE: [id number] CT HEAD/BRAIN W/O CONT 80267 <Continued> CC: Deepak Ruby MD; Blake Cruz M.D. Technologist:Stan Briseno, RT(R) CTDI: DLP: Trnscb Date/Time: 08/04/2018 (2831) [email or web address] Orig Print D/T: S: 08/04/2018 (5666) PAGE 2 Signed Report [id number] 07:10:00* Test Item Value Reference Range Interpretation Comments GLUBED (test code = GLUBED) 176 MG/DL 70-110 H Performed by certified skoog patching machine operator at [facility] [id number] 08:33:00* Test Item Value Reference Range Interpretation Comments GLUBED (test code = GLUBED) 197 MG/DL 70-110 H Performed by certified skoog patching machine operator at [facility] [id number] 21:03:00* Test Item Value Reference Range Interpretation Comments GLUBED (test code = GLUBED) 182 MG/DL 70-110 H Performed by certified skoog patching machine operator at [facility] [id number] 21:03:00* Test Item Value Reference Range Interpretation Comments GLUBED (test code = GLUBED) 200 MG/DL 70-110 H Performed by certified skoog patching machine operator at [facility] [id number] 21:03:00* Test Item Value Reference Range Interpretation Comments GLUBED (test code = GLUBED) 249 MG/DL 70-110 H Performed by certified skoog patching machine operator at [facility] [id number] 21:03:00* Test Item Value Reference Range Interpretation Comments GLUBED (test code = GLUBED) 217 MG/DL 70-110 H Performed by certified skoog patching machine operator at [facility] [id number] 18:13:00* Test Item Value Reference Range Interpretation Comments GLUBED (test code = GLUBED) 234 MG/DL 70-110 H Performed by certified skoog patching machine operator at [facility] PROCALCITONIN (PCT)2018-07-29 09:18:00* Test Item Value Reference Range Interpretation Comments PROCALCITONIN (PCT) (test code = PROCAL) 0.06 ng/mL 0.00-0.05 H PROCALCITONIN (PCT) NORMAL RANGE (ADULT): <0.05 NG/ML. [...] any concentrations <2 ng/mL are obtained. T4 [id number] 22:42:00* Test Item Value Reference Range Interpretation Comments T4 FREE (test code = T4F) 1.0 ng/dL 0.77-1.61 N THYROID STIMULATING [id number] 22:42:00* Test Item Value Reference Range Interpretation Comments THYROID STIMULATING HORMONE (test code = TSH) 3.48 0.42-5.4 7 N Results in flor- International Units/mL HGBA1C%2018-07-28 22:40:00* Test Item Value Reference Range Interpretation Comments HGBA1C% (test code = HGBA1C%) 8.5 %A1C 4.8-6.0 H BASIC METABOLIC [id number] 22:34:00* Test Item Value Reference Range Interpretation Comments SODIUM (test code = NA) 135 mEq/L 134-147 N POTASSIUM (test code = K) 3.3 mEq/L 3.4-5.0 L CHLORIDE (test code = CL) 99 mEq/L 100-108 L CARBON DIOXIDE (test code = CO2) 27 mEq/L 21-33 N ANION GAP (test code = GAP) 12 0-20 N GLUCOSE (test code = GLU) 182 mg/dL 70-110 H BLOOD UREA NITROGEN (test code = BUN) 21 mg/dL 7-18 H GLOMERULAR FILTRATION RATE (test code = GFR) 54.1 95-105 L Units of measure = ml/min/1.73 m2 CREATININE (test code = CREAT) 1.4 mg/dL 0.6-1.3 H CALCIUM (test code = CA) 8.8 mg/dL 8.0-10.5 N [id number] 20:59:00* Test Item Value Reference Range Interpretation Comments GLUBED (test code = GLUBED) 155 MG/DL 70-110 H Performed by certified skoog patching machine operator at [facility] [id number] 17:18:00* Test Item Value Reference Range Interpretation Comments GLUBED (test code = GLUBED) 170 MG/DL 70-110 H Performed by certified skoog patching machine operator at [facility] [id number] 11:50:00* Test Item Value Reference Range Interpretation Comments GLUBED (test code = GLUBED) 280 MG/DL 70-110 H Performed by certified skoog patching machine operator at [facility] PROCALCITONIN (PCT)2018-07-28 09:45:00* Test Item Value Reference Range Interpretation Comments PROCALCITONIN (PCT) (test code = PROCAL) < 0.05 ng/mL 0.00-0.05 N PROCALCITONIN (PCT) NORMAL RANGE (ADULT): <0.05 NG/ML. [...] if any concentrations <2 ng/mL are obtained. [id number] 08:14:00* Test Item Value Reference Range Interpretation Comments GLUBED (test code = GLUBED) 300 MG/DL 70-110 H Performed by certified skoog patching machine operator at [facility] [id number] 06:16:00* Test Item Value Reference Range Interpretation Comments GLUBED (test code = GLUBED) 367 MG/DL 70-110 H Performed by certified skoog patching machine operator at [facility] LACTIC ACID 2ND [id number] 05:35:00* Test Item Value Reference Range Interpretation Comments LACTIC ACID 2ND REPEAT (test code = LACT2) 3.0 mmol/L 0.4-1.9 H WHEN 0500 LABS ARE DUE 07/28/18 @0054 G. LAB [id number] 22:32:00* Test Item Value Reference Range Interpretation Comments GLUBED (test code = GLUBED) 399 MG/DL 70-110 H Performed by certified skoog patching machine operator at [facility] LACTIC ACID [id number] 22:30:00* Test Item Value Reference Range Interpretation Comments LACTIC ACID REPEAT (test code = LACTR) 3.6 mmol/l 0.4-1.9 H LACTIC [id number] 18:49:00* Test Item Value Reference Range Interpretation Comments LACTIC ACID (test code = LACT) 3.7 mmol/L 0.4-1.9 H RECOLLECTION WITH ICEBY G.LAB.YR8MJYX2U%2018-07-27 18:23:00* Test Item Value Reference Range Interpretation Comments HGBA1C% (test code = HGBA1C%) 8.6 %A1C 4.8-6.0 H [id number] 18:21:00* Test Item Value Reference Range Interpretation Comments GLUBED (test code = GLUBED) 406 MG/DL 70-110 H Performed by certified skoog patching machine operator at [facility] PROCALCITONIN (PCT)2018-07-27 17:26:00* Test Item Value Reference Range Interpretation Comments PROCALCITONIN (PCT) (test code = PROCAL) < 0.05 ng/mL 0.00-0.05 N PROCALCITONIN (PCT) NORMAL RANGE (ADULT): <0.05 NG/ML. [...] concentrations <2 ng/mL are obtained. COMPREHENSIVE METABOLIC [id number] 16:43:00* Test Item Value Reference Range Interpretation Comments SODIUM (test code = NA) 130 mEq/L 134-147 L POTASSIUM (test code = K) 4.1 mEq/L 3.4-5.0 N CHLORIDE (test code = CL) 96 mEq/L 100-108 L CARBON DIOXIDE (test code = CO2) 24 mEq/L 21-33 N ANION GAP (test code = GAP) 14 0-20 N GLUCOSE (test code = GLU) 404 mg/dL 70-110 H BLOOD UREA NITROGEN (test code = BUN) 17 mg/dL 7-18 N GLOMERULAR FILTRATION RATE (test code = GFR) 54.1 95-105 L Units of measure = ml/min/1.73 m2 CREATININE (test code = CREAT) 1.4 mg/dL 0.6-1.3 H TOTAL PROTEIN (test code = PROT) 7.0 g/dL 6.4-8.2 N ALBUMIN (test code = ALB) 3.30 g/dL 3.4-5.0 L CALCIUM (test code = CA) 8.3 mg/dL 8.0-10.5 N BILIRUBIN TOTAL (test code = BILT) 0.30 mg/dL 0.0-1.0 SGOT/AST (test code = AST) 16 IUnit/L 15-37 N SGPT/ALT (test code = ALT) 30 IUnit/L 15-65 N ALKALINE PHOSPHATASE TOTAL (test code = ALKP) 109 IUnit/L 20-125 N CBC W/AUTO [id number] 16:19:00* Test Item Value Reference Range Interpretation Comments WHITE BLOOD CELL (test code = WBC) 9.85 x10 3/uL 4.5-11.0 N RED BLOOD CELL (test code = RBC) 4.30 x10 6/uL 4.00-5.60 N HEMOGLOBIN (test code = HGB) 13.2 g/dL 12.5-16.9 N HEMATOCRIT (test code = HCT) 37.8 % 37.5-50.7 N MEAN CELL VOLUME (test code = MCV) 87.9 fL 81.0-99.0 N MEAN CELL HGB (test code = MCH) 30.7 pg 27.0-33.0 N MEAN CELL HGB CONCETRATION (test code = MCHC) 34.9 g/dL 33.0-37. 0 N RED CELL DISTRIBUTION WIDTH CV (test code = RDW) 14.7 % 11.5- 14.5 H RED CELL DISTRIBUTION WIDTH SD (test code = RDW-SD) 47.2 fL 37 .0-54.0 N PLATELET COUNT (test code = PLT) 229 x10 3/uL 150-400 N MEAN PLATELET VOLUME (test code = MPV) 10.2 fL 7.0-9.0 H NEUTROPHIL % (test code = NT%) 82.9 % 56.0-77.0 H IMMATURE GRANULOCYTE % (test code = IG%) 1.3 % 0.0-2.0 N LYMPHOCYTE % (test code = LY%) 9.1 % 14.0-32.0 L MONOCYTE % (test code = MO%) 6.5 % 4.8-9.0 N EOSINOPHIL % (test code = EO%) 0.0 % 0.3-3.7 L BASOPHIL % (test code = BA%) 0.2 % 0.0-2.0 N NUCLEATED RBC % (test code = NRBC%) 0.0 % 0-0 N NEUTROPHIL # (test code = NT#) 8.16 x10 3/uL 2.0-7.6 H IMMATURE GRANULOCYTE # (test code = IG#) 0.13 x10 3/uL 0.00-0.03 H LYMPHOCYTE # (test code = LY#) 0.90 x10 3/uL 1.0-3.8 L MONOCYTE # (test code = MO#) 0.64 x10 3/uL 0.1-0.8 N EOSINOPHIL # (test code = EO#) 0.00 x10 3/uL 0.0-0.2 N BASOPHIL # (test code = BA#) 0.02 x10 3/uL 0.0-0.2 N NUCLEATED RBC # (test code = NRBC#) 0.00 x10 3/uL 0.0-0.1 N MANUAL DIFF REQUIRED (test code = MDIFF) NO [id number] 15:07:00* Test Item Value Reference Range Interpretation Comments GLUBED (test code = GLUBED) 481 MG/DL 70-110 H Performed by certified skoog patching machine operator at [facility] [id number] 15:07:00* Test Item Value Reference Range Interpretation Comments GLUBED (test code = GLUBED) 474 MG/DL 70-110 H Performed by certified skoog patching machine operator at [facility] [id number] 15:06:00* Test Item Value Reference Range Interpretation Comments GLUBED (test code = GLUBED) 547 MG/DL 70-110 H Performed by certified skoog patching machine operator at [facility] URINALYSIS [id number] 15:03:00* Test Item Value Reference Range Interpretation Comments UA COLOR (test code = COLU) YELLOW YEL/STRAW UA APPEARANCE (test code = APPU) CLEAR CLEAR UA GLUCOSE DIPSTICK (test code = DGLUU) 4+ NEGATIVE A UA BILIRUBIN DIPSTICK (test code = BILU) NEGATIVE NEGATIVE UA KETONE DIPSTICK (test code = KETU) NEGATIVE NEGATIVE UA SPECIFIC GRAVITY (test code = SGU) 1.010 1.005-1.030 N UA BLOOD DIPSTICK (test code = JOAQUIN) NEGATIVE NEGATIVE UA PH DIPSTICK (test code = ROXIE) 7.0 5.0-7.0 N UA PROTEIN DIPSTICK (test code = PROU) NEGATIVE NEGATIVE UA UROBILINIOGEN DIPSTICK (test code = URO) 0.2 mg/dL 0.2-1.0 UA NITRITE DIPSTICK (test code = TWIN) NEGATIVE NEGATIVE UA LEUKOCYTE ESTERASE DIPSTICK (test code = LEUU) NEGATIVE NEGA TIVE UA WBC (test code = WBCU) 0-3 WBC/HPF 0-3 UA RBC (test code = RBCU) 0-3 RBC/HPF 0-3 UA BACTERIA (test code = BACU) NONE SEEN /HPF NONE SEEN UA SQUAMOUS CELLS (test code = SQU) 0-5 /HPF NONE SEEN UA CULT [id number] 15:03:00* Test Item Value Reference Range Interpretation Comments UA CULTURE NEEDED? (test code = UACULT) NO, WBC<10 Criteria Culture Chk Criteria not met, Urine Culture cancelled. URINALYSIS [id number] 14:53:00* Test Item Value Reference Range Interpretation Comments UA COLOR (test code = COLU) YELLOW YEL/STRAW UA APPEARANCE (test code = APPU) CLEAR CLEAR UA GLUCOSE DIPSTICK (test code = DGLUU) 4+ NEGATIVE A UA BILIRUBIN DIPSTICK (test code = BILU) NEGATIVE NEGATIVE UA KETONE DIPSTICK (test code = KETU) NEGATIVE NEGATIVE UA SPECIFIC GRAVITY (test code = SGU) 1.010 1.005-1.030 N UA BLOOD DIPSTICK (test code = JOAQUIN) NEGATIVE NEGATIVE UA PH DIPSTICK (test code = ROXIE) 7.0 5.0-7.0 N UA PROTEIN DIPSTICK (test code = PROU) NEGATIVE NEGATIVE UA UROBILINIOGEN DIPSTICK (test code = URO) 0.2 mg/dL 0.2-1.0 UA NITRITE DIPSTICK (test code = TWIN) NEGATIVE NEGATIVE UA LEUKOCYTE ESTERASE DIPSTICK (test code = LEUU) NEGATIVE NEGA TIVE UA WBC (test code = WBCU) WBC/HPF 0-3 UA RBC (test code = RBCU) RBC/HPF 0-3 UA CULT [id number] 14:53:00* Test Item Value Reference Range Interpretation Comments UA CULTURE NEEDED? (test code = UACULT) Criteria Culture Chk [id number] 14:10:00* Test Item Value Reference Range Interpretation Comments GLUBED (test code = GLUBED) 441 MG/DL 70-110 H Performed by certified skoog patching machine operator at [facility] [id number] 12:41:00* Test Item Value Reference Range Interpretation Comments GLUBED (test code = GLUBED) 392 MG/DL 70-110 H Performed by certified skoog patching machine operator at [facility] [id number] 10:46:00* Test Item Value Reference Range Interpretation Comments GLUBED (test code = GLUBED) 419 MG/DL 70-110 H Performed by certified skoog patching machine operator at [facility] [id number] 03:34:00* Test Item Value Reference Range Interpretation Comments TROPONIN-I (test code = TROPI) < 0.015 ng/mL 0.000-0.045 N Negative: <= 0.045 Positive: >= 0.046 Correlation with serial results, other cardiac markers andclinical findings is necessary to determine the clinicalsignificance of this result. Results using different methodologies should not be comparedto one another as quantitative results may vary by method. COMMENTS: 3 troponins total (including troponin done in ED)DRUGS OF ABUSE SCREEN [id number] 01:12:00* Test Item Value Reference Range Interpretation Comments URN COCAINE (test code = COCAURN) NEGATIVE NEGATIVE URN CANNABINOIDS (test code = CANNABURN) NEGATIVE NEGATIVE URN AMPHETAMINE (test code = AMPHETURN) NEGATIVE NEGATIVE URN BARBITURATE (test code = BARBITURN) NEGATIVE NEGATIVE URN BENZODIAZEPINE (test code = BENZOURN) NEGATIVE NEGATIVE Cut-off value:200 ng/mL URN OPIATES (test code = OPIATURN) POSITIVE NEGATIVE A Cut-off value:2000 ng/mL URN PHENCYCLIDINE (PCP) (test code = PHENCURN) NEGATIVE NEGATIV E Cutoffs:Barbiturates 200 ng/mLBenzodiazepines 200 ng/mLTHC Cannabinoids 50 ng/mLOpiates(Morphine) 2000 ng/mLAmphetamine 1000 ng/mLCocaine 300 ng/mLPCP phencyclidine 25 ng/mL Unconfirmed screening results shouldnot be used for non-medical purposes. DRUGS OF ABUSE SCREEN [id number] 01:02:00* Test Item Value Reference Range Interpretation Comments URN COCAINE (test code = COCAURN) NEGATIVE NEGATIVE URN CANNABINOIDS (test code = CANNABURN) NEGATIVE NEGATIVE URN AMPHETAMINE (test code = AMPHETURN) NEGATIVE NEGATIVE URN BARBITURATE (test code = BARBITURN) NEGATIVE NEGATIVE URN BENZODIAZEPINE (test code = BENZOURN) NEGATIVE NEGATIVE Cut-off value:200 ng/mL URN OPIATES (test code = OPIATURN) NEGATIVE URN PHENCYCLIDINE (PCP) (test code = PHENCURN) NEGATIVE NEGATIV E Cutoffs:Barbiturates 200 ng/mLBenzodiazepines 200 ng/mLTHC Cannabinoids 50 ng/mLOpiates(Morphine) 2000 ng/mLAmphetamine 1000 ng/mLCocaine 300 ng/mLPCP phencyclidine 25 ng/mL Unconfirmed screening results shouldnot be used for non-medical purposes. [id number] 00:40:00* Test Item Value Reference Range Interpretation Comments TROPONIN-I (test code = TROPI) < 0.015 ng/mL 0.000-0.045 N Negative: <= 0.045 Positive: >= 0.046 Correlation with serial results, other cardiac markers andclinical findings is necessary to determine the clinicalsignificance of this result. Results using different methodologies should not be comparedto one another as quantitative results may vary by method. COMMENTS: 3 troponins total (including troponin done in ED)B-TYPE NATRIURETIC [id number] 21:56:00* Test Item Value Reference Range Interpretation Comments B-TYPE NATRIURETIC PEPTIDE (test code = BNP) 16.8 PG/ML 0-100 N BASIC METABOLIC [id number] 21:50:00* Test Item Value Reference Range Interpretation Comments SODIUM (test code = NA) 134 mEq/L 134-147 N POTASSIUM (test code = K) 3.8 mEq/L 3.4-5.0 N CHLORIDE (test code = CL) 100 mEq/L 100-108 N CARBON DIOXIDE (test code = CO2) 27 mEq/L 21-33 N ANION GAP (test code = GAP) 11 0-20 N GLUCOSE (test code = GLU) 312 mg/dL 70-110 H BLOOD UREA NITROGEN (test code = BUN) 14 mg/dL 7-18 N GLOMERULAR FILTRATION RATE (test code = GFR) 71.4 95-105 L Units of measure = ml/min/1.73 m2 CREATININE (test code = CREAT) 1.1 mg/dL 0.6-1.3 N CALCIUM (test code = CA) 8.2 mg/dL 8.0-10.5 N HEPATIC FUNCTION [id number] 21:50:00* Test Item Value Reference Range Interpretation Comments TOTAL PROTEIN (test code = PROT) 6.7 g/dL 6.4-8.2 N ALBUMIN (test code = ALB) 3.30 g/dL 3.4-5.0 L BILIRUBIN TOTAL (test code = BILT) 0.50 mg/dL 0.0-1.0 N BILIRUBIN DIRECT (test code = BILD) < 0.10 MG/DL 0.0-0.30 N BILIRUBIN INDIRECT (test code = BILIND) 0.40 MG/DL SGOT/AST (test code = AST) 22 IUnit/L 15-37 N SGPT/ALT (test code = ALT) 33 IUnit/L 15-65 N ALKALINE PHOSPHATASE TOTAL (test code = ALKP) 127 IUnit/L 20-125 H [id number] 21:50:00* Test Item Value Reference Range Interpretation Comments LIPASE (test code = LIP) 96 IUnit/L 73-393 N [id number] 21:50:00* Test Item Value Reference Range Interpretation Comments MAGNESIUM (test code = MAG) 2.00 mg/dL 1.8-2.4 N THYROID STIMULATING [id number] 21:50:00* Test Item Value Reference Range Interpretation Comments THYROID STIMULATING HORMONE (test code = TSH) 3.04 0.42-5.4 7 N Results in flor- International Units/mL [id number] 21:50:00* Test Item Value Reference Range Interpretation Comments TROPONIN-I (test code = TROPI) < 0.015 ng/mL 0.000-0.045 N Negative: <= 0.045 Positive: >= 0.046 Correlation with serial results, other cardiac markers andclinical findings is necessary to determine the clinicalsignificance of this result. Results using different methodologies should not be comparedto one another as quantitative results may vary by method. - XR CHEST 1 [id number] 21:48:00 FAX: Ankita Billingsley MD [phone] [place]: St: ADM FAX: Anders Huertas MD [phone] FAX: Blake Cazares MD [phone] Name: ARANZA LOPEZ [facility] : 1970 Age/S: 48/M [address] [place] [address] Unit #: [id number] Loc: [place] [address] Phys: Anders Horowitz MD Acct: [id number] Dis Date: Status: ADM IN ONE #: [phone] Exam Date: 07/26/20182144 FAX #: [phone] Reason: Chest Pain EXAMS: CPT CODE: [id number] XR CHEST 1 V [id number] CHEST, SINGLE VIEW HISTORY: Chest pain Comparison made to chest x-ray. FINDINGS: The lungs are clear. The heart is enlarged. Pulmonary vascularity is prominent. No acute lung inf iltrate or pleural fluid. IMPRESSION: Congesti ve heart failure. SL:01 Electron ically Signed by Jose Luis Sanchez on 9 at 8 Reported and signed by: Hollis tavarez M.D. CC: Deepak Ruby MD; Anders Horowitz MD; Blake Cruz M.D. Technologist: VIDAL Ramirez RT(R); Elisa Zeng RT(R) Trnscrd Date/Time/By: 07/26/2018 (2147) : By: Deb Orig Print D/T: S: 07/26/2018 (2150) PAGE 1 Signed Report BASIC METABOLIC [id number] 21:44:00* Test Item Value Reference Range Interpretation Comments SODIUM (test code = NA) 134 mEq/L 134-147 N POTASSIUM (test code = K) 3.8 mEq/L 3.4-5.0 N CHLORIDE (test code = CL) 100 mEq/L 100-108 N CARBON DIOXIDE (test code = CO2) 27 mEq/L 21-33 N ANION GAP (test code = GAP) 11 0-20 N GLUCOSE (test code = GLU) 312 mg/dL 70-110 H BLOOD UREA NITROGEN (test code = BUN) 14 mg/dL 7-18 N GLOMERULAR FILTRATION RATE (test code = GFR) 71.4 95-105 L Units of measure = ml/min/1.73 m2 CREATININE (test code = CREAT) 1.1 mg/dL 0.6-1.3 N CALCIUM (test code = CA) 8.2 mg/dL 8.0-10.5 N HEPATIC FUNCTION [id number] 21:44:00* Test Item Value Reference Range Interpretation Comments TOTAL PROTEIN (test code = PROT) 6.7 g/dL 6.4-8.2 N ALBUMIN (test code = ALB) 3.30 g/dL 3.4-5.0 L BILIRUBIN TOTAL (test code = BILT) 0.50 mg/dL 0.0-1.0 N BILIRUBIN DIRECT (test code = BILD) < 0.10 MG/DL 0.0-0.30 N BILIRUBIN INDIRECT (test code = BILIND) 0.40 MG/DL SGOT/AST (test code = AST) 22 IUnit/L 15-37 N SGPT/ALT (test code = ALT) 33 IUnit/L 15-65 N ALKALINE PHOSPHATASE TOTAL (test code = ALKP) 127 IUnit/L 20-125 H [id number] 21:44:00* Test Item Value Reference Range Interpretation Comments LIPASE (test code = LIP) 96 IUnit/L 73-393 N [id number] 21:44:00* Test Item Value Reference Range Interpretation Comments MAGNESIUM (test code = MAG) 2.00 mg/dL 1.8-2.4 N THYROID STIMULATING [id number] 21:44:00* Test Item Value Reference Range Interpretation Comments THYROID STIMULATING HORMONE (test code = TSH) 0.42-5.4 7 [id number] 21:44:00* Test Item Value Reference Range Interpretation Comments TROPONIN-I (test code = TROPI) < 0.015 ng/mL 0.000-0.045 N Negative: <= 0.045 Positive: >= 0.046 Correlation with serial results, other cardiac markers andclinical findings is necessary to determine the clinicalsignificance of this result. Results using different methodologies should not be comparedto one another as quantitative results may vary by method. PROTHROMBIN [id number] 21:39:00* Test Item Value Reference Range Interpretation Comments PROTHROMBIN TIME PATIENT (test code = PTP) 13.6 SECONDS 9.3-12.9 H INTERNATIONAL NORMAL RATIO (test code = INR) 1.2 0.8-1.2 N TARGET INR BY INDICATION Indication INR1. Prophylaxis [...] Infarction (to prevent recurrent infarct). THROMBOPLASTIN TIME [id number] 21:39:00* Test Item Value Reference Range Interpretation Comments THROMBOPLASTIN TIME PARTIAL (test code = PTT) 39.6 Seconds 25.0-39. 5 H Therapeutic Range: 50.4 - 88.3 Seconds Effective 06/03/2018 CBC W/AUTO [id number] 21:32:00* Test Item Value Reference Range Interpretation Comments WHITE BLOOD CELL (test code = WBC) 7.85 x10 3/uL 4.5-11.0 RED BLOOD CELL (test code = RBC) 4.15 x10 6/uL 4.00-5.60 N HEMOGLOBIN (test code = HGB) 13.2 g/dL 12.5-16.9 N HEMATOCRIT (test code = HCT) 36.6 % 37.5-50.7 L MEAN CELL VOLUME (test code = MCV) 88.2 fL 81.0-99.0 N MEAN CELL HGB (test code = MCH) 31.8 pg 27.0-33.0 N MEAN CELL HGB CONCETRATION (test code = MCHC) 36.1 g/dL 33.0-37. 0 N RED CELL DISTRIBUTION WIDTH CV (test code = RDW) 15.0 % 11.5- 14.5 H RED CELL DISTRIBUTION WIDTH SD (test code = RDW-SD) 48.0 fL 37 .0-54.0 N PLATELET COUNT (test code = PLT) 213 x10 3/uL 150-400 N MEAN PLATELET VOLUME (test code = MPV) 10.0 fL 7.0-9.0 H NEUTROPHIL % (test code = NT%) 51.9 % 56.0-77.0 L IMMATURE GRANULOCYTE % (test code = IG%) 1.3 % 0.0-2.0 N LYMPHOCYTE % (test code = LY%) 37.7 % 14.0-32.0 H MONOCYTE % (test code = MO%) 7.1 % 4.8-9.0 N EOSINOPHIL % (test code = EO%) 1.5 % 0.3-3.7 N BASOPHIL % (test code = BA%) 0.5 % 0.0-2.0 N NUCLEATED RBC % (test code = NRBC%) 0.0 % 0-0 N NEUTROPHIL # (test code = NT#) 4.07 x10 3/uL 2.0-7.6 N IMMATURE GRANULOCYTE # (test code = IG#) 0.10 x10 3/uL 0.00-0.03 H LYMPHOCYTE # (test code = LY#) 2.96 x10 3/uL 1.0-3.8 N MONOCYTE # (test code = MO#) 0.56 x10 3/uL 0.1-0.8 N EOSINOPHIL # (test code = EO#) 0.12 x10 3/uL 0.0-0.2 N BASOPHIL # (test code = BA#) 0.04 x10 3/uL 0.0-0.2 N NUCLEATED RBC # (test code = NRBC#) 0.00 x10 3/uL 0.0-0.1 N MANUAL DIFF REQUIRED (test code = MDIFF) NO TROPONIN-I [id number] 23:49:00* Test Item Value Reference Range Interpretation Comments TROPONIN-I RAPID (test code = TROPIRAP) 0.00 ng/mL 0.00-0.08 N Performed by certified skoog patching machine operator at [facility] Negative: <= 0.08 Positive: >= 0.09An elevated troponin value alone is not sufficient todiagnose a myocardial infarction. Rather, the patient sclinical presentation (history, physical exam) and ECGshould be used in conjunction with troponin in thediagnostic evaluation of suspected myocardial infarction. Aserial sampling protocol is recommended to facilitate the identification of temporal changes in troponin levels characteristic of IA. - XR CHEST 1 [id number] 22:47:00 FAX: Rodney Dubon MD [phone] [place]: St: [facility] FAX: Blake Cazares MD [phone] Name: ARANZA LOPEZ [facility] : 1970 Age/S: 48/M [address] [place] [address] Blvd Unit #: [id number] Loc: [place] [address] Phys: Rodney Dubon MD Acct: [id number] Dis Date: Status: REG ER PHONE #: [phone] Exam Date: 07/22/20183 FAX #: [phone] Reason: Chest Pain EXAMS: CPT CODE: [id number] XR CHEST 1 V 17291 PROCEDURE: CHEST SINGLE VIEW INDICATION: Chest pain [...] results of that study. SL: VERENICE at 6243 Reported and signed by: Gonzalo Cespedes M.D. CC: Rodney Dubon MD; Blake Cruz M.D. Technologist: DEWAYNE Patiño) Trnscrd Date/Time/By: 07/22/2018 (8093) : By: OpalKWL Orig Print D/T: S: 07/22/2018 (7470) PAGE 1 Signed Report - CT ANGIO [id number] 22:46:00 Name: ARANZA LOPEZ [facility] : 1970 Age/S: 48 / M [address] [place] [address] Unit #: [id number] Loc: [place] [address] Phys: Rodney Dubon MD Acct: [id number] Dis Date: Status: REG ER PHONE #: [phone] Exam Date: 07/22/20182210 FAX #: [phone] Reason: Chest Pain EXAMS: CPT CODE: [id number] CT ANGIO CHEST 57646 PROCEDURE: CTA CHEST INDICATION: Chest pain. History [...] PAGE 1 Signed Report (CONTINUED) Name: ARANZA LOPEZ [facility] : 1970 Age/S: 48 / M [address] [place] [address] Unit #: [id number] Loc: [place] [address] Phys: Rodney Dubon MD Acct: [id number] Dis Date: Status: REG ER PHONE #: [phone] Exam Date: 07/22/20182210 FAX #: [phone] Reason: Chest Pain EXAMS: CPT CODE: [id number] CT ANGIO CHEST 68358 < Continued> MUSCULOSKELETAL: Bilateral gynecomastia. Healed median [...] Itz(R) CTDI: DLP: Trnscb Date/Time: 07/22/2018 (2245) t.[email or web address] Orig Print D/T: S: 07/22/2018 (3609) PAGE 2 Signed Report B- TYPE NATRIURETIC [id number] 22:28:00* Test Item Value Reference Range Interpretation Comments B-TYPE NATRIURETIC PEPTIDE (test code = BNP) 16.6 PG/ML 0-100 N - DUP VEIN [id number] 22:18:00 Name: ARANZA LOPEZ [facility] : 1970 Age/S: 48 / M [address] [place] [address] Blvd Unit #: [id number] Loc: [place] [address] Phys: Rodney Dubon MD Acct: [id number] Dis Date: Status: REG ER PHONE #: [phone] Exam Date: 07/22/20188 FAX #: [phone] Reason: BLE swelling, worse on L, r/o DVT EXAMS: CPT CODE: [id number] DUP VEIN RUBEN 49770 PROCEDURE: BILATERAL LOWER EXTREMITY VENOUS ULTRASOUND INDICATION: [...] collection. IMPRESSION: No deep venous thrombosis. SL: VERENICE at 2218 Reported and signed by: Gonzalo Cespedes M.D. CC: Rodney Dubon MD; Blake Cruz M.D. Technologist: Harmony Wylie RDMS(Jean Carlos)(OB) Trnscb Date/Time: 07/22/2018 (2217) DaL Orig Print D/T: S: 07/22/2018 (3892) Probe: PAGE 1 Signed Report CBC W/AUTO [id number] 22:02:00* Test Item Value Reference Range Interpretation Comments WHITE BLOOD CELL (test code = WBC) 5.38 x10 3/uL 4.5-11.0 N RED BLOOD CELL (test code = RBC) 4.36 x10 6/uL 4.00-5.60 N HEMOGLOBIN (test code = HGB) 13.4 g/dL 12.5-16.9 N HEMATOCRIT (test code = HCT) 39.1 % 37.5-50.7 N MEAN CELL VOLUME (test code = MCV) 89.7 fL 81.0-99.0 N MEAN CELL HGB (test code = MCH) 30.7 pg 27.0-33.0 N MEAN CELL HGB CONCETRATION (test code = MCHC) 34.3 g/dL 33.0-37. 0 N RED CELL DISTRIBUTION WIDTH CV (test code = RDW) 15.1 % 11.5- 14.5 H RED CELL DISTRIBUTION WIDTH SD (test code = RDW-SD) 49.1 fL 37 .0-54.0 N PLATELET COUNT (test code = PLT) 203 x10 3/uL 150-400 N MEAN PLATELET VOLUME (test code = MPV) 10.0 fL 7.0-9.0 H NEUTROPHIL % (test code = NT%) 53.7 % 56.0-77.0 L IMMATURE GRANULOCYTE % (test code = IG%) 1.5 % 0.0-2.0 N LYMPHOCYTE % (test code = LY%) 34.6 % 14.0-32.0 H MONOCYTE % (test code = MO%) 7.4 % 4.8-9.0 N EOSINOPHIL % (test code = EO%) 2.2 % 0.3-3.7 N BASOPHIL % (test code = BA%) 0.6 % 0.0-2.0 N NUCLEATED RBC % (test code = NRBC%) 0.0 % 0-0 N NEUTROPHIL # (test code = NT#) 2.89 x10 3/uL 2.0-7.6 N IMMATURE GRANULOCYTE # (test code = IG#) 0.08 x10 3/uL 0.00-0.03 H LYMPHOCYTE # (test code = LY#) 1.86 x10 3/uL 1.0-3.8 N MONOCYTE # (test code = MO#) 0.40 x10 3/uL 0.1-0.8 N EOSINOPHIL # (test code = EO#) 0.12 x10 3/uL 0.0-0.2 N BASOPHIL # (test code = BA#) 0.03 x10 3/uL 0.0-0.2 N NUCLEATED RBC # (test code = NRBC#) 0.00 x10 3/uL 0.0-0.1 N MANUAL DIFF REQUIRED (test code = MDIFF) NO TROPONIN-I [id number] 21:58:00* Test Item Value Reference Range Interpretation Comments TROPONIN-I RAPID (test code = TROPIRAP) 0.00 ng/mL 0.00-0.08 N Performed by certified skoog patching machine operator at [facility] Negative: <= 0.08 Positive: >= 0.09An elevated troponin value alone is not sufficient todiagnose a myocardial infarction. Rather, the patient sclinical presentation (history, physical exam) and ECGshould be used in conjunction with troponin in thediagnostic evaluation of suspected myocardial infarction. Aserial sampling protocol is recommended to facilitate the identification of temporal changes in troponin levels characteristic of IA. CHEMISTRY 8 [id number] 21:51:00* Test Item Value Reference Range Interpretation Comments ISTAT-SODIUM (test code = NAP) MMOL/L 134-147 ISTAT-POTASSIUM (test code = KP) MMOL/L 3.4-5.0 ISTAT-CHLORIDE (test code = CLP) MMOL/L 100-108 ISTAT CARBON DIOXIDE (test code = ISTAT-CO2) mmol/L 21-33 N ISTAT CALCIUM IONIZED (test code = ISTAT-KAREEM) MG/DL 1.12-1.3 2 ISTAT-GLUCOSE (test code = GLUP) MG/DL 70-110 H ISTAT-BUN (test code = BUNP) MG/DL 7-18 H BEDSIDE CREATININE (test code = CREATBED) MG/DL 0.6-1.3 N GLOMERULAR FILTRATION RATE POC (test code = GFRBED) 69 ML/MIN CHEMISTRY 8 [id number] 21:51:00* Test Item Value Reference Range Interpretation Comments ISTAT-SODIUM (test code = NAP) 138 MMOL/L 134-147 N ISTAT-POTASSIUM (test code = KP) 3.6 MMOL/L 3.4-5.0 N ISTAT-CHLORIDE (test code = CLP) 97 MMOL/L 100-108 L Performed by certified skoog patching machine operator at [facility] ISTAT CARBON DIOXIDE (test code = ISTAT-CO2) 27.0 mmol/L 21-33 N ISTAT CALCIUM IONIZED (test code = ISTAT-KAREEM) 1.11 MG/DL 1.12-1.3 2 L ISTAT-GLUCOSE (test code = GLUP) 295 MG/DL 70-110 H ISTAT-BUN (test code = BUNP) 20 MG/DL 7-18 H BEDSIDE CREATININE (test code = CREATBED) 1.2 MG/DL 0.6-1.3 N GLOMERULAR FILTRATION RATE POC (test code = GFRBED) 69 ML/MIN [id number] 10:56:00* Test Item Value Reference Range Interpretation Comments TROPONIN-I (test code = TROPI) <0.015 ng/mL 0-0.045 N COMMENTS TO BAG PRINTER: COLLECT 3 HOURS AFTER PREVIOUS [id number] 04:30:00* Test Item Value Reference Range Interpretation Comments TROPONIN-I (test code = TROPI) <0.015 ng/mL 0-0.045 N COMMENTS TO BAG PRINTER: COLLECT 3 HOURS AFTER PREVIOUS SAMPLE- CT UP EXTREM W/O CONT [id number] 02:33:00 Name: DEVONTEARNAZA [facility] : 1970 Age/S: 48 / M [address] Unit #: [id number] Loc: [place] [address] Phys: Jan Ly MD Acct: [id number] Dis Date: Status: ADM IN PHONE #: [phone] Exam Date: 06/13/2018 0135 FAX #: [phone] Reason: R elbow pain and abnormal xray EXAMS: CPT CODE: [id number] CT UP EXTREM W/[place] [address] R16 EXAM: - CT UP EXTREM W/O [...] Jan Ly MD; Blake Cruz MD Technologi st:[facility] CTDI: DLP: Trnscb Date/Time: (0233) SherronR.VB7 Orig Print D/T: S: 06/13/2018 ( 0237) CTDI: DLP: PAGE 1 Signed Re [facility] BASIC METABOLIC [id number] 00:31:00* Test Item Value Reference Range Interpretation Comments SODIUM (test code = NA) 139 mmol/L 136-145 N POTASSIUM (test code = K) 2.9 mmol/L 3.5-5.1 L Re sults called to [id number] by V.[email or web address] 06/13/18 0030Critical results verified and read back by Nurse? Y CHLORIDE (test code = CL) 102.0 mmol/L 98-107 N CARBON DIOXIDE (test code = CO2) 28.0 mmol/L 21-32 N ANION GAP (test code = GAP) 11.9 10-20 N GLUCOSE (test code = GLU) 201 mg/dL 74-106 H BLOOD UREA NITROGEN (test code = BUN) 14 mg/dL 7-18 N GLOMERULAR FILTRATION RATE (test code = GFR) > 60 mL/min >=60 Estimated GFR by using Modified MDRD formula.Chronic kidney disease is defined as either kidney damageor GFR <60 mL/min/1.73 m2 for >3 months. CREATININE (test code = CREAT) 1.20 mg/dL 0.7-1.3 N BUN/CREATININE RATIO (test code = BUN/CREA) 11.7 10-20 N CALCIUM (test code = CA) 8.6 mg/dL 8.5-10.1 N [id number] 00:31:00* Test Item Value Reference Range Interpretation Comments TROPONIN-I (test code = TROPI) <0.015 ng/mL 0-0.045 N B-TYPE NATRIURETIC [id number] 00:31:00* Test Item Value Reference Range Interpretation Comments B-TYPE NATRIURETIC PEPTIDE (test code = BNP) 32.04 pgram/mL 0-100 N PROTHROMBIN [id number] 00:13:00* Test Item Value Reference Range Interpretation Comments PROTHROMBIN TIME PATIENT (test code = PTP) 12.0 seconds 9.0-14.0 N INTERNATIONAL NORMAL RATIO (test code = INR) 1.0 0.8-1.2 N The therapeutic range for oral anticoagulant therapy [...] (2.5-3.5) IS PATIENT ON ANTICOAGULANTS? NTHROMBOPLASTIN TIME [id number] 00:13:00* Test Item Value Reference Range Interpretation Comments THROMBOPLASTIN TIME PARTIAL (test code = PTT) 37.3 seconds 25.0-36. 5 H IS PATIENT ON ANTICOAGULANTS? [id number] 00:13:00* Test Item Value Reference Range Interpretation Comments D-DIMER (test code = DDIMER) 454.00 ng/mLFEU 0-500 N Clinical Cut-off value for D-Dimer is 500 ng/mL FEU. Comment: [employer] [...] surgery within previous 4 weeks -Disseminated malignancies -Aortic aneurysm -Sepsis, severe infections, pneumonia, severe skin infections -Liver cirrhosis - IS PATIENT ON ANTICOAGULANTS? NCBC W/O [id number] 23:56:00* Test Item Value Reference Range Interpretation Comments WHITE BLOOD CELL (test code = WBC) 8.3 K/mm3 4.5-12.5 N RED BLOOD CELL (test code = RBC) 4.26 mill/mm3 4.0-5.8 N HEMOGLOBIN (test code = HGB) 12.6 gram/dL 13.0-17.5 L HEMATOCRIT (test code = HCT) 38.9 % 42.0-52.0 L MEAN CELL VOLUME (test code = MCV) 91.3 fL 80-98 N MEAN CELL HGB (test code = MCH) 29.6 picogram 27.0-33.0 N MEAN CELL HGB CONCETRATION (test code = MCHC) 32.4 gram/dL 33.0-36. 0 L RED CELL DISTRIBUTION WIDTH (test code = RDW) 14.0 % 11.6-16. 2 N PLATELET COUNT (test code = PLT) 175 K/mm3 150-450 N MEAN PLATELET VOLUME (test code = MPV) 9.8 fL 6.7-11.0 N - XR ELBOW 3 + V [id number] 23:50:00 FAX: Jan Ly MD [phone] [place]: St: REG FAX: Blake Cazares MD [phone] Name: ARANZA LOPEZ [facility] : 1970 Age/S: 48/M [address] [facility] Unit #: [id number] Loc: [place] [address] Phys: Jan yL MD Acct: [id number] Dis Date: Status: REG ER PHONE #: [phone] Exam Date: 06/12/2018 2334 FAX #: [phone] Reason: elbow pain EXAMS: CPT CODE: [id number] XR ELBOW 3 + V RT 13066 - XR ELBOW 3 + V RT, [...] may reflect superimposition of s hadow at 8520 Reported and signed by: Ana Paula Seaman M.D. CC: Jan Ly MD; Blake Cruz MD Technologist: ROBER HERNANDEZ RT Trnscrd Date/Time/By: 06/12/2018 (9446) : By: OpalSR31 Orig Print D/T: S: 06/12/2018 (1058) PAGE 1 Signed Report - CT HEAD/BRAIN W/O [id number] 23:45:00 Name: ARANZA LOPEZ [facility] : 1970 Age/S: 48 / M [address] [facility] Unit #: [id number] Loc: [place], [place] [address] Phys: Jan Ly MD Acct: [id number] Dis Date: Status: REG ER PHONE #: [phone] Exam Date: 06/12/2018 3244 FAX #: [phone] Reason: Syncope EXAMS: CPT CODE: [id number] CT HEAD/BRAIN W/O CONT 39037 Exam: CT of the brain without contrast. [...] limited at the vertex is excluded from sgoic-se-abqu (the exam terminates prematurely and portion of [...] limited at the vertex is excluded from upems-ju-qxhr (the exam terminates prematurely and portion of the brain is excluded) No CT evidence of an acute intracranial hemorrhage or significant mass effect is visualized. A repeat evaluation to include the entirety of the brain would be beneficial when the patient able to hold still. E lectronically Signed by Ana Paula Seaman M.D. on 06/12/2018 at 7595 Reported and signed by: Ana Paula Seaman M.D. CC: Jan Ly MD; Blake Cruz MD Technologist:DEXTER GAMBLE CTDI: DLP: T rnscb Date/Time: 06/12/2018 (7099) SherronRMekhiSR31 Orig Print D /T: S: 06/12/2018 (2599) CTDI: DLP: PAGE 1 Signed Report - XR CHEST 1 [id number] 23:39:00 FAX: Jan Ly MD [phone] [place]: St: REG FAX: N Blake Cruz MD [phone] Name: DEVONTEARANZA [facility] : 1970 Age/S: 48/M [address] [facility] Unit #: [id number] Loc: [place] [address] Phys: Jan Ly MD Acct: [id number] Dis Date: Status: REG ER PHONE #: [phone] Exam Date: 06/12/2018 2334 FAX #: [phone] Reason: SYNCOPE EXAMS: CPT CODE: [id number] XR CHEST 1 V 91017 - XR CHEST 1 V, 06/12/2018 11:06 PM Reason For Examination: SYNCOPE Comparison: None available Location: R16 Findings LUNGS: Low lung volumes limit evaluation. Likely vascular congestion/mild edema PLEURA: No pleural effusions CARDIOMEDIASTINAL SILHOUETTE Mild enlargement IMPRESSION: Low lung volumes limit evaluation. Likely vascular congestion/mild edema and enlargement of the cardiac silhouette at 9702 Reported and signed by: Ana Paula Seaman M.D. CC: Jan Ly MD; Blake Cruz MD Technologist: [facility] Date/Time/By: 06/12/2018 (1300) : By: [email or web address] Orig Print D/T: S: 06/12/2018 (7194) PAGE 1 Signed Report GLUBED 2018-06-06 11:29:00* Test Item Value Reference Range Interpretation Comments GLUBED (test code = GLUBED) 199 mg/dL 74-106 H Performed by certified skoog patching machine operator at [facility] [id number] 07:55:00* Test Item Value Reference Range Interpretation Comments TROPONIN-I (test code = TROPI) 0.035 ng/mL 0-0.045 N COMMENTS TO BAG PRINTER: COLLECT 3 HOURS AFTER PREVIOUS [id number] 07:27:00* Test Item Value Reference Range Interpretation Comments GLUBED (test code = GLUBED) 233 mg/dL 74-106 H Performed by certified skoog patching machine operator at [facility] [id number] 05:55:00* Test Item Value Reference Range Interpretation Comments TROPONIN-I (test code = TROPI) 0.062 ng/mL 0-0.045 HH Results called to [id number] by V.[email or web address] 06/06/18 0554Critical results verified and read back by Nurse? Y COMMENTS TO BAG PRINTER: COLLECT 3 HOURS AFTER PREVIOUS SAMPLEBASIC METABOLIC [id number] 05:28:00* Test Item Value Reference Range Interpretation Comments SODIUM (test code = NA) 138 mmol/L 136-145 N POTASSIUM (test code = K) 3.6 mmol/L 3.5-5.1 N CHLORIDE (test code = CL) 100.0 mmol/L 98-107 N CARBON DIOXIDE (test code = CO2) 29.0 mmol/L 21-32 N ANION GAP (test code = GAP) 12.6 10-20 N GLUCOSE (test code = GLU) 272 mg/dL 74-106 H BLOOD UREA NITROGEN (test code = BUN) 15 mg/dL 7-18 N GLOMERULAR FILTRATION RATE (test code = GFR) 54 mL/min >=60 Estimated GFR by using Modified MDRD formula.Chronic kidney disease is defined as either kidney damageor GFR <60 mL/min/1.73 m2 for >3 months. CREATININE (test code = CREAT) 1.40 mg/dL 0.7-1.3 H BUN/CREATININE RATIO (test code = BUN/CREA) 10.7 10-20 N CALCIUM (test code = CA) 8.2 mg/dL 8.5-10.1 L BASIC METABOLIC [id number] 05:25:00* Test Item Value Reference Range Interpretation Comments SODIUM (test code = NA) 138 mmol/L 136-145 N POTASSIUM (test code = K) 3.6 mmol/L 3.5-5.1 N CHLORIDE (test code = CL) 100.0 mmol/L 98-107 N CARBON DIOXIDE (test code = CO2) mmol/L 21-32 ANION GAP (test code = GAP) 10-20 GLUCOSE (test code = GLU) mg/dL 74-106 BLOOD UREA NITROGEN (test code = BUN) mg/dL 7-18 GLOMERULAR FILTRATION RATE (test code = GFR) mL/min >=60 CREATININE (test code = CREAT) mg/dL 0.7-1.3 BUN/CREATININE RATIO (test code = BUN/CREA) 10-20 CALCIUM (test code = CA) mg/dL 8.5-10.1 [id number] 03:06:00* Test Item Value Reference Range Interpretation Comments GLUBED (test code = GLUBED) 298 mg/dL 74-106 H Performed by certified skoog patching machine operator at [facility] [id number] 01:47:00* Test Item Value Reference Range Interpretation Comments GLUBED (test code = GLUBED) 302 mg/dL 74-106 H Performed by certified skoog patching machine operator at [facility] - CTA [id number] 22:28:00 Name: ARANZA LOPEZ [facility] : 1970 Age/S: 48 / M [address] [facility] Unit #: [id number] Loc: [place] [address] Phys: STIVEN VASQUEZ MD Acct: [id number] Dis Date: Status: REG ER PHONE #: [phone] Exam Date: 06/05/20182219 FAX #: [phone] Reason: chest pain, prior PE, prior aortic dissection s EXAMS: CPT CODE: [id number] CTA CHEST 68300 REASON FOR EXAM: chest pain, prior PE, prior aortic dissection s/p repair EXAM ORDER DATE: 06/05/2018 9:41 PM Ordering Jose Luis: STIVEN VASQUEZ MD PROCEDURE: - CTA CHEST [...] Blake Cruz MD; STIVEN VASQUEZ MD Technologist:Cb PASTRANA(R)(CT); . CTDI: DLP: Trnscb Date/Time: 06/05/2018 (2227) t.[email or web address] Orig Print D/T: S: 06/05/2018 (2231) CTDI: DLP: PAGE 1 Signed Report PROTHROMBIN [id number] 21:47:00* Test Item Value Reference Range Interpretation Comments PROTHROMBIN TIME PATIENT (test code = PTP) 11.9 seconds 9.0-14.0 N INTERNATIONAL NORMAL RATIO (test code = INR) 1.0 0.8-1.2 N The therapeutic range for oral anticoagulant therapy [...] (2.5-3.5) IS PATIENT ON ANTICOAGULANTS? NTHROMBOPLASTIN TIME [id number] 21:47:00* Test Item Value Reference Range Interpretation Comments THROMBOPLASTIN TIME PARTIAL (test code = PTT) 36.8 seconds 25.0-36. 5 H IS PATIENT ON ANTICOAGULANTS? NBASIC METABOLIC [id number] 21:46:00* Test Item Value Reference Range Interpretation Comments SODIUM (test code = NA) 138 mmol/L 136-145 N POTASSIUM (test code = K) 2.9 mmol/L 3.5-5.1 L Re sults called to [id number] by [employer] 06/05/18 2146Critical results verified and read back by Nurse? Y CHLORIDE (test code = CL) 100.0 mmol/L 98-107 N CARBON DIOXIDE (test code = CO2) 27.0 mmol/L 21-32 N ANION GAP (test code = GAP) 13.9 10-20 N GLUCOSE (test code = GLU) 303 mg/dL 74-106 H BLOOD UREA NITROGEN (test code = BUN) 16 mg/dL 7-18 N GLOMERULAR FILTRATION RATE (test code = GFR) 40 mL/min >=60 Estimated GFR by using Modified MDRD formula.Chronic kidney disease is defined as either kidney damageor GFR <60 mL/min/1.73 m2 for >3 months. CREATININE (test code = CREAT) 1.80 mg/dL 0.7-1.3 H BUN/CREATININE RATIO (test code = BUN/CREA) 8.9 10-20 L CALCIUM (test code = CA) 8.6 mg/dL 8.5-10.1 N [id number] 21:46:00* Test Item Value Reference Range Interpretation Comments MAGNESIUM (test code = MAG) 1.5 mg/dL 1.8-2.4 L [id number] 21:46:00* Test Item Value Reference Range Interpretation Comments TROPONIN-I (test code = TROPI) <0.015 ng/mL 0-0.045 N CBC W/O [id number] 21:25:00* Test Item Value Reference Range Interpretation Comments WHITE BLOOD CELL (test code = WBC) 6.9 K/mm3 4.5-12.5 N RED BLOOD CELL (test code = RBC) 4.42 mill/mm3 4.0-5.8 N HEMOGLOBIN (test code = HGB) 13.5 gram/dL 13.0-17.5 N HEMATOCRIT (test code = HCT) 39.7 % 42.0-52.0 L MEAN CELL VOLUME (test code = MCV) 89.8 fL 80-98 N MEAN CELL HGB (test code = MCH) 30.5 picogram 27.0-33.0 N MEAN CELL HGB CONCETRATION (test code = MCHC) 34.0 gram/dL 33.0-36. 0 N RED CELL DISTRIBUTION WIDTH (test code = RDW) 13.7 % 11.6-16. 2 N PLATELET COUNT (test code = PLT) 164 K/mm3 150-450 N MEAN PLATELET VOLUME (test code = MPV) 9.6 fL 6.7-11.0 N - XR CHEST 1 [id number] 21:25:00 FAX: Blake Cazares MD [phone] [place]: St: [facility] FAX: STIVEN VASQUEZ MD Name: ARANZA LOPEZ [facility] : 1970 Age/S: 48/M [address] [facility] Unit #: [id number] Loc: [place] [address] Phys: STIVEN VASQUEZ MD Acct: [id number] Dis Date: Status: REG ER PHONE #: [phone] Exam Date: 06/05/20182117 FAX #: [phone] Reason: CHEST PAIN EXAMS: CPT CODE: [id number] XR CHEST 1 V 35189 REASON FOR EXAM: CHEST PAIN EXAM ORDER DATE: 06/05/2018 8:56 PM Ordering Jose Luis: STIVEN VASQUEZ MD PROCEDURE: - XR CHEST 1 V COMPARISON: 05/10/2018 FINDINGS: Portable AP frontal view of the chest obtained at 9:16 PM shows diffuse airspace opacity. There is no evidence of effusion. The heart size is minimally enlarged. Pulmonary vasculatures are mildly congested. IMPRESSION: Congestive heart failure with pulmonary edema at 2124 Reported and signed by: Alvin Barber M.D. CC: Blake Cruz MD; STIVEN VASQUEZ MD Technologist: DEACON RITCHIE Trnmord Date/Time/By: 06/05/2018 (2124) : By: nilson CHILDERSVTL Orig Print D/T: S: 06/05/2018 (2127) PAGE 1 Signed Report CBC W/O [id number] 21:23:00* Test Item Value Reference Range Interpretation Comments WHITE BLOOD CELL (test code = WBC) K/mm3 4.5-12.5 RED BLOOD CELL (test code = RBC) mill/mm3 4.0-5.8 HEMOGLOBIN (test code = HGB) 13.5 gram/dL 13.0-17.5 N HEMATOCRIT (test code = HCT) % 42.0-52.0 MEAN CELL VOLUME (test code = MCV) fL 80-98 MEAN CELL HGB (test code = MCH) picogram 27.0-33.0 MEAN CELL HGB CONCETRATION (test code = MCHC) gram/dL 33.0-36. 0 RED CELL DISTRIBUTION WIDTH (test code = RDW) % 11.6-16. 2 PLATELET COUNT (test code = PLT) K/mm3 150-450 MEAN PLATELET VOLUME (test code = MPV) fL 6.7-11.0 Creatine Kinase [id number] 01:48:00* Test Item Value Reference Range Interpretation Comments Creatine Kinase MB (test code = 43532-6) 1.50 0-5.0 [facility] 01:48:00* Test Item Value Reference Range Interpretation Comments Lipase (test code = 3040-3) 41 8-78 [facility] [id number] 01:15:00* Test Item Value Reference Range Interpretation Comments Urine WBC (test code = 5821-4) 0-5 0-5 [facility] [id number] 01:15:00* Test Item Value Reference Range Interpretation Comments Urine RBC (test code = 15338-9) 0-5 0-5 [facility] [id number] 01:15:00* Test Item Value Reference Range Interpretation Comments Urine Bacteria (test code = 19835-4) NONE NONE [facility] Epithelial [id number] 01:15:00 * Test Item Value Reference Range Interpretation Comments Urine Epithelial Cells (test code = 92299-3) RARE NONE [facility]-Type Natriuretic [id number] 01:14:00* Test Item Value Reference Range Interpretation Comments B-Type Natriuretic Peptide (test code = 58129-5) 34.1 0-100 [facility]rop[facility] [id number] 01:13:00* Test Item Value Reference Range Interpretation Comments Troponin I (test code = IAU6012) 0.002 0-0.300 [facility] [id number] 00:59:00* Test Item Value Reference Range Interpretation Comments Urine Color (test code = 5778-6) YELLOW YELLOW [facility] Ejlljpe1927-84-14 00:59:00* Test Item Value Reference Range Interpretation Comments Urine Clarity (test code = 83663-5) CLEAR CLEAR [facility] Specific [id number] 00:59:00 * Test Item Value Reference Range Interpretation Comments Urine Specific [place] (test code = 5811-5) 1.010 1.010-1.02 5 [facility] [id number] 00:59:00* Test Item Value Reference Range Interpretation Comments Urine pH (test code = 44588-6) 7 5-7 [facility] Leukocyte Ggdjbtqz8819-75-61 00:59:00* Test Item Value Reference Range Interpretation Comments Urine Leukocyte Esterase (test code = 5799-2) NEGATIVE NEGATIVE [facility] [id number] 00:59:00* Test Item Value Reference Range Interpretation Comments Urine Nitrite (test code = 51257-4) NEGATIVE NEGATIVE [facility] Wmjzacv2989-03-96 00:59:00* Test Item Value Reference Range Interpretation Comments Urine Protein (test code = 5804-0) NEGATIVE NEGATIVE [facility] Glucose (UA)2018-05-29 00:59:00* Test Item Value Reference Range Interpretation Comments Urine Glucose (UA) (test code = 2349-9) NEGATIVE NEGATIVE [facility] [id number] 00:59:00* Test Item Value Reference Range Interpretation Comments Urine Ketones (test code = 01516-2) NEGATIVE NEGATIVE [facility] Opiates [id number] 00:59:00* Test Item Value Reference Range Interpretation Comments Urine Opiates Screen (test code = 50838-1) NEGATIVE NEGATIVE ALL TESTS PERFORMED MANUALLY ON [employer] TOX/SEE [facility] Barbiturates Zozbbo1667-04-12 00:59:00* Test Item Value Reference Range Interpretation Comments Urine Barbiturates Screen (test code = 386411904) NEGATIVE NEGA TIVE [facility] Phencyclidine [id number] 00:59:00* Test Item Value Reference Range Interpretation Comments Urine Phencyclidine Screen (test code = 68309-0) NEGATIVE NEGAT DEVONTE [facility] Amphetamines Iptqye7307-08-04 00:59:00* Test Item Value Reference Range Interpretation Comments Urine Amphetamines Screen (test code = 17119-0) NEGATIVE NEGATI VE [facility] Methamphetamines [id number] 00:59:00* Test Item Value Reference Range Interpretation Comments Urine Methamphetamines Screen (test code = Urine Metha mphetamines Screen) NEGATIVE NEGATIVE [facility] Benzodiazepines [id number] 00:59:00* Test Item Value Reference Range Interpretation Comments Urine Benzodiazepines Screen (test code = 14477-6) NEGATIVE NEG ATIVE [facility] Cocaine Jhlzzp9881-34-61 00:59:00* Test Item Value Reference Range Interpretation Comments Urine Cocaine Screen (test code = 3398-5) NEGATIVE NEGATIVE [facility] Cannabinoids Uzgdwf5049-19-54 00:59:00* Test Item Value Reference Range Interpretation Comments Urine Cannabinoids Screen (test code = 58402-3) NEGATIVE NEGATI VE THESE RESULTS ARE FOR MEDICAL TREATMENT ONLYTHIS REPORT CONTAINS UNCONFIR MED SCREENING RESULTS*POSITIVE RESULTS WILL BE CONFIRMED BY REFERENCE LAB UPON R EQUEST CUT-OFFDRUG CLASS CONCENTRATION ng/mLAmphetamines 1000Methamphetamines 1000Cocaine 300Opiate 300Phencyc lidine 25Cannabinoid 50Barbiturates 300Benzodiazepine 300Methadone 300[facility]ennialUrine Methadone Pmeveg5337-12-15 00:59:00* Test Item Value Reference Range Interpretation Comments Urine Methadone Screen (test code = 70091-2) NEGATIVE NEGATIVE THESE RESULTS ARE FOR MEDICAL TREATMENT ONLYTHIS REPORT CONTAINS UNCONFIR MED SCREENING RESULTS*POSITIVE RESULTS WILL BE CONFIRMED BY REFERENCE LAB UPON R EQUEST CUT-OFFDRUG CLASS CONCENTRATION ng/mLAmphetamines 1000Methamphetamines 1000Cocaine Metabolite 300Opiate 300Phencyc lidine 25Cannabinoid 50Barbiturates 300Benzodiazepine 300Methadone 300[facility]ennialUrine Lcqgawnzjyiy1786-70-41 00:59:00* Test Item Value Reference Range Interpretation Comments Urine Urobilinogen (test code = 61508-4) 0.2 0.2-1 [facility] CentennialUrine Suizothqm5799-81-77 00:59:00* Test Item Value Reference Range Interpretation Comments Urine Bilirubin (test code = 1978-6) NEGATIVE NEGATIVE [facility]ennialUrine Xvswr7483-63-88 00:59:00* Test Item Value Reference Range Interpretation Comments Urine Blood (test code = 25024-8) NEGATIVE NEGATIVE [facility] Mqbun6068-58-04 00:58:00* Test Item Value Reference Range Interpretation Comments Sodium Level (test code = 2951-2) 138 136-145 [facility]ennialPotassium Pghvx8964-19-60 00:58:00* Test Item Value Reference Range Interpretation Comments Potassium Level (test code = 2823-3) 3.4 3.5-5.1 L [facility] CentennialChloride Qktdg2185-02-01 00:58:00* Test Item Value Reference Range Interpretation Comments Chloride Level (test code = 2075-0) 97 98-107 L [facility] CentennialCarbon Dioxide Yujgw1403-00-16 00:58:00* Test Item Value Reference Range Interpretation Comments Carbon Dioxide Level (test code = 2028-9) 28 22-29 [facility] CentennialAnion Tkz4324-12-08 00:58:00* Test Item Value Reference Range Interpretation Comments Anion Gap (test code = 10854-3) 16.4 8-16 H [facility] CentennialBlood Urea Ypaelhdl1494-61-91 00:58:00* Test Item Value Reference Range Interpretation Comments Blood Urea Nitrogen (test code = 3094-0) 19 7-26 [facility] CentennialCreatinine2019-04-11 00:58:00* Test Item Value Reference Range Interpretation Comments Creatinine (test code = 2160-0) 1.26 0.72-1.25 H [facility]ennialBUN/Creatinine Vlvsf1840-08-32 00:58:00* Test Item Value Reference Range Interpretation Comments BUN/Creatinine Ratio (test code = 3097-3) 15 6-25 [facility] CentennialEstimat Glomerular Filtration Rate 2018-05-29 00:58:00* Test Item Value Reference Range Interpretation Comments Estimat Glomerular Filtration Rate (test code = 873329137) > 60 >60 Ranges were taken from the National Kidney Disease Education Program and the [place] [facility] Kidney Foundation literature.Reference ranges:60 or greater: Sdgfup66-97 ( for 3 consecutive months): Chronic kidney disease 15 or less: Kidney failureBaylor Scott & [facility] – CentennialGlucose Rwpdn4078-52-28 00:58:00* Test Item Value Reference Range Interpretation Comments Glucose Level (test code = FSB9890) 146 74-118 H [facility] CentennialCalcium Awpiq7839-25-95 00:58:00* Test Item Value Reference Range Interpretation Comments Calcium Level (test code = 69914-4) 9.6 8.4-10.2 [facility] CentennialTotal Npuwxclzn2606-34-80 00:58:00* Test Item Value Reference Range Interpretation Comments Total Bilirubin (test code = 1975-2) 0.4 0.2-1.2 [facility] CentennialAspartate Amino Transf (AST/SGOT) 2018-05-29 00:58:00* Test Item Value Reference Range Interpretation Comments Aspartate Amino Transf (AST/SGOT) (test code = Aspartate Amino Transf (AST/SGOT)) 18 5-34 [facility] CentennialAlanine Aminotransferase (ALT/SGPT) 2018-05-29 00:58:00* Test Item Value Reference Range Interpretation Comments Alanine Aminotransferase (ALT/SGPT) (test code = 1742-6) 31 0-55 [facility] CentennialTotal Iwzlvpx5404-21-65 00:58:00* Test Item Value Reference Range Interpretation Comments Total Protein (test code = 2885-2) 7.0 6.5-8.1 [facility] CentennialAlbumin2019-04-11 00:58:00* Test Item Value Reference Range Interpretation Comments Albumin (test code = 1751-7) 3.8 3.5-5.0 [facility] CentennialGlobulin2019-04-11 00:58:00* Test Item Value Reference Range Interpretation Comments Globulin (test code = 45577-9) 3.2 2.3-3.5 [facility] CentennialAlbumin/Globulin Wfwhx7300-23-62 00:58:00 * Test Item Value Reference Range Interpretation Comments Albumin/Globulin Ratio (test code = 1759-0) 1.2 0.8-2.0 [facility] CentennialAlkaline Nolyjvgungl9002-03-47 00:58:00* Test Item Value Reference Range Interpretation Comments Alkaline Phosphatase (test code = 6768-6) 104 40-150 [facility] CentennialCreatine Fnpdps8983-44-86 00:58:00* Test Item Value Reference Range Interpretation Comments Creatine Kinase (test code = 2157-6) 97 30-200 [facility] SINGLE (PORTABLE)2018-05-29 00:49:00 [facility] [address] [address] Patient Name: ARANZA LOPEZ MR #: [id number] : 1970 Age/Sex: 48/M Req #: [id number] Adm Physician: Ordered by: REED CURTIS MD Report #: [id number] Location: ER Room/Bed: Procedure: [id number] DX/CHES T SINGLE (PORTABLE) Exam Date: Exam [...] on 05/29/1849 COPY TO: REED CURTIS MD White Blood Jpkdm0307-36-99 00:46:00* Test Item Value Reference Range Interpretation Comments White Blood Count (test code = 6690-2) 11.14 4.8-10.8 H [facility] CentennialRed Blood Unhip0246-11-13 00:46:00* Test Item Value Reference Range Interpretation Comments Red Blood Count (test code = 789-8) 4.74 4.3-5.7 [facility] CentennialHemoglobin2019-04-11 00:46:00* Test Item Value Reference Range Interpretation Comments Hemoglobin (test code = 23952-6) 14.4 14.0-18.0 [facility] CentennialHematocrit2019-04-11 00:46:00* Test Item Value Reference Range Interpretation Comments Hematocrit (test code = 4544-3) 42.5 38.2-49.6 [facility] CentennialMean Corpuscular Ewxcnl6675-73-57 00:46:00* Test Item Value Reference Range Interpretation Comments Mean Corpuscular Volume (test code = 787-2) 89.7 81-99 [facility] CentennialMean Corpuscular Vumedsqyaf3047-16-74 00:46:00* Test Item Value Reference Range Interpretation Comments Mean Corpuscular Hemoglobin (test code = 785-6) 30.4 28-32 [facility] CentennialMean Corpuscular Hemoglobin Concent 2018-05-29 00:46:00* Test Item Value Reference Range Interpretation Comments Mean Corpuscular Hemoglobin Concent (test code = 786-4) 33.9 31-35 [facility] CentennialRed Cell Distribution Wuscf8152-06-70 00:46:00* Test Item Value Reference Range Interpretation Comments Red Cell Distribution Width (test code = 28014-5) 13.5 11.7 -14.4 [facility] CentennialPlatelet Dlfrd8722-31-22 00:46:00* Test Item Value Reference Range Interpretation Comments Platelet Count (test code = 777-3) 262 140-360 [facility] CentennialNeutrophils (%) (Auto)2018-05-29 00:46:00 * Test Item Value Reference Range Interpretation Comments Neutrophils (%) (Auto) (test code = 33102-9) 58.3 38.7-80.0 [facility] CentennialLymphocytes (%) (Auto)2018-05-29 00:46:00 * Test Item Value Reference Range Interpretation Comments Lymphocytes (%) (Auto) (test code = 736-9) 30.2 18.0-39.1 [facility] CentennialMonocytes (%) (Auto)2018-05-29 00:46:00* Test Item Value Reference Range Interpretation Comments Monocytes (%) (Auto) (test code = 5905-5) 7.1 4.4-11.3 [facility] CentennialEosinophils (%) (Auto)2018-05-29 00:46:00 * Test Item Value Reference Range Interpretation Comments Eosinophils (%) (Auto) (test code = 713-8) 1.7 0.0-6.0 [facility] CentennialBasophils (%) (Auto)2018-05-29 00:46:00* Test Item Value Reference Range Interpretation Comments Basophils (%) (Auto) (test code = 706-2) 0.4 0.0-1.0 [facility] CentennialIM GRANULOCYTES %2018-05-29 00:46:00* Test Item Value Reference Range Interpretation Comments IM GRANULOCYTES % (test code = IM GRANULOCYTES %) 2.3 0.0- 1.0 H [facility] CentennialNeutrophils # (Auto)2018-05-29 00:46:00* Test Item Value Reference Range Interpretation Comments Neutrophils # (Auto) (test code = 751-8) 6.5 2.1-6.9 [facility] CentennialLymphocytes # (Auto)2018-05-29 00:46:00* Test Item Value Reference Range Interpretation Comments Lymphocytes # (Auto) (test code = 17075-8) 3.4 1.0-3.2 H [facility] CentennialMonocytes # (Auto)2018-05-29 00:46:00* Test Item Value Reference Range Interpretation Comments Monocytes # (Auto) (test code = 742-7) 0.8 0.2-0.8 [facility] CentennialEosinophils # (Auto)2018-05-29 00:46:00* Test Item Value Reference Range Interpretation Comments Eosinophils # (Auto) (test code = 711-2) 0.2 0.0-0.4 [facility] CentennialBasophils # (Auto)2018-05-29 00:46:00* Test Item Value Reference Range Interpretation Comments Basophils # (Auto) (test code = 704-7) 0.1 0.0-0.1 [facility] CentennialAbsolute Immature Granulocyte (auto 2018-05-29 00:46:00* Test Item Value Reference Range Interpretation Comments Absolute Immature Granulocyte (auto (shahram t code = Absolute Immature Granulocyte (auto) 0.26 0-0.1 H [facility] CentennialProthrombin Xqko8808-52-32 00:46:00* Test Item Value Reference Range Interpretation Comments Prothrombin Time (test code = 5902-2) 12.9 11.9-14.5 [facility] CentennialProthromb Time International Ratio 2018-05-29 00:46:00* Test Item Value Reference Range Interpretation Comments Prothromb Time International Ratio (test code = 6301-6) 0.92 Oral Anticoagulant Therapy INR Values:1. Low Intensity Therapy 1.5 - 2.02 . Moderate Intensity Therapy 2.0 - 3.03. High Intensity Therapy(1) 2.5 - 3. 54. High Intensity Therapy(2) 3.0 - 4.05. Panic Value INR > 5.0 [facility] CentennialActivated Partial Thromboplast Time 2018-05-29 00:46:00* Test Item Value Reference Range Interpretation Comments Activated Partial Thromboplast Time (test code = 39679-4) 27.8 23.8-35.5 [facility] CentennialURIC ZNKK5756-85-73 11:56:00* Test Item Value Reference Range Interpretation Comments URIC ACID (test code = URIC) 7.2 mg/dL 2.6-7.2 N SED GJXK8344-42-86 20:34:00* Test Item Value Reference Range Interpretation Comments SED RATE (test code = SEDW) 20 mm/hr 0-15 H WINTROBE METHOD: NORMAL RANGE FOR MEN: 0-9 MM/HR WOMAN: 0-20 MM/HR SED RATE MSHTZTUIBW2506-53-03 20:33:00* Test Item Value Reference Range Interpretation Comments SED RATE WESTERGREN (test code = SEDW) 20 mm/hr 0-15 H BASIC METABOLIC OXLXF3634-57-47 17:14:00* Test Item Value Reference Range Interpretation Comments SODIUM (test code = NA) 138 mmol/L 136-145 N POTASSIUM (test code = K) 3.8 mmol/L 3.5-5.1 N CHLORIDE (test code = CL) 104.0 mmol/L 98-107 N CARBON DIOXIDE (test code = CO2) 26.0 mmol/L 21-32 N ANION GAP (test code = GAP) 11.8 10-20 N GLUCOSE (test code = GLU) 133 mg/dL 74-106 H BLOOD UREA NITROGEN (test code = BUN) 16 mg/dL 7-18 N GLOMERULAR FILTRATION RATE (test code = GFR) > 60 mL/min >=60 Estimated GFR by using Modified MDRD formula.Chronic kidney disease is defined as either kidney damageor GFR <60 mL/min/1.73 m2 for >3 months. CREATININE (test code = CREAT) 1.20 mg/dL 0.7-1.3 N BUN/CREATININE RATIO (test code = BUN/CREA) 13.3 10-20 N CALCIUM (test code = CA) 8.5 mg/dL 8.5-10.1 N UEMNHPLB-H6635-58-23 17:14:00* Test Item Value Reference Range Interpretation Comments TROPONIN-I (test code = TROPI) <0.015 ng/mL 0-0.045 N CBC W/O OQJJ1975-16-30 17:10:00* Test Item Value Reference Range Interpretation Comments WHITE BLOOD CELL (test code = WBC) 9.3 K/mm3 4.5-12.5 N RED BLOOD CELL (test code = RBC) 4.37 mill/mm3 4.0-5.8 N HEMOGLOBIN (test code = HGB) 13.0 gram/dL 13.0-17.5 N HEMATOCRIT (test code = HCT) 40.6 % 42.0-52.0 L MEAN CELL VOLUME (test code = MCV) 92.9 fL 80-98 N MEAN CELL HGB (test code = MCH) 29.7 picogram 27.0-33.0 N MEAN CELL HGB CONCETRATION (test code = MCHC) 32.0 gram/dL 33.0-36. 0 L RED CELL DISTRIBUTION WIDTH (test code = RDW) 13.4 % 11.6-16. 2 N PLATELET COUNT (test code = PLT) 218 K/mm3 150-450 N MEAN PLATELET VOLUME (test code = MPV) 10.2 fL 6.7-11.0 N C REACTIVE AJNXELO1183-19-08 17:09:00* Test Item Value Reference Range Interpretation Comments C REACTIVE PROTEIN (test code = CRP) 2.10 mg/dL 0-0.3 H CBC W/O [id number] 17:09:00* Test Item Value Reference Range Interpretation Comments WHITE BLOOD CELL (test code = WBC) K/mm3 4.5-12.5 RED BLOOD CELL (test code = RBC) mill/mm3 4.0-5.8 HEMOGLOBIN (test code = HGB) 13.0 gram/dL 13.0-17.5 N HEMATOCRIT (test code = HCT) % 42.0-52.0 MEAN CELL VOLUME (test code = MCV) fL 80-98 MEAN CELL HGB (test code = MCH) picogram 27.0-33.0 MEAN CELL HGB CONCETRATION (test code = MCHC) gram/dL 33.0-36. 0 RED CELL DISTRIBUTION WIDTH (test code = RDW) % 11.6-16. 2 PLATELET COUNT (test code = PLT) K/mm3 150-450 MEAN PLATELET VOLUME (test code = MPV) fL 6.7-11.0 BASIC METABOLIC EWJEV2642-70-16 17:02:00* Test Item Value Reference Range Interpretation Comments SODIUM (test code = NA) 138 mmol/L 136-145 N POTASSIUM (test code = K) 3.8 mmol/L 3.5-5.1 N CHLORIDE (test code = CL) 104.0 mmol/L 98-107 N CARBON DIOXIDE (test code = CO2) mmol/L 21-32 ANION GAP (test code = GAP) 10-20 GLUCOSE (test code = GLU) mg/dL 74-106 BLOOD UREA NITROGEN (test code = BUN) mg/dL 7-18 GLOMERULAR FILTRATION RATE (test code = GFR) mL/min >=60 CREATININE (test code = CREAT) mg/dL 0.7-1.3 BUN/CREATININE RATIO (test code = BUN/CREA) 10-20 CALCIUM (test code = CA) mg/dL 8.5-10.1 GQJDSKJU-K8154-74-23 17:02:00* Test Item Value Reference Range Interpretation Comments TROPONIN-I (test code = TROPI) ng/mL 0-0.045 - XR ELBOW 2 VIEWS [id number] 16:28:00 FAX: Dacia Maurice [phone] [place]: St: REG FAX: Blake Cazares MD [phone] Name: ARANZA LOPEZ [facility] : 1970 Age/S: 47/M [address] [facility] Unit #: [id number] Loc: [place] [address] Phys: Dacia Caceres MD Acct: [id number] Dis Date: Status: REG ER PHONE #: [phone] Exam Date: 05/10/2018 1600 FAX #: [phone] Reason: redness and pain s/p fall EXAMS: CPT CODE: [id number] [place]R ELBOW [address] [place] [address] HISTORY: Pain. COMPARISON: Chest x-ray from April [...] Signed by Jose Luis Martinez on at 9084 Reported and signed by: Amira Alanis CC: Dacia Caceres MD; Blake Cruz MD Technol ogist: MIKE SIMMONS RT(R) Trnscrd Date/Time/ By: 05/10/2018 (1422) : By: [email or web address] Orig Print D/T: S: 05/10/2018 (1 891) PAGE 1 Signed Report - XR CHEST 1 [id number] 16:28:00 FAX: Dacia Maurice [phone] [place]: St: REG FAX: Blake Cazares MD [phone] Name: ARANZA LOPEZ [facility] : 1970 Age/S: 47/M [address] [facility] Unit #: [id number] Loc: [place] [address] Phys: Dacia Caceres MD Acct: [id number] Dis Date: Status: REG ER PHONE #: [phone] Exam Date: 05/10/2018 1600 FAX #: [phone] Reason: CHEST PAIN EXAMS: CPT CODE: [id number] XR CHEST 1 V 78230 HISTORY: Pain. COMPARISON: Chest x-ray from April [...] Signed by Jose Luis Martinez on at 1628 Reported and signed by: Amira Alanis CC: Dacia Caceres MD; Blake Cruz MD Technol ogist: MIKE SIMMONS RT(R) Trnscrd Date/Time/ By: 05/10/2018 (1628) : By: [email or web address] Orig Print D/T: S: 05/10/2018 (2 082) PAGE 1 Signed Report B-Type Natriuretic Lszjvoz3253-88-37 14:49:00* Test Item Value Reference Range Interpretation Comments B-Type Natriuretic Peptide (test code = 85122-5) 55.4 0-100 [facility]ennialCreatine Kinase [id number] 14:37:00* Test Item Value Reference Range Interpretation Comments Creatine Kinase MB (test code = 18857-7) 2.20 0-5.0 [facility] CentennialTroponin H0102-33-00 14:37:00* Test Item Value Reference Range Interpretation Comments Troponin I (test code = CWH2967) < 0.001 0-0.300 [facility] Qfbdl6684-27-74 14:32:00* Test Item Value Reference Range Interpretation Comments Sodium Level (test code = 2951-2) 133 136-145 L [facility] CentennialPotassium Yqsiq0329-07-19 14:32:00* Test Item Value Reference Range Interpretation Comments Potassium Level (test code = 2823-3) 4.1 3.5-5.1 [facility] CentennialChloride Ivvsr4493-74-17 14:32:00* Test Item Value Reference Range Interpretation Comments Chloride Level (test code = 2075-0) 103 98-107 [facility] CentennialCarbon Dioxide Czpsv1221-70-83 14:32:00* Test Item Value Reference Range Interpretation Comments Carbon Dioxide Level (test code = 2028-9) 25 - [facility] CentennialAnion Zeg8217-45-26 14:32:00* Test Item Value Reference Range Interpretation Comments Anion Gap (test code = 66916-0) 9.1 8-16 [facility] CentennialBlood Urea Mbtauoot2638-20-01 14:32:00* Test Item Value Reference Range Interpretation Comments Blood Urea Nitrogen (test code = 3094-0) 10 7-26 [facility] CentennialCreatinine2019-02-21 14:32:00* Test Item Value Reference Range Interpretation Comments Creatinine (test code = 2160-0) 1.06 0.72-1.25 [facility] CentennialBUN/Creatinine Zduzw3790-21-82 14:32:00* Test Item Value Reference Range Interpretation Comments BUN/Creatinine Ratio (test code = 3097-3) 9 6- [facility] CentennialEstimat Glomerular Filtration Rate 2018-04-10 14:32:00* Test Item Value Reference Range Interpretation Comments Estimat Glomerular Filtration Rate (test code = 022364320) > 60 >60 Ranges were taken from the National Kidney Disease Education Program and the [facility] [facility] Kid[facility] Foundation literature.Reference ranges:60 or greater: Mfsadl41-46 ( for 3 consecutive months): Chronic kidney disease 15 or less: Kidney failureBaylor Scott & White Medical Center – CentennialGlucose Jporr0808-08-10 14:32:00* Test Item Value Reference Range Interpretation Comments Glucose Level (test code = JGO3858) 159 74-118 H [facility] CentennialCalcium Plete2828-28-79 14:32:00* Test Item Value Reference Range Interpretation Comments Calcium Level (test code = 86069-4) 8.9 8.4-10.2 [facility] CentennialTotal Rzomhosvz6916-02-35 14:32:00* Test Item Value Reference Range Interpretation Comments Total Bilirubin (test code = 1975-2) 0.4 0.2-1.2 [facility] CentennialAspartate Amino Transf (AST/SGOT) 2018-04-10 14:32:00* Test Item Value Reference Range Interpretation Comments Aspartate Amino Transf (AST/SGOT) (test code = Aspartate Amino Transf (AST/SGOT)) 25 5-34 [facility] CentennialAlanine Aminotransferase (ALT/SGPT) 2018-04-10 14:32:00* Test Item Value Reference Range Interpretation Comments Alanine Aminotransferase (ALT/SGPT) (test code = 1742-6) 33 0-55 [facility] CentennialTotal Bjvitwp7233-78-89 14:32:00* Test Item Value Reference Range Interpretation Comments Total Protein (test code = 2885-2) 6.1 6.5-8.1 L [facility] CentennialAlbumin2019-02-21 14:32:00* Test Item Value Reference Range Interpretation Comments Albumin (test code = 1751-7) 3.6 3.5-5.0 [facility] CentennialGlobulin2019-02-21 14:32:00* Test Item Value Reference Range Interpretation Comments Globulin (test code = 06946-8) 2.5 2.3-3.5 [facility] CentennialAlbumin/Globulin Dauqf7537-30-53 14:32:00 * Test Item Value Reference Range Interpretation Comments Albumin/Globulin Ratio (test code = 1759-0) 1.4 0.8-2.0 [facility] CentennialAlkaline Nncfgvvlwpr8172-26-75 14:32:00* Test Item Value Reference Range Interpretation Comments Alkaline Phosphatase (test code = 6768-6) 90 40-150 [facility] CentennialCreatine Tumptb6445-07-05 14:32:00* Test Item Value Reference Range Interpretation Comments Creatine Kinase (test code = 2157-6) 138 30-200 [facility] CentennialAmylase Uaocd7889-34-95 14:32:00* Test Item Value Reference Range Interpretation Comments Amylase Level (test code = 1798-8) 26 25-125 [facility] CentennialLipase2019-02-21 14:32:00* Test Item Value Reference Range Interpretation Comments Lipase (test code = 3040-3) 30 8-78 [facility] CentennialAmylase Mixul0251-17-00 14:32:00* Test Item Value Reference Range Interpretation Comments Amylase Level (test code = 1798-8) -125 [facility] CentennialAmylase Rdrcb3281-23-34 14:32:00* Test Item Value Reference Range Interpretation Comments Amylase Level (test code = 1798-8) -125 [facility] CentennialAmylase Tizzh6662-40-56 14:32:00* Test Item Value Reference Range Interpretation Comments Amylase Level (test code = 1798-8) -125 [facility] CentennialAmylase Brxgh6782-46-31 14:32:00* Test Item Value Reference Range Interpretation Comments Amylase Level (test code = 1798-8) -125 [facility] CentennialCHEST SINGLE (PORTABLE)2018-04-10 14:29:[address] [address] Patient Name: ARANZA LOPEZ MR #: [id number] : 1970 Age/Sex: 47/M Req #: [id number] Adm Physician: Ordered by: BETTINA HERNÁNDEZ TIN ASSORTER Report #: [id number] Location: ER Room/Bed: Procedure: [id number] DX /CHEST SINGLE (PORTABLE) Exam Date: 04/10/18 [...] 2:32 PM Dictated By: JIA SAUCEDO MD Electronica ll Signed By: JIA SAUCEDO MD on 04/10/18 1432 Transcribed By: ADALBERTO on 1432 COPY TO: BETTINA HERNÁNDEZ TIN ASSORTER Urine [id number] 14:28:00* Test Item Value Reference Range Interpretation Comments Urine WBC (test code = 5821-4) 0-5 0-5 [facility] CentennialUrine SMM2660-77-92 14:28:00* Test Item Value Reference Range Interpretation Comments Urine RBC (test code = 34827-6) NONE 0-5 [facility] CentennialUrine Eubbzgun2295-84-21 14:28:00* Test Item Value Reference Range Interpretation Comments Urine Bacteria (test code = 36797-3) NONE NONE [facility] CentennialUrine Epithelial Bjznu7716-26-45 14:28:00 * Test Item Value Reference Range Interpretation Comments Urine Epithelial Cells (test code = 04093-2) NONE NONE [facility] CentennialProthrombin Flgt1510-91-09 14:21:00* Test Item Value Reference Range Interpretation Comments Prothrombin Time (test code = 5902-2) 13.0 11.9-14.5 [facility] CentennialProthromb Time International Ratio 2018-04-10 14:21:00* Test Item Value Reference Range Interpretation Comments Prothromb Time International Ratio (test code = 6301-6) 0.90 Oral Anticoagulant Therapy INR Values:1. Low Intensity Therapy 1.5 - 2.02 . Moderate Intensity Therapy 2.0 - 3.03. High Intensity Therapy(1) 2.5 - 3. 54. High Intensity Therapy(2) 3.0 - 4.05. Panic Value INR > 5.0 [facility]ennialActivated Partial Thromboplast Time 2018-04-10 14:21:00* Test Item Value Reference Range Interpretation Comments Activated Partial Thromboplast Time (test code = 70905-1) 30.7 23.8-35.5 [facility]ennialWhite Blood [id number] 14:19:00* Test Item Value Reference Range Interpretation Comments White Blood Count (test code = 6690-2) 6.31 4.8-10.8 [facility]ennialRed Blood [id number] 14:19:00* Test Item Value Reference Range Interpretation Comments Red Blood Count (test code = 789-8) 4.45 4.3-5.7 [facility]ennialHemoglobin2019-02-21 14:19:00* Test Item Value Reference Range Interpretation Comments Hemoglobin (test code = 64871-6) 13.6 14.0-18.0 L [facility]ennialHematocrit2019-02-21 14:19:00* Test Item Value Reference Range Interpretation Comments Hematocrit (test code = 4544-3) 40.6 38.2-49.6 [facility] CentennialMean Corpuscular Naglai6556-22-91 14:19:00* Test Item Value Reference Range Interpretation Comments Mean Corpuscular Volume (test code = 787-2) 91.2 81-99 [facility]ennialMean Corpuscular Pnvebbcpqj9769-76-47 14:19:00* Test Item Value Reference Range Interpretation Comments Mean Corpuscular Hemoglobin (test code = 785-6) 30.6 28-32 [facility]ennialMean Corpuscular Hemoglobin Concent 2018-04-10 14:19:00* Test Item Value Reference Range Interpretation Comments Mean Corpuscular Hemoglobin Concent (test code = 786-4) 33.5 31-35 [facility]ennialRed Cell Distribution [id number] 14:19:00* Test Item Value Reference Range Interpretation Comments Red Cell Distribution Width (test code = 99559-6) 13.7 11.7 -14.4 [facility] CentennialPlatelet Yzjlf6520-57-74 14:19:00* Test Item Value Reference Range Interpretation Comments Platelet Count (test code = 777-3) 226 140-360 [facility]ennialNeutrophils (%) (Auto)2018-04-10 14:19:00 * Test Item Value Reference Range Interpretation Comments Neutrophils (%) (Auto) (test code = 44907-0) 57.9 38.7-80.0 [facility] CentennialLymphocytes (%) (Auto)2018-04-10 14:19:00 * Test Item Value Reference Range Interpretation Comments Lymphocytes (%) (Auto) (test code = 736-9) 29.6 18.0-39.1 [facility]ennialMonocytes (%) (Auto)2018-04-10 14:19:00* Test Item Value Reference Range Interpretation Comments Monocytes (%) (Auto) (test code = 5905-5) 9.0 4.4-11.3 [facility]ennialEosinophils (%) (Auto)2018-04-10 14:19:00 * Test Item Value Reference Range Interpretation Comments Eosinophils (%) (Auto) (test code = 713-8) 2.2 0.0-6.0 [facility]ennialBasophils (%) (Auto)2018-04-10 14:19:00* Test Item Value Reference Range Interpretation Comments Basophils (%) (Auto) (test code = 706-2) 0.5 0.0-1.0 [facility] CentennialIM GRANULOCYTES %2018-04-10 14:19:00* Test Item Value Reference Range Interpretation Comments IM GRANULOCYTES % (test code = IM GRANULOCYTES %) 0.8 0.0- 1.0 [facility]ennialNeutrophils # (Auto)2018-04-10 14:19:00* Test Item Value Reference Range Interpretation Comments Neutrophils # (Auto) (test code = 751-8) 3.7 2.1-6.9 [facility] CentennialLymphocytes # (Auto)2018-04-10 14:19:00* Test Item Value Reference Range Interpretation Comments Lymphocytes # (Auto) (test code = 38530-7) 1.9 1.0-3.2 [facility]ennialMonocytes # (Auto)2018-04-10 14:19:00* Test Item Value Reference Range Interpretation Comments Monocytes # (Auto) (test code = 742-7) 0.6 0.2-0.8 [facility]ennialEosinophils # (Auto)2018-04-10 14:19:00* Test Item Value Reference Range Interpretation Comments Eosinophils # (Auto) (test code = 711-2) 0.1 0.0-0.4 [facility]ennialBasophils # (Auto)2018-04-10 14:19:00* Test Item Value Reference Range Interpretation Comments Basophils # (Auto) (test code = 704-7) 0.0 0.0-0.1 [facility] CentennialAbsolute Immature Granulocyte (auto 2018-04-10 14:19:00* Test Item Value Reference Range Interpretation Comments Absolute Immature Granulocyte (auto (shahram t code = Absolute Immature Granulocyte (auto) 0.05 0-0.1 [facility] CentennialUrine Hzpcz6992-33-84 14:19:00* Test Item Value Reference Range Interpretation Comments Urine Color (test code = 5778-6) YELLOW YELLOW [facility] CentennialUrine Rkiyeje0094-55-35 14:19:00* Test Item Value Reference Range Interpretation Comments Urine Clarity (test code = 17113-6) CLEAR CLEAR [facility] CentennialUrine Specific Ejwxquk2324-30-24 14:19:00 * Test Item Value Reference Range Interpretation Comments Urine Specific [place] (test code = 5811-5) 1.015 1.010-1.02 5 [facility] CentennialUrine [id number] 14:19:00* Test Item Value Reference Range Interpretation Comments Urine pH (test code = 10000-7) 6 5-7 [facility] CentennialUrine Leukocyte Rcrdmrhq0481-65-52 14:19:00* Test Item Value Reference Range Interpretation Comments Urine Leukocyte Esterase (test code = 5799-2) NEGATIVE NEGATIVE [facility] CentennialUrine Xnncdks6797-47-81 14:19:00* Test Item Value Reference Range Interpretation Comments Urine Nitrite (test code = 86505-8) NEGATIVE NEGATIVE [facility] CentennialUrine Yhhwtlp3449-13-91 14:19:00* Test Item Value Reference Range Interpretation Comments Urine Protein (test code = 5804-0) NEGATIVE NEGATIVE [facility] CentennialUrine Glucose (UA)2018-04-10 14:19:00* Test Item Value Reference Range Interpretation Comments Urine Glucose (UA) (test code = 2349-9) 1+ NEGATIVE H [facility] CentennialUrine Ivgboef5081-88-50 14:19:00* Test Item Value Reference Range Interpretation Comments Urine Ketones (test code = 78800-1) NEGATIVE NEGATIVE [facility]ennialUrine Pnwrfggptrbv7031-83-55 14:19:00* Test Item Value Reference Range Interpretation Comments Urine Urobilinogen (test code = 92188-7) 0.2 0.2-1 [facility]ennialUrine Fzqwrxxmp6151-06-56 14:19:00* Test Item Value Reference Range Interpretation Comments Urine Bilirubin (test code = 1978-6) NEGATIVE NEGATIVE [facility] CentennialUrine Ivcel5638-04-46 14:19:00* Test Item Value Reference Range Interpretation Comments Urine Blood (test code = 21780-2) NEGATIVE NEGATIVE [facility]- XR FOOT 2 VIEWS [id number] 14:37:00 FAX: Diego Mathis MD [phone] [place]: B St: ADM FAX: Blake Cazares MD [phone] Name: ARANZA LOPEZ [facility] : 1970 Age/S: 47/M [address] Unit #: [id number] Loc: V.[address] [place] [address] Phys: Diego Mathis MD Acct: [id number] Dis Date: Status: ADM IN PHONE #: [phone] Exam Date: 03/28/2018 1046 FAX #: [phone] Reason: FALL EXAMS: CPT CODE: [id number] XR FOOT 2 [place] [address] HISTORY: Fall and pain. COMPARISON: None available. 3 VIEWS OF THE LEFT HIP: No acute fracture or disl ocation. Pelvic ring is intact on a single view. Both hip joints are pre served. SI joints are preserved. Symphysis is well opposed. Trabecular pattern and mineralization are normal. There is no AVN. Soft tissues are normal. IMPRESSION: No acute fracture or disl ocation. Hip joint is preserved. No AVN. AP AND LA TERAL VIEW OF THE LEFT FOOT: No acute fracture or dislocation. 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 Narrow ed DIP and the PIP joint spaces. Hammertoes. Achilles enthesophyte. N o ankle joint fluid is noted. Mineralization and soft tissues are normal . IMPRESSION: No acute fracture or dislocati on. Mild joint space narrowing at the DIP and PIP level. El ectronically Signed by Jose Luis Martinez on 03/28/2018 at 1437 Reported and signed by: Oliver Martinez M.D. CC: Diego Mathis MD; Blake Cruz MD Technologist: Walter Orellana RT(R) Trnscrd Date/Time/By: 03/28/2018 (3307) : By: Sherron R.TH4 Orig Print D/T: S: 03/28/2018 (7117) PAG E 1 Signed Report - XR HIP W/PEL UNI 2+V [id number] 14:37:00 FAX: Diego Mathis MD [phone] [place]: St: ADM FAX: Blake Cazares MD [phone] Name: ARANZA LOPEZ [facility] : 1970 Age/S: 47/M [address] Unit #: [id number] Loc: V.2078 [place], [place] [address] Phys: Diego Mathis MD Acct: [id number] Dis Date: Status: ADM IN PHONE #: [phone] Exam Date: 03/28/2018 1355 FAX #: [phone] Reason: FALL EXAMS: CPT CODE: [id number] XR HIP W/PEL UNI 2+[place] [address] HISTORY: Fall and pain. COMPARISON: None available. 3 VIEWS OF THE LEFT HIP: No acute fracture or disl ocation. Pelvic ring is intact on a single view. Both hip joints are pre served. SI joints are preserved. Symphysis is well opposed. Trabecular pattern and mineralization are normal. There is no AVN. Soft tissues are normal. IMPRESSION: No acute fracture or disl ocation. Hip joint is preserved. No AVN. AP AND LA TERAL VIEW OF THE LEFT FOOT: No acute fracture or dislocation. 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 Narrow ed DIP and the PIP joint spaces. Hammertoes. Achilles enthesophyte. N o ankle joint fluid is noted. Mineralization and soft tissues are normal . IMPRESSION: No acute fracture or dislocati on. Mild joint space narrowing at the DIP and PIP level. El ectronically Signed by Jose Luis Martinez on 03/28/2018 at 1437 Reported and signed by: Oliver Martinez M.D. CC: Diego Mathis MD; Blake Cruz MD Technologist: Mana Salazar(R); [facility] DENT TECHNOLOGIST Trnscrd Date/Time/By: 03/28/2018 (1437) : By: Sherron ChenTH4 Orig Print D/T: S: 03/28/2018 (1605) PAG E 1 Signed Report HGBA1C 2018-03-28 09:05:00* Test Item Value Reference Range Interpretation Comments GLYCOSYLATED HEMOGLOBIN (HA1C) (test code = GLYHGB) 6.6 % HbA1 4. 8-6.0 H ESTIMATED AVERAGE GLUCOSE (test code = EAG) 143 MG/DL LIPID PROFILE (CORONARY RISK)2018-03-28 09:05:00* Test Item Value Reference Range Interpretation Comments TRIGLYCERIDES (test code = TRIG) 270 mg/dL 20-150 H CHOLESTEROL (test code = CHOL) 164 mg/dL 0-200 N CHOLESTEROL/HDL RATIO (test code = CHOLHDL) 6.0 RATIO 0-4.9 H RISK ASSOCIATED WITH CHOL/HDL RATIOS: Risk Male Female1/2 AVERAGE 3.43 3.27AVERAGE 4.97 4.442X AVERAGE 9.55 7.053X AVERAGE 23.39 11.04 REFERENCE VALUE IS RELATED TO RISK LEVELS ASRECOMMENDED BY THE [facility]. HEART, LUNG, AND BLOOD INST. HDL CHOLESTEROL (test code = HDL) 26 mg/dL 40-60 L LIPOPROTEIN LDL (test code = LDL) 108 mg/dL 100-129 N RN PERSONNEL, CONTACT PHYSICIAN IMMEDIATELY IF THIS IS A STROKE, AMI OR CAROTID STENOSIS PATIENT WHEN THE LDL >100 (1ST OCCURENCE, THIS ADMISSION) Reference Interval: mg/dL mmol/L Optimal <100 <2.6Near/above optimal 100-129 2.6- 3.3Borderline High 130-159 3.4-4.1High 160-189 4.1-4.9Very High >=190 >=4.9========= This LDL result is a direct measurement.========= [id number]-[id number] 06:56:00* Test Item Value Reference Range Interpretation Comments TROPONIN-I (test code = TROPI) <0.015 ng/mL 0-0.045 N COMMENTS TO BAG PRINTER: COLLECT 3 HOURS AFTER PREVIOUS [id number] 02:02:00* Test Item Value Reference Range Interpretation Comments TROPONIN-I (test code = TROPI) <0.015 ng/mL 0-0.045 N COMMENTS TO BAG PRINTER: COLLECT 3 HOURS AFTER PREVIOUS SAMPLEBASIC METABOLIC [id number] 18:34:00* Test Item Value Reference Range Interpretation Comments SODIUM (test code = NA) 138 mmol/L 136-145 N POTASSIUM (test code = K) 4.1 mmol/L 3.5-5.1 N CHLORIDE (test code = CL) 107.0 mmol/L 98-107 N CARBON DIOXIDE (test code = CO2) 23.0 mmol/L 21-32 N ANION GAP (test code = GAP) 12.1 10-20 N GLUCOSE (test code = GLU) 128 mg/dL 74-106 H BLOOD UREA NITROGEN (test code = BUN) 13 mg/dL 7-18 N GLOMERULAR FILTRATION RATE (test code = GFR) > 60 mL/min >=60 Estimated GFR by using Modified MDRD formula.Chronic kidney disease is defined as either kidney damageor GFR <60 mL/min/1.73 m2 for >3 months. CREATININE (test code = CREAT) 1.00 mg/dL 0.7-1.3 N BUN/CREATININE RATIO (test code = BUN/CREA) 12.5 10-20 N CALCIUM (test code = CA) 8.3 mg/dL 8.5-10.1 L HEPATIC FUNCTION [id number] 18:34:00* Test Item Value Reference Range Interpretation Comments TOTAL PROTEIN (test code = PROT) 6.7 gram/dL 6.4-8.2 N ALBUMIN (test code = ALB) 3.3 g/dL 3.4-5.0 L GLOBULIN (test code = GLOB) 3.4 gram/dL 2.7-4.2 N ALBUMIN/GLOBULIN RATIO (test code = A/G) 1.0 0.75-1.50 N BILIRUBIN TOTAL (test code = BILT) 0.40 mg/dL 0.0-1.0 N BILIRUBIN DIRECT (test code = BILD) < 0.05 mg/dL 0.0-0.20 N SGOT/AST (test code = AST) 52 IUnit/L 15-37 H SGPT/ALT (test code = ALT) 43 IUnit/L 12-78 N ALKALINE PHOSPHATASE TOTAL (test code = ALKP) 85 IUnit/L 45-117 N Note change in reference range due to change in reagent. [id number] 18:34:00* Test Item Value Reference Range Interpretation Comments TROPONIN-I (test code = TROPI) <0.015 ng/mL 0-0.045 N BASIC METABOLIC [id number] 18:25:00* Test Item Value Reference Range Interpretation Comments SODIUM (test code = NA) 138 mmol/L 136-145 N POTASSIUM (test code = K) 4.1 mmol/L 3.5-5.1 N CHLORIDE (test code = CL) 107.0 mmol/L 98-107 N CARBON DIOXIDE (test code = CO2) mmol/L 21-32 ANION GAP (test code = GAP) 10-20 GLUCOSE (test code = GLU) mg/dL 74-106 BLOOD UREA NITROGEN (test code = BUN) mg/dL 7-18 GLOMERULAR FILTRATION RATE (test code = GFR) mL/min >=60 CREATININE (test code = CREAT) mg/dL 0.7-1.3 BUN/CREATININE RATIO (test code = BUN/CREA) 10-20 CALCIUM (test code = CA) mg/dL 8.5-10.1 HEPATIC FUNCTION [id number] 18:25:00* Test Item Value Reference Range Interpretation Comments TOTAL PROTEIN (test code = PROT) gram/dL 6.4-8.2 ALBUMIN (test code = ALB) g/dL 3.4-5.0 GLOBULIN (test code = GLOB) gram/dL 2.7-4.2 ALBUMIN/GLOBULIN RATIO (test code = A/G) 0.75-1.50 BILIRUBIN TOTAL (test code = BILT) mg/dL 0.0-1.0 BILIRUBIN DIRECT (test code = BILD) mg/dL 0.0-0.20 SGOT/AST (test code = AST) IUnit/L 15-37 SGPT/ALT (test code = ALT) IUnit/L 12-78 ALKALINE PHOSPHATASE TOTAL (test code = ALKP) IUnit/L 45-117 [id number] 18:25:00* Test Item Value Reference Range Interpretation Comments TROPONIN-I (test code = TROPI) ng/mL 0-0.045 CBC W/AUTO [id number] 18:00:00* Test Item Value Reference Range Interpretation Comments WHITE BLOOD CELL (test code = WBC) K/mm3 4.5-12.5 RED BLOOD CELL (test code = RBC) mill/mm3 4.0-5.8 HEMOGLOBIN (test code = HGB) 13.4 gram/dL 13.0-17.5 N HEMATOCRIT (test code = HCT) % 42.0-52.0 MEAN CELL VOLUME (test code = MCV) fL 80-98 MEAN CELL HGB (test code = MCH) picogram 27.0-33.0 MEAN CELL HGB CONCETRATION (test code = MCHC) gram/dL 33.0-36. 0 RED CELL DISTRIBUTION WIDTH (test code = RDW) % 11.6-16. 2 RED CELL DISTRIBUTION WIDTH SD (test code = RDW-SD) fL 37 .0-51.0 PLATELET COUNT (test code = PLT) K/mm3 150-450 MEAN PLATELET VOLUME (test code = MPV) fL 6.7-11.0 NEUTROPHIL % (test code = NT%) % 39.0-69.0 IMMATURE GRANULOCYTE % (test code = IG%) % 0.0-5.0 LYMPHOCYTE % (test code = LY%) % 25.0-55.0 MONOCYTE % (test code = MO%) % 0.0-10.0 EOSINOPHIL % (test code = EO%) % 0.0-5.0 BASOPHIL % (test code = BA%) % 0.0-1.0 NEUTROPHIL # (test code = NT#) K/mm3 1.8-7.7 LYMPHOCYTE # (test code = LY#) K/mm3 1.0-5.0 MONOCYTE # (test code = MO#) K/mm3 0-0.8 EOSINOPHIL # (test code = EO#) K/mm3 0.0-0.5 BASOPHIL # (test code = BA#) K/mm3 0.0-0.2 CBC W/AUTO [id number] 18:00:00* Test Item Value Reference Range Interpretation Comments WHITE BLOOD CELL (test code = WBC) 6.3 K/mm3 4.5-12.5 N RED BLOOD CELL (test code = RBC) 4.35 mill/mm3 4.0-5.8 N HEMOGLOBIN (test code = HGB) 13.4 gram/dL 13.0-17.5 N HEMATOCRIT (test code = HCT) 40.8 % 42.0-52.0 L MEAN CELL VOLUME (test code = MCV) 93.8 fL 80-98 N MEAN CELL HGB (test code = MCH) 30.8 picogram 27.0-33.0 N MEAN CELL HGB CONCETRATION (test code = MCHC) 32.8 gram/dL 33.0-36. 0 L RED CELL DISTRIBUTION WIDTH (test code = RDW) 13.7 % 11.6-16. 2 N RED CELL DISTRIBUTION WIDTH SD (test code = RDW-SD) 46.5 fL 37 .0-51.0 N PLATELET COUNT (test code = PLT) 197 K/mm3 150-450 N MEAN PLATELET VOLUME (test code = MPV) 9.7 fL 6.7-11.0 N NEUTROPHIL % (test code = NT%) 62.9 % 39.0-69.0 N IMMATURE GRANULOCYTE % (test code = IG%) 0.8 % 0.0-5.0 N LYMPHOCYTE % (test code = LY%) 26.1 % 25.0-55.0 N MONOCYTE % (test code = MO%) 7.7 % 0.0-10.0 N EOSINOPHIL % (test code = EO%) 1.9 % 0.0-5.0 N BASOPHIL % (test code = BA%) 0.6 % 0.0-1.0 N NUCLEATED RBC % (test code = NRBC%) 0.0 % 0-0 N NEUTROPHIL # (test code = NT#) 3.93 K/mm3 1.8-7.7 N IMMATURE GRANULOCYTE # (test code = IG#) 0.05 x10 3/uL 0-0.03 H LYMPHOCYTE # (test code = LY#) 1.63 K/mm3 1.0-5.0 N MONOCYTE # (test code = MO#) 0.48 K/mm3 0-0.8 N EOSINOPHIL # (test code = EO#) 0.12 K/mm3 0.0-0.5 N BASOPHIL # (test code = BA#) 0.04 K/mm3 0.0-0.2 N NUCLEATED RBC # (test code = NRBC#) 0.00 K/mm3 0.0-0.1 N - XR CHEST 1 [id number] 17:24:00 FAX: Dacia Maurice [phone] [place]: B St: REG FAX: Blake Cazares MD [phone] Name: ARANZA LOPEZ [facility] : 1970 Age/S: 47/M [address] Unit #: [id number] Loc: [place] [address] Phys: Dacia Caceres MD Acct: [id number] Dis Date: Status: REG ER PHONE #: [phone] Exam Date: 03/27/2018 1710 FAX #: [phone] Reason: Altered Mental Status EXAMS: CPT CODE: [id number] XR CHEST 1 V 17970 REASON FOR EXAM: Altered Mental Status EXAM [...] by Jose Luis Barber on 03/27/2018 at 4189 Report ed and signed by: Alvin Barber M.D. CC: Dacia Caceres MD; Blake Cruz MD Technologist: ADAM ALEXANDER, RT(R) Trnscrd Date/Time/By: 03/27/2018 (7007) : By: Bigg Orig Print D/T: S: 03/27/2018 (8910) PAGE 1 Signed Report - CT HEAD/BRAIN W/O [id number] 17:13:00 Name: ARANZA LOPEZ [facility] : 1970 Age/S: 47 / M [address] Unit #: [id number] Loc: [place] [address] Phys: Dacia Caceres MD Acct: [id number] Dis Date: Status: PRE ER PHONE #: [phone] Exam Date: 03/27/2018 1701 FAX #: [phone] Reason: Altered Mental Status EXAMS: CPT CODE: [id number] CT HEAD/BRAIN W/O CONT 13686 REASON FOR EXAM: Altered Mental Status EXAM ORDER DATE: 03/27/2018 4:51 PM Ordering MCelena: Dacia Caceres MD PROCEDURE: - CT HEAD/BRAIN [...] Dacia Caceres MD; Blake Cruz MD Technologist:HAWA GALINDO RT(R) CT CTDI: DLP: Trnscb Date/Time: 03/27/2018 (1713) t.SDR.VTL Orig Print D/T: S: 03/27/2018 (1717) CTDI: DLP: PAGE 1 Signed Report Bedside [id number] 11:23:00 * Test Item Value Reference Range Interpretation Comments Bedside Glucose (test code = 65191-0) 145 70-120 H Meter ID: [id number] [facility] Glucose 2018-02-13 11:23:00* Test Item Value Reference Range Interpretation Comments Bedside Glucose (test code = 71204-2) 145 70-120 H Meter ID: [id number] [facility] Glucose 2018-02-13 11:23:00* Test Item Value Reference Range Interpretation Comments Bedside Glucose (test code = 55083-1) 145 70-120 H Meter ID: [id number] Hospitalodium Level 2018-02-12 10:49:00* Test Item Value Reference Range Interpretation Comments Sodium Level (test code = 2951-2) 137 136-145 [facility]ennialPotassium [id number] 10:49:00* Test Item Value Reference Range Interpretation Comments Potassium Level (test code = 2823-3) 3.7 3.5-5.1 [facility]ennialChloride [id number] 10:49:00* Test Item Value Reference Range Interpretation Comments Chloride Level (test code = 2075-0) 100 98-107 [facility] CentennialCarbon Dioxide [id number] 10:49:00* Test Item Value Reference Range Interpretation Comments Carbon Dioxide Level (test code = 2028-9) 27 22-29 [facility] CentennialAnion [id number] 10:49:00* Test Item Value Reference Range Interpretation Comments Anion Gap (test code = 22008-9) 13.7 8-16 [facility] CentennialBlood Urea [id number] 10:49:00* Test Item Value Reference Range Interpretation Comments Blood Urea Nitrogen (test code = 3094-0) 19 7-26 [facility]ennialCreatinine2018-12-26 10:49:00* Test Item Value Reference Range Interpretation Comments Creatinine (test code = 2160-0) 1.39 0.72-1.25 H [facility] CentennialBUN/Creatinine [id number] 10:49:00* Test Item Value Reference Range Interpretation Comments BUN/Creatinine Ratio (test code = 3097-3) 14 6-25 [facility] CentennialEstimat Glomerular Filtration Rate 2018-02-12 10:49:00* Test Item Value Reference Range Interpretation Comments Estimat Glomerular Filtration Rate (test code = 333692189) 55 >60 L Ranges were taken from the National Kidney Disease Education Program and the [facility] Foundation literature.Reference ranges:60 or greater: Tofkfb52-59 ( for 3 consecutive months): Chronic kidney disease 15 or less: Kidney failureBaylor Scott & [facility] Center – CentennialGlucose [id number] 10:49:00* Test Item Value Reference Range Interpretation Comments Glucose Level (test code = UTB0296) 166 74-118 H [facility] CentennialCalcium Xoeuv3363-04-61 10:49:00* Test Item Value Reference Range Interpretation Comments Calcium Level (test code = 80708-8) 9.3 8.4-10.2 [facility]ennialWhite Blood [id number] 10:31:00* Test Item Value Reference Range Interpretation Comments White Blood Count (test code = 6690-2) 5.68 4.8-10.8 [facility] CentennialRed Blood [id number] 10:31:00* Test Item Value Reference Range Interpretation Comments Red Blood Count (test code = 789-8) 4.52 4.3-5.7 [facility] CentennialHemoglobin2018-12-26 10:31:00* Test Item Value Reference Range Interpretation Comments Hemoglobin (test code = 52760-1) 14.2 14.0-18.0 [facility] CentennialHematocrit2018-12-26 10:31:00* Test Item Value Reference Range Interpretation Comments Hematocrit (test code = 4544-3) 41.4 38.2-49.6 [facility] CentennialMean Corpuscular Thomfr1810-81-11 10:31:00* Test Item Value Reference Range Interpretation Comments Mean Corpuscular Volume (test code = 787-2) 91.6 81-99 [facility] CentennialMean Corpuscular Wvfdixsnrx6524-15-08 10:31:00* Test Item Value Reference Range Interpretation Comments Mean Corpuscular Hemoglobin (test code = 785-6) 31.4 28-32 [facility] Corpuscular Hemoglobin Concent 2018-02-12 10:31:00* Test Item Value Reference Range Interpretation Comments Mean Corpuscular Hemoglobin Concent (test code = 786-4) 34.3 31-35 [facility] CentennialRed Cell Distribution [id number] 10:31:00* Test Item Value Reference Range Interpretation Comments Red Cell Distribution Width (test code = 39004-9) 13.4 11.7 -14.4 [facility] CentennialPlatelet [id number] 10:31:00* Test Item Value Reference Range Interpretation Comments Platelet Count (test code = 777-3) 196 140-360 [facility] CentennialNeutrophils (%) (Auto)2018-02-12 10:31:00 * Test Item Value Reference Range Interpretation Comments Neutrophils (%) (Auto) (test code = 53189-7) 62.2 38.7-80.0 [facility] CentennialLymphocytes (%) (Auto)2018-02-12 10:31:00 * Test Item Value Reference Range Interpretation Comments Lymphocytes (%) (Auto) (test code = 736-9) 28.5 18.0-39.1 [facility]ennialMonocytes (%) (Auto)2018-02-12 10:31:00* Test Item Value Reference Range Interpretation Comments Monocytes (%) (Auto) (test code = 5905-5) 6.7 4.4-11.3 [facility]ennialEosinophils (%) (Auto)2018-02-12 10:31:00 * Test Item Value Reference Range Interpretation Comments Eosinophils (%) (Auto) (test code = 713-8) 1.6 0.0-6.0 [facility]ennialBasophils (%) (Auto)2018-02-12 10:31:00* Test Item Value Reference Range Interpretation Comments Basophils (%) (Auto) (test code = 706-2) 0.5 0.0-1.0 [facility]ennialIM GRANULOCYTES %2018-02-12 10:31:00* Test Item Value Reference Range Interpretation Comments IM GRANULOCYTES % (test code = IM GRANULOCYTES %) 0.5 0.0- 1.0 [facility]ennialNeutrophils # (Auto)2018-02-12 10:31:00* Test Item Value Reference Range Interpretation Comments Neutrophils # (Auto) (test code = 751-8) 3.5 2.1-6.9 [facility]ennialLymphocytes # (Auto)2018-02-12 10:31:00* Test Item Value Reference Range Interpretation Comments Lymphocytes # (Auto) (test code = 23132-6) 1.6 1.0-3.2 [facility]ennialMonocytes # (Auto)2018-02-12 10:31:00* Test Item Value Reference Range Interpretation Comments Monocytes # (Auto) (test code = 742-7) 0.4 0.2-0.8 [facility]ennialEosinophils # (Auto)2018-02-12 10:31:00* Test Item Value Reference Range Interpretation Comments Eosinophils # (Auto) (test code = 711-2) 0.1 0.0-0.4 [facility]ennialBasophils # (Auto)2018-02-12 10:31:00* Test Item Value Reference Range Interpretation Comments Basophils # (Auto) (test code = 704-7) 0.0 0.0-0.1 [facility] CentennialAbsolute Immature Granulocyte (auto 2018-02-12 10:31:00* Test Item Value Reference Range Interpretation Comments Absolute Immature Granulocyte (auto (shahram t code = Absolute Immature Granulocyte (auto) 0.03 0-0.1 [facility] CentennialCT BRAIN EY2599-50-52 19:31:00 [facility] [address] [place] [address] Patient Name: ARANZA LOPEZ MR #: [id number] : 1970 Age/Sex: 47/M Req #: [id number] Adm Physician: DEXTER DILL MD Ordered by: JAMES JONES M.D. Report #: [id number] Location: [facility] Room/Bed: [place] Procedure: [id number] CT/CT BRAIN WO Exam Date: 02/10/18 Exam [...] on 02/10/181935 COPY TO: JAMES JONES MD Creatine Kinase MR2199-04-52 06:25:00* Test Item Value Reference Range Interpretation Comments Creatine Kinase MB (test code = 53475-8) 2.30 0-5.0 [facility]ennialTroponin S3155-65-72 06:25:00* Test Item Value Reference Range Interpretation Comments Troponin I (test code = YME6408) 0.117 0-0.300 [facility]ennialCreatine Lsyxtl4036-45-82 06:17:00* Test Item Value Reference Range Interpretation Comments Creatine Kinase (test code = 2157-6) 339 30-200 H [facility]2018-12-23 06:55:00* Test Item Value Reference Range Interpretation Comments Magnesium Level (test code = 20983-8) 1.8 1.3-2.1 [facility]2018-12-23 06:55:00* Test Item Value Reference Range Interpretation Comments Magnesium Level (test code = 22022-8) 1.8 1.3-2.1 [facility]2018-12-23 06:55:00* Test Item Value Reference Range Interpretation Comments Magnesium Level (test code = 99907-5) 1.8 1.3-2.1 [facility]2018-12-23 06:55:00* Test Item Value Reference Range Interpretation Comments Magnesium Level (test code = 78932-7) 1.8 1.3-2.1 [facility]ennialCT BRAIN [id number] 05:03:00 [place] [address] Patient Name: ARANZA LOPEZ MR #: [id number] : 1970 Age/Sex: 47/M Req #: [id number] Adm Physician: Ordered by: ORACIO STARR MD Report #: [id number] Location: ER Room/Bed: Procedure: [id number] CT/C T BRAIN WO Exam Date: 02/09/18 Exam Time: 033 REPORT STATUS: Signed EXAMINATION: He ad CT [...] PY TO: ORACIO STARR MD CT CHEST [id number] 04:38:00 [place] [address] Patient Name: ARANZA LOPEZ MR #: [id number] : 1970 Age/Sex: 47/M Req #: [id number] Adm Physician: Ordered by: ORACIO STARR MD Report #: [id number] Location: Room/Bed: Procedure: [id number] CT/C T CHEST W Exam Date: 02/09/18 [...] STARR MD CHEST SINGLE (PORTABLE) 2018-02-09 04:36:00 [place] [address] Patient Name: ARANZA LOEPZ MR #: [id number] : 1970 Age/Sex: 47/M Req #: [id number] Adm Physician: Ordered by: ORACIO STARR MD Report #: [id number] Location: ER Room/Bed: Procedure: [id number] DX/C HEST SINGLE (PORTABLE) Exam Date: 02/09/18 Exam Time : 349 REPORT STATUS: Signed MARIA DE JESUS ST [...] 0 438 Transcribed By: ADALBERTO on 02/09/18 5427 COPY TO: ORACIO STARR Urine Gljhg2811-89-31 03:53:00* Test Item Value Reference Range Interpretation Comments Urine Color (test code = 5778-6) YELLOW YELLOW [facility] CentennialUrine Kaqizqa0867-68-60 03:53:00* Test Item Value Reference Range Interpretation Comments Urine Clarity (test code = 88065-4) CLEAR CLEAR [facility] CentennialUrine Specific Gfvxjuw1718-53-70 03:53:00 * Test Item Value Reference Range Interpretation Comments Urine Specific [place] (test code = 5811-5) 1.015 1.010-1.02 5 [facility] CentennialUrine iX3304-53-93 03:53:00* Test Item Value Reference Range Interpretation Comments Urine pH (test code = 76794-7) 6 5-7 [facility]ennialUrine Leukocyte Eidbdxhm8107-08-40 03:53:00* Test Item Value Reference Range Interpretation Comments Urine Leukocyte Esterase (test code = 5799-2) 1+ NEGATIVE H [facility]ennialUrine Wetjsqa7559-92-37 03:53:00* Test Item Value Reference Range Interpretation Comments Urine Nitrite (test code = 48273-5) NEGATIVE NEGATIVE [facility]ennialUrine Mziivow2579-47-65 03:53:00* Test Item Value Reference Range Interpretation Comments Urine Protein (test code = 5804-0) NEGATIVE NEGATIVE [facility]ennialUrine Glucose (UA)2018-02-09 03:53:00* Test Item Value Reference Range Interpretation Comments Urine Glucose (UA) (test code = 2349-9) NEGATIVE NEGATIVE [facility]ennialUrine Aqojueh0663-98-81 03:53:00* Test Item Value Reference Range Interpretation Comments Urine Ketones (test code = 95710-8) NEGATIVE NEGATIVE [facility]ennialU[facility] Opiates Qjqect4478-98-83 03:53:00* Test Item Value Reference Range Interpretation Comments Urine Opiates Screen (test code = 89923-1) NEGATIVE NEGATIVE ALL TESTS PERFORMED MANUALLY ON Kimeltu TOX/SEE TEST POSITIVE TCA [facility]ennialUrine Barbiturates Uwqurq6850-69-78 03:53:00 * Test Item Value Reference Range Interpretation Comments Urine Barbiturates Screen (test code = 657779351) NEGATIVE NEGA TIVE [facility]ennialU[facility] Phencyclidine Mcjywc8364-54-73 03:53:00* Test Item Value Reference Range Interpretation Comments Urine Phencyclidine Screen (test code = 73845-3) NEGATIVE NEGAT DEVONTE [facility]ennialU[facility] Amphetamines Wwndtg4493-41-15 03:53:00* Test Item Value Reference Range Interpretation Comments Urine Amphetamines Screen (test code = 72249-2) NEGATIVE NEGATI VE [facility]ennialU[facility] Methamphetamines Yfnrkc7979-03-31 03:53:00* Test Item Value Reference Range Interpretation Comments Urine Methamphetamines Screen (test code = Urine Metha mphetamines Screen) NEGATIVE NEGATIVE [facility] Benzodiazepines Utukzi8518-49-47 03:53:00* Test Item Value Reference Range Interpretation Comments Urine Benzodiazepines Screen (test code = 21438-9) NEGATIVE NEG ATIVE [facility]ennialU[facility] Cocaine Teddrp5478-43-27 03:53:00* Test Item Value Reference Range Interpretation Comments Urine Cocaine Screen (test code = 3398-5) NEGATIVE NEGATIVE [facility] Cannabinoids Jgnpzh1440-76-13 03:53:00* Test Item Value Reference Range Interpretation Comments Urine Cannabinoids Screen (test code = 91158-4) NEGATIVE NEGATI VE THESE RESULTS ARE FOR MEDICAL TREATMENT ONLYTHIS REPORT CONTAINS UNCONFIR MED SCREENING RESULTS*POSITIVE RESULTS WILL BE CONFIRMED BY REFERENCE LAB UPON R EQUEST CUT-OFFDRUG CLASS CONCENTRATION ng/mLAmphetamines 1000Methamphetamines 1000Cocaine 300Opiate 300Phencyc lidine 25Cannabinoid 50Barbiturates 300Benzodiazepine 300Methadone 300[facility] Methadone Bbagks4787-83-85 03:53:00* Test Item Value Reference Range Interpretation Comments Urine Methadone Screen (test code = 11480-0) NEGATIVE NEGATIVE THESE RESULTS ARE FOR MEDICAL TREATMENT ONLYTHIS REPORT CONTAINS UNCONFIR MED SCREENING RESULTS*POSITIVE RESULTS WILL BE CONFIRMED BY REFERENCE LAB UPON R EQUEST CUT-OFFDRUG CLASS CONCENTRATION ng/mLAmphetamines 1000Methamphetamines 1000Cocaine Metabolite 300Opiate 300Phencyc lidine 25Cannabinoid 50Barbiturates 300Benzodiazepine 300Methadone 300[facility]Urine Scccmlosfomy5478-44-34 03:53:00* Test Item Value Reference Range Interpretation Comments Urine Urobilinogen (test code = 20997-2) 0.2 0.2-1 [facility]ennialU[facility] Zinihbyfs5803-41-60 03:53:00* Test Item Value Reference Range Interpretation Comments Urine Bilirubin (test code = 1978-6) NEGATIVE NEGATIVE [facility]ennialU[facility] Osbdx1625-47-61 03:53:00* Test Item Value Reference Range Interpretation Comments Urine Blood (test code = 21979-9) NEGATIVE NEGATIVE [facility]ennialU[facility] XJJ2050-78-64 03:53:00* Test Item Value Reference Range Interpretation Comments Urine WBC (test code = 5821-4) 6-10 0-5 H [facility]ennialUrine GHO1962-24-11 03:53:00* Test Item Value Reference Range Interpretation Comments Urine RBC (test code = 87572-3) 0-5 0-5 [facility] Pheprftl1978-34-03 03:53:00* Test Item Value Reference Range Interpretation Comments Urine Bacteria (test code = 10894-0) RARE NONE [facility]ennialU[facility] Epithelial Stoey4426-04-47 03:53:00 * Test Item Value Reference Range Interpretation Comments Urine Epithelial Cells (test code = 63019-5) RARE NONE [facility]ennialU[facility] Ktwjc8829-13-94 03:53:00* Test Item Value Reference Range Interpretation Comments Urine Color (test code = 5778-6) YELLOW YELLOW [facility]ennialU[facility] Scadibl8472-60-45 03:53:00* Test Item Value Reference Range Interpretation Comments Urine Clarity (test code = 16291-2) CLEAR CLEAR [facility]ennialU[facility] Specific Uphaeut0932-03-02 03:53:00 * Test Item Value Reference Range Interpretation Comments Urine Specific [place] (test code = 5811-5) 1.015 1.010-1.02 5 [facility] hS1445-61-88 03:53:00* Test Item Value Reference Range Interpretation Comments Urine pH (test code = 73118-2) 6 5-7 [facility] Leukocyte Gqmmhdxd1634-53-94 03:53:00* Test Item Value Reference Range Interpretation Comments Urine Leukocyte Esterase (test code = 5799-2) 1+ NEGATIVE H [facility]ennialUrine Paxfitp6398-41-77 03:53:00* Test Item Value Reference Range Interpretation Comments Urine Nitrite (test code = 32004-1) NEGATIVE NEGATIVE [facility]ennialU[facility] Vttfqtq6250-59-38 03:53:00* Test Item Value Reference Range Interpretation Comments Urine Protein (test code = 5804-0) NEGATIVE NEGATIVE [facility]ennialU[facility] Glucose (UA)2018-02-09 03:53:00* Test Item Value Reference Range Interpretation Comments Urine Glucose (UA) (test code = 2349-9) NEGATIVE NEGATIVE [facility] Lgzfyht8608-35-29 03:53:00* Test Item Value Reference Range Interpretation Comments Urine Ketones (test code = 22749-6) NEGATIVE NEGATIVE [facility]ennialU[facility] Opiates Qxtzyp1860-95-33 03:53:00* Test Item Value Reference Range Interpretation Comments Urine Opiates Screen (test code = 52912-2) NEGATIVE NEGATIVE ALL TESTS PERFORMED MANUALLY ON Kimeltu TOX/SEE TEST POSITIVE TCA [facility] Barbiturates Bqtpla6032-66-86 03:53:00 * Test Item Value Reference Range Interpretation Comments Urine Barbiturates Screen (test code = 286929350) NEGATIVE NEGA TIVE [facility]ennialU[facility] Phencyclidine Aawqxl8252-90-60 03:53:00* Test Item Value Reference Range Interpretation Comments Urine Phencyclidine Screen (test code = 73438-9) NEGATIVE NEGAT DEVONTE [facility]ennialU[facility] Amphetamines Szfhsm9513-70-94 03:53:00* Test Item Value Reference Range Interpretation Comments Urine Amphetamines Screen (test code = 16698-7) NEGATIVE NEGATI VE [facility] Methamphetamines Sxducz3787-15-15 03:53:00* Test Item Value Reference Range Interpretation Comments Urine Methamphetamines Screen (test code = Urine Metha mphetamines Screen) NEGATIVE NEGATIVE [facility] Benzodiazepines Zwskij9564-71-28 03:53:00* Test Item Value Reference Range Interpretation Comments Urine Benzodiazepines Screen (test code = 23584-1) NEGATIVE NEG ATIVE [facility]ennialU[facility] Cocaine Fxylsd8595-81-78 03:53:00* Test Item Value Reference Range Interpretation Comments Urine Cocaine Screen (test code = 3398-5) NEGATIVE NEGATIVE [facility] Cannabinoids Dgzihz9766-51-31 03:53:00* Test Item Value Reference Range Interpretation Comments Urine Cannabinoids Screen (test code = 76441-3) NEGATIVE NEGATI VE THESE RESULTS ARE FOR MEDICAL TREATMENT ONLYTHIS REPORT CONTAINS UNCONFIR MED SCREENING RESULTS*POSITIVE RESULTS WILL BE CONFIRMED BY REFERENCE LAB UPON R EQUEST CUT-OFFDRUG CLASS CONCENTRATION ng/mLAmphetamines 1000Methamphetamines 1000Cocaine 300Opiate 300Phencyc lidine 25Cannabinoid 50Barbiturates 300Benzodiazepine 300Methadone 300[facility]ennialUrine Methadone Vbgnxo4412-32-62 03:53:00* Test Item Value Reference Range Interpretation Comments Urine Methadone Screen (test code = 23170-6) NEGATIVE NEGATIVE THESE RESULTS ARE FOR MEDICAL TREATMENT ONLYTHIS REPORT CONTAINS UNCONFIR MED SCREENING RESULTS*POSITIVE RESULTS WILL BE CONFIRMED BY REFERENCE LAB UPON R EQUEST CUT-OFFDRUG CLASS CONCENTRATION ng/mLAmphetamines 1000Methamphetamines 1000Cocaine Metabolite 300Opiate 300Phencyc lidine 25Cannabinoid 50Barbiturates 300Benzodiazepine 300Methadone 300[facility]ennialUrine Rvbuqtapmvhc7623-86-48 03:53:00* Test Item Value Reference Range Interpretation Comments Urine Urobilinogen (test code = 97541-8) 0.2 0.2-1 [facility] Jpqdrfxlk2186-34-96 03:53:00* Test Item Value Reference Range Interpretation Comments Urine Bilirubin (test code = 1978-6) NEGATIVE NEGATIVE [facility]ennialU[facility] Uuubl6006-06-57 03:53:00* Test Item Value Reference Range Interpretation Comments Urine Blood (test code = 89132-3) NEGATIVE NEGATIVE [facility]ennialU[facility] BXO5248-91-02 03:53:00* Test Item Value Reference Range Interpretation Comments Urine WBC (test code = 5821-4) 6-10 0-5 H [facility]ennialU[facility] XFO8337-05-30 03:53:00* Test Item Value Reference Range Interpretation Comments Urine RBC (test code = 82782-9) 0-5 0-5 [facility]ennialU[facility] Vcqegctc5894-62-30 03:53:00* Test Item Value Reference Range Interpretation Comments Urine Bacteria (test code = 88179-0) RARE NONE [facility]ennialU[facility] Epithelial Ndatq8368-36-36 03:53:00 * Test Item Value Reference Range Interpretation Comments Urine Epithelial Cells (test code = 38385-9) RARE NONE [facility]ennialU[facility] Opiates Tlhnkb1173-86-61 03:53:00* Test Item Value Reference Range Interpretation Comments Urine Opiates Screen (test code = 57612-9) NEGATIVE NEGATIVE ALL TESTS PERFORMED MANUALLY ON Kimeltu TOX/SEE TEST POSITIVE TCA [facility]ennialU[facility] Barbiturates Kkrqdt6398-92-79 03:53:00 * Test Item Value Reference Range Interpretation Comments Urine Barbiturates Screen (test code = 051414097) NEGATIVE NEGA TIVE [facility]ennialU[facility] Phencyclidine Cynekv0470-59-16 03:53:00* Test Item Value Reference Range Interpretation Comments Urine Phencyclidine Screen (test code = 03391-8) NEGATIVE NEGAT DEVONTE [facility]ennialU[facility] Amphetamines Djjhoz4759-45-40 03:53:00* Test Item Value Reference Range Interpretation Comments Urine Amphetamines Screen (test code = 97479-6) NEGATIVE NEGATI VE [facility]ennialU[facility] Methamphetamines Acfxzp2413-96-76 03:53:00* Test Item Value Reference Range Interpretation Comments Urine Methamphetamines Screen (test code = Urine Metha mphetamines Screen) NEGATIVE NEGATIVE [facility]ennialU[facility] Benzodiazepines Rqofbk0329-13-48 03:53:00* Test Item Value Reference Range Interpretation Comments Urine Benzodiazepines Screen (test code = 51880-6) NEGATIVE NEG ATIVE [facility]ennialU[facility] Cocaine Eovhuq8861-72-62 03:53:00* Test Item Value Reference Range Interpretation Comments Urine Cocaine Screen (test code = 3398-5) NEGATIVE NEGATIVE [facility]ennial[facility] Cannabinoids Yniuqi1333-63-95 03:53:00* Test Item Value Reference Range Interpretation Comments Urine Cannabinoids Screen (test code = 04273-2) NEGATIVE NEGATI VE THESE RESULTS ARE FOR MEDICAL TREATMENT ONLYTHIS REPORT CONTAINS UNCONFIR MED SCREENING RESULTS*POSITIVE RESULTS WILL BE CONFIRMED BY REFERENCE LAB UPON R EQUEST CUT-OFFDRUG CLASS CONCENTRATION ng/mLAmphetamines 1000Methamphetamines 1000Cocaine 300Opiate 300Phencyc lidine 25Cannabinoid 50Barbiturates 300Benzodiazepine 300Methadone 300[facility] SouthU[facility] Methadone Jjabic6325-24-05 03:53:00* Test Item Value Reference Range Interpretation Comments Urine Methadone Screen (test code = 54896-4) NEGATIVE NEGATIVE THESE RESULTS ARE FOR MEDICAL TREATMENT ONLYTHIS REPORT CONTAINS UNCONFIR MED SCREENING RESULTS*POSITIVE RESULTS WILL BE CONFIRMED BY REFERENCE LAB UPON R EQUEST CUT-OFFDRUG CLASS CONCENTRATION ng/mLAmphetamines 1000Methamphetamines 1000Cocaine Metabolite 300Opiate 300Phencyc lidine 25Cannabinoid 50Barbiturates 300Benzodiazepine 300Methadone 300[facility]odium Quydb8445-93-38 02:58:00* Test Item Value Reference Range Interpretation Comments Sodium Level (test code = 2951-2) 137 136-145 [facility]ennialPotassium Lggby4525-94-93 02:58:00* Test Item Value Reference Range Interpretation Comments Potassium Level (test code = 2823-3) 2.4 3.5-5.1 LL Results called to MP LILLY RN at 0257 on 02/09/18 by Jennifer Copeland. RB [place]. [facility] CentennialChloride Xitir0807-95-70 02:58:00* Test Item Value Reference Range Interpretation Comments Chloride Level (test code = 2075-0) 99 98-107 [facility] CentennialCarbon Dioxide Npiqx1153-73-65 02:58:00* Test Item Value Reference Range Interpretation Comments Carbon Dioxide Level (test code = 2028-9) 23 22-29 [facility] CentennialAnion Oup3365-17-09 02:58:00* Test Item Value Reference Range Interpretation Comments Anion Gap (test code = 23692-8) 17.4 8-16 H [facility] CentennialBlood Urea Leykoepj6056-10-36 02:58:00* Test Item Value Reference Range Interpretation Comments Blood Urea Nitrogen (test code = 3094-0) 17 7-26 [facility] CentennialCreatinine2018-12-23 02:58:00* Test Item Value Reference Range Interpretation Comments Creatinine (test code = 2160-0) 1.51 0.72-1.25 H [facility] CentennialBUN/Creatinine Glipk3050-89-97 02:58:00* Test Item Value Reference Range Interpretation Comments BUN/Creatinine Ratio (test code = 3097-3) 11 6-25 [facility] CentennialEstimat Glomerular Filtration Rate 2018-02-09 02:58:00* Test Item Value Reference Range Interpretation Comments Estimat Glomerular Filtration Rate (test code = 276823616) 50 >60 L Ranges were taken from the National Kidney Disease Education Program and the [facility] [facility] Foundation literature.Reference ranges:60 or greater: Okuwjh00-50 ( for 3 consecutive months): Chronic kidney disease 15 or less: Kidney failureBaylor Scott & [facility] – CentennialGlucose Nxcbr8350-96-27 02:58:00* Test Item Value Reference Range Interpretation Comments Glucose Level (test code = MOY2346) 189 74-118 H [facility] CentennialCalcium Udvba1519-28-53 02:58:00* Test Item Value Reference Range Interpretation Comments Calcium Level (test code = 59164-1) 8.9 8.4-10.2 [facility] CentennialTotal Ntufvurtf8869-03-23 02:58:00* Test Item Value Reference Range Interpretation Comments Total Bilirubin (test code = 1975-2) 0.6 0.2-1.2 [facility] CentennialAspartate Amino Transf (AST/SGOT) 2018-02-09 02:58:00* Test Item Value Reference Range Interpretation Comments Aspartate Amino Transf (AST/SGOT) (test code = Aspartate Amino Transf (AST/SGOT)) 24 5-34 [facility] CentennialAlanine Aminotransferase (ALT/SGPT) 2018-02-09 02:58:00* Test Item Value Reference Range Interpretation Comments Alanine Aminotransferase (ALT/SGPT) (test code = 1742-6) 30 0-55 [facility] CentennialTotal Znnfbeg8265-64-59 02:58:00* Test Item Value Reference Range Interpretation Comments Total Protein (test code = 2885-2) 6.9 6.5-8.1 [facility] CentennialAlbumin2018-12-23 02:58:00* Test Item Value Reference Range Interpretation Comments Albumin (test code = 1751-7) 4.1 3.5-5.0 [facility] CentennialGlobulin2018-12-23 02:58:00* Test Item Value Reference Range Interpretation Comments Globulin (test code = 80697-1) 2.8 2.3-3.5 [facility] CentennialAlbumin/Globulin Vovtf6934-99-81 02:58:00 * Test Item Value Reference Range Interpretation Comments Albumin/Globulin Ratio (test code = 1759-0) 1.5 0.8-2.0 [facility] CentennialAlkaline Zophpvnlwhj4783-25-59 02:58:00* Test Item Value Reference Range Interpretation Comments Alkaline Phosphatase (test code = 6768-6) 74 40-150 [facility] CentennialCreatine Vmvvyd8522-43-98 02:58:00* Test Item Value Reference Range Interpretation Comments Creatine Kinase (test code = 2157-6) 270 30-200 H [facility] CentennialCreatine Kinase OT9147-28-94 02:58:00* Test Item Value Reference Range Interpretation Comments Creatine Kinase MB (test code = 76398-7) 3.30 0-5.0 [facility] CentennialTroponin V1316-33-24 02:58:00* Test Item Value Reference Range Interpretation Comments Troponin I (test code = JAU6735) 0.141 0-0.300 [facility] CentennialTotal Trmbvoddg8814-88-25 02:58:00* Test Item Value Reference Range Interpretation Comments Total Bilirubin (test code = 1975-2) 0.6 0.2-1.2 [facility] CentennialAspartate Amino Transf (AST/SGOT) 2018-02-09 02:58:00* Test Item Value Reference Range Interpretation Comments Aspartate Amino Transf (AST/SGOT) (test code = Aspartate Amino Transf (AST/SGOT)) 24 5-34 [facility] CentennialAlanine Aminotransferase (ALT/SGPT) 2018-02-09 02:58:00* Test Item Value Reference Range Interpretation Comments Alanine Aminotransferase (ALT/SGPT) (test code = 1742-6) 30 0-55 [facility]ennialTotal [id number] 02:58:00* Test Item Value Reference Range Interpretation Comments Total Protein (test code = 2885-2) 6.9 6.5-8.1 [facility] CentennialAlbumin2018-12-23 02:58:00* Test Item Value Reference Range Interpretation Comments Albumin (test code = 1751-7) 4.1 3.5-5.0 [facility]ennialGlobulin2018-12-23 02:58:00* Test Item Value Reference Range Interpretation Comments Globulin (test code = 02840-1) 2.8 2.3-3.5 [facility]ennialAlbumin/Globulin Ftpbs9541-45-91 02:58:00 * Test Item Value Reference Range Interpretation Comments Albumin/Globulin Ratio (test code = 1759-0) 1.5 0.8-2.0 [facility]ennialAlkaline Pkshwvelnow7475-63-17 02:58:00* Test Item Value Reference Range Interpretation Comments Alkaline Phosphatase (test code = 6768-6) 74 40-150 [facility]ennialWhite Blood Lyuol3515-14-99 02:29:00* Test Item Value Reference Range Interpretation Comments White Blood Count (test code = 6690-2) 6.65 4.8-10.8 [facility] CentennialRed Blood Jagkk6607-26-73 02:29:00* Test Item Value Reference Range Interpretation Comments Red Blood Count (test code = 789-8) 4.41 4.3-5.7 [facility]ennialHemoglobin2018-12-23 02:29:00* Test Item Value Reference Range Interpretation Comments Hemoglobin (test code = 73915-4) 13.7 14.0-18.0 L [facility]ennialHematocrit2018-12-23 02:29:00* Test Item Value Reference Range Interpretation Comments Hematocrit (test code = 4544-3) 39.9 38.2-49.6 [facility]ennialMean Corpuscular Bttbxb7051-73-04 02:29:00* Test Item Value Reference Range Interpretation Comments Mean Corpuscular Volume (test code = 787-2) 90.5 81-99 [facility]ennialMean Corpuscular Stbcgvtebn7457-99-07 02:29:00* Test Item Value Reference Range Interpretation Comments Mean Corpuscular Hemoglobin (test code = 785-6) 31.1 28-32 [facility]ennialMean Corpuscular Hemoglobin Concent 2018-02-09 02:29:00* Test Item Value Reference Range Interpretation Comments Mean Corpuscular Hemoglobin Concent (test code = 786-4) 34.3 31-35 [facility]ennialRed Cell Distribution [id number] 02:29:00* Test Item Value Reference Range Interpretation Comments Red Cell Distribution Width (test code = 73858-0) 13.7 11.7 -14.4 [facility] CentennialPlatelet [id number] 02:29:00* Test Item Value Reference Range Interpretation Comments Platelet Count (test code = 777-3) 208 140-360 [facility] CentennialNeutrophils (%) (Auto)2018-02-09 02:29:00 * Test Item Value Reference Range Interpretation Comments Neutrophils (%) (Auto) (test code = 71446-9) 56.9 38.7-80.0 [facility]ennialLymphocytes (%) (Auto)2018-02-09 02:29:00 * Test Item Value Reference Range Interpretation Comments Lymphocytes (%) (Auto) (test code = 736-9) 34.9 18.0-39.1 [facility]ennialMonocytes (%) (Auto)2018-02-09 02:29:00* Test Item Value Reference Range Interpretation Comments Monocytes (%) (Auto) (test code = 5905-5) 5.7 4.4-11.3 [facility]ennialEosinophils (%) (Auto)2018-02-09 02:29:00 * Test Item Value Reference Range Interpretation Comments Eosinophils (%) (Auto) (test code = 713-8) 1.7 0.0-6.0 [facility]ennialBasophils (%) (Auto)2018-02-09 02:29:00* Test Item Value Reference Range Interpretation Comments Basophils (%) (Auto) (test code = 706-2) 0.3 0.0-1.0 [facility] CentennialIM GRANULOCYTES %2018-02-09 02:29:00* Test Item Value Reference Range Interpretation Comments IM GRANULOCYTES % (test code = IM GRANULOCYTES %) 0.5 0.0- 1.0 [facility]ennialNeutrophils # (Auto)2018-02-09 02:29:00* Test Item Value Reference Range Interpretation Comments Neutrophils # (Auto) (test code = 751-8) 3.8 2.1-6.9 [facility]ennialLymphocytes # (Auto)2018-02-09 02:29:00* Test Item Value Reference Range Interpretation Comments Lymphocytes # (Auto) (test code = 22904-0) 2.3 1.0-3.2 [facility]ennialMonocytes # (Auto)2018-02-09 02:29:00* Test Item Value Reference Range Interpretation Comments Monocytes # (Auto) (test code = 742-7) 0.4 0.2-0.8 [facility]ennialEosinophils # (Auto)2018-02-09 02:29:00* Test Item Value Reference Range Interpretation Comments Eosinophils # (Auto) (test code = 711-2) 0.1 0.0-0.4 [facility]ennialBasophils # (Auto)2018-02-09 02:29:00* Test Item Value Reference Range Interpretation Comments Basophils # (Auto) (test code = 704-7) 0.0 0.0-0.1 [facility] CentennialAbsolute Immature Granulocyte (auto 2018-02-09 02:29:00* Test Item Value Reference Range Interpretation Comments Absolute Immature Granulocyte (auto (shahram t code = Absolute Immature Granulocyte (auto) 0.03 0-0.1 [facility] Blood [id number] 02:02:00* Test Item Value Reference Range Interpretation Comments Venous Blood pH (test code = Venous Blood pH) 7.435 7.35-7.3 8 H [facility] Blood Partial Pressure CO2 2018-02-09 02:02:00* Test Item Value Reference Range Interpretation Comments Venous Blood Partial Pressure CO2 (test code = Venous Blood Partial Pressure CO2) 36.1 44-48 L [facility] Blood Partial Pressure O2 2018-02-09 02:02:00* Test Item Value Reference Range Interpretation Comments Venous Blood Partial Pressure O2 (test code = Venous B lood Partial Pressure O2) 37 40-41 L [facility] Blood [id number] 02:02:00* Test Item Value Reference Range Interpretation Comments Venous Blood HCO3 (test code = Venous Blood HCO3) 24.1 21-2 2 H [facility] Blood Total Carbon Dioxide 2018-02-09 02:02:00* Test Item Value Reference Range Interpretation Comments Venous Blood Total Carbon Dioxide (test code = Venous Blood Total Carbon Dioxide) 25 [facility] Blood Base [id number] 02:02:00* Test Item Value Reference Range Interpretation Comments Venous Blood Base Excess (test code = Venous Blood Base Excess) 0 [facility] Blood Oxygen Gdknyftyvb3604-59-22 02:02:00* Test Item Value Reference Range Interpretation Comments Venous Blood Oxygen Saturation (test code = Venous Blood Oxy gen Saturation) 73 [facility] CentennialFiO22018-12-23 02:02:00* Test Item Value Reference Range Interpretation Comments FiO2 (test code = FiO2) 21 PT ON RACHI [facility] Blood [id number] 02:02:00* Test Item Value Reference Range Interpretation Comments Venous Blood pH (test code = Venous Blood pH) 7.435 7.35-7.3 8 H [facility] Blood Partial Pressure CO2 2018-02-09 02:02:00* Test Item Value Reference Range Interpretation Comments Venous Blood Partial Pressure CO2 (test code = Venous Blood Partial Pressure CO2) 36.1 44-48 [facility] 2018-02-09 02:02:00* Test Item Value Reference Range Interpretation Comments Venous Blood Partial Pressure O2 (test code = Venous B lood Partial Pressure O2) 37 40-41 L [facility] Blood [id number] 02:02:00* Test Item Value Reference Range Interpretation Comments Venous Blood HCO3 (test code = Venous Blood HCO3) 24.1 21-2 2 H [facility] Blood Total Carbon Dioxide 2018-02-09 02:02:00* Test Item Value Reference Range Interpretation Comments Venous Blood Total Carbon Dioxide (test code = Venous Blood Total Carbon Dioxide) 25 [facility] Blood Base [id number] 02:02:00* Test Item Value Reference Range Interpretation Comments Venous Blood Base Excess (test code = Venous Blood Base Excess) 0 [facility] Blood Oxygen [id number] 02:02:00* Test Item Value Reference Range Interpretation Comments Venous Blood Oxygen Saturation (test code = Venous Blood Oxy gen Saturation) 73 [facility] CentennialFiO22018-12-23 02:02:00* Test Item Value Reference Range Interpretation Comments FiO2 (test code = FiO2) 21 PT ON RACHI [facility] Blood [id number] 02:02:00* Test Item Value Reference Range Interpretation Comments Venous Blood pH (test code = Venous Blood pH) 7.435 7.35-7.3 8 [facility] Partial Pressure CO2 2018-02-09 02:02:00* Test Item Value Reference Range Interpretation Comments Venous Blood Partial Pressure CO2 (test code = Venous Blood Partial Pressure CO2) 36.1 44-48 L [facility] Blood Partial Pressure O2 2018-02-09 02:02:00* Test Item Value Reference Range Interpretation Comments Venous Blood Partial Pressure O2 (test code = Venous B lood Partial Pressure O2) 37 40-41 L [facility] Blood [id number] 02:02:00* Test Item Value Reference Range Interpretation Comments Venous Blood HCO3 (test code = Venous Blood HCO3) 24.1 21-2 2 [facility] Total Carbon Dioxide 2018-02-09 02:02:00* Test Item Value Reference Range Interpretation Comments Venous Blood Total Carbon Dioxide (test code = Venous Blood Total Carbon Dioxide) 25 [facility] Blood Base [id number] 02:02:00* Test Item Value Reference Range Interpretation Comments Venous Blood Base Excess (test code = Venous Blood Base Excess) 0 [facility] Oxygen Knikvgnbaq5392-73-36 02:02:00* Test Item Value Reference Range Interpretation Comments Venous Blood Oxygen Saturation (test code = Venous Blood Oxy gen Saturation) 73 [facility]ennialFiO22018-12-23 02:02:00* Test Item Value Reference Range Interpretation Comments FiO2 (test code = FiO2) 21 PT ON RACHI [facility] Blood [id number] 02:02:00* Test Item Value Reference Range Interpretation Comments Venous Blood pH (test code = Venous Blood pH) 7.435 7.35-7.3 8 [facility] Partial Pressure CO2 2018-02-09 02:02:00* Test Item Value Reference Range Interpretation Comments Venous Blood Partial Pressure CO2 (test code = Venous Blood Partial Pressure CO2) 36.1 44-48 [facility] Partial Pressure O2 2018-02-09 02:02:00* Test Item Value Reference Range Interpretation Comments Venous Blood Partial Pressure O2 (test code = Venous B lood Partial Pressure O2) 37 40-41 L [facility] Blood [id number] 02:02:00* Test Item Value Reference Range Interpretation Comments Venous Blood HCO3 (test code = Venous Blood HCO3) 24.1 21-2 2 H [facility] Blood Total Carbon Dioxide 2018-02-09 02:02:00* Test Item Value Reference Range Interpretation Comments Venous Blood Total Carbon Dioxide (test code = Venous Blood Total Carbon Dioxide) 25 [facility] Blood Base [id number] 02:02:00* Test Item Value Reference Range Interpretation Comments Venous Blood Base Excess (test code = Venous Blood Base Excess) 0 [facility] O[facility] [id number] 02:02:00* Test Item Value Reference Range Interpretation Comments Venous Blood Oxygen Saturation (test code = Venous Blood Oxy gen Saturation) 73 [facility]ennialFiO22018-12-23 02:02:00* Test Item Value Reference Range Interpretation Comments FiO2 (test code = FiO2) 21 PT ON [facility] Blood [id number] 02:02:00* Test Item Value Reference Range Interpretation Comments Venous Blood pH (test code = Venous Blood pH) 7.435 7.35-7.3 8 [facility] Partial Pressure CO2 2018-02-09 02:02:00* Test Item Value Reference Range Interpretation Comments Venous Blood Partial Pressure CO2 (test code = Venous Blood Partial Pressure CO2) 36.1 44-48 [facility] Partial Pressure O2 2018-02-09 02:02:00* Test Item Value Reference Range Interpretation Comments Venous Blood Partial Pressure O2 (test code = Venous B lood Partial Pressure O2) 37 40-41 L [facility] Blood [id number] 02:02:00* Test Item Value Reference Range Interpretation Comments Venous Blood HCO3 (test code = Venous Blood HCO3) 24.1 21-2 2 H [facility] Blood Total Carbon Dioxide 2018-02-09 02:02:00* Test Item Value Reference Range Interpretation Comments Venous Blood Total Carbon Dioxide (test code = Venous Blood Total Carbon Dioxide) 25 [facility] Blood Base [id number] 02:02:00* Test Item Value Reference Range Interpretation Comments Venous Blood Base Excess (test code = Venous Blood Base Excess) 0 [facility] Blood Oxygen [id number] 02:02:00* Test Item Value Reference Range Interpretation Comments Venous Blood Oxygen Saturation (test code = Venous Blood Oxy gen Saturation) 73 [facility]ennialFiO22018-12-23 02:02:00* Test Item Value Reference Range Interpretation Comments FiO2 (test code = FiO2) 21 PT ON [facility] Blood [id number] 02:02:00* Test Item Value Reference Range Interpretation Comments Venous Blood pH (test code = Venous Blood pH) 7.435 7.35-7.3 8 [facility] Partial Pressure CO2 2018-02-09 02:02:00* Test Item Value Reference Range Interpretation Comments Venous Blood Partial Pressure CO2 (test code = Venous Blood Partial Pressure CO2) 36.1 44-48 [facility] Partial Pressure O2 2018-02-09 02:02:00* Test Item Value Reference Range Interpretation Comments Venous Blood Partial Pressure O2 (test code = Venous B lood Partial Pressure O2) 37 40-41 L [facility] Blood [id number] 02:02:00* Test Item Value Reference Range Interpretation Comments Venous Blood HCO3 (test code = Venous Blood HCO3) 24.1 21-2 2 H [facility] Blood Total Carbon Dioxide 2018-02-09 02:02:00* Test Item Value Reference Range Interpretation Comments Venous Blood Total Carbon Dioxide (test code = Venous Blood Total Carbon Dioxide) 25 [facility] Blood Base [id number] 02:02:00* Test Item Value Reference Range Interpretation Comments Venous Blood Base Excess (test code = Venous Blood Base Excess) 0 [facility] Blood Oxygen Kpmwiljskk6168-25-03 02:02:00* Test Item Value Reference Range Interpretation Comments Venous Blood Oxygen Saturation (test code = Venous Blood Oxy gen Saturation) 73 [facility]ennialFiO22018-12-23 02:02:00* Test Item Value Reference Range Interpretation Comments FiO2 (test code = FiO2) 21 PT ON [facility] Blood [id number] 02:02:00* Test Item Value Reference Range Interpretation Comments Venous Blood pH (test code = Venous Blood pH) 7.435 7.35-7.3 8 H [facility] Blood Partial Pressure CO2 2018-02-09 02:02:00* Test Item Value Reference Range Interpretation Comments Venous Blood Partial Pressure CO2 (test code = Venous Blood Partial Pressure CO2) 36.1 44-48 L [facility]ennialVenous Blood Partial Pressure O2 2018-02-09 02:02:00* Test Item Value Reference Range Interpretation Comments Venous Blood Partial Pressure O2 (test code = Venous B lood Partial Pressure O2) 37 40-41 L [facility] [id number] 02:02:00* Test Item Value Reference Range Interpretation Comments Venous Blood HCO3 (test code = Venous Blood HCO3) 24.1 21-2 2 H [facility] Blood Total Carbon Dioxide 2018-02-09 02:02:00* Test Item Value Reference Range Interpretation Comments Venous Blood Total Carbon Dioxide (test code = Venous Blood Total Carbon Dioxide) 25 [facility] Blood Base [id number] 02:02:00* Test Item Value Reference Range Interpretation Comments Venous Blood Base Excess (test code = Venous Blood Base Excess) 0 [facility] Blood Oxygen Zhrziohbud0731-31-59 02:02:00* Test Item Value Reference Range Interpretation Comments Venous Blood Oxygen Saturation (test code = Venous Blood Oxy gen Saturation) 73 [facility]ennialFiO22018-12-23 02:02:00* Test Item Value Reference Range Interpretation Comments FiO2 (test code = FiO2) [facility]2018-01-02 02:21:00 [place] [address] Patient Name: ARANZA LOPEZ MR #: [id number] : 1970 Age/Sex: 47/M Req #: [id number] Adm Physician: Ordered by: ORACIO STARR MD Report #: [id number] Location: ER Room/Bed: Procedure: [id number] DX/C HEST SINGLE (PORTABLE) Exam Date: Exam Time: REPORT STATUS: Signed EXAM: CHEST SIN GLE (PORTABLE), AP 1 view INDICATION: Chest pain, left side COMPARISON: None FINDINGS: Limited evaluation secondary to soft tissue attenuation. LARA ES/TUBES: None LUNGS: Perihilar bronchial thickening and atelectasis. PLEURA: No effusions or pneumothorax. HEART AND MEDIASTINUM: Stable appear ance BONES AND SOFT TISSUES: No acute findings. Median sternotomy hardware. IMPRESSION: No interval change Signed by: Dr. Simona carvalho M.D. on 01/02/2018 2:22 AM Dictated By: SIMONA GODINEZ MD [employer] [facility] Signed By: SIMONA GODINEZ MD on 01/02/18221 Transcribed By: ADALBERTO on 221 COPY TO: ORACIO STARR MD B-Type Natriuretic Peptide 2018-01-02 02:20:00* Test Item Value Reference Range Interpretation Comments B-Type Natriuretic Peptide (test code = 14397-8) 15.5 0-100 [facility]ennialB-Type Natriuretic [id number] 02:20:00* Test Item Value Reference Range Interpretation Comments B-Type Natriuretic Peptide (test code = 12394-4) 15.5 0-100 [facility]ennialProthrombin [id number] 02:10:00* Test Item Value Reference Range Interpretation Comments Prothrombin Time (test code = 5902-2) 19.3 11.9-14.5 H [facility]ennialProthromb Time International Ratio 2018-01-02 02:10:00* Test Item Value Reference Range Interpretation Comments Prothromb Time International Ratio (test code = 6301-6) 1.49 Oral Anticoagulant Therapy INR Values:1. Low Intensity Therapy 1.5 - 2.02 . Moderate Intensity Therapy 2.0 - 3.03. High Intensity Therapy(1) 2.5 - 3. 54. High Intensity Therapy(2) 3.0 - 4.05. Panic Value INR > 5.0 [facility] CentennialActivated Partial Thromboplast Time 2018-01-02 02:10:00* Test Item Value Reference Range Interpretation Comments Activated Partial Thromboplast Time (test code = 53064-7) 40.0 23.8-35.5 H [facility] CentennialProthrombin [id number] 02:10:00* Test Item Value Reference Range Interpretation Comments Prothrombin Time (test code = 5902-2) 19.3 11.9-14.5 H [facility] CentennialProthromb Time International Ratio 2018-01-02 02:10:00* Test Item Value Reference Range Interpretation Comments Prothromb Time International Ratio (test code = 6301-6) 1.49 Oral Anticoagulant Therapy INR Values:1. Low Intensity Therapy 1.5 - 2.02 . Moderate Intensity Therapy 2.0 - 3.03. High Intensity Therapy(1) 2.5 - 3. 54. High Intensity Therapy(2) 3.0 - 4.05. Panic Value INR > 5.0 [facility] CentennialActivated Partial Thromboplast Time 2018-01-02 02:10:00* Test Item Value Reference Range Interpretation Comments Activated Partial Thromboplast Time (test code = 51933-9) 40.0 23.8-35.5 H [facility] CentennialLactic Acid [id number] 20:12:00* Test Item Value Reference Range Interpretation Comments Lactic Acid Level (test code = Lactic Acid Level) 14.5 4.5- 19.8 [facility] CentennialLactic Acid [id number] 20:12:00* Test Item Value Reference Range Interpretation Comments Lactic Acid Level (test code = Lactic Acid Level) 14.5 4.5- 19.8 [facility] CentennialLactic Acid [id number] 20:12:00* Test Item Value Reference Range Interpretation Comments Lactic Acid Level (test code = Lactic Acid Level) 14.5 4.5- 19.8 [facility] CentennialLactic Acid [id number] 20:12:00* Test Item Value Reference Range Interpretation Comments Lactic Acid Level (test code = Lactic Acid Level) 14.5 4.5- 19.8 [facility] Dgcis5268-46-77 18:39:00* Test Item Value Reference Range Interpretation Comments Sodium Level (test code = 2951-2) 139 136-145 [facility] CentennialPotassium [id number] 18:39:00* Test Item Value Reference Range Interpretation Comments Potassium Level (test code = 2823-3) 3.8 3.5-5.1 [facility] CentennialChloride [id number] 18:39:00* Test Item Value Reference Range Interpretation Comments Chloride Level (test code = 2075-0) 100 98-107 [facility] CentennialCarbon Dioxide [id number] 18:39:00* Test Item Value Reference Range Interpretation Comments Carbon Dioxide Level (test code = 2028-9) 25 22-29 [facility] CentennialAnion [id number] 18:39:00* Test Item Value Reference Range Interpretation Comments Anion Gap (test code = 92141-7) 17.8 8-16 H [facility]ennialBlood Urea [id number] 18:39:00* Test Item Value Reference Range Interpretation Comments Blood Urea Nitrogen (test code = 3094-0) 17 7-26 [facility] CentennialCreatinine2018-05-06 18:39:00* Test Item Value Reference Range Interpretation Comments Creatinine (test code = 2160-0) 1.32 0.72-1.25 H [facility]ennialBUN/Creatinine [id number] 18:39:00* Test Item Value Reference Range Interpretation Comments BUN/Creatinine Ratio (test code = 3097-3) 13 6-25 [facility] CentennialEstimat Glomerular Filtration Rate 2017-06-23 18:39:00* Test Item Value Reference Range Interpretation Comments Estimat Glomerular Filtration Rate (test code = 72806-8) 58 >60 L Ranges were taken from the National Kidney Disease Education Program and the [place] [facility] Kidney Foundation literature.Reference ranges:60 or greater: Lmxrjb68-66 ( for 3 consecutive months): Chronic kidney disease 15 or less: Kidney failureBaylor Scott & [facility] – CentennialGlucose Phjfi3694-19-30 18:39:00* Test Item Value Reference Range Interpretation Comments Glucose Level (test code = PIG5012) 107 74-118 [facility] CentennialCalcium Lzxcm6373-84-42 18:39:00* Test Item Value Reference Range Interpretation Comments Calcium Level (test code = 66015-3) 9.5 8.4-10.2 [facility] CentennialMagnesium Ppyry6772-13-06 18:39:00* Test Item Value Reference Range Interpretation Comments Magnesium Level (test code = 50163-3) 2.1 1.3-2.1 [facility]ennialTotal Flryqfqno7260-30-72 18:39:00* Test Item Value Reference Range Interpretation Comments Total Bilirubin (test code = 1975-2) 0.4 0.2-1.2 [facility] CentennialAspartate Amino Transf (AST/SGOT) 2017-06-23 18:39:00* Test Item Value Reference Range Interpretation Comments Aspartate Amino Transf (AST/SGOT) (test code = Aspartate Amino Transf (AST/SGOT)) 31 5-34 [facility] CentennialAlanine Aminotransferase (ALT/SGPT) 2017-06-23 18:39:00* Test Item Value Reference Range Interpretation Comments Alanine Aminotransferase (ALT/SGPT) (test code = 1742-6) 23 0-55 [facility] CentennialTotal Kighmht4597-85-21 18:39:00* Test Item Value Reference Range Interpretation Comments Total Protein (test code = 2885-2) 7.9 6.5-8.1 [facility] [facility]ennialAlbumin2018[facility] 18:39:00* Test Item Value Reference Range Interpretation Comments Albumin (test code = 1751-7) 3.9 3.5-5.0 [facility]ennialGlobulin2018-05-06 18:39:00* Test Item Value Reference Range Interpretation Comments Globulin (test code = 85009-5) 4.0 2.3-3.5 H [facility]ennialAlbumin/Globulin Ubkfq5090-00-73 18:39:00 * Test Item Value Reference Range Interpretation Comments Albumin/Globulin Ratio (test code = 1759-0) 1.0 0.8-2.0 [facility]ennialAlkaline Yaassaprfgt5357-03-66 18:39:00* Test Item Value Reference Range Interpretation Comments Alkaline Phosphatase (test code = 6768-6) 89 40-150 [facility]ennialAmylase Zmrcl9927-63-01 18:39:00* Test Item Value Reference Range Interpretation Comments Amylase Level (test code = 1798-8) 31 25-125 [facility]ennialLipase2018-05-06 18:39:00* Test Item Value Reference Range Interpretation Comments Lipase (test code = 3040-3) 34 8-78 [facility]ennialAmylase Rzhzv3872-71-40 18:39:00* Test Item Value Reference Range Interpretation Comments Amylase Level (test code = 1798-8) 31 25-125 [facility]ennialLipase2018-05-06 18:39:00* Test Item Value Reference Range Interpretation Comments Lipase (test code = 3040-3) 34 8-78 [facility]ennialAmylase Tcjot7456-23-03 18:39:00* Test Item Value Reference Range Interpretation Comments Amylase Level (test code = 1798-8) 31 25-125 [facility]ennialLipase2018-05-06 18:39:00* Test Item Value Reference Range Interpretation Comments Lipase (test code = 3040-3) 34 8-78 [facility]ennialWhite Blood Mxfdh9518-94-90 18:20:00* Test Item Value Reference Range Interpretation Comments White Blood Count (test code = 6690-2) 6.97 4.8-10.8 [facility]ennialRed Blood Rjdqi5781-64-32 18:20:00* Test Item Value Reference Range Interpretation Comments Red Blood Count (test code = 789-8) 4.55 4.3-5.7 [facility]ennialHemoglobin2018-05-06 18:20:00* Test Item Value Reference Range Interpretation Comments Hemoglobin (test code = 96924-2) 14.1 14.0-18.0 [facility]ennialHematocrit2018-05-06 18:20:00* Test Item Value Reference Range Interpretation Comments Hematocrit (test code = 4544-3) 40.9 38.2-49.6 [facility]ennialMean Corpuscular Xjycln6883-44-52 18:20:00* Test Item Value Reference Range Interpretation Comments Mean Corpuscular Volume (test code = 787-2) 89.9 81-99 [facility]ennialMean Corpuscular Rmfulxavyq9452-26-55 18:20:00* Test Item Value Reference Range Interpretation Comments Mean Corpuscular Hemoglobin (test code = 785-6) 31.0 28-32 [facility]ennialMean Corpuscular Hemoglobin Concent 2017-06-23 18:20:00* Test Item Value Reference Range Interpretation Comments Mean Corpuscular Hemoglobin Concent (test code = 786-4) 34.5 31-35 [facility]ennialRed Cell Distribution Jxezk3150-99-84 18:20:00* Test Item Value Reference Range Interpretation Comments Red Cell Distribution Width (test code = 49771-2) 13.5 11.7 -14.4 [facility]ennialPlatelet Vggzl5184-67-58 18:20:00* Test Item Value Reference Range Interpretation Comments Platelet Count (test code = 777-3) 235 140-360 [facility]ennialNeutrophils (%) (Auto)2017-06-23 18:20:00 * Test Item Value Reference Range Interpretation Comments Neutrophils (%) (Auto) (test code = 44138-8) 61.3 38.7-80.0 [facility]ennialLymphocytes (%) (Auto)2017-06-23 18:20:00 * Test Item Value Reference Range Interpretation Comments Lymphocytes (%) (Auto) (test code = 736-9) 28.8 18.0-39.1 [facility]ennialMonocytes (%) (Auto)2017-06-23 18:20:00* Test Item Value Reference Range Interpretation Comments Monocytes (%) (Auto) (test code = 5905-5) 6.9 4.4-11.3 [facility]ennialEosinophils (%) (Auto)2017-06-23 18:20:00 * Test Item Value Reference Range Interpretation Comments Eosinophils (%) (Auto) (test code = 713-8) 1.9 0.0-6.0 [facility]ennialBasophils (%) (Auto)2017-06-23 18:20:00* Test Item Value Reference Range Interpretation Comments Basophils (%) (Auto) (test code = 706-2) 0.4 0.0-1.0 [facility]ennialIM GRANULOCYTES %2017-06-23 18:20:00* Test Item Value Reference Range Interpretation Comments IM GRANULOCYTES % (test code = IM GRANULOCYTES %) 0.7 0.0- 1.0 [facility]ennialNeutrophils # (Auto)2017-06-23 18:20:00* Test Item Value Reference Range Interpretation Comments Neutrophils # (Auto) (test code = 751-8) 4.3 2.1-6.9 [facility]ennialLymphocytes # (Auto)2017-06-23 18:20:00* Test Item Value Reference Range Interpretation Comments Lymphocytes # (Auto) (test code = 78758-3) 2.0 1.0-3.2 [facility]ennialMonocytes # (Auto)2017-06-23 18:20:00* Test Item Value Reference Range Interpretation Comments Monocytes # (Auto) (test code = 742-7) 0.5 0.2-0.8 [facility]ennialEosinophils # (Auto)2017-06-23 18:20:00* Test Item Value Reference Range Interpretation Comments Eosinophils # (Auto) (test code = 711-2) 0.1 0.0-0.4 [facility]ennialBasophils # (Auto)2017-06-23 18:20:00* Test Item Value Reference Range Interpretation Comments Basophils # (Auto) (test code = 704-7) 0.0 0.0-0.1 [facility]ennialAbsolute Immature Granulocyte (auto 2017-06-23 18:20:00* Test Item Value Reference Range Interpretation Comments Absolute Immature Granulocyte (auto (shahram t code = Absolute Immature Granulocyte (auto) 0.05 0-0.1 [facility] CentennialCreatine Kinase [id number] 14:18:00* Test Item Value Reference Range Interpretation Comments Creatine Kinase MB (test code = 52444-5) 1.10 0-5.0 [facility] CentennialTroponin [id number] 14:18:00* Test Item Value Reference Range Interpretation Comments Troponin I (test code = VVF3837) -0.001 0-0.300 [facility] CentennialCreatine Kinase [id number] 14:18:00* Test Item Value Reference Range Interpretation Comments Creatine Kinase MB (test code = 15060-2) 1.10 0-5.0 [facility] CentennialTrJennifer [place]ille 80046B3517-54-96 14:18:00* Test Item Value Reference Range Interpretation Comments Troponin I (test code = NRD6191) -0.001 0-0.300 [facility]ennialCreatine Ajkrrg6761-27-02 14:09:00* Test Item Value Reference Range Interpretation Comments Creatine Kinase (test code = 2157-6) 69 30-200 [facility] CentennialCreatine Zdhmci7820-13-22 14:09:00* Test Item Value Reference Range Interpretation Comments Creatine Kinase (test code = 2157-6) 69 30-200 [facility] CentennialTriglycerides Gjxhw2865-51-01 09:07:00* Test Item Value Reference Range Interpretation Comments Triglycerides Level (test code = 2571-8) 276 0-149 H [facility]ennialCholesterol Evcsu8427-27-88 09:07:00* Test Item Value Reference Range Interpretation Comments Cholesterol Level (test code = 2093-3) 132 0-199 Less than 200 mg/dL Low Eosi944 - 239 mg/dL Borderline Uvdv199 m g/dl and greater High Risk [facility] CentennialLDL Ctskzhaozaq5328-51-22 09:07:00* Test Item Value Reference Range Interpretation Comments LDL Cholesterol (test code = 2089-1) 52 60-130 L [facility] CentennialHDL Tpryjsecjek9560-30-89 09:07:00* Test Item Value Reference Range Interpretation Comments HDL Cholesterol (test code = 2085-9) 25 40-60 L [facility]ennialCholesterol/HDL Sdclk1083-85-08 09:07:00 * Test Item Value Reference Range Interpretation Comments Cholesterol/HDL Ratio (test code = 9830-1) 5.3 3.9-4.7 H [facility]ennialTriglycerides Lgaqn2932-04-86 09:07:00* Test Item Value Reference Range Interpretation Comments Triglycerides Level (test code = 2571-8) 276 0-149 H [facility]ennialCholesterol Jxahk6588-43-94 09:07:00* Test Item Value Reference Range Interpretation Comments Cholesterol Level (test code = 2093-3) 132 0-199 Less than 200 mg/dL Low Qafq092 - 239 mg/dL Borderline Mnff706 m g/dl and greater High Risk [facility] CentennialLDL Ebprcajbpgi6351-58-56 09:07:00* Test Item Value Reference Range Interpretation Comments LDL Cholesterol (test code = 2089-1) 52 60-130 L [facility] Xvcwqzvxmkt0319-38-83 09:07:00* Test Item Value Reference Range Interpretation Comments HDL Cholesterol (test code = 2085-9) 25 40-60 L [facility]ennialCholesterol/HDL Lhmmq9909-51-21 09:07:00 * Test Item Value Reference Range Interpretation Comments Cholesterol/HDL Ratio (test code = 9830-1) 5.3 3.9-4.7 H [facility]ennialTriglycerides Mupod5478-88-76 09:07:00* Test Item Value Reference Range Interpretation Comments Triglycerides Level (test code = 2571-8) 276 0-149 H [facility]ennialCholesterol Gfhfv7716-41-77 09:07:00* Test Item Value Reference Range Interpretation Comments Cholesterol Level (test code = 2093-3) 132 0-199 Less than 200 mg/dL Low Dyca448 - 239 mg/dL Borderline Vqep621 m g/dl and greater High Risk [facility]ennialLDL Nkpljiwhvht1163-68-67 09:07:00* Test Item Value Reference Range Interpretation Comments LDL Cholesterol (test code = 2089-1) 52 60-130 [facility] Gpjlbilzhhy0623-43-92 09:07:00* Test Item Value Reference Range Interpretation Comments HDL Cholesterol (test code = 2085-9) 25 40-60 L [facility]ennialCholesterol/HDL Wzhkk0507-18-73 09:07:00 * Test Item Value Reference Range Interpretation Comments Cholesterol/HDL Ratio (test code = 9830-1) 5.3 3.9-4.7 H [facility]ennialTriglycerides Cddam6490-09-87 09:07:00* Test Item Value Reference Range Interpretation Comments Triglycerides Level (test code = 2571-8) 276 0-149 H [facility]ennialCholesterol Epscd1627-36-31 09:07:00* Test Item Value Reference Range Interpretation Comments Cholesterol Level (test code = 2093-3) 132 0-199 Less than 200 mg/dL Low Dguq090 - 239 mg/dL Borderline Uank204 m g/dl and greater High Risk [facility]ennialLDL Hpzkgvedkqi3705-45-72 09:07:00* Test Item Value Reference Range Interpretation Comments LDL Cholesterol (test code = 2089-1) 52 60-130 L [facility] Npitdynhrxs7721-38-98 09:07:00* Test Item Value Reference Range Interpretation Comments HDL Cholesterol (test code = 2085-9) 25 40-60 L [facility]ennialCholesterol/HDL Saclx3381-92-38 09:07:00 * Test Item Value Reference Range Interpretation Comments Cholesterol/HDL Ratio (test code = 9830-1) 5.3 3.9-4.7 [facility] Htlth4259-84-12 23:14:00* Test Item Value Reference Range Interpretation Comments Sodium Level (test code = 2951-2) 139 136-145 [facility]ennialPotassium Zarrs1971-69-33 23:14:00* Test Item Value Reference Range Interpretation Comments Potassium Level (test code = 2823-3) 3.7 3.5-5.1 [facility]ennialChloride Opaln0556-85-16 23:14:00* Test Item Value Reference Range Interpretation Comments Chloride Level (test code = 2075-0) 106 98-107 [facility] CentennialCarbon Dioxide Qpxdh3909-55-78 23:14:00* Test Item Value Reference Range Interpretation Comments Carbon Dioxide Level (test code = 2028-9) 25 22-29 [facility] CentennialAnion Rwx2387-27-11 23:14:00* Test Item Value Reference Range Interpretation Comments Anion Gap (test code = 65163-6) 11.7 8-16 [facility] CentennialBlood Urea Iezmimyr9096-01-61 23:14:00* Test Item Value Reference Range Interpretation Comments Blood Urea Nitrogen (test code = 3094-0) 14 7-26 [facility] CentennialCreatinine2018-04-08 23:14:00* Test Item Value Reference Range Interpretation Comments Creatinine (test code = 2160-0) 1.27 0.72-1.25 H [facility]ennialBUN/Creatinine Aiiyh4023-34-13 23:14:00* Test Item Value Reference Range Interpretation Comments BUN/Creatinine Ratio (test code = 3097-3) 11 6-25 [facility] CentennialEstimat Glomerular Filtration Rate 2017-05-26 23:14:00* Test Item Value Reference Range Interpretation Comments Estimat Glomerular Filtration Rate (test code = 44430-7) 60- >60 Ranges were taken from the National Kidney Disease Education Program and the [facility] [employer] literature.Reference ranges:60 or greater: Sbeevz71-02 ( for 3 consecutive months): Chronic kidney disease 15 or less: Kidney failureBaylor Scott & [facility] – CentennialGlucose Owvxu1204-83-10 23:14:00* Test Item Value Reference Range Interpretation Comments Glucose Level (test code = VDS5385) 128 74-118 H [facility] CentennialCalcium Hpmfh6719-52-74 23:14:00* Test Item Value Reference Range Interpretation Comments Calcium Level (test code = 64346-1) 8.8 8.4-10.2 [facility] CentennialTotal Cxidglwrz9273-97-95 23:14:00* Test Item Value Reference Range Interpretation Comments Total Bilirubin (test code = 1975-2) 0.4 0.2-1.2 [facility] CentennialAspartate Amino Transf (AST/SGOT) 2017-05-26 23:14:00* Test Item Value Reference Range Interpretation Comments Aspartate Amino Transf (AST/SGOT) (test code = Aspartate Amino Transf (AST/SGOT)) 21 5-34 [facility] CentennialAlanine Aminotransferase (ALT/SGPT) 2017-05-26 23:14:00* Test Item Value Reference Range Interpretation Comments Alanine Aminotransferase (ALT/SGPT) (test code = 1742-6) 40 0-55 [facility] Rejlkfx3810-64-98 23:14:00* Test Item Value Reference Range Interpretation Comments Total Protein (test code = 2885-2) 6.6 6.5-8.1 [facility] CentennialAlbumin2018-04-08 23:14:00* Test Item Value Reference Range Interpretation Comments Albumin (test code = 1751-7) 3.6 3.5-5.0 [facility] CentennialGlobulin2018-04-08 23:14:00* Test Item Value Reference Range Interpretation Comments Globulin (test code = 04415-3) 3.0 2.3-3.5 [facility] CentennialAlbumin/Globulin Bfgyr7505-14-93 23:14:00 * Test Item Value Reference Range Interpretation Comments Albumin/Globulin Ratio (test code = 1759-0) 1.2 0.8-2.0 [facility] CentennialAlkaline Kopopveymrt2206-88-49 23:14:00* Test Item Value Reference Range Interpretation Comments Alkaline Phosphatase (test code = 6768-6) 88 40-150 [facility] CentennialProthrombin Bzey7743-94-40 23:07:00* Test Item Value Reference Range Interpretation Comments Prothrombin Time (test code = 5902-2) 13.7 11.9-14.5 [facility] CentennialProthromb Time International Ratio 2017-05-26 23:07:00* Test Item Value Reference Range Interpretation Comments Prothromb Time International Ratio (test code = 6301-6) 1.14 Oral Anticoagulant Therapy INR Values:1. Low Intensity Therapy 1.5 - 2.02 . Moderate Intensity Therapy 2.0 - 3.03. High Intensity Therapy(1) 2.5 - 3. 54. High Intensity Therapy(2) 3.0 - 4.05. Panic Value INR > 5.0 [facility] CentennialActivated Partial Thromboplast Time 2017-05-26 23:07:00* Test Item Value Reference Range Interpretation Comments Activated Partial Thromboplast Time (test code = 65446-3) 32.7 23.8-35.5 [facility] CentennialProthrombin Oowu4394-52-85 23:07:00* Test Item Value Reference Range Interpretation Comments Prothrombin Time (test code = 5902-2) 13.7 11.9-14.5 [facility] CentennialProthromb Time International Ratio 2017-05-26 23:07:00* Test Item Value Reference Range Interpretation Comments Prothromb Time International Ratio (test code = 6301-6) 1.14 Oral Anticoagulant Therapy INR Values:1. Low Intensity Therapy 1.5 - 2.02 . Moderate Intensity Therapy 2.0 - 3.03. High Intensity Therapy(1) 2.5 - 3. 54. High Intensity Therapy(2) 3.0 - 4.05. Panic Value INR > 5.0 [facility] CentennialActivated Partial Thromboplast Time 2017-05-26 23:07:00* Test Item Value Reference Range Interpretation Comments Activated Partial Thromboplast Time (test code = 43205-5) 32.7 23.8-35.5 [facility] CentennialWhite Blood Hlpng0227-94-37 22:59:00* Test Item Value Reference Range Interpretation Comments White Blood Count (test code = 6690-2) 7.14 4.8-10.8 [facility] CentennialRed Blood Kmjjr6176-99-74 22:59:00* Test Item Value Reference Range Interpretation Comments Red Blood Count (test code = 789-8) 4.32 4.3-5.7 [facility] CentennialHemoglobin2018-04-08 22:59:00* Test Item Value Reference Range Interpretation Comments Hemoglobin (test code = 16689-0) 13.5 14.0-18.0 L [facility] CentennialHematocrit2018-04-08 22:59:00* Test Item Value Reference Range Interpretation Comments Hematocrit (test code = 4544-3) 38.5 38.2-49.6 [facility] CentennialMean Corpuscular Vewqoi2522-91-88 22:59:00* Test Item Value Reference Range Interpretation Comments Mean Corpuscular Volume (test code = 787-2) 89.1 81-99 [facility] CentennialMean Corpuscular Guevufvpqx9534-96-59 22:59:00* Test Item Value Reference Range Interpretation Comments Mean Corpuscular Hemoglobin (test code = 785-6) 31.3 28-32 [facility] CentennialMean Corpuscular Hemoglobin Concent 2017-05-26 22:59:00* Test Item Value Reference Range Interpretation Comments Mean Corpuscular Hemoglobin Concent (test code = 786-4) 35.1 31-35 H [facility] CentennialRed Cell Distribution Znrbu1106-18-36 22:59:00* Test Item Value Reference Range Interpretation Comments Red Cell Distribution Width (test code = 97468-5) 13.1 11.7 -14.4 [facility] CentennialPlatelet Iaymx2988-42-44 22:59:00* Test Item Value Reference Range Interpretation Comments Platelet Count (test code = 777-3) 187 140-360 [facility] CentennialNeutrophils (%) (Auto)2017-05-26 22:59:00 * Test Item Value Reference Range Interpretation Comments Neutrophils (%) (Auto) (test code = 92937-5) 56.3 38.7-80.0 [facility] CentennialLymphocytes (%) (Auto)2017-05-26 22:59:00 * Test Item Value Reference Range Interpretation Comments Lymphocytes (%) (Auto) (test code = 736-9) 31.5 18.0-39.1 [facility] CentennialMonocytes (%) (Auto)2017-05-26 22:59:00* Test Item Value Reference Range Interpretation Comments Monocytes (%) (Auto) (test code = 5905-5) 8.8 4.4-11.3 [facility]ennialEosinophils (%) (Auto)2017-05-26 22:59:00 * Test Item Value Reference Range Interpretation Comments Eosinophils (%) (Auto) (test code = 713-8) 2.1 0.0-6.0 [facility]ennialBasophils (%) (Auto)2017-05-26 22:59:00* Test Item Value Reference Range Interpretation Comments Basophils (%) (Auto) (test code = 706-2) 0.6 0.0-1.0 [facility] CentennialIM GRANULOCYTES %2017-05-26 22:59:00* Test Item Value Reference Range Interpretation Comments IM GRANULOCYTES % (test code = IM GRANULOCYTES %) 0.7 0.0- 1.0 [facility]ennialNeutrophils # (Auto)2017-05-26 22:59:00* Test Item Value Reference Range Interpretation Comments Neutrophils # (Auto) (test code = 751-8) 4.0 2.1-6.9 [facility] CentennialLymphocytes # (Auto)2017-05-26 22:59:00* Test Item Value Reference Range Interpretation Comments Lymphocytes # (Auto) (test code = 74771-7) 2.3 1.0-3.2 [facility] CentennialMonocytes # (Auto)2017-05-26 22:59:00* Test Item Value Reference Range Interpretation Comments Monocytes # (Auto) (test code = 742-7) 0.6 0.2-0.8 [facility]ennialEosinophils # (Auto)2017-05-26 22:59:00* Test Item Value Reference Range Interpretation Comments Eosinophils # (Auto) (test code = 711-2) 0.2 0.0-0.4 [facility]ennialBasophils # (Auto)2017-05-26 22:59:00* Test Item Value Reference Range Interpretation Comments Basophils # (Auto) (test code = 704-7) 0.0 0.0-0.1 [facility] CentennialAbsolute Immature Granulocyte (auto 2017-05-26 22:59:00* Test Item Value Reference Range Interpretation Comments Absolute Immature Granulocyte (auto (shahram t code = Absolute Immature Granulocyte (auto) 0.05 0-0.1 [facility] CentennialTriglycerides Avnfw7973-72-04 07:06:00* Test Item Value Reference Range Interpretation Comments Triglycerides Level (test code = 2571-8) 248 0-149 H [facility] CentennialCholesterol Lygrq3301-47-56 07:06:00* Test Item Value Reference Range Interpretation Comments Cholesterol Level (test code = 2093-3) 141 0-199 Less than 200 mg/dL Low Vyoy330 - 239 mg/dL Borderline Goyu500 m g/dl and greater High Risk [facility] CentennialLDL Lqfctrequeb5014-60-72 07:06:00* Test Item Value Reference Range Interpretation Comments LDL Cholesterol (test code = 2089-1) 71 60-130 [facility] CentennialHDL Vaxoasrsdjw2805-38-19 07:06:00* Test Item Value Reference Range Interpretation Comments HDL Cholesterol (test code = 2085-9) 20 40-60 L [facility] CentennialCholesterol/HDL Mrqlj4192-71-60 07:06:00 * Test Item Value Reference Range Interpretation Comments Cholesterol/HDL Ratio (test code = 9830-1) 7.1 3.9-4.7 H [facility] CentennialCreatine Kinase XA2145-20-08 18:11:00* Test Item Value Reference Range Interpretation Comments Creatine Kinase MB (test code = 68582-1) 1.30 0-5.0 [facility] CentennialTroponin P5809-00-79 18:11:00* Test Item Value Reference Range Interpretation Comments Troponin I (test code = LNJ0707) 0.006 0-0.300 [facility] CentennialCreatine Ujvrli4538-30-10 18:01:00* Test Item Value Reference Range Interpretation Comments Creatine Kinase (test code = 2157-6) 145 30-200 [facility] DFQ8719-16-43 13:02:00* Test Item Value Reference Range Interpretation Comments Urine WBC (test code = 5821-4) 6-10 0-5 H [facility] [id number] 13:02:00* Test Item Value Reference Range Interpretation Comments Urine RBC (test code = 73530-8) 0-5 0-5 [facility] Szopkarg3828-11-29 13:02:00* Test Item Value Reference Range Interpretation Comments Urine Bacteria (test code = 01700-4) NONE NONE [facility] Epithelial Owbfe1519-21-33 13:02:00 * Test Item Value Reference Range Interpretation Comments Urine Epithelial Cells (test code = 23284-0) NONE NONE [facility] Calcium Oxalate Vejmtgug9593-29-46 13:02:00* Test Item Value Reference Range Interpretation Comments Urine Calcium Oxalate Crystals (test code = 5774-5) RARE FE W [facility] GLL4757-06-28 13:02:00* Test Item Value Reference Range Interpretation Comments Urine WBC (test code = 5821-4) 6-10 0-5 H [facility] [id number] 13:02:00* Test Item Value Reference Range Interpretation Comments Urine RBC (test code = 81933-3) 0-5 0-5 [facility] Ajsehpkp4301-22-18 13:02:00* Test Item Value Reference Range Interpretation Comments Urine Bacteria (test code = 20789-2) NONE NONE [facility] Epithelial Ntzgy0922-60-25 13:02:00 * Test Item Value Reference Range Interpretation Comments Urine Epithelial Cells (test code = 10845-2) NONE NONE [facility] Calcium Oxalate Srstrhmq2529-50-04 13:02:00* Test Item Value Reference Range Interpretation Comments Urine Calcium Oxalate Crystals (test code = 5774-5) RARE FE W [facility] [id number] 13:02:00* Test Item Value Reference Range Interpretation Comments Urine WBC (test code = 5821-4) 6-10 0-5 H [facility] [id number] 13:02:00* Test Item Value Reference Range Interpretation Comments Urine RBC (test code = 19337-1) 0-5 0-5 [facility]ennial[facility] Rcuzbakl5679-63-88 13:02:00* Test Item Value Reference Range Interpretation Comments Urine Bacteria (test code = 41382-2) NONE NONE [facility]ennial[facility] Epithelial Aaqzo0081-02-82 13:02:00 * Test Item Value Reference Range Interpretation Comments Urine Epithelial Cells (test code = 28979-0) NONE NONE [facility]ennial[facility] Calcium Oxalate Vijevpio7361-47-33 13:02:00* Test Item Value Reference Range Interpretation Comments Urine Calcium Oxalate Crystals (test code = 5774-5) [facility] Fjfljyyd8492-33-71 13:02:00* Test Item Value Reference Range Interpretation Comments Urine Calcium Oxalate Crystals (test code = 5774-5) RARE W [facility]ennialU[facility] Calcium Oxalate Kdjsidlz2402-79-97 13:02:00* Test Item Value Reference Range Interpretation Comments Urine Calcium Oxalate Crystals (test code = 5774-5) [facility] Kwtc4018-74-41 12:53:00* Test Item Value Reference Range Interpretation Comments Uric Acid (test code = 3084-1) 9.7 4.8-8.0 H [facility]ennialPhosphorus Kuvsb5093-31-40 12:53:00* Test Item Value Reference Range Interpretation Comments Phosphorus Level (test code = DKH8545) 3.8 2.3-4.7 [facility]ennialMagnesium Tighg7332-53-79 12:53:00* Test Item Value Reference Range Interpretation Comments Magnesium Level (test code = 58715-1) 1.9 1.3-2.1 [facility]ennialU[facility] Kmlk8742-81-74 12:53:00* Test Item Value Reference Range Interpretation Comments Uric Acid (test code = 3084-1) 9.7 4.8-8.0 H [facility]ennialPhosphorus Amiyt0600-17-08 12:53:00* Test Item Value Reference Range Interpretation Comments Phosphorus Level (test code = DFA7433) 3.8 2.3-4.7 [facility]ennialMagnesium Ytbwg2872-71-57 12:53:00* Test Item Value Reference Range Interpretation Comments Magnesium Level (test code = 53312-2) 1.9 1.3-2.1 [facility]ennialUric Rqzu0498-81-99 12:53:00* Test Item Value Reference Range Interpretation Comments Uric Acid (test code = 3084-1) 9.7 4.8-8.0 H [facility]ennialPhosphorus Tgkcu4120-38-92 12:53:00* Test Item Value Reference Range Interpretation Comments Phosphorus Level (test code = JMF7879) 3.8 2.3-4.7 [facility]ennialUric Hvup9422-03-56 12:53:00* Test Item Value Reference Range Interpretation Comments Uric Acid (test code = 3084-1) 9.7 4.8-8.0 H [facility]ennialPhosphorus Evsav7151-15-99 12:53:00* Test Item Value Reference Range Interpretation Comments Phosphorus Level (test code = REC1012) 3.8 2.3-4.7 [facility]ennialUric Jarw5922-11-46 12:53:00* Test Item Value Reference Range Interpretation Comments Uric Acid (test code = 3084-1) 9.7 4.8-8.0 H [facility]ennialPhosphorus Krzdv8470-65-71 12:53:00* Test Item Value Reference Range Interpretation Comments Phosphorus Level (test code = CVA0962) 3.8 2.3-4.7 [facility]ennialUrine Qbsqi5861-79-98 12:34:00* Test Item Value Reference Range Interpretation Comments Urine Color (test code = 5778-6) YELLOW YELLOW [facility]ennialUrine Liqgcaz2821-94-05 12:34:00* Test Item Value Reference Range Interpretation Comments Urine Clarity (test code = 63292-3) CLEAR CLEAR [facility] Specific Ubuttkz2282-88-81 12:34:00 * Test Item Value Reference Range Interpretation Comments Urine Specific [place] (test code = 5811-5) 1.020 1.010-1.02 5 [facility] iV5736-48-46 12:34:00* Test Item Value Reference Range Interpretation Comments Urine pH (test code = 05980-4) 5 5-7 [facility] Leukocyte Rgkafeyn1671-64-14 12:34:00* Test Item Value Reference Range Interpretation Comments Urine Leukocyte Esterase (test code = 5799-2) 1+ NEGATIVE H [facility] Pwqupdx5231-71-77 12:34:00* Test Item Value Reference Range Interpretation Comments Urine Nitrite (test code = 70523-4) NEGATIVE NEGATIVE [facility] Akusxrl9335-04-36 12:34:00* Test Item Value Reference Range Interpretation Comments Urine Protein (test code = 5804-0) NEGATIVE NEGATIVE [facility] Glucose (UA)2017-04-20 12:34:00* Test Item Value Reference Range Interpretation Comments Urine Glucose (UA) (test code = 2349-9) NEGATIVE NEGATIVE [facility] Ymchewz0818-48-06 12:34:00* Test Item Value Reference Range Interpretation Comments Urine Ketones (test code = 91797-9) TRACE NEGATIVE H [facility] Wlavlczfnpnw7059-65-22 12:34:00* Test Item Value Reference Range Interpretation Comments Urine Urobilinogen (test code = 75133-8) 0.2 0.2-1 [facility] Ceakgluap3049-29-63 12:34:00* Test Item Value Reference Range Interpretation Comments Urine Bilirubin (test code = 1978-6) 1+ NEGATIVE H Confirmatory test currently unavailable. False positive results may occur.[facility] Qoxqc8013-98-18 12:34:00* Test Item Value Reference Range Interpretation Comments Urine Blood (test code = 16124-2) NEGATIVE NEGATIVE [facility] Fglyp2899-96-11 12:34:00* Test Item Value Reference Range Interpretation Comments Urine Color (test code = 5778-6) YELLOW YELLOW [facility]ennialU[facility] Zzcmklr6490-27-75 12:34:00* Test Item Value Reference Range Interpretation Comments Urine Clarity (test code = 84067-1) CLEAR CLEAR [facility]ennialU[facility] Specific Muxnxmq4393-38-98 12:34:00 * Test Item Value Reference Range Interpretation Comments Urine Specific [place] (test code = 5811-5) 1.020 1.010-1.02 5 [facility]ennialU[facility] rJ3694-66-59 12:34:00* Test Item Value Reference Range Interpretation Comments Urine pH (test code = 79694-7) 5 5-7 [facility]ennial[facility] Leukocyte Mgwdmyvz6408-55-29 12:34:00* Test Item Value Reference Range Interpretation Comments Urine Leukocyte Esterase (test code = 5799-2) 1+ NEGATIVE H [facility] Fqwyutf0125-97-98 12:34:00* Test Item Value Reference Range Interpretation Comments Urine Nitrite (test code = 67730-7) NEGATIVE NEGATIVE [facility]ennialU[facility] Msauckz9615-55-17 12:34:00* Test Item Value Reference Range Interpretation Comments Urine Protein (test code = 5804-0) NEGATIVE NEGATIVE [facility]ennialUrine Glucose (UA)2017-04-20 12:34:00* Test Item Value Reference Range Interpretation Comments Urine Glucose (UA) (test code = 2349-9) NEGATIVE NEGATIVE [facility]ennialU[facility] Wpbdhnm4440-77-96 12:34:00* Test Item Value Reference Range Interpretation Comments Urine Ketones (test code = 14122-5) TRACE NEGATIVE H [facility]ennialUrine Afejkssjkonl3509-66-58 12:34:00* Test Item Value Reference Range Interpretation Comments Urine Urobilinogen (test code = 90082-2) 0.2 0.2-1 [facility]ennialU[facility] Dprpzarwx9238-74-02 12:34:00* Test Item Value Reference Range Interpretation Comments Urine Bilirubin (test code = 1978-6) 1+ NEGATIVE H Confirmatory test currently unavailable. False positive results may occur.[facility] Jeiny5108-09-91 12:34:00* Test Item Value Reference Range Interpretation Comments Urine Blood (test code = 18081-0) NEGATIVE NEGATIVE [facility]ennialUrine Ufpmu6709-42-75 12:34:00* Test Item Value Reference Range Interpretation Comments Urine Color (test code = 5778-6) YELLOW YELLOW [facility]ennialU[facility] Xrdywsb2279-84-15 12:34:00* Test Item Value Reference Range Interpretation Comments Urine Clarity (test code = 10078-3) CLEAR CLEAR [facility]ennialU[facility] Specific Wivsuvu1513-37-66 12:34:00 * Test Item Value Reference Range Interpretation Comments Urine Specific [place] (test code = 5811-5) 1.020 1.010-1.02 5 [facility] tR9396-32-25 12:34:00* Test Item Value Reference Range Interpretation Comments Urine pH (test code = 58177-3) 5 5-7 [facility] Leukocyte Vddocohh4308-28-64 12:34:00* Test Item Value Reference Range Interpretation Comments Urine Leukocyte Esterase (test code = 5799-2) 1+ NEGATIVE H [facility] Ttxnpig8636-23-70 12:34:00* Test Item Value Reference Range Interpretation Comments Urine Nitrite (test code = 04641-2) NEGATIVE NEGATIVE [facility]ennial[facility] Xaophsq7308-38-47 12:34:00* Test Item Value Reference Range Interpretation Comments Urine Protein (test code = 5804-0) NEGATIVE NEGATIVE [facility]ennialUrine Glucose (UA)2017-04-20 12:34:00* Test Item Value Reference Range Interpretation Comments Urine Glucose (UA) (test code = 2349-9) NEGATIVE NEGATIVE [facility]ennialU[facility] Okzxsec5342-00-89 12:34:00* Test Item Value Reference Range Interpretation Comments Urine Ketones (test code = 16471-6) TRACE NEGATIVE H [facility] Lzhaufzsttfk0928-05-01 12:34:00* Test Item Value Reference Range Interpretation Comments Urine Urobilinogen (test code = 40145-1) 0.2 0.2-1 [facility]ennialU[facility] Lwhhigfpm1063-58-11 12:34:00* Test Item Value Reference Range Interpretation Comments Urine Bilirubin (test code = 1978-6) 1+ NEGATIVE H Confirmatory test currently unavailable. False positive results may occur.[facility]ennialUrine Lfxxd7262-59-16 12:34:00* Test Item Value Reference Range Interpretation Comments Urine Blood (test code = 33049-2) NEGATIVE [facility] Rhuni0672-29-83 23:28:00* Test Item Value Reference Range Interpretation Comments Sodium Level (test code = 2951-2) 140 136-145 [facility]ennialPotassium Ldnwh3675-63-72 23:28:00* Test Item Value Reference Range Interpretation Comments Potassium Level (test code = 2823-3) 3.2 3.5-5.1 L [facility] CentennialChloride Bmccb8500-94-00 23:28:00* Test Item Value Reference Range Interpretation Comments Chloride Level (test code = 2075-0) 100 98-107 [facility] CentennialCarbon Dioxide Rnxpt3573-10-85 23:28:00* Test Item Value Reference Range Interpretation Comments Carbon Dioxide Level (test code = 2028-9) 26 22-29 [facility] CentennialAnion Kzq9414-08-55 23:28:00* Test Item Value Reference Range Interpretation Comments Anion Gap (test code = 16904-5) 17.2 8-16 H [facility] CentennialBlood Urea Tebvmheh5125-52-89 23:28:00* Test Item Value Reference Range Interpretation Comments Blood Urea Nitrogen (test code = 3094-0) 11 7-26 [facility] CentennialCreatinine2018-03-02 23:28:00* Test Item Value Reference Range Interpretation Comments Creatinine (test code = 2160-0) 1.22 0.72-1.25 [facility] CentennialBUN/Creatinine Vfsdg3652-10-56 23:28:00* Test Item Value Reference Range Interpretation Comments BUN/Creatinine Ratio (test code = 3097-3) 9 6-25 [facility] CentennialEstimat Glomerular Filtration Rate 2017-04-19 23:28:00* Test Item Value Reference Range Interpretation Comments Estimat Glomerular Filtration Rate (test code = 83119-9) 60- >60 Ranges were taken from the National Kidney Disease Education Program and the [facility] literature.Reference ranges:60 or greater: Cmgqto96-73 ( for 3 consecutive months): Chronic kidney disease 15 or less: Kidney failureBaylor Scott & [facility] – CentennialGlucose Ducgq1643-66-29 23:28:00* Test Item Value Reference Range Interpretation Comments Glucose Level (test code = WNL9904) 117 74-118 [facility] CentennialCalcium Ncvpr2439-30-51 23:28:00* Test Item Value Reference Range Interpretation Comments Calcium Level (test code = 13702-4) 9.3 8.4-10.2 [facility] CentennialTotal Wxkxnvyrf0908-55-24 23:28:00* Test Item Value Reference Range Interpretation Comments Total Bilirubin (test code = 1975-2) 0.5 0.2-1.2 [facility] CentennialAspartate Amino Transf (AST/SGOT) 2017-04-19 23:28:00* Test Item Value Reference Range Interpretation Comments Aspartate Amino Transf (AST/SGOT) (test code = Aspartate Amino Transf (AST/SGOT)) 29 5-34 [facility] CentennialAlanine Aminotransferase (ALT/SGPT) 2017-04-19 23:28:00* Test Item Value Reference Range Interpretation Comments Alanine Aminotransferase (ALT/SGPT) (test code = 1742-6) 37 0-55 [facility] CentennialTotal Gmcecwp6495-31-83 23:28:00* Test Item Value Reference Range Interpretation Comments Total Protein (test code = 2885-2) 7.3 6.5-8.1 [facility] CentennialAlbumin2018-03-02 23:28:00* Test Item Value Reference Range Interpretation Comments Albumin (test code = 1751-7) 3.8 3.5-5.0 [facility] CentennialGlobulin2018-03-02 23:28:00* Test Item Value Reference Range Interpretation Comments Globulin (test code = 01670-2) 3.5 2.3-3.5 [facility] CentennialAlbumin/Globulin Bwzmw9182-31-14 23:28:00 * Test Item Value Reference Range Interpretation Comments Albumin/Globulin Ratio (test code = 1759-0) 1.1 0.8-2.0 [facility] CentennialAlkaline Shhgaikypgv8136-92-12 23:28:00* Test Item Value Reference Range Interpretation Comments Alkaline Phosphatase (test code = 6768-6) 92 40-150 [facility] CentennialB-Type Natriuretic Vchzrxj3698-42-82 23:28:00* Test Item Value Reference Range Interpretation Comments B-Type Natriuretic Peptide (test code = 27993-3) -12.0 0-100 [facility] CentennialLipase2018-03-02 23:28:00* Test Item Value Reference Range Interpretation Comments Lipase (test code = 3040-3) 18 [facility] CentennialB-Type Natriuretic Bpzjedu9092-76-11 23:28:00* Test Item Value Reference Range Interpretation Comments B-Type Natriuretic Peptide (test code = 91121-5) -12.0 0-100 [facility] CentennialLipase2018-03-02 23:28:00* Test Item Value Reference Range Interpretation Comments Lipase (test code = 3040-3) 18 [facility] CentennialB-Type Natriuretic Bwjeuua8742-35-52 23:28:00* Test Item Value Reference Range Interpretation Comments B-Type Natriuretic Peptide (test code = 07183-6) -12.0 0-100 [facility] CentennialProthrombin Swgg4936-45-08 23:22:00* Test Item Value Reference Range Interpretation Comments Prothrombin Time (test code = 5902-2) 14.2 11.9-14.5 [facility] CentennialProthromb Time International Ratio 2017-04-19 23:22:00* Test Item Value Reference Range Interpretation Comments Prothromb Time International Ratio (test code = 6301-6) 1.19 Oral Anticoagulant Therapy INR Values:1. Low Intensity Therapy 1.5 - 2.02 . Moderate Intensity Therapy 2.0 - 3.03. High Intensity Therapy(1) 2.5 - 3. 54. High Intensity Therapy(2) 3.0 - 4.05. Panic Value INR > 5.0 [facility] CentennialActivated Partial Thromboplast Time 2017-04-19 23:22:00* Test Item Value Reference Range Interpretation Comments Activated Partial Thromboplast Time (test code = 03681-9) 33.6 23.8-35.5 [facility] CentennialD-Dimer Quantitative (PE/DVT)2017-04-19 23:22:00* Test Item Value Reference Range Interpretation Comments D-Dimer Quantitative (PE/DVT) (test code = 42969-5) 0.56 0. 00-0.45 H [facility] CentennialD-Dimer Quantitative (PE/DVT)2017-04-19 23:22:00* Test Item Value Reference Range Interpretation Comments D-Dimer Quantitative (PE/DVT) (test code = 46631-1) 0.56 0. 00-0.45 H [facility] CentennialD-Dimer Quantitative (PE/DVT)2017-04-19 23:22:00* Test Item Value Reference Range Interpretation Comments D-Dimer Quantitative (PE/DVT) (test code = 77592-2) 0.56 0. 00-0.45 H [facility] CentennialD-Dimer Quantitative (PE/DVT)2017-04-19 23:22:00* Test Item Value Reference Range Interpretation Comments D-Dimer Quantitative (PE/DVT) (test code = 34181-8) 0.56 0. 00-0.45 H [facility] CentennialD-Dimer Quantitative (PE/DVT)2017-04-19 23:22:00* Test Item Value Reference Range Interpretation Comments D-Dimer Quantitative (PE/DVT) (test code = 10234-2) 0.56 0. 00-0.45 H [facility] CentennialWhite Blood Nqrce1580-99-48 23:09:00* Test Item Value Reference Range Interpretation Comments White Blood Count (test code = 6690-2) 5.52 4.8-10.8 [facility] CentennialRed Blood Bnbuv0562-70-11 23:09:00* Test Item Value Reference Range Interpretation Comments Red Blood Count (test code = 789-8) 4.38 4.3-5.7 [facility] CentennialHemoglobin2018-03-02 23:09:00* Test Item Value Reference Range Interpretation Comments Hemoglobin (test code = 12304-4) 13.8 14.0-18.0 L [facility] CentennialHematocrit2018-03-02 23:09:00* Test Item Value Reference Range Interpretation Comments Hematocrit (test code = 4544-3) 39.1 38.2-49.6 [facility] CentennialMean Corpuscular Kbpfxl0349-81-55 23:09:00* Test Item Value Reference Range Interpretation Comments Mean Corpuscular Volume (test code = 787-2) 89.3 81-99 [facility] CentennialMean Corpuscular Ajjvievunp1632-49-54 23:09:00* Test Item Value Reference Range Interpretation Comments Mean Corpuscular Hemoglobin (test code = 785-6) 31.5 28-32 [facility] CentennialMean Corpuscular Hemoglobin Concent 2017-04-19 23:09:00* Test Item Value Reference Range Interpretation Comments Mean Corpuscular Hemoglobin Concent (test code = 786-4) 35.3 31-35 H [facility] CentennialRed Cell Distribution Vzcst3261-75-21 23:09:00* Test Item Value Reference Range Interpretation Comments Red Cell Distribution Width (test code = 50463-0) 14.4 11.7 -14.4 [facility] CentennialPlatelet Fuqau1428-17-55 23:09:00* Test Item Value Reference Range Interpretation Comments Platelet Count (test code = 777-3) 202 140-360 [facility] CentennialNeutrophils (%) (Auto)2017-04-19 23:09:00 * Test Item Value Reference Range Interpretation Comments Neutrophils (%) (Auto) (test code = 16643-8) 57.0 38.7-80.0 [facility] CentennialLymphocytes (%) (Auto)2017-04-19 23:09:00 * Test Item Value Reference Range Interpretation Comments Lymphocytes (%) (Auto) (test code = 736-9) 33.0 18.0-39.1 [facility] CentennialMonocytes (%) (Auto)2017-04-19 23:09:00* Test Item Value Reference Range Interpretation Comments Monocytes (%) (Auto) (test code = 5905-5) 6.9 4.4-11.3 [facility]ennialEosinophils (%) (Auto)2017-04-19 23:09:00 * Test Item Value Reference Range Interpretation Comments Eosinophils (%) (Auto) (test code = 713-8) 2.2 0.0-6.0 [facility] CentennialBasophils (%) (Auto)2017-04-19 23:09:00* Test Item Value Reference Range Interpretation Comments Basophils (%) (Auto) (test code = 706-2) 0.4 0.0-1.0 [facility] CentennialIM GRANULOCYTES %2017-04-19 23:09:00* Test Item Value Reference Range Interpretation Comments IM GRANULOCYTES % (test code = IM GRANULOCYTES %) 0.5 0.0- 1.0 [facility] CentennialNeutrophils # (Auto)2017-04-19 23:09:00* Test Item Value Reference Range Interpretation Comments Neutrophils # (Auto) (test code = 751-8) 3.2 2.1-6.9 [facility] CentennialLymphocytes # (Auto)2017-04-19 23:09:00* Test Item Value Reference Range Interpretation Comments Lymphocytes # (Auto) (test code = 03310-2) 1.8 1.0-3.2 [facility] CentennialMonocytes # (Auto)2017-04-19 23:09:00* Test Item Value Reference Range Interpretation Comments Monocytes # (Auto) (test code = 742-7) 0.4 0.2-0.8 [facility]ennialEosinophils # (Auto)2017-04-19 23:09:00* Test Item Value Reference Range Interpretation Comments Eosinophils # (Auto) (test code = 711-2) 0.1 0.0-0.4 [facility] CentennialBasophils # (Auto)2017-04-19 23:09:00* Test Item Value Reference Range Interpretation Comments Basophils # (Auto) (test code = 704-7) 0.0 0.0-0.1 [facility] CentennialAbsolute Immature Granulocyte (auto 2017-04-19 23:09:00* Test Item Value Reference Range Interpretation Comments Absolute Immature Granulocyte (auto (shahram t code = Absolute Immature Granulocyte (auto) 0.03 0-0.1 [facility] CentennialD-Dimer, Qnmuailzgdym5539-28-59 09:54:00 * Test Item Value Reference Range Interpretation Comments D-Dimer, Quant (test code = DDQNT) 620 ng/mL 0-500 H Troponin S5672-71-73 09:37:00* Test Item Value Reference Range Interpretation Comments Troponin T (test code = JOSÉ) <0.010 ng/mL 0.000-0.090 N Comprehensive Metabolic Mtuyx5896-15-79 09:37:00* Test Item Value Reference Range Interpretation Comments Sodium (test code = NA) 138 mmol/L 135-145 N Potassium (test code = K) 3.6 mmol/L 3.5-5.1 N Chloride (test code = CL) 103 mmol/L 98-105 N Carbon Dioxide (test code = CO2) 26 mmol/L 22-29 N Glucose (test code = GLU) 107 mg/dL 70-115 N Blood Urea Nitrogen (test code = BUN) 14 mg/dL 6-20 N Creatinine (test code = CREAT) 0.9 mg/dL 0.7-1.2 N Calcium (test code = CA) 8.7 mg/dL 8.3-10.5 N Prot Total (test code = TP) 5.5 g/dL 6.4-8.3 L Albumin (test code = ALB) 3.6 g/dL 3.5-5.2 N A/G Ratio (test code = AGRATIO) 1.9 Ratio Globulin (test code = GLOB) 1.9 2.9-3.1 L Bili Total (test code = TBIL) 0.4 mg/dL 0.1-0.9 N Alk Phos (test code = APHOS) 84 U/L 40-129 N AST (test code = AST) 25 U/L 1-40 N ALT (test code = ALT) 22 U/L 1-41 N BUN/Creatinine Ratio (test code = BCRATIO) 15.6 Anion Gap (test code = AGAP) 9 mmol/L 7-16 N Estimated GFR (test code = GFR) >60 mL/min/1.73m2 eGFR (estimated Glomerular Filtration Rate) is an estimated value,calculated from the patient's serum creatinine using the MDRD equation.It is NOT the patient's actual GFR. The eGFR provides a more clinicallyuseful measure of kidney disease than serum creatinine alone.This calculation takes sex and race into account, if the informationis provided. If the race is not provided, and the patient isAfrican-Fijian, multiply by 1.212. If sex is not provided, and thepatient is female, multiply by 0.742. Results for patients <18 years ofage have not been validated by the MDRD study and should be interpretedwith caution.eGFR Result Interpretation:eGFR > or = 60 is in the Normal RangeeGFR < 60 may mean kidney diseaseeGFR < 15 may mean kidney failureRanges recommended by the National Kidney Found ation,http://nkdep.nih.gov CBC with Jfxdbzglabwx7222-50-52 09:00:00* Test Item Value Reference Range Interpretation Comments WBC (test code = WBC) 5.2 K/cumm 4.4-10.5 N RBC (test code = RBC) 4.09 M/cumm 4.10-5.70 L Hemoglobin (test code = HGB) 12.6 gm/dL 13.4-17.4 L Hematocrit (test code = HCT) 36.2 % 38.7-52.0 L MCV (test code = MCV) 88.5 fL 80-100 N MCH (test code = MCH) 30.9 pg 27.0-32.5 N MCHC (test code = MCHC) 34.9 g/dL 32.0-37.5 N RDW (test code = RDW) 15.5 % 11.5-14.5 H Platelet Count (test code = PLTCT) 191 K/cumm 140-440 N MPV (test code = MPV) 8.4 fL Diff Method (test code = DIFFM) Auto Neutrophil (test code = NEUT) 61.9 % 36-70 N Lymphocyte (test code = LYMPH) 27.7 % 12-44 N Monocyte (test code = MONO) 6.7 % 0-11 N Eosinophil (test code = EOS) 3.4 % 0-7 N Basophil (test code = BASO) 0.3 % 0-2 N Neutro Abs (test code = ANEUT) 3.2 K/cumm 1.6-7.4 N Lymph Abs (test code = ALYMPH) 1.4 K/cumm 0.5-4.6 N [place] Abs (test code = AMONO) 0.4 K/cumm 0.0-1.2 N Eos Abs (test code = AEOS) 0.18 K/cumm 0.00-0.74 N Baso Abs (test code = ABASO) 0.0 K/cumm 0.00-0.21 N Glucose blood sjuorgkdsts6341-42-77 11:05:00* Test Item Value Reference Range Interpretation Comments Glucose blood fingerstick (test code = MMY5784) 173 mg/dL 65-120 Complete blood count (CBC) with automated white blood cell (WBC) differential 2016-06-07 06:15:00* Test Item Value Reference Range Interpretation Comments White blood cell count (test code = JQD5101) 6.0 4.3-10.9 Blood erythrocytes count (number/volume) (test code = 41803- 1) 4.52 M/ul 4.33-5.43 Hemoglobin measurement (test code = YPW1001) 13.6 g/dL 13.6-17.9 Blood hematocrit (volume fraction) (test code = 96508-2) 39.7 % 39.6-49.0 MCV (test code = 63998-6) 87.7 fL 80-100 MCH (test code = 15046-8) 30.0 pg 27.0-35.0 MCHC (test code = MCHC) 34.2 g/dL 32.0-36.0 Platelets (test code = PLT) 184 152-406 Red Cell Distribution Width (test code = RDW) 15.0 % 12.1-15. 2 Blood platelet mean volume (test code = 70160-7) 8.2 fL 7.6-1 1.3 Neutrophils % (test code = RENETTA%) 61.7 % 41.7-73.7 Lymphocytes/leuk NFr Bld (test code = 90588-7) 26.6 % 15.3-44 .8 Monocyte percentage (test code = 5905-5) 9.0 % 3.3-12.3 Eosinophil % (test code = 713-8) 1.9 % 0-4.4 Basophil % (test code = 10204-1) 0.8 % 0-1.3 Absolute neutrophil count (test code = 751-8) 3.7 1.8-8.0 Absolute lymphocyte count (test code = 49473-3) 1.6 0.7-4. 9 Absolute monocyte count (test code = 742-7) 0.5 0.1-1.3 Absolute Eosinophils (test code = EOA) 0.1 0-0.5 Absolute Basophils (test code = BASA) 0.0 0-0.5 [facility] [id number] 05:57:00* Test Item Value Reference Range Interpretation Comments Troponin I (test code = TROP) < 0.03 <0.03 Primary Language Spanish Physician Instructions Edit Troponin Times according to first ED TroponinBasic Metabolic Kfhwl5898-12-95 05:55:00 * Test Item Value Reference Range Interpretation Comments Sodium level (test code = AHK7162) 139 meq/L 135-145 4.0 Chloride measurement (test code = NYI5569) 107 meq/L 101-111 Bicarbonate (test code = CO2) 26 meq/L 21-31 Glucose measurement (test code = OFE1074) 112 mg/dL 65-120 ADA Clinical Practice Recommendation: <100 mg/dl = Normal Fasting Glucose BUN Bld-mCnc (test code = 6299-2) 14 mg/dL 6-20 Creatinine measurement (test code = YVD9024) 0.99 mg/dL 0.61-1.24 The creatinine method used has been calibrated to be traceable to Isotope dilution Mass Spectrometry (IDMS). For more information: www.nkdep.nih.gov Estimated glomerular filtration rate (GFR) determinati on (test code = 01666-4) 81 mL =/>90 L FOR CHRONIC KIDNEY D ISEASE: GFR STAGE DESCRIPTION =/>90 STAGE 1 NORMAL--OR-- MINIMAL KIDNEY DAMAGE WITH NORMAL GFR 60-89 STAGE 2 MILD DECREASE IN GFR 30-59 STAGE 3 MODERATE DECREASE IN GFR 15-29 STAGE 4 SEVERE DECREASE IN GFR <15 STAGE 5 KIDNEY FAILURE The Glomerular Filtration Rate (GFR) has been calculated using the IDMS-Traceable MDRD Study Equation. Calcium Level (test code = CA) 9.1 mg/dL 8.5-10.5 Primary Language EnglishGladys L6572-90-84 22:43:00* Test Item Value Reference Range Interpretation Comments Troponin I (test code = TROP) < 0.03 <0.03 Primary Language Spanish Physician Instructions Edit Troponin Times according to first ED TroponinUrine dipstick testing at [facility] 2016-06-06 17:00:00* Test Item Value Reference Range Interpretation Comments Urine specific gravity measurement (test code = 2965-2) 1.020 1.005-1.030 Urine glucose detection (test code = 2349-9) Negative NEG Urine Ketones (test code = UKET) NEGATIVE NEG Urine blood detection (test code = 13631-1) Negative NEG Urine pH (test code = 2756-5) 6.0 5.0-7.0 Urinalysis with microscopy (test code = 42373-2) NEGATIVE NEG Urine nitrate measurement (test code = 61569-1) NEGATIVE NEG Urine Leukocyte Esterase (test code = UESTR) TRACE NEG AA Comment Bed:20 mc NEG NEG NEG TRACE NEG 6.0 NEG Y 1.020Brain natriuretic peptide (BNP) usvdnaudczt7922-95-11 15:04:00* Test Item Value Reference Range Interpretation Comments Brain natriuretic peptide (BNP) measurement (test code = 309 34-4) 46 pg/mL <=100 Basic Metabolic Gbksc0754-13-53 14:54:00* Test Item Value Reference Range Interpretation Comments Sodium level (test code = JAW4303) 140 meq/L 135-145 3.6 Chloride measurement (test code = QVQ1014) 105 meq/L 101-111 Bicarbonate (test code = CO2) 24 meq/L 21-31 Glucose measurement (test code = JUG0982) 115 mg/dL 65-120 ADA Clinical Practice Recommendation: <100 mg/dl = Normal Fasting Glucose BUN Bld-mCnc (test code = 6299-2) 12 mg/dL 6-20 Creatinine measurement (test code = ZYR3931) 1.02 mg/dL 0.61-1.24 The creatinine method used has been calibrated to be traceable to Isotope dilution Mass Spectrometry (IDMS). For more information: www.nkdep.nih.gov Estimated glomerular filtration rate (GFR) determinati on (test code = 69727-4) 79 mL =/>90 L FOR CHRONIC KIDNEY D ISEASE: GFR STAGE DESCRIPTION =/>90 STAGE 1 NORMAL--OR-- MINIMAL KIDNEY DAMAGE WITH NORMAL GFR 60-89 STAGE 2 MILD DECREASE IN GFR 30-59 STAGE 3 MODERATE DECREASE IN GFR 15-29 STAGE 4 SEVERE DECREASE IN GFR <15 STAGE 5 KIDNEY FAILURE The Glomerular Filtration Rate (GFR) has been calculated using the IDMS-Traceable MDRD Study Equation. Calcium Level (test code = CA) 9.3 mg/dL 8.5-10.5 Liver (Hepatic) Ekvsgdzi7946-10-81 14:54:00* Test Item Value Reference Range Interpretation Comments Aspartate aminotransferase (AST) measurement (test code = IM O0002) 22 [iU]/L 10-42 ALT/SGPT (test code = SGPT) 23 [iU]/L 10-60 Alkaline Phosphatase (test code = ALK) 76 [iU]/L 42-121 Bilirubin total (test code = PYL1635) 0.8 mg/dL 0.3-1.2 Bilirubin direct (test code = 1968-7) 0.1 mg/dL 0-0.2 Serum total protein measurement (test code = 2885-2) 6.5 g/dL 6 .0-8.3 Albumin measurement (test code = DYR7605) 4.1 g/dL 3.2-5.5 Globulin (test code = GLOB) 2.4 g/dL 2.3-3.5 Albumin/Globulin Ratio (test code = A/G) 1.7 1.1-1.8 Creatine Gycxcobxbmecy2458-71-53 14:54:00* Test Item Value Reference Range Interpretation Comments Creatine Phosphokinase (test code = CPK) 114 [iU]/L 22-269 CKMB Creatine Kinase JL3610-90-69 14:54:00* Test Item Value Reference Range Interpretation Comments CKMB Creatine Kinase MB (test code = CKMB) 1.6 ng/mL 0.3-4.0 Magnesium iigyjrewpdq0113-59-50 14:54:00* Test Item Value Reference Range Interpretation Comments Magnesium measurement (test code = 01753-4) 1.9 mg/dL 1.8-2.5 Troponin (Emerg Dept Use Only)2016-06-06 14:51:00* Test Item Value Reference Range Interpretation Comments Troponin (Emerg Dept Use Only) (test code = TROPED) < 0.03 <0 .03 Comment Bed:20 Test Ordered to Rule Out VTE/DVT? NProthrombin time (PT) with international normalized ratio (INR)2016-06-06 14:40:00* Test Item Value Reference Range Interpretation Comments PT Prothrombin Time (test code = PROTIME) 11.8 s 9.5-12.5 INR in Blood by Coagulation assay (test code = 91924-1) 1.04 Monitor pts using INR value (not prothrombin time) INR Coumadin Therapy: Low Range (prophylaxis) 2.0-3.0 High Range (high risk of clot formation) 2.5-3.5 Test Ordered to Rule Out VTE/DVT? N Test Ordered to Rule Out VTE/DVT? NPTT, Activated Partial Pchkks2840-82-52 14:40:00* Test Item Value Reference Range Interpretation Comments PTT, Activated Partial Thromb (test code = PTT) 33.2 s 24.3-3 6.9 Test Ordered to Rule Out VTE/DVT? N Test Ordered to Rule Out VTE/DVT? NComplete blood count (CBC) with automated white blood cell (WBC) uwyyfecoyvbq4454-05-22 14:37:00* Test Item Value Reference Range Interpretation Comments White blood cell count (test code = XSU4963) 6.2 4.3-10.9 Blood erythrocytes count (number/volume) (test code = 38188- 1) 4.87 M/ul 4.33-5.43 Hemoglobin measurement (test code = BOR4846) 14.4 g/dL 13.6-17.9 Blood hematocrit (volume fraction) (test code = 94012-5) 42.5 % 39.6-49.0 MCV (test code = 98081-0) 87.3 fL 80-100 MCH (test code = 10244-4) 29.5 pg 27.0-35.0 MCHC (test code = MCHC) 33.8 g/dL 32.0-36.0 Platelets (test code = PLT) 213 152-406 Red Cell Distribution Width (test code = RDW) 14.6 % 12.1-15. 2 Blood platelet mean volume (test code = 56366-3) 8.2 fL 7.6-1 1.3 Neutrophils % (test code = RENETTA%) 56.1 % 41.7-73.7 Lymphocytes/leuk NFr Bld (test code = 31815-7) 33.4 % 15.3-44 .8 Monocyte percentage (test code = 5905-5) 8.3 % 3.3-12.3 Eosinophil % (test code = 713-8) 1.5 % 0-4.4 Basophil % (test code = 50179-4) 0.7 % 0-1.3 Absolute neutrophil count (test code = 751-8) 3.5 1.8-8.0 Absolute lymphocyte count (test code = 81170-0) 2.1 0.7-4. 9 Absolute monocyte count (test code = 742-7) 0.5 0.1-1.3 Absolute Eosinophils (test code = EOA) 0.1 0-0.5 Absolute Basophils (test code = BASA) 0.0 0-0.5 CT ABDOMEN/PELVIS W [place] [address] Patient Name: ARANZA LOPEZ MR #: [id number] : 1970 Age/Sex: 47/M Req #: [id number] Adm Physician: Ordered by: RUFINA STRE[address] TIN ASSORTER Report #: [id number] Location: ER Room/Bed: Procedure: [id number] CT/CT ABDOMEN/PELVIS W Exam D ate: 06/23/17 [...] the abdomen or pelvis. Signed by: Dr. Simona Fontanez M.D. on 06/23/2017 7:33 PM Dictated By: SIMONA GODINEZ MD Electr onically Signed By: SIMONA GODINEZ MD on 06/23/171932 Transcribed By: ADALBERTO frost 06/23/171932 COPY TO: RUFINA STRE[address] TIN ASSORTER CT BRAIN WO [place] [address] Patient Name: ARANZA LOPEZ MR #: [id number] : 10/1970 Age/Sex: 46/M Req #: [id number] Adm Physician: Ordered by: AZAEL HARMAN MD Report #: [id number] Location: ER Room /Bed: Procedure: [id number] CT/CT BRAIN WO Exam Date: 05/26/17 Exam [...] on 05/26/2017 10:31 PM Dictated By: ONEIDA BROWNING MD [facility] Signed By: ONEIDA BROWNING MD on 05/26/172230 Transcribed By: ADALBERTO on 05/26/172230 COPY TO: AZAEL HARMAN MD CHEST SINGLE (PORTABLE) [place] [address] Patient Name: ARANZA LOPEZ MR #: [id number] : 1970 Age/Sex: 46/M Req #: [id number] Adm Physician: Ordered by: AZAEL HARMAN MD Report #: [id number] Location: ER Room/Bed: Procedure: [id number] DX/CHEST SINGLE (PORTABLE) Exam Date: 05/26/17 Exam [...] to patient's body habitus Signed by: Dr. Derrick Soto M.D. on 05/26/2017 10: 54 PM Dictated By: DERRICK RICK MD 53 Transcribed By: ADALBERTO on 05/26/172253 COPY TO: AZAEL HARMAN MD CHEST SINGLE (PORTABLE) [place] [address] Patient Name: ARANZA LOPEZ MR #: [id number] : 10/1970 Age/Sex: 46/M Req #: [id number] Adm Physician: Ordered by: SARA IVERSON MD Report #: [id number] Location: ER Room/Bed: Procedure: DX/CHEST SINGLE (PORTABLE) [...] Vicente on 04/20/2017 12:22 AM Dictated By: SIMONA GODINEZ MD Electronically Sig pedro By: SIMONA GODINEZ MD on 04/20/17 0022 Transcribed By: ADALBERTO on 04/20/17 0 022 COPY TO: SARA IVERSON MD CT CHEST W [place] [address] Patient Name: ARANZA LOPEZ MR #: [id number] : 1970 Age/Sex: 46/M Req #: [id number] Adm Physician: Ordered by: SARA IVERSON MD Report #: [id number] Location: ER Room/Bed: Procedure: [id number] CT/CT CHEST W Exam Date: 8 Exam [...] a pulmonary embol ism. Signed by: Dr. Simona Godinez M.D. on 04/20/2017 12:30 AM Dictated By: SIMONA GODINEZ MD Transcribed By: ADALBERTO on 04/20/1729 COPY TO: Kassandra IVERSON MD
--- NOTE | 2019-07-27 19:24 | Emergency Department Note ---
History of Present Illnes History of Present Illness History of Present Illness This is a 49 year old male with onset of CP substernal radiating to L shoulder since 1800. (+) SOB , neg N/V . 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 Onset (how long ago): hour(s) (2) Location: substernal CP Quality: crushing Radiation: extremity Severity: moderate Onset quality: sudden Duration (how long): hour(s) (2) Timing of current episode: constant Progression: worsening Chronicity: recurrent Context: non-compliance w/ medications Relieving factors: none, other (narcotic pain medicatoin) Exacerbating factors: none Associated symptoms: chest pain, shortness of breath Treatments prior to arrival: none Previous service: tests performed, observation, one or more referrals Past Medical/Family History Physician Review I have reviewed the patient's past medical and family history. Any updates have been documented here. Past Medical History Recent Fever: No Clinical Suspicion of Infectio: No New/Unexplained Change in Ment: No Past Medical History: Hypertension, COPD, CHF, MA, CVA, A-Fib, CAD, Cancer, Seizure Disorder, Anxiety, Depression, Other Mental Illness, GERD, Hyperlipedemia Other Medical History: borderline diabetic, chronic back pain,insomnia, schizoaffective disorder, Bipolar, PTSD, chronic pain disorder, gout, kidney cancer, stomach cancer, atypical chest pain, morbid obesity Past Surgical History: Cholecysctectomy, CABG, Back Surgery Other Surgery: Aortic dissection x3, Left Nephrectomy Social History Smoking Cessation: Current every day smoker Alcohol Use: None Any Illegal Drug Use: No Other Last Tetanus: 2019 Review of Systems Review of Systems Constitutional: no symptoms EENTM: no symptoms Cardiovascular: chest pain Respiratory: dyspnea Gastrointestinal: no symptoms Genitourinary: no symptoms Musculoskeletal: no symptoms Neurological: no symptoms Psychological: no symptoms Endocrine: no symptoms Hematological/Lymphatic: no symptoms Review of other systems All other systems reviewed and negative. Physical Exam Related Data Allergies: Coded Allergies: ketorolac (Verified Allergy, Intermediate, RASH, 04/10/18) tramadol (Verified Allergy, Intermediate, EARS RINGING, 04/10/18) gabapentin (Verified Allergy, Mild, 04/10/18) ampicillin (Verified Allergy, Unknown, 04/10/18) metoclopramide (Verified Allergy, Unknown, 04/10/18) morphine (Verified Allergy, Unknown, 04/10/18) ondansetron (Verified Allergy, Unknown, 04/10/18) Triage Vital Signs Vital Signs Date Time Temp Pulse Resp B/P (MAP) Pulse Ox O2 Delivery O2 Flow Rate FiO2 07/27/19 19:32 97.4 110 16 140/80 99 Vital signs reviewed: Yes Physical Exam CONSTITUTIONAL Constitutional: well-developed, well-nourished, morbidly obese HENT HENT: normocephalic, atraumatic, oropharynx clear/moist, nose normal HENT L/R: left ext ear normal, right ext ear normal EYES Eyes: PERRL, conjunctivae normal NECK Neck: ROM normal PULMONARY Pulmonary: effort normal, breath sounds normal CARDIOVASCULAR Cardiovascular: tachycardia GASTROINTESTINAL Abdominal: soft, nontender, bowel sounds normal GENITOURINARY Genitourinary: exam deferred SKIN Skin: warm, dry MUSCULOSKELETAL Musculoskeletal: ROM normal NEUROLOGICAL Neurological: alert, oriented x 3, no gross motor or sensory deficits PSYCHOLOGICAL Psychological: mood/affect normal, judgement normal Results Laboratory Laboratory Laboratory Tests Test 07/27/19 23:34 07/27/19 19:45 Urine Opiates Screen Negative (NEGATIVE) Urine Methadone Screen Negative (NEGATIVE) Urine Barbiturates Screen Negative (NEGATIVE) Urine Phencyclidine Screen Negative (NEGATIVE) Urine Amphetamines Screen Negative (NEGATIVE) Urine Methamphetamines Screen Negative (NEGATIVE) Urine Benzodiazepines Screen Negative (NEGATIVE) Urine Cocaine Screen Negative (NEGATIVE) Urine Cannabinoids Screen Negative (NEGATIVE) White Blood Count 8.62 x10e3/uL (4.8-10.8) Red Blood Count 4.94 x10e6/uL (4.3-5.7) Hemoglobin 14.5 g/dL (14.0-18.0) Hematocrit 44.3 % (38.2-49.6) Mean Corpuscular Volume 89.7 fL (81-99) Mean Corpuscular Hemoglobin 29.4 pg (28-32) Mean Corpuscular Hemoglobin Concent 32.7 g/dL (31-35) Red Cell Distribution Width 14.0 % (11.7-14.4) Platelet Count 261 x10e3/uL (140-360) Neutrophils (%) (Auto) 64.9 % (38.7-80.0) Lymphocytes (%) (Auto) 26.8 % (18.0-39.1) Monocytes (%) (Auto) 6.8 % (4.4-11.3) Eosinophils (%) (Auto) 0.7 % (0.0-6.0) Basophils (%) (Auto) 0.3 % (0.0-1.0) Neutrophils # (Auto) 5.6 (2.1-6.9) Lymphocytes # (Auto) 2.3 (1.0-3.2) Monocytes # (Auto) 0.6 (0.2-0.8) Eosinophils # (Auto) 0.1 (0.0-0.4) Basophils # (Auto) 0.0 (0.0-0.1) Absolute Immature Granulocyte (auto 0.04 x10e3/uL (0-0.1) Prothrombin Time 12.8 seconds (11.9-14.5) Prothromb Time International Ratio 0.91 Sodium Level 144 mmol/L (136-145) Potassium Level 3.3 mmol/L (3.5-5.1) Chloride Level 102 mmol/L (98-107) Carbon Dioxide Level 24 mmol/L (22-29) Anion Gap 21.3 mmol/L (8-16) Blood Urea Nitrogen 16 mg/dL (7-26) Creatinine 1.19 mg/dL (0.72-1.25) Estimat Glomerular Filtration Rate > 60 ML/MIN (60-) BUN/Creatinine Ratio 13 (6-25) Glucose Level 139 mg/dL (74-118) Calcium Level 9.3 mg/dL (8.4-10.2) Total Bilirubin 0.5 mg/dL (0.2-1.2) Aspartate Amino Transf (AST/SGOT) 25 IU/L (5-34) Alanine Aminotransferase (ALT/SGPT) 35 IU/L (0-55) Alkaline Phosphatase 76 IU/L (40-150) Creatine Kinase 238 IU/L (30-200) Creatine Kinase MB 2.90 ng/mL (0-5.0) Troponin I < 0.001 ng/mL (0-0.300) B-Type Natriuretic Peptide 24.6 pg/mL (0-100) Total Protein 6.9 g/dL (6.5-8.1) Albumin 4.1 g/dL (3.5-5.0) Globulin 2.8 g/dL (2.3-3.5) Albumin/Globulin Ratio 1.5 (0.8-2.0) Lab results reviewed: Yes Imaging Imaging results reviewed: Yes Impressions [place] [address] Patient Name: ARANZA WHITNEY MR #: [id number] : 1970 Age/Sex: 49/M Req #: [id number] Adm Physician: Ordered by: KOTA DILL DO Report #: [id number] Location: ER Room/Bed: Procedure: [id number] DX/CHEST SINGLE (PORTABLE) Exam Date: 07/27/19 Exam Time: 2004 REPORT STATUS: Signed EXAM: CHEST SINGLE (PORTABLE) DATE: 07/27/2019 8:05 PM INDICATION: Chest pain ^ERMD ORDER ^[id number] ^2004 ^Y COMPARISON: Chest x-ray, 10/31/2018 FINDINGS: Lines and tubes: None The cardiac silhouette is mildly enlarged. Mild central pulmonary vascular prominence. No peripheral pulmonary consolidation or pneumothorax. Upper abdomen unremarkable. No acute bony abnormality. Cervical spine fusion hardware is noted IMPRESSION: Mild cardiomegaly and central pulmonary vascular prominence. Signed by: Dr. Amira Padilla M.D. on 07/27/2019 8:57 PM Dictated By: AMIRA PADILLA MD 56 Transcribed By: ADALBERTO on 07/27/192056 COPY TO: KOTA DILL DO~ Procedures 12 Lead ECG Interpretation Dip Tube Assembler Machine: Interpreted by ED physician Date: Jul 27, 2019 Time: 19:35 Rhythm: sinus tachycardia Rate: tachycardia QRS axis: normal ST segments normal: Yes T waves normal: No T waves flattening: V1 Other findings: prolonged QTc interval Q waves: II, III Clinical Impression: abnormal ECG Assessment & Plan Assessment & Plan Final Impression: (1) Chest pain (2) Obesity Assessment & Plan Patient with known history of cardiac aortic disease. EKG, and cardiac enzymes reviewed. Plan to admit for observation Depart Disposition: ADMITTED Last Vital Signs Date Time Temp Pulse Resp B/P (MAP) Pulse Ox O2 Delivery O2 Flow Rate FiO2 07/28/19 02:00 98.8 82 17 95/69 97 Home Meds Active Scripts Aspirin (ASPIR 81) 81 Mg Tablet.dr, 81 MG PO DAILY for 30 Days, #30 Prov:ORACIO IBRAHIM, DO 04/10/18 Reported Medications Potassium Chloride* (K DUR*) 10 Meq Tabcr, 10 MEQ PO DAILY 10/22/18 [Jardiance] 25 MG No Conflict Check, 25 MG PO DAILY 10/22/18 Lamotrigine (LAMOTRIGINE) 25 Mg Tablet, 25 MG PO BID 10/22/18 Spironolactone (SPIRONOLACTONE) 50 Mg Tablet, 50 MG PO DAILY 10/22/18 Ergocalciferol (Vitamin D2) (VITAMIN D2) 50,000 Unit Capsule, 60833 UNITS PO DAILY 10/22/18 Digoxin (DIGOXIN) 125 Mcg Tablet, 125 MCG PO DAILY 10/22/18 Fenofibrate (TRICOR) 145 Mg Tab, 145 MG PO DAILY, #30 TAB 02/09/18 Risperidone (RISPERDAL) 1 Mg Tablet, 2 MG PO BID, #30 TAB 02/09/18 Ranolazine (RANEXA) 500 Mg Tabsr, 500 MG PO BID, #60 TAB 02/09/18 Meloxicam (MOBIC) 15 Mg Tablet, 15 MG PO DAILY 02/09/18 Metformin Hcl (METFORMIN HCL) 1,000 Mg Tablet, 1000 MG PO BID 02/09/18 [Isosorb Starr/Imdur] No Conflict Check, 30 MG PO DAILY 02/09/18 Promethazine Hcl (PROMETHAZINE HCL) 25 Mg Tablet, 25 MG PO Q6H PRN for NASAL CONGESTION, TAB 04/20/17 Lorazepam (LORAZEPAM) 0.5 Mg Tablet, 0.5 MG PO Q8HR PRN for ANXIETY, TAB 04/20/17 Carisoprodol (SOMA) 350 Mg Tablet, 350 MG PO Q8H PRN for CRAMPS, TAB 04/20/17 Rivaroxaban (XARELTO) 20 Mg Tablet, DAILY 04/20/17 Trazodone Hcl (TRAZODONE HCL) 50 Mg Tablet, 150 MG PO QHS, #30 TAB 04/20/17 Clopidogrel Bisulfate* (PLAVIX) 75 Mg Tablet, 75 MG PO DAILY, #30 TAB 04/20/17 Pantoprazole Sodium* (PROTONIX) 40 Mg Tablet.dr, 20 MG PO DAILY, TAB 04/20/17 Metoprolol Tartrate (METOPROLOL TARTRATE) 25 Mg Tablet, 25 MG PO BID, TAB 04/20/17 Lamotrigine (LAMICTAL) 25 Mg Tab, MG PO BID 04/20/17 Levetiracetam (KEPPRA) 500 Mg Tablet, 500 MG PO BID, TAB 04/20/17 Duloxetine Hcl (CYMBALTA) 30 Mg Capsule.dr, 40 MG PO BID, #30 CAP 04/20/17 Doxepin Hcl (DOXEPIN HCL) 25 Mg Capsule, 100 MG PO qhs, #30 CAP 04/20/17 Atorvastatin Calcium (ATORVASTATIN CALCIUM) 20 Mg Tablet, 40 MG PO HS, #30 TAB 04/20/17 Furosemide (FUROSEMIDE) 40 Mg Tablet, 80 MG PO BID, #30 TAB 04/20/17 Medications in the ED Aspirin 81 mg PRN ONCE PO ; Start 07/27/19 at 19:30; Stop 07/27/19 at 19:31; Status UNV Nitroglycerin 1 gm ONCE STAT TOP Last administered on 07/27/19at 19:54; Admin Dose 1 GM; Start 07/27/19 at 19:37; Stop 07/27/19 at 19:38; Status DC Ondansetron HCl 4 mg NOW STAT IV ; Start 07/27/19 at 19:57; Stop 07/28/19 at 01:51; Status DC Hydromorphone HCl 0.5 mg ONCE STAT IV ; Start 07/27/19 at 19:57; Stop 07/27/19 at 20:13; Status DC Hydromorphone HCl 1 mg Q3H PRN IV SEVERE PAIN (7-10); Start 07/27/19 at 23:00; Stop 08/03/19 at 22:59 Ondansetron HCl 4 mg Q4H PRN IV NAUSEA AND VOMITING; Start 07/27/19 at 23:00; Stop 07/28/19 at 01:51; Status DC Sodium Chloride 1,000 ml @ 125 mls/hr Q8H IV ; Start 07/27/19 at 23:00; Stop 08/26/19 at 22:59 Aspirin 81 mg PRN ONCE PO ; Start 07/27/19 at 23:00; Stop 07/27/19 at 23:01; KOTA Caballero DO Jul 27, 2019 19:24
[2019-07-27] MEDS ORDERED: ASPIRIN 81 MG CHEW TAB PO ONE ×2 (19:30→23:00)
[2019-07-27] MEDS ORDERED: NITROGLYCERIN 2% OINT 1 GM PKT TOP STA (19:37)
[2019-07-27] MEDS ORDERED: HYDROMORPHONE 1MG/1ML INJ IV STA (19:57)
[2019-07-27] MEDS ORDERED: ONDANSETRON HCL INJ 2MG/ML 2ML 2 MG/ML VIAL IV STA (19:57)
[2019-07-27 20:38] LABS: BASOPHILS % 0.3 % (0.0-1.0); EOSINOPHILS # (AUTO) 0.1 (0.0-0.4); EOSINOPHILS % 0.7 % (0.0-6.0); HEMATOCRIT 44.3 % (38.2-49.6); HEMOGLOBIN 14.5 g/dL (14.0-18.0); LYMPHOCYTES # (AUTO) 2.3 (1.0-3.2); LYMPHOCYTES % 26.8 % (18.0-39.1); MEAN CORPUSCULAR HEMOGLOBIN 29.4 pg (28-32); MEAN CORPUSCULAR HGB CONC 32.7 g/dL (31-35); MEAN CORPUSCULAR VOLUME 89.7 fL (81-99); MONOCYTES # (AUTO) 0.6 (0.2-0.8); MONOCYTES % 6.8 % (4.4-11.3); NEUTROPHILS # (AUTO) 5.6 (2.1-6.9); NEUTROPHILS % 64.9 % (38.7-80.0); PLATELET COUNT 261 x10e3/uL (140-360); RED BLOOD COUNT 4.94 x10e6/uL (4.3-5.7)
[2019-07-27 20:57] LABS: INR 0.91; PROTHROMBIN TIME 12.8 seconds (11.9-14.5)
--- NOTE | 2019-07-27 21:01 | Diagnostic Imaging Report ---
EXAM: CHEST SINGLE (PORTABLE) DATE: 07/27/2019 8:05 PM INDICATION: Chest pain ^ERMD ORDER ^[id number] ^2004 ^Y COMPARISON: Chest x-ray, 10/31/2018 FINDINGS: Lines and tubes: None The cardiac silhouette is mildly enlarged. Mild central pulmonary vascular prominence. No peripheral pulmonary consolidation or pneumothorax. Upper abdomen unremarkable. No acute bony abnormality. Cervical spine fusion hardware is noted IMPRESSION: Mild cardiomegaly and central pulmonary vascular prominence. Signed by: Dr. Zach Harrell M.D. on 07/27/2019 8:57 PM
[2019-07-27 21:56] LABS: ALANINE AMINOTRANSFERASE 35 IU/L (0-55); ALBUMIN 4.1 g/dL (3.5-5.0); ALBUMIN/GLOBULIN RATIO 1.5 (0.8-2.0); ALKALINE PHOSPHATASE 76 IU/L (40-150); ANION GAP 21.3 mmol/L (8-16); BLOOD UREA NITROGEN 16 mg/dL (7-26); BUN/CREATININE RATIO 13 (6-25); CALCIUM 9.3 mg/dL (8.4-10.2); CARBON DIOXIDE 24 mmol/L (22-29); CHLORIDE 102 mmol/L (98-107); CREATINE KINASE 238 IU/L (30-200); CREATININE, SERUM 1.19 mg/dL (0.72-1.25); EST GLOMERULAR FILTRATION RATE > 60 ML/MIN (60-); GLUCOSE 139 mg/dL (74-118); POTASSIUM 3.3 mmol/L (3.5-5.1); SODIUM 144 mmol/L (136-145)
[2019-07-27] MEDS ORDERED: ONDANSETRON HCL INJ 2MG/ML 2ML 2 MG/ML VIAL IV PRN (23:00)
[2019-07-27 23:45] LABS: AMPHETAMINES SCREEN,URINE NEGATIVE (NEGATIVE); BENZODIAZEPINES SCREEN,URINE NEGATIVE (NEGATIVE); PHENCYCLIDINE SCREEN,URINE NEGATIVE (NEGATIVE)
[2019-07-28] VITALS (9 sets, daily range): BP systolic 103–141; BP diastolic 59–86
--- OUTSIDE RECORDS SUMMARY | 2019-07-28 00:18 | XMS REPORT | Clinical Summary ---
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 . Description:plate in the neck [...] Routine 09/24/2018 INTERPRETATION 7:32 PM CDT after 07/27/2018 Results * Estimated GFR (09/24/2018 8:52 PM CDT) [facility] Estimated GFR 71 mL/min/1.73 m2 LYNDON Comment: ANTONIO GLOVER [facility] Interpretation G1 >=90 Normal or high G2 [...] 2014. Specimen Plasma specimen Performing Organization Address [facility] [place] Ph one Number [facility] DEPARTMENT [address] [place] [address] PATHOLOGY AND [facility] [place] ANTONIO GLOVER [address] [place] [address] * Troponin (09/24/2018 8:52 PM CDT) [facility] Troponin <0.006 0.000 - 0.040 ng/mL LYNDON Comment: ANTONIO GLOVER [facility] changed methodology effective: 06/24/2018 at 10:00 am The new method has a 99th percentile cutoff of 0.040 ng/mL Specimen Plasma specimen Performing Organization Address [facility] [place] Ph one Number [facility] DEPARTMENT [address] [place] [address] PATHOLOGY AND [facility] [place] ANTONIO GLOVER [address] [place] [address] * Partial thromboplastin time, activated (09/24/2018 8:52 PM CDT) [facility] PTT 28.8 23.0 - 36.0 sec LYNDON Comment: ANTONIO GLOVER PTT therapeutic range for [facility] unfractionated heparin is 61.0-112.0 seconds which corresponds to Anti-Xa 0.3-0.7 U/ml. Specimen Blood Performing Organization Address [facility] Ph one Number [facility] DEPARTMENT OF [address] [place] [address] [place], [place] [address] PATHOLOGY AND GENOMIC MEDICINE [address] * Prothrombin time with INR (09/24/2018 8:52 PM CDT) Pathologist [facility] Prothrombin 12.5 11.5 - 14.5 sec [facility] INR 1.0 [place]YNDON Comment: [facility] [employer] Normalized [facility] Ratio (INR) is a therapeutic monitoring tool for patients who are stable on oral anticoagulant therapy. An INR of 2.0-3.0 is suggested for deep vein thrombosis/pulmonary embolism. Specimen Blood Performing Organization Address [facility] [place] Ph one Number [facility] DEPARTMENT OF [facility] [place] [phone] PATHOLOGY AND GENOMIC MEDICINE [address] John [address] * CBC with platelet and differential (09/24/2018 8:52 PM CDT) Pathologist [facility] WBC 7.66 4.50 - 11.00 k/uL [facility] RBC 4.07 (L) 4.40 - 6.00 m/uL [facility] HGB 12.4 (L) 14.0 - 18.0 g/dL [facility] HCT 37.7 (L) 41.0 - 51.0 % [facility] MCV 92.6 82.0 - 100.0 fL [facility] MCH 30.5 27.0 - 34.0 pg [facility] MCHC 32.9 31.0 - 37.0 g/dL [facility] RDW - SD 46.9 37.0 - 55.0 fL [facility] MPV 9.8 8.8 - 13.2 fL [facility] Platelet count 203 150 - 400 k/uL [facility] Nucleated RBC 0.30 /100 WBC [facility] Neutrophils 61.5 39.0 - 69.0 % [facility] Lymphocytes 26.8 25.0 - 45.0 % [facility] Monocytes 6.7 0.0 - 10.0 % [facility] Eosinophils 2.7 0.0 - 5.0 % [facility] Basophils 0.5 0.0 - 1.0 % [facility] Specimen Blood Performing Organization Address City/[facility] Ph one Number [facility] [place] [id number] [place] [address] [place], [place] [address] PATHOLOGY AND GENOMIC MEDICINE [facility] [place] [id number] [place] [address] * B natriuretic peptide (09/24/2018 8:52 PM CDT) BNP 25 0 - 100 pg/mL [facility] Specimen Blood Performing Organization Address City/[facility] [place] Ph one Number [facility] [place] [id number] [place] [address] [place], [place] [address] PATHOLOGY AND GENOMIC MEDICINE [facility] [place], [place] [id number] [place] [address] * Comprehensive metabolic panel (09/24/2018 8:52 PM CDT) Sodium 138 135 - 148 mEq/L [facility] Potassium 4.0 3.5 - 5.0 mEq/L [facility] Chloride 98 98 - 112 mEq/L [facility] CO2 29 24 - 31 mEq/L [facility] Anion gap 11@ANIO 7 - 15 mEq/L [facility] BUN 18 6 - 20 mg/dL [facility] Creatinine 1.20 0.70 - 1.20 mg/dL [facility] Glucose 268 (H) 65 - 99 mg/dL [facility] Calcium 9.2 8.3 - 10.2 mg/dL [facility] Protein 6.3 6.3 - 8.3 g/dL [place] Comment: [facility] 4.6-7.0 g/dL 1 week 4.4-7.6 g/dL 7 months-1year 5.1-7.3 g/dL 1-2 years 5.6-7.5 g/dL >3 years 6.0-8.0 g/dL 18-150 6.3-8.3 g/dL Albumin 3.6 3.5 - 5.0 g/dL [facility] A/G ratio 1.3 0.7 - 3.8 [facility] Alkaline 121 40 - 129 U/L [place] phosphatase [facility] AST 24 10 - 50 U/L [facility] ALT 21 5 - 50 U/L [facility] Total bilirubin 0.3 0.0 - 1.2 mg/dL [facility] Specimen Plasma specimen Performing Organization Address [facility] one Number [facility] [place] [address] [place] [address] PATHOLOGY AND GENOMIC MEDICINE [facility] [place] [address] [address] [place] [phone] [facility] * XR Chest 1 Vw (09/24/2018 8:10 PM CDT) Specimen Narrative Performed At EXAMINATION: XR CHEST 1 VW HM [facility] CLINICAL HISTORY: Chest pain acute nonspecific low prob CAD COMPARISON: May 17, 2018 . IMPRESSION: 1. Heart size is normal. Median abraham otomy wires overlie the midline. 2. Interval left basilar atelectasis. 3. No pneumothorax. 4. Osseous structures are intact. [id number] Procedure Note Hm Interface, Radiology Results Incoming - 09/24/2018 8:24 PM CDT EXAMINATION: XR CHEST 1 VW CLINICAL HISTORY: Chest pain acute nonspecific low prob CAD COMPARISON: May 17, 2018 . IMPRESSION: 1. Heart size is normal. Median sternot adore wires overlie the midline. 2. Interval left basilar atelectasis. 3. No pneumothorax. 4. Osseous structures are intact. [id number] Performing Organization Address [facility] one Number [facility] [address] [place] [address] * POC glucose (09/24/2018 7:35 PM CDT) POC glucose 299 (H) 65 - 99 mg/dL [place]ON Comment: [facility] Meter ID: [id number] [facility] Wall Mirror Department Supervisor: Shun Garcia (Learnerator) Specimen Performing Organization Address City/[facility] Ph one Number [facility] [place] [place] [address] [place] [address] PATHOLOGY AND GENOMIC MEDICINE [facility] [place] [address] [place] [phone] [facility] * ECG 12 lead (09/24/2018 [...] Performing Organization Address City/State/Zipcode Ph one Number [facility] [address] [place] [address] * ECG ED Preliminary Interpretation - Not an Order (09/24/2018 7:32 PM CDT) Narrative Performed At Pepito Slade MD 09/26/19 19 12:13 AM ECG ED Preliminary Interpretation - Not an Order Performed by: Pepito Slade M D Authorized by: Pepito Slade MD ECG reviewed by ED Physician in the abs ence of a shampooer: yes (2007) Interpretation: Interpretation: normal Rate: ECG rate: 95 ECG rate assessment: normal Rhythm: Rhythm: sinus rhythm Ectopy: Ectopy: none QRS: QRS axis: Normal QRS intervals: Normal Conduction: Conduction: normal ST segments: ST segments: Normal T waves: T waves: normal Other findings: Other findings: prolonged qTc interva l after 07/27/2018 Insurance Type Payer Benefit Subscriber ID Effective Phone Address Plan / Dates Group 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
--- OUTSIDE RECORDS SUMMARY | 2019-07-28 00:18 | XMS REPORT | Clinical Summary ---
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 COMMUNITY Present [id number] [place] [address] Advance Directives Date Inactivated Comments Code Status Date Activated 07/04/2010 9:05 PM Full Code 07/03/2010 10:11 AM
--- OUTSIDE RECORDS SUMMARY | 2019-07-28 00:18 | XMS REPORT | Clinical Summary ---
Author Author [facility] Address Unknown Phone Unavailable Care Team Providers Care Behavioral Interventionist Name Role Phone Janet Stewart MD PCP Unavailable Allergies Comments Active Allergy Reactions Severity Noted Date Ampicillin Rash Low 01/21/2016 Baclofen 12/25/2016 Prochlorperazine 01/05/2017 Edisylate Cyclobenzaprine 12/25/2016 Caused nausea and Syncope ( When he passed out he broke his neck ) Cetronia Analogues 01/05/2017 Metoclopramide Hcl Rash Low 01/22/2016 [...] Problem Noted Date Coronary artery disease involving lone pine coronary art lacey of lone pine heart 01/03/2019 with unstable angina pectoris Other [...] and tingling of left leg; Morbid obesity ([facility]); Essential hypertension; PAF (paroxysmal atrial fibrillation) ([facility]); Cigarette nicotine dependence with other nicotine-induced disorder 02/24/2019 Emergency Emergency Medicine 02/23/2019 Orders Only General Internal Pr dicine 02/23/2019 Travel Momo Dougherty MD L CATH & PCI 01/05/2019 Surgery 01/03/2019 Orders Only General Internal Pr dicine [place] MD Parhizgar, Alireza, MD Lin, Fang-Ying, MD Chest pain with high risk of acute coron constance syndrome (Primary Dx); Atrial fibrillation, unspecified type (HCC); Pulmonary emphysema, unspecified emphysema type (HCC); Coronary artery disease involving 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 unstable angina pectoris (HCC); Acute chest pain; Essential hypertension; History of deep vein thrombosis (DVT) of lower extremity; Hx of abdominal aortic aneurysm; Bilateral swelling of feet; Acute on chronic diastolic congestive heart failure (HCC) 01/02/2019 [facility] Internal Pr dicine - Encounter 01/06/2019 01/02/2019 Travel 12/26/2018 [...] unspecified vomiting type; Coronary artery disease involving 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 angina pectoris (HCC); Atrial fibrillation, [...] General Internal Me dicine 11/30/2018 Travel after 07/27/2018 Family History Medical History Relation [...] Taken Vital Sign Reading 02/24/2019 12:45 PM [employer] Blood Pressure 117/66 02/24/2019 12:45 PM [employer] Pulse 91 02/24/2019 12:49 PM [employer] Temperature 37.2 C (98.9 F) 02/24/2019 11:15 AM [employer] Respiratory Rate 19 02/24/2019 12:45 PM [employer] Oxygen Saturation 97% 01/06/2019 7:18 AM [employer] Inhaled Oxygen 21% Concentration 02/23/2019 11:03 PM [employer] Weight 186 kg (410 lb) 02/23/2019 11:03 PM [employer] Height 188 cm (6' 2") 02/23/2019 11:03 PM [employer] Body Mass Index 52.64 Plan of Treatment Health Maintenance Due Date Last Done Comments PNEUMOCOCCAL VACCINE 2-64 1976 YEARS AT RISK (1 of 1 - PPSV23) HEMOGLOBIN A1C 06/02/2019 12/01/2018 INFLUENZA VACCINE (Season 10/20/2019 Ended) Procedures Comments Procedure Name Priority Date/Time Associated Diag nosis ED ECG INTERPRETATION Routine 02/24/2019 12:52 PM [employer] TROPONIN I STAT 02/24/2019 9:44 AM [employer] CT BRAIN WITHOUT IV STAT 02/24/2019 CONTRAST 8:32 AM [employer] CBC W/PLT COUNT & AUTO STAT 02/24/2019 DIFFERENTIAL 12:46 AM [employer] TROPONIN I STAT 02/24/2019 12:46 AM [employer] CBC W/PLT COUNT & AUTO STAT 02/24/2019 DIFFERENTIAL 12:46 AM [employer] BASIC METABOLIC PANEL (7) STAT 02/24/2019 12:46 AM [employer] XR CHEST 1 VIEW STAT 02/23/2019 PORTABLE/BEDSIDE 11:47 PM [employer] ECG 12-LEAD STAT 02/23/2019 10:45 PM [employer] VASCULAR DIAGRAM -SCAN 01/14/2019 3:50 PM [employer] RHYTHM STRIP - SCAN 01/07/2019 11:40 AM [employer] REPORT OF PROCEDURE - 01/07/2019 ENDOSCOPY SCAN 11:40 AM [employer] CARDIAC CATH REPORT - 01/07/2019 SCAN 11:40 AM [employer] POCT-GLUCOSE METER Routine 01/06/2019 12:06 PM [employer] POCT-GLUCOSE METER Routine 01/06/2019 7:08 AM [employer] BASIC METABOLIC PANEL (7) Routine 01/06/2019 4:48 AM [employer] POCT-GLUCOSE METER Routine 01/05/2019 11:19 PM [employer] L CATH & PCI 01/05/2019 Chest pain, unspeci fied 5:54 PM [employer] type POCT-GLUCOSE METER Routine 01/05/2019 4:40 PM [employer] APTT Routine 01/05/2019 11:52 AM [employer] POCT-GLUCOSE METER Routine 01/05/2019 11:35 AM [employer] POCT-GLUCOSE METER Routine 01/05/2019 7:13 AM [employer] CBC W/PLT COUNT & AUTO Routine 01/05/2019 DIFFERENTIAL 1:26 AM [employer] APTT Routine 01/05/2019 1:26 AM [employer] CBC W/PLT COUNT & AUTO Routine 01/05/2019 DIFFERENTIAL 1:26 AM [employer] PHOSPHORUS Routine 01/05/2019 1:26 AM [employer] CALCIUM, IONIZED Routine 01/05/2019 1:26 AM [employer] MAGNESIUM Routine 01/05/2019 1:26 AM [employer] BASIC METABOLIC PANEL (7) Routine 01/05/2019 1:26 AM [employer] POCT-GLUCOSE METER Routine 01/04/2019 9:02 PM [employer] APTT Routine 01/04/2019 6:08 PM [employer] POCT-GLUCOSE METER Routine 01/04/2019 4:21 PM [employer] POCT-GLUCOSE METER Routine 01/04/2019 12:29 PM [employer] APTT Routine 01/04/2019 10:50 AM [employer] POCT-GLUCOSE METER Routine 01/04/2019 7:31 AM [employer] CBC W/PLT COUNT & AUTO Routine 01/04/2019 DIFFERENTIAL 2:43 AM [employer] APTT Routine 01/04/2019 2:43 AM [employer] CBC W/PLT COUNT & AUTO Routine 01/04/2019 DIFFERENTIAL 2:43 AM [employer] PHOSPHORUS Routine 01/04/2019 2:43 AM [employer] CALCIUM, IONIZED Routine 01/04/2019 2:43 AM [employer] MAGNESIUM Routine 01/04/2019 2:43 AM [employer] BASIC METABOLIC PANEL (7) Routine 01/04/2019 2:43 AM [employer] POCT-GLUCOSE METER Routine 01/03/2019 10:11 PM [employer] APTT Routine 01/03/2019 7:54 PM [employer] POCT-GLUCOSE METER Routine 01/03/2019 5:13 PM [employer] APTT Routine 01/03/2019 1:29 PM [employer] TROPONIN I Routine 01/03/2019 1:29 PM [employer] POCT-GLUCOSE METER Routine 01/03/2019 1:25 PM [employer] POCT-GLUCOSE METER Routine 01/03/2019 7:47 AM [employer] ECG 12-LEAD Routine 01/03/2019 6:58 AM [employer] Procedure Note - Interface, External Ris In - 01/03/2019 7:02 AM [employer] Ventricula r Rate 99 BPM Atrial Rate 99 BPM P-R Interval 166 ms QRS Duration 92 ms Q-T Interval 392 ms QTC Calculatio n(Bazett) 503 ms P [place] 59 degrees R [place] 13 degrees T [place] 67 degrees Normal sinus rhythm Prolonged QT Abnormal ECG When compared with ECG of 9 19:45, Criteria for Inferior infarct are no longer Present ECG 12-LEAD STAT 01/03/2019 6:58 AM [employer] CBC (HEMOGRAM ONLY) Routine 01/03/2019 6:29 AM [employer] TROPONIN I Routine 01/03/2019 4:44 AM [employer] MAGNESIUM Routine 01/03/2019 4:44 AM [employer] BASIC METABOLIC PANEL (7) Routine 01/03/2019 4:44 AM [employer] POCT-GLUCOSE METER Routine 01/03/2019 3:06 AM [employer] APTT Routine 01/03/2019 2:55 AM [employer] CBC W/PLT COUNT & AUTO STAT 01/02/2019 DIFFERENTIAL 9:48 PM [employer] TROPONIN I STAT 01/02/2019 9:48 PM [employer] B-TYPE NATRIURETIC FACTOR STAT 01/02/2019 (BNP) 9:48 PM [employer] CBC W/PLT COUNT & AUTO STAT 01/02/2019 DIFFERENTIAL 9:48 PM [employer] BASIC METABOLIC PANEL (7) STAT 01/02/2019 9:48 PM [employer] XR CHEST 1 VIEW STAT 01/02/2019 PORTABLE/BEDSIDE 9:30 PM [employer] ECG 12-LEAD Timed 01/02/2019 8:51 PM [employer] RHYTHM STRIP - SCAN 01/01/2019 10:34 AM [employer] TRANSFUSION SERVICE 12/30/2018 REPORT - SCAN 5:50 PM [employer] REPORT OF PROCEDURE - 12/30/2018 ENDOSCOPY SCAN 4:11 PM [employer] REPORT OF PROCEDURE - 12/30/2018 ENDOSCOPY SCAN 12:50 PM [employer] POCT-GLUCOSE METER Routine 12/30/2018 8:19 AM [employer] POCT-GLUCOSE METER Routine 12/29/2018 9:28 PM [employer] POCT-GLUCOSE METER Routine 12/29/2018 5:17 PM [employer] POCT-GLUCOSE METER Routine 12/29/2018 12:47 PM [employer] POCT-GLUCOSE METER Routine 12/29/2018 7:51 AM [employer] ABORH, MANUAL STAT 12/29/2018 4:39 AM [employer] TYPE AND SCREEN, Routine 12/29/2018 AUTOMATED 4:12 AM [employer] POCT-GLUCOSE METER Routine 12/28/2018 9:25 PM [employer] POCT-GLUCOSE METER Routine 12/28/2018 5:53 PM [employer] POCT-GLUCOSE METER Routine 12/28/2018 2:05 PM [employer] POCT-GLUCOSE METER Routine 12/28/2018 8:18 AM [employer] CBC W/PLT COUNT & AUTO Routine 12/28/2018 DIFFERENTIAL 4:40 AM [employer] BASIC METABOLIC PANEL (7) Routine 12/28/2018 4:40 AM [employer] CBC W/PLT COUNT & AUTO Routine 12/28/2018 DIFFERENTIAL 4:40 AM [employer] PHOSPHORUS Routine 12/28/2018 4:40 AM [employer] MAGNESIUM Routine 12/28/2018 4:40 AM [employer] POCT-GLUCOSE METER Routine 12/27/2018 9:24 PM [employer] NM CARDIAC PET PERFUSION STAT 12/27/2018 REST AND/OR STRESS 1:35 PM [employer] TREADMILL Routine 12/27/2018 TOLERANCE(NON-NUCLEAR 1:30 PM [employer] TREADMILL) POCT-GLUCOSE METER Routine 12/27/2018 8:55 AM [employer] POCT-GLUCOSE METER Routine 12/26/2018 7:52 PM [employer] POCT-GLUCOSE METER Routine 12/26/2018 4:41 PM [employer] TROPONIN I Routine 12/26/2018 10:20 AM [employer] RAPID DRUG SCREEN, URINE Routine 12/26/2018 6:57 AM [employer] POCT-GLUCOSE METER Routine 12/26/2018 5:56 AM [employer] CBC W/PLT COUNT & AUTO Routine 12/26/2018 DIFFERENTIAL 5:54 AM [employer] CBC W/PLT COUNT & AUTO Routine 12/26/2018 DIFFERENTIAL 5:54 AM [employer] PHOSPHORUS Routine 12/26/2018 5:54 AM [employer] MAGNESIUM Routine 12/26/2018 5:54 AM [employer]ER HEPATIC FUNCTION PANEL Routine 12/26/2018 5:54 AM [employer] BASIC METABOLIC PANEL (7) Routine 12/26/2018 5:54 AM [employer] TROPONIN I Routine 12/26/2018 5:54 AM [employer] XR CHEST 1 VIEW STAT 12/25/2018 PORTABLE/BEDSIDE 8:02 PM [employer] CBC W/PLT COUNT & AUTO STAT 12/25/2018 DIFFERENTIAL 7:52 PM [employer] D-DIMER STAT 12/25/2018 7:52 PM [employer] B-TYPE NATRIURETIC FACTOR STAT 12/25/2018 (BNP) 7:52 PM [employer] TROPONIN I STAT 12/25/2018 7:52 PM [employer] CBC W/PLT COUNT & AUTO STAT 12/25/2018 DIFFERENTIAL 7:52 PM [employer] BASIC METABOLIC PANEL (7) STAT 12/25/2018 7:52 PM [employer] ECG 12-LEAD STAT 12/25/2018 7:45 PM [employer] RHYTHM STRIP - SCAN 12/23/2018 12:43 PM [employer] POCT-GLUCOSE METER Routine 12/10/2018 5:44 PM CDT [...] ms QTC Calculatio n(Bazett) 461 ms P [place] 70 degrees R [place] 28 degrees T [place] 57 degrees Normal sinus rhythm Inferior infarct [...] 12-LEAD STAT 11/30/2018 9:38 PM CDT after 07/27/2018 Results * ECG/EKG Interpretation (02/24/2019 12:52 PM [employer]) Only the most recent of 3 results within the time period is included. Narrative Performed At Justin Ruelas MD 02/25/2019 11:33 AM ECG/EKG Interpretation Date/Time: 02/23/2019 10:45 PM Performed by: Jutsin Ruelas MD Authorized by: Justin Ruelas MD The ECG was interpreted by ED physician . The ECG is interpreted as sinus rhythm. Heart rate is 90 BPM. ECG reviewed and does not meet STEMI cr iteria. Patient tolerance: Patient tolerated the procedure well with no im mediate complications Comments: NO ACUTE ISCHEMIC CHANGES * Troponin I (02/24/2019 9:44 AM [employer]) Only the most recent of 14 results within the time period is included. Troponin I <0.01 0.00 - 0.03 ng/mL [facility] Specimen Blood Narrative Performed At Troponin I (TnI) levels must be interpreted in the co ntext of the presenting [facility] symptoms and the clinical findings. Elevated TnI leve ls indicate myocardial [facility] damage, but are not specific for ischem ic heart disease. Elevated TnI levels are seen in patients with other cardiac con ditions (including myocarditis and congestive heart failure), and slight T nI elevations occur in patients with other conditions, including sepsis, astrid al failure, acidosis, acute neurological disease, and persistent tachyarrhythmia . Performing Organization Address City/State/Zipcode Ph one Number [facility] [address] [place], [place] [address] [facility] * CT brain without IV contrast (02/24/2019 8:32 AM [employer]) Specimen Narrative Performed At FINAL REPORT [facility], BRAIN, WITHOUT CONTRAST CLINICAL INDICATION:LEFT LEG [...] Report Verified Date/Time: 0 08:57:26 Reading Location: [facility] [employer] Reading Room Procedure Note Interface, External Ris In - 02/24/2019 8:59 AM [employer] FINAL REPORT CT, BRAIN, WITHOUT CONTRAST CLINICAL [...] Report Verified Date/Time: 02/24/2019 08:57:26 Reading Location: [facility] Radiology Reading Room Performing Organization Address City/State/Zipcode Ph one Number [facility] * CBC with platelet count + automated diff (02/24/2019 12:46 AM [employer]) Only the most recent of 12 results within the time period is included. WBC 8.0 3.5 - 10.5 K/L [facility] RBC 4.67 4.63 - 6.08 M/L [facility] Hemoglobin 14.2 13.7 - 17.5 GM/DL [facility] Hematocrit 42.9 40.1 - 51.0 % [facility] MCV 91.9 79.0 - 92.2 fL [facility] MCH 30.4 25.7 - 32.2 pg [facility] MCHC 33.1 32.3 - 36.5 GM/DL [facility] RDW 14.2 11.6 - 14.4 % [facility] Platelets 220 150 - 450 K/CU MM [facility] MPV 9.8 9.4 - 12.4 fL [facility] nRBC 0 0 - 0 /100 WBC [facility] % Neutros 66 % [facility] % Lymphs 22 % [facility] % Monos 9 % [facility] % Eos 2 % [facility] % Baso 1 % [facility] # Neutros 5.28 1.78 - 5.38 K/L [facility] # Lymphs 1.78 1.32 - 3.57 K/L [facility] # Monos 0.71 0.30 - 0.82 K/L [facility] # Eos 0.14 0.04 - 0.54 K/L [facility] # Baso 0.04 0.01 - 0.08 K/L [facility] Immature 0 0 - 1 % [facility] Granulocytes-Relative [facility] Specimen Blood Performing Organization Address City/State/[facility] Ph one Number [facility] [address] [place], [place] [address] [place] * Basic Metabolic Panel (02/24/2019 12:46 AM [employer]) Only the most recent of 13 results within the time period is included. Sodium 137 136 - 145 meq/L [facility] Potassium 3.9 3.5 - 5.1 meq/L [facility] Chloride 105 98 - 107 meq/L [facility] CO2 23 22 - 29 meq/L [facility] BUN 10 7 - 21 mg/dL [facility] Creatinine 0.93 0.57 - 1.25 mg/dL [facility] Glucose 115 (H) 70 - 105 mg/dL [facility] Calcium 9.2 8.4 - 10.2 mg/dL [facility] EGFR 87Comment: ESTIMATED GFR IS mL/min/1.73 sq m [facility] NOT ACCURATE CREATININE [facility] CLEARANCE IN PREDICTING GLOMERULAR FILTRATION RATE. ESTIMATED GFR IS NOT APPLICABLE FOR DIALYSIS PATIENTS. Specimen Blood Performing Organization Address City/[facility] one Number [facility] [address] [place], [place] [address] [place] * XR chest 1 view portable / bedside (02/23/2019 11:47 PM [employer]) Only the most recent of 4 results [...] External Ris In - 02/24/2019 12:04 AM [employer] FINAL REPORT RAD, CHEST, 1 VIEW, NON [...] size. The osseous structures appear intact. Signed: eJz Aguilar MD Report Verified Date/Time: 02/24/2019 00:02:07 Performing Organization Address City/State/Zipcode Ph one Number [facility] * ECG 12 lead (02/23/2019 10:45 PM [employer]) Only the most recent of 7 results within the time period is included. Specimen Narrative Performed At Ventricular Rate 90 BPM GE MUSE Atrial Rate 90 BPM P-R Interval 164 ms QRS Duration 92 ms Q-T Interval 402 ms QTC Calculation(Bazett) 491 ms P [place] 57 degrees R [place] 13 degrees T [place] 45 degrees Normal sinus rhythm Prolonged QT Abnormal ECG When compared with ECG of 03-JAN-2019 0 6:58, No significant change was found Confirmed by MD NAHEED, ROSE ([id number] ) on 02/24/2019 7:00:21 AM Procedure Note Interface, External Ris In - 02/24/2019 7:00 AM [employer] Ventricular Rate 90 BPM Atrial Rate 90 BPM P-R Interval 164 ms QRS Duration 92 ms Q-T Interval 402 ms QTC Calculation(Bazett) 491 ms P [place] 57 degrees R [place] 13 degrees T [place] 45 degrees Normal sinus rhythm Prolonged QT Abnormal ECG When compared with ECG of 03-JAN-2019 06:58, No significant change was found Confirmed by MD NAHEED, ROSE ([id number]) on 02/24/2019 7:00:21 AM Performing Organization Address [facility] one Number GE MUSE * VASCULAR DIAGRAM -SCAN (01/14/2019 3:50 PM [employer]) Narrative Performed At This result has an attachment that is n ot available. * RHYTHM STRIP - SCAN (01/07/2019 11:40 AM [employer]) Only the most recent of 5 results within the time period is included. Narrative Performed At This result has an attachment that is n ot available. * EKG-SCANNED (01/07/2019 11:40 AM [employer]) Only the most recent of 5 results within the time period is included. Narrative Performed At This result has an attachment that is n ot available. * CARDIAC CATH REPORT - SCAN (01/07/2019 11:40 AM [employer]) Narrative Performed At This result has an attachment that is n ot available. * POC-Glucose meter (01/06/2019 12:06 PM [employer]) Only the most recent of 34 results within the time period is included. POC-Glucose Meter 257 (H)Comment: : TESTED AT 70 - 110 mg/dL [facility] [address] [place] [id number]: Barrel Bander/Melter Assistant ID = [id number] for Queen Cardona Specimen Blood Performing Organization Address [facility] one Number [facility] [address] [place], [place] [address] [facility] * aPTT (01/05/2019 11:52 AM [employer]) Only the most recent of 8 results within the time period is included. PTT 48.9 (H) 22.5 - 36.0 seconds [facility] Specimen Blood Performing Organization Address [facility] one Number [facility] [address] [place], [place] [address] [place] * Calcium, Ionized (01/05/2019 1:26 AM [employer]) Only the most recent of 2 results within the time period is included. Calcium, Ion 1.10 (L) 1.12 - 1.27 mmol/L [facility] pH, Blood 7.43 [facility] Specimen Blood Performing Organization Address [facility] Ph one Number [address] [address] [place] * Phosphorus (01/05/2019 1:26 AM [employer]ER) Only the most recent of 4 results within the time period is included. Phosphorus 4.5 2.3 - 4.7 mg/dL [facility] Specimen Blood Performing Organization Address [facility] Ph one Number [place] [phone] [place] * Magnesium (01/05/2019 1:26 AM [employer]ER) Only the most recent of 8 results within the time period is included. Magnesium 2.0 1.6 - 2.6 mg/dL [facility] Specimen Blood Performing Organization Address [facility] one Number [address] [address] [place] * CBC (hemogram only) (01/03/2019 6:29 AM [employer] W[employer]ER) WBC 8.4 3.5 - 10.5 K/L [facility] RBC 4.62 (L) 4.63 - 6.08 M/L [facility] Hemoglobin 13.7 13.7 - 17.5 GM/DL [facility] Hematocrit 40.9 40.1 - 51.0 % [facility] MCV 88.5 79.0 - 92.2 fL [facility] MCH 29.7 25.7 - 32.2 pg [facility] MCHC 33.5 32.3 - 36.5 GM/DL [facility] RDW 14.0 11.6 - 14.4 % [facility] Platelets 225 150 - 450 K/CU MM [facility] MPV 10.3 9.4 - 12.4 fL [facility] nRBC 0 0 - 0 /100 WBC [facility] Specimen Blood Performing Organization Address [facility] one [place] [id number] [place] [address] * B-type Natriuretic Factor (BNP) (01/02/2019 9:48 PM [employer] WATCHER) Only the most recent of 4 results within the time period is included. BNP 10 0 - 100 pg/mL [facility] Specimen Blood Performing Organization Address [facility] one Number [place] [phone] [place] [address] * TRANSFUSION SERVICE REPORT - SCAN (12/30/2018 5:50 PM [employer] WATCHER) Narrative Performed At This result has an attachment that is n ot available. * ABORH, manual (12/29/2018 4:39 AM [employer] WATCHER) ABO Grouping O [facility] Rh Factor NEG [facility] Specimen Blood Performing Organization Address [facility] one Number [place] [phone] [phone] [place] * Type and screen, automated ([facility]) (12/29/2018 4:12 AM [employer] WATCHER) ABO/RH AUTOMATED (BEAKER) O NEGATIVE [facility] Ab Scrn NEGATIVE [facility] Specimen Blood Performing Organization Address City/State/Zipcode Ph one Number [facility] [address] [place] [address] [facility] * RI myocardial perfusion PET (rest and stress) (12/27/2018 1:35 PM [employer] W[employer]ER) Specimen Narrative Performed At FINAL REPORT Nulu PROCEDURE: MYOCARDIAL PERFUSION PET CATHY GING (Rest/Stress) CPT CODE: 03408 INDICATION: Chest pain, ACS suspected CARDIOVASCULAR PROFILE: [...] External Ris In - 12/27/2018 3:43 PM [employer] FINAL REPORT PROCEDURE: MYOCARDIAL PERFUSION PET IMAGING (Rest/Stress) CPT CODE: 24937 INDICATION: Chest pain, ACS suspected CARDIOVASCULAR PROFILE: [...] * Treadmill tolerance(Non-Nuclear Treadmill) (12/27/2018 1:30 PM [employer] WATCH[employer]) Specimen Narrative Performed At Protocol Name RegTicTacTi MUSE Time In Exercise Phase 00:01:00 Max. [...] 10:07:26 AM Confirmed by MD BRAVO JORGE ([id number]) o n 01/19/2019 11:31:16 AM Procedure Note Interface, External Ris In - 01/19/2019 11:31 AM [employer] W[employer] Protocol Name Regadenoson Time In Exercise Phase [...] 10:07:26 AM Confirmed by MD BRAVO JORGE ([id number]) on 01/19/2019 11:31:16 AM Performing Organization Address City/State/Zipcode Ph one Number GE MUSE * Rapid drug screen, urine (12/26/2018 6:57 AM L[employer] WATCHER) Only the most recent of 2 results within the time period is included. Barbiturate Screen Negative Negative [facility] Benzodiazepine Screen Negative Negative [facility] Cocaine (Metab.) Screen Negative Negative [facility] Methadone Screen Negative Negative [facility] Opiate Screen Positive (A) Negative [facility] Cannabinoid Screen Negative Negative [facility] Amph/Methamph Screen Negative Negative [facility] Phencyclidine Screen Negative Negative [facility] Specimen Urine Narrative Performed At [facility] Cocaine 300 ng/mL [facility] Cuwschsfeut81 n g/mL Ietjfrjkgicakr332 ng/mL Barbiturate 200 ng/ mL Uphyoooofqhaw79 ng/ mL Opiate3 00 ng/mL Methadone 300 n g/mL Amphetamine/ 1000 ng/mL Methamphetamine This assay provides an unconfirmed qual itative test result for the clinical management of patients in emergency sit uations. Chain of custody not maintained. Some mqwq-eka-wmestob medications, as w ell as adulterants, may cause inaccurate results. Clinical correlation should be applied. A more comprehensive drug screen or confirmation of a detected dr beatriz may be performed upon request. Performing Organization Address [facility] Ph one Number [place] [id number] [phone] [place] [address] * Hepatic function panel (12/26/2018 5:54 AM L[employer] WATCHER) Protein, Total 6.2Comment: Specimen slightly 6.0 - 8.3 gm/dL [facility] Albumin 3.6Comment: Specimen slightly 3.5 - 5.0 g/dL [facility] Total Bilirubin 0.3Comment: Specimen slightly 0.2 - 1.2 mg/dL [facility] Bilirubin, Direct 0.1Comment: Specimen slightly 0.1 - 0.5 mg/ dL [facility] Alkaline Phosphatase 84 40 - 150 U/L [facility] AST 22Comment: Specimen slightly 5 - 34 U/L [facility] ALT 26Comment: Specimen slightly 6 - 55 U/L [facility] Specimen Blood Performing Organization Address [facility] Ph one Number [place] [phone] [place] * D-dimer (12/25/2018 7:52 PM L[employer] WATCHER) D-Dimer, Quant 0.32 <0.50 MG/L FEU [facility] Specimen Blood Narrative Performed At Intended Use: The D-Dimer Assay can be used to aid in the diagnosis of Deep Vein [facility] Thrombosis (DVT) and Pulmonary Embolism Disease (PED) . [facility] In patients with low pre-test probabili ty, various studies concerning STA Liatest D-dimer test have reported that with a cutoff value of 0.50 MG/L FEU, the Negative Predictive Value (NPV) reg arding the exclusion of thrombosis is within 95-100% range. Performing Organization Address [facility] Ph one Number [place] [id number] [phone] * Lipid panel (12/08/2018 4:48 AM CDT) Only the most recent of 2 results within the time period is included. Triglycerides 329 mg/dL [facility] Cholesterol 168 mg/dL [facility] HDL 24 mg/dL [facility] LDL Calculated 78 mg/dL [facility] Specimen Blood Narrative Performed At Triglyceride Reference Range: [facility] Low Risk <150 [facility] [id number] High Risk 200-499 Very High Risk>=500 Cholesterol Reference Range: Low Risk <200 Gadblkvhry625-676 High Risk>240 HDL Cholesterol Reference Range: Low Risk >=60 High Risk <40 LDL Cholesterol Reference Range: Optimal<100 Near Qdqcsil133-426 Akwgacgfrw367-760 Icft555-121 Very High >=190 Performing Organization Address [facility] Ph one Number [place] [phone] [place] [address] * PT/aPTT (12/07/2018 8:01 PM CDT) Only the most recent of 2 results within the time period is included. Protime 13.1 11.9 - 14.2 seconds [facility] INR 1.0 <=5.9 [facility] PTT 28.6 22.5 - 36.0 seconds [facility] Specimen Blood Narrative Performed At Effective 07/16/2018: PT Reference Range Change [facility] New: 11.9-14.2Previous: 11.7-14.7 [facility] RECOMMENDED COUMADIN/WARFARIN INR THERA PY RANGES STANDARD DOSE: 2.0-3.0Includes: PRO PHYLAXIS for venous thrombosis, systemic embolization; TREATMENT for venous thro mbosis and/or pulmonary embolus. HIGH RISK: Target INR is 2.5-3.5 for pa tients wiht mechanical heart valves. Performing Organization Address [facility] one Number [address] [address] [place] * TSH/Free T4 If Indicated (12/01/2018 4:19 AM CDT) TSH 0.60 0.35 - 4.94 uIU/mL [facility] Specimen Blood Performing Organization Address [facility] one Number [address] [address] [place] * Hemoglobin A1c (12/01/2018 4:19 AM CDT) Hemoglobin A1C 7.6 (H) 4.3 - 6.1 % [facility] Specimen Blood Performing Organization Address [facility] Ph one Number [address] [place] * Sodium, random urine (12/01/2018 1:14 AM CDT) Sodium Urine 71 meq/L [facility] Specimen Urine Narrative Performed At Reference Range: No Normals [facility] Performing Organization Address [facility] Ph one Number [address] [address] [place] * Creatinine, random urine (12/01/2018 1:14 AM CDT) Creatinine, Ur 49.3 mg/dL [facility] Specimen Urine Narrative Performed At Reference Range: No Normals [facility] Performing Organization Address City/[facility]/Zipcode Ph one Number [facility] [address] [place], [place] [address] [place] * US renal complete (12/01/2018 1:02 AM CDT) Specimen Narrative Performed At FINAL REPORT [facility] TECHNIQUE: Grayscale ultrasound of the kidneys and [...] Jacklyn Huang MD Report Verified Date/Time: 9 23:27:53 Procedure Note Interface, External Ris In - 11/30/2018 11:30 PM CDT FINAL REPORT CLINICAL HISTORY: wrist pain TECHNIQUE: 3 views of the right wrist COMPARISON: None IMPRESSION: The bones of the wrist are intact without evidence of fracture or dislocation. Signed: Jacklyn Huang MD Report Verified Date/Time: 11/30/2018 23:27:53 Performing Organization Address [facility] one Number GE RIS * XR knee [...] Verified Date/Time: 11/30/2018 23:40:45 Performing Organization Address [facility] Ph one Number GE RIS * XR [...] CDT) Specimen Narrative Performed At FINAL REPORT [facility] CLINICAL HISTORY: hand pain TECHNIQUE: 3 views [...] Verified Date/Time: 11/30/2018 23:39:40 Performing Organization Address City/[facility] one Number GE RIS * XR chest [...] Verified Date/Time: 11/30/2018 23:38:17 Performing Organization Address City/State/[facility] Ph one Number GE RIS after 07/27/2018 Insurance Payer Benefit Subscriber ID Type Phone Address Plan / Group MEDICAID - MEDICAID MGD [facility] xxxxxxxxx Med[employer] id 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
--- OUTSIDE RECORDS SUMMARY | 2019-07-28 00:19 | XMS REPORT | Continuity of Care Document ---
Author Author Kuponjo ARANZA Peguero [employer] Address Unknown Phone Unavailable Care Team Providers Care Cash Controller Name Role Phone [employer] Unavailable Un available Problems Problem Status Onset Date Classification Date Reported Comments Source Nausea with vomiting, unspecified 07/12/2019 07/14/2019 [facility] Fever, unspecified 07/12/2019 07/14/2019 [facility] SOB Active 0 07/12/2019 [facility] STROKE Active 07/10/2019 [facility] CVA Active 0 07/10/2019 [facility] ACUTE CHEST PAIN Active 03/12/2019 [facility] CHEST PAIN Active 03/12/2019 [facility] Other chest pain 01/11/2019 01/13/2019 [facility] ACUTE ISCHEMIC STROKE Active 11/08/2018 [facility] Tachycardia Active 09/05/2018 09/29/2018 [facility] Chronic obstructive pulmonary disease [facility] acute exacerbation Active 07/15/2018 09/29/2018 [facility] Atrial fibrillation Active 07/15/2018 09/29/2018 [facility] Hypokalemia Active 07/15/2018 09/29/2018 [facility] Hypocalcemia Active 07/15/2018 09/29/2018 [facility] Hypomagnesemia Active 07/15/2018 09/29/2018 [facility] Chest pain Active 07/14/2018 09/29/2018 [facility] HLD (hyperlipidemia) Active 07/14/2018 09/29/2018 [facility] Hypothyroid Active 07/14/2018 09/29/2018 [facility] Emphysema lung Active 07/14/2018 09/29/2018 [facility] DM (diabetes mellitus) Active 07/14/2018 09/29/2018 [facility] Chest pain due to coronary artery disease Active 07/07/2018 09/29/2018 [facility] Chest pain at rest Active 06/29/2018 09/29/2018 [facility] Morbid obesity with body mass index of 50 or higher Active 06/20/2018 09/29/2018 [facility] Backache (finding) Active 10/03/2010 Problem 07/14/2019 [facility] Anxiety (finding) Resolved Problem 07/14/2019 [facility] [place] Aortic aneurysm repair (procedure) Resolved Problem [facility] Bipolar I disorder (disorder) Resolved Problem [facility] [place] Cervical post-laminectomy syndrome (disorder) Resolved Problem 07/14/2019 [facility] Congestive heart failure (disorder) Active Problem [facility] Cholecystectomy (procedure) Re solved Problem [facility] [place] Chronic obstructive lung disease (disorder) Active Problem 07/14/2019 [facility] Cerebrovascular accident (disorder) Resolved Problem [facility] Deep venous thrombosis (disorder) Active Problem [facility] [place] Heterozygous Factor V Leiden mutation (disorder) Active Problem 07/14/2019 [facility] History of - Deep Vein Thrombosis (anny xt-dependent category) Active Prob maribel 07/14/2019 [facility] Hodgkin's disease (disorder) R esolved Problem [facility] [place] History of - CVA (context-dependent category) Active Problem 07/14/2019 [facility] History of repair of ascending aorta (situation) Active Problem 07/14/2019 [facility] Hyperlipidemia (disorder) Acti ve Problem [facility] [place] Depressive disorder (disorder) Resolved Problem [facility] [place] Myocardial infarction (disorder) Resolved Problem [facility] Total nephrectomy (procedure) Resolved Problem left kidney [facility] [place] Cervico-occipital neuralgia (finding) Resolved Problem 07/14/2019 [facility] [place] Pneumonia (disorder) Resolved Problem 07/14/2019 [facility] [place] Smokes tobacco daily (finding) Active Problem [facility] [place] Posttraumatic stress disorder (disorder) Resolved Problem 07/14/2019 [facility] Chest pain, unspecified type A ctive 09/29/2018 [facility] Angina at rest Active 09/20/2018 [facility] Acute on chronic congestive heart failur e, unspecified heart failure type Active 09/29/2018 [facility] CEREBRAL INFARCTION, UNSPECIFIED Active [facility] CHEST PAIN, UNSPECIFIED Active [facility] Medications Medication Details Route Status Patient Instructions Ordering Provider Order Date Source Spironolactone Notes: (Same As : Aldactone) Hazardous Drug Group 2:Non-antineoplastic Hazardous Drug -- Refer to safe handling procedure PPE [id number] N o Longer Active 07/12/2019 [facility] Citalopram 40 mg, 4 tab, Route : PO, Drug form: TAB, Daily, Dosing Weight 182.045, kg, Start date: 07/12/19 9:00:00 CDT, Duration: 30 day, Stop date: 08/10/19 9:00:00 CDT, 0 No Longer Active 07/12/2019 [facility] pantoprazole Notes: Tablet cruz uld not be chewed or crushed. (Same as: Protonix) N o Longer Active 07/12/2019 [facility] Trazodone Hydrochloride 100 MG Oral Tablet Route: PO, Drug form: TAB, Bedtime, Dosing Weight 182.045, kg, Start date: 07/11/19 21:00:00 CDT, Duration: 30 day, Stop date: 08/09/19 21:00:00 CDT Inactive 07/12/2019 [facility] trazodone 50 mg oral tablet No shahram: (Same As: Eligioyrel) Inactive 07/12/2019 [facility] Bupropion Notes: (Same As: Mannie stewartutrin) Inactive 07/11/2019 [facility] Acetaminophen 300 MG / Codeine Phosphate 30 MG Oral Tablet [Tylenol with Codeine #3] Notes: Do not exceed 4gm/day of acetamin ophen. (Same as: Tylenol with Codeine # 3) Inactive 07/11/2019 [facility] LORazepam 2 mg oral tablet 2 m g = 1 tab, PO, BID, PRN Anxiety, 0 Refill(s) Active 07/11/2019 [facility] Isosorbide 30 mg, 1 tab, Route : PO, Drug form: ERTAB, QAM, Dosing Weight 181.818, kg, Start date: 07/11/19 9:00:00 CDT, Duration: 30 day, Stop date: 08/09/19 9:00:00 CDT, 0 Inactive 07/11/2019 [facility] Digoxin 0.125 MG Oral Tablet 0 .125 mg, 1 tab, Route: PO, Drug form: TAB, Daily, Dosing Weight 181.818, kg, Start date: 07/11/19 9:00:00 CDT, Duration: 30 day, Stop date: 08/09/19 9:00:00 CDT, 0 Inactive 07/11/2019 [facility] Furosemide 40 MG Oral Tablet N otes: (Same as: Lasix) May cause GI upset. Give with food or milk. Inactive 07/11/2019 [facility] Saline Flush 0.9% Notes: (Same as: BD Posiflush) Inactive 07/11/2019 [facility] atorvastatin Notes: (Same as: Lipitor) No Longer Active 07/11/2019 [facility] metoprolol tartrate Notes: (Sa me as: Lopressor) No Longer Active 07/11/2019 [facility] pantoprazole 40 mg, PO, Daily, # 30 tab, 0 Refill(s) Active 07/11/2019 [facility] Ativan Notes: (Same as: Ativan) Inactive 07/10/2019 [facility] Bupropion 150 mg, PO, BID, 0 R efill(s) Active 07/10/2019 [facility] pantoprazole 40 mg intravenous injection IV, Daily, 0 Refill(s) Inactive 07/10/2019 [facility] empagliflozin 25 MG Oral Tablet [Jardiance] 25 mg = 1 tab, PO, QAM, 0 Refill(s) Inactive 07/10/2019 [facility] Furosemide 40 MG Oral Tablet [Lasix] 40 mg = 1 tab, PO, BID, # 30 tab, 0 Refill(s) Active 07/10/2019 [facility] Acetaminophen 300 MG / Codeine Phosphate 30 MG Oral Tablet [Tylenol with Codeine #3] 1 tab, PO, Q8H, # 32 tab, 0 Refill(s) Active 07/10/2019 [facility] citalopram 40 mg oral tablet 4 0 mg = 1 tab, PO, Daily, # 30 tab, 0 Refill(s) Active 07/10/2019 [facility] rivaroxaban 20 MG Oral Tablet [Xarelto] 50 mL/min Inactive 07/10/2019 [facility] Albuterol 0.833 MG/ML / Ipratropium Brom tania 0.167 MG/ML Inhalant Solution [DuoNeb] Notes: (Same as: Duoneb) No Longer Active 07/10/2019 [facility] morphine 0.5 mg/mL preservative-free inj ectable solution Notes: (Same as:MORPhine Sulfate) No Longer Active 07/10/2019 [facility] Docusate Notes: (Same as: Cola ce) (Do Not Crush) No Longer Active 07/10/2019 [facility] Xarelto Notes: (Same as: Xarel to) Administer with food No Longer Active 07/10/2019 [facility] Levetiracetam 500 MG Oral Tablet Notes: (Same as:Keppra) No Longer Active 07/10/2019 [facility] gabapentin 300 MG Oral Capsule 300 mg, 1 cap, Route: PO, Drug form: CAP, TID, Dosing Weight 181.818, kg, Start date: 07/10/19 17:00:00 CDT, Duration: 30 day, Stop date: 08/09/19 13:00:00 CDT Inactive 07/10/2019 [facility] Risperidone Notes: (Same as: R isperdal) Hazardous Drug Group 2:Non-antineoplastic Hazardous Drug -- Refer to safe handling procedure PPE Matrix No Longer Active 07/10/2019 [facility] Lorazepam Notes: (Same as: Olu [place]) No Longer Active 07/10/2019 [facility] isosorbide mononitrate 30 mg oral tablet , extended release 30 mg = 1 tab, PO, QAM, # 30 tab, 0 Refill(s) Active 07/10/2019 [facility] gabapentin 300 MG Oral Capsule 300 mg = 1 cap, PO, TID, # 90 cap, 0 Refill(s) Inactive 07/10/2019 [facility] LORazepam 2 mg oral tablet 2 m g = 1 tab, PO, BID, PRN Anxiety, # 60 tab, 0 Refill(s) Inactive 07/10/2019 [facility] 200 ACTUAT Albuterol 0.09 MG/ACTUAT Mete red Dose Inhaler [Proventil] 1 puff, INHALER, QID, PRN for wheezing, # 25 gm, 0 Refill(s) Active 07/10/2019 [facility] atorvastatin 40 mg oral tablet 40 mg = 1 tab, PO, Bedtime, # 30 tab, 0 Refill(s) Active 07/10/2019 [facility] Levetiracetam 500 MG Oral Tablet 1,000 mg = 2 tab, PO, BID, # 120 tab, 0 Refill(s) Inactive 07/10/2019 [facility] risperiDONE 2 mg oral tablet 2 mg = 1 tab, PO, BID, # 60 tab, 0 Refill(s) Active 07/10/2019 [facility] spironolactone 50 mg oral tablet 50 mg = 1 tab, PO, Daily, # 60 tab, 0 Refill(s) Inactive 07/10/2019 [facility] Furosemide 40 MG Oral Tablet 4 0 mg = 1 tab, PO, Daily, # 30 tab, 0 Refill(s) Inactive 07/10/2019 [facility] Metoprolol Tartrate 25 mg oral tablet 25 mg = 1 tab, PO, BID, # 60 tab, 0 Refill(s) Active 07/10/2019 [facility] Digoxin 0.125 MG Oral Tablet 0 .125 mg, PO, Daily, # 30 tab, 0 Refill(s) Active 07/10/2019 [facility] Trazodone Hydrochloride 100 MG Oral Tablet See Instructions, 2 tab PO Bedtime 30 day, 0 Refill(s) Active 07/10/2019 [facility] rivaroxaban 20 MG Oral Tablet [Xarelto] 50 mL/min Active 07/10/2019 [facility] Dextrose 50% Syringe (D50W) 12 .5 gm, 25 mL, Route: IVP, Drug Form: INJ, Dosing Weight 181.818, kg, PRN, PRN Blood Glucose Results, Start date: 07/10/19 16:03:00 CDT, Duration: 30 day, Stop date: 08/09/19 16:02:00 CDT, 0 No Longer Active 07/10/2019 [facility] Glucagon 1 mg, Route: IM, Drug form: PDR/INJ, PRN, Dosing Weight 181.818, kg, PRN Blood Glucose Results, Start date: 07/10/19 16:03:00 CDT, Duration: 30 day, Stop date: 08/09/19 16:02:00 CDT, 0 No Longer Active 07/10/2019 [facility] Insulin Lispro Notes: (Same as : Humalog) Roll in palms of hands gently; Do not shake vigorously. WASTE: F/P - Black; E - Municipal Trash Bin Stable for 28 days at room temperature. Expires in days from Date No Longer Active 07/10/2019 [facility] Saline Flush 0.9% Notes: (Same as: BD Posiflush) Inactive 07/10/2019 [facility] Dextrose 50% Syringe (D50W) 25 mL, Route: IVP, Dosing Weight 181.818, kg, PRN, PRN Blood Glucose Results, Start date: 07/10/19 15:59:00 CDT, Duration: 30 day, Stop date: 08/09/19 15:58:00 CDT Inactive 07/10/2019 [facility] Glucagon 1 mg, Route: IM, PRN, Dosing Weight 181.818, kg, PRN Blood Glucose Results, Start date: 07/10/19 15:59:00 CDT, Duration: 30 day, Stop date: 08/09/19 15:58:00 CDT Inactive 07/10/2019 [facility] POLYETHYLENE GLYCOL 3350 Notes : Dissolve in 8 oz of water or juice. (Same as: Miralax) No Longer Active 07/10/2019 [facility] Bisacodyl Notes: (Same As: Dul colax, Bisco-Lax) No Longer Active 07/10/2019 [facility] Melatonin Notes: (Same as: Marge atonin) No Longer Active 07/10/2019 [facility] Hydralazine Notes: (Same as: A presoline) Push over 5 minutes No Longer Active 07/10/2019 [facility] Aspirin Notes: (Do Not Crush) Do not crush or chew. Inactive 07/10/2019 [facility] Saline Flush 0.9% Notes: (Same as: BD Posiflush) Inactive 07/10/2019 [facility] Aspirin 81 MG Enteric Coated Tablet Notes: Do not crush or chew. (Same As: Ecotrin) Inactive 03/13/2019 [facility] Ativan Notes: (Same as: Ativan) Inactive 03/13/2019 [facility] Acetaminophen 300 MG / Codeine Phosphate 30 MG Oral Tablet [Tylenol with Codeine #3] Notes: Do not exceed 4gm/day of acetamin ophen. (Same as: Tylenol with Codeine # 3) Inactive 03/13/2019 [facility] Famotidine Notes: (Same as: Pe pcid) No Longer Active 03/13/2019 [facility] atorvastatin Notes: (Same as: Lipitor) No Longer Active 03/13/2019 [facility] Saline Flush 0.9% Notes: prese rvative free. No Longer Active 03/13/2019 [facility] methadone 10 mg oral tablet 10 mg = 1 tab, PO, BID, 0 Refill(s) Active 03/13/2019 [facility] pregabalin 100 MG Oral Capsule [Lyrica] 100 mg = 1 cap, PO, TID, # 90 cap, 0 Refill(s) Active 03/13/2019 [facility] Risperdal PO, Daily, 0 Refill( s) Active 03/13/2019 [facility] Enoxaparin Notes: (Same as: Lo venox) No Longer Active 03/13/2019 [facility] Saline Flush 0.9% Notes: prese rvative free. No Longer Active 03/13/2019 [facility] NS (Bolus) IV 1,000 mL, 1,000 ml/hr, Infuse Over: 1 hr, Route: IV, 1,000, Drug form: INJ, ONCE, Priority: STAT, Dosing Weight 187.727 kg, Start date: 03/12/19 16:58:00 THERAPIST RESPIRATORY, Stop date: 03/12/19 16:58:00 THERAPIST RESPIRATORY, 0 Inactive 03/12/2019 [facility] Tylenol 650 mg, Route: PO, Dale g form: TAB, ONCE, Dosing Weight 187.727, kg, Priority: STAT, Start date: 03/12/19 16:58:00 THERAPIST RESPIRATORY, Stop date: 03/12/19 16:58:00 THERAPIST RESPIRATORY Inactive 03/12/2019 [facility] Benadryl Notes: (Same as: Catalina dryl) Inactive 03/12/2019 [facility] Compazine Notes: (Same as: Com pazine) Inactive 03/12/2019 [facility] Aspirin 324 mg, Route: CHEW, D rug form: CHEWTAB, ONCE, Dosing Weight 187.727, kg, Priority: STAT, Start date: 03/12/19 16:04:00 THERAPIST RESPIRATORY, Stop date: 03/12/19 16:04:00 THERAPIST RESPIRATORY Inactive 03/12/2019 [facility] Morphine 4 mg, Route: IVP, ONC E, Dosing Weight 185.455, kg, Priority: STAT, Start date: 01/11/19 16:17:00 THERAPIST RESPIRATORY, Stop date: 01/11/19 16:17:00 THERAPIST RESPIRATORY Inactive 01/11/2019 [facility] Iohexol 100 mL, Route: IVP, Dr henderson Form: SOLN, Dosing Weight 185.455, kg, ONCALL, STAT, Start date: 01/11/19 16:06:00 THERAPIST RESPIRATORY, Duration: 1 doses or times, Dose = 2.2ml/kg, Max dose = 100ml -- "To be infused by Ra diology Staff ONLY" Inactive 01/11/2019 [facility] Morphine Notes: (Same as:MORPh ine Sulfate) Inactive 01/11/2019 [facility] atorvastatin 40 mg oral tablet 80 mg = 2 tab, PO, Bedtime, # 90 tab, 0 Refill(s), Pharmacy: [id number] Active 11/11/2018 [facility] rivaroxaban 20 mg oral tablet 20 mg = 1 tab, PO, QPM, # 90 tab, 0 Refill(s), Pharmacy: [id number] Active 11/11/2018 [facility] Insulin Lispro 10 unit, SUB-Q, TID-Before Meals, 0 Refill(s) Inactive 11/11/2018 [facility] Lyrica Notes: (Same as: Lyrica) Inactive 11/11/2018 [facility] Insulin Glargine 100 UNT/ML Injectable S olution [Lantus] Notes: (Same as: Lantus) Do not hold ins ulin without contacting prescriber WASTE: F/P - Black; E - Municipal Trash Bin "single patient use only" Stable for 28 days at room temperature Expires in days from Date Inactive 11/11/2018 [facility] 3 ML Insulin Glargine 100 UNT/ML Prefill ed Syringe [Lantus] Notes: (Same as: Lantus) Do not hold ins ulin without contacting prescriber WASTE: F/P - Black; E - Municipal Trash Bin "single patient use only" Stable for 28 days at room temperature Expires in days from Date No Longer Active 11/11/2018 [facility] Acetaminophen Notes: Do not ex ceed 4 gm/day. (Same as: Tylenol) Inactive 11/11/2018 [facility] Insulin Glargine 100 UNT/ML Injectable S olution [Lantus] 20 unit, SUB-Q, Bedtime, # 10 mL, 3 Refill(s) Active 11/11/2018 [facility] nt atorvastatin 40 mg oral tablet 80 mg = 2 tab, PO, Bedtime, # 90 tab, 0 Refill(s), Pharmacy: [facility] #[id number] No Longer Active 11/10/2018 [facility] rivaroxaban 20 mg oral tablet 20 mg = 1 tab, PO, QPM, # 90 tab, 0 Refill(s), Pharmacy: [facility] #[id number] No Longer Active 11/10/2018 [facility] Digoxin 0.125 MG Oral Tablet N otes: Take on an Empty Stomach (Same as: Lanoxin) No Longer Active 11/10/2018 [facility] nter 24 HR Metoprolol Tartrate 25 MG Extended Release Tablet [Toprol] Notes: (Same as: Toprol XL) Do Not Crush No Longer Active 11/10/2018 [facility] Spironolactone Notes: (Same As : Aldactone) No Longer Active 11/10/2018 [facility] Dextrose 50% Syringe 12.5 gm, 25 mL, Route: IVP, Drug Form: INJ, Dosing Weight 190, kg, PRN, PRN Blood Glucose Results, Start date: 11/10/18 6:22:00 CDT, Duration: 30 day, Stop date: 12/10/18 6:21:00 CDT, 0 No Longer Active 11/10/2018 [facility] Glucagon 1 mg, Route: IM, Drug form: PDR/INJ, PRN, Dosing Weight 190, kg, PRN Blood Glucose Results, Start date: 11/10/18 6:22:00 CDT, Duration: 30 day, Stop date: 12/10/18 6:21:00 CDT, 0 No Longer Active 11/10/2018 [facility] Insulin Lispro Notes: (Same as : Humalog) Roll in palms of hands gently; Do not shake vigorously. WASTE: F/P - Black; E - Municipal Trash Bin Stable for 28 days at room temperature. Expires in days from Date No Longer Active 11/10/2018 [facility] nter atorvastatin Notes: (Same as: Lipitor) No Longer Active 11/10/2018 [facility] Trazodone Notes: (Same As: Eligio yrel) No Longer Active 11/10/2018 [facility] Xarelto Notes: (Same as: Xarel to) Administer with food No Longer Active 11/09/2018 [facility] lamoTRIgine 25 mg oral tablet Notes: (Same as:LaMICtal) No Longer Active 11/09/2018 [facility] Furosemide 40 MG Oral Tablet [Lasix] Notes: (Same as: Lasix) May cause GI upset. Give with food or milk. No Longer Active 11/09/2018 [facility] Potassium Chloride 1.33 MEQ/ML Oral Solution Notes: (Same as: Potassium Chloride) Inactive 11/09/2018 [facility] nter Macrobid Notes: Not recommende d for patients with CrCl<30 ml/min (Same as:Macrobid) With food. No Longer Active 11/09/2018 [facility] Nitrofurantoin 100 mg, Route: PO, TID, Dosing Weight 190, kg, Start date: 11/09/18 13:00:00 CDT, Duration: 30 day, Stop date: 12/09/18 9:00:00 CDT Inactive 11/09/2018 [facility] metoprolol tartrate 25 mg oral tablet 25 mg = 1 tab, PO, BID, # 60 tab, 0 Refill(s) Active 11/09/2018 [facility] nter lamoTRIgine 25 mg oral tablet 25 mg = 1 tab, PO, BID, # 60 tab, 0 Refill(s) Active 11/09/2018 [facility] Furosemide 40 MG Oral Tablet [Lasix] 40 mg = 1 tab, PO, BID, 0 Refill(s) Active 11/09/2018 [facility] Ranexa 500 mg, PO, BID, 0 Refi ll(s) Active 11/09/2018 [facility] empagliflozin 25 MG Oral Tablet [Jardiance] 25 mg = 1 tab, PO, QAM, 0 Refill(s) Active 11/09/2018 [facility] nter spironolactone 50 mg oral tablet 50 mg = 1 tab, PO, Daily, # 30 tab, 1 Refill(s) Active 11/09/2018 [facility] nter isosorbide mononitrate 30 mg oral tablet , extended release 30 mg = 1 tab, PO, QAM, # 30 tab, 0 Refill(s) Active 11/09/2018 [facility] nter Digoxin 0.125 MG Oral Tablet 1 25 microgram = 1 tab, PO, Daily, # 30 tab, 0 Refill(s) Active 11/09/2018 [facility] nter trazodone 150 mg oral tablet 1 50 mg = 1 tab, PO, Bedtime, # 30 tab, 0 Refill(s) Active 11/09/2018 [facility] nter Saline Flush 0.9% Notes: Same as: BD Posiflush Sterile No Longer Active 11/09/2018 [facility] Docusate Sodium 50 MG / sennosides, FCI 8.6 MG Oral Tablet Notes: (Same as Senokot-S) Equiv. to Marjorie-Colace. No Longer Active 11/09/2018 [facility] Plavix Notes: (Same As: Plavix) Inactive 11/09/2018 [facility] Levetiracetam 500 MG Oral Tablet [Keppra] Notes: (Same as:Keppra) Inactive 11/09/2018 [facility] Aspirin 325 MG Enteric Coated Tablet Notes: (Do Not Crush) Do not crush or chew. Inactive 11/09/2018 [facility] nter Promethazine Notes: . (Same a s: Phenergan) Inactive 11/09/2018 [facility] Morphine Notes: (Same as:MORPh ine Sulfate) Inactive 11/09/2018 [facility] heparin sodium, porcine 2500 UNT/ML Injectable Solutio n Notes: porcine heparin Inactiv e 11/09/2018 [facility] Aspirin 325 MG Enteric Coated Tablet Notes: (Do Not Crush) Do not crush or chew. No Longer Active 11/09/2018 [facility] nter Isolyte S PH-7.4 (Bolus) IV No shahram: (Same as: Isolyte S PH 7.4) Inactive 11/09/2018 [facility] Sodium Chloride 0.9% IV 1,000 mL 1,000 mL, Rate: 75 ml/hr, Infuse over: 13.3 hr, Route: IV, Total Volume: 1,000, Start date: 11/08/18 21:04:00 CDT, Duration: 30 day, Stop date: 12/08/18 21:03:00 CDT, 0 No Longer Active 11/09/2018 [facility] Saline Flush 0.9% Notes: Same as: BD Posiflush Sterile No Longer Active 11/09/2018 [facility] Labetalol 10 mg, 2 mL, Route: IVP, Drug form: INJ, Q15Min, kg, PRN Hypertension, Start date: 11/08/18 21:04:00 CDT, Duration: 30 day, Stop date: 12/08/18 21:03:00 CDT, 0 No Longer Active 11/09/2018 [facility] nter Hydralazine Notes: (Same as: A presoline) Push over 5 minutes No Longer Active 11/09/2018 [facility] Saline Flush 0.9% Notes: Same as: BD Posiflush Sterile No Longer Active 11/09/2018 [facility] furosemide 40 mg tablet Take 2 tablets by mouth every morning and evening. Oral Active 09/29/2018 [facility] carisoprodol 350 mg tablet Andriy e 350 mg by mouth every 8 (eight) hours as needed. Oral No Longer Active 09/20/2018 [facility] multivit with iron,minerals (GENERIX T ORAL) Take 30 mL by mouth 2 (two) times daily as needed. Oral No Longer Active 09/20/2018 [facility] metoprolol tartrate 25 mg tablet Take 25 mg by mouth 2 (two) times daily. Oral No Longer Active 09/20/2018 [facility] ALPRAZolam (XANAX) 2 mg tablet Take 2 mg by mouth 2 (two) times daily as needed for Anxiety. Oral No Longer Active 09/20/2018 [facility] clopidogrel 75 mg tablet Take 75 mg by mouth daily. Oral No Longer Active 09/20/2018 [facility] metoprolol tartrate 50 mg tablet Take 1 tablet by mouth 2 (two) times daily for 30 days. Oral Active 09/20/2018 [facility] atorvastatin 80 mg tablet Take 1 tablet by mouth every evening. Oral Active 07/15/2018 [facility] insulin glargine 100 unit/mL injection inject 20 Units under the skin every 12 (twelve) hours. Subcutaneous Active 07/15/2018 [facility] furosemide 40 mg tablet Take 1 tablet by mouth 3 (three) times daily. Oral No Longer Active 07/09/2018 [facility] DULoxetine 20 mg capsule Take 40 mg by mouth 2 (two) times daily. Oral Active [facility] [facility] isos[facility]ide mononitrate 30 mg 24 hr tablet Take 30 mg by mouth daily. Oral Active [facility] levETIRAcetam (KEPPRA) 500 mg tablet Take 500 mg by mouth 2 (two) times daily. Oral Active [facility] lamotrigine (LAMICTAL ORAL) Ta ke 25 mg by mouth 2 (two) times daily. Oral Active [facility] pregabalin (LYRICA) 100 mg capsule Take 100 mg by mouth 2 (two) times daily. Oral Active [facility] meloxicam (MOBIC) 15 mg tablet Take 15 mg by mouth as needed for Inflammation. Oral Active [facility] pantoprazole 20 mg EC tablet T vijaya 40 mg by mouth daily. Oral Active [facility] homeopathic drugs (RENEEL ORAL) Take by mouth. Oral Active [facility] risperiDONE (RISPERDAL) 0.5 mg tablet Take 0.5 mg by mouth 2 (two) times daily. Oral Active [facility] doxepin 100 mg capsule Take 10 0 mg by mouth at bedtime. Oral Active [facility] traZODone 150 mg tablet Take 1 50 mg by mouth at bedtime. Oral Active [facility] Hyoscyamine Sulfate (ANASPAZ) 0.125 mg TbDL Take 0.125 mg by mouth every 4 (four) hours as needed. Oral Active [facility] carisoprodol 350 mg tablet Andriy e 350 mg by mouth every 8 (eight) hours as needed. Oral Active [facility] cyclobenzaprine HCl (FLEXERIL ORAL) Take 10 mg by mouth every 8 (eight) hours as needed. Oral Active [facility] multivit with iron,minerals (GENERIX T ORAL) Take 30 mL by mouth 2 (two) times daily as needed. Oral Active [facility] hydrOXYzine 50 mg capsule Take 50 mg by mouth 3 (three) times daily as needed for Anxiety. Oral Active [facility] albuterol (PROAIR HFA) 90 mcg/actuation inhaler Inhale 2 Puffs every 6 (six) hours as needed for Wheezing or Shortness of Breath. Inhalation Active [facility] proMETHazine 25 mg tablet Take 25 mg by mouth every 6 (six) hours as needed. Oral Active [facility] metoprolol tartrate 25 mg tablet Take 25 mg by mouth 2 (two) times daily. Oral Active [facility] ALPRAZolam (XANAX) 2 mg tablet Take 2 mg by mouth 2 (two) times daily as needed for Anxiety. Oral Active [facility] aspirin 81 mg chewable tablet Take 81 mg by mouth daily. Oral Active [facility] digoxin 125 mcg tablet Take 0. 125 mg by mouth daily. Oral Active [facility] insulin lispro (HUMALOG KWIKPEN INSULIN SC) inject under the skin before meals as needed (150-200 blood glucose - 4 units; 201-300 blood glucose - 6 units; 301-400 blood glucose - 8 units; 401 and above blood glucose call MD). Subcutaneous Active [facility] KCL 10 mEq tablet Take 10 mEq by mouth 2 (two) times daily. Oral Active [facility] metFORMIN 1,000 mg tablet Take 1,000 mg by mouth 2 (two) times daily with meals. Oral Active [facility] spironolactone 50 mg tablet Ta ke 50 mg by mouth daily. Oral Active [facility] rivaroxaban (XARELTO) 20 mg tablet Take 20 mg by mouth every evening. Oral Active [facility] Carisoprodol 250 mg tablet Andriy e 250 mg by mouth every 8 (eight) hours as needed (Muscle spasm). Oral Active [facility] nitroglycerin 0.[address] 0.4 mg under the tongue every 5 (five) minutes as needed for Chest pain. Sublingual Active [facility] Loperamide HCl (IMODIUM A-D) 2 mg Tab tablet Take 2 mg by mouth 4 (four) times daily as needed for Other (Diarrhea). Oral Active [facility] lactulose 10 gram/15 mL oral solution Take 30 mL by mouth 2 (two) times daily as needed for Constipation. [facility] Take 1 m g by mouth 3 (three) times daily. Oral Active [facility] Allergies, Adverse Reactions, Alerts Substance Category Reaction Severity Reaction type Status Date Reported Comments Source Ampicillin Unknown - See comments Propensity to adverse reactions Active 06/19/2018 [facility] Gabapentin Unknown - See comments Propensity to adverse reactions Active 06/19/2018 [facility] Metoclopramide Hcl Unknown - See comments Propensity to adverse reactions Active 06/19/2018 [facility] Ondansetron Hcl (Pf) Itching Propensity to adverse reacti ons Active 06/19/2018 [facility] Hydrocodone-Acetaminophen Other - See comments Propensity to adverse reactions Active 07/07/2018 [facility] Tramadol Un known - See comments High Drug Allergy Active 07/07/2018 [facility] Ketorolac Tromethamine Hives Propensity to adverse reacti ons Active 09/19/2018 [facility] ampicillin Assertion Drug allergy Active [facility] Toradol Assertion Drug allergy Active [facility] Zofran Assertion hives Drug allergy Active [facility] Neurontin Assertion Drug allergy Active [facility] Reglan Assertion Drug allergy Active [facility] Minden Assertion Drug allergy Active [facility] Paper Tape Assertion Drug allergy Active [facility] traMADol Assertion Drug allergy Active [facility] Immunizations Immunization Date Given Site Status Last Updated Comments Source pneumococcal 23-valent vaccine 04/18/2018 Left Deltoid completed Jitendra [facility] pneumococcal 23-valent vaccine 10/02/2016 Not Given [facility] pneumococcal 23-valent vaccine<sup>1</sup> 01/06/2016 Not Given [facility] influenza virus vaccine, inactivated 02/03/2015 Not Given [facility] Results Order Name Results Value Reference Range Date Interpretation Comments Source CARDIAC ENZYMES Troponin-I <0.02 0.00 - 0.40 07/12/2019 [facility] CHEM PANEL Glucose Lvl 156 70 - 99 07/12/2019 [facility] CHEM PANEL BUN 15 7 - 22 07/12/2019 [facility] CHEM PANEL Creatinine Lvl 1.08 0.50 - 1.40 07/12/2019 [facility] CHEM PANEL Sodium Lvl 136 135 - 145 07/12/2019 [facility] CHEM PANEL Potassium Lvl 3.6 3.5 - 5.1 07/12/2019 [facility] CHEM PANEL Chloride Lvl 102 95 - 109 07/12/2019 [facility] CHEM PANEL CO2 28 24 - 32 07/12/2019 [facility] CHEM PANEL Calcium Lvl 9.2 8.5 - 10.5 07/12/2019 [facility] CHEM PANEL Total Protein 7.4 6.4 - 8.4 07/12/2019 [facility] CHEM PANEL Albumin Lvl 3.4 3.5 - 5.0 07/12/2019 [facility] CHEM PANEL ALT 35 0 - 65 07/12/2019 [facility] CHEM PANEL AST 25 0 - 37 07/12/2019 [facility] CHEM PANEL Alk Phos 104 39 - 136 07/12/2019 [facility] CHEM PANEL Bili Total 0.5 0.2 - 1.3 07/12/2019 [facility] CHEM PANEL AGAP 9.6 10.0 - 20.0 07/12/2019 [facility] CHEM PANEL B/C Ratio 14 6 - 25 07/12/2019 [facility] CHEM PANEL Globulin 4.0 2.7 - 4.2 07/12/2019 [facility] CHEM PANEL A/G Ratio 0.8 0.7 - 1.6 07/12/2019 [facility] CHEM PANEL eGFR 80 07/12/2019 Result Comment: [...] should be multiplied by the estimated BMI. [facility] CHEM PANEL Lactic Acid Lvl 1.5 0.5 - 2.2 07/12/2019 [facility] CHEM PANEL Procalcitonin Lvl 0.24 0.00 - 0.10 07/12/2019 [facility] HEMATOLOGY WBC 10.0 3.7 - 10.4 07/12/2019 [facility] HEMATOLOGY RBC 4.55 4.70 - 6.10 07/12/2019 [facility] HEMATOLOGY Hgb 14.0 14.0 - 18.0 07/12/2019 [facility] HEMATOLOGY Hct 40.6 42.0 - 54.0 07/12/2019 [facility] HEMATOLOGY MCV 89.3 80.0 - 94.0 07/12/2019 [facility] HEMATOLOGY MCH 30.7 27.0 - 31.0 07/12/2019 [facility] HEMATOLOGY MCHC 34.4 32.0 - 36.0 07/12/2019 [facility] HEMATOLOGY RDW 14.3 11.5 - 14.5 07/12/2019 [facility] HEMATOLOGY Platelet 197 133 - 450 07/12/2019 [facility] HEMATOLOGY MPV 7.9 7.4 - 10.4 07/12/2019 [facility] HEMATOLOGY Segs 80.4 45.0 - 75.0 07/12/2019 [facility] HEMATOLOGY Lymphocytes 12.2 20.0 - 40.0 07/12/2019 [facility] HEMATOLOGY Monocytes 6.2 2.0 - 12.0 07/12/2019 [facility] HEMATOLOGY Eosinophils 0.9 0.0 - 4.0 07/12/2019 [facility] HEMATOLOGY Basophils 0.3 0.0 - 1.0 07/12/2019 [facility] HEMATOLOGY Neutrophils # 8.1 1.5 - 8.1 07/12/2019 [facility] HEMATOLOGY Lymphocytes # 1.2 1.0 - 5.5 07/12/2019 [facility] HEMATOLOGY Monocytes # 0.6 0.0 - 0.8 07/12/2019 [facility] HEMATOLOGY Eosinophils # 0.1 0.0 [...] Albumin Lvl 3.0 3.5 - 5.0 07/11/2019 [facility] CHEM PANEL Globulin 3.2 2.7 - 4.2 07/11/2019 [facility] CHEM PANEL A/G Ratio 0.9 0.7 - 1.6 07/11/2019 [facility] CHEM PANEL ALT 29 0 - 65 07/11/2019 [facility] CHEM PANEL AST 16 0 - 37 07/11/2019 [facility] CHEM PANEL Alk Phos 76 39 - 136 07/11/2019 [facility] CHEM PANEL Bili Total 0.5 0.2 - 1.3 07/11/2019 [facility] CHEM PANEL eGFR 83 07/11/2019 Result Comment: [...] should be multiplied by the estimated BMI. [facility] HEMATOLOGY Segs 73.9 45.0 - 75.0 07/11/2019 [facility] HEMATOLOGY Lymphocytes 16.8 20.0 - 40.0 07/11/2019 [facility] HEMATOLOGY Monocytes 7.4 2.0 - 12.0 07/11/2019 [facility] HEMATOLOGY Eosinophils 1.4 0.0 - 4.0 07/11/2019 [facility] HEMATOLOGY Basophils 0.5 0.0 - 1.0 07/11/2019 [facility] HEMATOLOGY Neutrophils # 4.1 1.5 - 8.1 07/11/2019 [facility] HEMATOLOGY Lymphocytes # 0.9 1.0 - 5.5 07/11/2019 [facility] Monocytes # 0.4 0.0 - 0.8 07/11/2019 [facility] HEMATOLOGY Eosinophils # 0.1 0.0 - 0.5 07/11/2019 [facility] HEMATOLOGY WBC 5.6 3.7 - 10.4 07/11/2019 [facility] HEMATOLOGY RBC 4.22 4.70 - 6.10 07/11/2019 [facility] HEMATOLOGY Hgb 13.0 14.0 - 18.0 07/11/2019 [facility] HEMATOLOGY Hct 38.1 42.0 - 54.0 07/11/2019 [facility] HEMATOLOGY MCV 90.2 80.0 - 94.0 07/11/2019 [facility] HEMATOLOGY MCH 30.8 27.0 - 31.0 07/11/2019 [facility] HEMATOLOGY MCHC 34.1 32.0 - 36.0 07/11/2019 [facility] HEMATOLOGY RDW 14.2 11.5 - 14.5 07/11/2019 [facility] HEMATOLOGY Platelet 160 133 - 450 07/11/2019 [facility] HEMATOLOGY MPV 7.8 7.4 - 10.4 07/11/2019 [facility] CHEM PANEL Procalcitonin Lvl 0.12 0.00 - 0.10 07/10/2019 [facility] LIPIDS Trig 226 <=149 mg/dL 07/10/2019 [facility] LIPIDS Chol 196 <=199 mg/dL 07/10/2019 [facility] LIPIDS HDL 32 >=61 mg/dL 07/10/2019 [facility] LIPIDS CHD Risk 6.12 4.00 - 7.30 07/10/2019 [facility] LIPIDS LDL (Calculated) 119 <=99 mg/dL 07/10/2019 [facility] LIPIDS VLDL 45 07/10/2019 [facility] SPECIAL CHEMISTRY Hgb A1C 6.2 <=5.6 % 07/10/2019 [facility] URINE AND STOOL UA Color Yellow *NA* (07/10/19 5:11 PM) Yellow 07/10/2019 [facility] URINE AND STOOL UA Turbidity Clear (07/10/19 5:11 PM) Clear 07/10/2019 [facility] URINE AND STOOL UA Spec Grav 1.030 <=1.030 07/10/2019 [facility] URINE AND STOOL UA pH 6.0 5.0 - 8.0 07/10/2019 [facility] URINE AND STOOL UA Protein Negative mg/dL Negative mg/dL 07/10/2019 [facility] URINE AND STOOL UA Glucose 150 mg/dL Negative mg/dL 07/10/2019 [facility] URINE AND STOOL UA Ketones Negative mg/dL Negative mg/dL 07/10/2019 [facility] URINE AND STOOL UA Bili Negative *NA* (07/10/19 5:11 PM) Negative 07/10/2019 [facility] URINE AND STOOL UA Blood Negative (07/10/19 5:11 PM) Negative 07/10/2019 [facility] URINE AND STOOL UA Nitrite Negative (07/10/19 5:11 PM) Negative 07/10/2019 [facility] URINE AND STOOL UA Leuk Est Negative (07/10/19 5:11 PM) Negative 07/10/2019 [facility] URINE AND STOOL UA Sq Epi Occasional /LPF Few /LPF 07/10/2019 [facility] URINE AND STOOL UA WBC <1 0 - 5 07/10/2019 [facility] URINE AND STOOL UA RBC 2 0 - 2 07/10/2019 [facility] URINE AND STOOL UA Urobilinogen <=1.0 mg/dL 0.1 - 1.0 07/10/[address] [facility] [address] CARDIAC ENZYMES Total CK 207 12 - 191 07/10/2019 [facility] CARDIAC ENZYMES Troponin-I <0.02 0.00 - 0.40 07/10/2019 [facility] CHEM PANEL Glucose Lvl 131 70 - 99 07/10/2019 [facility] CHEM PANEL BUN 14 7 - 22 07/10/2019 [facility] CHEM PANEL Creatinine Lvl 1.05 0.50 - 1.40 07/10/2019 [facility] CHEM PANEL Sodium Lvl 134 135 - 145 07/10/2019 [facility] CHEM PANEL Potassium Lvl 3.6 3.5 - 5.1 07/10/2019 [facility] CHEM PANEL Chloride Lvl 101 95 - 109 07/10/2019 [facility] CHEM PANEL CO2 26 24 - 32 07/10/2019 [facility] CHEM PANEL Calcium Lvl 8.9 8.5 - 10.5 07/10/2019 [facility] CHEM PANEL AGAP 10.6 10.0 - 20.0 07/10/2019 [facility] CHEM PANEL eGFR 83 07/10/2019 Result Comment: [...] should be multiplied by the estimated BMI. [facility] HEMATOLOGY WBC 13.2 3.7 - 10.4 07/10/2019 [facility] HEMATOLOGY RBC 4.67 4.70 - 6.10 07/10/2019 [facility] HEMATOLOGY Hgb 14.3 14.0 - 18.0 07/10/2019 [facility] HEMATOLOGY Hct 41.7 42.0 - 54.0 07/10/2019 [facility] HEMATOLOGY MCV 89.3 80.0 - 94.0 07/10/2019 [facility] MCH 30.7 27.0 - 31.0 07/10/2019 [facility] MCHC 34.4 32.0 - 36.0 07/10/2019 [facility] HEMATOLOGY RDW 14.3 11.5 - 14.5 07/10/2019 [facility] Platelet 203 133 - 450 07/10/2019 [facility] MPV 7.9 7.4 - 10.4 07/10/2019 [facility] PT 13.4 12.0 - 14.7 07/10/2019 [facility] INR 1.02 0.85 - 1.17 07/10/2019 [facility] PTT 31.6 22.9 - 35.8 07/10/2019 [facility] Segs 86.2 45.0 - 75.0 07/10/2019 [facility] Lymphocytes 8.0 20.0 - 40.0 07/10/2019 [facility] Monocytes 4.7 2.0 - 12.0 07/10/2019 [facility] HEMATOLOGY Eosinophils 0.8 0.0 - 4.0 07/10/2019 [facility] HEMATOLOGY Basophils 0.3 0.0 - 1.0 07/10/2019 [facility] HEMATOLOGY Neutrophils # 11.3 1.5 - 8.1 07/10/2019 [facility] HEMATOLOGY Lymphocytes # 1.1 1.0 - 5.5 07/10/2019 [facility] HEMATOLOGY Monocytes # 0.6 0.0 - 0.8 07/10/2019 [facility] HEMATOLOGY Eosinophils # 0.1 0.0 - 0.5 07/10/2019 [facility] TOXICOLOGY Digoxin Lvl 0.2 0.8 - 2.0 07/10/2019 [facility] URINE AND STOOL UA Turbidity Clear (03/13/19 7:08 AM) Clear 03/13/2019 [facility] URINE AND STOOL UA Spec Grav 1.022 <=1.030 03/13/2019 [facility] URINE AND STOOL UA pH 6.0 5.0 - 8.0 03/13/2019 [facility] URINE AND STOOL UA Protein Negative mg/dL Negative mg/dL 03/13/[address] [facility] [address] URINE AND STOOL UA Glucose 500 mg/dL Negative mg/dL 03/13/2019 [facility] URINE AND STOOL UA Ketones Negative mg/dL Negative mg/dL 03/13/2019 [facility] URINE AND STOOL UA Bili Negative *NA* (03/13/19 7:08 AM) Negative 03/13/2019 [facility] URINE AND STOOL UA Blood Negative (03/13/19 7:08 AM) Negative 03/13/2019 [facility] URINE AND STOOL UA Nitrite Negative (03/13/19 7:08 AM) Negative 03/13/2019 [facility] URINE AND STOOL UA Leuk Est Negative (03/13/19 7:08 AM) Negative 03/13/2019 [facility] URINE AND STOOL UA WBC 1 0 - 5 03/13/2019 [facility] URINE AND STOOL UA RBC <1 0 - 2 03/13/2019 [facility] URINE AND STOOL UA Sq Epi None Seen 03/13/2019 [facility] URINE AND STOOL UA Color Ltyellow 03/13/2019 [facility] URINE AND STOOL UA Urobilinogen <=1.0 mg/dL 0.1 - 1.0 03/13/2019 [facility] CARDIAC ENZYMES Troponin-I <0.02 0.00 - 0.40 03/13/2019 [facility] CARDIAC ENZYMES Troponin-I <0.02 0.00 - 0.40 03/13/2019 [facility] LIPIDS Trig 223 <=149 mg/dL 03/13/2019 [facility] LIPIDS Chol 131 <=199 mg/dL 03/13/2019 [facility] LIPIDS HDL 24 >=61 mg/dL 03/13/2019 [facility] LIPIDS CHD Risk 5.46 4.00 - 7.30 03/13/2019 [facility] LIPIDS LDL (Calculated) 62 <=99 mg/dL 03/13/2019 [facility] LIPIDS VLDL 45 03/13/2019 [facility] SPECIAL CHEMISTRY Hgb A1C 6.7 <=5.6 % 03/13/2019 [facility] CARDIAC ENZYMES Total CK 121 12 - 191 03/12/2019 [facility] CARDIAC ENZYMES Troponin-I <0.02 0.00 - 0.40 03/12/2019 [facility] CHEM PANEL Glucose Lvl 141 70 - 99 03/12/2019 [facility] CHEM PANEL BUN 11 7 - 22 [...] should be multiplied by the estimated BMI. [facility] HEMATOLOGY WBC 6.7 3.7 - 10.4 03/12/2019 [facility] HEMATOLOGY RBC 4.80 4.70 - 6.10 03/12/2019 [facility] HEMATOLOGY Hgb 14.6 14.0 - 18.0 03/12/2019 [facility] HEMATOLOGY Hct 43.2 42.0 - 54.0 03/12/2019 [facility] HEMATOLOGY MCV 90.0 80.0 - 94.0 03/12/2019 [facility] MCH 30.5 27.0 - 31.0 03/12/2019 [facility] MCHC 33.9 32.0 - 36.0 03/12/2019 [facility] RDW 14.9 11.5 - 14.5 03/12/2019 [facility] Platelet 220 133 - 450 03/12/2019 [facility] MPV 8.2 7.4 - 10.4 03/12/2019 [facility] PTT 35.1 22.9 - 35.8 03/12/2019 [facility] HEMATOLOGY PT 15.0 12.0 - 14.7 03/12/2019 [facility] HEMATOLOGY INR 1.17 0.85 - 1.17 03/12/2019 [facility] Segs 66.4 45.0 - 75.0 03/12/2019 [facility] Lymphocytes 24.0 20.0 - 40.0 03/12/2019 [facility] HEMATOLOGY Monocytes 6.8 2.0 - 12.0 03/12/2019 [facility] HEMATOLOGY Eosinophils 2.1 0.0 - 4.0 03/12/2019 [facility] HEMATOLOGY Basophils 0.7 0.0 - 1.0 03/12/2019 [facility] HEMATOLOGY Neutrophils # 4.4 1.5 - 8.1 03/12/2019 [facility] HEMATOLOGY Lymphocytes # 1.6 1.0 - 5.5 03/12/2019 [facility] HEMATOLOGY Monocytes # 0.5 0.0 - 0.8 03/12/2019 [facility] HEMATOLOGY Eosinophils # 0.1 0.0 - 0.5 03/12/2019 [facility] IMMUNOLOGY CDC HIV 4th GEN Negat devonte *NA* (01/11/19 3:02 PM) Negative 01/11/2019 [facility] CARDIAC ENZYMES Troponin-I <0.02 0.00 - 0.40 01/11/2019 [facility] CHEM PANEL Glucose Lvl 207 70 - 99 01/11/2019 [facility] CHEM PANEL BUN 9 7 - 22 01/11/2019 [facility] CHEM PANEL Creatinine Lvl 1.25 0.50 - 1.40 01/11/2019 [facility] CHEM PANEL Sodium Lvl 140 135 - 145 01/11/2019 [facility] CHEM PANEL Potassium Lvl 3.8 3.5 - 5.1 01/11/2019 [facility] CHEM PANEL Chloride Lvl 102 95 - 109 01/11/2019 [facility] CHEM PANEL CO2 26 24 - 32 01/11/2019 [facility] CHEM PANEL Calcium Lvl 9.7 8.5 - 10.5 01/11/2019 [facility] CHEM PANEL AGAP 15.8 10.0 - 20.0 01/11/2019 [facility] CHEM PANEL eGFR 68 01/11/2019 [...] should be multiplied by the estimated BMI. [facility] HEMATOLOGY WBC 7.1 3.7 - 10.4 01/11/2019 [facility] HEMATOLOGY RBC 4.84 4.70 - 6.10 01/11/2019 [facility] HEMATOLOGY Hgb 14.7 14.0 - 18.0 01/11/2019 [facility] HEMATOLOGY Hct 42.8 42.0 - 54.0 01/11/2019 [facility] HEMATOLOGY MCV 88.5 80.0 - 94.0 01/11/2019 [facility] HEMATOLOGY MCH 30.5 27.0 - 31.0 01/11/2019 [facility] HEMATOLOGY MCHC 34.4 32.0 - 36.0 01/11/2019 [facility] HEMATOLOGY RDW 15.5 11.5 - 14.5 01/11/2019 [facility] HEMATOLOGY Platelet 215 133 - 450 01/11/2019 [facility] HEMATOLOGY MPV 8.0 7.4 - 10.4 01/11/2019 [facility] HEMATOLOGY Segs 63.2 45.0 - 75.0 01/11/2019 [facility] HEMATOLOGY Lymphocytes 25.9 20.0 - 40.0 01/11/2019 [facility] HEMATOLOGY Monocytes 7.9 2.0 - 12.0 01/11/2019 [facility] HEMATOLOGY Eosinophils 2.0 0.0 - 4.0 01/11/2019 [facility] HEMATOLOGY Basophils 1.0 0.0 - 1.0 01/11/2019 [facility] HEMATOLOGY Neutrophils # 4.5 1.5 - 8.1 01/11/2019 [facility] HEMATOLOGY Lymphocytes # 1.8 1.0 - 5.5 01/11/2019 [facility] HEMATOLOGY Monocytes # 0.6 0.0 - 0.8 01/11/2019 [facility] HEMATOLOGY Eosinophils # 0.1 0.0 - 0.5 01/11/2019 [facility] HEMATOLOGY Basophils # 0.1 0.0 - 0.2 01/11/2019 [facility] Culture: Urine <10,000 CFU/mL Skin Jacquie 11/09/2018 [facility] CARDIAC ENZYMES Troponin-I <0.02 0.00 - 0.40 11/09/2018 [facility] LIPIDS LDL Direct 75 <=99 mg/dL 11/09/2018 [facility] CARDIAC ENZYMES Troponin-I <0.02 0.00 - 0.40 11/09/2018 [facility] TOXICOLOGY Keppra Lvl <2.0 (11/09/18 1:47 AM) 11/09/2018 [facility] DRUG SCREEN U Amph Scr Nega tive *NA* (11/09/18 1:19 AM) Negative 11/09/2018 [facility] DRUG SCREEN U Debbie Scr Nega tive *NA* (11/09/18 1:19 AM) Negative 11/09/2018 [facility] DRUG SCREEN U Benzodiaz Scr Nega tive *NA* (11/09/18 1:19 AM) Negative 11/09/2018 [facility] DRUG SCREEN U Cocaine Scr Nega tive *NA* (11/09/18 1:19 AM) Negative 11/09/2018 [facility] DRUG SCREEN U Cannab Scr Nega tive *NA* (11/09/18 1:19 AM) Negative 11/09/2018 [facility] DRUG SCREEN U Opiate Scr Posi tive *ABN* (11/09/18 1:19 AM) Negative 11/09/2018 [facility] DRUG SCREEN U Phencyclidine Scr Nega tive *NA* (11/09/18 1:19 AM) Negative 11/09/2018 [facility] DRUG SCREEN UDS Note See Note (11/09/18 1:19 AM) 11/09/2018 [facility] URINE AND STOOL UA Color Light Yellow *NA* (11/09/18 1:12 AM) Yellow 11/09/2018 [facility] URINE AND STOOL UA Turbidity Clear (11/09/18 1:12 AM) Clear 11/09/2018 [facility] URINE AND STOOL UA Spec Grav 1.045 <=1.030 11/09/2018 [facility] URINE AND STOOL UA pH 6.0 5.0 - 8.0 11/09/2018 [facility] URINE AND STOOL UA Protein Negative (11/09/18 1:12 AM) Negative 11/09/2018 [facility] URINE AND STOOL UA Glucose 500 mg/dL Negative mg/dL 11/09/2018 [facility] URINE AND STOOL UA Ketones Negative *NA* (11/09/18 1:12 AM) Negative 11/09/2018 [facility] URINE AND STOOL UA Bili Negative *NA* (11/09/18 1:12 AM) Negative 11/09/2018 [facility] URINE AND STOOL UA Blood Negative (11/09/18 1:12 AM) Negative 11/09/2018 [facility] URINE AND STOOL UA Urobilinogen <1.0 0.1 - 1.0 11/09/2018 [facility] URINE AND STOOL UA Nitrite Negative (11/09/18 1:12 AM) Negative 11/09/2018 [facility] URINE AND STOOL UA Leuk Est Small *ABN* (11/09/18 1:12 AM) Negative 11/09/2018 [facility] URINE AND STOOL UA Sq Epi None Seen (11/09/18 1:12 AM) Few 11/09/2018 [facility] URINE AND STOOL UA WBC 6 0 - 5 11/09/2018 [facility] URINE AND STOOL UA RBC 1 0 - 2 11/09/2018 [facility] IMMUNOLOGY CDC HIV 4th GEN Negat devonte *NA* (11/08/18 9:58 PM) Negative 11/09/2018 [facility] CARDIAC ENZYMES Troponin-I <0.02 0.00 - 0.40 11/09/2018 [facility] CHEM PANEL Glucose Lvl 144 70 - 99 11/09/2018 [facility] CHEM PANEL BUN 13 7 - 22 11/09/2018 [facility] CHEM PANEL Creatinine Lvl 1.39 0.50 - 1.40 11/09/2018 [facility] CHEM PANEL Sodium Lvl 136 135 - 145 11/09/2018 [facility] CHEM PANEL Potassium Lvl 3.4 3.5 - 5.1 11/09/2018 [facility] CHEM PANEL Chloride Lvl 100 95 - 109 11/09/2018 [facility] CHEM PANEL CO2 28 24 - 32 11/09/2018 [facility] CHEM PANEL Calcium Lvl 9.0 8.5 - 10.5 11/09/2018 [facility] CHEM PANEL eGFR 60 11/09/2018 [...] should be multiplied by the estimated BMI. [facility] CHEM PANEL Total Protein 7.1 6.4 - 8.4 11/09/2018 [facility] CHEM PANEL Albumin Lvl 3.7 3.5 - 5.0 11/09/2018 [facility] CHEM PANEL ALT 29 0 - 65 11/09/2018 [facility] CHEM PANEL AST 23 0 - 37 11/09/2018 [facility] CHEM PANEL Alk Phos 99 39 - 136 11/09/2018 [facility] [facility]EL Bili Total 0.4 0.2 - 1.3 11/09/2018 [facility] CHEM PANEL AGAP 11.4 10.0 - 20.0 11/09/2018 [facility] CHEM PANEL B/C Ratio 9 6 - 25 11/09/2018 [facility] CHEM PANEL Globulin 3.4 2.7 - 4.2 11/09/2018 [facility] CHEM PANEL A/G Ratio 1.1 0.7 - 1.6 11/09/2018 [facility] HEMATOLOGY WBC 6.3 3.7 - 10.4 11/09/2018 [facility] HEMATOLOGY RBC 4.45 4.70 - 6.10 11/09/2018 [facility] HEMATOLOGY Hgb 14.2 14.0 - 18.0 11/09/2018 [facility] HEMATOLOGY Hct 40.1 42.0 - 54.0 11/09/2018 [facility] HEMATOLOGY MCV 90.1 80.0 - 94.0 11/09/2018 [facility] HEMATOLOGY MCH 31.9 27.0 - 31.0 11/09/2018 [facility] HEMATOLOGY MCHC 35.4 32.0 - 36.0 11/09/2018 [facility] HEMATOLOGY RDW 15.8 11.5 - 14.5 11/09/2018 [facility] HEMATOLOGY Platelet 225 133 - 450 11/09/2018 [facility] HEMATOLOGY MPV 7.4 7.4 - 10.4 11/09/2018 [facility] HEMATOLOGY Segs 54.9 45.0 - 75.0 11/09/2018 [facility] HEMATOLOGY Lymphocytes 32.4 20.0 - 40.0 11/09/2018 [facility] HEMATOLOGY Monocytes 9.2 2.0 - 12.0 11/09/2018 [facility] HEMATOLOGY Eosinophils 2.6 0.0 - 4.0 11/09/2018 [facility] HEMATOLOGY Basophils 0.9 0.0 - 1.0 11/09/2018 [facility] HEMATOLOGY Neutrophils # 3.5 1.5 - 8.1 11/09/2018 [facility] HEMATOLOGY Lymphocytes # 2.0 1.0 - 5.5 11/09/2018 [facility] HEMATOLOGY Monocytes # 0.6 0.0 - 0.8 11/09/2018 [facility] HEMATOLOGY Eosinophils # 0.2 0.0 - 0.5 11/09/2018 [facility] HEMATOLOGY Basophils # 0.1 0.0 - 0.2 11/09/2018 [facility] LIPIDS Trig 680 <=149 mg/dL 11/09/2018 [facility] LIPIDS Chol 177 <=199 mg/dL 11/09/2018 [facility] LIPIDS HDL 25 >=61 mg/dL 11/09/2018 [facility] LIPIDS CHD Risk 7.08 4.00 - 7.30 11/09/2018 [facility] LIPIDS LDL (Calculated) See Note mg/dL <=99 mg/dL 11/09/2018 Result Comment: LDL cholesterol cannot b e calculated due to very high triglycerides (>400 mg/dL). Recommend Direct LDL if clinically indicated. [facility] LIPIDS VLDL See Note 4 *NA* (11/08/18 9:38 PM) 11/09/2018 Result Comment: VLDL - Cholesterol level cannot be accurately calculated due to very high triglycerides (>400 mg/dL). [facility] SPECIAL CHEMISTRY Hgb A1C 7.7 <=5.6 % 11/09/2018 [facility] HEMATOLOGY ACT (TEG) Rapid 105 86 - 118 11/09/2018 [facility] HEMATOLOGY [place] Rapid 0.4 11/09/2018 [facility] HEMATOLOGY R-time Rapid 0.6 0.4 - 0.7 11/09/2018 [facility] HEMATOLOGY K-time Rapid 1.2 0.6 - 2.3 11/09/2018 [facility] HEMATOLOGY Angle Rapid 74 64 - 80 11/09/2018 [facility] HEMATOLOGY Max Amplitude Rapid 64 52 - 71 11/09/2018 [facility] HEMATOLOGY G-value Rapid 8.8 5.0 - 11.6 11/09/2018 [facility] HEMATOLOGY Estimated % Lysis Rapid 0 .1 0.0 - 7.5 11/09/2018 [facility] CARDIAC ENZYMES Total CK 181 12 - 191 11/09/2018 [facility] ELECTROLYTES AGAP 10.3 10.0 - 20.0 11/09/2018 [facility] ELECTROLYTES Glucose Lvl 154 70 - 99 11/09/2018 [facility] ELECTROLYTES BUN 12 7 - 22 11/09/2018 [facility] ELECTROLYTES Creatinine Lvl 1.4 3 0.50 - 1.40 11/09/2018 [facility] ELECTROLYTES Sodium Lvl 136 135 - 145 11/09/2018 [facility] ELECTROLYTES Potassium Lvl 3.3 3.5 - 5.1 11/09/2018 [facility] ELECTROLYTES Chloride Lvl 101 95 - 109 11/09/2018 [facility] ELECTROLYTES CO2 28 24 - 32 11/09/2018 [facility] ELECTROLYTES Calcium Lvl 9.0 8.5 - 10.5 11/09/2018 [facility] ELECTROLYTES eGFR 58 11/09/2018 Result [...] should be multiplied by the estimated BMI. [facility] HEMATOLOGY WBC 6.5 3.7 - 10.4 11/09/2018 [facility] HEMATOLOGY RBC 4.71 4.70 - 6.10 11/09/2018 [facility] HEMATOLOGY Hgb 14.9 14.0 - 18.0 11/09/2018 [facility] HEMATOLOGY Hct 42.5 42.0 - 54.0 11/09/2018 [facility] HEMATOLOGY MCV 90.2 80.0 - 94.0 11/09/2018 [facility] HEMATOLOGY MCH 31.7 27.0 - 31.0 11/09/2018 [facility] HEMATOLOGY MCHC 35.1 32.0 - 36.0 11/09/2018 [facility] HEMATOLOGY RDW 15.4 11.5 - 14.5 11/09/2018 [facility] HEMATOLOGY Platelet 226 133 - 450 11/09/2018 [facility] HEMATOLOGY MPV 7.6 7.4 - 10.4 11/09/2018 [facility] HEMATOLOGY PT 12.4 12.0 - 14.7 11/09/2018 [facility] HEMATOLOGY INR 0.94 0.85 - 1.17 11/09/2018 [facility] HEMATOLOGY PTT 30.9 22.9 - 35.8 11/09/2018 [facility] HEMATOLOGY Segs 54.6 45.0 - 75.0 11/09/2018 [facility] HEMATOLOGY Lymphocytes 32.0 20.0 - 40.0 11/09/2018 [facility] HEMATOLOGY Monocytes 9.8 2.0 - 12.0 11/09/2018 [facility] HEMATOLOGY Eosinophils 2.7 0.0 - 4.0 11/09/2018 [facility] HEMATOLOGY Basophils 0.9 0.0 - 1.0 11/09/2018 [facility] HEMATOLOGY Neutrophils # 3.6 1.5 - 8.1 11/09/2018 [facility] HEMATOLOGY Lymphocytes # 2.1 1.0 - 5.5 11/09/2018 [facility] HEMATOLOGY Monocytes # 0.6 0.0 - 0.8 11/09/2018 [facility] HEMATOLOGY Eosinophils # 0.2 0.0 - 0.5 11/09/2018 [facility] HEMATOLOGY Basophils # 0.1 0.0 - 0.2 11/09/2018 [facility] POCT GLUCOSE (AUTOMATED) POCT GLU 194 70 - 110 09/29/2018 [facility] POCT GLUCOSE (AUTOMATED) Lab Interpr etation Abnormal 09/29/2018 [facility] TROPONIN I TROPONIN I 0.002 <=0.034 09/29/2018 [facility] TROPONIN I <p>Equal or Less th an [...] relative to patient's use of biotin. 09/29/2018 [facility] TROPONIN I Lab Interpretation Merline l 09/29/2018 [facility] BASIC METABOLIC PANEL (NA, K, CL, CO2, G LUCOSE, BUN, CREATININE, CA) NA 137 135 - 145 09/29/2018 [facility] BASIC METABOLIC PANEL (NA, K, CL, CO2, G LUCOSE, BUN, CREATININE, CA) K 3.6 3.5 - 5 09/29/2018 [facility] BASIC METABOLIC PANEL (NA, K, CL, CO2, G LUCOSE, BUN, CREATININE, CA) CL 102 98 - 108 09/29/2018 [facility] BASIC METABOLIC PANEL (NA, K, CL, CO2, G LUCOSE, BUN, CREATININE, CA) CO2 TOTAL 27 23 - 31 09/29/2018 [facility] BASIC METABOLIC PANEL (NA, K, CL, CO2, G LUCOSE, BUN, CREATININE, CA) AGAP 8 2 - 16 09/29/2018 [facility] BASIC METABOLIC PANEL (NA, K, CL, CO2, G LUCOSE, BUN, CREATININE, CA) BUN 12 7 - 23 09/29/2018 [facility] BASIC METABOLIC PANEL (NA, K, CL, CO2, G LUCOSE, BUN, CREATININE, CA) GLUCOSE 231 70 - 110 09/29/2018 [facility] BASIC METABOLIC PANEL (NA, K, CL, CO2, G LUCOSE, BUN, CREATININE, CA) CREATININE 0.95 0.6 - 1.25 09/29/2018 [facility] BASIC METABOLIC PANEL (NA, K, CL, CO2, G LUCOSE, BUN, CREATININE, CA) CALCIUM 8.3 8.6 - 10.6 09/29/2018 [facility] BASIC METABOLIC PANEL (NA, K, CL, CO2, G LUCOSE, BUN, CREATININE, CA) eGFR Calculation (Non-) 84.6 mL/min/1.73m2 09/29/2018 [facility] BASIC METABOLIC PANEL (NA, K, CL, CO2, G LUCOSE, BUN, CREATININE, CA) eGFR Calculation () 102.6 mL/min/1.73m2 09/29/2018 [facility] BASIC METABOLIC PANEL (NA, K, CL, CO2, [...] urine or abnormalities in imaging tests). 09/29/2018 [facility] BASIC METABOLIC PANEL (NA, K, CL, CO2, G LUCOSE, BUN, CREATININE, CA) Lab Interpretation Abnormal 09/29/2018 [facility] MAGNESIUM MAGNESIUM 1.5 1.7 - 2.4 09/29/2018 [facility] MAGNESIUM Lab Interpretation Abnorm al 09/29/2018 [facility] D-DIMER D-DIMER 0.32 <0.50 g/mL (FEU) 09/29/2018 [facility] D-DIMER <p>This test may be us ed [...] in initial fibrinogen equivalent units (FEU). 09/29/2018 [facility] D-DIMER Lab Interpretation Normal 09/29/2018 [facility] N-TERMINAL PRO-BNP NT-proBNP 549 <=125 09/28/2018 [facility] N-TERMINAL PRO-BNP <p>Biotin h as been reported to cause a negative bias, interpret results relative to patient's use of biotin.</p> Biotin has been reported to cause a negative bias, interpret results relative to patient's use of biotin. 09/28/2018 [facility] N-TERMINAL PRO-BNP Lab Interpretatio n Abnormal 09/28/2018 [facility] CBC WITH DIFFERENTIAL <td ID="[id number]">WBC</td><td>5.62</td><td>4.20 - 10.70 10*3/L</td><td>[facility]</td><td ID="[id number]"/> 5.62 4.20 - 10.52446 09/28/2018 [facility] CBC WITH DIFFERENTIAL <td ID="[id number]">RBC</td><td><span style="flagData">4.06</span><span style="flagData"> (L)</span></td><td>4.26 - 5.52 10*6/L</td><td>[facility]</td><td ID="[id number]"/> 4.06 4.26 - 5.30780 09/28/2018 [facility] CBC WITH DIFFERENTIAL <td ID="[id number]">HGB</td><td>12.6</td><td>12.2 - 16.4 g/dL</td><td>[facility]</td><td ID="[id number]"/> 12.6 12.2 - 16.4 09/28/2018 [facility] CBC WITH DIFFERENTIAL <td ID="[id number]">HCT</td><td><span style="flagData">38.0</span><span style="flagData"> (L)</span></td><td>38.4 - 49.3 %</td><td>[facility]</td><td ID="[id number]"/> 38.0 38.4 - 49.3 09/28/2018 [facility] CBC WITH DIFFERENTIAL <td ID="[id number]">MCV</td><td>93.6</td><td>81.7 - 95.6 fL</td><td>[facility]</td><td ID="[id number]"/> 93.6 81.7 - 95.6 09/28/2018 [facility] CBC WITH DIFFERENTIAL <td ID="[id number]">MCH</td><td>31.0</td><td>26.1 - 32.7 pg</td><td>[facility]</td><td ID="[id number]"/> 31.0 26.1 - 32.7 09/28/2018 [facility] CBC WITH DIFFERENTIAL <td ID="[id number]">MCHC</td><td>33.2</td><td>31.2 - 35.0 g/dL</td><td>[facility]</td><td ID="[id number]"/> 33.2 31.2 - 35 09/28/2018 [facility] CBC WITH DIFFERENTIAL <td ID="[id number]">RDW-SD</td><td>47.1</td><td>38.5 - 51.6 fL</td><td>[facility]</td><td ID="[id number]"/> 47.1 38.5 - 51.6 09/28/2018 [facility] CBC WITH DIFFERENTIAL <td ID="[id number]">RDW-CV</td><td>14.0</td><td>12.1 - 15.4 %</td><td>[facility]</td><td ID="[id number]"/> 14.0 12.1 - 15.4 09/28/2018 [facility] CBC WITH DIFFERENTIAL <td ID="[id number]">PLT</td><td>200</td><td>150 - 328 10*3/L</td><td >[facility]</td><td ID="[id number]"/> 200 150 - [id number] 09/28/2018 [facility] CBC WITH DIFFERENTIAL <td ID="[id number]">MPV</td><td><span style="flagData">9.5</span><span style="flagData"> (L)</span></td><td>9.8 - 13.0 fL</td><td>[facility]</td><td ID="[id number]"/> 9.5 9.8 - 13 09/28/2018 [facility] CBC WITH DIFFERENTIAL NRBC/100 WBC 0.0 0.0 - 10.0100 09/28/2018 [facility] CBC WITH DIFFERENTIAL NRBC x10^3 <0.01 10*3/L 09/28/2018 [facility] CBC WITH DIFFERENTIAL <td ID="[id number]">GRAN MAT (NEUT) %</td><td>56.7</td><td>%</td><td>[facility]</td><td ID="[id number]"/> 56.7 09/28/2018 [facility] CBC WITH DIFFERENTIAL IMM GRAN % 2.10 09/28/2018 [facility] CBC WITH DIFFERENTIAL <td ID="[id number]">LYMPH %</td><td>29.0</td><td>%</td><td>[facility]</td><td ID="[id number]"/> 29.0 09/28/2018 [facility] CBC WITH DIFFERENTIAL <td ID="[id number]">MONO %</td><td>9.3</td><td>%</td><td>[facility]</td><td ID="[id number]"/> 9.3 09/28/2018 [facility] CBC WITH DIFFERENTIAL <td ID="[id number]">EOS %</td><td>2.5</td><td>%</td><td>[facility]</td><td ID="[id number]"/> 2.5 09/28/2018 [facility] CBC WITH DIFFERENTIAL <td ID="[id number]">BASO %</td><td>0.4</td><td>%</td><td>[facility]</td><td ID="[id number]"/> 0.4 09/28/2018 [facility] CBC WITH DIFFERENTIAL GRAN MAT x10^3 (ANC) 3.19 1.99 - 6.95 09/28/2018 [facility] CBC WITH DIFFERENTIAL IMM GRAN x10^3 0.12 0 - 0.06 09/28/2018 [facility] CBC WITH DIFFERENTIAL <td ID="[id number]">LYMPH x10^3</td><td>1.63</td><td>1.09 - 3.23 10*3/uL</td><td>[facility]</td><td ID="[id number]"/> 1.63 1.09 - 3.23 09/28/2018 [facility] CBC WITH DIFFERENTIAL <td ID="[id number]">MONO x10^3</td><td>0.52</td><td>0.36 - 1.02 10*3/uL</td><td>[facility]</td><td ID="[id number]"/> 0.52 0.36 - 1.02 09/28/2018 [facility] CBC WITH DIFFERENTIAL <td ID="[id number]">EOS x10^3</td><td>0.14</td><td>0.06 - 0.53 10*3/uL</td><td>[facility]</td><td ID="[id number]"/> 0.14 0.06 - 0.53 09/28/2018 [facility] CBC WITH DIFFERENTIAL <td ID="[id number]">BASO x10^3</td><td><0.03</td><td>0.01 - 0.09 10*3/uL</td><td[facility]</td><td ID="[id number]"/> <0.03 0.01 - 0.09 09/28/2018 [facility] CBC WITH DIFFERENTIAL Lab Interpreta tion Abnormal 09/28/2018 [facility] Chest 1 View <p> </p><p>Mild i nterstitial pulmonary edema.</p><p> </p><p>No focal consolidation to suggest pneumonia.</p><p> </p><p> </p><p> </p> Mild interstitial pulmonary edema. No f ocal consolidation to suggest pneumonia. 09/28/2018 [facility] Chest 1 View <p>* * * * [...] vascular prominence and prominent interstitialmarkings bilaterally. 09/28/2018 [facility] Chest 1 View <p styleCode="hea jonnie">[facility], Radiant Results Inft User - [...]

<span>No focal consolidation to suggest pneumonia.</span>

</p> [facility], Radiant Results Inft User - [...] No focal consolidation to suggest pneumonia. 09/28/2018 [facility] Troponin I TROPONIN I 0.001 <=0.034 09/28/2018 [facility] Troponin I <p>Equal or Less th [...] relative to patient's use of biotin. 09/28/2018 [facility] Troponin I Lab Interpretation Merline l 09/28/2018 [facility] Basic Metabolic Panel (NA, K, CL, CO2, G LUCOSE, BUN, CREATININE, CA) NA 137 135 - 145 09/28/2018 [facility] Basic Metabolic Panel (NA, K, CL, CO2, G LUCOSE, BUN, CREATININE, CA) K 3.6 3.5 - 5 09/28/2018 [facility] Basic Metabolic Panel (NA, K, CL, CO2, G LUCOSE, BUN, CREATININE, CA) CL 103 98 - 108 09/28/2018 [facility] Basic Metabolic Panel (NA, K, CL, CO2, G LUCOSE, BUN, CREATININE, CA) CO2 TOTAL 25 23 - 31 09/28/2018 [facility] Basic Metabolic Panel (NA, K, CL, CO2, G LUCOSE, BUN, CREATININE, CA) AGAP 9 2 - 16 09/28/2018 [facility] Basic Metabolic Panel (NA, K, CL, CO2, G LUCOSE, BUN, CREATININE, CA) BUN 13 7 - 23 09/28/2018 [facility] Basic Metabolic Panel (NA, K, CL, CO2, G LUCOSE, BUN, CREATININE, CA) GLUCOSE 157 70 - 110 09/28/2018 [facility] Basic Metabolic Panel (NA, K, CL, CO2, G LUCOSE, BUN, CREATININE, CA) CREATININE 0.88 0.6 - 1.25 09/28/2018 [facility] Basic Metabolic Panel (NA, K, CL, CO2, G LUCOSE, BUN, CREATININE, CA) CALCIUM 9.1 8.6 - 10.6 09/28/2018 [facility] Basic Metabolic Panel (NA, K, CL, CO2, G LUCOSE, BUN, CREATININE, CA) eGFR Calculation (Non-) 92.4 mL/min/1.73m2 09/28/2018 [facility] Basic Metabolic Panel (NA, K, CL, CO2, G LUCOSE, BUN, CREATININE, CA) eGFR Calculation () 112.0 mL/min/1.73m2 09/28/2018 [facility] Basic Metabolic Panel (NA, K, CL, CO2, [...] urine or abnormalities in imaging tests). 09/28/2018 [facility] Basic Metabolic Panel (NA, K, CL, CO2, G LUCOSE, BUN, CREATININE, CA) Lab Interpretation Abnormal 09/28/2018 [facility] aPTT <td ID="[id number] qf4Uoqm">APTT Patient</td><td>33</td><td>26 - 36 Seconds</td><td>[facility]</td><td ID="[id number]"/> 33 26 - 36 09/28/2018 [facility] aPTT Lab Interpretation Normal 09/28/2018 [facility] Prothrombin Time (PT) / INR <t d ID="[id number]">PROTIME PATIENT</td><td>11.1</td><td>10.1 - 12.6 Seconds</td><td>[facility]</td><td ID="[id number]"/> 11.1 10.1 - 12.6 09/28/2018 [facility] Prothrombin Time (PT) / INR <t d ID="[id number]">INR</td><td><span>1.0</span><span style="allIndent"><span style="cellHeader">Comment: </span><span ID="[id number]">Normal INR <1.1; Warfarin Therapeutic range 2.0 to 3.0 or 2.5 to 3.5, depending upon the indications.</span></span></td><td> </td><td>[facility]</td><td ID="[id number]"/> 1.0 09/28/2018 Normal INR <1.1; Warfarin Therapeutic range 2.0 to 3.0 or 2.5 to 3.5, depending upon the indications. [facility] Prothrombin Time (PT) / INR Lab Inte rpretation Normal 09/28/2018 [facility] POCT GLUCOSE (AUTOMATED) POCT GLU 387 70 - 110 09/20/2018 [facility] POCT GLUCOSE (AUTOMATED) Lab Interpr etation Abnormal 09/20/2018 [facility] Troponin I TROPONIN I 0.003 <=0.034 09/20/2018 [facility] Troponin I <p>Equal or Less th an [...] relative to patient's use of biotin. 09/20/2018 [facility] Troponin I Lab Interpretation Merline l 09/20/2018 [facility] Chest 1 View <p>Cardiomegaly w ith mild edema. No effusions.</p><p> </p><p> </p><p>RL: [id number]</p><p>AFC: [id number]</p><p> </p><p> </p> Cardiomegaly with mild edema. No effusions. RL: [id number]: [id number] 09/20/2018 [facility] Chest 1 View <p>Patient name: ARANZA WHITNEY</p><p>: [...] effusion or pneumothorax. Normal aortic contours. 09/20/2018 [facility] Chest 1 View <p styleCode="hea jonnie">[facility], Radiant Results Inft User - [...] mild edema. No effusions.</span>

<span>RL: 6200</span>
<span>AFC: [id number]</span>
<span> </span>
</p> [facility], Radiant Results Inft User - [...] mild edema. No effusions. RL: [id number] AFC: [id number] 09/20/2018 [facility] h DRUG SCREEN ER (URINE) AMPHET Negative Negative 09/20/2018 [facility] DRUG SCREEN ER (URINE) Cocaine Metab olite Negative Negative 09/20/2018 [facility] h DRUG SCREEN ER (URINE) OPIATES Negative Negative 09/20/2018 [facility] DRUG SCREEN ER (URINE) THC Negative Negative 09/20/2018 [facility] DRUG SCREEN ER (URINE) <p>Urin e Drug [...] ER (URINE) Lab Interpret ation Normal 09/20/2018 [facility] Troponin I TROPONIN I 0.000 <=0.034 09/20/2018 [facility] Troponin I <p>Equal or Less th an [...] relative to patient's use of biotin. 09/20/2018 [facility] Troponin I Lab Interpretation Merline l 09/20/2018 [facility] N-TERMINAL PRO-BNP NT-proBNP 91 <=125 09/20/2018 [facility] N-TERMINAL PRO-BNP <p>Biotin h as been reported to cause a negative bias, interpret results relative to patient's use of biotin.</p> Biotin has been reported to cause a negative bias, interpret results relative to patient's use of biotin. 09/20/2018 [facility] N-TERMINAL PRO-BNP Lab Interpretatio n Normal 09/20/2018 [facility] Basic Metabolic Panel (NA, K, CL, CO2, G LUCOSE, BUN, CREATININE, CA) NA 140 135 - 145 09/20/2018 [facility] Basic Metabolic Panel (NA, K, CL, CO2, G LUCOSE, BUN, CREATININE, CA) K 3.2 3.5 - 5 09/20/2018 [facility] Basic Metabolic Panel (NA, K, CL, CO2, G LUCOSE, BUN, CREATININE, CA) CL 99 98 - 108 09/20/2018 [facility] Basic Metabolic Panel (NA, K, CL, CO2, G LUCOSE, BUN, CREATININE, CA) CO2 TOTAL 25 23 - 31 09/20/2018 [facility] Basic Metabolic Panel (NA, K, CL, CO2, G LUCOSE, BUN, CREATININE, CA) AGAP 16 2 - 16 09/20/2018 [facility] Basic Metabolic Panel (NA, K, CL, CO2, G LUCOSE, BUN, CREATININE, CA) BUN 18 7 - 23 09/20/2018 [facility] Basic Metabolic Panel (NA, K, CL, CO2, G LUCOSE, BUN, CREATININE, CA) GLUCOSE 220 70 - 110 09/20/2018 [facility] Basic Metabolic Panel (NA, K, CL, CO2, G LUCOSE, BUN, CREATININE, CA) CREATININE 1.10 0.6 - 1.25 09/20/2018 [facility] Basic Metabolic Panel (NA, K, CL, CO2, G LUCOSE, BUN, CREATININE, CA) CALCIUM 9.3 8.6 - 10.6 09/20/2018 [facility] Basic Metabolic Panel (NA, K, CL, CO2, G LUCOSE, BUN, CREATININE, CA) eGFR Calculation (Non-) 71.4 mL/min/1.73m2 09/20/2018 [facility] Basic Metabolic Panel (NA, K, CL, CO2, G LUCOSE, BUN, CREATININE, CA) eGFR Calculation () 86.6 mL/min/1.73m2 09/20/2018 [facility] Basic Metabolic Panel (NA, K, CL, CO2, [...] urine or abnormalities in imaging tests). 09/20/2018 [facility] Basic Metabolic Panel (NA, K, CL, CO2, G LUCOSE, BUN, CREATININE, CA) Lab Interpretation Abnormal 09/20/2018 [facility] Hepatic Function Panel (ALB, T.PRO, BILI T, BU/BC, ALT, AST, ALK PHOS) TOTAL BILI 0.3 0.1 - 1.1 09/20/2018 [facility] Hepatic Function Panel (ALB, T.PRO, BILI T, BU/BC, ALT, AST, ALK PHOS) BILI UNCON 0.2 0.1 - 1.1 09/20/2018 [facility] Hepatic Function Panel (ALB, T.PRO, BILI T, BU/BC, ALT, AST, ALK PHOS) BILI CONJ 0.0 0 - 0.3 09/20/2018 [facility] Hepatic Function Panel (ALB, T.PRO, BILI T, BU/BC, ALT, AST, ALK PHOS) T PROTEIN 6.6 6.3 - 8.2 09/20/2018 [facility] Hepatic Function Panel (ALB, T.PRO, BILI T, BU/BC, ALT, AST, ALK PHOS) ALBUMIN 3.9 3.5 - 5 09/20/2018 [facility] Hepatic Function Panel (ALB, T.PRO, BILI T, BU/BC, ALT, AST, ALK PHOS) ALK PHOS 154 34 - 122 09/20/2018 [facility] Hepatic Function Panel (ALB, T.PRO, BILI T, BU/BC, ALT, AST, ALK PHOS) ALT(SGPT) 39 9 - 51 09/20/2018 [facility] Hepatic Function Panel (ALB, T.PRO, BILI T, BU/BC, ALT, AST, ALK PHOS) AST(SGOT) 21 13 - 40 09/20/2018 [facility] Hepatic Function Panel (ALB, T.PRO, BILI T, BU/BC, ALT, AST, ALK PHOS) Lab Interpretation Abnormal 09/20/2018 [facility] ETHANOL ALCOHOL <10 mg/dL 09/20/2018 [facility] ETHANOL <p>Toxic Greater than or equal to 80 mg/dL.</p><p>NOTE: Whole blood values are approximately 10% to 15% lower than serum and plasma.</p> Toxic Greater than or equal to 80 mg/dL. NOTE: Whole blood values are approximately 10% to 15% lower than serum and plasma. 09/20/2018 [facility] CBC WITH DIFFERENTIAL <td ID="[id number]">WBC</td><td>8.70</td><td>4.20 - 10.70 10*3/L</td><td>[facility]</td><td ID="[id number]"/> 8.70 4.20 - 10.16727 09/20/2018 [facility] CBC WITH DIFFERENTIAL <td ID="[id number]">RBC</td><td><span style="flagData">4.22</span><span style="flagData"> (L)</span></td><td>4.26 - 5.52 10*6/L</td><td>[facility]</td><td ID="[id number]"/> 4.22 4.26 - 5.34191 09/20/2018 [facility] CBC WITH DIFFERENTIAL <td ID="[id number]">HGB</td><td>13.2</td><td>12.2 - 16.4 g/dL</td><td>[facility]</td><td ID="[id number]"/> 13.2 12.2 - 16.4 09/20/2018 [facility] CBC WITH DIFFERENTIAL <td ID="[id number]">HCT</td><td>38.9</td><td>38.4 - 49.3 %</td><td>[facility]</td><td ID="[id number]"/> 38.9 38.4 - 49.3 09/20/2018 [facility] CBC WITH DIFFERENTIAL <td ID="[id number]">MCV</td><td>92.2</td><td>81.7 - 95.6 fL</td><td>[facility]</td><td ID="[id number]"/> 92.2 81.7 - 95.6 09/20/2018 [facility] CBC WITH DIFFERENTIAL <td ID="[id number]">MCH</td><td>31.3</td><td>26.1 - 32.7 pg</td><td>[facility]</td><td ID="[id number]"/> 31.3 26.1 - 32.7 09/20/2018 [facility] CBC WITH DIFFERENTIAL <td ID="[id number]">MCHC</td><td>33.9</td><td>31.2 - 35.0 g/dL</td><td>[facility]</td><td ID="[id number]"/> 33.9 31.2 - 35 09/20/2018 [facility] CBC WITH DIFFERENTIAL <td ID="[id number]">RDW-SD</td><td>47.6</td><td>38.5 - 51.6 fL</td><td>[facility]</td><td ID="[id number]"/> 47.6 38.5 - 51.6 09/20/2018 [facility] CBC WITH DIFFERENTIAL <td ID="[id number]">RDW-CV</td><td>14.3</td><td>12.1 - 15.4 %</td><td>[facility]</td><td ID="[id number]"/> 14.3 12.1 - 15.4 09/20/2018 [facility] CBC WITH DIFFERENTIAL <td ID="[id number]">PLT</td><td>217</td><td>150 - 328 10*3/L</td><td >[facility]</td><td ID="[id number]"/> 217 150 - 441787 09/20/2018 [facility] CBC WITH DIFFERENTIAL <td ID="[id number]">MPV</td><td><span style="flagData">9.7</span><span style="flagData"> (L)</span></td><td>9.8 - 13.0 fL</td><td>[facility]</td><td ID="[id number]"/> 9.7 9.8 - 13 09/20/2018 [facility] CBC WITH DIFFERENTIAL NRBC/100 WBC 0.0 0.0 - 10.0100 09/20/2018 [facility] CBC WITH DIFFERENTIAL NRBC x10^3 <0.01 10*3/L 09/20/2018 [facility] CBC WITH DIFFERENTIAL <td ID="[id number]">GRAN MAT (NEUT) %</td><td>67.6</td><td>%</td><td>[facility]</td><td ID="[id number]"/> 67.6 09/20/2018 [facility] CBC WITH DIFFERENTIAL IMM GRAN % 1.10 09/20/2018 [facility] CBC WITH DIFFERENTIAL <td ID="[id number]">LYMPH %</td><td>21.7</td><td>%</td><td>[facility]</td><td ID="[id number]"/> 21.7 09/20/2018 [facility] CBC WITH DIFFERENTIAL <td ID="[id number]">MONO %</td><td>7.6</td><td>%</td><td>[facility]</td><td ID="[id number]"/> 7.6 09/20/2018 [facility] CBC WITH DIFFERENTIAL <td ID="[id number]">EOS %</td><td>1.7</td><td>%</td><td>[facility]</td><td ID="[id number]"/> 1.7 09/20/2018 [facility] CBC WITH DIFFERENTIAL <td ID="[id number]">BASO %</td><td>0.3</td><td>%</td><td>[facility]</td><td ID="[id number]"/> 0.3 09/20/2018 [facility] CBC WITH DIFFERENTIAL GRAN MAT x10^3 (ANC) 5.87 1.99 - 6.95 09/20/2018 [facility] CBC WITH DIFFERENTIAL IMM GRAN x10^3 0.10 0 - 0.06 09/20/2018 [facility] CBC WITH DIFFERENTIAL <td ID="[id number]">LYMPH x10^3</td><td>1.89</td><td>1.09 - 3.23 10*3/uL</td><td>[facility]</td><td ID="[id number]"/> 1.89 1.09 - 3.23 09/20/2018 [facility] CBC WITH DIFFERENTIAL <td ID="[id number]">MONO x10^3</td><td>0.66</td><td>0.36 - 1.02 10*3/uL</td><td>[facility]</td><td ID="[id number]"/> 0.66 0.36 - 1.02 09/20/2018 [facility] CBC WITH DIFFERENTIAL <td ID="[id number]">EOS x10^3</td><td>0.15</td><td>0.06 - 0.53 10*3/uL</td><td>[facility]</td><td ID="[id number]"/> 0.15 0.06 - 0.53 09/20/2018 [facility] CBC WITH DIFFERENTIAL <td ID="[id number]">BASO x10^3</td><td>0.03</td><td>0.01 - 0.09 10*3/uL</td><td>[facility]</td><td ID="[id number]"/> 0.03 0.01 - 0.09 09/20/2018 [facility] CBC WITH DIFFERENTIAL Lab Interpreta tion Abnormal 09/20/2018 [facility] Pathology Reports No Data Provided for [...] consolidation. Landry Dhaliwal MD On 07/12/2019 01:54:55; [id number] 07/12/2019 [facility] Brain wo contrast MRI PROCEDUR E INFORMATION: [...] detected. Son Hammonds MD On 07/11/2019 07:30:47; [id number] 07/10/2019 [facility] Brain/Neck STROKE CTA Radiatio n Dose CTDIVOL [...] 10. Son Hammonds MD On 07/10/2019 16:40:37; [id number] 07/10/2019 [facility] 1view DX PROCEDURE INFOR MATION: Exam: XR [...] finding Vipul Gutiérrez MD On 07/10/2019 14:34:15; [id number] 07/10/2019 [facility] Brain Stroke wo contrast CT Ra diation Dose CTDIVOL = 0 (mGy): DLP = 1025.02 (mGy-cm) Findings were discussed with Nurys Licona RN at 07/10/2019 1:37 PM CDT. ER physicians are currently attending to patients. Nadeem Cruz MD On 07/10/2019 13:37:34; [id number] Radiation Dose CTDIVOL = 0 (mGy): DLP [...] 10. Nadeem Cruz MD On 07/10/2019 13:31:56; [id number] 07/10/2019 [facility] Carotid artery Doppler bilat US PROCEDURE INFORMATION: [...] identified. Russell Ballesteros MD On 03/13/2019 01:12:38; [id number] 03/13/2019 [facility] Brain wo contrast CT Radiation Dose CTDIVOL [...] recommended. Shayla Bonilla MD On 03/12/2019 15:14:25; [id number] 03/12/2019 [facility] 1view DX PROCEDURE INFOR MATION: Exam: XR [...] Ashley MD On 03/12/2019 14:30:49; [id number] 03/12/2019 [facility] CTA UT SECTION: VIR EXAM : CTA CHEST WITH CONTRAST DATE: 01/11/2019 14:30 THERAPIST RESPIRATORY INDICATION: - history of aortic dissection, now [...] event visualized no change from 11/08/2018 01/11/2019 [facility] Chest 2 views DX EXAM: XR CHES T 2 VIEWS DATE: 01/11/2019 14:06 THERAPIST RESPIRATORY INDICATION: - chest pain radiating to L [...] 1. No acute cardiopulmonary abnormality . 01/11/2019 [facility] Brain wo contrast CT EXAM: [...] or acute hemorrhage. Stable since prior 11/09/2018 [facility] Abdomen AP DX EXAM: XR [...] right paravertebral location at L2-L3 level. 11/09/2018 [facility] Chest/Abd/Pelvis CTA EXAM: CTA CHEST [...] Galloway M.D. Fellow Physician, Interventional Radiology 11/08/2018 [facility] Brain Stroke wo contrast CT [...] be considered in the differential diagnosis. 11/08/2018 [facility] Brain/Neck Stroke perfusion CTA EXAM: [...] a calcification in its presumed origin. The [place] of [place] is normal. There is no [...] distal internal carotid artery {NASCET criteria}.) 11/08/2018 [facility] Chest 1view DX EXAM: XR [...] improved inspiratory volume. UT SECTION: ER 11/08/2018 [facility] CT THORAX WO CONTRAST No thor acic aortic aneurysm. No displacement of aortic wall calcificationto indirectly suggest dissection. Focal groundglass attenuation in the anterior right upper lobe, similar tothe previous exam. This may reflect persistent pneumonia. Continuedfollow-up is recommended to ensure resolution. Subsegmental atelectasis in the lung bases. RL: 460 AFC: [id number] physician: ANNETTE QUEZADA INDICATION: Chest pain COMPARISON: [...] is subsegmental atelectasis in the lung bases. [facility], Radiant Results Inft User - [...] in the lung bases. RL: 460 AFC: [id number] 09/20/2018 [facility] Consultation Notes No Data Provided for This Section Discharge Summaries No Data Provided for This Section History and Physicals No Data Provided for This Section Vital Signs Vital Sign Value Date Comments Source Systolic (mm Hg) 109 07/12/2019 [facility] Diastolic (mm Hg) 53 07/12/2019 [facility] Heart Rate 90 07/12/2019 [facility] Respitory Rate 18 07/12/2019 [facility] Temperature Oral (F) 99.9 F 07/12/2019 [facility] Systolic (mm Hg) 106 07/12/2019 [facility] Diastolic (mm Hg) 90 07/12/2019 [facility] Systolic (mm Hg) 140 07/12/2019 [facility] Diastolic (mm Hg) 57 07/12/2019 [facility] [...] Hg) 68 07/11/2019 [facility] Weight 182.045 07/11/2019 [facility] Temperature Oral (F) 97.8 F 07/11/2019 [facility] Heart Rate 79 07/11/2019 [facility] Systolic (mm Hg) 132 07/11/2019 [facility] Diastolic (mm Hg) 70 07/11/2019 [facility] Respitory Rate 14 07/11/2019 [facility] Temperature Oral (F) 98.3 F 07/11/2019 [facility] Heart Rate 82 07/11/2019 [facility] Respitory Rate 16 07/11/2019 [facility] Systolic (mm Hg) 96 07/11/2019 [facility] Diastolic (mm Hg) 46 07/11/2019 [facility] Height 187.96 cm 07/11/2019 [facility] Weight 181.818 07/11/2019 [facility] BMI Calculated 51.46 07/11/2019 [facility] Height 187.96 cm 07/10/2019 [facility] BMI Calculated 51.46 07/10/2019 [facility] Weight 181.818 07/10/2019 [facility] Respitory Rate 16 03/13/2019 [facility] Temperature Oral (F) 98.2 F 03/13/2019 [facility] [...] [facility] Systolic (mm Hg) 92 03/13/2019 [facility] Diastolic (mm Hg) 54 03/13/2019 [facility] Height 187.96 cm 03/13/2019 [facility] Weight 190.909 03/13/2019 [facility] BMI Calculated 54.04 03/13/2019 [facility] Height 187.96 cm 03/12/2019 [facility] BMI Calculated 53.14 03/12/2019 [facility] Weight 187.727 03/12/2019 [facility] Systolic (mm Hg) 106 01/11/2019 [facility] Diastolic (mm Hg) 71 01/11/2019 [facility] Temperature Oral (F) 98.3 F 01/11/2019 [facility] Systolic (mm Hg) 119 01/11/2019 [facility] Diastolic (mm Hg) 72 01/11/2019 [facility] Systolic (mm Hg) 107 01/11/2019 [facility] Diastolic (mm Hg) 67 01/11/2019 [facility] Heart Rate 20 01/11/2019 [facility] Respitory Rate 20 01/11/2019 [facility] Temperature Oral (F) 98.4 F 01/11/2019 [facility] Height 187.96 cm 01/11/2019 [facility] BMI Calculated 52.49 01/11/2019 [facility] Weight 185.455 01/11/2019 [facility] Temperature Oral (F) 98.1 F 11/11/2018 [facility] Heart Rate 77 11/11/2018 [facility] Respitory Rate 18 11/11/2018 [facility] Systolic (mm Hg) 139 11/11/2018 [facility] Diastolic (mm Hg) 69 11/11/2018 [facility] Temperature Oral (F) 98.2 F 11/11/2018 [facility] Heart Rate 81 11/11/2018 [facility] Respitory Rate 18 11/11/2018 [facility] Systolic (mm Hg) 139 11/11/2018 [facility] Diastolic (mm Hg) 74 11/11/2018 [facility] Temperature Oral (F) 98.1 F 11/11/2018 [facility] Heart Rate 82 11/11/2018 [facility] Respitory Rate 18 11/11/2018 [facility] Systolic (mm Hg) 135 11/11/2018 [facility] Diastolic (mm Hg) 70 11/11/2018 [facility] Height 187.96 cm 11/09/2018 [facility] Weight 190 11/09/2018 [facility] BMI Calculated 53.78 11/09/2018 [facility] Systolic (mm Hg) 126 09/29/2018 [facility] Diastolic (mm Hg) 92 09/29/2018 [facility] Heart Rate 87 09/29/2018 [facility] Temperature Oral (F) 36.72 Rose 09/29/2018 [facility] Respitory Rate 18 09/29/2018 [facility] Weight 194 09/29/2018 [facility] Height 188 cm 09/28/2018 [facility] Systolic (mm Hg) 97 09/20/2018 [facility] Diastolic (mm Hg) 58 09/20/2018 [facility] Heart Rate 98 09/20/2018 [facility] Temperature Oral (F) 35.22 Rose 09/20/2018 [facility] Respitory Rate 18 09/20/2018 [facility] Height 188 cm 09/20/2018 [facility] Weight 197.632 09/20/2018 [facility] Encounters Location Location Details Encounter Type Encounter Number Reason For Visit Attending Provider ADM Date DC Date Status Source Outpatient [id number] TANA BENNETT 01/08/2016 Active [facility] Orders Only [id number] No Doctor Unassigned 09/15/2018 [facility] Medicine/Surgery CLC 4A Emergency [id number] Annette Quezada MD 09/20/2018 09/20/2018 [facility] CT/ Vascular (LIZ 9A) Emergency [id number] Bernarda Solano DNP 09/2809/29/2018 [facility] Inpatient [id number] Qing Staples 11/09/2018 11/11/2018 [facility] Emergency [id number] Eric Romero 01/11/2019 01/11/2019 [facility] Observation [id number] Mo Dawson 03/12/2019 03/13/2019 [facility] Observation [id number] Jimena Hester 07/10/2019 07/11/2019 [facility] Emergency [id number] Wesley Bunn 07/12/2019 07/12/2019 [facility] Procedures Procedure Code Date Perfomer Comments Source ECHO ROUTINE W/DOPPLER COLOR 40 09/29/2018 [facility] POCT GLUCOSE (AUTOMATED) 87865 09/29/2018 [facility] MAGNESIUM [id number] 09/29/2018 [facility] XR CHEST 1 VW 99251 09/29/2018 [facility] TROPONIN I 82110 09/29/2018 [facility] BASIC METABOLIC PANEL (NA, K, CL, CO2, G LUCOSE, BUN, [place]ATININE, [place]) [address] 09/29/2018 [facility] CBC WITH DIFF 42166 09/29/2018 [facility] N-TERMINAL PRO-BNP [id number] 09/29/2018 [facility] CBC WITH DIFFERENTIAL 72461 09/29/2018 [facility] PROTHROMBIN TIME / INR 74925 09/29/2018 [facility] D-DIMER 39286 09/29/2018 [facility] ACTIVATED PARTIAL THRMPLAS GIRISH 96761 09/29/2018 [facility] EXTRA TUBE LAV 69881 09/29/2018 [facility] EKG-12 LEAD 4135 09/29/[address] [facility] [address] THORAX WO CONTRAST 21731 09/20/2018 [facility] GALV/CLC ONLY - URINE DRUG (IMMUNOASSAY) - 4 ER PANEL 83886 09/20/2018 [facility] HEPATIC FUNCTION PANEL (30984) (ALB,T.MT O,BILI T,BU/BC,ALT,AST,ALK PHOS) 20295 09/20/2018 [facility] ETHANOL 85185 09/20/2018 [facility] EXTRA TUBE LT. BLUE 01278 09/20/2018 [facility] EXTERNAL PROVIDER RECORDS [id number] 09/15/2018 Doctor Unassigned [facility] Aortic aneurysm repair [id number] 07 [facility] Back care<sup>1</sup> [id number] Pt states he has a titanium tube in his back due to spinal stenosis [facility] Cholecystectomy [id number] [facility] IVC - Insertion of inferior vena caval filter [id number] [facility] Nephrectomy<sup>2</sup> 203983 003 left [facility] Procedure on bone<sup>3</sup> [id number] titanium p late in neck [facility] Surgical procedure on cervical spine [id number] [facility] Assessment and Plan Assessment and Plan Date [...] Location, Expected LOS: 1 Midnight, Jimena Hester [facility] DO, Admit Review/Approve Yes, Isolation: Contact, Droplet, CVA (cerebral vascular accident) xarelto [facility] vs SNF pending PT/OT eval. anticipate 1 midnight stay. 07/11/2019 [facility] Extracted from:Title: Overnight Events Author: Shari Feliciano [...] to leave his room. 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 Patient requested to speak to me again. [...] Prognosis guarded PT/OT DVT prophylaxisLovenox SC 03/13/2019 [facility] Plan of Care Plan of Care Date Source CREATININE (SERUM) 09/29/2019 [facility] CREATININE (SERUM) 09/20/2019 [facility] CREATININE (SERUM) 09/05/2019 [facility] LDL-C 07/15/2019 [facility] HgA1C 01/14/2019 [facility] INFLUENZA VACCINE 10/19/2018 [facility] EKG-12 LEAD ROUTINE HEART STATION Routine ONCE for 1 Occurrences starting 09/29/2018 until 09/29/2018 09/29/2018 [facility] Troponin I LAB Routine EVERY 6 HOURS (START TIME ADJUSTABLE) START TIME ADJUSTABLE for 3 Occurrences starting 09/20/2018 until 09/20/2018, 1 completed 09/20/2018 [facility] DTaP,Tdap,and Td Vaccines (1 - Tdap) 1989 [facility] FOOT EXAM 1988 [facility] EYE EXAM 1980 [facility] PNEUMOCOCCAL 0-64 YEARS COMBINED SERIES (1 of 1 - PPSV23) 1976 [facility] Social History Social History Date Source [...] hundred pounds i lost theweightbyhaving cancer" 11/09/2018 [facility] Social History TypeResponse Alcohol Never [...] hundred pounds i lost theweightbyhaving cancer" 11/09/2018 [facility] Tobacco UseTypesPacks/DayYears UsedDate Current Some Day Smoker [...] available. documented as of this encounter 09/28/2018 [facility] Family History No Data Provided for This Section Advance Directives No Data Provided for This Section Functional Status No Data Provided for This Section
--- OUTSIDE RECORDS SUMMARY | 2019-07-28 00:24 | XMS REPORT | Continuity of Care Document ---
Author Author [facility] t Organization [facility] Address [address] [place] [address] Phone Unavailable Care Team Providers Care Professor Of Nursing Name Role Phone NONSTAFF PCP Unavailable KOTA DILL Attphys Unavailable Nilson Bunn Attphys Josue Hester Attphys Joie Philip Attphys Dai Quinones MD Attphys Dai QUINONES Attphys Unavailable Pavan Romero Attphys Samir Skaggs MD Attphys Radu LOGAN, Irvin Attphys Lara LOGAN, Mann Attphys Ladonna LOGAN, Momo Attphys SAMIR SKAGGS Attphys Unavailable Maggie LOGAN, Damian Attphys Merchant LOGAN, Erick Attphys Dejuan LOGAN, Cary Winters Attphys [phone] Jimmy LOGAN, Kelly Attphys Liset LOGAN, Lupe Attphys CARY ZAIDI Attphys Unavailable Ellis LOGAN, Unique Palaciou Attphys [phone] Rafeal LOGAN, Caroline Attphys Joe LOGAN, Ekaterina Neal Attphys [phone] UNIQUE CORRAL Attphys Unavailable Norma Staples Qing Attphys Kassandra HARMAN Attphys Unavailable REUBEN, Mattie WHEAT Attphys Unavailable Toby Solano DNP, Cindy Menchaca Attphys [phone] Sony CASTILLO, Breezy Mccabe Attphys [phone] [place] LOGAN, Cleve Beyer Attphys [phone] Damien LOGAN, Logan Attphys Varsha Espinal MD, Ana Attphys Doctor Unassigned, Name No Attphys Unavailable KIRSTEN T MCBRIDE Attphys Unavailable MATTY, S AMBICA Attphys Unavailable DEXTER DILL Attphys Unavailable Jean Carlos CLOUDOLPH Attphys Unavailable Jean Carlos IVERSON Attphys Unavailable RASSOLI, AMIR Attphys Unavailable Divinsky, Ianir Attphys Unavailable Kacie, Josue Sorensen Jimena Admphys Presley Dawson Admphys IRVIN MINOR Admphys Unavailable DAMIAN ZAMORA Admphys Unavailable LUPE BELLAMY Admphys Unavailable JOE, EKATERINA NEAL Admphys Unavailable Norma Staples Qing Admphys Mattie ALEXIS Admphys Unavailable Sony SORENSON, Breezy Mccabe Admphys [phone] Varsha Espinal MD, Ana Admphys DEXTER DILL Admphys Unavailable RASSOLI, AMIR Admphys Unavailable Divinsky, Ianir Admphys Unavailable Payers Payer Name Policy Type Policy Number Effective Date Expiration Date S lucianoce MEDICAID - MEDICAID MGD CARED COMM STAR PLANxxxxxxxxxMe dicaid Contracted xxxxxxxxx [facility] Star Com [id number] 2017 00:00 :00 [facility] MEDICAID[place]HC COMM STAR+ [id number] [id number] 2015 00:00:00 [facility] Problems Condition Name Condition Details Condition Category Status Onset Date Resolution Date Last Treatment Date Treating Clinician Comments Source SOB SOB Active 07/12/2019 [facility] Active 2019-07-12 00:00:00 2019-07-12 01:15:00 [facility] STRO[facility] STRO KE Active 07/10/2019 [facility] Diagnosis Active 2019-07-10 00:00:00 2019-07-10 16:06:00 [facility] CVA CVA Active 07/10/2019 [facility] Diagnosis Active 2019-07-10 00:00:00 2019-07-20 21:48:00 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 pectoris Disease Active 2019-01-03 00:00:00 [facility] Other chest pain Other chest pain Disease Active 2018-12-26 00:00:00 [facility] Chest pain with high risk of acute coronary syndrome C hest pain with high risk of acute coronary syndrome Disease Active 2018-12-25 00:00:00 [facility] A-fib A-fib Disease Active 2018-12-07 00:00:00 [facility] Essential hypertension Essential hypertension Disease Active 2018-12-07 00:00:00 [facility] Acute chest pain Acute chest pain Disease Active 2018-11-30 00:00:00 [facility] ACUTE ISCHEMIC STROKE ACUT E ISCHEMIC STROKE Active 11/08/2018 [facility] Diagnosis Active 2018-11-08 00:00:00 2018-11-28 21:54:00 Robert Siddiqui Tachycardia Tach ycardia Active 09/05/2018 09/29/2018 [facility] Health Condition Active 2018-09-05 00:00:00 2018-09-29 23:05:02 Robert Siddiqui Chronic obstructive pulmonary disease with acute exace rbation Chronic obstructive pulmonary disease with acute exacerbation Active 07/15/2018 09/29/2018 [facility] Health Condition Active 2018-07-15 00:00:00 2018-09-29 23:05:02 Robert Siddiqui Atrial fibrillation Atri al fibrillation Active 07/15/2018 09/29/2018 [facility] Health Condition Active 2018-07-15 00:00:00 2018-09-29 23:05:02 Robert Siddiqui Hypokalemia Hypo kalemia Active 07/15/2018 09/29/2018 [facility] Health Condition Active 2018-07-15 00:00:00 2018-09-29 23:05:02 [facility] Hypocalcemia Hypo calcemia Active 07/15/2018 09/29/2018 [facility] Health Condition Active 2018-07-15 00:00:00 2018-09-29 23:05:02 Robert Siddiqui Hypomagnesemia Hypo magnesemia Active 07/15/2018 09/29/2018 [facility] Health Condition Active 2018-07-15 00:00:00 2018-09-29 23:05:0 2 Robert Siddiqui Chest pain Ches t pain Active 07/14/2018 09/29/2018 [facility] Health Condition Active 2018-07-14 00:00:00 2018-09-29 23:05:02 [facility] Hypothyroid Hypo thyroid Active 07/14/2018 09/29/2018 [facility] Health Condition Active 2018-07-14 00:00:00 2018-09-29 23:05:02 Robert Siddiqui Emphysema lung Emph ysema lung Active 07/14/2018 09/29/2018 [facility] Health Condition Active 2018-07-14 00:00:00 2018-09-29 23:05:0 2 Robert Siddiqui DM (diabetes mellitus) DM ( diabetes mellitus) Active 07/14/2018 09/29/2018 [facility] Health Condition Active 2018-07-14 00:00:00 2018-09-29 23:05:02 Robert Siddiqui Chest pain due to coronary artery disease Chest pain due to coronary artery disease Active 07/07/2018 09/29/2018 [facility] Health Condition Active 2018-07-07 00:00:00 2018-09-29 23:05:02 Robert Siddiqui Chest pain at rest Ches t pain at rest Active 06/29/2018 09/29/2018 [facility] Health Condition Active 2018-06-29 00:00:00 2018-09 23:05:02 Robert Siddiqui Morbid obesity with body mass index of 50 or higher Morbid obesity with body mass index of 50 or higher Active 06/20/2018 09/29/2018 [facility] Health Condition Active 2018-06-20 00:00:00 2018-09-29 23:05:0 2 Robert Siddiqui Chest pain, rule out acute myocardial infarction Chest pain, rule out acute myocardial infarction Disease Active 2018-05-03 00:00:00 Eliel Garcia Physical deconditioning Physical deconditioning Disease Active 2018-04-25 00:00:00 [facility] Impaired mobility and ADLs Impaired mobility and ADLs Disease Active 2018-04-25 00:00:00 [facility] Impaired gait and mobility Impaired gait and mobility Disease Active 2018-04-25 00:00:00 [facility] At risk for falls At risk for falls Disease Active 2018-04-25 00:00:00 [facility] Bilateral swelling of feet Bilateral swelling of feet Disease Active 2016-01-22 00:00:00 [facility] Chest pain Chest pain Disease Active 2016-01-21 00:00:00 [facility] Precordial pain Precordial pain Disease Active 2016-01-21 00:00:00 [facility] Backache (finding) Back ache (finding) Active 10/03/2010 Problem 07/14/2019 [facility] Problem Active 2010-10-03 00:00:00 2019-07-14 21:06:28 [facility] Psychiatric problem Psychiatric problem Disease Active 2010-07-04 00:00 :00 [facility] Pulmonary embolus Pulmonary embolus Disease Active 2010-07-03 00:00:00 [facility] Syncope Syncope Problem Active [facility] Transient ischemic attack TIA (transient ischemic attack) Problem Active [facility] Hypertension Hypertension Problem Active [facility] Obesity Obesity Problem Active [facility] Anxiety (finding) Anxi ety (finding) Resolved Problem 07/14/2019 [facility] Problem Resolved 2019-07-14 21:06:28 Robert Sididqui Aortic aneurysm repair (procedure) Aortic aneurysm repair (procedure) Resolved Problem 07/14/2019 [facility] Problem Resolved 2019-07-14 21:06:28 [facility] mariana Siddiqui Bipolar I disorder (disorder) Bipolar I disorder (disorder) Resolved Problem 07/14/2019 [facility] Problem Resolved 2019-07-14 21:06:28 [facility] Cervical post-laminectomy syndrome (disorder) Cervical post-laminectomy syndrome (disorder) Resolved Problem 07/14/2019 [facility] Problem Resolved 2019-07-14 21:06:28 Robert Siddiqui Cholecystectomy (procedure) Ch olecystectomy (procedure) Resolved Problem 07/14/2019 [facility] Problem Resolved 2019-07-14 21:06:28 Dru Siddiqui Cerebrovascular accident (disorder) Cerebrovascular accident (disorder) Resolved Problem 07/14/2019 [facility] Problem Resolved 2019-07-14 21:06:28 Alan Siddiqui Hodgkin's disease (disorder) H odgkin's disease (disorder) Resolved Problem 07/14/2019 [facility] Problem Resolved 2019-07-14 21:06:28 [facility] Depressive disorder (disorder) Depressive disorder (disorder) Resolved Problem 07/14/2019 [facility] Problem Resolved 2019-07-14 21:06:28 [facility] Myocardial infarction (disorder) Myocardial infarction (disorder) Resolved Problem 07/14/2019 [facility] Problem Resolved 2019-07-14 21:06:28 [facility] Total nephrectomy (procedure) Total nephrectomy (procedure) Resolved Problem 07/14/2019 left kidney [facility] Problem Resolved 2019-07-14 21:06:28 [facility] orimary Hdezann Cervico-occipital neuralgia (finding) Cervico-occipital neuralgia (finding) Resolved Problem 07/14/2019 [facility] Problem Resolved 2019-07-14 21:06:28 [facility] orimary Siddiqui Pneumonia (disorder) Pneu monia (disorder) Resolved Problem 07/14/2019 [facility] Problem Resolved 2019-07-14 21:06:28 [facility] Posttraumatic stress disorder (disorder) Posttraumatic stress disorder (disorder) Resolved Problem 07/14/2019 [facility] Problem Resolved 2019-07-14 21:06:28 Pa fransisca Siddiqui Congestive heart failure (disorder) Congestive heart failure (disorder) Active Problem 07/14/2019 [facility] Problem Active 2019-07-14 21:06:28 [facility] Chronic obstructive lung disease (disorder) Chronic obstructive lung disease (disorder) Active Problem 07/14/2019 [facility] Problem Active 2019-07-14 21:06:28 [facility] Deep venous thrombosis (disorder) Deep venous thrombosis (disorder) Active Problem 07/14/2019 [facility] Problem Active 2019-07-14 21:06:28 Alanguillermo jessicakassandra Artur Heterozygous Factor V Leiden mutation (disorder) Heterozygous Factor V Leiden mutation (disorder) Active Problem 07/14/2019 [facility] Problem Active 2019-07-14 21:06:28 [facility] History of - Deep Vein Thrombosis (context-dependent c ategory) History of - Deep Vein Thrombosis (context-dependent category) Active Problem 07/14/2019 [facility] Problem Active 2019-07-14 21:06:28 [facility] History of - CVA (context-dependent category) History of - CVA (context-dependent category) Active Problem 07/14/2019 [facility] Problem Active 2019-07-14 21:06:28 [facility] History of repair of ascending aorta (situation) History of repair of ascending aorta (situation) Active Problem 07/14/2019 [facility] Problem Active 2019-07-14 21:06:2 8 Robert Siddiqui Hyperlipidemia (disorder) Hype rlipidemia (disorder) Active Problem 07/14/2019 [facility] Problem Active 2019-07-14 21:06:28 Robert Siddiqui Smokes tobacco daily (finding) Smokes tobacco daily (finding) Active Problem 07/14/2019 [facility] Problem Active 2019-07-14 21:06:28 Dur Siddiqui Chest pain, unspecified type C hest pain, unspecified type Active 09/29/2018 [facility] Health Diagnosis Active 2018-09-29 2 3:05:02 Robert Siddiqui Angina at rest Flora na at rest Active 09/20/2018 [facility] Diagnosis Active 2018-09-20 20:03:46 M paulina Siddiqui Acute on chronic congestive heart failure, unspecified heart failure type Acute on chronic congestive heart failure, unspecified heart failure type Active 09/29/2018 [facility] Diagnosis Active 2018-09-29 23:05:02 Robert Siddiqui CEREBRAL INFARCTION, UNSPECIFIED CEREBRAL INFARCTION, UNSPECIFIED Active [facility] Diagnosis Active 2018-11-28 21:54:00 Robert Siddiqui CHEST PAIN, UNSPECIFIED CHES T PAIN, UNSPECIFIED Active [facility] Diagnosis Active 2019-03-13 15:18:00 Robert Siddiqui Nausea with vomiting, unspecified Nausea with vomiting, unspecified 07/12/2019 07/14/2019 [facility] Problem 20 08-07-23 17:00:00 2019-07-14 21:06:28 2019-07-14 21:06:28 Robert Siddiqui Fever, unspecified Feve r, unspecified 07/12/2019 07/14/2019 [facility] Problem 2019-07-12 17:00:00 2019-07-14 21:06:28 2019-07-14 21:06:28 Robert Siddiqui Other chest pain Othe r chest pain 01/11/2019 01/13/2019 [facility] Problem 2019-01-11 18:00:00 2018-12 22:38:37 2019-01-13 22:38:37 Robert Siddiqui Allergies, Adverse Reactions, Alerts Allergy Name Allergy Type Status Severity Reaction(s) Onset Date Inacti ve Date Treating Clinician Comments Source Hydrocodone-Acetaminophen Propensity to adverse reactions Active 2018-12-07 00:00:00 [facility] Tape, Occlusive Adhesive Propensity to adverse reactions Active 2018-12-07 00:00:00 PAPER TAPE [facility] Ketorolac Drug Allergy Active Hives 2018-11-30 00:00:00 [facility] Tramadol Propensity to adverse reactions Active 2018-11 00:00:00 "sick" [facility] Ketorolac Tromethamine Ketorolac Tromethamine Active H daniel 2018-09-19 00:00:00 [facility] morphine DA Active U 2018-08-05 00:00:00 [facility] ampicillin DA Active SV 2018-08-04 00:00:00 [facility] tramadol DA Active U 2018-08-04 00:00:00 [facility] gabapentin DA Active SV 2018-08-04 00:00:00 [facility] metoclopramide DA Active U 2018-08-04 00:00:00 [facility] ondansetron DA Active SD 2018-08-04 00:00:00 [facility] ketorolac DA Active MO 2018-08-04 00:00:00 [facility] Tramadol Tramadol Active High Unknown - See comments 2018-07-07 00:00:0 0 [facility] Ampicillin Ampicillin Active Unknown - See comments 2018-06-19 00: 00:00 [facility] Gabapentin Gabapentin Active Unknown - See comments 2018-06-19 00: 00:00 [facility] Metoclopramide Hcl Metoclopramide Hcl Active Unknown - See comments 2018-06-19 00:00:00 [facility] Ondansetron Hcl (Pf) Ondansetron Hcl (Pf) Active Itching 2018-06-19 00:00:00 [facility] morphine DA Active SD 2018-06-05 00:00:00 [facility] ampicillin DA Active SV 2018-06-05 00:00:00 [facility] tramadol DA Active U 2018-06-05 00:00:00 [facility] gabapentin DA Active SV 2018-06-05 00:00:00 [facility] metoclopramide DA Active U 2018-06-05 00:00:00 [facility] ondansetron DA Active SD 2018-06-05 00:00:00 [facility] ketorolac DA Active MO 2018-06-05 00:00:00 [facility] Gabapentin Propensity to adverse reactions to drug Active 2018-05-02 00:00:00 [facility] Ketorolac Propensity to adverse reactions to drug Active 2018-05-02 00:00:00 [facility] Morphine Allergy to Substance Active 2018-04-10 00:00:00 [facility] morphine DA Active SD 2018-03-27 00:00:00 [facility] ampicillin DA Active SV 2018-03-27 00:00:00 [facility] tramadol DA Active U 2018-03-27 00:00:00 [facility] gabapentin DA Active SV 2018-03-27 00:00:00 [facility] metoclopramide DA Active U 2018-03-27 00:00:00 [facility] ondansetron DA Active SD 2018-03-27 00:00:00 [facility] ketorolac DA Active MO 2018-03-27 00:00:00 [facility] Morphine Propensity to adverse reactions [...] 2017-12-22 00:00:00 Eliel Garcia morphine DA Active SD 2017-11-20 00:00:00 [facility] ampicillin DA Active SV 2017-11-20 00:00:00 [facility] tramadol DA Active U 2017-11-20 00:00:00 [facility] gabapentin DA Active SV 2017-11-20 00:00:00 [facility] metoclopramide DA Active U 2017-11-20 00:00:00 [facility] ondansetron DA Active SD 2017-11-20 00:00:00 [facility] ketorolac DA Active MO 2017-11-20 00:00:00 [facility] morphine DA Active SD 2017-11-01 00:00:00 [facility] ampicillin DA Active SV 2017-11-01 00:00:00 [facility] tramadol DA Active U 2017-11-01 00:00:00 [facility] gabapentin DA Active SV 2017-11-01 00:00:00 [facility] metoclopramide DA Active U 2017-11-01 00:00:00 [facility] ondansetron DA Active SD 2017-11-01 00:00:00 [facility] ketorolac DA Active MO 2017-11-01 00:00:00 [facility] morphine DA Active SD 2017-09-29 00:00:00 [facility] ampicillin DA Active SV 2017-09-29 00:00:00 [facility] tramadol DA Active U 2017-09-29 00:00:00 [facility] gabapentin DA Active SV 2017-09-29 00:00:00 [facility] metoclopramide DA Active U 2017-09-29 00:00:00 [facility] ondansetron DA Active SD 2017-09-29 00:00:00 [facility] ketorolac DA Active MO 2017-09-29 00:00:00 [facility] Prochlorperazine Edisylate Propensity to adverse reactions Active 2017-01-05 00:00:00 [facility] [place] Analogues Propensity to adverse reactions Active 2017-01-05 00:00:00 Caused nausea and Syncope ( When he passed out he broke his neck ) [facility] Baclofen Drug Intolerance Active 2016-12-25 00:00:00 [facility] Cyclobenzaprine Drug Intolerance Active 2016-12-25 00:00:00 [facility] Morphine Propensity to adverse reactions Active 2016-12-25 00:00:00 [facility] Metoclopramide Hcl Propensity to adverse reactions to drug Active Rash 2016-01-22 00:00:00 [facility] Metoclopramide Hcl Propensity to adverse reactions Active Rash 2016-01-22 00:00:00 [facility] Ampicillin Propensity to adverse reactions to drug Active Rash 2016-01-21 00:00:00 [facility] Ampicillin Propensity to adverse reactions Active Rash 01-20 00:00[facility] Ondansetron Hcl Propensity to adverse reactions to drug Active Rash 2015-10-23 00:00:00 [facility] Ondansetron Hcl Propensity to adverse reactions Active Rash 2015-10-23 00:00:00 [facility] Other Propensity to adverse reactions Active 00:00:00 Paper tape [facility] Morphine Propensity to adverse reactions to drug Active 2010-07-03 00:00:00 [facility] Ondansetron Hcl (Pf) Propensity to adverse reactions to drug Active 2010-07-03 00:00:00 [facility] ampicillin ampicillin Active [facility] Toradol Toradol Active [facility] Zofran Zofran Active [facility] ermann Neurontin Neurontin Active [place] [place] [facility] [place] Reglan Active [facility] ermann [place] Active [facility] ermann Paper Tape Paper Tape Active [facility]ADol [facility]ol [facility] Family History Family Member Diagnosis Comments Start Date Stop Date Source Natural brother Heart attack [facility] Natural brother Hodgkin's lymphoma H [facility] Natural brother Hodgkin's lymphoma [facility] Natural brother Stroke [facility] Natural father Factor V Leiden deficiency [facility] Natural father Heart attack [facility] Natural father Stroke [facility] Natural father COPD [facility] Natural father Cancer [facility] Natural father Heart disease [facility] Natural father Stroke [facility] Natural mother Factor V Leiden deficiency [facility] Natural mother Heart attack [facility] Natural mother COPD [facility] Natural mother Heart disease [facility] Natural mother Hodgkin's lymphoma [facility] Natural sister Heart disease [facility] Maternal grandmother Hodgkin's lymphoma [facility] Social History Social Habit Start Date Stop Date Quantity Comments Source History of tobacco use Cigarette Smoker [facility] Sex Assigned At [facility] Social History 2018-11-09 07:45:16 2018-11-09 07:45:16 Robert Siddiqui Cigarettes smoked current (pack per day) - Reported 00:00:00 2018-09-24 00:00:00 Eliel Garcia Cigarette pack-years 2018-09-24 00:00:00 2018-09-24 00:00:00 Eliel Garcia Alcohol intake 2018-09-24 00:00:00 2018-09-24 00:00:00 [facility] Tobacco Comment 2016-01-21 00:00:00 2016-01-21 00:00:00 prev 2-3 pa cks per day [facility] Smoking Status Start Date Stop Date Source Current every day smoker 2019-03-01 00:00:00 [facility] Tobacco smoking status NHIS 2018-09-28 00:00:00 Robert Siddiqui Medications Ordered Medication Name Filled Medication Name Start Date Stop Da te Current Medication? Ordering Clinician Indication Dosage Frequency Signature (SIG) Comments Components Source Spironolactone 2019-07-12 14:00:00 No Notes: (Same As: Aldactone) Hazardous Drug Group 2:Non-antineoplastic Hazardous Drug -- Refer to safe handling procedure PPE [id number] Me fransisca Siddiqui Citalopram 2019-07-12 14:00:00 No 40 mg, 4 tab, Route: PO, Drug form: TAB, Daily, Dosing Weight 182.045, kg, Start date: 07/12/19 9:00:00 CDT, Duration: 30 day, Stop date: 08/10/19 9:00:00 CDT, 0 [facility] pantoprazole 2019-07-12 14:00:00 No Notes: Tablet should not be chewed or crushed. (Same as: Protonix) Amira Siddiqui Trazodone Hydrochloride 100 MG Oral Tablet 2019-07-12 02:00:00 No Route: PO, Drug form: TAB, Bedtime, Dosing Weight 182.045, kg, Start date: 07/11/19 21:00:00 CDT, Duration: 30 day, Stop date: 08/09/19 21:00:00 CDT [facility] trazodone 50 mg oral tablet 2019-07-12 02:00:00 No Notes: (Same As: Desyrel) [facility] Bupropion 2019-07-11 22:00:00 No Notes: (Sa me As: Wellbutrin) [facility] Acetaminophen 300 MG / Codeine Phosphate 30 MG Oral Tablet [Tylenol with Codeine #3] 2019-07-11 21:00:00 No Notes: Do not exceed 4gm/day of acetaminophen. (Same as: Tylenol with Codeine # 3) [facility] LORazepam 2 mg oral tablet 2019-07-11 18:16:00 Yes 2 mg = 1 tab, PO, BID, PRN Anxiety, 0 Refill(s) [facility] senia Isosorbide 2019-07-11 14:00:00 No 30 mg, 1 tab, Route: PO, Drug form: ERTAB, QAM, Dosing Weight 181.818, kg, Start date: 07/11/19 9:00:00 CDT, Duration: 30 day, Stop date: 08/09/19 9:00:00 CDT, 0 [facility] Digoxin 0.125 MG Oral Tablet 2019-07-11 14:00:00 No 0.125 mg, 1 tab, Route: PO, Drug form: TAB, Daily, Dosing Weight 181.818, kg, Start date: 07/11/19 9:00:00 CDT, Duration: 30 day, Stop date: 08/09/19 9:00:00 CDT, 0 [facility] Furosemide 40 MG Oral Tablet 2019-07-11 14:00:00 No Notes: (Same as: Lasix) May cause GI upset. Give with food or milk. [facility] Saline Flush 0.9% 2019-07-11 02:00:00 No Notes: (Same as: BD Posiflush) [facility] atorvastatin 2019-07-11 02:00:00 No Notes: (Same as: Lipitor) [facility] metoprolol tartrate 2019-07-11 02:00:00 No Notes: (Same as: Lopressor) [facility] pantoprazole 2019-07-11 01:18:00 Yes 40 mg, PO, Daily, # 30 tab, 0 Refill(s) [facility] Ativan 2019-07-10 23:46:00 No Notes: (Same as: [...] PO, BID, # 30 tab, 0 Refill(s) [facility] Acetaminophen 300 MG / Codeine [...] 30 day, Stop date: 08/09/19 13:00:00 CDT [facility] Risperidone 2019-07-10 22:00:00 No Notes: (Same as: Risperdal) [facility]:Non-antineoplastic Hazardous Drug -- Refer to safe handling procedure P[employer] [facility] senia Lorazepam 2019-07-10 21:28:00 No Notes: (Sa me as: Ativan) [facility] isosorbide mononitrate 30 mg oral tablet, extended release 2019-07-10 21:25:00 Yes 30 mg = 1 tab, PO, QAM, # 30 ta b, 0 Refill(s) [facility] gabapentin 300 MG Oral Capsule 2019-07-10 21:25:00 No 300 mg = 1 cap, PO, TID, # 90 cap, 0 Refill(s) [facility] LORazepam 2 mg oral tablet 2019-07-10 21:25:00 No 2 mg = 1 tab, PO, BID, PRN Anxiety, # 60 tab, 0 Refill(s) [facility] 200 ACTUAT Albuterol 0.09 MG/ACTUAT Metered Dose Inhaler [Pr oventil] 2019-07-10 21:25:00 Yes 1 puff, INHALER, QID, PRN for wheezing, # 25 gm, 0 Refill(s) [facility] atorvastatin 40 mg oral tablet 2019-07-10 21:25:00 Yes 40 mg = 1 tab, PO, Bedtime, # 30 tab, 0 Refill(s) [facility] Levetiracetam 500 MG Oral Tablet 2019-07-10 21:25:00 No 1,000 mg = 2 tab, PO, BID, # 120 tab, 0 [facility] risperiDONE 2 mg oral tablet 2019-07-10 21:25:00 Yes 2 mg = 1 tab, PO, BID, # 60 tab, 0 Refill(s) [facility] spironolactone 50 mg oral tablet 2019-07-10 21:25:00 [...] 21:01:00 No Notes: (Same as: BD Posiflush) [facility] Dextrose 50% Syringe (D50W) 2019-07-10 20:59:00 No 25 mL, Route: IVP, Dosing Weight 181.818, kg, PRN, PRN Blood Glucose Results, Start date: 07/10/19 15:59:00 CDT, Duration: 30 day, Stop date: 08/09/19 15:58:00 CDT [facility] Glucagon 2019-07-10 20:59:00 No 1 mg, Route: IM, PRN, Dosing Weight 181.818, kg, PRN Blood Glucose Results, Start date: 07/10/19 15:59:00 CDT, Duration: 30 day, Stop date: 08/09/19 15:58:00 CDT [facility] POLYETHYLENE GLYCOL 3350 2019-07-10 20:59:00 No Notes: Dissolve in 8 oz of water or juice. (Same as: Miralax) [facility] Bisacodyl 2019-07-10 20:59:00 No Notes: (Same As: Dulcolax, Bisco-Lax) [facility] Melatonin 2019-07-10 20:59:00 No Notes: (Sa me as: Melatonin) [facility] Hydralazine 2019-07-10 20:59:00 No Notes: (Same as: Apresoline) Push over 5 minutes [facility] Aspirin 2019-07-10 20:02:00 No Notes: (Do Not Crush) Do not crush or chew. [facility] Saline Flush 0.9% 2019-07-10 18:12:00 No Notes: (Same as: BD Posiflush) [facility] Aspirin 81 MG Enteric Coated Tablet 2019-03-13 15:00:00 No Notes: Do not crush or chew. (Same As: Ecotrin) [facility] Ativan 2019-03-13 09:31:00 No Notes: (Same as: Ativan) [facility] Acetaminophen 300 MG / Codeine Phosphate 30 MG Oral Tablet [Tylenol with Codeine #3] 2019-03-13 07:10:00 No Notes: Do not exceed 4gm/day of acetaminophen. (Same as: Tylenol with Codeine # 3) [facility] Famotidine 2019-03-13 03:00:00 No Notes: (S diana as: Pepcid) Robert Siddiqui atorvastatin 2019-03-13 03:00:00 No Notes: (Same as: Lipitor) [facility] S[facility]iqu[facility] Saline Flush 0.9% 2019-03-13 03:00:00 No Notes: preservative free. Robert Siddiqui methadone 10 mg oral tablet 2019-03-13 01:34:00 Yes 10 mg = 1 tab, PO, BID, 0 Refill(s) Robert Siddiqui pregabalin 100 MG Oral Capsule [Lyrica] 2019-03-13 01:34:00 Yes 100 mg = 1 cap, PO, TID, # 90 cap, 0 Refill(s) Robert Siddiqui Risperdal 2019-03-13 01:34:00 Yes PO, Daily, 0 Refill(s) [facility] Enoxaparin 2019-03-13 01:00:00 No Notes: (S diana as: Lovenox) [facility] Saline Flush 0.9% 2019-03-13 00:56:00 No Notes: preservative free. 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 [facility] Benadryl 2019-03-12 22:58:00 No Notes: (Samuel e as: Benadryl) [facility] Compazine 2019-03-12 22:58:00 No Notes: (Sa me as: Compazine) [facility] Aspirin 2019-03-12 22:04:00 No 324 mg, Route: CHEW, Drug form: CHEWTAB, ONCE, Dosing Weight 187.727, kg, Priority: STAT, Start date: 03/12/19 16:04:00 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, Stop date: 03/12/19 16:04:00 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 Robert Siddiqui Morphine 2019-01-11 22:17:00 No 4 mg, Route: IVP, ONCE, Dosing Weight 185.455, kg, Priority: STAT, Start date: 01/11/19 16:17:00 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 [facility] albuterol (ACCUNEB) 0.63 mg/3 mL nebulizer solution 2018-12-30 07:40:2018-12-30 00:00:00 No 1{ampule} Take 1 ampule by nebulization every 6 (six) hours as needed for Wheezing or Shortness of Breath . [facility] aspirin 81 MG EC tablet 2018-12-30 07:40:2018-12-30 00:00:00 No 81mg QD Take 81 mg by mouth daily. [facility] budesonide (PULMICORT) 90 mcg/actuation inhaler 2018-12-30 07:40:2018-12-30 00:00:00 No 1{puff} Q.5D Inhale 1 puff by mouth via inhaler 2 (two) times daily. [facility] clopidogrel (PLAVIX) 75 mg tablet 2018-12-30 07:40:29 2018 00:00:00 No 75mg QD Take 75 mg by mouth daily. [facility] metFORMIN (GLUCOPHAGE) 1000 MG tablet 2018-12-30 07:40 :29 2018-12-30 00:00:00 No 1000mg Take 1,000 mg b y mouth 2 (two) times daily with breakfast and dinner. [facility] metoprolol (LOPRESSOR) 25 MG tablet 2018-12-30 07:40:2 9 2018-12-30 00:00:00 No 25mg Q.5D Take 25 mg by mouth 2 (two) times daily. [facility] pantoprazole (PROTONIX) 20 MG tablet 2018-12-30 07:40: 29 2018-12-30 00:00:00 No 20mg QD Take 20 mg by mouth daily. [facility] ranolazine (RANEXA) 500 MG 12 hr tablet 07:40:29 2018-12-30 00:00:00 No 500mg Q.5D Take 500 mg by mouth 2 (two) ti mes daily. [facility] QUEtiapine (SEROQUEL) 400 MG tablet 2018-12-30 07:40:2 9 2018-12-30 00:00:00 No 400mg QD Take 400 mg by mouth nightly. [facility] hydrOXYzine (ATARAX) 50 MG tablet 2018-12-30 07:40:29 2018 00:00:00 No 50mg Take 50 mg by mouth every 8 (eight) hour s as needed for Anxiety. [facility] isosorbide mononitrate (IMDUR) 30 MG 24 hr tablet 2018-12-30 07:40:29 2018-12-30 00:00:00 No 30mg Take 30 mg by mouth. [facility] furosemide (LASIX) 40 MG tablet 2018-12-30 07:40:29 00:00:00 No 40mg Q.5D Take 40 mg by mouth 2 (two) times daily . [facility] doxepin (SINEQUAN) 100 MG capsule 2018-12-30 07:40:29 2018 00:00:00 No 100mg QD Take 100 mg by mouth nightly. [facility] DULoxetine (CYMBALTA) 60 MG capsule 2018-12-30 07:40:2 9 2018-12-30 00:00:00 No 60mg QD Take 60 mg by mouth daily. [facility] levETIRAcetam (KEPPRA) 500 MG tablet 2018-12-30 07:40: 29 2018-12-30 00:00:00 No 500mg Q.5D Take 500 mg by mouth 2 (two) times daily . [facility] mirtazapine (REMERON) 7.5 MG tablet 2018-12-30 07:40:2 9 2018-12-30 00:00:00 No 7.5mg QD Take 7.5 mg by mouth nightly. [facility] rivaroxaban (XARELTO) 20 mg Tab tablet 2018-12-19 2 07:40:29 2018-12-30 00:00:00 No 20mg QD Take 20 mg by mouth daily. [facility] albuterol (ACCUNEB) 0.63 mg/3 mL nebulizer solution 2018-02 00:00:00 Yes .63mg Take 3 mLs (0.63 mg total) by nebulization every 6 (six) hours as needed for Wheezing or Shortness of Breath. [facility] aspirin 81 MG EC tablet 2018-12-30 00:00:00 Yes 81mg QD Take 1 tablet (81 mg total) by mouth daily. [facility] atorvastatin (LIPITOR) 40 MG tablet 2018-12-30 00:00:00 Yes 40mg QD Take 1 tablet (40 mg total) by mouth daily. [facility] budesonide (PULMICORT) 90 mcg/actuation inhaler 2018-12-30 00:00 :00 Yes 1{puff} Q.5D Inhale 1 puff by mouth via inhaler 2 (two) times daily . [facility] clopidogrel (PLAVIX) 75 mg tablet 2018-12-30 00:00:00 Yes 75mg QD Take 1 tablet (75 mg total) by mouth daily. [facility] doxepin (SINEQUAN) 100 MG capsule 2018-12-30 00:00:00 Yes 100mg QD Take 1 capsule (100 mg total) by mouth nightly. [facility] DULoxetine (CYMBALTA) 60 MG capsule 2018-12-30 00:00:00 Yes 60mg QD Take 1 capsule (60 mg total) by mouth daily. [facility] furosemide (LASIX) 40 MG tablet 2018-12-30 00:00:00 Yes 40mg Q.5D Take 1 tablet (40 mg total) by mouth 2 (two) times daily. [facility] hydrOXYzine (ATARAX) 50 MG tablet 2018-12-30 00:00:00 Yes 50mg Take 1 tablet (50 mg total) by mouth every 8 (eight) hours as needed for Anxiety. [facility] isosorbide mononitrate (IMDUR) 30 MG 24 hr tablet 2018-12-30 00:00:00 Yes 30mg QD Take 1 tablet (30 mg total) by mouth daily. [facility] levETIRAcetam (KEPPRA) 500 MG tablet 2018-12-30 00:00:00 Ye s 500mg Q.5D Take 1 tablet (500 mg total) by mouth 2 (two) times daily. [facility] metFORMIN (GLUCOPHAGE) 1000 MG tablet 2018-12-30 00:00:00 Y es 1000mg Take 1 tablet (1,000 mg total) by mouth 2 (two) times daily with breakfast and dinner. [facility] mirtazapine (REMERON) 7.5 MG tablet 2018-12-30 00:00:00 Yes 7.5mg QD Take 1 tablet (7.5 mg total) by mouth nightly. [facility] pantoprazole (PROTONIX) 20 MG tablet 2018-12-30 00:00:00 Ye s 20mg QD Take 1 tablet (20 mg total) by mouth daily. [facility] pregabalin (LYRICA) 100 MG capsule 2018-12-30 00:00:00 Yes 100mg Q.5D Take 1 capsule (100 mg total) by mouth 2 (two) times daily. Max Daily Amount: 200 mg [facility] QUEtiapine (SEROQUEL) 400 MG tablet 2018-12-30 00:00:00 Yes 400mg QD Take 1 tablet (400 mg total) by mouth nightly. [facility] ranolazine (RANEXA) 500 MG 12 hr tablet 2018-12-30 00:00:00 Yes 500mg Q.5D Take 1 tablet (500 mg total) by mouth 2 (two) times daily. [facility] rivaroxaban (XARELTO) 20 mg Tab tablet 2018-12-30 00:00:00 Yes 20mg QD Take 1 tablet (20 mg total) by mouth daily. [facility] traZODone (DESYREL) 100 MG tablet 2018-12-30 00:00:00 Yes 200mg QD Take 2 tablets (200 mg total) by mouth nightly. [facility] insulin detemir U-100 (LEVEMIR) 100 unit/mL injection 2018-12-30 00:00:00 Yes 15U QD Inject 15 Units subcutaneously nightly. [facility] metoprolol (LOPRESSOR) 25 MG tablet 2018-12-30 00:00:0 0 2019-01-06 00:00:00 No 50mg Q.5D Take 2 tablets (50 mg total) by mouth 2 (two) times daily. [facility] oxyCODONE-acetaminophen (PERCOCET) 10-325 mg per tablet 2018-12-26 10:00:07 2018-12-26 00:00:00 No 1{tbl} Take 1 tablet by mouth every 6 (six) hours as needed for Pain. [facility] melatonin 5 mg Cap 2018-12-26 09:59:47 2018-12-26 00:00:00 No 5mg QD Take 5 mg by mouth nightly. [facility] LORazepam (ATIVAN) 0.5 MG tablet 2018-12-26 09:59:37 2018-12 00:00:00 No .5mg Take 0.5 mg by mouth every 12 (twelve) ho urs as needed for Anxiety. [facility] acetaminophen (TYLENOL) 325 MG tablet 2018-12-26 09:57 :14 2018-12-26 00:00:00 No 650mg Take 650 mg by mouth every 6 (six) hours as needed for Pain. [facility] ALPRAZolam (XANAX) 0.5 MG tablet 2018-12-07 23:08:51 Yes 2mg Take 2 mg by mouth 3 (three) times daily as needed for Anxiety . [facility] atorvastatin 40 mg oral tablet 2018-11-11 17:59:00 Yes 80 mg = 2 tab, PO, Bedtime, # 90 tab, 0 Refill(s), Pharmacy: [id number] rivaroxaban 20 mg oral tablet 2018-11-11 17:59:00 Yes 20 mg = 1 tab, PO, QPM, # 90 tab, 0 Refill(s), Pharmacy: [id number] Insulin Lispro 2018-11-11 13:55:00 No 10 unit, SUB-Q, TID-Before Meals, 0 Refill(s) [facility] Lyrica 2018-11-11 06:00:00 No Notes: (Same as: Lyrica) [facility] Insulin Glargine 100 UNT/ML Injectable Solution [Lantus] 2018-11-11 05:50:00 No Notes: (Same a s: Lantus) Do not hold insulin without contacting prescriber WASTE: F/P - Black; E - Municipal Trash Bin "single patient use only" Stable for 28 days at room temperature Expires in days from Date Robert Siddiqui 3 ML Insulin Glargine 100 UNT/ML Prefilled Syringe [Lantus] 2018-11-11 04:21:00 No Notes: (Sa me as: Lantus) Do not hold insulin without contacting prescriber WASTE: F/P - Black; E - Municipal Trash Bin "single patient use only" Stable for 28 days at room temperature Expires in days from Date [facility] hennacamilo Acetaminophen 2018-11-11 04:18:00 No Notes: Do not exceed 4 gm/day. (Same as: Tylenol) [facility] Insulin Glargine 100 UNT/ML Injectable Solution [Lantus] 2018-11-11 03:13:00 Yes 20 unit, SUB-Q, Bedtime, # 10 mL , 3 Refill(s) [facility] atorvastatin 40 mg oral tablet 2018-11-10 19:31:00 No 80 mg = 2 tab, PO, Bedtime, # 90 tab, 0 Refill(s), Pharmacy: [facility] #[id number] rivaroxaban 20 mg oral tablet 2018-11-10 19:22:00 No 20 mg = 1 tab, PO, QPM, # 90 tab, 0 Refill(s), Pharmacy: [facility] #[id number] [facility] Digoxin 0.125 MG Oral Tablet 2018-11-10 14:00:00 No Notes: Take on an Empty Stomach (Same as: Lanoxin) [facility] HR Metoprolol Tartrate 25 MG Extended Release Tablet [Top rol] 2018-11-10 14:00:00 No Notes: (Same as: Toprol XL) D o Not Crush [facility] Spironolactone 2018-11-10 14:00:00 No Notes: (Same As: Aldactone) [facility] Dextrose 50% Syringe 2018-11-10 11:22:00 No 12.5 gm, 25 mL, Route: IVP, Drug Form: INJ, Dosing Weight 190, kg, PRN, PRN Blood Glucose Results, Start date: 11/10/18 6:22:00 CDT, Duration: 30 day, Stop date: 12/10/18 6:21:00 CDT, 0 [facility] Glucagon 2018-11-10 11:22:00 No 1 mg, Route: IM, Drug form: PDR/INJ, PRN, Dosing Weight 190, kg, PRN Blood Glucose Results, Start date: 11/10/18 6:22:00 CDT, Duration: 30 day, Stop date: 12/10/18 6:21:00 CDT, 0 [facility] Insulin Lispro 2018-11-10 11:22:00 No Notes: (Same as: Humalog) Roll in palms of hands gently; Do not shake vigorously. WASTE: F/P - Black; E - Municipal Trash Bin Stable for 28 days at room temperature. Expires in days from Date [facility] atorvastatin 2018-11-10 02:00:00 No Notes: (Same as: Lipitor) [facility] Trazodone 2018-11-10 02:00:00 No Notes: (Sa me [...] 19:31:00 No Notes: (Same as: Potassium Chloride) [facility] mariana Siddiqui Macrobid 2018-11-09 18:19:00 No Notes: Not recommended for patients with CrCl<30 ml/min (Same as:Macrobid) With food. [facility] Nitrofurantoin 2018-11-09 18:00:00 No 100 mg, Route: PO, TID, Dosing Weight 190, kg, Start date: 11/09/18 13:00:00 CDT, Duration: 30 day, Stop date: 12/09/18 9:00:00 CDT [facility] metoprolol tartrate 25 mg oral tablet 2018-11-09 16:26:00 Y es 25 mg = 1 tab, PO, BID, # 60 tab, 0 Refill(s) [facility] lamoTRIgine 25 mg oral tablet 2018-11-09 16:26:00 Yes 25 mg = 1 tab, PO, BID, # 60 tab, 0 Refill(s) [facility] Furosemide 40 MG Oral Tablet [Lasix] 2018-11-09 16:26:00 Ye s 40 mg = 1 tab, PO, BID, 0 Refill(s) [facility] Nikolay selvin Ranexa 2018-11-09 16:26:00 Yes 500 mg, PO, B ID, 0 Refill(s) [facility] empagliflozin 25 MG Oral Tablet [Jardiance] 2018-11-09 16:26:00 Yes 25 mg = 1 tab, PO, QAM, 0 Refill(s) [facility]lel [facility] spironolactone 50 mg oral tablet 2018-11-09 16:26:00 Yes 50 mg = 1 tab, PO, Daily, # 30 tab, 1 Refill(s) Pa fransisca Siddiqui isosorbide mononitrate 30 mg oral [...] No Notes: Same as: BD Posiflush Sterile [facility] Docusate Sodium 50 MG / sennosides, LONG TERM 8.6 MG Oral Tablet 2018-11-09 14:00:00 No Notes: (Same as Senokot-S) Equ iv. to Marjorie-Colace. Robert Siddiqui Plavix 2018-11-09 14:00:00 No Notes: (Same As: Plavix) Robert Siddiqui Levetiracetam 500 MG Oral Tablet [Keppra] 2018-11-09 14:00:00 No Notes: (Same as:Keppra) Robert Siddiqui Aspirin 325 MG Enteric Coated Tablet 2018-11-09 08:13:00 No Notes: (Do Not Crush) Do not crush or chew. Pa fransisca Siddiqui Promethazine 2018-11-09 05:14:00 No Notes: . (Same as: Phenergan) [facility] Morphine 2018-11-09 05:14:00 No Not es: (Same as:MORPhine Sulfate) [facility] heparin sodium, porcine 2500 UNT/ML Injectable Solution 2018-11-09 05:00:00 No Notes: [facility] Aspirin 325 MG Enteric Coated Tablet 2018-11-09 03:00:00 No Notes: (Do Not Crush) Do not crush or chew. Pa fransisca Siddiqui Isolyte S PH-7.4 (Bolus) IV 2018-11-09 02:21:00 No Notes: (Same as: Isolyte S PH 7.4) [facility] Sodium Chloride 0.9% IV 1,000 mL 2018-11-09 02:04:00 No 1,000 mL, Rate: 75 ml/hr, Infuse over: 13.3 hr, Route: IV, Total Volume: 1,000, Start date: 11/08/18 21:04:00 CDT, Duration: 30 day, Stop date: 12/08/18 21:03:00 CDT, 0 [facility] Saline Flush 0.9% 2018-11-09 02:04:00 No Notes: Same as: BD Posiflush Sterile [facility] Labetalol 2018-11-09 02:04:00 No 10 mg, 2 mL, Route: IVP, Drug form: INJ, Q15Min, kg, PRN Hypertension, Start date: 11/08/18 21:04:00 CDT, Duration: 30 day, Stop date: 12/08/18 21:03:00 CDT, 0 [facility] Hydralazine 2018-11-09 02:04:00 No Notes: (Same as: Apresoline) Push over 5 minutes [facility] Saline Flush 0.9% 2018-11-09 01:18:00 No Notes: Same as: BD Posiflush Sterile [facility] traZODone (DESYREL) 100 MG tablet 2018-11-09 00:00:00 2018 00:00:00 No 200mg QD Take 200 mg by mouth nightly. [facility] DULoxetine 20 mg capsule 2018-09-29 23:05:02 Yes Take 40 mg by mouth 2 (two) times daily. [facility] isosorbide mononitrate 30 mg 24 hr tablet 2018-09-29 23:05:02 Yes Take 30 mg by mouth daily. [facility] levETIRAcetam (KEPPRA) 500 mg tablet 2018-09-29 23:05:02 Ye s Take 500 mg by mouth 2 (two) times daily. [facility] lamotrigine (LAMICTAL ORAL) 2018-09-29 23:05:02 Yes Take 25 mg by mouth 2 (two) times daily. [facility] pregabalin (LYRICA) 100 mg capsule 2018-09-29 23:05:02 [...] every 4 (four) hours as needed. Robert Siddiuqi cyclobenzaprine HCl (FLEXERIL ORAL) 2018-09-29 23:05:02 Yes [...] needed for Wheezing or Shortness of Breath. Rboert Siddiqui proMETHazine 25 mg tablet 2018-09-29 23:05:02 Yes Take 25 mg by mouth every 6 (six) hours as needed. [facility] mariana Siddiqui aspirin 81 mg chewable tablet [...] mouth 2 (two) times daily as needed. [facility] metoprolol tartrate 25 mg tablet 2018-09-15 14:27:06 Yes Take 25 mg by mouth 2 (two) times daily. [facility] Elvia conn ALPRAZolam (XANAX) 2 mg tablet 2018-09-15 14:27:06 Yes Take 2 mg by mouth 2 (two) times daily as needed for Anxiety. [facility] atorvastatin 80 mg tablet 2018-07-15 00:00:00 Yes Take 1 tablet by mouth every evening. [facility] insulin glargine 100 unit/mL injection 2018-07-15 00:00:00 Yes inject 20 Units under the skin every 12 (twelve) hours. [facility] furosemide 40 mg tablet 2018-07-09 00:00:00 No Take 1 tablet by mouth 3 (three) times daily. [facility] selvin furosemide (LASIX) 40 mg tablet 2018-05-04 [...] Md 81 Daily [facility] pregabalin (LYRICA) 100 MG capsule 2017-02-19 00:00:00 201 10-30-11 00:00:00 No 100mg Q.5D Take 1 capsule ( 100 mg total) by mouth 2 (two) times daily. Max Daily Amount: 200 mg [facility] carisoprodol (SOMA) 350 MG tablet 2017-02-06 00:00:00 Yes 350mg Take 1 tablet (350 mg total) by mouth every 8 (eight) hours as needed for Muscle spasms. Max Daily Amount: 1,050 mg [facility] methadone (DOLOPHINE) 5 MG tablet 2017-01-24 16:22:44 Yes 5mg Take 5 mg by mouth 2 (two) times daily as needed for Pain. [facility] potassium chloride (KLOR-CON) 20 mEq packet 2016-12-25 10:28:53 Yes 20meq QD Take 20 mEq by mouth daily. [facility] pantoprazole (PROTONIX) 40 MG EC tablet 2016-04-12 00:00:00 Yes 20mg QD Take 20 mg by mouth every morning. Anne Marie Garcia atorvastatin (LIPITOR) 40 MG tablet 2016-01-25 00:00:00 Yes 40mg QD Take 40 mg by mouth nightly. Eliel jimenez atorvastatin (LIPITOR) 40 MG tablet 2016-01-25 00:00:0 0 2018-12-30 00:00:00 No 40mg QD Take 40 mg by mouth daily . [facility] clopidogrel (PLAVIX) 75 mg tablet 2010-07-04 00:00:00 Yes Other pulmonary embolism and infarction 75mg QD Take 1 Tab by mouth daily. [facility] gabapentin (NEURONTIN) 300 mg capsule 2010-07-04 00:00:00 Yes Psychiatric problem 600mg Q.5D Take 2 Caps by mouth 2 times daily. [facility] nitroGLYCERIN (NITROSTAT) 0.4 mg sublingual tablet 2010-06 00:00:00 Yes Chest pain, unspecified .4mg Place 1 Tab under tongue every 5 minutes as needed for Chest pain. [facility] warfarin (COUMADIN) 7.5 mg tablet 2010-07-04 00:00:00 Yes Pulmonary embolus 7.5mg QD Take 1 Tab by mouth daily (warfarin). [facility] risperdone (RISPERDAL) 1 mg tablet 2010-07-04 00:00:00 Yes Psychiatric problem Take by mouth every morning. 0.5mg in am2.5mg in pmAs previously instructed [facility] famotidine (PEPCID) 20 mg tablet 2010-07-04 00:00:00 Yes Chest pain 20mg Q.5D Take 1 Tab by mouth 2 times daily. [facility] lisinopril (PRINIVIL, ZESTRIL) 2.5 mg tablet 2010-07-04 00:0 0:00 Yes Chest pain 20mg QD Take 8 Tabs by mouth daily. [facility] metoprolol tartrate (LOPRESSOR) 25 mg tablet 2010-07-04 00:0 0:00 Yes Chest pain 25mg Q.5D Take 1 Tab by mouth 2 times daily. [facility] rosuvastatin (CRESTOR) 10 mg tablet 2010-07-04 00:00:00 Yes Pulmonary embolus 10mg Take 1 Tab by mouth at bedtime. [facility] Atorvastatin Calcium 20 Mg Tablet Atorvastatin Calcium 20 Mg Tablet Yes 40 Bedtime [facility] Carisoprodol (Soma) 350 Mg Tablet Carisoprodol (Soma) 350 Mg Tablet Yes 350 Every 8 Hours as needed for Cramps [facility] Clopidogrel Bisulfate (Plavix) 75 Mg Tablet Clopidogre l Bisulfate (Plavix) 75 Mg Tablet Yes 75 Daily [facility] Digoxin 125 Mcg Tablet Digoxin 125 Mcg Tablet Yes 125 Daily [facility] Doxepin Hcl 25 Mg Capsule Doxepin Hcl 25 Mg Capsule Yes 100 Qhs [facility] Duloxetine Hcl (Cymbalta) 30 Mg Capsule. Duloxetine Hcl (Cymbalta) 30 Mg Capsule. Yes 40 Twice A Day [facility] Ergocalciferol (Vitamin D2) (Vitamin D2) 50,000 Unit C apsule Ergocalciferol (Vitamin D2) (Vitamin D2) 50,000 Unit Capsule Yes 5000 0 Daily [facility] Fenofibrate (Tricor) 145 Mg Tab Fenofibrate (Tricor) 145 Mg Tab Yes 145 Daily [facility] Furosemide 40 Mg Tablet Furosemide 40 Mg Tablet Yes 80 Twice A Day [facility] Isosorb Fulton/Imdur Isosorb Fulton/Imdur Yes 30 Da jonny [facility] Jardiance 25 Mg Jardiance 25 Mg Yes 25 Daily [facility] Lamotrigine (Lamictal) 25 Mg Tab Lamotrigine (Lamictal) 25 Mg Tab Yes Twice A Day [facility] Lamotrigine 25 Mg Tablet Lamotrigine 25 Mg Tablet Yes 25 Twice A Day [facility] Levetiracetam (Keppra) 500 Mg Tablet Levetiracetam (Keppra) 500 Mg Tablet Yes 500 Twice A Day [facility] Lorazepam 0.5 Mg Tablet Lorazepam 0.5 Mg Tablet Yes .5 Every 8 Hours as needed for Anxiety [facility] Meloxicam (Mobic) 15 Mg Tablet Meloxicam (Mobic) 15 Mg Tablet Yes 15 Daily [facility] Metformin Hcl 1,000 Mg Tablet Metformin Hcl 1,000 Mg Tablet Yes 1000 Twice A Day [facility] Metoprolol Tartrate 25 Mg Tablet Metoprolol Tartrate 25 Mg Tablet Yes 25 Twice A Day [facility] Pantoprazole Sodium (Protonix) 40 Mg Tablet. Pantopr azole Sodium (Protonix) 40 Mg Tablet. Yes 20 Daily [facility] Potassium Chloride (K Dur*) 10 Meq Tabcr Potassium Chl oride (K Dur*) 10 Meq Tabcr Yes 10 Daily [facility] Promethazine Hcl 25 Mg Tablet Promethazine Hcl 25 Mg Tablet Yes 25 Every 6 Hours as needed for Nasal Congestion [facility] Ranolazine (Ranexa) 500 Mg Tabsr Ranolazine (Ranexa) 500 Mg Tabsr Yes 500 Twice A Day [facility] Risperidone (Risperdal) 1 Mg Tablet Risperidone (Risperdal) 1 Mg Tabl et Yes 2 Twice A Day [facility] Rivaroxaban (Xarelto) 20 Mg Tablet Rivaroxaban (Xarelto) 20 Mg Tablet Yes Daily [facility] Spironolactone 50 Mg Tablet Spironolactone 50 Mg Tablet Yes 50 Daily [facility] Trazodone Hcl 50 Mg Tablet Trazodone Hcl 50 Mg Tablet Yes [facility] 15 Mg Tab, 7.5 Mg Oral Mirtazapine 15 Mg Tab, 7.5 Mg Oral 2018-10-22 00:00:00 No 7.5 Qhs [facility] Pregabalin (Lyrica) 50 Mg Cap, 100 Mg Oral Pregabalin (Lyrica) 50 Mg Cap, 100 Mg Oral 2018-10-22 00:00:00 No 100 Twice A Day [facility] Quetiapine Fumarate 25 Mg Tablet, 25 Mg Oral Quetiapin e Fumarate 25 Mg Tablet, 25 Mg Oral 2018-10-22 00:00:00 No 25 Every Morning [facility] Quetiapine Fumarate 100 Mg Tablet, 425 Mg Oral Quetiap ine Fumarate 100 Mg Tablet, 425 Mg Oral 2018-10-22 00:00:00 No [facility] Hydroxyzine Hcl 25 Mg Tablet, 50 Mg Oral Hydroxyzine H cl 25 Mg Tablet, 50 Mg Oral 2018-02-09 00:00:00 No 50 Every 8 Hours as n eeded for Anxiety [facility] Prednisone 10 Mg Tab, 10 Mg Oral Prednisone 10 Mg Tab, 10 Mg Ora l 2018-02-09 00:00:00 No 10 Twice A Day [facility] Vital Signs Vital Name Observation Time Observation Value Comments Source Systolic (mm Hg) 2019-07-12 09:55:00 Rocky [facility] Diastolic (mm Hg) 2019-07-12 09:55:00 Mem [facility] Heart Rate 2019-07-12 09:55:00 [facility] Respitory Rate 2019-07-12 09:55:00 [facility] Temperature Oral (F) 2019-07-12 09:55:00 99.9 F [facility] Systolic (mm Hg) 2019-07-12 08:20:00 Rocky [facility] Diastolic (mm Hg) 2019-07-12 08:20:00 [facility] Systolic (mm Hg) 2019-07-12 05:55:00 Rocky [facility] Diastolic (mm Hg) 2019-07-12 05:55:00 Mem [facility] Heart Rate 2019-07-12 05:55:00 [facility] Respitory Rate 2019-07-12 05:55:00 [facility] Heart Rate 2019-07-12 05:46:00 [facility] Respitory Rate 2019-07-12 05:46:00 [facility] Temperature Oral (F) 2019-07-12 05:46:00 101.4 F [facility] Temperature Oral (F) 2019-07-11 17:00:00 97.8 F [facility] Heart Rate 2019-07-11 17:00:00 [facility] Respitory Rate 2019-07-11 17:00:00 [facility] Systolic (mm Hg) 2019-07-11 17:00:00 Rocky [facility] Diastolic (mm Hg) 2019-07-11 17:00:00 [facility] Weight 2019-07-11 13:45:00 [facility] Temperature Oral (F) 2019-07-11 12:01:00 97.8 F [facility] Heart Rate 2019-07-11 12:01:00 [facility] Systolic (mm Hg) 2019-07-11 12:01:00 Rocky [facility] Diastolic (mm Hg) 2019-07-11 12:01:00 [facility] Respitory Rate 2019-07-11 12:01:00 [facility] Temperature Oral (F) 2019-07-11 08:44:00 98.3 F [facility] Heart Rate 2019-07-11 08:44:00 [facility] Respitory Rate 2019-07-11 08:44:00 [facility] Systolic (mm Hg) 2019-07-11 08:44:00 Rocky [facility] Diastolic (mm Hg) 2019-07-11 08:44:00 [facility] Height 2019-07-11 00:10:00 187.96 cm [facility] Weight 2019-07-11 00:10:00 [facility] BMI Calculated 2019-07-11 00:10:00 [facility] Height 2019-07-10 18:22:00 187.96 cm [facility] BMI Calculated 2019-07-10 18:22:00 [facility] Weight 2019-07-10 18:22:00 [facility] Respitory Rate 2019-03-13 12:56:00 [facility] Temperature Oral (F) 2019-03-13 10:56:00 98.2 F [facility] Heart Rate 2019-03-13 10:56:00 [facility] Respitory Rate 2019-03-13 10:56:00 [facility] Systolic (mm Hg) 2019-03-13 10:56:00 Rocky [facility] Diastolic (mm Hg) 2019-03-13 10:56:00 [facility] Temperature Oral (F) 2019-03-13 05:15:00 98.3 F [facility] Heart Rate 2019-03-13 05:15:00 [facility] Respitory Rate 2019-03-13 05:15:00 [facility] Systolic (mm Hg) 2019-03-13 05:15:00 Rocky [facility] Diastolic (mm Hg) 2019-03-13 05:15:00 [facility] Temperature Oral (F) 2019-03-13 02:21:00 97.8 F [facility] Heart Rate 2019-03-13 02:21:00 [facility] Systolic (mm Hg) 2019-03-13 02:21:00 Rocky [facility] Diastolic (mm Hg) 2019-03-13 02:21:00 [facility] Height 2019-03-13 01:26:00 187.96 cm [facility] Weight 2019-03-13 01:26:00 [facility] BMI Calculated 2019-03-13 01:26:00 [facility] Height 2019-03-12 19:42:00 187.96 cm [facility] BMI Calculated 2019-03-12 19:42:00 [facility] Weight 2019-03-12 19:42:00 [facility] Body temperature 2019-02-24 12:49:00 37.17 Rose [facility] Systolic blood pressure 2019-02-24 12:45:00 117 mm[Hg] [facility] Diastolic blood pressure 2019-02-24 12:45:00 66 mm[Hg] [facility] Heart rate 2019-02-24 12:45:00 91 /min [facility] Oxygen saturation in Arterial blood by Pulse oximetry 02-24 12:45:00 97 /[facility] 2019-02-24 11:15:00 19 /min [facility] Body height 2019-02-23 23:03:00 188 cm [facility] Body weight Measured 2019-02-23 23:03:00 185.975 kg [facility] BMI 2019-02-23 23:03:00 52.64 kg/m2 [facility] Systolic (mm Hg) 2019-01-11 22:27:00 Rocky [facility] Diastolic (mm Hg) 2019-01-11 22:27:00 [facility] Temperature Oral (F) 2019-01-11 22:27:00 98.3 F [facility] Systolic (mm Hg) 2019-01-11 20:30:00 Rocky [facility] Diastolic (mm Hg) 2019-01-11 20:30:00 [facility] Systolic (mm Hg) 2019-01-11 19:21:00 [facility] Diastolic (mm Hg) 2019-01-11 19:21:00 [facility] Heart Rate 2019-01-11 19:21:00 [facility] Respitory Rate 2019-01-11 19:21:00 [facility] Temperature Oral (F) 2019-01-11 19:21:00 98.4 F [facility] Height 2019-01-11 19:21:00 187.96 cm [facility] BMI Calculated 2019-01-11 19:21:00 [facility] Weight 2019-01-11 19:21:00 [facility] Temperature Oral (F) 2018-11-11 16:18:00 98.1 F [facility] Heart Rate 2018-11-11 16:18:00 [facility] Respitory Rate 2018-11-11 16:18:00 [facility] Systolic (mm Hg) 2018-11-11 16:18:00 Rocky [facility] Diastolic (mm Hg) 2018-11-11 16:18:00 [facility] Temperature Oral (F) 2018-11-11 12:36:00 98.2 F [facility] Heart Rate 2018-11-11 12:36:00 [facility] Respitory Rate 2018-11-11 12:36:00 [facility] Systolic (mm Hg) 2018-11-11 12:36:00 Rocky [facility] Diastolic (mm Hg) 2018-11-11 12:36:00 [facility] Temperature Oral (F) 2018-11-11 08:49:00 98.1 F [facility] Heart Rate 2018-11-11 08:49:00 [facility] Respitory Rate 2018-11-11 08:49:00 [facility] Systolic (mm Hg) 2018-11-11 08:49:00 [facility] Diastolic (mm Hg) 2018-11-11 08:49:00 [facility] Height 2018-11-09 07:43:00 187.96 cm [facility] Weight 2018-11-09 07:43:00 [facility] BMI Calculated 2018-11-09 07:43:00 [facility] Systolic (mm Hg) 2018-09-29 17:08:00 Rocky [facility] Diastolic (mm Hg) 2018-09-29 17:08:00 [facility] Heart Rate 2018-09-29 17:08:00 [facility] Temperature Oral (F) 2018-09-29 17:08:00 36.72 Rose [facility] Respitory Rate 2018-09-29 17:08:00 Aric Morales Weight 2018-09-29 08:14:00 Robert Hdezann Height 2018-09-28 21:55:00 188 cm Robert Siddiqui Systolic blood pressure 2018-09-24 22:15:00 98 mm[Hg] Eliel [facility] Diastolic blood pressure 2018-09-24 22:15:00 51 mm[Hg] Julian [facility] Heart rate 2018-09-24 22:15:00 99 /min Julian [facility] Body temperature 2018-09-24 22:15:00 36.83 Rose [place] [facility] Respiratory rate 2018-09-24 22:15:00 22 /min [place] [facility] Oxygen saturation in Arterial blood by Pulse oximetry 09-24 22:15:00 95 /min Eliel [facility] Body height 2018-09-24 19:32:00 188 cm Julian [facility] Systolic (mm Hg) 2018-09-20 13:00:00 Rocky Siddiqui Diastolic (mm Hg) 2018-09-20 13:00:00 [facility] Heart Rate 2018-09-20 13:00:00 [facility] Artur Temperature Oral (F) 2018-09-20 13:00:00 35.22 Rose [facility] Respitory Rate 2018-09-20 13:00:00 Aric Morales Height 2018-09-20 05:48:00 188 cm Robert Siddiqui Weight 2018-09-20 05:43:00 [facility] Procedures Procedure Date / Time Performed Performing Clinician [facility] e ED ECG INTERPRETATION 2019-02-24 12:52:00 Justin Quinones [facility] TROPONIN I 2019-02-24 09:44:00 Justin Quinones [facility] CT BRAIN WITHOUT IV CONTRAST 2019-02-24 08:32:00 Justin Quinones [facility] BASIC METABOLIC PANEL (7) 2019-02-24 00:46:00 River Skaggs [facility] TROPONIN I 2019-02-24 00:46:00 River Skaggs [facility] CBC W/PLT COUNT & AUTO DIFFERENTIAL 2019-02-24 00:46:00 River Skaggs [facility] XR CHEST 1 VIEW PORTABLE/BEDSIDE 2019-02-23 23:47:00 Sudeep Skaggs [facility] ECG 12-LEAD 2019-02-23 22:45:16 River Skaggs Samir [facility] VASCULAR DIAGRAM -SCAN 2019-01-14 15:50:48 Provider, Default Sca nning [facility] RHYTHM STRIP - SCAN 2019-01-07 11:40:54 Provider, Default Scanni ng [facility] REPORT OF PROCEDURE - ENDOSCOPY SCAN 2019-01-07 11:40:52 Pro vider, Default Scanning [facility] CARDIAC CATH REPORT - SCAN 2019-01-07 11:40:50 Provider, Default Scanning [facility] POCT-GLUCOSE METER 2019-01-06 12:06:[address] [facility] POCT-GLUCOSE METER 2019-01-06 07:08:[address] [facility] BASIC METABOLIC PANEL (7) 2019-01-06 04:48:00 Mann Loza [facility] POCT-GLUCOSE METER 2019-01-05 23:19:[address] [facility] L CATH & PCI 2019-01-05 17:54:00 Momo Dougherty [facility] POCT-GLUCOSE METER 2019-01-05 16:40:[address] [facility] APTT 2019-01-05 11:52:00 Moe Aceves [facility] POCT-GLUCOSE METER 2019-01-05 11:35:[address] [facility] POCT-GLUCOSE METER 2019-01-05 07:13:[address] [facility] BASIC METABOLIC PANEL (7) 2019-01-05 01:26:00 Marco A Aceves [facility] MAGNESIUM 2019-01-05 01:26:00 Moe Aceves [facility] CALCIUM, IONIZED 2019-01-05 01:26:00 [facility] 2019-01-05 01:26:00 [facility] 2019-[facility]-05 01:26:00 Ketan [facility] CBC W/PLT COUNT & AUTO DIFFERENTIAL 2019-01-05 01:26:00 [facility] PO[facility]SE [facility]ER 2019-01-04 21:02:00 [facility] 2019-01-04 18:08:00 Ketan [facility] POCT-GLUCOSE METER 2019-01-04 16:21:00 Radu [facility] POCT-GLUCOSE METER 2019-01-04 12:29:00 Radu [facility] APTT 2019-01-04 10:50:00 Ketan [facility] POCT-GLUCOSE METER 2019-01-04 07:31:00 [facility] BASIC METABOLIC PANEL (7) 2019-01-04 02:43:00 Marco A Aceves [facility] MAGNESIUM 2019-01-04 02:43:00 Ketan [facility] CALCIUM, IONIZED 2019-01-04 02:43:00 Irvin Minor [facility] PHOSPHORUS 2019-01-04 02:43:00 [facility] 2019-01-04 02:43:00 Ketan [facility] CBC W/PLT COUNT & AUTO DIFFERENTIAL 2019-01-04 02:43:00 Christiano zavala [facility] POCT-GLUCOSE METER 2019-01-03 22:11:00 [facility] 2019-01-03 19:54:00 Ketan [facility] POCT-GLUCOSE METER 2019-01-03 17:13:00 [facility]OPONIN I 2019-01-03 13:29:00 [facility] 2019-01-03 13:29:[facility] PO[facility]UCOSE METER 2019-01-03 13:25:00 Radu [facility] POCT-GLUCOSE METER 2019-01-03 07:47:00 Radu [facility] ECG 12-LEAD 2019-01-03 06:58:16 Unknown, Hl7 Doctor [facility] CBC (HEMOGRAM ONLY) 2019-01-03 06:29:00 [facility]OLIC [facility] (7) 2019-01-03 04:44:00 Marco A Aceves [facility] MAGNESIUM 2019-01-03 04:44:00 [facility] 2019-01-03 04:44:00 [facility] POCT-GLUCOSE METER 2019-01-03 03:06:00 [facility] APTT 2019-01-03 02:55:00 [facility] BASIC METABOLIC PANEL (7) 2019-01-02 21:48:00 River Sk[place]gs [facility] B-TYPE NATRIURETIC FACTOR (BNP) 2019-01-02 21:48:00 River Sk[place]gs [facility] TROPONIN I 2019-01-02 21:48:00 River Skaggs [facility] CBC W/PLT COUNT & AUTO DIFFERENTIAL 2019-01-02 21:48:00 River [place] Samir [facility] XR CHEST 1 VIEW PORTABLE/BEDSIDE 2019-01-02 21:30:00 Sudeep Skaggs Samir [facility] ECG 12-LEAD 2019-01-02 20:51:03 Ketan Moe [facility] RHYTHM STRIP - SCAN 2019-01-01 10:34:40 Provider, Default Scanni abbey [facility] TRANSFUSION SERVICE REPORT - SCAN 2018-12-30 17:50:48 Provid er, Default Scanning [facility] REPORT OF PROCEDURE - ENDOSCOPY SCAN 2018-12-30 16:11:49 Pro vider, Default Scanning [facility] REPORT OF PROCEDURE - ENDOSCOPY SCAN 2018-12-30 12:50:39 Pro vider, Default Scanning [facility] POCT-GLUCOSE METER 2018-12-30 08:19:00 Merchant, [facility] POCT-GLUCOSE METER 2018-12-29 21:28:00 Merchant, [facility] POCT-GLUCOSE METER 2018-12-29 17:17:00 [facility] 2018-12-29 12:47:00 Merchant, [facility] POCT-GLUCOSE METER 2018-12-29 07:51:00 Merchant, [facility] ABORH, MANUAL 2018-12-29 04:39:00 Muriel Jasmine [facility] TYPE AND SCREEN, AUTOMATED 2018-12-29 04:12:00 Ayala Choudhury [facility] POCT-GLUCOSE METER 2018-12-28 21:25:00 Merchant, [facility] POCT-GLUCOSE METER 2018-12-28 17:53:00 Maggie [facility] POCT-GLUCOSE METER 2018-12-28 14:05:00 Maggie [facility] POCT-GLUCOSE METER 2018-12-28 08:18:[address] [facility] MAGNESIUM 2018-12-28 04:40:00 [facility] PHOSPHORUS 2018-12-28 04:40:00 [facility] BASIC METABOLIC PANEL (7) 2018-12-28 04:40:00 [facility] CBC W/PLT COUNT & AUTO DIFFERENTIAL 2018-12-28 04:40:00 [facility] POCT-GLUCOSE METER 2018-12-27 21:24:[address] [facility] NM CARDIAC PET PERFUSION REST AND/OR STRESS 2018-12-27 13:35 :00 Saad Villanueva [facility] TREADMILL TOLERANCE(NON-NUCLEAR TREADMILL) 2018-12-27 13:30: 54 Unknown, Hl7 Doctor [facility] POCT-GLUCOSE METER 2018-12-27 08:55:00 Maggie [facility] POCT-GLUCOSE METER 2018-12-26 19:52:00 Maggie [facility] POCT-GLUCOSE METER 2018-12-26 16:41:00 Maggie [facility] TROPONIN I 2018-12-26 10:20:00 [facility] RAPID DRUG SCREEN, URINE 2018-12-26 06:57:00 [facility] POCT-GLUCOSE METER 2018-12-26 05:56:00 [facility] TROPONIN I 2018-12-26 05:54:00 [facility] BASIC METABOLIC PANEL (7) 2018-12-26 05:54:00 [facility] HEPATIC FUNCTION PANEL 2018-12-26 05:54:00 [facility] MAGNESIUM 2018-12-26 05:54:00 [facility] PHOSPHORUS 2018-12-26 05:54:00 [facility] CBC W/PLT COUNT & AUTO DIFFERENTIAL 2018-12-26 05:54:00 [facility] XR CHEST 1 VIEW PORTABLE/BEDSIDE 2018-12-25 20:02:00 GilesSudeep beltre [facility] BASIC METABOLIC PANEL (7) 2018-12-25 19:52:00 River Sk[place]gs [facility] TROPONIN I 2018-12-25 19:52:00 River Sk[place]gs [facility] B-TYPE NATRIURETIC FACTOR (BNP) 2018-12-25 19:52:00 River Sk[place]gs [facility] D-DIMER 2018-12-25 19:52:00 River Sk[place] [facility] CBC W/PLT COUNT & AUTO DIFFERENTIAL 2018-12-25 19:52:00 River [place] [facility] ECG 12-LEAD 2018-12-25 19:45:34 River Skaggs [facility] RHYTHM STRIP - SCAN 2018-12-23 12:43:47 Provider, Default [facility] POCT-GLUCOSE METER 2018-12-10 17:44:00 Jimmy [facility] RHYTHM STRIP - SCAN 2018-12-10 16:00:33 Provider, Default Scanni [facility] POCT-GLUCOSE METER 2018-12-10 11:29:00 Jimmy [facility] POCT-GLUCOSE METER 2018-12-09 23:26:00 Marquez [facility] REPORT OF PROCEDURE - ENDOSCOPY SCAN 2018-12-09 15:50:49 Pro vider, Default Scanning [facility] CBC W/PLT COUNT & AUTO DIFFERENTIAL 2018-12-09 06:39:00 [facility] POCT-GLUCOSE METER 2018-12-08 22:41:[address] [facility] ECG 12-LEAD 2018-12-08 06:43:12 Unknown, Hl7 Doctor [facility] BASIC METABOLIC PANEL (7) 2018-12-08 04:48:00 [facility] MAGNESIUM 2018-12-08 04:48:00 [facility] 2018-12-08 04:48:00 [facility] LIPID PANEL 2018-12-08 04:48:00 [facility] CBC W/PLT COUNT & AUTO DIFFERENTIAL 2018-12-08 04:48:00 [facility] POCT-GLUCOSE METER 2018-12-08 00:22:00 [facility] TROPONIN I 2018-12-08 00:20:00 [facility] ED ECG INTERPRETATION 2018-12-07 20:21:01 Singh Zaidi [facility] BASIC METABOLIC PANEL (7) 2018-12-07 20:01:00 Singh Zaidi [facility] TROPONIN I 2018-12-07 20:01:00 Singh Zaidi [facility] B-TYPE NATRIURETIC FACTOR (BNP) 2018-12-07 20:01:00 [facility] MAGN[facility]UM 2018-12-07 20:01:00 Singh Zaidi [facility] PT/APTT 2018-12-07 20:01:00 Singh Zaidi [facility] CBC W/PLT COUNT & AUTO DIFFERENTIAL 2018-12-07 20:01:00 Saritha Zaidi Rick [facility] XR CHEST 1 VIEW PORTABLE/BEDSIDE 2018-12-07 20:00:00 Shagufta Zaidi [facility] ECG 12-LEAD 2018-12-07 19:29:03 [facility] RHYTHM STRIP - SCAN 2018-12-03 11:31:28 Provider, Mina potter [facility] REPORT OF PROCEDURE - ENDOSCOPY SCAN 2018-12-02 13:50:26 Pro vider, Mina Scanning [facility] TROPONIN I 2018-12-01 10:17:00 Caroline Hall [facility] TROPONIN I 2018-12-01 04:19:00 Val Diaz [facility] HEMOGLOBIN A1C 2018-12-01 04:19:00 Val Diaz [facility] TSH/FREE T4 IF INDICATED 2018-12-01 04:19:00 Val Diaz [facility] BASIC METABOLIC PANEL (7) 2018-12-01 04:19:00 Val Diaz I [facility] CBC W/PLT COUNT & AUTO DIFFERENTIAL 2018-12-01 04:19:00 Val Bagley [facility] CREATININE, RANDOM URINE 2018-12-01 01:14:00 Val Diaz [facility] SODIUM, RANDOM URINE 2018-12-01 01:14:00 Val Diaz [facility] RAPID DRUG SCREEN, URINE 2018-12-01 01:14:00 Val Diaz [facility] US RENAL COMPLETE 2018-12-01 01:02:00 [facility] LUMBAR COMPLETE MIN 4 VIEWS 2018-11-30 23:10:00 Emir Olivia [facility] XR HAND 3 VIEWS RIGHT 2018-11-30 23:09:00 Emir Corral [facility] XR WRIST RIGHT COMPLETE (MIN 3 VIEWS) 2018-11-30 23:09:00 Of Emir lr [facility] XR KNEE LEFT COMPLETE (4 VIEWS) 2018-11-30 23:09:00 Bairon Corral [facility] XR HAND 3 VIEWS LEFT 2018-11-30 23:08:00 Emir Corral [facility] XR CHEST PA OR AP 1 VIEW IN DEPT. 2018-11-30 23:05:00 Emir Colmenares [facility] BASIC METABOLIC PANEL (7) 2018-11-30 22:23:00 Keshia Corral [facility] B-TYPE NATRIURETIC FACTOR (BNP) 2018-11-30 22:23:00 Bairon Corral [facility] PT/APTT 2018-11-30 22:23:00 Keshia Corraljosué [facility] TROPONIN I 2018-11-30 22:23:00 [facility] LIPID PANEL 2018-11-30 22:23:00 DiazVal [facility] MAGNESIUM 2018-11-30 22:23:00 Val Diaz [facility] CBC W/PLT COUNT & AUTO DIFFERENTIAL 2018-11-30 22:23:00 Felton estebanJus santacruzcentinela [facility] ED ECG INTERPRETATION 2018-11-30 22:09:02 Keshia [facility] m[facility] ECG 12-LEAD 2018-11-30 21:38:42 [facility] angiography of chest 2018-10-23 00:00:00 ROBER ROLON [facility] ECHO ROUTINE W/DOPPLER COLOR 2018-09-29 20:44:13 Hawa Crook POCT GLUCOSE (AUTOMATED) 2018-09-29 19:29:00 Eliot Cardoza MAGNESIUM 2018-09-29 12:36:00 Hawa Crook [facility] XR CHEST 1 VW 2018-09-29 03:50:07 Bernarda Fleming Artur TROPONIN I 2018-09-29 03:28:00 Bernarda Fleming BASIC METABOLIC PANEL (NA, K, CL, CO2, GLUCOSE, BUN, C REATININE, CA) 2018-09-29 03:28:00 Bernarda Fleming CBC WITH DIFF 2018-09-29 03:28:00 Bernarda Fleming Artur N-TERMINAL PRO-BNP 2018-09-29 03:28:00 Bernarda Flemingneeta [facility] PROTHROMBIN TIME / INR 2018-09-29 03:28:00 Aline Fleminga Cindy [facility] D-DIMER 2018-09-29 03:28:00 Toby Solano Bernarda Cindy [facility] ACTIVATED PARTIAL THRMPLAS GIRISH 2018-09-29 03:28:00 Toby Ramirez tBernarda Cindy Jones Artur EXTRA TUBE LAV 2018-09-29 03:28:00 Aline Fleminga Cindy [facility] EKG-12 LEAD 2018-09-29 03:17:43 Bernarda Fleming [facility] HC COMPLETE BLD COUNT W/AUTO DIFF 2018-09-24 20:52:00 Danika Slade se COMPREHENSIVE METABOLIC PANEL 2018-09-24 20:52:00 Pepito Slade PROTHROMBIN TIME WITH INR 2018-09-24 20:52:00 Pepito Slade Rast[facility]arian PARTIAL THROMBOPLASTIN TIME (PTT) 2018-09-24 20:52:00 Danika Slade se Rastafarian TROPONIN 2018-09-24 20:52:00 Pepito Slade on Rastafarian B NATRIURETIC PEPTIDE 2018-09-24 20:52:00 Pepito Slade Rastafarian ESTIMATED GFR 2018-09-24 20:52:00 Pepito Slade on Rastafarian XR CHEST 1 VW 2018-09-24 20:10:00 Pepito Slade on Rastafarian POC GLUCOSE 2018-09-24 19:35:00 Pepito Slade on Rastafarian ECG 12-LEAD 2018-09-24 19:32:49 Pepito Slade on Rastafarian ECG ED PRELIMINARY INTERPRETATION 2018-09-24 19:32:[address] THORAX WO CONTRAST 2018-09-20 08:28:59 Logan Quezada GALV/CLC ONLY - URINE DRUG (IMMUNOASSAY) - 4 ER PANEL 09-20 07:02:00 Logan Quezada HEPATIC FUNCTION PANEL (82812) (ALB,T.PRO,BILI T,BU/BC ,ALT,AST,ALK PHOS) 2018-09-20 06:03:00 Logan Quezada Robert Artur ETHANOL 2018-09-20 06:03:00 Logan Quezada Elvia ermann EXTRA TUBE LT. BLUE 2018-09-20 06:03:00 Logan Quezada Alanori al Artur EXTERNAL PROVIDER RECORDS 2018-09-15 10:01:00 Doctor Unassigned, Man [facility] Computed tomography of brain without radiopaque contrast 201 09-30-23 00:00:00 JAMES JONES [facility] Computed tomography of brain without radiopaque contrast 201 09-29-22 00:00:00 ORACIO STARR [facility] Computed tomography of chest with contrast 2018-02-09 00:00:00 ORACIO REYES [facility] Aortic aneurysm repair [facility] Back care<sup>1</sup> [facility] ermann Cholecystectomy [facility] IVC - Insertion of inferior vena caval filter [facility] Nephrectomy<sup>2</sup> [facility] Procedure on bone<sup>3</sup> [facility] Surgical procedure on cervical spine [facility] Plan of Care Planned Activity Planned Date Details Comments Source Future Scheduled Test 2019-11-19 00:00:00 IMM Influenza Seas onal Nov to April (>/= 19 yrs) [code = IMM Influenza Seasonal Nov to April (>/= 19 yrs)] [facility] Future Scheduled Test 2019-10-20 00:00:00 INFLUENZA VACCINE (Season Ended) [code = INFLUENZA VACCINE (Season Ended)] [facility] Future Scheduled Test 2019-09-29 00:00:00 Plan of Care [code = 1877 6-5] [facility] Future Scheduled Test 2019-09-20 00:00:00 Plan of Care [code = 1877 6-5] [facility] Future Scheduled Test 2019-09-19 00:00:00 INFLUENZA VACCINE [code = INFLUENZA VACCINE] [facility] Future Scheduled Test 2019-09-05 00:00:00 Plan of Care [code = 1877 6-5] [facility] Future Scheduled Test 2019-07-15 00:00:00 Plan of Care [code = 1877 6-5] [facility] Scheduled Test 2019-06-02 00:00:00 HEMOGLOBIN A1C [co de = HEMOGLOBIN A1C] [facility] Scheduled Test 2019-01-14 00:00:00 Plan of Care [code = 1877 6-5] [facility] Scheduled Test 2018-10-19 00:00:00 Plan of Care [code = 1877 6-5] [facility] Scheduled Test 2018-09-29 00:00:00 EKG-12 LEAD ROUTINE [code = 4135] [facility] Scheduled Test 2018-09-20 00:00:00 Troponin I [code = 57624- 9] [facility] Scheduled Test 1989 00:00:00 Plan of Care [code = 1877 6-5] [facility] Scheduled Test 1988 00:00:00 Plan of Care [code = 1877 6-5] [facility] Scheduled Test 1980 00:00:00 Plan of Care [code = 1877 6-5] [facility] Scheduled Test 1976 00:00:00 PNEUMOCOCCAL VACCI NE 2-64 YEARS AT RISK (1 of 1 - PPSV23) [code = PNEUMOCOCCAL VACCINE 2-64 YEARS AT RISK (1 of 1 - PPSV23)] [facility] Scheduled Test 1976 00:00:00 Plan of Care [code = 1877 6-5] [facility] Encounters Start Date/Time End Date/Time Encounter Type Admission Type Attendi [facility] Care Department Encounter ID Source 2019-07-12 00:44:56 2019-07-12 05:07:00 [id number] 2019-07-12 00:44:00 2019-07-12 00:44:00 Emergency E [facility] SE [id number] 2019-07-10 13:10:47 2019-07-11 13:58:00 Outpatient Jonelle Hester [facility] [id number] 2019-07-10 15:59:00 2019-07-10 15:59:00 Outpatient E [facility] MED [id number] 2019-03-12 13:40:11 2019-03-13 08:02:00 Outpatient Luis Philip [facility] [id number] 2019-03-12 18:02:00 2019-03-12 18:02:00 Outpatient E [facility] MED [id number] 2019-01-11 13:13:03 2019-01-11 16:52:00 Outpatient Eric Romero [facility] [id number] 2019-01-11 13:13:00 2019-01-11 13:13:00 Emergency E [facility] [id number] [facility] 2018-11-08 20:06:23 2018-11-11 17:18:00 Outpatient Magdaleno Staples [facility] [id number] 2018-11-08 21:04:00 2018-11-08 20:06:00 Inpatient E [facility] [id number] [facility] 2018-10-31 18:20:00 2018-10-31 23:00:00 Departed Emergency Room 1 KOTA DILL [facility] [id number] [facility] 2018-10-29 21:18:00 2018-10-29 23:38:00 Departed Emergency Room 1 HARMANAZAEL CHAVEZ [facility] [id number] [facility] 2018-10-22 18:41:00 2018-10-24 16:04:00 Discharged Inpatient (obs) 1 JARRET ALEXIS [facility] [id number] [facility] 2018-09-28 16:53:01 2018-09-29 18:04:00 [facility] [id number] 2018-09-28 16:53:01 2018-09-29 18:04:00 [facility] [id number] 2018-09-19 19:56:16 2018-09-20 15:03:00 Emergency Z robinLogan, Samanthaeve [facility] ([facility]) [id number] 2018-09-15 00:00:00 2018-09-15 00:00:00 Orders Only D octor Unassigned, Man [facility] [id number] 2018-05-29 00:03:00 2018-05-29 02:41:00 Departed Emergency Room 1 REED CURTIS [facility] [id number] [facility] 2018-04-24 13:35:46 2018-04-24 13:35:46 Outpatient [facility] [id number] [facility] 2018-04-10 12:50:00 2018-04-10 18:25:00 Departed Emergency Room 1 ORACIO STARR [facility] [id number] [facility] 2018-02-09 09:34:00 2018-02-13 19:45:00 Discharged Inpatient 1 DEXTER DILL [facility] [id number] [facility] 2018-01-02 00:47:00 2018-01-02 03:15:00 Departed Emergency Room 1 ORACIO STARR [facility] [id number] [facility] 2017-06-23 16:37:00 2017-06-23 23:07:00 Departed Emergency Room ER DEBRA CLOUD [facility] [id number] [facility] 2017-05-26 23:59:00 2017 17:38:00 Discharged Inpatient (obs) ER AZAEL HARMAN [facility] [id number] [facility] 2017-04-20 02:04:00 2017-04-21 16:13:00 Discharged Inpatient (obs) ER SARA IVERSON [facility] [id number] [facility] Results Test Description Test Time Test Comments Results Result Comments Source CHEST SINGLE (PORTABLE) 2019-07-27 20:56:00 [facility] [address] [place] [address] Patient Name: ARANZA LOPEZ MR #: [id number] : 1970 Age/Sex: 49/M Req #: [id number] Adm Physician: Ordered by: KOTA DILL DO Report #: [id number] Location: ER Room/Bed: Procedure: [id number] DX/CHEST SINGLE (PORTABLE) Exam Date: 07/27/19 Exam Time: 2004 REPORT STATUS: Signed EXAM: CHEST SINGLE (PORTABLE) DATE: 07/27/2019 8:05 PM INDICATION: Chest pain ERMD ORDER [id number] 2004 Y COMPARISON: Chest x-ray, 10/31/2018 FINDINGS: Lines and tubes: None The cardiac silhouette is mildly enlarged. M ild central pulmonary vascular prominence. No peripheral pulmonary consolidation or pneumothorax. Upper abdomen unremarkable. No acute bony abnormality. Cervical spine fusion hardware is noted IMPRESSION: Mild cardiomegaly and central pulmonary vascular prominence. Signed by: Dr. Amira Harrell M.D. on 07/27/2019 8:57 PM Dictated By: AMIRA HARRELL MD 56 Transcribed By: ADALBERTO on 07/27/192056 COPY TO: KOTA DILL DO CARDIAC ENZYMES 2019-07-12 06:52:00 <0.02 [facility] CHEM PANEL 2019-07-12 06:52:00 156 [facility] 2019-07-12 06:52:[facility] 2019-07-12 06:52:00 [facility] 2019-07-12 06:52:00 [facility] 2019-07-12 06:52:00 [facility]6 [facility] 2019-07-12 06:52:00 [facility] 2019-07-12 06:52:00 [facility] PAN[facility] 2019-07-12 06:52:00 9.2 [facility] 2019-07-12 06:52:00 7.4 [facility] 2019-07-12 06:52:00 3.4 [facility] 2019-07-12 06:52:00 [facility] CHEM PANEL 2019-07-12 06:52:00 [facility] PANEL 2019-07-12 06:52:00 104 [facility] 2019-07-12 06:52:00 0.5 [facility] PAN[facility] 2019-07-12 06:52:00 9.6 [facility] PAN[facility] 2019-07-12 06:52:00 Test Item B/C Ratio (test code = B/C Ratio) 14 1 6-25 [facility]ann[facility] [id number] 06:52:004.0[facility]ann[facility] PANEL 2019-07-12 06:52:00* Test Item Value Reference Range Interpretation Comments A/G Ratio (test code = A/G Ratio) 0.8 1 0.7-1.6 [facility]ann[facility] PNHPH2506-37-85 06:52:0080[facility]ann[facility]M PANEL 2019-07-12 06:52:001.5[facility] HermannCHEM ZMVVI1345-63-87 06:52:000.24[facility] ZkaxmptIOLDHFBHSD4632-84-74 06:52:0010.0[facility] CbyfbnwZLRSJHRDIE0907-22-36 06:52:004.55[facility] FknurpnHZSVKBAZPQ4464-67-32 06:52:0014.0[facility] LXQMMRYZQH0685-32-25 06:52:0040.6[facility] GlqlofhWCGJACKYKJ0414-44-81 06:52:00 89.3[facility] HjwycuvSPMLJRUNHS2608-86-67 06:52:00* Test Item Value Reference Range Interpretation Comments MCH (test code = MCH) 30.7 pg 27.0-31.0 [facility] AbcildqHJSCDAPOQB5398-54-72 06:52:0034.4[facility] HermannHEMATOLOGY 2019-07-12 06:52:0014.3[facility] NbsxueyGNDAKCUEGE5804-69-64 06:52:49954Xznzmrhg ZpojqovNBDTYHZWDM7223-55-76 06:52:007.9[facility] XuzwlcbLSSBETOXQZ2316-44-54 06:52:0080.4[facility] VpetntqUXXRJBMKSR8720-11-78 06:52:0012.2[facility] VCIHGLXSWX4666-62-19 06:52:006.2[facility] YhkdnguMMYVCECOQB4688-70-60 06:52:000.9 [facility] SstzhpbJEMNUFAVEP1277-68-77 06:52:000.3[facility] HermannHEMATOLOGY 2019-07-12 06:52:008.1[facility] MezxbeqPKFVZHQKKB1637-73-03 06:52:001.2[facility] CdhgqdtPROQPQXBEE8765-75-37 06:52:000.6[facility] ZceetdqDBMRKGKPGX2980-45-66 06:52:000.1[facility] HermannCHEM WPALA4704-24-23 08:21:05605Jhtamvau HermannCHEM WYXWA9652-06-83 08:21:0013[facility] HermannCHEM IFBTZ5797-63-67 08:21:001.05 [facility]annCHEM AZRQK0698-42-60 08:21:72728Hecckoqz HermannCHEM PANEL 2019-07-11 08:21:003.5[facility] HermannCHEM LUKQX0917-21-06 08:21:68189Tkndkqah HermannCHEM YUBEU2417-39-55 08:21:0029[facility] HermannCHEM PIFQF3517-88-22 08:21:007.5[facility] HermannCHEM UDFON0445-58-56 08:21:008.3[facility] HermannCHEM YIGZF2875-31-43 08:21:00* Test Item Value Reference Range Interpretation Comments B/C Ratio (test code = B/C Ratio) 12 1 6-25 [facility]annCHEM CTXEH8998-27-33 08:21:006.2[facility] HermannCHEM PANEL 2019-07-11 08:21:003.0[facility] HermannCHEM EJJFW3858-57-37 08:21:003.2[facility] HermannCHEM COZPO8691-48-87 08:21:00* Test Item Value Reference Range Interpretation Comments A/G Ratio (test code = A/G Ratio) 0.9 1 0.7-1.6 [facility] HermannCHEM RBDLX3437-76-97 08:21:0029[facility] HermannCHEM PANEL 2019-07-11 08:21:0016[facility] HermannCHEM KLMEV3323-87-21 08:21:0076[facility] HermannCHEM GVFND6407-40-48 08:21:000.5[facility] HermannCHEM BDSRC3014-18-52 08:21:0083[facility] JvhgdamRHTAHAHJMI2994-84-48 08:21:0073.9[facility] NAVVNTMXYW3811-72-85 08:21:0016.8[facility] CuqieasWOWOJBWCBR6647-13-88 08:21:00 7.4[facility] YiixhkzESYNLLIZMT8289-45-03 08:21:001.4[facility] HermannHEMATOLOGY 2019-07-11 08:21:000.5[facility] JqlclqtJZWWGOMNBF8747-90-37 08:21:004.1[facility] PebfgzaLYHNUCNGGM4725-40-05 08:21:000.9[facility] HqakuftGIOWWAYEPD1873-32-57 08:21:000.4[facility] YtdmuliCLRKMHSATG5238-51-16 08:21:000.1[facility] YYRXDERXNP3510-29-22 08:21:005.6[facility] BhjbzeyPUOEGCBIUP8330-58-61 08:21:00 4.22[facility] BnwgbrqKUPZUYUJWG4250-05-50 08:21:0013.0[facility] HermannHEMATOLOGY 2019-07-11 08:21:0038.1[facility] PwqxpbxFJRQEIRKFZ2947-54-26 08:21:0090.2[facility] EklxzatDUTCPFJLDP8533-33-39 08:21:00* Test Item Value Reference Range Interpretation Comments MCH (test code = MCH) 30.8 pg 27.0-31.0 [facility] JlsedhiCFKIWEUAUC4086-26-53 08:21:0034.1[facility] HermannHEMATOLOGY 2019-07-11 08:21:0014.2[facility] IrvqrzuJVAEVHKJQV2044-53-18 08:21:78457Yivtyzse WnkxjvbVVXKFHNVDX2612-73-28 08:21:007.8[facility] HermannCHEM JBOVJ9823-35-15 22:11:000.12[facility] LrhdbxsYOJAIC4535-25-06 22:11:45024Tvzhocsf HermannLIPIDS 2019-07-10 22:11:70451Pnikyfrx AjpmbikGCMISD8662-17-74 22:11:0032[facility] FrqbcrjPFVADJ9107-71-55 22:11:00* Test Item Value Reference Range Interpretation Comments CHD Risk (test code = CHD Risk) 6.12 1 4.00-7.30 [facility] GbbhnmxDPYMSM3391-54-30 22:11:53770Zemwwtmb RobyrphHHLEOR7040-65-18 22:11:00* Test Item Value Reference Range Interpretation Comments VLDL (test code = VLDL) 45 1 [facility] HermannSPECIAL WFPXKNXFR7062-22-32 22:11:006.2[facility] HermannURINE AND FWROR2852-92-72 22:11:00Yellow *NA*(07/10/19 5:11 PM)[facility] AND MOYMD4119-02-39 22:11:00Clear (07/10/19 5:11 PM)[facility] STOOL 2019-07-10 22:11:00* Test Item Value Reference Range Interpretation Comments UA Spec Grav (test code = UA Spec Grav) 1.030 1 [facility]ann[facility] AND DGDEE1142-92-17 22:11:00* Test Item Value Reference Range Interpretation Comments UA pH (test code = UA pH) 6.0 1 5.0-8.0 [facility] JPOUX0419-47-17 22:11:00Negative *NA*(07/10/19 5:11 PM) [facility] VGBZC5877-52-39 22:11:00Negative (07/10/19 5:11 PM) [facility] UZWAZ1578-19-15 22:11:00Negative (07/10/19 5:11 PM) [facility] NTMAE7037-87-01 22:11:00Negative (07/10/19 5:11 PM) [facility] URXHH0765-67-08 22:11:00<1[facility]ann[facility] AND KHHRS7091-91-71 22:11:002[facility] HermannCARDIAC OBPGLFE1939-52-52 18:46:61566 [facility]annCARDIAC QDFWRCG9259-47-64 18:46:00<0.02[facility] HermannCHEM BAAPF0647-56-33 18:46:76675Msbhcdkv HermannCHEM FZOHG4915-05-74 18:46:0014 [facility] HermannCHEM HLJIE2512-04-41 18:46:001.05[facility] HermannCHEM PANEL 2019-07-10 18:46:71686Huihyyvl HermannCHEM BXMTS7711-33-55 18:46:003.6[facility] HermannCHEM TYQQQ9283-65-65 18:46:10748Mdtixvec HermannCHEM WVAMF7895-87-80 18:46:0026[facility] HermannCHEM AIRNG0606-94-53 18:46:008.9[facility] HermannCHEM IIAEW4640-68-26 18:46:0010.6[facility] HermannCHEM LSFQP8555-50-44 18:46:0083 [facility] MmypzmgEASIRBPDZX2548-27-81 18:46:0013.2[facility] HermannHEMATOLOGY 2019-07-10 18:46:004.67[facility] AceukcaQTTGXRDILP3634-94-46 18:46:0014.3[facility] VoiramxTCOFWGYUQV2123-22-74 18:46:0041.7[facility] WdjqmtzKUCJZDLBGR3724-21-54 18:46:0089.3[facility] HmjgwtuHKXYHUJSBH9028-91-86 18:46:00* Test Item Value Reference Range Interpretation Comments MCH (test code = MCH) 30.7 pg 27.0-31.0 [facility] EpaqhsjIJWPOTRTGU1184-21-74 18:46:0034.4[facility] HermannHEMATOLOGY 2019-07-10 18:46:0014.3[facility] OynlzivQFFAHNONMZ9030-23-55 18:46:02885Nnlyrwjf NhvrlngVXGHIXDICH3470-15-43 18:46:007.9[facility] VjqrioiZHDOARJJRY2994-32-00 18:46:00* Test Item Value Reference Range Interpretation Comments PT (test code = PT) 13.4 s 12.0-14.7 [facility] LgbzlstFGHMFGKHCZ0677-27-59 18:46:00* Test Item Value Reference Range Interpretation Comments INR (test code = INR) 1.02 1 0.85-1.17 [facility] KgkrhlgUDASKTADWB0384-92-07 18:46:00* Test Item Value Reference Range Interpretation Comments PTT (test code = PTT) 31.6 s 22.9-35.8 [facility] YzcccxlORIYONSHZJ0845-57-43 18:46:0086.2[facility] HermannHEMATOLOGY 2019-07-10 18:46:008.0[facility] JfaioelVDXKEQWDAZ1620-91-70 18:46:004.7[facility] CbhvgtzLVWVAELEEB0326-51-35 18:46:000.8[facility] GdsidlrVDMZYVIPAK1227-76-60 18:46:000.3[facility] XbvtncpFZVTHSNUEC0979-80-76 18:46:0011.3[facility] DPLCOGPRSL0139-71-19 18:46:001.1[facility] CxxyndeUREXYUXOZJ7755-56-23 18:46:000.6 [facility] WxjblloOLJIKRQSPK8781-44-33 18:46:000.1[facility] HermannTOXICOLOGY 2019-07-10 18:46:000.2[facility]ann[facility] AND JAEIJ8279-34-59 13:08:00Clear (03/13/19 7:08 AM)[facility] AND TLNTH4941-40-25 13:08:00* Test Item Value Reference Range Interpretation Comments UA Spec Grav (test code = UA Spec Grav) 1.022 1 [facility] AND SSNRR7345-76-37 13:08:00* Test Item Value Reference Range Interpretation Comments UA pH (test code = UA pH) 6.0 1 5.0-8.0 [facility] VLXZC0130-06-71 13:08:00Negative *NA*(03/13/19 7:08 AM) [facility] CZWFE4657-32-81 13:08:00Negative (03/13/19 7:08 AM) [facility] CZYDR2487-70-79 13:08:00Negative (03/13/19 7:08 AM) [facility] YYRQP3247-53-95 13:08:00Negative (03/13/19 7:08 AM) [facility] MDDXD0890-87-46 13:08:001[facility] AND OLUSN2298-84-50 13:08:00<1[facility] HermannCARDIAC IJDEENG5163-64-18 10:55:00< 0.02[facility] HermannCARDIAC CIICRBV5866-40-18 05:36:00<0.02[facility] TYQVDK1056-81-79 05:36:29529Lunwanff LfkgfaqSUSBDG7546-24-53 05:36:84724Dhqoxfuf LypjkzgLTQNIJ8321-10-08 05:36:0024[facility] OudzanbOJBSZO2405-20-59 05:36:00* Test Item Value Reference Range Interpretation Comments CHD Risk (test code = CHD Risk) 5.46 1 4.00-7.30 [facility] EdhjhrbDCBSFY3633-51-66 05:36:0062[facility] ZafqnuiCDSIRH8748-21-10 05:36:00* Test Item Value Reference Range Interpretation Comments VLDL (test code = VLDL) 45 1 [facility]annSPECIAL JIHJPLBCL1680-66-91 05:36:006.7[facility] HermannCARDIAC VKBBWYP1885-47-33 20:05:96302Qwotrnvm HermannCARDIAC GKKHMLQ5256-26-10 20:05:00< 0.02[facility] HermannCHEM EOLJU2309-85-24 20:05:13751Vzxvehop HermannCHEM PANEL 2019-03-12 20:05:0011[facility] HermannCHEM DTWRN7470-44-14 20:05:001.04[facility] HermannCHEM DRKHV3348-80-43 20:05:45001Ulhpqnsh HermannCHEM LFLDG5450-71-54 20:05:003.7[facility] HermannCHEM DLDEZ6172-36-50 20:05:82195Srhqmlzl HermannCHEM TQEMN6758-68-22 20:05:0026[facility] HermannCHEM CZELL8802-17-33 20:05:009.5 [facility] HermannCHEM IQFYT5084-04-14 20:05:006.9[facility] HermannCHEM PANEL 2019-03-12 20:05:003.7[facility] HermannCHEM AYINR0134-08-09 20:05:0031[facility] HermannCHEM RNUNW6558-90-46 20:05:0016[facility] HermannCHEM CWGYT2230-19-87 20:05:0092[facility] HermannCHEM DAWNE2845-31-16 20:05:000.3[facility] HermannCHEM EHUNQ0269-44-79 20:05:008.7[facility] HermannCHEM SUEDK8810-03-53 20:05:00* Test Item Value Reference Range Interpretation Comments B/C Ratio (test code = B/C Ratio) 11 1 6-25 [facility] HermannCHEM QARKT6921-37-01 20:05:003.2[facility] HermannCHEM PANEL 2019-03-12 20:05:00* Test Item Value Reference Range Interpretation Comments A/G Ratio (test code = A/G Ratio) 1.2 1 0.7-1.6 [facility] HermannCHEM SLTKJ0107-42-42 20:05:0084[facility] HermannHEMATOLOGY 2019-03-12 20:05:006.7[facility] IqujnztZTQDJLQZYP8811-72-53 20:05:004.80[facility] QojyvzgLLFRMBJTVL8721-42-07 20:05:0014.6[facility] YdzoqduWHOVAZEKYM4400-33-95 20:05:0043.2[facility] CtmzvymNQWKDKQFQE7722-98-99 20:05:0090.0[facility] SBNGYTIQLT3666-76-58 20:05:00* Test Item Value Reference Range Interpretation Comments MCH (test code = MCH) 30.5 pg 27.0-31.0 [facility] AyisiauYLUJODRTXX3408-82-35 20:05:0033.9[facility] 2019-03-12 20:05:0014.9[facility] IilqfkxUTXGQQLDVW2382-99-08 20:05:99438Ixwaqzxp LkkzrbaPDSWMBCICV1999-74-20 20:05:008.2[facility] ViiypitDRHABFZUTB5179-67-31 20:05:00* Test Item Value Reference Range Interpretation Comments PTT (test code = PTT) 35.1 s 22.9-35.8 [facility] IoongqcJJNOSJWSDN8948-46-10 20:05:00* Test Item Value Reference Range Interpretation Comments PT (test code = PT) 15.0 s 12.0-14.7 [facility] BnmkiqsRPOUFQVSCH1840-18-92 20:05:00* Test Item Value Reference Range Interpretation Comments INR (test code = INR) 1.17 1 0.85-1.17 [facility] KwmctktGKLMHNPCDD2108-70-63 20:05:0066.4[facility] 2019-03-12 20:05:0024.0[facility] EpbvqxbYMPAPCHFRK5619-26-88 20:05:006.8[facility] NsmbmihLEAJBARKRE1187-01-39 20:05:002.1[facility] BpqtlzxPXSCEWWRYA6359-72-56 20:05:000.7[facility] TdnjfbnSYYUPWDYKK2449-20-33 20:05:004.4[facility] ABKQELRWOR8822-10-08 20:05:001.6[facility] DluzyxnPQPHCXYDIW0677-16-93 20:05:000.5 [facility] SwfrcebTJNYYEMWOR6309-62-50 20:05:000.1[facility]annECG/EKG Wmkvnxznmgfhhk6075-12-36 12:52:00Justin Quinones MD 02/25/2019 11:33 AMECG/EKG InterpretationDate/Time: 02/23/2019 10:45 PMPerformed by: Justin Quinones MDAuthorized by: Justin Quinones MD The ECG was interpreted by ED physician. The ECG is interpreted as sinus rhythm. Heart rate is 90 BPM.ECG reviewed and does not meet STEMI criteria. Patient tolerance: Patient tolerated the procedure well with no immediate complicationsComments: NO ACUTE ISCHEMIC CHANGES [facility] [id number] 11:46:00* Test Item Value Reference Range Interpretation Comments Troponin I (test code = 01413-8) <0.01 0-0.03 JOSE (test code = JOSE) [...] persistent tachyarrhythmia. Lab Interpretation (test code = 02577-9) Normal [place] 27302020-01-07 11:46:00* Test Item Value Reference Range Interpretation [...] disease, and per sistent tachyarrhythmia.CT, BRAIN, WITHOUT JZIBIVEI1148-93-18 08:57:00Reason for exam:->LEFT LEG NUMBNESS What is [...] is recommended for further characterization. Signed: Virgilio Olguin Verified Date/Time: 02/24/2019 08:57:26 Reading Location: [facility] Reading Room brain without IV fdxrlmos1437-77-86 08:57:00Interface, External Ris In - 02/24/2019 8:59 [...] rec ommended for further characterization. Signed: Virgilio Olguin Verified Date/Time: 02/24/2019 08:57:26 Reading Location: [facility] Readi ng Room 08 :57 AM [facility] 12 kyqn6280-56-82 07:00:25Interface, External Ris In - 02/24/2019 7:00 AM CSTVentricular Rate 90 BPMAtrial Rate 90 BPMP-R Interval 164 msQRS Duration 92 msQ-T Interval 402 msQTC Calcula tion(Bazett) 491 msP [place] 57 degreesR [place] 13 degreesT [place] 45 degreesNormal sin us rhythmProlonged QTAbnormal ECGWhen compared with ECG of 03-JAN-2019 06:58,No significant change was foundConfirmed by MD NAHEED, ROSE ([id number]) on 02/24/2019 7:00:21 [id number] 01:33:00* Test Item Value Reference Range Interpretation [...] neurological disease, and per sistent tachyarrhythmia.Basic Metabolic Fbatc2578-27-43 01:26:00* Test Item Value Reference Range Interpretation [...] mg/dL 70-105 H Calcium (test code = 86948-7) 9.2 mg/dL 8.4-10.2 EGFR (test code = 75540-7) 87 mL/min/1.73 sq m ESTIMATED GFR IS NOT ACCURATE CREATININE CLEARANCE IN PREDICTING GLOMERULAR FILTRATION RATE. ESTIMATED GFR IS NOT APPLICABLE FOR DIALYSIS PATIENTS. Lab Interpretation (test code = 29654-4) [facility]normal [facility] [id number] 01:26:00* Test Item Value Reference Range Interpretation [...] PATIENTS. CBC with platelet count + automated zgcy6127-29-56 00:59:00* Test Item Value Reference Range Interpretation [...] 450 K/CU MM MPV (test code = 88234-7) 9.8 fL 9.4-12.4 nRBC (test code = [...] (test code = 2801) 0 % 0-1 [facility] W/PLT COUNT & AUTO ZXEWAJADUMVS2888-50-95 00:59:00* Test Item Value Reference Range Interpretation [...] % 0-1 RAD, CHEST, 1 VIEW, NON [id number] 00:02:00Reason for exam:->CHEST PAINShould this be performed [...] 02/24/2019 00:02:07 chest 1 view portable / mrlakml6447-62-60 00:02:00Interface, External Ris In - 02/24/2019 12:04 [...] Jez Aguilar MDReport Verified Date/Time: 02/24/2019 00:02:07 [facility](Non-Nuclear Treadmill)2019-01-19 11:31:22Interface, External Ris In - [...] MD BRAVO JORGE ([id number]) on 01/19/2019 11:31:16 [facility] Ljrygjm1294-22-98 11:43:54* Test Item Value Reference Range Interpretation Comments Glucose POC (test code = Glucose POC) 201 mg/dL 70-115 H Notify RN or MDIf you consider your patient critically ill, the Desirae-Accu Check Infrom II meter should not be used for Glucose determination. Draw a venous Glucose and send to the main Lab for analysis. POC Swclihm3769-56-99 08:00:51* Test Item Value Reference Range Interpretation Comments Glucose POC (test code = Glucose POC) 229 mg/dL 70-115 H Notify RN or MDIf you consider your patient critically ill, the Desirae-Accu Check Infrom II meter should not be used for Glucose determination. Draw a venous Glucose and send to the main Lab for analysis. Lipid Didud1128-78-39 06:54:30* Test Item Value Reference Range Interpretation Comments Cholesterol Total (test code = Cholesterol Total) 129 mg/dL 0-20 0 RISK OF HEART DISEASEPublished by [place] [employer] Analyte Optimal Borderline Increased RiskCHOL [...] calculation is LDL/HDL Ratio=LDL Calc/HDL Chol Hemoglobin J2s3704-22-06 06:50:45* Test Item Value Reference Range Interpretation Comments Hemoglobin A1c (test code = Hemoglobin A1c) 7.7 % 4.8-5.9 H Non Diabetic 4.8- 5.9%Diabetic <7.0% Thyroid Stimulating Gmkcikt2182-40-22 06:50:45* Test Item Value Reference Range Interpretation Comments TSH (test code = TSH) 0.854 mIU/mL 0.270-4.200 Troponin [id number] 06:50:45* Test Item Value Reference Range Interpretation [...] a diagnosis of chronic myocardial injury. Urinalysis Pynqaonvuxn2282-66-77 02:14:12* Test Item Value Reference Range Interpretation Comments UA WBC (test code = UA WBC) 0-5 0-5 UA RBC (test code = UA RBC) None Seen 0-5 UA Bacteria (test code = UA Bacteria) Few A UA Squam Epithelial (test code = UA Squam Epithelial) 0-5 Troponin [id number] 02:13:54* Test Item Value Reference Range Interpretation [...] chronic myocardial injury. Urinalysis with Microscopic if ddkleuaca4445-05-72 02:11:04* Test Item Value Reference Range Interpretation [...] Indicated Not Indicate d A Urine Drug Qgoybq3434-95-58 02:07:41* Test Item Value Reference Range Interpretation [...] separate confirmatory test if desired. Comprehensive Metabolic Rqigv7259-26-08 22:40:04* Test Item Value Reference Range Interpretation [...] is not provided, and the patient is -[place], multiply by 1.212. If sex is not [...] the National Kidney Foundation, http://nkdep.nih.gov Comprehensive Metabolic Vomgf6462-64-28 22:40:04* Test Item Value Reference Range Interpretation [...] is not provided, and the patient is -[place], multiply by 1.212. If sex is not [...] is not provided, and the patient is -[place], multiply by 1.212. If sex is not [...] by the National Kidney Foundation, http://nkdep.nih.gov Creatine Epnieu8261-95-12 22:40:04* Test Item Value Reference Range Interpretation Comments CK (test code = CK) 104 U/L 39-308 Lipase Dgput1505-67-85 22:40:04* Test Item Value Reference Range Interpretation Comments Lipase Level (test code = Lipase Level) 22 U/L 13-60 Pro B Natriuretic Dmpzhnk6980-74-09 22:40:04* Test Item Value Reference Range Interpretation Comments NT-proBNP (test code = NT-proBNP) 47 pg/mL 0-124 Comprehensive Metabolic Zapxe5946-52-18 22:40:04* Test Item Value Reference Range Interpretation [...] is not provided, and the patient is -[place], multiply by 1.212. If sex is not [...] is not provided, and the patient is -[place], multiply by 1.212. If sex is not [...] by the National Kidney Foundation, http://nkdep.nih.gov Troponin T7110-73-25 22:40:04* Test Item Value Reference Range Interpretation [...] of chronic myocardial injury. Prothrombin Time and VXD0517-44-65 21:42:53* Test Item Value Reference Range Interpretation Comments Prothrombin Time (test code = Prothrombin Time) 12.6 seconds 9.8-13 .4 INR (test code = INR) 1.1 ratio 0.6-1.2 Partial Thromboplastin Zpfo9369-64-81 21:42:53* Test Item Value Reference Range Interpretation Comments Partial Thromboplastin Time (test code = Partial Throm boplastin Time) 34.10 seconds 24.39-37.25 Complete Blood Count with Uzagnyakcyvw4909-45-45 21:34:23* Test Item Value Reference Range Interpretation [...] code = IPF) 0 % N Automated Aeioxkditarh5268-79-47 21:34:23* Test Item Value Reference Range Interpretation Comments Neutro Auto (test code = Neutro Auto) 65.4 % 36.0-70.0 Lymph Auto (test code = Lymph Auto) 23.3 % 12.0-44.0 Fulton Auto (test code = Fulton Auto) 8.6 % 0.0-11.0 Eos, Auto (test code = Eos, Auto) 1.6 % 0.0-7.0 Basophil Auto (test code = Basophil Auto) 0.3 % 0.0-2.0 Neutro Absolute (test code = Neutro Absolute) 4.8 x10 1.6-7.4 Lymph Absolute (test code = Lymph Absolute) 1.73 x10 .50-4.60 Fulton Absolute (test code = Fulton Absolute) .64 x10 .00-1.20 Eos Absolute (test code = Eos Absolute) 0.12 x10 0.00-0.74 Baso Absolute (test code = Baso Absolute) 0.02 x10 0.00-0.21 IG Ixhlo1831-81-45 21:34:23* Test Item Value Reference Range Interpretation Comments IG (test code = IG) 0.8 % 0.0-5.0 IG Abs (test code = IG Abs) 0 x10 N XR Chest 1 View Pltroiz4662-86-56 21:08:50Patient: ARANZA LOPEZ Date/Time01/13/2019 20:43 CSTReason for ExamCHF (Congestive Heart Failure), knownReportChest one view AP 01/13/2019 9:08 PMCLINICAL INDICATION: CHFCOMPARISON: 09/07/2016LOCATION: [id number]:Cardiomediastinal contours are within normal limits. There is mild pulmonary edema. There are post surgical changes in the sternum and cervical spine. Final Dictated by: MD Johnston Timothy JDictated DT/TM: 01/13/2019 9:08 pmSigned by: MD Johnston Timothy JSigned (Electronic Signature): 01/13/2019 9:08 jjJJSYVRFXUT8649-17-76 21:02:00Negative *NA*(01/11/19 3:02 PM)[facility]ARD[facility] PMJBZQR8068-58-15 20:50:00<0.02 [facility]annCHEM MGHTU9677-72-87 20:50:36247Ejniragh HermannCHEM PANEL 2019-01-11 20:50:009[facility]annCHEM HHRRK4728-63-00 20:50:001.25[facility]annCHEM SPABQ1814-82-27 20:50:44718Tfrrfltj HermannCHEM SYRQI4837-66-39 20:50:003.8[facility]annCHEM MQOQA2550-37-33 20:50:62782Finioedv HermannCHEM YTPVO1023-12-88 20:50:0026[facility]annCHEM EAQZY5766-79-93 20:50:009.7 [facility]annCHEM QQICP5243-26-21 20:50:0015.8[facility]annCHEM PANEL 2019-01-11 20:50:0068[facility] JyndhpyXVJVGLNIHQ0810-21-00 20:50:007.1[facility] QilispmNCTNPGJFIN6608-50-51 20:50:004.84[facility] QyhhmxeZHKYQIOVGS1947-18-38 20:50:0014.7[facility] SdeuoucAEKLXHDNEV0780-27-40 20:50:0042.8[facility] Artur ZVWZEHAIAZ7794-58-96 20:50:0088.5[facility] NixphvtNWGNLKOEMQ3028-72-32 20:50:00* Test Item Value Reference Range Interpretation Comments MCH (test code = MCH) 30.5 pg 27.0-31.0 Memorial LnurljwGLBDKOFMMS1056-19-54 20:50:0034.4[facility] HermannHEMATOLOGY 2019-01-11 20:50:0015.5[facility] LiwbhqhJOZSMAIIWI1629-03-13 20:50:82030Csrvzzcw UccmxgzVUBRYYCBTR9526-36-77 20:50:008.0[facility] KynzmztTPSUEOQTAH6877-04-06 20:50:0063.2[facility]orial VksbvtvRXUYZAEKJR7203-50-14 20:50:0025.9[facility] RVNMELBHZS0849-47-10 20:50:007.9[facility] GutfixiJYWUVKJLOA6043-19-09 20:50:002.0 Memorial WtekevtDKLXZQSBRD1801-33-77 20:50:001.0[facility] HermannHEMATOLOGY 2019-01-11 20:50:004.5[facility] AjbkbjqPSZSLUBTRA2344-16-57 20:50:001.8[facility] WesejvrYRLLRQLYPL3029-13-97 20:50:000.6[facility] EaojkskUWPCNMXOHM8145-40-89 20:50:000.1[facility] ImonlphIGNABRGMIP9099-06-00 20:50:000.1[facility] HermannPOC- Glucose hhmir8101-47-42 12:19:00* Test Item Value Reference Range Interpretation Comments POC-Glucose Meter (test code = 1538) 257 mg/dL 70-110 H : TESTED AT [address], [address]: [employer] Machine Operator/B2B Appointment Setter ID = [id number] for Queen Cardona Lab Interpretation (test code = 95966-1) Abnormal [facility] CenterPO[facility]GLUCOSE THECI7860-12-41 12:19:00* Test Item Value Reference Range Interpretation Comments POC-GLUCOSE METER (BEAKER) (test code = 1538) 257 mg/dL 70-110 H : TESTED AT [address], [address]: [employer] Machine Operator/B2B Appointment Setter ID = [id number] for Queen Cardona POCT-GLUCOSE ORGOH9468-31-30 07:21:00* Test Item Value Reference Range Interpretation Comments POC-GLUCOSE METER (BEAKER) (test code = 1538) 218 mg/dL 70-110 H : TESTED AT [address], [address]: [employer] Machine Operator/B2B Appointment Setter ID = [id number] for Queen Cardona BASIC METABOLIC LGGKN1582-57-10 06:23:00* Test Item Value Reference Range Interpretation [...] IS NOT APPLICABLE FOR DIALYSIS PATIENTS. POCT-GLUCOSE KFFFN4174-35-79 23:30:00* Test Item Value Reference Range Interpretation Comments POC-GLUCOSE METER (BEAKER) (test code = 1538) 250 mg/dL 70-110 H : TESTED AT [address], [address]: [employer] Machine Operator/B2B Appointment Setter ID = [id number] for ABHISHEK ROBB POCT-GLUCOSE ULDHL6326-01-57 16:53:00* Test Item Value Reference Range Interpretation Comments POC-GLUCOSE METER (BEAKER) (test code = 1538) 319 mg/dL 70-110 H : TESTED AT [address], [address]: [employer] Machine Operator/B2B Appointment Setter ID = [id number] for Queen Cardona qONI4626-41-05 12:43:00* Test Item Value Reference Range Interpretation Comments PTT (test code = 40327-8) 48.9 22.5- 36.0 seconds H Lab Interpretation (test code = 48676-7) Abnormal [facility]APTT[facility] 12:43:00* Test Item Value Reference Range Interpretation Comments PARTIAL THROMBOPLASTIN TIME (BEAKER) (test code = 760) 48.9 seconds 22.5-36.0 H POCT-GLUCOSE YNLPA8928-91-15 11:48:00* Test Item Value Reference Range Interpretation Comments POC-GLUCOSE METER (BEAKER) (test code = 1538) 250 mg/dL 70-110 H : TESTED AT [address], [address]: [employer] Machine Operator/B2B Appointment Setter ID = [id number] for Queen Cardona POCT-GLUCOSE ETITP9886-65-37 07:29:00* Test Item Value Reference Range Interpretation Comments POC-GLUCOSE METER (BEAKER) (test code = 1538) 214 mg/dL 70-110 H : TESTED AT [address], [address]: [employer] Machine Operator/B2B Appointment Setter ID = [id number] for Queen Cardona Alsadluyw0143-45-37 03:35:00* Test Item Value Reference Range Interpretation Comments Magnesium (test code = 27624-5) 2.0 mg/dL 1.6-2.6 Lab Interpretation (test code = 90051-5) Normal [facility]iumPhosphorus2019-11-18 03:35:00* Test Item Value Reference Range Interpretation Comments Phosphorus (test code = 2777-1) 4.5 mg/dL 2.3-4.7 Lab Interpretation (test code = 36890-5) Normal [facility]iumPHOSPHORUS2019-11-18 03:35:00* Test Item Value Reference Range Interpretation Comments PHOSPHORUS (BEAKER) (test code = 604) 4.5 mg/dL 2.3-4.7 IANNYIZKR2634-29-32 03:35:00* Test Item Value Reference Range Interpretation Comments MAGNESIUM (BEAKER) (test code = 627) 2.0 mg/dL 1.6-2.6 BASIC METABOLIC FLNOC0628-16-90 03:35:00* Test Item Value Reference Range Interpretation [...] IS NOT APPLICABLE FOR DIALYSIS PATIENTS. Calcium, Lxguupr1832-73-95 02:33:00* Test Item Value Reference Range Interpretation Comments Calcium, Ion (test code = 1994-3) 1.10 mmol/L 1.12-1.27 L pH, Blood (test code = 92642-0) 7.43 Lab Interpretation (test code = 21928-0) Abnormal [facility] CenterCALCIUM, YQDAJLV8980-47-02 02:33:00* Test Item Value Reference Range Interpretation Comments CALCIUM IONIZED (BEAKER) (test code = 698) 1.10 mmol/L 1.12-1.27 L PH, BLOOD (BEAKER) (test code = 1810) 7.43 WVHJ6410-85-38 02:04:00* Test Item Value Reference Range Interpretation Comments PARTIAL THROMBOPLASTIN TIME (BEAKER) (test code = 760) 47.2 seconds 22.5-36.0 H CBC W/PLT COUNT & AUTO KBOASVJNJGDJ2309-88-13 01:46:00* Test Item Value Reference Range Interpretation [...] code = 2801) 1 % 0-1 POCT-GLUCOSE GDBGB3583-05-50 21:17:00* Test Item Value Reference Range Interpretation Comments POC-GLUCOSE METER (BEAKER) (test code = 1538) 333 mg/dL 70-110 H : TESTED AT [address], [address]: [employer] Machine Operator/B2B Appointment Setter ID = [id number] for FREDERIC MARTIN PORZ4166-73-03 18:25:00* Test Item Value Reference Range Interpretation Comments PARTIAL THROMBOPLASTIN TIME (BEAKER) (test code = 760) 37.9 seconds 22.5-36.0 H POCT-GLUCOSE ESUUR1800-67-13 16:45:00* Test Item Value Reference Range Interpretation Comments POC-GLUCOSE METER (BEAKER) (test code = 1538) 334 mg/dL 70-110 H : TESTED AT [address], [address]: [employer] Machine Operator/B2B Appointment Setter ID = [id number] for Hillary Marley POCT-GLUCOSE CZREI9827-81-93 12:41:00* Test Item Value Reference Range Interpretation Comments POC-GLUCOSE METER (BEAKER) (test code = 1538) 290 mg/dL 70-110 H : TESTED AT [place] [id number] [facility], [address]: [employer] Machine Operator/B2B Appointment Setter ID = [id number] for Javed Marleymy YRXK1574-36-72 11:29:00* Test Item Value Reference Range Interpretation Comments PARTIAL THROMBOPLASTIN TIME (BEAKER) (test code = 760) 39.1 seconds 22.5-36.0 H POCT-GLUCOSE JOCTX2056-11-44 07:56:00* Test Item Value Reference Range Interpretation Comments POC-GLUCOSE METER (BEAKER) (test code = 1538) 274 mg/dL 70-110 H : TESTED AT [facility] [address] [facility], [address]: [employer] Machine Operator/B2B Appointment Setter ID = [id number] for Hillary Marley UYRA9907-31-36 03:14:00* Test Item Value Reference Range Interpretation Comments PARTIAL THROMBOPLASTIN TIME (BEAKER) (test code = 760) 35.4 seconds 22.5-36.0 CALCIUM, XKTPRXQ5386-58-04 03:13:00* Test Item Value Reference Range Interpretation Comments CALCIUM IONIZED (BEAKER) (test code = 698) 1.15 mmol/L 1.12-1.27 PH, BLOOD (BEAKER) (test code = 1810) 7.43 BPKLLRMWLI7236-77-34 03:09:00* Test Item Value Reference Range Interpretation Comments PHOSPHORUS (BEAKER) (test code = 604) 4.2 mg/dL 2.3-4.7 TZTJKPPWG8815-19-20 03:09:00* Test Item Value Reference Range Interpretation Comments MAGNESIUM (BEAKER) (test code = 627) 2.0 mg/dL 1.6-2.6 BASIC METABOLIC RZUWM1968-53-87 03:09:00* Test Item Value Reference Range Interpretation [...] DIALYSIS PATIENTS. CBC W/PLT COUNT & AUTO VJUFKAGUDXUH5729-83-22 02:57:00* Test Item Value Reference Range Interpretation [...] code = 2801) 1 % 0-1 POCT-GLUCOSE AIJUY8184-61-12 22:22:00* Test Item Value Reference Range Interpretation Comments POC-GLUCOSE METER (BEAKER) (test code = 1538) 205 mg/dL 70-110 H : TESTED AT [address], [address]: [employer] Machine Operator/B2B Appointment Setter ID = [id number] for AMANDA QURESHI WUDN6170-80-22 20:09:00* Test Item Value Reference Range Interpretation Comments PARTIAL THROMBOPLASTIN TIME (BEAKER) (test code = 760) 33.8 seconds 22.5-36.0 POCT-GLUCOSE AKLQT9519-96-18 17:24:00* Test Item Value Reference Range Interpretation Comments POC-GLUCOSE METER (BEAKER) (test code = 1538) 227 mg/dL 70-110 H : TESTED AT [address], [address]: [employer] Machine Operator/B2B Appointment Setter ID = [id number] for Hillary Marley PHFK6035-61-17 14:13:00* Test Item Value Reference Range Interpretation Comments PARTIAL THROMBOPLASTIN TIME (BEAKER) (test code = 760) 32.5 seconds 22.5-36.0 TROPONIN [id number] 14:01:00* Test Item Value Reference Range Interpretation [...] acute neurological disease, and per sistent tachyarrhythmia.POCT-GLUCOSE ZKSRG2842-05-57 13:42:00* Test Item Value Reference Range Interpretation Comments POC-GLUCOSE METER (BEAKER) (test code = 1538) 245 mg/dL 70-110 H : TESTED AT [address], [address]: [employer] Machine Operator/B2B Appointment Setter ID = [id number] for MARJORIE MENG CBC (hemogram only)2019-01-03 08:12:00* [...] 450 K/CU MM MPV (test code = 58632-5) 10.3 fL 9.4-12.4 nRBC (test code = 413) 0 0- 0 /100 WBC Lab Interpretation (test code = 52211-8) [facility]normal [facility]2019-01-03 08:12:00* Test Item Value Reference [...] 413) 0 /100 WBC 0 -0 POCT-GLUCOSE [id number] 07:58:00* Test Item Value Reference Range Interpretation Comments POC-GLUCOSE METER (BEAKER) (test code = 1538) 252 mg/dL 70-110 H : TESTED AT [facility] [address] [place] [place], [address]: [employer] Machine Operator/B2B Appointment Setter ID = [id number] for Hillary Marley TROPONIN [id number] 06:38:00* Test Item Value Reference Range Interpretation [...] acidosis, acute neurological disease, and per sistent tachyarrhythmia.GMZXPTZWK1387-34-49 06:29:00* Test Item Value Reference Range Interpretation Comments MAGNESIUM (BEAKER) (test code = 627) 2.1 mg/dL 1.6-2.6 BASIC METABOLIC OARGO4428-41-20 06:29:00* Test Item Value Reference Range Interpretation [...] GFR IS NOT APPLICABLE FOR DIALYSIS PATIENTS. [id number] 03:41:00* Test Item Value Reference Range Interpretation Comments PARTIAL THROMBOPLASTIN TIME (SHERRIEAKER) (test code = 760) 36.2 seconds 22.5-36.0 H 6 hours after starting heparin infusion and as indicated per sliding scalePOCT- GLUCOSE [id number] 03:18:00* Test Item Value Reference Range Interpretation Comments POC-GLUCOSE METER (ZURI) (test code = 1538) 190 mg/dL 70-110 H : TESTED AT [facility] [address] [place] [address], [address]: [employer] Machine Operator/B2B Appointment Setter ID = [id number] for AMANDA QURESHI B-type Natriuretic Factor (BNP)2019-01-02 22:23:00* Test Item Value Reference Range Interpretation Comments BNP (test code = 57636-3) 10 pg/mL 0-100 Lab Interpretation (test code = 37600-5) Normal [facility]iumB-[facility] NATRIURETIC FACTOR (BNP)2019-01-02 22:23:00 * Test Item Value Reference Range Interpretation Comments B-TYPE NATRIURETIC PEPTIDE (BEAKER) (test code = 700) 10 pg/mL 0-100 TROPONIN [id number] 22:23:00* Test Item Value Reference Range Interpretation [...] per sistent tachyarrhythmia.RAD, CHEST, 1 VIEW, NON [id number] 22:20:00Reason for exam:->CHEST PAINShould this be performed [...] Verified Date/Time: 01/02/2019 22:20: 00 Reading Location: [address] Consult Reading Room Electronically flora d by: [...] DIALYSIS PATIENTS. CBC W/PLT COUNT & AUTO GADHCPXZNRBW6410-14-06 21:56:00* Test Item Value Reference Range Interpretation [...] code = 2801) 1 % 0-1 POCT-GLUCOSE [id number] 13:08:00* Test Item Value Reference Range Interpretation Comments POC-GLUCOSE METER (BEAKER) (test code = 1538) 180 mg/dL 70-110 H : TESTED AT [address], [address]: [employer] Machine Operator/B2B Appointment Setter ID = [id number] for Jw Healy POCT-GLUCOSE [id number] 13:05:00* Test Item Value Reference Range Interpretation Comments POC-GLUCOSE METER (BEAKER) (test code = 1538) 139 mg/dL 70-110 H : TESTED AT [address], [address]: [employer] Machine Operator/B2B Appointment Setter ID = [id number] for Som Cardona POCT-GLUCOSE [id number] 10:04:00* Test Item Value Reference Range Interpretation Comments POC-GLUCOSE METER (BEAKER) (test code = 1538) 155 mg/dL 70-110 H : TESTED AT [address], [address]: [employer] Machine Operator/B2B Appointment Setter ID = [id number] for TIN FREEMAN POCT-GLUCOSE [id number] 21:39:00* Test Item Value Reference Range Interpretation Comments POC-GLUCOSE METER (BEAKER) (test code = 1538) 240 mg/dL 70-110 H : TESTED AT [address], [address]: [employer] Machine Operator/B2B Appointment Setter ID = [id number] for JULIET GUZMAN POCT-GLUCOSE [id number] 17:30:00* Test Item Value Reference Range Interpretation Comments POC-GLUCOSE METER (BEAKER) (test code = 1538) 369 mg/dL 70-110 H : TESTED AT [address], [address]: [employer] Machine Operator/B2B Appointment Setter ID = [id number] for LYDIA TIN POCT-GLUCOSE [id number] 13:05:00* Test Item Value Reference Range Interpretation Comments POC-GLUCOSE METER (BEAKER) (test code = 1538) 265 mg/dL 70-110 H : TESTED AT [address], [address]: [employer] Machine Operator/B2B Appointment Setter ID = [id number] for TIN FREEMAN POCT-GLUCOSE [id number] 08:03:00* Test Item Value Reference Range Interpretation Comments POC-GLUCOSE METER (BEAKER) (test code = 1538) 167 mg/dL 70-110 H : TESTED AT [address], [address]: [employer] Machine Operator/B2B Appointment Setter ID = [id number] for TIN FREEMAN, [id number] 07:10:00* Test Item Value Reference Range Interpretation Comments ABO Grouping (test code = 2588) O Rh Factor (test code = 2589) NEG [facility]iumType and screen, automated ([facility] Lab)2018-12-29 06:16:00* Test Item Value Reference Range Interpretation Comments ABO/RH AUTOMATED (BEAKER) (test code = 2260) O NEGATIVE Ab Scrn (test code = 890-4) NEGATIVE [facility]iumPOCT-GLUCOSE [id number] 22:15:00* Test Item Value Reference Range Interpretation Comments POC-GLUCOSE METER (BEAKER) (test code = 1538) 283 mg/dL 70-110 H : TESTED AT [address], [address]: [employer] Machine Operator/B2B Appointment Setter ID = [id number] for ERIC HERMES POCT-GLUCOSE [id number] 18:04:00* Test Item Value Reference Range Interpretation Comments POC-GLUCOSE METER (BEAKER) (test code = 1538) 280 mg/dL 70-110 H : TESTED AT [address], [address]: [employer] Machine Operator/B2B Appointment Setter ID = [id number] for CALIN GIRON POCT-GLUCOSE [id number] 14:17:00* Test Item Value Reference Range Interpretation Comments POC-GLUCOSE METER (BEAKER) (test code = 1538) 372 mg/dL 70-110 H : TESTED AT [address], [address]: [employer] Machine Operator/B2B Appointment Setter ID = [id number] for CALIN GIRON POCT-GLUCOSE [id number] 08:29:00* Test Item Value Reference Range Interpretation Comments POC-GLUCOSE METER (BEAKER) (test code = 1538) 194 mg/dL 70-110 H : TESTED AT [address], [address]: [employer] Machine Operator/B2B Appointment Setter ID = [id number] for CALIN GIRON [id number] 05:39:00* Test Item Value Reference Range Interpretation Comments PHOSPHORUS (BEAKER) (test code = 604) 3.8 mg/dL 2.3-4.7 [id number] 05:39:00* Test Item Value Reference Range Interpretation Comments MAGNESIUM (BEAKER) (test code = 627) 2.1 mg/dL 1.6-2.6 BASIC METABOLIC [id number] 05:39:00* Test Item Value Reference Range Interpretation [...] DIALYSIS PATIENTS. CBC W/PLT COUNT & AUTO [id number] 05:29:00* Test Item Value Reference Range Interpretation [...] code = 2801) 1 % 0-1 POCT-GLUCOSE [id number] 22:37:00* Test Item Value Reference Range Interpretation Comments POC-GLUCOSE METER (BEAKER) (test code = 1538) 267 mg/dL 70-110 H : TESTED [address], [address]: [employer] Operator/B2B Appointment Setter ID = [id number] for ERIC HERMES PET, CARDIAC PERFUSION MULTIPLE STUDIES, REST AND [id number] 15:41:00 Reason for exam:->Chest painFINAL REPORT PROCEDURE: MYOCARDIAL PERFUSION PET IMAGING (Rest/Stress)CPT CODE: 86522 INDICATION: Chest pain, ACS suspected CARDIOVASCULAR PROFILE:Symptoms: [...] distribution.5. No prior seen. Signed: Noé Nevarez [facility] Verified Date/Time: 12/27/2018 15:41:01 myocardial perfusion PET (rest and stress)2018-12-27 15:41:00Interface, External Ris In - 12/27/2018 3:43 PM CSTFINAL REPORT PROCEDURE: MYOCARDIAL PERFUSION PET IMAGING (Rest/Stress)CPT CODE: 28342 INDICATION: Chest pain, ACS suspected CARDIOVASCULAR PROFILE:Symptoms: [...] distribution.5. No prior seen. Signed: Noé Nevarez [facility] Verified Date/Time: 12/27/2018 15:41:01 [facility] POCT-GLUCOSE [id number] 16:53:00* Test Item Value Reference Range Interpretation Comments POC-GLUCOSE METER (ZURI) (test code = 1538) 185 mg/dL 70-110 H : TESTED AT [facility] [address] [facility], [address]: [employer] Machine Operator/B2B Appointment Setter ID = [id number] for ADRIAN BLACKWELL TROPONIN [id number] 10:51:00* Test Item Value Reference Range Interpretation [...] disease, and per sistent tachyarrhythmia.Rapid drug screen, [id number] 07:34:00* Test Item Value Reference Range Interpretation Comments Barbiturate Screen (test code = 35584-5) Negative Negative Benzodiazepine Screen (test code = 21163-1) Negative Negative Cocaine (Metab.) Screen (test code = 3397-7) Negative Negative Methadone Screen (test code = 99030-4) Negative Negative Opiate Screen (test code = 83114-6) Positive Negative A Cannabinoid Screen (test code = 50088-5) Negative Negative Amph/Methamph Screen (test code = 95782-6) Negative Negative Phencyclidine Screen (test code = 96915-5) Negative Negative JOSE (test code = JOSE) DRUG CUTOFF C ONC.Cocaine 300 ng/mL Cannabinoid 50 ng/mLBenzodiazepine 200 ng/mLBarbiturate 200 ng/mLPhencyclidine 25 ng/mLOpiate 300 ng/mLMethadone 300 ng/mLAmphetamine/ 1000 ng/mL Methamphetamine This assay provides an unconfirmed qualitative test result for the clinical management of patients in emergency situations. Chain of custody not maintained. Some buaq-qcz-lebhrky medications, as well as adulterants, may cause inaccurate results. Clinical correlation should be applied. A more comprehensive drug screen or confirmation of a detected drug may be performed upon request. Lab Interpretation (test code = 00277-6) Abnormal [facility] Center[facility] SCREEN, [id number] 07:34:00* Test Item Value Reference Range Interpretation [...] situations. Chain of custody not maintained. Some ehvn-ibg-dgyoydi me dications, as well as adulterants, may cause inaccurate results. Clinical correl ation should be applied. A more comprehensive drug screen or confirmation of a d etected drug may be performed upon request.POCT-GLUCOSE [id number] 07:10:00 * Test Item Value Reference Range Interpretation Comments POC-GLUCOSE METER (BEAKER) (test code = 1538) 198 mg/dL 70-110 H : TESTED AT [facility] [address] [facility], [address]: [employer] Machine Operator/B2B Appointment Setter ID = [id number] for FITO ESCOBAR CBC W/PLT COUNT & AUTO [id number] 06:53:00* Test Item Value Reference Range Interpretation [...] code = 2801) 1 % 0-1 TROPONIN [id number] 06:28:00* Test Item Value Reference Range Interpretation [...] neurological disease, and per sistent tachyarrhythmia.Hepatic function [id number] 06:25:00* Test Item Value Reference Range Interpretation Comments Protein, Total (test code = 2885-2) 6.2 6.0- 8.3 gm/dL Specimen slightly hemolyzed Albumin (test code = 36495-4) 3.6 g/dL 3.5-5 Specimen slightly hemolyzed Total Bilirubin (test code = 1975-2) 0.3 mg/dL 0.2-1.2 Specimen slightly hemolyzed Bilirubin, Direct (test code = 1968-7) 0.1 mg/dL 0.1-0.5 Specimen slightly hemolyzed Alkaline Phosphatase (test code = 6768-6) 84 U/L 40-150 AST (test code = 1920-8) 22 U/L 5-34 Spe cimen slightly hemolyzed ALT (test code = 1742-6) 26 U/L 6-55 Spe cimen slightly hemolyzed Lab Interpretation (test code = 92827-0) Normal [facility] CenterMAGN[facility]IUM2019-11-08 06:25:00* Test Item Value Reference Range Interpretation Comments MAGNESIUM (BEAKER) (test code = 627) 2.1 mg/dL 1.6-2.6 Specimen slightly hemolyzed [id number] 06:25:00* Test Item Value Reference Range Interpretation Comments PHOSPHORUS (BEAKER) (test code = 604) 5.2 mg/dL 2.3-4.7 H Specimen slightly hemolyzed BASIC METABOLIC [id number] 06:25:00* Test Item Value Reference Range Interpretation [...] NOT APPLICABLE FOR DIALYSIS PATIENTS. HEPATIC FUNCTION [id number] 06:25:00* Test Item Value Reference Range Interpretation [...] slightly hemolyzed RAD, CHEST, 1 VIEW, NON [id number] 20:40:00Reason for exam:->CHEST PAINShould this be performed [...] NATRIURETIC PEPTIDE (BEAKER) (test code = 700) < pg/mL 0-100 [id number] 20:25:00* Test Item Value Reference Range Interpretation Comments D-Dimer, Quant (test code = 66760-1) 0.32 <0.50 MG/L FEU JOSE (test code [...] 95-100% range. Lab Interpretation (test code = 31216-3) Normal [facility] [id number] 20:25:00* Test Item Value Reference Range Interpretation [...] acidosis, acute neurological disease, and per sistent tachyarrhythmia.[id number] 20:25:00* Test Item Value Reference Range Interpretation Comments D-DIMER QUANTITATIVE (BEAKER) (test code = 671) 0.32 MG/L FEU <0.50 Intended Use: The D-Dimer Assay can be used to aid in the diagnosis of Deep Vein Thrombosis (DVT) and Pulmonary Embolism Disease (PED).In patients with low pre- test probability, various studies concerning STA Liatest D-dimer test have repor jon that with a cutoff value of 0.50 MG/L FEU, the Negative Predictive Value (HUMAN RESOURCES TRAINEE V) regarding the exclusion of thrombosis is within 95-100% range.BASIC METABOLIC [id number] 20:16:00* Test Item Value Reference Range Interpretation [...] DIALYSIS PATIENTS. CBC W/PLT COUNT & AUTO [id number] 20:02:00* Test Item Value Reference Range Interpretation [...] code = 2801) 1 % 0-1 POCT-GLUCOSE [id number] 17:55:00* Test Item Value Reference Range Interpretation Comments POC-GLUCOSE METER (BEAKER) (test code = 1538) 353 mg/dL 70-110 H : TESTED AT [address], [address]: [employer] Machine Operator/B2B Appointment Setter ID = [id number] for LEE, FRANTZ POCT-GLUCOSE [id number] 11:40:00* Test Item Value Reference Range Interpretation Comments POC-GLUCOSE METER (BEAKER) (test code = 1538) 196 mg/dL 70-110 H : TESTED AT [address], [address]: [employer] Machine Operator/B2B Appointment Setter ID = [id number] for LEE, FRANTZ POCT-GLUCOSE [id number] 23:38:00* Test Item Value Reference Range Interpretation Comments POC-GLUCOSE METER (BEAKER) (test code = 1538) 213 mg/dL 70-110 H : TESTED AT [address], [address]: [employer] Machine Operator/B2B Appointment Setter ID = [id number] for STARR ADA CBC W/PLT COUNT & AUTO [id number] 06:50:00* Test Item Value Reference Range Interpretation [...] code = 2801) 1 % 0-1 POCT-GLUCOSE [id number] 22:47:00* Test Item Value Reference Range Interpretation Comments POC-GLUCOSE METER (BEAKER) (test code = 1538) 150 mg/dL 70-110 H TESTED AT [facility] [address] [facility] [address] Lipid [id number] 05:26:00* Test Item Value Reference Range Interpretation Comments Triglycerides (test code = 2571-8) 329 mg/dL Cholesterol (test code = 2093-3) 168 mg/dL HDL (test code = 2085-9) 24 mg/dL LDL Calculated (test code = 02538-6) 78 mg/dL JOSE (test code = JOSE) Triglyceride Reference Range : Low Risk <150 Borderline 150-199 High Risk 200-499 Very High Risk >=500 Cholesterol Reference Range: Low Risk <200 Borderline 200-239 High Risk >240 HDL Cholesterol Reference Range: Low Risk >=60 High Risk <40 LDL Cholesterol Reference Range: Optimal <100 Near Optimal 100-129 Borderline 130-159 High 160-189 Very High >=190 [facility]2019-10-21 05:26:00* Test Item Value Reference Range Interpretation Comments MAGNESIUM (BEAKER) (test code = 627) 1.9 mg/dL 1.6-2.6 BASIC METABOLIC [id number] 05:26:00* Test Item Value Reference Range Interpretation [...] IS NOT APPLICABLE FOR DIALYSIS PATIENTS. LIPID [id number] 05:26:00* Test Item Value Reference Range Interpretation [...] 130-159 High 160-189 Very High >=190 TROPONIN [id number] 05:24:00* Test Item Value Reference Range Interpretation [...] per sistent tachyarrhythmia.CBC W/PLT COUNT & AUTO [id number] 05:10:00* Test Item Value Reference Range Interpretation [...] code = 2801) 1 % 0-1 TROPONIN [id number] 02:00:00* Test Item Value Reference Range Interpretation [...] acute neurological disease, and per sistent tachyarrhythmia.POCT-GLUCOSE [id number] 00:24:00* Test Item Value Reference Range Interpretation Comments POC-GLUCOSE METER (BEAKER) (test code = 1538) 155 mg/dL 70-110 H TESTED AT [facility] [address] [place] [address] B-TYPE NATRIURETIC FACTOR (BNP)2018-12-07 20:37:00* Test Item Value Reference Range Interpretation Comments B-TYPE NATRIURETIC PEPTIDE (BEAKER) (test code = 700) 44 pg/mL 0-100 TROPONIN [id number] 20:36:00* Test Item Value Reference Range Interpretation [...] acidosis, acute neurological disease, and per sistent tachyarrhythmia.[id number] 20:29:00* Test Item Value Reference Range Interpretation Comments MAGNESIUM (BEAKER) (test code = 627) 1.7 mg/dL 1.6-2.6 BASIC METABOLIC [id number] 20:29:00* Test Item Value Reference Range Interpretation [...] GFR IS NOT APPLICABLE FOR DIALYSIS PATIENTS. PT/[id number] 20:18:00* Test Item Value Reference Range Interpretation Comments Protime (test code = 5902-2) 13.1 11.9- 14.2 seconds INR (test code = 6301-6) 1.0 <=5.9 PTT (test code = 83114-8) 28.6 22.5- 36.0 seconds JOSE (test code = JOSE) Effective 07/16/2018: PT Refe rence Range ChangeNew: 11.9- 14.2 Previous: 11.7-14.7 RECOMMENDED COUMADIN/WARFARIN INR THERAPY RANGESSTANDARD DOSE: 2.0-3.0 Includes: PROPHYLAXIS for venous thrombosis, sys temic embolization; TREATMENT for venous thrombosis and/or pulmonary embolus.HIGH RISK: Target INR is 2.5-3.5 for patients wiht mechanical heart valves. Lab Interpretation (test code = 31023-9) Normal [facility]iumPT/[id number] 20:18:00* Test Item Value Reference Range Interpretation [...] mechanical heart valves.RAD, CHEST, 1 VIEW, NON [id number] 20:10:00 Reason for exam:->sobShould this be performed [...] place. Signed: Dalia Montero MDReport Verified Date/Time: 20:10:44 W/PLT COUNT & AUTO [id number] 20:08:00* Test Item Value Reference Range Interpretation [...] code = 2801) 1 % 0-1 TROPONIN [id number] 10:49:00* Test Item Value Reference Range Interpretation [...] acute neurological disease, and per sistent tachyarrhythmia.Hemoglobin [id number] 07:54:00* Test Item Value Reference Range Interpretation Comments Hemoglobin A1C (test code = 4548-4) 7.6 % 4.3-6.1 H Lab Interpretation (test code = 39257-0) Abnormal [facility]iumT[facility]/Free T4 If [id number] 07:54:00* Test Item Value Reference Range Interpretation Comments TSH (test code = 94521-6) 0.60 0.35- 4.94 uIU/mL Lab Interpretation (test code = 12374-4) Normal [facility]iumHEMOGLOBIN [id number] 07:54:00* Test Item Value Reference Range Interpretation Comments HEMOGLOBIN A1C (BEAKER) (test code = 368) 7.6 % 4.3-6.1 H TSH/FREE T4 IF [id number] 07:54:00* Test Item Value Reference Range Interpretation Comments THYROID STIMULATING HORMONE (BEAKER) (test code = 772) 0.60 uIU/mL 0.35-4.94 BASIC METABOLIC [id number] 06:43:00* Test Item Value Reference Range Interpretation [...] IS NOT APPLICABLE FOR DIALYSIS PATIENTS. TROPONIN [id number] 06:27:00* Test Item Value Reference Range Interpretation [...] per sistent tachyarrhythmia.CBC W/PLT COUNT & AUTO [id number] 04:55:00* Test Item Value Reference Range Interpretation [...] 2801) 1 % 0-1 RAPID DRUG SCREEN, [id number] 02:53:00* Test Item Value Reference Range Interpretation [...] situations. Chain of custody not maintained. Some dxwr-cbi-tquzsdx me dications, as well as adulterants, may cause inaccurate results. Clinical correl ation should be applied. A more comprehensive drug screen or confirmation of a d etected drug may be performed upon request.Creatinine, random [id number] 02:03:00* Test Item Value Reference Range Interpretation Comments Creatinine, Ur (test code = 2161-8) 49.3 mg/dL JOSE (test code = JOSE) Reference Range: No Normals [facility] [id number] 02:03:00* Test Item Value Reference Range Interpretation Comments Sodium Urine (test code = 2955-3) 71 meq/L JOSE (test code = JOSE) Reference Range: No Normals [facility]iumCREATININE, RANDOM [id number] 02:03:00* Test Item Value Reference Range Interpretation Comments CREATININE URINE (BEAKER) (test code = 375) 49.3 mg/dL Reference Range: No NormalsSODIUM, RANDOM [id number] 02:03:00* Test Item Value Reference Range Interpretation Comments SODIUM URINE (BEAKER) (test code = 243) 71 meq/L Reference Range: No [id number] 01:49:00* Test Item Value Reference Range Interpretation Comments MAGNESIUM (BEAKER) (test code = 627) 2.1 mg/dL 1.6-2.6 LIPID [id number] 01:49:00* Test Item Value Reference Range Interpretation Comments TRIGLYCERIDES (ZURI) (test code = 540) 491 mg/dL CHOLESTEROL (ZURI) (test code = 631) 166 mg/dL HDL CHOLESTEROL (ZURI) (test code = 976) 21 mg/dL Calculated [...] High 160-189 Very High >=190 U/S, RENAL, [id number] 01:40:00 Reason for exam:->AKIFINAL REPORT TECHNIQUE: Grayscale [...] Signed: [facility] Verified Date/Time: 12/01/2018 01:40:35 renal mspnjxew5610-92-31 01:40:00Interface, External Ris In - 12/01/2018 4:19 [...] Signed: [facility] Verified Date/Time: 12/01/2018 01:40:35 [facility], [facility], COMPLETE (4 VIEWS), [id number] 23:40:00Reason for exam:->knee painShould this be performed [...] Date/Time: 11/30/2018 23:40:45 knee complete 4 views [id number] 23:40:00 Interface, External Ris In - 11/30/2018 11:42 PM CDTFINAL REPORT PATIENT ID: [id number] CLINICAL HISTORY: knee pain TECHNIQUE: 4 views [...] Jacklyn Huang Verified Date/Time: 11/30/2018 23:4 0:45 [facility], HAND, 3 VIEWS, [id number] 23:39:00 Reason for exam:->hand painShould this be [...] Date/Ti me: 11/30/2018 23:39:40 hand 3 views [id number] 23:39:00Interface, External Ris In - 11/30/2018 11:41 [...] JACKLYN HUANG MD on 11/30/2018 11:39 PM [facility], CHEST, PA OR AP, 1 [id number] 23:38:00Reason for exam:->chest painShould this be performed [...] chest PA or AP 1 view in [id number] 23:38:00Interface, External Ris In - 11/30/2018 11:40 [...] Signed: Jacklyn Moran Verified Date/Time: 11/30/2018 23:38:17 Scottyi radha signed by: JACKLYN HUANG MD on 11/30/2018 11:38 PM [facility], SPINE, LUMBAR, COMPLETE (MIN 4 VIEWS)2018-11-30 23:30:00 [...] 11/30/2018 23:30:17 spine lumbar complete 4 views [id number] 23:30:00Interface, External Ris In - 11/30/2018 11:32 [...] Signed: Jacklyn Huang Verified Date/Time: 11/30/2018 23:30:17 [facility] RAD, WRIST, RIGHT, COMPLETE (MIN 3 VIEWS)2018-11-30 [...] Signed: Jacklyn Huang Verified Date/Time: 11/30/2018 23:27:53 [facility] RAD, HAND, 3 VIEWS, [id number] 23:26:00Reason for exam:->hand painShould this be performed [...] Verified Date/Time: 11/30/2018 23:26:46 hand 3 views [id number] 23:26:00Interface, External Ris In - 11/30/2018 11:29 PM CDTFINAL REPORT CLINICAL HISTORY: hand pain TECHNIQUE: 3 views of the right hand COMPARISON: None IMPRESSION: The bones of the hand are intact without evidence of fracture or dislocation. Punctate radiodensity adjacent to the distal tuft of the first digit, correlate clinically to exclude radiopaque foreign body. Signed: Jacklyn Huang [facility] Verified Date/Time: 11/30/2018 23:26:46 [facility] B-TYPE NATRIURETIC FACTOR (BNP)2018-11-30 23:05:00* Test Item Value Reference Range Interpretation Comments B-TYPE NATRIURETIC PEPTIDE (BEAKER) (test code = 700) 14 pg/mL 0-100 TROPONIN [id number] 23:05:00* Test Item Value Reference Range Interpretation [...] neurological disease, and per sistent tachyarrhythmia.BASIC METABOLIC [id number] 22:56:00* Test Item Value Reference Range Interpretation [...] GFR IS NOT APPLICABLE FOR DIALYSIS PATIENTS. PT/[id number] 22:55:00* Test Item Value Reference Range Interpretation [...] mechanical heart valves.CBC W/PLT COUNT & AUTO [id number] 22:34:00* Test Item Value Reference Range Interpretation [...] % 0-1 - CTA ABD PEL W [id number] 22:46:00 Name: ARANZA LOPEZ [facility] : 1970 Age/S: 48 / M [address] [place] [address] Unit #: [id number] Loc: [place] [address] Phys: Coral Fonseca MD Acct: [id number] Dis Date: Status: DIS IN PHONE #: [phone] Exam Date: 09/10/20182121 FAX #: [phone] Reason: dissection protocol Report Has Been Amended EXAMS: CPT CODE: [id number] CTA ABD PEL W CONT 47527 Addendum - 11/20/2018 SIGNED 11/20/2018 ADDENDUM: [id number] CT/CTAAPWCONT TECHNIQUE: Helical imaging was performed after [...] Oral contrast was administered. DLP: 1977 mGy-cm FINDINGS: CT CHEST WITH CONTRAST: The [...] 1 Signed Report (CONTINUED) Name: ARANZA LOPEZ [facility] : 1970 Age/S: 48 / M [address] [place] [address] Unit #: [id number] Loc: [place] [address] Phys: Coral Fonseca MD Acct: [id number] Dis Date: Status: DIS IN PHONE #: [phone] Exam Date: 09/10/20182121 FAX #: [phone] Reason: dissection protocol Report Has Been Amended EXAMS: CPT CODE: [id number] CTA ABD PEL W CONT 34177 <Continued> AIRWAY: The central airway is normal.. [...] 2 Signed Report (CONTINUED) Name: ARANZA BALTAZAR [facility] : 1970 Age/S: 48 / M [address] [place] [address] Blvd Unit #: [id number] L oc: [place] [address] Phys: Coral Fonseca MD Acct: [id number] Dis Date: Status: DIS IN PHONE #: [phone] Exam Date: 09/10/20182121 FAX #: [phone] Abby son: dissection protocol R eport Has Been Amended EXAMS: CPT CODE: [id number] CTA ABD PEL W CONT 72593 <Continued> throughout the colon. APPENDIX: The appendix [...] 3 Signed Report (CONTINUED) Name: ARANZA LOPEZ [facility] : 1970 Age/S: 48 / M [address] [place] [address] Unit #: [id number] Loc: [place] [address] Phys: Coral Fonseca MD Acct: [id number] Dis Date: Status: DIS IN PHONE #: [phone] Exam Date: 09/10/20182121 FAX #: [phone] Reason: dissection protocol Report Has Been Amended EXAMS: CPT CODE: [id number] CTA ABD PEL W CONT 68462 <Continued> CC: Deepak Ruby MD; Coral Fonseca MD; Blake Cruz M.D. Technologist:RT Darell(R) CTDI: DLP: Trnscb Date/Time: 09/10/2018 (2215) t.SDR.LNV Orig Print D/T: S: 09/10/2018 (9) PAGE 4 Signed Report - CT ANGIO [id number] 22:46:00 Name: ARANZA LOPEZ [facility] : 1970 Age/S: 48 / M [address] [place] [address] Unit #: [id number] Loc: [facility] [place] [address] Phys: Coral Fonseca MD Acct: [id number] Dis Date: Status: DIS IN PHONE #: [phone] Exam Date: 09/10/20182121 FAX #: [phone] Reason: dissection protocol, cp Report Has Been Amended EXAMS: CPT CODE: [id number] CT ANGIO CHEST 82080 Addendum - 11/20/2018 SIGNED 11/20/2018 ADDENDUM: [id number] CT/CTACHWWO TECHNIQUE: Helical imaging was performed after [...] 1 Signed Report (CONTINUED) Name: ARANZA LOPEZ [facility] : 1970 Age/S: 48 / M [address] [place] [address] Unit #: [id number] Loc: [place] [address] Phys: Coral Fonseca MD Acct: [id number] Dis Date: Status: DIS IN PHONE #: [phone] Exam Date: 09/10/20182121 FAX #: [phone] Reason: dissection protocol, cp Report Has Been Amended EXAMS: CPT CODE: [id number] CT ANGIO CHEST 32382 <Continued> AIRWAY: The central airway is normal.. [...] 2 Signed Report (CONTINUED) Name: ARANZA BALTAZAR [facility] : 1970 Age/S: 48 / M [address] [place], [place] [address]vd Unit #: [id number] L oc: [place] [address] Phys: Coral Fonseca MD Acct: [id number] Dis Date: Status: DIS IN PHONE #: [phone] Exam Date: 09/10/20182121 FAX #: [phone] Abby son: dissection protocol, cp R eport Has Been Amended EXAMS: CPT CODE: [id number] CT ANGIO CHEST 56626 <Continued> throughout the colon. APPENDIX: The appendix [...] 3 Signed Report (CONTINUED) Name: ARANZA LOPEZ [facility] : 1970 Age/S: 48 / M [address] [place] [address] Unit #: [id number] Loc: [place] [address] Phys: Coral Fonseca MD Acct: [id number] Dis Date: Status: DIS IN PHONE #: [phone] Exam Date: 09/10/20182121 FAX #: [phone] Reason: dissection protocol, cp Report Has Been Amended EXAMS: CPT CODE: [id number] CT ANGIO CHEST 55607 <Continued> CC: Deepak Ruby MD; Coral Fonseca MD; Blake Cruz M.D. Technologist:Fanny Kennedy, (R) CTDI: DLP: Trnscb Date/Time: 09/10/2018 (2215) t.SDR.LNV Orig Print D/T: S: 09/10/2018 (3) PAGE 4 Signed Report CARDIAC [id number] 14:22:00[facility].02[facility] 2018-11-09 14:22:0075[facility]CARDIAC [id number] 10:34:00<0.02 [facility] ZjlvfucZZCJIPDAAW7967-90-45 06:47:00<2.0 (11/09/18 1:47 AM)[facility]annDR[facility] [id number] 06:19:00Negative *NA*(11/09/18 1:19 AM)[facility] [id number] 06:19:00Negative *NA*(11/09/18 1:19 AM)[facility] [id number] 06:19:00Negative *NA*(11/09/18 1:19 AM)[facility] [id number] 06:19:00Negative *NA*(11/09/18 1:19 AM)[facility] [id number] 06:19:00Negative *NA*(11/09/18 1:19 AM)[facility] EBBVLH6729-09-30 06:19:00Positive *ABN*(11/09/18 1:19 AM)[facility] RPEWPO0755-53-76 06:19:00Negative *NA*(11/09/18 1:19 AM)[facility] [id number] 06:19:00See Note (11/09/18 1:19 AM)[facility] [id number] 06:12:00Light Yellow *NA*(11/09/18 1:12 AM)[facility] [id number] 06:12:00Clear (11/09/18 1:12 AM)[facility]INE AND [id number] 06:12:00* Test Item Value Reference Range Interpretation Comments UA Spec Grav (test code = UA Spec Grav) 1.045 1 [facility] [id number] 06:12:00* Test Item Value Reference Range Interpretation Comments UA pH (test code = UA pH) 6.0 1 5.0-8.0 [facility] [id number] 06:12:00Negative (11/09/18 1:12 AM) [facility] [id number] 06:12:00Negative *NA*(11/09/18 1:12 AM) [facility] [id number] 06:12:00Negative *NA*(11/09/18 1:12 AM) [facility] [id number] 06:12:00Negative (11/09/18 1:12 AM) [facility] [id number] 06:12:00<1.0[facility] [id number] 06:12:00Negative (11/09/18 1:12 AM)[facility] [id number] 06:12:00Small *ABN*(11/09/18 1:12 AM)[facility] [id number] 06:12:00None Seen (11/09/18 1:12 AM)[facility] [id number] 06:12:006[facility] [id number] 06:12:001 [facility] NqbeoxoAUVUCTAJPE3802-20-49 02:58:00Negative *NA*(11/08/18 9:58 PM) [facility]annCARDIAC [id number] 02:38:00<0.02[facility] HermannCHEM [id number] 02:38:80727[place] HermannCHEM IZWNO6211-15-00 02:38:0013 [facility]annCHEM LIHMT0315-51-59 02:38:001.39[facility]annCHEM PANEL 2018-11-09 02:38:54008Enbkjfeq HermannCHEM XXTWW9088-54-72 02:38:003.4[facility]annCHEM [id number] 02:38:53568Lnfkatnn HermannCHEM [id number] 02:38:0028[facility]annCHEM [id number] 02:38:009.0[facility]annCHEM [id number] 02:38:0060[facility]annCHEM [id number] 02:38:007.1 [facility]annCHE[facility] [id number] 02:38:003.7[facility]annCHEM PANEL 2018-11-09 02:38:0029[facility]annCHEM [id number] 02:38:0023[facility]annCHEM [id number] 02:38:0099[facility]annCHEM [id number] 02:38:000.4[facility]annCHEM PQCHQ7873-30-47 02:38:0011.4[facility]annCHEM EZBPV8118-54-76 02:38:00* Test Item Value Reference Range Interpretation Comments B/C Ratio (test code = B/C Ratio) 9 1 6-25 [facility]CHEM BVPQK3259-65-01 02:38:003.4[facility]annCHEM PANEL 2018-11-09 02:38:00* Test Item Value Reference Range Interpretation Comments A/G Ratio (test code = A/G Ratio) 1.1 1 0.7-1.6 [facility] OmcmthuNPWNGZYPWS0516-30-35 02:38:006.3[facility]annHEMATOLOGY 2018-11-09 02:38:004.45[facility] YftygorCCAEWATQAL4504-43-96 02:38:0014.2[facility] SvqpiczDAWPHLPUQQ0561-87-65 02:38:0040.1[facility] PjwywunVNYPUWEJBD4112-35-71 02:38:0090.1[facility] RmyywwcPEHMHNSRIV0522-27-57 02:38:00* Test Item Value Reference Range Interpretation Comments MCH (test code = MCH) 31.9 pg 27.0-31.0 [facility] ZqojafeQGTXRDFRZJ0595-96-03 02:38:0035.4[facility] HermannHEMATOLOGY 2018-11-09 02:38:0015.8[facility] LxjfckoRXPMMZLIHP8281-94-24 02:38:32019Fwnvtoqi QxmwwuaMLHFQLCIGF1648-89-87 02:38:007.4[facility] YqqjeapFUMYTTILKB8365-45-54 02:38:0054.9[facility] DyjxfrxPHHMLQCDUD0214-66-14 02:38:0032.4[facility] Artur IVLGUMIQDJ1245-28-57 02:38:009.2[facility] DopfylkOAOFAADGTZ8561-44-29 02:38:002.6 [facility] HgoxgqtBPWUIIHQHO4075-72-78 02:38:000.9[facility]annHEMATOLOGY 2018-11-09 02:38:003.5[facility] XiruddvRCVYYKKMAL3538-46-34 02:38:002.0[facility] XdkhvyhEIAAKVPXKU8920-88-78 02:38:000.6[facility] MqmkkzwPFFVHWANVL9620-17-31 02:38:000.2[facility] XvmdlbcOOSAXRVHMX2387-60-52 02:38:000.1[facility] AHREXK4030-64-77 02:38:96695Ukgkoqwg GypbqmmBJCIKT2484-11-25 02:38:78137Vhyaexsr OakalvhTCUUJP0084-71-48 02:38:0025[facility] QpyezcaXFAUZB6518-33-32 02:38:00* Test Item Value Reference Range Interpretation Comments CHD Risk (test code = CHD Risk) 7.08 1 4.00-7.30 [facility]WirlcbpZVVIUG5496-49-07 02:38:00See Note 4*NA*(11/08/18 9:38 PM)[facility] KLLQJGIJW9727-85-63 02:38:007.7[facility]annHEMATOLOGY 2018-11-09 01:48:00* Test Item Value Reference Range Interpretation Comments ACT (TEG) Rapid (test code = ACT (TEG) Rapid) 105 s 86-118 [facility] GladwinJtftufaKWTJAWGIBC4846-70-06 01:48:00* Test Item Value Reference Range Interpretation Comments Split Point Rapid (test code = Split Point Rapid) 0.4 min [facility] GladwinSshanxhQDXDFWANPY7794-71-82 01:48:00* Test Item Value Reference Range Interpretation Comments R-time Rapid (test code = R-time Rapid) 0.6 min 0.4-0.7 [facility] CenterDkwwglmSQBMBJMBCG4461-54-86 01:48:00* Test Item Value Reference Range Interpretation Comments K-time Rapid (test code = K-time Rapid) 1.2 min 0.6-2.3 [facility] CenterWuejbeeJNQMATEIIP0554-47-39 01:48:00* Test Item Value Reference Range Interpretation Comments Angle Rapid (test code = Angle Rapid) 74 degrees 64-80 [facility] CenterGexgoyvCXVVEYHDRU9035-77-40 01:48:00* Test Item Value Reference Range Interpretation Comments Max Amplitude Rapid (test code = Max Amplitude Rapid) 64 mm 52-71 [facility] GladwinDxtvkhgPAEBHUSALI3235-39-93 01:48:008.8[facility]annHEMATOLOGY 2018-11-09 01:48:000.1[facility] HermannCARDIAC EXIDXPR8041-68-23 01:25:75907 [facility] CaoqiepIWDMGPURUEBF7304-04-05 01:25:0010.3[facility] HermannELECTROLYTES 2018-11-09 01:25:22464Ijhxapah KdtdlhnNBJGICOVYXFF6684-48-22 01:25:0012[facility] AjejhwlDGOCWWYWUMUG4375-17-00 01:25:001.43[facility] FwsrcanNEDYIRALYNUK4629-56-24 01:25:85655Fumdjsjl KoxmbhmFSCQMCJEYODX2873-24-83 01:25:003.3[facility] YQNILQXZSJJT9420-54-75 01:25:79459Cajdhwiu VocnkwfFUGANEOFHQMG5993-35-03 01:25:0028[facility] XihzavbLXDIDWSWHWSB7386-38-04 01:25:009.0[facility] WPURCSLLWADC8104-56-26 01:25:0058[facility] CtaxieyTJEYHQNREN6625-95-01 01:25:00 6.5[facility] ZoeidrxOCARRHRSXQ5980-24-47 01:25:004.71[facility]annHEMATOLOGY 2018-11-09 01:25:0014.9[facility] TfrfspgUPCLBMOFOF0937-65-30 01:25:0042.5[facility] TenezagQFOHKFSZPT3011-26-54 01:25:0090.2[facility] BfpxpwuVSSEAAOOFD3271-50-67 01:25:00* Test Item Value Reference Range Interpretation Comments MCH (test code = MCH) 31.7 pg 27.0-31.0 [facility] UonawvfPHXVYDXPVB2969-79-23 01:25:0035.1[facility]annHEMATOLOGY 2018-11-09 01:25:0015.4[facility] OfupwcmYBSUCLTLWI1765-52-35 01:25:10997Zadeudgt YjkgqjzUOKPMAQAYB6584-89-48 01:25:007.6[facility] KvlzkkcKBSWFMNXJS0294-84-65 01:25:00* Test Item Value Reference Range Interpretation Comments PT (test code = PT) 12.4 s 12.0-14.7 [facility] CenterWqoimfiKCKSDGLPJM5397-84-70 01:25:00* Test Item Value Reference Range Interpretation Comments INR (test code = INR) 0.94 1 0.85-1.17 [facility] CenterPushybcMKPLNIBGOA2988-60-19 01:25:00* Test Item Value Reference Range Interpretation Comments PTT (test code = PTT) 30.9 s 22.9-35.8 [facility] QatcksvHPTZVKPMDX7079-64-71 01:25:0054.6[facility]annHEMATOLOGY 2018-11-09 01:25:0032.0[facility] AemeuakCBLUKONQSI0629-50-13 01:25:009.8[facility] JnvkjqrBAUPQGDUUT6290-36-63 01:25:002.7[facility] OahfdsvBPGMBZNRWG6795-63-15 01:25:000.9[facility] TcbxtluMRCURUIEBM9476-80-27 01:25:003.6[facility] AZSCYVLJGR1470-70-72 01:25:002.1[facility] IijygsqUZHVDUTOJY8492-55-10 01:25:000.6 [facility] CxlosfvNIJFRWLDAK4597-07-62 01:25:000.2[facility]annHEMATOLOGY 2018-11-09 01:25:000.1[facility] HermannB-Type Natriuretic Iwwbsmf8336-19-82 21:15:00* Test Item Value Reference Range Interpretation Comments B-Type Natriuretic Peptide (test code = 27240-3) 41.1 0-100 [facility] WorthCreatine Kinase UF6581-14-69 21:13:00* Test Item Value Reference Range Interpretation Comments Creatine Kinase MB (test code = 99308-2) 2.00 0-5.0 [facility] WorthTroponin Y0914-02-30 21:13:00* Test Item Value Reference Range Interpretation Comments Troponin I (test code = JSU8040) 0.008 0-0.300 [facility] Orznv2375-69-07 21:06:00* Test Item Value Reference Range Interpretation Comments Sodium Level (test code = 2951-2) 137 136-145 [facility] WorthPotassium Mvjgb6716-65-96 21:06:00* Test Item Value Reference Range Interpretation Comments Potassium Level (test code = 2823-3) 3.3 3.5-5.1 L [facility] WorthChloride Gxbes5270-30-80 21:06:00* Test Item Value Reference Range Interpretation Comments Chloride Level (test code = 2075-0) 98 98-107 [facility] WorthCarbon Dioxide Ztyyj2977-71-24 21:06:00* Test Item Value Reference Range Interpretation Comments Carbon Dioxide Level (test code = 2028-9) 26 22-29 [facility] Fort WorthAnion Zin8934-28-81 21:06:00* Test Item Value Reference Range Interpretation Comments Anion Gap (test code = 43092-1) 16.3 8-16 H [facility] WorthBlood Urea Ebfnuiev6995-63-20 21:06:00* Test Item Value Reference Range Interpretation Comments Blood Urea Nitrogen (test code = 3094-0) 16 7-26 [facility] WorthCreatinine2019-09-13 21:06:00* Test Item Value Reference Range Interpretation Comments Creatinine (test code = 2160-0) 1.46 0.72-1.25 H [facility] WorthBUN/Creatinine Wszgi4379-05-87 21:06:00* Test Item Value Reference Range Interpretation Comments BUN/Creatinine Ratio (test code = 3097-3) 11 6-25 [facility] Fort WorthEstimat Glomerular Filtration Rate 2018-10-31 21:06:00* Test Item Value Reference Range Interpretation Comments Estimat Glomerular Filtration Rate (test code = 926068669) 52 >60 L Ranges were taken from the National Kidney Disease Education Program and the [facility] Kidney Foundation literature.Reference ranges:60 or greater: Ikefqe99-93 ( for 3 consecutive months): Chronic kidney disease 15 or less: Kidney failureBaylor Scott & [facility] WorthGlucose Smjva9657-84-32 21:06:00* Test Item Value Reference Range Interpretation Comments Glucose Level (test code = SHQ7663) 271 74-118 H [facility] WorthCalcium Fiyqc0226-44-03 21:06:00* Test Item Value Reference Range Interpretation Comments Calcium Level (test code = 38326-3) 9.4 8.4-10.2 [facility] WorthTotal Xnmlnmxpf3547-06-44 21:06:00* Test Item Value Reference Range Interpretation Comments Total Bilirubin (test code = 1975-2) 0.4 0.2-1.2 [facility] Fort WorthAspartate Amino Transf (AST/SGOT) 2018-10-31 21:06:00* Test Item Value Reference Range Interpretation Comments Aspartate Amino Transf (AST/SGOT) (test code = Aspartate Amino Transf (AST/SGOT)) 28 5-34 [facility] WorthAlanine Aminotransferase (ALT/SGPT) 2018-10-31 21:06:00* Test Item Value Reference Range Interpretation Comments Alanine Aminotransferase (ALT/SGPT) (test code = 1742-6) 28 0-55 [facility] WorthTotal Uxqdixt9494-04-83 21:06:00* Test Item Value Reference Range Interpretation Comments Total Protein (test code = 2885-2) 7.1 6.5-8.1 [facility] WorthAlbumin2019-09-13 21:06:00* Test Item Value Reference Range Interpretation Comments Albumin (test code = 1751-7) 3.8 3.5-5.0 [facility] WorthGlobulin2019-09-13 21:06:00* Test Item Value Reference Range Interpretation Comments Globulin (test code = 56207-4) 3.3 2.3-3.5 [facility] WorthAlbumin/Globulin Hfsma9059-88-15 21:06:00 * Test Item Value Reference Range Interpretation Comments Albumin/Globulin Ratio (test code = 1759-0) 1.2 0.8-2.0 [facility] WorthAlkaline Wffhdywjkgz2435-96-21 21:06:00* Test Item Value Reference Range Interpretation Comments Alkaline Phosphatase (test code = 6768-6) 106 40-150 [facility] WorthCreatine Podgoi7279-83-82 21:06:00* Test Item Value Reference Range Interpretation Comments Creatine Kinase (test code = 2157-6) 185 30-200 [facility] WorthProthrombin Dmsu0877-82-98 20:56:00* Test Item Value Reference Range Interpretation Comments Prothrombin Time (test code = 5902-2) 12.9 11.9-14.5 [facility] WorthProthromb Time International Ratio 2018-10-31 20:56:00* Test Item Value Reference Range Interpretation Comments Prothromb Time International Ratio (test code = 6301-6) 0.92 Oral Anticoagulant Therapy INR Values:1. Low Intensity Therapy 1.5 - 2.02 . Moderate Intensity Therapy 2.0 - 3.03. High Intensity Therapy(1) 2.5 - 3. 54. High Intensity Therapy(2) 3.0 - 4.05. Panic Value INR > 5.0 [facility] WorthWhite Blood Eakzy8036-62-94 20:53:00* Test Item Value Reference Range Interpretation Comments White Blood Count (test code = 6690-2) 7.42 4.8-10.8 [facility] WorthRed Blood Rgwpz6263-31-95 20:53:00* Test Item Value Reference Range Interpretation Comments Red Blood Count (test code = 789-8) 4.52 4.3-5.7 [facility] WorthHemoglobin2019-09-13 20:53:00* Test Item Value Reference Range Interpretation Comments Hemoglobin (test code = 80113-1) 14.1 14.0-18.0 [facility] WorthHematocrit2019-09-13 20:53:00* Test Item Value Reference Range Interpretation Comments Hematocrit (test code = 4544-3) 40.8 38.2-49.6 [facility] WorthMean Corpuscular Uokjqt2783-42-22 20:53:00* Test Item Value Reference Range Interpretation Comments Mean Corpuscular Volume (test code = 787-2) 90.3 81-99 [facility] WorthMean Corpuscular Fhkrzsychw1928-35-67 20:53:00* Test Item Value Reference Range Interpretation Comments Mean Corpuscular Hemoglobin (test code = 785-6) 31.2 28-32 [facility] Fort WorthMean Corpuscular Hemoglobin Concent 2018-10-31 20:53:00* Test Item Value Reference Range Interpretation Comments Mean Corpuscular Hemoglobin Concent (test code = 786-4) 34.6 31-35 [facility] WorthRed Cell Distribution Oqfve5866-18-75 20:53:00* Test Item Value Reference Range Interpretation Comments Red Cell Distribution Width (test code = 86853-7) 14.8 11.7 -14.4 H [facility] WorthPlatelet Aqkva9358-76-91 20:53:00* Test Item Value Reference Range Interpretation Comments Platelet Count (test code = 777-3) 215 140-360 [facility] WorthNeutrophils (%) (Auto)2018-10-31 20:53:00 * Test Item Value Reference Range Interpretation Comments Neutrophils (%) (Auto) (test code = 01935-6) 65.1 38.7-80.0 [facility] Fort WorthLymphocytes (%) (Auto)2018-10-31 20:53:00 * Test Item Value Reference Range Interpretation Comments Lymphocytes (%) (Auto) (test code = 736-9) 23.7 18.0-39.1 [facility] WorthMonocytes (%) (Auto)2018-10-31 20:53:00* Test Item Value Reference Range Interpretation Comments Monocytes (%) (Auto) (test code = 5905-5) 8.0 4.4-11.3 [facility] WorthEosinophils (%) (Auto)2018-10-31 20:53:00 * Test Item Value Reference Range Interpretation Comments Eosinophils (%) (Auto) (test code = 713-8) 1.1 0.0-6.0 [facility] WorthBasophils (%) (Auto)2018-10-31 20:53:00* Test Item Value Reference Range Interpretation Comments Basophils (%) (Auto) (test code = 706-2) 0.5 0.0-1.0 [facility] Fort WorthIM GRANULOCYTES %2018-10-31 20:53:00* Test Item Value Reference Range Interpretation Comments IM GRANULOCYTES % (test code = IM GRANULOCYTES %) 1.6 0.0- 1.0 H [facility] WorthNeutrophils # (Auto)2018-10-31 20:53:00* Test Item Value Reference Range Interpretation Comments Neutrophils # (Auto) (test code = 751-8) 4.8 2.1-6.9 [facility] WorthLymphocytes # (Auto)2018-10-31 20:53:00* Test Item Value Reference Range Interpretation Comments Lymphocytes # (Auto) (test code = 26258-0) 1.8 1.0-3.2 [facility] WorthMonocytes # (Auto)2018-10-31 20:53:00* Test Item Value Reference Range Interpretation Comments Monocytes # (Auto) (test code = 742-7) 0.6 0.2-0.8 [facility] WorthEosinophils # (Auto)2018-10-31 20:53:00* Test Item Value Reference Range Interpretation Comments Eosinophils # (Auto) (test code = 711-2) 0.1 0.0-0.4 [facility] WorthBasophils # (Auto)2018-10-31 20:53:00* Test Item Value Reference Range Interpretation Comments Basophils # (Auto) (test code = 704-7) 0.0 0.0-0.1 [facility] Fort WorthAbsolute Immature Granulocyte (auto 2018-10-31 20:53:00* Test Item Value Reference Range Interpretation Comments Absolute Immature Granulocyte (auto (shahram t code = Absolute Immature Granulocyte (auto) 0.12 0-0.1 H [facility] WorthCHEST SINGLE (PORTABLE)2018-10-31 20:45:00 [facility] [address] [place] [address] Patient Name: ARANZA LOPEZ MR #: [id number] : 1970 Age/Sex: 48/M Req #: [id number] Adm Physician: Ordered by: KOTA DILL DO Report #: [id number] Location: ER Room/Bed: Procedure: [id number] DX/CHES T SINGLE (PORTABLE) Exam Date: 10/31/18 Exam Time: 1 945 REPORT STATUS: Signed EXAMIN ATION: CHEST SINGLE (PORTABLE) INDICATION: ERMD ORDER [id number] 1945 Y COMPARISON: Chest radiograph 10/24/2018 F [...] 10/31/182045 COPY TO: KOTA DILL DO Sodium Cggct3541-57-54 22:52:00* Test Item Value Reference Range Interpretation Comments Sodium Level (test code = 2951-2) 134 136-145 L [facility] WorthPotassium Onbxy6802-31-32 22:52:00* Test Item Value Reference Range Interpretation Comments Potassium Level (test code = 2823-3) 3.4 3.5-5.1 L [facility] WorthChloride Fnmql7926-42-22 22:52:00* Test Item Value Reference Range Interpretation Comments Chloride Level (test code = 2075-0) 96 98-107 L [facility] Fort WorthCarbon Dioxide Joaof9400-82-40 22:52:00* Test Item Value Reference Range Interpretation Comments Carbon Dioxide Level (test code = 2028-9) 24 -29 [facility] Fort WorthAnion Szy2680-82-09 22:52:00* Test Item Value Reference Range Interpretation Comments Anion Gap (test code = 31200-2) 17.4 8-16 H [facility] WorthBlood Urea Zyfulxdz1041-71-36 22:52:00* Test Item Value Reference Range Interpretation Comments Blood Urea Nitrogen (test code = 3094-0) 21 7- [facility] WorthCreatinine2019-09-11 22:52:00* Test Item Value Reference Range Interpretation Comments Creatinine (test code = 2160-0) 1.54 0.72-1.25 H [facility] WorthBUN/Creatinine Jgykr2262-06-26 22:52:00* Test Item Value Reference Range Interpretation Comments BUN/Creatinine Ratio (test code = 3097-3) 14 08-12 [facility] WorthEstimat Glomerular Filtration Rate 2018-10-29 22:52:00* Test Item Value Reference Range Interpretation Comments Estimat Glomerular Filtration Rate (test code = 477497806) 48 >60 L Ranges were taken from the National Kidney Disease Education Program and the [facility] Kidney Foundation literature.Reference ranges:60 or greater: Zrcbsw25-41 ( for 3 consecutive months): Chronic kidney disease 15 or less: Kidney failureB[facility] WorthGlucose Qfgax5722-21-28 22:52:00* Test Item Value Reference Range Interpretation Comments Glucose Level (test code = PHY5138) 185 74-118 H [facility] WorthCalcium Zwcbm2769-02-35 22:52:00* Test Item Value Reference Range Interpretation Comments Calcium Level (test code = 15617-1) 9.1 8.4-10.2 [facility] WorthTotal Nirqlzxqs1874-98-17 22:52:00* Test Item Value Reference Range Interpretation Comments Total Bilirubin (test code = 1975-2) 0.5 0.2-1.2 [facility] Fort WorthAspartate Amino Transf (AST/SGOT) 2018-10-29 22:52:00* Test Item Value Reference Range Interpretation Comments Aspartate Amino Transf (AST/SGOT) (test code = Aspartate Amino Transf (AST/SGOT)) 19 5-34 [facility] WorthAlanine Aminotransferase (ALT/SGPT) 2018-10-29 22:52:00* Test Item Value Reference Range Interpretation Comments Alanine Aminotransferase (ALT/SGPT) (test code = 1742-6) 27 0-55 [facility] Fort WorthTotal Yfzukmw8794-40-47 22:52:00* Test Item Value Reference Range Interpretation Comments Total Protein (test code = 2885-2) 7.0 6.5-8.1 [facility] WorthAlbumin2019-09-11 22:52:00* Test Item Value Reference Range Interpretation Comments Albumin (test code = 1751-7) 3.8 3.5-5.0 [facility] WorthGlobulin2019-09-11 22:52:00* Test Item Value Reference Range Interpretation Comments Globulin (test code = 54450-5) 3.2 2.3-3.5 [facility] WorthAlbumin/Globulin Vuspd3943-19-37 22:52:00 * Test Item Value Reference Range Interpretation Comments Albumin/Globulin Ratio (test code = 1759-0) 1.2 0.8-2.0 [facility] WorthAlkaline Nlhnofeesat7376-40-09 22:52:00* Test Item Value Reference Range Interpretation Comments Alkaline Phosphatase (test code = 6768-6) 113 40-150 [facility] Fort WorthB-Type Natriuretic Jxnplxe1584-36-51 22:52:00* Test Item Value Reference Range Interpretation Comments B-Type Natriuretic Peptide (test code = 06158-5) 16.7 0-100 [facility] WorthCreatine Wwkbek6869-89-52 22:52:00* Test Item Value Reference Range Interpretation Comments Creatine Kinase (test code = 2157-6) 164 30-200 [facility] WorthCreatine Kinase VL5718-25-22 22:52:00* Test Item Value Reference Range Interpretation Comments Creatine Kinase MB (test code = 98497-6) 1.90 0-5.0 [facility] ArlingtonTropomaria fernanda Q9016-02-91 22:52:00* Test Item Value Reference Range Interpretation Comments Troponin I (test code = AKQ4823) < 0.001 0-0.300 [facility] ArlingtonCHEST SINGLE (PORTABLE)2018-10-29 22:43:00 [facility] [address] [place] [address] Patient Name: ARANZA LOPEZ MR #: [id number] : 1970 Age/Sex: 48/M Req #: [id number] Adm Physician: Ordered by: AZAEL HARMAN MD Report #: [id number] Location: ER Room/Bed: Procedure: [id number] DX/CHEST SINGLE (PORTABLE) Exam Date: 10/29/18 Exam Time: 2215 REPORT STATUS: Signed EXAMINATION: CHEST SINGLE (PORTABLE) [...] Dict ated By: SULEMAN MUÑOZ DO 44 COPY TO: AZAEL FLORENCE MD White Blood Jmtgy8900-75-79 22:27:00* Test Item Value Reference Range Interpretation Comments White Blood Count (test code = 6690-2) 7.64 4.8-10.8 [facility] WorthRed Blood Frrzo1638-15-20 22:27:00* Test Item Value Reference Range Interpretation Comments Red Blood Count (test code = 789-8) 4.53 4.3-5.7 [facility] WorthHemoglobin2019-09-11 22:27:00* Test Item Value Reference Range Interpretation Comments Hemoglobin (test code = 44084-4) 14.1 14.0-18.0 [facility] Fort WorthHematocrit2019-09-11 22:27:00* Test Item Value Reference Range Interpretation Comments Hematocrit (test code = 4544-3) 39.9 38.2-49.6 [facility] WorthMean Corpuscular Sxlbrb5907-38-15 22:27:00* Test Item Value Reference Range Interpretation Comments Mean Corpuscular Volume (test code = 787-2) 88.1 81-99 [facility] WorthMean Corpuscular Zzwftxsrad8893-03-23 22:27:00* Test Item Value Reference Range Interpretation Comments Mean Corpuscular Hemoglobin (test code = 785-6) 31.1 28-32 [facility] WorthMean Corpuscular Hemoglobin Concent 2018-10-29 22:27:00* Test Item Value Reference Range Interpretation Comments Mean Corpuscular Hemoglobin Concent (test code = 786-4) 35.3 31-35 H [facility] WorthRed Cell Distribution Nfajo3771-06-18 22:27:00* Test Item Value Reference Range Interpretation Comments Red Cell Distribution Width (test code = 77669-0) 14.6 11.7 -14.4 H [facility] WorthPlatelet Cbrpl9641-91-12 22:27:00* Test Item Value Reference Range Interpretation Comments Platelet Count (test code = 777-3) 230 140-360 [facility] WorthNeutrophils (%) (Auto)2018-10-29 22:27:00 * Test Item Value Reference Range Interpretation Comments Neutrophils (%) (Auto) (test code = 40115-7) 55.1 38.7-80.0 [facility] WorthLymphocytes (%) (Auto)2018-10-29 22:27:00 * Test Item Value Reference Range Interpretation Comments Lymphocytes (%) (Auto) (test code = 736-9) 32.1 18.0-39.1 [facility] WorthMonocytes (%) (Auto)2018-10-29 22:27:00* Test Item Value Reference Range Interpretation Comments Monocytes (%) (Auto) (test code = 5905-5) 9.3 4.4-11.3 [facility] WorthEosinophils (%) (Auto)2018-10-29 22:27:00 * Test Item Value Reference Range Interpretation Comments Eosinophils (%) (Auto) (test code = 713-8) 1.8 0.0-6.0 [facility] [facility] Worth[facility]ophils (%) (Auto)2018-10-29 22:27:00* Test Item Value Reference Range Interpretation Comments Basophils (%) (Auto) (test code = 706-2) 0.5 0.0-1.0 [facility] WorthIM GRANULOCYTES %2018-10-29 22:27:00* Test Item Value Reference Range Interpretation Comments IM GRANULOCYTES % (test code = IM GRANULOCYTES %) 1.2 0.0- 1.0 H [facility] WorthNeutrophils # (Auto)2018-10-29 22:27:00* Test Item Value Reference Range Interpretation Comments Neutrophils # (Auto) (test code = 751-8) 4.2 2.1-6.9 [facility] WorthLymphocytes # (Auto)2018-10-29 22:27:00* Test Item Value Reference Range Interpretation Comments Lymphocytes # (Auto) (test code = 98655-4) 2.5 1.0-3.2 [facility] WorthMonocytes # (Auto)2018-10-29 22:27:00* Test Item Value Reference Range Interpretation Comments Monocytes # (Auto) (test code = 742-7) 0.7 0.2-0.8 [facility] WorthEosinophils # (Auto)2018-10-29 22:27:00* Test Item Value Reference Range Interpretation Comments Eosinophils # (Auto) (test code = 711-2) 0.1 0.0-0.4 [facility] WorthBasophils # (Auto)2018-10-29 22:27:00* Test Item Value Reference Range Interpretation Comments Basophils # (Auto) (test code = 704-7) 0.0 0.0-0.1 [facility] WorthAbsolute Immature Granulocyte (auto 2018-10-29 22:27:00* Test Item Value Reference Range Interpretation Comments Absolute Immature Granulocyte (auto (shahram t code = Absolute Immature Granulocyte (auto) 0.09 0-0.1 [facility] Uqikhaq0281-43-38 15:14:00* Test Item Value Reference Range Interpretation Comments Bedside Glucose (test code = 04789-6) 250 70-120 H Meter ID: [id number] [facility] Glucose 2018-10-24 15:14:00* Test Item Value Reference Range Interpretation Comments Bedside Glucose (test code = 85043-1) 250 70-120 H Meter ID: [id number] [facility] Glucose 2018-10-24 15:14:00* Test Item Value Reference Range Interpretation Comments Bedside Glucose (test code = 94700-6) 250 70-120 H Meter ID: [id number] [facility] WorthHemoglobin A1c Mjyygiy5796-73-91 08:02:00* Test Item Value Reference Range Interpretation Comments Hemoglobin A1c Percent (test code = Hemoglobin A1c Percent) 7.5 4.0-7.0 H [facility] WorthHemoglobin A1c Ewdbjdc4035-32-03 08:02:00 * Test Item Value Reference Range Interpretation Comments Hemoglobin A1c Percent (test code = Hemoglobin A1c Percent) 7.5 4.0-7.0 H [facility] WorthHemoglobin A1c Kiooszr6124-58-09 08:02:00 * Test Item Value Reference Range Interpretation Comments Hemoglobin A1c Percent (test code = Hemoglobin A1c Percent) 7.5 4.0-7.0 [facility] Riptt8635-82-33 07:38:00* Test Item Value Reference Range Interpretation Comments Sodium Level (test code = 2951-2) 132 136-145 L [facility] WorthPotassium Zifgp3889-04-15 07:38:00* Test Item Value Reference Range Interpretation Comments Potassium Level (test code = 2823-3) 3.7 3.5-5.1 [facility] WorthChloride Jisgf9497-42-36 07:38:00* Test Item Value Reference Range Interpretation Comments Chloride Level (test code = 2075-0) 97 98-107 L [facility] WorthCarbon Dioxide Loklg5667-13-52 07:38:00* Test Item Value Reference Range Interpretation Comments Carbon Dioxide Level (test code = 2028-9) 24 22-29 [facility] WorthAnion Eew2444-72-94 07:38:00* Test Item Value Reference Range Interpretation Comments Anion Gap (test code = 69308-5) 14.7 8-16 [facility] WorthBlood Urea Vaxnhfys1225-78-38 07:38:00* Test Item Value Reference Range Interpretation Comments Blood Urea Nitrogen (test code = 3094-0) 15 7-26 [facility] WorthCreatinine2019-09-06 07:38:00* Test Item Value Reference Range Interpretation Comments Creatinine (test code = 2160-0) 1.12 0.72-1.25 [facility] WorthBUN/Creatinine Pbipw6979-40-87 07:38:00* Test Item Value Reference Range Interpretation Comments BUN/Creatinine Ratio (test code = 3097-3) 13 6-25 [facility] WorthEstimat Glomerular Filtration Rate 2018-10-24 07:38:00* Test Item Value Reference Range Interpretation Comments Estimat Glomerular Filtration Rate (test code = 952528788) > 60 >60 Ranges were taken from the National Kidney Disease Education Program and the [facility] literature.Reference ranges:60 or greater: Gaeasb26-92 ( for 3 consecutive months): Chronic kidney disease 15 or less: Kidney failureBaylor Scott & [facility] WorthGlucose Esevs2015-94-01 07:38:00* Test Item Value Reference Range Interpretation Comments Glucose Level (test code = MQG5316) 201 74-118 H [facility] WorthCalcium Occic1036-33-69 07:38:00* Test Item Value Reference Range Interpretation Comments Calcium Level (test code = 95592-3) 9.4 8.4-10.2 [facility] WorthWhite Blood Zpfct3679-21-61 07:33:00* Test Item Value Reference Range Interpretation Comments White Blood Count (test code = 6690-2) 6.57 4.8-10.8 [facility] WorthRed Blood Jowtb3187-61-81 07:33:00* Test Item Value Reference Range Interpretation Comments Red Blood Count (test code = 789-8) 4.25 4.3-5.7 L [facility] WorthHemoglobin2019-09-06 07:33:00* Test Item Value Reference Range Interpretation Comments Hemoglobin (test code = 12561-2) 13.2 14.0-18.0 L [facility] WorthHematocrit2019-09-06 07:33:00* Test Item Value Reference Range Interpretation Comments Hematocrit (test code = 4544-3) 38.6 38.2-49.6 [facility] WorthMean Corpuscular Yfabmj3514-43-94 07:33:00* Test Item Value Reference Range Interpretation Comments Mean Corpuscular Volume (test code = 787-2) 90.8 81-99 [facility] WorthMean Corpuscular Jpaupdfbac2665-44-95 07:33:00* Test Item Value Reference Range Interpretation Comments Mean Corpuscular Hemoglobin (test code = 785-6) 31.1 28-32 [facility] WorthMean Corpuscular Hemoglobin Concent 2018-10-24 07:33:00* Test Item Value Reference Range Interpretation Comments Mean Corpuscular Hemoglobin Concent (test code = 786-4) 34.2 31-35 [facility] WorthRed Cell Distribution Flbfh1575-86-78 07:33:00* Test Item Value Reference Range Interpretation Comments Red Cell Distribution Width (test code = 62478-3) 15.2 11.7 -14.4 H [facility] WorthPlatelet Dnucc6848-95-43 07:33:00* Test Item Value Reference Range Interpretation Comments Platelet Count (test code = 777-3) 192 140-360 [facility] WorthNeutrophils (%) (Auto)2018-10-24 07:33:00 * Test Item Value Reference Range Interpretation Comments Neutrophils (%) (Auto) (test code = 85417-9) 70.9 38.7-80.0 [facility] WorthLymphocytes (%) (Auto)2018-10-24 07:33:00 * Test Item Value Reference Range Interpretation Comments Lymphocytes (%) (Auto) (test code = 736-9) 17.0 18.0-39.1 L [facility] WorthMonocytes (%) (Auto)2018-10-24 07:33:00* Test Item Value Reference Range Interpretation Comments Monocytes (%) (Auto) (test code = 5905-5) 8.7 4.4-11.3 [facility] WorthEosinophils (%) (Auto)2018-10-24 07:33:00 * Test Item Value Reference Range Interpretation Comments Eosinophils (%) (Auto) (test code = 713-8) 2.3 0.0-6.0 [facility] WorthBasophils (%) (Auto)2018-10-24 07:33:00* Test Item Value Reference Range Interpretation Comments Basophils (%) (Auto) (test code = 706-2) 0.3 0.0-1.0 [facility] WorthIM GRANULOCYTES %2018-10-24 07:33:00* Test Item Value Reference Range Interpretation Comments IM GRANULOCYTES % (test code = IM GRANULOCYTES %) 0.8 0.0- 1.0 [facility] WorthNeutrophils # (Auto)2018-10-24 07:33:00* Test Item Value Reference Range Interpretation Comments Neutrophils # (Auto) (test code = 751-8) 4.7 2.1-6.9 [facility] WorthLymphocytes # (Auto)2018-10-24 07:33:00* Test Item Value Reference Range Interpretation Comments Lymphocytes # (Auto) (test code = 82397-0) 1.1 1.0-3.2 [facility] WorthMonocytes # (Auto)2018-10-24 07:33:00* Test Item Value Reference Range Interpretation Comments Monocytes # (Auto) (test code = 742-7) 0.6 0.2-0.8 [facility] WorthEosinophils # (Auto)2018-10-24 07:33:00* Test Item Value Reference Range Interpretation Comments Eosinophils # (Auto) (test code = 711-2) 0.2 0.0-0.4 [facility] WorthBasophils # (Auto)2018-10-24 07:33:00* Test Item Value Reference Range Interpretation Comments Basophils # (Auto) (test code = 704-7) 0.0 0.0-0.1 [facility] WorthAbsolute Immature Granulocyte (auto 2018-10-24 07:33:00* Test Item Value Reference Range Interpretation Comments Absolute Immature Granulocyte (auto (shahram t code = Absolute Immature Granulocyte (auto) 0.05 0-0.1 [facility] WorthTriglycerides Qzbou1699-76-28 07:02:00* Test Item Value Reference Range Interpretation Comments Triglycerides Level (test code = 2571-8) 344 0-149 H [facility] WorthCholesterol Trudb1637-36-33 07:02:00* Test Item Value Reference Range Interpretation Comments Cholesterol Level (test code = 2093-3) 163 0-199 Less than 200 mg/dL Low Ykhr333 - 239 mg/dL Borderline Xsjs430 m g/dl and greater High Risk [facility] WorthLDL Mjuqqxerayv2041-95-75 07:02:00* Test Item Value Reference Range Interpretation Comments LDL Cholesterol (test code = 2089-1) 66 60-130 [facility] Ptujwqsaczo2948-45-10 07:02:00* Test Item Value Reference Range Interpretation Comments HDL Cholesterol (test code = 2085-9) 28 40-60 L [facility] WorthCholesterol/HDL Fgmzy6039-64-39 07:02:00 * Test Item Value Reference Range Interpretation Comments Cholesterol/HDL Ratio (test code = 9830-1) 5.8 3.9-4.7 H [facility] WorthTriglycerides Zustf9763-07-79 07:02:00* Test Item Value Reference Range Interpretation Comments Triglycerides Level (test code = 2571-8) 344 0-149 H [facility] WorthCholesterol Fkswz3093-30-69 07:02:00* Test Item Value Reference Range Interpretation Comments Cholesterol Level (test code = 2093-3) 163 0-199 Less than 200 mg/dL Low Vibe926 - 239 mg/dL Borderline Ufcs976 m g/dl and greater High Risk [facility] WorthLDL Cjaehydsxpy5340-36-24 07:02:00* Test Item Value Reference Range Interpretation Comments LDL Cholesterol (test code = 2089-1) 66 60-130 [facility] Rmrgvrwfmmg1233-65-51 07:02:00* Test Item Value Reference Range Interpretation Comments HDL Cholesterol (test code = 2085-9) 28 40-60 L [facility] WorthCholesterol/HDL Qfjwl2158-02-23 07:02:00 * Test Item Value Reference Range Interpretation Comments Cholesterol/HDL Ratio (test code = 9830-1) 5.8 3.9-4.7 H [facility] WorthTriglycerides Hfyte6858-58-74 07:02:00* Test Item Value Reference Range Interpretation Comments Triglycerides Level (test code = 2571-8) 344 0-149 H [facility] WorthCholesterol Uzvat5983-06-20 07:02:00* Test Item Value Reference Range Interpretation Comments Cholesterol Level (test code = 2093-3) 163 0-199 Less than 200 mg/dL Low Sxvj831 - 239 mg/dL Borderline Iadk627 m g/dl and greater High Risk [facility] WorthLDL Vshudhilxzt8484-78-59 07:02:00* Test Item Value Reference Range Interpretation Comments LDL Cholesterol (test code = 2089-1) 66 60-130 [facility] WorthHDL Oozyvhwkvtm6621-47-98 07:02:00* Test Item Value Reference Range Interpretation Comments HDL Cholesterol (test code = 2085-9) 28 40-60 L [facility] WorthCholesterol/HDL Xzksb8387-45-94 07:02:00 * Test Item Value Reference Range Interpretation Comments Cholesterol/HDL Ratio (test code = 9830-1) 5.8 3.9-4.7 H [facility] WorthCHEST SINGLE (PORTABLE)2018-10-24 06:18:00 [place] [address] Patient Name: ARANZA LOPEZ MR #: [id number] : 1970 Age/Sex: 48/M Req #: [id number] Adm Physician: JARRET ALEXIS MD Ordered by: JARRET ALEXIS MD Report #: [id number] Location: [facility] Room/Bed: [facility] Procedure: [id number] DX/CH EST SINGLE (PORTABLE) Exam Date: 10/24/18 Exam Time: 0535 REPORT STATUS: Signed EXAM INATION: CHEST SINGLE (PORTABLE) COMPARISON: Chest x-ray 10/22/2018, CTA chest 10/23/2018 INDICATION: wheezing [id number] Y D ISCUSSION: Frontal view of [...] MD on 10/24/18620 Transcribed By: ADALBERTO on 10/24/18620 COPY TO: JARRET ALEXIS MD CTA FJWPI8180-44-49 18:15:00 [place] [address] Patient Name: ARNAZA LOPEZ MR #: [id number] : 1970 Age/Sex: 48/M Req #: [id number] Adm Physician: JARRET ALEXIS MD Ordered by: ROBER ROLON DO Report #: [id number] Location: [facility] Room/Bed: [facility] Procedure: CT/ CTA CHEST Exam Date: 10/23/18 [...] COPY TO: ROBER ROLON DO Creatine Kinase YA9087-54-78 14:27:00 * Test Item Value Reference Range Interpretation Comments Creatine Kinase MB (test code = 63158-4) 1.40 0-5.0 [facility] WorthTroponin B7668-71-86 14:27:00* Test Item Value Reference Range Interpretation Comments Troponin I (test code = DYH1490) 0.007 0-0.300 [facility] WorthCreatine Rtexpg5785-23-91 14:06:00* Test Item Value Reference Range Interpretation Comments Creatine Kinase (test code = 2157-6) 168 30-200 [facility] WorthPhosphorus Dpfwn1892-80-47 06:31:00* Test Item Value Reference Range Interpretation Comments Phosphorus Level (test code = TRP4598) 4.4 2.3-4.7 [facility] WorthMagnesium Jgnli0741-11-07 06:31:00* Test Item Value Reference Range Interpretation Comments Magnesium Level (test code = 01771-7) 2.0 1.3-2.1 [facility] WorthTotal Ckgbcvmho2444-09-25 06:31:00* Test Item Value Reference Range Interpretation Comments Total Bilirubin (test code = 1975-2) 0.5 0.2-1.2 [facility] WorthAspartate Amino Transf (AST/SGOT) 2018-10-23 06:31:00* Test Item Value Reference Range Interpretation Comments Aspartate Amino Transf (AST/SGOT) (test code = Aspartate Amino Transf (AST/SGOT)) 15 5-34 [facility] WorthAlanine Aminotransferase (ALT/SGPT) 2018-10-23 06:31:00* Test Item Value Reference Range Interpretation Comments Alanine Aminotransferase (ALT/SGPT) (test code = 1742-6) 17 0-55 [facility] WorthTotal Knivkrn4115-35-00 06:31:00* Test Item Value Reference Range Interpretation Comments Total Protein (test code = 2885-2) 5.9 6.5-8.1 L [facility] WorthAlbumin2019-09-05 06:31:00* Test Item Value Reference Range Interpretation Comments Albumin (test code = 1751-7) 3.2 3.5-5.0 L [facility] WorthGlobulin2019-09-05 06:31:00* Test Item Value Reference Range Interpretation Comments Globulin (test code = 34509-6) 2.7 2.3-3.5 [facility] WorthAlbumin/Globulin Ssseh6909-13-93 06:31:00 * Test Item Value Reference Range Interpretation Comments Albumin/Globulin Ratio (test code = 1759-0) 1.2 0.8-2.0 [facility] WorthAlkaline Mkbiwcacthd6041-72-74 06:31:00* Test Item Value Reference Range Interpretation Comments Alkaline Phosphatase (test code = 6768-6) 83 40-150 [facility] WorthPhosphorus Wvypr7957-68-00 06:31:00* Test Item Value Reference Range Interpretation Comments Phosphorus Level (test code = PVL3645) 4.4 2.3-4.7 [facility] WorthMagnesium Epvfw4785-34-63 06:31:00* Test Item Value Reference Range Interpretation Comments Magnesium Level (test code = 42160-0) 2.0 1.3-2.1 [facility] WorthPhosphorus Uqewz0400-13-87 06:31:00* Test Item Value Reference Range Interpretation Comments Phosphorus Level (test code = XJM6765) 4.4 2.3-4.7 [facility] Pasognesium Esjbo3924-79-84 06:31:00* Test Item Value Reference Range Interpretation Comments Magnesium Level (test code = 60653-6) 2.0 1.3-2.1 [facility] RLK9935-32-56 21:27:00* Test Item Value Reference Range Interpretation Comments Urine WBC (test code = 5821-4) 0-5 0-5 [facility] VIQ3291-77-68 21:27:00* Test Item Value Reference Range Interpretation Comments Urine RBC (test code = 50041-0) NONE 0-5 [facility] WorthUrine Fyfhdhei5801-20-73 21:27:00* Test Item Value Reference Range Interpretation Comments Urine Bacteria (test code = 52323-8) NONE NONE [facility] WorthUrine Epithelial Qdkgj1156-39-82 21:27:00 * Test Item Value Reference Range Interpretation Comments Urine Epithelial Cells (test code = 54358-2) NONE NONE [facility] WorthUrine JQJ1634-73-32 21:27:00* Test Item Value Reference Range Interpretation Comments Urine WBC (test code = 5821-4) 0-5 0-5 [facility] SNE3614-31-73 21:27:00* Test Item Value Reference Range Interpretation Comments Urine RBC (test code = 95085-3) NONE 0-5 [facility] Nezfqmoo8500-16-34 21:27:00* Test Item Value Reference Range Interpretation Comments Urine Bacteria (test code = 72769-6) NONE NONE [facility] WorthUrine Epithelial Jvqkf7897-20-00 21:27:00 * Test Item Value Reference Range Interpretation Comments Urine Epithelial Cells (test code = 95277-3) NONE NONE [facility] WorthUrine XGK5264-61-68 21:27:00* Test Item Value Reference Range Interpretation Comments Urine WBC (test code = 5821-4) 0-5 0-5 [facility] WorthUrine ADT4395-67-97 21:27:00* Test Item Value Reference Range Interpretation Comments Urine RBC (test code = 68918-6) NONE 0-5 [facility] WorthUrine Jqqlwpbc2648-57-99 21:27:00* Test Item Value Reference Range Interpretation Comments Urine Bacteria (test code = 58174-3) NONE NONE [facility] WorthUrine Epithelial Ldgwn1780-70-61 21:27:00 * Test Item Value Reference Range Interpretation Comments Urine Epithelial Cells (test code = 04713-7) NONE NONE [facility] WorthUrine Opiates Huoyak7291-07-87 21:20:00* Test Item Value Reference Range Interpretation Comments Urine Opiates Screen (test code = 18024-6) POSITIVE NEGATIVE H ALL TESTS PERFORMED MANUALLY ON Axial TOX/SEE TEST This test provides only a sc reen. Positive results should be repeated by a confirmatory test.[facility] WorthUrine Barbiturates Wustlf5942-97-88 21:20:00* Test Item Value Reference Range Interpretation Comments Urine Barbiturates Screen (test code = 424032164) NEGATIVE NEGA TIVE [facility] WorthUrine Phencyclidine Zteloe5777-62-09 21:20:00* Test Item Value Reference Range Interpretation Comments Urine Phencyclidine Screen (test code = 89587-2) NEGATIVE NEGAT DEVONTE [facility] WorthUrine Amphetamines Hhuzqf3316-46-80 21:20:00* Test Item Value Reference Range Interpretation Comments Urine Amphetamines Screen (test code = 41657-7) NEGATIVE NEGATI VE [facility] WorthUrine Methamphetamines Qzmomj7817-08-91 21:20:00* Test Item Value Reference Range Interpretation Comments Urine Methamphetamines Screen (test code = Urine Metha mphetamines Screen) NEGATIVE NEGATIVE [facility] WorthUrine Benzodiazepines Tuvwrd2985-65-67 21:20:00* Test Item Value Reference Range Interpretation Comments Urine Benzodiazepines Screen (test code = 66930-0) NEGATIVE NEG ATIVE [facility] WorthUrine Cocaine Aogmqg2970-57-23 21:20:00* Test Item Value Reference Range Interpretation Comments Urine Cocaine Screen (test code = 3398-5) NEGATIVE NEGATIVE [facility] WorthUrine Cannabinoids Qqlelt9255-40-35 21:20:00* Test Item Value Reference Range Interpretation Comments Urine Cannabinoids Screen (test code = 73162-2) NEGATIVE NEGATI VE THESE RESULTS ARE FOR MEDICAL TREATMENT ONLYTHIS REPORT CONTAINS UNCONFIR MED SCREENING RESULTS*POSITIVE RESULTS WILL BE CONFIRMED BY REFERENCE LAB UPON R EQUEST CUT-OFFDRUG CLASS CONCENTRATION ng/mLAmphetamines 1000Methamphetamines 1000Cocaine 300Opiate 300Phencyc lidine 25Cannabinoid 50Barbiturates 300Benzodiazepine 300Methadone 300[facility] ArlingtonUrine Methadone Yflhmr7863-21-79 21:20:00* Test Item Value Reference Range Interpretation Comments Urine Methadone Screen (test code = 30656-4) NEGATIVE NEGATIVE THESE RESULTS ARE FOR MEDICAL TREATMENT ONLYTHIS REPORT CONTAINS UNCONFIR MED SCREENING RESULTS*POSITIVE RESULTS WILL BE CONFIRMED BY REFERENCE LAB UPON R EQUEST CUT-OFFDRUG CLASS CONCENTRATION ng/mLAmphetamines 1000Methamphetamines 1000Cocaine Metabolite 300Opiate 300Phencyc lidine 25Cannabinoid 50Barbiturates 300Benzodiazepine 300Methadone 300[facility] ArlingtonUrine Opiates Shfwcb9854-09-23 21:20:00* Test Item Value Reference Range Interpretation Comments Urine Opiates Screen (test code = 17074-7) POSITIVE NEGATIVE H ALL TESTS PERFORMED MANUALLY ON Axial TOX/SEE TEST This test provides only a sc reen. Positive results should be repeated by a confirmatory test.[facility] WorthUrine Barbiturates Ngyrug8508-73-48 21:20:00* Test Item Value Reference Range Interpretation Comments Urine Barbiturates Screen (test code = 393443036) NEGATIVE NEGA TIVE [facility] WorthUrine Phencyclidine Pukkps4617-01-56 21:20:00* Test Item Value Reference Range Interpretation Comments Urine Phencyclidine Screen (test code = 13400-6) NEGATIVE NEGAT DEVONTE [facility] WorthUrine Amphetamines Hjusih6993-43-35 21:20:00* Test Item Value Reference Range Interpretation Comments Urine Amphetamines Screen (test code = 93067-7) NEGATIVE NEGATI VE [facility] WorthUrine Methamphetamines Votzpq5977-14-74 21:20:00* Test Item Value Reference Range Interpretation Comments Urine Methamphetamines Screen (test code = Urine Metha mphetamines Screen) NEGATIVE NEGATIVE [facility] Benzodiazepines Hmcijz1928-02-51 21:20:00* Test Item Value Reference Range Interpretation Comments Urine Benzodiazepines Screen (test code = 21839-9) NEGATIVE NEG ATIVE [facility] Worth[facility] Cocaine Ufpotk8542-51-80 21:20:00* Test Item Value Reference Range Interpretation Comments Urine Cocaine Screen (test code = 3398-5) NEGATIVE NEGATIVE [facility] Worth[facility] Cannabinoids Euszzf0856-70-51 21:20:00* Test Item Value Reference Range Interpretation Comments Urine Cannabinoids Screen (test code = 38751-9) NEGATIVE NEGATI VE THESE RESULTS ARE FOR MEDICAL TREATMENT ONLYTHIS REPORT CONTAINS UNCONFIR MED SCREENING RESULTS*POSITIVE RESULTS WILL BE CONFIRMED BY REFERENCE LAB UPON R EQUEST CUT-OFFDRUG CLASS CONCENTRATION ng/mLAmphetamines 1000Methamphetamines 1000Cocaine 300Opiate 300Phencyc lidine 25Cannabinoid 50Barbiturates 300Benzodiazepine 300Methadone 300[facility] Worth[facility] Methadone Lwxuoe3812-03-76 21:20:00* Test Item Value Reference Range Interpretation Comments Urine Methadone Screen (test code = 19559-1) NEGATIVE NEGATIVE THESE RESULTS ARE FOR MEDICAL TREATMENT ONLYTHIS REPORT CONTAINS UNCONFIR MED SCREENING RESULTS*POSITIVE RESULTS WILL BE CONFIRMED BY REFERENCE LAB UPON R EQUEST CUT-OFFDRUG CLASS CONCENTRATION ng/mLAmphetamines 1000Methamphetamines 1000Cocaine Metabolite 300Opiate 300Phencyc lidine 25Cannabinoid 50Barbiturates 300Benzodiazepine 300Methadone 300[facility] Worth[facility] Opiates Othaet0062-02-05 21:20:00* Test Item Value Reference Range Interpretation Comments Urine Opiates Screen (test code = 28546-7) POSITIVE NEGATIVE H ALL TESTS PERFORMED MANUALLY ON BIORAD TOX/SEE TEST This test provides only a sc reen. Positive results should be repeated by a confirmatory test.[facility] Worth[facility] Barbiturates Dhchwg0867-03-87 21:20:00* Test Item Value Reference Range Interpretation Comments Urine Barbiturates Screen (test code = 960316522) NEGATIVE NEGA TIVE [facility] Phencyclidine Qhtcyz0837-82-18 21:20:00* Test Item Value Reference Range Interpretation Comments Urine Phencyclidine Screen (test code = 66521-0) NEGATIVE NEGAT DEVONTE [facility] Worth[facility] Amphetamines Ekhike4394-23-09 21:20:00* Test Item Value Reference Range Interpretation Comments Urine Amphetamines Screen (test code = 78482-1) NEGATIVE NEGATI VE [facility] Worth[facility] Methamphetamines Wbcbws3957-45-11 21:20:00* Test Item Value Reference Range Interpretation Comments Urine Methamphetamines Screen (test code = Urine Metha mphetamines Screen) NEGATIVE NEGATIVE [facility] Worth[facility] Benzodiazepines Kpsvwt0152-63-79 21:20:00* Test Item Value Reference Range Interpretation Comments Urine Benzodiazepines Screen (test code = 68312-7) NEGATIVE NEG ATIVE [facility] Cocaine Mqgvbn4622-29-74 21:20:00* Test Item Value Reference Range Interpretation Comments Urine Cocaine Screen (test code = 3398-5) NEGATIVE NEGATIVE [facility] Worth[facility] Cannabinoids Rnepjy8203-81-25 21:20:00* Test Item Value Reference Range Interpretation Comments Urine Cannabinoids Screen (test code = 23581-8) NEGATIVE NEGATI VE THESE RESULTS ARE FOR MEDICAL TREATMENT ONLYTHIS REPORT CONTAINS UNCONFIR MED SCREENING RESULTS*POSITIVE RESULTS WILL BE CONFIRMED BY REFERENCE LAB UPON R EQUEST CUT-OFFDRUG CLASS CONCENTRATION ng/mLAmphetamines 1000Methamphetamines 1000Cocaine 300Opiate 300Phencyc lidine 25Cannabinoid 50Barbiturates 300Benzodiazepine 300Methadone 300[facility] Worth[facility] Methadone Ddadyq8290-78-40 21:20:00* Test Item Value Reference Range Interpretation Comments Urine Methadone Screen (test code = 65054-4) NEGATIVE NEGATIVE THESE RESULTS ARE FOR MEDICAL TREATMENT ONLYTHIS REPORT CONTAINS UNCONFIR MED SCREENING RESULTS*POSITIVE RESULTS WILL BE CONFIRMED BY REFERENCE LAB UPON R EQUEST CUT-OFFDRUG CLASS CONCENTRATION ng/mLAmphetamines 1000Methamphetamines 1000Cocaine Metabolite 300Opiate 300Phencyc lidine 25Cannabinoid 50Barbiturates 300Benzodiazepine 300Methadone 300[facility] Worth[facility] Gmjpu9324-42-98 21:17:00* Test Item Value Reference Range Interpretation Comments Urine Color (test code = 5778-6) YELLOW YELLOW [facility] Worth[facility] Pawzpju4118-51-95 21:17:00* Test Item Value Reference Range Interpretation Comments Urine Clarity (test code = 40499-3) CLEAR CLEAR [facility] Worth[facility] Specific Utfifqd6437-78-49 21:17:00 * Test Item Value Reference Range Interpretation Comments Urine Specific [place] (test code = 5811-5) 1.010 1.010-1.02 5 [facility] [id number] 21:17:00* Test Item Value Reference Range Interpretation Comments Urine pH (test code = 70566-6) 6 5-7 [facility] Leukocyte Dbparxnv1697-14-06 21:17:00* Test Item Value Reference Range Interpretation Comments Urine Leukocyte Esterase (test code = 89429-3) NEGATIVE NEGATIV E [facility] Hdscqtf8063-87-45 21:17:00* Test Item Value Reference Range Interpretation Comments Urine Nitrite (test code = 19341-0) NEGATIVE NEGATIVE [facility] Gzjclza6205-96-56 21:17:00* Test Item Value Reference Range Interpretation Comments Urine Protein (test code = 36254-3) NEGATIVE NEGATIVE [facility] Glucose (UA)2018-10-22 21:17:00* Test Item Value Reference Range Interpretation Comments Urine Glucose (UA) (test code = 88843-0) 3+ NEGATIVE [facility] Ntvyiav8597-62-60 21:17:00* Test Item Value Reference Range Interpretation Comments Urine Ketones (test code = 64078-2) NEGATIVE NEGATIVE [facility] Soxiafdytuhm4316-76-16 21:17:00* Test Item Value Reference Range Interpretation Comments Urine Urobilinogen (test code = 84718-8) 0.2 0.2-1 [facility] Worth[facility] Bmcouvwjl9856-40-17 21:17:00* Test Item Value Reference Range Interpretation Comments Urine Bilirubin (test code = 1977-8) NEGATIVE NEGATIVE [facility] Worth[facility] Ivdro2872-31-51 21:17:00* Test Item Value Reference Range Interpretation Comments Urine Blood (test code = 09276-4) NEGATIVE NEGATIVE [facility] Ructq9478-09-00 21:17:00* Test Item Value Reference Range Interpretation Comments Urine Color (test code = 5778-6) YELLOW YELLOW [facility] Lqjgcaq2909-51-28 21:17:00* Test Item Value Reference Range Interpretation Comments Urine Clarity (test code = 39705-6) CLEAR CLEAR [facility] Worth[facility] Specific Xjcaacu8665-75-30 21:17:00 * Test Item Value Reference Range Interpretation Comments Urine Specific [place] (test code = 5811-5) 1.010 1.010-1.02 5 [facility] [id number] 21:17:00* Test Item Value Reference Range Interpretation Comments Urine pH (test code = 02303-5) 6 5-7 [facility] Leukocyte Wmhzemgg0321-22-75 21:17:00* Test Item Value Reference Range Interpretation Comments Urine Leukocyte Esterase (test code = 87583-8) NEGATIVE NEGATIV E [facility] Qutcbqb0088-84-33 21:17:00* Test Item Value Reference Range Interpretation Comments Urine Nitrite (test code = 83322-6) NEGATIVE NEGATIVE [facility] Qfuypme1200-18-62 21:17:00* Test Item Value Reference Range Interpretation Comments Urine Protein (test code = 41129-0) NEGATIVE NEGATIVE [facility] Worth[facility] Glucose (UA)2018-10-22 21:17:00* Test Item Value Reference Range Interpretation Comments Urine Glucose (UA) (test code = 27791-9) 3+ NEGATIVE [facility] Jtzmoxg9806-61-06 21:17:00* Test Item Value Reference Range Interpretation Comments Urine Ketones (test code = 16891-7) NEGATIVE NEGATIVE [facility] Uimroogarxpt6402-51-16 21:17:00* Test Item Value Reference Range Interpretation Comments Urine Urobilinogen (test code = 09356-3) 0.2 0.2-1 [facility] Mwbdagois9921-20-75 21:17:00* Test Item Value Reference Range Interpretation Comments Urine Bilirubin (test code = 1977-8) NEGATIVE NEGATIVE [facility] Glywl7006-24-95 21:17:00* Test Item Value Reference Range Interpretation Comments Urine Blood (test code = 87388-7) NEGATIVE NEGATIVE [facility] Nurgk2169-31-44 21:17:00* Test Item Value Reference Range Interpretation Comments Urine Color (test code = 5778-6) YELLOW YELLOW [facility] Worth[facility] Jdnpram6280-84-92 21:17:00* Test Item Value Reference Range Interpretation Comments Urine Clarity (test code = 48318-7) CLEAR CLEAR [facility] Worth[facility] Specific Qtqkxuo5968-33-52 21:17:00 * Test Item Value Reference Range Interpretation Comments Urine Specific [place] (test code = 5811-5) 1.010 1.010-1.02 5 [facility] kO8719-39-52 21:17:00* Test Item Value Reference Range Interpretation Comments Urine pH (test code = 96041-0) 6 5-7 [facility] Leukocyte Zcitvmcn7319-33-91 21:17:00* Test Item Value Reference Range Interpretation Comments Urine Leukocyte Esterase (test code = 79735-2) NEGATIVE NEGATIV E [facility] Pprooph4156-93-68 21:17:00* Test Item Value Reference Range Interpretation Comments Urine Nitrite (test code = 29246-0) NEGATIVE NEGATIVE [facility] Ylmumes3441-19-95 21:17:00* Test Item Value Reference Range Interpretation Comments Urine Protein (test code = 19704-4) NEGATIVE NEGATIVE [facility] Worth[facility] Glucose (UA)2018-10-22 21:17:00* Test Item Value Reference Range Interpretation Comments Urine Glucose (UA) (test code = 69326-6) 3+ NEGATIVE [facility] Pxplsot5569-91-89 21:17:00* Test Item Value Reference Range Interpretation Comments Urine Ketones (test code = 05227-3) NEGATIVE NEGATIVE [facility] Iarmjlergdzu4935-21-71 21:17:00* Test Item Value Reference Range Interpretation Comments Urine Urobilinogen (test code = 35579-9) 0.2 0.2-1 [facility] Ljqtlzake7345-14-40 21:17:00* Test Item Value Reference Range Interpretation Comments Urine Bilirubin (test code = 1977-8) NEGATIVE NEGATIVE [facility] Koner9589-49-09 21:17:00* Test Item Value Reference Range Interpretation Comments Urine Blood (test code = 15679-1) NEGATIVE NEGATIVE [facility] WorthThyroid Stimulating Hormone (TSH) 2018-10-22 20:49:00* Test Item Value Reference Range Interpretation Comments Thyroid Stimulating Hormone (TSH) (test code = 23281-5) 1.497 0.350-4.940 [facility] WorthThyroid Stimulating Hormone (TSH) 2018-10-22 20:49:00* Test Item Value Reference Range Interpretation Comments Thyroid Stimulating Hormone (TSH) (test code = 22649-1) 1.497 0.350-4.940 [facility] Worth[facility]yroid Stimulating Hormone (TSH) 2018-10-22 20:49:00* Test Item Value Reference Range Interpretation Comments Thyroid Stimulating Hormone (TSH) (test code = 47895-8) 1.497 0.350-4.940 [facility] WorthB-Type Natriuretic Jpfiyns8032-48-93 20:32:00* Test Item Value Reference Range Interpretation Comments B-Type Natriuretic Peptide (test code = 06821-1) 32.2 0-100 [facility] WorthLipase2019-09-04 20:27:00* Test Item Value Reference Range Interpretation Comments Lipase (test code = 3040-3) [facility] Worth[facility]ase2019-09-04 20:27:00* Test Item Value Reference Range Interpretation Comments Lipase (test code = 3040-3) [facility] Worth[facility]ase2019-09-04 20:27:00* Test Item Value Reference Range Interpretation Comments Lipase (test code = 3040-3) [facility] WorthProthrombin Qvhe1873-97-81 20:20:00* Test Item Value Reference Range Interpretation Comments Prothrombin Time (test code = 5902-2) 12.7 11.9-14.5 [facility] WorthProthromb Time International Ratio 2018-10-22 20:20:00* Test Item Value Reference Range Interpretation Comments Prothromb Time International Ratio (test code = 6301-6) 0.91 Oral Anticoagulant Therapy INR Values:1. Low Intensity Therapy 1.5 - 2.02 . Moderate Intensity Therapy 2.0 - 3.03. High Intensity Therapy(1) 2.5 - 3. 54. High Intensity Therapy(2) 3.0 - 4.05. Panic Value INR > 5.0 [facility] WorthActivated Partial Thromboplast Time 2018-10-22 20:20:00* Test Item Value Reference Range Interpretation Comments Activated Partial Thromboplast Time (test code = 25868-3) 27.2 23.8-35.5 [facility] WorthProthrombin Celr4856-57-44 20:20:00* Test Item Value Reference Range Interpretation Comments Prothrombin Time (test code = 5902-2) 12.7 11.9-14.5 [facility] WorthProthromb Time International Ratio 2018-10-22 20:20:00* Test Item Value Reference Range Interpretation Comments Prothromb Time International Ratio (test code = 6301-6) 0.91 Oral Anticoagulant Therapy INR Values:1. Low Intensity Therapy 1.5 - 2.02 . Moderate Intensity Therapy 2.0 - 3.03. High Intensity Therapy(1) 2.5 - 3. 54. High Intensity Therapy(2) 3.0 - 4.05. Panic Value INR > 5.0 [facility] WorthAct[facility] Partial Thromboplast Time 2018-10-22 20:20:00* Test Item Value Reference Range Interpretation Comments Activated Partial Thromboplast Time (test code = 62072-1) 27.2 23.8-35.5 [facility] WorthAct[facility] Partial Thromboplast Time 2018-10-22 20:20:00* Test Item Value Reference Range Interpretation Comments Activated Partial Thromboplast Time (test code = 23267-4) 27.2 23.8-35.5 [facility] WorthCHEST SINGLE (PORTABLE)2018-10-22 19:37:00 [place] [address] Patient Name: ARANZA LOPEZ MR #: [id number] : 1970 Age/Sex: 48/M Req #: [id number] Adm Physician: JARRET ALEXIS MD Ordered by: SUE LOGAN, DIONICIO LOGAN Report #: [id number] Location: [facility] Room/Bed: [place] [address] Procedure: [id number] D X/CHEST SINGLE (PORTABLE) Exam Date: 10/22/18 [...] 7:38 PM Dictated By: CHUCKY SERRA MD Taty garcia Signed By: CHUCKY SERRA MD on 10/22/181937 [...] Urine Source? Clean CatchDRUGS OF ABUSE SCREEN EH0644-40-45 13:37:00* Test Item Value Reference Range Interpretation [...] NEGATIVE <300 ng/mL Urine Source? Clean CatchURINALYSIS YPPDYWBG9377-40-89 13:13:00* Test Item Value Reference Range Interpretation [...] Urine Source? Clean CatchDRUGS OF ABUSE SCREEN GQ2672-30-39 13:13:00* Test Item Value Reference Range Interpretation [...] <300 ng/mL Urine Source? Clean CatchB-TYPE NATRIURETIC UZSRBXC2564-61-34 12:08:00* Test Item Value Reference Range Interpretation Comments B-TYPE NATRIURETIC PEPTIDE (test code = BNP) 22.65 pgram/mL 0-100 N NYPKYHCHU9093-78-03 11:48:00* Test Item Value Reference Range Interpretation Comments MAGNESIUM (test code = MAG) 2.2 mg/dL 1.8-2.4 N - CT HEAD/BRAIN W/O [id number] 11:41:00 Name: ARANZA LOPEZ [facility] : 1970 Age/S: 48 / M [address] [facility] Unit #: [id number] Loc: [place] [address] Phys: Jan Ly MD Acct: [id number] Dis Date: Status: ADM IN PHONE #: [phone] Exam Date: 10/08/2018 1122 FAX #: [phone] Reason: ams EXAMS: CPT CODE: [id number] CT HEAD/BRAIN W/O CONT 41580 HISTORY: Confusion. COMPARISON: August 05, 2018. CT [...] (1141) t.SDR.TH4 Orig Print D/T: S: 10/08/2018 (9233) PAGE 1 Signed Report BASIC METABOLIC [id number] 11:37:00* Test Item Value Reference Range Interpretation [...] CA) 9.0 mg/dL 8.5-10.1 N HEPATIC FUNCTION [id number] 11:37:00* Test Item Value Reference Range Interpretation [...] reference range due to change in reagent. [id number] 11:37:00* Test Item Value Reference Range Interpretation Comments LIPASE (test code = LIP) 114 U/L 73.0-393.0 N THYROID STIMULATING NQAEJTQ6291-97-16 11:37:00* Test Item Value Reference Range Interpretation Comments THYROID STIMULATING HORMONE (test code = TSH) 1.560 uIU/mL 0.36-3.7 4 N TSH REFERENCE RANGES: EUTHYROID: 0.35 - 4.3 mIU/mL HYPO : > 5.5 mIU/mL HYPER : < 0.35 mIU/mL [id number] 11:37:00* Test Item Value Reference Range Interpretation Comments TROPONIN-I (test code = TROPI) <0.015 ng/mL 0-0.045 N XXTOXNADCMJEB5062-31-15 11:37:00* Test Item Value Reference Range Interpretation Comments ACETAMINOPHEN (test code = ACET) < 10 mcg/mL 10-30 L A RANGE OF 10-30 mcg/mL IS A THERAPEUTIC RANGE. TOXIC CONCENTRATIONS: >150 mcg/mL AT 4 HOURS AFTER INGESTION >= 50 mcg/mL AT 12 HOURS AFTER INGESTION [id number] 11:37:00* Test Item Value Reference Range Interpretation Comments SALICYLATE (test code = JANET) 3.6 mg/dL 2.8-20.0 N [id number] 11:37:00* Test Item Value Reference Range Interpretation Comments ALCOHOL (test code = ALC) < 3 mg/dL 0.0-3.0 N -- INTERPRETIVE DATA NOTE: POSITIVE SCREENING RESULTS SHOULD BE CONSIDERED PRESUMPTIVE.WHEN COLLECTED FOR MEDICAL PURPOSES ONLY. SPECIMEN WILL NOTBE COLLECTED BY CHAIN OF CUSTODY.IF A CONFIRMATION OF POSITIVE RESULTS IS DESIRED, ACONFIRMATION TEST MUST BE REQUESTED BY THE PHYSICIAN AT ANADDITIONAL CHARGE TO THE PATIENT. [id number] 10:58:00* Test Item Value Reference Range Interpretation Comments AMMONIA (test code = AMM) 31 umol/L 11-32 N PROTHROMBIN [id number] 10:57:00* Test Item Value Reference Range Interpretation [...] (2.5-3.5) IS PATIENT ON ANTICOAGULANTS? NTHROMBOPLASTIN TIME RPGVJMH2431-20-05 10:57:00* Test Item Value Reference Range Interpretation Comments THROMBOPLASTIN TIME PARTIAL (test code = PTT) 39.9 seconds 25.0-36. 5 H IS PATIENT ON ANTICOAGULANTS? NBASIC METABOLIC [id number] 10:55:00* Test Item Value Reference Range Interpretation [...] code = CA) mg/dL 8.5-10.1 HEPATIC FUNCTION [id number] 10:55:00* Test Item Value Reference Range Interpretation [...] TOTAL (test code = ALKP) IUnit/L 45-117 [id number] 10:55:00* Test Item Value Reference Range Interpretation Comments LIPASE (test code = LIP) U/L 73.0-393.0 THYROID STIMULATING [id number] 10:55:00* Test Item Value Reference Range Interpretation Comments THYROID STIMULATING HORMONE (test code = TSH) uIU/mL 0.36-3.7 4 PCVVKDVC-[id number] 10:55:00* Test Item Value Reference Range Interpretation Comments TROPONIN-I (test code = TROPI) ng/mL 0-0.045 [id number] 10:55:00* Test Item Value Reference Range Interpretation Comments ACETAMINOPHEN (test code = ACET) mcg/mL 10-30 TZTSOZNZUW9536-01-46 10:55:00* Test Item Value Reference Range Interpretation Comments SALICYLATE (test code = JANET) mg/dL 2.8-20.0 [id number] 10:55:00* Test Item Value Reference Range Interpretation Comments ALCOHOL (test code = ALC) mg/dL 0-3 CBC W/O [id number] 10:53:00* Test Item Value Reference Range Interpretation [...] fL 6.7-11.0 N - XR CHEST 1 [id number] 10:53:00 FAX: Jan Ly MD [phone] [place]: St: [facility] FAX: Blake Cazares MD [phone] Name: ARANZA LOPEZ [facility] : 1970 Age/S: 48/M [address] [facility] Unit #: [id number] Loc: [place] [address] Phys: Jan Ly MD Acct: [id number] Dis Date: Status: REG ER PHONE #: [phone] Exam Date: 10/08/2018 1044 FAX #: [phone] Reason: WEAKNESS EXAMS: CPT CODE: [id number] XR CHEST 1 V 38327 HISTORY: Weakness. COMPARISON: September 10, 2018. No acute infiltrates, effusion or congestion is noted. Suboptimal inspiration with dependent changes. Moderate cardiomegaly. Patient is post median sternotomy. Cervical fusion in the lower neck. IMPRESSION: No acute infiltrates, effusion or congestion. at 1053 Reported and signed by: Oliver Martinez M.D. CC: Jan Ly MD; Blake Cruz MD Technologist: RT ELMO(R) Trnscrd Date/Time/By: 019 (4736) : By: [email or web address] Orig Print D/T: S: 10/08/2018 (4545) PAGE 1 Signed Report CBC W/O [id number] 10:44:00* Test Item Value Reference Range Interpretation [...] code = MPV) fL 6.7-11.0 TROPONIN I [id number] 10:43:00* Test Item Value Reference Range Interpretation [...] only if similarmethodology is used. ARTERIAL BLOOD [id number] 10:42:00* Test Item Value Reference Range Interpretation [...] % vol 18.0-22.0 L POCT GLUCOSE (AUTOMATED)2018-09-29 14:31:72091Dyyexwev HermannTROPONIN I 2018-09-29 08:54:000.002[facility] HermannBASIC METABOLIC PANEL (NA, K, CL, CO2, GLUCOSE, BUN, CREATININE, CA)2018-09-29 08:42:24686Vigblmbk HermannBASIC METABOLIC PANEL (NA, K, CL, CO2, GLUCOSE, BUN, CREATININE, CA)2018-09-29 08:42:003.6[facility] HermannBASIC METABOLIC PANEL (NA, K, CL, CO2, GLUCOSE, BUN, CREATININE, CA)2018-09-29 08:42:46516Fwklysun HermannBASIC METABOLIC PANEL (NA, K, CL, CO2, GLUCOSE, BUN, CREATININE, CA)2018-09-29 08:42:0027[facility] Artur BASIC METABOLIC PANEL (NA, K, CL, CO2, GLUCOSE, BUN, CREATININE, CA)2018-09-29 08:42:008[facility] HermannBASIC METABOLIC PANEL (NA, K, CL, CO2, GLUCOSE, BUN, CREATININE, CA)2018-09-29 08:42:0012[facility] HermannBASIC METABOLIC PANEL (NA, K, CL, CO2, GLUCOSE, BUN, CREATININE, CA)2018-09-29 08:42:33673Davztncf [facility] BASIC METABOLIC PANEL (NA, K, CL, CO2, GLUCOSE, BUN, CREATININE, CA)2018-09-29 08:42:000.95[facility] HermannBASIC METABOLIC PANEL (NA, K, CL, CO2, GLUCOSE, BUN, CREATININE, CA)2018-09-29 08:42:008.3[facility] HermannBASIC METABOLIC PANEL (NA, K, CL, CO2, GLUCOSE, BUN, CREATININE, CA)2018-09-29 08:42:0084.6[facility] BASIC METABOLIC PANEL (NA, K, CL, CO2, GLUCOSE, BUN, CREATININE, CA)2018-09-29 08:42:06498.6[facility] OtzbnpqVXUJLIUWO0013-74-56 08:42:001.5[facility] M-MGNPH3942-32VQGYK0398-73-52 00:25:000.32Memorial HermannN-TERMINAL RLA-WVD0438-99-11 23:32:01917Acawtigh HermannCBC WITH ZSQPMDUABIBQ1695-52-46 23:14:005.62[facility] HermannCBC WITH MLOZPWPKLXKQ3137-91-69 23:14:004.06[facility] HermannCBC WITH OUBSYESMYUIA2183-30-37 23:14:0012.6[facility] HermannCBC WITH DIFFERENTIAL 2018-09-28 23:14:0038.0[facility] HermannCBC WITH ZCLOYWKDNPZC7925-44-84 23:14:00 93.6[facility] HermannCBC WITH WTTMMYHXPBYB5687-43-30 23:14:00* Test Item Value Reference Range Interpretation Comments <td ID="[id number]">MCH</t d><td>31.0</td><td>26.1 - 32.7 pg</td><td>[facility]</td><td ID="[id number]"/> (test code = <td ID="[id number]">MCH</td><td>31.0</td><td>26.1 - 32.7 pg</td><td>[facility]</td><td ID="[id number]"/>) 31.0 pg 26.1-32.7 [facility] HermannCBC WITH XVEOXQZJOLDI6230-14-25 23:14:0033.2[facility] [facility] WITH OGUUHGKAOBPK3931-97-39 23:14:0047.1[facility] WITH DIFFERENTIAL 2018-09-28 23:14:0014.0[facility] WITH BADMLPFOJWNZ1593-98-20 23:14:00 200[facility] WITH ZNKNUXGDNEDQ1553-60-12 23:14:009.5[facility] CBC WITH PDEJVPAXGYAW7444-58-58 23:14:000.0[facility] WITH DIFFERENTIAL 2018-09-28 23:14:0056.7[facility] WITH ZJTPXQQUIHNW6530-12-58 23:14:00 2.10[facility] WITH FFOVCBIELNMQ3907-42-28 23:14:0029.0[facility] CBC WITH FMBZVUQHAQST2928-32-13 23:14:009.3[facility] WITH DIFFERENTIAL 2018-09-28 23:14:002.5[facility] WITH QBJYBYNFQSXF9779-55-01 23:14:00 0.4[facility] WITH CXIIOUANBYLP0856-82-19 23:14:003.19[facility] WITH TDORINWKASKS1795-58-39 23:14:000.12[facility] WITH ZAZGSVTMLXAD0096-34-29 23:14:001.63[facility] WITH DIFFERENTIAL 2018-09-28 23:14:000.52[facility] WITH DEXQTBNYIALC1748-35-67 23:14:00 0.14[facility] HermannTroponin H0862-67-86 23:04:000.001[facility]annBasic Metabolic Panel (NA, K, CL, CO2, GLUCOSE, BUN, CREATININE, CA)2018-09-28 22:51:15726Jhaljssh HermannBasic Metabolic Panel (NA, K, CL, CO2, GLUCOSE, BUN, CREATININE, CA)2018-09-28 22:51:003.6[facility]ann[facility] Metabolic Panel (NA, K, CL, CO2, GLUCOSE, BUN, CREATININE, CA)2018-09-28 22:51:05754Bjevggga [facility] Basic Metabolic Panel (NA, K, CL, CO2, GLUCOSE, BUN, CREATININE, CA)2018-09-28 22:51:0025[facility]ann[facility] Metabolic Panel (NA, K, CL, CO2, GLUCOSE, BUN, CREATININE, CA)2018-09-28 22:51:009[facility]ann[facility] Metabolic Panel (NA, K, CL, CO2, GLUCOSE, BUN, CREATININE, CA)2018-09-28 22:51:0013[facility]ann[facility] Metabolic Panel (NA, K, CL, CO2, GLUCOSE, BUN, CREATININE, CA)2018-09-28 22:51:86379Ajbudgtl [facility]annBasic Metabolic Panel (NA, K, CL, CO2, GLUCOSE, BUN, CREATININE, CA)2018-09-28 22:51:000.88[facility]ann[facility] Metabolic Panel (NA, K, CL, CO2, GLUCOSE, BUN, CREATININE, CA)2018-09-28 22:51:009.1[facility] Basic Metabolic Panel (NA, K, CL, CO2, GLUCOSE, BUN, CREATININE, CA)2018-09-28 22:51:0092.4[facility]ann[facility] Metabolic Panel (NA, K, CL, CO2, GLUCOSE, BUN, CREATININE, CA)2018-09-28 22:51:67239.0[facility] UnhdlwtmLKV4493-69-51 22:50:0033 [facility]annProthrombin Time (PT) / XNM1011-06-08 22:50:0011.1[facility] HermannProthrombin Time (PT) / PNJ3694-44-53 22:50:001.0[facility] HermannTroponin 2018-09-24 21:50:29* Test Item Value Reference Range Interpretation Comments Troponin (test code = 73769-0) <0.006 0-0.04 [facility] changed methodology effective: 06/24/2018 at 10:00 amThe new method has a 99th percentile cutoff of 0.040 ng/mL [facility] natriuretic zlqoeig2769-27-88 21:28:35* Test Item Value Reference Range Interpretation Comments BNP (test code = 49412-7) 25 pg/mL 0-100 [facility] 12 xwmd0150-81-64 21:23:13* Test Item Value Reference Range Interpretation Comments Ventricular rate (test code = 253) 95 Atrial rate (test code = 255) 95 NM interval (test code = 266) 152 QRSD [...] of 17-MAY-2018 16:37,-No significant change was found- Eliel MethodistComprehensive metabolic nquyd3657-15-77 21:22:13* Test Item Value Reference Range Interpretation Comments Sodium (test code = 2951-2) 138 135- 148 mEq/L Potassium (test code = 2823-3) 4.0 3.5- 5.0 mEq/L Chloride (test code = 2075-0) 98 98- 112 mEq/L CO2 (test code = 8-9) 29 24- 31 mEq/L Anion gap (test code = 76776-9) 11@ANIO 7- 15 mEq/L BUN (test code = 3094-0) 18 mg/dL 6-20 Creatinine (test code = 2160-0) 1.20 mg/dL 0.7-1.2 Glucose (test code = 2345-7) 268 mg/dL 65-99 H Calcium (test code = 25859-9) 9.2 mg/dL 8.3-10.2 Protein (test code = 2885-2) 6.3 g/dL 6.3-8.3 4.6-7.0 g/dL1 week 4.4-7.6 g/dL7 months-1year 5.1-7.3 g/dL1-2 years 5.6-7.5 g/dL>3 years 6.0-8.0 g/mO95-099 6.3-8.3 g/dL Albumin (test code = 1751-7) 3.6 g/dL 3.5-5 A/G ratio (test code = 1759-0) 1.3 0.7-3.8 Alkaline phosphatase (test code = 6768-6) 121 U/L 40-129 AST (test code = 1920-8) 24 U/L 10-50 ALT (test code = 1742-6) 21 U/L 5-50 Total bilirubin (test code = 1975-2) 0.3 mg/dL 0-1.2 Lab Interpretation (test code = 35861-2) Abnormal Julian MethodistEstimated BKM2793-42-70 21:22:12* Test Item Value Reference Range Interpretation Comments Estimated GFR (test code = 5488) 71 mL/min/1.73 m2 Catergory Units InterpretationG1 >=90 Normal or highG2 60-89 Mildly bvznkhxtyK7y 45-59 Mildly to moderately labgcqzdbF1w 30-44 Moderately to severely decreasedG4 15-29 Severely decreasedG5 <15 Kidney failureThe eGFR was calculated using the Chronic Kidney Disease Epidemiology Collaboration (CKD-EPI) equation. Interpretation is based on recommendations of the National Kidney Foundation-Kidney Disease Outcomes Quality Initiative (NKF-KDOQI) published in 2014. [place] MethodistProthrombin time with HRU4623-34-58 21:18:04* Test Item Value Reference Range Interpretation Comments Prothrombin time (test code = 5902-2) 12.5 11.5- 14.5 sec INR (test code = 60901-5) 1.0 Th e International Normalized Ratio (INR) is a therapeutic monitoring tool for patients who are stable on oral anticoagulant therapy. An INR of 2.0-3.0 is suggested for deep vein thrombosis/pulmonary embolism. [facility] MethodistPartial thromboplastin time, lmhbrtvhm6540-14-99 21:18:04* Test Item Value Reference Range Interpretation Comments PTT (test code = 15745-1) 28.8 23.0- 36.0 sec PTT therapeutic range for unfractionated heparin is61.0-112.0 seconds which corresponds to Anti-Xa0.3-0.7 U/ml. [facility] MethodistCBC with platelet and eqfazcicwvfd3941-46-91 21:10:05* Test Item Value Reference Range Interpretation Comments WBC (test code = 81535-2) 7.66 4.50- 11.00 k/uL RBC (test code = 28345-5) 4.07 m/uL 4.4-6 L HGB (test code = 718-7) 12.4 g/dL 14-18 L HCT (test code = 4544-3) 37.7 % 41-51 L MCV (test code = 787-2) 92.6 fL 82-100 MCH (test code = 785-6) 30.5 pg 27-34 MCHC (test code = 786-4) 32.9 g/dL 31-37 RDW - SD (test code = 16050-5) 46.9 fL 37-55 MPV (test code = 63594-4) 9.8 fL 8.8-13.2 Platelet count (test code = 91480-4) 203 150- 400 k/uL Nucleated RBC (test code = 17465-9) 0.30 /100 WBC Neutrophils (test code = 60469-1) 61.5 % 39-69 Lymphocytes (test code = 88173-1) 26.8 % 25-45 Monocytes (test code = 69360-3) 6.7 % 0-10 Eosinophils (test code = 95767-9) 2.7 % 0-5 Basophils (test code = 55383-9) 0.5 % 0-1 Lab Interpretation (test code = 28971-3) Abnormal [facility] MethodistXR Chest 1 Ka9721-32-24 20:21:03Hm Interface, Radiology Results - 09/24/2018 8:24 PM CDTEXAMINATION: XR CHEST 1 VWCLINICAL HISTORY: Chest pain acute nonspecific low prob CADCOMPARISON:May 17, 2018 .IMPRESSION:1. Heart size is normal. Median sternotomy wires overlie the midline.2. Interval left basilar atelectasis.3. No pneumothorax.4. Osseous structures are intact.[facility]-1IZ0580RRQDmgajwtUval[facility] jkufmox7161-63-82 19:41:51* Test Item Value Reference Range Interpretation Comments POC glucose (test code = 46532-8) 299 mg/dL 65-99 H Meter ID: [id number]: Shun Garcia ([employer]) Lab Interpretation (test code = 89555-4) Abnormal [facility] Preliminary Interpretation - Not an Isucj4420-03-96 19:32:29Pepito Slade MD 09/25/2018 12:13 [facility] ED Preliminary Interpretation - Not an OrderPerformed by: Pepito Slade MDAuthorized by: Pepito Slade MD ECG reviewed by ED Physician in 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: 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 (2007) Interpretation: Interpretation: normal Rate: ECG rate: 95 ECG rate assessment: normal Rhythm: Rhythm: sinus rhythm Ectopy: Ectopy: none QRS: QRS axis: Normal QRS intervals: NormalConduction: Conduction: normal ST segments: ST segments: NormalT waves: T waves: normal Other findings: Other findings: prolonged qTc interval [facility] (AUTOMATED)2018-09-20 13:56:79765Icpjfbvq HermannTroponin O0024-87-11 09:34:000.003[facility] HermannTroponin S9392-77-36 01:42:000.000 [facility] SOK-QQU3463-35-03 01:33:0091[facility] HermannBasic Metabolic Panel (NA, K, CL, CO2, GLUCOSE, BUN, CREATININE, CA)2018-09-20 01:27:34435Achgcayt HermannBasic Metabolic Panel (NA, K, CL, CO2, GLUCOSE, BUN, CREATININE, CA)2018-09-20 01:27:003.2[facility] HermannBasic Metabolic Panel (NA, K, CL, CO2, GLUCOSE, BUN, CREATININE, CA)2018-09-20 01:27:0099[facility] Basic Metabolic Panel (NA, K, CL, CO2, GLUCOSE, BUN, CREATININE, CA)2018-09-20 01:27:0025[facility] HermannBasic Metabolic Panel (NA, K, CL, CO2, GLUCOSE, BUN, CREATININE, CA)2018-09-20 01:27:0016[facility]annBasic Metabolic Panel (NA, K, CL, CO2, GLUCOSE, BUN, CREATININE, CA)2018-09-20 01:27:0018[facility] Basic Metabolic Panel (NA, K, CL, CO2, GLUCOSE, BUN, CREATININE, CA)2018-09-20 01:27:95187Xvqypevq HermannBasic Metabolic Panel (NA, K, CL, CO2, GLUCOSE, BUN, CREATININE, CA)2018-09-20 01:27:001.10[facility]annBasic Metabolic Panel (NA, K, CL, CO2, GLUCOSE, BUN, CREATININE, CA)2018-09-20 01:27:009.3[facility] Basic Metabolic Panel (NA, K, CL, CO2, [...] BILI T, BU/BC, ALT, AST, ALK PHOS)2018-09-20 01:27:57521Xbyokkyl HermannHepatic Function Panel (ALB, T.PRO, BILI T, BU/BC, ALT, AST, ALK PHOS) 2018-09-20 01:27:0039[facility] HermannHepatic Function Panel (ALB, T.PRO, BILI T, BU/BC, ALT, AST, ALK PHOS)2018-09-20 01:27:0021[facility]annCBC WITH VQPTYXNPCZCL7447-07-67 01:11:008.70[facility] WITH DIFFERENTIAL 2018-09-20 01:11:004.22[facility] WITH QPTMLRFVTQXV0336-55-60 01:11:00 13.2[facility] WITH GSNPGFMEUROQ2850-98-60 01:11:0038.9[facility] WITH JWKVYODQJDKU3045-59-17 01:11:0092.2[facility] WITH OHTWLQJKXDBS6310-72-76 01:11:00* Test Item Value Reference Range Interpretation Comments <td ID="[id number]">MCH</t d><td>31.3</td><td>26.1 - 32.7 pg</td><td>[facility]</td><td ID="[id number]"/> (test code = <td ID="[id number]">MCH</td><td>31.3</td><td>26.1 - 32.7 pg</td><td>[facility]</td><td ID="[id number]"/>) 31.3 pg 26.1-32.7 [facility] WITH YTBYTXKPXCRZ3804-73-58 01:11:0033.9[facility] WITH MIXGBTPMREMG7259-89-16 01:11:0047.6[facility] WITH DIFFERENTIAL 2018-09-20 01:11:0014.3[facility] WITH IDMWVNIGVNUD6917-08-96 01:11:00 217[facility]CBC WITH ABSDRBALUBIQ4543-58-71 01:11:009.7[facility] CBC WITH CENOPCQJAULG7513-30-17 01:11:000.0[facility] WITH DIFFERENTIAL 2018-09-20 01:11:0067.6[facility] WITH KEPMEPBJREZZ4487-43-06 01:11:00 1.10[facility] WITH XYTAIFHBOAYC2497-55-67 01:11:0021.7[facility] CBC WITH CDNIAORLTUKC6572-87-67 01:11:007.6[facility] WITH DIFFERENTIAL 2018-09-20 01:11:001.7[facility] WITH PIWGUGEBUGYR0080-76-82 01:11:00 0.3[facility] WITH NUTZQOBNNXBN1682-43-02 01:11:005.87[facility] CBC WITH VZBCZJNAPBQU7542-69-45 01:11:000.10[facility] WITH ZXGAQOJCKXDG7718-90-17 01:11:001.89[facility] WITH DIFFERENTIAL 2018-09-20 01:11:000.66[facility] WITH HTILPCMTCFOL9558-74-91 01:11:00 0.15[facility] WITH DIDYXWUUWHIT9552-43-24 01:11:000.03[facility] B-TYPE NATRIURETIC KANTLHK4104-47-81 01:07:00* Test Item Value Reference Range Interpretation Comments B-TYPE NATRIURETIC PEPTIDE (test code = BNP) 15.1 PG/ML 0-100 N BASIC METABOLIC RUEUJ5069-45-39 01:04:00* Test Item Value Reference Range Interpretation [...] code = CA) 7.7 mg/dL 8.0-10.5 L QYUSIYIL-Q9399-80-30 01:04:00* Test Item Value Reference Range Interpretation Comments TROPONIN-I (test code = TROPI) < 0.015 ng/mL 0.000-0.045 N Negative: <= 0.045 Positive: >= 0.046 Correlation with serial results, other cardiac markers andclinical findings is necessary to determine the clinicalsignificance of this result. Results using different methodologies should not be comparedto one another as quantitative results may vary by method. - XR CHEST 2 [id number] 00:54:00 FAX: Ankita Billingsley MD [phone] [place]: St: REG FAX: Rodney Dubon MD [phone] FAX: Blake Cazares MD [phone] Name: ARANZA LOPEZ [facility] : 1970 Age/S: 48/M [address] [place] [address] Unit #: [id number] Loc: [place] [address] Phys: Rodney Dubon MD Acct: [id number] Dis Date: Status: REG ER PH ONE #: [phone] Exam Date: 09/16/2018 0031 FAX #: [phone] Reason: chest pain EXAMS: CPT CODE: [id number] XR CHEST 2 V 44259 EXAM: CR, XR chest 2 views: 09/16/2018, [...] Dubon MD; Blake Cruz M.D. Technologist: Teri Bernabe, RT(R) [facility] Date/Time/By: 0 09/16/2018 (0054) : By: [email or web address] Orig Print D/T: S: 09/16/2018 (0057) PAGE 1 Signed Report CBC W/AUTO XDGG7198-00-73 00:28:00* Test Item Value Reference Range Interpretation [...] DIFF REQUIRED (test code = MDIFF) NO AGZEBK7684-85-78 19:28:00* Test Item Value Reference Range Interpretation Comments GLUBED (test code = GLUBED) 154 MG/DL 70-110 H Performed by certified hydraulic press in operator at [facility] ZPNUMR2668-07-77 12:07:00* Test Item Value Reference Range Interpretation Comments GLUBED (test code = GLUBED) 213 MG/DL 70-110 H Performed by certified hydraulic press in operator at [facility] OSMBRZ0919-12-90 07:55:00* Test Item Value Reference Range Interpretation Comments GLUBED (test code = GLUBED) 203 MG/DL 70-110 H Performed by certified hydraulic press in operator at [facility] NLDOMQ9376-58-95 20:11:00* Test Item Value Reference Range Interpretation Comments GLUBED (test code = GLUBED) 216 MG/DL 70-110 H Performed by certified hydraulic press in operator at [facility] SNWHCI4174-99-71 16:32:00* Test Item Value Reference Range Interpretation Comments GLUBED (test code = GLUBED) 257 MG/DL 70-110 H Performed by certified hydraulic press in operator at [facility] AYNBRC3437-77-88 11:24:00* Test Item Value Reference Range Interpretation Comments GLUBED (test code = GLUBED) 253 MG/DL 70-110 H Performed by certified hydraulic press in operator at [facility] OHMTMX1451-78-76 08:54:00* Test Item Value Reference Range Interpretation Comments GLUBED (test code = GLUBED) 201 MG/DL 70-110 H Performed by certified hydraulic press in operator at [facility] COMPREHENSIVE METABOLIC KYGTN6878-57-41 07:38:00* Test Item Value Reference Range Interpretation [...] ALKP) 90 IUnit/L 20-125 N CBC W/AUTO SIZQ0283-27-39 07:19:00* Test Item Value Reference Range Interpretation [...] DIFF REQUIRED (test code = MDIFF) NO VQMOIKDC-S6653-65-25 03:42:00* Test Item Value Reference Range Interpretation [...] (including troponin done in ED)LACTIC ACID 2ND AXHODC0032-16-48 02:43:00* Test Item Value Reference Range Interpretation Comments LACTIC ACID 2ND REPEAT (test code = LACT2) 2.5 mmol/L 0.4-1.9 H QMCVMNSK-M9913-54-25 00:32:00* Test Item Value Reference Range Interpretation [...] = SQU) NONE SEEN /HPF NONE SEEN XTMBLEB8125-93-54 23:51:00* Test Item Value Reference Range Interpretation Comments DIGOXIN (test code = DIG) 0.1 NG/ML 0.8-2.0 L LACTIC ACID WIZCET5433-17-86 23:21:00* Test Item Value Reference Range Interpretation Comments LACTIC ACID REPEAT (test code = LACTR) 2.1 mmol/l 0.4-1.9 H - CTA ABD PEL W UEHG3455-41-91 22:16:00 Name: ARANZA LOPEZ [facility] : 1970 Age/S: 48 / M [address] [place] [address] Blvd Unit #: [id number] Loc: [place] [address] Phys: Coral Fonseca MD Acct: [id number] Dis Date: Status: REG ER PHONE #: [phone] Exam Date: 09/10/20182121 FAX #: [phone] Reason: dissection protocol EXAMS: CPT CODE: [id number] CTA ABD PEL W CONT 23261 Clinical Indication: dissection protocol Comparison: CTA chest [...] 1 Signed Report (CONTINUED) Name: ARANZA LOPEZ [facility] Rosendo Coronel : 1970 Age/S: 48 / M [address] [place] [address] Blvd Unit #: [id number] Loc: [place] [address] Phys: Jean Carlos Fonseca MD Acct: [id number] Di s Date: Status: REG ER PHONE #: [phone] Exam Date: 09/10/20182121 FAX #: Reason: dissection protocol EXAMS: CPT CODE: [id number] CTA ABD PEL W CONT 61412 <Continued> BILIARY TREE: The common bile duct [...] Signed R eport (CONTINUED) Name: ARANZA LOPEZ [facility] : 1970 Age/S: 48 / M [address] [facility] Unit #: [id number] Loc: [place], [place] [address] Phys: Coral Fonseca MD Acct: [id number] Dis Date: Status: REG ER PHONE #: [phone] Exam Date: 09/10/20182121 FAX #: [phone] Reason: dissection protocol EXAMS: CPT CODE: [id number] CTA ABD PEL W CONT 34766 <Continued> IMPRESSION: This study is suboptimal due to poor bolus timing and body habitus. This study is nondiagnostic for evaluating dissection since the contrast phase is in the portal venous phase rather than in the arterial phase. 1. Hepatosplenomegaly. 2. Cholecystectomy. 3. Constipation. SL: LANVU-H at 2216 Reported and signed by: Joe Tomlni M.D. CC: Deepak Ruby MD; Coral Fonseca MD; Blake Cruz M.D. Technologist:RT Darell(R) CTDI: DLP: Trnscb Date/Time: 09/10/2018 (2215) t.SDR.LNV Orig Print D/T: S: 09/10/2018 (9) PAGE 3 Signed Report - CT ANGIO [id number] 22:16:00 Name: ARANZA LOPEZ [facility] : 1970 Age/S: 48 / M [address] [place] [address] Unit #: [id number] Loc: [place] [address] Phys: Jean Carlos Fonseca MD Acct: [id number] Di s Date: Status: REG ER PHONE #: Exam Date: 09/10/20182121 FAX #: Reason: dissection protocol, cp EXAMS: CPT CODE: [id number] CT ANGIO CHEST 44805 Clinical Indication: diss ection protocol Comparison: CTA [...] 1 Signed Report (CONTINUED) Name: ARANZA LOPEZ [facility] : 1970 Age/S: 48 / M [address] [place] [address] Unit #: [id number] Loc: [place] [address] Phys: Jean Carlos Fonseca MD Acct: [id number] Di s Date: Status: REG ER PHONE #: [phone] Exam Date: 09/10/20182121 FAX #: Reason: dissection protocol, cp EXAMS: CPT CODE: [id number] CT ANGIO CHEST 20876 <Continued> BILIARY TREE: The common bile duct [...] Signed R eport (CONTINUED) Name: ARANZA LOPEZ [facility] : 1970 Age/S: 48 / M [address] Unit #: [id number] Loc: [place], [place] [address] Phys: Coral Fonseca MD Acct: [id number] Dis Date: Status: REG ER PHONE #: [phone] Exam Date: 09/10/20182121 FAX #: [phone] Reason: dissection protocol, cp EXAMS: CPT CODE: [id number] CT ANGIO CHEST 62305 <Continued> IMPRESSION: This study is suboptimal due [...] Darell(R) CTDI: DLP: Trnscb Date/Time: 09/10/2018 (2215) t.MILINDR.LNV Orig Print D/T: S: 09/10/2018 (0391) PAGE 3 Signed Report B-TYPE NATRIURETIC [id number] 21:21:00* Test Item Value Reference Range Interpretation Comments B-TYPE NATRIURETIC PEPTIDE (test code = BNP) 17.8 PG/ML 0-100 N - XR CHEST 1 [id number] 21:16:00 FAX: Ankita Billingsley MD [phone] [place]: St: REG FAX: Coral Fonseca MD [phone] FAX: Blake Cazares MD [phone] Name: ARANZA LOPEZ [facility] : 1970 Age/S: 48/M [address] [place] [address] Unit #: [id number] Loc: [address] [address] Phys: Coral Fonseca MD Acct: [id number] Dis Date: Status: REG ER PH ONE #: [phone] Exam Date: 09/10/20182051 FAX #: [phone] Reason: dissection protocol EXAMS: CPT CODE: [id number] XR CHEST 1 V 88794 Study: - XR C HEST 1 V 09/10/2018 8:23 PM Patient Name: ARANZA LOPEZ MR: [id number] : 1970; Age: 48 years y/o [...] abnormality as above discussed. SL: RADHA at 2115 Reported and signed by: Jean Carlos Ford M.D. PAGE 1 Signed Report (CONTINUED) FAX: Ankita Billingsley MD [phone] [place]: St: REG FAX: Coral Fonseca MD [phone] FAX: Blake Ford ra, MD [phone] Name: ARANZA LOPEZ [facility] : 1970 Age/S: 48/M [address] [place] [address] Unit #: [id number] Loc: [address] [address] Phys: oCral Fonseca MD Acct: [id number] Dis Date: Status: REG ER PHONE #: [phone] Exam Date: 09/10/20182051 FAX #: [phone] Reason: dissection protocol EXAMS: CPT CODE: [id number] XR CHEST 1 V 36938 < Continued> CC: Deepak Ruby MD; Coral Fonseca MD; Blake Cruz M.D. Technologist: VIDAL Ramirez RT(R); Amparo Daniel RT(R) [facility] Date/Time/By: 09/10/2018 (2115) : By: [email or web address] Orig Print D/T: S: 09/10/2018 (8) PAGE 2 Signed Report - XR ELBOW 2 VIEWS RT 2018-09-10 21:15:00 FAX: Ankita Billingsley MD [phone] [place]: St: REG FAX: Coral Fonseca MD [phone] FAX: Blake Cazares MD [phone] Name: ARANZA LOPEZ [facility] : 1970 Age/S: 48/M [address] [place] [address] Unit #: [id number] Loc: [address] [address] Phys: Coral Fonseca MD Acct: [id number] Dis Date: Status: REG ER PH ONE #: [phone] Exam Date: 09/10/20182051 FAX #: [phone] Reason: fall EXAMS: CPT CODE: [id number] [place] [address] [place] [address] Clinical Indic ation: fall; Comparison: None FINDINGS: [...] or dislocation of the right elbow. SL: LUCITAUAkiH at 2115 Reported and signed by: Joe Tomlin M.D. CC: Deepak Ruby MD; Coral Fonseca MD; Blake Cruz M.D. Technologist: VIDAL Ramirez RT(R); Amparo Daniel, RT(R) [facility] Date/Time/By: 09/10/2018 ( 2114) : By: Graciela.LNV Orig Print D/T: S: 09/10/2018 (2117) PAGE 1 Signed Report BASIC METABOLIC [id number] 21:09:00* Test Item Value Reference Range Interpretation [...] CA) 8.6 mg/dL 8.0-10.5 N HEPATIC FUNCTION [id number] 21:09:00* Test Item Value Reference Range Interpretation [...] ALKP) 112 IUnit/L 20-125 N CBC W/AUTO [id number] 20:50:00* Test Item Value Reference Range Interpretation [...] REQUIRED (test code = MDIFF) NO TROPONIN-I [id number] 20:43:00* Test Item Value Reference Range Interpretation Comments TROPONIN-I RAPID (test code = TROPIRAP) 0.00 ng/mL 0.00-0.08 N Performed by certified hydraulic press in operator at [facility] Negative: <= 0.08 Positive: >= 0.09An elevated troponin value alone is not sufficient todiagnose a myocardial infarction. Rather, the patient sclinical presentation (history, physical exam) and ECGshould be used in conjunction with troponin in thediagnostic evaluation of suspected myocardial infarction. Aserial sampling protocol is recommended to facilitate the identification of temporal changes in troponin levels characteristic of SD. LACTIC ACID [id number] 20:35:00* Test Item Value Reference Range Interpretation Comments LACTIC ACID POC (test code = LACTP) 3.1 MMOL/L 0.90-1.70 H Performed by certified hydraulic press in operator at [facility] [id number] 04:55:00* Test Item Value Reference Range Interpretation Comments GLUBED (test code = GLUBED) 223 MG/DL 70-110 H Performed by certified hydraulic press in operator at [facility] [id number] 21:25:00* Test Item Value Reference Range Interpretation Comments GLUBED (test code = GLUBED) 195 MG/DL 70-110 H Performed by certified hydraulic press in operator at [facility] [id number] 12:25:00* Test Item Value Reference Range Interpretation Comments GLUBED (test code = GLUBED) 166 MG/DL 70-110 H Performed by certified hydraulic press in operator at [facility] [id number] 08:14:00* Test Item Value Reference Range Interpretation Comments GLUBED (test code = GLUBED) 218 MG/DL 70-110 H Performed by certified hydraulic press in operator at [facility] [id number] 21:21:00* Test Item Value Reference Range Interpretation Comments GLUBED (test code = GLUBED) 193 MG/DL 70-110 H Performed by certified hydraulic press in operator at [facility] [id number] 17:27:00* Test Item Value Reference Range Interpretation Comments GLUBED (test code = GLUBED) 184 MG/DL 70-110 H Performed by certified hydraulic press in operator at [facility] [id number] 12:21:00* Test Item Value Reference Range Interpretation Comments GLUBED (test code = GLUBED) 187 MG/DL 70-110 H Performed by certified hydraulic press in operator at [facility] [id number] 10:20:00* Test Item Value Reference Range Interpretation Comments GLUBED (test code = GLUBED) 185 MG/DL 70-110 H Performed by certified hydraulic press in operator at [facility] [id number] 20:07:00* Test Item Value Reference Range Interpretation Comments GLUBED (test code = GLUBED) 238 MG/DL 70-110 H Performed by certified hydraulic press in operator at [facility] [id number] 17:10:00* Test Item Value Reference Range Interpretation Comments GLUBED (test code = GLUBED) 220 MG/DL 70-110 H Performed by certified hydraulic press in operator at [facility] [id number] 12:07:00* Test Item Value Reference Range Interpretation Comments GLUBED (test code = GLUBED) 197 MG/DL 70-110 H Performed by certified hydraulic press in operator at [facility] [id number] 08:58:00* Test Item Value Reference Range Interpretation Comments GLUBED (test code = GLUBED) 185 MG/DL 70-110 H Performed by certified hydraulic press in operator at [facility] [id number] 21:18:00* Test Item Value Reference Range Interpretation Comments GLUBED (test code = GLUBED) 251 MG/DL 70-110 H Performed by certified hydraulic press in operator at [facility] [id number] 18:01:00* Test Item Value Reference Range Interpretation Comments GLUBED (test code = GLUBED) 202 MG/DL 70-110 H Performed by certified hydraulic press in operator at [facility] [id number] 16:46:00* Test Item Value Reference Range Interpretation Comments GLUBED (test code = GLUBED) 197 MG/DL 70-110 H Performed by certified hydraulic press in operator at [facility] [id number] 07:11:00* Test Item Value Reference Range Interpretation Comments GLUBED (test code = GLUBED) 200 MG/DL 70-110 H Performed by certified hydraulic press in operator at [facility] [id number] 03:39:00* Test Item Value Reference Range Interpretation [...] ANGIO CHEST 2018-08-28 01:22:00 Name: ARANZA LOPEZ [facility] : 1970 Age/S: 48 / M [address] [place] [address] Unit #: [id number] Loc: [place] [address] Phys: Song Echavarria MD Acct: [id number] Dis Date: Status: ADM IN PHONE #: [phone] Exam Date: 08/28/2018 0022 FAX #: [phone] Reason: chest pain EXAMS: CPT CODE: [id number] CT ANGIO CHEST [address] PROCEDURE: CT ANGIOGRAM OF THE CHEST WITH [...] 1 Signed Report (CONTINUED) Name: ARANZA LOPEZ [facility] : 1970 Age/S: 48 / M [address] [place] [address] Unit #: [id number] Loc: [place] [address] Phys: Song Echavarria MD Acct: [id number] Dis Date: Status: ADM IN PHONE #: [phone] Exam Date: 08/28/201821 FAX #: [phone] Reason: chest pain EXAMS: CPT CODE: [id number] CT ANGIO CHEST 50027 < Continued> ADDITIONAL FINDINGS: Note is made [...] Briseno, RT(R) CTDI: DLP: Trnscb Date/Time: 08/28/2018 (121) Shira Orig Print D/T: S: 08/28/2018 (012) PAGE 2 Signed Report [id number] 00:52:00* Test Item Value Reference Range Interpretation Comments GLUBED (test code = GLUBED) 173 MG/DL 70-110 H Performed by certified hydraulic press in operator at [facility] [id number] 00:46:00* Test Item Value Reference Range Interpretation [...] 0.00 ng/mL 0.00-0.08 N Performed by certified hydraulic press in operator at [facility] Negative: <= 0.08 Positive: >= 0.09An elevated troponin value alone is not sufficient todiagnose a myocardial infarction. Rather, the patient sclinical presentation (history, physical exam) and ECGshould be used in conjunction with troponin in thediagnostic evaluation of suspected myocardial infarction. Aserial sampling protocol is recommended to facilitate the identification of temporal changes in troponin levels characteristic of SD. CHEMISTRY 8 [id number] 23:23:00* Test Item Value Reference Range Interpretation [...] code = GFRBED) 69 ML/MIN CHEMISTRY 8 [id number] 23:23:00* Test Item Value Reference Range Interpretation Comments ISTAT-SODIUM (test code = NAP) 139 MMOL/L 134-147 N ISTAT-POTASSIUM (test code = KP) 3.5 MMOL/L 3.4-5.0 N ISTAT-CHLORIDE (test code = CLP) 99 MMOL/L 100-108 L Performed by certified hydraulic press in operator at [facility] ISTAT CARBON DIOXIDE (test code = ISTAT-CO2) [...] GFRBED) 69 ML/MIN - XR CHEST 1 [id number] 23:19:00 FAX: Ankita Billingsley MD [phone] [place]: St: PRE FAX: Blake Cazares MD [phone] FAX: Song Montes MD [phone] Name: ARANZA LOPEZ [facility] : 1970 Age/S: 48/M [address] [place] [address] Unit #: [id number] Loc: [place] [place] [address] Phys: Song Echavarria MD Acct: [id number] Dis Date: Status: PRE ER PH ONE #: [phone] Exam Date: 08/27/2018 2316 FAX #: [phone] Reason: Chest Pain EXAMS: CPT CODE: [id number] XR CHEST 1 V 76965 Chest, single view dated 08/27/2018. HISTORY: Chest [...] of acute cardiopulmonary disease. SL: 131 at 2319 Reported and signed by: Richard Pickard M.D. CC: Deepak Ruby MD; Blake Cruz M.D.; Song Echavarria MD Technologist: RT Catalino(R) Trnscrd Date/Time/By: 08/27/2018 (7770) : By: Shira Orig Print D/T: S: 08/27/2018 (6481) PAGE 1 Signed Report CBC W/AUTO DIFF [...] DIFF REQUIRED (test code = MDIFF) NO [id number] 22:06:00* Test Item Value Reference Range Interpretation Comments GLUBED (test code = GLUBED) 180 MG/DL 70-110 H Performed by certified hydraulic press in operator at [facility] [id number] 22:06:00* Test Item Value Reference Range Interpretation Comments GLUBED (test code = GLUBED) 144 MG/DL 70-110 H Performed by certified hydraulic press in operator at [facility] [id number] 22:06:00* Test Item Value Reference Range Interpretation Comments GLUBED (test code = GLUBED) 198 MG/DL 70-110 H Performed by certified hydraulic press in operator at [facility] [id number] 22:06:00* Test Item Value Reference Range Interpretation Comments GLUBED (test code = GLUBED) 180 MG/DL 70-110 H Performed by certified hydraulic press in operator at [facility] [id number] 22:05:00* Test Item Value Reference Range Interpretation Comments GLUBED (test code = GLUBED) 147 MG/DL 70-110 H Performed by certified hydraulic press in operator at [facility] [id number] 22:05:00* Test Item Value Reference Range Interpretation Comments GLUBED (test code = GLUBED) 159 MG/DL 70-110 H Performed by certified hydraulic press in operator at [facility] [id number] 22:05:00* Test Item Value Reference Range Interpretation Comments GLUBED (test code = GLUBED) 114 MG/DL 70-110 H Performed by certified hydraulic press in operator at [facility] [id number] 22:05:00* Test Item Value Reference Range Interpretation Comments GLUBED (test code = GLUBED) 166 MG/DL 70-110 H Performed by certified hydraulic press in operator at [facility] [id number] 22:05:00* Test Item Value Reference Range Interpretation Comments GLUBED (test code = GLUBED) 154 MG/DL 70-110 H Performed by certified hydraulic press in operator at [facility] [id number] 22:05:00* Test Item Value Reference Range Interpretation Comments GLUBED (test code = GLUBED) 133 MG/DL 70-110 H Performed by certified hydraulic press in operator at [facility] [id number] 12:28:00* Test Item Value Reference Range Interpretation Comments GLUBED (test code = GLUBED) 147 MG/DL 70-110 H Performed by certified hydraulic press in operator at [facility] [id number] 08:31:00* Test Item Value Reference Range Interpretation Comments GLUBED (test code = GLUBED) 144 MG/DL 70-110 H Performed by certified hydraulic press in operator at [facility] [id number] 21:01:00* Test Item Value Reference Range Interpretation Comments GLUBED (test code = GLUBED) 168 MG/DL 70-110 H Performed by certified hydraulic press in operator at [facility] [id number] 21:01:00* Test Item Value Reference Range Interpretation Comments GLUBED (test code = GLUBED) 154 MG/DL 70-110 H Performed by certified hydraulic press in operator at [facility] [id number] 14:38:00* Test Item Value Reference Range Interpretation Comments GLUBED (test code = GLUBED) 228 MG/DL 70-110 H Performed by certified hydraulic press in operator at [facility] [id number] 14:38:00* Test Item Value Reference Range Interpretation Comments GLUBED (test code = GLUBED) 141 MG/DL 70-110 H Performed by certified hydraulic press in operator at [facility] [id number] 14:37:00* Test Item Value Reference Range Interpretation Comments GLUBED (test code = GLUBED) 132 MG/DL 70-110 H Performed by certified hydraulic press in operator at [facility] [id number] 14:37:00* Test Item Value Reference Range Interpretation Comments GLUBED (test code = GLUBED) 160 MG/DL 70-110 H Performed by certified hydraulic press in operator at [facility] [id number] 08:50:00* Test Item Value Reference Range Interpretation Comments GLUBED (test code = GLUBED) 188 MG/DL 70-110 H Performed by certified hydraulic press in operator at [facility] BASIC METABOLIC [id number] 08:44:00* Test Item Value Reference Range Interpretation [...] CA) 8.7 mg/dL 8.0-10.5 N CBC W/AUTO [id number] 07:50:00* Test Item Value Reference Range Interpretation [...] DIFF REQUIRED (test code = MDIFF) NO [id number] 18:32:00* Test Item Value Reference Range Interpretation Comments GLUBED (test code = GLUBED) 131 MG/DL 70-110 H Performed by certified hydraulic press in operator at [facility] [id number] 09:03:00* Test Item Value Reference Range Interpretation Comments GLUBED (test code = GLUBED) 142 MG/DL 70-110 H Performed by certified hydraulic press in operator at [facility] [id number] 20:37:00* Test Item Value Reference Range Interpretation Comments GLUBED (test code = GLUBED) 152 MG/DL 70-110 H Performed by certified hydraulic press in operator at [facility] [id number] 23:07:00* Test Item Value Reference Range Interpretation Comments GLUBED (test code = GLUBED) 137 MG/DL 70-110 H Performed by certified hydraulic press in operator at [facility] [id number] 21:05:00* Test Item Value Reference Range Interpretation Comments GLUBED (test code = GLUBED) 170 MG/DL 70-110 H Performed by certified hydraulic press in operator at [facility] [id number] 18:46:00* Test Item Value Reference Range Interpretation Comments GLUBED (test code = GLUBED) 160 MG/DL 70-110 H Performed by certified hydraulic press in operator at [facility] [id number] 12:53:00* Test Item Value Reference Range Interpretation Comments GLUBED (test code = GLUBED) 146 MG/DL 70-110 H Performed by certified hydraulic press in operator at [facility] [id number] 09:13:00* Test Item Value Reference Range Interpretation Comments GLUBED (test code = GLUBED) 151 MG/DL 70-110 H Performed by certified hydraulic press in operator at [facility] [id number] 21:05:00* Test Item Value Reference Range Interpretation Comments GLUBED (test code = GLUBED) 162 MG/DL 70-110 H Performed by certified hydraulic press in operator at [facility] [id number] 12:41:00* Test Item Value Reference Range Interpretation Comments GLUBED (test code = GLUBED) 153 MG/DL 70-110 H Performed by certified hydraulic press in operator at [facility] [id number] 08:23:00* Test Item Value Reference Range Interpretation Comments GLUBED (test code = GLUBED) 182 MG/DL 70-110 H Performed by certified hydraulic press in operator at [facility] [id number] 21:41:00* Test Item Value Reference Range Interpretation Comments GLUBED (test code = GLUBED) 165 MG/DL 70-110 H Performed by certified hydraulic press in operator at [facility] [id number] 21:10:00* Test Item Value Reference Range Interpretation Comments GLUBED (test code = GLUBED) 138 MG/DL 70-110 H Performed by certified hydraulic press in operator at [facility] [id number] 13:03:00* Test Item Value Reference Range Interpretation Comments GLUBED (test code = GLUBED) 144 MG/DL 70-110 H Performed by certified hydraulic press in operator at [facility] [id number] 08:18:00* Test Item Value Reference Range Interpretation Comments GLUBED (test code = GLUBED) 216 MG/DL 70-110 H Performed by certified hydraulic press in operator at [facility] [id number] 21:29:00* Test Item Value Reference Range Interpretation Comments GLUBED (test code = GLUBED) 186 MG/DL 70-110 H Performed by certified hydraulic press in operator at [facility] [id number] 17:49:00* Test Item Value Reference Range Interpretation Comments GLUBED (test code = GLUBED) 149 MG/DL 70-110 H Performed by certified hydraulic press in operator at [facility] [id number] 17:49:00* Test Item Value Reference Range Interpretation Comments GLUBED (test code = GLUBED) 139 MG/DL 70-110 H Performed by certified hydraulic press in operator at [facility] [id number] 08:43:00* Test Item Value Reference Range Interpretation Comments GLUBED (test code = GLUBED) 164 MG/DL 70-110 H Performed by certified hydraulic press in operator at [facility] [id number] 21:11:00* Test Item Value Reference Range Interpretation Comments GLUBED (test code = GLUBED) 155 MG/DL 70-110 H Performed by certified hydraulic press in operator at [facility] [id number] 16:56:00* Test Item Value Reference Range Interpretation Comments GLUBED (test code = GLUBED) 164 MG/DL 70-110 H Performed by certified hydraulic press in operator at [facility] [id number] 11:54:00* Test Item Value Reference Range Interpretation Comments GLUBED (test code = GLUBED) 190 MG/DL 70-110 H Performed by certified hydraulic press in operator at [facility] [id number] 08:27:00* Test Item Value Reference Range Interpretation Comments GLUBED (test code = GLUBED) 220 MG/DL 70-110 H Performed by certified hydraulic press in operator at [facility] [id number] 20:58:00* Test Item Value Reference Range Interpretation Comments GLUBED (test code = GLUBED) 155 MG/DL 70-110 H Performed by certified hydraulic press in operator at [facility] [id number] 16:47:00* Test Item Value Reference Range Interpretation Comments GLUBED (test code = GLUBED) 171 MG/DL 70-110 H Performed by certified hydraulic press in operator at [facility] [id number] 12:06:00* Test Item Value Reference Range Interpretation Comments GLUBED (test code = GLUBED) 186 MG/DL 70-110 H Performed by certified hydraulic press in operator at [facility] [id number] 08:39:00* Test Item Value Reference Range Interpretation Comments GLUBED (test code = GLUBED) 238 MG/DL 70-110 H Performed by certified hydraulic press in operator at [facility] BASIC METABOLIC [id number] 08:27:00* Test Item Value Reference Range Interpretation [...] code = CA) 8.3 mg/dL 8.0-10.5 N [id number] 02:26:00* Test Item Value Reference Range Interpretation Comments GLUBED (test code = GLUBED) 182 MG/DL 70-110 H Performed by certified hydraulic press in operator at [facility] [id number] 21:22:00* Test Item Value Reference Range Interpretation Comments GLUBED (test code = GLUBED) 189 MG/DL 70-110 H Performed by certified hydraulic press in operator at [facility] [id number] 16:44:00* Test Item Value Reference Range Interpretation Comments GLUBED (test code = GLUBED) 168 MG/DL 70-110 H Performed by certified hydraulic press in operator at [facility] [id number] 12:37:00* Test Item Value Reference Range Interpretation Comments GLUBED (test code = GLUBED) 205 MG/DL 70-110 H Performed by certified hydraulic press in operator at [facility] [id number] 08:23:00* Test Item Value Reference Range Interpretation Comments GLUBED (test code = GLUBED) 250 MG/DL 70-110 H Performed by certified hydraulic press in operator at [facility] [id number] 06:02:00* Test Item Value Reference Range Interpretation Comments GLUBED (test code = GLUBED) 205 MG/DL 70-110 H Performed by certified hydraulic press in operator at [facility] [id number] 01:06:00* Test Item Value Reference Range Interpretation Comments GLUBED (test code = GLUBED) 218 MG/DL 70-110 H Performed by certified hydraulic press in operator at [facility] [id number] 21:01:00* Test Item Value Reference Range Interpretation Comments GLUBED (test code = GLUBED) 212 MG/DL 70-110 H Performed by certified hydraulic press in operator at [facility] [id number] 17:23:00* Test Item Value Reference Range Interpretation Comments GLUBED (test code = GLUBED) 228 MG/DL 70-110 H Performed by certified hydraulic press in operator at [facility] CBC W/MANUAL [id number] 17:21:00* Test Item Value Reference Range Interpretation [...] code = PLTMORPH) FEW LARGE PLTS SEEN [id number] 11:39:00* Test Item Value Reference Range Interpretation Comments GLUBED (test code = GLUBED) 293 MG/DL 70-110 H Performed by certified hydraulic press in operator at [facility] [id number] 08:39:00* Test Item Value Reference Range Interpretation Comments GLUBED (test code = GLUBED) 280 MG/DL 70-110 H Performed by certified hydraulic press in operator at [facility] PROTHROMBIN [id number] 07:21:00* Test Item Value Reference Range Interpretation [...] Infarction (to prevent recurrent infarct). THROMBOPLASTIN TIME [id number] 07:21:00* Test Item Value Reference Range Interpretation Comments THROMBOPLASTIN TIME PARTIAL (test code = PTT) 33.4 Seconds 25.0-39. 5 N Therapeutic Range: 50.4 - 88.3 Seconds Effective 06/03/2018 COMPREHENSIVE METABOLIC [id number] 07:16:00* Test Item Value Reference Range Interpretation [...] = LDL) 89 mg/dL 0-100 N <100 OBETTBE900-363 NEAR OPTIMAL/ABOVE [id number] TMDPCDJSNI343-041 HIGH>SX=231 VERY HIGH*Guidelines provided by the National Cholesterol EducationProgram Adult Treatment Panel III [id number] 07:04:00* Test Item Value Reference Range Interpretation Comments GLUBED (test code = GLUBED) 299 MG/DL 70-110 H Performed by certified hydraulic press in operator at [facility] CBC W/MANUAL [id number] 06:55:00* Test Item Value Reference Range Interpretation [...] = PLTEST) THOUSAND ADEQUATE - CT ANGIO [id number] 21:42:00 Name: ARANZA LOPEZ [facility] : 1970 Age/S: 48 / M [address] [place] [address] Blvd Unit #: [id number] Loc: [place] [address] Phys: Camila Richards MD Acct: [id number] Dis Date: Status: ADM IN PHONE #: [phone] Exam Date: 08/05/20182109 FAX #: [phone] Reason: stroke EXAMS: CPT CODE: [id number] CT ANGIO NECK 89993 CTA HEAD, CTA NECK INDICATION:stroke. TECHNIQUE: Isovue [...] 1 Signed Report (CONTINUED) Name: ARANZA LOPEZ [facility] : 1970 Age/S: 48 / M [address] [place] [address] Unit #: [id number] Loc: [place] [address] Phys: Camila Richards MD Acct: [id number] Dis Date: Status: ADM IN PHONE #: [phone] Exam Date: 08/05/20182109 FAX #: [phone] Reason: stroke EXAMS: CPT CODE: [id number] CT ANGIO NECK [address]375 <Continued> The internal carotid arteries reveal no [...] 2 Signed Report (CONTINUED) Name: ARANZA LOPEZ [facility] Rosendo Coronel : 1970 Age/S: 48 / M [address] [place] [address] Unit #: [id number] Loc: [place] [address] Phys: Camila Richards MD Acct: [id number] Dis Date: Status: ADM IN PHONE #: [phone] Exam Date: 08/05/20182109 FAX #: [phone] Reason: stroke EXAMS: CPT CODE: [id number] CT ANGIO NECK 63986 < Continued> CTA HEAD: 1. There is [...] stenosis at 2141 Reported and signed by: Suleman Welch D.O. CC: Deepak Ruby MD; Camila Richards MD; Pepito Moore MD; Blake Cruz M.D. Technologist:RT Tyrone(R)(CT) CTDI: DLP: Trnscb Date/Time: 08/05/2018 (2141) [email or web address] Orig Print D/T: S: 08/05/2018 (0) PAGE 3 Signed Report - CT ANGIO [id number] 21:42:00 Name: ARANZA LOPEZ [facility] : 1970 Age/S: 48 / M [address] [place] [address] Unit #: [id number] Loc: [place] [address] Phys: Camila Richards MD Acct: [id number] Dis Date: Status: ADM IN PHONE #: [phone] Exam Date: 08/05/20182109 FAX #: [phone] Reason: stroke EXAMS: CPT CODE: [id number] CT ANGIO HEAD [address]8581 CTA HEAD, CTA NECK INDICATION:stroke. TECHNIQUE: Isovue [...] 1 Signed Report (CONTINUED) Name: ARANZA LOPEZ [facility] : 1970 Age/S: 48 / M [address] [place] [address] Blvd Unit #: [id number] Loc: [place] [address] Phys: Camila Richards MD Acct: [id number] Dis Date: Status: ADM IN PHONE #: [phone] Exam Date: 08/05/20182109 FAX #: [phone] Reason: stroke EXAMS: CPT CODE: [id number] CT ANGIO HEAD [address]674 <Continued> The internal carotid arteries reveal no [...] 2 Signed Report (CONTINUED) Name: ARANZA LOPEZ [facility] : 1970 Age/S: 48 / M [address] [place] [address] Blvd Unit #: [id number] Loc: [place] [address] Phys: Camila Richards MD Acct: [id number] Dis Date: Status: ADM IN PHONE #: [phone] Exam Date: 08/05/20182109 FAX #: [phone] Reason: stroke EXAMS: CPT CODE: [id number] CT ANGIO HEAD 69290 < Continued> CTA HEAD: 1. There is [...] MD; Pepito Moore MD; Blake Cruz M.D. Technologist:Maxine Mcbride RT(R)(CT) CTDI: DLP: Trnscb Date/Time: 08/05/2018 (2141) [email or web address] Orig Print D/T: S: 08/05/2018 (6422) PAGE 3 Signed Report - CT HEAD/BRAIN W/O CONT 2018-08-05 21:26:00 Name: ARANZA LOPEZ [place] : 1970 Age/S: 48 / M [address] [place] [address] Unit #: [id number] Loc: [place] [address] Phys: Camila Richards MD Acct: [id number] Dis Date: Status: ADM IN PHONE #: [phone] Exam Date: 08/05/20182110 FAX #: [phone] Reason: stroke EXAMS: CPT CODE: [id number] CT HEAD/BRAIN W/O CONT [address] HEAD INDICATION: stroke. TECHNIQUE: Unenhanced [...] intake, a paraneoplastic or neurodegenerative syndrome. at 2126 Reported and signed by: Suleman Welhc D.O. PAGE 1 Signed Report (CONTINUED) Name: ARANZA LOPEZ [place] : 1970 Age/S: 48 / M [address] [place] [address] Blvd Unit #: [id number] Loc: [place] [address] Phys: Camila Richards MD Acct: [id number] Dis Date: Status: ADM IN PHONE #: [phone] Exam Date: 08/05/20182110 FAX #: [phone] Reason: stroke EXAMS: CPT CODE: [id number] CT HEAD/BRAIN W/O CONT 50966 < Continued> CC: Deepak Ruby MD; Camila Richards MD; Pepito Moore MD; Blake Cruz M.D. Technologist:Maxine Mcbride, (R)(CT) CTDI: DLP: Trnscb Date/Time: 08/05/2018 (2125) [email or web address] Orig Print D/T: S: 08/05/2018 (2128) PAGE 2 Signed Report [id number] 19:47:00* Test Item Value Reference Range Interpretation Comments GLUBED (test code = GLUBED) 223 MG/DL 70-110 H Performed by certified hydraulic press in operator at [facility] [id number] 17:02:00* Test Item Value Reference Range Interpretation Comments GLUBED (test code = GLUBED) 194 MG/DL 70-110 H Performed by certified hydraulic press in operator at [facility] CBC W/AUTO [id number] 14:52:00* Test Item Value Reference Range Interpretation [...] (test code = MDIFF) NO BASIC METABOLIC [id number] 14:37:00* Test Item Value Reference Range Interpretation [...] code = CA) 8.4 mg/dL 8.0-10.5 N [id number] 12:05:00* Test Item Value Reference Range Interpretation Comments GLUBED (test code = GLUBED) 221 MG/DL 70-110 H Performed by certified hydraulic press in operator at [facility] [id number] 07:02:00* Test Item Value Reference Range Interpretation [...] 3 troponins total (including troponin done in ED)[id number] 06:03:00* Test Item Value Reference Range Interpretation Comments GLUBED (test code = GLUBED) 189 MG/DL 70-110 H Performed by certified hydraulic press in operator at [facility] [id number] 03:19:00* Test Item Value Reference Range Interpretation [...] V 2018-08-04 23:51:00 FAX: Ankita Billingsley MD [phone] [place]: St: REG FAX: Blake Cazares MD [phone] Name: ARANZA LOPEZ [facility] : 1970 Age/S: 48/M [address] [place] [address] Blvd Unit #: [id number] Loc: [place] [address] Phys: Dexter Montoya MD Acct: [id number] Dis Date: Status: REG ER PHONE #: [phone] Exam Date: 08/04/2018 2346 FAX #: [phone] Reason: stroke EXAMS: CPT CODE: [id number] XR CHEST 1 V 46971 EXAM: CR, XR chest one view: 08/04/2018, 2339 hours HISTORY: stroke TECHNIQUE: 1 view of the chest. COMPARISON: 07/26/2018, 2119 hours FINDINGS: Trachea is midline. Sternotomy clips are present. Heart is enlarged. Pulmonary vascularity is congested. There is no airspace consolidation, pleural effusion or pneumothorax. Osseous structures are stable. IMPRESSION: Findings suggestive of mild congestive cardiac failure. SL: [JSYED-H] at 4209 Reported and signed by: Jorje Blackmon M.D. CC: Deepak Ruby MD; Blake Cruz M.D. Technologist: RT Landon(Saritha) Trnscrd Date/Time/By: 08/04/2018 (4627) : By: [email or web address] Orig Print D/T: S: 08/04/2018 (4356) PAGE 1 Signed Report TROPONIN-I [id number] 23:34:00* Test Item Value Reference Range Interpretation Comments TROPONIN-I RAPID (test code = TROPIRAP) 0.00 ng/mL 0.00-0.08 N Performed by certified hydraulic press in operator at [facility] Negative: <= 0.08 Positive: >= 0.09An elevated troponin value alone is not sufficient todiagnose a myocardial infarction. Rather, the patient sclinical presentation (history, physical exam) and ECGshould be used in conjunction with troponin in thediagnostic evaluation of suspected myocardial infarction. Aserial sampling protocol is recommended to facilitate the identification of temporal changes in troponin levels characteristic of SD. CHEMISTRY 8 [id number] 23:30:00* Test Item Value Reference Range Interpretation [...] code = GFRBED) 69 ML/MIN CHEMISTRY 8 [id number] 23:30:00* Test Item Value Reference Range Interpretation Comments ISTAT-SODIUM (test code = NAP) 138 MMOL/L 134-147 N ISTAT-POTASSIUM (test code = KP) 3.2 MMOL/L 3.4-5.0 L ISTAT-CHLORIDE (test code = CLP) 97 MMOL/L 100-108 L Performed by certified hydraulic press in operator at [facility] ISTAT CARBON DIOXIDE (test code = ISTAT-CO2) 26.0 mmol/L 21-33 N ISTAT CALCIUM IONIZED (test code = ISTAT-KAREEM) 1.12 MG/DL 1.12-1.3 2 N ISTAT-GLUCOSE (test code = GLUP) 175 MG/DL 70-110 H ISTAT-BUN (test code = BUNP) 16 MG/DL 7-18 N BEDSIDE CREATININE (test code = CREATBED) 1.2 MG/DL 0.6-1.3 N GLOMERULAR FILTRATION RATE POC (test code = GFRBED) 69 ML/MIN PROTHROMBIN [id number] 23:28:00* Test Item Value Reference Range Interpretation [...] Infarction (to prevent recurrent infarct). THROMBOPLASTIN TIME [id number] 23:28:00* Test Item Value Reference Range Interpretation Comments THROMBOPLASTIN TIME PARTIAL (test code = PTT) 39.6 Seconds 25.0-39. 5 H Therapeutic Range: 50.4 - 88.3 Seconds Effective 06/03/2018 PROTHROMBIN [id number] 23:26:00* Test Item Value Reference Range Interpretation [...] Infarction (to prevent recurrent infarct). THROMBOPLASTIN TIME [id number] 23:26:00* Test Item Value Reference Range Interpretation Comments THROMBOPLASTIN TIME PARTIAL (test code = PTT) Seconds 25.0-39. 5 CBC W/O [id number] 23:21:00* Test Item Value Reference Range Interpretation [...] fL 7.0-9.0 H - CT HEAD/BRAIN W/O [id number] 23:18:00 Name: ARANZA LOPEZ [facility] : 1970 Age/S: 48 / M [address] [place] [address] Unit #: [id number] Loc: [place] [address] Phys: Dexter Montoya MD Acct: [id number] Dis Date: Status: REG ER PHONE #: [phone] Exam Date: 08/04/2018 1032 FAX #: [phone] Reason: LEFT HEMIPARESIS EXAMS: CPT CODE: [id number] CT HEAD/BRAIN W/O CONT 15233 CT HEAD WITHOUT CONTRAST INDICATION: Left hemiparesis. [...] RESULT C ODE: CVR SL: SG-H at 8933 Reported and signed by: Bora Osborn M.D. PAGE 1 Signed Report (CONTINUED) Name: MANDO LOPEZ [facility] : 1970 Age /S: 48 / M [address] [place] [address] Unit #: [id number] Loc: [place] [address] Phys: Dexter Montoya MD Acct: [id number] Dis Date: Status: REG ER PHONE #: [phone] Exam Date: 08/04/2018 2254 FAX #: [phone] Reason: LEFT HEMIPARESIS EXAMS: CPT CODE: [id number] CT HEAD/BRAIN W/O CONT 28042 <Continued> CC: Deepak Ruby MD; Blake Cruz M.D. Technologist:RT Azul(R) CTDI: DLP: Trnscb Date/Time: 08/04/2018 (2318) [email or web address] Orig Print D/T: S: 08/04/2018 (3292) PAGE 2 Signed Report [id number] 07:10:00* Test Item Value Reference Range Interpretation Comments GLUBED (test code = GLUBED) 176 MG/DL 70-110 H Performed by certified hydraulic press in operator at [facility] [id number] 08:33:00* Test Item Value Reference Range Interpretation Comments GLUBED (test code = GLUBED) 197 MG/DL 70-110 H Performed by certified hydraulic press in operator at [facility] [id number] 21:03:00* Test Item Value Reference Range Interpretation Comments GLUBED (test code = GLUBED) 182 MG/DL 70-110 H Performed by certified hydraulic press in operator at [facility] [id number] 21:03:00* Test Item Value Reference Range Interpretation Comments GLUBED (test code = GLUBED) 200 MG/DL 70-110 H Performed by certified hydraulic press in operator at [facility] [id number] 21:03:00* Test Item Value Reference Range Interpretation Comments GLUBED (test code = GLUBED) 249 MG/DL 70-110 H Performed by certified hydraulic press in operator at [facility] [id number] 21:03:00* Test Item Value Reference Range Interpretation Comments GLUBED (test code = GLUBED) 217 MG/DL 70-110 H Performed by certified hydraulic press in operator at [facility] [id number] 18:13:00* Test Item Value Reference Range Interpretation Comments GLUBED (test code = GLUBED) 234 MG/DL 70-110 H Performed by certified hydraulic press in operator at [facility] PROCALCITONIN (PCT)2018-07-29 09:18:00* Test Item Value Reference [...] any concentrations <2 ng/mL are obtained. T4 [id number] 22:42:00* Test Item Value Reference Range Interpretation Comments T4 FREE (test code = T4F) 1.0 ng/dL 0.77-1.61 N THYROID STIMULATING [id number] 22:42:00* Test Item Value Reference Range Interpretation Comments THYROID STIMULATING HORMONE (test code = TSH) 3.48 0.42-5.4 7 N Results in flor- International Units/mL HGBA1C%2018-07-28 22:40:00* Test Item Value Reference Range Interpretation Comments HGBA1C% (test code = HGBA1C%) 8.5 %A1C 4.8-6.0 H BASIC METABOLIC [id number] 22:34:00* Test Item Value Reference Range Interpretation [...] code = CA) 8.8 mg/dL 8.0-10.5 N [id number] 20:59:00* Test Item Value Reference Range Interpretation Comments GLUBED (test code = GLUBED) 155 MG/DL 70-110 H Performed by certified hydraulic press in operator at [facility] [id number] 17:18:00* Test Item Value Reference Range Interpretation Comments GLUBED (test code = GLUBED) 170 MG/DL 70-110 H Performed by certified hydraulic press in operator at [facility] [id number] 11:50:00* Test Item Value Reference Range Interpretation Comments GLUBED (test code = GLUBED) 280 MG/DL 70-110 H Performed by certified hydraulic press in operator at [facility] PROCALCITONIN (PCT)2018-07-28 09:45:00* Test Item Value Reference [...] if any concentrations <2 ng/mL are obtained. [id number] 08:14:00* Test Item Value Reference Range Interpretation Comments GLUBED (test code = GLUBED) 300 MG/DL 70-110 H Performed by certified hydraulic press in operator at [facility] [id number] 06:16:00* Test Item Value Reference Range Interpretation Comments GLUBED (test code = GLUBED) 367 MG/DL 70-110 H Performed by certified hydraulic press in operator at [facility] LACTIC ACID 2ND [id number] 05:35:00* Test Item Value Reference Range Interpretation Comments LACTIC ACID 2ND REPEAT (test code = LACT2) 3.0 mmol/L 0.4-1.9 H WHEN 0500 LABS ARE DUE 07/28/18 @0054 G. LAB [id number] 22:32:00* Test Item Value Reference Range Interpretation Comments GLUBED (test code = GLUBED) 399 MG/DL 70-110 H Performed by certified hydraulic press in operator at [facility] LACTIC ACID [id number] 22:30:00* Test Item Value Reference Range Interpretation Comments LACTIC ACID REPEAT (test code = LACTR) 3.6 mmol/l 0.4-1.9 H LACTIC [id number] 18:49:00* Test Item Value Reference Range Interpretation Comments LACTIC ACID (test code = LACT) 3.7 mmol/L 0.4-1.9 H RECOLLECTION WITH IZAIAH BUSTOS.PL4MKVW1M%2018-07-27 18:23:00* Test Item Value Reference Range Interpretation Comments HGBA1C% (test code = HGBA1C%) 8.6 %A1C 4.8-6.0 H [id number] 18:21:00* Test Item Value Reference Range Interpretation Comments GLUBED (test code = GLUBED) 406 MG/DL 70-110 H Performed by certified hydraulic press in operator at [facility] PROCALCITONIN (PCT)2018-07-27 17:26:00* Test Item Value Reference [...] concentrations <2 ng/mL are obtained. COMPREHENSIVE METABOLIC [id number] 16:43:00* Test Item Value Reference Range Interpretation [...] ALKP) 109 IUnit/L 20-125 N CBC W/AUTO [id number] 16:19:00* Test Item Value Reference Range Interpretation [...] DIFF REQUIRED (test code = MDIFF) NO [id number] 15:07:00* Test Item Value Reference Range Interpretation Comments GLUBED (test code = GLUBED) 481 MG/DL 70-110 H Performed by certified hydraulic press in operator at [facility] [id number] 15:07:00* Test Item Value Reference Range Interpretation Comments GLUBED (test code = GLUBED) 474 MG/DL 70-110 H Performed by certified hydraulic press in operator at [facility] [id number] 15:06:00* Test Item Value Reference Range Interpretation Comments GLUBED (test code = GLUBED) 547 MG/DL 70-110 H Performed by certified hydraulic press in operator at [facility] URINALYSIS [id number] 15:03:00* Test Item Value Reference Range Interpretation [...] SQU) 0-5 /HPF NONE SEEN UA CULT [id number] 15:03:00* Test Item Value Reference Range Interpretation Comments UA CULTURE NEEDED? (test code = UACULT) NO, WBC<10 Criteria Culture Chk Criteria not met, Urine Culture cancelled. URINALYSIS [id number] 14:53:00* Test Item Value Reference Range Interpretation [...] code = RBCU) RBC/HPF 0-3 UA CULT [id number] 14:53:00* Test Item Value Reference Range Interpretation Comments UA CULTURE NEEDED? (test code = UACULT) Criteria Culture Chk [id number] 14:10:00* Test Item Value Reference Range Interpretation Comments GLUBED (test code = GLUBED) 441 MG/DL 70-110 H Performed by certified hydraulic press in operator at [facility] [id number] 12:41:00* Test Item Value Reference Range Interpretation Comments GLUBED (test code = GLUBED) 392 MG/DL 70-110 H Performed by certified hydraulic press in operator at [facility] [id number] 10:46:00* Test Item Value Reference Range Interpretation Comments GLUBED (test code = GLUBED) 419 MG/DL 70-110 H Performed by certified hydraulic press in operator at [facility] [id number] 03:34:00* Test Item Value Reference Range Interpretation [...] troponin done in ED)DRUGS OF ABUSE SCREEN [id number] 01:12:00* Test Item Value Reference Range Interpretation [...] for non-medical purposes. DRUGS OF ABUSE SCREEN [id number] 01:02:00* Test Item Value Reference Range Interpretation [...] results shouldnot be used for non-medical purposes. [id number] 00:40:00* Test Item Value Reference Range Interpretation [...] total (including troponin done in ED)B-TYPE NATRIURETIC [id number] 21:56:00* Test Item Value Reference Range Interpretation Comments B-TYPE NATRIURETIC PEPTIDE (test code = BNP) 16.8 PG/ML 0-100 N BASIC METABOLIC [id number] 21:50:00* Test Item Value Reference Range Interpretation [...] CA) 8.2 mg/dL 8.0-10.5 N HEPATIC FUNCTION [id number] 21:50:00* Test Item Value Reference Range Interpretation [...] code = ALKP) 127 IUnit/L 20-125 H [id number] 21:50:00* Test Item Value Reference Range Interpretation Comments LIPASE (test code = LIP) 96 IUnit/L 73-393 N [id number] 21:50:00* Test Item Value Reference Range Interpretation Comments MAGNESIUM (test code = MAG) 2.00 mg/dL 1.8-2.4 N THYROID STIMULATING [id number] 21:50:00* Test Item Value Reference Range Interpretation Comments THYROID STIMULATING HORMONE (test code = TSH) 3.04 0.42-5.4 7 N Results in flor- International Units/mL [id number] 21:50:00* Test Item Value Reference Range Interpretation Comments TROPONIN-I (test code = TROPI) < 0.015 ng/mL 0.000-0.045 N Negative: <= 0.045 Positive: >= 0.046 Correlation with serial results, other cardiac markers andclinical findings is necessary to determine the clinicalsignificance of this result. Results using different methodologies should not be comparedto one another as quantitative results may vary by method. - XR CHEST 1 [id number] 21:48:00 FAX: Ankita Billingsley MD [phone] [place]: St: ADM FAX: Anders Huertas MD [phone] FAX: Blake Cazares MD [phone] Name: ARANZA LOPEZ [facility] : 1970 Age/S: 48/M [address] [place] [address] Blvd Unit #: [id number] Loc: [place] [address] Phys: Anders Horowitz MD Acct: [id number] Dis Date: Status: ADM IN ONE #: [phone] Exam Date: 07/26/20182144 FAX #: [phone] Reason: Chest Pain EXAMS: CPT CODE: [id number] XR CHEST 1 V 42381 CHEST, SINGLE VIEW HISTORY: Chest pain Comparison made to chest x-ray. FINDINGS: The lungs are clear. The heart is enlarged. Pulmonary vascularity is prominent. No acute lung inf iltrate or pleural fluid. IMPRESSION: Congesti ve heart failure. SL:01 Electron ically Signed by Jose Luis Sanchez on 9 at 2148 Reported and signed by: Hollis tavarez M.D. CC: Deepak Ruby MD; Anders Horowitz MD; Blake Cruz M.D. Technologist: VIDAL Ramirez RT(R); Elisa Zeng, RT(R) Trnscrd Date/Time/By: 07/26/2018 (2147) : By: Deb Orig Print D/T: S: 07/26/2018 (5547) PAGE 1 Signed Report BASIC METABOLIC [id number] 21:44:00* Test Item Value Reference Range Interpretation [...] CA) 8.2 mg/dL 8.0-10.5 N HEPATIC FUNCTION [id number] 21:44:00* Test Item Value Reference Range Interpretation [...] code = ALKP) 127 IUnit/L 20-125 H [id number] 21:44:00* Test Item Value Reference Range Interpretation Comments LIPASE (test code = LIP) 96 IUnit/L 73-393 N [id number] 21:44:00* Test Item Value Reference Range Interpretation Comments MAGNESIUM (test code = MAG) 2.00 mg/dL 1.8-2.4 N THYROID STIMULATING [id number] 21:44:00* Test Item Value Reference Range Interpretation Comments THYROID STIMULATING HORMONE (test code = TSH) 0.42-5.4 7 [id number] 21:44:00* Test Item Value Reference Range Interpretation Comments TROPONIN-I (test code = TROPI) < 0.015 ng/mL 0.000-0.045 N Negative: <= 0.045 Positive: >= 0.046 Correlation with serial results, other cardiac markers andclinical findings is necessary to determine the clinicalsignificance of this result. Results using different methodologies should not be comparedto one another as quantitative results may vary by method. PROTHROMBIN [id number] 21:39:00* Test Item Value Reference Range Interpretation [...] Infarction (to prevent recurrent infarct). THROMBOPLASTIN TIME [id number] 21:39:00* Test Item Value Reference Range Interpretation Comments THROMBOPLASTIN TIME PARTIAL (test code = PTT) 39.6 Seconds 25.0-39. 5 H Therapeutic Range: 50.4 - 88.3 Seconds Effective 06/03/2018 CBC W/AUTO [id number] 21:32:00* Test Item Value Reference Range Interpretation [...] REQUIRED (test code = MDIFF) NO TROPONIN-I [id number] 23:49:00* Test Item Value Reference Range Interpretation Comments TROPONIN-I RAPID (test code = TROPIRAP) 0.00 ng/mL 0.00-0.08 N Performed by certified hydraulic press in operator at [facility] Negative: <= 0.08 Positive: >= 0.09An elevated troponin value alone is not sufficient todiagnose a myocardial infarction. Rather, the patient sclinical presentation (history, physical exam) and ECGshould be used in conjunction with troponin in thediagnostic evaluation of suspected myocardial infarction. Aserial sampling protocol is recommended to facilitate the identification of temporal changes in troponin levels characteristic of SD. - XR CHEST 1 [id number] 22:47:00 FAX: Rodney Dubon MD [phone] [place]: St: [facility] FAX: Blake Cazares MD [phone] Name: ARANZA LOPEZ [facility] : 1970 Age/S: 48/M [address] [place] [address] Unit #: [id number] Loc: [place] [address] Phys: Rodney Dubon MD Acct: [id number] Dis Date: Status: REG ER PHONE #: [phone] Exam Date: 07/22/2018 2243 FAX #: [phone] Reason: Chest Pain EXAMS: CPT CODE: [id number] XR CHEST 1 V 96122 PROCEDURE: CHEST SINGLE VIEW INDICATION: Chest pain [...] referred to results of that study. SL: KLAkiH at 2847 Reported and signed by: Gonzalo Cespedes M.D. CC: Rodney Dubon MD; Blake Cruz M.D. Technologist: RT Kaylyn(Saritha) Trnscrd Date/Time/By: 07/22/2018 (2246) : By: Aimee Orig Print D/T: S: 07/22/2018 (1016) PAGE 1 Signed Report - CT ANGIO [id number] 22:46:00 Name: ARANZA LOPEZ [facility] : 1970 Age/S: 48 / M [address] [place] [address] Blvd Unit #: [id number] Loc: [place] [address] Phys: Rodney Dubon MD Acct: [id number] Dis Date: Status: REG ER PHONE #: [phone] Exam Date: 07/22/20182210 FAX #: [phone] Reason: Chest Pain EXAMS: CPT CODE: [id number] CT ANGIO CHEST 05662 PROCEDURE: CTA CHEST INDICATION: Chest pain. History [...] 1 Signed Report (CONTINUED) Name: ARANZA LOPEZ [facility] : 1970 Age/S: 48 / M [address] [place] [address] Blvd Unit #: [id number] Loc: [place] [address] Phys: Rodney Dubon MD Acct: [id number] Dis Date: Status: REG ER PHONE #: [phone] Exam Date: 07/22/20182210 FAX #: [phone] Reason: Chest Pain EXAMS: CPT CODE: [id number] CT ANGIO CHEST 12291 < Continued> MUSCULOSKELETAL: Bilateral gynecomastia. Healed median [...] 5. Stable splenomegaly. 6. Hepatic steatosis. SL: VERENICE at 2246 Reported and signed by: Gonzalo Cespedes M.D. CC: Rodney Dubon MD; Blake Cruz M.D. Technologist:Alicia Lau, RT(R) CTDI: DLP: Trnscb Date/Time: 07/22/2018 (2245) Aimee Orig Print D/T: S: 07/22/2018 (7589) PAGE 2 Signed Report B- TYPE NATRIURETIC [id number] 22:28:00* Test Item Value Reference Range Interpretation Comments B-TYPE NATRIURETIC PEPTIDE (test code = BNP) 16.6 PG/ML 0-100 N - DUP VEIN [id number] 22:18:00 Name: ARANZA LOPEZ [facility] : 1970 Age/S: 48 / M [address] [place] [address] Unit #: [id number] Loc: [place] [address] Phys: Rodney Dubon MD Acct: [id number] Dis Date: Status: REG ER PHONE #: [phone] Exam Date: 07/22/20182207 FAX #: [phone] Reason: BLE swelling, worse on L, r/o DVT EXAMS: CPT CODE: [id number] DUP VEIN RUBEN 86657 PROCEDURE: BILATERAL LOWER EXTREMITY VENOUS ULTRASOUND INDICATION: [...] (2217) Aimee Orig Print D/T: S: 07/22/2018 (2859) Probe: PAGE 1 Signed Report CBC W/AUTO [id number] 22:02:00* Test Item Value Reference Range Interpretation [...] REQUIRED (test code = MDIFF) NO TROPONIN-I [id number] 21:58:00* Test Item Value Reference Range Interpretation Comments TROPONIN-I RAPID (test code = TROPIRAP) 0.00 ng/mL 0.00-0.08 N Performed by certified hydraulic press in operator at [facility] Negative: <= 0.08 Positive: >= 0.09An elevated troponin value alone is not sufficient todiagnose a myocardial infarction. Rather, the patient sclinical presentation (history, physical exam) and ECGshould be used in conjunction with troponin in thediagnostic evaluation of suspected myocardial infarction. Aserial sampling protocol is recommended to facilitate the identification of temporal changes in troponin levels characteristic of SD. CHEMISTRY 8 [id number] 21:51:00* Test Item Value Reference Range Interpretation [...] code = GFRBED) 69 ML/MIN CHEMISTRY 8 [id number] 21:51:00* Test Item Value Reference Range Interpretation Comments ISTAT-SODIUM (test code = NAP) 138 MMOL/L 134-147 N ISTAT-POTASSIUM (test code = KP) 3.6 MMOL/L 3.4-5.0 N ISTAT-CHLORIDE (test code = CLP) 97 MMOL/L 100-108 L Performed by certified hydraulic press in operator at [facility] ISTAT CARBON DIOXIDE (test code = ISTAT-CO2) 27.0 mmol/L 21-33 N ISTAT CALCIUM IONIZED (test code = ISTAT-KAREEM) 1.11 MG/DL 1.12-1.3 2 L ISTAT-GLUCOSE (test code = GLUP) 295 MG/DL 70-110 H ISTAT-BUN (test code = BUNP) 20 MG/DL 7-18 H BEDSIDE CREATININE (test code = CREATBED) 1.2 MG/DL 0.6-1.3 N GLOMERULAR FILTRATION RATE POC (test code = GFRBED) 69 ML/MIN [id number] 10:56:00* Test Item Value Reference Range Interpretation Comments TROPONIN-I (test code = TROPI) <0.015 ng/mL 0-0.045 N COMMENTS TO EDUCATIONAL DIAGNOSTICIAN: COLLECT 3 HOURS AFTER PREVIOUS [id number] 04:30:00* Test Item Value Reference Range Interpretation Comments TROPONIN-I (test code = TROPI) <0.015 ng/mL 0-0.045 N COMMENTS TO EDUCATIONAL DIAGNOSTICIAN: COLLECT 3 HOURS AFTER PREVIOUS SAMPLE- CT UP EXTREM W/O CONT [id number] 02:33:00 Name: ARANZA LOPEZ [facility] : 1970 Age/S: 48 / M [address] [facility] Unit #: [id number] Loc: [place] [address] Phys: Jan Ly MD Acct: [id number] Dis Date: Status: ADM IN PHONE #: [phone] Exam Date: 06/13/2018 0135 FAX #: [phone] Reason: R elbow pain and abnormal xray EXAMS: CPT CODE: [id number] [place] EXTREM W/[place] [address] R16 EXAM: - CT UP EXTREM W/O [...] Jan Ly MD; Blake Cruz MD Technologi st:[facility] CT CTDI: DLP: Trnscb Date/Time: (023) [email or web address] Orig Print D/T: S: 06/13/2018 ( 0237) CTDI: DLP: PAGE 1 Signed Re [facility] BASIC METABOLIC [id number] 00:31:00* Test Item Value Reference Range Interpretation Comments SODIUM (test code = NA) 139 mmol/L 136-145 N POTASSIUM (test code = K) 2.9 mmol/L 3.5-5.1 L Re sults called to [id number] by V.LAB.JP1 06/13/18 0030Critical results verified and [...] code = CA) 8.6 mg/dL 8.5-10.1 N [id number] 00:31:00* Test Item Value Reference Range Interpretation Comments TROPONIN-I (test code = TROPI) <0.015 ng/mL 0-0.045 N B-TYPE NATRIURETIC [id number] 00:31:00* Test Item Value Reference Range Interpretation Comments B-TYPE NATRIURETIC PEPTIDE (test code = BNP) 32.04 pgram/mL 0-100 N PROTHROMBIN [id number] 00:13:00* Test Item Value Reference Range Interpretation [...] (2.5-3.5) IS PATIENT ON ANTICOAGULANTS? NTHROMBOPLASTIN TIME [id number] 00:13:00* Test Item Value Reference Range Interpretation Comments THROMBOPLASTIN TIME PARTIAL (test code = PTT) 37.3 seconds 25.0-36. 5 H IS PATIENT ON ANTICOAGULANTS? [id number] 00:13:00* Test Item Value Reference Range Interpretation [...] -Liver cirrhosis - IS PATIENT ON ANTICOAGULANTS? [facility] W/O [id number] 23:56:00* Test Item Value Reference Range Interpretation [...] N - XR ELBOW 3 + V [id number] 23:50:00 FAX: Jan Ly MD [phone] [place]: B St: [facility] FAX: Blake Cazares MD [phone] Name: ARANZA LOPEZ [facility] : 1970 Age/S: 48/M [address] Unit #: [id number] Loc: [place] [address] Phys: Jan Ly MD Acct: [id number] Dis Date: Status: REG ER PHONE #: [phone] Exam Date: 06/12/2018 2334 FAX #: [phone] Reason: elbow pain EXAMS: CPT CODE: [id number] XR ELBOW 3 + V RT 77599 - XR ELBOW 3 + V RT, [...] may reflect superimposition of s hadow at 5969 Reported and signed by: Ana Paula Seaman M.D. CC: Jan Ly MD; Blake Cruz MD Technologist: RT CELESTINE Trnscrd Date/Time/By: 06/12/2018 (5565) : By: [email or web address] Orig Print D/T: S: 06/12/2018 (1457) PAGE 1 Signed Report - CT HEAD/BRAIN W/O [id number] 23:45:00 [facility] 1970 [facility]S: 48 / M [address] Unit #: [id number] Loc: [place] [address] Phys: Jan Ly MD Acct: [id number] Dis Date: Status: REG ER PHONE #: [phone] Exam Date: 06/12/2018 2334 FAX #: [phone] Reason: Syncope EXAMS: CPT CODE: [id number] CT HEAD/BRAIN W/O CONT 37340 Exam: CT of the brain without contrast. [...] limited at the vertex is excluded from ouyqh-sn-tcwu (the exam terminates prematurely and portion of [...] limited at the vertex is excluded from ooonj-ct-kezr (the exam terminates prematurely and portion of the brain is excluded) No CT evidence of an acute intracranial hemorrhage or significant mass effect is visualized. A repeat evaluation to include the entirety of the brain would be beneficial when the patient able to hold still. E lectronically Signed by Ana Paula Seaman M.D. on 06/12/2018 at 2345 Reported and signed by: Ana Paula Seaman M.D. CC: Jan Ly MD; Blake Cruz MD Technologist:DEXTER STERLING CT CTDI: DLP: T rnscb Date/Time: 06/12/2018 (8725) [email or web address] Orig Print D /T: S: 06/12/2018 (9359) CTDI: DLP: PAGE 1 Signed Report - XR CHEST 1 [id number] 23:39:00 FAX: Jan Ly MD [phone] [place]: St: [facility] FAX: Blake Cazares MD [phone] Name: ARANZA LOPEZ [facility] : 1970 Age/S: 48/M [address] [facility] Unit #: [id number] Loc: [place] [address] Phys: Jan Ly MD Acct: [id number] Dis Date: Status: REG ER PHONE #: [phone] Exam Date: 06/12/2018 2334 FAX #: [phone] Reason: SYNCOPE EXAMS: CPT CODE: [id number] XR CHEST 1 V 87561 - XR CHEST 1 V, 06/12/2018 11:06 PM Reason For Examination: SYNCOPE Comparison: None available Location: R16 Findings LUNGS: Low lung volumes limit evaluation. Likely vascular congestion/mild edema PLEURA: No pleural effusions CARDIOMEDIASTINAL SILHOUETTE Mild enlargement IMPRESSION: Low lung volumes limit evaluation. Likely vascular congestion/mild edema and enlargement of the cardiac silhouette at 2339 Reported and signed by: Ana Paula Seaman M.D. CC: Jan Ly MD; Blake Cruz MD Technologist: Chyna Antunez Trnarrd Date/Time/By: 06/12/2018 (4824) : By: [email or web address] Orig Print D/T: S: 06/12/2018 (0295) PAGE 1 Signed Report GLUBED 2018-06-06 11:29:00* Test Item Value Reference Range Interpretation Comments GLUBED (test code = GLUBED) 199 mg/dL 74-106 H Performed by certified hydraulic press in operator at [facility] [id number] 07:55:00* Test Item Value Reference Range Interpretation Comments TROPONIN-I (test code = TROPI) 0.035 ng/mL 0-0.045 N COMMENTS TO EDUCATIONAL DIAGNOSTICIAN: COLLECT 3 HOURS AFTER PREVIOUS [id number] 07:27:00* Test Item Value Reference Range Interpretation Comments GLUBED (test code = GLUBED) 233 mg/dL 74-106 H Performed by certified hydraulic press in operator at [facility] [id number] 05:55:00* Test Item Value Reference Range Interpretation Comments TROPONIN-I (test code = TROPI) 0.062 ng/mL 0-0.045 HH Results called to [id number] by [email or web address] 06/06/18 0554Critical results verified and read back by Nurse? Y COMMENTS TO EDUCATIONAL DIAGNOSTICIAN: COLLECT 3 HOURS AFTER PREVIOUS SAMPLEBASIC METABOLIC [id number] 05:28:00* Test Item Value Reference Range Interpretation [...] CA) 8.2 mg/dL 8.5-10.1 L BASIC METABOLIC [id number] 05:25:00* Test Item Value Reference Range Interpretation [...] CALCIUM (test code = CA) mg/dL 8.5-10.1 [id number] 03:06:00* Test Item Value Reference Range Interpretation Comments GLUBED (test code = GLUBED) 298 mg/dL 74-106 H Performed by certified hydraulic press in operator at [facility] [id number] 01:47:00* Test Item Value Reference Range Interpretation Comments GLUBED (test code = GLUBED) 302 mg/dL 74-106 H Performed by certified hydraulic press in operator at [facility] - CTA [id number] 22:28:00 Name: ARANZA LOPEZ [facility] : 1970 Age/S: 48 / M [address] [facility] Unit #: [id number] Loc: [place] [address] Phys: STIVEN VASQUEZ MD Acct: [id number] Dis Date: Status: REG ER PHONE #: [phone] Exam Date: 06/05/2018 2220 FAX #: [phone] Reason: chest pain, prior PE, prior aortic dissection s EXAMS: CPT CODE: [id number] CTA CHEST 14999 REASON FOR EXAM: chest pain, prior PE, [...] . CTDI: DLP: Trnscb Date/Time: 06/05/2018 (2227) [email or web address] Orig Print D/T: S: 06/05/2018 (2231) CTDI: DLP: PAGE 1 Signed Report PROTHROMBIN [id number] 21:47:00* Test Item Value Reference Range Interpretation [...] (2.5-3.5) IS PATIENT ON ANTICOAGULANTS? NTHROMBOPLASTIN TIME [id number] 21:47:00* Test Item Value Reference Range Interpretation Comments THROMBOPLASTIN TIME PARTIAL (test code = PTT) 36.8 seconds 25.0-36. 5 H IS PATIENT ON ANTICOAGULANTS? NBASIC METABOLIC [id number] 21:46:00* Test Item Value Reference Range Interpretation Comments SODIUM (test code = NA) 138 mmol/L 136-145 N POTASSIUM (test code = K) 2.9 mmol/L 3.5-5.1 L Re sults called to [id number] by VAirspan NetworksLAB.[facility] 06/05/18 2146Critical results verified and read back [...] code = CA) 8.6 mg/dL 8.5-10.1 N [id number] 21:46:00* Test Item Value Reference Range Interpretation Comments MAGNESIUM (test code = MAG) 1.5 mg/dL 1.8-2.4 L [id number] 21:46:00* Test Item Value Reference Range Interpretation Comments TROPONIN-I (test code = TROPI) <0.015 ng/mL 0-0.045 N CBC W/O [id number] 21:25:00* Test Item Value Reference Range Interpretation [...] fL 6.7-11.0 N - XR CHEST 1 [id number] 21:25:00 FAX: Blake Cazares MD [phone] [place]: St: REG FAX: STIVEN VASQUEZ MD Name: ARANZA LOPEZ [facility] : 1970 Age/S: 48/M [address] [facility] Unit #: [id number] Loc: [place] [address] Phys: STIVEN VASQUEZ MD Acct: [id number] Dis Date: Status: REG ER PHONE #: [phone] Exam Date: 06/05/20182117 FAX #: [phone] Reason: CHEST PAIN EXAMS: CPT CODE: [id number] XR CHEST 1 V 29208 REASON FOR EXAM: CHEST PAIN EXAM ORDER [...] Trnscrd Date/Time/By: 06/05/2018 (2124) : By: nilson BECK Orig Print D/T: S: 06/05/2018 (2127) PAGE 1 Signed Report CBC W/O [id number] 21:23:00* Test Item Value Reference Range Interpretation [...] code = MPV) fL 6.7-11.0 Creatine Kinase [id number] 01:48:00* Test Item Value Reference Range Interpretation Comments Creatine Kinase MB (test code = 79525-8) 1.50 0-5.0 [facility]ase2019-04-11 01:48:00* Test Item Value Reference Range Interpretation Comments Lipase (test code = 3040-3) 41 8-78 [facility] WorthUrine [id number] 01:15:00* Test Item Value Reference Range Interpretation Comments Urine WBC (test code = 5821-4) 0-5 0-5 [facility] WorthUrine [id number] 01:15:00* Test Item Value Reference Range Interpretation Comments Urine RBC (test code = 39021-6) 0-5 0-5 [facility] WorthUrine [id number] 01:15:00* Test Item Value Reference Range Interpretation Comments Urine Bacteria (test code = 00677-8) NONE NONE [facility] WorthUrine Epithelial [id number] 01:15:00 * Test Item Value Reference Range Interpretation Comments Urine Epithelial Cells (test code = 61191-5) RARE NONE [facility] WorthB-Type Natriuretic Uilqkat1007-88-83 01:14:00* Test Item Value Reference Range Interpretation Comments B-Type Natriuretic Peptide (test code = 31167-1) 34.1 0-100 [facility] WorthTroponin [id number] 01:13:00* Test Item Value Reference Range Interpretation Comments Troponin I (test code = LZB8071) 0.002 0-0.300 [facility] WorthUrine [id number] 00:59:00* Test Item Value Reference Range Interpretation Comments Urine Color (test code = 5778-6) YELLOW YELLOW [facility] WorthUrine Uqwcggt2982-22-25 00:59:00* Test Item Value Reference Range Interpretation Comments Urine Clarity (test code = 01556-0) CLEAR CLEAR [facility] WorthUrine Specific Zdokpaz2069-78-74 00:59:00 * Test Item Value Reference Range Interpretation Comments Urine Specific [place] (test code = 5811-5) 1.010 1.010-1.02 5 [facility] WorthUrine [id number] 00:59:00* Test Item Value Reference Range Interpretation Comments Urine pH (test code = 12988-9) 7 5-7 [facility] WorthU[facility] Leukocyte Ozbbtmru7953-21-70 00:59:00* Test Item Value Reference Range Interpretation Comments Urine Leukocyte Esterase (test code = 5799-2) NEGATIVE NEGATIVE [facility] WorthUrine Fbndehm8967-27-63 00:59:00* Test Item Value Reference Range Interpretation Comments Urine Nitrite (test code = 74402-9) NEGATIVE NEGATIVE [facility] WorthU[facility] Gkiyrak8419-64-25 00:59:00* Test Item Value Reference Range Interpretation Comments Urine Protein (test code = 5804-0) NEGATIVE NEGATIVE [facility] WorthUrine Glucose (UA)2018-05-29 00:59:00* Test Item Value Reference Range Interpretation Comments Urine Glucose (UA) (test code = 2349-9) NEGATIVE NEGATIVE [facility] WorthUrine [id number] 00:59:00* Test Item Value Reference Range Interpretation Comments Urine Ketones (test code = 23334-6) NEGATIVE NEGATIVE [facility] WorthUrine Opiates [id number] 00:59:00* Test Item Value Reference Range Interpretation Comments Urine Opiates Screen (test code = 89260-3) NEGATIVE NEGATIVE ALL TESTS PERFORMED MANUALLY ON Axial TOX/SEE TESTB[facility] WorthUrine Barbiturates [id number] 00:59:00* Test Item Value Reference Range Interpretation Comments Urine Barbiturates Screen (test code = 370092302) NEGATIVE NEGA TIVE [facility] WorthUrine Phencyclidine Eduyoa5806-61-64 00:59:00* Test Item Value Reference Range Interpretation Comments Urine Phencyclidine Screen (test code = 46282-1) NEGATIVE NEGAT DEVONTE [facility] WorthUrine Amphetamines Orebfp1061-06-38 00:59:00* Test Item Value Reference Range Interpretation Comments Urine Amphetamines Screen (test code = 59683-5) NEGATIVE NEGATI VE [facility] WorthU[facility] Methamphetamines [id number] 00:59:00* Test Item Value Reference Range Interpretation Comments Urine Methamphetamines Screen (test code = Urine Metha mphetamines Screen) NEGATIVE NEGATIVE [facility] WorthUrine Benzodiazepines Cojgjq0191-89-63 00:59:00* Test Item Value Reference Range Interpretation Comments Urine Benzodiazepines Screen (test code = 34135-8) NEGATIVE NEG ATIVE [facility] WorthUrine Cocaine Sjrkuv4588-32-44 00:59:00* Test Item Value Reference Range Interpretation Comments Urine Cocaine Screen (test code = 3398-5) NEGATIVE NEGATIVE [facility] WorthUrine Cannabinoids Paajqs2222-81-50 00:59:00* Test Item Value Reference Range Interpretation Comments Urine Cannabinoids Screen (test code = 47503-9) NEGATIVE NEGATI VE THESE RESULTS ARE FOR MEDICAL TREATMENT ONLYTHIS REPORT CONTAINS UNCONFIR MED SCREENING RESULTS*POSITIVE RESULTS WILL BE CONFIRMED BY REFERENCE LAB UPON R EQUEST CUT-OFFDRUG CLASS CONCENTRATION ng/mLAmphetamines 1000Methamphetamines 1000Cocaine 300Opiate 300Phencyc lidine 25Cannabinoid 50Barbiturates 300Benzodiazepine 300Methadone 300[facility] WorthUrine Methadone Ayxfpb2594-33-82 00:59:00* Test Item Value Reference Range Interpretation Comments Urine Methadone Screen (test code = 02215-4) NEGATIVE NEGATIVE THESE RESULTS ARE FOR MEDICAL TREATMENT ONLYTHIS REPORT CONTAINS UNCONFIR MED SCREENING RESULTS*POSITIVE RESULTS WILL BE CONFIRMED BY REFERENCE LAB UPON R EQUEST CUT-OFFDRUG CLASS CONCENTRATION ng/mLAmphetamines 1000Methamphetamines 1000Cocaine Metabolite 300Opiate 300Phencyc lidine 25Cannabinoid 50Barbiturates 300Benzodiazepine 300Methadone 300[facility] WorthUrine Pdvrznddkzaq3798-38-49 00:59:00* Test Item Value Reference Range Interpretation Comments Urine Urobilinogen (test code = 22286-7) 0.2 0.2-1 [facility] WorthUrine Tnlcjvusy3058-67-76 00:59:00* Test Item Value Reference Range Interpretation Comments Urine Bilirubin (test code = 1978-6) NEGATIVE NEGATIVE [facility] WorthUrine Shhob0184-93-49 00:59:00* Test Item Value Reference Range Interpretation Comments Urine Blood (test code = 51883-5) NEGATIVE NEGATIVE [facility] Centerodium Rfbix0493-17-78 00:58:00* Test Item Value Reference Range Interpretation Comments Sodium Level (test code = 2951-2) 138 136-145 [facility] WorthPotassium Yjuyr9954-19-47 00:58:00* Test Item Value Reference Range Interpretation Comments Potassium Level (test code = 2823-3) 3.4 3.5-5.1 L [facility] WorthChloride Rgznr1126-65-74 00:58:00* Test Item Value Reference Range Interpretation Comments Chloride Level (test code = 2075-0) 97 98-107 L [facility] WorthCarbon Dioxide Chrhx0667-45-46 00:58:00* Test Item Value Reference Range Interpretation Comments Carbon Dioxide Level (test code = 2028-9) 28 22-29 [facility] Fort WorthAnion Zlq2882-41-97 00:58:00* Test Item Value Reference Range Interpretation Comments Anion Gap (test code = 37510-0) 16.4 8-16 H [facility] WorthBlood Urea Lqsarcwj8033-00-66 00:58:00* Test Item Value Reference Range Interpretation Comments Blood Urea Nitrogen (test code = 3094-0) 19 7-26 [facility] WorthCreatinine2019-04-11 00:58:00* Test Item Value Reference Range Interpretation Comments Creatinine (test code = 2160-0) 1.26 0.72-1.25 H [facility] WorthBUN/Creatinine Wycig7653-24-10 00:58:00* Test Item Value Reference Range Interpretation Comments BUN/Creatinine Ratio (test code = 3097-3) 15 6-25 [facility] Fort WorthEstimat Glomerular Filtration Rate 2018-05-29 00:58:00* Test Item Value Reference Range Interpretation Comments Estimat Glomerular Filtration Rate (test code = 650351194) > 60 >60 Ranges were taken from the National Kidney Disease Education Program and the [facility] Kidney Foundation literature.Reference ranges:60 or greater: Fzxrjo96-57 ( for 3 consecutive months): Chronic kidney disease 15 or less: Kidney failureBaylor Scott & [facility] Fort WorthGlucose Uapmo9682-15-00 00:58:00* Test Item Value Reference Range Interpretation Comments Glucose Level (test code = RVI6588) 146 74-118 H [facility] WorthCalcium Kqyxp7441-81-29 00:58:00* Test Item Value Reference Range Interpretation Comments Calcium Level (test code = 98821-6) 9.6 8.4-10.2 [facility] Fort WorthTotal Ddcjicjdk5349-08-16 00:58:00* Test Item Value Reference Range Interpretation Comments Total Bilirubin (test code = 1975-2) 0.4 0.2-1.2 [facility] Fort WorthAspartate Amino Transf (AST/SGOT) 2018-05-29 00:58:00* Test Item Value Reference Range Interpretation Comments Aspartate Amino Transf (AST/SGOT) (test code = Aspartate Amino Transf (AST/SGOT)) 18 5-34 [facility] Fort WorthAlanine Aminotransferase (ALT/SGPT) 2018-05-29 00:58:00* Test Item Value Reference Range Interpretation Comments Alanine Aminotransferase (ALT/SGPT) (test code = 1742-6) 31 0-55 [facility] WorthTotal Nxclioz6623-33-16 00:58:00* Test Item Value Reference Range Interpretation Comments Total Protein (test code = 2885-2) 7.0 6.5-8.1 [facility] Fort WorthAlbumin2019-04-11 00:58:00* Test Item Value Reference Range Interpretation Comments Albumin (test code = 1751-7) 3.8 3.5-5.0 [facility] Fort WorthGlobulin2019-04-11 00:58:00* Test Item Value Reference Range Interpretation Comments Globulin (test code = 45000-1) 3.2 2.3-3.5 [facility] WorthAlbumin/Globulin Tbvxc7642-58-88 00:58:00 * Test Item Value Reference Range Interpretation Comments Albumin/Globulin Ratio (test code = 1759-0) 1.2 0.8-2.0 [facility] WorthAlkaline Vktacbkshlb4243-29-07 00:58:00* Test Item Value Reference Range Interpretation Comments Alkaline Phosphatase (test code = 6768-6) 104 40-150 [facility] Fort WorthCreatine Oluuxi1182-29-82 00:58:00* Test Item Value Reference Range Interpretation Comments Creatine Kinase (test code = 2157-6) 97 30-200 [facility] Fort WorthCHEST SINGLE (PORTABLE)2018-05-29 00:49:00 [facility] [address] [place] [address] Patient Name: ARANZA LOPEZ MR #: [id number] : 1970 Age/Sex: 48/M Req #: [id number] Adm Physician: Ordered by: REED CURTIS MD Report #: [id number] Location: ER Room/Bed: Procedure: [id number] DX/CHES T SINGLE (PORTABLE) Exam Date: Exam [...] COPY TO: REED CURTIS MD White Blood Yxidt9520-13-73 00:46:00* Test Item Value Reference Range Interpretation Comments White Blood Count (test code = 6690-2) 11.14 4.8-10.8 H [facility] WorthRed Blood Bghgb5132-94-15 00:46:00* Test Item Value Reference Range Interpretation Comments Red Blood Count (test code = 789-8) 4.74 4.3-5.7 [facility] Fort WorthHemoglobin2019-04-11 00:46:00* Test Item Value Reference Range Interpretation Comments Hemoglobin (test code = 07923-6) 14.4 14.0-18.0 [facility] Fort WorthHematocrit2019-04-11 00:46:00* Test Item Value Reference Range Interpretation Comments Hematocrit (test code = 4544-3) 42.5 38.2-49.6 [facility] Fort WorthMean Corpuscular Iltmmr8681-01-29 00:46:00* Test Item Value Reference Range Interpretation Comments Mean Corpuscular Volume (test code = 787-2) 89.7 81-99 [facility] Fort WorthMean Corpuscular Fqwhliseqv5597-41-72 00:46:00* Test Item Value Reference Range Interpretation Comments Mean Corpuscular Hemoglobin (test code = 785-6) 30.4 28-32 [facility] Fort WorthMean Corpuscular Hemoglobin Concent 2018-05-29 00:46:00* Test Item Value Reference Range Interpretation Comments Mean Corpuscular Hemoglobin Concent (test code = 786-4) 33.9 31-35 [facility] Fort WorthRed Cell Distribution Rqmek4367-16-72 00:46:00* Test Item Value Reference Range Interpretation Comments Red Cell Distribution Width (test code = 08668-9) 13.5 11.7 -14.4 [facility] Fort WorthPlatelet Dedgv6040-54-51 00:46:00* Test Item Value Reference Range Interpretation Comments Platelet Count (test code = 777-3) 262 140-360 [facility] Fort WorthNeutrophils (%) (Auto)2018-05-29 00:46:00 * Test Item Value Reference Range Interpretation Comments Neutrophils (%) (Auto) (test code = 74410-3) 58.3 38.7-80.0 [facility] Fort WorthLymphocytes (%) (Auto)2018-05-29 00:46:00 * Test Item Value Reference Range Interpretation Comments Lymphocytes (%) (Auto) (test code = 736-9) 30.2 18.0-39.1 [facility] WorthMonocytes (%) (Auto)2018-05-29 00:46:00* Test Item Value Reference Range Interpretation Comments Monocytes (%) (Auto) (test code = 5905-5) 7.1 4.4-11.3 [facility] WorthEosinophils (%) (Auto)2018-05-29 00:46:00 * Test Item Value Reference Range Interpretation Comments Eosinophils (%) (Auto) (test code = 713-8) 1.7 0.0-6.0 [facility] WorthBasophils (%) (Auto)2018-05-29 00:46:00* Test Item Value Reference Range Interpretation Comments Basophils (%) (Auto) (test code = 706-2) 0.4 0.0-1.0 [facility] Fort WorthIM GRANULOCYTES %2018-05-29 00:46:00* Test Item Value Reference Range Interpretation Comments IM GRANULOCYTES % (test code = IM GRANULOCYTES %) 2.3 0.0- 1.0 H [facility] WorthNeutrophils # (Auto)2018-05-29 00:46:00* Test Item Value Reference Range Interpretation Comments Neutrophils # (Auto) (test code = 751-8) 6.5 2.1-6.9 [facility] WorthLymphocytes # (Auto)2018-05-29 00:46:00* Test Item Value Reference Range Interpretation Comments Lymphocytes # (Auto) (test code = 85126-1) 3.4 1.0-3.2 H [facility] WorthMonocytes # (Auto)2018-05-29 00:46:00* Test Item Value Reference Range Interpretation Comments Monocytes # (Auto) (test code = 742-7) 0.8 0.2-0.8 [facility] WorthEosinophils # (Auto)2018-05-29 00:46:00* Test Item Value Reference Range Interpretation Comments Eosinophils # (Auto) (test code = 711-2) 0.2 0.0-0.4 [facility] WorthBasophils # (Auto)2018-05-29 00:46:00* Test Item Value Reference Range Interpretation Comments Basophils # (Auto) (test code = 704-7) 0.1 0.0-0.1 [facility] Fort WorthAbsolute Immature Granulocyte (auto 2018-05-29 00:46:00* Test Item Value Reference Range Interpretation Comments Absolute Immature Granulocyte (auto (shahram t code = Absolute Immature Granulocyte (auto) 0.26 0-0.1 H [facility] WorthProthrombin Qmuo1167-19-02 00:46:00* Test Item Value Reference Range Interpretation Comments Prothrombin Time (test code = 5902-2) 12.9 11.9-14.5 [facility] Fort WorthProthromb Time International Ratio 2018-05-29 00:46:00* Test Item Value Reference Range Interpretation Comments Prothromb Time International Ratio (test code = 6301-6) 0.92 Oral Anticoagulant Therapy INR Values:1. Low Intensity Therapy 1.5 - 2.02 . Moderate Intensity Therapy 2.0 - 3.03. High Intensity Therapy(1) 2.5 - 3. 54. High Intensity Therapy(2) 3.0 - 4.05. Panic Value INR > 5.0 [facility] WorthActivated Partial Thromboplast Time 2018-05-29 00:46:00* Test Item Value Reference Range Interpretation Comments Activated Partial Thromboplast Time (test code = 23673-5) 27.8 23.8-35.5 [facility] WorthURIC [id number] 11:56:00* Test Item Value Reference Range Interpretation Comments URIC ACID (test code = URIC) 7.2 mg/dL 2.6-7.2 N SED [id number] 20:34:00* Test Item Value Reference Range Interpretation Comments SED RATE (test code = SEDW) 20 mm/hr 0-15 H WINTROBE METHOD: NORMAL RANGE FOR MEN: 0-9 MM/HR WOMAN: 0-20 MM/HR SED RATE [id number] 20:33:00* Test Item Value Reference Range Interpretation Comments SED RATE WESTERGREN (test code = SEDW) 20 mm/hr 0-15 H BASIC METABOLIC [id number] 17:14:00* Test Item Value Reference Range Interpretation [...] code = CA) 8.5 mg/dL 8.5-10.1 N [id number]-[id number] 17:14:00* Test Item Value Reference Range Interpretation Comments TROPONIN-I (test code = TROPI) <0.015 ng/mL 0-0.045 N CBC W/O [id number] 17:10:00* Test Item Value Reference Range Interpretation [...] MPV) 10.2 fL 6.7-11.0 N C REACTIVE [id number] 17:09:00* Test Item Value Reference Range Interpretation Comments C REACTIVE PROTEIN (test code = CRP) 2.10 mg/dL 0-0.3 H CBC W/O [id number] 17:09:00* Test Item Value Reference Range Interpretation [...] code = MPV) fL 6.7-11.0 BASIC METABOLIC [id number] 17:02:00* Test Item Value Reference Range Interpretation [...] CALCIUM (test code = CA) mg/dL 8.5-10.1 [id number]-[id number] 17:02:00* Test Item Value Reference Range Interpretation Comments TROPONIN-I (test code = TROPI) ng/mL 0-0.045 - XR ELBOW 2 VIEWS [id number] 16:28:00 FAX: Dacia Maurice [phone] [place]: St: REG FAX: Blake Cazares MD [phone] Name: ARANZA LOPEZ [facility] : 1970 Age/S: 47/M [address] [facility] Unit #: [id number] Loc: [place] [address] Phys: Dacia Caceres MD Acct: [id number] Dis Date: Status: REG ER PHONE #: [phone] Exam Date: 05/10/2018 1600 FAX #: [phone] Reason: redness and pain s/p fall EXAMS: CPT CODE: [id number] [place]R ELBOW [address] [place] [address] HISTORY: Pain. COMPARISON: Chest x-ray from April [...] Signed by Jose Luis Martinez on at 9930 Reported and signed by: Amira Alanis CC: Dacia Caceres MD; Blake Cruz MD Technol ogist: MIKE TROY RT(R) Trnscrd Date/Time/ By: 05/10/2018 (8352) : By: [email or web address].[email or web address] Orig Print D/T: S: 05/10/2018 (4 524) PAGE 1 Signed Report - XR CHEST 1 [id number] 16:28:00 FAX: Dacia Maurice [phone] [place]: St: REG FAX: Blake Cazares MD [phone] Name: ARANZA LOPEZ [facility] : 1970 Age/S: 47/M [address] [facility] Unit #: [id number] Loc: [place] [address] Phys: Dacia Caceres MD Acct: [id number] Dis Date: Status: REG ER PHONE #: [phone] Exam Date: 05/10/2018 1600 FAX #: [phone] Reason: CHEST PAIN EXAMS: CPT CODE: [id number] XR CHEST 1 V 18189 HISTORY: Pain. COMPARISON: Chest x-ray from April [...] MD; Blake Cruz MD Technol ogist: MIKE PASTRANA(R) Trnscrd Date/Time/ By: 05/10/2018 (1628) : By: [email or web address] Orig Print D/T: S: 05/10/2018 (4 098) PAGE 1 Signed Report B-Type Natriuretic Wxfkutn9360-33-53 14:49:00* Test Item Value Reference Range Interpretation Comments B-Type Natriuretic Peptide (test code = 54816-3) 55.4 0-100 [facility] WorthCreatine Kinase [id number] 14:37:00* Test Item Value Reference Range Interpretation Comments Creatine Kinase MB (test code = 41755-6) 2.20 0-5.0 [facility] WorthTroponin [id number] 14:37:00* Test Item Value Reference Range Interpretation Comments Troponin I (test code = WTA0618) < 0.001 0-0.300 [facility]odium Rhjag8113-50-75 14:32:00* Test Item Value Reference Range Interpretation Comments Sodium Level (test code = 2951-2) 133 136-145 L [facility] WorthPotassium Zqcak1242-39-99 14:32:00* Test Item Value Reference Range Interpretation Comments Potassium Level (test code = 2823-3) 4.1 3.5-5.1 [facility] WorthChloride Uyigo6534-25-53 14:32:00* Test Item Value Reference Range Interpretation Comments Chloride Level (test code = 2075-0) 103 98-107 [facility] WorthCarbon Dioxide Oudwl9685-37-24 14:32:00* Test Item Value Reference Range Interpretation Comments Carbon Dioxide Level (test code = 2028-9) 25 22-29 [facility] WorthAnion Nzt8378-61-02 14:32:00* Test Item Value Reference Range Interpretation Comments Anion Gap (test code = 08862-6) 9.1 8-16 [facility] WorthBlood Urea Jkvrfvjf1790-43-73 14:32:00* Test Item Value Reference Range Interpretation Comments Blood Urea Nitrogen (test code = 3094-0) 10 7-26 [facility] WorthCreatinine2019-02-21 14:32:00* Test Item Value Reference Range Interpretation Comments Creatinine (test code = 2160-0) 1.06 0.72-1.25 [facility] WorthBUN/Creatinine Krpom6243-14-73 14:32:00* Test Item Value Reference Range Interpretation Comments BUN/Creatinine Ratio (test code = 3097-3) 9 6-25 [facility] WorthEstimat Glomerular Filtration Rate 2018-04-10 14:32:00* Test Item Value Reference Range Interpretation Comments Estimat Glomerular Filtration Rate (test code = 729488039) > 60 >60 Ranges were taken from the National Kidney Disease Education Program and the [facility] Kidney Foundation literature.Reference ranges:60 or greater: Xjpzlb47-92 ( for 3 consecutive months): Chronic kidney disease 15 or less: Kidney failureBaylor Scott & [facility] Fort WorthGlucose Vqfbv6795-25-22 14:32:00* Test Item Value Reference Range Interpretation Comments Glucose Level (test code = FUQ3825) 159 74-118 H [facility] WorthCalcium Formg6166-78-59 14:32:00* Test Item Value Reference Range Interpretation Comments Calcium Level (test code = 92340-0) 8.9 8.4-10.2 [facility] WorthTotal Mlxmngwqs5804-36-18 14:32:00* Test Item Value Reference Range Interpretation Comments Total Bilirubin (test code = 1975-2) 0.4 0.2-1.2 [facility] WorthAspartate Amino Transf (AST/SGOT) 2018-04-10 14:32:00* Test Item Value Reference Range Interpretation Comments Aspartate Amino Transf (AST/SGOT) (test code = Aspartate Amino Transf (AST/SGOT)) 25 5-34 [facility] WorthAlanine Aminotransferase (ALT/SGPT) 2018-04-10 14:32:00* Test Item Value Reference Range Interpretation Comments Alanine Aminotransferase (ALT/SGPT) (test code = 1742-6) 33 0-55 [facility] WorthTotal Twzfxlk2280-92-11 14:32:00* Test Item Value Reference Range Interpretation Comments Total Protein (test code = 2885-2) 6.1 6.5-8.1 L [facility] WorthAlbumin2019-02-21 14:32:00* Test Item Value Reference Range Interpretation Comments Albumin (test code = 1751-7) 3.6 3.5-5.0 [facility] WorthGlobulin2019-02-21 14:32:00* Test Item Value Reference Range Interpretation Comments Globulin (test code = 08751-8) 2.5 2.3-3.5 [facility] WorthAlbumin/Globulin Xwhfu8237-80-09 14:32:00 * Test Item Value Reference Range Interpretation Comments Albumin/Globulin Ratio (test code = 1759-0) 1.4 0.8-2.0 [facility] WorthAlkaline Vtktqzxaqfv1777-55-30 14:32:00* Test Item Value Reference Range Interpretation Comments Alkaline Phosphatase (test code = 6768-6) 90 40-150 [facility] WorthCreatine Crvtma6843-75-24 14:32:00* Test Item Value Reference Range Interpretation Comments Creatine Kinase (test code = 2157-6) 138 30-200 [facility] WorthAmylase Iuegr9817-97-16 14:32:00* Test Item Value Reference Range Interpretation Comments Amylase Level (test code = 1798-8) 26 25-125 [facility] WorthLipase2019-02-21 14:32:00* Test Item Value Reference Range Interpretation Comments Lipase (test code = 3040-3) 30 8-78 [facility] WorthAmylase Ctlyy6116-90-46 14:32:00* Test Item Value Reference Range Interpretation Comments Amylase Level (test code = 1798-8) 26 25-125 [facility] WorthAmylase Xcvit7084-51-63 14:32:00* Test Item Value Reference Range Interpretation Comments Amylase Level (test code = 1798-8) 26 25-125 [facility] WorthAmylase Llqkg0335-53-78 14:32:00* Test Item Value Reference Range Interpretation Comments Amylase Level (test code = 1798-8) 26 25-125 [facility] WorthAmylase Veriz2864-56-47 14:32:00* Test Item Value Reference Range Interpretation Comments Amylase Level (test code = 1798-8) 26 25-125 [facility] WorthCHEST SINGLE (PORTABLE)2018-04-10 14:29:00 [facility] [address] [address] Patient Name: ARANZA LOPEZ MR #: [id number] : 1970 Age/Sex: 47/M Req #: [id number] Adm Physician: Ordered by: BETTINA HERNÁNDEZ [employer] Report #: [id number] Location: ER Room/Bed: Procedure: [id number] DX /CHEST SINGLE (PORTABLE) Exam Date: 04/10/18 [...] 2:32 PM Dictated By: JIA SAUCEDO MD [facility] Signed By: JIA SAUCEDO MD on 04/10/181431 Transcribed By: ADALBERTO on 1432 COPY TO: BETTINA HERNÁNDEZ NP Urine [id number] 14:28:00* Test Item Value Reference Range Interpretation Comments Urine WBC (test code = 5821-4) 0-5 0-5 [facility] WorthUrine RLF7933-11-11 14:28:00* Test Item Value Reference Range Interpretation Comments Urine RBC (test code = 82837-4) NONE 0-5 [facility] WorthUrine Wjgbzswg1092-81-00 14:28:00* Test Item Value Reference Range Interpretation Comments Urine Bacteria (test code = 52536-8) NONE NONE [facility] WorthUrine Epithelial Ydfts9722-03-08 14:28:00 * Test Item Value Reference Range Interpretation Comments Urine Epithelial Cells (test code = 21159-6) NONE NONE [facility] WorthProthrombin Xxbq7917-47-89 14:21:00* Test Item Value Reference Range Interpretation Comments Prothrombin Time (test code = 5902-2) 13.0 11.9-14.5 [facility] Fort WorthProthromb Time International Ratio 2018-04-10 14:21:00* Test Item Value Reference Range Interpretation Comments Prothromb Time International Ratio (test code = 6301-6) 0.90 Oral Anticoagulant Therapy INR Values:1. Low Intensity Therapy 1.5 - 2.02 . Moderate Intensity Therapy 2.0 - 3.03. High Intensity Therapy(1) 2.5 - 3. 54. High Intensity Therapy(2) 3.0 - 4.05. Panic Value INR > 5.0 [facility] WorthActivated Partial Thromboplast Time 2018-04-10 14:21:00* Test Item Value Reference Range Interpretation Comments Activated Partial Thromboplast Time (test code = 71784-9) 30.7 23.8-35.5 [facility] WorthWhite Blood Jdtvo2654-60-47 14:19:00* Test Item Value Reference Range Interpretation Comments White Blood Count (test code = 6690-2) 6.31 4.8-10.8 [facility] WorthRed Blood Iditp2117-39-88 14:19:00* Test Item Value Reference Range Interpretation Comments Red Blood Count (test code = 789-8) 4.45 4.3-5.7 [facility] WorthHemoglobin2019-02-21 14:19:00* Test Item Value Reference Range Interpretation Comments Hemoglobin (test code = 84607-7) 13.6 14.0-18.0 L [facility] WorthHematocrit2019-02-21 14:19:00* Test Item Value Reference Range Interpretation Comments Hematocrit (test code = 4544-3) 40.6 38.2-49.6 [facility] Fort WorthMean Corpuscular Lzlvek1180-81-47 14:19:00* Test Item Value Reference Range Interpretation Comments Mean Corpuscular Volume (test code = 787-2) 91.2 81-99 [facility] WorthMean Corpuscular Cstuslabpx5051-52-81 14:19:00* Test Item Value Reference Range Interpretation Comments Mean Corpuscular Hemoglobin (test code = 785-6) 30.6 28-32 [facility] Fort WorthMean Corpuscular Hemoglobin Concent 2018-04-10 14:19:00* Test Item Value Reference Range Interpretation Comments Mean Corpuscular Hemoglobin Concent (test code = 786-4) 33.5 31-35 [facility] WorthRed Cell Distribution Trwyo5220-26-62 14:19:00* Test Item Value Reference Range Interpretation Comments Red Cell Distribution Width (test code = 40306-0) 13.7 11.7 -14.4 [facility] WorthPlatelet Gucys0042-69-55 14:19:00* Test Item Value Reference Range Interpretation Comments Platelet Count (test code = 777-3) 226 140-360 [facility] WorthNeutrophils (%) (Auto)2018-04-10 14:19:00 * Test Item Value Reference Range Interpretation Comments Neutrophils (%) (Auto) (test code = 41071-6) 57.9 38.7-80.0 [facility] WorthLymphocytes (%) (Auto)2018-04-10 14:19:00 * Test Item Value Reference Range Interpretation Comments Lymphocytes (%) (Auto) (test code = 736-9) 29.6 18.0-39.1 [facility] WorthMonocytes (%) (Auto)2018-04-10 14:19:00* Test Item Value Reference Range Interpretation Comments Monocytes (%) (Auto) (test code = 5905-5) 9.0 4.4-11.3 [facility] WorthEosinophils (%) (Auto)2018-04-10 14:19:00 * Test Item Value Reference Range Interpretation Comments Eosinophils (%) (Auto) (test code = 713-8) 2.2 0.0-6.0 [facility] WorthBasophils (%) (Auto)2018-04-10 14:19:00* Test Item Value Reference Range Interpretation Comments Basophils (%) (Auto) (test code = 706-2) 0.5 0.0-1.0 [facility] WorthIM GRANULOCYTES %2018-04-10 14:19:00* Test Item Value Reference Range Interpretation Comments IM GRANULOCYTES % (test code = IM GRANULOCYTES %) 0.8 0.0- 1.0 [facility] WorthNeutrophils # (Auto)2018-04-10 14:19:00* Test Item Value Reference Range Interpretation Comments Neutrophils # (Auto) (test code = 751-8) 3.7 2.1-6.9 [facility] WorthLymphocytes # (Auto)2018-04-10 14:19:00* Test Item Value Reference Range Interpretation Comments Lymphocytes # (Auto) (test code = 68293-6) 1.9 1.0-3.2 [facility] WorthMonocytes # (Auto)2018-04-10 14:19:00* Test Item Value Reference Range Interpretation Comments Monocytes # (Auto) (test code = 742-7) 0.6 0.2-0.8 [facility] WorthEosinophils # (Auto)2018-04-10 14:19:00* Test Item Value Reference Range Interpretation Comments Eosinophils # (Auto) (test code = 711-2) 0.1 0.0-0.4 [facility] WorthBasophils # (Auto)2018-04-10 14:19:00* Test Item Value Reference Range Interpretation Comments Basophils # (Auto) (test code = 704-7) 0.0 0.0-0.1 [facility] WorthAbsolute Immature Granulocyte (auto 2018-04-10 14:19:00* Test Item Value Reference Range Interpretation Comments Absolute Immature Granulocyte (auto (shahram t code = Absolute Immature Granulocyte (auto) 0.05 0-0.1 [facility] WorthUrine Dqdeh4044-44-39 14:19:00* Test Item Value Reference Range Interpretation Comments Urine Color (test code = 5778-6) YELLOW YELLOW [facility] WorthUrine Qdgglzl7443-23-14 14:19:00* Test Item Value Reference Range Interpretation Comments Urine Clarity (test code = 03828-4) CLEAR CLEAR [facility] WorthUrine Specific Eecgkwp7477-30-01 14:19:00 * Test Item Value Reference Range Interpretation Comments Urine Specific [place] (test code = 5811-5) 1.015 1.010-1.02 5 [facility] WorthUrine dK8073-71-30 14:19:00* Test Item Value Reference Range Interpretation Comments Urine pH (test code = 51882-3) 6 5-7 [facility] WorthUrine Leukocyte Owjayhcm9794-08-01 14:19:00* Test Item Value Reference Range Interpretation Comments Urine Leukocyte Esterase (test code = 5799-2) NEGATIVE NEGATIVE [facility] WorthUrine Pmpldre6666-43-38 14:19:00* Test Item Value Reference Range Interpretation Comments Urine Nitrite (test code = 35732-3) NEGATIVE NEGATIVE [facility] WorthUrine Coidavo6377-83-89 14:19:00* Test Item Value Reference Range Interpretation Comments Urine Protein (test code = 5804-0) NEGATIVE NEGATIVE [facility] WorthUrine Glucose (UA)2018-04-10 14:19:00* Test Item Value Reference Range Interpretation Comments Urine Glucose (UA) (test code = 2349-9) 1+ NEGATIVE H [facility] WorthUrine Oxmowie4502-99-11 14:19:00* Test Item Value Reference Range Interpretation Comments Urine Ketones (test code = 97815-1) NEGATIVE NEGATIVE [facility] WorthUrine Yphgnsiqholp9748-95-98 14:19:00* Test Item Value Reference Range Interpretation Comments Urine Urobilinogen (test code = 58944-2) 0.2 0.2-1 [facility] WorthUrine Qdvrwvzxo3228-10-32 14:19:00* Test Item Value Reference Range Interpretation Comments Urine Bilirubin (test code = 1978-6) NEGATIVE NEGATIVE [facility] WorthUrine Npyxf4585-54-13 14:19:00* Test Item Value Reference Range Interpretation Comments Urine Blood (test code = 76192-8) NEGATIVE NEGATIVE [facility]- XR FOOT 2 VIEWS XH3119-97-28 14:37:00 FAX: Diego Mathis MD [phone] [place]: [facility]: [facility] FAX: Blake Cazares MD [phone] Name: ARANZA LOPEZ [facility] : 1970 Age/S: 47/M [address] [facility] Unit #: [id number] Loc: [address] [place] [address] Phys: Diego Mathis MD Acct: [id number] Dis Date: Status: ADM IN PHONE #: [phone] Exam Date: 03/28/2018 1046 FAX #: [phone] Reason: FALL EXAMS: CPT CODE: [id number] XR FO[place] [address] [place] [address] HISTORY: Fall and pain. COMPARISON: None available. [...] Technologist: Walter Orellana RT(R) Trnscrd Date/Time/By: 03/28/2018 (5882) : By: Sherron [email or web address] Orig Print D/T: S: 03/28/2018 (5980) PAG E 1 Signed Report - XR HIP W/PEL UNI 2+V [id number] 14:37:00 FAX: Diego Mathis MD [phone] [place]: St: [facility] FAX: Blake Cazares MD [phone] Name: ARANZA LOPEZ [facility] : 1970 Age/S: 47/M [address] [facility] Unit #: [id number] Loc: [place] [address] Phys: iDego Mathis MD Acct: [id number] Dis Date: Status: ADM IN PHONE #: [phone] Exam Date: 03/28/2018 1355 FAX #: [phone] Reason: FALL EXAMS: CPT CODE: [id number] XR HIP W/PEL UNI 2+[place] [address] HISTORY: Fall and pain. COMPARISON: None available. [...] MD; Blake Cruz MD Technologist: Mana Salazar(Saritha); DAYLIN DENT TECHNOLOGIST Trnscrd Date/Time/By: 03/28/2018 (1437) [...] This LDL result is a direct measurement.========= JKCMODIS-Z9408-69-08 06:56:00* Test Item Value Reference Range Interpretation Comments TROPONIN-I (test code = TROPI) <0.015 ng/mL 0-0.045 N COMMENTS TO EDUCATIONAL DIAGNOSTICIAN: COLLECT 3 HOURS AFTER PREVIOUS IYJVTDWJXVOHEP-U4397-93-08 02:02:00* Test Item Value Reference Range Interpretation Comments TROPONIN-I (test code = TROPI) <0.015 ng/mL 0-0.045 N COMMENTS TO EDUCATIONAL DIAGNOSTICIAN: COLLECT 3 HOURS AFTER PREVIOUS SAMPLEBASIC METABOLIC BYIAL3948-46-34 18:34:00* Test Item Value Reference Range Interpretation [...] CA) 8.3 mg/dL 8.5-10.1 L HEPATIC FUNCTION [id number] 18:34:00* Test Item Value Reference Range Interpretation [...] reference range due to change in reagent. [id number]-R4654-14-07 18:34:00* Test Item Value Reference Range Interpretation Comments TROPONIN-I (test code = TROPI) <0.015 ng/mL 0-0.045 N BASIC METABOLIC ZFXVW8832-33-23 18:25:00* Test Item Value Reference Range Interpretation [...] code = CA) mg/dL 8.5-10.1 HEPATIC FUNCTION ELCEW0538-31-93 18:25:00* Test Item Value Reference Range Interpretation [...] TOTAL (test code = ALKP) IUnit/L 45-117 CDIKHKSN-V5981-53-07 18:25:00* Test Item Value Reference Range Interpretation Comments TROPONIN-I (test code = TROPI) ng/mL 0-0.045 CBC W/AUTO XFDC5185-01-19 18:00:00* Test Item Value Reference Range Interpretation [...] code = BA#) K/mm3 0.0-0.2 CBC W/AUTO DKMY9556-04-13 18:00:00* Test Item Value Reference Range Interpretation [...] K/mm3 0.0-0.1 N - XR CHEST 1 [id number] 17:24:00 FAX: Dacia Maurice [phone] [place]: B : [facility] FAX: Blake Cazares MD [phone] Name: ARANZA LOPEZ [facility] : 1970 Age/S: 47/M [address] Unit #: [id number] Loc: [place] [address] Phys: Dacia Caceres MD Acct: [id number] Dis Date: Status: REG ER PHONE #: [phone] Exam Date: 03/27/2018 1710 FAX #: [phone] Reason: Altered Mental Status EXAMS: CPT CODE: [id number] XR CHEST 1 V 68028 REASON FOR EXAM: Altered Mental Status EXAM ORDER DATE: 03/27/2018 4:51 PM Ordering MCelena: Dacia Caceres MD PROCEDURE: - XR CHEST 1 V COMPARISON: FINDINGS: Portable AP frontal view of the chest obtained at 5:04 PM shows the heart size is minimally enlarged. Pulmonary vasculatures are minimally congested. IMPRESSION: Minimal cardiomegaly and pulmonary venous congestion with atelectasis of the bases. Electronic ally Signed by Jose Luis Barber on 03/27/2018 at 1726 Report ed and signed by: Alvin Barber M.D. CC: Dacia Caceres MD; Blake Cruz MD Technologist: RT KAREL(R) Trnscrd Date/Time/By: 03/27/2018 (2929) : By: Graciela.VTL Orig Print D/T: S: 03/27/2018 (1197) PAGE 1 Signed Report - CT HEAD/BRAIN W/O [id number] 17:13:00 Name: ARANZA LOPEZ [facility] : 1970 Age/S: 47 / M [address] Unit #: [id number] Loc: [place] [address] Phys: Dacia Caceres MD Acct: [id number] Dis Date: Status: PRE ER PHONE #: [phone] Exam Date: 03/27/2018 1701 FAX #: [phone] Reason: Altered Mental Status EXAMS: CPT CODE: [id number] CT HEAD/BRAIN W/O CONT 23601 REASON FOR EXAM: Altered Mental Status EXAM [...] CT CTDI: DLP: Trnscb Date/Time: 03/27/2018 (1712) t.SDR.VTL Orig Print D/T: S: 03/27/2018 (171) CTDI: DLP: PAGE 1 Signed Report Bedside Mvdpygx8949-57-62 11:23:00 * Test Item Value Reference Range Interpretation Comments Bedside Glucose (test code = 82521-5) 145 70-120 H Meter ID: [id number] Specialty [facility] of [facility] Glucose 2018-02-13 11:23:00* Test Item Value Reference Range Interpretation Comments Bedside Glucose (test code = 21646-8) 145 70-120 H Meter ID: [id number] [facility]ty [facility] Glucose 2018-02-13 11:23:00* Test Item Value Reference Range Interpretation Comments Bedside Glucose (test code = 39720-3) 145 70-120 H Meter ID: [id number] Charlton Medical Centerodium Level 2018-02-12 10:49:00* Test Item Value Reference Range Interpretation Comments Sodium Level (test code = 2951-2) 137 136-145 [facility] WorthPotassium Foeoi3726-10-96 10:49:00* Test Item Value Reference Range Interpretation Comments Potassium Level (test code = 2823-3) 3.7 3.5-5.1 [facility] WorthChloride Suifk2413-70-43 10:49:00* Test Item Value Reference Range Interpretation Comments Chloride Level (test code = 2075-0) 100 98-107 [facility] WorthCarbon Dioxide Buijp5563-41-67 10:49:00* Test Item Value Reference Range Interpretation Comments Carbon Dioxide Level (test code = 2028-9) 27 22-29 [facility] WorthAnion Ntq1585-22-07 10:49:00* Test Item Value Reference Range Interpretation Comments Anion Gap (test code = 64241-5) 13.7 8-16 [facility] WorthBlood Urea Ixjsrrsx0546-08-27 10:49:00* Test Item Value Reference Range Interpretation Comments Blood Urea Nitrogen (test code = 3094-0) 19 7-26 [facility] WorthCreatinine2018-12-26 10:49:00* Test Item Value Reference Range Interpretation Comments Creatinine (test code = 2160-0) 1.39 0.72-1.25 H [facility] WorthBUN/Creatinine Tmdme5023-26-28 10:49:00* Test Item Value Reference Range Interpretation Comments BUN/Creatinine Ratio (test code = 3097-3) 14 - [facility] WorthEstimat Glomerular Filtration Rate 2018-02-12 10:49:00* Test Item Value Reference Range Interpretation Comments Estimat Glomerular Filtration Rate (test code = 164117903) 55 >60 L Ranges were taken from the National Kidney Disease Education Program and the [facility] literature.Reference ranges:60 or greater: Dezurg23-07 ( for 3 consecutive months): Chronic kidney disease 15 or less: Kidney failureB[facility] WorthGlucose Mjkgd5272-55-08 10:49:00* Test Item Value Reference Range Interpretation Comments Glucose Level (test code = VMG0335) 166 74-118 H [facility] WorthCalcium Adylq7811-57-81 10:49:00* Test Item Value Reference Range Interpretation Comments Calcium Level (test code = 02802-1) 9.3 8.4-10.2 [facility] WorthWhite Blood Mgdwd5903-97-47 10:31:00* Test Item Value Reference Range Interpretation Comments White Blood Count (test code = 6690-2) 5.68 4.8-10.8 [facility] WorthRed Blood Zteer9176-96-76 10:31:00* Test Item Value Reference Range Interpretation Comments Red Blood Count (test code = 789-8) 4.52 4.3-5.7 [facility] WorthHemoglobin2018-12-26 10:31:00* Test Item Value Reference Range Interpretation Comments Hemoglobin (test code = 35758-9) 14.2 14.0-18.0 [facility] WorthHematocrit2018-12-26 10:31:00* Test Item Value Reference Range Interpretation Comments Hematocrit (test code = 4544-3) 41.4 38.2-49.6 [facility] WorthMean Corpuscular Zftbib3398-64-48 10:31:00* Test Item Value Reference Range Interpretation Comments Mean Corpuscular Volume (test code = 787-2) 91.6 81-99 [facility] WorthMean Corpuscular Zowugwufqg8833-60-58 10:31:00* Test Item Value Reference Range Interpretation Comments Mean Corpuscular Hemoglobin (test code = 785-6) 31.4 28-32 [facility] WorthMean Corpuscular Hemoglobin Concent 2018-02-12 10:31:00* Test Item Value Reference Range Interpretation Comments Mean Corpuscular Hemoglobin Concent (test code = 786-4) 34.3 31-35 [facility] WorthRed Cell Distribution Ariwj8045-62-59 10:31:00* Test Item Value Reference Range Interpretation Comments Red Cell Distribution Width (test code = 47118-2) 13.4 11.7 -14.4 [facility] WorthPlatelet Dlork0198-10-88 10:31:00* Test Item Value Reference Range Interpretation Comments Platelet Count (test code = 777-3) 196 140-360 [facility] WorthNeutrophils (%) (Auto)2018-02-12 10:31:00 * Test Item Value Reference Range Interpretation Comments Neutrophils (%) (Auto) (test code = 84470-9) 62.2 38.7-80.0 [facility] WorthLymphocytes (%) (Auto)2018-02-12 10:31:00 * Test Item Value Reference Range Interpretation Comments Lymphocytes (%) (Auto) (test code = 736-9) 28.5 18.0-39.1 [facility] WorthMonocytes (%) (Auto)2018-02-12 10:31:00* Test Item Value Reference Range Interpretation Comments Monocytes (%) (Auto) (test code = 5905-5) 6.7 4.4-11.3 [facility] WorthEosinophils (%) (Auto)2018-02-12 10:31:00 * Test Item Value Reference Range Interpretation Comments Eosinophils (%) (Auto) (test code = 713-8) 1.6 0.0-6.0 [facility] WorthBasophils (%) (Auto)2018-02-12 10:31:00* Test Item Value Reference Range Interpretation Comments Basophils (%) (Auto) (test code = 706-2) 0.5 0.0-1.0 [facility] WorthIM GRANULOCYTES %2018-02-12 10:31:00* Test Item Value Reference Range Interpretation Comments IM GRANULOCYTES % (test code = IM GRANULOCYTES %) 0.5 0.0- 1.0 [facility] WorthNeutrophils # (Auto)2018-02-12 10:31:00* Test Item Value Reference Range Interpretation Comments Neutrophils # (Auto) (test code = 751-8) 3.5 2.1-6.9 [facility] WorthLymphocytes # (Auto)2018-02-12 10:31:00* Test Item Value Reference Range Interpretation Comments Lymphocytes # (Auto) (test code = 41822-2) 1.6 1.0-3.2 [facility] WorthMonocytes # (Auto)2018-02-12 10:31:00* Test Item Value Reference Range Interpretation Comments Monocytes # (Auto) (test code = 742-7) 0.4 0.2-0.8 [facility] WorthEosinophils # (Auto)2018-02-12 10:31:00* Test Item Value Reference Range Interpretation Comments Eosinophils # (Auto) (test code = 711-2) 0.1 0.0-0.4 [facility] WorthBasophils # (Auto)2018-02-12 10:31:00* Test Item Value Reference Range Interpretation Comments Basophils # (Auto) (test code = 704-7) 0.0 0.0-0.1 [facility] WorthAbsolute Immature Granulocyte (auto 2018-02-12 10:31:00* Test Item Value Reference Range Interpretation Comments Absolute Immature Granulocyte (auto (shahram t code = Absolute Immature Granulocyte (auto) 0.03 0-0.1 [facility] Fort WorthCT BRAIN [id number] 19:31:00 [place] [address] Patient Name: ARANZA LOPEZ MR #: [id number] : 1970 Age/Sex: 47/M Req #: [id number] Adm Physician: DEXTER DILL MD Ordered by: JAMES JONES M.D. Report #: [id number] Location: [place] [address] Room/Bed: [facility] Procedure: [id number] CT/CT BRAIN WO Exam Date: 02/10/18 Exam [...] COPY TO: JAMES JONES MD Creatine Kinase ZE1476-37-23 06:25:00* Test Item Value Reference Range Interpretation Comments Creatine Kinase MB (test code = 88710-4) 2.30 0-5.0 [facility] WorthTroponin F1111-61-31 06:25:00* Test Item Value Reference Range Interpretation Comments Troponin I (test code = LYE0094) 0.117 0-0.300 [facility] WorthCreatine Qoiqfd6448-54-28 06:17:00* Test Item Value Reference Range Interpretation Comments Creatine Kinase (test code = 2157-6) 339 30-200 H [facility] WorthMagnesium Rrcxd3879-34-38 06:55:00* Test Item Value Reference Range Interpretation Comments Magnesium Level (test code = 20662-1) 1.8 1.3-2.1 [facility] WorthMagnesium Nvfua4971-84-58 06:55:00* Test Item Value Reference Range Interpretation Comments Magnesium Level (test code = 33833-4) 1.8 1.3-2.1 [facility] Pasognesium Ayiou8362-14-39 06:55:00* Test Item Value Reference Range Interpretation Comments Magnesium Level (test code = 47561-0) 1.8 1.3-2.1 [facility] Vrseb9446-93-92 06:55:00* Test Item Value Reference Range Interpretation Comments Magnesium Level (test code = 56494-3) 1.8 1.3-2.1 [facility] WorthCT BRAIN IG2037-12-07 05:03:00 [facility] [address] [place] [address] Patient Name: ARANZA LOPEZ MR #: [id number] : 1970 Age/Sex: 47/M Req #: [id number] Adm Physician: Ordered by: ORACIO STARR MD Report #: [id number] Location: ER Room/Bed: Procedure: [id number] CT/C T BRAIN WO Exam Date: 02/09/18 [...] PY TO: ORACIO STARR MD CT CHEST T2798-29-71 04:38:00 [place] [address] Patient Name: ARANZA LOPEZ MR #: [id number] : 1970 Age/Sex: 47/M Req #: [id number] Adm Physician: Ordered by: ORACIO STARR MD Report #: [id number] Location: ER Room/Bed: Procedure: [id number] CT/C T CHEST W Exam Date: 02/09/18 [...] STARR MD CHEST SINGLE (PORTABLE) 2018-02-09 04:36:00 [place] [address] Patient Name: ARANZA LOPEZ MR #: [id number] : 1970 Age/Sex: 47/M Req #: [id number] Adm Physician: Ordered by: ORACIO STARR MD Report #: [id number] Location: ER Room/Bed: Procedure: [id number] DX/C HEST SINGLE (PORTABLE) Exam Date: 02/09/18 Exam Time : 0350 REPORT STATUS: Signed [facility] SINGLE (PORTABLE), 02/09/2018 1:46 AM Technique: CHEST [...] 0 438 Transcribed By: ADALBERTO on 02/09/18 3666 COPY TO: ORACIO STARR Urine Hbspo0018-90-54 03:53:00* Test Item Value Reference Range Interpretation Comments Urine Color (test code = 5778-6) YELLOW YELLOW [facility] WorthUrine Tzgdxnv6995-26-99 03:53:00* Test Item Value Reference Range Interpretation Comments Urine Clarity (test code = 03926-4) CLEAR CLEAR [facility] WorthUrine Specific Wtdmsnb3283-30-31 03:53:00 * Test Item Value Reference Range Interpretation Comments Urine Specific [place] (test code = 5811-5) 1.015 1.010-1.02 5 [facility] WorthUrine iS9872-28-75 03:53:00* Test Item Value Reference Range Interpretation Comments Urine pH (test code = 47040-7) 6 5-7 [facility] WorthUrine Leukocyte Bmfkbfar8517-99-32 03:53:00* Test Item Value Reference Range Interpretation Comments Urine Leukocyte Esterase (test code = 5799-2) 1+ NEGATIVE H [facility] WorthUrine Vaicczq1000-59-35 03:53:00* Test Item Value Reference Range Interpretation Comments Urine Nitrite (test code = 09525-9) NEGATIVE NEGATIVE [facility] WorthUrine Xxvavnz5668-25-61 03:53:00* Test Item Value Reference Range Interpretation Comments Urine Protein (test code = 5804-0) NEGATIVE NEGATIVE [facility] WorthUrine Glucose (UA)2018-02-09 03:53:00* Test Item Value Reference Range Interpretation Comments Urine Glucose (UA) (test code = 2349-9) NEGATIVE NEGATIVE [facility] WorthUrine Fugsowd5358-76-18 03:53:00* Test Item Value Reference Range Interpretation Comments Urine Ketones (test code = 09959-7) NEGATIVE NEGATIVE [facility] WorthUrine Opiates Bsmknb9519-18-70 03:53:00* Test Item Value Reference Range Interpretation Comments Urine Opiates Screen (test code = 45364-6) NEGATIVE NEGATIVE ALL TESTS PERFORMED MANUALLY ON Axial TOX/SEE TEST POSITIVE TCA [facility] WorthUrine Barbiturates Hzuwov2171-61-23 03:53:00 * Test Item Value Reference Range Interpretation Comments Urine Barbiturates Screen (test code = 295984351) NEGATIVE NEGA TIVE [facility] WorthUrine Phencyclidine Rfvwpv1887-11-35 03:53:00* Test Item Value Reference Range Interpretation Comments Urine Phencyclidine Screen (test code = 91786-4) NEGATIVE NEGAT DEVONTE [facility] WorthUrine Amphetamines Iftfzn3483-53-01 03:53:00* Test Item Value Reference Range Interpretation Comments Urine Amphetamines Screen (test code = 63481-7) NEGATIVE NEGATI VE [facility] WorthUrine Methamphetamines Jwjtgm4720-59-97 03:53:00* Test Item Value Reference Range Interpretation Comments Urine Methamphetamines Screen (test code = Urine Metha mphetamines Screen) NEGATIVE NEGATIVE [facility] WorthUrine Benzodiazepines Dvcwbf2491-64-67 03:53:00* Test Item Value Reference Range Interpretation Comments Urine Benzodiazepines Screen (test code = 72530-9) NEGATIVE NEG ATIVE [facility] WorthUrine Cocaine Jfnmjc7115-55-13 03:53:00* Test Item Value Reference Range Interpretation Comments Urine Cocaine Screen (test code = 3398-5) NEGATIVE NEGATIVE [facility] WorthUrine Cannabinoids Buuxik9051-93-35 03:53:00* Test Item Value Reference Range Interpretation Comments Urine Cannabinoids Screen (test code = 04521-3) NEGATIVE NEGATI VE THESE RESULTS ARE FOR MEDICAL TREATMENT ONLYTHIS REPORT CONTAINS UNCONFIR MED SCREENING RESULTS*POSITIVE RESULTS WILL BE CONFIRMED BY REFERENCE LAB UPON R EQUEST CUT-OFFDRUG CLASS CONCENTRATION ng/mLAmphetamines 1000Methamphetamines 1000Cocaine 300Opiate 300Phencyc lidine 25Cannabinoid 50Barbiturates 300Benzodiazepine 300Methadone 300[facility] WorthUrine Methadone Hgnzfc2740-84-25 03:53:00* Test Item Value Reference Range Interpretation Comments Urine Methadone Screen (test code = 79271-8) NEGATIVE NEGATIVE THESE RESULTS ARE FOR MEDICAL TREATMENT ONLYTHIS REPORT CONTAINS UNCONFIR MED SCREENING RESULTS*POSITIVE RESULTS WILL BE CONFIRMED BY REFERENCE LAB UPON R EQUEST CUT-OFFDRUG CLASS CONCENTRATION ng/mLAmphetamines 1000Methamphetamines 1000Cocaine Metabolite 300Opiate 300Phencyc lidine 25Cannabinoid 50Barbiturates 300Benzodiazepine 300Methadone 300[facility] WorthUrine Ytxxpkcvbxpf7256-61-08 03:53:00* Test Item Value Reference Range Interpretation Comments Urine Urobilinogen (test code = 64860-5) 0.2 0.2-1 [facility] WorthUrine Ecxjzvscj0926-39-57 03:53:00* Test Item Value Reference Range Interpretation Comments Urine Bilirubin (test code = 1978-6) NEGATIVE NEGATIVE [facility] WorthUrine Swocu1457-80-23 03:53:00* Test Item Value Reference Range Interpretation Comments Urine Blood (test code = 23749-7) NEGATIVE NEGATIVE [facility] WorthUrine XAW3601-60-60 03:53:00* Test Item Value Reference Range Interpretation Comments Urine WBC (test code = 5821-4) 6-10 0-5 H [facility] WorthUrine DDD7531-66-81 03:53:00* Test Item Value Reference Range Interpretation Comments Urine RBC (test code = 33298-0) 0-5 0-5 [facility] WorthUrine Prsbbgte8406-21-30 03:53:00* Test Item Value Reference Range Interpretation Comments Urine Bacteria (test code = 56683-9) RARE NONE [facility] WorthUrine Epithelial Imlaa6553-88-98 03:53:00 * Test Item Value Reference Range Interpretation Comments Urine Epithelial Cells (test code = 36976-6) RARE NONE [facility] WorthUrine Fywuf5853-48-35 03:53:00* Test Item Value Reference Range Interpretation Comments Urine Color (test code = 5778-6) YELLOW YELLOW [facility] Idsauau2919-45-38 03:53:00* Test Item Value Reference Range Interpretation Comments Urine Clarity (test code = 56590-9) CLEAR CLEAR [facility] Specific Iqswdjm6535-77-56 03:53:00 * Test Item Value Reference Range Interpretation Comments Urine Specific [place] (test code = 5811-5) 1.015 1.010-1.02 5 [facility] WorthU[facility] [id number] 03:53:00* Test Item Value Reference Range Interpretation Comments Urine pH (test code = 53394-3) 6 5-7 [facility] WorthUrine Leukocyte Tiztrogj7609-42-20 03:53:00* Test Item Value Reference Range Interpretation Comments Urine Leukocyte Esterase (test code = 5799-2) 1+ NEGATIVE H [facility] WorthUrine Creigui2543-78-96 03:53:00* Test Item Value Reference Range Interpretation Comments Urine Nitrite (test code = 26493-4) NEGATIVE NEGATIVE [facility] WorthU[facility] Tpdzoyp5706-92-88 03:53:00* Test Item Value Reference Range Interpretation Comments Urine Protein (test code = 5804-0) NEGATIVE NEGATIVE [facility] Glucose (UA)2018-02-09 03:53:00* Test Item Value Reference Range Interpretation Comments Urine Glucose (UA) (test code = 2349-9) NEGATIVE NEGATIVE [facility] Worth[facility] Kkoqrvk6272-36-84 03:53:00* Test Item Value Reference Range Interpretation Comments Urine Ketones (test code = 07704-0) NEGATIVE NEGATIVE [facility] WorthUrine Opiates Gmswhx4381-33-90 03:53:00* Test Item Value Reference Range Interpretation Comments Urine Opiates Screen (test code = 28046-1) NEGATIVE NEGATIVE ALL TESTS PERFORMED MANUALLY ON Axial TOX/SEE TEST POSITIVE TCA [facility] Barbiturates Weodiw9847-75-28 03:53:00 * Test Item Value Reference Range Interpretation Comments Urine Barbiturates Screen (test code = 121121335) NEGATIVE NEGA TIVE [facility] WorthUrine Phencyclidine Hrifhy4340-08-81 03:53:00* Test Item Value Reference Range Interpretation Comments Urine Phencyclidine Screen (test code = 16230-3) NEGATIVE NEGAT DEVONTE [facility] Amphetamines Ivxpsc4030-58-21 03:53:00* Test Item Value Reference Range Interpretation Comments Urine Amphetamines Screen (test code = 54966-7) NEGATIVE NEGATI VE [facility] WorthU[facility] Methamphetamines Mqzsvk0216-58-24 03:53:00* Test Item Value Reference Range Interpretation Comments Urine Methamphetamines Screen (test code = Urine Metha mphetamines Screen) NEGATIVE NEGATIVE [facility] WorthUrine Benzodiazepines Kscciu5357-28-23 03:53:00* Test Item Value Reference Range Interpretation Comments Urine Benzodiazepines Screen (test code = 79001-8) NEGATIVE NEG ATIVE [facility] WorthUrine Cocaine Ldaish0355-63-81 03:53:00* Test Item Value Reference Range Interpretation Comments Urine Cocaine Screen (test code = 3398-5) NEGATIVE NEGATIVE [facility] WorthUrine Cannabinoids Rynwsh5339-93-40 03:53:00* Test Item Value Reference Range Interpretation Comments Urine Cannabinoids Screen (test code = 93481-7) NEGATIVE NEGATI VE THESE RESULTS ARE FOR MEDICAL TREATMENT ONLYTHIS REPORT CONTAINS UNCONFIR MED SCREENING RESULTS*POSITIVE RESULTS WILL BE CONFIRMED BY REFERENCE LAB UPON R EQUEST CUT-OFFDRUG CLASS CONCENTRATION ng/mLAmphetamines 1000Methamphetamines 1000Cocaine 300Opiate 300Phencyc lidine 25Cannabinoid 50Barbiturates 300Benzodiazepine 300Methadone 300[facility] ArlingtonUrine Methadone Yfatce0296-39-31 03:53:00* Test Item Value Reference Range Interpretation Comments Urine Methadone Screen (test code = 31188-3) NEGATIVE NEGATIVE THESE RESULTS ARE FOR MEDICAL TREATMENT ONLYTHIS REPORT CONTAINS UNCONFIR MED SCREENING RESULTS*POSITIVE RESULTS WILL BE CONFIRMED BY REFERENCE LAB UPON R EQUEST CUT-OFFDRUG CLASS CONCENTRATION ng/mLAmphetamines 1000Methamphetamines 1000Cocaine Metabolite 300Opiate 300Phencyc lidine 25Cannabinoid 50Barbiturates 300Benzodiazepine 300Methadone 300[facility] ArlingtonUrine Cffyqepgntja8017-94-92 03:53:00* Test Item Value Reference Range Interpretation Comments Urine Urobilinogen (test code = 14525-8) 0.2 0.2-1 [facility] WorthU[facility] Olwchcwli1533-32-74 03:53:00* Test Item Value Reference Range Interpretation Comments Urine Bilirubin (test code = 1978-6) NEGATIVE NEGATIVE [facility] Worth[facility] Zrbtt7490-24-72 03:53:00* Test Item Value Reference Range Interpretation Comments Urine Blood (test code = 98573-5) NEGATIVE NEGATIVE [facility] WorthU[facility] RZF5032-53-88 03:53:00* Test Item Value Reference Range Interpretation Comments Urine WBC (test code = 5821-4) 6-10 0-5 H [facility] WorthU[facility] HIK9617-70-36 03:53:00* Test Item Value Reference Range Interpretation Comments Urine RBC (test code = 03017-4) 0-5 0-5 [facility] WorthUrine Prxrptus1926-42-09 03:53:00* Test Item Value Reference Range Interpretation Comments Urine Bacteria (test code = 90618-0) RARE NONE [facility] WorthU[facility] Epithelial Yfekl0273-14-61 03:53:00 * Test Item Value Reference Range Interpretation Comments Urine Epithelial Cells (test code = 07517-8) RARE NONE [facility] WorthU[facility] Opiates Yaoahn3449-17-73 03:53:00* Test Item Value Reference Range Interpretation Comments Urine Opiates Screen (test code = 95625-9) NEGATIVE NEGATIVE ALL TESTS PERFORMED MANUALLY ON Axial TOX/SEE TEST POSITIVE TCA [facility] WorthUrine Barbiturates Haiugt5256-25-44 03:53:00 * Test Item Value Reference Range Interpretation Comments Urine Barbiturates Screen (test code = 140816916) NEGATIVE NEGA TIVE [facility] WorthU[facility] Phencyclidine Rtmdxp0749-96-78 03:53:00* Test Item Value Reference Range Interpretation Comments Urine Phencyclidine Screen (test code = 73172-7) NEGATIVE NEGAT DEVONTE [facility] WorthU[facility] Amphetamines Wduivi6284-09-16 03:53:00* Test Item Value Reference Range Interpretation Comments Urine Amphetamines Screen (test code = 70870-9) NEGATIVE NEGATI VE [facility] WorthU[facility] Methamphetamines Pfkpvr8485-09-83 03:53:00* Test Item Value Reference Range Interpretation Comments Urine Methamphetamines Screen (test code = Urine Metha mphetamines Screen) NEGATIVE NEGATIVE [facility] Worth[facility] Benzodiazepines Uwmggu4132-08-44 03:53:00* Test Item Value Reference Range Interpretation Comments Urine Benzodiazepines Screen (test code = 42720-7) NEGATIVE NEG ATIVE [facility] WorthU[facility] Cocaine Cfgzww3268-57-92 03:53:00* Test Item Value Reference Range Interpretation Comments Urine Cocaine Screen (test code = 3398-5) NEGATIVE NEGATIVE [facility] Worth[facility] Cannabinoids Zkiauq3767-99-14 03:53:00* Test Item Value Reference Range Interpretation Comments Urine Cannabinoids Screen (test code = 64935-2) NEGATIVE NEGATI VE THESE RESULTS ARE FOR MEDICAL TREATMENT ONLYTHIS REPORT CONTAINS UNCONFIR MED SCREENING RESULTS*POSITIVE RESULTS WILL BE CONFIRMED BY REFERENCE LAB UPON R EQUEST CUT-OFFDRUG CLASS CONCENTRATION ng/mLAmphetamines 1000Methamphetamines 1000Cocaine 300Opiate 300Phencyc lidine 25Cannabinoid 50Barbiturates 300Benzodiazepine 300Methadone 300[facility] Methadone Xwjopt5772-97-05 03:53:00* Test Item Value Reference Range Interpretation Comments Urine Methadone Screen (test code = 27800-0) NEGATIVE NEGATIVE THESE RESULTS ARE FOR MEDICAL TREATMENT ONLYTHIS REPORT CONTAINS UNCONFIR MED SCREENING RESULTS*POSITIVE RESULTS WILL BE CONFIRMED BY REFERENCE LAB UPON R EQUEST CUT-OFFDRUG CLASS CONCENTRATION ng/mLAmphetamines 1000Methamphetamines 1000Cocaine Metabolite 300Opiate 300Phencyc lidine 25Cannabinoid 50Barbiturates 300Benzodiazepine 300Methadone 300[facility] [place]odium Qflln4135-47-14 02:58:00* Test Item Value Reference Range Interpretation Comments Sodium Level (test code = 2951-2) 137 136-145 [facility] WorthPotassium Bcgzk0231-90-97 02:58:00* Test Item Value Reference Range Interpretation Comments Potassium Level (test code = 2823-3) 2.4 3.5-5.1 LL Results called to MP LILLY RN at 0257 on 02/09/18 by Jennifer Copeland. RB [place]. [facility] WorthChloride Naujy3850-16-10 02:58:00* Test Item Value Reference Range Interpretation Comments Chloride Level (test code = 2075-0) 99 98-107 [facility] WorthCarbon Dioxide Mcszc5203-24-80 02:58:00* Test Item Value Reference Range Interpretation Comments Carbon Dioxide Level (test code = 2028-9) 23 22-29 [facility] WorthAnion [id number] 02:58:00* Test Item Value Reference Range Interpretation Comments Anion Gap (test code = 62746-3) 17.4 8-16 H [facility] WorthBlood Urea Nvxfrzln1116-63-16 02:58:00* Test Item Value Reference Range Interpretation Comments Blood Urea Nitrogen (test code = 3094-0) 17 7-26 [facility] WorthCreatinine2018-12-23 02:58:00* Test Item Value Reference Range Interpretation Comments Creatinine (test code = 2160-0) 1.51 0.72-1.25 H [facility] WorthBUN/Creatinine Ypayo2784-71-68 02:58:00* Test Item Value Reference Range Interpretation Comments BUN/Creatinine Ratio (test code = 3097-3) 11 6-25 [facility] Fort WorthEstimat Glomerular Filtration Rate 2018-02-09 02:58:00* Test Item Value Reference Range Interpretation Comments Estimat Glomerular Filtration Rate (test code = 465954017) 50 >60 L Ranges were taken from the National Kidney Disease Education Program and the [facility] [employer] literature.Reference ranges:60 or greater: Rljcaj85-58 ( for 3 consecutive months): Chronic kidney disease 15 or less: Kidney failureB[facility] WorthGlucose Doxkm6696-91-75 02:58:00* Test Item Value Reference Range Interpretation Comments Glucose Level (test code = QMK4156) 189 74-118 H [facility] WorthCalcium Nkdiw3783-10-87 02:58:00* Test Item Value Reference Range Interpretation Comments Calcium Level (test code = 22980-3) 8.9 8.4-10.2 [facility] WorthTotal Ncwjtcfby4558-31-58 02:58:00* Test Item Value Reference Range Interpretation Comments Total Bilirubin (test code = 1975-2) 0.6 0.2-1.2 [facility] WorthAspartate Amino Transf (AST/SGOT) 2018-02-09 02:58:00* Test Item Value Reference Range Interpretation Comments Aspartate Amino Transf (AST/SGOT) (test code = Aspartate Amino Transf (AST/SGOT)) 24 5-34 [facility] WorthAlanine Aminotransferase (ALT/SGPT) 2018-02-09 02:58:00* Test Item Value Reference Range Interpretation Comments Alanine Aminotransferase (ALT/SGPT) (test code = 1742-6) 30 0-55 [facility] WorthTotal Dmfiasl6001-47-93 02:58:00* Test Item Value Reference Range Interpretation Comments Total Protein (test code = 2885-2) 6.9 6.5-8.1 [facility] WorthAlbumin2018-12-23 02:58:00* Test Item Value Reference Range Interpretation Comments Albumin (test code = 1751-7) 4.1 3.5-5.0 [facility] WorthGlobulin2018-12-23 02:58:00* Test Item Value Reference Range Interpretation Comments Globulin (test code = 04239-8) 2.8 2.3-3.5 [facility] WorthAlbumin/Globulin Fbvwu6925-24-92 02:58:00 * Test Item Value Reference Range Interpretation Comments Albumin/Globulin Ratio (test code = 1759-0) 1.5 0.8-2.0 [facility] WorthAlkaline Toxugkbcgnc4914-30-57 02:58:00* Test Item Value Reference Range Interpretation Comments Alkaline Phosphatase (test code = 6768-6) 74 40-150 [facility] WorthCreatine Ahxsqe5288-43-07 02:58:00* Test Item Value Reference Range Interpretation Comments Creatine Kinase (test code = 2157-6) 270 30-200 H [facility] WorthCreatine Kinase [id number] 02:58:00* Test Item Value Reference Range Interpretation Comments Creatine Kinase MB (test code = 11388-4) 3.30 0-5.0 [facility] WorthTroponin F5301-22-33 02:58:00* Test Item Value Reference Range Interpretation Comments Troponin I (test code = CTY5110) 0.141 0-0.300 [facility] WorthTotal Pbvuejtsb7396-60-22 02:58:00* Test Item Value Reference Range Interpretation Comments Total Bilirubin (test code = 1975-2) 0.6 0.2-1.2 [facility] WorthAspartate Amino Transf (AST/SGOT) 2018-02-09 02:58:00* Test Item Value Reference Range Interpretation Comments Aspartate Amino Transf (AST/SGOT) (test code = Aspartate Amino Transf (AST/SGOT)) 24 5-34 [facility] WorthAlanine Aminotransferase (ALT/SGPT) 2018-02-09 02:58:00* Test Item Value Reference Range Interpretation Comments Alanine Aminotransferase (ALT/SGPT) (test code = 1742-6) 30 0-55 [facility] WorthTotal Ztozzhj0207-29-91 02:58:00* Test Item Value Reference Range Interpretation Comments Total Protein (test code = 2885-2) 6.9 6.5-8.1 [facility] WorthAlbumin2018-12-23 02:58:00* Test Item Value Reference Range Interpretation Comments Albumin (test code = 1751-7) 4.1 3.5-5.0 [facility] WorthGlobulin2018-12-23 02:58:00* Test Item Value Reference Range Interpretation Comments Globulin (test code = 94075-2) 2.8 2.3-3.5 [facility] WorthAlbumin/Globulin Jpujb1874-88-91 02:58:00 * Test Item Value Reference Range Interpretation Comments Albumin/Globulin Ratio (test code = 1759-0) 1.5 0.8-2.0 [facility] WorthAlkaline Sksefkyiobt1347-48-01 02:58:00* Test Item Value Reference Range Interpretation Comments Alkaline Phosphatase (test code = 6768-6) 74 40-150 [facility] WorthWhite Blood Ubwma9224-96-77 02:29:00* Test Item Value Reference Range Interpretation Comments White Blood Count (test code = 6690-2) 6.65 4.8-10.8 [facility] WorthRed Blood Qlfmp9834-40-25 02:29:00* Test Item Value Reference Range Interpretation Comments Red Blood Count (test code = 789-8) 4.41 4.3-5.7 [facility] WorthHemoglobin2018-12-23 02:29:00* Test Item Value Reference Range Interpretation Comments Hemoglobin (test code = 04896-0) 13.7 14.0-18.0 L [facility] WorthHematocrit2018-12-23 02:29:00* Test Item Value Reference Range Interpretation Comments Hematocrit (test code = 4544-3) 39.9 38.2-49.6 [facility] WorthMean Corpuscular Ihlmdy1412-19-15 02:29:00* Test Item Value Reference Range Interpretation Comments Mean Corpuscular Volume (test code = 787-2) 90.5 81-99 [facility] WorthMean Corpuscular Jcflkiiwks9585-36-32 02:29:00* Test Item Value Reference Range Interpretation Comments Mean Corpuscular Hemoglobin (test code = 785-6) 31.1 28-32 [facility] Fort WorthMean Corpuscular Hemoglobin Concent 2018-02-09 02:29:00* Test Item Value Reference Range Interpretation Comments Mean Corpuscular Hemoglobin Concent (test code = 786-4) 34.3 31-35 [facility] WorthRed Cell Distribution Ijxex0501-91-28 02:29:00* Test Item Value Reference Range Interpretation Comments Red Cell Distribution Width (test code = 34828-6) 13.7 11.7 -14.4 [facility] WorthPlatelet Wttjr9619-96-93 02:29:00* Test Item Value Reference Range Interpretation Comments Platelet Count (test code = 777-3) 208 140-360 [facility] WorthNeutrophils (%) (Auto)2018-02-09 02:29:00 * Test Item Value Reference Range Interpretation Comments Neutrophils (%) (Auto) (test code = 90909-3) 56.9 38.7-80.0 [facility] WorthLymphocytes (%) (Auto)2018-02-09 02:29:00 * Test Item Value Reference Range Interpretation Comments Lymphocytes (%) (Auto) (test code = 736-9) 34.9 18.0-39.1 [facility] WorthMonocytes (%) (Auto)2018-02-09 02:29:00* Test Item Value Reference Range Interpretation Comments Monocytes (%) (Auto) (test code = 5905-5) 5.7 4.4-11.3 [facility] WorthEosinophils (%) (Auto)2018-02-09 02:29:00 * Test Item Value Reference Range Interpretation Comments Eosinophils (%) (Auto) (test code = 713-8) 1.7 0.0-6.0 [facility] WorthBasophils (%) (Auto)2018-02-09 02:29:00* Test Item Value Reference Range Interpretation Comments Basophils (%) (Auto) (test code = 706-2) 0.3 0.0-1.0 [facility] WorthIM GRANULOCYTES %2018-02-09 02:29:00* Test Item Value Reference Range Interpretation Comments IM GRANULOCYTES % (test code = IM GRANULOCYTES %) 0.5 0.0- 1.0 [facility] WorthNeutrophils # (Auto)2018-02-09 02:29:00* Test Item Value Reference Range Interpretation Comments Neutrophils # (Auto) (test code = 751-8) 3.8 2.1-6.9 [facility] WorthLymphocytes # (Auto)2018-02-09 02:29:00* Test Item Value Reference Range Interpretation Comments Lymphocytes # (Auto) (test code = 79188-6) 2.3 1.0-3.2 [facility] WorthMonocytes # (Auto)2018-02-09 02:29:00* Test Item Value Reference Range Interpretation Comments Monocytes # (Auto) (test code = 742-7) 0.4 0.2-0.8 [facility] WorthEosinophils # (Auto)2018-02-09 02:29:00* Test Item Value Reference Range Interpretation Comments Eosinophils # (Auto) (test code = 711-2) 0.1 0.0-0.4 [facility] WorthBasophils # (Auto)2018-02-09 02:29:00* Test Item Value Reference Range Interpretation Comments Basophils # (Auto) (test code = 704-7) 0.0 0.0-0.1 [facility] WorthAbsolute Immature Granulocyte (auto 2018-02-09 02:29:00* Test Item Value Reference Range Interpretation Comments Absolute Immature Granulocyte (auto (shahram t code = Absolute Immature Granulocyte (auto) 0.03 0-0.1 [facility] WorthVenous Blood [id number] 02:02:00* Test Item Value Reference Range Interpretation Comments Venous Blood pH (test code = Venous Blood pH) 7.435 7.35-7.3 8 H [facility] WorthVenous Blood Partial Pressure CO2 2018-02-09 02:02:00* Test Item Value Reference Range Interpretation Comments Venous Blood Partial Pressure CO2 (test code = Venous Blood Partial Pressure CO2) 36.1 44-48 L [facility] Partial Pressure O2 2018-02-09 02:02:00* Test Item Value Reference Range Interpretation Comments Venous Blood Partial Pressure O2 (test code = Venous B lood Partial Pressure O2) 37 40-41 L [facility] Blood [id number] 02:02:00* Test Item Value Reference Range Interpretation Comments Venous Blood HCO3 (test code = Venous Blood HCO3) 24.1 21-2 2 H [facility] Blood Total Carbon Dioxide 2018-02-09 02:02:00* Test Item Value Reference Range Interpretation Comments Venous Blood Total Carbon Dioxide (test code = Venous Blood Total Carbon Dioxide) 25 [facility] Blood Base Wswump5817-81-02 02:02:00* Test Item Value Reference Range Interpretation Comments Venous Blood Base Excess (test code = Venous Blood Base Excess) 0 [facility] Blood Oxygen Yntvnudyob2428-29-59 02:02:00* Test Item Value Reference Range Interpretation Comments Venous Blood Oxygen Saturation (test code = Venous Blood Oxy gen Saturation) 73 [facility] WorthFiO22018-12-23 02:02:00* Test Item Value Reference Range Interpretation Comments FiO2 (test code = FiO2) 21 PT ON [facility] Blood [id number] 02:02:00* Test Item Value Reference Range Interpretation Comments Venous Blood pH (test code = Venous Blood pH) 7.435 7.35-7.3 8 H [facility] Partial Pressure CO2 2018-02-09 02:02:00* Test Item Value Reference Range Interpretation Comments Venous Blood Partial Pressure CO2 (test code = Venous Blood Partial Pressure CO2) 36.1 44-48 L [facility] Blood Partial Pressure O2 2018-02-09 02:02:00* Test Item Value Reference Range Interpretation Comments Venous Blood Partial Pressure O2 (test code = Venous B lood Partial Pressure O2) 37 40-41 L [facility] Blood [id number] 02:02:00* Test Item Value Reference Range Interpretation Comments Venous Blood HCO3 (test code = Venous Blood HCO3) 24.1 21-2 2 H [facility] Blood Total Carbon Dioxide 2018-02-09 02:02:00* Test Item Value Reference Range Interpretation Comments Venous Blood Total Carbon Dioxide (test code = Venous Blood Total Carbon Dioxide) 25 [facility] Blood Base Egdnqa7279-40-00 02:02:00* Test Item Value Reference Range Interpretation Comments Venous Blood Base Excess (test code = Venous Blood Base Excess) 0 [facility] Oxygen Hzhvdwvbff1639-01-66 02:02:00* Test Item Value Reference Range Interpretation Comments Venous Blood Oxygen Saturation (test code = Venous Blood Oxy gen Saturation) 73 [facility] WorthFiO22018-12-23 02:02:00* Test Item Value Reference Range Interpretation Comments FiO2 (test code = FiO2) 21 PT ON RACHI [facility] Blood [id number] 02:02:00* Test Item Value Reference Range Interpretation Comments Venous Blood pH (test code = Venous Blood pH) 7.435 7.35-7.3 8 H [facility] Blood Partial Pressure CO2 2018-02-09 02:02:00* Test Item Value Reference Range Interpretation Comments Venous Blood Partial Pressure CO2 (test code = Venous Blood Partial Pressure CO2) 36.1 44-48 L [facility] Blood Partial Pressure O2 2018-02-09 02:02:00* Test Item Value Reference Range Interpretation Comments Venous Blood Partial Pressure O2 (test code = Venous B lood Partial Pressure O2) 37 40-41 L [facility] Blood [id number] 02:02:00* Test Item Value Reference Range Interpretation Comments Venous Blood HCO3 (test code = Venous Blood HCO3) 24.1 21-2 2 H [facility] Blood Total Carbon Dioxide 2018-02-09 02:02:00* Test Item Value Reference Range Interpretation Comments Venous Blood Total Carbon Dioxide (test code = Venous Blood Total Carbon Dioxide) 25 [facility] Blood Base Dhayta4239-80-28 02:02:00* Test Item Value Reference Range Interpretation Comments Venous Blood Base Excess (test code = Venous Blood Base Excess) 0 [facility] Oxygen Qbjntykrum8983-20-02 02:02:00* Test Item Value Reference Range Interpretation Comments Venous Blood Oxygen Saturation (test code = Venous Blood Oxy gen Saturation) 73 [facility] WorthFiO22018-12-23 02:02:00* Test Item Value Reference Range Interpretation Comments FiO2 (test code = FiO2) 21 PT ON RACHI [facility] Blood [id number] 02:02:00* Test Item Value Reference Range Interpretation Comments Venous Blood pH (test code = Venous Blood pH) 7.435 7.35-7.3 8 H [facility] Blood Partial Pressure CO2 2018-02-09 02:02:00* Test Item Value Reference Range Interpretation Comments Venous Blood Partial Pressure CO2 (test code = Venous Blood Partial Pressure CO2) 36.1 44-48 L [facility] Blood Partial Pressure O2 2018-02-09 02:02:00* Test Item Value Reference Range Interpretation Comments Venous Blood Partial Pressure O2 (test code = Venous B lood Partial Pressure O2) 37 40-41 L [facility] Blood [id number] 02:02:00* Test Item Value Reference Range Interpretation Comments Venous Blood HCO3 (test code = Venous Blood HCO3) 24.1 21-2 2 H [facility] Blood Total Carbon Dioxide 2018-02-09 02:02:00* Test Item Value Reference Range Interpretation Comments Venous Blood Total Carbon Dioxide (test code = Venous Blood Total Carbon Dioxide) 25 [facility] Blood Base Qtobmu0271-18-91 02:02:00* Test Item Value Reference Range Interpretation Comments Venous Blood Base Excess (test code = Venous Blood Base Excess) 0 [facility] Blood Oxygen Nhppexcepx6609-82-13 02:02:00* Test Item Value Reference Range Interpretation Comments Venous Blood Oxygen Saturation (test code = Venous Blood Oxy gen Saturation) 73 [facility] WorthFiO22018-12-23 02:02:00* Test Item Value Reference Range Interpretation Comments FiO2 (test code = FiO2) 21 PT ON [facility] Blood [id number] 02:02:00* Test Item Value Reference Range Interpretation Comments Venous Blood pH (test code = Venous Blood pH) 7.435 7.35-7.3 8 H [facility] Partial Pressure CO2 2018-02-09 02:02:00* Test Item Value Reference Range Interpretation Comments Venous Blood Partial Pressure CO2 (test code = Venous Blood Partial Pressure CO2) 36.1 44-48 L [facility] Partial Pressure O2 2018-02-09 02:02:00* Test Item Value Reference Range Interpretation Comments Venous Blood Partial Pressure O2 (test code = Venous B lood Partial Pressure O2) 37 40-41 L [facility] Blood [id number] 02:02:00* Test Item Value Reference Range Interpretation Comments Venous Blood HCO3 (test code = Venous Blood HCO3) 24.1 21-2 2 H [facility] Blood Total Carbon Dioxide 2018-02-09 02:02:00* Test Item Value Reference Range Interpretation Comments Venous Blood Total Carbon Dioxide (test code = Venous Blood Total Carbon Dioxide) 25 [facility] Blood Base [id number] 02:02:00* Test Item Value Reference Range Interpretation Comments Venous Blood Base Excess (test code = Venous Blood Base Excess) 0 [facility] Blood Oxygen Peivdqrrfc5720-88-36 02:02:00* Test Item Value Reference Range Interpretation Comments Venous Blood Oxygen Saturation (test code = Venous Blood Oxy gen Saturation) 73 [facility] WorthFiO22018-12-23 02:02:00* Test Item Value Reference Range Interpretation Comments FiO2 (test code = FiO2) 21 PT ON [facility] Blood [id number] 02:02:00* Test Item Value Reference Range Interpretation Comments Venous Blood pH (test code = Venous Blood pH) 7.435 7.35-7.3 8 H [facility] Blood Partial Pressure CO2 2018-02-09 02:02:00* Test Item Value Reference Range Interpretation Comments Venous Blood Partial Pressure CO2 (test code = Venous Blood Partial Pressure CO2) 36.1 44-48 L [facility] Partial Pressure O2 2018-02-09 02:02:00* Test Item Value Reference Range Interpretation Comments Venous Blood Partial Pressure O2 (test code = Venous B lood Partial Pressure O2) 37 40-41 L [facility] Blood [id number] 02:02:00* Test Item Value Reference Range Interpretation Comments Venous Blood HCO3 (test code = Venous Blood HCO3) 24.1 21-2 2 H [facility] Blood Total Carbon Dioxide 2018-02-09 02:02:00* Test Item Value Reference Range Interpretation Comments Venous Blood Total Carbon Dioxide (test code = Venous Blood Total Carbon Dioxide) 25 [facility] Blood Base Nfazkw7030-15-69 02:02:00* Test Item Value Reference Range Interpretation Comments Venous Blood Base Excess (test code = Venous Blood Base Excess) 0 [facility] Blood Oxygen [id number] 02:02:00* Test Item Value Reference Range Interpretation Comments Venous Blood Oxygen Saturation (test code = Venous Blood Oxy gen Saturation) 73 [facility] WorthFiO22018-12-23 02:02:00* Test Item Value Reference Range Interpretation Comments FiO2 (test code = FiO2) 21 PT ON RACHI [facility] Blood [id number] 02:02:00* Test Item Value Reference Range Interpretation Comments Venous Blood pH (test code = Venous Blood pH) 7.435 7.35-7.3 8 H [facility] Partial Pressure CO2 2018-02-09 02:02:00* Test Item Value Reference Range Interpretation Comments Venous Blood Partial Pressure CO2 (test code = Venous Blood Partial Pressure CO2) 36.1 44-48 L [facility] Blood Partial Pressure O2 2018-02-09 02:02:00* Test Item Value Reference Range Interpretation Comments Venous Blood Partial Pressure O2 (test code = Venous B lood Partial Pressure O2) 37 40-41 L [facility] Blood [id number] 02:02:00* Test Item Value Reference Range Interpretation Comments Venous Blood HCO3 (test code = Venous Blood HCO3) 24.1 21-2 2 H [facility] WorthVen[facility] Blood Total Carbon Dioxide 2018-02-09 02:02:00* Test Item Value Reference Range Interpretation Comments Venous Blood Total Carbon Dioxide (test code = Venous Blood Total Carbon Dioxide) 25 [facility] WorthVenous Blood Base [id number] 02:02:00* Test Item Value Reference Range Interpretation Comments Venous Blood Base Excess (test code = Venous Blood Base Excess) 0 [facility] WorthVen[facility] Blood Oxygen Iddbkstfpx6457-87-23 02:02:00* Test Item Value Reference Range Interpretation Comments Venous Blood Oxygen Saturation (test code = Venous Blood Oxy gen Saturation) 73 [facility] WorthFiO22018-12-23 02:02:00* Test Item Value Reference Range Interpretation Comments FiO2 (test code = FiO2) 21 [facility]2018-01-02 02:21:00 [place] [address] Patient Name: ARANZA LOPEZ MR #: [id number] : 1970 Age/Sex: 47/M Req #: [id number] Adm Physician: Ordered by: ORACIO STARR MD Report #: [id number] Location: ER Room/Bed: Procedure: [id number] DX/C HEST SINGLE (PORTABLE) Exam Date: Exam [...] IMPRESSION: No interval change Signed by: Dr. Camilo carvalho M.D. on 01/02/2018 2:22 AM Dictated By: CAMILO GODINEZ MD Electronica lly Signed By: CAMILO GODINEZ MD on 01/02/18221 Transcribed By: ADALBERTO on 221 COPY TO: ORACIO STARR MD B-Type Natriuretic Peptide 2018-01-02 02:20:00* Test Item Value Reference Range Interpretation Comments B-Type Natriuretic Peptide (test code = 58069-7) 15.5 0-100 [facility] WorthB-Type Natriuretic Htichgn9612-35-70 02:20:00* Test Item Value Reference Range Interpretation Comments B-Type Natriuretic Peptide (test code = 72606-0) 15.5 0-100 [facility] WorthProthrombin [id number] 02:10:00* Test Item Value Reference Range Interpretation Comments Prothrombin Time (test code = 5902-2) 19.3 11.9-14.5 H [facility] WorthProthromb Time International Ratio 2018-01-02 02:10:00* Test Item Value Reference Range Interpretation Comments Prothromb Time International Ratio (test code = 6301-6) 1.49 Oral Anticoagulant Therapy INR Values:1. Low Intensity Therapy 1.5 - 2.02 . Moderate Intensity Therapy 2.0 - 3.03. High Intensity Therapy(1) 2.5 - 3. 54. High Intensity Therapy(2) 3.0 - 4.05. Panic Value INR > 5.0 [facility] WorthActivated Partial Thromboplast Time 2018-01-02 02:10:00* Test Item Value Reference Range Interpretation Comments Activated Partial Thromboplast Time (test code = 10507-4) 40.0 23.8-35.5 H [facility] WorthProthrombin Ivcb3680-75-04 02:10:00* Test Item Value Reference Range Interpretation Comments Prothrombin Time (test code = 5902-2) 19.3 11.9-14.5 H [facility] WorthProthromb Time International Ratio 2018-01-02 02:10:00* Test Item Value Reference Range Interpretation Comments Prothromb Time International Ratio (test code = 6301-6) 1.49 Oral Anticoagulant Therapy INR Values:1. Low Intensity Therapy 1.5 - 2.02 . Moderate Intensity Therapy 2.0 - 3.03. High Intensity Therapy(1) 2.5 - 3. 54. High Intensity Therapy(2) 3.0 - 4.05. Panic Value INR > 5.0 [facility] WorthActivated Partial Thromboplast Time 2018-01-02 02:10:00* Test Item Value Reference Range Interpretation Comments Activated Partial Thromboplast Time (test code = 82526-6) 40.0 23.8-35.5 H [facility] WorthLactic Acid Dbsih9094-27-93 20:12:00* Test Item Value Reference Range Interpretation Comments Lactic Acid Level (test code = Lactic Acid Level) 14.5 4.5- 19.8 [facility] WorthLactic Acid Ihdhp5245-04-56 20:12:00* Test Item Value Reference Range Interpretation Comments Lactic Acid Level (test code = Lactic Acid Level) 14.5 4.5- 19.8 [facility] WorthLactic Acid Kisgp2148-37-81 20:12:00* Test Item Value Reference Range Interpretation Comments Lactic Acid Level (test code = Lactic Acid Level) 14.5 4.5- 19.8 [facility] WorthLactic Acid Nehjw2252-31-41 20:12:00* Test Item Value Reference Range Interpretation Comments Lactic Acid Level (test code = Lactic Acid Level) 14.5 4.5- 19.8 [facility] Dexhd2592-54-21 18:39:00* Test Item Value Reference Range Interpretation Comments Sodium Level (test code = 2951-2) 139 136-145 [facility] WorthPotassium Hddng5525-38-17 18:39:00* Test Item Value Reference Range Interpretation Comments Potassium Level (test code = 2823-3) 3.8 3.5-5.1 [facility] WorthChloride Mfnxk3086-97-47 18:39:00* Test Item Value Reference Range Interpretation Comments Chloride Level (test code = 2075-0) 100 98-107 [facility] WorthCarbon Dioxide Srdde8665-75-40 18:39:00* Test Item Value Reference Range Interpretation Comments Carbon Dioxide Level (test code = 2028-9) 25 22-29 [facility] WorthAnion Uli2726-67-89 18:39:00* Test Item Value Reference Range Interpretation Comments Anion Gap (test code = 74613-6) 17.8 8-16 H [facility] WorthBlood Urea Vbuynaig9309-53-37 18:39:00* Test Item Value Reference Range Interpretation Comments Blood Urea Nitrogen (test code = 3094-0) 17 7-26 [facility] WorthCreatinine2018-05-06 18:39:00* Test Item Value Reference Range Interpretation Comments Creatinine (test code = 2160-0) 1.32 0.72-1.25 H [facility] WorthBUN/Creatinine Wmxgs3299-79-52 18:39:00* Test Item Value Reference Range Interpretation Comments BUN/Creatinine Ratio (test code = 3097-3) 13 6-25 [facility] WorthEstimat Glomerular Filtration Rate 2017-06-23 18:39:00* Test Item Value Reference Range Interpretation Comments Estimat Glomerular Filtration Rate (test code = 11832-8) 58 >60 L Ranges were taken from the National Kidney Disease Education Program and the [facility] Kid[facility] Foundation literature.Reference ranges:60 or greater: Rghpbo19-71 ( for 3 consecutive months): Chronic kidney disease 15 or less: Kidney failureB[facility] WorthGlucose Ljewo7580-02-94 18:39:00* Test Item Value Reference Range Interpretation Comments Glucose Level (test code = BCU7048) 107 74-118 [facility] WorthCalcium Dekuf6779-86-21 18:39:00* Test Item Value Reference Range Interpretation Comments Calcium Level (test code = 74127-2) 9.5 8.4-10.2 [facility] WorthMagnesium Yddhk7524-04-39 18:39:00* Test Item Value Reference Range Interpretation Comments Magnesium Level (test code = 14006-0) 2.1 1.3-2.1 [facility] WorthTotal Kkbjwtmnp4459-08-19 18:39:00* Test Item Value Reference Range Interpretation Comments Total Bilirubin (test code = 1975-2) 0.4 0.2-1.2 [facility] WorthAspartate Amino Transf (AST/SGOT) 2017-06-23 18:39:00* Test Item Value Reference Range Interpretation Comments Aspartate Amino Transf (AST/SGOT) (test code = Aspartate Amino Transf (AST/SGOT)) 31 5-34 [facility] WorthAlanine Aminotransferase (ALT/SGPT) 2017-06-23 18:39:00* Test Item Value Reference Range Interpretation Comments Alanine Aminotransferase (ALT/SGPT) (test code = 1742-6) 23 0-55 [facility] WorthTotal Qnflmoj6324-49-41 18:39:00* Test Item Value Reference Range Interpretation Comments Total Protein (test code = 2885-2) 7.9 6.5-8.1 [facility] WorthAlbumin2018-05-06 18:39:00* Test Item Value Reference Range Interpretation Comments Albumin (test code = 1751-7) 3.9 3.5-5.0 [facility] WorthGlobulin2018-05-06 18:39:00* Test Item Value Reference Range Interpretation Comments Globulin (test code = 86745-2) 4.0 2.3-3.5 H [facility] WorthAlbumin/Globulin Nsyqk1396-51-55 18:39:00 * Test Item Value Reference Range Interpretation Comments Albumin/Globulin Ratio (test code = 1759-0) 1.0 0.8-2.0 [facility] WorthAlkaline Pdnyddlexfh6762-03-38 18:39:00* Test Item Value Reference Range Interpretation Comments Alkaline Phosphatase (test code = 6768-6) 89 40-150 [facility] WorthAmylase Tfadv3450-56-46 18:39:00* Test Item Value Reference Range Interpretation Comments Amylase Level (test code = 1798-8) 31 -125 [facility] WorthLipase2018-05-06 18:39:00* Test Item Value Reference Range Interpretation Comments Lipase (test code = 3040-3) 34 [facility] WorthAmylase Zhtyu3555-39-24 18:39:00* Test Item Value Reference Range Interpretation Comments Amylase Level (test code = 1798-8) 31 125 [facility] WorthLipase2018-05-06 18:39:00* Test Item Value Reference Range Interpretation Comments Lipase (test code = 3040-3) 34 [facility] WorthAmylase Hsazq6097-41-91 18:39:00* Test Item Value Reference Range Interpretation Comments Amylase Level (test code = 1798-8) 31 [facility] WorthLipase2018-05-06 18:39:00* Test Item Value Reference Range Interpretation Comments Lipase (test code = 3040-3) 34 [facility] WorthWhite Blood Obwcn6379-22-28 18:20:00* Test Item Value Reference Range Interpretation Comments White Blood Count (test code = 6690-2) 6.97 4.8-10.8 [facility] WorthRed Blood Xrncg7112-18-41 18:20:00* Test Item Value Reference Range Interpretation Comments Red Blood Count (test code = 789-8) 4.55 4.3-5.7 [facility] WorthHemoglobin2018-05-06 18:20:00* Test Item Value Reference Range Interpretation Comments Hemoglobin (test code = 86110-8) 14.1 14.0-18.0 [facility] WorthHematocrit2018-05-06 18:20:00* Test Item Value Reference Range Interpretation Comments Hematocrit (test code = 4544-3) 40.9 38.2-49.6 [facility] WorthMean Corpuscular Zmiqgb4264-87-82 18:20:00* Test Item Value Reference Range Interpretation Comments Mean Corpuscular Volume (test code = 787-2) 89.9 81-99 [facility] WorthMean Corpuscular Yhnkqwwbaa8750-53-77 18:20:00* Test Item Value Reference Range Interpretation Comments Mean Corpuscular Hemoglobin (test code = 785-6) 31.0 28-32 [facility] WorthMean Corpuscular Hemoglobin Concent 2017-06-23 18:20:00* Test Item Value Reference Range Interpretation Comments Mean Corpuscular Hemoglobin Concent (test code = 786-4) 34.5 31-35 [facility] WorthRed Cell Distribution Rnhbv9728-72-90 18:20:00* Test Item Value Reference Range Interpretation Comments Red Cell Distribution Width (test code = 71848-9) 13.5 11.7 -14.4 [facility] WorthPlatelet Agoqp4259-75-76 18:20:00* Test Item Value Reference Range Interpretation Comments Platelet Count (test code = 777-3) 235 140-360 [facility] WorthNeutrophils (%) (Auto)2017-06-23 18:20:00 * Test Item Value Reference Range Interpretation Comments Neutrophils (%) (Auto) (test code = 62037-3) 61.3 38.7-80.0 [facility] WorthLymphocytes (%) (Auto)2017-06-23 18:20:00 * Test Item Value Reference Range Interpretation Comments Lymphocytes (%) (Auto) (test code = 736-9) 28.8 18.0-39.1 [facility] WorthMonocytes (%) (Auto)2017-06-23 18:20:00* Test Item Value Reference Range Interpretation Comments Monocytes (%) (Auto) (test code = 5905-5) 6.9 4.4-11.3 [facility] WorthEosinophils (%) (Auto)2017-06-23 18:20:00 * Test Item Value Reference Range Interpretation Comments Eosinophils (%) (Auto) (test code = 713-8) 1.9 0.0-6.0 [facility] WorthBasophils (%) (Auto)2017-06-23 18:20:00* Test Item Value Reference Range Interpretation Comments Basophils (%) (Auto) (test code = 706-2) 0.4 0.0-1.0 [facility] WorthIM GRANULOCYTES %2017-06-23 18:20:00* Test Item Value Reference Range Interpretation Comments IM GRANULOCYTES % (test code = IM GRANULOCYTES %) 0.7 0.0- 1.0 [facility] WorthNeutrophils # (Auto)2017-06-23 18:20:00* Test Item Value Reference Range Interpretation Comments Neutrophils # (Auto) (test code = 751-8) 4.3 2.1-6.9 [facility] WorthLymphocytes # (Auto)2017-06-23 18:20:00* Test Item Value Reference Range Interpretation Comments Lymphocytes # (Auto) (test code = 32498-9) 2.0 1.0-3.2 [facility] WorthMonocytes # (Auto)2017-06-23 18:20:00* Test Item Value Reference Range Interpretation Comments Monocytes # (Auto) (test code = 742-7) 0.5 0.2-0.8 [facility] WorthEosinophils # (Auto)2017-06-23 18:20:00* Test Item Value Reference Range Interpretation Comments Eosinophils # (Auto) (test code = 711-2) 0.1 0.0-0.4 [facility] WorthBasophils # (Auto)2017-06-23 18:20:00* Test Item Value Reference Range Interpretation Comments Basophils # (Auto) (test code = 704-7) 0.0 0.0-0.1 [facility] WorthAbsolute Immature Granulocyte (auto 2017-06-23 18:20:00* Test Item Value Reference Range Interpretation Comments Absolute Immature Granulocyte (auto (shahram t code = Absolute Immature Granulocyte (auto) 0.05 0-0.1 [facility] WorthCreatine Kinase [id number] 14:18:00* Test Item Value Reference Range Interpretation Comments Creatine Kinase MB (test code = 78283-1) 1.10 0-5.0 [facility] WorthTroponin [id number] 14:18:00* Test Item Value Reference Range Interpretation Comments Troponin I (test code = IZN3639) -0.001 0-0.300 [facility] WorthCreatine Kinase [id number] 14:18:00* Test Item Value Reference Range Interpretation Comments Creatine Kinase MB (test code = 40666-3) 1.10 0-5.0 [facility] Fort WorthTropon [id number] 14:18:00* Test Item Value Reference Range Interpretation Comments Troponin I (test code = ELP2829) -0.001 0-0.300 [facility] WorthCreatine Jqcqnk7050-84-97 14:09:00* Test Item Value Reference Range Interpretation Comments Creatine Kinase (test code = 2157-6) 69 30-200 [facility] WorthCreatine Hmkcgm8110-68-75 14:09:00* Test Item Value Reference Range Interpretation Comments Creatine Kinase (test code = 2157-6) 69 30-200 [facility] WorthTriglycerides Mqxni1510-44-19 09:07:00* Test Item Value Reference Range Interpretation Comments Triglycerides Level (test code = 2571-8) 276 0-149 H [facility] WorthCholesterol Ramer6577-38-94 09:07:00* Test Item Value Reference Range Interpretation Comments Cholesterol Level (test code = 2093-3) 132 0-199 Less than 200 mg/dL Low Mksu515 - 239 mg/dL Borderline Uwgj909 m g/dl and greater High Risk [facility] WorthLDL Zkptwpxzcom2337-27-34 09:07:00* Test Item Value Reference Range Interpretation Comments LDL Cholesterol (test code = 2089-1) 52 60-130 L [facility] WorthHDL Dxuvfmqwmgq6087-64-56 09:07:00* Test Item Value Reference Range Interpretation Comments HDL Cholesterol (test code = 2085-9) 25 40-60 L [facility] WorthCholesterol/HDL Pahda4213-05-46 09:07:00 * Test Item Value Reference Range Interpretation Comments Cholesterol/HDL Ratio (test code = 9830-1) 5.3 3.9-4.7 H [facility] WorthTriglycerides Lxtwy4250-55-95 09:07:00* Test Item Value Reference Range Interpretation Comments Triglycerides Level (test code = 2571-8) 276 0-149 H [facility] WorthCholesterol Ppfeb8971-13-57 09:07:00* Test Item Value Reference Range Interpretation Comments Cholesterol Level (test code = 2093-3) 132 0-199 Less than 200 mg/dL Low Vjmg497 - 239 mg/dL Borderline Cvme167 m g/dl and greater High Risk [facility] WorthLDL Vqcjzcaowpu4891-83-16 09:07:00* Test Item Value Reference Range Interpretation Comments LDL Cholesterol (test code = 2089-1) 52 60-130 L [facility] Hklfvvktvpo0395-15-70 09:07:00* Test Item Value Reference Range Interpretation Comments HDL Cholesterol (test code = 2085-9) 25 40-60 L [facility] WorthCholesterol/HDL Eepqa7884-66-32 09:07:00 * Test Item Value Reference Range Interpretation Comments Cholesterol/HDL Ratio (test code = 9830-1) 5.3 3.9-4.7 H [facility] WorthTriglycerides Dlncq1629-79-78 09:07:00* Test Item Value Reference Range Interpretation Comments Triglycerides Level (test code = 2571-8) 276 0-149 H [facility] WorthCholesterol Jswxr1222-64-43 09:07:00* Test Item Value Reference Range Interpretation Comments Cholesterol Level (test code = 2093-3) 132 0-199 Less than 200 mg/dL Low Nwwd667 - 239 mg/dL Borderline Eaug270 m g/dl and greater High Risk [facility] WorthLDL Zbcyrnkbxyz1295-01-85 09:07:00* Test Item Value Reference Range Interpretation Comments LDL Cholesterol (test code = 2089-1) 52 60-130 L [facility] Clluotydfnk0406-93-17 09:07:00* Test Item Value Reference Range Interpretation Comments HDL Cholesterol (test code = 2085-9) 25 40-60 L [facility] WorthCholesterol/HDL Vdfka7639-29-71 09:07:00 * Test Item Value Reference Range Interpretation Comments Cholesterol/HDL Ratio (test code = 9830-1) 5.3 3.9-4.7 H [facility] WorthTriglycerides Nnhxt4350-20-12 09:07:00* Test Item Value Reference Range Interpretation Comments Triglycerides Level (test code = 2571-8) 276 0-149 H [facility] WorthCholesterol Qyiqi3217-32-66 09:07:00* Test Item Value Reference Range Interpretation Comments Cholesterol Level (test code = 2093-3) 132 0-199 Less than 200 mg/dL Low Olds462 - 239 mg/dL Borderline Jxve113 m g/dl and greater High Risk [facility] WorthLDL Znoqppslenr9667-68-02 09:07:00* Test Item Value Reference Range Interpretation Comments LDL Cholesterol (test code = 2089-1) 52 60-130 L [facility] WorthHDL Bhknfkfteox7123-89-69 09:07:00* Test Item Value Reference Range Interpretation Comments HDL Cholesterol (test code = 2085-9) 25 40-60 L [facility] WorthCholesterol/HDL Mqqqu7775-15-01 09:07:00 * Test Item Value Reference Range Interpretation Comments Cholesterol/HDL Ratio (test code = 9830-1) 5.3 3.9-4.7 [facility] Ijglb9437-00-92 23:14:00* Test Item Value Reference Range Interpretation Comments Sodium Level (test code = 2951-2) 139 136-145 [facility] WorthPotassium Lvmih2358-49-52 23:14:00* Test Item Value Reference Range Interpretation Comments Potassium Level (test code = 2823-3) 3.7 3.5-5.1 [facility] WorthChloride Zfzcc7322-69-16 23:14:00* Test Item Value Reference Range Interpretation Comments Chloride Level (test code = 2075-0) 106 98-107 [facility] WorthCarbon Dioxide Lgfqt0859-10-64 23:14:00* Test Item Value Reference Range Interpretation Comments Carbon Dioxide Level (test code = 2028-9) 25 22-29 [facility] Fort WorthAnion Vbk5918-33-65 23:14:00* Test Item Value Reference Range Interpretation Comments Anion Gap (test code = 88840-6) 11.7 8-16 [facility] WorthBlood Urea Vytjeyhe8502-52-91 23:14:00* Test Item Value Reference Range Interpretation Comments Blood Urea Nitrogen (test code = 3094-0) 14 7-26 [facility] WorthCreatinine2018-04-08 23:14:00* Test Item Value Reference Range Interpretation Comments Creatinine (test code = 2160-0) 1.27 0.72-1.25 H [facility] WorthBUN/Creatinine Qzbtt6613-73-28 23:14:00* Test Item Value Reference Range Interpretation Comments BUN/Creatinine Ratio (test code = 3097-3) 11 6-25 [facility] WorthEstimat Glomerular Filtration Rate 2017-05-26 23:14:00* Test Item Value Reference Range Interpretation Comments Estimat Glomerular Filtration Rate (test code = 26036-6) 60- >60 Ranges were taken from the National Kidney Disease Education Program and the [facility] Kidney Foundation literature.Reference ranges:60 or greater: Dmlkzp53-41 ( for 3 consecutive months): Chronic kidney disease 15 or less: Kidney failureB[facility] WorthGlucose Rhutv9350-72-47 23:14:00* Test Item Value Reference Range Interpretation Comments Glucose Level (test code = ZPG3387) 128 74-118 H [facility] WorthCalcium Fajje8245-26-06 23:14:00* Test Item Value Reference Range Interpretation Comments Calcium Level (test code = 80170-1) 8.8 8.4-10.2 [facility] WorthTotal Eermczaww5296-40-37 23:14:00* Test Item Value Reference Range Interpretation Comments Total Bilirubin (test code = 1975-2) 0.4 0.2-1.2 [facility] WorthAspartate Amino Transf (AST/SGOT) 2017-05-26 23:14:00* Test Item Value Reference Range Interpretation Comments Aspartate Amino Transf (AST/SGOT) (test code = Aspartate Amino Transf (AST/SGOT)) 21 5-34 [facility] WorthAlanine Aminotransferase (ALT/SGPT) 2017-05-26 23:14:00* Test Item Value Reference Range Interpretation Comments Alanine Aminotransferase (ALT/SGPT) (test code = 1742-6) 40 0-55 [facility] WorthTotal Rqhafgz5102-95-02 23:14:00* Test Item Value Reference Range Interpretation Comments Total Protein (test code = 2885-2) 6.6 6.5-8.1 [facility] WorthAlbumin2018-04-08 23:14:00* Test Item Value Reference Range Interpretation Comments Albumin (test code = 1751-7) 3.6 3.5-5.0 [facility] WorthGlobulin2018-04-08 23:14:00* Test Item Value Reference Range Interpretation Comments Globulin (test code = 97394-6) 3.0 2.3-3.5 [facility] WorthAlbumin/Globulin Brvcy7152-02-36 23:14:00 * Test Item Value Reference Range Interpretation Comments Albumin/Globulin Ratio (test code = 1759-0) 1.2 0.8-2.0 [facility] WorthAlkaline Chglhtcyixk4978-83-33 23:14:00* Test Item Value Reference Range Interpretation Comments Alkaline Phosphatase (test code = 6768-6) 88 40-150 [facility] WorthProthrombin Ujzu6442-63-77 23:07:00* Test Item Value Reference Range Interpretation Comments Prothrombin Time (test code = 5902-2) 13.7 11.9-14.5 [facility] WorthProthromb Time International Ratio 2017-05-26 23:07:00* Test Item Value Reference Range Interpretation Comments Prothromb Time International Ratio (test code = 6301-6) 1.14 Oral Anticoagulant Therapy INR Values:1. Low Intensity Therapy 1.5 - 2.02 . Moderate Intensity Therapy 2.0 - 3.03. High Intensity Therapy(1) 2.5 - 3. 54. High Intensity Therapy(2) 3.0 - 4.05. Panic Value INR > 5.0 [facility] WorthActivated Partial Thromboplast Time 2017-05-26 23:07:00* Test Item Value Reference Range Interpretation Comments Activated Partial Thromboplast Time (test code = 62245-7) 32.7 23.8-35.5 [facility] WorthProthrombin Xgkq6421-90-14 23:07:00* Test Item Value Reference Range Interpretation Comments Prothrombin Time (test code = 5902-2) 13.7 11.9-14.5 [facility] WorthProthromb Time International Ratio 2017-05-26 23:07:00* Test Item Value Reference Range Interpretation Comments Prothromb Time International Ratio (test code = 6301-6) 1.14 Oral Anticoagulant Therapy INR Values:1. Low Intensity Therapy 1.5 - 2.02 . Moderate Intensity Therapy 2.0 - 3.03. High Intensity Therapy(1) 2.5 - 3. 54. High Intensity Therapy(2) 3.0 - 4.05. Panic Value INR > 5.0 [facility] WorthActivated Partial Thromboplast Time 2017-05-26 23:07:00* Test Item Value Reference Range Interpretation Comments Activated Partial Thromboplast Time (test code = 09766-2) 32.7 23.8-35.5 [facility] WorthWhite Blood Pftni5921-75-78 22:59:00* Test Item Value Reference Range Interpretation Comments White Blood Count (test code = 6690-2) 7.14 4.8-10.8 [facility] WorthRed Blood Qpigx1676-89-03 22:59:00* Test Item Value Reference Range Interpretation Comments Red Blood Count (test code = 789-8) 4.32 4.3-5.7 [facility] WorthHemoglobin2018-04-08 22:59:00* Test Item Value Reference Range Interpretation Comments Hemoglobin (test code = 88365-0) 13.5 14.0-18.0 L [facility] WorthHematocrit2018-04-08 22:59:00* Test Item Value Reference Range Interpretation Comments Hematocrit (test code = 4544-3) 38.5 38.2-49.6 [facility] WorthMean Corpuscular Tnzgrq2130-67-39 22:59:00* Test Item Value Reference Range Interpretation Comments Mean Corpuscular Volume (test code = 787-2) 89.1 81-99 [facility] WorthMean Corpuscular Xymkmwrogj9451-57-68 22:59:00* Test Item Value Reference Range Interpretation Comments Mean Corpuscular Hemoglobin (test code = 785-6) 31.3 28-32 [facility] WorthMean Corpuscular Hemoglobin Concent 2017-05-26 22:59:00* Test Item Value Reference Range Interpretation Comments Mean Corpuscular Hemoglobin Concent (test code = 786-4) 35.1 31-35 H [facility] WorthRed Cell Distribution Pulmp6809-43-21 22:59:00* Test Item Value Reference Range Interpretation Comments Red Cell Distribution Width (test code = 89912-3) 13.1 11.7 -14.4 [facility] WorthPlatelet Eecex7013-56-87 22:59:00* Test Item Value Reference Range Interpretation Comments Platelet Count (test code = 777-3) 187 140-360 [facility] WorthNeutrophils (%) (Auto)2017-05-26 22:59:00 * Test Item Value Reference Range Interpretation Comments Neutrophils (%) (Auto) (test code = 62104-8) 56.3 38.7-80.0 [facility] WorthLymphocytes (%) (Auto)2017-05-26 22:59:00 * Test Item Value Reference Range Interpretation Comments Lymphocytes (%) (Auto) (test code = 736-9) 31.5 18.0-39.1 [facility] WorthMonocytes (%) (Auto)2017-05-26 22:59:00* Test Item Value Reference Range Interpretation Comments Monocytes (%) (Auto) (test code = 5905-5) 8.8 4.4-11.3 [facility] WorthEosinophils (%) (Auto)2017-05-26 22:59:00 * Test Item Value Reference Range Interpretation Comments Eosinophils (%) (Auto) (test code = 713-8) 2.1 0.0-6.0 [facility] WorthBasophils (%) (Auto)2017-05-26 22:59:00* Test Item Value Reference Range Interpretation Comments Basophils (%) (Auto) (test code = 706-2) 0.6 0.0-1.0 [facility] WorthIM GRANULOCYTES %2017-05-26 22:59:00* Test Item Value Reference Range Interpretation Comments IM GRANULOCYTES % (test code = IM GRANULOCYTES %) 0.7 0.0- 1.0 [facility] WorthNeutrophils # (Auto)2017-05-26 22:59:00* Test Item Value Reference Range Interpretation Comments Neutrophils # (Auto) (test code = 751-8) 4.0 2.1-6.9 [facility] WorthLymphocytes # (Auto)2017-05-26 22:59:00* Test Item Value Reference Range Interpretation Comments Lymphocytes # (Auto) (test code = 51491-0) 2.3 1.0-3.2 [facility] WorthMonocytes # (Auto)2017-05-26 22:59:00* Test Item Value Reference Range Interpretation Comments Monocytes # (Auto) (test code = 742-7) 0.6 0.2-0.8 [facility] WorthEosinophils # (Auto)2017-05-26 22:59:00* Test Item Value Reference Range Interpretation Comments Eosinophils # (Auto) (test code = 711-2) 0.2 0.0-0.4 [facility] WorthBasophils # (Auto)2017-05-26 22:59:00* Test Item Value Reference Range Interpretation Comments Basophils # (Auto) (test code = 704-7) 0.0 0.0-0.1 [facility] WorthAbsolute Immature Granulocyte (auto 2017-05-26 22:59:00* Test Item Value Reference Range Interpretation Comments Absolute Immature Granulocyte (auto (shahram t code = Absolute Immature Granulocyte (auto) 0.05 0-0.1 [facility] WorthTriglycerides Luzqi5510-26-93 07:06:00* Test Item Value Reference Range Interpretation Comments Triglycerides Level (test code = 2571-8) 248 0-149 H [facility] WorthCholesterol Idwhu3573-50-05 07:06:00* Test Item Value Reference Range Interpretation Comments Cholesterol Level (test code = 2093-3) 141 0-199 Less than 200 mg/dL Low Mqap655 - 239 mg/dL Borderline Ganf374 m g/dl and greater High Risk [facility] WorthLDL Lrcyitzeybo9607-83-87 07:06:00* Test Item Value Reference Range Interpretation Comments LDL Cholesterol (test code = 2089-1) 71 60-130 [facility] WorthHDL Uosspeahsnp8996-79-95 07:06:00* Test Item Value Reference Range Interpretation Comments HDL Cholesterol (test code = 2085-9) 20 40-60 L [facility] WorthCholesterol/HDL Bpdzf9914-87-63 07:06:00 * Test Item Value Reference Range Interpretation Comments Cholesterol/HDL Ratio (test code = 9830-1) 7.1 3.9-4.7 H [facility] WorthCreatine Kinase PG3609-19-11 18:11:00* Test Item Value Reference Range Interpretation Comments Creatine Kinase MB (test code = 07998-3) 1.30 0-5.0 [facility] WorthTroponin A7273-85-52 18:11:00* Test Item Value Reference Range Interpretation Comments Troponin I (test code = NJW9317) 0.006 0-0.300 [facility] WorthCreatine Dhlrlb8383-82-68 18:01:00* Test Item Value Reference Range Interpretation Comments Creatine Kinase (test code = 2157-6) 145 30-200 [facility] WorthUrine RSI1053-28-29 13:02:00* Test Item Value Reference Range Interpretation Comments Urine WBC (test code = 5821-4) 6-10 0-5 H [facility] WorthUrine LZF2349-08-43 13:02:00* Test Item Value Reference Range Interpretation Comments Urine RBC (test code = 57126-7) 0-5 0-5 [facility] WorthUrine Itcgodtb4973-10-23 13:02:00* Test Item Value Reference Range Interpretation Comments Urine Bacteria (test code = 94384-7) NONE NONE [facility] WorthUrine Epithelial Dmlqe3924-91-30 13:02:00 * Test Item Value Reference Range Interpretation Comments Urine Epithelial Cells (test code = 22839-0) NONE NONE [facility] Calcium Oxalate Agqvnfvm1539-94-36 13:02:00* Test Item Value Reference Range Interpretation Comments Urine Calcium Oxalate Crystals (test code = 5774-5) RARE FE W [facility] QAV5034-29-76 13:02:00* Test Item Value Reference Range Interpretation Comments Urine WBC (test code = 5821-4) 6-10 0-5 H [facility] WYF2118-09-39 13:02:00* Test Item Value Reference Range Interpretation Comments Urine RBC (test code = 54029-3) 0-5 0-5 [facility] Zuptooyp0978-39-56 13:02:00* Test Item Value Reference Range Interpretation Comments Urine Bacteria (test code = 55293-4) NONE NONE [facility] Epithelial Kanje0759-32-65 13:02:00 * Test Item Value Reference Range Interpretation Comments Urine Epithelial Cells (test code = 21078-3) NONE NONE [facility] Calcium Oxalate Xlwfjejr0035-31-09 13:02:00* Test Item Value Reference Range Interpretation Comments Urine Calcium Oxalate Crystals (test code = 5774-5) RARE FE W [facility] YGZ3669-19-66 13:02:00* Test Item Value Reference Range Interpretation Comments Urine WBC (test code = 5821-4) 6-10 0-5 H [facility] [id number] 13:02:00* Test Item Value Reference Range Interpretation Comments Urine RBC (test code = 72804-1) 0-5 0-5 [facility] Oclplxwm5453-53-88 13:02:00* Test Item Value Reference Range Interpretation Comments Urine Bacteria (test code = 80359-2) NONE NONE [facility] WorthUrine Epithelial Fynfr0558-32-03 13:02:00 * Test Item Value Reference Range Interpretation Comments Urine Epithelial Cells (test code = 64732-8) NONE NONE [facility] WorthUrine Calcium Oxalate Vryokyol6478-14-61 13:02:00* Test Item Value Reference Range Interpretation Comments Urine Calcium Oxalate Crystals (test code = 5774-5) [facility]ARE [facility] Oxalate Yesholve0304-98-26 13:02:00* Test Item Value Reference Range Interpretation Comments Urine Calcium Oxalate Crystals (test code = 5774-5) RARE [facility]roeU[facility] Calcium Oxalate Hoipibgn0434-60-31 13:02:00* Test Item Value Reference Range Interpretation Comments Urine Calcium Oxalate Crystals (test code = 5774-5) [facility] Umow6173-13-78 12:53:00* Test Item Value Reference Range Interpretation Comments Uric Acid (test code = 3084-1) 9.7 4.8-8.0 H [facility] WorthPhosphorus Akmic5574-49-71 12:53:00* Test Item Value Reference Range Interpretation Comments Phosphorus Level (test code = JZY4271) 3.8 2.3-4.7 [facility] WorthMagnesium Pxufo0161-75-43 12:53:00* Test Item Value Reference Range Interpretation Comments Magnesium Level (test code = 53359-7) 1.9 1.3-2.1 [facility] WorthUric Otmk4546-31-18 12:53:00* Test Item Value Reference Range Interpretation Comments Uric Acid (test code = 3084-1) 9.7 4.8-8.0 H [facility] WorthPhosphorus Ozdks0386-32-16 12:53:00* Test Item Value Reference Range Interpretation Comments Phosphorus Level (test code = LUF2329) 3.8 2.3-4.7 [facility] WorthMagnesium Kixqx4437-67-46 12:53:00* Test Item Value Reference Range Interpretation Comments Magnesium Level (test code = 62865-3) 1.9 1.3-2.1 [facility] WorthUric Huje7063-01-17 12:53:00* Test Item Value Reference Range Interpretation Comments Uric Acid (test code = 3084-1) 9.7 4.8-8.0 H [facility] WorthPhosphorus Drurc7180-98-69 12:53:00* Test Item Value Reference Range Interpretation Comments Phosphorus Level (test code = GEH9653) 3.8 2.3-4.7 [facility] WorthUric Rihi5248-26-43 12:53:00* Test Item Value Reference Range Interpretation Comments Uric Acid (test code = 3084-1) 9.7 4.8-8.0 H [facility] WorthPhosphorus Zxirr5722-68-13 12:53:00* Test Item Value Reference Range Interpretation Comments Phosphorus Level (test code = NPW7720) 3.8 2.3-4.7 [facility] WorthUric Otkr2415-56-59 12:53:00* Test Item Value Reference Range Interpretation Comments Uric Acid (test code = 3084-1) 9.7 4.8-8.0 H [facility] WorthPhosphorus Vixdk1516-34-82 12:53:00* Test Item Value Reference Range Interpretation Comments Phosphorus Level (test code = XLY3038) 3.8 2.3-4.7 [facility] WorthUrine Zcdjp6830-55-84 12:34:00* Test Item Value Reference Range Interpretation Comments Urine Color (test code = 5778-6) YELLOW YELLOW [facility] WorthUrine Ohurldy3047-14-49 12:34:00* Test Item Value Reference Range Interpretation Comments Urine Clarity (test code = 42363-2) CLEAR CLEAR [facility] WorthUrine Specific Nonrmbj8210-14-52 12:34:00 * Test Item Value Reference Range Interpretation Comments Urine Specific [place] (test code = 5811-5) 1.020 1.010-1.02 5 [facility] WorthUrine zK3648-29-38 12:34:00* Test Item Value Reference Range Interpretation Comments Urine pH (test code = 56731-3) 5 5-7 [facility] Leukocyte Amkzxlxi7225-21-18 12:34:00* Test Item Value Reference Range Interpretation Comments Urine Leukocyte Esterase (test code = 5799-2) 1+ NEGATIVE H [facility] Bxupzac3130-54-43 12:34:00* Test Item Value Reference Range Interpretation Comments Urine Nitrite (test code = 50000-8) NEGATIVE NEGATIVE [facility] WorthUrine Fnkupan7431-24-65 12:34:00* Test Item Value Reference Range Interpretation Comments Urine Protein (test code = 5804-0) NEGATIVE NEGATIVE [facility] Glucose (UA)2017-04-20 12:34:00* Test Item Value Reference Range Interpretation Comments Urine Glucose (UA) (test code = 2349-9) NEGATIVE NEGATIVE [facility] Iyquaig1050-03-24 12:34:00* Test Item Value Reference Range Interpretation Comments Urine Ketones (test code = 30947-7) TRACE NEGATIVE H [facility] Anakbhquufcx3576-68-06 12:34:00* Test Item Value Reference Range Interpretation Comments Urine Urobilinogen (test code = 33465-4) 0.2 0.2-1 [facility] Rrhryrtxr0009-93-61 12:34:00* Test Item Value Reference Range Interpretation Comments Urine Bilirubin (test code = 1978-6) 1+ NEGATIVE H Confirmatory test currently unavailable. False positive results may occur.[facility] Zbwqt9617-13-45 12:34:00* Test Item Value Reference Range Interpretation Comments Urine Blood (test code = 78624-8) NEGATIVE NEGATIVE [facility] Icpmd5970-62-28 12:34:00* Test Item Value Reference Range Interpretation Comments Urine Color (test code = 5778-6) YELLOW YELLOW [facility] Btyurgu8320-96-83 12:34:00* Test Item Value Reference Range Interpretation Comments Urine Clarity (test code = 70747-9) CLEAR CLEAR [facility] Specific Yiwqknq3849-35-67 12:34:00 * Test Item Value Reference Range Interpretation Comments Urine Specific [place] (test code = 5811-5) 1.020 1.010-1.02 5 [facility] sI8386-42-13 12:34:00* Test Item Value Reference Range Interpretation Comments Urine pH (test code = 51449-8) 5 5-7 [facility] Leukocyte Ekaeevyd4127-82-76 12:34:00* Test Item Value Reference Range Interpretation Comments Urine Leukocyte Esterase (test code = 5799-2) 1+ NEGATIVE H [facility] Wsvagqm0623-32-03 12:34:00* Test Item Value Reference Range Interpretation Comments Urine Nitrite (test code = 93897-7) NEGATIVE NEGATIVE [facility] Zzkdlfg1835-83-58 12:34:00* Test Item Value Reference Range Interpretation Comments Urine Protein (test code = 5804-0) NEGATIVE NEGATIVE [facility] Glucose (UA)2017-04-20 12:34:00* Test Item Value Reference Range Interpretation Comments Urine Glucose (UA) (test code = 2349-9) NEGATIVE NEGATIVE [facility] Wmpvabn8609-05-60 12:34:00* Test Item Value Reference Range Interpretation Comments Urine Ketones (test code = 26901-9) TRACE NEGATIVE H [facility] Cktgzonqxjbk1078-17-17 12:34:00* Test Item Value Reference Range Interpretation Comments Urine Urobilinogen (test code = 77636-2) 0.2 0.2-1 [facility] Mkqgbrqzk3089-42-17 12:34:00* Test Item Value Reference Range Interpretation Comments Urine Bilirubin (test code = 1978-6) 1+ NEGATIVE H Confirmatory test currently unavailable. False positive results may occur.[facility] Fscfm6445-49-38 12:34:00* Test Item Value Reference Range Interpretation Comments Urine Blood (test code = 87695-8) NEGATIVE NEGATIVE [facility] Krzfz8371-79-73 12:34:00* Test Item Value Reference Range Interpretation Comments Urine Color (test code = 5778-6) YELLOW YELLOW [facility] Zrnrsro9009-17-83 12:34:00* Test Item Value Reference Range Interpretation Comments Urine Clarity (test code = 43494-1) CLEAR CLEAR [facility] Specific Lvojyyl6444-02-70 12:34:00 * Test Item Value Reference Range Interpretation Comments Urine Specific [place] (test code = 5811-5) 1.020 1.010-1.02 5 [facility] sJ7870-08-22 12:34:00* Test Item Value Reference Range Interpretation Comments Urine pH (test code = 21894-6) 5 5-7 [facility] Leukocyte Ofkogsuq8328-33-61 12:34:00* Test Item Value Reference Range Interpretation Comments Urine Leukocyte Esterase (test code = 5799-2) 1+ NEGATIVE H [facility] Gxcgowe0529-87-98 12:34:00* Test Item Value Reference Range Interpretation Comments Urine Nitrite (test code = 38293-5) NEGATIVE NEGATIVE [facility] Pgsxbpz7482-04-53 12:34:00* Test Item Value Reference Range Interpretation Comments Urine Protein (test code = 5804-0) NEGATIVE NEGATIVE [facility] Glucose (UA)2017-04-20 12:34:00* Test Item Value Reference Range Interpretation Comments Urine Glucose (UA) (test code = 2349-9) NEGATIVE NEGATIVE [facility] Kgikrvc3118-61-15 12:34:00* Test Item Value Reference Range Interpretation Comments Urine Ketones (test code = 46937-2) TRACE NEGATIVE H [facility] Vmtthzviytjo5955-19-19 12:34:00* Test Item Value Reference Range Interpretation Comments Urine Urobilinogen (test code = 74350-7) 0.2 0.2-1 [facility] Mstukpgvi5094-14-67 12:34:00* Test Item Value Reference Range Interpretation Comments Urine Bilirubin (test code = 1978-6) 1+ NEGATIVE H Confirmatory test currently unavailable. False positive results may occur.[facility] Rghho0165-25-83 12:34:00* Test Item Value Reference Range Interpretation Comments Urine Blood (test code = 74991-1) [facility]GATIVE [facility] Sqwgb8905-75-67 23:28:00* Test Item Value Reference Range Interpretation Comments Sodium Level (test code = 2951-2) 140 136-145 [facility] WorthPotassium Vidye5664-32-09 23:28:00* Test Item Value Reference Range Interpretation Comments Potassium Level (test code = 2823-3) 3.2 3.5-5.1 L [facility] WorthChloride Pwzew7331-53-86 23:28:00* Test Item Value Reference Range Interpretation Comments Chloride Level (test code = 2075-0) 100 98-107 [facility] WorthCarbon Dioxide Muhnu7072-15-77 23:28:00* Test Item Value Reference Range Interpretation Comments Carbon Dioxide Level (test code = 2028-9) 26 22-29 [facility] Fort WorthAnion Dra4922-26-36 23:28:00* Test Item Value Reference Range Interpretation Comments Anion Gap (test code = 25161-3) 17.2 8-16 H [facility] WorthBlood Urea Hcrmquet6036-49-44 23:28:00* Test Item Value Reference Range Interpretation Comments Blood Urea Nitrogen (test code = 3094-0) 11 7-26 [facility] WorthCreatinine2018-03-02 23:28:00* Test Item Value Reference Range Interpretation Comments Creatinine (test code = 2160-0) 1.22 0.72-1.25 [facility] WorthBUN/Creatinine Jcvuu2788-96-05 23:28:00* Test Item Value Reference Range Interpretation Comments BUN/Creatinine Ratio (test code = 3097-3) 9 6-25 [facility] WorthEstimat Glomerular Filtration Rate 2017-04-19 23:28:00* Test Item Value Reference Range Interpretation Comments Estimat Glomerular Filtration Rate (test code = 21922-7) 60- >60 Ranges were taken from the National Kidney Disease Education Program and the [facility] Foundation literature.Reference ranges:60 or greater: Sxrwer37-07 ( for 3 consecutive months): Chronic kidney disease 15 or less: Kidney failureB[facility] WorthGlucose Fkhew0695-33-04 23:28:00* Test Item Value Reference Range Interpretation Comments Glucose Level (test code = QEO3881) 117 74-118 [facility] WorthCalcium Oioof5460-36-64 23:28:00* Test Item Value Reference Range Interpretation Comments Calcium Level (test code = 07307-4) 9.3 8.4-10.2 [facility] WorthTotal Vqhplphho3832-66-97 23:28:00* Test Item Value Reference Range Interpretation Comments Total Bilirubin (test code = 1975-2) 0.5 0.2-1.2 [facility] Fort WorthAspartate Amino Transf (AST/SGOT) 2017-04-19 23:28:00* Test Item Value Reference Range Interpretation Comments Aspartate Amino Transf (AST/SGOT) (test code = Aspartate Amino Transf (AST/SGOT)) 29 5-34 [facility] WorthAlanine Aminotransferase (ALT/SGPT) 2017-04-19 23:28:00* Test Item Value Reference Range Interpretation Comments Alanine Aminotransferase (ALT/SGPT) (test code = 1742-6) 37 0-55 [facility] Dgonjlk1688-05-97 23:28:00* Test Item Value Reference Range Interpretation Comments Total Protein (test code = 2885-2) 7.3 6.5-8.1 [facility] WorthAlbumin2018-03-02 23:28:00* Test Item Value Reference Range Interpretation Comments Albumin (test code = 1751-7) 3.8 3.5-5.0 [facility] WorthGlobulin2018-03-02 23:28:00* Test Item Value Reference Range Interpretation Comments Globulin (test code = 56691-2) 3.5 2.3-3.5 [facility] WorthAlbumin/Globulin Wjuyb0303-04-30 23:28:00 * Test Item Value Reference Range Interpretation Comments Albumin/Globulin Ratio (test code = 1759-0) 1.1 0.8-2.0 [facility] WorthAlkaline Lvsqxhbufvo3484-99-42 23:28:00* Test Item Value Reference Range Interpretation Comments Alkaline Phosphatase (test code = 6768-6) 92 40-150 [facility] WorthB-Type Natriuretic Zbqgzzy6412-52-96 23:28:00* Test Item Value Reference Range Interpretation Comments B-Type Natriuretic Peptide (test code = 14059-8) -12.0 0-100 [facility] WorthLipase2018-03-02 23:28:00* Test Item Value Reference Range Interpretation Comments Lipase (test code = 3040-3) 18 [facility] WorthB-Type Natriuretic Kpylyti4395-92-53 23:28:00* Test Item Value Reference Range Interpretation Comments B-Type Natriuretic Peptide (test code = 57328-6) -12.0 0-100 [facility] WorthLipase2018-03-02 23:28:00* Test Item Value Reference Range Interpretation Comments Lipase (test code = 3040-3) [facility] WorthB-Type Natriuretic Sdccewb1069-42-61 23:28:00* Test Item Value Reference Range Interpretation Comments B-Type Natriuretic Peptide (test code = 99902-3) -12.0 0-100 [facility] WorthProthrombin Wujy9750-81-12 23:22:00* Test Item Value Reference Range Interpretation Comments Prothrombin Time (test code = 5902-2) 14.2 11.9-14.5 [facility] WorthProthromb Time International Ratio 2017-04-19 23:22:00* Test Item Value Reference Range Interpretation Comments Prothromb Time International Ratio (test code = 6301-6) 1.19 Oral Anticoagulant Therapy INR Values:1. Low Intensity Therapy 1.5 - 2.02 . Moderate Intensity Therapy 2.0 - 3.03. High Intensity Therapy(1) 2.5 - 3. 54. High Intensity Therapy(2) 3.0 - 4.05. Panic Value INR > 5.0 [facility] WorthActivated Partial Thromboplast Time 2017-04-19 23:22:00* Test Item Value Reference Range Interpretation Comments Activated Partial Thromboplast Time (test code = 35892-7) 33.6 23.8-35.5 [facility] Fort WorthD-Dimer Quantitative (PE/DVT)2017-04-19 23:22:00* Test Item Value Reference Range Interpretation Comments D-Dimer Quantitative (PE/DVT) (test code = 50026-3) 0.56 0. 00-0.45 [facility] (PE/DVT)2017-04-19 23:22:00* Test Item Value Reference Range Interpretation Comments D-Dimer Quantitative (PE/DVT) (test code = 12564-4) 0.56 0. 00-0.45 H [facility] Worth[facility] (PE/DVT)2017-04-19 23:22:00* Test Item Value Reference Range Interpretation Comments D-Dimer Quantitative (PE/DVT) (test code = 24989-1) 0.56 0. 00-0.45 [facility] (PE/DVT)2017-04-19 23:22:00* Test Item Value Reference Range Interpretation Comments D-Dimer Quantitative (PE/DVT) (test code = 20732-7) 0.56 0. 00-0.45 [facility] (PE/DVT)2017-04-19 23:22:00* Test Item Value Reference Range Interpretation Comments D-Dimer Quantitative (PE/DVT) (test code = 98850-3) 0.56 0. 00-0.45 H [facility] WorthWhite Blood Wgbzt8396-87-72 23:09:00* Test Item Value Reference Range Interpretation Comments White Blood Count (test code = 6690-2) 5.52 4.8-10.8 [facility] Worth[facility] Blood Mvmrq3410-26-14 23:09:00* Test Item Value Reference Range Interpretation Comments Red Blood Count (test code = 789-8) 4.38 4.3-5.7 [facility] WorthHemoglobin2018-03-02 23:09:00* Test Item Value Reference Range Interpretation Comments Hemoglobin (test code = 26420-8) 13.8 14.0-18.0 L [facility] WorthHematocrit2018-03-02 23:09:00* Test Item Value Reference Range Interpretation Comments Hematocrit (test code = 4544-3) 39.1 38.2-49.6 [facility] WorthMean Corpuscular Rfhdct7452-69-19 23:09:00* Test Item Value Reference Range Interpretation Comments Mean Corpuscular Volume (test code = 787-2) 89.3 81-99 [facility] WorthMean Corpuscular Xbtlifehap5542-98-22 23:09:00* Test Item Value Reference Range Interpretation Comments Mean Corpuscular Hemoglobin (test code = 785-6) 31.5 28-32 [facility] WorthMean Corpuscular Hemoglobin Concent 2017-04-19 23:09:00* Test Item Value Reference Range Interpretation Comments Mean Corpuscular Hemoglobin Concent (test code = 786-4) 35.3 31-35 H [facility] WorthRed Cell Distribution Axfyn6466-96-06 23:09:00* Test Item Value Reference Range Interpretation Comments Red Cell Distribution Width (test code = 01423-0) 14.4 11.7 -14.4 [facility] WorthPlatelet Mnods5169-61-52 23:09:00* Test Item Value Reference Range Interpretation Comments Platelet Count (test code = 777-3) 202 140-360 [facility] WorthNeutrophils (%) (Auto)2017-04-19 23:09:00 * Test Item Value Reference Range Interpretation Comments Neutrophils (%) (Auto) (test code = 99123-4) 57.0 38.7-80.0 [facility] WorthLymphocytes (%) (Auto)2017-04-19 23:09:00 * Test Item Value Reference Range Interpretation Comments Lymphocytes (%) (Auto) (test code = 736-9) 33.0 18.0-39.1 [facility] WorthMonocytes (%) (Auto)2017-04-19 23:09:00* Test Item Value Reference Range Interpretation Comments Monocytes (%) (Auto) (test code = 5905-5) 6.9 4.4-11.3 [facility] WorthEosinophils (%) (Auto)2017-04-19 23:09:00 * Test Item Value Reference Range Interpretation Comments Eosinophils (%) (Auto) (test code = 713-8) 2.2 0.0-6.0 [facility] WorthBasophils (%) (Auto)2017-04-19 23:09:00* Test Item Value Reference Range Interpretation Comments Basophils (%) (Auto) (test code = 706-2) 0.4 0.0-1.0 [facility] WorthIM GRANULOCYTES %2017-04-19 23:09:00* Test Item Value Reference Range Interpretation Comments IM GRANULOCYTES % (test code = IM GRANULOCYTES %) 0.5 0.0- 1.0 [facility] WorthNeutrophils # (Auto)2017-04-19 23:09:00* Test Item Value Reference Range Interpretation Comments Neutrophils # (Auto) (test code = 751-8) 3.2 2.1-6.9 [facility] WorthLymphocytes # (Auto)2017-04-19 23:09:00* Test Item Value Reference Range Interpretation Comments Lymphocytes # (Auto) (test code = 78772-7) 1.8 1.0-3.2 [facility] WorthMonocytes # (Auto)2017-04-19 23:09:00* Test Item Value Reference Range Interpretation Comments Monocytes # (Auto) (test code = 742-7) 0.4 0.2-0.8 [facility] WorthEosinophils # (Auto)2017-04-19 23:09:00* Test Item Value Reference Range Interpretation Comments Eosinophils # (Auto) (test code = 711-2) 0.1 0.0-0.4 [facility] WorthBasophils # (Auto)2017-04-19 23:09:00* Test Item Value Reference Range Interpretation Comments Basophils # (Auto) (test code = 704-7) 0.0 0.0-0.1 [facility] WorthAbsolute Immature Granulocyte (auto 2017-04-19 23:09:00* Test Item Value Reference Range Interpretation Comments Absolute Immature Granulocyte (auto (shahram t code = Absolute Immature Granulocyte (auto) 0.03 0-0.1 [facility], Enwzbgimojhf1101-58-40 09:54:00 * Test Item Value Reference Range Interpretation Comments D-Dimer, Quant (test code = DDQNT) 620 ng/mL 0-500 H Troponin Y0071-61-80 09:37:00* Test Item Value Reference Range Interpretation Comments Troponin T (test code = JOSÉ) <0.010 ng/mL 0.000-0.090 N Comprehensive Metabolic Ceynj0176-58-22 09:37:00* Test Item Value Reference Range Interpretation [...] race is not provided, and the patient isAfrican-Tuvaluan, multiply by 1.212. If sex is not [...] the National Kidney Found ation,http://nkdep.nih.gov CBC with Swxzkcnfewct0301-81-80 09:00:00* Test Item Value Reference Range Interpretation [...] code = ALYMPH) 1.4 K/cumm 0.5-4.6 N [place] Abs (test code = AMONO) 0.4 K/cumm 0.0-1.2 N Eos Abs (test code = AEOS) 0.18 K/cumm 0.00-0.74 N Baso Abs (test code = ABASO) 0.0 K/cumm 0.00-0.21 N Glucose blood mkzhlqlhakz2019-54-49 11:05:00* Test Item Value Reference Range Interpretation Comments Glucose blood fingerstick (test code = OCS0588) 173 mg/dL 65-120 Complete blood count (CBC) with automated white blood cell (WBC) differential 2016-06-07 06:15:00* Test Item Value Reference Range Interpretation Comments White blood cell count (test code = KZK2127) 6.0 4.3-10.9 Blood erythrocytes count (number/volume) (test code = 88527- 1) 4.52 M/ul 4.33-5.43 Hemoglobin measurement (test code = AUW7974) 13.6 g/dL 13.6-17.9 Blood hematocrit (volume fraction) (test code = 26479-2) 39.7 % 39.6-49.0 MCV (test code = 61336-6) 87.7 fL 80-100 MCH (test code = 05369-5) 30.0 pg 27.0-35.0 MCHC (test code = MCHC) 34.2 g/dL 32.0-36.0 Platelets (test code = PLT) 184 152-406 Red Cell Distribution Width (test code = RDW) 15.0 % 12.1-15. 2 Blood platelet mean volume (test code = 23619-5) 8.2 fL 7.6-1 1.3 Neutrophils % (test code = RENETTA%) 61.7 % 41.7-73.7 Lymphocytes/leuk NFr Bld (test code = 59257-9) 26.6 % 15.3-44 .8 Monocyte percentage (test code = 5905-5) 9.0 % 3.3-12.3 Eosinophil % (test code = 713-8) 1.9 % 0-4.4 Basophil % (test code = 92769-5) 0.8 % 0-1.3 Absolute neutrophil count (test code = 751-8) 3.7 1.8-8.0 Absolute lymphocyte count (test code = 70913-0) 1.6 0.7-4. 9 Absolute monocyte count (test code = 742-7) 0.5 0.1-1.3 Absolute Eosinophils (test code = EOA) 0.1 0-0.5 Absolute Basophils (test code = BASA) 0.0 0-0.5 [facility] EnglishVander[facility]ern V8467-42-88 05:57:00* Test Item Value Reference Range Interpretation Comments Troponin I (test code = TROP) < 0.03 <0.03 Primary Language Finnish Physician Instructions Edit Troponin Times according to first ED TroponinBasi Metabolic Yxhdq6881-40-83 05:55:00 * Test Item Value Reference Range Interpretation Comments Sodium level (test code = UWY8025) 139 meq/L 135-145 4.0 Chloride measurement (test code = KDT5090) 107 meq/L 101-111 Bicarbonate (test code = CO2) 26 meq/L 21-31 Glucose measurement (test code = BET8959) 112 mg/dL 65-120 ADA Clinical Practice Recommendation: <100 mg/dl = Normal Fasting Glucose BUN Bld-mCnc (test code = 6299-2) 14 mg/dL 6-20 Creatinine measurement (test code = KLP6099) 0.99 mg/dL 0.61-1.24 The creatinine method used has been calibrated to be traceable to Isotope dilution Mass Spectrometry (IDMS). For more information: www.nkdep.nih.gov Estimated glomerular filtration rate (GFR) determinati on (test code = 79033-7) 81 mL =/>90 L FOR CHRONIC KIDNEY [...] = CA) 9.1 mg/dL 8.5-10.5 Primary Language Englishoponin F1691-08-16 22:43:00* Test Item Value Reference Range Interpretation Comments Troponin I (test code = TROP) < 0.03 <0.03 Primary Language Finnish Physician Instructions Edit Troponin Times according to first ED TroponinUrine dipstick testing at hzpmh-pr-khzq 2016-06-06 17:00:00* Test Item Value Reference Range Interpretation Comments Urine specific gravity measurement (test code = 2965-2) 1.020 1.005-1.030 Urine glucose detection (test code = 2349-9) Negative NEG Urine Ketones (test code = UKET) NEGATIVE NEG Urine blood detection (test code = 18632-4) Negative NEG Urine pH (test code = 2756-5) 6.0 5.0-7.0 Urinalysis with microscopy (test code = 84171-4) NEGATIVE NEG Urine nitrate measurement (test code = 75487-1) NEGATIVE NEG Urine Leukocyte Esterase (test code = UESTR) TRACE NEG AA Comment Bed:20 mc NEG NEG NEG TRACE NEG 6.0 NEG Y 1.020Brain natriuretic peptide (BNP) fhqykbzysjs9354-94-07 15:04:00* Test Item Value Reference Range Interpretation Comments Brain natriuretic peptide (BNP) measurement (test code = 309 34-4) 46 pg/mL <=100 Basic Metabolic Cjhxg4055-45-20 14:54:00* Test Item Value Reference Range Interpretation Comments Sodium level (test code = WIL5223) 140 meq/L 135-145 3.6 Chloride measurement (test code = IGT8967) 105 meq/L 101-111 Bicarbonate (test code = CO2) 24 meq/L 21-31 Glucose measurement (test code = BPX3535) 115 mg/dL 65-120 ADA Clinical Practice Recommendation: <100 mg/dl = Normal Fasting Glucose BUN Bld-mCnc (test code = 6299-2) 12 mg/dL 6-20 Creatinine measurement (test code = IMS6439) 1.02 mg/dL 0.61-1.24 The creatinine method used has been calibrated to be traceable to Isotope dilution Mass Spectrometry (IDMS). For more information: www.nkdep.nih.gov Estimated glomerular filtration rate (GFR) determinati on (test code = 96136-4) 79 mL =/>90 L FOR CHRONIC KIDNEY [...] = CA) 9.3 mg/dL 8.5-10.5 Liver (Hepatic) Zrkgfazv5151-49-66 14:54:00* Test Item Value Reference Range Interpretation Comments Aspartate aminotransferase (AST) measurement (test code = IM O0002) 22 [iU]/L 10-42 ALT/SGPT (test code = SGPT) 23 [iU]/L 10-60 Alkaline Phosphatase (test code = ALK) 76 [iU]/L 42-121 Bilirubin total (test code = QFA7975) 0.8 mg/dL 0.3-1.2 Bilirubin direct (test code = 1968-7) 0.1 mg/dL 0-0.2 Serum total protein measurement (test code = 2885-2) 6.5 g/dL 6 .0-8.3 Albumin measurement (test code = TMK8156) 4.1 g/dL 3.2-5.5 Globulin (test code = GLOB) 2.4 g/dL 2.3-3.5 Albumin/Globulin Ratio (test code = A/G) 1.7 1.1-1.8 Creatine Luipprlptnyxt2767-71-23 14:54:00* Test Item Value Reference Range Interpretation Comments Creatine Phosphokinase (test code = CPK) 114 [iU]/L 22-269 CKMB Creatine Kinase RZ7436-72-81 14:54:00* Test Item Value Reference Range Interpretation Comments CKMB Creatine Kinase MB (test code = CKMB) 1.6 ng/mL 0.3-4.0 Magnesium hyxjmawhizs3042-09-51 14:54:00* Test Item Value Reference Range Interpretation Comments Magnesium measurement (test code = 41800-2) 1.9 mg/dL 1.8-2.5 Troponin (Emerg Dept Use [...] Blood by Coagulation assay (test code = 93420-4) 1.04 Monitor pts using INR value (not prothrombin time) INR Coumadin Therapy: Low Range (prophylaxis) 2.0-3.0 High Range (high risk of clot formation) 2.5-3.5 Test Ordered to Rule Out VTE/DVT? N Test Ordered to Rule Out VTE/DVT? NPTT, Activated Partial Dtujal4593-56-31 14:40:00* Test Item Value Reference Range Interpretation Comments PTT, Activated Partial Thromb (test code = PTT) 33.2 s 24.3-3 6.9 Test Ordered to Rule Out VTE/DVT? N Test Ordered to Rule Out VTE/DVT? NComplete blood count (CBC) with automated white blood cell (WBC) dmzdljiokzqw8969-78-55 14:37:00* Test Item Value Reference Range Interpretation Comments White blood cell count (test code = KPG4093) 6.2 4.3-10.9 Blood erythrocytes count (number/volume) (test code = 69918- 1) 4.87 M/ul 4.33-5.43 Hemoglobin measurement (test code = OTI1938) 14.4 g/dL 13.6-17.9 Blood hematocrit (volume fraction) (test code = 82456-0) 42.5 % 39.6-49.0 MCV (test code = 36151-8) 87.3 fL 80-100 MCH (test code = 46048-7) 29.5 pg 27.0-35.0 MCHC (test code = MCHC) 33.8 g/dL 32.0-36.0 Platelets (test code = PLT) 213 152-406 Red Cell Distribution Width (test code = RDW) 14.6 % 12.1-15. 2 Blood platelet mean volume (test code = 34465-5) 8.2 fL 7.6-1 1.3 Neutrophils % (test code = RENETTA%) 56.1 % 41.7-73.7 Lymphocytes/leuk NFr Bld (test code = 11109-1) 33.4 % 15.3-44 .8 Monocyte percentage (test code = 5905-5) 8.3 % 3.3-12.3 Eosinophil % (test code = 713-8) 1.5 % 0-4.4 Basophil % (test code = 84784-5) 0.7 % 0-1.3 Absolute neutrophil count (test code = 751-8) 3.5 1.8-8.0 Absolute lymphocyte count (test code = 60078-0) 2.1 0.7-4. 9 Absolute monocyte count (test code = 742-7) 0.5 0.1-1.3 Absolute Eosinophils (test code = EOA) 0.1 0-0.5 Absolute Basophils (test code = BASA) 0.0 0-0.5 CT ABDOMEN/PELVIS W [place] [address] Patient Name: ARANZA LOPEZ MR #: [id number] : 1970 Age/Sex: 47/M Req #: [id number] Adm Physician: Ordered by: [address] [employer] Report #: [id number] Location: ER Room/Bed: Procedure: [id number] CT/CT ABDOMEN/PELVIS W Exam D ate: 06/23/17 [...] the abdomen or pelvis. Signed by: Dr. Camilo Fontanez M.D. on 06/23/2017 7:33 PM Dictated By: CAMILO GODINEZ MD Electr onically Signed By: CAMILO GODINEZ MD on 06/23/171932 Transcribed By: ADALBERTO frost 06/23/171932 COPY TO: RUFINA STREET NP CT BRAIN WO [place] [address] Patient Name: ARANZA LOPEZ MR #: [id number] : 10/1970 Age/Sex: 46/M Req #: [id number] Adm Physician: Ordered by: AZAEL HARMAN MD Report #: [id number] Location: ER Room /Bed: Procedure: [id number] CT/CT BRAIN WO Exam Date: 05/26/17 Exam [...] on 05/26/2017 10:31 PM Dictated By: ONEIDA Fajardo radha Signed By: ONEIDA BROWNING MD on 05/26/172230 Transcribed By: ADALBERTO on 05/26/172230 COPY TO: AZAEL HARMAN MD [facility] [place] [address] Patient Name: ARANZA LOPEZ MR #: [id number] : 1970 Age/Sex: 46/M Req #: [id number] Adm Physician: Ordered by: AZAEL HARMAN MD Report #: [id number] Location: ER Room/Bed: Procedure: [id number] DX/CHEST SINGLE (PORTABLE) Exam Date: 05/26/17 Exam [...] TO: AZAEL HARMAN MD CHEST SINGLE (PORTABLE) [place] [address] Patient Name: ARANZA LOPEZ MR #: [id number] : 10/1970 Age/Sex: 46/M Req #: [id number] Adm Physician: Ordered by: SARA IVERSON MD Report #: [id number] Location: ER Room/Bed: Procedure: DX/CHEST SINGLE (PORTABLE) [...] Vicente on 04/20/2017 12:22 AM Dictated By: CAMILO GODINEZ MD Electronically Sig pedro By: CAMILO GODINEZ MD on 04/20/17 0022 Transcribed By: ADALBERTO on 04/20/17 0 022 COPY TO: SARA IVERSON MD CT CHEST W [place] [address] Patient Name: ARANZA LOPEZ MR #: [id number] : 1970 Age/Sex: 46/M Req #: [id number] Adm Physician: Ordered by: SARA IVERSON MD Report #: [id number] Location: ER Room/Bed: Procedure: CT/CT CHEST W Exam Date: 8 Exam [...] bilateral gynecomastia. Surgical changes of median sternot adoer. IMPRESSION: Low inspiration with predominantly perihilar and right m iddle lobe atelectasis and bronchial thickening, which could be seen secondary to chronic changes or acute bronchitis. No evidence of a pulmonary embol ism. Signed by: Dr. Camilo Godinez M.D. on 04/20/2017 12:30 AM Dictated By: CAMILO GODINEZ MD Transcribed By: ADALBERTO on 04/20/1729 COPY TO: Kassandra IVERSON MD
--- NOTE | 2019-07-28 02:00 | NUR ---
COVID SWAB OBTAINED
[2019-07-28] MEDS: HYDROMORPHONE 1MG/1ML INJ IV PRN ×4 (03:32→19:50)
[2019-07-28] MEDS: PROMETHAZINE 12.5MG/ NACL 0.9% 12.5 MG/50 ML BAG IV PRN ×3 (03:35→19:50)
[2019-07-28] MEDS ORDERED: TRAZODONE HCL50 MG PO (05:01)
[2019-07-28] MEDS ORDERED: TYLENOL WITH C1 EACH PO (05:01)
[2019-07-28] MEDS ORDERED: METRONIDAZOLE500 MG PO (05:01)
[2019-07-28] MEDS ORDERED: PROVENTIL HFA6.7 GM INH (05:01)
[2019-07-28] MEDS ORDERED: NITROGLYCERIN0.4 MG SL (05:01)
[2019-07-28] MEDS ORDERED: CIPROFLOXA500 MG/5 M PO (05:01)
--- NOTE | 2019-07-28 06:20 | NUR ---
Spoke with answering service (Fanny) for Dr. Ospina to notify of routine consult. Reason for consult is Chest pain. Awaiting on MD call back or rounding on the floor to see patient. Will pass this information to incoming dayshift RN.
[2019-07-28] MEDS: SODIUM CHLORIDE 0.9% 1000ML 1,000 ML IV SCH ×3 (08:18→23:00)
[2019-07-28 08:54] LABS: BASOPHILS % 0.6 % (0.0-1.0); EOSINOPHILS # (AUTO) 0.1 (0.0-0.4); EOSINOPHILS % 1.6 % (0.0-6.0); HEMATOCRIT 38.4 % (38.2-49.6); HEMOGLOBIN 12.7 g/dL (14.0-18.0); LYMPHOCYTES # (AUTO) 1.8 (1.0-3.2); LYMPHOCYTES % 34.7 % (18.0-39.1); MEAN CORPUSCULAR HEMOGLOBIN 30.2 pg (28-32); MEAN CORPUSCULAR HGB CONC 33.1 g/dL (31-35); MEAN CORPUSCULAR VOLUME 91.2 fL (81-99); MONOCYTES # (AUTO) 0.5 (0.2-0.8); MONOCYTES % 9.1 % (4.4-11.3); NEUTROPHILS # (AUTO) 2.7 (2.1-6.9); NEUTROPHILS % 53.4 % (38.7-80.0); PLATELET COUNT 200 x10e3/uL (140-360); RED BLOOD COUNT 4.21 x10e6/uL (4.3-5.7); RED CELL DISTRIBUTION WIDTH 13.9 % (11.7-14.4)
[2019-07-28 09:09] LABS: ALANINE AMINOTRANSFERASE 25 IU/L (0-55); ALBUMIN 3.3 g/dL (3.5-5.0); ALBUMIN/GLOBULIN RATIO 1.3 (0.8-2.0); ALKALINE PHOSPHATASE 63 IU/L (40-150); ANION GAP 14.1 mmol/L (8-16); BLOOD UREA NITROGEN 14 mg/dL (7-26); BUN/CREATININE RATIO 15 (6-25); CALCIUM 8.4 mg/dL (8.4-10.2); CARBON DIOXIDE 23 mmol/L (22-29); CHLORIDE 105 mmol/L (98-107); CREATININE, SERUM 0.91 mg/dL (0.72-1.25); EST GLOMERULAR FILTRATION RATE > 60 ML/MIN (60-); GLUCOSE 217 mg/dL (74-118); POTASSIUM 3.1 mmol/L (3.5-5.1); SODIUM 139 mmol/L (136-145)
[2019-07-28 09:56] LABS: CREATINE KINASE MB 6.7 ng/mL (0-5.0)
[2019-07-28] MEDS ORDERED: NITROGLYCERIN 0.4 MG SUBL SL PRN (10:00)
[2019-07-28] MEDS ORDERED: IOPAMIDOL 370 MG/ML 200 ML INFUS..BTL INJ ONE (10:32)
[2019-07-28] MEDS ORDERED: SODIUM CHLORIDE 0.9% 100 ML ONE (10:32)
--- NOTE | 2019-07-28 11:54 | Diagnostic Imaging Report ---
CT of the chest, with contrast, 07/28/2019. History: Chest pain. Comparison: Chest x-ray 07/27/2019. Technique: Multidetector CT scanning of the chest was performed from the level of the apices to the upper abdomen before and after intravenous administration of contrast. Coronal and sagittal multiplanar and 3-D reformations were obtained. RADIATION DOSE: Total DLP: 1248 mGy*cm Dose modulation, iterative reconstruction, and/or weight based adjustment of the mA/kV was utilized to reduce the radiation dose to as low as reasonably achievable. Discussion: Chest: Suture material is present in the ascending aorta consistent with prior surgery. The thoracic aorta is within normal limits for size without evidence of dissection or aneurysm. The heart and main pulmonary artery are mildly enlarged. The thyroid is unremarkable. There is no evidence of axillary or mediastinal adenopathy. There is right middle lobe and bibasilar linear scarring. There is no evidence of consolidation, mass, or pleural effusion. Limited evaluation of the upper abdomen shows normal adrenal glands. Diffuse low-density of the liver is noted. Cholecystectomy clips are also present. Bones and soft tissues: No acute abnormality. Median sternotomy wires are present. Degenerative changes are noted in the thoracic spine. There is mild bilateral gynecomastia. IMPRESSION: 1. Mild chronic cardiomegaly and pulmonary artery enlargement. 2. Prior surgery involving the ascending thoracic aorta is noted. There is no evidence of aortic aneurysm or dissection. 3. No acute pulmonary abnormality. Signed by: Jitendra Goldman on 07/28/2019 11:51 AM
[2019-07-28] MEDS: FUROSEMIDE 40 MG TAB PO SCH ×2 (13:08→16:38)
[2019-07-28] MEDS: ISOSORBIDE MONONITRATE 30 MG TAB CR PO SCH (13:09)
[2019-07-28 16:05] LABS: CREATINE KINASE MB 7.7 ng/mL (0-5.0)
[2019-07-28] MEDS: METOPROLOL TARTRATE 25 MG TAB PO SCH (16:39)
[2019-07-28] MEDS ORDERED: ATORVASTATIN 20 MG TAB PO SCH (21:00)
--- NOTE | 2019-07-28 21:30 | Consultation ---
DATE OF CONSULTATION: Cardiology Consultation CONSULTING PHYSICIAN: Hay Ospina MD, Interventional Cardiology HISTORY OF PRESENT ILLNESS: A 49-year-old man with frequent admissions to several hospitals with currently, history of anxiety, presents with complaint of chest discomfort radiating to the shoulder, associated with shortness of breath. The patient currently feels somewhat better. He is wheezing some audibly, but feels some improvements in his symptoms. He relates these to be similar to prior symptoms leading to hospital visits on several occasional within the last year. He is requesting pain medications. Denies fever. ROS: Twelve-system review is negative except for as noted above. PAST MEDICAL HISTORY: As per HPI. SOCIAL HISTORY: h/o smoking, denies drug use. FAMILY HISTORY: Noncontributory. PHYSICAL EXAMINATION: VITAL SIGNS: reviewed and stable GENERAL: In no acute distress. Alert. NECK: No JVD. No carotid bruits. CHEST: Scattered rhonchi and wheezing and decreased sounds in bilateral bases. CARDIOVASCULAR: Regular rate and rhythm. Normal S1 and S2. No S3 or S4. No murmurs, no rubs. ABDOMEN: Soft. Bowel sounds positive. EXTREMITIES: Trace edema, euthermic CARDIOVASCULAR MEDICATIONS: Reviewed. LABORATORY DATA: Studies reviewed. BNP 24, troponin I less than 0.001. Chest x-ray with cardiomegaly and pulmonary vascular prominence. COVID-19 is pending. Sodium 144, potassium 3.3, chloride 102, bicarbonate 24, BUN 16 ASSESSMENT: Atypical chest pain and shortness of breath in the setting of active wheezing on exam. The patient with history of chronic obstructive pulmonary disease, chronic diastolic heart failure, reported prior histories of myocardial infarction, coronary artery disease, cerebrovascular accident and aortic pathology reported. RECOMMENDATIONS: 1. Obtain CTA chest to exclude aortic pathology. 2. Trend cardiac biomarkers. 3. Obtain echocardiogram. Bedside review with preserved left ventricular systolic function seems normal 4. Inhalers per primary service 5. Resume home CV meds Hay Ospina MD AFV/MODL /[id number] MTDNiels
[2019-07-28] MEDS ORDERED: POTASSIUM CHLORIDE 20 MEQ TAB CR PO ONE (21:55)
[2019-07-29] VITALS: BP 105/65
--- NOTE | 2019-07-29 00:24 | NUR ---
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 EDUCATED PATIENT STATES LEADS DONT STAY ON HE DOESN'T WANT TO WEAR IT. NURSE TO CONTACT .
[2019-07-29] MEDS: HYDROMORPHONE 1MG/1ML INJ IV PRN ×3 (00:25→08:35)
[2019-07-29 04:00] VITALS: BP 109/62
--- NOTE | 2019-07-29 05:43 | NUR ---
PATIENT IS BEING RUDE TO STAFF. COMPLAINS OF CHEST PAIN AND SOB AND CONTINUES TO NOT WEAR MONITOR OR OXYGEN. EDUCATED PATIENT ON IMPORTANCE OF BOTH. SAYS HE IS NOT REFUSING TO WEAR THE MONITOR; HOWEVER, WILL NOT LET NURSE PUT MONITOR ON CHEST. WANTING TO SPEAK TO SENIOR ACCOUNTANT ANALYST. AGREED TO PUT OXYGEN ON.
[2019-07-29 05:46] LABS: ANION GAP 11.9 mmol/L (8-16); BLOOD UREA NITROGEN 14 mg/dL (7-26); BUN/CREATININE RATIO 16 (6-25); CALCIUM 8.7 mg/dL (8.4-10.2); CARBON DIOXIDE 25 mmol/L (22-29); CHLORIDE 105 mmol/L (98-107); CREATININE, SERUM 0.89 mg/dL (0.72-1.25); EST GLOMERULAR FILTRATION RATE > 60 ML/MIN (60-); GLUCOSE 126 mg/dL (74-118); POTASSIUM 3.9 mmol/L (3.5-5.1); SODIUM 138 mmol/L (136-145)
[2019-07-29] MEDS: SODIUM CHLORIDE 0.9% 1000ML 1,000 ML IV SCH (06:10)
--- NOTE | 2019-07-29 06:42 | NUR ---
paged dr león to try and get telemetry dc'd, awaiting call back.
--- NOTE | 2019-07-29 06:46 | NUR ---
spoke to dr león regarding telemetry. not to dc telemetry and to keep documenting patient is refusing telemetry. Ok to dc from cardiac standpoint.
--- NOTE | 2019-07-29 07:10 | NUR ---
RCD PT AT BED PT IS ALERT AND ORIENTED RESTING ON BED IV PATENT BY SALINE FLUSH PT REFUSED TELEY MONITOR BED LOW AND LOCKED CALL LIGHT IN REACH
[2019-07-29 07:51] VITALS: BP 114/77
[2019-07-29 07:53] VITALS: BP 114/77
[2019-07-29] MEDS: ISOSORBIDE MONONITRATE 30 MG TAB CR PO SCH (09:00)
[2019-07-29] MEDS: METOPROLOL TARTRATE 25 MG TAB PO SCH (09:00)
[2019-07-29] MEDS: FUROSEMIDE 40 MG TAB PO SCH (09:00)
--- NOTE | 2019-07-29 10:07 | Progress Note ---
DATE: 07/29/2019 SUBJECTIVE: Mr. Banda is a 49-year-old man with history of coronary artery disease, status post CABG, hypertension, hyperlipidemia, CHF, who came to the hospital complaining of chest pain radiated to his left arm and shortness of breath. He has been seen by electronic technologist. PHYSICAL EXAMINATION: GENERAL: Today, he is awake and alert. He states he is still with chest pain. VITAL SIGNS: Temperature is 98.2, blood pressure 114/77. HEART: Regular rate. LUNGS: Poor inspiratory effort. ABDOMEN: Distended and soft. LABORATORY DATA: On the blood work; white count 5.05, hemoglobin 12.7, hematocrit 38.4, potassium 3.9, creatinine 0.89, glucose 126. Cardiac enzymes; troponin has been negative. CPK has been elevated. Toxicology came back negative. Chest and thoracic CTA showed mild chronic cardiomegaly and pulmonary artery enlargement. Prior surgery involving the ascending thoracic aorta. No evidence of aortic aneurysm or dissection. No acute pulmonary abnormality. ASSESSMENT: 1. Chest pain with shortness of breath. 2. Coronary artery disease, status post coronary artery bypass graft. 3. Iktgm-gn-tgajhwx diastolic congestive heart failure. 4. History of aortic pathology. 5. Hypertension. 6. Hyperlipidemia. PLAN: At present time is to get a report of the echocardiogram to evaluate cardiac function and optimize medical treatment. All this was discussed with the patient. Questions were answered to satisfaction. Continue atorvastatin 40 mg daily, metoprolol 25 mg twice a day, furosemide 40 mg twice a day, and isosorbide 30 mg daily. MD VIVIANA Castro/TAYLORL /[id number]
--- NOTE | 2019-07-29 11:47 | NUR ---
AC TO DR SALGADO PT CAN GO HOME SO PAGED DR SANTIZO TO NOTIFY THAT
--- NOTE | 2019-07-29 11:52 | NUR ---
DR SANTIZO RETURNED THE CALL AND GOT THE DISCHARGE ORDER
[2019-07-29 12:00] VITALS: BP 112/57
--- NOTE | 2019-07-29 12:30 | NUR ---
PT WENT HOME IN SAFE CONDITION WITH TAXI
--- NOTE | 2019-07-29 18:44 | Progress Note ---
DATE: 07/29/2019 Cardiology Progress Note SUBJECTIVE: Denies chest pain or shortness of breath. Feels better overall. OBJECTIVE: VITAL SIGNS: Temperature 98.2, heart rate 71, blood pressure 114/77, respiratory rate 19, O2 saturation 99%, BMI 52. GENERAL: In no acute distress, alert. NECK: No JVD. CHEST: Clear to auscultation. CARDIOVASCULAR: Regular rate and rhythm. Normal S1, S2. No S3 or S4. No murmurs or rubs. ABDOMEN: Soft. Bowel sounds positive. EXTREMITIES: Trace edema. Warm extremities. CARDIOVASCULAR MEDICATIONS: Reviewed. Nitroglycerin p.r.n., isosorbide mononitrate 30 mg daily, atorvastatin 40 mg at bedtime, furosemide 40 mg b.i.d., metoprolol tartrate 25 mg b.i.d. LABORATORY DATA: Reviewed. Sodium 138, potassium 3.9, chloride 105, bicarbonate 25, BUN 14, creatinine 0.89, glucose 126. White blood cells 5, hemoglobin 12.7, platelets 200. INR 0.9. AST 19, ALT 25, alkaline phosphatase 63. ASSESSMENT AND PLAN: A 49-year-old man presents with: 1. Chronic obstructive pulmonary disease exacerbation in the setting of complaints of chest pain, shortness of breath. He has a history of drug-seeking behavior. 2. Hypertension. 3. Dyslipidemia. 4. History of aortic dissection, status post repair and reported history of coronary artery disease. RECOMMEND: 1. Continue current cardiovascular medications. On echocardiogram with preserved left ventricular systolic function, has ruled out for AMI. CT demonstrates stable aortic findings without acute dissection. 2. On exam yesterday with wheezing, today improved on inhalers. Okay to discharge from a cardiovascular standpoint once okay with other treating physicians. MD IAIN Morel/FREDY /[id number]
== END 2019-07-29 12:47 | disposition home or self-care (01) ==
LOC: ER 19:08 → ERHOLD 07-28 00:15 → MED/SURG2 07-28 02:56
PROVIDERS: ADMIT Internal Medicine; ATTEND Internal Medicine
DX: R07.89 Other chest pain (principal); I50.33 Acute on chronic diastolic (congestive) heart failure; J44.1 Chronic obstructive pulmonary disease with (acute) exacerbation; I11.0 Hypertensive heart disease with heart failure; E66.9 Obesity, unspecified; E78.5 Hyperlipidemia, unspecified; I25.10 Atherosclerotic heart disease of native coronary artery without angina pectoris; Z88.1 Allergy status to other antibiotic agents; Z88.5 Allergy status to narcotic agent; Z88.8 Allergy status to other drugs, medicaments and biological substances; Z95.1 Presence of aortocoronary bypass graft; Z72.0 Tobacco use; Z98.890 Other specified postprocedural states; Z68.43 Body mass index [BMI] 50.0-59.9, adult
CPT/HCPCS: 36415 ×3; 71045; 71275; 80048; 80053 ×2; 80307; 82550 ×2; 82553 ×2; 83880; 84484 ×2; 85025 ×2; 85610; 87635; 93005; 93306; 99284; G0378 ×2; J1170 ×2; J2550; J7030; J7050; Q9967